=== PATIENT | male | born 1945 | race Caucasian/White ===

== ENCOUNTER 2018-03-07 22:38 | Observation (INO) | payer OTHER ==
[2018-03-07 23:51] LABS: Absolute Lymphocytes (CBC) 1.3 K/uL (0.7-4.9); Absolute Monocytes 0.5 K/uL (0.1-1.3); Absolute Neutrophil 2.6 K/uL (1.8-8.0); Basophils % 0.7 % (0-1.3); Eosinophils % 1.9 % (0-4.4); Hematocrit 25.1 % (39.6-49.0); MCH 34.1 pg (27.0-35.0); MPV 9.4 fL (7.6-11.3); Monocytes % 10.4 % (3.3-12.3); RBC Red Blood Cell Count 2.51 M/uL (4.33-5.43)
--- NOTE | 2018-03-08 01:23 | EDPHYS ---
Physician Documentation [facility] Name: Zbigniew Mitchell Age: 72 yrs Sex: Male : 1945 Arrival Date: 03/07/2018 Time: 22:43 Bed 17 Private MD: ED Physician Shakir Medley HPI: 03/08 01:12 This 72 yrs old Male presents to ER via EMS with unknown complaint. gs 01:12 The patient or guardian reports pain, swelling. sustained from a fall, The patient is gs able to self ambulate. The patient is able to bear their full body weight. The complaints affect the left hip. Onset: The symptoms/episode began/occurred 2 day(s) ago. Modifying factors: the symptoms are aggravated by any movement. Associated signs and symptoms: Pertinent negatives: abdominal pain, headache. Severity of symptoms: At their worst the symptoms were moderate, in the emergency department the symptoms are unchanged. Historical: - Allergies: 03/07 23:05 No Known Allergies; fc - Home Meds: 23:05 acetaminophen 325 mg Oral tab 2 tabs q6hrs prn [Active]; Actonel 35 mg Oral tab 1 tab fc once wkly [Active]; Aricept 10 mg Oral tab 1 tab nightly [Active]; aspirin 81 mg oral chew 1 tab once daily [Active]; Depakote ER 500 mg Oral Tb24 2 tabs nightly [Active]; Depakote ER 500 mg Oral Tb24 1 tab once daily [Active]; Dilantin 100 mg Oral 2 tab twice a day [Active]; Eliquis 2.5 mg oral tab 1 tab 2 times per day [Active]; [place] 5-325 mg Oral tab 1 tab three times a day [Active]; Imodium Oral 2 mg as needed [Active]; lactulose 10 gram/15 mL Oral soln q day prn [Active]; metoprolol tartrate 50 mg Oral tab 1 tab once daily [Active]; Miralax 17 gram Oral pwpk 1 packet once daily [Active]; Mobic 7.5 mg oral tab 1 tab once daily [Active]; Neurontin 100 mg Oral cap nightly [Active]; Norvasc 2.5 mg Oral tab 1 tab twice a day [Active]; Protonix 40 mg oral TbEC 1 tab once daily [Active]; Seroquel 50 mg Oral tab 1 tab nightly [Active]; simvastatin 40 mg Oral tab 1 tab nightly [Active]; Synthroid 150 mcg Oral tab 1 tab once daily [Active]; acetaminophen-codeine 300-30 mg Oral tab 1 tab q 6hrs prn [Active]; Vitamin D Oral 2000 unit daily [Active]; - PMHx: 23:05 Dementia; 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 - Social history:: Smoking status: Patient/guardian denies using tobacco. - Ebola Screening: : Patient negative for fever greater than or equal to 101.5 degrees Fahrenheit, and additional compatible Ebola Virus Disease symptoms Patient denies exposure to infectious person Patient denies travel to an Ebola-affected area in the 21 days before illness onset. ROS: 03/08 01:12 All other systems are negative. gs Exam: 01:12 Head/Face: Normocephalic, atraumatic. Eyes: Pupils equal round and reactive to light, gs extra-ocular motions intact. Lids and lashes normal. Conjunctiva and sclera are non-icteric and not injected. Cornea within normal limits. Periorbital areas with no swelling, redness, or edema. ENT: Nares patent. No nasal discharge, no septal abnormalities noted. Tympanic membranes are normal and external auditory canals are clear. Oropharynx with no redness, swelling, or masses, exudates, or evidence of obstruction, uvula midline. Mucous membranes moist. Neck: Trachea midline, no thyromegaly or masses palpated, and no cervical lymphadenopathy. Supple, full range of motion without nuchal rigidity, or vertebral point tenderness. No Meningismus. Chest/axilla: Normal chest wall appearance and motion. Nontender with no deformity. No lesions are appreciated. Cardiovascular: Regular rate and rhythm with a normal S1 and S2. No gallops, murmurs, or rubs. Normal PMI, no JVD. No pulse deficits. Respiratory: Lungs have equal breath sounds bilaterally, clear to auscultation and percussion. No rales, rhonchi or wheezes noted. No increased work of breathing, no retractions or nasal flaring. Abdomen/GI: Soft, non-tender, with normal bowel sounds. No distension or tympany. No guarding or rebound. No evidence of tenderness throughout. Back: No spinal tenderness. No costovertebral tenderness. Full range of motion. Skin: Warm, dry with normal turgor. Normal color with no rashes, no lesions, and no evidence of cellulitis. Neuro: Awake and alert, GCS 15, oriented to person, place, time, and situation. Cranial nerves II-XII grossly intact. Motor strength 5/5 in all extremities. Sensory grossly intact. Cerebellar exam normal. Normal gait. 01:12 Constitutional: The patient appears alert, awake, pale. 01:12 Musculoskeletal/extremity: Joints: the left hip displays swelling, tenderness, ecchymosis. Vital Signs: 03/07 22:45 Weight 99.79 kg (R); Height 5 ft. 7 in. (170.18 cm) (R); Pain 6/10; fc 23:00 BP 116 / 62; Pulse 71; Resp 16 S; Temp 97.7(O); Pulse Ox 99% on R/A; jd3 03/08 00:36 BP 120 / 72; Pulse 72; Resp 17 S; Pulse Ox 100% on R/A; jd3 02:09 BP 116 / 99; Pulse 73; Resp 17 S; Pulse Ox 98% on R/A; jd3 03/07 22:45 Body Mass Index 34.46 (99.79 kg, 170.18 cm) fc MDM: 03/07 23:10 Patient medically screened. 03/08 01:12 Differential diagnosis: hip fracture, pelvic, fx hematoma, blood loss anemia. Data reviewed: vital signs, nurses notes. Response to treatment: the patient's symptoms have mildly improved after treatment, and as a result, I will admit patient. 01:23 ED course: will admit obs serial hb.. 03/07 23:10 Order name: CBC with Diff; Complete Time: 23:54 03/07 23:10 Order name: CT Pelvis wo Cont 03/07 23:10 Order name: Femur Left XRAY 03/08 01:06 Order name: CT Head Brain wo Cont Administered Medications: No medications were administered Disposition: 03/08/18 01:23 Hospitalization ordered by Jessika Nguyen for Observation. Preliminary diagnosis is Traumatic secondary and recurrent hemorrhage and seroma. - Bed requested for Telemetry/MedSurg (observation). - Status is Observation. jd3 - Condition is Stable. - Problem is new. - Symptoms are unchanged. UTI on Admission? No Signatures: Dispatcher [employer] EDMS Vin Cotto rg2 Christine Mccann RN RN Shakir Medley MD MD Warren Balderas RN RN jd3 Corrections: (The following items were deleted from the chart) 02:42 01:23 Hospitalization Ordered by Jessika Nguyen MD for Observation. Preliminary rg2 diagnosis is Traumatic secondary and recurrent hemorrhage and seroma. Bed requested for Telemetry/MedSurg (observation). Status is Observation. Condition is Stable. Problem is new. Symptoms are unchanged. UTI on Admission? No. 03:11 02:42 03/08/2018 01:23 Hospitalization Ordered by Jessika Nguyen MD for Observation. jd3 Preliminary diagnosis is Traumatic secondary and recurrent hemorrhage and seroma. Bed requested for Telemetry/MedSurg (observation). Status is Observation. Condition is Stable. Problem is new. Symptoms are unchanged. UTI on Admission? No. rg2
--- NOTE | 2018-03-08 01:23 | ER ---
Nurse's Notes [facility] Name: Zbigniew Mitchell Age: 72 yrs Sex: Male : 1945 Arrival Date: 03/07/2018 Time: 22:43 Bed 17 Private MD: Diagnosis: Traumatic secondary and recurrent hemorrhage and seroma Presentation: 03/07 22:45 Method Of Arrival: EMS: [facility] 22:45 Transition of care: patient was received from another setting of care (long-term care facility), [facility]. Onset of symptoms was March 05, 2018. Risk Assessment: Do you want to hurt yourself or someone else? Patient reports no desire to harm self or others. Initial Sepsis Screen: Does the patient meet any 2 criteria? No. Patient's initial sepsis screen is negative. Does the patient have a suspected source of infection? No. Patient's initial sepsis screen is negative. Care prior to arrival: None. 22:45 Acuity: ANDRE 4 22:45 Presenting complaint: EMS states: that the pt feel 2-3 days ago and hurt his left hip. fc The senior living xray'd it and it was negative. Pt continues to have pain and bruising so he was sent here for evaluation. Historical: - Allergies: 23:05 No Known Allergies; fc - Home Meds: 23:05 acetaminophen 325 mg Oral tab 2 tabs q6hrs prn [Active]; Actonel 35 mg Oral tab 1 tab fc once wkly [Active]; Aricept 10 mg Oral tab 1 tab nightly [Active]; aspirin 81 mg oral chew 1 tab once daily [Active]; Depakote ER 500 mg Oral Tb24 2 tabs nightly [Active]; Depakote ER 500 mg Oral Tb24 1 tab once daily [Active]; Dilantin 100 mg Oral 2 tab twice a day [Active]; Eliquis 2.5 mg oral tab 1 tab 2 times per day [Active]; [place] 5-325 mg Oral tab 1 tab three times a day [Active]; Imodium Oral 2 mg as needed [Active]; lactulose 10 gram/15 mL Oral soln q day prn [Active]; metoprolol tartrate 50 mg Oral tab 1 tab once daily [Active]; Miralax 17 gram Oral pwpk 1 packet once daily [Active]; Mobic 7.5 mg oral tab 1 tab once daily [Active]; Neurontin 100 mg Oral cap nightly [Active]; Norvasc 2.5 mg Oral tab 1 tab twice a day [Active]; Protonix 40 mg oral TbEC 1 tab once daily [Active]; Seroquel 50 mg Oral tab 1 tab nightly [Active]; simvastatin 40 mg Oral tab 1 tab nightly [Active]; Synthroid 150 mcg Oral tab 1 tab once daily [Active]; acetaminophen-codeine 300-30 mg Oral tab 1 tab q 6hrs prn [Active]; Vitamin D Oral 2000 unit daily [Active]; - PMHx: 23:05 Dementia; 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 - Social history:: Smoking status: Patient/guardian denies using tobacco. - Ebola Screening: : Patient negative for fever greater than or equal to 101.5 degrees Fahrenheit, and additional compatible Ebola Virus Disease symptoms Patient denies exposure to infectious person Patient denies travel to an Ebola-affected area in the 21 days before illness onset. Screenin:51 Abuse screen: Denies threats or abuse. Nutritional screening: No deficits noted. fc Tuberculosis screening: No symptoms or risk factors identified. Fall Risk Fall in past 12 months (25 points). Secondary diagnosis (15 points) dementia, No IV (0 pts). Ambulatory Aid- Crutches/Cane/Walker (15 pts). Gait- Weak (10 pts.). Mental Status- Overestimates/Forgets Limitations (15 pts.). Total Aleman Fall Scale indicates High Risk Score (45 or more points). Fall prevention measures have been instituted. Side Rails Up X 2 Placed Close to Nursing Station Frequent Obs/Assessments Occuring As available patient and family educated on Fall Prevention Program and Strategies. Assessment: 22:43 General: Appears in no apparent distress. uncomfortable, Behavior is calm, cooperative, jd3 appropriate for age. Pain: Complains of pain in left elbow, left hip and lateral aspect of left thigh Quality of pain is described as aching, tender, Is continuous. Neuro: Level of Consciousness is awake, alert, obeys commands, Oriented to person, place, time, situation. Cardiovascular: Heart tones S1 S2 present Capillary refill < 3 seconds Patient's skin is warm and dry. Respiratory: Airway is patent Respiratory effort is even, unlabored, Respiratory pattern is regular, symmetrical, Breath sounds are clear bilaterally. GI: Abdomen is round Bowel sounds present X 4 quads. Abd is soft and non tender X 4 quads. Patient currently denies nausea, vomiting. : No signs and/or symptoms were reported regarding the genitourinary system. EENT: No signs and/or symptoms were reported regarding the EENT system. Derm: Skin is intact, Skin is dry, Skin is normal, Skin temperature is warm Bruising that is dark purple, on left hip and lateral aspect of left thigh. Musculoskeletal: Circulation, motion, and sensation intact. Range of motion: limited in left hip. 03/08 00:20 Reassessment: Patient appears in no apparent distress at this time. Patient and/or jd3 family updated on plan of care and expected duration. Pain level reassessed. Patient is alert, oriented x 3, equal unlabored respirations, skin warm/dry/pink. 02:14 Reassessment: Patient appears in no apparent distress at this time. Patient and/or jd3 family updated on plan of care and expected duration. Pain level reassessed. Patient is alert, oriented x 3, equal unlabored respirations, skin warm/dry/pink. Vital Signs: 03/07 22:45 Weight 99.79 kg (R); Height 5 ft. 7 in. (170.18 cm) (R); Pain 6/10; 23:00 BP 116 / 62; Pulse 71; Resp 16 S; Temp 97.7(O); Pulse Ox 99% on R/A; d3 03/08 00:36 BP 120 / 72; Pulse 72; Resp 17 S; Pulse Ox 100% on R/A; jd3 02:09 BP 116 / 99; Pulse 73; Resp 17 S; Pulse Ox 98% on R/A; jd3 03/07 22:45 Body Mass Index 34.46 (99.79 kg, 170.18 cm) ED Course: 03/07 22:43 Patient arrived in ED. [facility] 22:45 Arm band placed on Patient placed in an exam room, on a stretcher. fc 22:50 Triage completed. fc 22:52 Patient has correct armband on for positive identification. Placed in gown. Bed in low fc position. Call light in reach. Side rails up X2. 22:58 Warren Balderas RN is Primary Nurse. jd3 23:05 Shakir Medley MD is Attending Physician. 23:59 CT Pelvis wo Cont In Process Unspecified. EDMS 23:[address] via stretcher. kw1 08 00:00 Patient moved to radiology via stretcher. kw1 00:00 X-ray completed. Patient tolerated procedure well. Patient moved back from radiology. kw1 00:02 Femur Left XRAY In Process Unspecified. EDMS 01:16 Jessika Nguyen MD is Hospitalizing Provider. gs 01:[address] via stretcher. kw1 01:40 CT completed. Patient tolerated procedure well. Patient moved back from CT. kw1 01:42 CT Head Brain wo Cont In Process Unspecified. EDMS 02:52 No provider procedures requiring assistance completed. Patient did not have IV access jd3 during this emergency room visit. Administered Medications: No medications were administered Outcome: 01:23 Decision to Hospitalize by Provider. 02:52 Admitted to Tele accompanied by tech, via stretcher, room 410, with chart, Report shaneka called to Daphney COHEN 02:52 Condition: stable 02:52 Instructed on the need for admit, Demonstrated understanding of instructions. 03:11 Patient left the ED. jclaudia Signatures: Dispatcher [employer] EDOR Christine Mccann RN RN Shakir Medley MD MD Warren Balderas RN RN jNorma Escoto kw1 Corrections: (The following items were deleted from the chart) 03/07 22:53 22:45 Transition of care: patient was not received from another setting of care. [facility] 22:59 22:43 Derm: Skin is intact, Skin is dry, Skin is normal, Skin temperature is warm jd3 Bruising that is on left hip and lateral aspect of left thigh jd3
[2018-03-08] MEDS ORDERED: ONDANSETRON 4 MG/2 ML VIAL IV PRN (02:38)
[2018-03-08] MEDS ORDERED: MORPHINE 2 MG/ML SYR IV PRN (02:38)
[2018-03-08] MEDS ORDERED: ACETAMINOPHEN 500 MG TAB PO PRN (02:38)
[2018-03-08 04:01] LABS: Absolute Lymphocytes (CBC) 1.3 K/uL (0.7-4.9); Absolute Monocytes 0.5 K/uL (0.1-1.3); Absolute Neutrophil 2.5 K/uL (1.8-8.0); Basophils % 0.7 % (0-1.3); Eosinophils % 2.1 % (0-4.4); Hematocrit 24.3 % (39.6-49.0); Lymphocytes % 30.5 % (15.3-44.8); MCH 35.2 pg (27.0-35.0); MCV 99.6 fL (80-100); MPV 9.3 fL (7.6-11.3); Monocytes % 10.4 % (3.3-12.3); RBC Red Blood Cell Count 2.44 M/uL (4.33-5.43)
[2018-03-08 04:02] LABS: Protime INR 1.05
[2018-03-08 04:10] LABS: Albumin 2.8 g/dL (3.4-5.0); Bilirubin Total 0.3 mg/dL (0.2-1.0); Potassium 4.9 mmol/L (3.5-5.1)
[2018-03-08 04:55] VITALS: BMI 34.4
[2018-03-08] MEDS: NA CHLORIDE 0.9% 1,000 ML IV SCH ×2 (04:55→16:52)
[2018-03-08 05:07] LABS: Urine Appearance CLEAR; Urine Bilirubin NEGATIVE (NEG); Urine Blood NEGATIVE (NEG); Urine Color YELLOW; Urine Glucose NEGATIVE (NEG); Urine Protein NEGATIVE (NEG); Urine Specific Gravity 1.015 (1.005-1.030); Urine Urobilinogen 0.2 mg/dL (0.2-1.0)
[2018-03-08 05:10] LABS: Urine Microscopic Reflex NO UMIC
[2018-03-08] MEDS: LEVOTHYROXINE SOD 0.075 MG TAB PO SCH ×2 (06:00→06:39)
--- NOTE | 2018-03-08 06:50 | RAD REPORT ---
EXAM DESCRIPTION: CT - Pelvis Wo Cont - 03/07/2018 11:59 pm CLINICAL HISTORY: Fall, left-sided hip pain COMPARISON: CT imaging December 2016. TECHNIQUE: Axial 5 mm thick images of the pelvis were obtained with sagittal and coronal reformatted images generated and reviewed. FINDINGS: In the lateral subcutaneous fat adjacent to the left greater trochanter there is an 12 x 8 x 5 centimeter hematoma. Additional contusion or edema changes seen throughout the subcutaneous fatt y tissues of the left side pelvis. No intramuscular hematoma. Left-sided gluteus tae muscle is ed ematous relative to the right. No hematoma or mass within the central pelvis. No free air or free fluid. Radiopaque tubing is presen t in the pelvis. This is part of a lap band that is not fully imaged on this examination. Arterial ca lcifications are present. No pelvis or proximal femur fracture identifiable. Patient has bilateral hip joint degenerative vivas e. Pattern is not substantially different from the December 2016 examination. Significant SI joint degene rative changes are present. Patient has severe L5-S1 facet joint degenerative change. There is signif icant L4-5 disc and endplate degenerative change. Degenerative gas is present in the L5-S1 disc space . No pathologic bone process. IMPRESSION: Large 12 x 8 x 5 cm hematoma with surrounding edema and contusion lateral to the left hi p joint. No pelvis or femur fracture identified. Patient has advanced lower lumbar degenerative change and mod erate SI joint degenerative change not substantially different from comparison.
--- NOTE | 2018-03-08 07:05 | RAD REPORT ---
EXAM DESCRIPTION: CT - Head Brain Wo Cont - 03/08/2018 1:42 am CLINICAL HISTORY: Fall, head injury A preliminary written report was provided at the time of the study, and the report was reviewed prio r to final dictation. COMPARISON: CT head September 2013 TECHNIQUE: Axial 5 mm thick images of the head were obtained without IV contrast. All CT scans are performed using dose optimization technique as appropriate and may include automated exposure control or mA/KV adjustment according to patient size. FINDINGS: No intracranial hemorrhage, mass, edema or shift of mid-line structures. No acute infarcti on changes seen. No cortical edema or sulcal effacement. Chronic ischemic changes are minimal. Atroph y is mild to moderate. Patient has ventriculomegaly out of proportion to the volume loss. There is a 3 centimeter cyst of the velum interpositum. A midline and right side craniectomy defects seen. No ac tive process at this site. Appearance is stable from 2013. Mastoid air cells and visualized portions of the paranasal sinuses are clear. No acute bony findings. IMPRESSION: No hemorrhage or emergent intracranial finding. Ventriculomegaly is present, out of proportion to the volume loss. Pattern is stable from 2013. Corre lation can be made with any normal pressure hydrocephalus clinical presentation. Overall, no significant change from 2014.
--- NOTE | 2018-03-08 07:46 | P.HP ---
Certification for Inpatient Patient admitted to: Observation With expected LOS: <2 Midnights Patient will require the following post-hospital care: None Practitioner: I am a practitioner with admitting privileges, knowledge of patient current condition, hospital course, and medical plan of care. Services: Services provided to patient in accordance with Admission requirements found in Title 42 Section 412.3 of the Code of Federal Regulations Patient History Date of Service: 03/08/18 Reason for admission: hematoma of the left hip History of Present Illness: Patient is a 72-year-old gentleman who came into the hospital after falling at [facility] about 48-72 hours ago. Since suffering the fall patient has been having bruising and discoloration around the left hip. Patient had x-rays performed which did not reveal a fracture. However, since of bruising and pain was worsening [facility] wanted to have a closer assessment performed. They sent him to the emergency room for further evaluation. In the emergency room, patient's x-ray did not reveal a new fracture. However, patient did have a large hematoma. The CT scan findings indicated a large 12 x 8 x 5 cm hematoma with surrounding edema and contusion lateral to the left hip joint. patient had been on Eliquis as well as aspirin. Patient has Alzheimer's dementia and is not really able to tell me exactly why this was started. On review of his medical records he has a history of atrial fibrillation with rapid ventricular response. Additional medical issues include hypertension, hypothyroidism, seizure disorder, depression, bipolar disorder, and chronic constipation. 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 Will continue him on his home medications and will have Orthopedic evaluate him. He may be able to go home later today depending on their evaluation. Allergies Penicillins Allergy (Verified 03/08/18 05:00) Anaphylaxis rabies bat serum Allergy (Uncoded 01/22/15 14:28) Rash Home Medications: Apixaban [Eliquis] 5 mg PO BID 01/22/15 Aspirin [Aspirin EC] 81 mg PO DAILY 01/22/15 Divalproex Sodium [Depakote ER] 1,000 mg PO BEDTIME 01/22/15 Divalproex [Depakote Sprinkle] 250 mg PO DAILY 01/22/15 Furosemide [Lasix] 60 mg PO DAILY 01/22/15 Lactulose 10 gm PO DAILY 01/22/15 Levothyroxine [Synthroid] 150 mcg PO [id number] 01/22/15 Meloxicam [Mobic] 15 mg PO DAILY 01/22/15 Metoprolol Tartrate [Lopressor] 50 mg PO DAILY 01/22/15 PHENYTOIN ER Cap [Dilantin ER Cap] 100 mg PO TID 01/22/15 Quetiapine [Seroquel] 100 mg PO DAILY 01/22/15 Sulfamethoxazole/Trimethoprim [Bactrim Ds Tablet] 1 each PO BID #10 tablet 01/23 Tramadol HCl/Acetaminophen [Ultracet Tablet] 1 each PO Q4H PRN #20 tablet - Past Medical/Surgical History Has patient received pneumonia vaccine in the past: No Diabetic: No -: Dementia; 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; cervicalgia; Chronic pain; constipation -: Atrial Fib; frequent falls; osteoarthritis -: Bronchitis; Hyperlipidemia; Bipolar disorder; encephalopathy; Diverticuliti -: Hypertension; Hypothyroidism; Seizures; Depression Past Surgical History: Unable to obtain - Family History Father Family History: Reviewed- Non-Contributory - Social History Smoking Status: Never smoker Alcohol use: No CD- Drugs: No Caffeine use: Yes Place of Residence: [facility] Review of Systems 10-point ROS is otherwise unremarkable Physical Examination - Vital Signs Temperature: 98.7 F Blood Pressure: 102/57 Pulse: 63 Respirations: 18 Pulse Ox (%): 100 - Physical Exam General: Alert, In no apparent distress, Oriented x3 HEENT: Atraumatic, PERRLA, Mucous membr. moist/pink, EOMI, Sclerae nonicteric Neck: Supple, 2+ carotid pulse no bruit, No LAD, Without JVD or thyroid abnormality Respiratory: Clear to auscultation bilaterally, Normal air movement Cardiovascular: Regular rate/rhythm, Normal S1 S2, No murmurs Gastrointestinal: Normal bowel sounds, Soft and benign, Non-distended, No tenderness Musculoskeletal: No clubbing, No swelling, No tenderness Integumentary: No rashes Neurological: Normal gait, Normal speech, Normal strength at 5/5 x4 extr, Normal tone, Sensation intact, Cranial nerves 3-12 intact, Normal affect Lymphatics: No axilla or inguinal lymphadenopathy - Studies Laboratory Data (last 24 hrs) 03/07/18 23:24: WBC 4.5, Hgb 8.6 L, Hct 25.1 L, Plt Count 152 Assessment & Plan - Problems (Diagnosis) (1) Traumatic hematoma of left hip Current Visit: Yes Status: Acute (2) Status post fall Current Visit: Yes Status: Acute (3) History of hypertension Current Visit: Yes Status: Acute (4) Alzheimer's dementia Current Visit: Yes Status: Acute (5) History of seizure disorder Current Visit: Yes Status: Acute - Plan Plan: 1. Monitor H&H 2. Orthopedic consultation 3. Pain control 4. physical therapy evaluation after orthopedic evaluation 5. hold Eliquis and aspirin for the next 48-72 hours 6. May need to consult Cardiology to see if this is something that patient needs to continue as he has a history of multiple falls. This is listed in his records that he has fallen numerous times and my concern is that while he is on the Eliquis he has the high risk of severe injury and life-threatening of bleed. Will consult Cardiology and discuss the case with them as well. 7. GI and DVT prophylaxis Discharge Plan: Home Plan to discharge in: 48 Hours - Advance Directives Does patient have a Living Will: No Does patient have a Durable POA for Healthcare: No - Code Status/Comfort Care Code Status Assessed: Yes Code Status: Full Code Critical Care: No Time Spent Managing PTS Care (In Minutes): 50
[2018-03-08] MEDS ORDERED: PNEUMOCOCCAL VACCINE 0.5 ML IMVAC ONE (08:00)
--- NOTE | 2018-03-08 08:31 | RAD REPORT ---
EXAM DESCRIPTION: RAD - Femur Left - 03/08/2018 12:01 am CLINICAL HISTORY: Fall, hip, pelvis and leg pain COMPARISON: None. FINDINGS: No fracture is identified. There is no dislocation or periosteal reaction noted. No acute or suspicious bony finding. Moderate degenerative change present at the hip joint. No pathologic bon e process. Moderately large hematoma is present lateral to the greater trochanter. There is additional contusion or edema in the subcutaneous fatty tissue. IMPRESSION: Moderately large hematoma lateral to the greater trochanter in the subcutaneous fat. Degenerative changes at the hip joint. No fracture or acute finding.
[2018-03-08] MEDS: METOPROLOL TAR 50 MG TAB PO SCH (09:00)
[2018-03-08] MEDS ORDERED: DIVALPROEX NA 125 MG CAP PO SCH (09:00)
[2018-03-08] MEDS: QUETIAPINE 100MG TAB PO SCH (09:00)
[2018-03-08] MEDS ORDERED: PHENYTOIN ER 100 MG CAP PO SCH (09:00)
[2018-03-08] MEDS ORDERED: LABETALOL HCL 100 MG/20 ML IV PRN (10:19)
[2018-03-08] MEDS: PHENYTOIN NA 100 MG/2 ML IV SCH ×2 (11:18→14:08)
[2018-03-08] MEDS ORDERED: ATORVASTATIN 20 MG TAB PO SCH (21:00)
[2018-03-08] MEDS ORDERED: VALPROATE SODIUM INJ 1,000 MG in NA CHLORIDE 0.9% 100 ML IV SCH (21:00)
[2018-03-08] MEDS ORDERED: DONEPEZIL HCL 5 MG TAB PO SCH (21:00)
[2018-03-08] MEDS ORDERED: DIVALPROEX ER 250 MG TAB PO SCH (21:00)
[2018-03-08] MEDS ORDERED: GABAPENTIN 100 MG CAP PO SCH (21:00)
[2018-03-08] MEDS: PHENYTOIN ER 100 MG CAP PO SCH (22:37)
[2018-03-08] MEDS: HYDROCODONE/APAP 5/325 MG TAB PO SCH (22:37)
[2018-03-08] MEDS: AMLODIPINE 2.5 MG TAB PO SCH (22:38)
[2018-03-09] MEDS ORDERED: TEMAZEPAM 15 MG CAP PO ONE (01:00)
--- NOTE | 2018-03-09 02:11 | CON ---
Date of Consultation: 03/08/2018 Reason For Consultation: Left hip pain and swelling. History Of Present Illness: Zbigniew is a 72-year-old male, who presented to the ER last night with c omplaints of pain and swelling to his left hip. The patient had x-rays which were negative for any f racture dislocation. The patient did have a CAT scan which demonstrated a hematoma over his left lat eral thigh. He denies any fever or chills. However, history is poor secondary to dementia. He does not recall when the pain or swelling began. Review of Systems: As above, otherwise negative. Past Medical History: Includes dementia, atrial fibrillation, seizures, bipolar disorder, hypertensi on, and hyperlipidemia. Family History: Reviewed and noncontributory. Medications: Includes Eliquis. Allergies: TO PENICILLIN. Physical Examination: General: No apparent distress. HEENT: Normocephalic, atraumatic. Neck: Supple. Cardiovascular: Brisk cap refill to all digits. Chest: Nonlabored breathing. Abdomen: Nondistended. Musculoskeletal: Left lower extremity, he does have some ecchymosis over the lateral hip. No erythe ma or signs of infection. No warmth. Minimal tenderness to palpation. No pain with range of motion of the left hip. Moves toes and ankle grossly distally. Imaging: X-rays of the left hip are negative for any fracture, dislocation. CAT scan demonstrates a hematoma just lateral to the greater trochanter. Laboratory Data: White count 4.4, hemoglobin 8.6, hematocrit 24.3, and platelets are 143. PT is 12. 4, INR 1.05. Assessment And Plan: Mr. Mitchell is a 72-year-old male with a left hip hematoma. At this point, there a re no signs of infection. He has a normal white count and he is afebrile. I recommend continued obs ervation. If he has continued swelling or if his hemoglobin drops, he may need to stop his anticoagu lation. He may be weightbearing as tolerated and may follow up in my clinic in 2 weeks for re-evalua tion. CV/MODL Voice ID: [id number] Report ID: [id number]
[2018-03-09] MEDS: LEVOTHYROXINE SOD 0.075 MG TAB PO SCH (05:38)
[2018-03-09] MEDS: NA CHLORIDE 0.9% 1,000 ML IV SCH (05:39)
[2018-03-09] MEDS ORDERED: PANTOPRAZOLE 40MG TABLET PO SCH (06:30)
[2018-03-09] MEDS ORDERED: HOME MED 1 EA UNK (Divalproex Sodium [Depakote Er] 500 MG) PO SCH (09:00)
[2018-03-09] MEDS ORDERED: VALPROATE SODIUM INJ 250 MG in NA CHLORIDE 0.9% 100 ML IV SCH (09:00)
[2018-03-09 09:25] VITALS: TEMP 97.7
[2018-03-09] MEDS: PHENYTOIN ER 100 MG CAP PO SCH (10:30)
[2018-03-09] MEDS: QUETIAPINE 100MG TAB PO SCH (10:31)
[2018-03-09] MEDS: AMLODIPINE 2.5 MG TAB PO SCH (10:31)
[2018-03-09] MEDS: HYDROCODONE/APAP 5/325 MG TAB PO SCH (10:31)
[2018-03-09] MEDS: METOPROLOL TAR 50 MG TAB PO SCH (10:32)
[2018-03-09 12:09] VITALS: BP 95/48
[2018-03-09 12:20] VITALS: O2SAT 97
--- NOTE | 2018-03-09 14:26 | P.SSS ---
Patient History Date of Service: 03/09/18 Reason for admission: hematoma of the left hip History of Present Illness: Patient is a 72-year-old gentleman who came into the hospital after falling at [facility] about 48-72 hours ago. Since suffering the fall patient has been having bruising and discoloration around the left hip. Patient had x-rays performed which did not reveal a fracture. However, since of bruising and pain was worsening [facility] wanted to have a closer assessment performed. They sent him to the emergency room for further evaluation. In the emergency room, patient's x-ray did not reveal a new fracture. However, patient did have a large hematoma. The CT scan findings indicated a large 12 x 8 x 5 cm hematoma with surrounding edema and contusion lateral to the left hip joint. patient had been on Eliquis as well as aspirin. Patient has Alzheimer's dementia and is not really able to tell me exactly why this was started. On review of his medical records he has a history of atrial fibrillation with rapid ventricular response. Additional medical issues include hypertension, hypothyroidism, seizure disorder, depression, bipolar disorder, and chronic constipation. 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 Will continue him on his home medications and will have Orthopedic evaluate him. He may be able to go home later today depending on their evaluation. Allergies Penicillins Allergy (Verified 03/08/18 05:00) Anaphylaxis rabies bat serum Allergy (Uncoded 01/22/15 14:28) Rash Home Medications: Apixaban [Eliquis] 2.5 mg PO BID 01/22/15 Aspirin [Aspirin EC 81 MG] 81 mg PO DAILY 01/22/15 Divalproex Sodium [Depakote ER] 1,000 mg PO BEDTIME 01/22/15 Levothyroxine [Synthroid*] 150 mcg PO [id number] 01/22/15 Meloxicam [Mobic] 7.5 mg PO DAILY 01/22/15 Metoprolol Tartrate [Lopressor*] 50 mg PO DAILY 01/22/15 Quetiapine [Seroquel*] 50 mg PO BEDTIME 01/22/15 Acetaminophen [Pain Relief] 2 tab PO Q6H PRN 03/08/18 Amlodipine [Norvasc*] 2.5 mg PO BID 03/08/18 Divalproex Sodium [Depakote ER] 500 mg PO DAILY 03/08/18 Donepezil [Aricept*] 10 mg PO BEDTIME 03/08/18 Gabapentin [Neurontin*] 100 mg PO BEDTIME 03/08/18 Hydrocodone Bit/Acetaminophen [Hydrocodon-Acetaminophen 5-325] 1 tab PO TID PHENYTOIN ER Cap [Dilantin ER Cap*] 2 cap PO BID 03/08/18 Pantoprazole Sodium [Protonix] 40 mg PO DAILY 03/08/18 Risedronate Sodium [Actonel*] 35 mg PO EVERY 7TH DAY 03/08/18 Simvastatin 40 mg PO BEDTIME 03/08/18 - Past Medical/Surgical History Has patient received pneumonia vaccine in the past: No Diabetic: No -: Dementia; 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; cervicalgia; Chronic pain; constipation -: Atrial Fib; frequent falls; osteoarthritis -: Bronchitis; Hyperlipidemia; Bipolar disorder; encephalopathy; Diverticuliti -: Hypertension; Hypothyroidism; Seizures; Depression - Social History Smoking Status: Never smoker Alcohol use: No CD- Drugs: No Caffeine use: Yes Place of Residence: [facility] Review of Systems General: As per HPI Physical Examination - Vital Signs Temperature: 97.7 F Blood Pressure: 95/48 Pulse: 75 Respirations: 17 Pulse Ox (%): 97 - Physical Exam General: Alert, In no apparent distress HEENT: Atraumatic, PERRLA, Mucous membr. moist/pink, EOMI, Sclerae nonicteric Neck: Supple, 2+ carotid pulse no bruit, No LAD, Without JVD or thyroid abnormality Respiratory: Clear to auscultation bilaterally, Normal air movement Cardiovascular: Regular rate/rhythm, Normal S1 S2 Gastrointestinal: Normal bowel sounds, No tenderness Musculoskeletal: No tenderness Integumentary: No rashes Neurological: Normal gait, Normal speech, Normal strength at 5/5 x4 extr, Normal tone, Normal affect Lymphatics: No axilla or inguinal lymphadenopathy - Diagnosis (Problem(s)) (1) Traumatic hematoma of left hip Onset Date: 03/08/18 Status: Acute (2) Status post fall Onset Date: 03/08/18 Status: Acute (3) Alzheimer's dementia Onset Date: 03/08/18 Status: Acute (4) History of hypertension Onset Date: 03/08/18 Status: Acute (5) History of seizure disorder Onset Date: 03/08/18 Status: Acute Treatment Summary: Overall during hospital stay patient remained stable. Patient was initially admitted to the hospital status post fall. Patient had traumatic hematoma of the hip. Orthopedic surgery was consulted. Who stated that we just monitor patient's H&H nothing surgical at this point. Patient did mention H remained stable and thus patient was discharged at that time. Under stable condition. Patient was sent back to the custodial. Was asked to follow up with orthopedics in about 1-2 weeks post discharge. - Disposition Disposition: ROUTINE DISCHARGE Condition: GOOD Patient Discharge Instructions: Please F.u with PCP in 1 to 2 week post discharge. You will need to get H/H done in 3 days to ensure your Hgb is not getting worse. Diet: Regular Activity: Ad thierry
[2018-03-14] MEDS ORDERED: RISEDRONATE SODIUM 35 MG TAB PO SCH (09:00)
== END 2018-03-09 13:07 ==
LOC: ER 22:38 → ERHOLD 03-08 02:23 → 4TH 03-08 02:48
PROVIDERS: ADMIT Hospitalist; ATTEND Hospitalist
DX: S70.02XA Contusion of left hip, initial encounter (principal); W18.30XA Fall on same level, unspecified, initial encounter; Y92.199 Unspecified place in other specified residential institution as the place of occurrence of the external cause; G30.9 Alzheimer's disease, unspecified; F02.80 Dementia in other diseases classified elsewhere, unspecified severity, without behavioral disturbance, psychotic disturbance, mood disturbance, and anxiety; I48.91 Unspecified atrial fibrillation; I10 Essential (primary) hypertension; E03.9 Hypothyroidism, unspecified; G40.909 Epilepsy, unspecified, not intractable, without status epilepticus; F31.9 Bipolar disorder, unspecified; Z88.0 Allergy status to penicillin; Z79.82 Long term (current) use of aspirin
CPT/HCPCS: 36415; 70450; 72192; 73552; 80053; 81003; 85025 ×2; 85610; 85730; 86850; 86900; 86901; 99285; G0378 ×2; J1165 ×2; J2270; J2405; J7030 ×3

== ENCOUNTER 2019-10-19 19:25 | Emergency (ER) | payer OTHER ==
--- NOTE | 2019-10-19 19:56 | RAD REPORT ---
EXAM DESCRIPTION: CT - [id number] - 10/19/2019 7:45 pm CLINICAL HISTORY: Trauma, head and neck injury. TRAUMA COMPARISON: No comparisons TECHNIQUE: Axial 5 mm thick images of the head were obtained. Axial 2 mm thick images of the cervical spine were obtained with sagittal and coronal reconstruction images generated and reviewed. All CT scans are performed using dose optimization technique as appropriate and may include automated exposure control or mA/KV adjustment according to patient size. FINDINGS: CT HEAD WITHOUT CONTRAST: No acute hemorrhage, hydrocephalus or extra-axial collection is identified.Moderate brain atrophy.No areas of brain edema or midline shift. The paranasal sinuses and mastoids are clear.Craniectomy changes are present posteriorly. CT CERVICAL SPINE WITHOUT CONTRAST: No fracture or subluxation.Mild multilevel degenerative changes are noted.No prevertebral soft tissue s swelling is identified. IMPRESSION: No acute intracranial or cervical spine findings.
[2019-10-19] MEDS ORDERED: NA CHLORIDE 0.9% 1,000 ML ONE (19:57)
[2019-10-19] MEDS ORDERED: CEFTRIAXONE/SWI 1gm 1 GM/10 ML SYR ONE (19:57)
--- NOTE | 2019-10-19 21:03 | RAD REPORT ---
EXAM DESCRIPTION: RAD - Chest Single View - 10/19/2019 8:54 pm CLINICAL HISTORY: CONGESTION Chest pain. COMPARISON: No comparisons FINDINGS: Portable technique limits examination quality. The lungs are grossly clear. The heart is normal in size. No displaced fractures. IMPRESSION: No acute intrathoracic process suspected.
--- NOTE | 2019-10-19 21:05 | RAD REPORT ---
EXAM DESCRIPTION: RAD - Shoulder Right 2 View - 10/19/2019 8:54 pm CLINICAL HISTORY: PAIN Trauma, pain COMPARISON: Head C Spine Mpr Wo Con dated 10/19/2019 FINDINGS: No fractures appreciated. No evidence of dislocation.
[2019-10-19 21:26] LABS: Absolute Lymphocytes (CBC) 1.2 K/uL (0.7-4.9); Basophils % 0.8 % (0-1.3); Hematocrit 45.8 % (39.6-49.0); Lymphocytes % 17.4 % (15.3-44.8); MPV 7.9 fL (7.6-11.3)
[2019-10-19 21:28] LABS: Blood Morphology Comment NOT SEEN (NOT SEEN); Platelet Estimate ADEQ; Urine White Blood Cell Casts OK
[2019-10-19 21:50] LABS: Protime INR 1.27
[2019-10-19 21:55] LABS: ALT/SGPT 18 U/L (12-78); AST/SGOT 17 U/L (15-37); Albumin 2.4 g/dL (3.4-5.0); Alkaline Phosphatase 95 U/L (45-117); BUN Blood Urea Nitrogen 21 mg/dL (7-18); Bicarbonate 28 mmol/L (21-32); Bilirubin Total 0.3 mg/dL (0.2-1.0); Glucose Level 81 mg/dL (74-106); Potassium 4.3 mmol/L (3.5-5.1); Sodium Level 140 mmol/L (136-145); Troponin (Emerg Dept Use Only) < 0.02 ng/mL (0.0-0.045)
--- NOTE | 2019-10-19 23:20 | ER ---
Nurse's Notes [facility] Name: Zbigniew Mitchell Age: 74 yrs Sex: Male : 1945 Arrival Date: 10/19/2019 Time: 19:30 Bed 8 Private MD: Diagnosis: Fall (on) (from) unspecified stairs and steps Presentation: 10/18 19:22 Care prior to arrival: None. Mechanism of Injury: Fall out of bed. Trauma event rr5 details: Injury occurred in the [facility] [place], Injury occurred: [facility] Injury occurred: October 19, 2019. 19:25 Chief complaint: Patient states: patient form [facility], had a fall episode. seen rr5 on the ground by staff don't know how long he was on the ground. patient has episode of short term memory loss, confused. complaining of neck pain for 3 days and headache for 1 week. on blood thinner (eliquis). BP on the lower side 90/50 mmHg NS 250ml bolus given. 19:25 Coronavirus screen: Patient denies fever greater than 100.4F, cough, shortness of rr5 breath, or difficulty breathing. Proceed with normal triage process. Ebola Screen: Patient negative for fever greater than or equal to 101.5 degrees Fahrenheit, and additional compatible Ebola Virus Disease symptoms Patient denies exposure to infectious person. Patient denies travel to an Ebola-affected area in the 21 days before illness onset. Initial Sepsis Screen: Does the patient meet any 2 criteria? No. Patient's initial sepsis screen is negative. Does the patient have a suspected source of infection? No. Patient's initial sepsis screen is negative. Risk Assessment: Do you want to hurt yourself or someone else? Patient reports no desire to harm self or others. Onset of symptoms was October 19, 2019. Transition of care: patient was received from another setting of care (long-term care facility), [facility]. 19:25 Method Of Arrival: EMS: [facility] rr5 19:25 Acuity: ANDRE 2 rr5 Trauma Activation: Alert Physician: ED Physician; Name: dr. marks; Notified At: 19:22; Arrived At: 19:22 Physician: General Surgeon; Name: ; Notified At: 19:22; Arrived At: Physician: Radiology; Name: janaeshelton valladares; Notified At: 19:22; Arrived At: 19:22 Physician: Respiratory; Name: ; Notified At: 19:22; Arrived At: Physician: Lab; Name: ; Notified At: 19:22; Arrived At: Historical: - Allergies: 20:04 No Known Allergies; rr5 - Home Meds: 19:30 acetaminophen 325 mg Oral tab 2 tabs q6hrs prn [Active]; acetaminophen-codeine 300-30 rr5 mg Oral tab 1 tab q 6hrs prn [Active]; Actonel 35 mg Oral tab 1 tab once wkly [Active]; Aricept 10 mg Oral tab 1 tab nightly [Active]; aspirin 81 mg Oral chew 1 tab once daily [Active]; Depakote ER 500 mg Oral Tb24 2 tabs nightly [Active]; Depakote ER 500 mg Oral Tb24 1 tab once daily [Active]; Dilantin 100 mg Oral 2 tab twice a day [Active]; Eliquis 2.5 mg Oral tab 1 tab 2 times per day [Active]; Imodium Oral 2 mg as needed [Active]; lactulose 10 gram/15 mL Oral soln q day prn [Active]; metoprolol tartrate 50 mg Oral tab 1 tab once daily [Active]; Miralax 17 gram Oral pwpk 1 packet once daily [Active]; Mobic 7.5 mg Oral tab 1 tab once daily [Active]; Neurontin 100 mg Oral cap nightly [Active]; Homeland 5-325 mg Oral tab 1 tab three times a day [Active]; Protonix 40 mg Oral TbEC 1 tab once daily [Active]; Norvasc 2.5 mg Oral tab 1 tab twice a day [Active]; Seroquel 50 mg Oral tab 1 tab nightly [Active]; simvastatin 40 mg Oral tab 1 tab nightly [Active]; Synthroid 150 mcg Oral tab 1 tab once daily [Active]; Vitamin D Oral 2000 unit daily [Active]; - PMHx: 19:30 Atrial Fib; Bipolar disorder; Bronchitis; Cervicalgia; Chronic pain; constipation; 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 - Social history:: Smoking status: unknown Patient/guardian denies using alcohol, street drugs, The patient lives with family. - Immunization history: Last tetanus immunization: unknown. - Family history:: not pertinent. Screenin:25 Fall Risk Fall in past 12 months (25 points). IV access (20 points). Total Aleman Fall rr5 Scale indicates High Risk Score (45 or more points). Fall prevention measures have been instituted. Side Rails Up X 2 Placed Close to Nursing Station Frequent Obs/Assessments Occuring As available patient and family educated on Fall Prevention Program and Strategies. 19:25 Nutritional screening: No deficits noted. rr5 19:35 Abuse screen: Denies threats or abuse. Denies injuries from another. Tuberculosis rr5 screening: No symptoms or risk factors identified. Primary Survey: 19:30 NO uncontrolled hemorrhage observed. rr5 19:30 A: The patient is alert. Airway: patent, No supplemental oxygen in use on arrival. Oral rr5 cavity: clear, gag reflex present, Trachea midline. Breathing/Chest: Respiratory pattern: regular, Respiratory effort: spontaneous, unlabored, Breath sounds: clear, bilaterally. Chest inspection: symmetrical rise and fall of the chest. Circulation: Heart tones present. Pulses: palpable right radial artery, right dorsalis pedis artery, left radial artery and left dorsalis pedis artery. Skin color: pink, Skin temperature: warm, dry. Disability Alert. Exposure/Environment: All clothing and personal items were removed. There is no evidence of uncontrolled external bleeding. Obvious injury(ies) are noted at this time: patient reported neck pain and back pain. A warming method has been applied: A warm blanket has been provided to the patient. 20:30 Reassessment Airway Airway Patent Breathing/Chest Respiratory pattern Regular rr5 Respiratory effort Spontaneous Unlabored Breath sounds Clear Chest inspection Symmetrical Circulation Heart tones Present Pulses Palpable Color [place] Disability Alert. Secondary Survey: 19:30 HEENT: Head No injury/deformity Face No injury/deformity Eyes: No injury or deformity rr5 noted. to bilateral eyes. Ears: clear bilaterally. Nose: clear to bilateral nares. Throat: is clear with gag reflex present. Gastrointestinal: Abdomen is soft. : No signs and/or symptoms were reported regarding the genitourinary system. Musculoskeletal: Capillary refill < 3 seconds, Reports pain in neck and back pain. Assessment: 19:25 General: Appears in no apparent distress. comfortable, Behavior is calm, cooperative, rr5 drowsy. Pain: Denies pain. Complains of pain in head, neck and back Unable to use pain scale. 19:25 Neuro: Level of Consciousness is awake, alert, obeys commands, Oriented to person, rr5 place. Cardiovascular: Capillary refill < 3 seconds Patient's skin is warm and dry. Respiratory: Airway is patent Respiratory effort is even, unlabored, Respiratory pattern is regular, symmetrical. GI: No signs and/or symptoms were reported involving the gastrointestinal system. : No signs and/or symptoms were reported regarding the genitourinary system. EENT: No signs and/or symptoms were reported regarding the EENT system. Derm: Skin is intact, is healthy with good turgor, Skin temperature is warm. Musculoskeletal: Capillary refill < 3 seconds, Reports pain in head, neck and back. 19:40 Reassessment: Patient appears in no apparent distress at this time. send to CT scan per [facility] stretcher assisted by CT staff. 20:04 Reassessment: call made to [facility] rajat confirm for the allergy history "No [facility] known allergy". 20:25 Reassessment: laboratory staff said she will send someone to do the blood test, CN [facility] aware. 20:40 Reassessment: Patient appears in no apparent distress at this time. missed attempt from [facility] the laboratory for the blood test. CN informed. 21:55 Reassessment: Patient appears in no apparent distress at this time. waiting for rr5 results. vitally stable. 23:20 Reassessment: voided freely on the bed, after care done diaper changed. rr5 23:40 Reassessment: Patient appears in no apparent distress at this time. patient refused for rr5 straight catheter. complaining of neck back pain. ED provider informed with order made and carried out. 23:50 Reassessment: crm campaign manager imtiaz called [facility] to arrange transport, patient is rr5 discharge. 10/19 00:58 Reassessment: follow up to [facility] the transport she said we cannot provide the [facility] transport at this time, will arrange in the morning. 02:00 Reassessment: voided freely specimen collected. ED provider informed for the result, no rr5 need to send in laboratory. 03:30 Reassessment: Patient appears in no apparent distress at this time. No changes from rr5 previously documented assessment. 05:41 Reassessment: Patient appears in no apparent distress at this time. eyes close rr5 breathing spontaneously at room air. 06:26 Reassessment: Patient appears in no apparent distress at this time. diaper changed rr5 voided freely. awaiting for [facility] transport going back to [place]. 07:23 Reassessment: follow up to [facility] staff nurse kadie for the transport she said rr5 around [id number]. 07:50 Reassessment: Pt resting in bed with eyes closed, easy to arouse to verbal stimuli. Pt aa5 is A\\T\\O x person, place, and situation. Respirations even and unlabored, skin is pink/warm/dry. Pt c/o pain all over upon repositioning. Pt notified of wait time for transport back to [facility], pt verbalized understanding. . 08:30 Reassessment: Patient is alert, oriented x 3, equal unlabored respirations, skin aa5 warm/dry/pink. Pt sitting up in bed, pt given soda to drink. Awaiting transportation back to [facility]. . 09:20 Reassessment: Patient is alert, oriented x 3, equal unlabored respirations, skin aa5 warm/dry/pink. Vital Signs: 10/18 19:25 BP 119 / 79; Pulse 62; Resp 16; Temp 97.7; Pulse Ox 94% ; rr5 20:12 BP 115 / 70; Pulse 58; Resp 17; Pulse Ox 97% ; rr5 21:30 BP 126 / 72; Pulse 58; Resp 14; Pulse Ox 98% on R/A; rr5 22:30 BP 132 / 72; Pulse 60; Resp 16; Temp 98; Pulse Ox 99% on R/A; rr5 23:30 BP 143 / 90; Pulse 68; Resp 17; Temp 97.5; Pulse Ox 98% ; Weight 90.72 kg; rr5 10/19 00:30 BP 115 / 65; Pulse 62; Resp 16; Pulse Ox 97% ; rr5 02:00 BP 116 / 70; Pulse 60; Resp 19; Pulse Ox 99% on R/A; rr5 03:30 BP 106 / 66; Pulse 65; Resp 16; Pulse Ox 97% ; rr5 05:30 BP 105 / 70; Pulse 61; Resp 18; Pulse Ox 98% on R/A; rr5 06:27 BP 134 / 95; Pulse 65; Resp 16; Temp 97.7; Pulse Ox 98% ; rr5 07:25 BP 122 / 88; Pulse 67; Resp 16 S; Temp 97.6(TE); Pulse Ox 98% on R/A; aa5 08:25 BP 126 / 84; Pulse 65; Resp 18 S; Pulse Ox 98% on R/A; aa5 Union Coma Score: 10/18 19:30 Eye Response: spontaneous(4). Verbal Response: confused(4). Motor Response: obeys rr5 commands(6). Total: 14. 20:12 Eye Response: to voice(3). Verbal Response: oriented(5). Motor Response: obeys rr5 commands(6). Total: 14. 21:30 Eye Response: to voice(3). Verbal Response: oriented(5). Motor Response: obeys rr5 commands(6). Total: 14. 22:30 Eye Response: to voice(3). Verbal Response: oriented(5). Motor Response: obeys rr5 commands(6). Total: 14. 23:30 Eye Response: to voice(3). Verbal Response: oriented(5). Motor Response: obeys rr5 commands(6). Total: 14. 10/19 00:30 Eye Response: to voice(3). Verbal Response: oriented(5). Motor Response: obeys rr5 commands(6). Total: 14. 02:00 Eye Response: to voice(3). Verbal Response: oriented(5). Motor Response: obeys rr5 commands(6). Total: 14. Trauma Score (Adult): 10/18 19:30 Eye Response: spontaneous(1); Verbal Response: confused(1); Motor Response: obeys rr5 commands(2); Systolic BP: > 89 mm Hg(4); Respiratory Rate: 10 to 29 per min(4); Alivia Score: 14; Trauma Score: 12 23:30 Eye Response: to voice(0); Verbal Response: oriented(1); Motor Response: obeys rr5 commands(2); Systolic BP: > 89 mm Hg(4); Respiratory Rate: 10 to 29 per min(4); Alivia Score: 14; Trauma Score: 11 10/19 02:00 Eye Response: to voice(0); Verbal Response: oriented(1); Motor Response: obeys rr5 commands(2); Systolic BP: > 89 mm Hg(4); Respiratory Rate: 10 to 29 per min(4); Alivia Score: 14; Trauma Score: 11 07:25 Eye Response: spontaneous(1); Verbal Response: oriented(1); Motor Response: obeys aa5 commands(2); Systolic BP: > 89 mm Hg(4); Respiratory Rate: 10 to 29 per min(4); Alivia Score: 15; Trauma Score: 12 08:25 Eye Response: spontaneous(1); Verbal Response: oriented(1); Motor Response: obeys aa5 commands(2); Systolic BP: > 89 mm Hg(4); Respiratory Rate: 10 to 29 per min(4); Union Score: 15; Trauma Score: 12 ED Course: 10/18 19:25 Arm band placed on right wrist. rr5 19:25 Thermoregulation: warm blanket given to patient. rr5 19:30 Patient arrived in ED. lp1 19:30 Jamison Hernandez PA is PHCP. jr8 19:30 Jessika Huitron MD is Attending Physician. jr8 19:30 Maintain EMS IV. Dressing intact. Good blood return noted. Site clean \\T\\ dry. Gauge \\T\\ rr 5 site: G 20 right FA. 19:31 Patient has correct armband on for positive identification. Placed in gown. Bed in low rr5 position. Call light in reach. Side rails up X2. Patient maintains SpO2 saturation greater than 95% on room air. 19:31 surveillance system monitor on. Pulse ox on. NIBP on. rr5 19:39 Nick Muniz, NOEL is Primary Nurse. rr5 19:46 Triage completed. rr5 19:50 Head C Spine Mpr Wo Con In Process Unspecified. EDMS 20:55 Shoulder Right (2 View) XRAY In Process Unspecified. EDMS 20:55 Chest Single View XRAY In Process Unspecified. EDMS 21:15 Initial lab(s) drawn, First set of blood cultures drawn right femoral stick using rr5 ultrasound. 21:45 Second set of blood cultures drawn hard stick patient. pediatric bottle sent. rr5 21:45 Inserted saline lock: 22 gauge in left hand, using aseptic technique. Blood collected. rr5 10/19 00:30 IV discontinued, intact, bleeding controlled, No redness/swelling at site. Pressure rr5 dressing applied, right IV cannula G20 from EMS at right forearm pulled by the patient. 01:50 Urine collected: clean catch specimen, clear. rr5 02:02 No provider procedures requiring assistance completed. rr5 Administered Medications: 10/18 20:35 Drug: NS 0.9% 1000 ml Route: IV; Rate: 1 bolus; Site: right forearm; rr5 21:47 Follow up: Response: No adverse reaction; IV Status: Completed infusion; IV Intake: rr5 1000ml 21:47 Drug: Rocephin 1 grams Route: IV; Rate: calculated rate; Site: right forearm; rr5 23:00 Follow up: Response: No adverse reaction; IV Status: Completed infusion rr5 23:42 Drug: Zofran (Ondansetron) 4 mg Route: IVP; Site: right forearm; rr5 10/19 00:40 Follow up: Response: No adverse reaction rr5 01:56 Follow up: Response: No adverse reaction rr5 10/18 23:44 Drug: morphine 4 mg {Note: rass 0.} Route: IVP; Site: right forearm; rr5 10/19 00:40 Follow up: Response: No adverse reaction; RASS: Alert and Calm (0) rr5 Intake: 10/18 21:47 IV: 1000ml; Total: 1000ml. rr5 10/19 01:01 PO: 0ml; Total: 1000ml. rr5 Output: 10/18 23:20 Other: 1 (Diapers) ; Total: 0ml. rr5 Outcome: 23:18 Discharge ordered by MD. hall 10/19 01:00 Patient's length of stay in the Emergency Department was greater than 2 hours. awaiting rr5 for [facility] facility transport, they will come in the morning.Patient's length of stay extended due to 09:20 Discharged to [facility] [place] [id number] 09:20 Condition: stable 09:20 Discharge instructions given to patient, Instructed on discharge instructions, follow up and referral plans. 09:33 Patient left the ED. aa5 Signatures: Dispatcher [employer] EDJen Cevallos, RN RN aa5 Madison Quintero RN RN lp1 Jamison Hernandez PA PA jr8 Jessika Huitron MD MD ma2 Nick Muniz RN RN rr5 Corrections: (The following items were deleted from the chart) 10/18 21:18 19:30 Maintain EMS IV. Dressing intact. Good blood return noted. Site clean \\T\\ dry. rr5 Gauge \\T\\ site: G 20 right AC. rr5 10/19 00:58 10/18 19:22 Mechanism of Injury: Fall from standing position. rr5 rr5 10/19 02:02 10/18 23:30 GCS: 15, rr5 rr5 10/19 02:02 10/18 23:30 Union Score=15, Trauma Score=12, rr5 rr5 10/19 06:29 06:26 Reassessment: Patient appears in no apparent distress at this time. diaper rr5 changed voided freely. rr5
--- NOTE | 2019-10-19 23:21 | EDPHYS ---
Physician Documentation [facility] Name: Zbigniew Mitchell Age: 74 yrs Sex: Male : 1945 Arrival Date: 10/19/2019 Time: 19:30 Bed 8 Private MD: ED Physician Jessika Huitron HPI: 10/18 21:20 This 74 yrs old Male presents to ER via EMS with complaints of Fall Injury. ma2 21:20 Details of fall: The patient fell from an upright position. Onset: The symptoms/episode ma2 began/occurred gradually, 1 day(s) ago. Severity of symptoms: in the emergency department the symptoms have resolved, have improved. The patient has not experienced similar symptoms in the past. Historical: - Allergies: 20:04 No Known Allergies; rr5 - Home Meds: 19:30 acetaminophen 325 mg Oral tab 2 tabs q6hrs prn [Active]; acetaminophen-codeine 300-30 rr5 mg Oral tab 1 tab q 6hrs prn [Active]; Actonel 35 mg Oral tab 1 tab once wkly [Active]; Aricept 10 mg Oral tab 1 tab nightly [Active]; aspirin 81 mg Oral chew 1 tab once daily [Active]; Depakote ER 500 mg Oral Tb24 2 tabs nightly [Active]; Depakote ER 500 mg Oral Tb24 1 tab once daily [Active]; Dilantin 100 mg Oral 2 tab twice a day [Active]; Eliquis 2.5 mg Oral tab 1 tab 2 times per day [Active]; Imodium Oral 2 mg as needed [Active]; lactulose 10 gram/15 mL Oral soln q day prn [Active]; metoprolol tartrate 50 mg Oral tab 1 tab once daily [Active]; Miralax 17 gram Oral pwpk 1 packet once daily [Active]; Mobic 7.5 mg Oral tab 1 tab once daily [Active]; Neurontin 100 mg Oral cap nightly [Active]; Malabar 5-325 mg Oral tab 1 tab three times a day [Active]; Protonix 40 mg Oral TbEC 1 tab once daily [Active]; Norvasc 2.5 mg Oral tab 1 tab twice a day [Active]; Seroquel 50 mg Oral tab 1 tab nightly [Active]; simvastatin 40 mg Oral tab 1 tab nightly [Active]; Synthroid 150 mcg Oral tab 1 tab once daily [Active]; Vitamin D Oral 2000 unit daily [Active]; - PMHx: 19:30 Atrial Fib; Bipolar disorder; Bronchitis; Cervicalgia; Chronic pain; constipation; 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 - Social history:: Smoking status: unknown Patient/guardian denies using alcohol, street drugs, The patient lives with family. - Immunization history: Last tetanus immunization: unknown. - Family history:: not pertinent. ROS: 21:20 Constitutional: Negative for fever, chills, and weight loss. ma2 21:20 All other systems are negative. Exam: 21:20 Constitutional: This is a well developed, well nourished patient who is awake, alert, ma2 and in no acute distress. Head/Face: Normocephalic, atraumatic. Eyes: Pupils equal round and reactive to light, extra-ocular motions intact. Lids and lashes normal. Conjunctiva and sclera are non-icteric and not injected. Cornea within normal limits. Periorbital areas with no swelling, redness, or edema. ENT: Nares patent. No nasal discharge, no septal abnormalities noted. Tympanic membranes are normal and external auditory canals are clear. Oropharynx with no redness, swelling, or masses, exudates, or evidence of obstruction, uvula midline. Mucous membranes moist. Neck: Trachea midline, no thyromegaly or masses palpated, and no cervical lymphadenopathy. Supple, full range of motion without nuchal rigidity, or vertebral point tenderness. No Meningismus. Chest/axilla: Normal chest wall appearance and motion. Nontender with no deformity. No lesions are appreciated. Cardiovascular: Regular rate and rhythm with a normal S1 and S2. No gallops, murmurs, or rubs. Normal PMI, no JVD. No pulse deficits. Respiratory: Lungs have equal breath sounds bilaterally, clear to auscultation and percussion. No rales, rhonchi or wheezes noted. No increased work of breathing, no retractions or nasal flaring. Abdomen/GI: Soft, non-tender, with normal bowel sounds. No distension or tympany. No guarding or rebound. No evidence of tenderness throughout. Back: No spinal tenderness. No costovertebral tenderness. Full range of motion. Skin: Warm, dry with normal turgor. Normal color with no rashes, no lesions, and no evidence of cellulitis. MS/ Extremity: Pulses equal, no cyanosis. Neurovascular intact. Full, normal range of motion. Neuro: Awake and alert, GCS 15, oriented to person, place, time, and situation. Cranial nerves II-XII grossly intact. Motor strength 5/5 in all extremities. Sensory grossly intact. Cerebellar exam normal. Normal gait. Vital Signs: 19:25 BP 119 / 79; Pulse 62; Resp 16; Temp 97.7; Pulse Ox 94% ; rr5 20:12 BP 115 / 70; Pulse 58; Resp 17; Pulse Ox 97% ; rr5 21:30 BP 126 / 72; Pulse 58; Resp 14; Pulse Ox 98% on R/A; rr5 22:30 BP 132 / 72; Pulse 60; Resp 16; Temp 98; Pulse Ox 99% on R/A; rr5 23:30 BP 143 / 90; Pulse 68; Resp 17; Temp 97.5; Pulse Ox 98% ; Weight 90.72 kg; rr5 03/27 00:30 BP 115 / 65; Pulse 62; Resp 16; Pulse Ox 97% ; rr5 02:00 BP 116 / 70; Pulse 60; Resp 19; Pulse Ox 99% on R/A; rr5 03:30 BP 106 / 66; Pulse 65; Resp 16; Pulse Ox 97% ; rr5 05:30 BP 105 / 70; Pulse 61; Resp 18; Pulse Ox 98% on R/A; rr5 06:27 BP 134 / 95; Pulse 65; Resp 16; Temp 97.7; Pulse Ox 98% ; rr5 07:25 BP 122 / 88; Pulse 67; Resp 16 S; Temp 97.6(TE); Pulse Ox 98% on R/A; aa5 08:25 BP 126 / 84; Pulse 65; Resp 18 S; Pulse Ox 98% on R/A; aa5 Alivia Coma Score: 10/18 19:30 Eye Response: spontaneous(4). Verbal Response: confused(4). Motor Response: obeys rr5 commands(6). Total: 14. 20:12 Eye Response: to voice(3). Verbal Response: oriented(5). Motor Response: obeys rr5 commands(6). Total: 14. 21:30 Eye Response: to voice(3). Verbal Response: oriented(5). Motor Response: obeys rr5 commands(6). Total: 14. 22:30 Eye Response: to voice(3). Verbal Response: oriented(5). Motor Response: obeys rr5 commands(6). Total: 14. 23:30 Eye Response: to voice(3). Verbal Response: oriented(5). Motor Response: obeys rr5 commands(6). Total: 14. 10/19 00:30 Eye Response: to voice(3). Verbal Response: oriented(5). Motor Response: obeys rr5 commands(6). Total: 14. 02:00 Eye Response: to voice(3). Verbal Response: oriented(5). Motor Response: obeys rr5 commands(6). Total: 14. Trauma Score (Adult): 10/18 19:30 Eye Response: spontaneous(1); Verbal Response: confused(1); Motor Response: obeys rr5 commands(2); Systolic BP: > 89 mm Hg(4); Respiratory Rate: 10 to 29 per min(4); Lansing Score: 14; Trauma Score: 12 23:30 Eye Response: to voice(0); Verbal Response: oriented(1); Motor Response: obeys rr5 commands(2); Systolic BP: > 89 mm Hg(4); Respiratory Rate: 10 to 29 per min(4); Alivia Score: 14; Trauma Score: 11 10/19 02:00 Eye Response: to voice(0); Verbal Response: oriented(1); Motor Response: obeys rr5 commands(2); Systolic BP: > 89 mm Hg(4); Respiratory Rate: 10 to 29 per min(4); Alivia Score: 14; Trauma Score: 11 07:25 Eye Response: spontaneous(1); Verbal Response: oriented(1); Motor Response: obeys aa5 commands(2); Systolic BP: > 89 mm Hg(4); Respiratory Rate: 10 to 29 per min(4); Alivia Score: 15; Trauma Score: 12 08:25 Eye Response: spontaneous(1); Verbal Response: oriented(1); Motor Response: obeys aa5 commands(2); Systolic BP: > 89 mm Hg(4); Respiratory Rate: 10 to 29 per min(4); [place] Score: 15; Trauma Score: 12 MDM: 10/18 19:30 Patient medically screened. jr8 21:21 Differential diagnosis: closed head injury, contusion, fracture. [facility] 23:16 Data reviewed: vital signs, nurses notes. Counseling: I had a detailed discussion with [facility] the patient and/or guardian regarding: the historical points, exam findings, and any diagnostic results supporting the discharge/admit diagnosis, the presence of at least one elevated blood pressure reading (>120/80) during this emergency department visit, the need for outpatient follow up. Response to treatment: the patient's symptoms have markedly improved after treatment. 10/18 19:43 Order name: CBC with Diff; Complete Time: 22:08 [facility] 10/18 19:43 Order name: CMP; Complete Time: 22:08 [facility] 10/18 19:43 Order name: Troponin (emerg Dept Use Only); Complete Time: 22:08 [facility] 10/18 19:43 Order name: PT-INR; Complete Time: 22:08 [facility] 10/18 19:43 Order name: Lactate; Complete Time: 22:08 [facility] 10/18 19:43 Order name: Blood Culture Adult (2) [facility] 10/18 19:43 Order name: Head C Spine Mpr Wo Con; Complete Time: 22:08 [facility] 10/18 19:43 Order name: Shoulder Right (2 View) XRAY; Complete Time: 22:08 [facility] 10/18 21:28 Order name: CBC Smear Scan; Complete Time: 22:08 [facility] 10/19 02:05 Order name: Urine Dipstick--Ancillary (enter results) [facility] 10/18 19:43 Order name: Chest Single View XRAY; Complete Time: 22:08 [facility] 10/18 19:43 Order name: Urine Dipstick-Ancillary (obtain specimen); Complete Time: 01:58 [facility] Administered Medications: 20:35 Drug: NS 0.9% 1000 ml Route: IV; Rate: 1 bolus; Site: right forearm; rr5 21:47 Follow up: Response: No adverse reaction; IV Status: Completed infusion; IV Intake: rr5 1000ml 21:47 Drug: Rocephin 1 grams Route: IV; Rate: calculated rate; Site: right forearm; rr5 23:00 Follow up: Response: No adverse reaction; IV Status: Completed infusion rr5 23:42 Drug: Zofran (Ondansetron) 4 mg Route: IVP; Site: right forearm; rr5 10/19 00:40 Follow up: Response: No adverse reaction rr5 01:56 Follow up: Response: No adverse reaction rr5 10/18 23:44 Drug: morphine 4 mg {Note: rass 0.} Route: IVP; Site: right forearm; rr5 10/19 00:40 Follow up: Response: No adverse reaction; RASS: Alert and Calm (0) rr5 Disposition: 10/19/19 23:18 Discharged to Home. Impression: Fall (on) (from) unspecified stairs and steps. - Condition is Stable. - Discharge Instructions: Fall Prevention in the Home. - Medication Reconciliation Form, Thank You Letter, Antibiotic Education, Prescription Opioid Use form. - Follow up: Private Physician; When: Tomorrow; Reason: Recheck today's complaints, Continuance of care. Signatures: Dispatcher [employer] Jen Mosher RN RN aa5 Jamison Hernandez PA PA jr8 Jessika Huitron MD MD ma2 Nick Muniz RN RN rr5 Corrections: (The following items were deleted from the chart) 10/18 19:43 19:31 Head Brain Wo Cont+CT.RAD.BRZ ordered. EDWA EDWA 19:50 19:44 C Spine Wo Con+CT.RAD.BRZ ordered. EDWA EDWA 10/19 01:59 01:57 UA MICROSCOPIC+U.LAB.BRZ ordered. EDWA EDMS 02:36 02:13 Urine Culture+BA.LAB.BRZ ordered. EDWA EDWA 09:33 10/18 23:18 10/19/2019 23:18 Discharged to Home. Impression: Fall (on) (from) aa5 unspecified stairs and steps. Condition is Stable. Forms are Medication Reconciliation Form, Thank You Letter, Antibiotic Education, Prescription Opioid Use. Follow up: Private Physician; When: Tomorrow; Reason: Recheck today's complaints, Continuance of care. thi2
[2019-10-19] MEDS ORDERED: ONDANSETRON 4 MG/2 ML VIAL ONE (23:40)
[2019-10-19] MEDS ORDERED: MORPHINE 4 MG/ML SYR ONE (23:40)
[2019-10-20 02:11] LABS: Urine Blood TRACE (NEG); Urine Glucose NEGATIVE (NEG); Urine Protein NEGATIVE (NEG); Urine Specific Gravity 1.025 (1.005-1.030)
[2019-10-20 09:57] VITALS: O2SAT 98
[2019-10-20 10:05] VITALS: TEMP 98.1
[2019-10-20 10:12] VITALS: BP 162/110
== END 2019-10-20 09:33 | disposition home or self-care (01) ==
LOC: ER 19:25
DX: M54.2 Cervicalgia (principal); M54.9 Dorsalgia, unspecified; W06.XXXA Fall from bed, initial encounter; Y93.9 Activity, unspecified; Y92.122 Bedroom in nursing home as the place of occurrence of the external cause; I10 Essential (primary) hypertension; E03.9 Hypothyroidism, unspecified; E78.5 Hyperlipidemia, unspecified; F03.90 Unspecified dementia, unspecified severity, without behavioral disturbance, psychotic disturbance, mood disturbance, and anxiety; F31.9 Bipolar disorder, unspecified; I48.91 Unspecified atrial fibrillation; Z79.01 Long term (current) use of anticoagulants; Z79.82 Long term (current) use of aspirin
CPT/HCPCS: 96365; 96361; 87040 ×2; 85025; 36415; 85610; 83605; 81003; 84484; 80053; 70450; 72125; 71045; 73030; 96375; 99285; J0696; J7030; J2405

== ENCOUNTER 2019-11-01 | Emergency (ER) | payer OTHER | END 2019-11-02 10:59 | disposition home or self-care (01) | CPT/HCPCS: 70450; 72125; 74176; 76377; 99284 ==

== ENCOUNTER 2020-11-25 17:40 | Inpatient (IN) | payer OTHER ==
[2020-11-25 18:12] LABS: Absolute Lymphocytes (CBC) 1.2 K/uL (0.7-4.9); Basophils % 0.7 % (0-1.3); Hematocrit 51.4 % (39.6-49.0); Lymphocytes % 13.9 % (15.3-44.8); MPV 9.7 fL (7.6-11.3); RBC Red Blood Cell Count 5.12 M/uL (4.33-5.43)
[2020-11-25 18:27] LABS: Urine Blood 3+ (Negative); Urine Glucose Negative (Negative); Urine Protein 1+ (Negative); Urine Specific Gravity 1.025 (1.005-1.030); Urine pH 5.5 (5.0-7.0)
[2020-11-25] MEDS ORDERED: NA CHLORIDE 0.9% 250 ML ONE (18:27)
[2020-11-25] MEDS ORDERED: VANCOMYCIN 1 GM/VIAL ONE (18:27)
[2020-11-25] MEDS ORDERED: NA CHLORIDE 0.9% 1,000 ML ONE (18:28)
[2020-11-25] MEDS ORDERED: CEFEPIME/SWI 1gm 10 ML ONE (18:28)
--- NOTE | 2020-11-25 18:42 | RAD REPORT ---
EXAM DESCRIPTION: CT - Head Brain Wo Cont - 11/25/2020 6:11 pm CLINICAL HISTORY: ams COMPARISON: CT; Head Brain Wo Cont 03/16/2019 TECHNIQUE: Axial 5 mm thick images of the head were obtained without IV contrast. All CT scans are performed using dose optimization technique as appropriate and may include automated exposure control or mA/KV adjustment according to patient size. FINDINGS: No intracranial hemorrhage, mass, edema or shift of mid-line structures. No acute infarcti on changes seen. Atrophy, chronic ischemic change and gliosis present matching old study. Mastoid air cells and visualized portions of the paranasal sinuses are clear. No acute bony findings. Post surgical changes to posterior skull. IMPRESSION: Negative non-contrast CT head examination for acute finding. No change from comparison.
--- NOTE | 2020-11-25 19:00 | EDPHYS ---
Physician Documentation [facility] Name: Zbigniew Mitchell Age: 75 yrs Sex: Male : 1945 Arrival Date: 11/25/2020 Time: 17:42 Bed 28 Private MD: ED Physician Jessika Huitron HPI: 11/25 18:42 This 75 yrs old Male presents to ER via EMS with complaints of Altered Mental ma2 Status. 18:42 Onset: The symptoms/episode began/occurred gradually, 1 day(s) ago. Associated signs ma2 and symptoms: Pertinent negatives: ataxia, blurred vision, combativeness, diaphoresis. Current symptoms: In the emergency department the patient's symptoms are unchanged from the initial presentation. The patient has experienced similar episodes in the past. Historical: - Allergies: 17:51 PENICILLINS; hb - Home Meds: 17:51 acetaminophen 325 mg Oral tab 2 tabs q 8 hrs [Active]; Aricept 10 mg Oral tab 1 tab hb nightly [Active]; aspirin 81 mg Oral chew 1 tab once daily [Active]; Depakote ER 500 mg Oral Tb24 2 tabs nightly [Active]; Depakote ER 500 mg Oral Tb24 1 tab once daily [Active]; Dilantin 100 mg Oral 2 tab twice a day [Active]; Eliquis 2.5 mg Oral tab 1 tab 2 times per day [Active]; Eliquis 5 mg Oral tab 0.5 tab 2 times per day [Active]; furosemide 20 mg Oral tab 1 tab once daily [Active]; Cora-Tussin DM 10-100 mg/5 mL Oral syrp 15 mL TID [Active]; hydrocodone-acetaminophen 7.5-325 mg Oral tab 1 tab 8 hours [Active]; hydrocortisone 1 % Topical crea 2 times per day [Active]; loratadine 10 mg Oral tab 1 tab once daily [Active]; metoprolol tartrate 25 mg Oral tab 1 tab 2 times per day [Active]; Miralax 17 gram Oral pwpk 1 packet once daily [Active]; Neurontin 100 mg Oral cap nightly [Active]; nitroglycerin 0.4 mg Oral cpER PRN [Active]; Norvasc 2.5 mg Oral tab 1 tab twice a day [Active]; omeprazole 20 mg Oral cpDR 1 cap once daily [Active]; Prozac 40 mg Oral cap 1 cap once daily [Active]; Seroquel 25 mg Oral tab 1 tab 2 times per day [Active]; Synthroid 150 mcg Oral tab 1 tab once daily [Active]; trazodone 100 mg Oral tab 1 tab at bedtime [Active]; Vitamin D Oral 2000 unit daily [Active]; Zyrtec 10 mg Oral cap daily [Active]; - PMHx: 17:51 Atrial Fib; Bipolar disorder; Bronchitis; Cervicalgia; Chronic pain; constipation; hb 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; Dementia; Depression; Diverticulitis; ENCEPHALOPATHY; frequent falls; GERD; Hyperlipidemia; Hypertension; Hypothyroidism; lumbago with sciatica; osteoarthritis; Seizures; weakness; - PSHx: 17:51 Gastric Bypass; hb - Immunization history:: Adult Immunizations up to date. - Social history:: Smoking status: unknown. - Family history:: not pertinent. ROS: 18:42 Unable to obtain ROS due to altered mental status. ma2 Exam: 18:42 Constitutional: This is a well developed, well nourished patient who is awake, alert, ma2 and in no acute distress. Head/Face: Normocephalic, atraumatic. Eyes: Pupils equal round and reactive to light, extra-ocular motions intact. Lids and lashes normal. Conjunctiva and sclera are non-icteric and not injected. Cornea within normal limits. Periorbital areas with no swelling, redness, or edema. Neck: Trachea midline, no thyromegaly or masses palpated, and no cervical lymphadenopathy. Supple, full range of motion without nuchal rigidity, or vertebral point tenderness. No Meningismus. Chest/axilla: Normal chest wall appearance and motion. Nontender with no deformity. No lesions are appreciated. Cardiovascular: Regular rate and rhythm with a normal S1 and S2. No gallops, murmurs, or rubs. Normal PMI, no JVD. No pulse deficits. Respiratory: Lungs have equal breath sounds bilaterally, clear to auscultation and percussion. No rales, rhonchi or wheezes noted. No increased work of breathing, no retractions or nasal flaring. Abdomen/GI: Soft, non-tender, with normal bowel sounds. No distension or tympany. No guarding or rebound. No evidence of tenderness throughout. Skin: Warm, dry with normal turgor. Normal color with no rashes, no lesions, and no evidence of cellulitis. MS/ Extremity: Pulses equal, no cyanosis. Neurovascular intact. Full, normal range of motion. 18:42 Neuro: Orientation: to person, Not oriented to place, time, Mentation: slow to respond, confused, Memory: Cranial nerves: grossly normal, Motor: is normal, Sensation: is normal. Vital Signs: 17:42 BP 120 / 74; Pulse 81; Resp 18; Temp 97.9; Pulse Ox 95% on R/A; Pain 0/10; hb 19:23 BP 128 / 46; Pulse 74; Resp 15; Pulse Ox 96% ; hb 21:30 BP 98 / 76; Pulse 73; Resp 19; Pulse Ox 97% on R/A; jb4 MDM: 17:42 Patient medically screened. [facility] 18:42 Differential Diagnosis: electrolyte abnormality, overdose, pneumonia, UTI, volume ma2 depletion. 18:54 Data reviewed: vital signs, nurses notes. Counseling: I had a detailed discussion with [facility] the patient and/or guardian regarding: the historical points, exam findings, and any diagnostic results supporting the discharge/admit diagnosis, the presence of at least one elevated blood pressure reading (>120/80) during this emergency department visit, the need for outpatient follow up. Response to treatment: the patient's symptoms have markedly improved after treatment. 18:56 ED course: discussed with Garcia. [facility] 11/25 17:45 Order name: C-Reactive Protein [facility] 11/25 17:45 Order name: Amylase, Serum [facility] 11/25 17:45 Order name: Basic Metabolic Panel [facility] 11/25 17:45 Order name: Blood Culture Adult (2) [facility] 11/25 17:45 Order name: CBC with Diff [facility] 11/25 17:45 Order name: Ckmb [facility] 11/25 17:45 Order name: CPK [facility] 11/25 17:45 Order name: Lactate; Complete Time: 18:41 [facility] 11/25 17:45 Order name: LFT's [facility] 11/25 17:45 Order name: Lipase [facility] 11/25 17:45 Order name: Procalcitonin [facility] 11/25 17:45 Order name: Protime (+inr) [facility] 11/25 17:45 Order name: Ptt, Activated [facility] 11/25 17:45 Order name: Troponin (emerg Dept Use Only) [facility] 11/25 17:45 Order name: Urine Microscopic Only [facility] 11/25 17:45 Order name: C-Reactive Protein [facility] 11/25 17:46 Order name: Amylase [facility] 11/25 17:46 Order name: Basic Metabolic Panel [facility] 11/25 17:46 Order name: Blood Culture [facility] 11/25 17:46 Order name: CBC with Automated Diff; Complete Time: 18:41 [facility] 11/25 17:46 Order name: CKMB Creatine Kinase MB [facility] 11/25 17:46 Order name: Creatine Phosphokinase [facility] 11/25 17:46 Order name: Blood Culture [facility] 11/25 17:45 Order name: Chest Single View XRAY [facility] 11/25 17:45 Order name: Accucheck; Complete Time: 18:26 [facility] 11/25 17:45 Order name: Cardiac monitoring; Complete Time: 18:27 [facility] 11/25 17:45 Order name: EKG - Nurse/Tech; Complete Time: 18:27 [facility] 11/25 17:45 Order name: IV Saline Lock - Large Bore; Complete Time: 18:27 [facility] 11/25 17:45 Order name: Labs collected and sent; Complete Time: 18:27 [facility] 11/25 17:45 Order name: O2 Per Protocol; Complete Time: 18:27 [facility] 11/25 17:45 Order name: O2 Sat Monitoring; Complete Time: 18:27 [facility] 11/25 17:45 Order name: Urine Dipstick-Ancillary (obtain specimen); Complete Time: 18:27 [facility] 11/25 17:45 Order name: CT Head Brain wo Cont [facility] 11/25 17:47 Order name: Chest Single View [facility] 11/25 17:47 Order name: Head Brain Wo Cont; Complete Time: 18:53 [facility] 11/25 18:21 Order name: Labs - recollect needed: recollect blue and green tube; Complete Time: 18:39bd 11/25 18:27 Order name: Urine Dipstick-Ancillary; Complete Time: 18:41 [facility] 11/25 18:52 Order name: Labs - recollect needed: recollect blue and green top again.; Complete bd Time: 19:15 11/25 19:21 Order name: Urine Culture EDMS 11/25 19:21 Order name: COVID-19 : Document "Date of Symptom Onset" if Symptomatic. mw2 11/25 20:44 Order name: SARS-COV-2 RT PCR EDMS Administered Medications: 18:23 Drug: Cefepime 1 grams Route: IVPB; Rate: 200 ml/hr; Infused Over: 30 mins; Site: right sv wrist; 18:26 Drug: NS 0.9% 1000 ml Route: IV; Rate: 1 bolus; Site: right wrist; sv 18:26 Drug: vancoMYCIN 1 grams Route: IVPB; Infused Over: 2 hrs; Site: right wrist; sv Disposition: 11/25/20 18:59 Hospitalization ordered by Misha Bolden for Inpatient Admission. Preliminary diagnosis are Severe sepsis without septic shock, Cystitis. - Bed requested for Telemetry/MedSurg (Inpatient). - Status is Inpatient Admission. jb4 - Condition is Stable. - Problem is new. - Symptoms are unchanged. Signatures: Dispatcher [employer] EDGA Belén Lewis Stephanie, Augustina Dill RN, RN RN ss She Mcmillan RN RN Cait Mart RN RN Rik Hartman RN RN jb4 Jessika Huitron MD MD fl2 Corrections: (The following items were deleted from the chart) 17:46 17:46 C-Reactive Protein ordered. EDGA EDMS 17:46 17:46 Amylase ordered. EDGA EDGA 17:46 17:46 Basic Metabolic Panel ordered. EDGA EDGA 17:46 17:46 CBC with Automated Diff ordered. EDGA EDMS 17:46 17:46 CKMB Creatine Kinase MB ordered. EDGA EDMS 17:46 17:46 Creatine Phosphokinase ordered. EDGA EDMS 17:46 17:46 Lactate ordered. EDGA EDGA 17:47 17:46 Troponin (Emerg Dept Use Only) ordered. EDGA EDGA 17:47 17:46 Urine Microscopic Only ordered. EDGA EDMS 19:39 19:22 CORONAVIRUS ordered. EDGA EDMS 21:26 18:59 Hospitalization Ordered by Misha Bolden DO for Inpatient Admission. Preliminary cg diagnosis is Severe sepsis without septic shock; Cystitis. Bed requested for Telemetry/MedSurg (Inpatient). Status is Inpatient Admission. Condition is Stable. Problem is new. Symptoms are unchanged. ma2 23:03 21:26 11/25/2020 18:59 Hospitalization Ordered by Misha Bolden DO for Inpatient jb4 Admission. Preliminary diagnosis is Severe sepsis without septic shock; Cystitis. Bed requested for Telemetry/MedSurg (Inpatient). Status is Inpatient Admission. Condition is Stable. Problem is new. Symptoms are unchanged.
--- NOTE | 2020-11-25 19:00 | ER ---
Nurse's Notes [facility] Name: Zbigniew Mitchell Age: 75 yrs Sex: Male : 1945 Arrival Date: 11/25/2020 Time: 17:42 Bed 28 Private MD: Diagnosis: Severe sepsis without septic shock;Cystitis Presentation: 11/25 17:42 Chief complaint: EMS states: correction staff reports lethargic all day, worse this hb afternoon. SBP 80s, SpO2 85% on RA, BGL 141. 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 AOx3 at baseline. Coronavirus screen: At this time, the client does not indicate any symptoms associated with coronavirus-19. Ebola Screen: No symptoms or risks identified at this time. Initial Sepsis Screen: Does the patient meet any 2 criteria? Altered Mental Status. No. Patient's initial sepsis screen is negative. Does the patient have a suspected source of infection? No. Patient's initial sepsis screen is negative. Risk Assessment: Do you want to hurt yourself or someone else? Patient reports no desire to harm self or others. Onset of symptoms was November 25, 2020. Transition of care: patient was received from another setting of care (long-term care facility), [facility]. 17:42 Method Of Arrival: EMS: [facility] 17:42 Acuity: ANDRE 2 hb Historical: - Allergies: 17:51 PENICILLINS; hb - Home Meds: 17:51 acetaminophen 325 mg Oral tab 2 tabs q 8 hrs [Active]; Aricept 10 mg Oral tab 1 tab hb nightly [Active]; aspirin 81 mg Oral chew 1 tab once daily [Active]; Depakote ER 500 mg Oral Tb24 2 tabs nightly [Active]; Depakote ER 500 mg Oral Tb24 1 tab once daily [Active]; Dilantin 100 mg Oral 2 tab twice a day [Active]; Eliquis 2.5 mg Oral tab 1 tab 2 times per day [Active]; Eliquis 5 mg Oral tab 0.5 tab 2 times per day [Active]; furosemide 20 mg Oral tab 1 tab once daily [Active]; Cora-Tussin DM 10-100 mg/5 mL Oral syrp 15 mL TID [Active]; hydrocodone-acetaminophen 7.5-325 mg Oral tab 1 tab 8 hours [Active]; hydrocortisone 1 % Topical crea 2 times per day [Active]; loratadine 10 mg Oral tab 1 tab once daily [Active]; metoprolol tartrate 25 mg Oral tab 1 tab 2 times per day [Active]; Miralax 17 gram Oral pwpk 1 packet once daily [Active]; Neurontin 100 mg Oral cap nightly [Active]; nitroglycerin 0.4 mg Oral cpER PRN [Active]; Norvasc 2.5 mg Oral tab 1 tab twice a day [Active]; omeprazole 20 mg Oral cpDR 1 cap once daily [Active]; Prozac 40 mg Oral cap 1 cap once daily [Active]; Seroquel 25 mg Oral tab 1 tab 2 times per day [Active]; Synthroid 150 mcg Oral tab 1 tab once daily [Active]; trazodone 100 mg Oral tab 1 tab at bedtime [Active]; Vitamin D Oral 2000 unit daily [Active]; Zyrtec 10 mg Oral cap daily [Active]; - PMHx: 17:51 Atrial Fib; Bipolar disorder; Bronchitis; Cervicalgia; Chronic pain; constipation; hb 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; Dementia; Depression; Diverticulitis; ENCEPHALOPATHY; frequent falls; GERD; Hyperlipidemia; Hypertension; Hypothyroidism; lumbago with sciatica; osteoarthritis; Seizures; weakness; - PSHx: 17:51 Gastric Bypass; hb - Immunization history:: Adult Immunizations up to date. - Social history:: Smoking status: unknown. - Family history:: not pertinent. Screenin:27 Abuse screen: Denies threats or abuse. Denies injuries from another. Nutritional hb screening: No deficits noted. Tuberculosis screening: No symptoms or risk factors identified. Fall Risk Total Aleman Fall Scale indicates High Risk Score (45 or more points). Fall prevention measures have been instituted. Side Rails Up X 2 Frequent Obs/Assessments Occuring As available patient and family educated on Fall Prevention Program and Strategies. Assessment: 18:00 General: Appears in no apparent distress. Behavior is cooperative. Pain: Denies pain. hb Neuro: Level of Consciousness is obtunded, Oriented to person, place. Cardiovascular: Patient's skin is warm and dry. Respiratory: Respiratory effort is even, unlabored, Respiratory pattern is regular, symmetrical. GI: No signs and/or symptoms were reported involving the gastrointestinal system. : No signs and/or symptoms were reported regarding the genitourinary system. EENT: No signs and/or symptoms were reported regarding the EENT system. Derm: Skin is pink, warm \T\ dry. Musculoskeletal: No signs and/or symptoms reported regarding the musculoskeletal system. 19:15 Reassessment: Patient appears in no apparent distress at this time. No changes from hb previously documented assessment. Patient and/or family updated on plan of care and expected duration. Pain level reassessed. 20:30 Reassessment: Pt is resting in bed with eyes closed, respirations are even and jb4 unlabored with no s/s of pain or distress noted. 21:49 Reassessment: Patient and/or family updated on plan of care and expected duration. Pain jb4 level reassessed. Pt is A\T\O to self and place. Respirations remain even and unlabored with no s/s of pain or distress noted. 22:45 Reassessment: Patient appears in no apparent distress at this time. No changes from jb4 previously documented assessment. Patient and/or family updated on plan of care and expected duration. Pain level reassessed. Vital Signs: 17:42 BP 120 / 74; Pulse 81; Resp 18; Temp 97.9; Pulse Ox 95% on R/A; Pain 0/10; hb 19:23 BP 128 / 46; Pulse 74; Resp 15; Pulse Ox 96% ; hb 21:30 BP 98 / 76; Pulse 73; Resp 19; Pulse Ox 97% on R/A; jb4 ED Course: 17:42 Patient arrived in ED. hb 17:42 Jessika Huitron MD is Attending Physician. ma2 17:47 Triage completed. hb 17:51 Arm band placed on. hb 18:05 Chest Single View In Process Unspecified. EDMS 18:10 Head Brain Wo Cont In Process Unspecified. EDMS 18:15 Inserted saline lock: 22 gauge in right wrist, using aseptic technique. hb 18:19 EKG done, by ED staff, reviewed by Jessika Huitron MD. sv 18:26 C-Reactive Protein Sent. sv 18:26 Amylase, Serum Sent. sv 18:26 Basic Metabolic Panel Sent. sv 18:26 Blood Culture Adult (2) Sent. sv 18:26 CBC with Diff Sent. sv 18:26 Ckmb Sent. sv 18:27 Cait Mart, RN is Primary Nurse. hb 18:27 Patient has correct armband on for positive identification. Bed in low position. Call hb light in reach. Side rails up X2. 18:27 CPK Sent. sv 18:58 Misha Bolden DO is Hospitalizing Provider. ma2 19:16 Primary Nurse role handed off by Cait Mart, RN mw2 Administered Medications: 18:23 Drug: Cefepime 1 grams Route: IVPB; Rate: 200 ml/hr; Infused Over: 30 mins; Site: right sv wrist; 18:26 Drug: NS 0.9% 1000 ml Route: IV; Rate: 1 bolus; Site: right wrist; sv 18:26 Drug: vancoMYCIN 1 grams Route: IVPB; Infused Over: 2 hrs; Site: right wrist; sv Outcome: 18:59 Decision to Hospitalize by Provider. ma2 22:45 Admitted to Med/surg accompanied by tech, via stretcher, room 224, with chart, Report jb4 called to NOEL Galvan 22:45 Condition: stable 22:45 Discharge instructions given to patient, Instructed on the need for admit. 23:03 Patient left the ED. erasmo Signatures: Dispatcher [employer] EDJill Bucio RN RN Cait Mart, Rik France RN, RN RN jb4 Alzahri, Mohammad, MD MD pa2 Carlos Hernandez2
[2020-11-25 19:19] LABS: Urine Bacteria <20 /HPF (NONE SEEN); Urine Mucus 2+ /HPF (NONE SEEN)
--- NOTE | 2020-11-25 19:24 | RAD REPORT ---
EXAM DESCRIPTION: RAD - Chest Single View - 11/25/2020 6:05 pm CLINICAL HISTORY: CONGESTION COMPARISON: Portable October 19, 2019 TECHNIQUE: AP portable chest image was obtained 11/25/2020 6:05 pm . FINDINGS: Lung volumes are very low accentuating heart, vasculature and lung markings. No peripheral mass or consolidation. Heart and vasculature are normal. No measurable pleural effusion and no pneum othorax. No acute bony abnormality seen. No acute aortic findings suspected. IMPRESSION: No acute cardiopulmonary process suspected. Very low lung volumes accentuates baseline interstitial pattern potentially masking mild edema or inf iltrate.
[2020-11-25 19:33] LABS: Protime INR 1.21
--- NOTE | 2020-11-25 19:36 | P.HP ---
Certification for Inpatient Patient admitted to: Inpatient With expected LOS: >2 Midnights Patient will require the following post-hospital care: None Practitioner: I am a practitioner with admitting privileges, knowledge of patient current condition, hospital course, and medical plan of care. Services: Services provided to patient in accordance with Admission requirements found in Title 42 Section 412.3 of the Code of Federal Regulations Patient History Date of Service: 11/26/20 Reason for admission: UTI History of Present Illness: Mr. Mitchell is a 75 yo male with Alzheimer's disease, chronic afib, HTN, hypothyroidism, history of seizures, depression, bipolar d/o and chronic constipation here today for 1 day of AMS and lethargy. He stays at [facility] and is normally AOx3. At bedside, he is oriented to person and place but not time. Unable to give history, resting at bedside. Denies pain and all symptoms. Hypotensive on arrival, now normotensive after receiving fluid bolus. CT head and CXR wnl. Urine dipstick: 1+ ketones, 3+ blood, 3+leukocytes, 1+ protein, 10- 20 RBCs, 5-10 WBCs. Allergies Penicillins Allergy (Verified 11/26/20 00:08) Anaphylaxis rabies bat serum Allergy (Uncoded 11/26/20 00:08) Rash Home Medications: Divalproex Sodium [Depakote ER] 1,000 mg PO BEDTIME 01/22/15 Donepezil [Aricept*] 10 mg PO BEDTIME 03/08/18 PHENYTOIN ER Cap [Dilantin ER Cap*] 200 mg PO BID 03/08/18 Amlodipine [Norvasc] 2.5 mg PO DAILY 11/26/20 Calcium Carbonate/Vitamin D3 [Calcium 600 + Vit D 400 Tablet] 1 each PO DAILY 11/26/20 Divalproex ER [Depakote *ER*] 250 mg PO DAILY 11/26/20 Fluoxetine HCl [Prozac] 40 mg PO DAILY 11/26/20 Furosemide [Lasix] 40 mg PO BIDL 11/26/20 Gabapentin [Neurontin] 100 mg PO TID 11/26/20 Hydrocodone 5/APAP 325 [[place] 5/325] 1 tab PO Q8HP PRN 11/26/20 Hydrocortisone Cream [Hydrocortisone 1% Cream] 1 appl TOP BID 11/26/20 Levothyroxine Sodium [Synthroid] 150 mcg PO 0600 11/26/20 Lidocaine [Aspercreme] 1 each TP DAILY 11/26/20 Metoprolol Tartrate 25 mg PO BID 11/26/20 Nitroglycerin [Nitrostat] 0.4 mg SL SEECOM PRN 11/26/20 Omeprazole Magnesium [Acid Spiritual Minister] 20 mg PO DAILY 11/26/20 Polyethylene Glycol 3350 [Miralax] 17 gm PO DAILY 11/26/20 Trazodone HCl 100 mg PO BEDTIME 11/26/20 hydrOXYzine HCL [Atarax] 25 mg PO BIDP PRN 11/26/20 predniSONE [Deltasone] 10 mg PO DAILY 11/26/20 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; cervicalgia; Chronic pain; constipation -: Atrial Fib; frequent falls; osteoarthritis -: Bronchitis; Hyperlipidemia; Bipolar disorder; encephalopathy; Diverticuliti -: Hypertension; Hypothyroidism; Seizures; Depression Past Surgical History: Unable to obtain - Family History Family History: Reviewed- Non-Contributory - Family History pARENTS History Unknown: Yes Notes: PT IS CONFUSED; UNABLE TO RECALL/STATE - Social History Smoking Status: Never smoker Alcohol use: No CD- Drugs: No Caffeine use: Yes [facility] of Res[facility]: [facility] Review of Systems is unable to be obtained Physical Examination - Physical Exam General: In no apparent distress, Oriented x2, Demented HEENT: Atraumatic, Normocephalic, PERRLA, Mucous membr. moist/pink, EOMI, Sclerae nonicteric Neck: Supple, 2+ carotid pulse no bruit, JVD not distended, No Thyromegaly, No LAD Respiratory: Clear to auscultation bilaterally, Normal air movement Cardiovascular: Normal pulses, No gallops, No rubs, Other (afib), Edema (bilateral trace pitting edema), Irregular heart rate/rhythm Capillary refill: <2 Seconds Gastrointestinal: Normal bowel sounds, Soft and benign, Non-distended, No ascites, No tenderness, No masses, No rebound, No guarding Musculoskeletal: No clubbing, No swelling, No contractures, No erythema, No tenderness, No warmth Integumentary: No rashes, No breakdown, No significant lesion, No tenderness/swelling, No erythema, No warmth, No cyanosis Neurological: Normal strength at 5/5 x4 extr, Normal tone, Sensation intact, Cranial nerves 3-12 intact, Dementia Lymphatics: No axilla or inguinal lymphadenopathy Urinary: Hankins catheter - Studies Laboratory Data (last 24 hrs) 11/25/20 18:00: WBC 8.30, Hgb 16.9, Hct 51.4 H, Plt Count 282 Assessment and Plan - Problems (Diagnosis) (1) Chronic a-fib Current Visit: Yes Status: Chronic (2) Hypothyroidism Current Visit: Yes Status: Chronic Qualifiers: Hypothyroidism type: unspecified Qualified Code(s): E03.9 - Hypothyroidism, unspecified (3) Depression Current Visit: Yes Status: Chronic Qualifiers: Depression Type: unspecified Qualified Code(s): F32.9 - Major depressive disorder, single episode, unspecified (4) Bipolar disorder Current Visit: Yes Status: Chronic Qualifiers: Active/Remission status: remission status unspecified Qualified Code(s): F31.9 - Bipolar disorder, unspecified (5) Alzheimer's dementia Onset Date: 03/08/18 Current Visit: No Status: Chronic (6) History of hypertension Onset Date: 03/08/18 Current Visit: No Status: Chronic (7) History of seizure disorder Onset Date: 03/08/18 Current Visit: No Status: Chronic (8) UTI (urinary tract infection) Current Visit: Yes Status: Acute Qualifiers: Urinary tract infection type: site unspecified Hematuria presence: with hematuria Qualified Code(s): N39.0 - Urinary tract infection, site not specified; R31.9 - Hematuria, unspecified - Plan Levaquin 500mg Q24H will continue with maintenance fluids will continue with hankins catheter Urine culture and gram stain pending BP stable, will continue to monitor afib stable, will continue home medications hypothyroidism stable, will continue home medications will continue home medications for depression and bipolar disorder Discharge Plan: [facility] Plan to discharge in: 48 Hours - Advance Directives Does patient have a Living Will: No Does patient have a Durable POA for Healthcare: No - Code Status/Comfort Care Code Status Assessed: Yes (full code) Critical Care: No Time Spent Managing Pts Care (In Minutes): 70
[2020-11-25 20:40] LABS: Albumin 2.6 g/dL (3.4-5.0); Bilirubin Direct 0.1 mg/dL (0-0.2); Bilirubin Total 0.3 mg/dL (0.2-1.0); C-Reactive Protein 57.2 mg/L (<3.00); CKMB Creatine Kinase MB 1.7 ng/mL (0.3-3.6); Potassium 3.9 mmol/L (3.5-5.1); Protein, Total 7.3 g/dL (6.4-8.2); Troponin (Emerg Dept Use Only) 0.02 ng/mL (0.0-0.045)
[2020-11-25] MEDS ORDERED: ACETAMINOPHEN 500 MG TAB PO PRN (22:37)
[2020-11-25] MEDS ORDERED: ONDANSETRON 4 MG/2 ML VIAL IV PRN (22:37)
[2020-11-25] MEDS: NA CHLORIDE 0.9% 1,000 ML IV SCH (23:30)
[2020-11-25 23:41] LABS: Thyroid Stimulating Hormone 1.13 uIU/mL (0.360-3.740)
[2020-11-26 00:42] VITALS: BMI 36.0
[2020-11-26] MEDS ORDERED: NITROGLYCERIN 0.4 MG/TAB SL PRN (00:47)
[2020-11-26] MEDS: PANTOPRAZOLE 40MG TABLET PO SCH (05:10)
[2020-11-26] MEDS: LEVOTHYROXINE SOD 0.1 MG TAB PO SCH (05:10)
[2020-11-26 06:00] LABS: Absolute Lymphocytes (CBC) 2.1 K/uL (0.7-4.9); Basophils % 0.9 % (0-1.3); Hematocrit 47.3 % (39.6-49.0); Lymphocytes % 27.7 % (15.3-44.8); MPV 8.7 fL (7.6-11.3); RBC Red Blood Cell Count 4.69 M/uL (4.33-5.43)
[2020-11-26 06:24] LABS: Albumin 2.7 g/dL (3.4-5.0); Bilirubin Total 0.4 mg/dL (0.2-1.0); Magnesium 1.8 mg/dL (1.8-2.4); Phosphorus 2.8 mg/dL (2.5-4.9); Potassium 3.7 mmol/L (3.5-5.1); Protein, Total 7.5 g/dL (6.4-8.2)
[2020-11-26] MEDS ORDERED: APIXABAN 2.5 MG TABLET PO SCH (09:00)
[2020-11-26] MEDS ORDERED: MAGNESIUM SULFATE 1 gm IVPB 1 GM/100 ML BAG IV ONE (09:00)
[2020-11-26] MEDS: CALCIUM CARB 500MG/VIT D 200 IU TAB PO SCH (09:00)
[2020-11-26] MEDS: HYDROCORTISONE 1 % CREAM 30GM TOP SCH ×2 (09:00→22:06)
[2020-11-26] MEDS ORDERED: POTASSIUM CL SA 10 MEQ TAB PO ONE (09:00)
[2020-11-26] MEDS: NA CHLORIDE 0.9% 1,000 ML IV SCH ×2 (10:06→18:22)
[2020-11-26] MEDS: LIDOCAINE 4% PATCH TOP SCH (10:08)
[2020-11-26] MEDS: Levofloxacin500mg IV 500 MG/100 ML BAG IV SCH (10:08)
[2020-11-26] MEDS: ENOXAPARIN 40 MG/0.4 ML SQ SCH (10:09)
[2020-11-26] MEDS: POLYETHYL GLY 3350 17 GM/DOSE PO SCH (10:09)
[2020-11-26] MEDS: AMLODIPINE 2.5 MG TAB PO SCH (10:10)
[2020-11-26] MEDS: FUROSEMIDE 40 MG TABLET PO SCH ×2 (10:10→17:57)
[2020-11-26] MEDS: FLUOXETINE 20 MG CAP PO SCH (10:10)
[2020-11-26] MEDS: PHENYTOIN ER 100 MG CAP PO SCH ×2 (10:10→22:04)
[2020-11-26] MEDS: DIVALPROEX ER 250 MG TAB PO SCH ×2 (10:11→22:04)
[2020-11-26] MEDS: METOPROLOL TAR 25 MG TAB PO SCH ×2 (10:11→22:05)
[2020-11-26] MEDS: GABAPENTIN 100 MG CAP PO SCH ×3 (10:12→22:06)
--- NOTE | 2020-11-26 11:19 | EKG ---
Test Date: 2020-11-25 Test Time: 18:19:35 Hvac Sales Representative: SV MEASUREMENT RESULTS: Intervals: Rate: 77 VA: QRSD: 148 QT: 446 QTc: 504 [place]: P: VA: QRS: -78 T: 25 INTERPRETIVE STATEMENTS: Atrial fibrillation with premature ventricular or aberrantly conducted complexes Right bundle branch block Left anterior fascicular block Bifascicular block Cannot rule out Anterior infarct, age undetermined Abnormal ECG Compared to ECG 01/22/2015 14:58:21 Left anterior fascicular block now present Bifascicular block now present Sinus rhythm no longer present Left-axis deviation no longer present Myocardial infarct finding still present Electronically Signed On 11-26-20 11:17:09 CDT by Paco Bond
--- NOTE | 2020-11-26 13:55 | P.PN ---
Subjective Date of Service: 11/26/20 Chief Complaint: UTI Subjective: Improving <Michelle Orozco - Last Filed: 11/26/20 13:58> Date of Service: 11/26/20 Subjective: No new changes, No C/O voiced <Jessika Nguyen - Last Filed: 11/27/20 11:15> Review of Systems General: Unremarkable Eyes: Unremarkable ENT: Unremarkable Respiratory: Unremarkable Cardiovascular: Unremarkable Gastrointestinal: Unremarkable Genitourinary: Incontinence Musculoskeletal: Shoulder Pain, Unremarkable Integumentary: Other (Left upper arm wound ) Neurological: Confusion, Unremarkable Lymphatics: Unremarkable <Michelle Orozco - Last Filed: 11/26/20 13:58> 10-point ROS is otherwise unremarkable <Primitivo Nguyendiana Rebeca - Last Filed: 11/27/20 11:15> Physical Examination - Vital Signs Temperature: 97.7 F Blood Pressure: 136/76 Pulse: 84 Respirations: 19 Pulse Ox (%): 98 - Physical Exam General: Alert, Oriented x2, Demented, Confused, Delirious HEENT: Atraumatic, PERRLA, EOMI Neck: Supple, JVD not distended Respiratory: Clear to auscultation bilaterally, Normal air movement Cardiovascular: No edema, Normal S1 S2, Irregular heart rate/rhythm Capillary refill: <2 Seconds Gastrointestinal: Normal bowel sounds, No tenderness Musculoskeletal: No tenderness Integumentary: No rashes, Other (Left upper arm wound) Neurological: Normal speech, Normal tone, Normal affect Lymphatics: No axilla or inguinal lymphadenopathy Urinary: Gray catheter External genitalia: Deferred Rectal: Deferred - Studies Laboratory Data (last 24 hrs) 11/25/20 19:58: Sodium 142, Potassium 3.9, BUN 27 H, Creatinine 1.10, Glucose 84, Total Bilirubin 0.3, AST 20, ALT 10 L, Alkaline Phosphatase 96, Amylase 49, Lipase 137 11/25/20 19:14: PT 14.0 H, INR 1.21, APTT 26.4 11/25/20 18:00: WBC 8.30, Hgb 16.9, Hct 51.4 H, Plt Count 282 Microbiology Data (last 24 hrs): 11/25/20 19:51 Blood - Blood Anaerobic Blood Culture - Final <Michelle Orozco E - Last Filed: 11/26/20 13:58> - Physical Exam General: Alert, In no apparent distress HEENT: Atraumatic, PERRLA, EOMI Neck: Supple, JVD not distended Respiratory: Clear to auscultation bilaterally, Normal air movement Cardiovascular: Regular rate/rhythm, Normal S1 S2 Gastrointestinal: Normal bowel sounds, No tenderness Musculoskeletal: No tenderness Integumentary: No rashes Neurological: Normal speech, Normal tone, Normal affect Lymphatics: No axilla or inguinal lymphadenopathy - Studies Microbiology Data (last 24 hrs): 11/25/20 19:51 Blood - Blood Anaerobic Blood Culture - Final Medications List Reviewed: Yes <Jessika Nguyen - Last Filed: 11/27/20 11:15> Assessment And Plan - Plan --Acute encephalopathy. Likely secondary to UTI. CT head unremarkable. Continue antibiotics. Continue supportive care. --Atrial fibrillation. Telemetry. Continue home medications. --Hypothyroidism . Continue home medication --Depression\ bipolar disorder. Continue home medications. --Alzheimer's dementia . With superimposed delirium secondary to UTI. Will continue to monitor mental status and continue supportive care --History of seizure disorder. Seizure precautions. Continue Home medication. --Chronic constipation. Stable. Continue home medications --Hypertension. Stable. Continue current BP meds --GERD. Continue Protonix. --Left upper arm wound. Wound cultures pending. Continue antibiotics. --UTI POA. Continue antibiotics --DVT prophylaxis with Lovenox subQ Discharge Plan: [facility] Plan to discharge in: 48 Hours Critical Care: No <Michelle Orozco E - Last Filed: 11/26/20 13:58> - Current Problems (Diagnosis) (1) Bipolar disorder Current Visit: Yes Status: Chronic Qualifiers: Active/Remission status: remission status unspecified Qualified Code(s): F31.9 - Bipolar disorder, unspecified (2) Chronic a-fib Current Visit: Yes Status: Chronic (3) Depression Current Visit: Yes Status: Chronic Qualifiers: Depression Type: unspecified Qualified Code(s): F32.9 - Major depressive disorder, single episode, unspecified - Code Status/Comfort Care Code Status Assessed: Yes Code Status: Full Code Time Spent Managing PTS Care (In Minutes): 35 <Jessika Nguyen - Last Filed: 11/27/20 11:15>
[2020-11-26] MEDS: TRAZODONE 50 MG TABLET PO SCH (22:06)
[2020-11-27] MEDS: NA CHLORIDE 0.9% 1,000 ML IV SCH ×5 (01:14→23:16)
[2020-11-27] MEDS: PANTOPRAZOLE 40MG TABLET PO SCH (05:19)
[2020-11-27] MEDS: LEVOTHYROXINE SOD 0.1 MG TAB PO SCH (05:19)
[2020-11-27 06:08] LABS: Magnesium 1.8 mg/dL (1.8-2.4); Potassium 3.8 mmol/L (3.5-5.1)
[2020-11-27] MEDS: LIDOCAINE 4% PATCH TOP SCH ×3 (09:00→09:42)
[2020-11-27] MEDS: Levofloxacin500mg IV 500 MG/100 ML BAG IV SCH ×2 (09:00→09:42)
[2020-11-27] MEDS: CALCIUM CARB 500MG/VIT D 200 IU TAB PO SCH (09:00)
[2020-11-27] MEDS ORDERED: POTASSIUM CL SA 10 MEQ TAB PO ONE (09:00)
[2020-11-27] MEDS ORDERED: MAGNESIUM SULFATE 1 gm IVPB 1 GM/100 ML BAG IV ONE (09:00)
[2020-11-27] MEDS: METOPROLOL TAR 25 MG TAB PO SCH ×2 (09:00→22:07)
[2020-11-27] MEDS: ENOXAPARIN 40 MG/0.4 ML SQ SCH (09:43)
[2020-11-27] MEDS: POLYETHYL GLY 3350 17 GM/DOSE PO SCH (09:43)
[2020-11-27] MEDS: FUROSEMIDE 40 MG TABLET PO SCH ×2 (09:43→17:12)
[2020-11-27] MEDS: PHENYTOIN ER 100 MG CAP PO SCH ×2 (09:43→22:07)
[2020-11-27] MEDS: GABAPENTIN 100 MG CAP PO SCH ×3 (09:43→22:06)
[2020-11-27] MEDS: AMLODIPINE 2.5 MG TAB PO SCH (09:44)
[2020-11-27] MEDS: FLUOXETINE 20 MG CAP PO SCH (09:44)
[2020-11-27] MEDS: DIVALPROEX ER 250 MG TAB PO SCH ×2 (09:45→22:05)
[2020-11-27] MEDS: HYDROCORTISONE 1 % CREAM 30GM TOP SCH ×2 (09:45→21:00)
[2020-11-27] MEDS ORDERED: CEFTRIAXONE/SWI 1gm 1 GM/10 ML SYR IV ONE (11:19)
[2020-11-27] MEDS: TRAZODONE 50 MG TABLET PO SCH (22:06)
[2020-11-28] MEDS: LEVOTHYROXINE SOD 0.1 MG TAB PO SCH (06:08)
[2020-11-28] MEDS: PANTOPRAZOLE 40MG TABLET PO SCH (06:09)
[2020-11-28 06:20] LABS: BUN Blood Urea Nitrogen 13 mg/dL (7-18); Bicarbonate 32 mmol/L (21-32); Glucose Level 72 mg/dL (74-106); Magnesium 1.7 mg/dL (1.8-2.4); Potassium 4.3 mmol/L (3.5-5.1); Sodium Level 140 mmol/L (136-145)
[2020-11-28] MEDS ORDERED: MAGNESIUM SULFATE 1 gm IVPB 1 GM/100 ML BAG IV ONE (07:30)
[2020-11-28] MEDS: METOPROLOL TAR 25 MG TAB PO SCH (09:00)
[2020-11-28] MEDS: CALCIUM CARB 500MG/VIT D 200 IU TAB PO SCH (09:00)
[2020-11-28] MEDS: LIDOCAINE 4% PATCH TOP SCH (09:04)
[2020-11-28] MEDS: ENOXAPARIN 40 MG/0.4 ML SQ SCH (09:04)
[2020-11-28] MEDS: NA CHLORIDE 0.9% 1,000 ML IV SCH ×2 (09:04→10:37)
[2020-11-28] MEDS: POLYETHYL GLY 3350 17 GM/DOSE PO SCH (09:05)
[2020-11-28] MEDS: AMLODIPINE 2.5 MG TAB PO SCH (09:05)
[2020-11-28] MEDS: PHENYTOIN ER 100 MG CAP PO SCH (09:05)
[2020-11-28] MEDS: FUROSEMIDE 40 MG TABLET PO SCH (09:06)
[2020-11-28] MEDS: FLUOXETINE 20 MG CAP PO SCH (09:06)
[2020-11-28] MEDS: DIVALPROEX ER 250 MG TAB PO SCH (09:06)
[2020-11-28] MEDS: GABAPENTIN 100 MG CAP PO SCH (09:06)
[2020-11-28] MEDS: HYDROCORTISONE 1 % CREAM 30GM TOP SCH (09:07)
--- NOTE | 2020-11-28 09:20 | P.PN ---
Subjective Date of Service: 11/26/20 Patient is still confused and appears demented. Patient denies any new complaints. Review of Systems 10-point ROS is otherwise unremarkable Physical Examination - Vital Signs Temperature: 97.6 F Blood Pressure: 108/64 Pulse: 60 Respirations: 16 Pulse Ox (%): 94 - Physical Exam General: Alert, In no apparent distress, Oriented x3 Respiratory: Clear to auscultation bilaterally, Normal air movement Cardiovascular: Regular rate/rhythm, Normal S1 S2, No murmurs Gastrointestinal: Normal bowel sounds, Soft and benign, Non-distended, No tenderness Musculoskeletal: No clubbing, No swelling, No tenderness Neurological: Sensation intact, Cranial nerves 3-12 intact - Studies Microbiology Data (last 24 hrs): 11/25/20 18:24 Clean Catch Urine [place] Count - Final No growth. 11/25/20 18:24 Clean Catch Urine - Final No growth. Medications List Reviewed: Yes Assessment & Plan - Problems (Diagnosis) (1) Bipolar disorder Current Visit: Yes Status: Chronic Qualifiers: Active/Remission status: remission status unspecified Qualified Code(s): F31.9 - Bipolar disorder, unspecified (2) Chronic a-fib Current Visit: Yes Status: Chronic (3) Depression Current Visit: Yes Status: Chronic Qualifiers: Depression Type: unspecified Qualified Code(s): F32.9 - Major depressive disorder, single episode, unspecified (4) UTI (urinary tract infection) Current Visit: Yes Status: Acute (5) Toxic encephalopathy Current Visit: Yes Status: Acute (6) MRSA cellulitis Current Visit: Yes Status: Acute - Plan 1. Continue with IV antibiotic 2. Gentle IV hydration 3. Monitor CBC 4. Strict blood sugar monitoring 5. Monitor culture results 6. Await culture results 7. Monitor neurologic status 8. GI and DVT prophylaxis Discharge Plan: Home Plan to discharge in: Greater than 2 days - Advance Directives Does patient have a Living Will: No Does patient have a Durable POA for Healthcare: No - Code Status/Comfort Care Code Status: Full Code Critical Care: No Time Spent Managing PTS Care (In Minutes): 35
--- NOTE | 2020-11-28 09:22 | P.PN ---
Date of Service: 11/27/20 Subjective Patient more awake and alert. Patient is following commands. Clinically, patient is doing much better. Review of Systems 10-point ROS is otherwise unremarkable Physical Examination - Vital Signs Reviewed - Physical Exam General: Alert, In no apparent distress, Oriented x3 Respiratory: Clear to auscultation bilaterally, Normal air movement Cardiovascular: Regular rate/rhythm, Normal S1 S2, No murmurs Gastrointestinal: Normal bowel sounds, Soft and benign, Non-distended, No tenderness Musculoskeletal: No clubbing, No swelling, No tenderness Neurological: Sensation intact, Cranial nerves 3-12 intact Assessment & Plan - Problems (Diagnosis) (1) Bipolar disorder Current Visit: Yes Status: Chronic Qualifiers: Active/Remission status: remission status unspecified Qualified Code(s): F31.9 - Bipolar disorder, unspecified (2) Chronic a-fib Current Visit: Yes Status: Chronic (3) Depression Current Visit: Yes Status: Chronic Qualifiers: Depression Type: unspecified Qualified Code(s): F32.9 - Major depressive disorder, single episode, unspecified (4) UTI (urinary tract infection) Current Visit: Yes Status: Acute (5) Toxic encephalopathy Current Visit: Yes Status: Acute (6) MRSA cellulitis Current Visit: Yes Status: Acute - Plan Continue with plan of care as mentioned below: 1. Continue with IV antibiotic 2. Continue with IV hydration 3. Continue monitoring labs closely 4. Strict blood sugar monitoring 5. Monitor culture results 6. Await culture results 7. Monitor neurologic status 8. GI and DVT prophylaxis
[2020-11-28 09:38] VITALS: O2SAT 96
--- NOTE | 2020-11-28 09:47 | P.DS ---
Discharge Date: 11/28/20 Disposition: TRANSFER TO ALF Discharge Condition: GOOD Reason for Admission: UTI - Problems (1) Bipolar disorder Status: Chronic Qualifiers: Active/Remission status: remission status unspecified Qualified Code(s): F31.9 - Bipolar disorder, unspecified (2) Chronic a-fib Status: Chronic (3) Depression Status: Chronic Qualifiers: Depression Type: unspecified Qualified Code(s): F32.9 - Major depressive disorder, single episode, unspecified (4) UTI (urinary tract infection) Status: Acute (5) Toxic encephalopathy Status: Acute (6) MRSA cellulitis Status: Acute Brief History of Present Illness: Mr. Mitchell is a 75 yo male with Alzheimer's disease, chronic afib, HTN, hypothyroidism, history of seizures, depression, bipolar d/o and chronic constipation here today for 1 day of AMS and lethargy. He stays at [facility] and is normally AOx3. At bedside, he is oriented to person and place but not time. Unable to give history, resting at bedside. Denies pain and all symptoms. Hypotensive on arrival, now normotensive after receiving fluid bolus. CT head and CXR wnl. Urine dipstick: 1+ ketones, 3+ blood, 3+leukocytes, 1+ protein, 10- 20 RBCs, 5-10 WBCs. How long conversation with the staff at [facility] and patient does interacts fairly appropriately. He has normal conversations became be forgetful at times. However, on arrival he was obtunded. Hospital Course: Patient workup revealed a urinary tract infection with toxic encephalopathy. Patient's IV antibiotics have helped patient's symptoms. Patient is back to his baseline. At this time, he is stable for discharge home. Cultures are pending at this time. Vital Signs/Physical Exam: Temp Pulse Resp BP Pulse Ox 97.6 F 60 16 108/64 94 11/28/20 09:19 11/28/20 09:19 11/28/20 09:19 11/28/20 09:19 11/28/20 09:19 General: Alert, In no apparent distress, Oriented x3 Laboratory Data at Discharge: WBC 7.50 K/uL (4.3-10.9) 11/26/20 05:44 Hgb 15.9 g/dL (13.6-17.9) 11/26/20 05:44 Hct 47.3 % (39.6-49.0) 11/26/20 05:44 Plt Count 232 K/uL (152-406) 11/26/20 05:44 PT 14.0 SECONDS (9.5-12.5) H 11/25/20 19:14 INR 1.21 11/25/20 19:14 APTT 26.4 SECONDS (24.3-36.9) 11/25/20 19:14 Sodium 140 mmol/L (136-145) 11/28/20 05:44 Potassium 4.3 mmol/L (3.5-5.1) 11/28/20 05:44 BUN 13 mg/dL (7-18) 11/28/20 05:44 Creatinine 0.76 mg/dL (0.55-1.3) 11/28/20 05:44 Glucose 72 mg/dL (74-106) L 11/28/20 05:44 Phosphorus 2.8 mg/dL (2.5-4.9) 11/26/20 05:44 Magnesium 1.7 mg/dL (1.8-2.4) L 11/28/20 05:44 Total Bilirubin 0.4 mg/dL (0.2-1.0) 11/26/20 05:44 AST 23 U/L (15-37) 11/26/20 05:44 ALT 11 U/L (12-78) L 11/26/20 05:44 Alkaline Phosphatase 93 U/L (45-117) 11/26/20 05:44 Triglycerides 213 mg/dL (<150) H 11/26/20 05:44 Cholesterol 243 mg/dL (<200) H 11/26/20 05:44 HDL Cholesterol 47 mg/dL (40-60) 11/26/20 05:44 Cholesterol/HDL Ratio 5.17 11/26/20 05:44 Amylase 49 U/L (25-115) 11/25/20 19:58 Lipase 137 U/L (73-393) 11/25/20 19:58 Home Medications: Divalproex Sodium [Depakote ER] 1,000 mg PO BEDTIME 01/22/15 Donepezil [Aricept*] 10 mg PO BEDTIME 03/08/18 PHENYTOIN ER Cap [Dilantin ER Cap*] 200 mg PO BID 03/08/18 Amlodipine [Norvasc*] 2.5 mg PO DAILY 11/26/20 Calcium Carbonate/Vitamin D3 [Calcium 600-Vit D3 400 Tablet] 1 each PO DAILY 11/26/20 Divalproex ER [Depakote *ER] 250 mg PO DAILY 11/26/20 Fluoxetine HCl [Prozac] 40 mg PO DAILY 11/26/20 Furosemide [Lasix*] 40 mg PO BIDL 11/26/20 Gabapentin [Neurontin*] 100 mg PO TID 11/26/20 Hydrocodone 5/APAP 325 [Badger 5/325*] 1 tab PO Q8HP PRN 11/26/20 Hydrocortisone Cream [Hydrocortisone 1% Cream*] 1 appl TOP BID 11/26/20 Levothyroxine Sodium [Synthroid] 150 mcg PO 0600 11/26/20 Lidocaine [Aspercreme Lidocaine] 1 each TP DAILY 11/26/20 Metoprolol Tartrate 25 mg PO BID 11/26/20 Nitroglycerin [Nitrostat*] 0.4 mg SL SEECOM PRN 11/26/20 Omeprazole Magnesium [Acid Quality Assurance Coordinator] 20 mg PO DAILY 11/26/20 Polyethylene Glycol 3350 [Miralax] 17 gm PO DAILY 11/26/20 Trazodone HCl 100 mg PO BEDTIME 11/26/20 hydrOXYzine HCL [Atarax*] 25 mg PO BIDP PRN 11/26/20 predniSONE [Deltasone*] 10 mg PO DAILY 11/26/20 Mupirocin Oint [Bactroban 2% Ointment] 22 appl TOP BID #1 tube 11/28/20 Sulfamethoxazole/Trimethoprim [Bactrim Ds Tablet] 1 each PO BID #14 tablet 11/28/20 New Medications: Sulfamethoxazole/Trimethoprim [Bactrim Ds Tablet] 1 each PO BID #14 tablet Mupirocin Oint [Bactroban 2% Ointment] 22 appl TOP BID #1 tube Physician Discharge Instructions: PROBLEM: Urinary tract infection GOAL: Clear understanding of disease process INSTRUCTIONS: Diet: heart healthy Activity: Fall precautions OK TO DC IV AND DC back to [facility] FOLLOW-UP WITH PRIMARY CARE PROVIDER IN 1-2 days FOLLOW-UP WITH CARDIOLOGY IN 1-2 WEEKS RETURN TO THE ER IF symptoms worsen CALL or TEXT DR. MARIE AT [phone] IF ANY QUESTIONS REGARDING HOSPITAL STAY. PLEASE CALL THE FLOOR AT [phone] IF ANY MEDICATION OR NURSING QUESTIONS. Diet: AHA Activity: Fall precautions Followup: Paco Bond MD [ACTIVE - CAN ADMIT] - (Call to make an appointment. ) Unknown,U [Primary Care Provider] - Time spent managing pt's care (in minutes): 35
[2020-11-28 14:43] VITALS: BP 99/58; TEMP 98.2
== END 2020-11-28 12:39 | DRG 689 ==
LOC: ER 17:40 → ERHOLD 20:59 → 2ND 22:32
PROVIDERS: ADMIT Hospitalist; ATTEND Hospitalist
DX: N39.0 Urinary tract infection, site not specified (principal); G92 Toxic encephalopathy; I48.20 Chronic atrial fibrillation, unspecified; F05 Delirium due to known physiological condition; L03.90 Cellulitis, unspecified; L89.151 Pressure ulcer of sacral region, stage 1; E03.9 Hypothyroidism, unspecified; I10 Essential (primary) hypertension; F31.9 Bipolar disorder, unspecified; M19.90 Unspecified osteoarthritis, unspecified site; G30.9 Alzheimer's disease, unspecified; F02.80 Dementia in other diseases classified elsewhere, unspecified severity, without behavioral disturbance, psychotic disturbance, mood disturbance, and anxiety; K59.09 Other constipation; E78.5 Hyperlipidemia, unspecified; K21.9 Gastro-esophageal reflux disease without esophagitis; R31.9 Hematuria, unspecified; B95.62 Methicillin resistant Staphylococcus aureus infection as the cause of diseases classified elsewhere; Z88.0 Allergy status to penicillin; Z79.82 Long term (current) use of aspirin; Z79.01 Long term (current) use of anticoagulants; Z79.899 Other long term (current) drug therapy; Z79.890 Hormone replacement therapy; Z98.84 Bariatric surgery status; Z88.7 Allergy status to serum and vaccine; Z79.52 Long term (current) use of systemic steroids; Z20.822 Contact with and (suspected) exposure to COVID-19
CPT/HCPCS: 36415; 70450; 71045; 80048; 80053; 80061; 80076; 81003; 81015; 82150; 82550; 82553; 83605; 83690; 83735; 83880; 84100; 84145; 84439; 84443; 84484; 85025; 85610; 85730; 86140; 87040; 87070; 87077; 87086; 87088; 87186; 87205; 93005; 94760; 96374; 96375; 99285; J0692; J0696; J1650; J3370; J3475; J7030; J7050; U0003

== ENCOUNTER 2020-12-15 00:44 | Inpatient (IN) | payer OTHER ==
[2020-12-15 01:48] LABS: Absolute Lymphocytes (CBC) 1.2 K/uL (0.7-4.9); Basophils % 0.7 % (0-1.3); Hematocrit 51.3 % (39.6-49.0); Lymphocytes % 9.2 % (15.3-44.8); MPV 9.4 fL (7.6-11.3)
[2020-12-15 01:48] LABS: Urine Blood 1+ (Negative); Urine Glucose Negative (Negative); Urine Protein 1+ (Negative)
[2020-12-15 01:48] LABS: ALT/SGPT 11 U/L (12-78); AST/SGOT 21 U/L (15-37); Albumin 2.7 g/dL (3.4-5.0); Alkaline Phosphatase 68 U/L (45-117); Amylase 59 U/L (25-115); BUN Blood Urea Nitrogen 52 mg/dL (7-18); Bicarbonate 29 mmol/L (21-32); Bilirubin Direct 0.2 mg/dL (0-0.2); Bilirubin Total 0.5 mg/dL (0.2-1.0); CKMB Creatine Kinase MB < 1.0 ng/mL (0.3-3.6); Creatine Phosphokinase 326 U/L (39-308); Glucose Level 119 mg/dL (74-106); Lipase 138 U/L (73-393); Potassium 3.5 mmol/L (3.5-5.1); Protein, Total 7.7 g/dL (6.4-8.2); Sodium Level 150 mmol/L (136-145)
[2020-12-15] MEDS ORDERED: NA CHLORIDE 0.9% 1,000 ML ONE (01:51)
[2020-12-15 01:55] LABS: Protime INR 1.31
[2020-12-15 02:05] LABS: Barbiturates NEGATIVE (NEGATIVE); Benzodiazepines NEGATIVE (NEGATIVE); Cocaine NEGATIVE (NEGATIVE); METHAMPHETAM NEGATIVE (NEGATIVE); Methadone NEGATIVE (NEGATIVE); Opiates NEGATIVE (NEGATIVE); Phencyclidine NEGATIVE (NEGATIVE); THC Cannibis NEGATIVE (NEGATIVE)
[2020-12-15 02:08] LABS: Urine Bacteria 20-50 /HPF (NONE SEEN); Urine Mucus 2+ /HPF (NONE SEEN)
[2020-12-15 03:04] LABS: Phenytoin (Dilantin) Level 21.5 ug/mL (10.0-20.0)
--- NOTE | 2020-12-15 05:23 | ER ---
Nurse's Notes [facility] Name: Zbigniew Mitchell Age: 75 yrs Sex: Male : 1945 Arrival Date: 12/15/2020 Time: 00:51 Bed 6 Private MD: Diagnosis: Altered Mental Status;Urinary tract infection, site not specified;Elevated Troponin Presentation: 12/15 00:52 Chief complaint: EMS states: Pt is more altered than normal. He is lethargic and reacts jb4 only to painful stimuli. His bgl was 126. He was satting 90% on RA. He has a 18g to the right forearm and has had approximately 800ml of NS. The dyeing machine back tender from the [facility] said his last known normal was approximately 2 days ago. The production shift supervisor nurse reported finding him altered at 1999 yesterday. Coronavirus screen: Client denies travel out of the [place] in the last 14 days. At this time, the client does not indicate any symptoms associated with coronavirus-19. Ebola Screen: No symptoms or risks identified at this time. Initial Sepsis Screen: Does the patient meet any 2 criteria? Altered Mental Status. HR > 90 bpm. Yes Does the patient have a suspected source of infection? Yes: Catheter related infection (Gray/dialysis/PICC/central line) If YES to both, name of provider notified: Donny Perez MD Risk Assessment: Do you want to hurt yourself or someone else? Patient reports no desire to harm self or others. Onset of symptoms was December 15, 2020. Transition of care: patient was not received from another setting of care. 00:52 Method Of Arrival: EMS: [facility] jb4 00:52 Acuity: ANDRE 3 jb4 Historical: - Allergies: 01:00 PENICILLINS; jb4 - Home Meds: 01:00 acetaminophen 325 mg Oral tab 2 tabs q 8 hrs [Active]; Aricept 10 mg Oral tab 1 tab jb4 nightly [Active]; aspirin 81 mg Oral chew 1 tab once daily [Active]; Depakote ER 500 mg Oral Tb24 2 tabs nightly [Active]; Depakote ER 500 mg Oral Tb24 1 tab once daily [Active]; Dilantin 100 mg Oral 2 tab twice a day [Active]; Eliquis 2.5 mg Oral tab 1 tab 2 times per day [Active]; Eliquis 5 mg Oral tab 0.5 tab 2 times per day [Active]; furosemide 20 mg Oral tab 1 tab once daily [Active]; Cora-Tussin DM 10-100 mg/5 mL Oral syrp 15 mL TID [Active]; hydrocodone-acetaminophen 7.5-325 mg Oral tab 1 tab 8 hours [Active]; hydrocortisone 1 % Topical crea 2 times per day [Active]; loratadine 10 mg Oral tab 1 tab once daily [Active]; metoprolol tartrate 25 mg Oral tab 1 tab 2 times per day [Active]; Miralax 17 gram Oral pwpk 1 packet once daily [Active]; nitroglycerin 0.4 mg Oral cpER PRN [Active]; Prozac 40 mg Oral cap 1 cap once daily [Active]; Norvasc 2.5 mg Oral tab 1 tab twice a day [Active]; Neurontin 100 mg Oral cap nightly [Active]; omeprazole 20 mg Oral cpDR 1 cap once daily [Active]; Seroquel 25 mg Oral tab 1 tab 2 times per day [Active]; Synthroid 150 mcg Oral tab 1 tab once daily [Active]; trazodone 100 mg Oral tab 1 tab at bedtime [Active]; Vitamin D Oral 2000 unit daily [Active]; Zyrtec 10 mg Oral cap daily [Active]; - PMHx: 01:00 Atrial Fib; Bipolar disorder; Bronchitis; Cervicalgia; Chronic pain; constipation; jb4 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 Nutritional screening: No deficits noted. jb4 Tuberculosis screening: No symptoms or risk factors identified. Fall Risk None identified. Assessment: 01:00 General: Appears in no apparent distress. obese, unkempt, Behavior is drowsy. Pain: jb4 Denies pain. Neuro: Level of Consciousness is lethargic, Oriented to person. Cardiovascular: Patient's skin is warm and dry. Respiratory: Airway is patent Respiratory effort is even, unlabored, Respiratory pattern is regular, symmetrical. GI: No signs and/or symptoms were reported involving the gastrointestinal system. : Gray in place suprapubic catheter in place to gravity drainage. EENT: No signs and/or symptoms were reported regarding the EENT system. Derm: Skin is intact, Skin is pink, warm \T\ dry. Musculoskeletal: Circulation, motion, and sensation intact. Range of motion: intact in all extremities. 02:00 Reassessment: Patient appears in no apparent distress at this time. No changes from jb4 previously documented assessment. Patient and/or family updated on plan of care and expected duration. Pain level reassessed. 03:00 Reassessment: Pt remains lethargic with even, unlabored respirations. Reacts to painful jb4 stimuli, is very difficult to arouse. No s/s of pain or distress noted. 04:00 Reassessment: Patient appears in no apparent distress at this time. No changes from jb4 previously documented assessment. Patient and/or family updated on plan of care and expected duration. Pain level reassessed. 05:00 Reassessment: PT remains lethargic, awakens to painful stimuli. Will respond with head jb4 nods. Respirations are even and unlabored. No s/s of distress noted at this time. 06:00 Reassessment: Pt is resting in bed with eyes closed, respirations are even and jb4 unlabored with no s/s of pain or distress noted. 07:15 General: Appears obese, unkempt, Behavior is cooperative, drowsy. Neuro: Level of em Consciousness is lethargic, Oriented to person, place, Speech is slurred, Facial symmetry appears normal. Respiratory: Airway is patent Respiratory effort is even, unlabored, Respiratory pattern is regular, symmetrical. Derm: Skin is intact, Skin is pink, warm \T\ dry. 08:50 Reassessment: Patient appears in no apparent distress at this time. No changes from em previously documented assessment. Vital Signs: 00:52 BP 171 / 99; Pulse 105; Resp 18; Temp 98.2(TE); Pulse Ox 96% on R/A; Pain 0/10; jb4 01:27 Weight 108.86 kg (R); Height 6 ft. 0 in. (182.88 cm) (R); jb4 02:00 BP 133 / 65; Pulse 98; Resp 17; Pulse Ox 94% on R/A; jb4 03:00 BP 137 / 100; Pulse 100; Resp 17; Pulse Ox 91% on R/A; jb4 04:00 BP 132 / 89; Pulse 100; Resp 16; Pulse Ox 95% on R/A; jb4 05:00 BP 129 / 91; Pulse 104; Resp 16; Pulse Ox 95% on R/A; jb4 06:07 BP 143 / 104; Pulse 104; Resp 14; Pulse Ox 95% on R/A; jb4 07:22 BP 130 / 102; Pulse 105; Resp 15; Pulse Ox 99% on R/A; em 09:50 BP 113 / 93; Pulse 102; Resp 16 S; Pulse Ox 99% on R/A; em 01:27 Body Mass Index 32.55 (108.86 kg, 182.88 cm) jb4 ED Course: 00:51 Patient arrived in ED. jb4 00:53 Donny Perez MD is Attending Physician. mh7 00:55 Triage completed. jb4 01:00 Arm band placed on right wrist. jb4 01:16 Rik Hartman RN is Primary Nurse. jb4 01:33 Chest Single View XRAY In Process Unspecified. EDMS 03:22 Head Brain Wo Cont In Process Unspecified. EDMS 05:22 Jessika Nguyen MD is Hospitalizing Provider. mh7 07:15 Patient has correct armband on for positive identification. Side rails up X2. Cardiac em monitor on. Pulse ox on. NIBP on. 07:15 Maintain EMS IV. Dressing intact. Good blood return noted. Site clean \T\ dry. Gauge \T\ em site: 18 G RAC. 09:56 No provider procedures requiring assistance completed. Patient admitted, IV remains in em place. Administered Medications: Discontinued: NS 0.9% (30 ml/kg) 30 ml/kg IV at bolus once; Sepsis Protocol 01:41 Drug: NS 0.9% (30 ml/kg) 30 ml/kg Route: IV; Rate: bolus; Site: right antecubital; jb4 02:29 Follow up: IV Status: Order to discontinue infusion; IV Intake: 1200ml jb4 Intake: 02:29 IV: 1200ml; Total: 1200ml. jb4 Outcome: 05:23 Decision to Hospitalize by Provider. 7 09:57 Admitted to Tele accompanied by tech, via stretcher, room 401, with chart, Report em called to NOEL Benitez 09:57 Condition: stable 09:57 Instructed on the need for admit. 10:12 Patient left the ED. em Signatures: Dispatcher [employer] Joshua Nguyen RN RN em Bryson, James, RN RN jb4 Donny Perez MD MD mh7
--- NOTE | 2020-12-15 05:24 | EDPHYS ---
Physician Documentation [facility] Name: Zbigniew Mitchell Age: 75 yrs Sex: Male : 1945 Arrival Date: 12/15/2020 Time: 00:51 Bed 6 Private MD: ED Physician Donny Perez HPI: 12/15 01:08 This 75 yrs old Male presents to ER via EMS with complaints of Altered Mental mh7 Status. 01:08 The patient presents with decreased mental status. mh7 01:08 Onset: The symptoms/episode began/occurred 2 day(s) ago. Possible causes: unknown. mh7 Associated signs and symptoms: The patient has no apparent associated signs or symptoms. Current symptoms: In the emergency department the patient's symptoms are unchanged from the initial presentation. Historical: - Allergies: 01:00 PENICILLINS; jb4 - Home Meds: 01:00 acetaminophen 325 mg Oral tab 2 tabs q 8 hrs [Active]; Aricept 10 mg Oral tab 1 tab jb4 nightly [Active]; aspirin 81 mg Oral chew 1 tab once daily [Active]; Depakote ER 500 mg Oral Tb24 2 tabs nightly [Active]; Depakote ER 500 mg Oral Tb24 1 tab once daily [Active]; Dilantin 100 mg Oral 2 tab twice a day [Active]; Eliquis 2.5 mg Oral tab 1 tab 2 times per day [Active]; Eliquis 5 mg Oral tab 0.5 tab 2 times per day [Active]; furosemide 20 mg Oral tab 1 tab once daily [Active]; Cora-Tussin DM 10-100 mg/5 mL Oral syrp 15 mL TID [Active]; hydrocodone-acetaminophen 7.5-325 mg Oral tab 1 tab 8 hours [Active]; hydrocortisone 1 % Topical crea 2 times per day [Active]; loratadine 10 mg Oral tab 1 tab once daily [Active]; metoprolol tartrate 25 mg Oral tab 1 tab 2 times per day [Active]; Miralax 17 gram Oral pwpk 1 packet once daily [Active]; nitroglycerin 0.4 mg Oral cpER PRN [Active]; Prozac 40 mg Oral cap 1 cap once daily [Active]; Norvasc 2.5 mg Oral tab 1 tab twice a day [Active]; Neurontin 100 mg Oral cap nightly [Active]; omeprazole 20 mg Oral cpDR 1 cap once daily [Active]; Seroquel 25 mg Oral tab 1 tab 2 times per day [Active]; Synthroid 150 mcg Oral tab 1 tab once daily [Active]; trazodone 100 mg Oral tab 1 tab at bedtime [Active]; Vitamin D Oral 2000 unit daily [Active]; Zyrtec 10 mg Oral cap daily [Active]; - PMHx: 01:00 Atrial Fib; Bipolar disorder; Bronchitis; Cervicalgia; Chronic pain; constipation; jb4 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 7 Exam: 01:08 Head/Face: Normocephalic, atraumatic. Eyes: Pupils equal round and reactive to light, mh7 extra-ocular motions intact. Lids and lashes normal. Conjunctiva and sclera are non-icteric and not injected. Cornea within normal limits. Periorbital areas with no swelling, redness, or edema. Neck: Trachea midline, no thyromegaly or masses palpated, and no cervical lymphadenopathy. Supple, full range of motion without nuchal rigidity, or vertebral point tenderness. No Meningismus. Chest/axilla: Normal chest wall appearance and motion. Nontender with no deformity. No lesions are appreciated. 01:08 Respiratory: Lungs have equal breath sounds bilaterally, clear to auscultation and percussion. No rales, rhonchi or wheezes noted. No increased work of breathing, no retractions or nasal flaring. Abdomen/GI: Soft, non-tender, with normal bowel sounds. No distension or tympany. No guarding or rebound. No evidence of tenderness throughout. Back: No spinal tenderness. No costovertebral tenderness. Full range of motion. Skin: Warm, dry with normal turgor. Normal color with no rashes, no lesions, and no evidence of cellulitis. 01:08 Constitutional: The patient appears in no acute distress, arousal to voice, confused 01:08 Cardiovascular: Rate: tachycardic, Rhythm: regular, Pulses: no pulse deficits are appreciated, Heart sounds: normal, normal S1and S2, Edema: is not appreciated, JVD: is not appreciated. 01:08 Neuro: Orientation: to person, Mentation: responsive to voice confused, Memory: unable to test, AMS, Cranial nerves: unable to test, AMS, Cerebellar function: unable to test, AMS, Motor: unable to test, AMS, Sensation: unable to test, AMS, Gait: not tested. seizure activity, is not displayed by the patient, Abnormal movements: there are no abnormal movements. Vital Signs: 00:52 BP 171 / 99; Pulse 105; Resp 18; Temp 98.2(TE); Pulse Ox 96% on R/A; Pain 0/10; jb4 01:27 Weight 108.86 kg (R); Height 6 ft. 0 in. (182.88 cm) (R); jb4 02:00 BP 133 / 65; Pulse 98; Resp 17; Pulse Ox 94% on R/A; jb4 03:00 BP 137 / 100; Pulse 100; Resp 17; Pulse Ox 91% on R/A; jb4 04:00 BP 132 / 89; Pulse 100; Resp 16; Pulse Ox 95% on R/A; jb4 05:00 BP 129 / 91; Pulse 104; Resp 16; Pulse Ox 95% on R/A; jb4 06:07 BP 143 / 104; Pulse 104; Resp 14; Pulse Ox 95% on R/A; jb4 07:22 BP 130 / 102; Pulse 105; Resp 15; Pulse Ox 99% on R/A; em 09:50 BP 113 / 93; Pulse 102; Resp 16 S; Pulse Ox 99% on R/A; em 01:27 Body Mass Index 32.55 (108.86 kg, 182.88 cm) jb4 MDM: 05:20 Differential Diagnosis: electrolyte abnormality, hypoglycemia, intracranial bleed, mh7 overdose, seizure, sepsis, UTI, volume depletion. Data reviewed: vital signs, nurses notes, lab test result(s), cardiac enzymes, CBC, electrolytes, urinalysis, urine drug screen, EKG, radiologic studies, CT scan, plain films. Data interpreted: Pulse oximetry: on room air is 95 %. Interpretation: normal. Counseling: I had a detailed discussion with the patient and/or guardian regarding: the historical points, exam findings, and any diagnostic results supporting the discharge/admit diagnosis, lab results, radiology results, the need for further work-up and treatment in the hospital. Response to treatment: the patient's symptoms have mildly improved after treatment. 05:23 Patient medically screened. [facility] 12/15 00:59 Order name: Amylase, Serum [facility] 12/15 00:59 Order name: Basic Metabolic Panel [facility] 12/15 00:59 Order name: Blood Culture Adult (2) [facility] 12/15 00:59 Order name: CBC with Diff [facility] 12/15 00:59 Order name: Ckmb; Complete Time: 02:13 [facility] 12/15 00:59 Order name: CPK; Complete Time: 02:13 [facility] 12/15 00:59 Order name: Lactate; Complete Time: 02:13 [facility] 12/15 00:59 Order name: LFT's; Complete Time: 02:13 [facility] 12/15 00:59 Order name: Lipase; Complete Time: 02:13 [facility] 12/15 00:59 Order name: Protime (+inr); Complete Time: 02:13 [facility] 12/15 00:59 Order name: Ptt, Activated; Complete Time: 02:13 [facility] 12/15 00:59 Order name: Troponin (emerg Dept Use Only); Complete Time: 02:13 [facility] 12/15 00:59 Order name: Urine Microscopic Only; Complete Time: 02:13 [facility] 12/15 00:59 Order name: Amylase; Complete Time: 02:13 [facility] 12/15 00:59 Order name: Basic Metabolic Panel; Complete Time: 02:13 [facility] 12/15 00:59 Order name: Blood Culture [facility] 12/15 00:59 Order name: CBC with Automated Diff; Complete Time: 02:13 [facility] 12/15 01:00 Order name: ETOH Level [facility] 12/15 01:00 Order name: UDS; Complete Time: 02:13 [facility] 12/15 01:00 Order name: AMMONIA; Complete Time: 02:13 [facility] 12/15 01:00 Order name: Depakote; Complete Time: 04:00 [facility] 12/15 01:00 Order name: Dilantin; Complete Time: 04:00 [facility] 12/15 01:00 Order name: Acetaminophen; Complete Time: 04:00 [facility] 12/15 01:00 Order name: Salicylate; Complete Time: 04:00 [facility] 12/15 01:01 Order name: Alcohol Serum/Plasma; Complete Time: 02:13 [facility] 12/15 01:23 Order name: Glucose, Ancillary Testing; Complete Time: 02:13 [facility] 12/15 01:48 Order name: Urine Dipstick-Ancillary [facility] 12/15 02:09 Order name: Urine Culture [facility] 12/15 02:14 Order name: PROBNP; Complete Time: 04:00 [facility] 12/15 00:59 Order name: Chest Single View XRAY [facility] 12/15 00:59 Order name: Accucheck; Complete Time: 01:18 [facility] 12/15 00:59 Order name: Cardiac monitoring; Complete Time: 01:58 [facility] 12/15 00:59 Order name: EKG - Nurse/Tech; Complete Time: 01:58 [facility] 12/15 00:59 Order name: IV Saline Lock - Large Bore; Complete Time: 01:28 [facility] 12/15 00:59 Order name: Labs collected and sent; Complete Time: 01:42 [facility] 12/15 00:59 Order name: O2 Per Protocol; Complete Time: 01:28 [facility] 12/15 00:59 Order name: O2 Sat Monitoring; Complete Time: 01:28 [facility] 12/15 00:59 Order name: Urine Dipstick-Ancillary (obtain specimen); Complete Time: 01:59 [facility] 12/15 03:05 Order name: Head Brain Wo Cont [facility] 12/15 05:26 Order name: CONS Physician Consult [facility] 12/15 08:55 Order name: SARS-COV-2 RT PCR [facility] Administered Medications: Discontinued: NS 0.9% (30 ml/kg) 30 ml/kg IV at bolus once; Sepsis Protocol 01:41 Drug: NS 0.9% (30 ml/kg) 30 ml/kg Route: IV; Rate: bolus; Site: right antecubital; jb4 02:29 Follow up: IV Status: Order to discontinue infusion; IV Intake: 1200ml jb4 Disposition: 12/15/20 05:23 Hospitalization ordered by Jessika Nguyen for Inpatient Admission. Preliminary diagnosis are Altered Mental Status, Urinary tract infection, site not specified, Elevated Troponin. - Bed requested for Telemetry/MedSurg (Inpatient). - Status is Inpatient Admission. em - Condition is Stable. - Problem is new. - Symptoms have improved. Signatures: Dispatcher [employer] EDIA Joshua Frederick, RN RN em Victoriano Cuellar em1 Rik Hartman RN RN jb4 Donny Perez MD MD 7 Corrections: (The following items were deleted from the chart) 03:03 01:01 Head Brain Wo Cont+CT.RAD.BRZ ordered. EDIA EDMS 05:56 04:57 CORONAVIRUS+MR.LAB.BRZ ordered. EDIA EDIA 09:35 05:23 Hospitalization Ordered by Jessika Nguyen MD for Inpatient Admission. Preliminary em1 diagnosis is Altered Mental Status; Urinary tract infection, site not specified; Elevated Troponin. Bed requested for Telemetry/MedSurg (Inpatient). Status is Inpatient Admission. Condition is Stable. Problem is new. Symptoms have improved. 7 10:12 09:35 12/15/2020 05:23 Hospitalization Ordered by Jessika Nguyen MD for Inpatient em Admission. Preliminary diagnosis is Altered Mental Status; Urinary tract infection, site not specified; Elevated Troponin. Bed requested for Telemetry/MedSurg (Inpatient). Status is Inpatient Admission. Condition is Stable. Problem is new. Symptoms have improved. em1
--- NOTE | 2020-12-15 05:52 | P.HP ---
Certification for Inpatient Patient admitted to: Inpatient With expected LOS: >2 Midnights Patient will require the following post-hospital care: None Practitioner: I am a practitioner with admitting privileges, knowledge of patient current condition, hospital course, and medical plan of care. Services: Services provided to patient in accordance with Admission requirements found in Title 42 Section 412.3 of the Code of Federal Regulations Patient History Date of Service: 12/15/20 Reason for admission: AMS, UTI History of Present Illness: Stephen is a 75 yo male with Alzheimer's disease, chronic afib, HTN, hypothyroidism, history of seizures, depression, bipolar d/o and chronic constipation here today from [facility] for AMS of unknown duration. He comes from [facility] and is normally AOx3. Unable to give history at bedside. Facial grimacing and repetitive movements. CT head and CXR wnl. WBC 13. Na 150, BUN 52, Cr 1.97, GFR 33. Glu 128. Trop 0.1. BNP 2605. Albumin 2.7. Urine + for RBCs, WBCs, bacteria. Allergies Penicillins Allergy (Verified 11/26/20 00:08) Anaphylaxis rabies bat serum Allergy (Uncoded 11/26/20 00:08) Rash Home Medications: Divalproex Sodium [Depakote ER] 1,000 mg PO BEDTIME 01/22/15 Donepezil [Aricept*] 10 mg PO BEDTIME 03/08/18 PHENYTOIN ER Cap [Dilantin ER Cap*] 200 mg PO BID 03/08/18 Amlodipine [Norvasc*] 2.5 mg PO DAILY 11/26/20 Calcium Carbonate/Vitamin D3 [Calcium 600-Vit D3 400 Tablet] 1 each PO DAILY 11/26/20 Divalproex ER [Depakote *ER] 250 mg PO DAILY 11/26/20 Fluoxetine HCl [Prozac] 40 mg PO DAILY 11/26/20 Furosemide [Lasix*] 40 mg PO BIDL 11/26/20 Gabapentin [Neurontin*] 100 mg PO TID 11/26/20 Hydrocodone 5/APAP 325 [[place] 5/325*] 1 tab PO Q8HP PRN 11/26/20 Hydrocortisone Cream [Hydrocortisone 1% Cream*] 1 appl TOP BID 11/26/20 Levothyroxine Sodium [Synthroid] 150 mcg PO 0600 11/26/20 Lidocaine [Aspercreme Lidocaine] 1 each TP DAILY 11/26/20 Metoprolol Tartrate 25 mg PO BID 11/26/20 Nitroglycerin [Nitrostat*] 0.4 mg SL SEECOM PRN 11/26/20 Omeprazole Magnesium [Acid Garment Mender] 20 mg PO DAILY 11/26/20 Polyethylene Glycol 3350 [Miralax] 17 gm PO DAILY 11/26/20 Trazodone HCl 100 mg PO BEDTIME 11/26/20 hydrOXYzine HCL [Atarax*] 25 mg PO BIDP PRN 11/26/20 predniSONE [Deltasone*] 10 mg PO DAILY 11/26/20 Mupirocin Oint [Bactroban 2% Ointment] 22 appl TOP BID #1 tube 11/28/20 Sulfamethoxazole/Trimethoprim [Bactrim Ds Tablet] 1 each PO BID #14 tablet 11/28/20 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; cervicalgia; Chronic pain; constipation -: Atrial Fib; frequent falls; osteoarthritis -: Bronchitis; Hyperlipidemia; Bipolar disorder; encephalopathy; Diverticuliti -: Hypertension; Hypothyroidism; Seizures; Depression -: DEPRESSION -: DIVERTICULITIS -: CONSTIPATION -: MUSCLE WASTING/ATROPHY -: ALLERGIC RHINITIS -: NON-DISPLACED FRACTURE OF THE LEFT HUMERUS -: COGNITIVE COMMUNICATION DEFICIT -: OSTEOPOROSIS Past Surgical History: Unable to obtain - Family History pARENTS Notes: PT IS CONFUSED; UNABLE TO RECALL/STATE - Social History Smoking Status: Never smoker Alcohol use: No CD- Drugs: No Caffeine use: No Place of Residence: Home Review of Systems is unable to be obtained Physical Examination - Physical Exam General: Other (lethargic) HEENT: Atraumatic, Normocephalic, PERRLA, Mucous membr. moist/pink, EOMI, Sclerae nonicteric Neck: Supple, 2+ carotid pulse no bruit, JVD not distended, No Thyromegaly, No LAD Respiratory: Clear to auscultation bilaterally, Normal air movement Cardiovascular: No edema, No gallops, No rubs, Other (rate controlled afib), Irregular heart rate/rhythm Capillary refill: <2 Seconds Gastrointestinal: Normal bowel sounds, Soft and benign, Non-distended, No ascites, No tenderness, No masses, No rebound, No guarding Musculoskeletal: No clubbing, No swelling, No contractures, No erythema, No tenderness, No warmth Integumentary: No rashes, No breakdown, No significant lesion, No tenderness/swelling, No erythema, No warmth, No cyanosis, Other (scar on left upper arm) Neurological: Abnormal speech, Abnormal affect Lymphatics: No axilla or inguinal lymphadenopathy Urinary: Hankins catheter - Studies Laboratory Data (last 24 hrs) 12/15/20 01:40: PT 15.1 H, INR 1.31, APTT 27.3 12/15/20 01:40: WBC 13.00 H, Hgb 16.9, Hct 51.3 H, Plt Count 242 12/15/20 01:10: Sodium 150 H, Potassium 3.5, BUN 52 H, Creatinine 1.97 H, Glucose 119 H, Total Bilirubin 0.5, AST 21, ALT 11 L, Alkaline Phosphatase 68, Amylase 59, Lipase 138 Assessment and Plan - Problems (Diagnosis) (1) AMS (altered mental status) Current Visit: Yes Status: Acute Qualifiers: Altered mental status type: unspecified Qualified Code(s): R41.82 - Altered mental status, unspecified (2) UTI (urinary tract infection) Current Visit: No Status: Acute Qualifiers: Urinary tract infection type: site unspecified Hematuria presence: with hematuria Qualified Code(s): N39.0 - Urinary tract infection, site not specified; R31.9 - Hematuria, unspecified (3) Alzheimer's dementia Onset Date: 03/08/18 Current Visit: No Status: Chronic (4) Bipolar disorder Current Visit: No Status: Chronic Qualifiers: Active/Remission status: remission status unspecified Qualified Code(s): F31.9 - Bipolar disorder, unspecified (5) Chronic a-fib Current Visit: No Status: Chronic (6) Depression Current Visit: No Status: Chronic Qualifiers: Depression Type: unspecified Qualified Code(s): F32.9 - Major depressive disorder, single episode, unspecified (7) History of hypertension Onset Date: 03/08/18 Current Visit: No Status: Chronic (8) History of seizure disorder Onset Date: 03/08/18 Current Visit: No Status: Chronic (9) Hypothyroidism Current Visit: No Status: Chronic Qualifiers: Hypothyroidism type: unspecified Qualified Code(s): E03.9 - Hypothyroidism, unspecified - Plan IV levaquin for UTI gentle fluid hydration, consult nephrology, monitor BMP for sodium correction hankins catheter urine culture, blood culture pending trend troponins consult neurology for TD, AMS. CT Head negative. reconcile and continue home medications dietitian consulted , A1c pending Discharge Plan: Home Plan to discharge in: 72 Hours - Advance Directives Does patient have a Living Will: No Does patient have a Durable POA for Healthcare: No - Code Status/Comfort Care Code Status Assessed: Yes (full code ) Critical Care: No Time Spent Managing Pts Care (In Minutes): 70
--- NOTE | 2020-12-15 07:59 | RAD REPORT ---
EXAM DESCRIPTION: Francisca Single View12/15/2020 1:35 am CLINICAL HISTORY: Atrial fibrillation. Alteration consciousness COMPARISON: November 25, 2020 FINDINGS: The lungs appear clear of acute infiltrate. The heart is normal size IMPRESSION: No acute abnormalities displayed
[2020-12-15] MEDS ORDERED: ONDANSETRON 4 MG/2 ML VIAL IV PRN (10:35)
[2020-12-15] MEDS: INSULIN -REGULAR HUMAN 50 UNIT/0.5 ML ML SQ SCH ×3 (10:35→17:13)
[2020-12-15 11:57] LABS: Potassium 3.6 mmol/L (3.5-5.1); Troponin I 0.09 ng/mL (0.0-0.045)
[2020-12-15] MEDS: Levofloxacin500mg IV 500 MG/100 ML BAG IV SCH (12:14)
[2020-12-15] MEDS: D5W 1,000 ML IV SCH (12:16)
[2020-12-15 13:55] LABS: Magnesium 2.2 mg/dL (1.8-2.4); Phosphorus 3.7 mg/dL (2.5-4.9)
[2020-12-15] MEDS ORDERED: KCL 20 MEQ/100 mL IVPB 20 MEQ/100 ML BAG IV SCH (15:00)
--- NOTE | 2020-12-15 15:41 | P.PN ---
Date of Service: 12/15/20 Patient seen and examined. He is awake and interactive though confused. He has tachycardic, has mild leukocytosis and meet criteria for sepsis. No fever. Patient failed bedside swallow test. Plan: Continue IV Levaquin. Add IV vancomycin Follow cultures. Keep NPO Speech evaluation. IV hydration with dextrose. Elevated troponin likely secondary to demand ischemia. Troponin trended flat and ACS is not likely.
--- NOTE | 2020-12-15 17:12 | P.CNS ---
Date of Consult: 12/15/20 Reason for Consult: Hypernatremia, EMERY. Requesting Physician: Vince Sims Chief Complaint: AMS, UTI History of Present Illness: 75 y o male pt with hx of HTN, Dementia, Hypothyroidism, hyperlipidemia, Chronic A fib and CAD who was admitted for management of AMS. He was found to have UTI and hypernatremia and was admitted for IV antibiotics and correction of electrolyte abnormalities. No meaningful ROS obtainable. Allergies Penicillins Allergy (Verified 11/26/20 00:08) Anaphylaxis rabies bat serum Allergy (Uncoded 11/26/20 00:08) Rash Home Medications: Divalproex Sodium [Depakote ER] 2 tab PO BEDTIME 01/22/15 Donepezil [Aricept*] 10 mg PO BEDTIME 03/08/18 PHENYTOIN ER Cap [Dilantin ER Cap*] 2 cap PO BID 03/08/18 Amlodipine [Norvasc*] 2.5 mg PO DAILY 11/26/20 Calcium Carbonate/Vitamin D3 [Calcium 600-Vit D3 400 Tablet] 1 each PO DAILY 11/26/20 Divalproex ER [Depakote *ER] 250 mg PO DAILY 11/26/20 Fluoxetine HCl [Prozac] 40 mg PO DAILY 11/26/20 Furosemide [Lasix*] 40 mg PO BIDL 11/26/20 Gabapentin [Neurontin*] 100 mg PO TID 11/26/20 Hydrocodone 5/APAP 325 [[place] 5/325*] 1 tab PO Q8HP PRN 11/26/20 Hydrocortisone Cream [Hydrocortisone 1% Cream*] 1 appl TOP BID 11/26/20 Levothyroxine Sodium [Synthroid] 150 mcg PO [id number] 11/26/20 Lidocaine [Aspercreme Lidocaine] 1 each TP DAILY 11/26/20 Metoprolol Tartrate 25 mg PO BID 11/26/20 Nitroglycerin [Nitrostat*] 0.4 mg SL PRN PRN 11/26/20 Omeprazole Magnesium [Acid Labor Relations Specialist] 20 mg PO DAILY 11/26/20 Polyethylene Glycol 3350 [Miralax] 17 gm PO DAILY 11/26/20 Trazodone HCl 100 mg PO BEDTIME 11/26/20 hydrOXYzine HCL [Atarax*] 25 mg PO BIDP PRN 11/26/20 Apixaban [Eliquis] 2.5 mg PO BID 12/15/20 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; cervicalgia; Chronic pain; constipation -: Atrial Fib; frequent falls; osteoarthritis -: Bronchitis; Hyperlipidemia; Bipolar disorder; encephalopathy; Diverticuliti -: Hypertension; Hypothyroidism; Seizures; Depression -: DEPRESSION -: DIVERTICULITIS -: CONSTIPATION -: MUSCLE WASTING/ATROPHY -: ALLERGIC RHINITIS -: NON-DISPLACED FRACTURE OF THE LEFT HUMERUS -: COGNITIVE COMMUNICATION DEFICIT -: OSTEOPOROSIS - Family History pARENTS Notes: PT IS CONFUSED; UNABLE TO RECALL/STATE - Social History Smoking Status: Unknown if ever smoked Alcohol use: No CD- Drugs: No Caffeine use: No Place of Residence: Home Review of Systems is unable to be obtained (due to AMS.) General: Fever, Chills Physical Examination Temp Pulse Resp BP Pulse Ox 97.1 F 106 H 20 142/87 H 98 12/15/20 10:35 12/15/20 10:35 12/15/20 10:35 12/15/20 10:35 12/15/20 10:35 General: Delirious HEENT: Atraumatic, Normocephalic Neck: Supple Respiratory: Normal air movement Cardiovascular: Regular rate/rhythm, Normal S1 S2 Gastrointestinal: Soft and benign Musculoskeletal: No swelling Neurological: Other (altered.) Laboratory Data (last 24 hrs) 12/15/20 01:40: PT 15.1 H, INR 1.31, APTT 27.3 12/15/20 01:40: WBC 13.00 H, Hgb 16.9, Hct 51.3 H, Plt Count 242 12/15/20 01:10: Sodium 150 H, Potassium 3.5, BUN 52 H, Creatinine 1.97 H, G lucose 119 H, Total Bilirubin 0.5, AST 21, ALT 11 L, Alkaline Phosphatase 68, Amylase 59, Lipase 138 Conclusions/Impression: 1. Hypernatremia- Sodium was elevated at 152 on admission. D5W infusion has been started. we will monitor trend of his sodium level closely. 2. EMERY-Elevated creatinine of 1.87 noted on labs. this has trended down to 1.67 after Iv fluid was started. we will continue routine monitoring of his renal function. we will avoid nephrotoxins and dose mesd for eGFR. 3. Hypocalcemia-Calcium is low at 8.3. we will continue calcium supplementation. 4. UTI-Empiric levaquin has been started. we will continue monitoring of urine culture and adjust antibiotics as per antibiogram. 5. AMS-deemed due to sepsis/hypernatremia. we will continue D5W infusion and empiric antibiotics and monitor his mentation closely.
[2020-12-15 18:36] LABS: Urine Appearance CLEAR (Clear); Urine Blood TRACE (Negative); Urine Color YELLOW (Yellow); Urine Glucose NEGATIVE (Negative); Urine Protein NEGATIVE (Negative); Urine Specific Gravity 1.025 (1.005-1.030); Urine pH 5.5 (5.0-7.0)
[2020-12-15 19:09] LABS: Urine Bilirubin NEGATIVE (Negative); Urine Microscopic Reflex ORDER UMIC
[2020-12-15 19:30] LABS: Urine Amorphous Sediment 1+ /HPF (NONE SEEN); Urine Mucus 3+ /HPF (NONE SEEN)
[2020-12-15 19:32] LABS: Urine Bacteria 20-50 /HPF (NONE SEEN)
--- NOTE | 2020-12-15 20:05 | RAD REPORT ---
EXAM DESCRIPTION: CT - Head Brain Wo Cont - 12/15/2020 6:15 am CLINICAL HISTORY: The patient is 75 years old and is Male; SEPSIS TECHNIQUE: Axial computed tomography images of the head/brain without intravenous contrast. Sagitt al and coronal reformatted images were created and reviewed. This CT exam was performed using one o r more of the following dose reduction techniques: automated exposure control, adjustment of the mA and/or kV according to patient size, and/or use of iterative reconstruction technique. COMPARISON: CT head 11/25/2020. 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 Moderate cerebral atrophy. No hemorrhage. No significant white matter disease. Ventricles: Moderate ventricular prominence. Bones/joints: Postsurgical changes related to an occipital craniectomy. No acute fracture. Soft tissues: Unremarkable. Sinuses: Unremarkable as visualized. Mastoid air cells: Unremarkable as visualized. No mastoid effusion. IMPRESSION: No acute intracranial abnormality. Electronically signed by: Aroldo Callejas MD 12/15/2020 3:46 AM CDT Due to temporary technical issues with the PACS/Fluency reporting system, reports are being signed by the in house radiologists without review as a courtesy to insure prompt reporting. The interpreting radiologist is fully responsible for the content of the report.
[2020-12-16] MEDS: D5W 1,000 ML IV SCH ×2 (00:38→13:15)
[2020-12-16 03:53] LABS: Absolute Lymphocytes (CBC) 1.1 K/uL (0.7-4.9); Basophils % 0.5 % (0-1.3); Hematocrit 45.9 % (39.6-49.0); Lymphocytes % 15.5 % (15.3-44.8); MPV 9.6 fL (7.6-11.3); RBC Red Blood Cell Count 4.51 M/uL (4.33-5.43)
[2020-12-16 05:09] LABS: Albumin 2.3 g/dL (3.4-5.0); Bilirubin Total 0.4 mg/dL (0.2-1.0); Potassium 3.4 mmol/L (3.5-5.1); Protein, Total 6.6 g/dL (6.4-8.2); Thyroid Stimulating Hormone 2.08 uIU/mL (0.360-3.740)
[2020-12-16] MEDS: INSULIN -REGULAR HUMAN 50 UNIT/0.5 ML ML SQ SCH ×5 (06:00→21:00)
[2020-12-16] MEDS ORDERED: POTASSIUM PHOS IN 0.9 % NACL 15 MMOL/250 ML BAG IV ONE (08:00)
[2020-12-16] MEDS ORDERED: KCL 20 MEQ/100 mL IVPB 20 MEQ/100 ML BAG IV SCH (09:00)
[2020-12-16] MEDS: Levofloxacin500mg IV 500 MG/100 ML BAG IV SCH (14:12)
--- NOTE | 2020-12-16 14:57 | P.PN ---
Subjective Date of Service: 12/16/20 Chief Complaint: AMS, UTI Patient remained confused. Urine culture yielded no growth. He is persistently hypernatremic. Physical Examination - Vital Signs Temperature: 96.9 F Blood Pressure: 118/80 Pulse: 104 Respirations: 16 Pulse Ox (%): 94 - Physical Exam General: Confused HEENT: Mucous membr. moist/pink Neck: Supple, JVD not distended Respiratory: Clear to auscultation bilaterally, Normal air movement Cardiovascular: No edema, Regular rate/rhythm, Normal S1 S2 Gastrointestinal: Soft and benign, Non-distended, No tenderness Musculoskeletal: No swelling, No tenderness Integumentary: No rashes Neurological: Other (Nonfocal.) - Studies Microbiology Data (last 24 hrs): 12/15/20 01:22 Blood - Blood Anaerobic Blood Culture - Final Assessment And Plan - Current Problems (Diagnosis) (1) Metabolic encephalopathy Current Visit: Yes Status: Acute (2) AMS (altered mental status) Current Visit: Yes Status: Acute Qualifiers: Altered mental status type: unspecified Qualified Code(s): R41.82 - Altered mental status, unspecified (3) UTI (urinary tract infection) Current Visit: No Status: Acute Qualifiers: Urinary tract infection type: site unspecified Hematuria presence: with hematuria Qualified Code(s): N39.0 - Urinary tract infection, site not specified; R31.9 - Hematuria, unspecified (4) Acute renal failure Current Visit: Yes Status: Acute (5) Alzheimer's dementia Onset Date: 03/08/18 Current Visit: No Status: Chronic (6) Chronic a-fib Current Visit: No Status: Chronic (7) Dysphagia Current Visit: Yes Status: Acute - Plan Nephrology input appreciated. Urine culture: No growth. Continue IV Levaquin. IV D5 water for hypernatremia. Renal function is improving with IV hydration. Nephrology is following. Patient seen by speech. Mechanical soft diet and thin liquids recommended after speech evaluation. Resume home medications.
[2020-12-16] MEDS: APIXABAN 2.5 MG TABLET PO SCH (20:59)
[2020-12-16] MEDS: METOPROLOL TAR 25 MG TAB PO SCH (21:00)
[2020-12-16] MEDS: DONEPEZIL HCL 5 MG TAB PO SCH (21:00)
[2020-12-16] MEDS: DIVALPROEX ER 250 MG TAB PO SCH (21:00)
[2020-12-16] MEDS: PHENYTOIN ER 100 MG CAP PO SCH (21:01)
--- NOTE | 2020-12-16 21:11 | CON ---
Reason For Consultation: Consultation called by hospitalist because of altered mental status. History Of Present Illness: Mr. Mitchell is a 75-year-old patient with Alzheimer's disease, atrial fibril lation, hypertension, hypothyroidism, seizures, depression, bipolar disorder, who comes from a [facility] with worsening altered mental status, although it is not clear how the patient actually change d given his significant amount of cognitive deficits at our baseline. The patient could not give a h istory based on his level of cognitive dysfunction. However, he was alert and did follow instruction s to move both hands, did not follow instructions to move his legs at the time I saw him. At [facility] on admission, his white blood cell count was elevated slightly to 13 with 80% neutrophil s, today it is normal at 7.1 with 73% neutrophils. His electrolytes were significantly off, but sodi um being 150, potassium 3.4, chloride 113, BUN was elevated at 141, calcium was low at 7.3, has free T4 low at 0.75, triglycerides slightly elevated, cholesterol also slightly elevated and troponins. U rinalysis showed 20-50 bacteria, 5-10 red blood cells, trace ketones, trace of blood, and 3+ urine mu cus. His COVID-19 test was negative. His valproic acid level was low at 16. Phenytoin level slight ly elevated at 21.5. He did have a head CT scan, which showed no acute ischemic or hemorrhagic vivas e. Past Medical History: As indicated, he has multiple medical problems. Allergies: PENICILLIN AND RABIES BAT SERUM. 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 Family History: Unable to assess at this point. Review of Systems: Not reliable given the patient's poor responsiveness. Physical Examination: Vital Signs: Blood pressure 118/80, pulse up to 104, temperature 97.6, respiratory rate 16, oxygen s aturation 94% on room air. General: Mr. Mitchell is resting in bed. He is in no significant distress. HEENT: He appears to be normocephalic, atraumatic. His sclerae are anicteric. His oropharynx is mo ist. Neck: Supple. Chest: Clear. Extremities: Poorly kept nails with mild stasis noted in the lower extremities and mild edema, but n o cyanosis. Neurological: He is alert and oriented to person. He follows simple commands to move the upper extr emities to show thumbs up side to show 2 fingers, but did not move his lower extremities to command. His tone is slightly increased in both upper and lower extremities. Sensation appears decreased to light touch in a stocking-glove fashion and unable to assess his gait and coordination fully. Assessment: Mr. Mitchell is a 75-year-old patient with significant reasons for encephalopathy. He likely has an acute on chronic process. His chronic process is Alzheimer's disease with apparent moderate dementia. His superimposed process is his electrolyte abnormalities, potential for infection, which is now actually improved with slightly elevated phenytoin of 21 above therapeutic level, although not likely to cause significant issues. It is not clear if he has had a recent seizure. His Depakote l evel is subtherapeutic at just 16. Further, his free T4 appears to be low. He is on Synthroid or th yroid replacement. Please note that actually in terms of systemic infections, that is likely ruled o ut with procalcitonin being normal at 0.05 and his lactic acid level was elevated at 2.6. Plan: The patient is not likely to have a central nervous system significant abnormalities in terms of acute issues such as meningitis or encephalitis. He does not have evidence of any stiff neck and CT scan shows no significant abnormalities. His altered mental status probably will resolve to the b aseline within a few days with electrolyte correction, hydration, and an oxygen saturation maintained at a normal level. His Depakote may be adjusted to a therapeutic level and Dilantin may help to red uce the blood level to between 15 and 20. He may be discharged back to his correction where he brent l likely require continued 24 hour care and supervision with memory care unit for safety precautions and lack of safety awareness, and to be able to continue all medications as appropriate. At this poi nt, no additional neurological workup is recommended. VAISHNAVI/NAYAN Voice ID: [id number] Report ID: [id number]
[2020-12-17] MEDS: D5W 1,000 ML IV SCH ×2 (03:03→17:39)
[2020-12-17 04:24] LABS: Absolute Lymphocytes (CBC) 1.7 K/uL (0.7-4.9); Hematocrit 45.8 % (39.6-49.0); Lymphocytes % 19.4 % (15.3-44.8); MPV 9.8 fL (7.6-11.3); RBC Red Blood Cell Count 4.56 M/uL (4.33-5.43)
[2020-12-17 04:43] LABS: Albumin 2.2 g/dL (3.4-5.0); Bilirubin Total 0.4 mg/dL (0.2-1.0); Magnesium 1.9 mg/dL (1.8-2.4); Phosphorus 1.8 mg/dL (2.5-4.9); Potassium 3.9 mmol/L (3.5-5.1); Protein, Total 6.2 g/dL (6.4-8.2)
[2020-12-17 05:07] LABS: Blood Morphology Comment NOTED (NOT SEEN); Platelet Estimate ADEQ; Polychromasia 1+; White Blood Cell Scan OK (OK)
[2020-12-17] MEDS ORDERED: LEVOTHYROXINE SOD 0.075 MG TAB PO SCH (06:00)
[2020-12-17] MEDS: INSULIN -REGULAR HUMAN 50 UNIT/0.5 ML ML SQ SCH ×4 (07:30→21:00)
[2020-12-17] MEDS: LEVOTHYROXINE SOD 0.075 MG TAB PO SCH (08:00)
[2020-12-17] MEDS ORDERED: POTASSIUM CL SA 10 MEQ TAB PO ONE (09:00)
[2020-12-17] MEDS: METOPROLOL TAR 25 MG TAB PO SCH ×2 (09:00→21:21)
[2020-12-17] MEDS ORDERED: POTASS/SODIUM PHOSPHATE 1 PKT POWD.PACK PO SCH (09:00)
[2020-12-17] MEDS: CALCIUM CARB 500MG/VIT D 200 IU TAB PO SCH (09:00)
[2020-12-17] MEDS: DIVALPROEX ER 250 MG TAB PO SCH ×2 (09:40→21:00)
[2020-12-17] MEDS: HYDROCODONE/APAP 5/325 MG TAB PO PRN ×2 (09:41→21:22)
[2020-12-17] MEDS: PHENYTOIN ER 100 MG CAP PO SCH ×2 (09:41→21:22)
[2020-12-17] MEDS: PANTOPRAZOLE 40MG TABLET PO SCH (09:42)
[2020-12-17] MEDS: APIXABAN 2.5 MG TABLET PO SCH ×2 (09:42→21:22)
[2020-12-17] MEDS: FLUOXETINE 20 MG CAP PO SCH (09:42)
[2020-12-17] MEDS: Levofloxacin500mg IV 500 MG/100 ML BAG IV SCH (09:43)
[2020-12-17] MEDS: POLYETHYL GLY 3350 17 GM/DOSE PO SCH (09:43)
[2020-12-17] MEDS: POTASS/SODIUM PHOSPHATE 1 PKT POWD.PACK PO SCH ×6 (09:43→21:23)
--- NOTE | 2020-12-17 12:22 | P.PN ---
Subjective Date of Service: 12/17/20 Chief Complaint: AMS, UTI Subjective: Improving Physical Examination - Vital Signs Temperature: 97.2 F Blood Pressure: 108/69 Pulse: 74 Respirations: 16 Pulse Ox (%): 94 - Physical Exam General: Alert HEENT: Atraumatic, Normocephalic Respiratory: Clear to auscultation bilaterally Cardiovascular: Regular rate/rhythm, Normal S1 S2 Gastrointestinal: Soft and benign Musculoskeletal: No swelling Neurological: Cranial nerves 3-12 intact - Studies Microbiology Data (last 24 hrs): 12/15/20 01:44 Clean Catch Urine [place] Count - Final No growth. 12/15/20 01:44 Clean Catch Urine - Final No growth. Assessment And Plan - Plan 1. Hypernatremia- Sodium is better at 146 today. we will continue D5W infusion. we will monitor trend of his sodium level closely. 2. EMERY-Elevated creatinine of 1.87 noted on labs on admission but this is now much improved at 0.99. we will continue routine monitoring of his renal function. we will avoid nephrotoxins and dose mesd for eGFR. 3. Hypocalcemia-Calcium is low at 8.3. we will continue calcium supplementation. 4. UTI-Empiric levaquin has been started. we will continue monitoring of urine culture and adjust antibiotics as per antibiogram. 5. AMS-deemed due to sepsis/hypernatremia. we will continue D5W infusion and empiric antibiotics and monitor his mentation closely. 6. Hypophosphatemia-phosphorus is now low at 1.6. we will replete and monitor.
--- NOTE | 2020-12-17 17:07 | P.PN ---
Subjective Date of Service: 12/17/20 Chief Complaint: AMS, UTI Subjective: No new changes, Improving Physical Examination - Vital Signs Temperature: 97.2 F Blood Pressure: 112/66 Pulse: 108 Respirations: 16 Pulse Ox (%): 94 - Studies Microbiology Data (last 24 hrs): 12/15/20 01:44 Clean Catch Urine [place] Count - Final No growth. 12/15/20 01:44 Clean Catch Urine - Final No growth. Assessment & Plan Physician Review Additional Text: Physical Exam General: Confused, awake, pleasant HEENT: Mucous membr. moist/pink Respiratory: Clear to auscultation bilaterally, Normal air movement Cardiovascular: No edema, Regular rate/rhythm, Normal S1 S2 Gastrointestinal: Soft and benign, Non-distended, No tenderness Musculoskeletal: No swelling, No tenderness Integumentary: unstageable R buttocks pressure wound Assessment And Plan Acute metabolic encephalopathy / AMS Urinary tract infection Acute renal failure Alzheimer's dementia Chronic atrial fibrillation Dysphagia unstageable R buttocks pressure wound -AMS likely secondary to infection/hypernatremia -both improving, and mentation seems to be improving as well -nephrology consulted, IV D5w -urine culture no growth, continue empiric levaquin for now -mech soft diet and thin liquids per speech -continue home meds -slowly improving Dispo: anticipate dc back to [facility] in ~1-2 days Time Spent Managing Pts Care (In Minutes): 35
[2020-12-17] MEDS: ENSURE HIGH PROTEIN 237 ML CAN PO SCH (21:00)
[2020-12-17] MEDS: DONEPEZIL HCL 5 MG TAB PO SCH (21:00)
[2020-12-18] MEDS: LEVOTHYROXINE SOD 0.075 MG TAB PO SCH (05:06)
[2020-12-18] MEDS: D5W 1,000 ML IV SCH (05:21)
[2020-12-18 06:27] LABS: Absolute Lymphocytes (CBC) 1.4 K/uL (0.7-4.9); Basophils % 1.4 % (0-1.3); Hematocrit 42.2 % (39.6-49.0); Lymphocytes % 16.3 % (15.3-44.8); MPV 9.3 fL (7.6-11.3); RBC Red Blood Cell Count 4.17 M/uL (4.33-5.43)
[2020-12-18 06:48] LABS: C-Reactive Protein 77.4 mg/L (<3.00)
[2020-12-18 06:50] LABS: Potassium 3.8 mmol/L (3.5-5.1)
[2020-12-18] MEDS: INSULIN -REGULAR HUMAN 50 UNIT/0.5 ML ML SQ SCH ×4 (07:30→21:00)
[2020-12-18] MEDS: PANTOPRAZOLE 40MG TABLET PO SCH (08:20)
[2020-12-18] MEDS: POLYETHYL GLY 3350 17 GM/DOSE PO SCH (08:20)
[2020-12-18] MEDS: FLUOXETINE 20 MG CAP PO SCH (08:21)
[2020-12-18] MEDS: CALCIUM CARB 500MG/VIT D 200 IU TAB PO SCH (08:21)
[2020-12-18] MEDS: DIVALPROEX ER 250 MG TAB PO SCH ×3 (08:21→22:07)
[2020-12-18] MEDS: APIXABAN 2.5 MG TABLET PO SCH ×2 (08:22→22:04)
[2020-12-18] MEDS: POTASS/SODIUM PHOSPHATE 1 PKT POWD.PACK PO SCH ×4 (08:22→22:03)
[2020-12-18] MEDS: PHENYTOIN ER 100 MG CAP PO SCH ×2 (08:22→22:02)
[2020-12-18] MEDS: METOPROLOL TAR 25 MG TAB PO SCH ×2 (09:00→21:00)
[2020-12-18] MEDS: MEDIHONEY 44 ML TOPICAL TUBE TOP SCH (09:00)
[2020-12-18] MEDS: ENSURE HIGH PROTEIN 237 ML CAN PO SCH ×2 (09:00→22:08)
[2020-12-18] MEDS: JUVEN PACKET PO SCH ×2 (09:00→22:08)
[2020-12-18] MEDS: Levofloxacin500mg IV 500 MG/100 ML BAG IV SCH (10:35)
--- NOTE | 2020-12-18 14:59 | P.PN ---
Subjective Date of Service: 12/18/20 Chief Complaint: AMS, UTI Subjective: Improving (still with confusion, denies complaints, no abdominal pain, no dysuria, no SOB/chest pain) Review of Systems 10-point ROS is otherwise unremarkable Physical Examination - Vital Signs Temperature: 97.3 F Blood Pressure: 108/72 Pulse: 89 Respirations: 16 Pulse Ox (%): 97 Assessment & Plan Physician Review Additional Text: Physical Exam General: AAOx2, +dementia, awake, pleasant HEENT: Mucous membr. moist/pink Respiratory: Clear to auscultation bilaterally, Normal air movement Cardiovascular: No edema, Regular rate/rhythm, Normal S1 S2 Gastrointestinal: Soft and benign, Non-distended, No tenderness Musculoskeletal: No swelling, No tenderness Integumentary: unstageable R buttocks pressure wound Assessment And Plan Acute metabolic encephalopathy / AMS, improved hypernatremia, resolved Urinary tract infection Acute renal failure Alzheimer's dementia Chronic atrial fibrillation Dysphagia unstageable R buttocks pressure wound -AMS likely secondary to infection/hypernatremia -overall improving, and mentation improving as well, still with confusion, unclear if at baseline, does have h/o dementia -nephrology consulted, for assistance with hypernatremia, dc IVF -on levaquin for UTI, urine culture no growth -mech soft diet and thin liquids per speech therapist -continue home meds -seems to be improving, mentation slow to recover, expected given prior CVA and alzheimers Dispo: anticipate dc back to shelter in ~1 day Time Spent Managing Pts Care (In Minutes): 35
[2020-12-18] MEDS: DONEPEZIL HCL 5 MG TAB PO SCH (22:04)
[2020-12-19 06:21] LABS: Absolute Lymphocytes (CBC) 1.3 K/uL (0.7-4.9); Basophils % 0.9 % (0-1.3); Hematocrit 40.6 % (39.6-49.0); Lymphocytes % 18.4 % (15.3-44.8); MPV 9.2 fL (7.6-11.3); RBC Red Blood Cell Count 3.99 M/uL (4.33-5.43)
[2020-12-19] MEDS: LEVOTHYROXINE SOD 0.075 MG TAB PO SCH (06:26)
[2020-12-19 06:41] LABS: C-Reactive Protein 79.6 mg/L (<3.00); Magnesium 1.8 mg/dL (1.8-2.4); Phosphorus 2.5 mg/dL (2.5-4.9); Potassium 4.1 mmol/L (3.5-5.1)
[2020-12-19] MEDS: INSULIN -REGULAR HUMAN 50 UNIT/0.5 ML ML SQ SCH ×4 (07:30→21:00)
[2020-12-19] MEDS: JUVEN PACKET PO SCH ×2 (09:00→21:35)
[2020-12-19] MEDS: METOPROLOL TAR 25 MG TAB PO SCH ×2 (09:00→21:37)
[2020-12-19] MEDS: CALCIUM CARB 500MG/VIT D 200 IU TAB PO SCH (09:00)
[2020-12-19] MEDS: ENSURE HIGH PROTEIN 237 ML CAN PO SCH ×2 (09:00→21:35)
[2020-12-19] MEDS: DIVALPROEX ER 250 MG TAB PO SCH ×2 (09:45→21:36)
[2020-12-19] MEDS: APIXABAN 2.5 MG TABLET PO SCH ×2 (09:45→21:37)
[2020-12-19] MEDS: PHENYTOIN ER 100 MG CAP PO SCH ×2 (09:45→21:36)
[2020-12-19] MEDS: POLYETHYL GLY 3350 17 GM/DOSE PO SCH (09:45)
[2020-12-19] MEDS: POTASS/SODIUM PHOSPHATE 1 PKT POWD.PACK PO SCH ×4 (09:45→21:37)
[2020-12-19] MEDS: PANTOPRAZOLE 40MG TABLET PO SCH (09:46)
[2020-12-19] MEDS: FLUOXETINE 20 MG CAP PO SCH (09:46)
[2020-12-19] MEDS: Levofloxacin500mg IV 500 MG/100 ML BAG IV SCH (09:46)
[2020-12-19] MEDS: MEDIHONEY 44 ML TOPICAL TUBE TOP SCH (13:36)
--- NOTE | 2020-12-19 15:46 | P.PN ---
Subjective Date of Service: 12/19/20 Chief Complaint: AMS, UTI Subjective: No new changes (more awake , denies nay symptoms) Physical Examination - Vital Signs Temperature: 97.2 F Blood Pressure: 105/67 Pulse: 102 Respirations: 18 Pulse Ox (%): 96 - Physical Exam General: Alert, Obese HEENT: Atraumatic, Normocephalic, PERRLA Neck: Supple, 2+ carotid pulse no bruit, JVD not distended Respiratory: Normal air movement, Diminished Cardiovascular: Regular rate/rhythm, Normal S1 S2 Gastrointestinal: Normal bowel sounds, Soft and benign, Non-distended Musculoskeletal: No clubbing, No swelling Assessment And Plan Physician Review Additional Text: Physical Exam General: AAOx2, +dementia, awake, pleasant HEENT: Mucous membr. moist/pink Respiratory: Clear to auscultation bilaterally, Normal air movement Cardiovascular: No edema, Regular rate/rhythm, Normal S1 S2 Gastrointestinal: Soft and benign, Non-distended, No tenderness Musculoskeletal: No swelling, No tenderness Integumentary: unstageable R buttocks pressure wound Assessment And Plan Acute metabolic encephalopathy / AMS, improved hypernatremia, resolved Urinary tract infection Acute renal failure Alzheimer's dementia Chronic atrial fibrillation Dysphagia unstageable R buttocks pressure wound -serum sodium improving -off IVF, continue free water - creatinine stable at 1.01
--- NOTE | 2020-12-19 16:39 | P.PN ---
Subjective Date of Service: 12/19/20 Chief Complaint: AMS, UTI Subjective: No new changes (seems to be stable, without complaints, intermittent confusion, aware of things / follows commands, but unsure of what year, mixes up place) Review of Systems 10-point ROS is otherwise unremarkable Physical Examination - Vital Signs Temperature: 97.2 F Blood Pressure: 105/67 Pulse: 102 Respirations: 18 Pulse Ox (%): 96 Assessment & Plan Physician Review Additional Text: Physical Exam General: AAOx2, +dementia, awake, pleasant HEENT: Mucous membr. moist/pink Respiratory: Clear to auscultation bilaterally, Normal air movement Cardiovascular: No edema, Regular rate/rhythm, Normal S1 S2 Gastrointestinal: Soft and benign, Non-distended, No tenderness Musculoskeletal: No swelling, No tenderness Integumentary: unstageable R buttocks pressure wound Assessment And Plan Acute metabolic encephalopathy / AMS, improved hypernatremia, resolved Urinary tract infection Acute renal failure Alzheimer's dementia Chronic atrial fibrillation Dysphagia unstageable R buttocks pressure wound -AMS likely secondary to infection/hypernatremia -overall improving, and mentation improving as well, still with confusion, seems to be near baseline -nephrology consulted, for assistance with hypernatremia - resolved -on levaquin for UTI, urine culture no growth - dc today -mech soft diet and thin liquids per speech therapist -continue home meds -seems to be improving, mentation slow to recover, expected given prior CVA and alzheimers, neuro consulted -dc hankins for voiding trial, was reportedly placed at [place] for retention Dispo: anticipate dc back to assisted, likely tomorrow Time Spent Managing Pts Care (In Minutes): 35
[2020-12-19] MEDS: DONEPEZIL HCL 5 MG TAB PO SCH (21:00)
[2020-12-20] MEDS: HYDROCODONE/APAP 5/325 MG TAB PO PRN (02:27)
[2020-12-20 04:55] LABS: Absolute Lymphocytes (CBC) 1.2 K/uL (0.7-4.9); Hematocrit 40.5 % (39.6-49.0); Lymphocytes % 17.1 % (15.3-44.8); MPV 9.6 fL (7.6-11.3)
[2020-12-20 05:21] LABS: ALT/SGPT 9 U/L (12-78); Alkaline Phosphatase 57 U/L (45-117); BUN Blood Urea Nitrogen 21 mg/dL (7-18); Bicarbonate 29 mmol/L (21-32); Bilirubin Total 0.4 mg/dL (0.2-1.0); Glucose Level 90 mg/dL (74-106); Protein, Total 6.1 g/dL (6.4-8.2); Sodium Level 142 mmol/L (136-145)
[2020-12-20 05:22] LABS: AST/SGOT 14 U/L (15-37); Magnesium 1.7 mg/dL (1.8-2.4)
[2020-12-20] MEDS: LEVOTHYROXINE SOD 0.075 MG TAB PO SCH (06:00)
[2020-12-20] MEDS: INSULIN -REGULAR HUMAN 50 UNIT/0.5 ML ML SQ SCH ×4 (07:30→20:59)
[2020-12-20] MEDS ORDERED: MAGNESIUM SULFATE 1 gm IVPB 1 GM/100 ML BAG IV ONE (08:00)
[2020-12-20] MEDS: PHENYTOIN ER 100 MG CAP PO SCH ×2 (08:07→20:47)
[2020-12-20] MEDS: DIVALPROEX ER 250 MG TAB PO SCH ×2 (08:07→20:46)
[2020-12-20] MEDS: FLUOXETINE 20 MG CAP PO SCH (08:08)
[2020-12-20] MEDS: CALCIUM CARB 500MG/VIT D 200 IU TAB PO SCH (08:08)
[2020-12-20] MEDS: PANTOPRAZOLE 40MG TABLET PO SCH (08:08)
[2020-12-20] MEDS: APIXABAN 2.5 MG TABLET PO SCH ×2 (08:08→20:46)
[2020-12-20] MEDS: POTASS/SODIUM PHOSPHATE 1 PKT POWD.PACK PO SCH ×4 (08:08→20:51)
[2020-12-20] MEDS: POLYETHYL GLY 3350 17 GM/DOSE PO SCH (08:09)
[2020-12-20] MEDS: METOPROLOL TAR 25 MG TAB PO SCH ×2 (08:09→20:57)
[2020-12-20] MEDS: MEDIHONEY 44 ML TOPICAL TUBE TOP SCH (08:10)
[2020-12-20] MEDS: JUVEN PACKET PO SCH ×2 (08:11→20:59)
[2020-12-20] MEDS: ENSURE HIGH PROTEIN 237 ML CAN PO SCH ×2 (08:11→20:59)
[2020-12-20 08:19] LABS: Urine Appearance CLEAR (Clear); Urine Bilirubin NEGATIVE (Negative); Urine Blood NEGATIVE (Negative); Urine Color YELLOW (Yellow); Urine Glucose NEGATIVE (Negative); Urine Protein NEGATIVE (Negative)
[2020-12-20 08:22] LABS: Urine Microscopic Reflex ORDER UMIC
[2020-12-20 08:34] LABS: Urine Bacteria <20 /HPF (NONE SEEN); Urine RBC <5 /HPF (NONE SEEN)
--- NOTE | 2020-12-20 11:22 | P.CNS ---
Date of Consult: 12/20/20 Chief Complaint: AMS, UTI History of Present Illness: Patient is a 75-year-old male with a past medical history of Alzheimer's disease, atrial fibrillation, hypertension, hypothyroidism, history seizures, depression, bipolar disorder, and chronic constipation who presented from his [facility] home due to altered mental status of unknown duration. Unknown the patient's baseline mental status is. Per chart review the patient is normally AOx3. Urine cultures negative. Patient has sacral unstageable wound. No leukocytosis, however patient's inflammatory markers are elevated--acutely a result of the unstageable sacral wound. Patient denies nausea, vomiting, diarrhea, shortness breath, chest pain. Allergies Penicillins Allergy (Verified 11/26/20 00:08) Anaphylaxis rabies bat serum Allergy (Uncoded 11/26/20 00:08) Rash Home Medications: Divalproex Sodium [Depakote ER] 2 tab PO BEDTIME 01/22/15 Donepezil [Aricept*] 10 mg PO BEDTIME 03/08/18 PHENYTOIN ER Cap [Dilantin ER Cap*] 2 cap PO BID 03/08/18 Amlodipine [Norvasc*] 2.5 mg PO DAILY 11/26/20 Calcium Carbonate/Vitamin D3 [Calcium 600-Vit D3 400 Tablet] 1 each PO DAILY 11/26/20 Divalproex ER [Depakote *ER] 250 mg PO DAILY 11/26/20 Fluoxetine HCl [Prozac] 40 mg PO DAILY 11/26/20 Furosemide [Lasix*] 40 mg PO BIDL 11/26/20 Gabapentin [Neurontin*] 100 mg PO TID 11/26/20 Hydrocodone 5/APAP 325 [[place] 5/325*] 1 tab PO Q8HP PRN 11/26/20 Hydrocortisone Cream [Hydrocortisone 1% Cream*] 1 appl TOP BID 11/26/20 Levothyroxine Sodium [Synthroid] 150 mcg PO [id number] 11/26/20 Lidocaine [Aspercreme Lidocaine] 1 each TP DAILY 11/26/20 Metoprolol Tartrate 25 mg PO BID 11/26/20 Nitroglycerin [Nitrostat*] 0.4 mg SL PRN PRN 11/26/20 Omeprazole Magnesium [Acid Fund Manager] 20 mg PO DAILY 11/26/20 Polyethylene Glycol 3350 [Miralax] 17 gm PO DAILY 11/26/20 Trazodone HCl 100 mg PO BEDTIME 11/26/20 hydrOXYzine HCL [Atarax*] 25 mg PO BIDP PRN 11/26/20 Apixaban [Eliquis] 2.5 mg PO BID 12/15/20 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; cervicalgia; Chronic pain; constipation -: Atrial Fib; frequent falls; osteoarthritis -: Bronchitis; Hyperlipidemia; Bipolar disorder; encephalopathy; Diverticuliti -: Hypertension; Hypothyroidism; Seizures; Depression -: DEPRESSION -: DIVERTICULITIS -: CONSTIPATION -: MUSCLE WASTING/ATROPHY -: ALLERGIC RHINITIS -: NON-DISPLACED FRACTURE OF THE LEFT HUMERUS -: COGNITIVE COMMUNICATION DEFICIT -: OSTEOPOROSIS - Family History pARENTS Notes: PT IS CONFUSED; UNABLE TO RECALL/STATE - Social History Smoking Status: Unknown if ever smoked Alcohol use: No CD- Drugs: No Caffeine use: No Place of Residence: Home Review of Systems 10-point ROS is otherwise unremarkable Physical Examination Temp Pulse Resp BP Pulse Ox 96.7 F L 85 16 96/55 L 95 12/20/20 08:00 12/20/20 08:09 12/20/20 08:00 12/20/20 08:09 12/20/20 08:00 General: In no apparent distress HEENT: Atraumatic, Normocephalic Neck: Supple Respiratory: Clear to auscultation bilaterally, Normal air movement Cardiovascular: No edema, Normal pulses Capillary refill: <2 Seconds Gastrointestinal: Normal bowel sounds Musculoskeletal: No clubbing, No swelling Integumentary: Pressure ulcer (Sacral unstageable ulcer.) Temp Pulse Resp BP Pulse Ox 96.7 F L 85 16 96/55 L 95 12/20/20 08:00 12/20/20 08:09 12/20/20 08:00 12/20/20 08:09 12/20/20 08:00 Laboratory Last Values WBC 13.00 K/uL (4.3-10.9) H 12/15/20 01:40 RBC 5.00 M/uL (4.33-5.43) 12/15/20 01:40 Hgb 16.9 g/dL (13.6-17.9) 12/15/20 01:40 Hct 51.3 % (39.6-49.0) H 12/15/20 01:40 MCV 102.6 fL (80-100) H 12/15/20 01:40 MCH 33.8 pg (27.0-35.0) 12/15/20 01:40 MCHC 32.9 g/dL (32.0-36.0) 12/15/20 01:40 RDW 14.9 % (12.1-15.2) 12/15/20 01:40 Plt Count 242 K/uL (152-406) 12/15/20 01:40 MPV 9.4 fL (7.6-11.3) 12/15/20 01:40 Neutrophils % 80.6 % (41.7-73.7) H 12/15/20 01:40 Lymphocytes % 9.2 % (15.3-44.8) L 12/15/20 01:40 Monocytes % 9.5 % (3.3-12.3) 12/15/20 01:40 Eosinophils % 0.0 % (0-4.4) 12/15/20 01:40 Basophils % 0.7 % (0-1.3) 12/15/20 01:40 Absolute Neutrophils 10.5 K/uL (1.8-8.0) H 12/15/20 01:40 Absolute Lymphocytes 1.2 K/uL (0.7-4.9) 12/15/20 01:40 Absolute Monocytes 1.2 K/uL (0.1-1.3) 12/15/20 01:40 Absolute Eosinophils 0.0 K/uL (0-0.5) 12/15/20 01:40 Absolute Basophils 0.1 K/uL (0-0.5) 12/15/20 01:40 PT 15.1 SECONDS (9.5-12.5) H 12/15/20 01:40 INR 1.31 12/15/20 01:40 APTT 27.3 SECONDS (24.3-36.9) 12/15/20 01:40 Sodium 150 mmol/L (136-145) H 12/15/20 01:10 Potassium 3.5 mmol/L (3.5-5.1) 12/15/20 01:10 Chloride 111 mmol/L (98-107) H 12/15/20 01:10 Carbon Dioxide 29 mmol/L (21-32) 12/15/20 01:10 BUN 52 mg/dL (7-18) H 12/15/20 01:10 Creatinine 1.97 mg/dL (0.55-1.3) H 12/15/20 01:10 Estimated GFR 33 mL/min (=/>90) L 12/15/20 01:10 Glucose 119 mg/dL (74-106) H 12/15/20 01:10 POC Glucose 128 mg/dL (65-120) H 12/15/20 01:11 Lactic Acid 1.4 mmol/L (0.4-2.0) 12/15/20 01:05 Calcium 8.6 mg/dL (8.5-10.1) 12/15/20 01:10 Total Bilirubin 0.5 mg/dL (0.2-1.0) 12/15/20 01:10 Direct Bilirubin 0.2 mg/dL (0-0.2) 12/15/20 01:10 AST 21 U/L (15-37) 12/15/20 01:10 ALT 11 U/L (12-78) L 12/15/20 01:10 Alkaline Phosphatase 68 U/L (45-117) 12/15/20 01:10 Ammonia 14 umol/L (19-54) L 12/15/20 01:05 Creatine Kinase 326 U/L (39-308) H 12/15/20 01:10 CK-MB (CK-2) < 1.0 ng/mL (0.3-3.6) 12/15/20 01:10 Rapid Troponin I 0.10 ng/mL (0.0-0.045) H 12/15/20 01:10 NT-Pro-B Natriuret Pep 2605 pg/mL (<450) H 12/15/20 01:10 Serum Total Protein 7.7 g/dL (6.4-8.2) 12/15/20 01:10 Albumin 2.7 g/dL (3.4-5.0) L 12/15/20 01:10 Globulin 5.0 g/dL (2.3-3.5) H 12/15/20 01:10 Albumin/Globulin Ratio 0.5 (1.1-1.8) L 12/15/20 01:10 Amylase 59 U/L (25-115) 12/15/20 01:10 Lipase 138 U/L (73-393) 12/15/20 01:10 Urine pH 5.0 (5.0-7.0) 12/15/20 01:46 Ur Specific Nerinx 1.020 (1.005-1.030) 12/15/20 01:46 Glucose (UA)(Auto) Negative (Negative) 12/15/20 01:46 Urine Ketones 1+ (Negative) H 12/15/20 01:46 Urine Blood 1+ (Negative) H 12/15/20 01:46 Urine Nitrite Negative (Negative) 12/15/20 01:46 Ur Leukocyte Esterase Negative (Negative) 12/15/20 01:46 Urine RBC 5-10 /HPF (NONE SEEN) H 12/15/20 01:44 Urine WBC 5-10 /HPF (<5) H 12/15/20 01:44 Ur Squamous Epith Cells <5 /HPF (NONE SEEN) 12/15/20 01:44 Urine Bacteria 20-50 /HPF (NONE SEEN) H 12/15/20 01:44 Hyaline Casts 5-10 /LPF (NONE SEEN) 12/15/20 01:44 Urine Mucus 2+ /HPF (NONE SEEN) 12/15/20 01:44 Urine Culture Reflexed Reflexed 12/15/20 01:44 Urine Total Protein 1+ (Negative) H 12/15/20 01:46 Salicylates 4.1 mg/dL (2.8-20) 12/15/20 01:40 Opiates Screen Negative (NEGATIVE) 12/15/20 01:44 Methadone Screen Negative (NEGATIVE) 12/15/20 01:44 Acetaminophen < 2.0 ug/mL (10.0-30.0) L 12/15/20 01:10 Ur Barbiturates Screen Negative (NEGATIVE) 12/15/20 01:44 Phenytoin 21.5 ug/mL (10.0-20.0) H 12/15/20 01:10 Valproic Acid 16.0 ug/mL (50-100) L 12/15/20 01:10 Ur Phencyclidine Scrn Negative (NEGATIVE) 12/15/20 01:44 Amphetamines Screen Negative (NEGATIVE) 12/15/20 01:44 Benzodiazepines Screen Negative (NEGATIVE) 12/15/20 01:44 Cocaine Screen Negative (NEGATIVE) 12/15/20 01:44 Ur THC Screen Negative (NEGATIVE) 12/15/20 01:44 Plasma/Serum Alcohol < 10 mg/dL (<10) 12/15/20 01:10 SARS-CoV-2 RNA (RT-PCR) Negative (NEGATIVE) 12/15/20 03:15 Conclusions/Impression: Assessment: -altered mental status -urinary tract infection. -sacral decubitus ulcer unstageable Plan: -mentation improving, altered mental status likely due to infection/electrolyte imbalance. -urine culture negative. -patient restarted on Levaquin due to sacral decubitus ulcer unstageable and increasing CRP. Continue Levaquin for duration of 2 weeks. -medical management per primary team -continue monitor CBC and BMP -continue monitor signs infection Plan of care discussed with Dr. Patel. Thank you for consultation.
--- NOTE | 2020-12-20 13:26 | P.PN ---
Subjective Date of Service: 12/20/20 Chief Complaint: AMS, UTI Subjective: No new changes (seen , feeding self) Physical Examination - Vital Signs Temperature: 96.9 F Blood Pressure: 110/66 Pulse: 81 Respirations: 16 Pulse Ox (%): 97 - Studies Microbiology Data (last 24 hrs): 12/15/20 01:22 Blood - Blood Aerobic Blood Culture - Final No growth in 5 days. 12/15/20 01:22 Blood - Blood Anaerobic Blood Culture - Final 12/15/20 01:05 Blood - Blood Aerobic Blood Culture - Final No growth in 5 days. 12/15/20 01:05 Blood - Blood Anaerobic Blood Culture - Final No growth in 5 days. Assessment And Plan Physician Review Additional Text: Physical Exam General: AAOx2, +dementia, awake, pleasant HEENT: Mucous membr. moist/pink Respiratory: Clear to auscultation bilaterally, Normal air movement Cardiovascular: No edema, Regular rate/rhythm, Normal S1 S2 Gastrointestinal: Soft and benign, Non-distended, No tenderness Musculoskeletal: No swelling, No tenderness Integumentary: unstageable R buttocks pressure wound Assessment And Plan Acute metabolic encephalopathy / AMS, improved hypernatremia, resolved Urinary tract infection Acute renal failure Alzheimer's dementia Chronic atrial fibrillation Dysphagia unstageable R buttocks pressure wound Nephrology plan -doing well -will replete mg today -total of 2 g mag sulfate -follow repeat in am -creatinine improved and stable -consider IV antibiotics for sacral osteomyelitis since persistently elevated and rising CRP. May need PET or bone scan continue other mgt - -AMS likely secondary to infection/hypernatremia -overall improving, and mentation improving as well, still with confusion, seems to be near baseline -nephrology consulted, for assistance with hypernatremia - resolved -on levaquin for UTI, urine culture no growth - dc today -mech soft diet and thin liquids per speech therapist -continue home meds -seems to be improving, mentation slow to recover, expected given prior CVA and alzheimers, neuro consulted -dc hankins for voiding trial, was reportedly [facility] for [facility] Dispo: anticipate dc back to long-term, likely tomorrow
--- NOTE | 2020-12-20 16:22 | P.PN ---
Subjective Date of Service: 12/20/20 Chief Complaint: AMS, UTI Subjective: No new changes (no acute events overnight. pt AAOx2, without complaints) Review of Systems 10-point ROS is otherwise unremarkable Physical Examination - Vital Signs Temperature: 97.0 F Blood Pressure: 123/59 Pulse: 67 Respirations: 16 Pulse Ox (%): 99 - Studies Microbiology Data (last 24 hrs): 12/15/20 01:22 Blood - Blood Aerobic Blood Culture - Final No growth in 5 days. 12/15/20 01:22 Blood - Blood Anaerobic Blood Culture - Final 12/15/20 01:05 Blood - Blood Aerobic Blood Culture - Final No growth in 5 days. 12/15/20 01:05 Blood - Blood Anaerobic Blood Culture - Final No growth in 5 days. Assessment & Plan Physician Review Additional Text: Physical Exam General: AAOx2, awake, pleasant HEENT: Mucous membr. moist/pink Respiratory: Clear to auscultation bilaterally, Normal air movement Cardiovascular: No edema, Regular rate/rhythm, Normal S1 S2 Gastrointestinal: Soft and benign, Non-distended, No tenderness Musculoskeletal: No swelling, No tenderness Integumentary: unstageable R buttocks pressure wound urethral meatus - tear to right lateral side, now ~2-3 times as large, mild bleed that seems to have stopped Assessment And Plan Acute metabolic encephalopathy / AMS, improved hypernatremia, resolved Urinary tract infection Acute renal failure Alzheimer's dementia Chronic atrial fibrillation Dysphagia unstageable R buttocks pressure wound laceration of urethral meatus -AMS likely secondary to infection/hypernatremia -overall improving, and mentation improving as well, still with confusion, seems to be near baseline -nephrology consulted, for assistance with hypernatremia - resolved -on levaquin for UTI, urine culture no growth -CRP continues to increase, likely from R buttocks pressure ulcer -MRi table broken, pt unable to get into it, will obtain CT pelvis to eval ulcer, possible osteomyelitis -ID consulted - resume levaquin -mech soft diet and thin liquids per speech therapist -continue home meds -seems to be improving, mentation slow to recover, expected given prior CVA and alzheimers, neuro consulted -hankins dc'd for voiding trial, was reportedly placed at [facility] for retention, hankins replaced due to retention -briefly reviewed urethral meatus laceration with urology, clean soap/water BID, bacitracin BID, f/u urology as outpatient Dispo: anticipate dc back to al[facility] in 1-2 days Time Spent Managing Pts Care (In Minutes): 35
--- NOTE | 2020-12-20 18:33 | RAD REPORT ---
EXAM DESCRIPTION: CT - Pelvis W/Cont - 12/20/2020 6:02 pm CLINICAL HISTORY: Pelvic pain. Decubitus ulcer COMPARISON: None. TECHNIQUE: Computed axial tomography of the pelvis was obtained. 50 cc [id number]-300 administered intra venously. Coronal and sagittal reconstruction performed All CT scans are performed using dose optimization technique as appropriate and may include automated exposure control or mA/KV adjustment according to patient size. FINDINGS: Posterior ulceration involves the subcutaneous tissue. No abscess visualized. No bony destructive lesion is seen. IMPRESSION: Soft tissue ulceration No evidence of osteomyelitis if patient continues to have symptoms to suggest osteomyelitis MRI would be recommended as it is more sensitive detecting early osteomyelitis then CT
[2020-12-20] MEDS: DONEPEZIL HCL 5 MG TAB PO SCH (20:47)
[2020-12-21] MEDS: BACITRACIN OINTMENT 15 GM TUBE TOP SCH ×3 (00:58→22:04)
[2020-12-21] MEDS: LEVOTHYROXINE SOD 0.075 MG TAB PO SCH (06:00)
[2020-12-21 06:11] LABS: Absolute Lymphocytes (CBC) 0.7 K/uL (0.7-4.9); Basophils % 0.6 % (0-1.3); Hematocrit 40.4 % (39.6-49.0); Lymphocytes % 8.1 % (15.3-44.8); MPV 9.1 fL (7.6-11.3); RBC Red Blood Cell Count 3.98 M/uL (4.33-5.43)
[2020-12-21] MEDS: INSULIN -REGULAR HUMAN 50 UNIT/0.5 ML ML SQ SCH ×4 (07:30→21:00)
[2020-12-21] MEDS: CALCIUM CARB 500MG/VIT D 200 IU TAB PO SCH (09:00)
[2020-12-21] MEDS: METOPROLOL TAR 25 MG TAB PO SCH ×2 (09:00→22:02)
[2020-12-21] MEDS: FLUOXETINE 20 MG CAP PO SCH (09:21)
[2020-12-21] MEDS: PHENYTOIN ER 100 MG CAP PO SCH ×2 (09:21→22:01)
[2020-12-21] MEDS: APIXABAN 2.5 MG TABLET PO SCH ×2 (09:21→22:03)
[2020-12-21] MEDS: POTASS/SODIUM PHOSPHATE 1 PKT POWD.PACK PO SCH ×4 (09:22→21:58)
[2020-12-21] MEDS: DIVALPROEX ER 250 MG TAB PO SCH ×2 (09:22→22:01)
[2020-12-21] MEDS: PANTOPRAZOLE 40MG TABLET PO SCH (09:22)
[2020-12-21] MEDS: ENSURE HIGH PROTEIN 237 ML CAN PO SCH ×2 (09:23→21:00)
[2020-12-21] MEDS: POLYETHYL GLY 3350 17 GM/DOSE PO SCH (09:23)
[2020-12-21] MEDS: JUVEN PACKET PO SCH ×2 (09:24→21:00)
[2020-12-21] MEDS: MEDIHONEY 44 ML TOPICAL TUBE TOP SCH (09:24)
[2020-12-21] MEDS: levoFLOXacin 750 MG TAB PO SCH (09:27)
--- NOTE | 2020-12-21 13:04 | P.PN ---
Subjective Date of Service: 12/21/20 Chief Complaint: AMS, UTI Subjective: No new changes (patient ok this morning, without complaints, AAOx2. no significant change.) Review of Systems 10-point ROS is otherwise unremarkable Physical Examination - Vital Signs Temperature: 98.3 F Blood Pressure: 113/81 Pulse: 104 Respirations: 20 Pulse Ox (%): 97 Assessment & Plan Physician Review Additional Text: Physical Exam General: AAOx2, awake, pleasant HEENT: Mucous membr. moist/pink Respiratory: Clear to auscultation bilaterally, Normal air movement Cardiovascular: No edema, Regular rate/rhythm, Normal S1 S2 Gastrointestinal: Soft and benign, Non-distended, No tenderness Musculoskeletal: No swelling, No tenderness Integumentary: unstageable R buttocks pressure wound, no drainage urethral meatus - tear to right lateral side, ~2-3 times as large, no bleed, no erythema Assessment And Plan Acute metabolic encephalopathy / AMS, improved hypernatremia, resolved Urinary tract infection Acute renal failure Alzheimer's dementia Chronic atrial fibrillation Dysphagia unstageable R buttocks pressure wound laceration of urethral meatus -AMS likely secondary to infection/hypernatremia, mentation improved, still with confusion, seems to be near or at baseline -nephrology consulted, for assistance with hypernatremia - resolved -on levaquin for UTI, urine culture no growth; but CRP continues to increase, likely from R buttocks pressure ulcer, concern for possible osteomyelitis -MRI table broken, pt unable to get into it, so CT pelvis was obtained - no definitive evidence of osteomyelitis -CRP further increasing today to 150, procal minimally elevated as well, Urine on 12/20 without growth -will obtain blood cultures -pt does not appear septic, has remained afebrile, no leukocytosis, CRP may be due to pressure ulcer -ID consulted on 12/20 - resume levaquin -mech soft diet and thin liquids per speech therapist -continue home meds -hankins dc'd for voiding trial, was reportedly placed at [facility] for retention, hankins replaced due to retention -briefly reviewed urethral meatus laceration with urology, clean soap/water BID, bacitracin BID, f/u urology as outpatient Dispo: [facility] Time Spent Managing Pts Care (In Minutes): 35
--- NOTE | 2020-12-21 20:39 | RAD REPORT ---
EXAM DESCRIPTION: [place] Single View12/21/2020 8:33 pm CLINICAL HISTORY: Cough COMPARISON: December 15, 2020 FINDINGS: The lungs appear clear of acute infiltrate. The heart is borderline enlarged IMPRESSION: No acute abnormalities displayed
[2020-12-21] MEDS: DONEPEZIL HCL 5 MG TAB PO SCH (21:00)
[2020-12-22 04:57] LABS: Absolute Lymphocytes (CBC) 0.6 K/uL (0.7-4.9); Basophils % 0.4 % (0-1.3); Hematocrit 39.5 % (39.6-49.0); Lymphocytes % 8.8 % (15.3-44.8); MPV 8.5 fL (7.6-11.3); RBC Red Blood Cell Count 3.89 M/uL (4.33-5.43)
[2020-12-22 05:17] LABS: ALT/SGPT 10 U/L (12-78); AST/SGOT 13 U/L (15-37); Albumin 1.9 g/dL (3.4-5.0); Alkaline Phosphatase 53 U/L (45-117); BUN Blood Urea Nitrogen 22 mg/dL (7-18); Bicarbonate 28 mmol/L (21-32); Bilirubin Total 0.5 mg/dL (0.2-1.0); Glucose Level 100 mg/dL (74-106); Potassium 4.2 mmol/L (3.5-5.1); Protein, Total 6.2 g/dL (6.4-8.2); Sodium Level 143 mmol/L (136-145)
[2020-12-22] MEDS: LEVOTHYROXINE SOD 0.075 MG TAB PO SCH (05:40)
[2020-12-22] MEDS: INSULIN -REGULAR HUMAN 50 UNIT/0.5 ML ML SQ SCH ×4 (07:30→21:00)
[2020-12-22] MEDS: METOPROLOL TAR 25 MG TAB PO SCH ×2 (07:41→21:00)
[2020-12-22 08:08] LABS: Blood Morphology Comment NOT SEEN (NOT SEEN); Platelet Estimate ADEQ
[2020-12-22] MEDS: PHENYTOIN ER 100 MG CAP PO SCH ×2 (08:39→19:55)
[2020-12-22] MEDS: ACETAMINOPHEN 500 MG TAB PO PRN ×2 (08:39→23:40)
[2020-12-22] MEDS: FLUOXETINE 20 MG CAP PO SCH (08:40)
[2020-12-22] MEDS: DIVALPROEX ER 250 MG TAB PO SCH ×2 (08:40→19:56)
[2020-12-22] MEDS: PANTOPRAZOLE 40MG TABLET PO SCH (08:40)
[2020-12-22] MEDS: levoFLOXacin 750 MG TAB PO SCH (08:40)
[2020-12-22] MEDS: CALCIUM CARB 500MG/VIT D 200 IU TAB PO SCH (08:41)
[2020-12-22] MEDS: POTASS/SODIUM PHOSPHATE 1 PKT POWD.PACK PO SCH ×4 (08:41→19:55)
[2020-12-22] MEDS: JUVEN PACKET PO SCH ×2 (08:41→19:56)
[2020-12-22] MEDS: POLYETHYL GLY 3350 17 GM/DOSE PO SCH (08:41)
[2020-12-22] MEDS: ENSURE HIGH PROTEIN 237 ML CAN PO SCH ×2 (08:41→19:56)
[2020-12-22] MEDS: APIXABAN 2.5 MG TABLET PO SCH ×2 (08:41→19:56)
[2020-12-22] MEDS: BACITRACIN OINTMENT 15 GM TUBE TOP SCH ×2 (08:42→19:56)
[2020-12-22] MEDS: MEDIHONEY 44 ML TOPICAL TUBE TOP SCH (08:42)
[2020-12-22 09:59] VITALS: BMI 31.4
--- NOTE | 2020-12-22 13:26 | RAD REPORT ---
EXAM DESCRIPTION: CT - Chest Abdomen W Con - 12/22/2020 12:49 pm CLINICAL HISTORY: Cough, eval aspiration, mass, inflammation, liver COMPARISON: Pelvis W/Cont dated 12/20/2020; [facility] Protocol dated 11/01/2019; Chest Single View dated TECHNIQUE: During dynamic enhancement using 100 milliliters nonionic IV contrast, axial 5 millimeter thick images of the chest, abdomen and pelvis were obtained. Biphasic technique was utilized through the abdomen. No oral contrast was administered. All CT scans are performed using dose optimization technique as appropriate and may include automated exposure control or mA/KV adjustment according to patient size. FINDINGS: The lungs are clear of mass and infiltrate. Posterior gutter atelectasis changes are prese nt. No pneumothorax or pleural effusion. No chest wall mass or abnormal axillary lymphadenopathy see n. Mediastinal and hilar regions show no mass or lymphadenopathy. Aorta and pulmonary arterial tree enhance normally. No significant cardiac finding. The liver, spleen and pancreas show no significant findings. Cholecystectomy clips are present. No b iliary tree dilatation. Symmetric renal function is seen with no hydronephrosis, mass or other significant finding. No adren al abnormalities. Multiple small cortical cysts are present. Lap band is in place. No gastric dilatation or wall thickening. No acute small bowel abnormality iden tifiable. The imaged portions of colon show moderate stool volume without an acute colon process. No free air, free fluid or inflammatory stranding. No hernia, mass or bulky lymphadenopathy. Disc and bone degenerative changes are present. No pathologic bone process. No acute vascular finding . IMPRESSION: CT chest imaging shows mild posterior gutter atelectasis with no acute chest finding. As piration pneumonia is not suspected. CT abdomen imaging shows no acute or emergent finding.
[2020-12-22] MEDS ORDERED: LACTULOSE 20 GM/30 ML UCUP PO ONE (16:40)
--- NOTE | 2020-12-22 16:47 | P.PN ---
Subjective Date of Service: 12/22/20 Chief Complaint: AMS, UTI Subjective: No new changes (no significant change, slightly more somnolent this morning, CRP increasing) Review of Systems 10-point ROS is otherwise unremarkable Physical Examination - Vital Signs Temperature: 98.7 F Blood Pressure: 92/53 Pulse: 101 Respirations: 16 Pulse Ox (%): 99 Assessment & Plan Physician Review Additional Text: Physical Exam General: AAOx1, awake, slow to answer questions HEENT: Mucous membr. moist/pink Respiratory: Clear to auscultation bilaterally, Normal air movement Cardiovascular: No edema, Regular rate/rhythm, Normal S1 S2 Gastrointestinal: Soft and benign, Non-distended, No tenderness Integumentary: unstageable R buttocks pressure wound, eschar expanding, yellow- greenish tinged drainage on dressing, foul smelling urethral meatus - tear to right lateral side, ~2-3 times as large, no bleed, no erythema, no purulent drainage Assessment And Plan Acute metabolic encephalopathy / AMS, improved hypernatremia, resolved Urinary tract infection Acute renal failure Alzheimer's dementia Chronic atrial fibrillation Dysphagia unstageable R buttocks pressure wound laceration of urethral meatus -AMS likely secondary to infection/hypernatremia, mentation improved, still with confusion, seems to be near baseline -spoke with nurse at [place] who has taken care of patient intermittently for last 2 months: -patient's baseline is "very confused", he is alert and occasionally remembers things. typically oriented x1, but has better moments -over the last 2 months he has been declining slowly, and over the last ~3 weeks he has been more somnolent at times -typically able to feed himself without issue -reports they treated him for high ammonia levels ~2-3 weeks ago -nephrology consulted, for assistance with hypernatremia - resolved -was on levaquin for UTI initially, urine culture no growth; but CRP continues to increase, likely from R buttocks pressure ulcer -ID consulted on 12/20 - resume levaquin -MRI table broken, pt unable to get into it, so CT pelvis was obtained - no definitive evidence of osteomyelitis -CRP continues to increase, now >200, procal minimally elevated as well, Urine on 12/20 without growth -likely from buttock pressure wound - has gotten larger, more eschar, and foul smell and slight drainage -blood cultures pending; nursing staff obtained superficial swab culture from [facility] 12/22 -pt does not appear septic, has remained afebrile, no leukocytosis -CXR negative for aspiration, CT Abd/pelvis ordered for today after discussion with ID - to r/o any other cause of elevated CRP -review of list of diagnoses from detention does not reveal any specific inflammatory conditions -will obtain RF, anti-ccp, BRITANY as well -[facility] soft diet and thin liquids per speech therapist -continue home meds -hankins dc'd for voiding trial, was reportedly placed at [place] for retention, hankins replaced due to retention -briefly reviewed urethral meatus laceration with urology, clean soap/water BID, bacitracin BID, f/u urology as outpatient Dispo: anticipate dc back to [facility] in ~2-3 days Time Spent Managing Pts Care (In Minutes): 45
[2020-12-22] MEDS: HYDROCODONE/APAP 5/325 MG TAB PO PRN (19:55)
[2020-12-22] MEDS: DONEPEZIL HCL 5 MG TAB PO SCH (19:55)
[2020-12-22] MEDS: GABAPENTIN 100 MG CAP PO SCH (19:56)
[2020-12-23 00:10] LABS: Rheumatoid Factor NEG (NEG)
[2020-12-23 04:06] LABS: Absolute Lymphocytes (CBC) 0.9 K/uL (0.7-4.9); Basophils % 0.4 % (0-1.3); Hematocrit 39.6 % (39.6-49.0); Lymphocytes % 10.2 % (15.3-44.8); MPV 9.1 fL (7.6-11.3); RBC Red Blood Cell Count 3.88 M/uL (4.33-5.43)
[2020-12-23 04:34] LABS: BUN Blood Urea Nitrogen 22 mg/dL (7-18); Bicarbonate 28 mmol/L (21-32); Glucose Level 98 mg/dL (74-106); Potassium 4.1 mmol/L (3.5-5.1); Sodium Level 146 mmol/L (136-145)
[2020-12-23] MEDS: HYDROCODONE/APAP 5/325 MG TAB PO PRN ×2 (05:19→14:19)
[2020-12-23] MEDS: LEVOTHYROXINE SOD 0.075 MG TAB PO SCH (05:19)
[2020-12-23] MEDS: INSULIN -REGULAR HUMAN 50 UNIT/0.5 ML ML SQ SCH ×4 (07:30→21:00)
[2020-12-23] MEDS: MEDIHONEY 44 ML TOPICAL TUBE TOP SCH (09:00)
[2020-12-23] MEDS: BACITRACIN OINTMENT 15 GM TUBE TOP SCH ×2 (09:00→21:00)
[2020-12-23] MEDS: JUVEN PACKET PO SCH ×2 (09:00→21:00)
[2020-12-23] MEDS: POTASS/SODIUM PHOSPHATE 1 PKT POWD.PACK PO SCH ×4 (09:20→21:47)
[2020-12-23] MEDS: ENSURE HIGH PROTEIN 237 ML CAN PO SCH ×2 (09:20→21:00)
[2020-12-23] MEDS: POLYETHYL GLY 3350 17 GM/DOSE PO SCH (09:20)
[2020-12-23] MEDS: GABAPENTIN 100 MG CAP PO SCH ×3 (09:20→21:47)
[2020-12-23] MEDS: FLUOXETINE 20 MG CAP PO SCH (09:21)
[2020-12-23] MEDS: METOPROLOL TAR 25 MG TAB PO SCH ×2 (09:21→21:45)
[2020-12-23] MEDS: PANTOPRAZOLE 40MG TABLET PO SCH (09:22)
[2020-12-23] MEDS: APIXABAN 2.5 MG TABLET PO SCH ×2 (09:22→21:44)
[2020-12-23] MEDS: CALCIUM CARB 500MG/VIT D 200 IU TAB PO SCH (09:22)
[2020-12-23] MEDS: DIVALPROEX ER 250 MG TAB PO SCH ×2 (09:23→21:46)
[2020-12-23] MEDS: levoFLOXacin 750 MG TAB PO SCH (09:23)
[2020-12-23] MEDS: PHENYTOIN ER 100 MG CAP PO SCH ×2 (09:23→21:45)
--- NOTE | 2020-12-23 12:03 | PN ---
Subjective: The patient lying in bed. No new acute event. Chart reviewed. Objective: Vital Signs: Temperature 97, pulse rate 97, respirations 16, blood pressure 131/70. Lungs: Basal crackles. Heart: S1, S2. Regular. Abdomen: Soft. Bowel sounds present. Extremities: 1+ edema. Laboratory Data: Shows a sacral area with large eschar and erythematous changes noted. WBC 8.9, hem oglobin 13.5, platelets 255. Chemistry shows sodium 146, potassium 4.1, chloride is 113, bicarb 28, BUN 32, creatinine 0.8, glucose is 145. Ammonia level is 99. Albumin is 1.9. The patient's abdomin al series, abdomen and chest shows mild posterior basilar atelectasis with no acute chest findings. CT of the abdomen shows no acute findings. Assessment And Plan: 1.The patient with elevated CPK. 2.Sacral unstageable wound. 3.Anemia and elevated ammonia level. 4.The patient also has severe protein calorie malnutrition and morbid obesity. Recommend to transfer the patient to long-term acute care for wound management and IV antibiotic. We will recommend to start patient on vancomycin and meropenem and monitor CPK level. We will follow t he patient closely. NF/MODL Voice ID: [id number] Report ID: [id number]
--- NOTE | 2020-12-23 13:34 | P.PN ---
Subjective Date of Service: 12/23/20 Chief Complaint: AMS, UTI Subjective: Other (more awake/alert this morning. reports chronic pain "all over", slow to answer questions at times. CRP continues to increase) Review of Systems 10-point ROS is otherwise unremarkable Physical Examination - Vital Signs Temperature: 97.1 F Blood Pressure: 114/59 Pulse: 84 Respirations: 16 Pulse Ox (%): 97 Assessment & Plan Physician Review Additional Text: Physical Exam General: AAOx1, awake, slow to answer questions HEENT: Mucous membr. moist/pink Respiratory: Clear to auscultation bilaterally, Normal air movement Cardiovascular: No edema, Regular rate/rhythm, Normal S1 S2 Gastrointestinal: Soft and benign, Non-distended, No tenderness Integumentary: unstageable R buttocks pressure wound, eschar, yellow-greenish tinged drainage on dressing, foul smelling : urethral meatus - tear to right lateral side, ~2-3 times as large, no bleed, no erythema, no purulent drainage Assessment And Plan Acute metabolic encephalopathy / AMS, improved hypernatremia, resolved Acute renal failure Alzheimer's dementia Chronic atrial fibrillation Dysphagia Unstageable R buttocks pressure wound laceration of urethral meatus hyperammonemia -AMS likely secondary to infection/hypernatremia, mentation improved, seems to be near/ at baseline -spoke with nurse at [place] who has taken care of patient intermittently for last 2 months: -patient's baseline is "very confused", he is alert and occasionally remembers things. typically oriented x1, but has better moments -over the last 2 months he has been declining slowly, and over the last ~3 weeks he has been more somnolent at times -typically able to feed himself without issue -reports they treated him for high ammonia levels ~2-3 weeks ago -nephrology consulted, for assistance with hypernatremia - resolved -was on levaquin for UTI initially, urine culture no growth; but CRP continues to increase, likely from R buttocks pressure ulcer, worsening -change levaquin to Cefepime and Vancomycin - merrem would interact with seizure medications - lowering serum levels -ID consulted -MRI table broken, pt unable to get into it, so CT pelvis was obtained - no definitive evidence of osteomyelitis -CRP continues to increase, now >200, procal minimally elevated as well, Urine on 12/20 without growth -likely from buttock pressure wound - has gotten larger, more eschar, and foul smell and slight drainage -blood cultures pending; nursing staff obtained superficial swab culture from wound on 12/22 -pt does not appear septic -CXR negative for aspiration, CT Abd/pelvis done on 12/22 to r/o any other cause of elevated CRP- rather unremarkable -review of list of diagnoses from [facility] does not reveal any specific inflammatory conditions -ammonia elevated yesterday, given lactulose,, +BM and ammonia level improved and pt more awake/alert this morning -RF, anti-ccp, BRITANY pending -[facility] soft diet and thin liquids per speech therapist -hankins dc'd for voiding trial, was reportedly placed at [place] for retention ~1month prior, hankins replaced due to retention -briefly reviewed urethral meatus laceration with urology, clean soap/water BID, bacitracin BID, f/u urology as outpatient Dispo: discussed with ID, given status of decubitus ulcer, patient's immobility, rising CRP, he would benefit most from LTAC for antibiotics and wound care attempted to call POA, unsuccessful multiple times. left voice mail. Brother called back yesterday just to state that he is not the PO and had a falling out with the patient several years ago. Time Spent Managing Pts Care (In Minutes): 40
[2020-12-23] MEDS: VANCOMYCIN 1.75 GM in NA CHLORIDE 0.9% 500 ML IVPB SCH (14:19)
[2020-12-23] MEDS ORDERED: CEFEPIME 2 GM VIAL IV SCH (17:00)
[2020-12-23] MEDS: CEFEPIME/SWI 2gm 2 GM/20 ML SYR IV SCH (17:03)
[2020-12-23] MEDS: DONEPEZIL HCL 5 MG TAB PO SCH (21:44)
[2020-12-24] MEDS: VANCOMYCIN 1.75 GM in NA CHLORIDE 0.9% 500 ML IVPB SCH ×2 (00:50→11:58)
[2020-12-24] MEDS: CEFEPIME/SWI 2gm 2 GM/20 ML SYR IV SCH ×3 (00:51→17:43)
[2020-12-24 04:03] LABS: Absolute Lymphocytes (CBC) 0.9 K/uL (0.7-4.9); Basophils % 0.3 % (0-1.3); Hematocrit 37.6 % (39.6-49.0); Lymphocytes % 11.9 % (15.3-44.8); MPV 8.8 fL (7.6-11.3); RBC Red Blood Cell Count 3.66 M/uL (4.33-5.43)
[2020-12-24 04:17] LABS: ALT/SGPT 11 U/L (12-78); AST/SGOT 15 U/L (15-37); Albumin 1.7 g/dL (3.4-5.0); Alkaline Phosphatase 46 U/L (45-117); BUN Blood Urea Nitrogen 26 mg/dL (7-18); Bicarbonate 30 mmol/L (21-32); Bilirubin Total 0.3 mg/dL (0.2-1.0); Creatine Phosphokinase 33 U/L (39-308); Glucose Level 91 mg/dL (74-106); Potassium 4.2 mmol/L (3.5-5.1); Sodium Level 149 mmol/L (136-145)
[2020-12-24] MEDS: LEVOTHYROXINE SOD 0.075 MG TAB PO SCH (06:00)
[2020-12-24] MEDS: INSULIN -REGULAR HUMAN 50 UNIT/0.5 ML ML SQ SCH ×4 (07:30→21:00)
[2020-12-24] MEDS ORDERED: D50W 25 GM/50 ML SYRINGE IV ONE (07:34)
[2020-12-24] MEDS: levoFLOXacin 750 MG TAB PO SCH (08:05)
[2020-12-24] MEDS: PANTOPRAZOLE 40MG TABLET PO SCH (08:06)
[2020-12-24] MEDS: GABAPENTIN 100 MG CAP PO SCH ×3 (08:06→20:06)
[2020-12-24] MEDS: FLUOXETINE 20 MG CAP PO SCH (08:06)
[2020-12-24] MEDS: PHENYTOIN ER 100 MG CAP PO SCH ×2 (08:06→20:05)
[2020-12-24] MEDS: DIVALPROEX ER 250 MG TAB PO SCH ×2 (08:06→20:05)
[2020-12-24] MEDS: CALCIUM CARB 500MG/VIT D 200 IU TAB PO SCH (08:06)
[2020-12-24] MEDS: APIXABAN 2.5 MG TABLET PO SCH ×3 (08:06→21:00)
[2020-12-24] MEDS: POTASS/SODIUM PHOSPHATE 1 PKT POWD.PACK PO SCH ×4 (08:06→20:05)
[2020-12-24] MEDS: ENSURE HIGH PROTEIN 237 ML CAN PO SCH ×2 (08:08→21:00)
[2020-12-24] MEDS: JUVEN PACKET PO SCH ×2 (08:08→21:00)
[2020-12-24] MEDS: POLYETHYL GLY 3350 17 GM/DOSE PO SCH (08:09)
[2020-12-24] MEDS: METOPROLOL TAR 25 MG TAB PO SCH ×2 (08:09→21:00)
[2020-12-24] MEDS: BACITRACIN OINTMENT 15 GM TUBE TOP SCH ×2 (08:39→21:00)
--- NOTE | 2020-12-24 12:41 | P.PN ---
Subjective Date of Service: 12/24/20 Chief Complaint: AMS, UTI Patient seen examined in bed, no acute events were past 24 hr. Review of Systems 10-point ROS is otherwise unremarkable Physical Examination - Vital Signs Temperature: 98.2 F Blood Pressure: 106/70 Pulse: 70 Respirations: 20 Pulse Ox (%): 95 Assessment And Plan - Plan General: In no apparent distress HEENT: Atraumatic, Normocephalic Neck: Supple Respiratory: Clear to auscultation bilaterally, Normal air movement Cardiovascular: No edema, Normal pulses Capillary refill: <2 Seconds Gastrointestinal: Normal bowel sounds Musculoskeletal: No clubbing, No swelling Integumentary: Pressure ulcer (Sacral unstageable ulcer.) antibiotics: vancomycin start: 12/23 stop:-- cefepime: start: 12/23 stop: -- Assessment: -altered mental status -urinary tract infection. -sacral decubitus ulcer unstageable Plan: -mentation improving, altered mental status likely due to infection/electrolyte imbalance. -urine culture negative. -Continue vancomycin and cefepime due to infected sacral wound. -dressing to sacral wound: Betadine wet to dry daily. -medical management per primary team -continue monitor CBC and BMP -continue monitor signs infection Plan of care discussed with Dr. Patel. Thank you for consultation. Physician Review Additional Text: Physical Exam General: AAOx1, awake, slow to answer questions HEENT: Mucous membr. moist/pink Respiratory: Clear to auscultation bilaterally, Normal air movement Cardiovascular: No edema, Regular rate/rhythm, Normal S1 S2 Gastrointestinal: Soft and benign, Non-distended, No tenderness Integumentary: unstageable R buttocks pressure wound, eschar, yellow-greenish tinged drainage on dressing, foul smelling : urethral meatus - tear to right lateral side, ~2-3 times as large, no bleed, no erythema, no purulent drainage Assessment And Plan Acute metabolic encephalopathy / AMS, improved hypernatremia, resolved Acute renal failure Alzheimer's dementia Chronic atrial fibrillation Dysphagia Unstageable R buttocks pressure wound laceration of urethral meatus hyperammonemia -AMS likely secondary to infection/hypernatremia, mentation improved, seems to be near/ at baseline -spoke with nurse at [place] who has taken care of patient intermittently for last 2 months: -patient's baseline is "very confused", he is alert and occasionally remembers things. typically oriented x1, but has better moments -over the last 2 months he has been declining slowly, and over the last ~3 weeks he has been more somnolent at times -typically able to feed himself without issue -reports they treated him for high ammonia levels ~2-3 weeks ago -nephrology consulted, for assistance with hypernatremia - resolved -was on levaquin for UTI initially, urine culture no growth; but CRP continues to increase, likely from R buttocks pressure ulcer, worsening -change levaquin to Cefepime and Vancomycin - merrem would interact with seizure medications - lowering serum levels -ID consulted -MRI table broken, pt unable to get into it, so CT pelvis was obtained - no definitive evidence of osteomyelitis -CRP continues to increase, now >200, procal minimally elevated as well, Urine on 12/20 without growth -likely from buttock pressure wound - has gotten larger, more eschar, and foul smell and slight drainage -blood cultures pending; nursing staff obtained superficial swab culture from wound on 12/22 -pt does not appear septic -CXR negative for aspiration, CT Abd/pelvis done on 12/22 to r/o any other cause of elevated CRP- rather unremarkable -review of list of diagnoses from retirement does not reveal any specific inflammatory conditions -ammonia elevated yesterday, given lactulose,, +BM and ammonia level improved and pt more awake/alert this morning -RF, anti-ccp, BRITANY pending [facility] speech therapist -hankins dc'd for voiding trial, was reportedly placed at [place] for retention ~1month prior, hankins replaced due to retention -briefly reviewed urethral meatus laceration with urology, clean soap/water BID, bacitracin BID, f/u urology as outpatient Dispo: discussed with ID, given status of decubitus ulcer, patient's immobility, rising CRP, he would benefit most from LTAC for antibiotics and wound care attempted to call POA, unsuccessful multiple times. left voice mail. Brother called back yesterday just to state that he is not the PO and had a falling out with the patient several years ago.
--- NOTE | 2020-12-24 14:13 | P.PN ---
Subjective Date of Service: 12/24/20 Chief Complaint: AMS, UTI Patient remain confused. Urine culture yielded no growth. He is persistently hypernatremic. Poor oral intake. Mildly hypoglycemic this morning. Physical Examination - Vital Signs Temperature: 98.2 F Blood Pressure: 106/70 Pulse: 70 Respirations: 20 Pulse Ox (%): 95 - Physical Exam General: Confused, Obese HEENT: Mucous membr. moist/pink Neck: JVD not distended Respiratory: Clear to auscultation bilaterally, Normal air movement Cardiovascular: Regular rate/rhythm, Normal S1 S2, Edema (1+ lower extremity edema) Gastrointestinal: Normal bowel sounds, Soft and benign, Non-distended, No tenderness Musculoskeletal: No tenderness Integumentary: Other (Sacral decubitus ulcer) Neurological: Other (Confused.) Assessment And Plan - Current Problems (Diagnosis) (1) Metabolic encephalopathy Current Visit: Yes Status: Acute (2) AMS (altered mental status) Current Visit: Yes Status: Acute Qualifiers: Altered mental status type: unspecified Qualified Code(s): R41.82 - Altered mental status, unspecified (3) UTI (urinary tract infection) Current Visit: No Status: Acute Qualifiers: Urinary tract infection type: site unspecified Hematuria presence: with hematuria Qualified Code(s): N39.0 - Urinary tract infection, site not specified; R31.9 - Hematuria, unspecified (4) Acute renal failure Current Visit: Yes Status: Acute (5) Alzheimer's dementia Onset Date: 03/08/18 Current Visit: No Status: Chronic (6) Chronic a-fib Current Visit: No Status: Chronic (7) Dysphagia Current Visit: Yes Status: Acute Physician Review Additional Text: Physical Exam General: AAOx1, awake, slow to answer questions HEENT: Mucous membr. moist/pink Respiratory: Clear to auscultation bilaterally, Normal air movement Cardiovascular: No edema, Regular rate/rhythm, Normal S1 S2 Gastrointestinal: Soft and benign, Non-distended, No tenderness Integumentary: unstageable R buttocks pressure wound, eschar, yellow-greenish tinged drainage on dressing, foul smelling : urethral meatus - tear to right lateral side, ~2-3 times as large, no bleed, no erythema, no purulent drainage Assessment And Plan Acute metabolic encephalopathy / AMS, improved hypernatremia, resolved Acute renal failure Alzheimer's dementia Chronic atrial fibrillation Dysphagia Unstageable R buttocks pressure wound laceration of urethral meatus hyperammonemia -AMS likely secondary to infection/hypernatremia, mentation improved, seems to be near/ at baseline -spoke with nurse at [place] who has taken care of patient intermittently for last 2 months: -patient's baseline is "very confused", he is alert and occasionally remembers things. typically oriented x1, but has better moments -over the last 2 months he has been declining slowly, and over the last ~3 weeks he has been more somnolent at times -typically able to feed himself without issue -reports they treated him for high ammonia levels ~2-3 weeks ago -nephrology consulted, for assistance with hypernatremia. Patient has intermittent hypernatremia -was on levaquin for UTI initially, urine culture no growth; but CRP continues to increase, likely from R buttocks pressure ulcer, worsening -change levaquin to Cefepime and Vancomycin - merrem lower stress showed for seizures. -ID is following. -CT pelvis was obtained - no definitive evidence of osteomyelitis -CRP continues to increase, now >200, procal minimally elevated as well, Urine on 12/20 without growth -likely from buttock pressure wound - has gotten larger, more eschar, and foul smell and slight drainage -blood cultures pending; nursing staff obtained superficial swab culture from wound on 12/22 -pt does not appear septic. -CXR negative for aspiration, CT Abd/pelvis done on 12/22 to r/o any other cause of elevated CRP- rather unremarkable -RF, anti-ccp, BRITANY pending -[facility] soft diet and thin liquids per speech therapist -hankins dc'd for voiding trial, was reportedly placed at [place] for retention ~1month prior, hankins replaced due to retention -briefly reviewed urethral meatus laceration with urology, clean soap/water BID, bacitracin BID, f/u urology as outpatient. -general surgery consult to evaluate sacral wound Dispo: discussed with ID, given status of decubitus ulcer, patient's immobility, rising CRP, he would benefit most from LTAC for antibiotics and wound care.
--- NOTE | 2020-12-24 16:01 | CON ---
Date of Consultation: 12/24/2020 Reason For Consultation: Sacral decubitus. History Of Present Illness: The patient is a 75-year-old gentleman with multiple medical problems, n [facility] home patient, who was admitted more than a week ago with altered mental status and UTI and on his workup revealed to have a sacral decubitus, and I was asked to evaluate. The patient is unable t o provide adequate review of systems because of his mental status, but there has been no purulent dis charge per the nursing staff and no recent high temperatures. No sore throat, runny nose, cough, hea daches, or dizziness. No chest pain. Did have some meatal tear that was being managed by Urology as well. Review of Systems: Otherwise unremarkable. Past Medical History: Dementia, AFib, bronchitis, hypertension, hypothyroidism, seizures, depression , bipolar disorder, encephalopathy, hyperlipidemia, weakness, cognitive impairment. Past Surgical History: None per computer chart. Allergies: REVIEWED INCLUDE PENICILLIN AND BAT SERUM ALLERGY. Social History: The patient does not smoke or drink alcohol. Family History: Noncontributory. Physical Examination: Vital Signs: Stable. He is afebrile. General: He is awake, alert, confused. Head and Neck: No masses. Chest: Clear. Heart: S1, S2. Abdomen: Soft. Extremities: Neurovascularly intact. Neurologic: Nonfocal. On the sacrum, there is approximately 8 x 10 cm necrotic eschar, unstageable sacral decubitus. There is no significant surrounding erythema. There is no purulence that can be v isualized. There is some stool around the wound. The patient recently had a bowel movement, so a fu ll assessment at this time could not be made; however, the wound does need surgical debridement. Laboratory Data: His cultures reviewed. There is no growth of any bacteria at this time. Laborator y data reveals a white count of 7.6, H and H 12.7 and 37.6. MCV is elevated. He does have a left sh ift. Sed rate is elevated at 57. INR is 1.31, PT 15.1. Chemistry reviewed. Assessment: Sacral decubitus, unstageable, the patient with multiple medical problems. Recommendations: Nutritional optimization, vitamins as ordered, offloading, air mattress. The patie nt needs surgical debridement. We will obtain consent from the appropriate next of kin or power of a ttorney and then we will proceed with debridement of the sacral decubitus and institute local wound c are after that and he prior will need long-term [facility] facility or LTAC for further management of his disease and wounds. ALEJANDRA/NAYAN Voice ID: [id number] Report ID: [id number]
[2020-12-24] MEDS: DONEPEZIL HCL 5 MG TAB PO SCH (20:05)
[2020-12-24] MEDS: ACETAMINOPHEN 500 MG TAB PO PRN (20:06)
[2020-12-25] MEDS: VANCOMYCIN 1.75 GM in NA CHLORIDE 0.9% 500 ML IVPB SCH ×2 (01:00→13:00)
[2020-12-25] MEDS: CEFEPIME/SWI 2gm 2 GM/20 ML SYR IV SCH ×3 (01:26→17:01)
[2020-12-25] MEDS: HYDROCODONE/APAP 5/325 MG TAB PO PRN (01:26)
[2020-12-25] MEDS: LEVOTHYROXINE SOD 0.075 MG TAB PO SCH (04:34)
[2020-12-25] MEDS: INSULIN -REGULAR HUMAN 50 UNIT/0.5 ML ML SQ SCH ×4 (07:30→21:00)
[2020-12-25] MEDS: DIVALPROEX ER 250 MG TAB PO SCH ×2 (08:25→21:36)
[2020-12-25] MEDS: POLYETHYL GLY 3350 17 GM/DOSE PO SCH (08:25)
[2020-12-25] MEDS: APIXABAN 2.5 MG TABLET PO SCH ×2 (08:25→21:00)
[2020-12-25] MEDS: METOPROLOL TAR 25 MG TAB PO SCH ×2 (08:25→21:35)
[2020-12-25] MEDS: ENSURE HIGH PROTEIN 237 ML CAN PO SCH ×2 (08:25→21:38)
[2020-12-25] MEDS: PHENYTOIN ER 100 MG CAP PO SCH ×2 (08:25→21:35)
[2020-12-25] MEDS: JUVEN PACKET PO SCH ×2 (08:25→21:38)
[2020-12-25] MEDS: POTASS/SODIUM PHOSPHATE 1 PKT POWD.PACK PO SCH ×4 (08:26→21:38)
[2020-12-25] MEDS: PANTOPRAZOLE 40MG TABLET PO SCH (08:26)
[2020-12-25] MEDS: FLUOXETINE 20 MG CAP PO SCH (08:26)
[2020-12-25] MEDS: CALCIUM CARB 500MG/VIT D 200 IU TAB PO SCH (08:26)
[2020-12-25] MEDS: GABAPENTIN 100 MG CAP PO SCH ×3 (08:26→21:34)
[2020-12-25] MEDS: BACITRACIN OINTMENT 15 GM TUBE TOP SCH ×2 (08:40→21:37)
--- NOTE | 2020-12-25 10:35 | P.PN ---
Subjective Date of Service: 12/25/20 Chief Complaint: AMS, UTI Patient seen examined in bed, no acute events were past 24 hr. Review of Systems 10-point ROS is otherwise unremarkable Physical Examination - Vital Signs Temperature: 97.5 F Blood Pressure: 105/57 Pulse: 104 Respirations: 14 Pulse Ox (%): 98 - Studies Temp Pulse Resp BP Pulse Ox 97.5 F 104 H 14 105/57 L 98 12/25/20 08:00 12/25/20 08:00 12/25/20 08:00 12/25/20 08:00 12/25/20 08:00 Assessment And Plan - Plan General: In no apparent distress HEENT: Atraumatic, Normocephalic Neck: Supple Respiratory: Clear to auscultation bilaterally, Normal air movement Cardiovascular: No edema, Normal pulses Capillary refill: <2 Seconds Gastrointestinal: Normal bowel sounds Musculoskeletal: No clubbing, No swelling Integumentary: Pressure ulcer (Sacral unstageable ulcer.) antibiotics: vancomycin start: 12/23 stop:-- cefepime: start: 12/23 stop: -- Assessment: -altered mental status -urinary tract infection. -sacral decubitus ulcer unstageable Plan: -mentation improving, altered mental status likely due to infection/electrolyte imbalance. -urine culture negative. -Continue vancomycin and cefepime due to infected sacral wound. Vancomycin taken on 12/25 was 28.3-unsure if this is correct reading. Repeat trough has been ordered. Trough goal of 10-15. Plan for surgical debridement, surgery on case. Patient will need placement at LTAC. -dressing to sacral wound: Betadine wet to dry daily. -medical management per primary team -continue monitor CBC and BMP -continue monitor signs infection Plan of care discussed with Dr. Patel. Thank you for consultation.
--- NOTE | 2020-12-25 19:40 | P.PN ---
Subjective Date of Service: 12/25/20 Chief Complaint: AMS, UTI Patient remain confused. Urine culture yielded no growth. No major changes from yesterday. No hypoglycemia episode Poor oral intake. Physical Examination - Vital Signs Temperature: 97.3 F Blood Pressure: 119/56 Pulse: 115 Respirations: 20 Pulse Ox (%): 99 - Physical Exam General: Confused, Other (Awake) HEENT: Mucous membr. moist/pink Neck: JVD not distended Respiratory: Clear to auscultation bilaterally, Diminished Cardiovascular: Regular rate/rhythm, Normal S1 S2 Gastrointestinal: Soft and benign, Non-distended, No tenderness Musculoskeletal: No swelling Neurological: Other (Confused.) Assessment And Plan - Current Problems (Diagnosis) (1) Metabolic encephalopathy Current Visit: Yes Status: Acute (2) AMS (altered mental status) Current Visit: Yes Status: Acute Qualifiers: Altered mental status type: unspecified Qualified Code(s): R41.82 - Altered mental status, unspecified (3) UTI (urinary tract infection) Current Visit: No Status: Acute Qualifiers: Urinary tract infection type: site unspecified Hematuria presence: with hematuria Qualified Code(s): N39.0 - Urinary tract infection, site not specified; R31.9 - Hematuria, unspecified (4) Acute renal failure Current Visit: Yes Status: Acute (5) Alzheimer's dementia Onset Date: 03/08/18 Current Visit: No Status: Chronic (6) Chronic a-fib Current Visit: No Status: Chronic (7) Dysphagia Current Visit: Yes Status: Acute Physician Review Additional Text: Assessment And Plan Acute metabolic encephalopathy / AMS, improved hypernatremia, resolved Acute renal failure Alzheimer's dementia Chronic atrial fibrillation Dysphagia Unstageable R buttocks pressure wound laceration of urethral meatus hyperammonemia -AMS likely secondary to infection/hypernatremia, mentation improved, seems to be near/ at baseline -spoke with nurse at [facility] who has taken care of patient intermittently for last 2 months: -patient's baseline is "very confused", he is alert and occasionally remembers things. typically oriented x1, but has better moments -over the last 2 months he has been declining slowly, and over the last ~3 weeks he has been more somnolent at times -typically able to feed himself without issue -reports they treated him for high ammonia levels ~2-3 weeks ago -nephrology consulted, for assistance with hypernatremia. Patient has intermittent hypernatremia -was on levaquin for UTI initially, urine culture no growth; but CRP continues to increase, likely from R buttocks pressure ulcer, worsening -antibiotics changed to Cefepime and Vancomycin - merrem lower stress showed for seizures. -ID is following. -CT pelvis was obtained - no definitive evidence of osteomyelitis -CRP continues to increase, now >200, procal minimally elevated as well, Urine on 12/20 without growth -likely from buttock pressure wound - has gotten larger, more eschar, and foul smell and slight drainage -blood cultures pending; nursing staff obtained superficial swab culture from wound on 12/22 -pt does not appear septic. -CXR negative for aspiration, CT Abd/pelvis done on 12/22 to r/o any other cause of elevated CRP- rather unremarkable -RF, anti-ccp, BRITANY pending -mech soft diet and thin liquids per speech therapist -hankins dc'd for voiding trial, was reportedly placed at [facility] for retention ~1month prior, hankins replaced due to retention -briefly reviewed urethral meatus laceration with urology, clean soap/water BID, bacitracin BID, f/u urology as outpatient. -general surgery-Dr. Mckeon recommend surgical debridement. No NPO or guardian identified to sign the consent. -surgical debridement is necessary. -will discuss options for consent with Dr. Mckeon. Dispo: Given status of decubitus ulcer, patient's immobility, rising CRP, he would benefit most from LTAC for antibiotics and wound care.
[2020-12-25] MEDS: DONEPEZIL HCL 5 MG TAB PO SCH (21:36)
[2020-12-25] MEDS: VANCOMYCIN 1.5 GM in NA CHLORIDE 0.9% 500 ML IVPB SCH (22:08)
[2020-12-26] MEDS: CEFEPIME/SWI 2gm 2 GM/20 ML SYR IV SCH ×3 (00:25→17:54)
[2020-12-26] MEDS: LEVOTHYROXINE SOD 0.075 MG TAB PO SCH (06:00)
[2020-12-26 06:09] LABS: Absolute Lymphocytes (CBC) 1.2 K/uL (0.7-4.9); Basophils % 0.5 % (0-1.3); Hematocrit 40.3 % (39.6-49.0); Lymphocytes % 9.3 % (15.3-44.8); MPV 8.3 fL (7.6-11.3); RBC Red Blood Cell Count 3.92 M/uL (4.33-5.43)
[2020-12-26 06:35] LABS: Albumin 1.8 g/dL (3.4-5.0); Bilirubin Total 0.5 mg/dL (0.2-1.0); Protein, Total 6.6 g/dL (6.4-8.2)
[2020-12-26] MEDS: INSULIN -REGULAR HUMAN 50 UNIT/0.5 ML ML SQ SCH ×4 (07:30→21:00)
[2020-12-26] MEDS: ENSURE HIGH PROTEIN 237 ML CAN PO SCH ×2 (08:01→21:43)
[2020-12-26] MEDS: DIVALPROEX ER 250 MG TAB PO SCH ×2 (08:01→21:41)
[2020-12-26] MEDS: APIXABAN 2.5 MG TABLET PO SCH ×2 (08:01→21:00)
[2020-12-26] MEDS: PHENYTOIN ER 100 MG CAP PO SCH ×2 (08:01→21:41)
[2020-12-26] MEDS: CALCIUM CARB 500MG/VIT D 200 IU TAB PO SCH (08:02)
[2020-12-26] MEDS: POTASS/SODIUM PHOSPHATE 1 PKT POWD.PACK PO SCH ×4 (08:02→21:42)
[2020-12-26] MEDS: JUVEN PACKET PO SCH ×2 (08:02→21:43)
[2020-12-26] MEDS: METOPROLOL TAR 25 MG TAB PO SCH ×2 (08:02→21:40)
[2020-12-26] MEDS: GABAPENTIN 100 MG CAP PO SCH ×3 (08:02→21:42)
[2020-12-26] MEDS: PANTOPRAZOLE 40MG TABLET PO SCH (08:02)
[2020-12-26] MEDS: POLYETHYL GLY 3350 17 GM/DOSE PO SCH (08:02)
[2020-12-26] MEDS: FLUOXETINE 20 MG CAP PO SCH (08:02)
[2020-12-26] MEDS: BACITRACIN OINTMENT 15 GM TUBE TOP SCH ×2 (08:04→21:45)
[2020-12-26 08:19] LABS: Blood Morphology Comment NOT SEEN (NOT SEEN); Platelet Estimate ADEQ
[2020-12-26] MEDS ORDERED: NA CHLORIDE 0.9% 1,000 ML ONE (10:33)
[2020-12-26] MEDS ORDERED: D5 0.45 NS 1,000 ML IV SCH (11:00)
[2020-12-26] MEDS ORDERED: FENTANYL CITR 100 MCG/2 ML ONE (11:27)
[2020-12-26] MEDS ORDERED: propofoL 200 MG/20 ML VIAL IV ONE (11:27)
[2020-12-26] MEDS ORDERED: MIDAZOLAM HCL 2 MG/2 ML INJ ONE (11:28)
[2020-12-26] MEDS ORDERED: ONDANSETRON 4 MG/2 ML VIAL ONE (11:31)
[2020-12-26] MEDS ORDERED: GLYCOPYRROLATE 0.2 MG/ML SYR ONE (11:46)
[2020-12-26] MEDS ORDERED: LIDOCAINE 2% MPF 5 ML VIAL ONE (11:47)
[2020-12-26] MEDS ORDERED: NEOSTIGMINE 1 MG/ML -5 ML ONE (11:47)
[2020-12-26] MEDS ORDERED: ROCURONIUM 50 MG/5 ML VIAL IV ONE (11:47)
[2020-12-26] MEDS ORDERED: EPHEDRINE SULF 50 MG/ML VIAL ONE (11:53)
[2020-12-26] MEDS ORDERED: SUCCINYLCHOLINE 20 MG/ML (10 ML) IV ONE (11:59)
[2020-12-26] MEDS ORDERED: Phenylephrine HCl 10 MG/ML 1 ML VIAL ONE ×2 (12:19→12:29)
--- NOTE | 2020-12-26 12:32 | P.OP ---
Computer Systems Engineer: NONE,NONE Preoperative diagnosis: Infected right buttock decubitus Postoperative diagnosis: same Primary procedure: Excisional debridement infected right buttock wound 10 x 8 x 5 cm Anesthesia: General Estimated blood loss: min Specimen: C&S Findings: as above Complications: None Transferred to: Recovery Room Condition: Good
--- NOTE | 2020-12-26 12:51 | P.PN ---
Subjective Date of Service: 12/26/20 Chief Complaint: AMS, UTI Patient remain confused. Status post wound debridement today Physical Examination - Vital Signs Temperature: 96.8 F Blood Pressure: 108/53 Pulse: 101 Respirations: 17 Pulse Ox (%): 95 - Physical Exam General: Confused, Other (Awake) HEENT: Mucous membr. moist/pink Neck: JVD not distended Respiratory: Clear to auscultation bilaterally, Diminished Cardiovascular: Regular rate/rhythm, Normal S1 S2, Edema (Bilateral lower extremities) Gastrointestinal: Soft and benign, Non-distended, No tenderness Assessment And Plan - Current Problems (Diagnosis) (1) Metabolic encephalopathy Current Visit: Yes Status: Acute (2) AMS (altered mental status) Current Visit: Yes Status: Acute Qualifiers: Altered mental status type: unspecified Qualified Code(s): R41.82 - Altered mental status, unspecified (3) UTI (urinary tract infection) Current Visit: No Status: Acute Qualifiers: Urinary tract infection type: site unspecified Hematuria presence: with hematuria Qualified Code(s): N39.0 - Urinary tract infection, site not specified; R31.9 - Hematuria, unspecified (4) Acute renal failure Current Visit: Yes Status: Acute (5) Alzheimer's dementia Onset Date: 03/08/18 Current Visit: No Status: Chronic (6) Chronic a-fib Current Visit: No Status: Chronic (7) Dysphagia Current Visit: Yes Status: Acute Physician Review Additional Text: Assessment And Plan Acute metabolic encephalopathy / AMS, improved hypernatremia, resolved Acute renal failure Alzheimer's dementia Chronic atrial fibrillation Dysphagia Unstageable R buttocks pressure wound laceration of urethral meatus hyperammonemia -AMS likely secondary to infection/hypernatremia, mentation improved, seems to be near/ at baseline -spoke with nurse at [facility] who has taken care of patient intermittently for last 2 months: -patient's baseline is "very confused", he is alert and occasionally remembers things. typically oriented x1, but has better moments -over the last 2 months he has been declining slowly, and over the last ~3 weeks he has been more somnolent at times -typically able to feed himself without issue -reports they treated him for high ammonia levels ~2-3 weeks ago -nephrology consulted, for assistance with hypernatremia. Patient has intermittent hypernatremia -was on levaquin for UTI initially, urine culture no growth; but CRP continues to increase, likely from R buttocks pressure ulcer, worsening -antibiotics changed to Cefepime and Vancomycin - merrem lower stress showed for seizures. -ID is following. -CT pelvis was obtained - no definitive evidence of osteomyelitis -likely from buttock pressure wound - has gotten larger, more eschar, and foul smell and slight drainage -blood cultures: No growth. Wound culture: Proteus and ohaar-resistant Acinetobacter -CXR negative for aspiration, CT Abd/pelvis done on 12/22 to r/o any other cause of elevated CRP- rather unremarkable [facility] -hankins dc'd for voiding trial, was reportedly placed at [facility] for retention ~1month prior, hankins replaced due to retention -briefly reviewed urethral meatus laceration with urology, clean soap/water BID, bacitracin BID, f/u urology as outpatient. -status post surgical debridement of wound by Dr. Mckeon.
[2020-12-26] MEDS ORDERED: D50W 50 ML IV ONE (13:16)
[2020-12-26] MEDS ORDERED: HYDROMORPHONE HCL 1 MG/ML INJ ONE (13:22)
--- NOTE | 2020-12-26 14:02 | OP ---
Date of Procedure: 12/26/2020 Surgeon: Devonte Mckeon MD Print Washer: None. Preoperative Diagnosis: Infected wound, right buttock. Postoperative Diagnosis: Infected wound, right buttock. Procedure: Excisional debridement of right buttock wound, infected, 10 x 8 x 5 cm and deep subcutane ous tissue. Estimated Blood Loss: Minimal. Specimen: Culture and sensitivity of the pus and infected tissue. Findings: As above. Anesthesia: General. Complications: None. Disposition: The patient tolerated the procedure in stable condition and taken to Recovery in good g eneral condition. Procedure In Detail: The patient was brought to the OR and placed in supine position. General anest hesia begun. The patient was placed in left lateral position, prepped and draped in the usual steril e fashion. Marcaine 0.5% was infiltrated locally and a sharp dissection utilizing cautery was done. An incision of approximately 10 x 8 x 5 cm was made down to the subcutaneous tissue where a pocket o f pus under pressure was evacuated. Cultures were done. Necrotic tissue debrided. Wound irrigated. Bleeding controlled with cautery. Wet-to-dry normal saline dressing change applied. The patient t olerated the procedure in stable condition and taken to Recovery in good general condition. /MODL Voice ID: [id number] Report ID: [id number]
[2020-12-26] MEDS: VANCOMYCIN 1.5 GM in NA CHLORIDE 0.9% 500 ML IVPB SCH (20:51)
[2020-12-26] MEDS: DONEPEZIL HCL 5 MG TAB PO SCH (21:42)
[2020-12-27] MEDS: CEFEPIME/SWI 2gm 2 GM/20 ML SYR IV SCH ×3 (01:08→17:23)
[2020-12-27] MEDS: LEVOTHYROXINE SOD 0.075 MG TAB PO SCH (05:20)
[2020-12-27] MEDS: INSULIN -REGULAR HUMAN 50 UNIT/0.5 ML ML SQ SCH ×4 (07:30→21:00)
[2020-12-27 07:39] LABS: Hematocrit 36.4 % (39.6-49.0); Lymphocytes % 12.2 % (15.3-44.8); MPV 8.2 fL (7.6-11.3); RBC Red Blood Cell Count 3.52 M/uL (4.33-5.43)
[2020-12-27 07:59] LABS: Potassium 4.1 mmol/L (3.5-5.1)
[2020-12-27 08:00] LABS: Albumin 1.6 g/dL (3.4-5.0); Bilirubin Total 0.3 mg/dL (0.2-1.0); Protein, Total 5.8 g/dL (6.4-8.2)
[2020-12-27] MEDS: GABAPENTIN 100 MG CAP PO SCH ×3 (08:04→22:01)
[2020-12-27] MEDS: POLYETHYL GLY 3350 17 GM/DOSE PO SCH (08:04)
[2020-12-27] MEDS: CALCIUM CARB 500MG/VIT D 200 IU TAB PO SCH (08:04)
[2020-12-27] MEDS: APIXABAN 2.5 MG TABLET PO SCH ×2 (08:04→22:02)
[2020-12-27] MEDS: PHENYTOIN ER 100 MG CAP PO SCH ×2 (08:04→22:01)
[2020-12-27] MEDS: FLUOXETINE 20 MG CAP PO SCH (08:04)
[2020-12-27] MEDS: POTASS/SODIUM PHOSPHATE 1 PKT POWD.PACK PO SCH ×4 (08:04→21:59)
[2020-12-27] MEDS: DIVALPROEX ER 250 MG TAB PO SCH ×2 (08:04→22:00)
[2020-12-27] MEDS: BACITRACIN OINTMENT 15 GM TUBE TOP SCH ×2 (08:05→21:00)
[2020-12-27] MEDS: ENSURE HIGH PROTEIN 237 ML CAN PO SCH ×2 (08:05→21:57)
[2020-12-27] MEDS: JUVEN PACKET PO SCH ×2 (08:05→21:00)
[2020-12-27] MEDS: METOPROLOL TAR 25 MG TAB PO SCH ×2 (08:09→22:03)
[2020-12-27] MEDS: PANTOPRAZOLE 40MG TABLET PO SCH (08:09)
[2020-12-27 09:22] LABS: Blood Morphology Comment NOT SEEN (NOT SEEN); Platelet Estimate ADEQ
--- NOTE | 2020-12-27 09:56 | P.PN ---
Subjective Date of Service: 12/27/20 Chief Complaint: AMS, UTI Patient seen examined in bed, surgical debridement of sacral wound performed yesterday. Review of Systems 10-point ROS is otherwise unremarkable Physical Examination - Vital Signs Temperature: 97.1 F Blood Pressure: 98/61 Pulse: 92 Respirations: 20 Pulse Ox (%): 96 - Studies Temp Pulse Resp BP Pulse Ox 97.1 F 92 H 20 98/61 96 12/27/20 08:00 12/27/20 08:09 12/27/20 08:00 12/27/20 08:09 12/27/20 08:00 Temp Pulse Resp BP Pulse Ox 97.1 F 92 H 20 98/61 96 12/27/20 08:00 12/27/20 08:09 12/27/20 08:00 12/27/20 08:09 12/27/20 08:00 Assessment And Plan - Plan General: In no apparent distress HEENT: Atraumatic, Normocephalic Neck: Supple Respiratory: Clear to auscultation bilaterally, Normal air movement Cardiovascular: No edema, Normal pulses Capillary refill: <2 Seconds Gastrointestinal: Normal bowel sounds Musculoskeletal: No clubbing, No swelling Integumentary: Pressure ulcer (Sacral unstageable ulcer.) antibiotics: vancomycin start: 12/23 stop:-- cefepime: start: 12/23 stop: -- Assessment: -altered mental status -urinary tract infection. -sacral decubitus ulcer unstageable Plan: -mentation improving, altered mental status likely due to infection/electrolyte imbalance. -urine culture negative. -Continue vancomycin and cefepime due to infected sacral wound. Continue monitor vancomycin trough. Vanc trough taken on 12/26 was 21.0 this is above therapeutic--recommend skip a dose of Vanco. Continue to monitor renal function very closely. Surgical debridement of sacral wound performed on 12/25. Patient doing well with no complications. Recommend wound care with Sant[facility] the week. -medical management per primary team -continue monitor CBC and BMP -continue monitor signs infection Plan of care discussed with Dr. Patel. Thank you for consultation.
[2020-12-27] MEDS: D5W 1,000 ML IV SCH (11:14)
--- NOTE | 2020-12-27 13:13 | PN ---
Date of Progress Note: 12/27/2020 Subjective: The patient is confused. Vitals are stable. Afebrile. Wound is clean. No surrounding erythema, warmth or edema. Some fibrin present. Cultures reviewed. These got proteus which is sen sitive to cefepime and acinetobacter which is not sensitive to any of the antibiotics listed on list. Assessment: Status post excision of an infected wound on the right buttock. Recommendation: ID follow up for antibiotic adjustment. Wound care is ordered. Discharge planning and plan of care discussed with Dr. Angeles. ALEJANDRA/NAYAN Voice ID: [id number] Report ID: [id number]
--- NOTE | 2020-12-27 18:57 | P.PN ---
Subjective Date of Service: 12/27/20 Chief Complaint: AMS, UTI No changes from yesterday. Physical Examination - Vital Signs Temperature: 96.8 F Blood Pressure: 117/81 Pulse: 105 Respirations: 20 Pulse Ox (%): 96 - Physical Exam General: In no apparent distress, Confused HEENT: Mucous membr. moist/pink Neck: JVD not distended Respiratory: Clear to auscultation bilaterally, Normal air movement Cardiovascular: No edema, Regular rate/rhythm Gastrointestinal: Soft and benign, Non-distended Integumentary: Other (Stage IV sacral decubitus ulcers) Assessment And Plan - Current Problems (Diagnosis) (1) Metabolic encephalopathy Current Visit: Yes Status: Acute (2) AMS (altered mental status) Current Visit: Yes Status: Acute Qualifiers: Altered mental status type: unspecified Qualified Code(s): R41.82 - Altered mental status, unspecified (3) UTI (urinary tract infection) Current Visit: No Status: Acute Qualifiers: Urinary tract infection type: site unspecified Hematuria presence: with hematuria Qualified Code(s): N39.0 - Urinary tract infection, site not specified; R31.9 - Hematuria, unspecified (4) Acute renal failure Current Visit: Yes Status: Acute (5) Alzheimer's dementia Onset Date: 03/08/18 Current Visit: No Status: Chronic (6) Chronic a-fib Current Visit: No Status: Chronic (7) Dysphagia Current Visit: Yes Status: Acute Physician Review Additional Text: Assessment And Plan Acute metabolic encephalopathy / AMS, improved hypernatremia,. Acute renal failure Alzheimer's dementia Chronic atrial fibrillation Dysphagia Unstageable R buttocks pressure wound laceration of urethral meatus hyperammonemia -AMS likely secondary to infection/hypernatremia, mentation improved, seems to be near/ at baseline -spoke with nurse at [facility] who has taken care of patient intermittently for last 2 months: -patient's baseline is "very confused", he is alert and occasionally remembers things. typically oriented x1, but has better moments -over the last 2 months he has been declining slowly, and over the last ~3 weeks he has been more somnolent at times -typically able to feed himself without issue -reports they treated him for high ammonia levels ~2-3 weeks ago -nephrology consulted, for assistance with hypernatremia. Patient has intermittent hypernatremia -treat hypernatremia with D5 water. Monitor BMP. -was on levaquin for UTI initially, urine culture no growth; but CRP continues to increase, likely from R buttocks pressure ulcer, worsening -antibiotics changed to Cefepime and Vancomycin - merrem lower stress showed for seizures. -wound culture is growing ohara resistant Acinetobacter, and Proteus. -ID is following. -CT pelvis was obtained - no definitive evidence of osteomyelitis -status post sacral decubitus wound debridement by dr. Mckeon -blood cultures: No growth. -CXR negative for aspiration, CT Abd/pelvis done on 12/22 to r/o any other cause of elevated CRP- rather unremarkable -[facility] soft diet and thin liquids per speech therapist -hankins dc'd for voiding trial, was reportedly placed at [facility] for retention ~1month prior, hankins replaced due to retention -briefly reviewed urethral meatus laceration with urology, clean soap/water BID, bacitracin BID, f/u urology as outpatient. -patient deemed appropriate for LTAC. -I spoke patient relative (1st cousin-Yari Hernandez, discussed plan of care in the need for transfer to LTAC. Social service seem to follow up to obtain consent for LTAC placement.
[2020-12-27] MEDS: VANCOMYCIN 1.5 GM in NA CHLORIDE 0.9% 500 ML IVPB SCH (21:57)
[2020-12-27] MEDS: DONEPEZIL HCL 5 MG TAB PO SCH (22:02)
[2020-12-28] MEDS: D5W 1,000 ML IV SCH ×2 (00:20→13:54)
[2020-12-28] MEDS: CEFEPIME/SWI 2gm 2 GM/20 ML SYR IV SCH ×3 (01:00→16:56)
[2020-12-28 04:25] LABS: Basophils % 2.3 % (0-1.3); Hematocrit 37.3 % (39.6-49.0); Lymphocytes % 13.4 % (15.3-44.8); MPV 8.2 fL (7.6-11.3); RBC Red Blood Cell Count 3.62 M/uL (4.33-5.43)
[2020-12-28 04:39] LABS: ALT/SGPT 16 U/L (12-78); AST/SGOT 33 U/L (15-37); Albumin 1.5 g/dL (3.4-5.0); Alkaline Phosphatase 42 U/L (45-117); BUN Blood Urea Nitrogen 25 mg/dL (7-18); Bicarbonate 29 mmol/L (21-32); Bilirubin Total 0.3 mg/dL (0.2-1.0); Glucose Level 107 mg/dL (74-106); Potassium 4.2 mmol/L (3.5-5.1); Protein, Total 5.7 g/dL (6.4-8.2); Sodium Level 150 mmol/L (136-145)
[2020-12-28] MEDS: LEVOTHYROXINE SOD 0.075 MG TAB PO SCH (06:00)
[2020-12-28] MEDS: INSULIN -REGULAR HUMAN 50 UNIT/0.5 ML ML SQ SCH ×4 (07:30→21:00)
[2020-12-28] MEDS: JUVEN PACKET PO SCH ×2 (09:00→21:00)
[2020-12-28] MEDS: ENSURE HIGH PROTEIN 237 ML CAN PO SCH ×2 (09:00→21:39)
[2020-12-28] MEDS: CALCIUM CARB 500MG/VIT D 200 IU TAB PO SCH (09:00)
[2020-12-28] MEDS: FLUOXETINE 20 MG CAP PO SCH (09:45)
[2020-12-28] MEDS: POLYETHYL GLY 3350 17 GM/DOSE PO SCH (09:45)
[2020-12-28] MEDS: POTASS/SODIUM PHOSPHATE 1 PKT POWD.PACK PO SCH ×4 (09:45→21:38)
[2020-12-28] MEDS: GABAPENTIN 100 MG CAP PO SCH ×3 (09:47→21:37)
[2020-12-28] MEDS: METOPROLOL TAR 25 MG TAB PO SCH ×2 (09:47→21:39)
[2020-12-28] MEDS: APIXABAN 2.5 MG TABLET PO SCH ×2 (09:48→21:38)
[2020-12-28] MEDS: PHENYTOIN ER 100 MG CAP PO SCH ×2 (09:48→21:40)
[2020-12-28] MEDS: PANTOPRAZOLE 40MG TABLET PO SCH (09:48)
[2020-12-28] MEDS: DIVALPROEX ER 250 MG TAB PO SCH (09:49)
[2020-12-28] MEDS: BACITRACIN OINTMENT 15 GM TUBE TOP SCH ×2 (12:58→21:00)
--- NOTE | 2020-12-28 14:26 | P.PN ---
Subjective Date of Service: 12/28/20 Chief Complaint: AMS, UTI Patient is more interactive today. No issues overnight. Chronically tachycardic. Physical Examination - Vital Signs Temperature: 97.0 F Blood Pressure: 93/62 Pulse: 98 Respirations: 18 Pulse Ox (%): 96 - Physical Exam General: Confused, Other (Awake) HEENT: Mucous membr. moist/pink Neck: JVD not distended Respiratory: Clear to auscultation bilaterally, Normal air movement Cardiovascular: No edema, Normal S1 S2, Other (Tachycardia) Gastrointestinal: Normal bowel sounds, Soft and benign, Non-distended, No tenderness Musculoskeletal: No erythema Integumentary: Other (Sacral decubitus ulcers-stage IV) Assessment And Plan - Current Problems (Diagnosis) (1) Metabolic encephalopathy Current Visit: Yes Status: Acute (2) AMS (altered mental status) Current Visit: Yes Status: Acute Qualifiers: Altered mental status type: unspecified Qualified Code(s): R41.82 - Altered mental status, unspecified (3) UTI (urinary tract infection) Current Visit: No Status: Acute Qualifiers: Urinary tract infection type: site unspecified Hematuria presence: with hematuria Qualified Code(s): N39.0 - Urinary tract infection, site not specified; R31.9 - Hematuria, unspecified (4) Acute renal failure Current Visit: Yes Status: Acute (5) Alzheimer's dementia Onset Date: 03/08/18 Current Visit: No Status: Chronic (6) Chronic a-fib Current Visit: No Status: Chronic (7) Dysphagia Current Visit: Yes Status: Acute Physician Review Additional Text: Assessment And Plan Acute metabolic encephalopathy / AMS, improved hypernatremia,. Acute renal failure Alzheimer's dementia Chronic atrial fibrillation Dysphagia Unstageable R buttocks pressure wound laceration of urethral meatus hyperammonemia -AMS likely secondary to infection/hypernatremia, mentation improved, seems to be near/ at baseline -patient is confused at baseline. -nephrology consulted, for assistance with hypernatremia. Patient has intermittent hypernatremia -continue IV D5W. Monitor BMP. -was on levaquin for UTI initially, urine culture no growth; but CRP continues to increase, likely from R buttocks pressure ulcer, worsening -antibiotics changed to Cefepime and Vancomycin - merrem lower stress showed for seizures. -wound culture is growing ohara resistant Acinetobacter, and Proteus. -ID is following. -patient currently on cefepime and vancomycin -CT pelvis was obtained - no definitive evidence of osteomyelitis -status post sacral decubitus wound debridement by dr. Mckeon -blood cultures: No growth. -CXR negative for aspiration, CT Abd/pelvis done on 12/22 to r/o any other cause of elevated CRP- rather unremarkable -[facility] soft diet and thin liquids per speech therapist. Feeding with assistance as tolerated. -hankins dc'd for voiding trial, was reportedly placed at [place] for retention ~1month prior, hankins replaced due to retention -briefly reviewed urethral meatus laceration with urology, clean soap/water BID, bacitracin BID, f/u urology as outpatient. -patient deemed appropriate for LTAC. -I spoke patient relative (1st cousin-Yari Hernandez, discussed plan of care in the need for transfer to LTAC. Social service to follow up to obtain consent for LTAC placement.
[2020-12-28] MEDS: DONEPEZIL HCL 5 MG TAB PO SCH (21:40)
[2020-12-29] MEDS: CEFEPIME/SWI 2gm 2 GM/20 ML SYR IV SCH ×3 (01:00→16:23)
[2020-12-29] MEDS: D5W 1,000 ML IV SCH ×2 (03:00→16:21)
[2020-12-29 04:00] LABS: Absolute Lymphocytes (CBC) 1.3 K/uL (0.7-4.9); Basophils % 0.8 % (0-1.3); Hematocrit 38.8 % (39.6-49.0); MPV 7.8 fL (7.6-11.3); RBC Red Blood Cell Count 3.75 M/uL (4.33-5.43)
[2020-12-29 04:21] LABS: BUN Blood Urea Nitrogen 24 mg/dL (7-18); Bicarbonate 29 mmol/L (21-32); Glucose Level 104 mg/dL (74-106); Phosphorus 2.6 mg/dL (2.5-4.9); Sodium Level 146 mmol/L (136-145)
[2020-12-29] MEDS: LEVOTHYROXINE SOD 0.075 MG TAB PO SCH (06:00)
[2020-12-29] MEDS: INSULIN -REGULAR HUMAN 50 UNIT/0.5 ML ML SQ SCH ×4 (07:30→20:52)
[2020-12-29] MEDS: ENSURE HIGH PROTEIN 237 ML CAN PO SCH ×3 (09:00→21:00)
[2020-12-29] MEDS: JUVEN PACKET PO SCH ×2 (09:00→21:00)
[2020-12-29] MEDS: BACITRACIN OINTMENT 15 GM TUBE TOP SCH ×2 (09:00→20:52)
[2020-12-29] MEDS: CALCIUM CARB 500MG/VIT D 200 IU TAB PO SCH (09:00)
[2020-12-29] MEDS: POTASS/SODIUM PHOSPHATE 1 PKT POWD.PACK PO SCH ×4 (09:25→20:51)
[2020-12-29] MEDS: DIVALPROEX ER 250 MG TAB PO SCH ×2 (09:25→20:51)
[2020-12-29] MEDS: FLUOXETINE 20 MG CAP PO SCH (09:25)
[2020-12-29] MEDS: PANTOPRAZOLE 40MG TABLET PO SCH (09:26)
[2020-12-29] MEDS: METOPROLOL TAR 25 MG TAB PO SCH ×2 (09:26→20:52)
[2020-12-29] MEDS: APIXABAN 2.5 MG TABLET PO SCH ×2 (09:26→20:51)
[2020-12-29] MEDS: POLYETHYL GLY 3350 17 GM/DOSE PO SCH (09:26)
[2020-12-29] MEDS: PHENYTOIN ER 100 MG CAP PO SCH ×2 (09:26→20:51)
[2020-12-29] MEDS: GABAPENTIN 100 MG CAP PO SCH ×3 (09:26→20:51)
[2020-12-29] MEDS: VANCOMYCIN 1.5 GM in NA CHLORIDE 0.9% 500 ML IVPB SCH (09:30)
[2020-12-29] MEDS: HYDROMORPHONE HCL 1 MG/ML INJ IV PRN (10:41)
--- NOTE | 2020-12-29 12:08 | P.PN ---
Subjective Date of Service: 12/29/20 Chief Complaint: AMS, UTI Patient yelling this morning and appeared to be in pain. Physical Examination - Vital Signs Temperature: 97.7 F Blood Pressure: 118/65 Pulse: 115 Respirations: 18 Pulse Ox (%): 94 - Physical Exam General: Confused, Other (Awake) Neck: JVD not distended Respiratory: Clear to auscultation bilaterally, Normal air movement Cardiovascular: No edema, Normal S1 S2, Other (Tachycardia.) Gastrointestinal: Normal bowel sounds, Soft and benign, Non-distended, No tenderness Integumentary: Other (Stage IV sacral decubitus ulcers.) Assessment And Plan - Current Problems (Diagnosis) (1) Metabolic encephalopathy Current Visit: Yes Status: Acute (2) AMS (altered mental status) Current Visit: Yes Status: Acute Qualifiers: Altered mental status type: unspecified Qualified Code(s): R41.82 - Altered mental status, unspecified (3) UTI (urinary tract infection) Current Visit: No Status: Acute Qualifiers: Urinary tract infection type: site unspecified Hematuria presence: with hematuria Qualified Code(s): N39.0 - Urinary tract infection, site not specified; R31.9 - Hematuria, unspecified (4) Acute renal failure Current Visit: Yes Status: Acute (5) Alzheimer's dementia Onset Date: 03/08/18 Current Visit: No Status: Chronic (6) Chronic a-fib Current Visit: No Status: Chronic (7) Dysphagia Current Visit: Yes Status: Acute Physician Review Additional Text: Assessment And Plan Acute metabolic encephalopathy / AMS, improved hypernatremia,. Acute renal failure Alzheimer's dementia Chronic atrial fibrillation Dysphagia Unstageable R buttocks pressure wound laceration of urethral meatus hyperammonemia -patient at baseline mental status. He is confused at baseline. -nephrology consulted, for assistance with hypernatremia. Patient has intermittent hypernatremia. Sodium level is better today. -continue IV D5W. Monitor BMP. -was on levaquin for UTI initially, urine culture no growth; but CRP continues to increase, likely from R buttocks pressure ulcer, worsening -wound culture is growing ohara resistant Acinetobacter, and Proteus. -ID is following. -patient currently on cefepime and vancomycin -CT pelvis was obtained - no definitive evidence of osteomyelitis -status post sacral decubitus wound debridement by Dr. Linda -blood cultures: No growth. -CXR negative for aspiration, CT Abd/pelvis done on 12/22 to r/o any other cause of elevated CRP- rather un[facility] Feed with assistance as tolerated. -hankins dc'd for voiding trial, was reportedly placed at [facility] for retention ~1month prior, hankins replaced due to retention -urethral meatus laceration. Urology recommend clean soap/water BID, bacitracin BID, f/u urology as outpatient. -patient deemed appropriate for LTAC. -I spoke patient relative (1st cousin-Yari Hernandez, discussed plan of care in the need for transfer to LTAC. Social service to follow up to obtain consent for LTAC placement.
[2020-12-29] MEDS: DONEPEZIL HCL 5 MG TAB PO SCH (20:55)
[2020-12-30] MEDS: LEVOTHYROXINE SOD 0.075 MG TAB PO SCH (05:15)
[2020-12-30] MEDS: INSULIN -REGULAR HUMAN 50 UNIT/0.5 ML ML SQ SCH ×4 (07:30→21:00)
[2020-12-30] MEDS: PHENYTOIN ER 100 MG CAP PO SCH ×2 (08:33→21:44)
[2020-12-30] MEDS: PANTOPRAZOLE 40MG TABLET PO SCH (08:34)
[2020-12-30] MEDS: DIVALPROEX ER 250 MG TAB PO SCH ×2 (08:34→21:45)
[2020-12-30] MEDS: FLUOXETINE 20 MG CAP PO SCH (08:34)
[2020-12-30] MEDS: GABAPENTIN 100 MG CAP PO SCH ×3 (08:34→21:46)
[2020-12-30] MEDS: METOPROLOL TAR 25 MG TAB PO SCH ×2 (08:35→21:00)
[2020-12-30] MEDS: POLYETHYL GLY 3350 17 GM/DOSE PO SCH (08:35)
[2020-12-30] MEDS: BACITRACIN OINTMENT 15 GM TUBE TOP SCH ×2 (08:35→21:00)
[2020-12-30] MEDS: APIXABAN 2.5 MG TABLET PO SCH ×2 (08:35→21:44)
[2020-12-30] MEDS: ENSURE HIGH PROTEIN 237 ML CAN PO SCH ×3 (08:36→21:00)
[2020-12-30] MEDS: HYDROMORPHONE HCL 1 MG/ML INJ IV PRN ×2 (08:36→17:23)
[2020-12-30] MEDS: CALCIUM CARB 500MG/VIT D 200 IU TAB PO SCH (08:36)
[2020-12-30] MEDS: POTASS/SODIUM PHOSPHATE 1 PKT POWD.PACK PO SCH ×4 (08:36→21:44)
[2020-12-30] MEDS: JUVEN PACKET PO SCH ×2 (08:36→21:00)
--- NOTE | 2020-12-30 10:11 | P.PN ---
Subjective Date of Service: 12/30/20 Chief Complaint: AMS, UTI Patient seen examined in bed, wound VAC placed today. Review of Systems 10-point ROS is otherwise unremarkable Physical Examination - Vital Signs Temperature: 97.4 F Blood Pressure: 107/57 Pulse: 84 Respirations: 20 Pulse Ox (%): 99 - Studies Temp Pulse Resp BP Pulse Ox 97.4 F 84 20 107/57 L 99 12/30/20 08:00 12/30/20 08:00 12/30/20 08:36 12/30/20 08:00 12/30/20 08:36 Laboratory Last Values WBC 13.00 K/uL (4.3-10.9) H 12/15/20 01:40 RBC 5.00 M/uL (4.33-5.43) 12/15/20 01:40 Hgb 16.9 g/dL (13.6-17.9) 12/15/20 01:40 Hct 51.3 % (39.6-49.0) H 12/15/20 01:40 MCV 102.6 fL (80-100) H 12/15/20 01:40 MCH 33.8 pg (27.0-35.0) 12/15/20 01:40 MCHC 32.9 g/dL (32.0-36.0) 12/15/20 01:40 RDW 14.9 % (12.1-15.2) 12/15/20 01:40 Plt Count 242 K/uL (152-406) 12/15/20 01:40 MPV 9.4 fL (7.6-11.3) 12/15/20 01:40 Neutrophils % 80.6 % (41.7-73.7) H 12/15/20 01:40 Lymphocytes % 9.2 % (15.3-44.8) L 12/15/20 01:40 Monocytes % 9.5 % (3.3-12.3) 12/15/20 01:40 Eosinophils % 0.0 % (0-4.4) 12/15/20 01:40 Basophils % 0.7 % (0-1.3) 12/15/20 01:40 Absolute Neutrophils 10.5 K/uL (1.8-8.0) H 12/15/20 01:40 Absolute Lymphocytes 1.2 K/uL (0.7-4.9) 12/15/20 01:40 Absolute Monocytes 1.2 K/uL (0.1-1.3) 12/15/20 01:40 Absolute Eosinophils 0.0 K/uL (0-0.5) 12/15/20 01:40 Absolute Basophils 0.1 K/uL (0-0.5) 12/15/20 01:40 PT 15.1 SECONDS (9.5-12.5) H 12/15/20 01:40 INR 1.31 12/15/20 01:40 APTT 27.3 SECONDS (24.3-36.9) 12/15/20 01:40 Sodium 150 mmol/L (136-145) H 12/15/20 01:10 Potassium 3.5 mmol/L (3.5-5.1) 12/15/20 01:10 Chloride 111 mmol/L (98-107) H 12/15/20 01:10 Carbon Dioxide 29 mmol/L (21-32) 12/15/20 01:10 BUN 52 mg/dL (7-18) H 12/15/20 01:10 Creatinine 1.97 mg/dL (0.55-1.3) H 12/15/20 01:10 Estimated GFR 33 mL/min (=/>90) L 12/15/20 01:10 Glucose 119 mg/dL (74-106) H 12/15/20 01:10 POC Glucose 128 mg/dL (65-120) H 12/15/20 01:11 Lactic Acid 1.4 mmol/L (0.4-2.0) 12/15/20 01:05 Calcium 8.6 mg/dL (8.5-10.1) 12/15/20 01:10 Total Bilirubin 0.5 mg/dL (0.2-1.0) 12/15/20 01:10 Direct Bilirubin 0.2 mg/dL (0-0.2) 12/15/20 01:10 AST 21 U/L (15-37) 12/15/20 01:10 ALT 11 U/L (12-78) L 12/15/20 01:10 Alkaline Phosphatase 68 U/L (45-117) 12/15/20 01:10 Ammonia 14 umol/L (19-54) L 12/15/20 01:05 Creatine Kinase 326 U/L (39-308) H 12/15/20 01:10 CK-MB (CK-2) < 1.0 ng/mL (0.3-3.6) 12/15/20 01:10 Rapid Troponin I 0.10 ng/mL (0.0-0.045) H 12/15/20 01:10 NT-Pro-B Natriuret Pep 2605 pg/mL (<450) H 12/15/20 01:10 Serum Total Protein 7.7 g/dL (6.4-8.2) 12/15/20 01:10 Albumin 2.7 g/dL (3.4-5.0) L 12/15/20 01:10 Globulin 5.0 g/dL (2.3-3.5) H 12/15/20 01:10 Albumin/Globulin Ratio 0.5 (1.1-1.8) L 12/15/20 01:10 Amylase 59 U/L (25-115) 12/15/20 01:10 Lipase 138 U/L (73-393) 12/15/20 01:10 Urine pH 5.0 (5.0-7.0) 12/15/20 01:46 Ur Specific [place] 1.020 (1.005-1.030) 12/15/20 01:46 Glucose (UA)(Auto) Negative (Negative) 12/15/20 01:46 Urine Ketones 1+ (Negative) H 12/15/20 01:46 Urine Blood 1+ (Negative) H 12/15/20 01:46 Urine Nitrite Negative (Negative) 12/15/20 01:46 Ur Leukocyte Esterase Negative (Negative) 12/15/20 01:46 Urine RBC 5-10 /HPF (NONE SEEN) H 12/15/20 01:44 Urine WBC 5-10 /HPF (<5) H 12/15/20 01:44 Ur Squamous Epith Cells <5 /HPF (NONE SEEN) 12/15/20 01:44 Urine Bacteria 20-50 /HPF (NONE SEEN) H 12/15/20 01:44 Hyaline Casts 5-10 /LPF (NONE SEEN) 12/15/20 01:44 Urine Mucus 2+ /HPF (NONE SEEN) 12/15/20 01:44 Urine Culture Reflexed Reflexed 12/15/20 01:44 Urine Total Protein 1+ (Negative) H 12/15/20 01:46 Salicylates 4.1 mg/dL (2.8-20) 12/15/20 01:40 Opiates Screen Negative (NEGATIVE) 12/15/20 01:44 Methadone Screen Negative (NEGATIVE) 12/15/20 01:44 Acetaminophen < 2.0 ug/mL (10.0-30.0) L 12/15/20 01:10 Ur Barbiturates Screen Negative (NEGATIVE) 12/15/20 01:44 Phenytoin 21.5 ug/mL (10.0-20.0) H 12/15/20 01:10 Valproic Acid 16.0 ug/mL (50-100) L 12/15/20 01:10 Ur Phencyclidine Scrn Negative (NEGATIVE) 12/15/20 01:44 Amphetamines Screen Negative (NEGATIVE) 12/15/20 01:44 Benzodiazepines Screen Negative (NEGATIVE) 12/15/20 01:44 Cocaine Screen Negative (NEGATIVE) 12/15/20 01:44 Ur THC Screen Negative (NEGATIVE) 12/15/20 01:44 Plasma/Serum Alcohol < 10 mg/dL (<10) 12/15/20 01:10 SARS-CoV-2 RNA (RT-PCR) Negative (NEGATIVE) 12/15/20 03:15 Assessment And Plan - Plan General: In no apparent distress HEENT: Atraumatic, Normocephalic Neck: Supple Respiratory: Clear to auscultation bilaterally, Normal air movement Cardiovascular: No edema, Normal pulses Capillary refill: <2 Seconds Gastrointestinal: Normal bowel sounds Musculoskeletal: No clubbing, No swelling Integumentary: Pressure ulcer (Sacral unstageable ulcer.) antibiotics: current: polymixin B start: 12/30 stop:-- merum start: 12/30 stop: -- DC: vancomycin start: 12/23 stop:12/30 cefepime: start: 12/23 stop: 12/30 Assessment: -altered mental status on admission -urinary tract infection. -sacral decubitus ulcer unstageable Plan: -patient back at baseline on mental status. -urine culture negative. -Surgical debridement of sacral wound performed on 12/25. Wound VAC placed on the 12/30. Wound cultures completed on 12/22 grew: Gram-negative rods, Proteus mirabilis, Acinetobacter Wound cultures taken on 12/26 grew protease mirabilis ESBL. Patient was initially started on meropenem however due to history of seizures he was taken off the medication. Recommend patient be started on IV polymyxin B to cover pain resistant Acinetobacter as well as meropenem to cover the Proteus m ESBL. Need to closely monitor the patient has meropenem can decrease the threshold for seizures. Consider increasing an anti seizure medication for duration of meropenem therapy. Dc vancomycin [place] at this time and continue to monitor very closely. Continue monitor renal function, obtain BMP daily. -medical management per primary team -continue monitor CBC and BMP -continue monitor signs infection Plan of care discussed with Dr. Patel. Thank you for consultation.
[2020-12-30] MEDS ORDERED: POLYMYXIN B SULFATE 500,000 UNIT VIAL IV SCH (11:00)
[2020-12-30] MEDS: CEFEPIME/SWI 1gm 10 ML IV SCH ×2 (11:49→21:41)
[2020-12-30] MEDS: D5W 1,000 ML IV SCH ×2 (11:49→21:56)
--- NOTE | 2020-12-30 14:40 | P.PN ---
Subjective Date of Service: 12/30/20 Chief Complaint: AMS, UTI Patient seen sleeping. No issues overnight. No fever. Physical Examination - Vital Signs Temperature: 97.5 F Blood Pressure: 98/57 Pulse: 81 Respirations: 18 Pulse Ox (%): 93 - Physical Exam General: Confused HEENT: Mucous membr. moist/pink Neck: JVD not distended Respiratory: Clear to auscultation bilaterally, Normal air movement Cardiovascular: Regular rate/rhythm, Normal S1 S2 Gastrointestinal: Soft and benign, Non-distended, No tenderness Musculoskeletal: No contractures Integumentary: Other (Stage IV sacral decubitus ulcers) Neurological: Other (He moves upper extremities spontaneously. He obey commands only intermittently.) Assessment And Plan - Current Problems (Diagnosis) (1) Metabolic encephalopathy Current Visit: Yes Status: Acute (2) AMS (altered mental status) Current Visit: Yes Status: Acute Qualifiers: Altered mental status type: unspecified Qualified Code(s): R41.82 - Altered mental status, unspecified (3) UTI (urinary tract infection) Current Visit: No Status: Acute Qualifiers: Urinary tract infection type: site unspecified Hematuria presence: with hematuria Qualified Code(s): N39.0 - Urinary tract infection, site not specified; R31.9 - Hematuria, unspecified (4) Acute renal failure Current Visit: Yes Status: Acute (5) Alzheimer's dementia Onset Date: 03/08/18 Current Visit: No Status: Chronic (6) Chronic a-fib Current Visit: No Status: Chronic (7) Dysphagia Current Visit: Yes Status: Acute Physician Review Additional Text: Assessment And Plan Acute metabolic encephalopathy / AMS, improved hypernatremia,. Acute renal failure Alzheimer's dementia Chronic atrial fibrillation Dysphagia Unstageable R buttocks pressure wound laceration of urethral meatus hyperammonemia -patient is confused at baseline. -nephrology consulted, for assistance with hypernatremia. Patient has intermittent hypernatremia. Sodium level is improving. -continue IV D5W. Monitor BMP. -was on levaquin for UTI initially, urine culture no growth; but CRP continues to increase, likely from R buttocks pressure ulcer, worsening -wound culture is growing ohara resistant Acinetobacter, and Proteus. -ID is following. ID recommended cefepime and polymixin. Meropenem considered not an option due to his history of seizures. -CT pelvis was obtained - no definitive evidence of osteomyelitis -status post sacral decubitus wound debridement by Dr. Mckeon. Wound VAC applied. -blood cultures: No growth. -CXR negative for aspiration, CT Abd/pelvis done on 12/22 to r/o any other cause of elevated CRP- rather unremarkable -[facility] soft diet and thin liquids per speech therapist. Feed with assistance as tolerated. -hankins dc'd for voiding trial, was reportedly placed at [place] for retention ~1month prior, hankins replaced due to retention -urethral meatus laceration. Urology recommend clean soap/water BID, bacitracin BID, f/u urology as outpatient. -patient deemed appropriate for LTAC. -social service assisting with placement.
[2020-12-30] MEDS ORDERED: CEFEPIME 1 GM/VIAL IV SCH (21:00)
[2020-12-30] MEDS: DONEPEZIL HCL 5 MG TAB PO SCH (21:55)
[2020-12-31] MEDS: HYDROMORPHONE HCL 1 MG/ML INJ IV PRN ×2 (00:30→12:05)
[2020-12-31 04:22] LABS: Absolute Lymphocytes (CBC) 1.3 K/uL (0.7-4.9); Basophils % 0.4 % (0-1.3); Hematocrit 34.7 % (39.6-49.0); Lymphocytes % 13.8 % (15.3-44.8); MPV 8.1 fL (7.6-11.3); RBC Red Blood Cell Count 3.43 M/uL (4.33-5.43)
[2020-12-31 04:36] LABS: ALT/SGPT 13 U/L (12-78); AST/SGOT 17 U/L (15-37); Albumin 1.5 g/dL (3.4-5.0); Alkaline Phosphatase 54 U/L (45-117); BUN Blood Urea Nitrogen 18 mg/dL (7-18); Bicarbonate 29 mmol/L (21-32); Bilirubin Total 0.3 mg/dL (0.2-1.0); Glucose Level 104 mg/dL (74-106); Potassium 4.5 mmol/L (3.5-5.1); Protein, Total 5.6 g/dL (6.4-8.2); Sodium Level 142 mmol/L (136-145)
[2020-12-31] MEDS: LEVOTHYROXINE SOD 0.075 MG TAB PO SCH (05:19)
[2020-12-31] MEDS: INSULIN -REGULAR HUMAN 50 UNIT/0.5 ML ML SQ SCH ×2 (07:30→11:30)
[2020-12-31] MEDS: CALCIUM CARB 500MG/VIT D 200 IU TAB PO SCH (09:00)
[2020-12-31] MEDS: METOPROLOL TAR 25 MG TAB PO SCH (09:00)
[2020-12-31] MEDS: BACITRACIN OINTMENT 15 GM TUBE TOP SCH (09:00)
[2020-12-31] MEDS: POLYETHYL GLY 3350 17 GM/DOSE PO SCH (09:03)
[2020-12-31] MEDS: POTASS/SODIUM PHOSPHATE 1 PKT POWD.PACK PO SCH ×2 (09:03→13:00)
[2020-12-31] MEDS: DIVALPROEX ER 250 MG TAB PO SCH (09:03)
[2020-12-31] MEDS: PHENYTOIN ER 100 MG CAP PO SCH (09:04)
[2020-12-31] MEDS: FLUOXETINE 20 MG CAP PO SCH (09:05)
[2020-12-31] MEDS: PANTOPRAZOLE 40MG TABLET PO SCH (09:05)
[2020-12-31] MEDS: GABAPENTIN 100 MG CAP PO SCH ×2 (09:05→13:48)
[2020-12-31] MEDS: APIXABAN 2.5 MG TABLET PO SCH (09:05)
[2020-12-31] MEDS: JUVEN PACKET PO SCH (09:06)
[2020-12-31] MEDS: CEFEPIME/SWI 1gm 10 ML IV SCH (09:06)
[2020-12-31] MEDS: ENSURE HIGH PROTEIN 237 ML CAN PO SCH ×2 (09:06→13:47)
--- NOTE | 2020-12-31 10:13 | P.PN ---
Subjective Date of Service: 12/31/20 Chief Complaint: AMS, UTI Patient seen examined in bed, no acute events her past pain for hr. Still waiting placement LTAC. They had to wound VAC at 129mmHg intermittent pressure. Review of Systems 10-point ROS is otherwise unremarkable Physical Examination - Vital Signs Temperature: 97.1 F Blood Pressure: 109/75 Pulse: 107 Respirations: 18 Pulse Ox (%): 95 - Studies Temp Pulse Resp BP Pulse Ox 97.1 F 107 H 18 109/75 95 12/31/20 08:00 12/31/20 09:00 12/31/20 08:00 12/31/20 09:00 12/31/20 08:00 Active Medications Acetaminophen (Acetaminophen 500 Mg Tab) 500 mg PO Q4HP PRN PRN Reason: Pain scale 2-4 (Mild) Last Admin: 12/24/20 20:06 Dose: 500 mg Documented by: Apixaban (Apixaban 2.5 Mg Tablet) 2.5 mg PO BID [facility] Last Admin: 12/31/20 09:05 Dose: 2.5 mg Documented by: Bacitracin (Bacitracin Ointment 15 Gm Tube) 1 appl TOP BID [facility] Last Admin: 12/30/20 21:00 Dose: 1 appl Documented by: Calcium Carbonate (Calcium Carb 500mg/Vit D 200 Iu Tab) 1 tab PO DAILY [facility] Last Admin: 12/31/20 09:00 Dose: 1 tab Documented by: Divalproex Sodium (Divalproex Er 250 Mg Tab) 250 mg PO DAILY [facility] Last Admin: 12/31/20 09:03 Dose: 250 mg Documented by: Divalproex Sodium (Divalproex Er 250 Mg Tab) 1,000 mg PO BEDTIME [facility] Last Admin: 12/30/20 21:45 Dose: 1,000 mg Documented by: Donepezil HCl (Donepezil Hcl 5 Mg Tab) 10 mg PO BEDTIME [facility] Last Admin: 12/30/20 21:55 Dose: 10 mg Documented by: Fluoxetine HCl (Fluoxetine 20 Mg Cap) 40 mg PO DAILY [facility] Last Admin: 12/31/20 09:05 Dose: 40 mg Documented by: Gabapentin (Gabapentin 100 Mg Cap) 100 mg PO TID [facility] Last Admin: 12/31/20 09:05 Dose: 100 mg Documented by: Hydromorphone HCl (Hydromorphone Hcl 1 Mg/Ml Inj) 1 mg IV Q6H PRN PRN Reason: Pain scale 5-7 (Moderate) Last Admin: 12/31/20 00:30 Dose: 1 mg Documented by: Dextrose/Water (Dextrose In Water (1-Liter)) 1,000 mls @ 75 mls/hr IV .[id number] [facility] Last Admin: 12/30/20 21:56 Dose: 1,000 mls Documented by: Cefepime HCl (Maxipime 1 Gm/10 Ml Ivp) 10 mls @ 200 mls/min IV Q12HR [facility] Last Admin: 12/31/20 09:06 Dose: 10 mls Documented by: Polymyxin B Sulfate 500,000 (unit/ Dextrose) 500 mls @ 333.333 mls/hr IV Q12HR [facility] Insulin Human Regular (Insulin -Regular Human 50 Unit/0.5 Ml Ml) 0 unit SQ ACHS [facility]; Protocol Last Admin: 12/31/20 07:30 Dose: Not Given Documented by: L-Arginine/L-Glutamine/HMB (Gee Packet) 1 pkt PO BID [facility] Last Admin: 12/31/20 09:06 Dose: 1 pkt Documented by: Levothyroxine Sodium (Levothyroxine Sod 0.075 Mg Tab) 0.15 mg PO [id number] [facility] Last Admin: 12/31/20 05:19 Dose: 0.15 mg Documented by: Metoprolol Tartrate (Metoprolol Tar 25 Mg Tab) 25 mg PO BID [facility] Last Admin: 12/31/20 09:00 Dose: Not Given Documented by: Nutritional Formula (Ensure High Protein 237 Ml Can) 237 ml PO TID [facility] Last Admin: 12/31/20 09:06 Dose: 237 ml Documented by: Ondansetron HCl (Ondansetron 4 Mg/2 Ml Vial) 4 mg IV Q6HP PRN PRN Reason: NAUSEA / VOMITING Last Admin: 12/21/20 20:02 Dose: 4 mg Documented by: Pantoprazole Sodium (Pantoprazole 40mg Tablet) 20 mg PO DAILY [facility] Last Admin: 12/31/20 09:05 Dose: 20 mg Documented by: Phenytoin Sodium (Phenytoin Er 100 Mg Cap) 200 mg PO BID [facility] Last Admin: 12/31/20 09:04 Dose: 200 mg Documented by: Polyethylene Glycol (Polyethyl Gly 3350 17 Gm/Dose) 17 gm PO DAILY [facility] Last Admin: 12/31/20 09:03 Dose: 17 gm Documented by: Potassium Phos/Sodium Phos (Potass/Sodium Phosphate 1 Pkt Powd.Pack) 1 pkt PO QID [facility] Last Admin: 12/31/20 09:03 Dose: 1 pkt Documented by: Sodium Chloride (Flush Normal Saline 10 Ml) 10 ml IV BID [facility] Last Admin: 12/31/20 09:07 Dose: 10 ml Documented by: Assessment And Plan - Plan General: In no apparent distress HEENT: Atraumatic, Normocephalic Neck: Supple Respiratory: Clear to auscultation bilaterally, Normal air movement Cardiovascular: No edema, Normal pulses Capillary refill: <2 Seconds Gastrointestinal: Normal bowel sounds Musculoskeletal: No clubbing, No swelling Integumentary: Pressure ulcer (Sacral unstageable ulcer.) antibiotics: current: polymixin B start: 12/31 stop:-- cefepime start: 12/23 stop:-- DC: vancomycin start: 12/23 stop:12/30 IV levaquin start: 12/15 stop: 12/19 ORAL levaquin start: 12/21 stop: 12/24 Assessment: -altered mental status on admission -urinary tract infection. -sacral decubitus ulcer unstageable Plan: -patient back at baseline on mental status. -urine culture negative. -Surgical debridement of sacral wound performed on 12/25. Wound VAC placed on the 12/30. Wound cultures completed on 12/22 grew: Gram-negative rods, Proteus mirabilis, Acinetobacter Wound cultures taken on 12/26 grew protease mirabilis ESBL. Patient was initially started on meropenem however due to history of seizures he was taken off the medication. Recommend patient be started on IV polymyxin B to cover pain resistant Acinetobacter, will also cover parties and the ESBL. Continue IV cefepime as well for broad-spectrum antibiotic coverage due to patient's current condition. Continue monitor renal function, obtain BMP daily. -medical management per primary team -continue monitor CBC and BMP -continue monitor signs infection Plan of care discussed with Dr. Patel. Thank you for consultation.
[2020-12-31 10:16] VITALS: O2SAT 95
[2020-12-31] MEDS ORDERED: DEXTROSE 5% IV SCH (12:00)
[2020-12-31] MEDS ORDERED: POLYMYXIN B SULFATE IV SCH (12:00)
[2020-12-31] MEDS ORDERED: WATER IV SCH (12:00)
[2020-12-31 12:28] VITALS: BP 127/71; TEMP 96.9
--- NOTE | 2020-12-31 17:36 | P.DS ---
Admission Date: 12/15/20 Discharge Date: 12/31/20 Disposition: [facility] Discharge Condition: FAIR Reason for Admission: AMS, UTI Consultations: Infectious Disease - Dr. Patel General Surgery - Dr. Mckeon Nephrology - Dr. Farris / [place] Procedures: CXR (12/15): The lungs appear clear of acute infiltrate. The heart is normal size CT Head (12/15): No acute intracranial abnormality. CT Pelvis (): : Posterior ulceration involves the subcutaneous tissue. No abscess visualized. No bony destructive lesion is seen. CXR (12/21): The lungs appear clear of acute infiltrate. The heart is borderline enlarged CT Chest/Abd (12/22): FINDINGS: The lungs are clear of mass and infiltrate. Posterior gutter atelectasis changes are present. No pneumothorax or pleural effusion. No chest wall mass or abnormal axillary lymphadenopathy seen. Mediastinal and hilar regions show no mass or lymphadenopathy. Aorta and pulmonary arterial tree enhance normally. No significant cardiac finding. The liver, spleen and pancreas show no significant findings. Cholecystectomy clips are present. No biliary tree dilatation. Symmetric renal function is seen with no hydronephrosis, mass or other significant finding. No adrenal abnormalities. Multiple small cortical cysts are present. Lap band is in place. No gastric dilatation or wall thickening. No acute small bowel abnormality identifiable. The imaged portions of colon show moderate stool volume without an acute colon process. No free air, free fluid or inflammatory stranding. No hernia, mass or bulky lymphadenopathy. Disc and bone degenerative changes are present. No pathologic bone process. No acute vascular finding. IMPRESSION: CT chest imaging shows mild posterior gutter atelectasis with no acute chest finding. Aspiration pneumonia is not suspected. CT abdomen imaging shows no acute or emergent finding. 12/26 Excisional debridement of right buttock wound, infected, 10 x 8 x 5 cm and deep subcutaneous tissue. Problem List Acute metabolic encephalopathy / AMS, improved Hypernatremia, resolved Acute renal failure, prerenal, resolved Alzheimer's dementia Chronic atrial fibrillation Dysphagia Stage IV R buttocks pressure wound laceration of urethral meatus hyperammonemia Brief History of Present Illness: 75 yo male with Alzheimer's disease, chronic afib, HTN, hypothyroidism, history of seizures, depression, bipolar d/o and chronic constipation here today from senior care for AMS of unknown duration. He comes from [facility] and is normally AOx3. Unable to give history at bedside. Facial grimacing and repetitive movements. CT head and CXR wnl. WBC 13. Na 150, BUN 52, Cr 1.97, GFR 33. Glu 128. Trop 0.1. BNP 2605. Albumin 2.7. Urine + for RBCs, WBCs, bacteria. Hospital Course: Patient was covered empirically for UTI, however urine culture was without growth. He had mild improvement in his altered mental status. He was noted to have rising CRP levels and worsening sacral decubitus ulcer. Wound culture grew ESBL Proteus and ohara-resistant acinetobacter. ID and general surgery were consulted. Patient underwent surgical debridement and placement of wound vac. Blood cultures remained negative. He was noted to have urinary retention at time of admission - had hankins placed ~1 month prior. He was given a voiding trial but failed and hankins was replaced. During his hospitalization, the patient accidentally pulled the hankins catheter which lead to a tear of his urethral meatus. Urology was contacted and recommended cleaning with soap & water and antibiotic ointment, otherwise no other interventions. He will need to f/u with Urology in 2-3 weeks. Patient was treated with Cefepime and Polymixin B. He had improvement of his mentation and appeared to be back to his baseline. Per senior care, his baseline is confused, slow to answer, but aware of surroundings, and intermittent clarity / remembers names. Vital Signs/Physical Exam: Physical Exam General: Confused, alert, oriented x1 HEENT: Mucous membr. moist/pink Respiratory: Clear to auscultation bilaterally, Normal air movement Cardiovascular: Regular rate/rhythm, Normal S1 S2 Gastrointestinal: Soft and benign, Non-distended, No tenderness Musculoskeletal: No contractures Integumentary: Stage IV sacral decubitus ulcers Neurological: He moves upper extremities spontaneously. He obey commands only intermittently. Temp Pulse Resp BP Pulse Ox 96.9 F 94 H 18 127/71 94 12/31/20 12:00 12/31/20 12:00 12/31/20 12:35 12/31/20 12:00 12/31/20 12:35 Laboratory Data at Discharge: WBC 9.20 K/uL (4.3-10.9) D 12/31/20 03:46 Hgb 12.0 g/dL (13.6-17.9) L 12/31/20 03:46 Hct 34.7 % (39.6-49.0) L 12/31/20 03:46 Plt Count 267 K/uL (152-406) 12/31/20 03:46 PT 15.1 SECONDS (9.5-12.5) H 12/15/20 01:40 INR 1.31 12/15/20 01:40 APTT 27.3 SECONDS (24.3-36.9) 12/15/20 01:40 Sodium 142 mmol/L (136-145) 12/31/20 03:46 Potassium 4.5 mmol/L (3.5-5.1) 12/31/20 03:46 BUN 18 mg/dL (7-18) 12/31/20 03:46 Creatinine 0.59 mg/dL (0.55-1.3) 12/31/20 03:46 Glucose 104 mg/dL (74-106) 12/31/20 03:46 Uric Acid 5.3 mg/dL (3.5-7.2) 12/22/20 06:29 Phosphorus 2.6 mg/dL (2.5-4.9) 12/29/20 03:48 Magnesium 2.0 mg/dL (1.8-2.4) 12/23/20 03:01 Total Bilirubin 0.3 mg/dL (0.2-1.0) 12/31/20 03:46 AST 17 U/L (15-37) 12/31/20 03:46 ALT 13 U/L (12-78) 12/31/20 03:46 Alkaline Phosphatase 54 U/L (45-117) 12/31/20 03:46 Troponin I 0.06 ng/mL (0.0-0.045) H 12/16/20 02:50 Triglycerides 267 mg/dL (<150) H 12/16/20 02:50 Cholesterol 202 mg/dL (<200) H 12/16/20 02:50 HDL Cholesterol 29 mg/dL (40-60) L 12/16/20 02:50 Cholesterol/HDL Ratio 6.97 12/16/20 02:50 Amylase 59 U/L (25-115) 12/15/20 01:10 Lipase 138 U/L (73-393) 12/15/20 01:10 Home Medications: Divalproex Sodium [Depakote ER] 2 tab PO BEDTIME 01/22/15 Donepezil [Aricept*] 10 mg PO BEDTIME 03/08/18 PHENYTOIN ER Cap [Dilantin ER Cap*] 2 cap PO BID 03/08/18 Amlodipine [Norvasc*] 2.5 mg PO DAILY 11/26/20 Calcium Carbonate/Vitamin D3 [Calcium 600-Vit D3 400 Tablet] 1 each PO DAILY 11/26/20 Divalproex ER [Depakote *ER] 250 mg PO DAILY 11/26/20 Fluoxetine HCl [Prozac] 40 mg PO DAILY 11/26/20 Furosemide [Lasix*] 40 mg PO BIDL 11/26/20 Gabapentin [Neurontin*] 100 mg PO TID 11/26/20 Hydrocodone 5/APAP 325 [[place] 5/325*] 1 tab PO Q8HP PRN 11/26/20 Hydrocortisone Cream [Hydrocortisone 1% Cream*] 1 appl TOP BID 11/26/20 Levothyroxine Sodium [Synthroid] 150 mcg PO [id number] 11/26/20 Lidocaine [Aspercreme Lidocaine] 1 each TP DAILY 11/26/20 Metoprolol Tartrate 25 mg PO BID 11/26/20 Nitroglycerin [Nitrostat*] 0.4 mg SL PRN PRN 11/26/20 Omeprazole Magnesium [Acid [employer]] 20 mg PO DAILY 11/26/20 Polyethylene Glycol 3350 [Miralax] 17 gm PO DAILY 11/26/20 Trazodone HCl 100 mg PO BEDTIME 11/26/20 hydrOXYzine HCL [Atarax*] 25 mg PO BIDP PRN 11/26/20 Apixaban [Eliquis] 2.5 mg PO BID 12/15/20 Physician Discharge Instructions: You were found to have infection of your sacral decubitus ulcer. You have resistant bacteria growing in your wound. Surgical debridement was performed on 12/25 and wound vac placed on 12/30. Wound culture grew ohara resistant Acinetobacter (12/22) and ESBL proteus (12/26). You are discharged to LTAC with cefepime (started 12/23) and polymixin B (started 12/31). You will need at least 2 weeks total of IV Antibiotics. These will be continued and duration will be further managed by Infectious Disease specialists. Followup: NONE,NONE [Primary Care Provider] -
== END 2020-12-31 15:30 | DRG 853 ==
LOC: ER 00:44 → ERHOLD 05:25 → 4TH 09:57
PROVIDERS: ADMIT Internal Medicine; ATTEND Hospitalist
PROC: 0JB90ZZ Excision of Buttock Subcutaneous Tissue and Fascia, Open Approach (ICD-10-PCS; principal; 2020-12-26 11:15)
DX: A41.9 Sepsis, unspecified organism (principal); G93.41 Metabolic encephalopathy; E43 Unspecified severe protein-calorie malnutrition; N39.0 Urinary tract infection, site not specified; I48.20 Chronic atrial fibrillation, unspecified; E87.0 Hyperosmolality and hypernatremia; N17.9 Acute kidney failure, unspecified; S37.33XA Laceration of urethra, initial encounter; E72.20 Disorder of urea cycle metabolism, unspecified; Z16.12 Extended spectrum beta lactamase (ESBL) resistance; K21.9 Gastro-esophageal reflux disease without esophagitis; M19.90 Unspecified osteoarthritis, unspecified site; E03.9 Hypothyroidism, unspecified; G30.9 Alzheimer's disease, unspecified; F02.80 Dementia in other diseases classified elsewhere, unspecified severity, without behavioral disturbance, psychotic disturbance, mood disturbance, and anxiety; K59.09 Other constipation; I25.10 Atherosclerotic heart disease of native coronary artery without angina pectoris; F31.9 Bipolar disorder, unspecified; E83.39 Other disorders of phosphorus metabolism; E83.51 Hypocalcemia; E66.01 Morbid (severe) obesity due to excess calories; D64.9 Anemia, unspecified; E16.2 Hypoglycemia, unspecified; L89.310 Pressure ulcer of right buttock, unstageable; E78.5 Hyperlipidemia, unspecified; I10 Essential (primary) hypertension; B96.4 Proteus (mirabilis) (morganii) as the cause of diseases classified elsewhere; R31.9 Hematuria, unspecified; R13.10 Dysphagia, unspecified; R33.9 Retention of urine, unspecified; R77.8 Other specified abnormalities of plasma proteins; Z68.31 Body mass index [BMI] 31.0-31.9, adult; Z88.0 Allergy status to penicillin; Z79.82 Long term (current) use of aspirin; Z79.01 Long term (current) use of anticoagulants; Z79.899 Other long term (current) drug therapy; Z79.890 Hormone replacement therapy; Z86.73 Personal history of transient ischemic attack (TIA), and cerebral infarction without residual deficits; Z98.84 Bariatric surgery status; Z88.7 Allergy status to serum and vaccine; Z79.52 Long term (current) use of systemic steroids; Z20.822 Contact with and (suspected) exposure to COVID-19
CPT/HCPCS: 36415; 70450; 71045; 71260; 72193; 74160; 80048; 80053; 80061; 80076; 80164; 80185; 80202; 80307; 80320; 80329; 81003; 81015; 82140; 82150; 82550; 82553; 82947; 83036; 83605; 83690; 83735; 83880; 84100; 84132; 84145; 84439; 84443; 84484; 84550; 85025; 85610; 85652; 85730; 86038; 86140; 86200; 86430; 87040; 87070; 87075; 87077; 87086; 87088; 87176; 87186; 87205; 88304; 92610; 93005; 94760; 96365; 99251; 99285; J0330; J0692; J1170; J2250; J2370; J2405; J2704; J2710; J3010; J3370; J3475; J3480; J7030; J7040; J7060; Q9967; U0003

== ENCOUNTER 2021-02-14 19:03 | Emergency (ER) | payer OTHER ==
--- NOTE | 2021-02-14 21:24 | RAD REPORT ---
EXAM DESCRIPTION: RAD - ENTEROSTOMY TUBE CHECK W/CONTR - 02/14/2021 9:03 pm CLINICAL HISTORY: peg tube placement COMPARISON: [facility] Protocol dated 11/01/2019; Chest Abdomen W Con dated 12/22/2020 FINDINGS: Gastrostomy tube overlies the the stomach. Injection of contrast confirms the tip of the t ube in the stomach. The bowel gas pattern is nonobstructive. Surgical clips are present right upper q uadrant. IMPRESSION: Gastrostomy tube with intragastric placement confirmed with contrast injection.
--- NOTE | 2021-02-14 21:28 | ER ---
Nurse's Notes [facility] Name: Zbigniew Mitchell Age: 75 yrs Sex: Male : 1945 Arrival Date: 02/14/2021 Time: 19:04 Bed 8 Private MD: Diagnosis: Encounter for replacements gastrostomy tube Presentation: 02/14 19:05 Chief complaint: EMS states: they were called to [facility] due to patient pulling ap3 out his PEG tube. Coronavirus screen: At this time, the client does not indicate any symptoms associated with coronavirus-19. Ebola Screen: No symptoms or risks identified at this time. Initial Sepsis Screen: Does the patient meet any 2 criteria? No. Patient's initial sepsis screen is negative. Does the patient have a suspected source of infection? No. Patient's initial sepsis screen is negative. Risk Assessment: Do you want to hurt yourself or someone else? Patient reports no desire to harm self or others. Onset of symptoms was February 14, 2021. 19:05 Method Of Arrival: EMS: [facility] ap3 19:05 Acuity: ANDRE 4 ap3 - Social history:: Smoking status: Patient denies any tobacco usage or history of. Screenin:07 Abuse screen: Denies threats or abuse. Nutritional screening: No deficits noted. ap3 Tuberculosis screening: No symptoms or risk factors identified. 19:10 Fall Risk None identified. jb4 Assessment: 19:05 General: Appears in no apparent distress. comfortable, Behavior is calm, cooperative. jb4 Pain: Denies pain. Neuro: Level of Consciousness is awake, alert, obeys commands, Oriented to person, place. Cardiovascular: Patient's skin is warm and dry. Respiratory: Airway is patent Respiratory effort is even, unlabored, Respiratory pattern is regular, symmetrical. GI: No signs and/or symptoms were reported involving the gastrointestinal system. : No signs and/or symptoms were reported regarding the genitourinary system. EENT: No signs and/or symptoms were reported regarding the EENT system. Derm: Skin is intact, Skin is pink, warm \T\ dry. Musculoskeletal: Circulation, motion, and sensation intact. Range of motion: intact in all extremities. 19:55 Reassessment: [facility] No answer. jb4 20:08 Reassessment: Attempted to call from personal phone. Staff answered, was informed to [facility] call back in about 30 minutes or wait for call back when nurse was ready. 21:57 Reassessment: Pt remains A\T\Ox2. Staff attempted to call report to [address] multiple times. Staff received no answer. Report given to EMS, pt discharged back to [facility]. Vital Signs: 19:05 BP 92 / 55; Pulse 58; Resp 21; Temp 98.2(T); Pulse Ox 97% on R/A; ap3 21:30 BP 107 / 65; Pulse 61; Resp 20; Pulse Ox 98% on R/A; jb4 ED Course: 19:04 Patient arrived in ED. ds1 19:07 Triage completed. ap3 19:08 Bed in low position. Call light in reach. Side rails up X2. Pulse ox on. NIBP on. Door ap3 closed. Noise minimized. 19:09 Rik Hartman RN is Primary Nurse. jb4 19:41 Donny Perez MD is Attending Physician. [facility] 19:48 Yasmin Jose FNP-C is [facility]. kb 21:03 PEG Tube Check w/contrast In Process Unspecified. EDMS 22:00 No provider procedures requiring assistance completed. Patient did not have IV access jb4 during this emergency room visit. Administered Medications: No medications were administered Outcome: 21:27 Discharge ordered by . kb 22:00 Discharged to [facility]. jb4 22:00 Condition: stable 22:00 Discharge instructions given to EMS, Instructed on discharge instructions, follow up and referral plans. Demonstrated understanding of instructions, follow-up care. 22:00 Patient left the ED. 4 Signatures: Dispatcher [employer] EDSD Yasmin Jose FNP-C ORNAMENTER HAND-Carmen Wallace ds1 Rik Hartman RN RN jb4 Karis Lux RN RN ap3 Donny Perez MD MD 7 Corrections: (The following items were deleted from the chart) 20:08 19:05 Neuro: Level of Consciousness is awake, alert, obeys commands, Oriented to jb person, [facility]
--- NOTE | 2021-02-14 21:28 | EDPHYS ---
Physician Documentation [facility] Name: Zbigniew Mitchell Age: 75 yrs Sex: Male : 1945 Arrival Date: 02/14/2021 Time: 19:04 Bed 8 Private MD: ED Physician Donny Perez HPI: 02/14 20:48 This 75 yrs old Male presents to ER via EMS with complaints of PEG Tube Issue.kb 20:49 Pt sent from [facility] for pulling out peg tube. Onset: The symptoms/episode kb began/occurred today. Severity of symptoms: At their worst the symptoms were moderate in the emergency department the symptoms are unchanged. The patient has experienced a previous episode. It is unknown whether or not the patient has recently seen a physician. Patient sent from [facility] for pulling out PEG tube. Tried to contact [facility] for more information including PEG tube size and time of incident. Called 4 times with no answer. . - Social history:: Smoking status: Patient denies any tobacco usage or history of. ROS: 20:50 Constitutional: Negative for fever, chills, and weight loss. kb 20:50 Abdomen/GI: Positive for removed peg tube, no bleeding or drainage noted from gastrostomy. 20:50 Unable to obtain ROS due to baseline dementia. kb Exam: 20:54 Constitutional: This is a well developed, well nourished patient who is awake, alert, kb and in no acute distress. ENT: Moist Mucous membranes Cardiovascular: Regular rate and rhythm with a normal S1 and S2. No gallops, murmurs, or rubs. No pulse deficits. Respiratory: Respirations even and unlabored. No increased work of breathing, no retractions or nasal flaring. Abdomen/GI: Soft, non-tender. No distention 20:54 Abdomen/GI: Inspection: gastrostomy noted. 20:54 Neuro: Exam negative for acute changes. Vital Signs: 19:05 BP 92 / 55; Pulse 58; Resp 21; Temp 98.2(T); Pulse Ox 97% on R/A; ap3 21:30 BP 107 / 65; Pulse 61; Resp 20; Pulse Ox 98% on R/A; jb4 Procedures: 20:23 G-tube placement: a 16 English catheter was placed, by the ED physician, Yasmin valera BESSEMER REGULATOR-C. MDM: 19:48 Patient medically screened. kb 20:50 Data reviewed: vital signs, nurses notes. Data interpreted: Pulse oximetry: on room air kb is 97 %. Interpretation: normal. Counseling: I had a detailed discussion with the patient and/or guardian regarding: the historical points, exam findings, and any diagnostic results supporting the discharge/admit diagnosis, radiology results, the need for outpatient follow up, a family practitioner, to return to the emergency department if symptoms worsen or persist or if there are any questions or concerns that arise at home. 02/14 20:23 Order name: PEG Tube Check w/contrast; Complete Time: 21:26 kb Administered Medications: No medications were administered Disposition Summary: 02/14/21 21:27 Discharge Ordered Location: Home kb Condition: Stable kb Diagnosis - Encounter for replacements gastrostomy tube kb Followup: kb - With: Emergency Department - When: As needed - Reason: Worsening of condition Followup: kb - With: Private Physician - When: 2 - 3 days - Reason: Recheck today's complaints, Continuance of care, Re-evaluation by your physician Discharge Instructions: - Discharge Summary Sheet kb - Gastrostomy Tube Replacement, Care After kb Forms: - Medication Reconciliation Form kb - Thank You Letter kb - Antibiotic Education kb - Prescription Opioid Use kb - SBAR form bb Addendum: 02/16/2021 05:54 Co-signature as Attending Physician, Donny Perez MD. [facility] Signatures: Dispatcher [employer] Yasmin Tyson FNP-C FNP-Karis Vera RN RN ap3 Donny Perez MD MD [id number] Corrections: (The following items were deleted from the chart) 02/14 20:56 20:50 Abdomen/GI: Positive for removed peg tube, no bleeding or drainage noted from kb stoma, kb
[2021-02-14 22:08] VITALS: TEMP 98.2
[2021-02-14 22:09] VITALS: BP 107/65; O2SAT 98
== END 2021-02-14 22:00 | disposition home or self-care (01) ==
LOC: ER 19:03
DX: K94.29 Other complications of gastrostomy (principal)
CPT/HCPCS: 49465; 99283

== ENCOUNTER 2021-02-18 07:45 | Emergency (ER) | payer OTHER ==
--- NOTE | 2021-02-18 08:26 | RAD REPORT ---
EXAM DESCRIPTION: CT - [id number] - 02/18/2021 7:57 am CLINICAL HISTORY: fall from bed, head and neck injury COMPARISON: Head C Spine Mpr Wo Con dated 11/01/2019 TECHNIQUE: Axial 5 mm thick images of the head were obtained. Axial 2 mm thick images of the cervic al spine were obtained with sagittal and coronal reconstruction images generated and reviewed. All CT scans are performed using dose optimization technique as appropriate and may include automated exposure control or mA/KV adjustment according to patient size. FINDINGS: No intracranial hemorrhage, mass, edema or acute intracranial finding. No acute cortical b ased infarction identified. No cortical edema or sulcal effacement. Moderate severity atrophy is pres ent. Ventriculomegaly present out of proportion to volume loss with enlarged occipital horn right lat eral ventricle to the localized occipital lobe encephalomalacia. These intracranial findings are all stable from October 2019. Posterior skull craniectomy changes are present with surgical material in sean ce. Stranding in the overlying soft tissues noted and stable. No extra-axial fluid collections. Masto id air cells and paranasal sinuses are clear. No globe or orbit abnormality seen. Cervical bodies are normal in height. Straightening of the usual cervical lordosis again noted. Very slight C2 anterior subluxation again noted. All disc spaces except C2-3 show narrowing similar to the comparison study. No fracture or acute bony abnormality. Facet joint degenerative changes are presen t. Uncovertebral joint hypertrophy is present causing mild bilateral bony foraminal encroachment at C 3-4. Severe foraminal stenosis from uncovertebral joint hypertrophy noted at C4-5 and C5-6. Moderate severity stenosis at C6-7. Central canal detail is inherently limited. No paraspinal mass or hematoma. IMPRESSION: Negative CT head examination for acute or significant finding. No new finding from October 2019. Negative CT cervical spine examination for acute finding. Cervical spine degenerative change with mu ltilevel severe foraminal stenosis noted similar to October 2019.
--- NOTE | 2021-02-18 08:29 | RAD REPORT ---
EXAM DESCRIPTION: RAD - Pelvis - 02/18/2021 8:16 am CLINICAL HISTORY: fall from bed COMPARISON: Pelvis W/Cont dated 12/20/2020 TECHNIQUE: AP imaging of the pelvis was obtained. FINDINGS: Lower lumbar degenerative change present only partially imaged on this study. SI joint deg enerative change similar to comparison. No fracture of the bony pelvis identified. No fracture or dislocation of either proximal femur.
--- NOTE | 2021-02-18 08:30 | RAD REPORT ---
EXAM DESCRIPTION: RAD - Wrist Right 3 View - 02/18/2021 8:16 am CLINICAL HISTORY: PAIN, fall COMPARISON: Wrist Right 3 View dated 11/01/2019 FINDINGS: No fracture is identified. Small bone density between the lunate and triquetrum bones stab le from the prior study. There is no dislocation or periosteal reaction noted. No foreign body or oth er soft tissue abnormality. IMPRESSION: No fracture or acute right wrist finding.
--- NOTE | 2021-02-18 17:57 | EDPHYS ---
Physician Documentation [facility] Name: Zbigniew Mitchell Age: 75 yrs Sex: Male : 1945 Arrival Date: 02/18/2021 Time: 07:46 Bed 2 Private MD: ED Physician Rio Oconnor HPI: 02/18 07:49 This 75 yrs old Male presents to ER via EMS with complaints of Fall Injury. cp 07:49 Details of fall: The patient fell from a height, bed, and struck a tile surface. Onset: cp The symptoms/episode began/occurred this morning. Associated injuries: The patient sustained right wrist, abrasion, painful injury. 07:50 Patient denies hitting head, denies LOC. Patient takes Eliquis daily. cp Historical: - Allergies: 07:49 PENICILLINS; ph - Home Meds: 07:49 acetaminophen 325 mg Oral tab 2 tabs q 8 hrs [Active]; Aricept 10 mg Oral tab 1 tab ph nightly [Active]; aspirin 81 mg Oral chew 1 tab once daily [Active]; Depakote ER 500 mg Oral Tb24 2 tabs nightly [Active]; Dilantin 100 mg Oral 2 tab twice a day [Active]; Eliquis 2.5 mg Oral tab 1 tab 2 times per day [Active]; Eliquis 5 mg Oral tab 0.5 tab 2 times per day [Active]; furosemide 20 mg Oral tab 1 tab once daily [Active]; Cora-Tussin DM 10-100 mg/5 mL Oral syrp 15 mL TID [Active]; hydrocodone-acetaminophen 7.5-325 mg Oral tab 1 tab 8 hours [Active]; hydrocortisone 1 % Topical crea 2 times per day [Active]; loratadine 10 mg Oral tab 1 tab once daily [Active]; metoprolol tartrate 25 mg Oral tab 1 tab 2 times per day [Active]; Miralax 17 gram Oral pwpk 1 packet once daily [Active]; Neurontin 100 mg Oral cap nightly [Active]; nitroglycerin 0.4 mg Oral cpER PRN [Active]; Norvasc 2.5 mg Oral tab 1 tab twice a day [Active]; omeprazole 20 mg Oral cpDR 1 cap once daily [Active]; Prozac 40 mg Oral cap 1 cap once daily [Active]; Seroquel 25 mg Oral tab 1 tab 2 times per day [Active]; Synthroid 150 mcg Oral tab 1 tab once daily [Active]; trazodone 100 mg Oral tab 1 tab at bedtime [Active]; Vitamin D Oral 2000 unit daily [Active]; Zyrtec 10 mg Oral cap daily [Active]; - PMHx: 07:49 Atrial Fib; Bipolar disorder; Bronchitis; Chronic pain; Cervicalgia; constipation; 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 - Social history:: Smoking status: unknown. ROS: 07:56 Neck: Negative for pain with movement, pain at rest, stiffness. cp 07:56 Cardiovascular: Negative for chest pain. 07:56 Respiratory: Negative for shortness of breath. 07:56 Abdomen/GI: Negative for abdominal pain. 07:56 MS/extremity: Positive for abrasion, pain, of the right wrist, Negative for decreased range of motion, deformity. 07:56 Neuro: Negative for altered mental status, headache, loss of consciousness. 07:56 Eyes: Negative for injury, pain, redness, and discharge. cp 07:56 Constitutional: Negative for body aches, chills, fever. 07:56 Skin: Positive for pressure ulcer coccyx area. 07:56 All other systems are negative. cp Exam: 08:00 Constitutional: The patient appears in no acute distress, alert, awake, cp non-diaphoretic, non-toxic, well developed, well nourished. 08:00 Head/Face: Normocephalic, atraumatic. cp 08:00 Eyes: Periorbital structures: appear normal, Pupils: equal, round, and reactive to light and accomodation, Extraocular movements: intact throughout, Conjunctiva: normal, no exudate, no injection, Lids and lashes: appear normal, bilaterally. 08:00 ENT: External ear(s): are unremarkable, Nose: is normal, Mouth: Lips: moist, Oral mucosa: moist, Posterior pharynx: Airway: no evidence of obstruction, patent. 08:00 Neck: C-spine: vertebral tenderness, is not appreciated, crepitus, is not appreciated. 08:00 Chest/axilla: Inspection: normal, Palpation: is normal, no crepitus, no tenderness. 08:00 Cardiovascular: Rate: tachycardic. 08:00 Respiratory: the patient does not display signs of respiratory distress, Respirations: normal, no use of accessory muscles, no retractions, labored breathing, is not present. 08:00 Abdomen/GI: Inspection: abdomen appears normal, Palpation: abdomen is soft and non-tender, in all quadrants. 08:00 Back: vertebral tenderness, is not appreciated. 08:00 Musculoskeletal/extremity: Extremities: grossly normal except: noted in the right cp wrist: abrasion, tenderness, There is no evidence of decreased ROM, deformity, ROM: full active range of motion, in the right wrist, Pulses: noted to be 2+ in the right radial artery. 08:00 Skin: soft ball size pressure ulcer noted to coccyx area. cp 08:00 Neuro: Orientation: to person, place \T\ time. Mentation: is normal. Vital Signs: 08:41 BP 117 / 96; Pulse 101; Resp 18; Temp 97.8; Pulse Ox 98% on R/A; Weight 113.4 kg; ph 09:40 BP 108 / 78; Pulse 95; Resp 18; Temp 97.2; Pulse Ox 99% on R/A; ph Alivia Coma Score: 07:54 Eye Response: spontaneous(4). Verbal Response: oriented(5). Motor Response: obeys ph commands(6). Total: 15. Trauma Score (Adult): 07:54 Eye Response: spontaneous(1); Verbal Response: oriented(1); Motor Response: obeys ph commands(2); Systolic BP: > 89 mm Hg(4); Respiratory Rate: 10 to 29 per min(4); Mcintosh Score: 15; Trauma Score: 12 MDM: 07:47 Patient medically screened. cp 08:00 Differential diagnosis: closed head injury, contusion, fracture, laceration, multiple cp trauma. 08:55 Data reviewed: vital signs, nurses notes, radiologic studies, CT scan, plain films. cp 08:55 Test interpretation: by ED physician or midlevel provider: plain radiologic studies. cp Counseling: I had a detailed discussion with the patient and/or guardian regarding: the historical points, exam findings, and any diagnostic results supporting the discharge/admit diagnosis, radiology results, to return to the emergency department if symptoms worsen or persist or if there are any questions or concerns that arise at home. 02/18 07:47 Order name: CT Head C Spine; Complete Time: 08:31 cp 02/18 07:47 Order name: XRAY Wrist RIGHT 3 view; Complete Time: 08:31 cp 02/18 07:48 Order name: XRAY Pelvis; Complete Time: 08:31 cp 02/18 08:32 Order name: Wound Care; Complete Time: 08:38 cp 02/18 08:49 Order name: Wrist Splint; Complete Time: 09:01 cp Administered Medications: No medications were administered Disposition: 16:49 Co-signature as Attending Physician, Rio Oconnor MD. rn Disposition Summary: 02/18/21 08:55 Discharge Ordered Location: Home cp Problem: new cp Symptoms: have improved cp Condition: Stable cp Diagnosis - Abrasion of right wrist cp - Fall from bed, initial encounter cp Followup: cp - With: Private Physician - When: 1 - 2 days - Reason: Recheck today's complaints Discharge Instructions: - Discharge Summary Sheet cp - Wrist Pain, Adult cp - Understanding Your Risk for Falls cp Forms: - Medication Reconciliation Form cp - Thank You Letter cp - Antibiotic Education cp - Prescription Opioid Use cp Signatures: Dispatcher [employer] EDRio Corley MD MD rn Hall, Patricia, RN RN ph Darrell Ramos, NELL PA cp Corrections: (The following items were deleted from the chart) 02/19 07:04 02/18 07:56 All other systems are negative, cp cp
--- NOTE | 2021-02-18 17:57 | ER ---
Nurse's Notes [facility] Name: Zbigniew Mitchell Age: 75 yrs Sex: Male : 1945 Arrival Date: 02/18/2021 Time: 07:46 Bed 2 Private MD: Diagnosis: Abrasion of right wrist;Fall from bed, initial encounter Presentation: 02/18 07:46 Chief complaint: EMS states: Pt from [facility], fell from bed this ph morning, does take Eliquis, states that he thinks he may have hit his head, no LOC, c/o R wrist pain, abrasions to R wrist and R knee. Care prior to arrival: None. Mechanism of Injury: Fall out of bed. Trauma event details: Injury occurred in the [facility], Injury occurred: in an institution. Injury occurred: February 18, 2021. 07:46 Acuity: ANDRE 2 ph 07:46 Method Of Arrival: EMS: [facility] ph 07:55 Coronavirus screen: Client denies travel out of the [place] in the last 14 days. At this ph time, the client does not indicate any symptoms associated with coronavirus-19. Ebola Screen: No symptoms or risks identified at this time. Initial Sepsis Screen: Does the patient meet any 2 criteria? No. Patient's initial sepsis screen is negative. Does the patient have a suspected source of infection? No. Patient's initial sepsis screen is negative. Risk Assessment: Do you want to hurt yourself or someone else? Patient reports no desire to harm self or others. Onset of symptoms was February 18, 2021. Trauma Activation: Alert Physician: ED Physician; Name: ; Notified At: ; Arrived At: Physician: General Surgeon; Name: ; Notified At: ; Arrived At: Physician: Radiology; Name: ; Notified At: ; Arrived At: Physician: Respiratory; Name: ; Notified At: ; Arrived At: Physician: Lab; Name: ; Notified At: ; Arrived At: Historical: - Allergies: 07:49 PENICILLINS; ph - Home Meds: 07:49 acetaminophen 325 mg Oral tab 2 tabs q 8 hrs [Active]; Aricept 10 mg Oral tab 1 tab ph nightly [Active]; aspirin 81 mg Oral chew 1 tab once daily [Active]; Depakote ER 500 mg Oral Tb24 2 tabs nightly [Active]; Dilantin 100 mg Oral 2 tab twice a day [Active]; Eliquis 2.5 mg Oral tab 1 tab 2 times per day [Active]; Eliquis 5 mg Oral tab 0.5 tab 2 times per day [Active]; furosemide 20 mg Oral tab 1 tab once daily [Active]; Cora-Tussin DM 10-100 mg/5 mL Oral syrp 15 mL TID [Active]; hydrocodone-acetaminophen 7.5-325 mg Oral tab 1 tab 8 hours [Active]; hydrocortisone 1 % Topical crea 2 times per day [Active]; loratadine 10 mg Oral tab 1 tab once daily [Active]; metoprolol tartrate 25 mg Oral tab 1 tab 2 times per day [Active]; Miralax 17 gram Oral pwpk 1 packet once daily [Active]; Neurontin 100 mg Oral cap nightly [Active]; nitroglycerin 0.4 mg Oral cpER PRN [Active]; Norvasc 2.5 mg Oral tab 1 tab twice a day [Active]; omeprazole 20 mg Oral cpDR 1 cap once daily [Active]; Prozac 40 mg Oral cap 1 cap once daily [Active]; Seroquel 25 mg Oral tab 1 tab 2 times per day [Active]; Synthroid 150 mcg Oral tab 1 tab once daily [Active]; trazodone 100 mg Oral tab 1 tab at bedtime [Active]; Vitamin D Oral 2000 unit daily [Active]; Zyrtec 10 mg Oral cap daily [Active]; - PMHx: 07:49 Atrial Fib; Bipolar disorder; Bronchitis; Chronic pain; Cervicalgia; constipation; 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 - Social history:: Smoking status: unknown. Screenin:54 Abuse screen: Denies threats or abuse. Denies injuries from another. Nutritional ph screening: No deficits noted. Tuberculosis screening: No symptoms or risk factors identified. Fall Risk None identified. Primary Survey: 07:53 NO uncontrolled hemorrhage observed. A: The patient is alert. Airway: patent, No ph supplemental oxygen in use on arrival. Oral cavity: clear, Trachea midline. Breathing/Chest: Respiratory pattern: regular, Respiratory effort: spontaneous, unlabored, Chest inspection: symmetrical rise and fall of the chest. Circulation: Skin color: pink, Skin temperature: warm, dry. Disability Alert. Exposure/Environment: There is no evidence of uncontrolled external bleeding. Obvious injury(ies) are noted at this time: abrasion to R wrist and R knee. 09:41 Reassessment Airway Airway Patent Breathing/Chest Respiratory pattern Regular ph Respiratory effort Spontaneous Unlabored Disability Alert. Secondary Survey: 08:41 HEENT: No deficits noted. Musculoskeletal: Circulation, motion, and sensation intact. ph Injury Description: Abrasion sustained to right knee and right wrist. Assessment: 08:38 General: Appears in no apparent distress. comfortable, Behavior is calm, cooperative. ph Pain: Complains of pain in right wrist. Neuro: Level of Consciousness is awake, alert, obeys commands, Oriented to person, place, situation. Cardiovascular: Capillary refill < 3 seconds in bilateral fingers Patient's skin is warm and dry. Respiratory: Airway is patent Respiratory effort is even, unlabored, Respiratory pattern is regular, symmetrical. GI: No signs and/or symptoms were reported involving the gastrointestinal system. : Gray in place to gravity drainage Urine is cloudy. Derm: Skin is pink, warm \T\ dry. Decubitus located on right sacrum approximately 7.6 cm to 20 cm is stage III. Derm: Decubitus located on left sacrum approximately > 20 cm is stage IV is draining moderate amount. 09:12 Reassessment: Patient appears in no apparent distress at this time. Patient and/or ph family updated on plan of care and expected duration. Pain level reassessed. report called to [facility], awaiting transport back to facility. 09:40 Reassessment: Patient appears in no apparent distress at this time. Patient and/or ph family updated on plan of care and expected duration. Pain level reassessed. Pt transported back to [facility] by [facility]. Vital Signs: 08:41 BP 117 / 96; Pulse 101; Resp 18; Temp 97.8; Pulse Ox 98% on R/A; Weight 113.4 kg; ph 09:40 BP 108 / 78; Pulse 95; Resp 18; Temp 97.2; Pulse Ox 99% on R/A; ph Frazer Coma Score: 07:54 Eye Response: spontaneous(4). Verbal Response: oriented(5). Motor Response: obeys ph commands(6). Total: 15. Trauma Score (Adult): 07:54 Eye Response: spontaneous(1); Verbal Response: oriented(1); Motor Response: obeys ph commands(2); Systolic BP: > 89 mm Hg(4); Respiratory Rate: 10 to 29 per min(4); Alivia Score: 15; Trauma Score: 12 ED Course: 07:46 Patient arrived in ED. ph 07:46 Darrell Ramos PA is PHCP. cp 07:46 Rio Oconnor MD is Attending Physician. cp 07:49 Triage completed. ph 07:54 Patient has correct armband on for positive identification. Bed in low position. Call ph light in reach. Pulse ox on. NIBP on. Door closed. Noise minimized. Warm blanket given. 07:55 Patient maintains SpO2 saturation greater than 95% on room air. Thermoregulation: warm ph blanket given to patient. 07:56 Arm band placed on Patient placed in an exam room. ph 07:57 CT Head C Spine In Process Unspecified. EDMS 08:15 XRAY Wrist RIGHT 3 view In Process Unspecified. EDMS 08:15 XRAY Pelvis In Process Unspecified. EDMS 08:38 Leyla Us RN is Primary Nurse. ph 09:41 No provider procedures requiring assistance completed. Patient did not have IV access ph during this emergency room visit. Administered Medications: No medications were administered Intake: 07:54 PO: 0ml; Total: 0ml. ph Output: 07:54 Urine: 0ml; Total: 0ml. ph Outcome: 08:55 Discharge ordered by . cp 09:41 Patient left the ED. ss 09:41 Discharged to long-term. ph 09:41 Condition: good 09:41 Discharge instructions given to long-term, Instructed on discharge instructions, follow up and referral plans. Signatures: Dispatcher [employer] EDAugustina Tobias RN RN ss Hall, Patricia, RN RN ph Darrell Ramos PA PA cp
[2021-02-19 19:58] VITALS: BP 108/78; TEMP 97.2; O2SAT 99
== END 2021-02-18 09:41 | disposition home or self-care (01) ==
LOC: ER 07:45
DX: S60.811A Abrasion of right wrist, initial encounter (principal); W06.XXXA Fall from bed, initial encounter; I48.91 Unspecified atrial fibrillation; F31.9 Bipolar disorder, unspecified; G89.29 Other chronic pain; F03.90 Unspecified dementia, unspecified severity, without behavioral disturbance, psychotic disturbance, mood disturbance, and anxiety; R29.6 Repeated falls; K21.9 Gastro-esophageal reflux disease without esophagitis; E78.5 Hyperlipidemia, unspecified; I10 Essential (primary) hypertension; E03.9 Hypothyroidism, unspecified; M19.90 Unspecified osteoarthritis, unspecified site; Z79.01 Long term (current) use of anticoagulants
CPT/HCPCS: 70450; 72125; 72170

== ENCOUNTER 2021-02-26 15:14 | Emergency (ER) | payer OTHER ==
--- OUTSIDE RECORDS SUMMARY | 2021-02-26 15:16 | XMS REPORT | Continuity of Care Document ---
:1945 Author Organization [facility] t Address [address] [place] [id number] Care Team Providers Name Role Phone Unavailable Unavailable Unavailable Problems This patient has no known problems. Allergies, Adverse Reactions, Alerts This patient has no known allergies or adverse reactions. Medications This patient has no known medications. Procedures This patient has no known procedures. Results Test Description Test Time Test Comments Results Result Comments Source AMMONIA 2020-11-06 10:13:00 Test Item Value Reference Range Interpretation Comme nts AMMONIA (test code = AMM) 93 umol/L 11-32 H
--- NOTE | 2021-02-26 17:52 | ER ---
Nurse's Notes [facility] Name: Zbigniew Mitchell Age: 75 yrs Sex: Male : 1945 Arrival Date: 02/26/2021 Time: 15:26 Bed 5 Private MD: Diagnosis: Encounter for attention to gastrostomy Presentation: 02/26 15:26 Chief complaint: EMS states: they were called by [facility] for a problem with his ap3 feeding tube. Coronavirus screen: Client denies travel out of the [place] in the last 14 days. At this time, the client does not indicate any symptoms associated with coronavirus-19. Ebola Screen: No symptoms or risks identified at this time. Initial Sepsis Screen: Does the patient meet any 2 criteria? No. Patient's initial sepsis screen is negative. Does the patient have a suspected source of infection? No. Patient's initial sepsis screen is negative. Risk Assessment: Do you want to hurt yourself or someone else? Patient reports no desire to harm self or others. Onset of symptoms was February 26, 2021. Care prior to arrival: None. Transition of care: patient was received from another setting of care (long-term care facility), [facility]. 15:26 Method Of Arrival: EMS: [facility] ap3 15:26 Acuity: ANDRE 3 ap3 Historical: - Allergies: 15:32 PENICILLINS; ap3 - Home Meds: 15:32 Aricept 10 mg Oral tab 1 tab nightly [Active]; Dilantin 100 mg Oral 2 tab twice a day ap3 [Active]; Eliquis 5 mg Oral tab 0.5 tab 2 times per day [Active]; furosemide 20 mg Oral tab 1 tab once daily [Active]; Miralax 17 gram Oral pwpk 1 packet once daily [Active]; Neurontin 100 mg Oral cap nightly [Active]; Depakote ER 500 mg Oral Tb24 2 tabs nightly [Active]; Norvasc 2.5 mg Oral tab 1 tab twice a day [Active]; nitroglycerin 0.4 mg Oral cpER PRN [Active]; Eliquis 2.5 mg Oral tab 1 tab 2 times per day [Active]; Vitamin C 500 mg oral tab 500 mg daily [Active]; Aspercreme (lidocaine) 4 % topical ptmd daily [Active]; Vitamin D Oral 2000 unit daily [Active]; docusate sodium 100 mg Oral cap 2 times per day [Active]; famotidine 20 mg Oral tab every 12 hours [Active]; folic acid 1 mg Oral tab 1 tab once daily [Active]; hydroxyzine HCl 25 mg Oral tab bid [Active]; magnesium oxide 400 mg magnesium Oral cap twice a day [Active]; megestrol 400 mg/10 mL (10 mL) Oral susp once daily [Active]; mupirocin 2 % topical oint twice daily [Active]; Neurontin 100 mg Oral cap 3 times per day [Active]; Barrington 5-325 mg Oral tab every 7 hours PRN for pain [Active]; potassium chloride 10 mEq Oral cpER 1 cap once daily [Active]; Prozac 40 mg Oral cap 1 cap once daily [Active]; Synthroid 150 mcg Oral tab 1 tab once daily [Active]; trazodone 100 mg Oral tab 1 tab at bedtime [Active]; valproic acid 250 mg Oral cap twice daily [Active]; zinc sulfate 220 mg Oral cap daily [Active]; omeprazole 20 mg Oral cpDR 1 cap once daily [Active]; Dilantin 100 mg capsule Oral 100 mg twice a day [Active]; metoprolol tartrate 25 mg Oral tab 1 tab 2 times per day [Active]; Synthroid 150 mcg Oral tab 1 tab in the morning [Active]; - PMHx: 15:32 Atrial Fib; Bipolar disorder; Bronchitis; Cervicalgia; Chronic pain; constipation; ap3 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 - Social history:: Smoking status: Patient denies any tobacco usage or history of. Screenin:28 Abuse screen: Denies threats or abuse. Tuberculosis screening: No symptoms or risk ap3 factors identified. 18:10 Nutritional screening: No deficits noted. Fall Risk Total Aleman Fall Scale indicates No jd3 Risk (0-24 pts). Assessment: 15:29 General: Appears in no apparent distress. comfortable, Behavior is calm, patient calls ap3 out randomly. patient denies pain. . Pain: Denies pain. Neuro: Level of Consciousness is awake, confused, Oriented to person, this is patients baseline. Speech with expressive aphasia noted, this is patients baseline. Cardiovascular: Capillary refill < 3 seconds Patient's skin is warm and dry. Respiratory: Airway is patent Respiratory effort is even, unlabored, Respiratory pattern is regular, symmetrical. GI: Parent/caregiver reports the patient having feeding tube not draining properly. : No signs and/or symptoms were reported regarding the genitourinary system. EENT: No signs and/or symptoms were reported regarding the EENT system. Derm: Wound noted coccyx. Musculoskeletal: patient appears to be bed bound with limited ROM in lower extremities. 16:30 Reassessment: Patient appears in no apparent distress at this time. No changes from jd3 previously documented assessment. Patient and/or family updated on plan of care and expected duration. Pain level reassessed. 17:30 Reassessment: Patient appears in no apparent distress at this time. No changes from jd3 previously documented assessment. Patient and/or family updated on plan of care and expected duration. Pain level reassessed. 18:08 Reassessment: Patient appears in no apparent distress at this time. No changes from jd3 previously documented assessment. Patient and/or family updated on plan of care and expected duration. Pain level reassessed. report given to Jimmy for nurse to nurse report at [facility] for pt discharge. 18:50 Reassessment: EMS at bedside to transfer patient back to intermediate. ap3 Vital Signs: 17:32 BP 170 / 132; ap3 18:09 BP 161 / 113; Pulse 97; Resp 17 S; Temp 98.7(TE); Pulse Ox 97% on R/A; jd3 ED Course: 15:26 Patient arrived in ED. ap3 15:28 Triage completed. ap3 15:28 Patient has correct armband on for positive identification. Bed in low position. Call ap3 light in reach. Side rails up X2. Pulse ox on. NIBP on. Door closed. Noise minimized. 15:28 Arm band placed on right wrist. ap3 15:32 Warren Balderas, NOEL is Primary Nurse. jd3 15:32 Roland Morse PA is PHCP. [facility] 15:32 Darrell Cummins MD is Attending Physician. [facility] 16:42 ENTEROSTOMY TUBE CHECK W/CONTR In Process Unspecified. EDMS 17:10 PHCP role handed off by Roland Morse PA jr8 17:10 Jamison Hernandez PA is PHCP. jr8 18:11 G tube replacement. Patient did not have IV access during this emergency room visit. jd3 Administered Medications: No medications were administered Outcome: 17:51 Discharge ordered by MD. barry 18:49 Discharged to intermediate. ap3 18:49 Condition: good 18:49 Discharge instructions given to intermediate, EMS, Instructed on discharge instructions, Demonstrated understanding of instructions. 18:59 Patient left the ED. ap3 Signatures: Dispatcher [employer] EDMS Roland Morse PA PA Jamison Saxena PA PA jrWarren Davis RN RN Karis Russ RN RN ap3 Corrections: (The following items were deleted from the chart) 18:09 18:06 Reassessment: Patient appears in no apparent distress at this time. Patient jd3 and/or family updated on plan of care and expected duration. Pain level reassessed. Patient is alert, oriented x 3, equal unlabored respirations, skin warm/dry/pink. jd3
--- NOTE | 2021-02-26 17:52 | RAD REPORT ---
EXAM DESCRIPTION: RAD - ENTEROSTOMY TUBE CHECK W/CONTR - 02/26/2021 4:42 pm CLINICAL HISTORY: g-tube check COMPARISON: ENTEROSTOMY TUBE CHECK W/CONTR dated 02/14/2021 FINDINGS: The gastrostomy tube overlies the stomach. Administration of enteric contrast and outlines the stomach confirming an intragastric positioning. The tube does angle towards the pylorus. IMPRESSION: Gastrostomy tube tip confirmed in the stomach. The gastrostomy is angled towards the pyl orus.
--- NOTE | 2021-02-26 17:52 | EDPHYS ---
Physician Documentation [facility] Name: Zbigniew Mitchell Age: 75 yrs Sex: Male : 1945 Arrival Date: 02/26/2021 Time: 15:26 Bed 5 Private MD: ED Physician Darrell Cummins HPI: 02/26 15:36 This 75 yrs old Male presents to ER via EMS with complaints of Problem With jmm Feeding Tube. 15:36 Onset: The symptoms/episode began/occurred today. The symptoms do not radiate. jmm Associated signs and symptoms: Pertinent negatives: chest pain, diarrhea, shortness of breath, vomiting. Feeding tube has stopped working. Denies vomiting, diarrhea. . Historical: - Allergies: 15:32 PENICILLINS; ap3 - Home Meds: 15:32 Aricept 10 mg Oral tab 1 tab nightly [Active]; Dilantin 100 mg Oral 2 tab twice a day ap3 [Active]; Eliquis 5 mg Oral tab 0.5 tab 2 times per day [Active]; furosemide 20 mg Oral tab 1 tab once daily [Active]; Miralax 17 gram Oral pwpk 1 packet once daily [Active]; Neurontin 100 mg Oral cap nightly [Active]; Depakote ER 500 mg Oral Tb24 2 tabs nightly [Active]; Norvasc 2.5 mg Oral tab 1 tab twice a day [Active]; nitroglycerin 0.4 mg Oral cpER PRN [Active]; Eliquis 2.5 mg Oral tab 1 tab 2 times per day [Active]; Vitamin C 500 mg oral tab 500 mg daily [Active]; Aspercreme (lidocaine) 4 % topical ptmd daily [Active]; Vitamin D Oral 2000 unit daily [Active]; docusate sodium 100 mg Oral cap 2 times per day [Active]; famotidine 20 mg Oral tab every 12 hours [Active]; folic acid 1 mg Oral tab 1 tab once daily [Active]; hydroxyzine HCl 25 mg Oral tab bid [Active]; magnesium oxide 400 mg magnesium Oral cap twice a day [Active]; megestrol 400 mg/10 mL (10 mL) Oral susp once daily [Active]; mupirocin 2 % topical oint twice daily [Active]; Neurontin 100 mg Oral cap 3 times per day [Active]; Victor 5-325 mg Oral tab every 7 hours PRN for pain [Active]; potassium chloride 10 mEq Oral cpER 1 cap once daily [Active]; Prozac 40 mg Oral cap 1 cap once daily [Active]; Synthroid 150 mcg Oral tab 1 tab once daily [Active]; trazodone 100 mg Oral tab 1 tab at bedtime [Active]; valproic acid 250 mg Oral cap twice daily [Active]; zinc sulfate 220 mg Oral cap daily [Active]; omeprazole 20 mg Oral cpDR 1 cap once daily [Active]; Dilantin 100 mg capsule Oral 100 mg twice a day [Active]; metoprolol tartrate 25 mg Oral tab 1 tab 2 times per day [Active]; Synthroid 150 mcg Oral tab 1 tab in the morning [Active]; - PMHx: 15:32 Atrial Fib; Bipolar disorder; Bronchitis; Cervicalgia; Chronic pain; constipation; ap3 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 - Social history:: Smoking status: Patient denies any tobacco usage or history of. ROS: 15:36 Constitutional: Negative for fever, chills, and weight loss, Cardiovascular: Negative jmm for chest pain, palpitations, and edema, Respiratory: Negative for shortness of breath, cough, wheezing, and pleuritic chest pain, Abdomen/GI: Negative for abdominal pain, nausea, vomiting, diarrhea, and constipation. 15:36 All other systems are negative. Exam: 15:36 Head/Face: atraumatic. Eyes: EOMI, no conjunctival erythema appreciated ENT: Moist jmm Mucus Membranes Neck: Trachea midline, Supple Chest/axilla: Normal chest wall appearance and motion. Cardiovascular: Regular rate and rhythm. No edema appreciated Respiratory: Normal respirations, no respiratory distress appreciated 15:36 Skin: General appearance color normal MS/ Extremity: Moves all extremities, no obvious deformities appreciated, no edema noted to the lower extremities 15:36 Constitutional: The patient appears in no acute distress, alert, awake. 15:36 Abdomen/GI: feeding tube noted to the abdomen. 15:36 Neuro: Motor: is normal. 15:36 Psych: Behavior/mood is pleasant, cooperative. Vital Signs: 17:32 BP 170 / 132; ap3 18:09 BP 161 / 113; Pulse 97; Resp 17 S; Temp 98.7(TE); Pulse Ox 97% on R/A; jd3 MDM: 15:36 [facility] medically [facility]. [facility] 17:49 Data reviewed: vital signs, nurses notes, radiologic studies, plain films. Data jr8 interpreted: Pulse oximetry: on room air is 96 %. Interpretation: normal. Test interpretation: by ED physician or midlevel provider: plain radiologic studies, Gastrostomy tube placed. Contrast was given through the tube on plain film. Looks well positioned.. 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 02/26 16:21 Order name: ENTEROSTOMY TUBE CHECK W/CONTR; Complete Time: 18:16 EDMS Administered Medications: No medications were administered Disposition: 02/27 07:27 Co-signature as Attending Physician, Darrell Cummins MD I agree with the assessment and [facility] plan of care. Disposition Summary: 02/26/21 17:51 Discharge Ordered Location: Home [facility] Problem: new jr8 Symptoms: have improved jr8 Condition: Stable jr8 Diagnosis - Encounter for attention to gastrostomy jr8 Followup: jr8 - With: Private Physician - When: 2 - 3 days - Reason: Recheck today's complaints, Continuance of care, Re-evaluation by your physician Discharge Instructions: - Discharge Summary Sheet jr8 - Gastrostomy Tube Replacement jr8 Forms: - Medication Reconciliation Form jr8 - Thank You Letter jr8 - Antibiotic Education jr8 - Prescription Opioid Use jr8 Signatures: Dispatcher [employer] EDMS Darrell Cummins MD MD cha Mickail, Joel, PA PA jmm Roszak, Josh, PA PA jr8 Warren Balderas RN RN jd3 Karis Lux RN RN ap3 Corrections: (The following items were deleted from the chart) 02/26 16:21 15:56 Abdomen 1 View (KUB)+[id number] ordered. EDMS EDMS
[2021-02-26 19:06] VITALS: BP 161/113; TEMP 98.7; O2SAT 97
== END 2021-02-26 18:59 | disposition home or self-care (01) ==
LOC: ER 15:14
DX: K94.23 Gastrostomy malfunction (principal)
CPT/HCPCS: 49465; 99283

== ENCOUNTER 2021-03-02 06:08 | Emergency (ER) | payer OTHER ==
--- OUTSIDE RECORDS SUMMARY | 2021-03-02 06:10 | XMS REPORT | Continuity of Care Document ---
:1945 Author Organization [facility] t Address [address] [place] [id number] Care Team Providers Name Role Phone Unavailable [...]
[2021-03-02 08:11] LABS: Basophils % 0.6 % (0-1.3); Lymphocytes % 16.5 % (15.3-44.8); MPV 6.9 fL (7.6-11.3); RBC Red Blood Cell Count 3.78 M/uL (4.33-5.43)
[2021-03-02 08:14] LABS: Protime INR 1.3
--- NOTE | 2021-03-02 08:44 | RAD REPORT ---
EXAM DESCRIPTION: RAD - Chest Single View - 03/02/2021 8:30 am CLINICAL HISTORY: COUGH COMPARISON: Chest Single View dated 12/21/2020; Chest Single View dated 12/15/2020; Chest Single View dated 11/25/2020; Chest Single View dated 10/19/2019 FINDINGS: Linear scarring versus subsegmental atelectasis in the left lung. The lungs are otherwise clear. The heart size is within normal limits.No acute osseous abnormality. No significant pleural ef fusions or pneumothorax. Partially imaged plate and screw fixation hardware in the left humerus. IMPRESSION: No acute cardiopulmonary disease.
[2021-03-02 08:46] LABS: ALT/SGPT 16 U/L (12-78); AST/SGOT 24 U/L (15-37); Alkaline Phosphatase 72 U/L (45-117); BUN Blood Urea Nitrogen 15 mg/dL (7-18); Bicarbonate 28 mmol/L (21-32); Bilirubin Direct 0.1 mg/dL (0-0.2); Bilirubin Total 0.3 mg/dL (0.2-1.0); Glucose Level 75 mg/dL (74-106); Potassium 4.3 mmol/L (3.5-5.1); Sodium Level 140 mmol/L (136-145)
[2021-03-02 08:47] LABS: Albumin 2.1 g/dL (3.4-5.0); Magnesium 2.1 mg/dL (1.8-2.4); NT PRO-BNP 1991 pg/mL (<450); Phenytoin (Dilantin) Level 3.5 ug/mL (10.0-20.0); Protein, Total 9.1 g/dL (6.4-8.2); Troponin (Emerg Dept Use Only) < 0.02 ng/mL (0.0-0.045); Valproic Acid (Depakene) Level 50.2 ug/mL (50-100)
[2021-03-02] MEDS ORDERED: CEFTRIAXONE/SWI 1gm 1 GM/10 ML SYR ONE (09:58)
[2021-03-02] MEDS ORDERED: NA CHLORIDE 0.9% 1,000 ML ONE (09:58)
--- NOTE | 2021-03-02 10:43 | ER ---
Nurse's Notes [facility] Name: Zbigniew Mitchell Age: 75 yrs Sex: Male : 1945 Arrival Date: 03/02/2021 Time: 06:21 Bed 8 Private MD: Diagnosis: Cyst of epididymis;Epididymitis-mass vs early abscess Presentation: 03/02 06:05 Chief complaint: EMS states: Called for patient with mass on scrotum, noticed by lp1 care home staff this AM. 06:05 Coronavirus screen: Client denies travel out of the [place] in the last 14 days. At this lp1 time, the client does not indicate any symptoms associated with coronavirus-19. Ebola Screen: No symptoms or risks identified at this time. Initial Sepsis Screen: Does the patient meet any 2 criteria? No. Patient's initial sepsis screen is negative. Does the patient have a suspected source of infection? No. Patient's initial sepsis screen is negative. Risk Assessment: Do you want to hurt yourself or someone else? Patient reports no desire to harm self or others. Onset of symptoms was March 02, 2021. 06:05 Method Of Arrival: EMS: [facility] 1 06:05 Acuity: ANDRE 3 lp1 Triage Assessment: 06:15 General: Appears in no apparent distress. Behavior is calm. Neuro: Level of lp1 Consciousness is awake, obeys commands, Oriented to person, place. Cardiovascular: Patient's skin is warm and dry. Respiratory: Respiratory effort is even, unlabored. Historical: - Allergies: 06:30 PENICILLINS; lp1 - Home Meds: 06:30 Aricept 10 mg Oral tab 1 tab nightly [Active]; Aspercreme (lidocaine) 4 % Topical ptmd lp1 daily [Active]; Vitamin C 500 mg Oral tab 500 mg daily [Active]; Dilantin 100 mg capsule Oral 100 mg every 8 hours [Active]; docusate sodium 100 mg Oral cap 2 times per day [Active]; Eliquis 2.5 mg Oral tab 1 tab 2 times per day [Active]; famotidine 20 mg Oral tab every 12 hours [Active]; folic acid 1 mg Oral tab 1 tab once daily [Active]; furosemide 20 mg Oral tab 1 tab once daily [Active]; hydroxyzine HCl 25 mg Oral tab BID [Active]; magnesium oxide 400 mg magnesium Oral cap twice a day [Active]; megestrol 400 mg/10 mL (10 mL) Oral susp once daily [Active]; Miralax 17 gram Oral pwpk 1 packet once daily [Active]; Neurontin 100 mg Oral cap 3 times per day [Active]; 06:33 nitroglycerin 0.4 mg Oral cpER PRN [Active]; [place] 5-325 mg Oral tab Q8h for Pain lp1 [Active]; potassium chloride 10 mEq Oral cpER 1 cap once daily [Active]; Prozac 40 mg Oral cap 1 cap once daily [Active]; Synthroid 150 mcg Oral tab 1 tab once daily [Active]; trazodone 100 mg Oral tab 1 tab at bedtime [Active]; valproic acid 250 mg Oral cap twice daily [Active]; zinc sulfate 220 mg Oral cap daily [Active]; omeprazole 20 mg Oral cpDR 1 cap once daily [Active]; Depakote ER 500 mg Oral Tb24 2 tabs nightly [Active]; - PMHx: 06:30 Atrial Fib; Bipolar disorder; Bronchitis; Cervicalgia; Chronic pain; constipation; 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 - Social history:: Smoking status: unknown. Screenin:37 Abuse screen: Denies threats or abuse. Denies injuries from another. Nutritional lp1 screening: No deficits noted. Tuberculosis screening: No symptoms or risk factors identified. Fall Risk Total Aleman Fall Scale indicates High Risk Score (45 or more points). Fall prevention measures have been instituted. Side Rails Up X 2 Placed Close to Nursing Station Frequent Obs/Assessments Occuring. Assessment: 07:30 General: Appears in no apparent distress. uncomfortable, Behavior is cooperative. Pain: jl7 Denies pain. Neuro: Level of Consciousness is awake, alert, obeys commands, Oriented to person. Cardiovascular: Patient's skin is warm and dry. Respiratory: Airway is patent Respiratory effort is even, unlabored, Respiratory pattern is regular, symmetrical. : Gray in place to gravity drainage Urine is cloudy, Penile discharge is Swelling noted on scrotum. Derm: Skin is pink, warm \T\ dry. 09:48 Reassessment: US at bedside. jl7 Vital Signs: 06:05 BP 104 / 83; Pulse 110; Resp 20; Temp 98.5(O); Pulse Ox 99% on R/A; Weight 113.4 kg (R);lp1 ED Course: 06:21 Patient arrived in ED. lp1 06:29 Madison Qiuntero, RN is Primary Nurse. lp1 06:30 Triage completed. lp1 06:30 Arm band placed on. lp1 06:37 Patient has correct armband on for positive identification. Side rails up X2. lp1 07:17 Sivakumar Paniagua FNP-C is PHCP. la1 07:19 Darrlel Cummins MD is Attending Physician. zelda 07:30 desk monitor on. Pulse ox on. NIBP on. jl7 07:30 Initial lab(s) drawn, by me, sent to lab. Inserted saline lock: 22 gauge in left hand, jl7 using aseptic technique. Blood collected. 08:30 XRAY Chest (1 view) In Process Unspecified. EDMS 08:35 EKG done, by ED staff, reviewed by Darrell Cummins MD. em1 09:55 Gray cath removed intact, balloon deflated. jl7 10:00 Gray cath inserted, using sterile technique, 18 Fr., by in, balloon inflated, to jl7 gravity drainage, urine specimen collected. returned cloudy urine. Patient tolerated poorly. 10:14 US Scrotum Testicles In Process Unspecified. EDMS 10:41 Naeem Hill MD is Referral Physician. zelda 11:30 No provider procedures requiring assistance completed. IV discontinued, intact, jl7 bleeding controlled, No redness/swelling at site. Pressure dressing applied. Administered Medications: 09:43 Drug: NS 0.9% 1000 ml Route: IV; Rate: 1 bolus; Site: left hand; jl7 11:00 Follow up: Response: No adverse reaction; IV Status: Completed infusion; IV Intake: jl7 1000ml 09:43 Drug: Rocephin (cefTRIAXone) 1 grams Route: IV; Rate: per protocol; Site: left hand; jl7 09:46 Follow up: Response: No adverse reaction; IV Status: Completed infusion jl7 11:26 Drug: Fosphenytoin 1 grams Route: IVPB; Site: left hand; jl7 11:43 Follow up: Response: No adverse reaction; IV Status: Completed infusion jl7 11:26 Drug: Clindamycin 900 mg Route: IVPB; Infused Over: 30 mins; Site: left hand; jl7 11:56 Follow up: Response: No adverse reaction; IV Status: Completed infusion jl7 11:27 Drug: LevOfloxacin 500 mg Route: PO; jl7 12:10 Follow up: Response: No adverse reaction jl7 Intake: 11:00 IV: 1000ml; Total: 1000ml. 7 Outcome: 10:43 Discharge ordered by MD. ndiaye 11:30 Discharged to care home. Report called to [facility] 11:30 Condition: stable 11:30 Discharge instructions given to patient, care home, Instructed on discharge instructions, follow up and referral plans. medication usage, Demonstrated understanding of instructions, follow-up care, medications, Prescriptions given X 2. 12:07 Patient left the ED. kg Signatures: Dispatcher [employer] EDMS Darrell Cummins MD MD cha Martinez, Eric em1 Madison Quintero, RN RN lp1 Sivakumar Paniagua, [employer]-C [employer]-Cla1 Mario Hamlin RN RN jl7 Christy Anand RN RN kg
--- NOTE | 2021-03-02 10:43 | EDPHYS ---
Physician Documentation [facility] Name: Zbigniew Mitchell Age: 75 yrs Sex: Male : 1945 Arrival Date: 03/02/2021 Time: 06:21 Bed 8 Private MD: ED Physician Darrell Cummins HPI: 03/02 07:42 This 75 yrs old Male presents to ER via EMS with complaints of right testicle zleda pain sent from me. 07:42 The patient presents with swelling, tenderness, that is moderate, of the right zelda testicle. Onset: The symptoms/episode began/occurred 1 day(s) ago. Modifying factors: The symptoms are alleviated by remaining still, the symptoms are aggravated by movement, pressure. Associated signs and symptoms: The patient has no apparent associated signs or symptoms. Severity of symptoms: At their worst the symptoms were moderate, in the emergency department the symptoms are unchanged. It is unknown whether or not the patient has had similar symptoms in the past. Historical: - Allergies: 06:30 PENICILLINS; lp1 - Home Meds: 06:30 Aricept 10 mg Oral tab 1 tab nightly [Active]; Aspercreme (lidocaine) 4 % Topical ptmd lp1 daily [Active]; Vitamin C 500 mg Oral tab 500 mg daily [Active]; Dilantin 100 mg capsule Oral 100 mg every 8 hours [Active]; docusate sodium 100 mg Oral cap 2 times per day [Active]; Eliquis 2.5 mg Oral tab 1 tab 2 times per day [Active]; famotidine 20 mg Oral tab every 12 hours [Active]; folic acid 1 mg Oral tab 1 tab once daily [Active]; furosemide 20 mg Oral tab 1 tab once daily [Active]; hydroxyzine HCl 25 mg Oral tab BID [Active]; magnesium oxide 400 mg magnesium Oral cap twice a day [Active]; megestrol 400 mg/10 mL (10 mL) Oral susp once daily [Active]; Miralax 17 gram Oral pwpk 1 packet once daily [Active]; Neurontin 100 mg Oral cap 3 times per day [Active]; 06:33 nitroglycerin 0.4 mg Oral cpER PRN [Active]; [place] 5-325 mg Oral tab Q8h for Pain lp1 [Active]; potassium chloride 10 mEq Oral cpER 1 cap once daily [Active]; Prozac 40 mg Oral cap 1 cap once daily [Active]; Synthroid 150 mcg Oral tab 1 tab once daily [Active]; trazodone 100 mg Oral tab 1 tab at bedtime [Active]; valproic acid 250 mg Oral cap twice daily [Active]; zinc sulfate 220 mg Oral cap daily [Active]; omeprazole 20 mg Oral cpDR 1 cap once daily [Active]; Depakote ER 500 mg Oral Tb24 2 tabs nightly [Active]; - PMHx: 06:30 Atrial Fib; Bipolar disorder; Bronchitis; Cervicalgia; Chronic pain; constipation; 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 - Social history:: Smoking status: unknown. ROS: 07:44 Constitutional: Negative for fever, chills, and weight loss, Eyes: Negative for injury, zelda pain, redness, and discharge, Neck: Negative for injury, pain, and swelling, Cardiovascular: Negative for chest pain, palpitations, and edema, Respiratory: Negative for shortness of breath, cough, wheezing, and pleuritic chest pain, Abdomen/GI: Negative for abdominal pain, nausea, vomiting, diarrhea, and constipation, Back: Negative for injury and pain, MS/Extremity: Negative for injury and deformity, Skin: Negative for injury, rash, and discoloration, Neuro: Negative for headache, weakness, numbness, tingling, and seizure, Psych: Negative for depression, anxiety, suicide ideation, homicidal ideation, and hallucinations, Allergy/Immunology: Negative for hives, rash, and allergies, Endocrine: Negative for neck swelling, polydipsia, polyuria, polyphagia, and marked weight changes, Hematologic/Lymphatic: Negative for swollen nodes, abnormal bleeding, and unusual bruising. 07:44 ENT: Positive for dry mm. 07:44 : Positive for testicular pain of the left testicle. Exam: 07:44 Constitutional: This is a well developed, well nourished patient who is awake, alert, zelda and in no acute distress. Head/Face: Normocephalic, atraumatic. Eyes: Pupils equal round and reactive to light, extra-ocular motions intact. Lids and lashes normal. Conjunctiva and sclera are non-icteric and not injected. Cornea within normal limits. Periorbital areas with no swelling, redness, or edema. Neck: Trachea midline, no thyromegaly or masses palpated, and no cervical lymphadenopathy. Supple, full range of motion without nuchal rigidity, or vertebral point tenderness. No Meningismus. Chest/axilla: Normal chest wall appearance and motion. Nontender with no deformity. No lesions are appreciated. Respiratory: Lungs have equal breath sounds bilaterally, clear to auscultation and percussion. No rales, rhonchi or wheezes noted. No increased work of breathing, no retractions or nasal flaring. Abdomen/GI: Soft, non-tender, with normal bowel sounds. No distension or tympany. No guarding or rebound. No evidence of tenderness throughout. Back: No spinal tenderness. No costovertebral tenderness. Full range of motion. Skin: Warm, dry with normal turgor. Normal color with no rashes, no lesions, and no evidence of cellulitis. MS/ Extremity: Pulses equal, no cyanosis. Neurovascular intact. Full, normal range of motion. Psych: Awake, alert, with orientation to person, place and time. Behavior, mood, and affect are within normal limits. 07:44 ENT: Mouth: Oral mucosa: dry, Gums: normal with healthy appearance, Tongue: is normal, Posterior pharynx: is normal, no acute changes, Airway: normal, no evidence of obstruction. 07:44 : Male external genitalia: swelling, tenderness, of the right testicle is noted, Bladder: is normal, Rectal exam: is normal, Sexual behavior: the patient is not sexually active. 07:44 Musculoskeletal/extremity: ROM: limited active range of motion, limited passive range of motion, Circulation is intact in all extremities. Sensation intact. Compartment Syndrome exam of affected extremity: is normal. DVT Exam: no swelling, no tenderness, negative Homans' sign noted on exam, no appreciated bluish discoloration, no erythema, no increased warmth, pain. 09:19 ECG was reviewed by the Attending Physician. zelda Vital Signs: 06:05 BP 104 / 83; Pulse 110; Resp 20; Temp 98.5(O); Pulse Ox 99% on R/A; Weight 113.4 kg (R);lp1 MDM: 07:19 Patient medically screened. zelda 07:47 Differential diagnosis: nonspecific abdominal pain. Data reviewed: vital signs, nurses zelda notes, lab test result(s), EKG, radiologic studies, plain films, ultrasound. Data interpreted: teletypesetter monitor: rate is 110 beats/min, rhythm is regular, Pulse oximetry: on room air is 99 %. Test interpretation: by ED physician or midlevel provider: ECG, plain radiologic studies. Counseling: I had a detailed discussion with the patient and/or guardian regarding: the historical points, exam findings, and any diagnostic results supporting the discharge/admit diagnosis, lab results, radiology results, the need for outpatient follow up, for definitive care, 03/02 07:40 Order name: Basic Metabolic Panel; Complete Time: 09:06 [facility] 03/02 07:40 Order name: CBC with Diff; Complete Time: 08:40 [facility] 03/02 07:40 Order name: LFT's; Complete Time: 09:06 [facility] 03/02 07:40 Order name: Magnesium; Complete Time: 09:06 [facility] 03/02 07:40 Order name: NT PRO-BNP; Complete Time: 09:06 [facility] 03/02 07:40 Order name: PT-INR; Complete Time: 09:31 [facility] 03/02 07:40 Order name: Troponin (emerg Dept Use Only); Complete Time: 09:06 [facility] 03/02 07:40 Order name: XRAY Chest (1 view); Complete Time: 09:06 [facility] 03/02 07:40 Order name: Depakote; Complete Time: 09:06 [facility] 03/02 07:40 Order name: Dilantin; Complete Time: 09:06 [facility] 03/02 07:40 Order name: US Scrotum Testicles; Complete Time: 10:45 [facility] 03/02 07:40 Order name: Urine Culture [facility] 03/02 07:40 Order name: EKG; Complete Time: 07:41 [facility] 03/02 07:40 Order name: Cardiac monitoring; Complete Time: 09:42 [facility] 03/02 07:40 Order name: EKG - Nurse/Tech; Complete Time: 08:34 [facility] 03/02 07:40 Order name: IV Saline Lock; Complete Time: 08:25 [facility] 03/02 07:40 Order name: Labs collected and sent; Complete Time: 08:25 [facility] 03/02 07:40 Order name: O2 Per Protocol; Complete Time: 08:26 zelda 03/02 07:40 Order name: O2 Sat Monitoring; Complete Time: 08: zelda 03/02 07:40 Order name: Urine Dipstick-Ancillary (obtain specimen); Complete Time: 11:27 zelda 03/02 10:38 Order name: Gray: exchange; Complete Time: 10:42 zelda EC:19 Rate is 117 beats/min. Rhythm is regular. QRS [place] is Normal. [place] interval is normal. zelda QRS interval is normal. QT interval is normal. No Q waves. T waves are Normal. No ST changes noted. Clinical impression: NSR w/ Non-specific ST/T Changes and No evidence of ischemia. Interpreted by me. Reviewed by me. Administered Medications: 09:43 Drug: NS 0.9% 1000 ml Route: IV; Rate: 1 bolus; Site: left hand; jl7 11:00 Follow up: Response: No adverse reaction; IV Status: Completed infusion; IV Intake: jl7 1000ml 09:43 Drug: Rocephin (cefTRIAXone) 1 grams Route: IV; Rate: per protocol; Site: left hand; jl7 09:46 Follow up: Response: No adverse reaction; IV Status: Completed infusion jl7 11:26 Drug: Fosphenytoin 1 grams Route: IVPB; Site: left hand; jl7 11:43 Follow up: Response: No adverse reaction; IV Status: Completed infusion jl7 11:26 Drug: Clindamycin 900 mg Route: IVPB; Infused Over: 30 mins; Site: left hand; jl7 11:56 Follow up: Response: No adverse reaction; IV Status: Completed infusion jl7 11:27 Drug: LevOfloxacin 500 mg Route: PO; jl7 12:10 Follow up: Response: No adverse reaction jl7 Disposition Summary: 03/02/21 10:43 Discharge Ordered Location: Home zelda Problem: new zelda Symptoms: have improved zelda Condition: Stable zelda Diagnosis - Cyst of epididymis zelda - Epididymitis - mass vs early abscess(03/02/21 10:48) zelda Followup: zelda - With: Private Physician - When: 2 - 3 days - Reason: Recheck today's complaints, Continuance of care, Re-evaluation by your physician Followup: zelda - With: Naeem Hill MD - When: 2 - 3 days - Reason: Recheck today's complaints, Re-evaluation by your physician Discharge Instructions: - Discharge Summary Sheet zelda - Epididymitis zelda - Testicular Self-Exam zelda - Seizure, Adult zelda Forms: - Medication Reconciliation Form zelda - Thank You Letter zelda - Antibiotic Education zelda - Prescription Opioid Use [facility] Prescriptions: - levofloxacin 500 mg Oral Tablet - take 1 tablet by ORAL route once daily for 8-10 days; 9 tablet; Refills: 0, zelda Product Selection Permitted - Clindamycin HCl 300 mg Oral Capsule - take 1 capsule by ORAL route every 6 hours for 7 days; 28 capsule; Refills: 0, zelda Product Selection Permitted Signatures: Dispatcher [employer] EDDarrell Evans MD MD cha Pena, Laura, RN RN lp1 Mario Hamlin RN RN jl7 Corrections: (The following items were deleted from the chart) 10:48 10:43 Epididymitis zelda ndiaye
--- NOTE | 2021-03-02 10:44 | RAD REPORT ---
EXAM DESCRIPTION: US - Scrotum Testicles - 03/02/2021 10:26 am CLINICAL HISTORY: SWELLING COMPARISON: Pelvis dated 02/18/2021 FINDINGS: Bilateral testicular blood flow is present. The right testicle measures 4 x 2.7 x 3.2 cent imeters with volume of 18 cc. The left testicle measures 3.1 x 2.1 x 2.5 centimeters with volume of 8 .6 cc. There is an area hypoechogenicity in the lower margin of the right testicle with increased blo od flow that measures approximately 17 millimeters. There are a couple of echogenic foci noted. Blood flow is robust peripherally but not centrally. . The right testicle is asymmetrically enlarged. Smal l bilateral epididymal cysts. IMPRESSION: Bilateral testicular blood flow is present. Heterogeneous structure in the right testicl e. In the acute phase, this could represent focal orchitis or intra testicular abscess. Neoplasm diff icult to entirely exclude, however. Recommend urologic consultation.
[2021-03-02] MEDS ORDERED: NA CHLORIDE 0.9% 100 ML ONE (11:27)
[2021-03-02] MEDS ORDERED: levoFLOXacin 500 MG TAB ONE (11:27)
[2021-03-02] MEDS ORDERED: CLINDAMYCIN 900MG/D5W 900 MG/50 ML IVPB IV ONE (11:27)
[2021-03-02] MEDS ORDERED: FOSPHENYTOIN PE 500 MG/10 ML VIAL ONE (11:27)
== END 2021-03-02 12:07 | disposition home or self-care (01) ==
LOC: ER 06:08
DX: N50.3 Cyst of epididymis (principal); N45.1 Epididymitis; I10 Essential (primary) hypertension; I48.91 Unspecified atrial fibrillation; G40.909 Epilepsy, unspecified, not intractable, without status epilepticus; F03.90 Unspecified dementia, unspecified severity, without behavioral disturbance, psychotic disturbance, mood disturbance, and anxiety; Z79.01 Long term (current) use of anticoagulants; Z88.0 Allergy status to penicillin
CPT/HCPCS: 96365; 96361; 96368; 93005; 87088; 85025; 87086; 80048; 36415; 83735; 85610; 80076; 80164; 80185; 87077; 87186; 84484; 83880; 71045; 76870; 51702; 96375; 99285; Q2009; J0696; J7030

== ENCOUNTER 2021-03-28 10:25 | Inpatient (IN) | payer OTHER ==
--- OUTSIDE RECORDS SUMMARY | 2021-03-28 10:28 | XMS REPORT | Continuity of Care Document ---
:1945 Author Organization [facility] t Address [address] [place] [address] [place] [id number] Care Team Providers Name Role Phone Unavailable [...]
[2021-03-28] MEDS ORDERED: METHYLPREDNISOLONE 125 MG INJ ONE (11:22)
[2021-03-28] MEDS ORDERED: ENOXAPARIN 80 MG/0.8 ML SQ ONE (11:22)
[2021-03-28] MEDS ORDERED: NA CHLORIDE 0.9% 3,000 ML ONE (11:23)
[2021-03-28] MEDS ORDERED: CEFEPIME/SWI 1gm 10 ML ONE (11:23)
[2021-03-28] MEDS ORDERED: VANCOMYCIN 1 GM/VIAL ONE (11:23)
--- NOTE | 2021-03-28 11:53 | RAD REPORT ---
EXAM DESCRIPTION: RAD - Chest Single View - 03/28/2021 11:31 am CLINICAL HISTORY: CONGESTION Chest pain. COMPARISON: Chest Single View dated 03/02/2021; Chest Single View dated 12/21/2020; Chest Single View d ated 12/15/2020; Chest Single View dated 11/25/2020 FINDINGS: Portable technique limits examination quality. Mild to moderate bilateral interstitial lung opacities are present likely representing viral infectio n/bronchitis. The heart is normal in size. No displaced fractures.
--- NOTE | 2021-03-28 12:00 | RAD REPORT ---
EXAM DESCRIPTION: CT - Head Brain Wo Cont - 03/28/2021 11:42 am CLINICAL HISTORY: CONFUSED Headache, drowsiness COMPARISON: Head Brain Wo Cont dated 12/15/2020; Head Brain Wo Cont dated 11/25/2020 TECHNIQUE: All CT scans are performed using dose optimization technique as appropriate and may inclu de automated exposure control or mA/KV adjustment according to patient size. FINDINGS: No intracranial hemorrhage or extra-axial fluid collection.Moderate generalized brain atro phy is seen, unchanged since comparative study. Prominent ventricular dilatation is most likely resul t of the degree of brain atrophy. No areas of brain edema or evidence of midline shift. The paranasal sinuses and mastoids are clear. Occipital craniectomy changes again seen. IMPRESSION: No acute intracranial abnormality.
[2021-03-28 12:27] LABS: Arterial Blood Carboxyhemoglob 1.3 % (0-1.5); Blood O2 Saturation 86.7 % (92-98.5)
[2021-03-28 12:38] LABS: Urine Appearance TURBID (Clear); Urine Bilirubin ND (Negative); Urine Blood 3+ (Negative); Urine Color DK YELLOW (Yellow); Urine Glucose NEGATIVE (Negative); Urine Protein 2+ (Negative); Urine Specific Gravity 1.015 (1.005-1.030); Urine pH 5.5 (5.0-7.0)
[2021-03-28 12:39] LABS: Urine Bacteria >50 /HPF (NONE SEEN); Urine Microscopic Reflex NO UMIC; Urine RBC >50 /HPF (NONE SEEN); Urine Yeast MANY (NONE SEEN); Urine Yeast with Hyphae PRESENT
[2021-03-28 13:25] LABS: Absolute Lymphocytes (CBC) 0.7 K/uL (0.7-4.9); Basophils % 0.4 % (0-1.3); Hematocrit 41.4 % (39.6-49.0); Lymphocytes % 6.5 % (15.3-44.8); MPV 8.9 fL (7.6-11.3); RBC Red Blood Cell Count 3.94 M/uL (4.33-5.43)
[2021-03-28 13:35] LABS: Protime INR 1.32
[2021-03-28 13:46] LABS: ALT/SGPT 12 U/L (12-78); AST/SGOT 15 U/L (15-37); Alkaline Phosphatase 55 U/L (45-117); Amylase 44 U/L (25-115); BUN Blood Urea Nitrogen 48 mg/dL (7-18); Bicarbonate 27 mmol/L (21-32); Bilirubin Direct 0.4 mg/dL (0-0.2); Bilirubin Total 0.7 mg/dL (0.2-1.0); CKMB Creatine Kinase MB < 1.0 ng/mL (1.0-3.6); Creatine Phosphokinase 24 U/L (39-308); Glucose Level 134 mg/dL (74-106); Lipase 64 U/L (73-393); Potassium 3.9 mmol/L (3.5-5.1); Protein, Total 8.2 g/dL (6.4-8.2); Troponin (Emerg Dept Use Only) 0.16 ng/mL (0.0-0.045)
[2021-03-28 13:47] LABS: Sodium Level 167 mmol/L (136-145)
[2021-03-28 13:54] LABS: Blood Morphology Comment NOTED (NOT SEEN); Macrocytosis 1+; Platelet Estimate ADEQ; White Blood Cell Scan OK (OK)
--- NOTE | 2021-03-28 14:21 | ER ---
Nurse's Notes [facility] Name: Zbigniew Mitchell Age: 75 yrs Sex: Male : 1945 Arrival Date: 03/28/2021 Time: 10:42 Bed 14 Private MD: Diagnosis: Severe sepsis without septic shock;Acute cystitis;Viral pneumonia, unspecified-COVID - 19;Hypoxemia Presentation: 03/28 10:45 Chief complaint: EMS states: pt has been COVID+ X 10 days, dx with pneumonia, had low iw O2 today, was 85% on RA, EMS gave pt A\T\A treatment, up to 93% on tx, pt A\T\OX1 which is normal ,Afib RVR with rate 130 , hankins in place with dark urine, sediment noted in hankins tube, PEG site noted to have thick brown drainage, afebrile. Coronavirus screen: Client reports previous positive COVID test result. Ebola Screen: Patient negative for fever greater than or equal to 101.5 degrees Fahrenheit, and additional compatible Ebola Virus Disease symptoms Patient denies exposure to infectious person. Patient denies travel to an Ebola-affected area in the 21 days before illness onset. No symptoms or risks identified at this time. Onset of symptoms was March 28, 2021. 10:45 Method Of Arrival: EMS: [facility] iw 10:45 Acuity: ANDRE 2 iw 10:48 Initial Sepsis Screen: Does the patient meet any 2 criteria? RR > 20 per min. HR > 90 iw bpm. Does the patient have a suspected source of infection?. Risk Assessment: Do you want to hurt yourself or someone else? Unable to obtain. 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 - Social history:: Patient/guardian denies using alcohol, street drugs, The patient lives with family, Smoking status: unknown. - Family history:: not pertinent. Screenin:25 Abuse screen: Denies threats or abuse. Nutritional screening: No deficits noted. ll1 Tuberculosis screening: No symptoms or risk factors identified. Fall Risk IV access (20 points). Ambulatory Aid- Crutches/Cane/Walker (15 pts). Gait- Impaired (20 pts.). Total Aleman Fall Scale indicates High Risk Score (45 or more points). Fall prevention measures have been instituted. Side Rails Up X 2 Frequent Obs/Assessments Occuring As available patient and family educated on Fall Prevention Program and Strategies. Assessment: 11:00 General: Appears ill, Behavior is calm, cooperative, appropriate for age, Smells of. ll1 Pain: Denies pain. Neuro: No deficits noted. Cardiovascular: Heart tones S1 S2 Capillary refill < 3 seconds Clubbing of nail beds is absent Patient's skin is warm and dry. Rhythm is atrial fibrillation with rapid ventricular response. Respiratory: Airway is patent Trachea midline Respiratory effort is even, labored, Breath sounds are diminished bilaterally. Onset: The symptoms/episode began/occurred gradually, the patient has moderate shortness of breath. GI: No deficits noted. : No deficits noted. 12:00 Reassessment: Patient appears in no apparent distress at this time. No changes from ll1 previously documented assessment. Patient and/or family updated on plan of care and expected duration. Pain level reassessed. 13:00 Reassessment: No changes from previously documented assessment. Patient and/or family ll1 updated on plan of care and expected duration. Pain level reassessed. 14:00 Reassessment: No changes from previously documented assessment. Patient and/or family ll1 updated on plan of care and expected duration. Pain level reassessed. 15:00 Reassessment: No changes from previously documented assessment. Patient and/or family ll1 updated on plan of care and expected duration. Pain level reassessed. Patient is alert, oriented x 3, equal unlabored respirations, skin warm/dry/pink. 16:00 Reassessment: No changes from previously documented assessment. Patient and/or family ll1 updated on plan of care and expected duration. Pain level reassessed. Vital Signs: 10:48 BP 121 / 85; Pulse 130; Resp 30 S; Temp 97.9; Pulse Ox 93% on Nebulizer Mask; iw 12:17 Weight 127.01 kg (R); ll1 12:21 BP 140 / 98; Pulse 120; Resp 44; Pulse Ox 95% on Non-rebreather mask; ll1 13:16 BP 136 / 77; Pulse 96; Resp 30; Pulse Ox 92% on Venturi mask; ll1 14:24 BP 98 / 72; Pulse 92; Resp 29; Pulse Ox 92% ; ll1 15:45 BP 110 / 65; Pulse 90; Resp 30; Pulse Ox 95% ; ll1 ED Course: 10:42 Patient arrived in ED. iw 10:44 Sheba Tavera, NOEL is Primary Nurse. ll1 10:44 Arm band placed on Patient placed in an exam room, on a stretcher. ll1 10:45 Jessika Huitron MD is Attending Physician. ma2 10:47 Triage completed. iw 11:00 Patient has correct armband on for positive identification. Placed in gown. Bed in low ll1 position. Call light in reach. Side rails up X 1. security monitor on. Pulse ox on. NIBP on. 11:15 Missed attempt(s): 20 gauge in right antecubital area. Bleeding controlled, band aid dh3 applied, catheter tip intact. 11:20 Inserted saline lock: 22 gauge in left wrist, using aseptic technique. Blood collected. ll1 11:20 Initial lab(s) drawn, by ED staff, sent to lab. dh3 11:31 Chest Single View XRAY In Process Unspecified. EDMS 11:41 CT Head Brain wo Cont In Process Unspecified. EDMS 12:01 EKG done, by ED staff, reviewed by Jessika Huitron MD. dh3 13:[address] upon arrival. Urine specimen removed from port. ll1 14:20 Misha Bolden DO is Hospitalizing Provider. ma2 14:44 Patient tolerated well. Hankins cath removed intact, balloon deflated. ll1 14:44 Hankins cath inserted, using sterile technique, 16 Fr., by pr, balloon inflated, to ll1 gravity drainage. 17:51 called [facility] to request transport to [facility], 1 hr ETA. mt Administered Medications: 12:18 Drug: NS 0.9% (30 ml/kg) 30 ml/kg Route: IV; Rate: bolus; Site: left wrist; ll1 16:13 Follow up: Response: No adverse reaction; IV Status: Completed infusion; IV Intake: ll1 2000ml 12:19 Drug: vancoMYCIN 1 grams Route: IVPB; Infused Over: 2 hrs; Site: left wrist; ll1 13:56 Follow up: Response: No adverse reaction; IV Status: Completed infusion; IV Intake: ll1 1000ml 12:20 Drug: Cefepime 1 grams Route: IVPB; Rate: 200 ml/hr; Infused Over: 30 mins; Site: left ll1 wrist; 13:21 Follow up: Response: No adverse reaction; IV Status: Completed infusion; IV Intake: [id number] 12:20 Drug: Lovenox (enoxaparin) 70 mg Route: Sub-Q; Site: right lower abdomen; ll1 13:22 Follow up: Response: No adverse reaction ll1 12:20 Drug: SOLU-Medrol (methylPrednisoLONE) 125 mg Route: IVP; Site: left wrist; ll1 13:22 Follow up: Response: No adverse reaction ll1 15:31 Drug: D5-1/2 NS 1000 ml Route: IV; Rate: 100 ml/hr; Site: left wrist; ll1 Intake: 13:21 IV: 20ml; Total: 20ml. ll1 13:56 IV: 1000ml; Total: 1020ml. ll1 16:13 IV: 2000ml; Total: 3020ml. ll1 Outcome: 14:20 Decision to Hospitalize by Provider. ma2 20:32 Patient left the ED. jb4 Signatures: Dispatcher [employer] Ivanna Castellanos, Rik Cochran RN, RN RN jb4 Vita Parker mt, Deanna 3 Jessika Huitron MD MD wi2 Sheba Tavera RN RN 1
--- NOTE | 2021-03-28 14:21 | EDPHYS ---
Physician Documentation [facility] Name: Zbigniew Mitchell Age: 75 yrs Sex: Male : 1945 Arrival Date: 03/28/2021 Time: 10:42 Bed 14 Private MD: ED Physician Jessika Huitron HPI: 03/28 11:21 This 75 yrs old Male presents to ER via EMS with complaints of Breathing ma2 Difficulty, COVID +, low SPO2. 11:21 The patient has shortness of breath at rest. Onset: The symptoms/episode began/occurred ma2 gradually, 1 week(s) ago. Associated signs and symptoms: Pertinent positives: productive cough, Pertinent negatives: fever, hemoptysis, nausea. Severity of symptoms: At their worst the symptoms were severe in the emergency department the symptoms are unchanged. The patient has experienced similar episodes in the past. 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 - Social history:: Patient/guardian denies using alcohol, street drugs, The patient lives with family, Smoking status: unknown. - Family history:: not pertinent. ROS: 11:21 Constitutional: Negative for fever, chills, and weight loss. ma2 11:21 All other systems are negative. Exam: 11:21 Constitutional: This is a well developed, well nourished patient who is awake, alert, ma2 and in no acute distress. Head/Face: Normocephalic, atraumatic. Eyes: Pupils equal round and reactive to light, extra-ocular motions intact. Lids and lashes normal. Conjunctiva and sclera are non-icteric and not injected. Cornea within normal limits. Periorbital areas with no swelling, redness, or edema. ENT: Nares patent. No nasal discharge, no septal abnormalities noted. Tympanic membranes are normal and external auditory canals are clear. Oropharynx with no redness, swelling, or masses, exudates, or evidence of obstruction, uvula midline. Mucous membranes moist. Neck: Trachea midline, no thyromegaly or masses palpated, and no cervical lymphadenopathy. Supple, full range of motion without nuchal rigidity, or vertebral point tenderness. No Meningismus. Chest/axilla: Normal chest wall appearance and motion. Nontender with no deformity. No lesions are appreciated. Cardiovascular: Regular rate and rhythm with a normal S1 and S2. No gallops, murmurs, or rubs. Normal PMI, no JVD. No pulse deficits. Respiratory: Lungs have equal breath sounds bilaterally, clear to auscultation and percussion. No rales, rhonchi or wheezes noted. No increased work of breathing, no retractions or nasal flaring. Abdomen/GI: Soft, non-tender, with normal bowel sounds. No distension or tympany. No guarding or rebound. No evidence of tenderness throughout. Back: No spinal tenderness. No costovertebral tenderness. Full range of motion. Skin: Warm, dry with normal turgor. Normal color with no rashes, no lesions, and no evidence of cellulitis. MS/ Extremity: Pulses equal, no cyanosis. Neurovascular intact. Full, normal range of motion. Neuro: Awake and alert, GCS 15, oriented to person, place, time, and situation. Cranial nerves II-XII grossly intact. Motor strength 5/5 in all extremities. Sensory grossly intact. Cerebellar exam normal. Normal gait. 11:21 Constitutional: This is a well developed, well nourished patient who is awake, alert, ma2 and in no acute distress. ENT: Nares patent. No nasal discharge, no septal abnormalities noted. Tympanic membranes are normal and external auditory canals are clear. Oropharynx with no redness, swelling, or masses, exudates, or evidence of obstruction, uvula midline. Mucous membranes moist. Cardiovascular: Regular rate and rhythm with a normal S1 and S2. No gallops, murmurs, or rubs. Normal PMI, no JVD. No pulse deficits. Respiratory: Lungs have equal breath sounds bilaterally, clear to auscultation and percussion. No rales, rhonchi or wheezes noted. No increased work of breathing, no retractions or nasal flaring. Back: No spinal tenderness. No costovertebral tenderness. Full range of motion. Neuro: Awake and alert, GCS 15, oriented to person, place, time, and situation. Cranial nerves II-XII grossly intact. Motor strength 5/5 in all extremities. Sensory grossly intact. Cerebellar exam normal. Normal gait. 11:21 Cardiovascular: Rate: tachycardic, Rhythm: irregularly irregular, Pulses: Heart sounds: normal, Edema: is not appreciated, Bilateral blood pressure: is equal. 11:21 Respiratory: Respirations: labored breathing, Breath sounds: rhonchi, that are moderate, are heard diffusely, + upper airway congestion. wheezing: expiratory is heard diffusely, Respiratory rate: 30 11:21 Neuro: Mentation: confused. Vital Signs: 10:48 BP 121 / 85; Pulse 130; Resp 30 S; Temp 97.9; Pulse Ox 93% on Nebulizer Mask; iw 12:17 Weight 127.01 kg (R); ll1 12:21 BP 140 / 98; Pulse 120; Resp 44; Pulse Ox 95% on Non-rebreather mask; ll1 13:16 BP 136 / 77; Pulse 96; Resp 30; Pulse Ox 92% on Venturi mask; ll1 14:24 BP 98 / 72; Pulse 92; Resp 29; Pulse Ox 92% ; ll1 15:45 BP 110 / 65; Pulse 90; Resp 30; Pulse Ox 95% ; ll1 MDM: 10:45 Patient medically screened. [facility] 11:21 Differential diagnosis: Anxiety Reaction asthma, Bronchitis reactive airway disease. [facility] 14:18 Data reviewed: vital signs, nurses notes. Counseling: I had a detailed discussion with [facility] the patient and/or guardian regarding: the historical points, exam findings, and any diagnostic results supporting the discharge/admit diagnosis, the presence of at least one elevated blood pressure reading (>120/80) during this emergency department visit, the need for further work-up and treatment in the hospital. Response to treatment: the patient's symptoms have markedly improved after treatment. 03/28 10:46 Order name: Amylase, Serum [facility] 03/28 10:46 Order name: Basic Metabolic Panel [facility] 03/28 10:46 Order name: Blood Culture Adult (2) [facility] 03/28 10:46 Order name: C-Reactive Protein nj2 03/28 10:46 Order name: CBC with Diff nj2 03/28 10:46 Order name: CPK [facility] 03/28 10:46 Order name: Ckmb [facility] 03/28 10:46 Order name: LFT's; Complete Time: 13:58 nj2 03/28 10:46 Order name: Lactate; Complete Time: 12:09 nj2 03/28 10:46 Order name: Lipase; Complete Time: 13:58 nj2 03/28 10:46 Order name: Procalcitonin; Complete Time: 13:58 nj2 03/28 10:46 Order name: Protime (+inr); Complete Time: 13:39 nj2 03/28 10:46 Order name: Ptt, Activated; Complete Time: 13:39 nj2 03/28 10:46 Order name: Troponin (emerg Dept Use Only); Complete Time: 13:58 [facility] 03/28 10:46 Order name: Urine Microscopic Only; Complete Time: 13:00 [facility] 03/28 10:47 Order name: Amylase; Complete Time: 13:58 [facility] 03/28 10:47 Order name: Basic Metabolic Panel; Complete Time: 13:58 [facility] 03/28 10:47 Order name: Blood Culture [facility] 03/28 10:47 Order name: C-Reactive Protein; Complete Time: 13:58 [facility] 03/28 10:47 Order name: CBC with Automated Diff; Complete Time: 13:58 [facility] 03/28 10:47 Order name: Creatine Phosphokinase; Complete Time: 13:58 [facility] 03/28 10:47 Order name: CKMB Creatine Kinase MB; Complete Time: 13:58 [facility] 03/28 11:25 Order name: ABG; Complete Time: 13:00 [facility] 03/28 12:38 Order name: Urinalysis; Complete Time: 13:00 [facility] 03/28 12:40 Order name: Urine Culture [facility] 03/28 13:26 Order name: CBC Smear Scan; Complete Time: 13:58 [facility] 03/28 16:22 Order name: Lactate Sepsis 2 HR Follow-up; Complete Time: 16:25 [facility] 03/28 16:38 Order name: COVID-19 : Document "Date of Symptom Onset" if Symptomatic. mt 03/28 10:46 Order name: Chest Single View XRAY; Complete Time: 11:57 [facility] 03/28 10:46 Order name: Accucheck [facility] 03/28 10:46 Order name: Cardiac monitoring; Complete Time: 12:01 nj03/28 10:46 Order name: EKG - Nurse/Tech; Complete Time: 12: nj03/28 10:46 Order name: IV Saline Lock - Large Bore; Complete Time: 10:56 nj03/28 10:46 Order name: Labs collected and sent; Complete Time: 10:56 nj03/28 10:46 Order name: O2 Per Protocol; Complete Time: 10:56 nj03/28 10:46 Order name: O2 Sat Monitoring; Complete Time: 10:56 nj03/28 10:46 Order name: Urine Dipstick-Ancillary (obtain specimen); Complete Time: 12:10 nj03/28 11:25 Order name: CT Head Brain wo Cont; Complete Time: 12: nj03/28 11:46 Order name: Labs - recollect needed: CBC, chemistry, blue top; Complete Time: 12:09 03/28 14:50 Order name: CONS Physician Consult EDMS 03/28 18:13 Order name: CORONAVIRUS EDMS Administered Medications: 12:18 Drug: NS 0.9% (30 ml/kg) 30 ml/kg Route: IV; Rate: bolus; Site: left wrist; 1 16:13 Follow up: Response: No adverse reaction; IV Status: Completed infusion; IV Intake: ll1 2000ml 12:19 Drug: vancoMYCIN 1 grams Route: IVPB; Infused Over: 2 hrs; Site: left wrist; ll1 13:56 Follow up: Response: No adverse reaction; IV Status: Completed infusion; IV Intake: ll1 1000ml 12:20 Drug: Cefepime 1 grams Route: IVPB; Rate: 200 ml/hr; Infused Over: 30 mins; Site: left ll1 wrist; 13:21 Follow up: Response: No adverse reaction; IV Status: Completed infusion; IV Intake: [id number] 12:20 Drug: Lovenox (enoxaparin) 70 mg Route: Sub-Q; Site: right lower abdomen; ll1 13:22 Follow up: Response: No adverse reaction 1 12:20 Drug: SOLU-Medrol (methylPrednisoLONE) 125 mg Route: IVP; Site: left wrist; ll1 13:22 Follow up: Response: No adverse reaction [facility] 15:31 Drug: D5-1/2 NS 1000 ml Route: IV; Rate: 100 ml/hr; Site: left wrist; ll1 Disposition Summary: 03/28/21 14:20 Hospitalization Ordered Hospitalization Status: Inpatient Admission nj2 Provider: Misha Bolden Location: Telemetry/MedSurg (Inpatient) ma2 Condition: Stable ma2 Problem: new ma2 Symptoms: are unchanged ma2 Bed/Room Type: Standard [facility] Room Assignment: [facility] Diagnosis - Severe sepsis without septic shock ma2 - Acute cystitis ma2 - Viral pneumonia, unspecified - COVID - 19 ma2 - Hypoxemia ma2 Forms: - Medication Reconciliation Form ma2 - SBAR form ma2 Signatures: Dispatcher [employer] Ivanna Castellanos RN RN iw Jamison Hernandez PA PA [id number] Jessika Huitron MD MD ma2 Sheba Tavera RN RN ll1 Corrections: (The following items were deleted from the chart) 12:30 10:47 Arterial Blood Gas+[id number].LAB.BRZ ordered. KATIE WILSON
[2021-03-28] MEDS ORDERED: D5 0.45 NS 1,000 ML IV ONE (15:38)
--- NOTE | 2021-03-28 17:00 | P.PN ---
Subjective Date of Service: 03/28/21 Physical Examination - Studies Laboratory Data (last 24 hrs) 03/28/21 13:03: PT 15.2 H, INR 1.32, APTT 27.8 03/28/21 13:03: WBC 10.20, Hgb 13.0 L, Hct 41.4, Plt Count 368 03/28/21 13:03: Sodium 167 H*, Potassium 3.9, BUN 48 H, Creatinine 1.64 H, Glucose 134 H, Total Bilirubin 0.7, AST 15, ALT 12, Alkaline Phosphatase 55, Amylase 44, Lipase 64 L Assessment & Plan Physician Review Additional Text: Patient seen and evaluated. Agree with PA evaluation and treatment. Advanced directives addressed with MPOA-Cousin. Patient is DNR. Will obtain and verify home meds from snf to reconcile. Will continue to reassess. Will consider Hospice if is condition does not improve. Time Spent Managing Pts Care (In Minutes): 15
--- NOTE | 2021-03-28 18:08 | P.CNS ---
Date of Consult: 03/28/21 This is a 75-year-old male patient that was seen in the emergency room for breathing difficulty. Emergency room evaluated patient and work patient up and was found to have a sodium of 167, potassium 3.9, chloride 134, bicarb 27, BUN 48, creatinine 1.64, glucose 134. Patient had a white cell count of 10.2, hemoglobin 13, hematocrit 41.4, platelet 368. Patient had a lactate of 2.8, pro-Adalberto of 0.21, troponin of 0.16. Patient also found to have bacteriuria. Patient came from senior care and has been Covid positive for over a week with hypoxia upon arrival necessitating Venturi mask initially with a oxygen saturation of 92% on the mask. We evaluated patient in the emergency room and at this time requested for transfer as we do not have Covid beds and can use higher level care at this time amongst patients other problems. Patient was able to successfully be admitted to the intensive care unit at [facility] in the [facility].
[2021-03-28 20:44] VITALS: TEMP 97.9
[2021-03-28 20:49] VITALS: BP 110/65; O2SAT 95
--- NOTE | 2021-03-29 15:14 | EKG ---
Test Date: 2021-03-28 Test Time: 11:50:43 Tube Handler: ANNALEE MEASUREMENT RESULTS: Intervals: Rate: 126 NH: 126 QRSD: 108 QT: 328 QTc: 475 Keyes: P: 77 NH: 126 QRS: -77 T: 83 INTERPRETIVE STATEMENTS: Sinus tachycardia Incomplete right bundle branch block Left anterior fascicular block Cannot rule out Anterior infarct, age undetermined Abnormal ECG Compared to ECG 03/02/2021 08:30:37 Incomplete right bundle-branch block now present Ventricular premature complex(es) no longer present Right bundle-branch block no longer present Bifascicular block no longer present Myocardial infarct finding still present Electronically Signed On 03-29-21 15:11:02 CDT by Paco Bond
== END 2021-03-28 20:35 | disposition home or self-care (01) | DRG 179 ==
LOC: ER 10:25 → ERHOLD 14:47
PROVIDERS: ADMIT Family Medicine; ATTEND Family Medicine
DX: U07.1 COVID-19 (principal); R82.71 Bacteriuria; R09.02 Hypoxemia; I48.91 Unspecified atrial fibrillation; F31.9 Bipolar disorder, unspecified; K21.9 Gastro-esophageal reflux disease without esophagitis; E78.5 Hyperlipidemia, unspecified; E03.9 Hypothyroidism, unspecified; I10 Essential (primary) hypertension
CPT/HCPCS: 36415; 51702; 70450; 71045; 80048; 80076; 81003; 81015; 82150; 82550; 82553; 82805; 83605; 83690; 84145; 84484; 85025; 85610; 85730; 86140; 87040; 87070; 87077; 87086; 87088; 87186; 93005; 96365; 96366; 96367; 96372; 96375; 99285; J0692; J2930; J3370; J7030; J7799; U0003

== ENCOUNTER 2021-04-04 11:37 | Emergency (ER) | payer OTHER ==
--- OUTSIDE RECORDS SUMMARY | 2021-04-04 11:44 | XMS REPORT | Continuity of Care Document ---
:1945 Author Organization [facility] t Address [address] [place] [address] Care Team Providers Name Role Phone Pcp MD Primary Care Physician Unavailable Poli Conner MD Attending Clinician Deacon Zuniga MD Attending Clinician [phone] Manav Diggs MD Attending Clinician Nelli GONZÁLES Attending Clinician POLI CONNER Attending Clinician Unavailable POLI CONNER Admitting Clinician Unavailable Payers Payer Name Policy Type Policy Number Effective Date Expiration Date S ource Problems Condition Condition Condition Status Onset Resolution Last Treating Co mments Source Name Details Category Date Date Treatment Clinician Date UTI UTI Disease Active [facility] tract tract 00:00: Medical infection) infection) 00 Ce nter Acute Acute Disease Active [facility] hypoxemic hypoxemic 03-28 [facility] - respirator respirator 00:00: Me dical y failure y failure 00 Cent er COVID-19 COVID-19 Disease Active [facility] Center Allergies, Adverse Reactions, Alerts Allergy Allergy Status Severity Reaction(s) Onset Inactive Treating Comm ents Source Name Type Date Date Clinician Penicill Drug Active Anaphylaxis [facility]-26 [facility]: [facility] 00 Center Social History Social Habit Start Date Stop Date Quantity Comments Source Sex Assigned [facility] Exposure to SARS-CoV-[address] [facility] (event) Center Medications Ordered Filled Start Stop Current Ordering Indication Dosage Frequency Signature Comments Components Source Medication Medication Date Date Medication? Clinician (SIG) Name Name multivitami 2021- Yes 1{tbl} QD Take [address] n 04-03 tablet by [place] - (THERAGRAN) 00:00: 23:59 mouth Medi nilson tablet 00 :00 daily. Center ascorbic 2020- Yes 250mg QD Take 1 [facility] acid, 04-03 tablet [place] - vitamin C, 00:00: 23:59 (250 mg Med ical (VITAMIN C) 00 :00 total) by [address] ter 250 MG mouth tablet daily for 30 days. honey 100 % 2020- Yes 1{appli QD Apply [address] [facility] Pste 04-03 cation} applicatio [facility] - 00:00: 23:59 n Medical 00 :00 topically Center daily for 30 days -Peg tube wound: Cleanse with NS, pat dry. Apply to open wound dime size medi-honey from edge to edge and cover with "cut to fit" Allevyn foam dressing.. sodium 2020- Yes QD Apply [facility] hypochlorit 04-03 topically Fern kes - e (DAKIN'S, 00:00: 23:59 daily for Medical HALF-STRENG 00 :00 7 days [place] TH,) 0.25 % -Sacrum: external Cleanse solution with 0.25% Dakins solution and pack with 0.25% Dakins wet to dry dressing. Cover with Allevyn foam dressing daily.. zinc 2020- No 220mg QD Take [address] [facility] sulfate 04-03 capsule [place] - (ZINCATE) 00:00: 00:00 (220 mg Medi nilson 50 mg zinc 00 :00 total) by Cent er (220 mg) mouth capsule daily for 10 days. acetaminoph Yes 1{tbl} Take [address] en-codeine 04-02 tablet by Joss Sal (TYLENOL 18:23: mouth Medical #3) 300-30 35 every 6 Center mg per (six) tablet hours as needed. donepeziL 2021-0 Yes 10mg QD Take [address] (ARICEPT) -08 by mouth [facility] - 10 MG 18:23: nightly. Medical tablet 35 Center Missing or Yes Aspercreme [facility] Non-Formula 04-02 (lidocaine Fern kes - ry 18:23: 4%) patch Medical Medication 35 BID . Center calcium 2020-0 Yes 1{tbl} QD Take [address] [facility] carbonate-v 04-02 tablet by Rafael es - itamin D3 18:23: mouth Medical (calcium-vi 35 daily. Center tamin D) 500 mg(1,250mg) -200 unit per tablet phenytoin 2020-0 Yes Q.[id number] Take by [facility] (DILANTIN) - [id number] mouth 3 [facility] - 100 MG ER 18:23: 3D (three) Medic al capsule 35 times Center daily. docusate 0 Yes 100mg Q.5D Take [address] [facility] sodium 9-08 mg by [facility] - (COLACE) 18:23: mouth 2 Medica l 100 MG 35 (two) Center capsule times daily. famotidine 0 Yes 20mg Q.5D Take [address] (PEPCID) 20 -08 by mouth 2 Fern kes - MG tablet 18:23: (two) Medical 35 times Center daily. folic acid 0 Yes 1mg QD Take [address] (FOLVITE) 1 08 by mouth Luke s - MG tablet 18:23: daily. Medica l 35 Center furosemide 0 Yes 20mg QD Take [address] (LASIX) 20 08 by mouth [facility] - MG tablet 18:23: daily. Medica l 35 Center hydrOXYzine 0 Yes 25mg Take [address] (ATARAX) 25 9-08 by mouth 3 Fern kes - MG tablet 18:23: (three) Medic al 35 times Center daily as needed for Itching. ipratropium 0 Yes 500ug Q.[id number] Take [address] (ATROVENT) 04-02 [id number] mcg by L ukes - 0.02 % 18:23: 3D nebulizati Medic al nebulizer 35 on 3 Center solution (three) times daily. magnesium 2021-0 Yes 400mg Q.5D Take [address] oxide 9-08 mg by [facility] - (MAG-OX) 18:23: mouth 2 Medica l 400 mg 35 (two) Center (241.3 mg times magnesium) daily. tablet megestroL 0 Yes 400mg QD Take [address] (MEGACE) 9-08 mg by [facility] - 400 mg/10 18:23: mouth Medical mL (40 35 daily. Center mg/mL) suspension polyethylen 0 Yes 17g QD Take [address] e glycol 9-08 by mouth [facility] - (GLYCOLAX) 18:23: daily. Medic al 17 gram 35 Center packet gabapentin 0 Yes 100mg Q.20347284 Take [address] (NEURONTIN) 9-08 [id number] mg by L ukes - 100 MG 18:23: 3D mouth 3 Medical capsule 35 (three) Center times daily. potassium Yes 10meq QD Take [address] chloride 9-08 mEq by [facility] - (KLOR-CON) 18:23: mouth Medica l 10 MEQ CR 35 daily. Center tablet levothyroxi 0 Yes 150ug Take [address] ne 9-08 mcg by [facility] - (SYNTHROID, 18:23: mouth Medic al LEVOTHROID) 35 Every Center 150 MCG morning on tablet an empty stomach. traZODone 0 Yes 100mg QD Take [address] (DESYREL) 9-08 mg by [facility] - 100 MG 18:23: mouth Medical tablet 35 nightly. Center valproic 0 Yes 1000mg Q.5D Take 1,[address] acid, as 9-08 mg by [facility] - sodium 18:23: mouth 2 Medical salt, 35 (two) Center (DEPAKENE) times 250 mg/5 mL daily. (5 mL) solution famotidine 0 2020- Yes 20mg Take [address] [facility] (PEPCID) 20 04-02-08 tablet (20 L ukes - MG tablet 00:00: 23:59 mg total) Me dical 00 :00 by mouth Center every 12 (twelve) hours for 30 days. cholecalcif 0 2020- Yes 2000U QD Take [address] byron, 04-02 10-08 tablet [facility] - vitamin D3, 00:00: 23:59 (2,000 Med ical 2,000 unit 00 :00 Units Center Tab total) by mouth daily for 30 days. ciprofloxac 2020- Yes 500mg Q.5D Take [address] in HCl 04-02 tablet [facility] - (CIPRO) 500 00:00: 23:59 (500 mg Me dical MG tablet 00 :00 total) by Cente r mouth 2 (two) times daily for 14 days. mINOCYCLine 2020- Yes 100mg Q.5D Take [address] (MINOCIN,DY 04-02 capsule Luke s - NACIN) 100 00:00: 23:59 (100 mg Med ical MG capsule 00 :00 total) by Cent er mouth 2 (two) times daily for 14 days. dexAMETHaso 2020- Yes 6mg QD Take [address] ne 04-02 tablet (6 [facility] - (DECADRON) 00:00: 23:59 mg total) M edical 6 MG tablet 00 :00 by mouth Cent er daily for 5 days. apixaban Yes TWICE [facility] (ELIQUIS) 5-23 DAILY [facility] - 2.5 mg Tab 00:00: Medical tablet 00 Center amLODIPine Yes DAILY [facility] (NORVASC) 5-04 [facility] - 2.5 MG 00:00: Medical tablet 00 Center Vital Signs Vital Name Observation Time Observation Value Comments Source Systolic blood 2021-04-02 15:00:00 128 mm[Hg] [facility] Diastolic blood 2021-04-02 15:00:00 72 mm[Hg] [facility] Heart rate 2021-04-02 15:00:00 63 /min [facility] Body temperature 2021-04-02 15:00:00 35.94 Blaire [facility] Respiratory rate 2021-04-02 15:00:00 20 /min [facility] Oxygen saturation in 2021-04-02 15:00:00 95 /min [facility] Arterial blood by Medical Ce nter Pulse oximetry Body weight 2021-03-31 04:00:00 87.8 kg [facility] BMI 2021-03-31 04:00:00 30.32 kg/m2 [facility] Body height 2021-03-28 21:00:00 170.2 cm [facility] Procedures Procedure Date / Time Performed Performing Clinician Sourc e D-DIMER 2021-04-02 13:51:00 Nelli [facility] LACTATE DEHYDROGENASE 2021-04-02 13:50:00 Nelli [facility] (LDH) [facility] FERRITIN 2021-04-02 13:50:00 Nelli [facility] CBC W/PLT COUNT & AUTO 2021-04-02 13:50:00 Nelli [facility] C-REACTIVE PROTEIN 2021-04-02 13:50:00 Nelli [facility] PROCALCITONIN 2021-04-02 13:50:00 Nelli [facility] COMPREHENSIVE METABOLIC 2021-04-02 13:50:00 Nelli [facility] PANEL [facility] MAGNESIUM 2021-04-02 13:50:00 Nelli [facility] POCT-GLUCOSE METER 2021-04-02 01:52:00 Tessie Diggskha Manav [facility] POCT-GLUCOSE METER 2021-04-01 20:51:00 Tessie Diggskha Manav [facility] POCT-GLUCOSE METER 2021-04-01 16:51:00 Renata Diggs [facility] URINE CULTURE 2021-04-01 16:50:00 Diane Gallagher [facility] URINALYSIS W/ REFLEX 2021-04-01 16:50:00 Diane Gallagher [facility] URINE CULTURE [facility] SARS-COV2/INFLUENZA/RSV 2021-04-01 16:48:00 Renata Diggs [facility] - RT-PCR [facility] BASIC METABOLIC PANEL (7) 2021-04-01 16:47:00 Diane Gallagher [facility] POCT-GLUCOSE METER 2021-04-01 11:43:00 Renata Diggs [facility] VANCOMYCIN LEVEL, TROUGH 2021-04-01 10:34:00 Dakotah Figueredo [facility] POCT-GLUCOSE METER 2021-04-01 05:45:00 [facility] W/[facility]T [facility] & AUTO 2021-04-01 05:26:00 Sersuma [facility] S [facility] DIFFERENTIAL [facility] BASIC METABOLIC PANEL (7) 2021-04-01 05:26:00 Madison Newsome [facility] MAGNESIUM 2021-04-01 05:26:00 Sersuma [facility] PHOSPHORUS 2021-04-01 05:26:00 Kasey [facility] HEPATIC FUNCTION PANEL 2021-04-01 05:26:00 Kasey [facility] C-REACTIVE PROTEIN 2021-04-01 05:26:[address] [facility] CREATINE KINASE (CK) 2021-04-01 05:26:00 Kasey [facility] CALCIUM, IONIZED 2021-04-01 05:26:00 Kasey [facility] POCT-GLUCOSE METER 2021-03-31 23:22:00 Sancho Gregory [facility] POCT-GLUCOSE METER 2021-03-31 15:28:00 Sancho Gregory [facility] CBC W/PLT COUNT & AUTO 2021-03-31 12:50:00 Kasey [facility] S t [facility] DIFFERENTIAL [facility] MAGNESIUM 2021-03-31 12:50:00 Sersuma [facility] PHOSPHORUS 2021-03-31 12:50:00 Berny Parks [facility] HEPATIC FUNCTION PANEL 2021-03-31 12:50:00 Kasey [facility] COMPREHENSIVE METABOLIC 2021-03-31 12:50:00 Lan Peraza [facility] VANCOMYCIN LEVEL, RANDOM 2021-03-31 12:50:00 Joanna Jolly [facility] CALCIUM, IONIZED 2021-03-31 12:49:00 Kasey Berny [facility] POCT-GLUCOSE METER 2021-03-31 12:08:00 [facility] POCT-GLUCOSE METER 2021-03-31 09:59:00 [facility] BASIC METABOLIC PANEL (7) 2021-03-31 00:07:00 Madison Newsome [facility] POCT-GLUCOSE METER 2021-03-30 21:31:00 [facility] XR ABDOMEN / KUB 1 VIEW 2021-03-30 21:31:00 Bola Naylor [facility] POCT-GLUCOSE METER 2021-03-30 17:26:00 [facility] XR ABDOMEN / KUB 1 VIEW 2021-03-30 17:03:00 Madison Newsome I [facility] BASIC METABOLIC PANEL (7) 2021-03-30 16:42:00 Madison Newsome [facility] POCT-GLUCOSE METER 2021-03-30 12:50:[address] [facility] US RENAL COMPLETE 2021-03-30 11:26:00 Lan Peraza [facility] 2D ECHO W/ DOPPLER 2021-03-30 10:31:37 Jd Jefferson [facility] (CW/PW/COLOR) [facility] BASIC METABOLIC PANEL (7) 2021-03-30 09:53:00 David Reeves [facility] POCT-GLUCOSE METER 2021-03-30 05:02:00 [facility] CBC W/PLT COUNT & AUTO 2021-03-30 04:12:00 [facility] BASIC METABOLIC PANEL (7) 2021-03-30 04:12:00 David Reeves CH, I [facility] MAGNESIUM 2021-03-30 04:12:00 [facility] PHOSPHORUS 2021-03-30 04:12:00 [facility] HEPATIC FUNCTION PANEL 2021-03-30 04:12:00 [facility] C-REACTIVE PROTEIN 2021-03-30 04:12:00 [facility] CREATINE KINASE (CK) 2021-03-30 04:12:00 [facility] CALCIUM, IONIZED 2021-03-30 04:12:00 [facility] POCT-GLUCOSE METER 2021-03-29 23:40:00 [facility] OSMOLALITY, URINE 2021-03-29 21:49:00 [facility] OSMOLALITY, SERUM 2021-03-29 21:49:00 [facility] SODIUM, RANDOM URINE 2021-03-29 21:49:00 [facility] CREATININE, RANDOM URINE 2021-03-29 21:49:00 [facility] BASIC METABOLIC PANEL (7) 2021-03-29 21:49:00 David Reeves [facility] SODIUM, RANDOM URINE 2021-03-29 17:25:00 [facility] PROTEIN, RANDOM URINE 2021-03-29 17:25:00 [facility] CREATININE, RANDOM URINE 2021-03-29 17:25:00 [facility] OSMOLALITY, URINE 2021-03-29 17:25:00 [facility] POCT-GLUCOSE METER 2021-03-29 17:21:00 [facility] BASIC METABOLIC PANEL (7) 2021-03-29 16:26:00 David Reeves CH, [facility] VALPROIC ACID LEVEL, 2021-03-29 16:26:[address] [facility] PHENYTOIN LEVEL, TOTAL 2021-03-29 16:26:00 Jd Jefferson [facility] BASIC METABOLIC PANEL (7) 2021-03-29 12:51:00 David Reeves CH, I [facility] POCT-GLUCOSE METER 2021-03-29 12:38:00 [facility] BASIC METABOLIC PANEL (7) 2021-03-29 09:08:00 David Reeves CH, I [facility] VANCOMYCIN LEVEL, RANDOM 2021-03-29 09:08:00 Joanna Jolly [facility] B-TYPE NATRIURETIC FACTOR 2021-03-29 09:08:00 Jd Jefferson CH[facility] (BNP) [facility] BASIC METABOLIC PANEL (7) 2021-03-29 05:51:00 David Reeves CH, I [facility] CBC W/PLT COUNT & AUTO 2021-03-29 05:05:00 Berny Parks [facility] (CELLAVISION MANUAL DIFF) 2021-03-29 05:05:00 Berny Parks CH, I [facility] TSH/FREE T4 IF INDICATED 2021-03-29 05:05:00 [facility] URINE CULTURE 2021-03-29 02:53:00 [facility] URINALYSIS W/ REFLEX 2021-03-29 02:53:00 [facility] URINE CULTURE [facility] BLOOD CULTURE 2021-03-29 02:52:00 [facility] BLOOD GAS, ARTERIAL 2021-03-28 23:03:00 [facility] CBC (HEMOGRAM ONLY) 2021-03-28 23:02:00 [facility] PT/APTT 2021-03-28 23:02:00 [facility] D-DIMER 2021-03-28 23:02:00 [facility] LACTIC ACID, VENOUS 2021-03-28 23:02:00 [facility] CALCIUM, IONIZED 2021-03-28 23:02:00 [facility] COMPREHENSIVE METABOLIC 2021-03-28 22:29:00 [facility] C-REACTIVE PROTEIN 2021-03-28 22:29:00 [facility] MAGNESIUM 2021-03-28 22:29:00 [facility] PHOSPHORUS 2021-03-28 22:29:00 [facility] CREATINE KINASE (CK) 2021-03-28 22:29:00 [facility] XR ABDOMEN / KUB 1 VIEW 2021-03-28 22:07:00 [facility] XR CHEST 1 VIEW PORTABLE 2021-03-28 21:59:[address] [facility] BED[facility] Plan of Care Planned Activity Planned Date Details Comments Source Future Scheduled 2021-03-26 INFLUENZA VACCINE (#1) [facility] 00:00:00 [code = INFLUENZA Medical Ce nter VACCINE (#1)] Future Scheduled 2020-07-[address] [facility] - Test 00:00:00 (12+) [code = Medical Center DEPRESSION SCREENING (12+)] Future Scheduled 2008 PNEUMOCOCCAL 65+ YRS [facility] - Test 00:00:00 (1 of 1 - Medical Center [id number] PCV13) [code = PNEUMOCOCCAL 65+ YRS (1 of 1 - [id number] PCV13)] Future Scheduled 2005-03-[address] [facility] - Test 00:00:00 WELLNESS (YEAR 2 or Medical Center FIRST YEAR if no IPPE) [code = MEDICARE ANNUAL WELLNESS (YEAR 2 or FIRST YEAR if no IPPE)] Future Scheduled 1993 SHINGLES VACCINES ([address] [facility] - Test 00:00:00 of 2) [code = SHINGLES Medic al Center VACCINES (1 of 2)] Future Scheduled 1962 DTAP/TDAP/TD VACCINES [facility] Test 00:00:00 (1 - Tdap) [code = Medical C enter DTAP/TDAP/TD VACCINES (1 - Tdap)] Future Scheduled 1961 HEPATITIS C [facility]CRE[facility]ING [facility] Test 00:00:00 [code = HEPATITIS C Medical Center SCREENING] Future Scheduled 1955 COVID-19 VACCINE (1) [facility] Test 00:00:00 [code = COVID-[address] VACCINE (1)] Encounters Start End Encounter Admission Attending Care Care Encounter Source Date/Time Date/Time Type Type Clinicians Facility Department ID 2021-03-28 2021-04-02 [facility] Flavia Conner [facility] [id number] [facility] 20:39:00 18:23:00 Encounter Jordan Zuniga Rekha Srinivas Medical [place], Maria C enter 2021-03-29 2021-03-29 Travel [facility] [id number] [facility] 00:00:00 00:00:00 [facility] Results Test Description Test Time Test Comments Results Result Comments Source Urine culture 2021-04-03 09:42:00 Test Item Value Reference Range Interpretation Comme nts Result (test code = 6463-4) 80-89,000 col/mL Capri tropicalis A Lab Interpretation (test code = 30343-1) Abnormal [facility] (Left Venipuncture) 2021-04-03 04:01:00 Test Item Value Reference Range Interpretation Comments Result (test code = No growth in 5 days 6463-4) [facility] [id number] 04:01:00 Test Item Value Reference Range Interpretation Comments CULTURE (BEAKER) (test No growth in 5 days code = 1095) BLOOD [id number] 04:01:00 Test Item Value Reference Range Interpretation Comments CULTURE (BEAKER) (test No growth in 5 days code = 1095) [id number] 14:50:00 Test Item Value Reference Range Interpretation Comments Ferritin (test code = 486.66 ng/mL 5-275 H 2276-4) STACY (test code = STACY) Floor Steward/Stewardess ID - PIAYA Leighann Lab Interpretation (test Abnormal code = 73444-6) [facility]2021-[facility]-08 14:50:00 Test Item Value Reference Range Interpretation Comments FERRITIN (BEAKER) (test code = 486.66 ng/mL 5.00-275.00 H 361) Floor Steward/Stewardess ID - PIAYA [id number] 14:43:00 Test Item Value Reference Range Interpretation Comments Procalcitonin (test <0.05 See_Comment [Automa saulo code = 38651-7) message] The system which generated this result transmit saulo reference range : <0.05 ng/mL. Th e reference range was not used to interpret this result as normal/abnormal . STACY (test code = STACY) SEPSIS RISK (ng/mL)Low: 0.05-0.50Inter mediate: 0.51-2.00High: >=2.01 Lab Interpretation Normal (test code = 96254-2) [facility]IN2021-09-08 14:43:00 Test Item Value Reference Range Interpretation Comments PROCALCITONIN (BEAKER) (test code = < ng/mL <0.05 3036) SEPSIS RISK (ng/mL)Low: 0.05-0.50Intermediate: 0.51-2.00High: >=2.01Comprehensive metabolic [id number] 14:39:00 Test Item Value Reference Range Interpretation Comments Protein, Total (test 6.0 See_Comment Specime n slightly code = 2885-2) hemolyzed [Automated message] The system which generated this result transmit saulo reference range : 6.0 - 8.3 gm/dL . The reference range was not u sed to interpret th is result as normal/abnormal . Albumin (test code = 2.0 g/dL 3.5-5 L Specime n slightly 16810-0) hemolyzed Alkaline Phosphatase 65 U/L 40-150 (test code = 6768-6) Total Bilirubin (test 0.4 mg/dL 0.2-1.2 Specim en slightly code = 1975-2) hemolyzed Sodium (test code = 141 meq/L 188-719 7764-2) Potassium (test code 3.3 meq/L 3.5-5.1 L Specime n slightly = 2823-3) hemolyzed Chloride (test code = 113 meq/L 98-107 H 2075-0) CO2 (test code = 20 meq/L 22-29 L 2028-9) BUN (test code = 39 mg/dL 7-21 H 3094-0) Creatinine (test code 0.79 mg/dL 0.57-1.25 Specim en slightly = 2160-0) hemolyzed Glucose (test code = 100 mg/dL 70-105 2345-7) Calcium (test code = 7.2 mg/dL 8.4-10.2 L 75334-0) AST (test code = 38 U/L 5-34 H Specimen sl ightly 1920-8) hemolyzed ALT (test code = 31 U/L 6-55 Specimen sl ightly 1742-6) hemolyzed EGFR (test code = 95 mL/min/1.73 [place] [address]-4) NOT ACCURATE CREATININE CLEARANCE IN PREDICTING GLOMERULAR FILTRATION RATE . ESTIMATED GFR I S NOT APPLICABLE FOR DIALYSIS PATIEN TS. STACY (test code = STACY) Floor Steward/Stewardess ID - PIAYA L Lab Interpretation Abnormal (test code = 86731-1) [facility] Center[facility]act[facility] dehydrogenase (LDH)2021-04-02 14:39:00 Test Item Value Reference Range Interpretation Comments LDH (test code = 390 U/L 125-220 H Specimen 2532-0) slightly hemolyzed STACY (test code = STACY) Floor Steward/Stewardess ID - PIAYA L Lab Interpretation Abnormal (test code = 36647-2) [facility] CenterLACTATE DEHYDROGENASE (LDH)2021-04-02 14:39:00 Test Item Value Reference Range Interpretation Comments LACTATE DEHYDROGENASE 390 U/L 125-220 H Specim en slightly (BEAKER) (test code = hemoly zed 635) Floor Steward/Stewardess ID - PIAYA LCOMPREHENSIVE METABOLIC [id number] 14:39:00 Test Item Value Reference Range Interpretation Comments TOTAL PROTEIN 6.0 gm/dL 6.0-8.3 Specimen sligh tly (BEAKER) (test code = hemoly zed 770) ALBUMIN (BEAKER) 2.0 g/dL 3.5-5.0 L Specimen sl ightly (test code = 1145) hemolyzed ALKALINE PHOSPHATASE 65 U/L 40-150 (BEAKER) (test code = 346) BILIRUBIN TOTAL 0.4 mg/dL 0.2-1.2 Specimen sli ghtly (BEAKER) (test code = hemoly zed 377) SODIUM (BEAKER) (test 141 meq/L 136-145 code = 381) POTASSIUM (BEAKER) 3.3 meq/L 3.5-5.1 L Specimen slightly (test code = 379) hemolyzed CHLORIDE (BEAKER) 113 meq/L 98-107 H (test code = 382) CO2 (BEAKER) (test 20 meq/L 22-29 L code = 355) BLOOD UREA NITROGEN 39 mg/dL 7-21 H (BEAKER) (test code = 354) CREATININE (BEAKER) 0.79 mg/dL 0.57-1.25 Specimen slightly (test code = 358) hemolyzed GLUCOSE RANDOM 100 mg/dL 70-105 (BEAKER) (test code = 652) CALCIUM (BEAKER) 7.2 mg/dL 8.4-10.2 L (test code = 697) AST (SGOT) (BEAKER) 38 U/L 5-34 H Specimen slightly (test code = 353) hemolyzed ALT (SGPT) (BEAKER) 31 U/L 6-55 Specimen slightly (test code = 347) hemolyzed EGFR (BEAKER) (test 95 mL/min/1.73 ESTIMA SAULO GFR IS code = 1092) sq m NOT ACCURATE CREATININE CLEARANCE IN PREDICTING GLOMERULAR FILTRATION RATE . ESTIMATED GFR I S NOT APPLICABLE FOR DIALYSIS PATIEN TS. Floor Steward/Stewardess ID - PIJONNY [id number] 14:35:00 Test Item Value Reference Range Interpretation Comments Magnesium (test code = 1.4 mg/dL 1.6-2.6 L Speci men 96155-5) slightly hemolyzed STACY (test code = STACY) Floor Steward/Stewardess ID - PIJONNY L Lab Interpretation Abnormal (test code = 55172-0) [facility]-Reactive [id number] 14:35:00 Test Item Value Reference Range Interpretation Comments CRP (test code = 676) 2.68 mg/dL 0-0.5 H STACY (test code = STACY) Floor Steward/Stewardess ID - PIAYA L Lab Interpretation (test Abnormal code = 42344-5) [facility] CenterMAGNESIUM2021-09-08 14:35:00 Test Item Value Reference Range Interpretation Comments MAGNESIUM (BEAKER) 1.4 mg/dL 1.6-2.6 L Specimen slightly (test code = 627) hemolyzed Floor Steward/Stewardess ID - PIJONNY LC-REACTIVE [id number] 14:35:00 Test Item Value Reference Range Interpretation Comments C-REACTIVE PROTEIN (BEAKER) (test 2.68 mg/dL 0.00-0.50 H code = 676) Floor Steward/Stewardess ID - PIJONNY [id number] 14:24:00 Test Item Value Reference Range Interpretation Comments D-Dimer, Quant (test 1.25 See_Comment H [Autom ated code = 60047-8) message] The system which generated this result transmitted reference range : <0.50 MG/L FEU. The reference range was not used to interpr et this result as normal/abnormal . STACY (test code = STACY) Intended Use: The D-Dimer Assay can be used to aid in the diagnosis of Deep Vein Thrombosis (DVT) and Pulmonary Embolism Disease (PED).In patients with low pre-test probability, various studies concerning STA Liatest D-dimer test have reported that with a cutoff value of 0.50 MG/L FEU, the Negative Predictive Value (NPV) regarding the exclusion of thrombosis is within 95-100% range. Lab Interpretation Abnormal (test code = 73895-4) [facility][id number] 14:24:00 Test Item Value Reference Range Interpretation Comments D-DIMER QUANTITATIVE (BEAKER) 1.25 MG/L FEU <0.50 H (test code = 671) Intended Use: The D-Dimer Assay can be used to aid in the diagnosis of Deep Vein Thrombosis (DVT) and Pulmonary Embolism Disease (PED).In patients with low pre- test probability, various studies concerning STA Liatest D-dimer test have reported that with a cutoff value of 0.50 MG/L FEU, the Negative Predictive Value (NPV) regarding the exclusion of thrombosis is within 95-100% range.CBC with platelet count + automated [id number] 14:17:00 Test Item Value Reference Range Interpretation Comments WBC (test code = 6690-2) 14.6 See_Comment H [A utomated message] The system [employer] generated this result transmitted ref erence range: 3.5 - 10 .5 K/L. The refe rence range was not u sed to interpret this result as normal/abnor mal. RBC (test code = 789-8) 4.03 See_Comment L [Au tomated message] The system [employer] generated this result transmitted ref erence range: 4.63 - 6 .08 M/L. The refe rence range was not u sed to interpret this result as normal/abnor mal. MCHC (test code = 786-4) 32.0 See_Comment L [A utomated message] The system [employer] generated this result transmitted ref erence range: 32.3 - 3 6.5 GM/DL. The refe rence range was not u sed to interpret this result as normal/abnor mal. Hematocrit (test code = 41.2 % 40.1-51 4544-3) MCV (test code = 787-2) 102.2 fL 79-92.2 H MCH (test code = 785-6) 32.8 pg 25.7-32.2 H RDW (test code = 788-0) 16.4 % 11.6-14.4 H Platelets (test code = 264 See_Comment [Aut omated message] 777-3) The system [employer] generated this result transmitted ref erence range: 150 - 45 0 K/CU MM. The referen ce range was not u sed to interpret this result as normal/abnor mal. MPV (test code = 11.2 fL 9.4-12.4 04626-1) nRBC (test code = 413) 1 See_Comment H [Aut omated message] The system [employer] generated this result transmitted ref erence range: 0 - 0 /1 00 WBC. The refere nce range was not u sed to interpret this result as normal/abnor mal. % Neutros (test code = 84 % 429) % Lymphs (test code = 9 % 430) % Monos (test code = 5 % 431) % Eos (test code = 432) 0 % % Baso (test code = 437) 0 % # Neutros (test code = 12.34 See_Comment H [Aut omated message] 670) The system [employer] generated this result transmitted ref erence range: 1.78 - 5 .38 K/L. The refe rence range was not u sed to interpret this result as normal/abnor mal. # Lymphs (test code = 1.26 See_Comment L [Auto mated message] 414) The system [employer] generated this result transmitted ref erence range: 1.32 - 3 .57 K/L. The refe rence range was not u sed to interpret this result as normal/abnor mal. # Monos (test code = 0.76 See_Comment [Autom ated message] 415) The system [employer] generated this result transmitted ref erence range: 0.30 - 0 .82 K/L. The refe rence range was not u sed to interpret this result as normal/abnor mal. # Eos (test code = 416) 0.00 See_Comment L [Au tomated message] The system [employer] generated this result transmitted ref erence range: 0.04 - 0 .54 K/L. The refe rence range was not u sed to interpret this result as normal/abnor mal. # Baso (test code = 417) 0.03 See_Comment [A utomated message] The system [employer] generated this result transmitted ref erence range: 0.01 - 0 .08 K/L. The refe rence range was not u sed to interpret this result as normal/abnor mal. Immature 2 % 0-1 H Granulocytes-Relative (test code = 2801) Lab Interpretation (test Abnormal code = 23943-0) [facility] W/PLT COUNT & AUTO [id number] 14:17:00 Test Item Value Reference Range Interpretation Comments WHITE BLOOD CELL COUNT (BEAKER) 14.6 K/ L 3.5-10.5 H (test code = 775) RED BLOOD CELL COUNT (BEAKER) 4.03 M/ L 4.63-6.08 L (test code = 761) HEMOGLOBIN (BEAKER) (test code = 13.2 GM/DL 13.7-17.5 L 410) HEMATOCRIT (BEAKER) (test code = 41.2 % 40.1-51.0 411) MEAN CORPUSCULAR VOLUME (BEAKER) 102.2 fL 79.0-92.2 H (test code = 753) MEAN CORPUSCULAR HEMOGLOBIN 32.8 pg 25.7-32.2 H (BEAKER) (test code = 751) MEAN CORPUSCULAR HEMOGLOBIN CONC 32.0 GM/DL 32.3-36.5 L (BEAKER) (test code = 752) RED CELL DISTRIBUTION WIDTH 16.4 % 11.6-14.4 H (BEAKER) (test code = 412) PLATELET COUNT (BEAKER) (test 264 K/CU MM 150-450 code = 756) MEAN PLATELET VOLUME (BEAKER) 11.2 fL 9.4-12.4 (test code = 754) NUCLEATED RED BLOOD CELLS 1 /100 WBC 0-0 H (BEAKER) (test code = 413) NEUTROPHILS RELATIVE PERCENT 84 % (BEAKER) (test code = 429) LYMPHOCYTES RELATIVE PERCENT 9 % (BEAKER) (test code = 430) MONOCYTES RELATIVE PERCENT 5 % (BEAKER) (test code = 431) EOSINOPHILS RELATIVE PERCENT 0 % (BEAKER) (test code = 432) BASOPHILS RELATIVE PERCENT 0 % (BEAKER) (test code = 437) NEUTROPHILS ABSOLUTE COUNT 12.34 K/ L 1.78-5.38 H (BEAKER) (test code = 670) LYMPHOCYTES ABSOLUTE COUNT 1.26 K/ L 1.32-3.57 L (BEAKER) (test code = 414) MONOCYTES ABSOLUTE COUNT (BEAKER) 0.76 K/ L 0.30-0.82 (test code = 415) EOSINOPHILS ABSOLUTE COUNT 0.00 K/ L 0.04-0.54 L (BEAKER) (test code = 416) BASOPHILS ABSOLUTE COUNT (BEAKER) 0.03 K/ L 0.01-0.08 (test code = 417) IMMATURE GRANULOCYTES-RELATIVE 2 % 0-1 H PERCENT (BEAKER) (test code = 2801) POC-Glucose [id number] 02:03:00 Test Item Value Reference Range Interpretation Comments POC-Glucose Meter (test 115 mg/dL 70-110 H : TE STED AT [facility] code = 1538) [address] [facility], [address]: Floor Steward/Stewardess/Techni tressa ID = [id number] for Allen (contract )Nhi Lab Interpretation (test Abnormal code = 81481-0) [facility] [id number] 02:03:00 Test Item Value Reference Range Interpretation Comments POC-GLUCOSE METER 115 mg/dL 70-110 H : [facility]) (test code = [facility], 1538) [address]: Floor Steward/Stewardess/Techni tressa ID = [id number] for De candy (contract)[employer] da POCT-GLUCOSE [id number] 21:04:00 Test Item Value Reference Range Interpretation Comments POC-GLUCOSE METER 143 mg/dL 70-110 H : [facility] (test code = [facility], 1538) [address]: Floor Steward/Stewardess/Techni tressa ID = [id number] for NEHA OLSON SARS-CoV2/Influenza/RSV RT-PCR (Symptomatic ONLY)2021-04-01 19:00:00 Test Item Value Reference Interpretation Comments Range SARS-COV2/RT-PCR Positive Negative AA The SARS-Co V-2 (test code = target nucleic 60713-8) acids are detec saulo in this specime n. The presence SARS-CoV-2 nucl eic acids cannot ru le out co-infectio ns or disease caus ed by other viral or bacterial pathogens. As w ith any molecular t est, mutations withi n the target anand ons of the Xpert Xp ress SARS-CoV-2 test could affect pr nikolas and/or probe binding resulti ng in failure to detect the pres ence of virus or the virus being detected less predictably. Fa lse negative result s may occur if vi edelmira is present at levels below th e analytical limi t of detection. This SARS CoV-2 test is a rapid, real-t mary RT-PCR test intended for th e qualitative detection of nucleic acid fr om SARS-CoV-2 in a nasopharyngeal swab specimen collec saulo from individual s suspected of COVID-19 by the ir healthcare provider. Resul ts from the Xpert Xpress SARS-CoV -2 test should be correlated with the clinical histor y, epidemiological data, and other data available to the clinician evaluating the patient. Viral nucleic acid ma y persist in vivo , independent of virus viability . Detection of analyte target( s) does not imply that the correspondi ng virus(es) are infectious or a re the causative agents for clin ical symptoms. Influenza A RT-PCR Negative Negative The Flu A target (test code = [place] [address]-7) not detected in this specimen. Influenza B RT-PCR Negative Negative The Flu B target (test code = [place] [address]-1) not detected in this specimen. RSV by RT-PCR (test Negative Negative The RSV target code = 38355-9) nucleic acid s are not detected in this specimen. STACY (test code = The presence of STACY) SARS-CoV-2/FLU/RSV viral nucleic acids cannot rule out co-infections or disease caused by other viral or bacterial pathogens. As with any molecular test, mutations within the target regions of the Xpert Xpress SARS-CoV-2/Flu/RSV test could affect primer and/or probe binding resulting in failure to detect the presence of virus or the virus being detected less predictably. False negative results may occur if the virus is present at levels below the analytical limit of detection in this specimen. This Xpert Xpress SARS-CoV-2/Flu/RSV test is a rapid, real-time RT-PCR test intended for the qualitative detection of nucleic acid from Xpert Xpress SARS-CoV-2/Flu/RSV in a nasopharyngeal swab specimen collected from individuals suspected of Xpert Xpress SARS-CoV-2/Flu/RSV by their healthcare provider. Results from [facility] Xpert Xpress SARS-CoV-2/Flu/RSV test should be correlated with the clinical history, epidemiological data, and other data available to the clinician evaluating the patient. Viral nucleic acid may persist in vivo, independent of virus viability. Detection of analyte target(s) does not imply that the corresponding virus(es) are infectious or are the causative agents for clinical symptoms. This test has not been Food and Drug Administration (FDA) cleared or approved and has been authorized by FDA under an Emergency Use Authorization (EUA). This EUA will be effective until the declaration that circumstances exist justifying the authorization of the emergency use of in vitro diagnostic tests for detection and/or diagnosis of COVID-19 is terminated under Section 564(b)(2) of the Act or the EUA is revoked under Section 564(g) of the Act. Fact Sheet for Healthcare Providers:https://w [employer]/Docu ments/Xpert%20Xpres s%20SARS%20CoV-2/Fa ct%20Sheets/302-390 2%36OFCT-LHT-2%20HE ALTHCARE%20PROVIDER S%20FACT%20SHEET.pd f Fact Sheet for Healthcare Patients:https://[employer]/Docum ents/Xpert%20Xpress %20SARS%20Cov-2/Fac t%20Sheets/302-3801 %56ZZYZ-SPS-9%20PAT IENT%20FACT%20SHEET .pdf Lab Interpretation Abnormal (test code = 06458-2) [facility] [id number] 19:00:00 Test Item Value Reference Range Interpretation Comments SARS-COV2/RT-PCR Positive Negative AA The SARS-Co V-2 target (test code = nucleic acids a re 7773425) detected in thi s specimen. The presence SARS-CoV-2 nucl eic acids cannot rule out co-infections o r disease caused by other viral or bacterial patho gens. As with any molecu lar test, mutations withi n the target regions of the Xpert Xpress SA RS-CoV-2 test could affe ct primer and/or probe bi nding resulting in fa ilure to detect the pres ence of virus or the vi edelmira being detected less predictably. Fa lse negative result s may occur if virus is present at levels below the analytical limi t of detection. This SARS CoV-2 test is a rapid, real-time RT-PC R test intended for qualitative det ection of nucleic acid fr om SARS-CoV-2 in a nasopharyngeal swab specimen collec saulo from individuals teressa pected of COVID-19 by [facility]. Results from Xpert Xpress SARS-CoV -2 test should be corre lated with the clinical hi story, epidemiological data, and other data avai lable to the clinician e valuating the patient. Vi ral nucleic acid ma y persist in vivo, indepe ndent of virus viability . Detection of an alyte target(s) does not imply that the corres ponding virus(es) are i nfectious or are the caus ative agents for clin ical symptoms. INFLUENZA A RT-PCR Negative Negative The Flu A target nucleic (test code = acids are not d etected in 19100829) this specimen. INFLUENZA B RT-PCR Negative Negative The Flu B target nucleic (test code = acids are not d etected in 19100830) this specimen. RSV RT-PCR (test Negative Negative The RSV ta rget nucleic code = 3254568) acids are no t detected in this specimen. The presence of SARS-CoV-2/FLU/RSV viral nucleic acids cannot rule out co- infections or disease caused by other viral or bacterial pathogens. As with any molecular test, mutations within the target regions of the Xpert Xpress SARS-CoV-2/Flu/RSV test could affect primer and/or probe binding resulting in failure to detect the presence of virus or the virus being detected less predictably. False negative results may occur if the virus is present at levels below the analytical limit of detection in this specimen.This Xpert Xpress SARS-CoV-2/Flu/RSV test is a rapid, real-time RT-PCR test intended for the qualitative detection of nucleic acid from Xpert Xpress SARS-CoV-2/Flu/RSV in a nasopharyngeal swab specimen collected from individuals suspected of Xpert Xpress SARS-CoV-2/Flu/RSV by their healthcare provider. Results from [facility] Xpert Xpress SARS-CoV-2/Flu/RSV test should be correlated with the clinical history, epidemiological data, and other data available to the clinician evaluating the patient. Viral nucleic acid may persist in vivo, independent of virus viability. Detection of analyte target(s) does not imply that the corresponding virus(es) are infectious or are the causative agents for clinical symptoms.This test has not been Food and Drug Administration (FDA) cleared or approved and has been authorized by FDA under an Emergency Use Authorization (EUA). This EUA will be effective until the declaration that circumstances exist justifying the authorization of the emergency use of in vitro diagnostic tests for detection and/or diagnosis of COVID-19 is terminated under Section 564(b)(2) of the Act or the EUA is revoked under Section 564(g) of the Act.Fact Sheet for Healthcare Providers :https://www.[employer]Songs/Documents/Xpert%20Xpress%20SARS%20CoV-2/Fact%20Sheets/3 02-3902%00SFFZ-WUP-3%20HEALTHCARE%20PROVIDERS%20FACT%20SHEET.pdfFact Sheet for Healthcare Patients:https://www.[employer] /Documents/Xpert%20Xpress%20SARS%20Cov-2/Fact%20Sheets/302-3801%49LMMQ-CNK-7%20P ATIENT%20FACT%20SHEET.pdfUrinalysis w/Microscopic + Reflex to [id number] 17:43:00 Test Item Value Reference Range Interpretation Comments Color, UA (test code Yellow = 5778-6) Clarity, UA (test Hazy code = 5767-9) Specific Butternut, UA 1.031 1.001-1.035 (test code = 5811-5) pH, UA (test code = 6.0 5.0-8.0 5803-2) Protein, UA (test 70 mg/dL Negative A code = 99864-4) Glucose, UA (test Negative Negative code = 365) Ketones, UA (test Trace Negative A code = 6394-8) Bilirubin, UA (test Negative Negative code = 47852-4) Blood, UA (test code Moderate Negative A = 57786-4) Nitrite, UA (test Negative Negative code = 5802-4) Leukocytes, UA (test Small Negative A code = 5799-2) Urobilinogen, UA 0.2 mg/dL 0.2-1 (test code = 15717-4) RBC, UA (test code = 27 See_Comment [Autom ated 87557-8) message] The system which generated this result transmitted reference range : /HPF. The reference range was not used to interpret this result as normal/abnormal . WBC, UA (test code = 20 See_Comment [Autom ated 5821-4) message] The system which generated this result transmitted reference range : /HPF. The reference range was not used to interpret this result as normal/abnormal . Bacteria, UA (test None Seen code = 73464-7) Mucus (test code = Rare 8247-9) Squam Epithel, UA <1 See_Comment [Automate d (test code = 77555-3) messag e] The system which generated this result transmitted reference range : /HPF. The reference range was not used to interpret this result as normal/abnormal . Hyaline Casts, UA 3 See_Comment [Automate d (test code = 08328-1) messag e] The system which generated this result transmitted reference range : /LPF. The reference range was not used to interpret this result as normal/abnormal . Crystals, Urine (test None Seen code = 38868-1) Yeast (test code = Occasional 81174-9) Specimen Source (test code = 2795) STACY (test code = STACY) Floor Steward/Stewardess ID - [auto]Floor Steward/Stewardess ID - tech Lab Interpretation Abnormal (test code = 98098-4) [facility] CenterURINAL[facility]IS W/ REFLEX URINE [id number] 17:43:00 Test Item Value Reference Range Interpretation Comments COLOR (BEAKER) (test code = 470) Yellow CLARITY (BEAKER) (test code = 469) Hazy SPECIFIC GRAVITY UA (BEAKER) (test 1.031 1.001-1.035 code = 468) PH UA (BEAKER) (test code = 467) 6.0 5.0-8.0 PROTEIN UA (BEAKER) (test code = 70 mg/dL Negative A 464) GLUCOSE UA (BEAKER) (test code = Negative Negative 365) KETONES UA (BEAKER) (test code = Trace Negative A 371) BILIRUBIN UA (BEAKER) (test code = Negative Negative 462) BLOOD UA (BEAKER) (test code = Moderate Negative A 461) NITRITE UA (BEAKER) (test code = Negative Negative 465) LEUKOCYTE ESTERASE UA (BEAKER) Small Negative A (test code = 466) UROBILINOGEN UA (BEAKER) (test 0.2 mg/dL 0.2-1.0 code = 463) RBC UA (BEAKER) (test code = 519) 27 /HPF WBC UA (BEAKER) (test code = 520) 20 /HPF BACTERIA (BEAKER) (test code = None Seen 517) MUCUS (BEAKER) (test code = 1574) Rare SQUAMOUS EPITHELIAL (BEAKER) (test < /HPF code = 516) HYALINE CASTS (BEAKER) (test code 3 /LPF = 514) CRYSTALS, URINE (BEAKER) (test None Seen code = 1521) YEAST (BEAKER) (test code = 1585) Occasional SOURCE(BEAKER) (test code = 7665) Floor Steward/Stewardess ID - [auto]Floor Steward/Stewardess ID - techBasic Metabolic [id number] 17:22:00 Test Item Value Reference Range Interpretation Comments Sodium (test code = 143 meq/L 749-403 3876-2) Potassium (test code = 3.3 meq/L 3.5-5.1 L 2823-3) Chloride (test code = 117 meq/L 98-107 H 2075-0) CO2 (test code = 18 meq/L 22-29 L 2028-9) BUN (test code = 44 mg/dL 7-21 H 3094-0) Creatinine (test code 0.87 mg/dL 0.57-1.25 = 2160-0) Glucose (test code = 170 mg/dL 70-105 H 2345-7) Calcium (test code = 7.4 mg/dL 8.4-10.2 L 50916-2) EGFR (test code = 85 mL/min/1.73 [place] [address]-0) NOT ACCURATE CREATININE CLEARANCE IN PREDICTING GLOMERULAR FILTRATION RATE . ESTIMATED GFR I S NOT APPLICABLE FOR DIALYSIS PATIENTS. STACY (test code = STACY) Floor Steward/Stewardess ID - BS Lab Interpretation Abnormal (test code = 09490-2) [facility] CenterBASIC METABOLIC [id number] 17:22:00 Test Item Value Reference Range Interpretation Comments SODIUM (BEAKER) 143 meq/L 136-145 (test code = 381) POTASSIUM (BEAKER) 3.3 meq/L 3.5-5.1 L (test code = 379) CHLORIDE (BEAKER) 117 meq/L 98-107 H (test code = 382) CO2 (BEAKER) (test 18 meq/L 22-29 L code = 355) BLOOD UREA NITROGEN 44 mg/dL 7-21 H (BEAKER) (test code = 354) CREATININE (BEAKER) 0.87 mg/dL 0.57-1.25 (test code = 358) GLUCOSE RANDOM 170 mg/dL 70-105 H (BEAKER) (test code = 652) CALCIUM (BEAKER) 7.4 mg/dL 8.4-10.2 L (test code = 697) EGFR (BEAKER) (test 85 mL/min/1.73 ESTIMA SAULO GFR IS code = 1092) sq m NOT ACCURATE CREATININE CLEARANCE IN PREDICTING GLOMERULAR FILTRATION RATE . ESTIMATED GFR I S NOT APPLICABLE FOR DIALYSIS PATIEN TS. Floor Steward/Stewardess ID - BSPOCT-GLUCOSE [id number] 17:03:00 Test Item Value Reference Range Interpretation Comments POC-GLUCOSE METER 161 mg/dL 70-110 H : TESTED A T [facility] 6720 (BEAKER) (test code = [facility] [employer] [facility], 1538) [address]: Floor Steward/Stewardess/Techni tressa ID = [id number] for MEHNAZ MATALENE POCT-GLUCOSE [id number] 11:55:00 Test Item Value Reference Range Interpretation Comments POC-GLUCOSE METER 171 mg/dL 70-110 H : TESTED A T [facility] 67[address] (BEAKER) (test code = [facility] [employer] [facility], 1538) [address]: Floor Steward/Stewardess/Techni tressa ID = [id number] for MEHNAZ MATALENE Vancomycin level, [id number] 11:02:00 Test Item Value Reference Range Interpretation Comments Vancomycin Tr (test code = 19.1 ug/mL 05-142-3) STACY (test code = STACY) Floor Steward/Stewardess ID - WINNIE C Lab Interpretation (test Normal code = 23147-8) [facility] CenterVANCOMYCIN LEVEL, [id number] 11:02:00 Test Item Value Reference Range Interpretation Comments VANCOMYCIN TROUGH (BEAKER) (test 19.1 ug/mL 10.0-20.0 code = 522) Floor Steward/Stewardess ID - WINNIE CCreatine Kinase (CK)2021-04-01 06:28:00 Test Item Value Reference Range Interpretation Comments Total CK (test code = 19 U/L 29-200 L 2157-6) STACY (test code = STACY) Floor Steward/Stewardess ID - MERT L Lab Interpretation (test Abnormal code = 07147-0) [facility] CenterBASIC METABOLIC [id number] 06:28:00 Test Item Value Reference Range Interpretation Comments SODIUM (BEAKER) 146 meq/L 136-145 H (test code = 381) POTASSIUM (BEAKER) 4.0 meq/L 3.5-5.1 Specimen slightly (test code = 379) hemolyzed CHLORIDE (BEAKER) 118 meq/L 98-107 H (test code = 382) CO2 (BEAKER) (test 19 meq/L 22-29 L code = 355) BLOOD UREA NITROGEN 42 mg/dL 7-21 H (BEAKER) (test code = 354) CREATININE (BEAKER) 1.02 mg/dL 0.57-1.25 Specimen slightly (test code = 358) hemolyzed GLUCOSE RANDOM 151 mg/dL 70-105 H (BEAKER) (test code = 652) CALCIUM (BEAKER) 7.7 mg/dL 8.4-10.2 L (test code = 697) EGFR (BEAKER) (test 71 mL/min/1.73 ESTIMA SAULO GFR IS code = 1092) sq m NOT ACCURATE CREATININE CLEARANCE IN PREDICTING GLOMERULAR FILTRATION RATE . ESTIMATED GFR I S NOT APPLICABLE FOR DIALYSIS PATIEN TS. Floor Steward/Stewardess ID - EMRT LCREATINE KINASE (CK)2021-04-01 06:28:00 Test Item Value Reference Range Interpretation Comments CREATINE KINASE TOTAL (BEAKER) (test 19 U/L 29-200 L code = 380) Floor Steward/Stewardess ID - MERT LHepatic function [id number] 06:09:00 Test Item Value Reference Range Interpretation Comments Protein, Total (test 6.0 See_Comment Specime n slightly code = 2885-2) hemolyzed [Automated message] The system which generated this result transmit saulo reference range : 6.0 - 8.3 gm/dL . The reference range was not u sed to interpret th is result as normal/abnormal . Albumin (test code = 2.1 g/dL 3.5-5 L Specime n slightly 91547-2) hemolyzed Total Bilirubin (test 0.4 mg/dL 0.2-1.2 Specim en slightly code = 1975-2) hemolyzed Bilirubin, Direct 0.2 mg/dL 0.1-0.5 Specimen s lightly (test code = 1968-7) hemolyz ed Alkaline Phosphatase 54 U/L 40-150 (test code = 6768-6) AST (test code = 54 U/L 5-34 H Specimen sl ightly 1920-8) hemolyzed ALT (test code = 33 U/L 6-55 Specimen sl ightly 1742-6) hemolyzed STACY (test code = STACY) Floor Steward/Stewardess ID - PIAYA L Lab Interpretation Abnormal (test code = 09529-4) [facility] CenterPhosphorus2021-09-07 06:09:00 Test Item Value Reference Range Interpretation Comments Phosphorus (test code 2.9 mg/dL 2.3-4.7 Specim en = 2777-1) slightly hemolyzed STACY (test code = STACY) Floor Steward/Stewardess ID - PIAYA L Lab Interpretation Normal (test code = 22126-1) [facility] [facility] CenterMAGNESIUM2021-09-07 06:09:00 Test Item Value Reference Range Interpretation Comments MAGNESIUM (BEAKER) 1.5 mg/dL 1.6-2.6 L Specimen slightly (test code = 627) hemolyzed Floor Steward/Stewardess ID - PIAYA [id number] 06:09:00 Test Item Value Reference Range Interpretation Comments PHOSPHORUS (BEAKER) 2.9 mg/dL 2.3-4.7 Specimen slightly (test code = 604) hemolyzed Floor Steward/Stewardess ID - PIAYA LHEPATIC FUNCTION [id number] 06:09:00 Test Item Value Reference Range Interpretation Comments TOTAL PROTEIN (BEAKER) 6.0 gm/dL 6.0-8.3 Speci men slightly (test code = 770) hemolyzed ALBUMIN (BEAKER) (test 2.1 g/dL 3.5-5.0 L Speci men slightly code = 1145) hemolyzed BILIRUBIN TOTAL 0.4 mg/dL 0.2-1.2 Specimen sli ghtly (BEAKER) (test code = hemoly zed 377) BILIRUBIN DIRECT 0.2 mg/dL 0.1-0.5 Specimen sl ightly (BEAKER) (test code = hemoly zed 706) ALKALINE PHOSPHATASE 54 U/L 40-150 (BEAKER) (test code = 346) AST (SGOT) (BEAKER) 54 U/L 5-34 H Specimen slightly (test code = 353) hemolyzed ALT (SGPT) (BEAKER) 33 U/L 6-55 Specimen slightly (test code = 347) hemolyzed Floor Steward/Stewardess ID - CONCEPCIONJONNY LC-REACTIVE [id number] 06:09:00 Test Item Value Reference Range Interpretation Comments C-REACTIVE PROTEIN (BEAKER) (test 2.48 mg/dL 0.00-0.50 H code = 676) Floor Steward/Stewardess ID - CONCEPCIONJONNY LCalcium, [id number] 06:05:00 Test Item Value Reference Range Interpretation Comments Calcium, Ion (test code = 1993-) 1.11 mmol/L 1.12-1.27 L pH, Blood (test code = 35342-3) 7.37 Lab Interpretation (test code = Abnormal 95642-1) [facility] CenterCALCIUM, [id number] 06:05:00 Test Item Value Reference Range Interpretation Comments CALCIUM IONIZED (BEAKER) (test 1.11 mmol/L 1.12-1.27 L code = 698) PH, BLOOD (BEAKER) (test code = 7.37 1810) POCT-GLUCOSE [id number] 05:57:00 Test Item Value Reference Range Interpretation Comments POC-GLUCOSE METER 134 mg/dL 70-110 H : TESTED A T [facility] 6720 (BEAKER) (test code = [place], 1538) [address]: Floor Steward/Stewardess/Techni tressa ID = [id number] for KALPANA HANSEN CBC W/PLT COUNT & AUTO [id number] 05:52:00 Test Item Value Reference Range Interpretation Comments WHITE BLOOD CELL COUNT (BEAKER) 8.7 K/ L 3.5-10.5 (test code = 775) RED BLOOD CELL COUNT (BEAKER) 3.85 M/ L 4.63-6.08 L (test code = 761) HEMOGLOBIN (BEAKER) (test code = 12.3 GM/DL 13.7-17.5 L 410) HEMATOCRIT (BEAKER) (test code = 40.9 % 40.1-51.0 411) MEAN CORPUSCULAR VOLUME (BEAKER) 106.2 fL 79.0-92.2 H (test code = 753) MEAN CORPUSCULAR HEMOGLOBIN 31.9 pg 25.7-32.2 (BEAKER) (test code = 751) MEAN CORPUSCULAR HEMOGLOBIN CONC 30.1 GM/DL 32.3-36.5 L (BEAKER) (test code = 752) RED CELL DISTRIBUTION WIDTH 15.7 % 11.6-14.4 H (BEAKER) (test code = 412) PLATELET COUNT (BEAKER) (test 272 K/CU MM 150-450 code = 756) MEAN PLATELET VOLUME (BEAKER) 10.8 fL 9.4-12.4 (test code = 754) NUCLEATED RED BLOOD CELLS 1 /100 WBC 0-0 H (BEAKER) (test code = 413) NEUTROPHILS RELATIVE PERCENT 87 % (BEAKER) (test code = 429) LYMPHOCYTES RELATIVE PERCENT 7 % (BEAKER) (test code = 430) MONOCYTES RELATIVE PERCENT 4 % (BEAKER) (test code = 431) EOSINOPHILS RELATIVE PERCENT 0 % (BEAKER) (test code = 432) BASOPHILS RELATIVE PERCENT 0 % (BEAKER) (test code = 437) NEUTROPHILS ABSOLUTE COUNT 7.55 K/ L 1.78-5.38 H (BEAKER) (test code = 670) LYMPHOCYTES ABSOLUTE COUNT 0.63 K/ L 1.32-3.57 L (BEAKER) (test code = 414) MONOCYTES ABSOLUTE COUNT (BEAKER) 0.36 K/ L 0.30-0.82 (test code = 415) EOSINOPHILS ABSOLUTE COUNT 0.00 K/ L 0.04-0.54 L (BEAKER) (test code = 416) BASOPHILS ABSOLUTE COUNT (BEAKER) 0.03 K/ L 0.01-0.08 (test code = 417) IMMATURE GRANULOCYTES-RELATIVE 2 % 0-1 H PERCENT (BEAKER) (test code = 2801) POCT-GLUCOSE [id number] 23:33:00 Test Item Value Reference Range Interpretation Comments POC-GLUCOSE METER 77 mg/dL 70-110 : TESTED A T [facility] 6720 (RENEA) (test code = [place], 1538) [address]: Floor Steward/Stewardess/Techni tressa ID = [id number] for Cart er (agency)Selin jacquelyn 2D Echo W/Doppler(CW/PW/Color)2021-03-31 17:56:10Ejection FractionSLEH ECHO HEARTLAB MKCKESSON CPACSInterface, External Ris In - 03/31/2021 5:56 PM C DTTransthoracic Echocardiography Report (TTE) Demographics Patient Name KEVIN HAMMOND Date of Study 03/30/2021 Gender Male Visit Number [id number] Race Unknown Room Number C628 Number Date of 1945 Referring Physician JD JEFFERSON Age 75 year(s) 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 The left ventricle is chambersize (by vol index) is normal. Normal LV wall thickness. All of the LV segments contract normally. Estimated LVEF by qualitative assessment is normal (55-60%). LA size is mildly enlarged. 2. Normal right ventricle structure and function. Right atrium dilated. Estimated peak systolic PA pressure is 30-35 mmHg (normal range). 3. Btpv-xk-zrphglel mitral regurgitation. Previous Study No prior exam available for comparison. Signature El ectronically signed by Doc Tolbert MD(Interpreting physician) on 03/31/2021 05:56 PM Findings Left Ventricle The left ventricle is chamber size (by vol index) is normal (male - LVED vol - 34-74ml/m2). Normal LV wall thickness. All of the LV segments contract normally . Estimated LVEF by qualitative assessment is normal (55-60%) .Left Atrium LA size is mildly enlarged . Right Ventricle Normal right ventricle structure and function. Right Atrium Right atrium dilated. Aortic Valve Mild AoVcusp thickening. Mild aortic regurgitation. Mitral Valve Mild MV leaflet thickening. Hyhk-jb-jvoigxoi mitral regurgitation. Tricuspid Valve Trace tricuspid regurgitation. Estimated peak systolic PA pressure is 30-35 mmHg (normal range) . Pulmonic Valve Normal PV structure and function by limited views and Doppler. Aorta Aortic root size (SInus of Valsalva diameter) is normal . Pericardium No evidence of pericardial effusion. IVC/SVC/PA/PV/Pleural The estimated RA pressure by IVC dynamics indeterminate . Chambers/Structures Left Atrium LA Dimension: 4.33 cm LA Area: 23.88 cm^2 LA Volume: 78.25 ml LA Vol. Index: 39 ml/m^2 Left Ventricle LVIDd: 5.31 cm LV SeptumDiastolic: 1.06 cm LV PW Diastolic: 1.07 cm LVEDV Mandel's:70.4 ml LVEDVI: 35 ml/m^2 LVOT Diameter: 2.11 cm Right Atrium RA Area: 21.32 cm^2 Aorta Ao Root S of Deborah.: 3.53 cm Doppler/Quantitative Measurements Mitral Valve MV Peak E-Wave: 0.76 m/s MV Peak A-Wave: 0.57 m/s E/A Ratio: 1.33 Peak Gradient: 2.31 mmHg Deceleration Time: 177.3 msec MV Vasyl. Peak: Tissue Doppler E' Lateral Velocity: 0.12 m/s A' Lateral Velocity: 0.05 m/s E/E': 6.43 LVOT Peak Velocity: 1.15 m/s Peak Gradient: 5.26 mmHg Mean Velocity: 0.69 m/s Mean Gradient: 2.43 mmHg LVOT Diameter: 2.11 cm LVOT VTI: 20.35 cm LVOT Area: 3.5 cm^2 LVOT SV:71.12 ml LVOT CO: 5.76 l/min LVOT CI: 2.89 l/min/m^2[facility] 2021-03-31 15:39:00 Test Item Value Reference Range Interpretation Comments POC-GLUCOSE METER 81 mg/dL 70-110 : Notified RN/MD: TESTED (BEAKER) (test code AT [facility] [address] = 1538) [place], [address]: Floor Steward/Stewardess/Techni tressa ID = [id number] for Jose J (contract) [facility] [id number] 13:30:00 Test Item Value Reference Range Interpretation Comments MAGNESIUM (BEAKER) (test code = 1.4 mg/dL 1.6-2.6 L 627) Floor Steward/Stewardess ID Doron HOOD [id number] 13:30:00 Test Item Value Reference Range Interpretation Comments PHOSPHORUS (BEAKER) (test code = 2.3 mg/dL 2.3-4.7 604) Floor Steward/Stewardess ID Doron HOOD FHEPATIC FUNCTION [id number] 13:30:00 Test Item Value Reference Range Interpretation Comments TOTAL PROTEIN (BEAKER) (test code = 5.9 gm/dL 6.0-8.3 L 770) ALBUMIN (BEAKER) (test code = 1145) 2.0 g/dL 3.5-5.0 L BILIRUBIN TOTAL (BEAKER) (test code 0.4 mg/dL 0.2-1.2 = 377) BILIRUBIN DIRECT (BEAKER) (test 0.2 mg/dL 0.1-0.5 code = 706) ALKALINE PHOSPHATASE (BEAKER) (test 43 U/L 40-150 code = 346) AST (SGOT) (BEAKER) (test code = 37 U/L 5-34 H 353) ALT (SGPT) (BEAKER) (test code = 19 U/L 6-55 347) Floor Steward/Stewardess ID Doron HOOD FCOMPREHENSIVE METABOLIC [id number] 13:30:00 Test Item Value Reference Range Interpretation Comments TOTAL PROTEIN 5.9 gm/dL 6.0-8.3 L (BEAKER) (test code = 770) ALBUMIN (BEAKER) 2.0 g/dL 3.5-5.0 L (test code = 1145) ALKALINE PHOSPHATASE 43 U/L 40-150 (BEAKER) (test code = 346) BILIRUBIN TOTAL 0.4 mg/dL 0.2-1.2 (BEAKER) (test code = 377) SODIUM (BEAKER) (test 147 meq/L 136-145 H code = 381) POTASSIUM (BEAKER) 3.5 meq/L 3.5-5.1 (test code = 379) CHLORIDE (BEAKER) 118 meq/L 98-107 H (test code = 382) CO2 (BEAKER) (test 22 meq/L 22-29 code = 355) BLOOD UREA NITROGEN 37 mg/dL 7-21 H (BEAKER) (test code = 354) CREATININE (BEAKER) 0.78 mg/dL 0.57-1.25 (test code = 358) GLUCOSE RANDOM 95 mg/dL 70-105 (BEAKER) (test code = 652) CALCIUM (BEAKER) 7.6 mg/dL 8.4-10.2 L (test code = 697) AST (SGOT) (BEAKER) 37 U/L 5-34 H (test code = 353) ALT (SGPT) (BEAKER) 19 U/L 6-55 (test code = 347) EGFR (BEAKER) (test 97 mL/min/1.73 ESTIMA SAULO GFR IS code = 1092) sq m NOT ACCURATE CREATININE CLEARANCE IN PREDICTING GLOMERULAR FILTRATION RATE . ESTIMATED GFR I S NOT APPLICABLE FOR DIALYSIS PATIEN TS. Floor Steward/Stewardess ID - ERWIN FVancomycin level, [id number] 13:28:00 Test Item Value Reference Range Interpretation Comments Vancomycin Rm (test 43.6 ug/mL code = 33719-4) STACY (test code = Reference Range: No STACY) NormalsOperator ID - ERWIN F [facility] CenterVANCOMYCIN LEVEL, [id number] 13:28:00 Test Item Value Reference Range Interpretation Comments VANCOMYCIN RANDOM (BEAKER) (test 43.6 ug/mL code = 523) Reference Range: No NormalsOperator ID - ERWIN FCALCIUM, [id number] 13:24:00 Test Item Value Reference Range Interpretation Comments CALCIUM IONIZED (BEAKER) (test 1.09 mmol/L 1.12-1.27 L code = 698) PH, BLOOD (BEAKER) (test code = 7.38 1810) CBC W/PLT COUNT & AUTO [id number] 13:14:00 Test Item Value Reference Range Interpretation Comments WHITE BLOOD CELL COUNT (BEAKER) 11.2 K/ L 3.5-10.5 H (test code = 775) RED BLOOD CELL COUNT (BEAKER) 3.25 M/ L 4.63-6.08 L (test code = 761) HEMOGLOBIN (BEAKER) (test code = 10.6 GM/DL 13.7-17.5 L 410) HEMATOCRIT (BEAKER) (test code = 34.3 % 40.1-51.0 L 411) MEAN CORPUSCULAR VOLUME (BEAKER) 105.5 fL 79.0-92.2 H (test code = 753) MEAN CORPUSCULAR HEMOGLOBIN 32.6 pg 25.7-32.2 H (BEAKER) (test code = 751) MEAN CORPUSCULAR HEMOGLOBIN CONC 30.9 GM/DL 32.3-36.5 L (BEAKER) (test code = 752) RED CELL DISTRIBUTION WIDTH 15.6 % 11.6-14.4 H (BEAKER) (test code = 412) PLATELET COUNT (BEAKER) (test 268 K/CU MM 150-450 code = 756) MEAN PLATELET VOLUME (BEAKER) 10.6 fL 9.4-12.4 (test code = 754) NUCLEATED RED BLOOD CELLS 0 /100 WBC 0-0 (BEAKER) (test code = 413) NEUTROPHILS RELATIVE PERCENT 89 % (BEAKER) (test code = 429) LYMPHOCYTES RELATIVE PERCENT 6 % (BEAKER) (test code = 430) MONOCYTES RELATIVE PERCENT 4 % (BEAKER) (test code = 431) EOSINOPHILS RELATIVE PERCENT 0 % (BEAKER) (test code = 432) BASOPHILS RELATIVE PERCENT 0 % (BEAKER) (test code = 437) NEUTROPHILS ABSOLUTE COUNT 10.04 K/ L 1.78-5.38 H (BEAKER) (test code = 670) LYMPHOCYTES ABSOLUTE COUNT 0.64 K/ L 1.32-3.57 L (BEAKER) (test code = 414) MONOCYTES ABSOLUTE COUNT (BEAKER) 0.40 K/ L 0.30-0.82 (test code = 415) EOSINOPHILS ABSOLUTE COUNT 0.00 K/ L 0.04-0.54 L (BEAKER) (test code = 416) BASOPHILS ABSOLUTE COUNT (BEAKER) 0.01 K/ L 0.01-0.08 (test code = 417) IMMATURE GRANULOCYTES-RELATIVE 1 % 0-1 PERCENT (BEAKER) (test code = 2801) POCT-GLUCOSE [id number] 12:20:00 Test Item Value Reference Range Interpretation Comments POC-GLUCOSE METER 81 mg/dL 70-110 : Notified RN/MD: TESTED (BEAKER) (test code AT [place] [address] [address] = 1538) [facility], [facility] 30: Floor Steward/Stewardess/Techni tressa ID = [id number] for Lux (contract), Shola barton POCT-GLUCOSE [id number] 10:10:00 Test Item Value Reference Range Interpretation Comments POC-GLUCOSE METER 90 mg/dL 70-110 : Notified RN/MD: TESTED (BEAKER) (test code AT [place] [address] [address] = 1538) [facility], [facility] 30: Floor Steward/Stewardess/Techni tressa ID = [id number] for Lux (contract), Shola oralia RAD, ABDOMEN/KUB, 1 VIEW [id number] 01:44:00For bedside G-tube study. Call radiology for KUB when gastroview, 60 cc syringe, and water for flushing are at the bedside and nursing is ready/Reason for exam:->G-tube studyShould this be performedat the bedside?->Yes [facility] : 1945 Sex: MFINAL REPORT EXAM/TECHNIQUE: Supine radiograph of the abdomen. INDICATION: Abdominal radiography from 03/30/2021. COMPARISON: Abdominal radiography from 03/30/2021. FINDINGS: Gastrostomy tube is present there is contrast in the stomach and in the small bowel. No acute osseous process. Impression: Gastrostomy tube is in the stomach in the small bowel. Signed: Galileo Cuello Verified Date/Time: 03/31/2021 01:44:07 Electronically signed by: GALILEO CUELLO MD on03/31/2021 01:44 AMXR abdomen / KUB 1 [id number] 01:44:00Interface, External Ris In - 03/31/2021 1:47 AM CDTFINAL REPORT EXAM/TECHNIQUE: Supine radiograph of the abdomen. INDICATION: Abdominal radiography from 03/30/2021. COMPARISON: Abdominal radiography from 03/30/2021. FINDINGS: Gastrostomy tube is present there is contrast in the stomach and in the small bowel. No acute osseous process. Impression: Gastrostomy tube is in the stomach in the small bowel. Signed: Galileo Cuello Verified Date/Time: 03/31/2021 01:44:07 [facility]BAS[facility]OLIC [id number] 00:40:00 Test Item Value Reference Range Interpretation Comments SODIUM (BEAKER) 144 meq/L 136-145 (test code = 381) POTASSIUM (BEAKER) 3.7 meq/L 3.5-5.1 (test code = 379) CHLORIDE (BEAKER) 116 meq/L 98-107 H (test code = 382) CO2 (BEAKER) (test 20 meq/L 22-29 L code = 355) BLOOD UREA NITROGEN 38 mg/dL 7-21 H (BEAKER) (test code = 354) CREATININE (BEAKER) 0.94 mg/dL 0.57-1.25 (test code = 358) GLUCOSE RANDOM 157 mg/dL 70-105 H (BEAKER) (test code = 652) CALCIUM (BEAKER) 7.5 mg/dL 8.4-10.2 L (test code = 697) EGFR (BEAKER) (test 78 mL/min/1.73 ESTIMA SAULO GFR IS code = 1092) sq m NOT ACCURATE CREATININE CLEARANCE IN PREDICTING GLOMERULAR FILTRATION RATE . ESTIMATED GFR I S NOT APPLICABLE FOR DIALYSIS PATIEN TS. Floor Steward/Stewardess ID - DBPOCT-GLUCOSE [id number] 21:42:00 Test Item Value Reference Range Interpretation Comments POC-GLUCOSE METER 117 mg/dL 70-110 H : TESTED A T [facility] 6720 ([facility]) (test code [facility], = 1538) [address]: Floor Steward/Stewardess/Techni tressa ID = [id number] for Kelsie anthony (agency)Marlo POCT-GLUCOSE [id number] 17:39:00 Test Item Value Reference Range Interpretation Comments POC-GLUCOSE METER 140 mg/dL 70-110 H : TESTED A T [facility] 6720 ([facility]) (test code = ROMINA Payne [facility], 1538) [address]: Floor Steward/Stewardess/Techni tressa ID = [id number] for AG UILARJOSE RAD, ABDOMEN/KUB, 1 VIEW [id number] 17:36:00Reason for exam:->peg placementShould this be performed at the bedside?->Yes [facility] [place] : 1945 Sex: MFINAL REPORT EXAM: KUB CLINICAL HISTORY: Feeding tube insertion COMPARISON: March 28, 2021 FINDINGS: A percutaneous gastrostomy tube is noted overlying the midline abdomen. The patient is also status post lap band surgery with postoperative changes. There is nonobstructive bowel gas pattern. There is no evidence of pneumoperitoneum or pathological calcifications. The regional osseous structures are unremarkable. Signed: Jazmín Lee MDReport Verified Date/Time: 03/30/2021 17:36:33 Reading Location: [facility] C013W Consult Reading Room C METABOLIC [id number] 17:12:00 Test Item Value Reference Range Interpretation Comments SODIUM (BEAKER) 147 meq/L 136-145 H (test code = 381) POTASSIUM (BEAKER) 3.6 meq/L 3.5-5.1 (test code = 379) CHLORIDE (BEAKER) 117 meq/L 98-107 H (test code = 382) CO2 (BEAKER) (test 21 meq/L 22-29 L code = 355) BLOOD UREA NITROGEN 41 mg/dL 7-21 H (BEAKER) (test code = 354) CREATININE (BEAKER) 0.96 mg/dL 0.57-1.25 (test code = 358) GLUCOSE RANDOM 134 mg/dL 70-105 H (BEAKER) (test code = 652) CALCIUM (BEAKER) 7.3 mg/dL 8.4-10.2 L (test code = 697) EGFR (BEAKER) (test 76 mL/min/1.73 ESTIMA SAULO GFR IS code = 1092) sq m NOT ACCURATE CREATININE CLEARANCE IN PREDICTING GLOMERULAR FILTRATION RATE . ESTIMATED GFR I S NOT APPLICABLE FOR DIALYSIS PATIEN TS. Floor Steward/Stewardess ID - DBPOCT-GLUCOSE [id number] 13:04:00 Test Item Value Reference Range Interpretation Comments POC-GLUCOSE METER 101 mg/dL 70-110 : TESTED A T [facility] 67[address] (BEAKER) (test code = [place], 1538) [address]: Floor Steward/Stewardess/Techni tressa ID = [id number] for JOSE JOHNSON U/S, RENAL, [id number] 11:52:00Reason for exam:->akiShould this be performed at the bedside?->Yes [facility] : 1945 Sex: MFINAL REPORT Renal ultrasound Clinical History: Acute renal injury Discussion: Sonographic evaluation of the kidneys is performed. The kidneys have normal size and elevated cortical echogenicity. The right kidney measures 9.7 cm in length. The left kidney measures 9.6 cm inlength. There is no hydronephrosis or shadowing renal calculus. In the interpolar region right kidney, a 1.6 x 1.2 x 1.2 cm anechoic lesion is noted most compatible with a cyst. No perinephric fluid collection is seen. The bladder is contracted with a Gray catheter. Impression: 1. Small right renal cyst. 2. Elevated renal cortical echogenicity most compatible with medical renal disease. Signed: Jazmín Lee MDReport Verified Date/Time: 03/30/2021 11:52:42 Reading Location: [address] Consult Reading Room US renal [id number] 11:52:00Interface, External Ris In - 03/30/2021 11:54 AM CDTFINAL REPORT Renal ultrasound Clinical History: Acute renal injury Discussion: Sonographic evaluation of the kidneys is performed. The kidneys have normal size and elevated cortical echogenicity. The right kidney measures 9.7 cm in length. The left kidney measures 9.6 cm in length. There is no hydronephrosis or shadowing renal calculus. In the interpolar region right kidney, a 1.6 x 1.2 x 1.2 cm anechoic lesion is noted mostcompatible with a cyst. No perinephric fluid collection is seen. The bladder is contracted with a Gray catheter. Impression: 1. Small right renal cyst. 2. Elevated renal cortical echogenicity most compatible with medical renal disease. Signed: Jazmín Lee MDReport Verified Date/Time: 03/30/2021 11:52:42 Reading Location: [facility] C013W Consult Reading Room [facility] METABOLIC [id number] 10:57:00 Test Item Value Reference Range Interpretation Comments SODIUM (BEAKER) 148 meq/L 136-145 H (test code = 381) POTASSIUM (BEAKER) 3.8 meq/L 3.5-5.1 (test code = 379) CHLORIDE (BEAKER) 119 meq/L 98-107 H (test code = 382) CO2 (BEAKER) (test 22 meq/L 22-29 code = 355) BLOOD UREA NITROGEN 44 mg/dL 7-21 H (BEAKER) (test code = 354) CREATININE (BEAKER) 1.09 mg/dL 0.57-1.25 (test code = 358) GLUCOSE RANDOM 136 mg/dL 70-105 H (BEAKER) (test code = 652) CALCIUM (BEAKER) 7.4 mg/dL 8.4-10.2 L (test code = 697) EGFR (BEAKER) (test 66 mL/min/1.73 ESTIMA SAULO GFR IS code = 1092) sq m NOT ACCURATE CREATININE CLEARANCE IN PREDICTING GLOMERULAR FILTRATION RATE . ESTIMATED GFR I S NOT APPLICABLE FOR DIALYSIS PATIEN TS. Floor Steward/Stewardess ID - [facility] METABOLIC [id number] 05:59:00 Test Item Value Reference Range Interpretation Comments SODIUM (BEAKER) 152 meq/L 136-145 H (test code = 381) POTASSIUM (BEAKER) 3.8 meq/L 3.5-5.1 (test code = 379) CHLORIDE (BEAKER) 122 meq/L 98-107 H (test code = 382) CO2 (BEAKER) (test 22 meq/L 22-29 code = 355) BLOOD UREA NITROGEN 46 mg/dL 7-21 H (BEAKER) (test code = 354) CREATININE (BEAKER) 1.24 mg/dL 0.57-1.25 (test code = 358) GLUCOSE RANDOM 137 mg/dL 70-105 H (BEAKER) (test code = 652) CALCIUM (BEAKER) 7.7 mg/dL 8.4-10.2 L (test code = 697) EGFR (BEAKER) (test 57 mL/min/1.73 ESTIMA SAULO GFR IS code = 1092) sq m NOT ACCURATE CREATININE CLEARANCE IN PREDICTING GLOMERULAR FILTRATION RATE . ESTIMATED GFR I S NOT APPLICABLE FOR DIALYSIS PATIEN TS. Floor Steward/Stewardess ID - DBCREATINE KINASE (CK)2021-03-30 05:40:00 Test Item Value Reference Range Interpretation Comments CREATINE KINASE TOTAL (BEAKER) (test 43 U/L 29-200 code = 380) Floor Steward/Stewardess ID - [id number] 05:33:00 Test Item Value Reference Range Interpretation Comments MAGNESIUM (BEAKER) (test code = 1.4 mg/dL 1.6-2.6 L 627) Floor Steward/Stewardess ID - [id number] 05:33:00 Test Item Value Reference Range Interpretation Comments PHOSPHORUS (BEAKER) (test code = 1.6 mg/dL 2.3-4.7 L 604) Floor Steward/Stewardess ID - DBHEPATIC FUNCTION [id number] 05:33:00 Test Item Value Reference Range Interpretation Comments TOTAL PROTEIN (BEAKER) (test code = 6.8 gm/dL 6.0-8.3 770) ALBUMIN (BEAKER) (test code = 1145) 2.3 g/dL 3.5-5.0 L BILIRUBIN TOTAL (BEAKER) (test code 0.3 mg/dL 0.2-1.2 = 377) BILIRUBIN DIRECT (BEAKER) (test 0.2 mg/dL 0.1-0.5 code = 706) ALKALINE PHOSPHATASE (BEAKER) (test 54 U/L 40-150 code = 346) AST (SGOT) (BEAKER) (test code = 16 U/L 5-34 353) ALT (SGPT) (BEAKER) (test code = 8 U/L 6-55 347) Floor Steward/Stewardess ID - DBCREATINE KINASE (CK)2021-03-30 05:33:00 Test Item Value Reference Range Interpretation Comments CREATINE KINASE TOTAL (BEAKER) (test 42 U/L 29-200 code = 380) Floor Steward/Stewardess ID - DBC-REACTIVE [id number] 05:33:00 Test Item Value Reference Range Interpretation Comments C-REACTIVE PROTEIN (BEAKER) (test 10.11 mg/dL 0.00-0.50 H code = 676) Floor Steward/Stewardess ID - DBCALCIUM, [id number] 05:19:00 Test Item Value Reference Range Interpretation Comments CALCIUM IONIZED (BEAKER) (test 1.08 mmol/L 1.12-1.27 L code = 698) PH, BLOOD (BEAKER) (test code = 7.38 1810) POCT-GLUCOSE [id number] 05:14:00 Test Item Value Reference Range Interpretation Comments POC-GLUCOSE METER 127 mg/dL 70-110 H : TESTED A T [facility] 6720 (BEAKER) (test code [facility], = 1538) [id number]: Floor Steward/Stewardess/Techni tressa ID = [id number] for Kelsie anthony (agency)Marlo CBC W/PLT COUNT & AUTO [id number] 05:03:00 Test Item Value Reference Range Interpretation Comments WHITE BLOOD CELL COUNT (BEAKER) 9.5 K/ L 3.5-10.5 (test code = 775) RED BLOOD CELL COUNT (BEAKER) 3.50 M/ L 4.63-6.08 L (test code = 761) HEMOGLOBIN (BEAKER) (test code = 11.3 GM/DL 13.7-17.5 L 410) HEMATOCRIT (BEAKER) (test code = 38.6 % 40.1-51.0 L 411) MEAN CORPUSCULAR VOLUME (BEAKER) 110.3 fL 79.0-92.2 H (test code = 753) MEAN CORPUSCULAR HEMOGLOBIN 32.3 pg 25.7-32.2 H (BEAKER) (test code = 751) MEAN CORPUSCULAR HEMOGLOBIN CONC 29.3 GM/DL 32.3-36.5 L (BEAKER) (test code = 752) RED CELL DISTRIBUTION WIDTH 16.5 % 11.6-14.4 H (BEAKER) (test code = 412) PLATELET COUNT (BEAKER) (test 289 K/CU MM 150-450 code = 756) MEAN PLATELET VOLUME (BEAKER) 10.9 fL 9.4-12.4 (test code = 754) NUCLEATED RED BLOOD CELLS 0 /100 WBC 0-0 (BEAKER) (test code = 413) NEUTROPHILS RELATIVE PERCENT 91 % (BEAKER) (test code = 429) LYMPHOCYTES RELATIVE PERCENT 7 % (BEAKER) (test code = 430) MONOCYTES RELATIVE PERCENT 2 % (BEAKER) (test code = 431) EOSINOPHILS RELATIVE PERCENT 0 % (BEAKER) (test code = 432) BASOPHILS RELATIVE PERCENT 0 % (BEAKER) (test code = 437) NEUTROPHILS ABSOLUTE COUNT 8.59 K/ L 1.78-5.38 H (BEAKER) (test code = 670) LYMPHOCYTES ABSOLUTE COUNT 0.62 K/ L 1.32-3.57 L (BEAKER) (test code = 414) MONOCYTES ABSOLUTE COUNT (BEAKER) 0.18 K/ L 0.30-0.82 L (test code = 415) EOSINOPHILS ABSOLUTE COUNT 0.00 K/ L 0.04-0.54 L (BEAKER) (test code = 416) BASOPHILS ABSOLUTE COUNT (BEAKER) 0.01 K/ L 0.01-0.08 (test code = 417) IMMATURE GRANULOCYTES-RELATIVE 1 % 0-1 PERCENT (BEAKER) (test code = 2801) POCT-GLUCOSE [id number] 23:51:00 Test Item Value Reference Range Interpretation Comments POC-GLUCOSE METER 135 mg/dL 70-110 H : TESTED A T [facility] 6720 (BEAKER) (test code [facility], = 1538) [address]: Floor Steward/Stewardess/Techni tressa ID = [id number] for Kelsie anthony (agency)Marlo Creatinine, random [id number] 22:56:00 Test Item Value Reference Range Interpretation Comments Creatinine, Ur 88.5 mg/dL (test code = 2161-8) STACY (test code = Reference Range: No STACY) NormalsOperator ID - DB [facility] [id number] 22:56:00 Test Item Value Reference Range Interpretation Comments Sodium Urine (test 80 meq/L code = 2955-3) STACY (test code = Reference Range: No STACY) NormalsOperator ID - DB [facility] CenterCREATININE, RANDOM [id number] 22:56:00 Test Item Value Reference Range Interpretation Comments CREATININE URINE (BEAKER) (test 88.5 mg/dL code = 375) Reference Range: No NormalsOperator ID - DBSODIUM, RANDOM [id number] 22:56:00 Test Item Value Reference Range Interpretation Comments SODIUM URINE (BEAKER) (test code = 80 meq/L 243) Reference Range: No NormalsOperator ID - DBOsmolality, [id number] 22:15:00 Test Item Value Reference Range Interpretation Comments Osmolality Serum (test 344 See_Comment H [Aut omated message] code = 2692-2) The system [employer] generated this result transmitted ref erence range: 275 - 29 5 mOsm/kg. The reference range was not used to int erpret this result as normal/abnormal . Lab Interpretation (test Abnormal code = 69757-6) [facility] CenterOSMOLALITY, [id number] 22:15:00 Test Item Value Reference Range Interpretation Comments OSMOLALITY, SERUM (BEAKER) (test 344 mOsm/kg 275-295 H code = 615) BASIC METABOLIC [id number] 22:15:00 Test Item Value Reference Range Interpretation Comments SODIUM (BEAKER) 157 meq/L 136-145 H (test code = 381) POTASSIUM (BEAKER) 3.5 meq/L 3.5-5.1 (test code = 379) CHLORIDE (BEAKER) 124 meq/L 98-107 H (test code = 382) CO2 (BEAKER) (test 24 meq/L 22-29 code = 355) BLOOD UREA NITROGEN 48 mg/dL 7-21 H (BEAKER) (test code = 354) CREATININE (BEAKER) 1.30 mg/dL 0.57-1.25 H (test code = 358) GLUCOSE RANDOM 131 mg/dL 70-105 H (BEAKER) (test code = 652) CALCIUM (BEAKER) 7.8 mg/dL 8.4-10.2 L (test code = 697) EGFR (BEAKER) (test 54 mL/min/1.73 ESTIMA SAULO GFR IS code = 1092) sq m NOT ACCURATE CREATININE CLEARANCE IN PREDICTING GLOMERULAR FILTRATION RATE . ESTIMATED GFR I S NOT APPLICABLE FOR DIALYSIS PATIEN TS. Floor Steward/Stewardess ID - DBOsmolality, [id number] 22:10:00 Test Item Value Reference Range Interpretation Comments Osmolality, Ur (test code 769 See_Comment [ Automated message] = 2695-5) The system [employer] h generated this result transmitted ref erence range: 50-1,200 mOsm/kg mOsm/kg . The reference range was not used to int erpret this result as normal/abnormal . Lab Interpretation (test Normal code = 44758-9) [facility] CenterOSMOLALITY, [id number] 22:10:00 Test Item Value Reference Range Interpretation Comments OSMOLALITY URINE 769 mOsm/kg See_Comment [Automated message] (BEAKER) (test code = The sy stem which 614) generated this result transmitted ref erence range: 50-1,200 mOsm/kg. The reference range was not used to int erpret this result as normal/abnormal . Protein, random [id number] 18:44:00 Test Item Value Reference Range Interpretation Comments Protein, Urine (test code = <68 0-14 H 2888-6) STACY (test code = STACY) Floor Steward/Stewardess ID - DB Lab Interpretation (test Abnormal code = 25053-6) [facility] CenterPROTEIN, RANDOM [id number] 18:44:00 Test Item Value Reference Range Interpretation Comments PROTEIN, URINE (BEAKER) (test code = < mg/dL 0-14 H 1569) Floor Steward/Stewardess ID - DBCREATININE, RANDOM [id number] 18:22:00 Test Item Value Reference Range Interpretation Comments CREATININE URINE (BEAKER) (test 105.0 mg/dL code = 375) Reference Range: No NormalsOperator ID - DBSODIUM, RANDOM [id number] 18:22:00 Test Item Value Reference Range Interpretation Comments SODIUM URINE (BEAKER) (test code = 47 meq/L 243) Reference Range: No NormalsOperator ID - DBOSMOLALITY, [id number] 18:03:00 Test Item Value Reference Range Interpretation Comments OSMOLALITY URINE 662 mOsm/kg See_Comment [Automated message] (BEAKER) (test code = The sy stem which 614) generated this result transmitted ref erence range: 50-1,200 mOsm/kg. The reference range was not used to int erpret this result as normal/abnormal . POCT-GLUCOSE [id number] 17:36:00 Test Item Value Reference Range Interpretation Comments POC-GLUCOSE METER 146 mg/dL 70-110 H : TESTED A T [facility] 6720 (BEAKER) (test code = [place], 1538) [address]: Floor Steward/Stewardess/Techni tressa ID = [id number] for Analisa monroy (contract)Yuli BASIC METABOLIC [id number] 17:08:00 Test Item Value Reference Range Interpretation Comments SODIUM (BEAKER) 161 meq/L 136-145 HH (test code = 381) POTASSIUM (BEAKER) 3.7 meq/L 3.5-5.1 (test code = 379) CHLORIDE (BEAKER) 128 meq/L 98-107 H (test code = 382) CO2 (BEAKER) (test 23 meq/L 22-29 code = 355) BLOOD UREA NITROGEN 48 mg/dL 7-21 H (BEAKER) (test code = 354) CREATININE (BEAKER) 1.34 mg/dL 0.57-1.25 H (test code = 358) GLUCOSE RANDOM 140 mg/dL 70-105 H (BEAKER) (test code = 652) CALCIUM (BEAKER) 8.2 mg/dL 8.4-10.2 L (test code = 697) EGFR (BEAKER) (test 52 mL/min/1.73 ESTIMA SAULO GFR IS code = 1092) sq m NOT ACCURATE CREATININE CLEARANCE IN PREDICTING GLOMERULAR FILTRATION RATE . ESTIMATED GFR I S NOT APPLICABLE FOR DIALYSIS PATIEN TS. Floor Steward/Stewardess ID - AAHAMIDValproic acid level, [id number] 17:07:00 Test Item Value Reference Range Interpretation Comments Valproic Acid, Total <2 50-100 L (test code = 4086-5) STACY (test code = STACY) Therapeutic range for some clinical conditions may be >100 ug/mLOperator ID - AAHAMID Lab Interpretation (test Abnormal code = 76248-0) [facility] CenterPhenytoin level, [id number] 17:07:00 Test Item Value Reference Range Interpretation Comments Phenytoin (test code = <0.5 10-20 L 3968-5) STACY (test code = STACY) Floor Steward/Stewardess ID - AAHAMID Lab Interpretation (test Abnormal code = 64427-7) [facility] CenterVALPROIC ACID LEVEL, [id number] 17:07:00 Test Item Value Reference Range Interpretation Comments VALPROIC ACID TOTAL (BEAKER) (test < ug/mL 50-100 L code = 924) Therapeutic range for some clinical conditions may be >100 ug/mLOperator ID - AAHAMIDPHENYTOIN LEVEL, [id number] 17:07:00 Test Item Value Reference Range Interpretation Comments PHENYTOIN (DILANTIN) (BEAKER) (test < ug/mL 10.0-20.0 L code = 605) Floor Steward/Stewardess ID - AAHAMIDBASIC METABOLIC [id number] 13:35:00 Test Item Value Reference Range Interpretation Comments SODIUM (BEAKER) 161 meq/L 136-145 HH (test code = 381) POTASSIUM (BEAKER) 3.7 meq/L 3.5-5.1 Specimen slightly (test code = 379) hemolyzed CHLORIDE (BEAKER) 128 meq/L 98-107 H (test code = 382) CO2 (BEAKER) (test 21 meq/L 22-29 L code = 355) BLOOD UREA NITROGEN 48 mg/dL 7-21 H (BEAKER) (test code = 354) CREATININE (BEAKER) 1.42 mg/dL 0.57-1.25 H Specimen slightly (test code = 358) hemolyzed GLUCOSE RANDOM 130 mg/dL 70-105 H (BEAKER) (test code = 652) CALCIUM (BEAKER) 8.0 mg/dL 8.4-10.2 L (test code = 697) EGFR (BEAKER) (test 48 mL/min/1.73 ESTIMA SAULO GFR IS code = 1092) sq m NOT ACCURATE CREATININE CLEARANCE IN PREDICTING GLOMERULAR FILTRATION RATE . ESTIMATED GFR I S NOT APPLICABLE FOR DIALYSIS PATIEN TS. Floor Steward/Stewardess ID - AAHAMIDPOCT-GLUCOSE [id number] 12:55:00 Test Item Value Reference Range Interpretation Comments POC-GLUCOSE METER 113 mg/dL 70-110 H : TESTED A T [facility] 6720 (BEAKER) (test code = [place], 1538) [address]: Floor Steward/Stewardess/Techni tressa ID = [id number] for Analisa monroy (contract), Yuli [employer] BASIC METABOLIC [id number] 10:00:00 Test Item Value Reference Range Interpretation Comments SODIUM (BEAKER) 163 meq/L 136-145 HH (test code = 381) POTASSIUM (BEAKER) 3.8 meq/L 3.5-5.1 (test code = 379) CHLORIDE (BEAKER) 129 meq/L 98-107 H (test code = 382) CO2 (BEAKER) (test 24 meq/L 22-29 code = 355) BLOOD UREA NITROGEN 46 mg/dL 7-21 H (BEAKER) (test code = 354) CREATININE (BEAKER) 1.42 mg/dL 0.57-1.25 H (test code = 358) GLUCOSE RANDOM 125 mg/dL 70-105 H (BEAKER) (test code = 652) CALCIUM (BEAKER) 8.3 mg/dL 8.4-10.2 L (test code = 697) EGFR (BEAKER) (test 48 mL/min/1.73 ESTIMA SAULO GFR IS code = 1092) sq m NOT ACCURATE CREATININE CLEARANCE IN PREDICTING GLOMERULAR FILTRATION RATE . ESTIMATED GFR I S NOT APPLICABLE FOR DIALYSIS PATIEN TS. Floor Steward/Stewardess ID - AAHAMIDB-type Natriuretic Factor (BNP)2021-03-29 09:49:00 Test Item Value Reference Range Interpretation Comments BNP (test code = 77570-2) 315 pg/mL 0-100 H STACY (test code = STACY) Floor Steward/Stewardess ID - AAHAMID Lab Interpretation (test Abnormal code = 68487-2) [facility] CenterB-TYPE NATRIURETIC FACTOR (BNP)2021-03-29 09:49:00 Test Item Value Reference Range Interpretation Comments B-TYPE NATRIURETIC PEPTIDE (BEAKER) 315 pg/mL 0-100 H (test code = 700) Floor Steward/Stewardess ID - AAHAMIDVANCOMYCIN LEVEL, [id number] 09:45:00 Test Item Value Reference Range Interpretation Comments VANCOMYCIN RANDOM (BEAKER) (test 6.7 ug/mL code = 523) Reference Range: No NormalsOperator ID - AAHAMIDManual [id number] 07:17:00 Test Item Value Reference Range Interpretation Comments % Neutros (test code = 85 % 2815) % Lymphs (test code = 2 % 2816) % Monos (test code = 1 % 2817) % Bands (test code = 12 % 0-10 H 2826) # Neutros (test code = 7.48 K/ul 1.78-5.38 H 2830) # Lymphs (test code = 0.18 K/ul 1.32-3.57 L 2831) # Monos (test code = 0.09 K/uL 0.3-0.82 L 2832) # Bands (test code = 1.06 K/uL 0-0.8 H 2840) Total Counted (test 100 code = 1351) WBC Morphology (test Normal code = 487) Platelet Morphology Normal (test code = 486) Polychromasia (test 1+ few code = 478) Anisocytosis (test code 1+ few = 961) Microcytes (test code = 1+ few 965) Artifact (test code = Present 3432) Platelet Conc (test Adequate code = 3438) STACY (test code = STACY) Floor Steward/Stewardess ID - Daisy CaseBean comments: Slide comments: Lab Interpretation Abnormal (test code = 81778-7) [facility] W/PLT COUNT & AUTO [id number] 07:17:00 Test Item Value Reference Range Interpretation Comments WHITE BLOOD CELL COUNT (BEAKER) 8.8 K/ L 3.5-10.5 (test code = 775) RED BLOOD CELL COUNT (BEAKER) 3.29 M/ L 4.63-6.08 L (test code = 761) HEMOGLOBIN (BEAKER) (test code = 10.6 GM/DL 13.7-17.5 L 410) HEMATOCRIT (BEAKER) (test code = 37.3 % 40.1-51.0 L 411) MEAN CORPUSCULAR VOLUME (BEAKER) 113.4 fL 79.0-92.2 H (test code = 753) MEAN CORPUSCULAR HEMOGLOBIN 32.2 pg 25.7-32.2 (BEAKER) (test code = 751) MEAN CORPUSCULAR HEMOGLOBIN CONC 28.4 GM/DL 32.3-36.5 L (BEAKER) (test code = 752) RED CELL DISTRIBUTION WIDTH 16.6 % 11.6-14.4 H (BEAKER) (test code = 412) PLATELET COUNT (BEAKER) (test 307 K/CU MM 150-450 code = 756) MEAN PLATELET VOLUME (BEAKER) 11.0 fL 9.4-12.4 (test code = 754) NUCLEATED RED BLOOD CELLS 0 /100 WBC 0-0 (BEAKER) (test code = 413) (CELLAVISION MANUAL DIFF)2021-03-29 07:17:00 Test Item Value Reference Range Interpretation Comments NEUTROPHILS - REL 85 % (CELLAVISION)(BEAKER) (test code = 2816) LYMPHOCYTES - REL 2 % (CELLAVISION)(BEAKER) (test code = 2817) MONOCYTES - REL 1 % (CELLAVISION)(BEAKER) (test code = 2818) BANDS - REL (CELLAVISION)(BEAKER) 12 % 0-10 H (test code = 2826) NEUTROPHILS - ABS 7.48 K/ul 1.78-5.38 H (CELLAVISION)(BEAKER) (test code = 2830) LYMPHOCYTES - ABS 0.18 K/ul 1.32-3.57 L (CELLAVISION)(BEAKER) (test code = 2831) MONOCYTES - ABS 0.09 K/uL 0.30-0.82 L (CELLAVISION)(BEAKER) (test code = 2832) BANDS - ABS (CELLAVISION)(BEAKER) 1.06 K/uL 0.00-0.80 H (test code = 2840) TOTAL COUNTED (BEAKER) (test code = 100 1351) WBC MORPHOLOGY (BEAKER) (test code Normal = 487) PLT MORPHOLOGY (BEAKER) (test code Normal = 486) POLYCHROMATOPHILLIC RBCS(BEAKER) 1+ few (test code = 478) ANISOCYTOSIS (BEAKER) (test code = 1+ few 961) MICROCYTES (BEAKER) (test code = 1+ few 965) ARTIFACT (CELLAVISION)(BEAKER) Present (test code = 3432) PLATELET CONCENTRATION Adequate (CELLAVISION)(BEAKER) (test code = 3438) Floor Steward/Stewardess ID - Daisy Franklin comments: Slide comments:TSH/Free T4 If [id number] 06:43:00 Test Item Value Reference Range Interpretation Comments TSH (test code = 1.408 See_Comment [Automated 84893-7) message] The system which generated this result transmit saulo reference range : 0.350 - 4.940 uIU/mL. The reference range was not used to interpret this result as normal/abnormal . STACY (test code = STACY) Floor Steward/Stewardess ID - AME M Lab Interpretation Normal (test code = 56727-0) [facility] T[facility] IF [id number] 06:43:00 Test Item Value Reference Range Interpretation Comments THYROID STIMULATING HORMONE 1.408 uIU/mL 0.350-4.940 (BEAKER) (test code = 772) Floor Steward/Stewardess ID - AME MBASIC METABOLIC [id number] 06:03:00 Test Item Value Reference Range Interpretation Comments SODIUM (BEAKER) 160 meq/L 136-145 HH (test code = 381) POTASSIUM (BEAKER) 4.1 meq/L 3.5-5.1 Specimen slightly (test code = 379) hemolyzed CHLORIDE (BEAKER) 130 meq/L 98-107 H (test code = 382) CO2 (BEAKER) (test 21 meq/L 22-29 L code = 355) BLOOD UREA NITROGEN 49 mg/dL 7-21 H (BEAKER) (test code = 354) CREATININE (BEAKER) 2.54 mg/dL 0.57-1.25 H Specimen slightly (test code = 358) hemolyzed GLUCOSE RANDOM 134 mg/dL 70-105 H (BEAKER) (test code = 652) CALCIUM (BEAKER) 6.8 mg/dL 8.4-10.2 L (test code = 697) EGFR (BEAKER) (test 25 mL/min/1.73 ESTIMA SAULO GFR IS code = 1092) sq m NOT ACCURATE CREATININE CLEARANCE IN PREDICTING GLOMERULAR FILTRATION RATE . ESTIMATED GFR I S NOT APPLICABLE FOR DIALYSIS PATIEN TS. Floor Steward/Stewardess ID - DBURINALYSIS W/ REFLEX URINE [id number] 03:52:00 Test Item Value Reference Range Interpretation Comments COLOR (BEAKER) (test code = 470) Yellow CLARITY (BEAKER) (test code = 469) Hazy SPECIFIC GRAVITY UA (BEAKER) (test 1.029 1.001-1.035 code = 468) PH UA (BEAKER) (test code = 467) 5.5 5.0-8.0 PROTEIN UA (BEAKER) (test code = 100 mg/dL Negative A 464) GLUCOSE UA (BEAKER) (test code = Negative Negative 365) KETONES UA (BEAKER) (test code = 10 mg/dL Negative A 371) BILIRUBIN UA (BEAKER) (test code = Negative Negative 462) BLOOD UA (BEAKER) (test code = 461) Large Negative A NITRITE UA (BEAKER) (test code = Negative Negative 465) LEUKOCYTE ESTERASE UA (BEAKER) Large Negative A (test code = 466) UROBILINOGEN UA (BEAKER) (test code 0.2 mg/dL 0.2-1.0 = 463) RBC UA (BEAKER) (test code = 519) 73 /HPF WBC UA (BEAKER) (test code = 520) 110 /HPF BACTERIA (BEAKER) (test code = 517) Moderate MUCUS (BEAKER) (test code = 1574) Few SQUAMOUS EPITHELIAL (BEAKER) (test 1 /HPF code = 516) HYALINE CASTS (BEAKER) (test code = 5 /LPF 514) CASTS (BEAKER) (test code = 1579) 5 /LPF CRYSTALS, URINE (BEAKER) (test code Few = 1521) SOURCE(BEAKER) (test code = 2795) Floor Steward/Stewardess ID - [auto]Floor Steward/Stewardess ID - techLactic acid, [id number] 23:23:00 Test Item Value Reference Range Interpretation Comments Lactate, Venous (test code = 1.97 mmol/L 0.5-2.2 2872) STACY (test code = STACY) Floor Steward/Stewardess ID - DB Lab Interpretation (test Normal code = 07876-2) [facility] CenterLACTIC ACID, [id number] 23:23:00 Test Item Value Reference Range Interpretation Comments LACTATE BLOOD VENOUS (2) (BEAKER) 1.97 mmol/L 0.50-2.20 (test code = 2872) Floor Steward/Stewardess ID - [id number] 23:21:00 Test Item Value Reference Range Interpretation Comments D-DIMER QUANTITATIVE (BEAKER) 1.06 MG/L FEU <0.50 H (test code = 671) Intended Use: The D-Dimer Assay can be used to aid in the diagnosis of Deep Vein Thrombosis (DVT) and Pulmonary Embolism Disease (PED).In patients with low pre- test probability, various studies concerning STA Liatest D-dimer test have reported that with a cutoff value of 0.50 MG/L FEU, the Negative Predictive Value (NPV) regarding the exclusion of thrombosis is within 95-100% range. PT/[id number] 23:19:00 Test Item Value Reference Interpretation Comments Range Protime (test code = 17.6 See_Comment H [Autom ated 5902-2) message] The system which generated this result transmitted reference range : 11.9 - 14.2 seconds. The reference range was not used to interpret this result as normal/abnormal . INR (test code = 1.47 See_Comment [Automated 9211-6) message] The system which generated this result transmitted reference range : <=5.90. The reference range was not used to interpret this result as normal/abnormal . PTT (test code = 35.1 See_Comment [Automated 86834-2) message] The system which generated this result transmitted reference range : 22.5 - 36.0 seconds. The reference range was not used to interpret this result as normal/abnormal . STACY (test code = RECOMMENDED STACY) COUMADIN/WARFARIN INR THERAPY RANGESSTANDARD DOSE: 2.0 - 3.0 Includes: PROPHYLAXIS for venous thrombosis, systemic embolization; TREATMENT for venous thrombosis and/or pulmonary embolus.HIGH RISK: Target INR is 2.5-3.5 for patients with mechanical heart valves. Lab Interpretation Abnormal (test code = 90096-8) [facility] CenterPT/[id number] 23:19:00 Test Item Value Reference Range Interpretation Comments PROTIME (BEAKER) (test 17.6 seconds 11.9-14.2 H code = 759) INR (BEAKER) (test 1.47 See_Comment [Automat ed code = 370) message] The sy stem which generated this result transmitted reference range : <=5.90. The reference range was not used to interpret this result as normal/abnormal . PARTIAL THROMBOPLASTIN 35.1 seconds 22.5-36.0 TIME (BEAKER) (test code = 760) RECOMMENDED COUMADIN/WARFARIN INR THERAPY RANGESSTANDARD DOSE: 2.0 - 3.0 Includes: PROPHYLAXIS forvenous thrombosis, systemic embolization; TREATMENT for venous thrombosis and/or pulmonary embolus.HIGH RISK: Target INR is 2.5-3.5 for patients with mechanical heart valves.COMPREHENSIVE METABOLIC [id number] 23:14:00 Test Item Value Reference Range Interpretation Comments TOTAL PROTEIN 7.9 gm/dL 6.0-8.3 Specimen sligh tly (BEAKER) (test code = hemoly zed 770) ALBUMIN (BEAKER) 2.6 g/dL 3.5-5.0 L Specimen sl ightly (test code = 1145) hemolyzed ALKALINE PHOSPHATASE 57 U/L 40-150 (BEAKER) (test code = 346) BILIRUBIN TOTAL 0.6 mg/dL 0.2-1.2 Specimen sli ghtly (BEAKER) (test code = hemoly zed 377) SODIUM (BEAKER) (test 164 meq/L 136-145 HH code = 381) POTASSIUM (BEAKER) 4.1 meq/L 3.5-5.1 Specimen slightly (test code = 379) hemolyzed CHLORIDE (BEAKER) 128 meq/L 98-107 H (test code = 382) CO2 (BEAKER) (test 21 meq/L 22-29 L code = 355) BLOOD UREA NITROGEN 45 mg/dL 7-21 H (BEAKER) (test code = 354) CREATININE (BEAKER) 1.44 mg/dL 0.57-1.25 H Specimen slightly (test code = 358) hemolyzed GLUCOSE RANDOM 174 mg/dL 70-105 H (BEAKER) (test code = 652) CALCIUM (BEAKER) 8.3 mg/dL 8.4-10.2 L (test code = 697) AST (SGOT) (BEAKER) 18 U/L 5-34 Specimen slightly (test code = 353) hemolyzed ALT (SGPT) (BEAKER) 6 U/L 6-55 Specimen slightly (test code = 347) hemolyzed EGFR (BEAKER) (test 48 mL/min/1.73 ESTIMA SAULO GFR IS code = 1092) sq m NOT ACCURATE CREATININE CLEARANCE IN PREDICTING GLOMERULAR FILTRATION RATE . ESTIMATED GFR I S NOT APPLICABLE FOR DIALYSIS PATIEN TS. Floor Steward/Stewardess ID - DBBlood gas, [id number] 23:12:00 Test Item Value Reference Range Interpretation Comments pH, Arterial (test code 7.52 7.35-7.45 H = 2744-1) pCO2, Arterial (test 28 See_Comment L [Autom ated message] code = 2019-8) The system [employer] generated this result transmit saulo reference range : 35 - 45 mm Hg. The reference range was not used to interpret this result as normal/abnormal . pO2, Arterial (test 186 See_Comment H [Automa saulo message] code = 9553-7) The system [facility] generated this result transmit saulo reference range : 80 - 90 mm Hg. The reference range was not used to interpret this result as normal/abnormal . O2 Sat, Arterial (test 99.4 % 96-97 H code = 2708-6) HCO3, Arterial (test 22 mmol/L 21-29 code = 1960-4) Base Excess, Arterial 0.1 mmol/L -2-3 (test code = 1925-7) Patient Temperature 36.5 (test code = 8310-5) FIO2 (test code = 1819) 44 Lab Interpretation Abnormal (test code = 98773-9) [facility] CenterBLOOD GAS, [id number] 23:12:00 Test Item Value Reference Range Interpretation Comments PH ARTERIAL (BEAKER) (test code = 7.52 7.35-7.45 H 383) PCO2 ARTERIAL (BEAKER) (test code 28 mm Hg 35-45 L = 384) PO2 ARTERIAL (BEAKER) (test code = 186 mm Hg 80-90 H 385) O2 SATURATION ARTERIAL (BEAKER) 99.4 % 96.0-97.0 H (test code = 386) HCO3 ARTERIAL (BEAKER) (test code 22 mmol/L 21-29 = 388) BASE EXCESS ARTERIAL (BEAKER) 0.1 mmol/L -2.0-3.0 (test code = 387) PATIENT TEMPERATURE (BEAKER) (test 36.5 code = 1818) FIO2 (BEAKER) (test code = 1819) 44.0 CALCIUM, [id number] 23:12:00 Test Item Value Reference Range Interpretation Comments CALCIUM IONIZED (BEAKER) (test 1.08 mmol/L 1.12-1.27 L code = 698) PH, BLOOD (BEAKER) (test code = 7.51 1810) [id number] 23:10:00 Test Item Value Reference Range Interpretation Comments MAGNESIUM (BEAKER) 1.8 mg/dL 1.6-2.6 Specimen slightly (test code = 627) hemolyzed Floor Steward/Stewardess ID - [id number] 23:10:00 Test Item Value Reference Range Interpretation Comments PHOSPHORUS (BEAKER) 2.8 mg/dL 2.3-4.7 Specimen slightly (test code = 604) hemolyzed Floor Steward/Stewardess ID - DBCREATINE KINASE (CK)2021-03-28 23:10:00 Test Item Value Reference Range Interpretation Comments CREATINE KINASE TOTAL (BEAKER) (test 23 U/L 29-200 L code = 380) Floor Steward/Stewardess ID - DBC-REACTIVE [id number] 23:10:00 Test Item Value Reference Range Interpretation Comments C-REACTIVE PROTEIN (BEAKER) (test 14.35 mg/dL 0.00-0.50 H code = 676) Floor Steward/Stewardess ID - DBCBC (Hemogram only)2021-03-28 23:08:00 Test Item Value Reference Range Interpretation Comments WBC (test code = 6690-2) 11.6 See_Comment H [A utomated message] The system [employer] generated this result transmitted ref erence range: 3.5 - 10 .5 K/L. The refe rence range was not u sed to interpret this result as normal/abnor mal. RBC (test code = 789-8) 3.69 See_Comment L [Au tomated message] The system [employer] generated this result transmitted ref erence range: 4.63 - 6 .08 M/L. The refe rence range was not u sed to interpret this result as normal/abnor mal. MCHC (test code = 786-4) 29.6 See_Comment L [A utomated message] The system [employer] generated this result transmitted ref erence range: 32.3 - 3 6.5 GM/DL. The refe rence range was not u sed to interpret this result as normal/abnor mal. Hematocrit (test code = 40.6 % 40.1-51 4544-3) MCV (test code = 787-2) 110.0 fL 79-92.2 H MCH (test code = 785-6) 32.5 pg 25.7-32.2 H RDW (test code = 788-0) 16.7 % 11.6-14.4 H Platelets (test code = 331 See_Comment [Aut omated message] 777-3) The system [employer] generated this result transmitted ref erence range: 150 - 45 0 K/CU MM. The referen ce range was not u sed to interpret this result as normal/abnor mal. MPV (test code = 10.5 fL 9.4-12.4 71362-7) nRBC (test code = 413) 0 See_Comment [Aut omated message] The system [employer] generated this result transmitted ref erence range: 0 - 0 /1 00 WBC. The refere nce range was not u sed to interpret this result as normal/abnor mal. Lab Interpretation (test Abnormal code = 07861-8) Doctors [facility] (HEMOGRAM ONLY)2021-03-28 23:08:00 Test Item Value Reference Range Interpretation Comments WHITE BLOOD CELL COUNT (BEAKER) 11.6 K/ L 3.5-10.5 H (test code = 775) RED BLOOD CELL COUNT (BEAKER) 3.69 M/ L 4.63-6.08 L (test code = 761) HEMOGLOBIN (BEAKER) (test code = 12.0 GM/DL 13.7-17.5 L 410) HEMATOCRIT (BEAKER) (test code = 40.6 % 40.1-51.0 411) MEAN CORPUSCULAR VOLUME (BEAKER) 110.0 fL 79.0-92.2 H (test code = 753) MEAN CORPUSCULAR HEMOGLOBIN 32.5 pg 25.7-32.2 H (BEAKER) (test code = 751) MEAN CORPUSCULAR HEMOGLOBIN CONC 29.6 GM/DL 32.3-36.5 L (BEAKER) (test code = 752) RED CELL DISTRIBUTION WIDTH 16.7 % 11.6-14.4 H (BEAKER) (test code = 412) PLATELET COUNT (BEAKER) (test 331 K/CU MM 150-450 code = 756) MEAN PLATELET VOLUME (BEAKER) 10.5 fL 9.4-12.4 (test code = 754) NUCLEATED RED BLOOD CELLS 0 /100 WBC 0-0 (BEAKER) (test code = 413) RAD, ABDOMEN/KUB, 1 VIEW [id number] 22:32:00Reason for exam:->PEG tubeReason for exam:->Distended [facility] 1945 Sex: MFINAL REPORT TECHNIQUE: One view of the abdomen. INDICATION: 75-year-old man with gastrostomy tube and distended abdomen. COMPARISON: None. IMPRESSION:Gastrostomy tube terminates over the expected region of the distal stomach. Intact laparoscopic gastric band in place. Nonobstructive bowel gas pattern. No acute osseous abnormality. Soft tissues are unremarkable. Signed: Lacey Barrett MDReport Verified Date/Time: 03/28/2021 22:32:51 Reading Location: [address] ConsultReading Room RAD, CHEST, 1 VIEW, NON [id number] 22:25:00Reason for exam:->COVID PNA [facility] 1945 Sex: MFINAL REPORT INDICATION: COVID PNA COMPARISON: None TECHNIQUE: Single frontal view of the chest. IMPRESSION: Lungs and pleura: Hypoinflated lungs with mild bibasilar hazy lung opacities that are nonspecific but compatible with multifocal atypical pneumonia. No effusion.Heartand mediastinum: Normal heart size. Unremarkable mediastinal contours.Osseous structures: No acute ab normality. Partially imaged left humerus fixation hardware.Other: There is a gastric band present. Cholecystectomy clips present within the right upper quadrant. Signed: Sasha Wong Verified Date/Time: 03/28/2021 22:25:25 XR chest 1 view portable / [id number] 22:25:00Interface, External Ris In - 03/28/2021 10:27 PM CDTFINAL REPORT INDICATION: COVID PNA COMPARISON: None TECHNIQUE: Single frontal view of the chest. IMPRESSION: Lungs and pleura:Hypoinflated lungs with mild bibasilar hazy lung opacities that are nonspecific but compatible with multifocal atypical pneumonia. No effusion.Heart and mediastinum: Normal heart size. Unremarkable mediastinal contours.Osseous structures: No acute abnormality. Partially imaged left humerus fixation blaine dware.Other: There is a gastric band present. Cholecystectomy clips present within the right upper quadrant. Signed: Sasha Wong Verified Date/Time: 03/28/2021 22:25:25 Electronicallysigned by: SASHA WONG MD on 03/28/2021 10:25 [facility]2021-04-14 10:13:00 Test Item Value Reference Range Interpretation Comments AMMONIA (test code = AMM) 93 umol/L 11-32 H
[2021-04-04 13:40] LABS: Absolute Lymphocytes (CBC) 0.3 K/uL (0.7-4.9); Basophils % 0.6 % (0-1.3); Hematocrit 35.4 % (39.6-49.0); MPV 9.5 fL (7.6-11.3); RBC Red Blood Cell Count 3.53 M/uL (4.33-5.43)
[2021-04-04 13:46] LABS: BUN Blood Urea Nitrogen 27 mg/dL (7-18); Bicarbonate 27 mmol/L (21-32); Glucose Level 75 mg/dL (74-106); Potassium 3.4 mmol/L (3.5-5.1); Sodium Level 150 mmol/L (136-145)
--- NOTE | 2021-04-04 14:34 | RAD REPORT ---
EXAM DESCRIPTION: CT - Abdomen Pelvis W Contrast - 04/04/2021 2:11 pm CLINICAL HISTORY: PEG tube dysfunction;Abd pain COMPARISON: Abdomen Pelvis W Contrast dated 01/06/2017; CT ABD PELVIS W CONTRAST dated 09/21/2014 TECHNIQUE: Biphasic, helical CT imaging of the abdomen and pelvis was performed following 100 ml non -ionic IV contrast. Oral contrast administered. All CT scans are performed using dose optimization technique as appropriate and may include automated exposure control or mA/KV adjustment according to patient size. FINDINGS: No cardiomegaly or pericardial effusion. Right hemidiaphragm elevation noted. Small director vaccine ior gutter pleural effusions are present with partial atelectasis in each lower lobe at the posterior gutter. A small component of pneumonia cannot be excluded, particularly on the right. The liver, spleen, and pancreas show no suspicious findings. Gallbladder is absent. No biliary tree d ilatation. Symmetric renal function is seen with no hydronephrosis or suspicious renal mass. No pyelonephritis o r acute parenchymal process. Multiple small bilateral cortical cysts are present. No adrenal abnormal ities. Urinary bladder is fully contracted around a Gray catheter. No prostate enlargement or semina l vesicle abnormality. Lap band is in place. No gastric wall thickening or mass. PEG tube is in place. The balloon tip is in the antrum of the stomach or possibly the duodenal bulb. Distal portion of the duodenum and remainde r of the small bowel unremarkable. Oral contrast has reached the distal rectum. No acute colon proces s identifiable. No free air, free fluid or inflammatory stranding. No hernia, mass or bulky lymphade nopathy. Prominent disc and bone degenerative changes are present. IMPRESSION: PEG tube is in place with the inflated balloon tip in the gastric antrum or possibly in the duodenal bulb. There is no extravasation of oral contrast. Lap band is also in place. There is no gastric wall thickening or mass. Additional nonacute findings are detailed in the body of the report.
--- NOTE | 2021-04-04 15:36 | ER ---
Nurse's Notes [facility] Name: Zbigniew Mitchell Age: 75 yrs Sex: Male : 1945 Arrival Date: 04/04/2021 Time: 11:38 Bed 6 Private MD: Diagnosis: Poor PEG tube maintenance and management. Presentation: 04/04 11:40 Chief complaint: EMS states: longterm sent for infected PEG tube site. During hb triage dressing noted to be saturated with dried brown secretions, adhered to skin around site. Dressing appears >1 day old. Skin is macerated. Coronavirus screen: At this time, the client does not indicate any symptoms associated with coronavirus-19. Ebola Screen: No symptoms or risks identified at this time. Initial Sepsis Screen: Does the patient meet any 2 criteria? No. Patient's initial sepsis screen is negative. Does the patient have a suspected source of infection? No. Patient's initial sepsis screen is negative. Risk Assessment: Do you want to hurt yourself or someone else? Patient reports no desire to harm self or others. Onset of symptoms is unknown. 11:40 Method Of Arrival: EMS: [facility] 11:40 Acuity: ANDRE 3 hb Triage Assessment: 12:07 General: Appears in no apparent distress. Behavior is cooperative. Pain: Unable to use hb pain scale. FLACC scale score is 3 out of 10. EENT: No signs and/or symptoms were reported regarding the EENT system. Neuro: Level of Consciousness is awake, alert, confused, Oriented to person. Cardiovascular: Patient's skin is warm and dry. Respiratory: Respiratory effort is even, unlabored, Respiratory pattern is regular, symmetrical. GI: PEG tube in place, clamped. Site reddened. Site with drainage. macerated, dirty and old appearing dressing in place. : No signs and/or symptoms were reported regarding the genitourinary system. Gray in place to gravity drainage. Derm: Skin is pink, warm \T\ dry. Musculoskeletal: No signs and/or symptoms reported regarding the musculoskeletal system. Historical: - Allergies: 12:04 PENICILLINS; hb - Home Meds: 12:04 Aricept 10 mg Oral tab 1 tab nightly [Active]; Aspercreme (lidocaine) 4 % Topical ptmd hb daily [Active]; Depakote ER 500 mg Oral Tb24 2 tabs nightly [Active]; Dilantin 100 mg Oral 2 tab twice a day [Active]; docusate sodium 100 mg Oral cap 2 times per day [Active]; Eliquis 2.5 mg Oral tab 1 tab 2 times per day [Active]; Eliquis 5 mg Oral tab 0.5 tab 2 times per day [Active]; famotidine 20 mg Oral tab every 12 hours [Active]; folic acid 1 mg Oral tab 1 tab once daily [Active]; furosemide 20 mg Oral tab 1 tab once daily [Active]; hydroxyzine HCl 25 mg Oral tab BID [Active]; magnesium oxide 400 mg magnesium Oral cap twice a day [Active]; megestrol 400 mg/10 mL (10 mL) Oral susp once daily [Active]; metoprolol tartrate 25 mg Oral tab 1 tab 2 times per day [Active]; Miralax 17 gram Oral pwpk 1 packet once daily [Active]; mupirocin 2 % Topical oint twice daily [Active]; Neurontin 100 mg Oral cap 3 times per day [Active]; nitroglycerin 0.4 mg Oral cpER PRN [Active]; Hagerman 5-325 mg Oral tab Q8H for Pain [Active]; Norvasc 2.5 mg Oral tab 1 tab twice a day [Active]; omeprazole 20 mg Oral cpDR 1 cap once daily [Active]; potassium chloride 10 mEq Oral cpER 1 cap once daily [Active]; Prozac 40 mg Oral cap 1 cap once daily [Active]; Synthroid 150 mcg Oral tab 1 tab once daily [Active]; trazodone 100 mg Oral tab 1 tab at bedtime [Active]; valproic acid 250 mg Oral cap twice daily [Active]; Vitamin C 500 mg Oral tab 500 mg daily [Active]; Vitamin D Oral 2000 unit daily [Active]; zinc sulfate 220 mg Oral cap daily [Active]; - PMHx: 12:04 Atrial Fib; Bipolar disorder; Bronchitis; Cervicalgia; Chronic pain; constipation; 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 - Social history:: Smoking status: unknown. Screenin:09 Abuse screen: Denies threats or abuse. Denies injuries from another. Nutritional hb screening: No deficits noted. Tuberculosis screening: No symptoms or risk factors identified. Fall Risk Total Aleman Fall Scale indicates High Risk Score (45 or more points). Fall prevention measures have been instituted. Side Rails Up X 2 Frequent Obs/Assessments Occuring As available patient and family educated on Fall Prevention Program and Strategies. Assessment: 12:00 Reassessment: PEG tube flushed with 100 mL NS, tube withdrawals and flushes easily. jl7 12:09 General: see triage assessment . hb 13:00 Reassessment: Patient appears in no apparent distress at this time. No changes from hb previously documented assessment. 14:41 Reassessment: Patient appears in no apparent distress at this time. No changes from hb previously documented assessment. 17:00 Reassessment: Patient appears in no apparent distress at this time. No changes from jl7 previously documented assessment. Vital Signs: 11:40 BP 106 / 87; Pulse 82; Resp 18; Temp 98.1; Pulse Ox 100% on R/A; Pain 3/10; hb 13:00 BP 117 / 80; Pulse 80; Resp 15; Pulse Ox 98% ; hb 16:00 BP 100 / 67; Pulse 68; Resp 15; Pulse Ox 99% ; jl7 17:47 BP 93 / 72; Pulse 65; Resp 16; Pulse Ox 97% ; jl7 11:40 Prince (FACES) hb ED Course: 11:38 Patient arrived in ED. ds1 11:44 Parth Yin MD is Attending Physician. kdr 12:00 Mario Hamlin RN is Primary Nurse. jl7 12:04 Triage completed. hb 12:07 Arm band placed on. hb 12:09 Patient has correct armband on for positive identification. Placed in gown. Bed in low hb position. Call light in reach. Side rails up X2. 12:09 Dressings: PEG site cleaned with NS, thin layer of antibiotic ointment applied, dressed hb with non-woven drain sponges, covered with ABD pad, secured with paper tape. Dr. Yin at bedside to evaluate site and assist with dressing change. 13:22 Initial lab(s) drawn, by me, sent to lab. Missed attempt(s): 22 gauge in right dh3 antecubital area. Bleeding controlled, band aid applied, catheter tip intact. 13:29 Inserted saline lock: 20 gauge in left antecubital area, using aseptic technique. jl7 14:11 CT Abd/Pelvis - IV Contrast Only In Process Unspecified. EDMS 17:47 No provider procedures requiring assistance completed. IV discontinued, intact, jl7 bleeding controlled, No redness/swelling at site. Pressure dressing applied. Administered Medications: No medications were administered Outcome: 15:34 Discharge ordered by . alcides 17:47 Discharged to skilled nursing. Report called to YANA Partida Transfer form completed. jl7 17:47 Condition: stable 17:47 Discharge instructions given to skilled nursing, Instructed on discharge instructions, follow up and referral plans. Demonstrated understanding of instructions, follow-up care. 17:48 Patient left the ED. jl7 Signatures: Dispatcher [employer] EDMS Parth Yin MD MD [facility]en Lr ds1 Cait Mart RN RN Mario Hamlin RN RN jl7 Susana Chase 3 Corrections: (The following items were deleted from the chart) 12:07 12:04 Home Meds: Dilantin 100 mg capsule Oral 100 mg every 8 hours; hb hb
--- NOTE | 2021-04-04 15:36 | EDPHYS ---
[facility] Name: Zbigniew Mitchell Age: 75 yrs Sex: Male : 1945 Arrival Date: 04/04/2021 Time: 11:38 Bed 6 Private MD: ED Physician Parth Yin HPI: 04/04 15:27 This 75 yrs old Male presents to ER via EMS with complaints of Infected Peg kdr Tube. 15:27 Was sent from the alf due to what was thought to be an infected PEG tube. kdr Onset: The symptoms/episode began/occurred at an unknown time. Severity of symptoms: At their worst the symptoms were mild moderate in the emergency department the symptoms are unchanged. It is unknown whether or not the patient has had similar symptoms in the past. It is unknown whether or not the patient has recently seen a physician. Patient was sent to the ED by the alf due to a concern for his PEG tube penetration site being infected. Historical: - Allergies: 12:04 PENICILLINS; hb - Home Meds: 12:04 Aricept 10 mg Oral tab 1 tab nightly [Active]; Aspercreme (lidocaine) 4 % Topical ptmd hb daily [Active]; Depakote ER 500 mg Oral Tb24 2 tabs nightly [Active]; Dilantin 100 mg Oral 2 tab twice a day [Active]; docusate sodium 100 mg Oral cap 2 times per day [Active]; Eliquis 2.5 mg Oral tab 1 tab 2 times per day [Active]; Eliquis 5 mg Oral tab 0.5 tab 2 times per day [Active]; famotidine 20 mg Oral tab every 12 hours [Active]; folic acid 1 mg Oral tab 1 tab once daily [Active]; furosemide 20 mg Oral tab 1 tab once daily [Active]; hydroxyzine HCl 25 mg Oral tab BID [Active]; magnesium oxide 400 mg magnesium Oral cap twice a day [Active]; megestrol 400 mg/10 mL (10 mL) Oral susp once daily [Active]; metoprolol tartrate 25 mg Oral tab 1 tab 2 times per day [Active]; Miralax 17 gram Oral pwpk 1 packet once daily [Active]; mupirocin 2 % Topical oint twice daily [Active]; Neurontin 100 mg Oral cap 3 times per day [Active]; nitroglycerin 0.4 mg Oral cpER PRN [Active]; Kula 5-325 mg Oral tab Q8H for Pain [Active]; Norvasc 2.5 mg Oral tab 1 tab twice a day [Active]; omeprazole 20 mg Oral cpDR 1 cap once daily [Active]; potassium chloride 10 mEq Oral cpER 1 cap once daily [Active]; Prozac 40 mg Oral cap 1 cap once daily [Active]; Synthroid 150 mcg Oral tab 1 tab once daily [Active]; trazodone 100 mg Oral tab 1 tab at bedtime [Active]; valproic acid 250 mg Oral cap twice daily [Active]; Vitamin C 500 mg Oral tab 500 mg daily [Active]; Vitamin D Oral 2000 unit daily [Active]; zinc sulfate 220 mg Oral cap daily [Active]; - PMHx: 12:04 Atrial Fib; Bipolar disorder; Bronchitis; Cervicalgia; Chronic pain; constipation; 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 - Social history:: Smoking status: unknown. ROS: 15:27 Constitutional: Negative for fever, chills, and weight loss, the patient is a poor kdr historian primarily utters obscenities Eyes: Negative for injury, pain, redness, and discharge, Neck: Negative for injury, pain, and swelling, Cardiovascular: Negative for chest pain, palpitations, and edema, Respiratory: Negative for shortness of breath, cough, wheezing, and pleuritic chest pain, Back: Negative for injury and pain. 15:27 Unable to obtain ROS due to baseline dementia. Exam: 15:29 Constitutional: This is a well developed, well nourished patient who is awake, alert, kdr and in no acute distress. Head/Face: Normocephalic, atraumatic. Eyes: Pupils equal round and reactive to light, extra-ocular motions intact. Lids and lashes normal. Conjunctiva and sclera are non-icteric and not injected. Cornea within normal limits. Periorbital areas with no swelling, redness, or edema. Neck: Trachea midline, no thyromegaly or masses palpated, and no cervical lymphadenopathy. Supple, full range of motion without nuchal rigidity, or vertebral point tenderness. No Meningismus. Chest/axilla: Normal chest wall appearance and motion. Nontender with no deformity. No lesions are appreciated. Cardiovascular: Regular rate and rhythm with a normal S1 and S2. No gallops, murmurs, or rubs. Normal PMI, no JVD. No pulse deficits. Respiratory: Lungs have equal breath sounds bilaterally, clear to auscultation and percussion. No rales, rhonchi or wheezes noted. No increased work of breathing, no retractions or nasal flaring. Back: No spinal tenderness. No costovertebral tenderness. Full range of motion. Skin: Warm, dry with normal turgor. Normal color with no rashes, no lesions, and no evidence of cellulitis. MS/ Extremity: Pulses equal, no cyanosis. Neurovascular intact. Full, normal range of motion. 15:29 Abdomen/GI: Inspection: There is a PEG tube in place in the left upper quadrant. When nursing initially encountered the site, there was a considerable amount of debris in various stages of deterioration. With some gentle hydration of the site and prior dressing, they were able to remove a thick mass of deteriorating material. Underneath this mass of material, the skin was very erythematous and raw. There was some secretion around the ostomy site. Some antibiotic ointment was applied to the affected area of skin and the PEG tube was redressed.. Vital Signs: 11:40 BP 106 / 87; Pulse 82; Resp 18; Temp 98.1; Pulse Ox 100% on R/A; Pain 3/10; hb 13:00 BP 117 / 80; Pulse 80; Resp 15; Pulse Ox 98% ; hb 16:00 BP 100 / 67; Pulse 68; Resp 15; Pulse Ox 99% ; jl7 17:47 BP 93 / 72; Pulse 65; Resp 16; Pulse Ox 97% ; jl7 11:40 Prince (FACES) hb MDM: 15:29 Data reviewed: vital signs, nurses notes, lab test result(s), radiologic studies. kdr Counseling: I had a detailed discussion with the patient and/or guardian regarding: the historical points, exam findings, and any diagnostic results supporting the discharge/admit diagnosis, lab results, radiology results, the need for outpatient follow up. ED course: Patient was stable in the ED. The PEG tube was flushed and appeared to be working appropriately. Additionally the CT scan evidence that the tube was in the appropriate position. There was no extravasation of contrast. Patient was otherwise stable. He was discharged home in good condition without further incident. 15:34 Patient medically screened. kdr 15:50 ED course: Eliezer case with Dr. Rosenthal of. He suggested that the dressing be cleaned as we kdr had already done. Triple antibiotic ointment applied or Bactroban. And then the fenestrated gauze pads placed as had been done to secure the tube. He indicated that the natural course of repair will involve a few days of oozing around the catheter prior to resolution. Patient does not have a surgical abdomen or any evidence which would suggest the need for emergent intervention by a surgeon or admission.. 04/04 12:16 Order name: CBC with Diff [facility] 04/04 12:16 Order name: Chem 7 kdr 04/04 12:17 Order name: CBC with Automated Diff EDPR 04/04 12:17 Order name: Basic Metabolic Panel; Complete Time: 14:16 EDPR 04/04 14:03 Order name: CREATININE WHOLE BLOOD; Complete Time: 14:16 EDPR 04/04 17:13 Order name: CBC Smear Scan EDPR 04/04 12:16 Order name: CT Abd/Pelvis - IV Contrast Only; Complete Time: 15:26 kdr 04/04 12:16 Order name: Misc. Order: Clean and dress PEG-tube site. Flush PEG tube for ; Complete kdr Time: 12:28 Administered Medications: No medications were administered Disposition Summary: 04/04/21 15:34 Discharge Ordered Location: Home kdr Problem: new kdr Symptoms: have improved kdr Condition: Stable kdr Diagnosis - Poor PEG tube maintenance and management. kdr Followup: kdr - With: Private Physician - When: 2 - 3 days - Reason: If symptoms return, Further diagnostic work-up, Recheck today's complaints, Continuance of care, Re-evaluation by your physician Discharge Instructions: - Discharge Summary Sheet kdr - PEG Tube Home Guide, [id number] kdr Forms: - Medication Reconciliation Form kdr - Thank You Letter kdr Signatures: Dispatcher [employer] [facility] Parth Yin MD MD kdr aCit Mart RN RN Corrections: (The following items were deleted from the chart) 12:07 12:04 Home Meds: Dilantin 100 mg capsule Oral 100 mg every 8 hours; hb hb
[2021-04-04 17:13] LABS: Blood Morphology Comment NOT SEEN (NOT SEEN); Platelet Estimate ADEQ; White Blood Cell Scan OK (OK)
[2021-04-04 17:58] VITALS: TEMP 98.1
[2021-04-04 18:02] VITALS: BP 93/72; O2SAT 97
== END 2021-04-04 17:48 | disposition home or self-care (01) ==
LOC: ER 11:37
DX: K94.29 Other complications of gastrostomy (principal)
CPT/HCPCS: 85025; 80048; 36415; 82565; 74177; 99284; Q9967

== ENCOUNTER 2021-04-06 09:54 | Emergency (ER) | payer OTHER ==
--- OUTSIDE RECORDS SUMMARY | 2021-04-06 10:02 | XMS REPORT | Continuity of Care Document ---
:1945 Author Organization [facility] t Address [address] [place] [address] Care Team Providers Name Role Phone Pcp MD Primary Care Physician Unavailable Poli Conner MD Attending Clinician Deacon Zuniga MD Attending Clinician [phone] Manav Diggs MD Attending Clinician Nelli GONZÁLES Attending Clinician POLI CONNER Admitting Clinician Unavailable Payers Payer [...] COVID-19 COVID-19 Disease [facility] Allergies, Adverse Reactions, Alerts Allergy Allergy Status Severity Reaction(s) Onset Inactive Treating Comm ents Source Name Type Date Date Clinician Penicill Drug Active [facility]aphylaxis [facility] Social History Social Habit Start Date Stop Date Quantity Comments Source Exposure to Not sure [facility] - SARS-CoV-2 (event) [facility] l Center Sex Assigned At [birth year] NIKA Grace kes - 00:00:00 00:00:00 Medical Center Medications Ordered Filled Start Stop Current Ordering Indication Dosage Frequency Signature Comments Components Source Medication Medication Date Date Medication? Clinician (SIG) Name Name [facility] 2021- Yes 1{tbl} QD Take [address] n 04-03 tablet by [facility] - (THERAGRAN) 00:00: 23:59 mouth Medi nilson tablet 00 :00 daily. [facility] 2021- Yes 1{tbl} QD Take [address] n 04-03 tablet by [facility] - (THERAGRAN) 00:00: 23:59 mouth Medi nilson tablet 00 :00 daily. [facility] ascorbic 2020- Yes 250mg QD Take 1 [facility] acid, 04-03 tablet [facility] - vitamin C, 00:00: 23:59 (250 mg Med ical (VITAMIN C) 00 :00 total) by [address] 250 MG mouth tablet daily for 30 days. honey 100 % 2020- Yes 1{appli QD Apply [address] Pste 04-03 cation} applicatio [facility] - 00:00: 23:59 n Medical 00 :00 topically Center daily for 30 days -Peg tube wound: Cleanse with NS, pat dry. Apply to open wound dime size medi-honey from edge to edge and cover with "cut to fit" Allevyn foam dressing.. ascorbic 2020- Yes 250mg QD Take 1 [facility] acid, 04-03 tablet [facility] - vitamin C, 00:00: 23:59 (250 mg Med ical (VITAMIN C) 00 :00 total) by [address] 250 MG mouth tablet daily for 30 days. honey 100 % 2020- Yes 1{appli QD Apply [address] [facility] 04-03 cation} applicatio [facility] - 00:00: 23:59 n Medical 00 :00 [...] for Medical HALF-STRENG 00 :00 7 days [facility],) 0.25 % -Sacrum: external Cleanse solution with 0.25% Dakins solution and pack with 0.25% Dakins wet to dry dressing. Cover with Allevyn foam dressing daily.. sodium 2020- Yes QD Apply [facility] hypochlorit 04-03 topically Fern kes - e (DAKIN'S, 00:00: 23:59 daily for Medical HALF-STRENG 00 :00 7 days [facility],) 0.25 % -Sacrum: external Cleanse solution with 0.25% Dakins solution and pack with 0.25% Dakins wet to dry dressing. Cover with Allevyn foam dressing daily.. zinc 2020- No 220mg QD Take [address] sulfate 04-03 capsule [facility] - (ZINCATE) 00:00: 00:00 (220 mg Medi nilson 50 mg zinc 00 :00 total) by Cent er (220 mg) mouth capsule daily for 10 days. zinc 2020- No 220mg QD Take [address] sulfate 04-03 capsule [facility] - (ZINCATE) 00:00: 00:00 (220 mg Medi nilson 50 mg zinc 00 :00 total) by Cent er (220 mg) mouth capsule daily for 10 days. acetaminoph Yes 1{tbl} Take [address] en-codeine -08 tablet by Joss stinson - (TYLENOL 18:23: mouth Medical #3) 300-30 35 every 6 Center mg per (six) tablet hours as needed. donepeziL Yes 10mg QD Take [address] (ARICEPT) 9-08 by mouth [place] - 10 MG 18:23: nightly. Medical tablet 35 Center Missing or Yes Aspercreme [facility] Non-Formula 04-02 (lidocaine Fern kes - ry 18:23: 4%) patch Medical Medication 35 BID . Center calcium Yes 1{tbl} QD Take [address] carbonate-v - tablet by Rafael es - itamin D3 18:23: mouth Medical (calcium-vi 35 daily. Center tamin D) 500 mg(1,250mg) -200 unit per tablet phenytoin 2020-0 Yes Q.[id number] Take by [facility] (DILANTIN) 9-08 [id number] mouth 3 [facility] - 100 MG ER 18:23: 3D (three) Medic al capsule 35 times Center daily. docusate 2020-0 Yes 100mg Q.5D Take [address] sodium 9-08 mg by [facility] - (COLACE) 18:23: mouth 2 Medica l 100 MG 35 (two) Center capsule times daily. famotidine 2020-0 Yes 20mg Q.5D Take [address] (PEPCID) 20 9-08 by mouth 2 Fern kes - MG tablet 18:23: (two) Medical 35 times Center daily. folic acid 2020-0 Yes 1mg QD Take [address] (FOLVITE) 1 9-08 by mouth Luke s - MG tablet 18:23: daily. Medica l 35 Center furosemide 2020-0 Yes 20mg QD Take [address] (LASIX) 20 9-08 by mouth [facility] - MG tablet 18:23: daily. Medica l 35 Center hydrOXYzine 2020-0 Yes 25mg Take [address] (ATARAX) 25 9-08 by mouth 3 Fern kes - MG tablet 18:23: (three) Medic al 35 times Center daily as needed for Itching. ipratropium 2020-0 Yes 500ug Q.31232816 Take [address] (ATROVENT) 9-08 [id number] mcg by L ukes - 0.02 % 18:23: 3D nebulizati Medic al nebulizer 35 on 3 Center solution (three) times daily. magnesium 2020-0 Yes 400mg Q.5D Take [address] oxide 9-08 mg by [facility] - (MAG-OX) 18:23: mouth 2 Medica l 400 mg 35 (two) Center (241.3 mg times magnesium) daily. tablet megestroL 2020-0 Yes 400mg QD Take [address] (MEGACE) 9-08 mg by [facility] - 400 mg/10 18:23: mouth Medical mL (40 35 daily. Center mg/mL) suspension polyethylen 2021-0 Yes 17g QD Take [address] e glycol 9-08 by mouth [facility] - (GLYCOLAX) 18:23: daily. Medic al 17 gram 35 Center packet gabapentin Yes 100mg Q.[id number] Take [address] (NEURONTIN) 9-08 [id number] mg by L ukes - 100 MG 18:23: 3D mouth 3 Medical capsule 35 (three) Center times daily. potassium Yes 10meq QD Take [address] chloride 9-08 mEq by [facility] - (KLOR-CON) 18:23: mouth Medica l 10 MEQ CR 35 daily. Center tablet levothyroxi Yes 150ug Take [address] ne 9-08 mcg by [facility] - (SYNTHROID, 18:23: mouth Medic al LEVOTHROID) 35 Every Center 150 MCG morning on tablet an empty stomach. traZODone Yes 100mg QD Take [address] (DESYREL) 9-08 mg by [facility] - 100 MG 18:23: mouth Medical tablet 35 nightly. Center valproic Yes 1000mg Q.5D Take 1,[address] acid, as 9-08 mg by [facility] - sodium 18:23: mouth 2 Medical salt, 35 (two) Center (DEPAKENE) times 250 mg/5 mL daily. (5 mL) solution acetaminoph Yes 1{tbl} Take [address] en-codeine 9-08 tablet by Joss s - (TYLENOL 18:23: mouth Medical #3) 300-30 35 every 6 Center mg per (six) tablet hours as needed. donepeziL Yes 10mg QD Take [address] (ARICEPT) 9-08 by mouth [facility] - 10 MG 18:23: nightly. Medical tablet 35 Center Missing or Yes Aspercreme [facility] Non-Formula 9-08 (lidocaine Fern kes - ry 18:23: 4%) patch Medical Medication 35 BID . Center calcium Yes 1{tbl} QD Take [address] carbonate-v 9-08 tablet by Rafael es - itamin D3 18:23: mouth Medical (calcium-vi 35 daily. Center tamin D) 500 mg(1,250mg) -200 unit per tablet phenytoin 1-0 Yes Q.19551521 Take by [facility] (DILANTIN) 9-08 [id number] mouth 3 [facility] - 100 MG ER 18:23: 3D (three) Medic al capsule 35 times Center daily. docusate 202-0 Yes 100mg Q.5D Take [address] sodium 9-08 mg by [facility] - (COLACE) 18:23: mouth 2 Medica l 100 MG 35 (two) Center capsule times daily. famotidine 2020-0 Yes 20mg Q.5D Take [address] (PEPCID) 20 9-08 by mouth 2 Fern kes - MG tablet 18:23: (two) Medical 35 times Center daily. folic acid 2020-0 Yes 1mg QD Take [address] (FOLVITE) 1 9-08 by mouth Luke s - MG tablet 18:23: daily. Medica l 35 Center furosemide 2020-0 Yes 20mg QD Take [address] (LASIX) 20 9-08 by mouth [facility] - MG tablet 18:23: daily. Medica l 35 Center hydrOXYzine 2020-0 Yes 25mg Take [address] (ATARAX) 25 9-08 by mouth 3 Fern kes - MG tablet 18:23: (three) Medic al 35 times Center daily as needed for Itching. ipratropium 2020-0 Yes 500ug Q.[id number] Take [address] (ATROVENT) 9-08 [id number] mcg by L ukes - 0.02 % 18:23: 3D nebulizati Medic al nebulizer 35 on 3 Center solution (three) times daily. magnesium 1-0 Yes 400mg Q.5D Take [address] oxide 9-08 mg by [facility] - (MAG-OX) 18:23: mouth 2 Medica l 400 mg 35 (two) Center (241.3 mg times magnesium) daily. tablet megestroL 2020-0 Yes 400mg QD Take [address] (MEGACE) 9-08 mg by [facility] - 400 mg/10 18:23: mouth Medical mL (40 35 daily. Center mg/mL) suspension polyethylen 2020-0 Yes 17g QD Take [address] e glycol 9-08 by mouth [facility] - (GLYCOLAX) 18:23: daily. Medic al 17 gram 35 Center packet gabapentin Yes 100mg Q.[id number] Take [address] (NEURONTIN) 9-08 [id number] mg by L ukes - 100 MG [...] morning on tablet an empty stomach. traZODone Yes 100mg QD Take [address] (DESYREL) 9-08 mg by [facility] - 100 MG 18:23: mouth Medical tablet 35 nightly. Center valproic Yes 1000mg Q.5D Take 1,[address] acid, as 9-08 mg by [facility] - sodium 18:23: mouth 2 Medical salt, 35 (two) Center (DEPAKENE) times 250 mg/5 mL daily. (5 mL) solution famotidine 2020- Yes 20mg Take [address] (PEPCID) 20 04-02 tablet (20 L ukes - MG tablet 00:00: 23:59 mg total) Me dical 00 :00 by mouth Center every 12 (twelve) hours for 30 days. cholecalcif 2020-2020- Yes 2000U QD Take [address] byron, 04-02 tablet [facility] - vitamin D3, 00:00: 23:59 (2,000 Med ical 2,000 unit 00 :00 Units Center Tab total) by mouth daily for 30 days. famotidine 2020- Yes 20mg Take [address] (PEPCID) 20 04-02- tablet (20 L ukes - MG tablet 00:00: 23:59 mg total) Me dical 00 :00 by mouth Center every 12 (twelve) hours for 30 days. cholecalcif 2020-0 2020- Yes 2000U QD Take [address] [place]ron, 9-05-02 tablet [facility] - vitamin D3, 00:00: 23:59 [...] 2 (two) times daily for 14 days. ciprofloxac 2020- Yes 500mg Q.5D Take [...] mouth Cent er daily for 5 days. dexAMETHaso 2020- Yes 6mg QD Take [address] ne 04-02 tablet (6 [facility] - (DECADRON) 00:00: 23:59 mg total) M edical 6 MG tablet 00 :00 by mouth Cent er daily for 5 days. apixaban Yes TWICE [facility] (ELIQUIS) 5-23 DAILY [facility] - 2.5 mg Tab 00:00: Medical tablet 00 Center apixaban Yes TWICE [facility] (ELIQUIS) 5-23 DAILY [facility] - 2.5 mg Tab 00:00: Medical tablet 00 [facility] amLODIPine Yes DAILY [facility] (NORVASC) 5-04 [facility] - 2.5 MG 00:00: Medical tablet 00 [facility] amLODIPine Yes DAILY [facility] (NORVASC) 5-04 [facility] - 2.5 MG 00:00: Medical tablet 00 [facility] Vital Signs Vital Name Observation Time Observation Value Comments Source Systolic blood 2021-04-02 15:00:00 128 mm[Hg] [facility] Diastolic blood 2021-04-02 15:00:00 72 mm[Hg] [facility] Heart rate 2021-04-02 15:00:00 63 /min [facility] Body temperature 2021-04-02 15:00:00 35.94 Blaire [facility] Respiratory rate 2021-04-02 15:00:00 20 /min [facility] Oxygen saturation in 2021-04-02 15:00:00 95 /min [facility] Arterial blood by Medical Ce nter Pulse oximetry Body weight 2021-03-31 04:00:00 87.8 kg [facility] BMI 2021-03-31 04:00:00 30.32 kg/m2 [facility] Body height 2021-03-28 21:00:00 170.2 cm [facility] Procedures Procedure Date / Time Performed Performing Clinician Sour e D-DIMER 2021-04-02 13:51:00 Nelli [facility] LACTATE DEHYDROGENASE 2021-04-02 13:50:00 Nelli [facility] ([facility]) [facility] FERRITIN 2021-04-02 13:50:00 Nelli [facility] CBC W/PLT COUNT & AUTO 2021-04-02 13:50:[address] [facility] DIFFERENTIAL [facility] C-REACTIVE PROTEIN 2021-04-02 13:50:00 Nelli [facility] PROCALCITONIN 2021-04-02 13:50:00 [place], [facility] COMPREHENSIVE METABOLIC 2021-04-02 13:50:00 Nelli [facility] PANEL [facility] MAGNESIUM 2021-04-02 13:50:00 Nelli [facility] CBC W/PLT COUNT & AUTO 2021-04-02 13:50:00 [place], [facility] S t [facility] DIFFERENTIAL [facility] POCT-GLUCOSE METER 2021-04-02 01:52:00 Renata Diggs [facility] POCT-GLUCOSE METER 2021-04-01 20:51:00 Renata Diggs Manav [facility] POCT-GLUCOSE METER 2021-04-01 16:51:00 [facility] 2021-04-01 16:50:00 Diane Gallagher [facility] URINALYSIS W/ REFLEX 2021-04-01 16:50:00 Diane Gallagher [facility] URINE CULTURE [facility] SARS-COV2/INFLUENZA/RSV 2021-04-01 16:48:00 Renata Diggs [facility] RT-PCR [facility] BASIC METABOLIC PANEL (7) 2021-04-01 16:47:00 Diane Gallagher [facility] POCT-GLUCOSE METER 2021-04-01 11:43:00 Renata Diggs Manav [facility] VANCOMYCIN LEVEL, TROUGH 2021-04-01 10:34:00 Dakotah Figuered[facility] POCT-GLUCOSE METER 2021-04-01 05:45:00 Sancho Gregory [facility] BASIC METABOLIC PANEL (7) 2021-04-01 05:26:00 Madison Newsome [facility] CBC W/PLT COUNT & AUTO 2021-04-01 05:26:00 Berny [facility] DI[facility] MAGNESIUM 2021-04-01 05:26:00 Serenio, [facility] PHOSPHORUS 2021-04-01 [facility] 2021-04-01 05:26:[address] [facility] C-REACTIVE PROTEIN 2021-04-01 05:[facility] 2021-04-01 05:[facility] 2021-04-01 05:26:00 [facility] CBC W/PLT COUNT & AUTO 2021-04-01 05:26:00 Sersuma [facility] POCT-GLUCOSE METER 2021-03-31 23:22:00 [facility] 2021-03-31 15:28:00 [facility] W/PLT COUNT & AUTO 2021-03-31 12:50:00 Sersuma [facility] MAGNESIUM 2021-03-31 12:50:00 Sersuma [facility] PHOSPHORUS 2021-03-31 12:50:00 Serenitye [facility] HEPATIC FUNCTION PANEL 2021-03-31 12:50:[address] [facility] COMPREHENSIVE METABOLIC 2021-03-31 12:50:[address] [facility] VANCOMYCIN LEVEL, RANDOM 2021-03-31 12:50:00 Joanna Jolly [facility] CBC W/PLT COUNT & AUTO 2021-03-31 12:50:00 Sersuma [facility] CALCIUM, IONIZED 2021-03-31 12:49:00 Serenio, Berny [facility] POCT-GLUCOSE METER 2021-03-31 12:08:00 [facility] POCT-GLUCOSE METER 2021-03-31 09:59:00 [facility]OLIC PANEL (7) 2021-03-31 00:07:00 Madison Newsome [facility] XR ABDOMEN / KUB 1 VIEW 2021-03-30 21:31:00 Bola Naylor [facility] POCT-GLUCOSE METER 2021-03-30 21:31:[address] [facility] POCT-GLUCOSE METER 2021-03-30 17:26:[address] [facility] XR ABDOMEN / KUB 1 VIEW 2021-03-30 17:03:00 Madison Newsome CH [facility] BASIC METABOLIC PANEL (7) 2021-03-30 16:42:00 Madison Newsome [facility] POCT-GLUCOSE METER 2021-03-30 12:50:[address] [facility] US RENAL COMPLETE 2021-03-30 11:26:00 Lan Peraza [facility] 2D ECHO W/ DOPPLER 2021-03-30 10:31:37 Jd [facility] (CW/PW/COLOR) [facility] BASIC METABOLIC PANEL (7) 2021-03-30 09:53:00 David Reeves CH, I [facility] POCT-GLUCOSE METER 2021-03-30 05:02:00 [facility] BASIC METABOLIC PANEL (7) 2021-03-30 04:12:00 David Reeves CH I [facility] CBC W/PLT COUNT & AUTO 2021-03-30 04:12[facility]00 [facility] MAGNESIUM 2021-03-30 04:12:00 [facility] 2021-03-30 04:12:00 [facility] HEPATIC FUNCTION PANEL 2021-03-30 04:12:00 [facility] C-REACTIVE PROTEIN 2021-03-30 04:12[facility] 2021-03-30 04:12:00 [facility] CALCIUM, IONIZED 2021-03-30 04:12:00 [facility] CBC W/PLT COUNT & AUTO 2021-03-30 04:12:00 [facility] POCT-GLUCOSE METER 2021-03-29 23:40:00 Sancho Gregory [facility] OSMOLALITY, URINE 2021-03-29 21:49:00 [facility] OSMOLALITY, SERUM 2021-03-29 21:49:00 [facility] SODIUM, RANDOM URINE 2021-03-29 21:49:00 [facility] CREATININE, RANDOM URINE 2021-03-29 21:49:00 [facility]OLIC PANEL (7) 2021-03-29 21:49:00 David Reeves CH, I [facility] SODIUM, RANDOM URINE 2021-03-29 17:25:00 [facility] PROTEIN, RANDOM URINE 2021-03-29 17:25:00 [facility] CREATININE, RANDOM URINE 2021-03-29 17:25:00 [facility] OSMOLALITY, URINE 2021-03-29 17:25:00 StuLan [facility] POCT-GLUCOSE METER 2021-03-29 17:21:00 [facility] BAS[facility] METABOLIC PANEL (7) 2021-03-29 16:26:00 David Reeves [facility] VALPROIC ACID LEVEL, 2021-03-29 16:26:00 Jd [facility] TOTAL [facility] PHENYTOIN LEVEL, TOTAL 2021-03-29 16:26:00 Jd [facility] BASIC METABOLIC PANEL (7) 2021-03-29 12:51:00 David Reeves [facility] POCT-GLUCOSE METER 2021-03-29 12:38:00 [facility] BASIC METABOLIC PANEL (7) 2021-03-29 09:08:00 David Reeves [facility] VANCOMYCIN LEVEL, RANDOM 2021-03-29 09:08:00 Joanna Jolly [facility] B-TYPE NATRIURETIC FACTOR 2021-03-29 09:08:00 Jd [facility] (BNP) [facility] BASIC METABOLIC PANEL (7) 2021-03-29 05:51:00 David Reeves [facility] TSH/FREE T4 IF INDICATED 2021-03-29 05:05:00 Berny Parks [facility] CBC W/PLT COUNT & AUTO 2021-03-29 05:05:[address] [facility] [facility] DIFFERENTIAL [facility] (CELLAVISION MANUAL DIFF) 2021-03-29 05:05:00 SerBerny moise [facility] CBC W/PLT COUNT & AUTO 2021-03-29 05:05:[address] [facility] - DIFFERENTIAL [facility] URINE CULTURE 2021-03-29 02:53:00 [facility] W/ REFLEX 2021-03-29 02:53:00 [facility] BLOOD CULTURE 2021-03-29 02:52:00 [facility] BLOOD GAS, ARTERIAL 2021-03-28 23:03:00 [facility] CBC (HEMOGRAM ONLY) 2021-03-28 23:02:00 [facility] PT/APTT 2021-03-28 23:02:00 [facility] D-DIMER 2021-03-28 23:02:00 [facility] LACTIC ACID, VENOUS 2021-03-28 23:02:00 [facility] CALCIUM, IONIZED 2021-03-28 23:02:00 [facility] COMPREHENSIVE METABOLIC 2021-03-28 22:29:00 [facility] C-REACTIVE PROTEIN 2021-03-28 22:29:00 [facility] MAGNESIUM 2021-03-28 22:29:[address] [facility] PHOSPHORUS 2021-03-28 22:29:00 [facility] CREATINE KINASE (CK) 2021-03-28 22:29:00 [facility] XR ABDOMEN / KUB 1 VIEW 2021-03-28 22:07:00 [facility] XR CHEST 1 VIEW PORTABLE 2021-03-28 21:59:00 [facility] / BEDSIDE [facility] Plan of Care Planned Activity Planned Date Details Comments Source Future Scheduled 2021-03-26 INFLUENZA VACCINE (#1) [facility] 00:00:00 [code = INFLUENZA Medical Ce nter VACCINE (#1)] Future Scheduled 2021-03-26 INFLUENZA VACCINE (#1) [facility] Test 00:00:00 [code = INFLUENZA Medical Ce nter VACCINE (#1)] Future Scheduled 2020-07-[address] [facility] - Test 00:00:00 (12+) [code = Medical Center DEPRESSION SCREENING (12+)] Future Scheduled 2020-07-[address] [facility] - Test 00:00:00 (12+) [code = Medical Center DEPRESSION SCREENING (12+)] Future Scheduled 2008 PNEUMOCOCCAL 65+ Y[facility] - Test 00:00:00 (1 of 1 - Medical Center [id number] PCV13) [code = PNEUMOCOCCAL 65+ YRS (1 of 1 - [id number] PCV13)] Future Scheduled 2008 PNEUMOCOCCAL 65+ Y[facility] - Test 00:00:00 (1 of 1 - Medical Center [id number] PCV13) [code = PNEUMOCOCCAL 65+ YRS (1 of 1 - [id number] PCV13)] Future Scheduled 2005-03-[address] [facility] - Test 00:00:00 WELLNESS (YEAR 2 or Medical Center FIRST YEAR if no IPPE) [code = MEDICARE ANNUAL WELLNESS (YEAR 2 or FIRST YEAR if no IPPE)] Future Scheduled 2005-03-[address] [facility] - Test 00:00:00 WELLNESS (YEAR 2 or Medical Center FIRST YEAR if no IPPE) [code = MEDICARE ANNUAL WELLNESS (YEAR 2 or FIRST YEAR if no IPPE)] Future Scheduled 1993 SHINGLES VACCINES ([address] [facility] - Test 00:00:00 of 2) [code = SHINGLES Medic al Center VACCINES (1 of 2)] Future Scheduled 1993 SHINGLES VACCINES ([address] [facility] - Test 00:00:00 of 2) [code = SHINGLES Medic al Center VACCINES (1 of 2)] Future Scheduled 1962 DTAP/TDAP/TD VACCINES [facility] Test 00:00:00 (1 - Tdap) [code = Medical C enter DTAP/TDAP/TD VACCINES (1 - Tdap)] Future Scheduled 1962 DTAP/TDAP/TD VACCINES [facility] Test 00:00:00 (1 - Tdap) [code = Medical C enter DTAP/TDAP/TD VACCINES (1 - Tdap)] Future Scheduled 1961 HEPATITIS C SCREENING [facility] Test 00:00:00 [code = HEPATITIS C Medical Center SCREENING] Future Scheduled 1961 HEPATITIS C [facility]CRE[facility]ING [facility] Test 00:00:00 [code = HEPATITIS C Medical Center SCREENING] Future Scheduled 1955 COVID-19 VACCINE (1) [facility] - Test 00:00:00 [code = COVID-[address] VACCINE (1)] Future Scheduled 1955 COVID-19 VACCINE (1) [facility] - Test 00:00:00 [code = COVID-[address] VACCINE (1)] Encounters Start End Encounter Admission Attending Care Care Encounter Source Date/Time Date/Time Type Type Clinicians Facility Department ID 2021-03-28 2021-04-02 [facility] [id number] [facility] 20[facility]39:00 18:23:00 Encounter [facility]uniga [facility] 2021-03-28 2021-04-02 [facility] [id number] [facility] 20:[facility]00 18:23:00 [facility] 2021-03-29 2021-03-[address] [facility] [id number] [facility]00 [facility] 2021-03-29 2021-03-[address] [facility] [id number] [facility]00 [facility] Results Test Description Test Time Test Comments Results Result Comments Source Urine culture 2021-04-03 09:42:00 Test Item Value Reference Range Interpretation Comme nts Result (test code = 6463-4) 80-89,000 col/mL Capri tropicalis A Lab Interpretation (test code = 12537-3) [facility]normal [facility] [id number] 09:42:00 Test Item Value Reference Range Interpretation Comments Result (test code = 80-89,000 col/mL A 6463-4) Capri tropicalis Lab Interpretation (test Abnormal code = 97968-7) [facility] Culture - Routine (Left Venipuncture) 2021-04-03 04:01:00 Test Item Value Reference Range Interpretation Comments Result (test code = No growth in 5 days 6463-4) [facility] Culture - Routine (Left Venipuncture) 2021-04-03 04:01:00 Test Item Value Reference Range Interpretation Comments Result (test code = No growth in 5 days 6463-4) [id number]:00 Test Item Value Reference Range Interpretation Comments CULTURE (BEAKER) (test No growth in 5 days code = 1095) BLOOD [id number] 04:01:00 Test Item Value Reference Range Interpretation Comments CULTURE (BEAKER) (test No growth in 5 days code = 1095) Rwynjiuv9220-08-38 14:50:00 Test Item Value Reference Range Interpretation Comments Ferritin (test code = 486.66 ng/mL 5-275 H 2276-4) 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 [place] Lab Interpretation (test Abnormal code = 03285-8) [facility] 14:50:00 Test Item Value Reference Range Interpretation Comments Ferritin (test code = 486.66 ng/mL 5.00-275.00 H 2276-4) 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 Th e reference range was not used to interpret this result as normal/abnormal . STACY (test code = STACY) SEPSIS RISK (ng/mL)Low: 0.05-0.50Inter mediate: 0.51-2.00High: >=2.01 Lab Interpretation Normal (test code = 19616-2) [facility] 14:43:00 Test Item Value Reference Range Interpretation Comments Procalcitonin (test <0.05 See_Comment [Automa saulo code = 97211-9) message] The system which generated this result transmit saulo reference range : <0.05 ng/mL. Th e reference range was not used to interpret this result as normal/abnormal . STACY (test code = STACY) SEPSIS RISK (ng/mL)Low: 0.05-0.50Inter mediate: 0.51-2.00High: >=2.01 Lab Interpretation Normal (test code = 82549-1) [facility] 14:43:00 Test Item Value Reference Range Interpretation Comments PROCALCITONIN (BEAKER) (test code = < ng/mL <0.05 3036) SEPSIS RISK (ng/mL)Low: 0.05-0.50Intermediate: 0.51-2.00High: >=2.01Comprehensive metabolic [id number] 14:39:00 Test Item Value Reference Range Interpretation [...] 2.0 g/dL 3.5-5 L Specime n slightly 41191-1) hemolyzed Alkaline Phosphatase 65 U/L 40-150 (test code = 6768-6) Total Bilirubin (test 0.4 mg/dL 0.2-1.2 Specim en slightly code = 1974-2) hemolyzed Sodium (test code = 141 meq/L 763-715 2574-2) Potassium (test code 3.3 meq/L 3.5-5.1 L Specime n slightly = 2823-3) hemolyzed Chloride (test code = 113 meq/L 98-107 H 5-0) CO2 (test code = 20 meq/L 22-29 L 8-9) BUN (test code = 39 mg/dL 7-21 H 3094-0) Creatinine (test code 0.79 mg/dL 0.57-1.25 Specim en slightly = 2160-0) hemolyzed Glucose (test code = 100 mg/dL 70-105 2345-7) Calcium (test code = 7.2 mg/dL 8.4-10.2 L 91750-4) AST (test code = 38 U/L 5-34 H Specimen sl ightly 1920-8) hemolyzed ALT (test code = 31 U/L 6-55 Specimen sl ightly 1742-6) hemolyzed EGFR (test code = 95 mL/min/1.73 [place] [address]-8) NOT ACCURATE CREATININE CLEARANCE IN PREDICTING GLOMERULAR FILTRATION RATE . ESTIMATED GFR I S NOT APPLICABLE FOR DIALYSIS PATIEN TS. 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 The reference range was not u sed to interpret th is result as normal/abnormal . Albumin (test code = 2.0 g/dL 3.5-5.0 L Specime n slightly 73425-0) hemolyzed Alkaline Phosphatase 65 U/L 40-150 (test code = 6768-6) Total Bilirubin (test 0.4 mg/dL 0.2-1.2 Specim en slightly code = 1975-2) hemolyzed Sodium (test code = 141 meq/L 172-210 0636-2) Potassium (test code 3.3 meq/L 3.5-5.1 L Specime n slightly = 2823-3) hemolyzed Chloride (test code = 113 meq/L 98-107 H 2075-0) CO2 (test code = 20 meq/L 22-29 L 8-9) BUN (test code = 39 mg/dL 7-21 H 3094-0) Creatinine (test code 0.79 mg/dL 0.57-1.25 Specim en slightly = 2160-0) hemolyzed Glucose (test code = 100 mg/dL 70-105 2345-7) Calcium (test code = 7.2 mg/dL 8.4-10.2 L 20833-3) AST (test code = 38 U/L 5-34 H Specimen sl ightly 1920-8) hemolyzed ALT (test code = 31 U/L 6-55 Specimen sl ightly 1742-6) hemolyzed EGFR (test code = 95 mL/min/1.[place] [address]-9) NOT ACCURATE CREATININE CLEARANCE IN PREDICTING GLOMERULAR FILTRATION RATE . ESTIMATED GFR I S NOT APPLICABLE FOR DIALYSIS PATIEN TS. 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 - PIAYA L Lab Interpretation Abnormal (test code = 98036-0) [facility]Lact[facility] dehydrogenase (LDH)2021-04-02 14:39:00 Test Item Value Reference Range Interpretation Comments LDH (test code = 390 U/L 125-220 H Specimen 2532-0) slightly hemolyzed 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 - PIAYA L Lab Interpretation Abnormal (test code = 29194-8) [facility]LACT[facility] DEHYDROGENASE (LDH)2021-04-02 14:39:00 Test Item Value Reference Range Interpretation Comments LACTATE DEHYDROGENASE 390 U/L 125-220 H Specim en slightly (BEAKER) (test code = hemoly zed 635) Sewer Bricklayer ID - PIAYA LCOMPREHENSIVE METABOLIC [id number] 14:39:00 Test Item Value Reference Range Interpretation [...] S NOT APPLICABLE FOR DIALYSIS PATIEN TS. Sewer Bricklayer ID - PIAYA PEtsmsbieo7367-69-82 14:35:00 Test Item Value Reference Range Interpretation Comments Magnesium (test code = 1.4 mg/dL 1.6-2.6 L Speci men 49443-1) slightly hemolyzed 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 - PIAYA L Lab Interpretation Abnormal (test code = 48569-1) [facility]-Reactive [id number] 14:35:00 Test Item Value Reference Range Interpretation Comments CRP (test code = 676) 2.68 mg/dL 0-0.5 H 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 - PIAYA L Lab Interpretation (test Abnormal code = 11203-9) [facility] HospitalMagnesium2021-09-08 14:35:00 Test Item Value Reference Range Interpretation Comments Magnesium (test code = 1.4 mg/dL 1.6-2.6 L Speci men 29260-1) slightly hemolyzed 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 - PIAYA L Lab Interpretation Abnormal (test code = 76256-6) [facility] [id number] 14:35:00 Test Item Value Reference Range Interpretation Comments CRP (test code = 676) 2.68 mg/dL 0.00-0.50 H 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 - PIAYA L Lab Interpretation (test Abnormal code = 57660-9) [facility]REACTIVE [id number] 14:35:00 Test Item Value Reference Range Interpretation Comments C-REACTIVE PROTEIN (BEAKER) (test 2.68 mg/dL 0.00-0.50 H code = 676) 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 [id number] 14:35:00 Test Item Value Reference Range Interpretation Comments MAGNESIUM (BEAKER) 1.4 mg/dL 1.6-2.6 L Specimen slightly (test code = 627) hemolyzed 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 RF-[id number] 14:24:00 Test Item Value Reference Range Interpretation Comments D-Dimer, Quant (test 1.25 See_Comment H [Autom ated code = 09988-6) message] The system which generated this result [...] range. Lab Interpretation Abnormal (test code = 60106-5) [facility]-acwis5428-86-95 14:24:00 Test Item Value Reference Range Interpretation Comments D-Dimer, Quant (test 1.25 See_Comment H [Autom ated code = 74807-5) message] The system which generated this result transmitted reference range : <0.50 MG/L FEU. The reference range was not used to interpr et this result as normal/abnormal . TSACY (test code = STACY) Intended Use: The [...] range. Lab Interpretation Abnormal (test code = 86595-3) [id number] 14:24:00 Test Item Value Reference Range Interpretation [...] 95-100% range.CBC with platelet count + automated [id number] 14:17:00 Test Item Value Reference Range Interpretation Comments WBC (test code = 6690-2) 14.6 See_Comment H [A utomated message] The system [employer] generated this result transmitted ref erence range: 3.5 - 10 .5 K/L. The refe rence range was not u sed to interpret this result as normal/abnor mal. RBC (test code = 789-8) 4.03 See_Comment L [Au tomated message] The system [employer] generated this result transmitted ref erence range: 4.63 - 6 .08 M/L. The refe rence range was not u sed to interpret this result as normal/abnor mal. MCHC (test code = 786-4) 32.0 See_Comment L [A utomated message] The system [employer] generated this result transmitted ref erence range: [...] See_Comment [Aut omated message] 777-3) The system [employer] generated this result transmitted ref erence range: 150 - 45 0 K/CU MM. The referen ce range was not u sed to interpret this result as normal/abnor mal. MPV (test code = 11.2 fL 9.4-12.4 54567-9) nRBC (test code = 413) 1 See_Comment H [Aut omated message] The system [employer] generated this result transmitted ref erence range: [...] H [Aut omated message] 670) The system [employer] generated this result transmitted ref erence range: 1.78 - 5 .38 K/L. The refe rence range was not u sed to interpret this result as normal/abnor mal. # Lymphs (test code = 1.26 See_Comment L [Auto mated message] 414) The system [employer] generated this result transmitted ref erence range: 1.32 - 3 .57 K/L. The refe rence range was not u sed to interpret this result as normal/abnor mal. # Monos (test code = 0.76 See_Comment [Autom ated message] 415) The system [employer] generated this result transmitted ref erence range: 0.30 - 0 .82 K/L. The refe rence range was not u sed to interpret this result as normal/abnor mal. # Eos (test code = 416) 0.00 See_Comment L [Au tomated message] The system [employer] generated this result transmitted ref erence range: 0.04 - 0 .54 K/L. The refe rence range was not u sed to interpret this result as normal/abnor mal. # Baso (test code = 417) 0.03 See_Comment [A utomated message] The system [employer] generated this result transmitted ref erence range: 0.01 - 0 .08 K/L. The refe rence range was not u sed to interpret this result as normal/abnor mal. Immature 2 % 0-1 H Granulocytes-Relative (test code = 2801) Lab Interpretation (test Abnormal code = 86431-7) [facility] with platelet count + automated [id number] 14:17:00 Test Item Value Reference Range Interpretation Comments WBC (test code = 6690-2) 14.6 See_Comment H [A utomated message] The system [employer] generated this result transmitted ref erence range: 3.5 - 10 .5 K/L. The refe rence range was not u sed to interpret this result as normal/abnor mal. RBC (test code = 789-8) 4.03 See_Comment L [Au tomated message] The system [employer] generated this result transmitted ref erence range: 4.63 - 6 .08 M/L. The refe rence range was not u sed to interpret this result as normal/abnor mal. MCHC (test code = 786-4) 32.0 See_Comment L [A utomated message] The system [employer] generated this result transmitted ref erence range: 32.3 - 3 6.5 GM/DL. The refe rence range was not u sed to interpret this result as normal/abnor mal. Hematocrit (test code = 41.2 % 40.1-51.0 4544-3) MCV (test code = 787-2) 102.2 fL 79.0-92.2 H MCH (test code = 785-6) 32.8 pg 25.7-32.2 H RDW (test code = 788-0) 16.4 % 11.6-14.4 H Platelets (test code = 264 See_Comment [Aut omated message] 777-3) The system [employer] generated this result transmitted ref erence range: 150 - 45 0 K/CU MM. The referen ce range was not u sed to interpret this result as normal/abnor mal. MPV (test code = 11.2 fL 9.4-12.4 58388-3) nRBC (test code = 413) 1 See_Comment H [Aut omated message] The system [employer] generated this result transmitted ref erence range: [...] H [Aut omated message] 670) The system [employer] generated this result transmitted ref erence range: 1.78 - 5 .38 K/L. The refe rence range was not u sed to interpret this result as normal/abnor mal. # Lymphs (test code = 1.26 See_Comment L [Auto mated message] 414) The system [employer] generated this result transmitted ref erence range: 1.32 - 3 .57 K/L. The refe rence range was not u sed to interpret this result as normal/abnor mal. # Monos (test code = 0.76 See_Comment [Autom ated message] 415) The system [employer] generated this result transmitted ref erence range: 0.30 - 0 .82 K/L. The refe rence range was not u sed to interpret this result as normal/abnor mal. # Eos (test code = 416) 0.00 See_Comment L [Au tomated message] The system [employer] generated this result transmitted ref erence range: 0.04 - 0 .54 K/L. The refe rence range was not u sed to interpret this result as normal/abnor mal. # Baso (test code = 417) 0.03 See_Comment [A utomated message] The system [employer] generated this result transmitted ref erence range: 0.01 - 0 .08 K/L. The refe rence range was not u sed to interpret this result as normal/abnor mal. Immature 2 % 0-1 H Granulocytes-Relative (test code = 2801) Lab Interpretation (test Abnormal code = 47887-9) [facility] W/PLT COUNT & AUTO [id number] 14:17:00 Test Item Value Reference Range Interpretation [...] PERCENT (BEAKER) (test code = 2801) POC-Glucose [id number] 02:03:00 Test Item Value Reference Range Interpretation Comments POC-Glucose Meter (test 115 mg/dL 70-110 H : TE STED AT [facility] code = 1538) [address] [place] [address], 770 30: Sewer Bricklayer/Techni tressa ID = [id number] for Desin (contract ), Nhi Lab Interpretation (test Abnormal code = 44610-3) [facility]-Glucose [id number] 02:03:00 Test Item Value Reference Range Interpretation Comments POC-Glucose Meter (test 115 mg/dL 70-110 H : TE STED AT [facility] code = 1538) [address] [place] [address], 770 30: Sewer Bricklayer/Techni tressa ID = [id number] for Desin (contract ), Nhi Lab Interpretation (test Abnormal code = 39821-0) [facility]-GLUCOSE [id number] 02:03:00 Test Item Value Reference Range Interpretation Comments POC-GLUCOSE METER 115 mg/dL 70-110 H : TESTED A T BSC 6720 ([employer]) (test code = ROMINA Payne [facility], 1538) [address]: Sewer Bricklayer/Techni tressa ID = [id number] for [employer] (contract)[employer] POCT-GLUCOSE [id number] 21:04:00 Test Item Value Reference Range Interpretation Comments POC-GLUCOSE METER 143 mg/dL 70-110 H : TESTED A T [facility]SC 6720 ([employer]) (test code = ROMINA Payne [facility], 1538) [address]18[address]: Sewer Bricklayer/Techni tressa ID = [id number] for NEHA OLSON SARS-CoV2/Influenza/RSV RT-PCR (Symptomatic ONLY)2021-04-01 19:00:00 Test Item Value Reference Interpretation Comments Range SARS-COV2/RT-PCR Positive Negative AA The SARS-Co V-2 (test code = target nucleic 80623-5) acids are detec saulo in this specime [...] (test code = [place] [address]-9) not detected in this specimen. Influenza B RT-PCR Negative Negative The Flu B target (test code = [place] 81386-8) not detected in this specimen. RSV by RT-PCR (test Negative Negative The RSV target code = 25967-8) nucleic acid s are not detected in [...] SARS-CoV-2/Flu/RSV by their healthcare provider. Results from [facility] Xpert Xpress SARS-CoV-2/Flu/RSV test should be correlated [...] the Act. Fact Sheet for Healthcare Providers:https://w ww.[employer]/Docu ments/Xpert%20Xpres s%20SARS%20CoV-2/Fa ct%20Sheets/302-390 2%96ZYVE-LXX-6%20HE ALTHCARE%20PROVIDER S%20FACT%20SHEET.pd f Fact Sheet for Healthcare Patients:https://cady w.[employer]/Docum ents/Xpert%20Xpress %20SARS%20Cov-2/Fac t%20Sheets/302-3801 %70JUYF-YAJ-3%20PAT IENT%20FACT%20SHEET .pdf Lab Interpretation Abnormal (test code = 33920-2) [facility] [place] (Symptomatic ONLY) 2021-04-01 19:00:00 Test Item Value Reference Interpretation Comments Range SARS-COV2/RT-PCR Positive Negative AA The SARS-Co V-2 (test code = target nucleic 62952-9) acids are detec saulo in this specime [...] (test code = [place] [address]09[address]-3) not detected in this specimen. Influenza B RT-PCR Negative Negative The Flu B target (test code = [place] 97089-8) not detected in this specimen. RSV by RT-PCR (test Negative Negative The RSV target code = 28294-5) nucleic acid s are not detected in [...] SARS-CoV-2/Flu/RSV by their healthcare provider. Results from [facility] Xpert Xpress SARS-CoV-2/Flu/RSV test should be correlated [...] the Act. Fact Sheet for Healthcare Providers:https://w [employer]/Docu ments/Xpert%20Xpres s%20SARS%20CoV-2/Fa ct%20Sheets/302-390 2%95MZPT-YFH-5%20HE ALTHCARE%20PROVIDER S%20FACT%20SHEET.pd f Fact Sheet for Healthcare Patients:https://cady [employer]/Docum ents/Xpert%20Xpress %20SARS%20Cov-2/Fac t%20Sheets/302-3801 %39HNGK-VAO-4%20PAT IENT%20FACT%20SHEET .pdf Lab Interpretation Abnormal (test code = 79888-1) [facility] [place]FLU[place]/RSV [id number] 19:00:00 Test Item Value Reference Range Interpretation Comments SARS-COV2/RT-PCR Positive Negative AA The SARS-Co V-2 target (test code = nucleic acids a re ) detected in thi s specimen. The presence [...] rapid, real-time RT-PC R test intended for th e qualitative det ection of nucleic acid fr om SARS-CoV-2 in a nasopharyngeal swab specimen collec saulo from individuals teressa pected of COVID-19 by the [facility] ider. Results from th e Xpert Xpress SARS-CoV -2 test should be [...] The RSV ta rget nucleic code = 19100831) acids are no t detected in this [...] SARS-CoV-2/Flu/RSV by their healthcare provider. Results from aston Xpert Xpress SARS-CoV-2/Flu/RSV test should be correlated [...] of the Act.Fact Sheet for Healthcare Providers :https://www.[employer]/Documents/Xpert%20Xpress%20SARS%20CoV-2/Fact%20Sheets/3 3902%70CDGI-PZW-3%20HEALTHCARE%20PROVIDERS%20FACT%20SHEET.pdfFact Sheet for Healthcare Patients:https://www.[employer].com /Documents/Xpert%20Xpress%20SARS%20Cov-2/Fact%20Sheets/3023801%36CQPC-LTJ-2%20P ATIENT%20FACT%20SHEET.pdfUrinalysis w/Microscopic + Reflex to [id number] 17:43:00 Test Item Value Reference Range Interpretation Comments Color, UA (test code Yellow = 5778-6) Clarity, UA (test Hazy code = 5767-9) Specific [place], UA 1.031 1.001-1.035 (test code = 5811-5) pH, UA (test code = 6.0 5.0-8.0 5803-2) Protein, UA (test 70 mg/dL Negative A code = 14994-4) Glucose, UA (test Negative Negative code = 365) Ketones, UA (test Trace Negative A code = 2514-8) Bilirubin, UA (test Negative Negative code = 28698-0) Blood, UA (test code Moderate Negative A = 14091-6) Nitrite, UA (test Negative Negative code = 5802-4) Leukocytes, UA (test Small Negative A code = 5799-2) Urobilinogen, UA 0.2 mg/dL 0.2-1 (test code = 44396-8) RBC, UA (test code = 27 See_Comment [Autom ated 08819-5) message] The system which generated this result [...] Bacteria, UA (test None Seen code = 25409-0) Mucus (test code = Rare 8247-9) Squam Epithel, UA <1 See_Comment [Automate d (test code = 87390-6) messag e] The system which generated this result transmitted reference range : /HPF. The reference range was not used to interpret this result as normal/abnormal . Hyaline Casts, UA 3 See_Comment [Automate d (test code = 27027-9) messag e] The system which generated this result transmitted reference range : /LPF. The reference range was not used to interpret this result as normal/abnormal . Crystals, Urine (test None Seen code = 49841-0) Yeast (test code = Occasional 04476-9) Specimen Source (test code = 2795) 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 - [auto]Sewer Bricklayer ID - tech Lab Interpretation Abnormal (test code = 11780-2) [facility]/Microscopic + Reflex to Culture 2021-04-01 17:43:00 Test Item Value Reference Range Interpretation Comments Color, UA (test code Yellow = 5778-6) Clarity, UA (test Hazy code = 5767-9) Specific [place], UA 1.031 1.001-1.035 (test code = 5811-5) pH, UA (test code = 6.0 5.0-8.0 5803-2) Protein, UA (test 70 mg/dL Negative A code = 09542-8) Glucose, UA (test Negative Negative code = 365) Ketones, UA (test Trace Negative A code = 2514-8) Bilirubin, UA (test Negative Negative code = 51926-4) Blood, UA (test code Moderate Negative A = 98947-9) Nitrite, UA (test Negative Negative code = 5802-4) Leukocytes, UA (test Small Negative A code = 5799-2) Urobilinogen, UA 0.2 mg/dL 0.2-1.0 (test code = 86499-7) RBC, UA (test code = 27 See_Comment [Autom ated 27864-7) message] The system which generated this result [...] Bacteria, UA (test None Seen code = 54268-3) Mucus (test code = Rare 8247-9) Squam Epithel, UA <1 See_Comment [Automate d (test code = 33013-0) messag e] The system which generated this result transmitted reference range : /HPF. The reference range was not used to interpret this result as normal/abnormal . Hyaline Casts, UA 3 See_Comment [Automate d (test code = 79451-1) messag e] The system which generated this result transmitted reference range : /LPF. The reference range was not used to interpret this result as normal/abnormal . Crystals, Urine (test None Seen code = 06859-5) Yeast (test code = Occasional 53011-0) Specimen Source (test code = 2795) 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 - [auto]Sewer Bricklayer ID - tech Lab Interpretation Abnormal (test code = 39385-6) [facility]FLEX URINE [id number] 17:43:00 Test Item Value Reference Range Interpretation [...] = 1585) Occasional SOURCE(BEAKER) (test code = 2795) Sewer Bricklayer ID - [auto]Sewer Bricklayer ID - techBasic Metabolic [id number] 17:22:00 Test Item Value Reference Range Interpretation Comments Sodium (test code = 143 meq/L 830-789 3103-2) Potassium (test code = 3.3 meq/L 3.5-5.1 L 2823-3) Chloride (test code = 117 meq/L 98-107 H 2075-0) CO2 (test code = 18 meq/L 22-29 L 2028-9) BUN (test code = 44 mg/dL 7-21 H 3094-0) Creatinine (test code 0.87 mg/dL 0.57-1.25 = 2160-0) Glucose (test code = 170 mg/dL 70-105 H 2345-7) Calcium (test code = 7.4 mg/dL 8.4-10.2 L 82851-5) EGFR (test code = 85 mL/min/1.73 [place] [address]-3) NOT ACCURATE CREATININE CLEARANCE IN PREDICTING GLOMERULAR FILTRATION RATE . ESTIMATED GFR I S NOT APPLICABLE FOR DIALYSIS PATIENTS. 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 - BS Lab Interpretation Abnormal (test code = 45016-5) [facility] Metabolic [id number] 17:22:00 Test Item Value Reference Range Interpretation Comments Sodium (test code = 143 meq/L 444-891 3056-2) Potassium (test code = 3.3 meq/L 3.5-5.1 L 2823-3) Chloride (test code = 117 meq/L 98-107 H 2075-0) CO2 (test code = 18 meq/L 22-29 L 2028-9) BUN (test code = 44 mg/dL 7-21 H 3094-0) Creatinine (test code 0.87 mg/dL 0.57-1.25 = 2160-0) Glucose (test code = 170 mg/dL 70-105 H 2345-7) Calcium (test code = 7.4 mg/dL 8.4-10.2 L 07172-5) EGFR (test code = 85 mL/min/1.73 [place] [address]-0) NOT ACCURATE CREATININE CLEARANCE IN PREDICTING GLOMERULAR FILTRATION RATE . ESTIMATED GFR I S NOT APPLICABLE FOR DIALYSIS PATIENTS. 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 - BS Lab Interpretation Abnormal (test code = 86343-9) [facility] METABOLIC [id number] 17:22:00 Test Item Value Reference Range Interpretation [...] S NOT APPLICABLE FOR DIALYSIS PATIEN TS. Sewer Bricklayer ID - BSPOCT-GLUCOSE [id number] 17:03:00 Test Item Value Reference Range Interpretation Comments POC-GLUCOSE METER 161 mg/dL 70-110 H : TESTED A T [facility] 6720 (BEAKER) (test code = [facility], 1538) [address]: Sewer Bricklayer/Techni tressa ID = [id number] for DINH MCKENZIE, ASHLEY POCT-GLUCOSE [id number] 11:55:00 Test Item Value Reference Range Interpretation Comments POC-GLUCOSE METER 171 mg/dL 70-110 H : TESTED A T [facility] 6720 (BEAKER) (test code = [facility], 1538) [address]: Sewer Bricklayer/Techni tressa ID = [id number] for LLANES-RENETTA JONAH, ASHLEY Vancomycin level, [id number] 11:02:00 Test Item Value Reference Range Interpretation Comments Vancomycin Tr (test code = 19.1 ug/mL 05-142-3) 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 - WINNIE C Lab Interpretation (test Normal code = 20099-9) [facility] HospitalVancomycin level, [id number] 11:02:00 Test Item Value Reference Range Interpretation Comments Vancomycin Tr (test code = 19.1 ug/mL 10.0-20.0 4092-3) 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 - WINNIE C Lab Interpretation (test Normal code = 44938-2) [facility] HospitalVANCOMYCIN LEVEL, [id number] 11:02:00 Test Item Value Reference Range Interpretation Comments VANCOMYCIN TROUGH (BEAKER) (test 19.1 ug/mL 10.0-20.0 code = 522) Sewer Bricklayer ID - WINNIE CCreatine Kinase (CK)2021-04-01 06:28:00 Test Item Value Reference Range Interpretation Comments Total CK (test code = 19 U/L 29-200 L 2157-6) 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 L Lab Interpretation (test Abnormal code = 77475-7) [facility] HospitalCreatine Kinase (CK)2021-04-01 06:28:00 Test Item Value Reference Range Interpretation Comments Total CK (test code = 19 U/L 29-200 L 2157-6) 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 L Lab Interpretation (test Abnormal code = 06871-5) [facility] HospitalBASIC METABOLIC [id number] 06:28:00 Test Item Value Reference Range Interpretation [...] 697) EGFR (BEAKER) (test 71 mL/min/1.73 ESTIMA SUALO GFR IS code = 1092) sq m NOT ACCURATE CREATININE CLEARANCE IN PREDICTING GLOMERULAR FILTRATION RATE . ESTIMATED GFR I S NOT APPLICABLE FOR DIALYSIS PATIEN TS. 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 LCREATINE KINASE (CK)2021-04-01 06:28:00 Test Item Value Reference Range Interpretation Comments CREATINE KINASE TOTAL (BEAKER) (test 19 U/L 29-200 L code = 380) 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 LHepatic function [id number] 06:09:00 Test Item Value Reference Range Interpretation [...] 2.1 g/dL 3.5-5 L Specime n slightly 22283-7) hemolyzed Total Bilirubin (test 0.4 mg/dL 0.2-1.2 [...] 1742-6) hemolyzed 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 L Lab Interpretation Abnormal (test code = 31497-4) [facility] HospitalPhosphorus2021-09-07 06:09:00 Test Item Value Reference Range Interpretation Comments Phosphorus (test code 2.9 mg/dL 2.3-4.7 Specim en = 2777-1) slightly hemolyzed 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 L Lab Interpretation Normal (test code = 66938-5) [facility] HospitalHepatic function [id number] 06:09:00 Test Item Value Reference Range Interpretation Comments Protein, Total (test 6.0 See_Comment Specime n slightly code = 2885-2) hemolyzed [Automated message] The system which generated this result transmit saulo reference range : 6.0 - 8.3 gm/dL . The reference range was not u sed to interpret th is result as normal/abnormal . Albumin (test code = 2.1 g/dL 3.5-5.0 L Specime n slightly 90306-3) hemolyzed Total Bilirubin (test 0.4 mg/dL 0.2-1.2 Specim en slightly code = 1975-2) hemolyzed Bilirubin, Direct 0.2 mg/dL 0.1-0.5 Specimen s lightly (test code = 1967-7) hemolyz ed Alkaline Phosphatase 54 U/L 40-150 (test code = 6768-6) AST (test code = 54 U/L 5-34 H Specimen sl ightly 1920-8) hemolyzed ALT (test code = 33 U/L 6-55 Specimen sl ightly 1742-6) hemolyzed 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 - PIAYA L Lab Interpretation Abnormal (test code = 60843-6) [facility] HospitalPhosphorus2021-09-07 06:09:00 Test Item Value Reference Range Interpretation Comments Phosphorus (test code 2.9 mg/dL 2.3-4.7 Specim en = 2777-1) slightly hemolyzed 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 - PIAYA L Lab Interpretation Normal (test code = 44814-7) [facility] HospitalMAGNESIUM2021-09-07 06:09:00 Test Item Value Reference Range Interpretation Comments MAGNESIUM (BEAKER) 1.5 mg/dL 1.6-2.6 L Specimen slightly (test code = 627) hemolyzed Sewer Bricklayer ID - PIAYA [id number] 06:09:00 Test Item Value Reference Range Interpretation Comments PHOSPHORUS (BEAKER) 2.9 mg/dL 2.3-4.7 Specimen slightly (test code = 604) hemolyzed Sewer Bricklayer ID - PIAYA LHEPATIC FUNCTION [id number] 06:09:00 Test Item Value Reference Range Interpretation [...] Specimen slightly (test code = 347) hemolyzed Sewer Bricklayer ID - PIJONNY LC-REACTIVE [id number] 06:09:00 Test Item Value Reference Range Interpretation Comments C-REACTIVE PROTEIN (BEAKER) (test 2.48 mg/dL 0.00-0.50 H code = 676) 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 LCalcium, Pnnamks2423-16-94 06:05:00 Test Item Value Reference Range Interpretation Comments Calcium, Ion (test code = 1993-09) 1.11 mmol/L 1.12-1.27 L pH, Blood (test code = 61150-9) 7.37 Lab Interpretation (test code = Abnormal 23852-0) [facility] HospitalCalcium, [id number] 06:05:00 Test Item Value Reference Range Interpretation Comments Calcium, Ion (test code = 1993-09) 1.11 mmol/L 1.12-1.27 L pH, Blood (test code = 67754-6) 7.37 Lab Interpretation (test code = Abnormal 28939-5) [facility] HospitalCALCIUM, [id number] 06:05:00 Test Item Value Reference Range Interpretation Comments CALCIUM IONIZED (BEAKER) (test 1.11 mmol/L 1.12-1.27 L code = 698) PH, BLOOD (BEAKER) (test code = 7.37 1810) POCT-GLUCOSE [id number] 05:57:00 Test Item Value Reference Range Interpretation Comments POC-GLUCOSE METER 134 mg/dL 70-110 H : TESTED A T [facility] 6720 (BEAKER) (test code = [place], 1538) [address]: Sewer Bricklayer/Techni tressa ID = [id number] for KALPANA HANSEN CBC W/PLT COUNT & AUTO [id number] 05:52:00 Test Item Value Reference Range Interpretation [...] PERCENT (BEAKER) (test code = 2801) POCT-GLUCOSE [id number] 23:33:00 Test Item Value Reference Range Interpretation Comments POC-GLUCOSE METER 77 mg/dL 70-110 : TESTED A T [facility] 6720 (RENEA) (test code = [place], 1538) [address]: Sewer Bricklayer/Techni tressa ID = [id number] for Cart er (agency), Selin vlaladares 2D Echo W/Doppler(CW/PW/Color)2021-03-31 17:56:10Ejection FractionSLEH ECHO HEARTLAB MKCKESSON CPACSInterface, External Ris In - 03/31/2021 5:56 PM C DTTransthoracic Echocardiography Report (TTE) Demographics Patient Name KEVIN HAMMOND Date of Study 03/30/2021 Gender Male Visit Number [id number] Race Unknown Room Number C628 Number Date of 1945 Referring Physician JD JEFFERSON Age 75 year(s) Coverage Specialist Rn Mili Malagon [facility] Keg Filler Ger Hui Interpreting Doc Tolbert MD Physician [...] pressure is 30-35 mmHg (normal range). 3. Lgjb-sc-fletqegq mitral regurgitation. Previous Study No prior exam [...] regurgitation. Mitral Valve Mild MV leaflet thickening. Weln-gl-enujpqqp mitral regurgitation. Tricuspid Valve Trace tricuspid regurgitation. [...] CO: 5.76 l/min LVOT CI: 2.89 l/min/m^2[facility] W/Doppler(CW/PW/Color)2021-03-31 17:56:10Ejection FractionSLEH ECHO HEARTLAB MKCKESSON [facility] CenterPO[facility] [id number] 15:39:00 Test Item Value Reference Range Interpretation Comments POC-GLUCOSE METER 81 mg/dL 70-110 : Notified RN/MD: TESTED (BEAKER) (test code AT [facility] [address] = 1538) [place], [address]: Sewer Bricklayer/Techni tressa ID = [id number] for Jose J (contract)Shola [id number] 13:30:00 Test Item Value Reference Range Interpretation Comments MAGNESIUM (BEAKER) (test code = 1.4 mg/dL 1.6-2.6 L 627) Sewer Bricklayer ID - ERWIN [id number] 13:30:00 Test Item Value Reference Range Interpretation Comments PHOSPHORUS (BEAKER) (test code = 2.3 mg/dL 2.3-4.7 604) Sewer Bricklayer ID - ERWIN FHEPATIC FUNCTION [id number] 13:30:00 Test Item Value Reference Range Interpretation [...] (test code = 19 U/L 6-55 347) Sewer Bricklayer ID Doron HOOD FCOMPREHENSIVE METABOLIC [id number] 13:30:00 Test Item Value Reference Range Interpretation [...] S NOT APPLICABLE FOR DIALYSIS PATIEN TS. Sewer Bricklayer ORLY Doron HOOD FVancomycin level, [id number] 13:28:00 Test Item Value Reference Range Interpretation Comments Vancomycin Rm (test 43.6 ug/mL code = 27012-2) STACY (test code = Reference Range: No STACY) NormalsOperator ID Doron Calloway [facility] HospitalVanmountainstar healthcareycin level, [id number] 13:28:00 Test Item Value Reference Range Interpretation Comments Vancomycin Rm (test 43.6 ug/mL code = 41938-4) STACY (test code = Reference Range: No STACY) NormalsOperator ID Doron Calloway [facility] HospitalVANMOSAIC LIFE CARE AT ST. JOSEPHYCIN LEVEL, [id number] 13:28:00 Test Item Value Reference Range Interpretation Comments VANCOMYCIN RANDOM (BEAKER) (test 43.6 ug/mL code = 523) Reference Range: No NormalsOperator ORLY HOOD FCALCIUM, [id number] 13:24:00 Test Item Value Reference Range Interpretation Comments CALCIUM IONIZED (BEAKER) (test 1.09 mmol/L 1.12-1.27 L code = 698) PH, BLOOD (BEAKER) (test code = 7.38 1810) CBC W/PLT COUNT & AUTO [id number] 13:14:00 Test Item Value Reference Range Interpretation [...] PERCENT (BEAKER) (test code = 2801) POCT-GLUCOSE [id number] 12:20:00 Test Item Value Reference Range Interpretation Comments POC-GLUCOSE METER 81 mg/dL 70-110 : Notified RN/MD: TESTED (BEAKER) (test code AT [place] [address] [address] = 1538) [facility], [facility] 30: Sewer Bricklayer/Techni tressa ID = [id number] for Lux (contract), Shola ny POCT-GLUCOSE [id number] 10:10:00 Test Item Value Reference Range Interpretation Comments POC-GLUCOSE METER 90 mg/dL 70-110 : Notified RN/MD: [facility] (test code AT [place] [address] [address] = 1538) [facility] 30: Sewer Bricklayer/Techni tressa ID = [id number] for Lux (contract), Shola ny RAD, ABDOMEN/KUB, 1 VIEW [id number] 01:44:00For bedside G-tube study. Call radiology for KUB when gastroview, 60 cc syringe, and water for flushing are at the bedside and nursing is ready/Reason for exam:->G-tube studyShould this be performedat the bedside?->Yes [facility] 1945 Sex: MFINAL REPORT [...] on03/31/2021 01:44 AMXR abdomen / KUB 1 [id number] 01:44:00Interface, External Ris In - 03/31/2021 1:47 AM CDTFINAL REPORT EXAM/TECHNIQUE: Supine radiograph of the abdomen. INDICATION: Abdominal radiography from 03/30/2021. COMPARISON: Abdominal radiography from 03/30/2021. FINDINGS: Gastrostomy tube is present there is contrast in the stomach and in the small bowel. No acute osseous process. Impression: Gastrostomy tube is in the stomach in the small bowel. Signed: Galileo Cuelloort Verified Date/Time: 03/31/2021 01:44:07 [facility]OLIC [id number] 00:40:00 Test Item Value Reference Range Interpretation [...] S NOT APPLICABLE FOR DIALYSIS PATIEN TS. Sewer Bricklayer ID - DBPOCT-GLUCOSE [id number] 21:42:00 Test Item Value Reference Range Interpretation Comments POC-GLUCOSE METER 117 mg/dL 70-110 H : TESTED A T [facility] 6720 (BEAKER) (test code [facility], = 1538) [address]: Sewer Bricklayer/Techni tressa ID = [id number] for Kelsie anthony (agency)Marlo POCT-GLUCOSE [id number] 17:39:00 Test Item Value Reference Range Interpretation Comments POC-GLUCOSE METER 140 mg/dL 70-110 H : TESTED A T [facility] 6720 (BEAKER) (test code = [facility]ENTERANALISA Payne [facility], 1538) [address]: Sewer Bricklayer/Techni tressa ID = [id number] for JOSE JOHNSON RAD, ABDOMEN/KUB, 1 VIEW [id number] 17:36:00Reason for exam:->peg placementShould this be performed at the bedside?->Yes [facility] : 1945 Sex: MFINAL REPORT EXAM: KUB [...] MDReport Verified Date/Time: 03/30/2021 17:36:33 Reading Location: [address] Consult Reading Room C METABOLIC [id number] 17:12:00 Test Item Value Reference Range Interpretation [...] S NOT APPLICABLE FOR DIALYSIS PATIEN TS. Sewer Bricklayer ID - DBPOCT-GLUCOSE [id number] 13:04:00 Test Item Value Reference Range Interpretation Comments POC-GLUCOSE METER 101 mg/dL 70-110 : TESTED Florinda Martinez [facility] 6720 (RENEA) (test code = [place], 1538) [address]: Sewer Bricklayer/Techni tressa ID = [id number] for AG UILARJOSE U/S, RENAL, [id number] 11:52:00Reason for exam:->akiShould this be performed at the bedside?->Yes [facility] : 1945 Sex: MFINAL REPORT [...] MDReport Verified Date/Time: 03/30/2021 11:52:42 Reading Location: [address] Reading Room US renal [id number] 11:52:00Interface, External Ris In - 03/30/2021 11:54 [...] MDReport Verified Date/Time: 03/30/2021 11:52:42 Reading Location: [address] Consult Reading Room [facility]BAS[facility] [id number] 10:57:00 Test Item Value Reference Range Interpretation [...] S NOT APPLICABLE FOR DIALYSIS PATIEN TS. Sewer Bricklayer ID - AAHAMIDBASIC METABOLIC [id number] 05:59:00 Test Item Value Reference Range Interpretation [...] S NOT APPLICABLE FOR DIALYSIS PATIEN TS. Sewer Bricklayer ID - DBCREATINE KINASE (CK)2021-03-30 05:40:00 Test Item Value Reference Range Interpretation Comments CREATINE KINASE TOTAL (BEAKER) (test 43 U/L 29-200 code = 380) Sewer Bricklayer ID - [id number] 05:33:00 Test Item Value Reference Range Interpretation Comments MAGNESIUM (BEAKER) (test code = 1.4 mg/dL 1.6-2.6 L 627) Sewer Bricklayer ID - [id number] 05:33:00 Test Item Value Reference Range Interpretation Comments PHOSPHORUS (BEAKER) (test code = 1.6 mg/dL 2.3-4.7 L 604) Sewer Bricklayer ID - DBHEPATIC FUNCTION [id number] 05:33:00 Test Item Value Reference Range Interpretation [...] (test code = 8 U/L 6-55 347) Sewer Bricklayer ID - DBCREATINE KINASE (CK)2021-03-30 05:33:00 Test Item Value Reference Range Interpretation Comments CREATINE KINASE TOTAL (BEAKER) (test 42 U/L 29-200 code = 380) Sewer Bricklayer ID - DBC-REACTIVE [id number] 05:33:00 Test Item Value Reference Range Interpretation Comments C-REACTIVE PROTEIN (BEAKER) (test 10.11 mg/dL 0.00-0.50 H code = 676) Sewer Bricklayer ID - DBCALCIUM, [id number] 05:19:00 Test Item Value Reference Range Interpretation Comments CALCIUM IONIZED (BEAKER) (test 1.08 mmol/L 1.12-1.27 L code = 698) PH, BLOOD (BEAKER) (test code = 7.38 1810) POCT-GLUCOSE [id number] 05:14:00 Test Item Value Reference Range Interpretation Comments POC-GLUCOSE METER 127 mg/dL 70-110 H : TESTED A T [facility] 6720 (BEAKER) (test code [facility], = 1538) [address]: Sewer Bricklayer/Techni tressa ID = [id number] for Kelsie anthony (agency)Marlo CBC W/PLT COUNT & AUTO [id number] 05:03:00 Test Item Value Reference Range Interpretation [...] PERCENT (BEAKER) (test code = 2801) POCT-GLUCOSE [id number] 23:51:00 Test Item Value Reference Range Interpretation Comments POC-GLUCOSE METER 135 mg/dL 70-110 H : TESTED A T [facility] 6720 (BEAKER) (test code [facility], = 1538) [address]: Sewer Bricklayer/Techni terssa ID = [id number] for Martinuc icaut (agency), Marlo hamm Creatinine, random [id number] 22:56:00 Test Item Value Reference Range Interpretation Comments Creatinine, Ur 88.5 mg/dL (test code = 2161-8) STACY (test code = Reference Range: No STACY) NormalsOperator ID - DB [facility] [place] [id number] 22:56:00 Test Item Value Reference Range Interpretation Comments Sodium Urine (test 80 meq/L code = 2955-3) STACY (test code = Reference Range: No STAYC) NormalsOperator ID - DB [facility] HospitalCreatinine, random [id number] 22:56:00 Test Item Value Reference Range Interpretation Comments Creatinine, Ur 88.5 mg/dL (test code = 2161-8) STACY (test code = Reference Range: No STACY) NormalsOperator ID - DB [facility] [place], random [id number] 22:56:00 Test Item Value Reference Range Interpretation Comments Sodium Urine (test 80 meq/L code = 2955-3) STACY (test code = Reference Range: No STACY) NormalsOperator ID - DB [facility] HospitalCREATININE, RANDOM [id number] 22:56:00 Test Item Value Reference Range Interpretation Comments CREATININE URINE (BEAKER) (test 88.5 mg/dL code = 375) Reference Range: No NormalsOperator ID - DBSODIUM, RANDOM [id number] 22:56:00 Test Item Value Reference Range Interpretation Comments SODIUM URINE (BEAKER) (test code = 80 meq/L 243) Reference Range: No NormalsOperator ID - DBOsmolality, [id number] 22:15:00 Test Item Value Reference Range Interpretation Comments Osmolality Serum (test 344 See_Comment H [Aut omated message] code = 2692-2) The system [employer] generated this result transmitted ref erence range: 275 - 29 5 mOsm/kg. The reference range was not used to int erpret this result as normal/abnormal . Lab Interpretation (test Abnormal code = 21458-7) [facility] HospitalOsmolality, [id number] 22:15:00 Test Item Value Reference Range Interpretation Comments Osmolality Serum (test 344 See_Comment H [Aut omated message] code = 2692-2) The system [employer] generated this result transmitted ref erence range: 275 - 29 5 mOsm/kg. The reference range was not used to int erpret this result as normal/abnormal . Lab Interpretation (test Abnormal code = 51264-0) [facility] HospitalOSMOLALITY, [id number] 22:15:00 Test Item Value Reference Range Interpretation Comments OSMOLALITY, SERUM (BEAKER) (test 344 mOsm/kg 275-295 H code = 615) BASIC METABOLIC [id number] 22:15:00 Test Item Value Reference Range Interpretation [...] S NOT APPLICABLE FOR DIALYSIS PATIEN TS. Sewer Bricklayer ID - DBOsmolality, [id number] 22:10:00 Test Item Value Reference Range Interpretation Comments Osmolality, Ur (test code 769 See_Comment [ Automated message] = 1835-5) The system [employer] generated this result transmitted ref erence range: 50-1,200 mOsm/kg mOsm/kg . The reference range was not used to int erpret this result as normal/abnormal . Lab Interpretation (test Normal code = 05492-6) [facility] HospitalOsmolality, [id number] 22:10:00 Test Item Value Reference Range Interpretation Comments Osmolality, Ur (test code 769 See_Comment [ Automated message] = 2695-5) The system [employer] h generated this result transmitted ref erence range: 50-1,200 mOsm/kg mOsm/kg . The reference range was not used to int erpret this result as normal/abnormal . Lab Interpretation (test Normal code = 61289-9) [facility] HospitalOSMOLALITY, [id number] 22:10:00 Test Item Value Reference Range Interpretation Comments OSMOLALITY URINE 769 mOsm/kg See_Comment [Automated message] (BEAKER) (test code = The sy stem which 614) generated this result transmitted ref erence range: 50-1,200 mOsm/kg. The reference range was not used to int erpret this result as normal/abnormal . Protein, random [id number] 18:44:00 Test Item Value Reference Range Interpretation Comments Protein, Urine (test code = <68 0-14 H 2888-6) 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 - DB Lab Interpretation (test Abnormal code = 41639-2) [facility] HospitalProtein, random [id number] 18:44:00 Test Item Value Reference Range Interpretation Comments Protein, Urine (test code = <68 0-14 H 2888-6) 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 - DB Lab Interpretation (test Abnormal code = 88210-2) [facility] HospitalPROTEIN, RANDOM [id number] 18:44:00 Test Item Value Reference Range Interpretation Comments PROTEIN, URINE (BEAKER) (test code = < mg/dL 0-14 H 1569) Sewer Bricklayer ID - DBCREATININE, RANDOM [id number] 18:22:00 Test Item Value Reference Range Interpretation Comments CREATININE URINE (BEAKER) (test 105.0 mg/dL code = 375) Reference Range: No NormalsOperator ID - DBSODIUM, RANDOM [id number] 18:22:00 Test Item Value Reference Range Interpretation Comments SODIUM URINE (BEAKER) (test code = 47 meq/L 243) Reference Range: No NormalsOperator ID - DBOSMOLALITY, [id number] 18:03:00 Test Item Value Reference Range Interpretation Comments OSMOLALITY URINE 662 mOsm/kg See_Comment [Automated message] (BEAKER) (test code = The sy stem which 614) generated this result transmitted ref erence range: 50-1,200 mOsm/kg. The reference range was not used to int erpret this result as normal/abnormal . POCT-GLUCOSE [id number] 17:36:00 Test Item Value Reference Range Interpretation Comments POC-GLUCOSE METER 146 mg/dL 70-110 H : TESTED A T [facility] 6720 (BEAKER) (test code = [place], [address]) [address]: Sewer Bricklayer/Techni tressa ID = [id number] for Analisa monroy (contract), Yuli xis BASIC METABOLIC [id number] 17:08:00 Test Item Value Reference Range Interpretation [...] S NOT APPLICABLE FOR DIALYSIS PATIEN TS. Sewer Bricklayer ID - AAHAMIDValproic acid level, [id number] 17:07:00 Test Item Value Reference Range Interpretation Comments Valproic Acid, Total <2 50-100 L (test code = 4086-5) STACY (test code = STACY) Therapeutic range for some clinical conditions may be >100 ug/mLOperator ID - AAHAMID Lab Interpretation (test Abnormal code = 07020-9) [facility] HospitalPhenytoin level, [id number] 17:07:00 Test Item Value Reference Range Interpretation Comments Phenytoin (test code = <0.5 10-20 L 3968-5) 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 - AAHAMID Lab Interpretation (test Abnormal code = 37268-9) [facility] HospitalValproic acid level, [id number] 17:07:00 Test Item Value Reference Range Interpretation Comments Valproic Acid, Total <2 50-100 L (test code = 4086-5) STACY (test code = STACY) Therapeutic range for some clinical conditions may be >100 ug/mLOperator ID - AAHAMID Lab Interpretation (test Abnormal code = 45725-7) [facility] HospitalPhenytoin level, [id number] 17:07:00 Test Item Value Reference Range Interpretation Comments Phenytoin (test code = <0.5 10.0-20.0 L 3968-5) 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 - AAHAMID Lab Interpretation (test Abnormal code = 26510-0) [facility] HospitalVALPROIC ACID LEVEL, [id number] 17:07:00 Test Item Value Reference Range Interpretation Comments VALPROIC ACID TOTAL (BEAKER) (test < ug/mL 50-100 L code = 924) Therapeutic range for some clinical conditions may be >100 ug/mLOperator ID - AAHAMIDPHENYTOIN LEVEL, [id number] 17:07:00 Test Item Value Reference Range Interpretation Comments PHENYTOIN (DILANTIN) (BEAKER) (test < ug/mL 10.0-20.0 L code = 605) Sewer Bricklayer ID - AAHAMIDBASIC METABOLIC [id number] 13:35:00 Test Item Value Reference Range Interpretation [...] S NOT APPLICABLE FOR DIALYSIS PATIEN TS. Sewer Bricklayer ID - AAHAMIDPOCT-GLUCOSE [id number] 12:55:00 Test Item Value Reference Range Interpretation Comments POC-GLUCOSE METER 113 mg/dL 70-110 H : [facility] [place]ER[place] (test code = [place], 1538) [address]: Sewer Bricklayer/Techni tressa ID = [id number] for Analisa monroy (contract), Yuli xis BASIC METABOLIC [id number] 10:00:00 Test Item Value Reference Range Interpretation [...] S NOT APPLICABLE FOR DIALYSIS PATIEN TS. Sewer Bricklayer ID - AAHAMIDB-type Natriuretic Factor (BNP)2021-03-29 09:49:00 Test Item Value Reference Range Interpretation Comments BNP (test code = 37802-1) 315 pg/mL 0-100 H 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 - AAHAMID Lab Interpretation (test Abnormal code = 33359-1) [facility] ([facility]NP)2021-03-29 09:49:00 Test Item Value Reference Range Interpretation Comments BNP (test code = 38797-4) 315 pg/mL 0-100 H 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 - AAHAMID Lab Interpretation (test Abnormal code = 16886-4) [facility] (BNP)2021-03-29 09:49:00 Test Item Value Reference Range Interpretation Comments B-TYPE NATRIURETIC PEPTIDE (BEAKER) 315 pg/mL 0-100 H (test code = 700) Sewer Bricklayer ID - AASTEPHANYIDVANCOMYCIN LEVEL, [id number] 09:45:00 Test Item Value Reference Range Interpretation Comments VANCOMYCIN RANDOM (BEAKER) (test 6.7 ug/mL code = 523) Reference Range: No NormalsOperator ID - AASTEPHANYIDManual [id number] 07:17:00 Test Item Value Reference Range Interpretation Comments % Neutros (test code = 85 % 2816) % Lymphs (test code = 2 % 2817) % Monos (test code = 1 % 2818) % Bands (test code = 12 % [...] = 3438) 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 - Daisy Franklin comments: Slide comments: Lab Interpretation Abnormal (test code = 08398-3) [facility] [id number] 07:17:00 Test Item Value Reference Range Interpretation Comments % Neutros (test code = 85 % 281) % Lymphs (test code = 2 % 2817) % Monos (test code = 1 % 2818) % Bands (test code = 12 % 0-10 H 2826) # Neutros (test code = 7.48 K/ul 1.78-5.38 H 2830) # Lymphs (test code = 0.18 K/ul 1.32-3.57 L 2831) # Monos (test code = 0.09 K/uL 0.30-0.82 L 2832) # Bands (test code = 1.06 K/uL 0.00-0.80 H 2840) Total Counted (test 100 code = 1351) WBC Morphology (test Normal code = 487) Platelet Morphology Normal (test code = 486) Polychromasia (test 1+ few code = 478) Anisocytosis (test code 1+ few = 961) Microcytes (test code = 1+ few 965) Artifact (test code = Present 3432) Platelet Conc (test Adequate code = 3438) 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 - Daisy Rigoberto comments: Slide comments: Lab Interpretation Abnormal (test code = 15317-2) [facility] W/PLT COUNT & AUTO [id number] 07:17:00 Test Item Value Reference Range Interpretation [...] CONCENTRATION Adequate (CELLAVISION)(BEAKER) (test code = 3438) Sewer Bricklayer ID - Daisy Franklin comments: Slide comments:TSH/Free T4 If [id number] 06:43:00 Test Item Value Reference Range Interpretation Comments TSH (test code = 1.408 See_Comment [Automated 10269-5) message] The system which generated this result transmit saulo reference range : 0.350 - 4.940 uIU/mL. The reference range was not used to interpret this result as normal/abnormal . 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 - AME M Lab Interpretation Normal (test code = 10451-3) [facility] T4 If [id number] 06:43:00 Test Item Value Reference Range Interpretation Comments TSH (test code = 1.408 See_Comment [Automated 08974-8) message] The system which generated this result transmit saulo reference range : 0.350 - 4.940 uIU/mL. The reference range was not used to interpret this result as normal/abnormal . 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 - AME M Lab Interpretation Normal (test code = 54207-2) [facility] T4 IF [id number] 06:43:00 Test Item Value Reference Range Interpretation Comments THYROID STIMULATING HORMONE 1.408 uIU/mL 0.350-4.940 (BEAKER) (test code = 772) Sewer Bricklayer ID - AME MBASIC METABOLIC [id number] 06:03:00 Test Item Value Reference Range Interpretation [...] S NOT APPLICABLE FOR DIALYSIS PATIEN TS. Sewer Bricklayer ID - DBURINALYSIS W/ REFLEX URINE [id number] 03:52:00 Test Item Value Reference Range Interpretation [...] = 1521) SOURCE(BEAKER) (test code = 2795) Sewer Bricklayer ID - [auto]Sewer Bricklayer ID - techLactic acid, [id number] 23:23:00 Test Item Value Reference Range Interpretation Comments Lactate, Venous (test code = 1.97 mmol/L 0.5-2.2 2872) 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 - DB Lab Interpretation (test Normal code = 18686-2) [facility] HospitalL[facility] acid, [id number] 23:23:00 Test Item Value Reference Range Interpretation Comments Lactate, Venous (test code = 1.97 mmol/L 0.50-2.20 2872) 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 - DB Lab Interpretation (test Normal code = 78160-3) [facility] HospitalLACTIC ACID, [id number] 23:23:00 Test Item Value Reference Range Interpretation Comments LACTATE BLOOD VENOUS (2) (BEAKER) 1.97 mmol/L 0.50-2.20 (test code = 2872) Sewer Bricklayer ID - [id number] 23:21:00 Test Item Value Reference Range Interpretation [...] exclusion of thrombosis is within 95-100% range. [id number] 23:19:00 Test Item Value Reference Interpretation Comments Range Protime (test code = 17.6 See_Comment H [Autom ated 7262-2) message] The system which generated this result transmitted reference range : 11.9 - 14.2 seconds. The reference range was not used to interpret this result as normal/abnormal . INR (test code = 1.47 See_Comment [Automated 2941-6) message] The system which generated this result transmitted reference range : <=5.90. The reference range was not used to interpret this result as normal/abnormal . PTT (test code = 35.1 See_Comment [Automated 28996-2) message] The system which generated this result [...] valves. Lab Interpretation Abnormal (test code = 13396-9) [facility] HospitalPT/[id number] 23:19:00 Test Item Value Reference Interpretation Comments Range Protime (test code = 17.6 See_Comment H [Autom ated 5902-2) message] The system which generated this result transmitted reference range : 11.9 - 14.2 seconds. The reference range was not used to interpret this result as normal/abnormal . INR (test code = 1.47 See_Comment [Automated 1221-6) message] The system which generated this result transmitted reference range : <=5.90. The reference range was not used to interpret this result as normal/abnormal . PTT (test code = 35.1 See_Comment [Automated 95651-8) message] The system which generated this result [...] valves. Lab Interpretation Abnormal (test code = 51535-4) [facility] HospitalPT/[id number] 23:19:00 Test Item Value Reference Range Interpretation [...] for patients with mechanical heart valves.COMPREHENSIVE METABOLIC [id number] 23:14:00 Test Item Value Reference Range Interpretation [...] S NOT APPLICABLE FOR DIALYSIS PATIEN TS. Sewer Bricklayer ID - DBBlood gas, [id number] 23:12:00 Test Item Value Reference Range Interpretation Comments pH, Arterial (test code 7.52 7.35-7.45 H = 2744-1) pCO2, Arterial (test 28 See_Comment L [Autom ated message] code = 2019-8) The system [facility] generated this result transmit saulo reference range : 35 - 45 mm Hg. The reference range was not used to interpret this result as normal/abnormal . pO2, Arterial (test 186 See_Comment H [Automa saulo message] code = 2703-7) The system [facility] generated this result transmit saulo reference range [...] 44 Lab Interpretation Abnormal (test code = 29752-6) [facility] gas, [id number] 23:12:00 Test Item Value Reference Range Interpretation Comments pH, Arterial (test code 7.52 7.35-7.45 H = 2744-1) pCO2, Arterial (test 28 See_Comment L [Autom ated message] code = 2019-) The system [facility] generated this result transmit saulo reference range : 35 - 45 mm Hg. The reference range was not used to interpret this result as normal/abnormal . pO2, Arterial (test 186 See_Comment H [Automa saulo message] code = 2703-7) The system [facility] generated this result transmit saulo reference range : 80 - 90 mm Hg. The reference range was not used to interpret this result as normal/abnormal . O2 Sat, Arterial (test 99.4 % 96.0-97.0 H code = 2708-6) HCO3, Arterial (test 22 mmol/L 21-29 code = 1960-4) Base Excess, Arterial 0.1 mmol/L -2.0-3.0 (test code = 1925-7) Patient Temperature 36.5 (test code = 8310-5) FIO2 (test code = 1819) 44 Lab Interpretation Abnormal (test code = 06878-2) [facility] HospitalBL[facility]OD GAS, [id number] 23:12:00 Test Item Value Reference Range Interpretation [...] (BEAKER) (test code = 1819) 44.0 CALCIUM, [id number] 23:12:00 Test Item Value Reference Range Interpretation Comments CALCIUM IONIZED (BEAKER) (test 1.08 mmol/L 1.12-1.27 L code = 698) PH, BLOOD (BEAKER) (test code = 7.51 1810) [id number] 23:10:00 Test Item Value Reference Range Interpretation Comments MAGNESIUM (BEAKER) 1.8 mg/dL 1.6-2.6 Specimen slightly (test code = 627) hemolyzed Sewer Bricklayer ID - [id number] 23:10:00 Test Item Value Reference Range Interpretation Comments PHOSPHORUS (BEAKER) 2.8 mg/dL 2.3-4.7 Specimen slightly (test code = 604) hemolyzed Sewer Bricklayer ID - DBCREATINE KINASE (CK)2021-03-28 23:10:00 Test Item Value Reference Range Interpretation Comments CREATINE KINASE TOTAL (BEAKER) (test 23 U/L 29-200 L code = 380) Sewer Bricklayer ID - DBC-REACTIVE [id number] 23:10:00 Test Item Value Reference Range Interpretation Comments C-REACTIVE PROTEIN (BEAKER) (test 14.35 mg/dL 0.00-0.50 H code = 676) Sewer Bricklayer ID - DBCBC (Hemogram only)2021-03-28 23:08:00 Test Item Value Reference Range Interpretation Comments WBC (test code = 6690-2) 11.6 See_Comment H [A utomated message] The system [employer] generated this result transmitted ref erence range: 3.5 - 10 .5 K/L. The refe rence range was not u sed to interpret this result as normal/abnor mal. RBC (test code = 789-8) 3.69 See_Comment L [Au tomated message] The system [employer] generated this result transmitted ref erence range: 4.63 - 6 .08 M/L. The refe rence range was not u sed to interpret this result as normal/abnor mal. MCHC (test code = 786-4) 29.6 See_Comment L [A utomated message] The system [employer] generated this result transmitted ref erence range: [...] See_Comment [Aut omated message] 777-3) The system [employer] generated this result transmitted ref erence range: 150 - 45 0 K/CU MM. The referen ce range was not u sed to interpret this result as normal/abnor mal. MPV (test code = 10.5 fL 9.4-12.4 44763-8) nRBC (test code = 413) 0 See_Comment [Aut omated message] The system [employer] generated this result transmitted ref erence range: 0 - 0 /1 00 WBC. The refere nce range was not u sed to interpret this result as normal/abnor mal. Lab Interpretation (test Abnormal code = 28996-4) [facility] (Hemogram only)2021-03-28 23:08:00 Test Item Value Reference Range Interpretation Comments WBC (test code = 6690-2) 11.6 See_Comment H [A utomated message] The system [employer] generated this result transmitted ref erence range: 3.5 - 10 .5 K/L. The refe rence range was not u sed to interpret this result as normal/abnor mal. RBC (test code = 789-8) 3.69 See_Comment L [Au tomated message] The system [employer] generated this result transmitted ref erence range: 4.63 - 6 .08 M/L. The refe rence range was not u sed to interpret this result as normal/abnor mal. MCHC (test code = 786-4) 29.6 See_Comment L [A utomated message] The system [employer] generated this result transmitted ref erence range: 32.3 - 3 6.5 GM/DL. The refe rence range was not u sed to interpret this result as normal/abnor mal. Hematocrit (test code = 40.6 % 40.1-51.0 4544-3) MCV (test code = 787-2) 110.0 fL 79.0-92.2 H MCH (test code = 785-6) 32.5 pg 25.7-32.2 H RDW (test code = 788-0) 16.7 % 11.6-14.4 H Platelets (test code = 331 See_Comment [Aut omated message] 777-3) The system [employer] generated this result transmitted ref erence range: 150 - 45 0 K/CU MM. The referen ce range was not u sed to interpret this result as normal/abnor mal. MPV (test code = 10.5 fL 9.4-12.4 60030-6) nRBC (test code = 413) 0 See_Comment [Aut omated message] The system [employer] generated this result transmitted ref erence range: 0 - 0 /1 00 WBC. The refere nce range was not u sed to interpret this result as normal/abnor mal. Lab Interpretation (test Abnormal code = 37001-8) [facility] (HEMOGRAM ONLY)2021-03-28 23:08:00 Test Item Value Reference [...] code = 413) RAD, ABDOMEN/KUB, 1 VIEW [id number] 22:32:00Reason for exam:->PEG tubeReason for exam:->Distended abdomen [facility] 1945 Sex: MFINAL REPORT TECHNIQUE: One view of the abdomen. INDICATION: 75-year-old man with gastrostomy tube and distended abdomen. COMPARISON: None. IMPRESSION:Gastrostomy tube terminates over the expected region of the distal stomach. Intact laparoscopic gastric band in place. Nonobstructive bowel gas pattern. No acute osseous abnormality. Soft tissues are unremarkable. Signed: Lacey Barrett MDReport Verified Date/Time: 03/28/2021 22:32:51 Reading Location: [facility] [id number] ConsultReading Room RAD, CHEST, 1 VIEW, NON [id number] 22:25:00Reason for exam:->COVID PNA [facility] : 1945 Sex: MFINAL REPORT [...] the right upper quadrant. Signed: Sasha Wong MDReport Verified Date/Time: 03/28/2021 22:25:25 XR chest 1 view portable / [id number] 22:25:00Interface, External Ris In - 03/28/2021 10:27 [...] the right upper quadrant. Signed: Sasha Wong MDReport Verified Date/Time: 03/28/2021 22:25:25 Electronicallysigned by: SASHA WONG MD on 03/28/2021 10:25 [facility]:13[facility]00 Test Item Value Reference Range Interpretation Comments AMMONIA (test code = AMM) 93 umol/L 11-32 H
[2021-04-06 11:00] LABS: Potassium 3.1 mmol/L (3.5-5.1)
[2021-04-06 11:03] LABS: Absolute Lymphocytes (CBC) 0.8 K/uL (0.7-4.9); Basophils % 0.1 % (0-1.3); Hematocrit 41.5 % (39.6-49.0); Lymphocytes % 5.7 % (15.3-44.8); MPV 9.5 fL (7.6-11.3); RBC Red Blood Cell Count 4.12 M/uL (4.33-5.43)
--- NOTE | 2021-04-06 11:56 | RAD REPORT ---
EXAM DESCRIPTION: RAD - ENTEROSTOMY TUBE CHECK W/CONTR - 04/06/2021 11:34 am CLINICAL HISTORY: replaced feeding tube Abdominal pain COMPARISON: Abdomen Pelvis W Contrast dated 04/04/2021 FINDINGS: Two radiographs are submitted. No fluoroscopy performed. Pre and post contrast injection and existing G-tube was performed. Post injection contrast is seen in the stomach without evidence of extravasation. This would indicate that the G-tube tip is in the sto mach.
[2021-04-06 12:00] LABS: Blood Morphology Comment NOT SEEN (NOT SEEN); Platelet Estimate ADEQ; White Blood Cell Scan OK (OK)
--- NOTE | 2021-04-06 12:04 | RAD REPORT ---
EXAM DESCRIPTION: CTAbdomen Pelvis W Contrast - 04/06/2021 11:42 am CLINICAL HISTORY: Abdominal pain. tube leaking, eval for obstruction, contrast through tube COMPARISON: Abdomen Pelvis W Contrast dated 04/04/2021; Abdomen Pelvis W Contrast dated 01/06/2017 ; CT ABD PELVIS W CONTRAST dated 09/21/2014 TECHNIQUE: Biphasic CT imaging of the abdomen and pelvis was performed with 100 ml non-ionic IV cont rast. All CT scans are performed using dose optimization technique as appropriate and may include automated exposure control or mA/KV adjustment according to patient size. FINDINGS: Small bilateral pleural effusions with atelectasis or infiltrate in both lung bases. Limited noncontrast assessment of liver, spleen, pancreas, adrenal glands kidneys show no acute proce ss. Tiny renal calculi likely present bilaterally without hydronephrosis. Cholecystectomy clips. Torie marcelino banding is noted. Gastrostomy tube is within the stomach. Contrast is seen along the course of the tube in the subcutan eous tissues. . The appendix is not identified as a discrete structure, however, no secondary findin gs of appendicitis are identified. No evidence of significant lymphadenopathy. No suspicious bony findings. IMPRESSION: Gastrostomy tube is in place with contrast within the stomach. There is mild contrast se en along the course of the tubing as it traverses the anterior subcutaneous abdominal fat.
--- NOTE | 2021-04-06 12:30 | ER ---
[facility]'s Notes [facility] Name: Zbigniew Mitchell Age: 75 yrs Sex: Male : 1945 Arrival Date: 04/06/2021 Time: 09:58 Bed 5 Private MD: Diagnosis: Gastrostomy malfunction;Cellulitis of abdominal wall-Chemical Presentation: 04/06 10:00 Chief complaint: EMS states: Toned out for "G-Tube leaking bowel contents.". jl7 Coronavirus screen: Vaccine status: Patient reports receiving the 2nd dose of the covid vaccine. At this time, the client does not indicate any symptoms associated with coronavirus-19. Ebola Screen: No symptoms or risks identified at this time. Initial Sepsis Screen: Does the patient meet any 2 criteria? No. Patient's initial sepsis screen is negative. Does the patient have a suspected source of infection? No. Patient's initial sepsis screen is negative. Risk Assessment: Do you want to hurt yourself or someone else? Patient reports no desire to harm self or others. Onset of symptoms is unknown. Care prior to arrival: None. 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 - Social history:: Smoking status: Patient denies any tobacco usage or history of. - Family history:: not pertinent. - Hospitalizations: : No recent hospitalization is reported. Screenin:00 Abuse screen: unable to obtain. Nutritional screening: No deficits noted. Tuberculosis jl7 screening: No symptoms or risk factors identified. Fall Risk IV access (20 points). Total Aleman Fall Scale indicates No Risk (0-24 pts). Assessment: 10:00 General: Appears in no apparent distress. uncomfortable, Behavior is anxious, restless. jl7 Pain: Complains of pain in abdomen Pain currently is 8 out of 10 on a pain scale. Unable to use pain scale. Does not appear to understand pain scale. Patient appears to be guarding. Neuro: Level of Consciousness is awake, alert. Cardiovascular: Patient's skin is warm and dry. Respiratory: Airway is patent Respiratory effort is even, unlabored, Respiratory pattern is regular, symmetrical. EENT: Oral mucosa is dry. Moderate amount of yellow buildup on top and bottom teeth noted.. Derm: Skin is pink, warm \\T\\ dry. Wound noted abdomen Wound is excoriated skin noted to abdomen around PEG tube insertion site and down toward left lateral abdomen. 10:40 Reassessment: 16 Gambian PEG tube replaced with 20 Gambian [address] tube [address] Dr[address] Oconnor. jl7 10:50 Reassessment: Oral contrast administered through G-tube, CT notified. jl7 11:59 Reassessment: Cleaned patient of bowel incontinence. Linens changed. Patient tolerated ss well. 12:35 Reassessment: notified YANA Mckenzie at [facility] that pt is [facility] for [facility]. [facility] will arrange transportation. Informed her that per our ER provider Dr. Oconnor that his residual will need to be decreased so that less residual is there forcing the tube out. 13:25 Reassessment: no answer at [facility] ph#[phone]. Notified charge nurse howard Jackman RN of no answer at facility and pts transportation has not arrived yet. 13:27 Reassessment: Patient appears in no apparent distress at this time. Patient and/or tw2 family updated on plan of care and expected duration. Pain level reassessed. 14:27 Reassessment: Patient appears in no apparent distress at this time. Patient and/or tw2 family updated on plan of care and expected duration. Pain level reassessed. Vital Signs: 10:00 BP 148 / 85; Pulse 109; Resp 18; Pulse Ox 93% ; jl7 13:51 BP 86 / 63; Pulse 76; Resp 17; Temp 97.9(TE); Pulse Ox 100% on R/A; tw2 ED Course: 09:58 Patient arrived in ED. rn 09:58 Rio Oconnor MD is Attending Physician. rn 10:00 Mario Hamlin RN is Primary Nurse. 7 10:20 Initial lab(s) drawn, by ED staff, sent to lab. Inserted saline lock: 22 gauge in left jl7 antecubital area, using aseptic technique. Blood collected. 10:24 Triage completed. jl7 10:24 Arm band placed on right wrist. jl7 10:51 Patient has correct armband on for positive identification. Bed in low position. Call jl7 light in reach. Side rails up X2. Pulse ox on. NIBP on. Warm blanket given. 11:34 PEG Tube Check w/contrast In Process Unspecified. EDMS 11:35 Mario Hamlin, RN is Primary Nurse. jl7 11:42 CT Abd/Pelvis - PO Contrast Only In Process Unspecified. EDMS 12:19 Basic Metabolic Panel Sent. ch5 12:19 CBC with Diff Sent. ch5 14:27 No provider procedures requiring assistance completed. IV discontinued, intact, tw2 bleeding controlled, No redness/swelling at site. Pressure dressing applied. Administered Medications: 12:29 Drug: NS 0.9% 500 ml Route: IV; Rate: bolus; Site: left upper arm; ch5 14:08 Follow up: Response: No adverse reaction; IV Status: Completed infusion; IV Intake: tw2 500ml Intake: 14:08 IV: 500ml; Total: 500ml. tw2 Outcome: 12:29 Discharge ordered by . rn 14:[facility] tw2 14:27 Condition: stable 14:27 Instructed on the need for transfer. 14:28 Patient left the ED. tw2 Signatures: Dispatcher [employer] EDMS Rio Oconnor MD MD rn Smirch, Shelby, RN RN ss Wise, Tara, RN RN tw2 Mario Hamlin, NOEL COHEN [facility] Simon Toro RN RN 5 Corrections: (The following items were deleted from the chart) 13:34 13:25 Reassessment: no answer at [facility]#[phone] tw2 tw2 14:09 13:51 BP 86 / 63; Pulse 76bpm; Resp 17bpm; Pulse Ox 100% RA; tw2 tw2
--- NOTE | 2021-04-06 12:30 | EDPHYS ---
Physician Documentation [facility] Name: Zbigniew Mitchell Age: 75 yrs Sex: Male : 1945 Arrival Date: 04/06/2021 Time: 09:58 Bed 5 Private MD: ED Physician Rio Oconnor HPI: 04/06 10:17 This 75 yrs old Male presents to ER via Unassigned with complaints of Feeding rn tube leaking. 10:35 The patient represents for recheck after previously being evaluated for Feeding tube rn problem, leaking around tube. The patient was previously evaluated in the emergency department 2 day(s) ago. Previous care: Manipulation of tube and dressing wound. Previous testing: essentially normal work-up. Present symptoms: Persistent leakage around feeding tube. The patient has experienced similar episodes in the past. The patient has been recently seen at the [facility] Emergency Department. [facility] back from [facility] for persistent drainage around feeding tube. Seen recently and tube manipulated and skin and stoma dressed. Still draining around tube. No fever. Worsening of rash around stoma. Otherwise patient at baseline.. 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 - Social history:: Smoking status: Patient denies any tobacco usage or history of. - Family history:: not pertinent. - Hospitalizations: : No recent hospitalization is reported. ROS: 10:35 Unable to obtain ROS due to baseline dementia. rn Exam: 10:35 Constitutional: Overweight male, no acute distress, follows commands Head/Face: rn Normocephalic, atraumatic. Eyes: Periorbital areas with no swelling, redness, or edema. ENT: Dry mucous membranes Cardiovascular: Tachycardic, regular. No pulse deficits. Respiratory: No increased work of breathing, no retractions or nasal flaring. Abdomen/GI: Soft, non-tender, drainage of gastric contents with constant use from stoma around tube. Stoma noticeably larger than tube diameter. No blood noted. Patient with surrounding erythema and skin breakdown around stoma site. MS/ Extremity: Pulses equal, no cyanosis. Neuro: Awake and alert, GCS 15 Vital Signs: 10:00 BP 148 / 85; Pulse 109; Resp 18; Pulse Ox 93% ; jl7 13:51 BP 86 / 63; Pulse 76; Resp 17; Temp 97.9(TE); Pulse Ox 100% on R/A; tw2 Procedures: 10:17 G-tube placement: a 20 Khmer catheter was placed, by the ED physician, Rio Oconnor MD rn Stoma too large for small feeding tube the patient has feeding tube leakage. Larger 20 Khmer feeding tube placed with markedly decreased leakage. Will confirm tube placement as well as get a CAT scan to rule out obstruction.. MDM: 09:58 Patient medically screened. rn 12:23 Differential diagnosis: bowel obstruction, gastritis, gastroesophageal reflux disease, rn non-specific abd pain, Feeding tube malfunction, obstruction, infection, feeding tube to small. Data reviewed: vital signs, nurses notes, lab test result(s), radiologic studies, CT scan, plain films, and as a result, I will discharge patient. Counseling: I had a detailed discussion with the patient and/or guardian regarding: the historical points, exam findings, and any diagnostic results supporting the discharge/admit diagnosis, lab results, radiology results, the need for outpatient follow up, to return to the emergency department if symptoms worsen or persist or if there are any questions or concerns that arise at home. Response to treatment: the patient's symptoms have markedly improved after treatment, and as a result, I will discharge patient. Special discussion: I discussed with the patient/guardian in detail that at this point there is no indication for admission to the hospital. It is understood, however, that if the symptoms persist or worsen the patient needs to return immediately for re-evaluation. ED course: CT without acute findings just as a couple days ago. Feeding tube was replaced with larger diameter feeding tube and markedly decreased leakage around tube. Skin dressed. Nursing needs to decrease feeding volume to decrease residuals in order to decrease leakage. Also very positional. Will DC back to [facility] with these instructions.. 04/06 10:02 Order name: CBC with Diff rn 04/06 10:02 Order name: Basic Metabolic Panel rn 04/06 10:03 Order name: CBC with Automated Diff; Complete Time: 12:21 EDMS 04/06 10:03 Order name: Basic Metabolic Panel; Complete Time: 12: [facility] 04/06 10:19 Order name: CT Abd/Pelvis - PO Contrast Only; Complete Time: 12: rn 04/06 11:07 Order name: CBC Smear Scan; Complete Time: 12: [facility] 04/06 10:02 Order name: IV Start; Complete Time: 12:08 rn 04/06 10:19 Order name: PEG Tube Check w/contrast; Complete Time: 12: rn Administered Medications: 12:29 Drug: NS 0.9% 500 ml Route: IV; Rate: bolus; Site: left upper arm; ch5 14:08 Follow up: Response: No adverse reaction; IV Status: Completed infusion; IV Intake: tw2 500ml Disposition Summary: 04/06/21 12:29 Discharge Ordered Location: Home rn Problem: new rn Symptoms: have improved rn Condition: Stable rn Diagnosis - Gastrostomy malfunction rn - Cellulitis of abdominal wall - Chemical rn Followup: rn - With: Private Physician - When: As needed - Reason: Recheck today's complaints, Re-evaluation by your physician Discharge Instructions: - Discharge Summary Sheet rn - Cellulitis, Adult rn - Gastrostomy Tube Replacement rn - Gastrostomy Tube Home Guide, Adult rn - PEG Tube Home Guide, [id number] rn Forms: - Medication Reconciliation Form rn - Thank You Letter rn - Antibiotic furniture removalist - Prescription Opioid Use rn Signatures: Dispatcher [employer] [facility] Rio Oconnor MD MD rn Wise, Tara RN RN tw2 Mario Hamlin RN RN jl7 Simon Toro, RN RN ch5
[2021-04-06] MEDS ORDERED: NA CHLORIDE 0.9% 500 ML ONE (12:49)
[2021-04-06 14:35] VITALS: BP 86/63; TEMP 97.9; O2SAT 100
== END 2021-04-06 14:28 | disposition home or self-care (01) ==
LOC: ER 09:54
DX: K94.23 Gastrostomy malfunction (principal); L03.311 Cellulitis of abdominal wall; F03.90 Unspecified dementia, unspecified severity, without behavioral disturbance, psychotic disturbance, mood disturbance, and anxiety; I10 Essential (primary) hypertension; Z88.0 Allergy status to penicillin
CPT/HCPCS: 96361; 85025; 80048; 36415; 74177; 49465; 96360; 99284; J7040

== ENCOUNTER 2021-04-07 06:59 | Emergency (ER) | payer OTHER ==
--- OUTSIDE RECORDS SUMMARY | 2021-04-07 07:08 | XMS REPORT | Continuity of Care Document ---
:1945 Author Organization [facility] t Address [address] [place] [address] Care Team Providers Name Role Phone Pcp MD Primary Care Physician Unavailable Poli Conner MD Attending Clinician Deacon Zuniga MD Attending Clinician [phone] Manav Diggs MD Attending Clinician Nelli GONZÁLES [...] Center Sex Assigned At [address] [facility] - 00:00:00 [facility] Medications Ordered Filled Start Stop Current Ordering Indication Dosage Frequency Signature Comments Components Source Medication Medication Date Date Medication? Clinician (SIG) Name Name [facility] 2021- Yes 1{tbl} QD Take [address] n 04-03 tablet by [facility] - (THERAGRAN) 00:00: 23:59 mouth Medi nilson tablet 00 :00 daily. [facility] 2021- Yes 1{tbl} QD Take [address] n 04-03 tablet by [facility] - (THERAGRAN) 00:00: 23:59 mouth Medi nilson tablet 00 :00 daily. [facility] 2021- Yes 1{tbl} QD Take [address] n 04-03 tablet by [facility] - (THERAGRAN) 00:00: 23:59 mouth Medi nilson tablet 00 :00 daily. [facility] ascorbic 2020- Yes 250mg QD Take 1 [...] for Medical HALF-STRENG 00 :00 7 days Center TH,) 0.25 % -Sacrum: external Cleanse solution with 0.25% Dakins solution and pack with 0.25% Dakins wet to dry dressing. Cover with Allevyn foam dressing daily.. sodium 2020- Yes QD Apply [facility] hyp[facility]lorit 04-03 topically Fern kes - e (DAKIN'S, 00:00: 23:59 daily for Medical HALF-STRENG 00 :00 7 days [facility] TH,) 0.25 % -Sacrum: external Cleanse solution with 0.25% Dakins solution and pack with 0.25% Dakins wet to dry dressing. Cover with Allevyn foam dressing daily.. sodium 2020- Yes QD Apply [facility] hypochlorit 04-03 topically Fern kes - e (DAKIN'S, 00:00: 23:59 daily for Medical HALF-STRENG 00 :00 7 days [facility],) 0.25 % -Sacrum: external Cleanse solution with 0.25% Dakins solution and pack with 0.25% Dakins wet to dry dressing. Cover with Allevyn foam dressing daily.. zinc 2020-0 2020- No 220mg QD Take [address] sulfate 04-03- capsule [facility] - (ZINCATE) 00:00: 00:00 (220 mg Medi nilson 50 mg zinc 00 :00 total) by Cent er (220 mg) mouth capsule daily for 10 days. zinc 2020-0 2020- No 220mg QD Take [address] [facility] [address] sulfate 04-03- capsule [facility] - (ZINCATE) 00:00: 00:00 (220 mg Medi nilson 50 mg zinc 00 :00 total) by Cent er (220 mg) mouth capsule daily for 10 days. zinc 2020-0 2020- No 220mg QD Take [address] sulfate 04-03 capsule [facility] - (ZINCATE) 00:00: 00:00 (220 mg Medi nilson 50 mg zinc 00 :00 total) by Cent er (220 mg) mouth capsule daily for 10 days. acetaminoph Yes 1{tbl} Take [address] en-codeine 04-02 tablet by Luke s - (TYLENOL 18:23: mouth Medical #3) 300-30 35 every 6 Center mg per (six) tablet hours as needed. donepeziL Yes 10mg QD Take [address] (ARICEPT) 04-02 by mouth [facility] - 10 MG 18:23: nightly. Medical tablet 35 Center Missing or Yes Aspercreme [facility] Non-Formula 04-02 (lidocaine Fern kes - ry 18:23: 4%) patch Medical Medication 35 BID . Center calcium Yes 1{tbl} QD Take [address] [facility] [address] carbonate-v -08 tablet by Rafael es - itamin D3 18:23: mouth Medical (calcium-vi 35 daily. Center tamin D) 500 mg(1,250mg) -200 unit per tablet phenytoin Yes Q.[id number] Take by [facility] (DILANTIN) 9-08 [id number] mouth 3 [facility] - 100 MG ER [...] needed for Itching. ipratropium 0 Yes 500ug Q.30987355 Take [address] (ATROVENT) 9-08 [id number] mcg by L ukes - 0.02 % 18:23: 3D nebulizati Medic al nebulizer 35 on 3 Center solution (three) times daily. magnesium 0 Yes 400mg Q.5D Take [address] [...] al 17 gram 35 Center packet gabapentin 2020-0 Yes 100mg Q.03275729 Take [address] (NEURONTIN) 9-08 [id number] mg by L ukes - 100 MG 18:23: 3D mouth 3 Medical capsule 35 (three) Center times daily. potassium 2020-0 Yes 10meq QD Take [address] [...] 500 mg(1,250mg) -200 unit per tablet phenytoin 0 Yes Q.00199980 Take by [facility] (DILANTIN) 9-08 [id number] mouth 3 [facility] - 100 MG ER 18:23: 3D (three) Medic al capsule 35 times Center daily. docusate Yes 100mg Q.5D Take [address] sodium 9-08 mg by [facility] - (COLACE) 18:23: mouth 2 Medica l 100 MG 35 (two) Center capsule times daily. famotidine 2021-0 Yes 20mg Q.5D Take 20 mg C [...] Center daily as needed for Itching. ipratropium Yes 500ug Q.59204706 Take [address] (ATROVENT) 9-08 [id number] mcg by L ukes - 0.02 % 18:23: 3D nebulizati Medic al nebulizer 35 on 3 Center solution (three) times daily. magnesium Yes 400mg Q.5D Take [address] oxide 9-08 mg by [facility] - (MAG-OX) 18:23: mouth 2 Medica l 400 mg 35 (two) Center (241.3 mg times magnesium) daily. tablet megestroL Yes 400mg QD Take [address] (MEGACE) 9-08 mg by [facility] - 400 mg/10 18:23: mouth Medical mL (40 35 daily. Center mg/mL) suspension polyethylen 0 Yes 17g QD Take [address] e glycol 9-08 by mouth [facility] - (GLYCOLAX) 18:23: daily. Medic al 17 gram 35 Center packet gabapentin 0 Yes 100mg Q.01436920 Take [address] (NEURONTIN) 9-08 [id number] mg by L ukes - 100 MG 18:23: 3D mouth 3 Medical capsule 35 (three) Center times daily. potassium 0 Yes 10meq QD Take [address] [facility] [address] [...] [facility] en-codeine 9-08 tablet by Luke s - (TYLENOL 18:23: mouth Medical #3) [...] 500 mg(1,250mg) -200 unit per tablet phenytoin 0 Yes Q.01962511 Take by [facility] (DILANTIN) 9-08 [id number] mouth 3 [facility] - 100 MG ER [...] needed for Itching. ipratropium 0 Yes 500ug Q.30089561 Take [address] (ATROVENT) 9-08 [id number] mcg by L ukes - 0.02 % 18:23: 3D nebulizati Medic al nebulizer 35 on 3 Center solution (three) times daily. magnesium 0 Yes 400mg Q.5D Take [address] [...] 35 Center packet gabapentin 0 Yes 100mg Q.13746820 Take [address] (NEURONTIN) 9-08 [id number] mg by L ukes - 100 MG 18:23: 3D mouth 3 Medical capsule 35 (three) Center times daily. potassium 0 Yes 10meq QD Take [address] [...] 12 (twelve) hours for 30 days. cholecalcif 2020- Yes 2000U QD Take 1 CH [...] 12 (twelve) hours for 30 days. cholecalcif 2020- Yes 2000U QD Take 1 CH [...] 12 (twelve) hours for 30 days. cholecalcif 2020- Yes 2000U QD Take 1 CH [...] 2.5 mg Tab 00:00: Medical tablet 00 Brice apixaban Yes TWICE [facility] (ELIQUIS) 5-23 DAILY [facility] - 2.5 mg Tab 00:00: Medical tablet 00 [facility] apixaban [address] [facility] (ELIQUIS) 5-23 DAILY [facility] - 2.5 mg Tab 00:00: Medical tablet 00 [facility] amLODIPine Yes DAILY [facility] (NORVASC) 5-04 [facility] - 2.5 MG 00:00: Medical tablet 00 [facility] amLODIPine Yes DAILY [facility] (NORVASC) 5-04 [facility] - 2.5 MG 00:00: Medical tablet 00 [facility] amLODIPine Yes DAILY [facility] (NORVASC) 5-04 [facility] - 2.5 MG 00:00: Medical tablet 00 [facility] Vital Signs Vital Name Observation Time Observation Value Comments Source Systolic blood 2021-04-02 15:00:00 128 mm[Hg] [facility] pressure [facility] Diastolic blood 2021-04-02 15:00:00 72 mm[Hg] [facility] Heart rate 2021-04-02 15:00:00 63 /min [facility] Body temperature 2021-04-02 15:00:[address] kes [facility] Respiratory rate 2021-04-02 15:00:00 20 /min [facility] Oxygen saturation in 2021-04-02 15:00:00 95 /min [facility] Arterial blood by Medical Ce alexander Pulse oximetry Body weight 2021-03-31 04:00:00 87.8 kg [facility] BMI 2021-03-31 04:00:00 30.32 kg/m2 [facility] Body height 2021-03-28 21:00:00 170.2 cm [facility] Procedures Procedure Date / Time Performed Performing Clinician Sour e D-DIMER 2021-04-02 13:51:00 Nelli [facility] LACTATE DEHYDROGENASE 2021-04-02 13:50:00 Nelli [facility] ([facility]) [facility] FERRITIN 2021-04-02 13:50:00 Nelli [facility] CBC W/PLT COUNT & AUTO 2021-04-02 13:50:00 Nelli [facility] C-REACTIVE PROTEIN 2021-04-02 13:50:00 Nelli [facility] PROCALCITONIN 2021-04-02 13:50:00 Nelli [facility] COMPREHENSIVE METABOLIC 2021-04-02 13:50:00 Nelli [facility] MAGNESIUM 2021-04-02 13:50:00 Nelli [facility] CBC W/PLT COUNT & AUTO 2021-04-02 13:50:00 Nelli [facility] DIFFERENTIAL [facility] POCT-GLUCOSE METER 2021-04-02 01:52:00 Caterina Renata Manav [facility] POCT-GLUCOSE METER 2021-04-01 20:51:00 Caterina Renata [facility] POCT-GLUCOSE METER 2021-04-01 16:51:00 Caterina [facility] URINE CULTURE 2021-04-01 16:50:00 Daine Gallagher [facility] URINALYSIS W/ REFLEX 2021-04-01 16:50:00 ElliottDiane esqueda Madyson CH I [facility] URINE CULTURE [facility] SARS-COV2/INFLUENZA/RSV 2021-04-01 16:48:00 Renata Diggs s [facility] RT-PCR [facility] BASIC METABOLIC PANEL (7) 2021-04-01 16:47:00 Diane Gallaghre [facility] POCT-GLUCOSE METER 2021-04-01 11:43:00 Renata Diggs [facility] VANCOMYCIN LEVEL, TROUGH 2021-04-01 10:34:00 Dakotah Figueredo [facility] POCT-GLUCOSE METER 2021-04-01 05:45:00 [facility] BASIC [facility]OLIC PANEL (7) 2021-04-01 05:26:00 Madison Newsome [facility] CBC W/PLT COUNT & AUTO 2021-04-01 05:26:00 Sersophia [facility] DIFFERENTIAL [facility] MAGNESIUM 2021-04-01 05:26:[address] [facility] PHOSPHORUS 2021-04-01 05:26:00 [facility]EL 2021-04-01 05:26:00 [facility]-REACTIVE PROTEIN 2021-04-01 05:26[facility]00 [facility]AT[facility] (CK) 2021-04-01 05:26:00 [facility] CALCI[facility], IONIZED 2021-04-01 05:26:[facility] W/PLT COUNT & AUTO 2021-04-01 05:26:00 Sersuma [facility] S t [facility] DIFFERENTIAL [facility] POCT-GLUCOSE METER 2021-03-31 23:22:00 Sancho Gregory [facility] POCT-GLUCOSE METER 2021-03-31 15:28:00 Sancho Gregory [facility] CBC W/PLT COUNT & AUTO 2021-03-31 12:50:00 SerBerny moise [facility] S t [facility] - DIFFERENTIAL [facility] MAGNESIUM 2021-03-31 12:50:00 SerBerny moise [facility] PHOSPHORUS 2021-03-31 12:50:[address] [facility] HEPATIC FUNCTION PANEL 2021-03-31 12:50:00 Kasey [facility] COMPREHENSIVE METABOLIC 2021-03-31 12:50:00 Lan Peraza [facility] VANCOMYCIN LEVEL, RANDOM 2021-03-31 12:50:00 Joanna Jolly [facility] CBC W/PLT COUNT & AUTO 2021-03-31 12:50:00 Sersuma [facility] S [facility] DIFFERENTIAL [facility] CALCIUM, IONIZED 2021-03-31 12:49:00 Sersuma Berny [facility] POCT-GLUCOSE METER 2021-03-31 12:08:00 Sancho Gregory [facility] POCT-GLUCOSE METER 2021-03-31 09:59:00 Sancho Gregory [facility] BASIC METABOLIC PANEL (7) 2021-03-31 00:07:00 Madison Newsome [facility] XR ABDOMEN / KUB 1 VIEW 2021-03-30 21:31:00 Bola Naylor [facility] POCT-GLUCOSE METER 2021-03-30 21:31:00 Sancho Gregory [facility] POCT-GLUCOSE METER 2021-03-30 17:26:00 Sancho Gregory [facility] XR ABDOMEN / KUB 1 VIEW 2021-03-30 17:03:00 Madison Newsome [facility] BASIC METABOLIC PANEL (7) 2021-03-30 16:42:00 Madison Newsome [facility] POCT-GLUCOSE METER 2021-03-30 12:50:00 [facility] US RENAL COMPLETE 2021-03-30 11:26:00 Lan Peraza [facility] 2D ECHO W/ DOPPLER 2021-03-30 10:31:37 Jd Jefferson [facility] (CW/PW/COLOR) [facility] BASIC METABOLIC PANEL (7) 2021-03-30 09:53:00 David Reeves [facility] POCT-GLUCOSE METER 2021-03-30 05:02:00 [facility] BASIC METABOLIC PANEL (7) 2021-03-30 04:12:00 David Reeves [facility] CBC W/PLT COUNT & AUTO 2021-03-30 04:12:00 Kasey [facility] DIFFERENTIAL [facility] MAGNESIUM 2021-03-30 04:12:[address] [facility] PHOSPHORUS 2021-03-30 04:12:00 [facility] HEPATIC FUNCTION PANEL 2021-03-30 04:12:00 [facility] C-REACTIVE PROTEIN 2021-03-30 04:12:00 [facility] CREATINE KIN[facility] (CK) 2021-03-30 04:12:00 Lan Peraza [facility] CALCIUM, IONIZED 2021-03-30 04:12:00 Serenio [facility] CBC W/PLT COUNT & AUTO 2021-03-30 04:12:00 Sersophia [facility] S t [facility] - DIFFERENTIAL [facility] POCT-GLUCOSE METER 2021-03-29 23:40:00 [facility] OSMOLALITY, URINE 2021-03-29 21:49:00 Tye [facility] OSMOLALITY, SERUM 2021-03-29 21:49:00 Tye [facility] SODIUM, RANDOM URINE 2021-03-29 21:49:[address] [facility] CREATININE, RANDOM URINE 2021-03-29 21:49:[address] [facility] BASIC METABOLIC PANEL (7) 2021-03-29 21:49:00 David Reeves CH, I [facility] SODIUM, RANDOM URINE 2021-03-29 17:25:00 Stu [facility] PROTEIN, RANDOM URINE 2021-03-29 17:25:00 [facility]AT[facility]INE, RANDOM URINE 2021-03-29 17:25:00 [facility] OSMOLALITY, URINE 2021-03-29 17:25:00 Stu [facility] POCT-GLUCOSE METER 2021-03-29 17:21:00 [facility] BASIC METABOLIC PANEL (7) 2021-03-29 16:26:00 David Reeves CH, I [facility] VALPROIC ACID LEVEL, 2021-03-29 16:26:00 Jd Jefferson [facility] PHENYTOIN LEVEL, TOTAL 2021-03-29 16:26:00 Jd Jefferson [facility] Hernesto [facility] BASIC METABOLIC PANEL (7) 2021-03-29 12:51:00 David Reeves CH, I [facility] POCT-GLUCOSE METER 2021-03-29 12:38:00 Sancho Gregory [facility] BASIC METABOLIC PANEL (7) 2021-03-29 09:08:00 David Reeves I [facility] VANCOMYCIN LEVEL, RANDOM 2021-03-29 09:08:00 Joanna Jolly [facility] B-TYPE NATRIURETIC FACTOR 2021-03-29 09:08:00 Jd Jefferson I [facility] (BNP) [facility] BASIC METABOLIC PANEL (7) 2021-03-29 05:51:00 David Reeves I [facility] TSH/FREE T4 IF INDICATED 2021-03-29 05:05:[address] [facility] CBC W/PLT COUNT & AUTO 2021-03-29 05:05:00 Kasey [facility] S t [facility] DIFFERENTIAL [facility] (CELLAVISION MANUAL DIFF) 2021-03-29 05:05:00 Kasey Berny [facility] CBC W/PLT COUNT & AUTO 2021-03-29 05:05:00 Kasey [facility] S t [facility] DIFFERENTIAL [facility] URINE CULTURE 2021-03-29 02:53:00 [facility] URIN[facility]IS W/ REFLEX 2021-03-29 02:53:00 Kasey [facility] URINE CULTURE [facility] BLOOD CULTURE 2021-03-29 02:52:00 [facility] BLOOD GAS, ARTERIAL 2021-03-28 23:03:00 [facility] (HEMOGRAM ONLY[facility] 2021-03-28 23:02:00 [facility] PT/APTT 2021-03-28 23:02:00 [facility] D-DIMER 2021-03-28 23:02:00 [facility] LACTIC ACID, VENOUS 2021-03-28 23:02:00 Sersuma [facility] CALCIUM, IONIZED 2021-03-28 23:02:00 [facility] COMPREHENSIVE METABOLIC 2021-03-28 22:29:00 [facility]-REACTIVE PROTEIN 2021-03-28 22:29:00 [facility] MAGNESIUM 2021-03-28 22:29:00 [facility]OS[facility]US 2021-03-28 22:29:00 [facility] CREATINE KINASE (CK) 2021-03-28 22:29:00 [facility] XR ABDOMEN / KUB 1 VIEW 2021-03-28 22:07:00 [facility] XR CHEST 1 VIEW PORTABLE 2021-03-28 21:59:00 Bannersuma [facility] / BEDSIDE [facility] Plan of Care Planned Activity Planned [...] 00:00:00 (1 of 1 - Medical Center [id number] PCV13) [code = PNEUMOCOCCAL 65+ YRS (1 of 1 - [id number] PCV13)] Future Scheduled 2008 PNEUMOCOCCAL 65+ YRS [facility] - Test 00:00:00 (1 of 1 - Medical Center [id number] PCV13) [code = PNEUMOCOCCAL 65+ YRS (1 of 1 - [id number] PCV13)] Future Scheduled 2008 PNEUMOCOCCAL 65+ YRS [facility] - Test 00:00:00 (1 of 1 - Medical Center [id number] PCV13) [code = PNEUMOCOCCAL 65+ YRS (1 of 1 - [id number]_Wyhcqca PCV13)] Future Scheduled 2005-03-27 MEDICARE ANNUAL [facility] [...] Type Clinicians Facility Department ID 2021-03-28 2021-04-02 [facility] [id number] [facility] 20:39:00 18:23:00 Encounter Jordan Zuniga Rekha Srinivas Medical Hoffman, Maria C enter 2021-03-28 2021-04-02 [facility] [id number] [facility] 20:[facility] 18:23:00 Encounter Sancho Gregory, Jordan Diggs, Daphney Kwok 2021-03-29 2021-03-29 Travel [facility] [id number] [facility] 00:[facility]:00 [facility] 2021-03-29 2021-03-29 Travel [facility] [id number] [facility] 00:[facility]:00 [facility] Results Test Description Test Time Test Comments Results Result Comments Source Urine culture 2021-04-03 09:42:00 Test Item Value Reference Range Interpretation Comme nts Result (test code = 6463-4) 80-89,000 col/mL Capri tropicalis A Lab Interpretation (test code = 10705-4) [facility] [id number] 09:42:00 Test Item Value Reference Range Interpretation Comments Result (test code = 80-89,000 col/mL A 6463-4) Capri tropicalis Lab Interpretation (test Abnormal code = 43788-9) [facility] [id number] 09:42:00 Test Item Value Reference Range Interpretation Comments Result (test code = 80-89,000 col/mL A 6463-4) Capri tropicalis Lab Interpretation (test Abnormal code = 52731-6) [facility] 2021-04-03 04:01:00 Test Item Value Reference Range Interpretation Comments Result (test code = No growth in 5 days 6463-4) [facility] Culture - Routine (Left Venipuncture) 2021-04-03 04:01:00 Test Item Value Reference Range Interpretation Comments Result (test code = No growth in 5 days 6463-4) [facility] Culture - Routine (Left Venipuncture) 2021-04-03 04:01:00 Test Item Value Reference Range Interpretation Comments Result (test code = No growth in 5 days 6463-4) [facility] [id number] 04:01:00 Test Item Value Reference Range Interpretation Comments CULTURE (BEAKER) (test No growth in 5 days code = 1095) BLOOD [id number] 04:01:00 Test Item Value Reference Range Interpretation Comments CULTURE (BEAKER) (test No growth in 5 days code = 1095) [id number] 14:50:00 Test Item Value Reference Range Interpretation Comments Ferritin (test code = 486.66 ng/mL 5-275 H 2276-4) STACY (test code = STCAY) [employer] - PIAYA L Lab Interpretation (test Abnormal code = 04828-1) [facility] 14:50:00 Test Item Value Reference Range Interpretation Comments Ferritin (test code = 486.66 ng/mL 5.00-275.00 H 2276-4) STACY (test code = STACY) [employer] - PIAYA L Lab Interpretation (test Abnormal code = 39948-9) [facility] 14:50:00 Test Item Value Reference Range Interpretation Comments Ferritin (test code = 486.66 ng/mL 5.00-275.00 H 2276-4) STACY (test code = STACY) [employer] - PIAYA L Lab Interpretation (test Abnormal code = 84865-0) [facility]2021-[facility]-08 14:50:00 Test Item Value Reference Range Interpretation Comments FERRITIN (BEAKER) (test code = 486.66 ng/mL 5.00-275.00 H 361) [employer] - PIAYA [id number] 14:43:00 Test Item Value Reference Range Interpretation Comments Procalcitonin (test <0.05 See_Comment [Automa saulo code = 38997-9) message] The system which generated this result transmit saulo reference range : <0.05 ng/mL. Th e reference range was not used to interpret this result as normal/abnormal . STACY (test code = STACY) SEPSIS RISK (ng/mL)Low: 0.05-0.50Inter mediate: 0.51-2.00High: >=2.01 Lab Interpretation Normal (test code = 03096-6) [facility]2021-[facility]-08 14:43:00 Test Item Value Reference Range Interpretation Comments Procalcitonin (test <0.05 See_Comment [Automa saulo code = 13963-3) message] The system which generated this result transmit saulo reference range : <0.05 ng/mL. Th e reference range was not used to interpret this result as normal/abnormal . STACY (test code = STACY) SEPSIS RISK (ng/mL)Low: 0.05-0.50Inter mediate: 0.51-2.00High: >=2.01 Lab Interpretation Normal (test code = 83581-6) [facility]2021-09-08 14:43:00 Test Item Value Reference Range Interpretation Comments Procalcitonin (test <0.05 See_Comment [Automa saulo code = 24964-6) message] The system which generated this result transmit saulo reference range : <0.05 ng/mL. Th e reference range was not used to interpret this result as normal/abnormal . STACY (test code = STACY) SEPSIS RISK (ng/mL)Low: 0.05-0.50Inter mediate: 0.51-2.00High: >=2.01 Lab Interpretation Normal (test code = 96638-7) [facility]IN2021-09-08 14:43:00 Test Item Value Reference Range Interpretation Comments PROCALCITONIN (BEAKER) (test code = < ng/mL <0.05 3036) SEPSIS RISK (ng/mL)Low: 0.05-0.50Intermediate: 0.51-2.00High: >=2.01Comprehensive metabolic [id number] 14:39:00 Test Item Value Reference Range Interpretation [...] 2.0 g/dL 3.5-5 L Specime n slightly 29888-4) hemolyzed Alkaline Phosphatase 65 U/L 40-150 (test code = 6768-6) Total Bilirubin (test 0.4 mg/dL 0.2-1.2 Specim en slightly code = 1975-2) hemolyzed Sodium (test code = 141 meq/L 282-416 9730-2) Potassium (test code 3.3 meq/L 3.5-5.1 L [...] (test code = 7.2 mg/dL 8.4-10.2 L 31291-4) AST (test code = 38 U/L 5-34 H Specimen sl ightly 1920-8) hemolyzed ALT (test code = 31 U/L 6-55 Specimen sl ightly 1742-6) hemolyzed EGFR (test code = 95 mL/min/1.73 [place] [address]-1) NOT ACCURATE CREATININE CLEARANCE IN PREDICTING GLOMERULAR FILTRATION RATE . ESTIMATED GFR I S NOT APPLICABLE FOR DIALYSIS PATIEN TS. STACY (test code = STACY) [employer] - PIAYA L Lab Interpretation Abnormal (test code = 92392-8) [facility] Hospital[facility]act[facility] dehydrogenase (LDH)2021-04-02 14:39:00 Test Item Value Reference Range Interpretation Comments LDH (test code = 390 U/L 125-220 H Specimen 2532-0) slightly hemolyzed STACY (test code = STACY) [employer] - PIAYA L Lab Interpretation Abnormal (test code = 97430-2) [facility]Com[facility] [id number] 14:39:00 Test Item Value Reference Range Interpretation Comments Protein, Total (test 6.0 See_Comment Specime n slightly code = 5825-2) hemolyzed [Automated message] The system which generated this result transmit saulo reference range : 6.0 - 8.3 gm/dL . The reference range was not u sed to interpret th is result as normal/abnormal . Albumin (test code = 2.0 g/dL 3.5-5.0 L Specime n slightly 27121-0) hemolyzed Alkaline Phosphatase 65 U/L 40-150 (test code = 6768-6) Total Bilirubin (test 0.4 mg/dL 0.2-1.2 Specim en slightly code = 1974-2) hemolyzed Sodium (test code = 141 meq/L 121-880 8077-2) Potassium (test code 3.3 meq/L 3.5-5.1 L Specime n slightly = 2823-3) hemolyzed Chloride (test code = 113 meq/L 98-107 H 5-0) CO2 (test code = 20 meq/L 22-29 L 2027-9) BUN (test code = 39 mg/dL 7-21 H 3094-0) Creatinine (test code 0.79 mg/dL 0.57-1.25 Specim en slightly = 2160-0) hemolyzed Glucose (test code = 100 mg/dL 70-105 2345-7) Calcium (test code = 7.2 mg/dL 8.4-10.2 L 06674-4) AST (test code = 38 U/L 5-34 H Specimen sl ightly 1920-8) hemolyzed ALT (test code = 31 U/L 6-55 Specimen sl ightly 1742-6) hemolyzed EGFR (test code = 95 mL/min/1.73 [place] [address]-6) NOT ACCURATE CREATININE CLEARANCE IN PREDICTING GLOMERULAR FILTRATION RATE . ESTIMATED GFR I S NOT APPLICABLE FOR DIALYSIS PATIEN TS. STACY (test code = STACY) [employer] ID - PIAYA L Lab Interpretation Abnormal (test code = 75619-2) [facility] 14:39:00 Test Item Value Reference Range Interpretation Comments LDH (test code = 390 U/L 125-220 H Specimen 2532-0) slightly hemolyzed STACY (test code = STACY) [employer] ID - PIAYA L Lab Interpretation Abnormal (test code = 10279-5) [facility] [id number] 14:39:00 Test Item Value Reference Range Interpretation [...] 2.0 g/dL 3.5-5.0 L Specime n slightly 24442-9) hemolyzed Alkaline Phosphatase 65 U/L 40-150 (test code = 6768-6) Total Bilirubin (test 0.4 mg/dL 0.2-1.2 Specim en slightly code = 1974-2) hemolyzed Sodium (test code = 141 meq/L 075-215 1272-2) Potassium (test code 3.3 meq/L 3.5-5.1 L Specime n slightly = 2823-3) hemolyzed Chloride (test code = 113 meq/L 98-107 H 2074-0) CO2 (test code = 20 meq/L 22-29 L 2027-9) BUN (test code = 39 mg/dL 7-21 H 3094-0) Creatinine (test code 0.79 mg/dL 0.57-1.25 Specim en slightly = 2160-0) hemolyzed Glucose (test code = 100 mg/dL 70-105 2345-7) Calcium (test code = 7.2 mg/dL 8.4-10.2 L 43833-9) AST (test code = 38 U/L 5-34 H Specimen sl ightly 1920-8) hemolyzed ALT (test code = 31 U/L 6-55 Specimen sl ightly 1742-6) hemolyzed EGFR (test code = 95 mL/min/1.73 [place] [address]-2) NOT ACCURATE CREATININE CLEARANCE IN PREDICTING GLOMERULAR FILTRATION RATE . ESTIMATED GFR I S NOT APPLICABLE FOR DIALYSIS PATIEN TS. STACY (test code = STACY) [employer] ID - PIAYA L Lab Interpretation Abnormal (test code = 02899-8) [facility])2021-04-02 14:39:00 Test Item Value Reference Range Interpretation Comments LDH (test code = 390 U/L 125-220 H Specimen 2532-0) slightly hemolyzed STACY (test code = STACY) [employer] ID - PIAYA L Lab Interpretation Abnormal (test code = 00286-2) [facility] (LDH)2021-04-02 14:39:00 Test Item Value Reference Range Interpretation Comments LACTATE DEHYDROGENASE 390 U/L 125-220 H Specim en slightly (BEAKER) (test code = hemoly zed 635) [employer] ID Doron 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 [employer] ID - MERT [id number] 14:35:00 Test Item Value Reference Range Interpretation Comments Magnesium (test code = 1.4 mg/dL 1.6-2.6 L Speci men 86025-1) slightly hemolyzed STACY (test code = STACY) [employer] ID - PIAYA L Lab Interpretation Abnormal (test code = 84158-2) [facility] [id number] 14:35:00 Test Item Value Reference Range Interpretation Comments CRP (test code = 676) 2.68 mg/dL 0-0.5 H STACY (test code = STACY) [employer] ID - PIAYA L Lab Interpretation (test Abnormal code = 66659-1) [facility] 14:35:00 Test Item Value Reference Range Interpretation Comments Magnesium (test code = 1.4 mg/dL 1.6-2.6 L Speci men 66982-9) slightly hemolyzed STACY (test code = STACY) [employer] ID - PIAYA L Lab Interpretation Abnormal (test code = 35549-6) [facility]-Reactive [id number] 14:35:00 Test Item Value Reference Range Interpretation Comments CRP (test code = 676) 2.68 mg/dL 0.00-0.50 H STACY (test code = STACY) [employer] ID - PIAYA L Lab Interpretation (test Abnormal code = 13978-5) [facility] 14:35:00 Test Item Value Reference Range Interpretation Comments Magnesium (test code = 1.4 mg/dL 1.6-2.6 L Speci men 25650-1) slightly hemolyzed STACY (test code = STACY) [employer] ID - PIAYA L Lab Interpretation Abnormal (test code = 26447-4) [facility] [id number] 14:35:00 Test Item Value Reference Range Interpretation Comments CRP (test code = 676) 2.68 mg/dL 0.00-0.50 H STACY (test code = STACY) [employer] ID - PIAYA L Lab Interpretation (test Abnormal code = 76040-3) [facility] [id number] 14:35:00 Test Item Value Reference Range Interpretation Comments C-REACTIVE PROTEIN (BEAKER) (test 2.68 mg/dL 0.00-0.50 H code = 676) [employer] ID - MERT [id number] 14:35:00 Test Item Value Reference Range Interpretation Comments MAGNESIUM (BEAKER) 1.4 mg/dL 1.6-2.6 L Specimen slightly (test code = 627) hemolyzed [employer] ID - MERT RE-[id number] 14:24:00 Test Item Value Reference Range Interpretation Comments D-Dimer, Quant (test 1.25 See_Comment H [Autom ated code = 13279-4) message] The system which generated this result [...] range. Lab Interpretation Abnormal (test code = 40620-1) [facility]-[id number] 14:24:00 Test Item Value Reference Range Interpretation Comments D-Dimer, Quant (test 1.25 See_Comment H [Autom ated code = 13971-3) message] The system which generated this result [...] range. Lab Interpretation Abnormal (test code = 37856-4) [facility]-[id number] 14:24:00 Test Item Value Reference Range Interpretation Comments D-Dimer, Quant (test 1.25 See_Comment H [Autom ated code = 96098-7) message] The system which generated this result [...] range. Lab Interpretation Abnormal (test code = 92574-3) [facility]-[id number] 14:24:00 Test Item Value Reference Range Interpretation [...] 95-100% range.CBC with platelet count + automated [id number] 14:17:00 Test Item Value Reference Range Interpretation Comments WBC (test code = 6690-2) 14.6 See_Comment H [A utomated message] The system [employer] generated this result transmitted ref erence range: 3.5 - 10 .5 K/L. The refe rence range was not u sed to interpret this result as normal/abnor mal. RBC (test code = 789-8) 4.03 See_Comment L [Au tomated message] The system [employer] generated this result transmitted ref erence range: 4.63 - 6 .08 M/L. The refe rence range was not u sed to interpret this result as normal/abnor mal. MCHC (test code = 786-4) 32.0 See_Comment L [A utomated message] The system [employer] generated this result transmitted ref erence range: [...] See_Comment [Aut omated message] 777-3) The system [employer] generated this result transmitted ref erence range: 150 - 45 0 K/CU MM. The referen ce range was not u sed to interpret this result as normal/abnor mal. MPV (test code = 11.2 fL 9.4-12.4 41919-8) nRBC (test code = 413) 1 See_Comment H [Aut omated message] The system [employer] generated this result transmitted ref erence range: [...] H [Aut omated message] 670) The system [employer] generated this result transmitted ref erence range: 1.78 - 5 .38 K/L. The refe rence range was not u sed to interpret this result as normal/abnor mal. # Lymphs (test code = 1.26 See_Comment L [Auto mated message] 414) The system [employer] generated this result transmitted ref erence range: 1.32 - 3 .57 K/L. The refe rence range was not u sed to interpret this result as normal/abnor mal. # Monos (test code = 0.76 See_Comment [Autom ated message] 415) The system [employer] generated this result transmitted ref erence range: 0.30 - 0 .82 K/L. The refe rence range was not u sed to interpret this result as normal/abnor mal. # Eos (test code = 416) 0.00 See_Comment L [Au tomated message] The system [employer] generated this result transmitted ref erence range: 0.04 - 0 .54 K/L. The refe rence range was not u sed to interpret this result as normal/abnor mal. # Baso (test code = 417) 0.03 See_Comment [A utomated message] The system [employer] generated this result transmitted ref erence range: 0.01 - 0 .08 K/L. The refe rence range was not u sed to interpret this result as normal/abnor mal. Immature 2 % 0-1 H Granulocytes-Relative (test code = 2801) Lab Interpretation (test Abnormal code = 25401-6) [facility] with platelet count + automated [id number] 14:17:00 Test Item Value Reference Range Interpretation Comments WBC (test code = 6690-2) 14.6 See_Comment H [A utomated message] The system [employer] generated this result transmitted ref erence range: 3.5 - 10 .5 K/L. The refe rence range was not u sed to interpret this result as normal/abnor mal. RBC (test code = 789-8) 4.03 See_Comment L [Au tomated message] The system [employer] generated this result transmitted ref erence range: 4.63 - 6 .08 M/L. The refe rence range was not u sed to interpret this result as normal/abnor mal. MCHC (test code = 786-4) 32.0 See_Comment L [A utomated message] The system [employer] generated this result transmitted ref erence range: [...] See_Comment [Aut omated message] 777-3) The system [employer] generated this result transmitted ref erence range: 150 - 45 0 K/CU MM. The referen ce range was not u sed to interpret this result as normal/abnor mal. MPV (test code = 11.2 fL 9.4-12.4 93117-9) nRBC (test code = 413) 1 See_Comment H [Aut omated message] The system [employer] generated this result transmitted ref erence range: [...] H [Aut omated message] 670) The system [employer] generated this result transmitted ref erence range: 1.78 - 5 .38 K/L. The refe rence range was not u sed to interpret this result as normal/abnor mal. # Lymphs (test code = 1.26 See_Comment L [Auto mated message] 414) The system [employer] generated this result transmitted ref erence range: 1.32 - 3 .57 K/L. The refe rence range was not u sed to interpret this result as normal/abnor mal. # Monos (test code = 0.76 See_Comment [Autom ated message] 415) The system [employer] generated this result transmitted ref erence range: 0.30 - 0 .82 K/L. The refe rence range was not u sed to interpret this result as normal/abnor mal. # Eos (test code = 416) 0.00 See_Comment L [Au tomated message] The system [employer] generated this result transmitted ref erence range: 0.04 - 0 .54 K/L. The refe rence range was not u sed to interpret this result as normal/abnor mal. # Baso (test code = 417) 0.03 See_Comment [A utomated message] The system [employer] generated this result transmitted ref erence range: 0.01 - 0 .08 K/L. The refe rence range was not u sed to interpret this result as normal/abnor mal. Immature 2 % 0-1 H Granulocytes-Relative (test code = 2801) Lab Interpretation (test Abnormal code = 06063-0) [facility] with platelet count + automated [id number] 14:17:00 Test Item Value Reference Range Interpretation Comments WBC (test code = 6690-2) 14.6 See_Comment H [A utomated message] The system [employer] generated this result transmitted ref erence range: 3.5 - 10 .5 K/L. The refe rence range was not u sed to interpret this result as normal/abnor mal. RBC (test code = 789-8) 4.03 See_Comment L [Au tomated message] The system [employer] generated this result transmitted ref erence range: 4.63 - 6 .08 M/L. The refe rence range was not u sed to interpret this result as normal/abnor mal. MCHC (test code = 786-4) 32.0 See_Comment L [A utomated message] The system [employer] generated this result transmitted ref erence range: [...] code = 264 See_Comment [Aut omated message] 847-3) The system [employer] generated this result transmitted ref erence range: 150 - 45 0 K/CU MM. The referen ce range was not u sed to interpret this result as normal/abnor mal. MPV (test code = 11.2 fL 9.4-12.4 37076-8) nRBC (test code = 413) 1 See_Comment H [Aut omated message] The system [employer] generated this result transmitted ref erence range: [...] H [Aut omated message] 670) The system [employer] generated this result transmitted ref erence range: 1.78 - 5 .38 K/L. The refe rence range was not u sed to interpret this result as normal/abnor mal. # Lymphs (test code = 1.26 See_Comment L [Auto mated message] 414) The system [employer] generated this result transmitted ref erence range: 1.32 - 3 .57 K/L. The refe rence range was not u sed to interpret this result as normal/abnor mal. # Monos (test code = 0.76 See_Comment [Autom ated message] 415) The system [employer] generated this result transmitted ref erence range: 0.30 - 0 .82 K/L. The refe rence range was not u sed to interpret this result as normal/abnor mal. # Eos (test code = 416) 0.00 See_Comment L [Au tomated message] The system [employer] generated this result transmitted ref erence range: 0.04 - 0 .54 K/L. The refe rence range was not u sed to interpret this result as normal/abnor mal. # Baso (test code = 417) 0.03 See_Comment [A utomated message] The system [employer] generated this result transmitted ref erence range: 0.01 - 0 .08 K/L. The refe rence range was not u sed to interpret this result as normal/abnor mal. Immature 2 % 0-1 H Granulocytes-Relative (test code = 2801) Lab Interpretation (test Abnormal code = 58433-5) [facility] W/PLT COUNT & AUTO [id number] 14:17:00 Test Item Value Reference Range Interpretation [...] PERCENT (BEAKER) (test code = 2801) POC-Glucose [id number] 02:03:00 Test Item Value Reference Range Interpretation Comments POC-Glucose Meter (test 115 mg/dL 70-110 H : TE STED AT [facility] code = 1538) [address] [place] [address], 770 30: [employer]/Techni tressa ID = [id number] for Desin (contract ), Nhi Lab Interpretation (test Abnormal code = 59576-3) [facility] [id number] 02:03:00 Test Item Value Reference Range Interpretation Comments POC-Glucose Meter (test 115 mg/dL 70-110 H : TE STED AT [facility] code = 1538) [address] [place] [address], 770 30: [employer]/Techni tressa ID = [id number] for Desin (contract ), Nhi Lab Interpretation (test Abnormal code = 51351-7) [facility]ucose [id number] 02:03:00 Test Item Value Reference Range Interpretation Comments POC-Glucose Meter (test 115 mg/dL 70-110 H : TE STED AT [facility] code = 1538) [address] [place] [address], 770 30: [employer]/Techni tressa ID = [id number] for Desin (contract ), Nhi Lab Interpretation (test Abnormal code = 66442-3) [facility]-GLUCOSE [id number] 02:03:00 Test Item Value Reference Range Interpretation Comments POC-GLUCOSE METER 115 mg/dL 70-110 H : TESTED A T [facility] 6720 (BEAKER) (test code = [facility], 1538) [address]: [employer]/Techni tressa ID = [id number] for De sin (contract), Vineet da POCT-GLUCOSE [id number] 21:04:00 Test Item Value Reference Range Interpretation Comments POC-GLUCOSE METER 143 mg/dL 70-110 H : TESTED A T [facility] 6720 (BEAKER) (test code = ROMINA Payne [facility], 1538) [address]: [employer]/Techni tressa ID = [id number] for NEHA OLSON SARS-CoV2/Influenza/RSV RT-PCR (Symptomatic ONLY)2021-04-01 19:00:00 Test Item Value Reference Interpretation Comments Range SARS-COV2/RT-PCR Positive Negative AA The SARS-Co V-2 (test code = target nucleic 27818-5) acids are detec saulo in this specime [...] (test code = [place] [address]-8) not detected in this specimen. Influenza B RT-PCR Negative Negative The Flu B target (test code = [place] 05601-6) not detected in this specimen. RSV by RT-PCR (test Negative Negative The RSV target code = 05792-2) nucleic acid s are not detected in [...] of the Act. Fact Sheet for Healthcare Providers:https://[facility]/Docu ments/Xpert%20Xpres s%20SARS%20CoV-2/Fa ct%20Sheets/302-390 2%94IONT-WTR-1%20HE ALTHCARE%20PROVIDER S%20FACT%20SHEET.pd f Fact Sheet for Healthcare Patients:https://[facility] [employer] [facility]/Docum ents/Xpert%20Xpress %20SARS%20Cov-2/Fac t%20Sheets/302-3801 %64SYTR-ZIA-9%20PAT IENT%20FACT%20SHEET .pdf Lab Interpretation Abnormal (test code = 46244-6) [facility]Symptomatic ONLY) 2021-04-01 19:00:00 Test Item Value Reference Interpretation Comments Range SARS-COV2/RT-PCR Positive Negative AA The SARS-Co V-2 (test code = target nucleic 62704-2) acids are detec saulo in this specime [...] (test code = [place] [address]-7) not detected in this specimen. Influenza B RT-PCR Negative Negative The Flu B target (test code = [place] 75900-2) not detected in this specimen. RSV by RT-PCR (test Negative Negative The RSV target code = 19200-8) nucleic acid s are not detected in [...] SARS-CoV-2/Flu/RSV by their healthcare provider. Results from [facility] Xpert Xpress SARS-CoV-2/Flu/RSV test should be correlated [...] the Act. Fact Sheet for Healthcare Providers:https://[facility]/Docu ments/Xpert%20Xpres s%20SARS%20CoV-2/Fa ct%20Sheets/302-390 2%69YDLR-VKB-8%20HE ALTHCARE%20PROVIDER S%20FACT%20SHEET.pd f Fact Sheet for Healthcare Patients:https://[facility]/Docum ents/Xpert%20Xpress %20SARS%20Cov-2/Fac t%20Sheets/302-3801 %56DKMU-UNS-8%20PAT IENT%20FACT%20SHEET .pdf Lab Interpretation Abnormal (test code = 58957-3) [facility]V [facility] (Symptomatic ONLY) 2021-04-01 19:00:00 Test Item Value Reference Interpretation Comments Range SARS-COV2/RT-PCR Positive Negative AA The SARS-Co V-2 (test code = target nucleic 82755-2) acids are detec saulo in this specime [...] (test code = [place] 09493-9) not detected in this specimen. Influenza B RT-PCR Negative Negative The Flu B target (test code = [place] re 56085-3) not detected in this specimen. RSV by RT-PCR (test Negative Negative The RSV target code = 66227-5) nucleic acid s are not detected in [...] SARS-CoV-2/Flu/RSV by their healthcare provider. Results from [facility] Xpert Xpress SARS-CoV-2/Flu/RSV test should be correlated [...] the Act. Fact Sheet for Healthcare Providers:https://[facility]/Docu ments/Xpert%20Xpres s%20SARS%20CoV-2/Fa ct%20Sheets/302-390 2%83AUTC-KMS-4%20HE ALTHCARE%20PROVIDER S%20FACT%20SHEET.pd f Fact Sheet for Healthcare Patients:https://[employer]/Docum ents/Xpert%20Xpress %20SARS%20Cov-2/Fac t%20Sheets/302-3801 %85IPHU-CKK-4%20PAT IENT%20FACT%20SHEET .pdf Lab Interpretation Abnormal (test code = 64720-5) [facility]ENZA[facility]RSV [id number] 19:00:00 Test Item Value Reference Range Interpretation Comments SARS-COV2/RT-PCR Positive Negative AA The SARS-Co V-2 target (test code = nucleic acids a re 2593768) detected in thi s specimen. The presence [...] individuals teressa pected of COVID-19 by the [facility]. Results from Xpert Xpress SARS-CoV -2 test [...] The RSV ta rget nucleic code = 9528223) acids are no t detected in this [...] SARS-CoV-2/Flu/RSV by their healthcare provider. Results from [facility] Xpert Xpress SARS-CoV-2/Flu/RSV test should be correlated [...] of the Act.Fact Sheet for Healthcare Providers :https://www.[employer]/Documents/Xpert%20Xpress%20SARS%20CoV-2/Fact%20Sheets/3 02-3902%80HSUW-JSB-6%20HEALTHCARE%20PROVIDERS%20FACT%20SHEET.pdfFact Sheet for Healthcare Patients:https://www.[employer] /Documents/Xpert%20Xpress%20SARS%20Cov-2/Fact%20Sheets/302-3801%85IOVW-TJT-7%20P ATIENT%20FACT%20SHEET.pdfUrinalysis w/Microscopic + Reflex to [id number] 17:43:00 Test Item Value Reference Range Interpretation Comments Color, UA (test code Yellow = 5778-6) Clarity, UA (test Hazy code = 5767-9) Specific Minto, UA 1.031 1.001-1.035 (test code = 5811-5) pH, UA (test code = 6.0 5.0-8.0 5803-2) Protein, UA (test 70 mg/dL Negative A code = 04514-7) Glucose, UA (test Negative Negative code = 365) Ketones, UA (test Trace Negative A code = 5124-8) Bilirubin, UA (test Negative Negative code = 15709-1) Blood, UA (test code Moderate Negative A = 46173-3) Nitrite, UA (test Negative Negative code = 5802-4) Leukocytes, UA (test Small Negative A code = 5799-2) Urobilinogen, UA 0.2 mg/dL 0.2-1 (test code = 72776-4) RBC, UA (test code = 27 See_Comment [Autom ated 88184-1) message] The system which generated this result [...] Bacteria, UA (test None Seen code = 54595-7) Mucus (test code = Rare 8247-9) Squam Epithel, UA <1 See_Comment [Automate d (test code = 75245-3) messag e] The system which generated this result transmitted reference range : /HPF. The reference range was not used to interpret this result as normal/abnormal . Hyaline Casts, UA 3 See_Comment [Automate d (test code = 24159-7) messag e] The system which generated this result transmitted reference range : /LPF. The reference range was not used to interpret this result as normal/abnormal . Crystals, Urine (test None Seen code = 83562-0) Yeast (test code = Occasional 62714-2) Specimen Source (test code = 2795) STACY (test code = STACY) [employer] ID - [auto][employer] ID - tech Lab Interpretation Abnormal (test code = 17605-1) [facility]/Microscopic + Reflex to Culture 2021-04-01 17:43:00 Test Item Value Reference Range Interpretation Comments Color, UA (test code Yellow = 5778-6) Clarity, UA (test Hazy code = 5767-9) Specific Minto, UA 1.031 1.001-1.035 (test code = 5811-5) pH, UA (test code = 6.0 5.0-8.0 5803-2) Protein, UA (test 70 mg/dL Negative A code = 49772-6) Glucose, UA (test Negative Negative code = 365) Ketones, UA (test Trace Negative A code = 2514-8) Bilirubin, UA (test Negative Negative code = 33458-6) Blood, UA (test code Moderate Negative A = 22611-5) Nitrite, UA (test Negative Negative code = 5802-4) Leukocytes, UA (test Small Negative A code = 5799-2) Urobilinogen, UA 0.2 mg/dL 0.2-1.0 (test code = 62003-0) RBC, UA (test code = 27 See_Comment [Autom ated 57016-9) message] The system which generated this result [...] Bacteria, UA (test None Seen code = 89632-1) Mucus (test code = Rare 8247-9) Squam Epithel, UA <1 See_Comment [Automate d (test code = 66795-3) messag e] The system which generated this result transmitted reference range : /HPF. The reference range was not used to interpret this result as normal/abnormal . Hyaline Casts, UA 3 See_Comment [Automate d (test code = 03642-0) messag e] The system which generated this result transmitted reference range : /LPF. The reference range was not used to interpret this result as normal/abnormal . Crystals, Urine (test None Seen code = 09435-7) Yeast (test code = Occasional 43533-9) Specimen Source (test code = 2795) STACY (test code = STACY) [employer] ID - [auto][employer] ID - tech Lab Interpretation Abnormal (test code = 40025-4) [facility]/Microscopic + Reflex to Culture 2021-04-01 17:43:00 Test Item Value Reference Range Interpretation Comments Color, UA (test code Yellow = 5778-6) Clarity, UA (test Hazy code = 5767-9) Specific Minto, UA 1.031 1.001-1.035 (test code = 5811-5) pH, UA (test code = 6.0 5.0-8.0 5803-2) Protein, UA (test 70 mg/dL Negative A code = 68142-4) Glucose, UA (test Negative Negative code = 365) Ketones, UA (test Trace Negative A code = 2514-8) Bilirubin, UA (test Negative Negative code = 38304-4) Blood, UA (test code Moderate Negative A = 38739-3) Nitrite, UA (test Negative Negative code = 5802-4) Leukocytes, UA (test Small Negative A code = 5799-2) Urobilinogen, UA 0.2 mg/dL 0.2-1.0 (test code = 88228-6) RBC, UA (test code = 27 See_Comment [Autom ated 52540-6) message] The system which generated this result [...] Bacteria, UA (test None Seen code = 09337-0) Mucus (test code = Rare 8247-9) Squam Epithel, UA <1 See_Comment [Automate d (test code = 78552-2) messag e] The system which generated this result transmitted reference range : /HPF. The reference range was not used to interpret this result as normal/abnormal . Hyaline Casts, UA 3 See_Comment [Automate d (test code = 72655-8) messag e] The system which generated this result transmitted reference range : /LPF. The reference range was not used to interpret this result as normal/abnormal . 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 Metabolic [id number] 17:22:00 Test Item Value Reference Range Interpretation Comments Sodium (test code = 143 meq/L 256-658 2507-2) Potassium (test code = 3.3 meq/L 3.5-5.1 L 2823-3) Chloride (test code = 117 meq/L 98-107 H 2075-0) CO2 (test code = 18 meq/L 22-29 L 2028-9) BUN (test code = 44 mg/dL 7-21 H 3094-0) Creatinine (test code 0.87 mg/dL 0.57-1.25 = 2160-0) Glucose (test code = 170 mg/dL 70-105 H 2345-7) Calcium (test code = 7.4 mg/dL 8.4-10.2 L 97057-4) EGFR (test code = 85 mL/min/1.73 [place] [address]-8) NOT ACCURATE CREATININE CLEARANCE IN PREDICTING GLOMERULAR FILTRATION RATE . ESTIMATED GFR I S NOT APPLICABLE FOR DIALYSIS PATIENTS. STACY (test code = STACY) P[employer] ID - BS Lab Interpretation Abnormal (test code = 03258-4) [facility] Metabolic [id number] 17:22:00 Test Item Value Reference Range Interpretation Comments Sodium (test code = 143 meq/L 074-117 6602-2) Potassium (test code = 3.3 meq/L 3.5-5.1 L 2823-3) Chloride (test code = 117 meq/L 98-107 H 2075-0) CO2 (test code = 18 meq/L 22-29 L 2028-9) BUN (test code = 44 mg/dL 7-21 H 3094-0) Creatinine (test code 0.87 mg/dL 0.57-1.25 = 2160-0) Glucose (test code = 170 mg/dL 70-105 H 2345-7) Calcium (test code = 7.4 mg/dL 8.4-10.2 L 91922-0) EGFR (test code = 85 mL/min/1.73 [place] [address]-4) NOT ACCURATE CREATININE CLEARANCE IN PREDICTING GLOMERULAR FILTRATION RATE . ESTIMATED GFR I S NOT APPLICABLE FOR DIALYSIS PATIENTS. STACY (test code = STACY) [employer] ID - BS Lab Interpretation Abnormal (test code = 60346-7) [facility] Metabolic [id number] 17:22:00 Test Item Value Reference Range Interpretation Comments Sodium (test code = 143 meq/L 016-166 9981-2) Potassium (test code = 3.3 meq/L 3.5-5.1 L 2823-3) Chloride (test code = 117 meq/L 98-107 H 2075-0) CO2 (test code = 18 meq/L 22-29 L 2028-9) BUN (test code = 44 mg/dL 7-21 H 3094-0) Creatinine (test code 0.87 mg/dL 0.57-1.25 = 2160-0) Glucose (test code = 170 mg/dL 70-105 H 2345-7) Calcium (test code = 7.4 mg/dL 8.4-10.2 L 36327-8) EGFR (test code = 85 mL/min/1.73 [place] [address]-3) NOT ACCURATE CREATININE CLEARANCE IN PREDICTING GLOMERULAR FILTRATION RATE . ESTIMATED GFR I S NOT APPLICABLE FOR DIALYSIS PATIENTS. STACY (test code = STACY) [employer] ID - BS Lab Interpretation Abnormal (test code = 01786-0) [facility] [place] METABOLIC [id number] 17:22:00 Test Item Value Reference Range Interpretation [...] S NOT APPLICABLE FOR DIALYSIS PATIEN TS. [employer] ID - BSPOCT-GLUCOSE [id number] 17:03:00 Test Item Value Reference Range Interpretation Comments POC-GLUCOSE METER 161 mg/dL 70-110 H : TESTED A T [facility] 6720 (BEAKER) (test code = ROMINA Y[place], 1538) [address]: Pipe Fitter Welding/Techni tressa ID = [id number] for ASHLEY MATA POCT-GLUCOSE [id number] 11:55:00 Test Item Value Reference Range Interpretation Comments POC-GLUCOSE METER 171 mg/dL 70-110 H : TESTED A T [facility] 6720 (BEAKER) (test code = ROMINA [place], 1538) [address]: Pipe Fitter Welding/Techni tressa ID = [id number] for ASHLEY MATA Vancomycin level, [id number] 11:02:00 Test Item Value Reference Range Interpretation Comments Vancomycin Tr (test code = 19.1 ug/mL 10-20 4092-3) STACY (test code = STACY) [employer] ID - WINNIE C Lab Interpretation (test Normal code = 19261-8) [facility] HospitalVancomycin level, [id number] 11:02:00 Test Item Value Reference Range Interpretation Comments Vancomycin Tr (test code = 19.1 ug/mL 10.0-20.0 4092-3) STACY (test code = STACY) [employer] ID - WINNIE C Lab Interpretation (test Normal code = 07566-9) [facility] HospitalVancomycin level, [id number] 11:02:00 Test Item Value Reference Range Interpretation Comments Vancomycin Tr (test code = 19.1 ug/mL 10.0-20.0 4092-3) STACY (test code = STACY) [employer] ID - WINNIE C Lab Interpretation (test Normal code = 91160-4) [facility] HospitalVANCOMYCIN LEVEL, [id number] 11:02:00 Test Item Value Reference Range Interpretation Comments VANCOMYCIN TROUGH (BEAKER) (test 19.1 ug/mL 10.0-20.0 code = 522) [employer] ID - WINNIE CCreatine Kinase (CK)2021-04-01 06:28:00 Test Item Value Reference Range Interpretation Comments Total CK (test code = 19 U/L 29-200 L 2157-6) STACY (test code = STACY) [employer] ID - MERT L Lab Interpretation (test Abnormal code = 26550-0) [facility] HospitalCreatine Kinase (CK)2021-04-01 06:28:00 Test Item Value Reference Range Interpretation Comments Total CK (test code = 19 U/L 29-200 L 2157-6) STACY (test code = STACY) [employer] ID - METR L Lab Interpretation (test Abnormal code = 36420-0) [facility] HospitalCreatine Kinase (CK)2021-04-01 06:28:00 Test Item Value Reference Range Interpretation Comments Total CK (test code = 19 U/L 29-200 L 2157-6) STACY (test code = STACY) [employer] ID - MERT [place] Lab Interpretation (test Abnormal code = 81483-2) [facility] HospitalBASI METABOLIC [id number] 06:28:00 Test Item Value Reference Range Interpretation [...] S NOT APPLICABLE FOR DIALYSIS PATIEN TS. P[employer] ID - METR LCREATINE KINASE (CK)2021-04-01 06:28:00 Test Item Value Reference Range Interpretation Comments CREATINE KINASE TOTAL (BEAKER) (test 19 U/L 29-200 L code = 380) [employer] ID - MERT LHepatic function [id number] 06:09:00 Test Item Value Reference Range Interpretation [...] 2.1 g/dL 3.5-5 L Specime [place] slightly 25704-9) hemolyzed Total Bilirubin (test 0.4 mg/dL 0.2-1.2 Specim en slightly code = 1974-) hemolyzed Bilirubin, Direct 0.2 mg/dL 0.1-0.5 Specimen s lightly (test code = 1968-01) hemolyz ed Alkaline Phosphatase 54 U/L 40-150 (test code = 6768-6) AST (test code = 54 U/L 5-34 H Specimen sl ightly 1920-8) hemolyzed ALT (test code = 33 U/L 6-55 Specimen sl ightly 1742-6) hemolyzed STACY (test code = STACY) [employer] ID - PIAYA L Lab Interpretation Abnormal (test code = 33532-6) [facility] HospitalPhosphorus2021-09-07 06:09:00 Test Item Value Reference Range Interpretation Comments Phosphorus (test code 2.9 mg/dL 2.3-4.7 Specim en = 2777-1) slightly hemolyzed STACY (test code = STACY) [employer] ID - PIAYA L Lab Interpretation Normal (test code = 24538-9) [facility] HospitalHepatic function [id number] 06:09:00 Test Item Value Reference Range Interpretation [...] 2.1 g/dL 3.5-5.0 L Specime n slightly 30228-1) hemolyzed Total Bilirubin (test 0.4 mg/dL 0.2-1.2 Specim en slightly code = 1974-) hemolyzed Bilirubin, Direct 0.2 mg/dL 0.1-0.5 Specimen s lightly (test code = 1968-01) hemolyz ed Alkaline Phosphatase 54 U/L 40-150 (test code = 6768-6) AST (test code = 54 U/L 5-34 H Specimen sl ightly 1920-8) hemolyzed ALT (test code = 33 U/L 6-55 Specimen sl ightly 1742-6) hemolyzed STACY (test code = STACY) [employer] ID - PIAYA L Lab Interpretation Abnormal (test code = 03154-1) [facility]Ph[facility]2021-09-07 06:09:00 Test Item Value Reference Range Interpretation Comments Phosphorus (test code 2.9 mg/dL 2.3-4.7 Specim en = 2777-1) slightly hemolyzed STACY (test code = STACY) P[employer] ID - CONCEPCIONJONNY L Lab Interpretation Normal (test code = 74949-9) [facility] HospitalHepatic function [id number] 06:09:00 Test Item Value Reference Range Interpretation [...] 2.1 g/dL 3.5-5.0 L Specime n slightly 76097-7) hemolyzed Total Bilirubin (test 0.4 mg/dL 0.2-1.2 [...] 1742-6) hemolyzed STACY (test code = STACY) [employer] ID - PIJONNY L Lab Interpretation Abnormal (test code = 01563-4) [facility]osph[facility]2021-09-07 06:09:00 Test Item Value Reference Range Interpretation Comments Phosphorus (test code 2.9 mg/dL 2.3-4.7 Specim en = 2777-1) slightly hemolyzed STACY (test code = STACY) [employer] ID - PIAYA L Lab Interpretation Normal (test code = 55310-7) [facility] HospitalMAGNESIUM2021-09-07 06:09:00 Test Item Value Reference Range Interpretation Comments MAGNESIUM (BEAKER) 1.5 mg/dL 1.6-2.6 L Specimen slightly (test code = 627) hemolyzed P[employer] ID - PIJONNY [id number] 06:09:00 Test Item Value Reference Range Interpretation Comments PHOSPHORUS (BEAKER) 2.9 mg/dL 2.3-4.7 Specimen slightly (test code = 604) hemolyzed P[employer] ID - PIJONNY LHEPATIC FUNCTION [id number] 06:09:00 Test Item Value Reference Range Interpretation [...] Specimen slightly (test code = 347) hemolyzed P[employer] ID - MERT LC-REACTIVE [id number] 06:09:00 Test Item Value Reference Range Interpretation Comments C-REACTIVE PROTEIN (BEAKER) (test 2.48 mg/dL 0.00-0.50 H code = 676) [employer] ID - PIJONNY LCalcium, [id number] 06:05:00 Test Item Value Reference Range Interpretation Comments Calcium, Ion (test code = 1993-09) 1.11 mmol/L 1.12-1.27 L pH, Blood (test code = 78041-7) 7.37 Lab Interpretation (test code = Abnormal 57189-5) [facility] HospitalCalcium, [id number] 06:05:00 Test Item Value Reference Range Interpretation Comments Calcium, Ion (test code = 1993-09) 1.11 mmol/L 1.12-1.27 L pH, Blood (test code = 06937-3) 7.37 Lab Interpretation (test code = Abnormal 71320-4) [facility] HospitalCalcium, [id number] 06:05:00 Test Item Value Reference Range Interpretation Comments Calcium, Ion (test code = 1993-) 1.11 mmol/L 1.12-1.27 L pH, Blood (test code = 18442-6) 7.37 Lab Interpretation (test code = Abnormal 82138-7) [facility] HospitalCALCIUM, [id number] 06:05:00 Test Item Value Reference Range Interpretation Comments CALCIUM IONIZED (BEAKER) (test 1.11 mmol/L 1.12-1.27 L code = 698) PH, BLOOD (BEAKER) (test code = 7.37 1810) POCT-GLUCOSE [id number] 05:57:00 Test Item Value Reference Range Interpretation Comments POC-GLUCOSE METER 134 mg/dL 70-110 H : TESTED A T [facility] 6720 (BEAKER) (test code = ROMINA [place], 1538) [address]: Pipe [employer]ding/Techni tressa ID = [id number] for KALPANA HANSEN CBC W/PLT COUNT & AUTO [id number] 05:52:00 Test Item Value Reference Range Interpretation [...] PERCENT (BEAKER) (test code = 2801) POCT-GLUCOSE [id number] 23:33:00 Test Item Value Reference Range Interpretation Comments POC-GLUCOSE METER 77 mg/dL 70-110 : TESTED A T [facility] 6720 (BEAKER) (test code = ROMINA Payne [facility], 1538) [address]: Pipe F[employer] Welding/Techni tressa ID = [id number] for Cart er (agency)[employer] 2D Echo W/Doppler(CW/PW/Color)2021-03-31 17:56:10Ejection FractionSLEH ECHO HEARTLAB MKCKESSON CPACSInterface, External Ris In - 03/31/2021 5:56 PM C DTTransthoracic Echocardiography Report (TTE) Demographics Patient Name KEVIN HAMMOND Date of Study 03/30/2021 Gender Male Visit Number [id number] Race Unknown Room Number C628 Number Date of 1945 Referring Physician JD JEFFERSON Age 75 year(s) 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 3. Ffbk-gy-lwuabxiy mitral regurgitation. Previous Study No prior exam [...] regurgitation. Mitral Valve Mild MV leaflet thickening. Jtft-eg-oruxrmlg mitral regurgitation. Tricuspid Valve Trace tricuspid regurgitation. [...] LVOT CO: 5.76 l/min LVOT CI: 2.89 l/min/m^2CSan [facility]2D [facility] W/Doppler(CW/PW/Color)2021-03-31 17:56:10Ejection FractionSLEH ECHO HEARTLAB [facility] Echo W/Doppler(CW/PW/Color) 2021-03-31 17:56:10Ejection FractionSLEH ECHO HEARTLAB [facility] HospitalPOCT-GLUCOSE [id number] 15:39:00 Test Item Value Reference Range Interpretation Comments POC-GLUCOSE METER 81 mg/dL 70-110 : Notified RN/MD: TESTED (BEAKER) (test code AT [facility] [address] = 1538) [place], [address]: Pipe [employer]/Techni tressa ID = [id number] for Jose J (contract), Shola barton [id number] 13:30:00 Test Item Value Reference Range Interpretation Comments MAGNESIUM (BEAKER) (test code = 1.4 mg/dL 1.6-2.6 L 627) P[employer] ID - ERWIN [id number] 13:30:00 Test Item Value Reference Range Interpretation Comments PHOSPHORUS (BEAKER) (test code = 2.3 mg/dL 2.3-4.7 604) Pipe [employer] ID Doron HOOD FHEPATIC FUNCTION [id number] 13:30:00 Test Item Value Reference Range Interpretation [...] (test code = 19 U/L 6-55 347) P[employer] ID Doron HOOD FCOMPREHENSIVE METABOLIC [id number] 13:30:00 Test Item Value Reference Range Interpretation [...] S NOT APPLICABLE FOR DIALYSIS PATIEN TS. Pipe [employer] Welding ID - EARP FVancomycin level, [id number] 13:28:00 Test Item Value Reference Range Interpretation Comments Vancomycin Rm (test 43.6 ug/mL code = 18056-9) STACY (test code = Reference Range: No STACY) NormalsOperator ID - [facility] CenterVancom[facility] level, [id number] 13:28:00 Test Item Value Reference Range Interpretation Comments Vancomycin Rm (test 43.6 ug/mL code = 37269-7) STACY (test code = Reference Range: No STACY) NormalsOperator ID - [facility] CenterVancomycin level, [id number] 13:28:00 Test Item Value Reference Range Interpretation Comments Vancomycin Rm (test 43.6 ug/mL code = 62966-0) STACY (test code = Reference Range: No STACY) NormalsOperator ID - [facility] CenterVANCOMYCIN LEVEL, [id number] 13:28:00 Test Item Value Reference Range Interpretation Comments VANCOMYCIN RANDOM (BEAKER) (test 43.6 ug/mL code = 523) Reference Range: No NormalsOperator ID - ERWIN FCALCIUM, [id number] 13:24:00 Test Item Value Reference Range Interpretation Comments CALCIUM IONIZED (BEAKER) (test 1.09 mmol/L 1.12-1.27 L code = 698) PH, BLOOD (BEAKER) (test code = 7.38 1810) CBC W/PLT COUNT & AUTO [id number] 13:14:00 Test Item Value Reference Range Interpretation [...] PERCENT (BEAKER) (test code = 2801) POCT-GLUCOSE [id number] 12:20:00 Test Item Value Reference Range Interpretation Comments POC-GLUCOSE METER 81 mg/dL 70-110 : Notified RN/MD: TESTED (BEAKER) (test code AT [place] [address] [address] = 1538) [facility], [facility] 30: Pipe Fitter Welding/Techni tressa ID = [id number] for Lux (contract), Shola barton POCT-GLUCOSE [id number] 10:10:00 Test Item Value Reference Range Interpretation Comments POC-GLUCOSE METER 90 mg/dL 70-110 : Notified RN/MD: TESTED (BEAKER) (test code AT [place] [address] [address] = 1538) [facility], [facility] 30: Pipe Fitter Welding/Techni tressa ID = [id number] for Lux (contract), Shola ny RAD, ABDOMEN/KUB, 1 VIEW [id number] 01:44:00For bedside G-tube study. Call radiology for KUB when gastroview, 60 cc syringe, and water for flushing are at the bedside and nursing is ready/Reason for exam:->G-tube studyShould this be performedat the bedside?->Yes [facility] 1945 Sex: MFINAL REPORT EXAM/TECHNIQUE: Supine radiograph of the abdomen. INDICATION: Abdominal radiography from 03/30/2021. COMPARISON: Abdominal radiography from 03/30/2021. FINDINGS: Gastrostomy tube is present there is contrast in the stomach and in the small bowel. No acute osseous process. Impression: Gastrostomy tube is in the stomach in the small bowel. Signed: Galileo Cuello MDReport Verified Date/Time: 03/31/2021 01:44:07 Electronically signed by: GALILEO CUELLO MD on03/31/2021 01:44 AMXR abdomen / KUB 1 [id number] 01:44:00Interface, External Ris In - 03/31/2021 1:47 AM CDTFINAL REPORT EXAM/TECHNIQUE: Supine radiograph of the abdomen. INDICATION: Abdominal radiography from 03/30/2021. COMPARISON: Abdominal radiography from 03/30/2021. FINDINGS: Gastrostomy tube is present there is contrast in the stomach and in the small bowel. No acute osseous process. Impression: Gastrostomy tube is in the stomach in the small bowel. Signed: Galileo Cuello MDReport Verified Date/Time: 03/31/2021 01:44:07 [facility]OLIC [id number] 00:40:00 Test Item Value Reference Range Interpretation [...] S NOT APPLICABLE FOR DIALYSIS PATIEN TS. Pipe [employer]itter Welding ID - DBPOCT-GLUCOSE [id number] 21:42:00 Test Item Value Reference Range Interpretation Comments POC-GLUCOSE METER 117 mg/dL 70-110 H : TESTED A T [facility] 6720 (BEAKER) (test code [facility], = 1538) [address]: Pipe Fitter Welding/Techni tressa ID = [id number] for Kelsie anthony (agency)Marlo POCT-GLUCOSE [id number] 17:39:00 Test Item Value Reference Range Interpretation Comments POC-GLUCOSE METER 140 mg/dL 70-110 H : TESTED A T [facility] 6720 (BEAKER) (test code = ROMINA Payne [facility], 1538) [address]: Pipe Fitter Welding/Techni tressa ID = [id number] for AG JOSE HELMS RAD, ABDOMEN/KUB, 1 VIEW [id number] 17:36:00Reason for exam:->peg placementShould this be performed at the bedside?->Yes [facility] Karma : 1945 Sex: MFINAL REPORT EXAM: [...] MDReport Verified Date/Time: 03/30/2021 17:36:33 Reading Location: [address] Consult Reading Room C METABOLIC [id number] 17:12:00 Test Item Value Reference Range Interpretation [...] S NOT APPLICABLE FOR DIALYSIS PATIEN TS. Pipe [employer] Welding ID - DBPOCT-GLUCOSE [id number] 13:04:00 Test Item Value Reference Range Interpretation Comments POC-GLUCOSE METER 101 mg/dL 70-110 : TESTED A T [facility] 6720 (BEAKER) (test code = ROMINA [place], 1538) [address]: Pipe Fitter Welding/Techni tressa ID = [id number] for AG JOSE HELMS U/S, RENAL, [id number] 11:52:00Reason for exam:->akiShould this be performed at the bedside?->Yes [facility] : 1945 Sex: MFINAL [...] MDReport Verified Date/Time: 03/30/2021 11:52:42 Reading Location: [address] Consult Reading Room US renal [id number] 11:52:00Interface, External Ris In - 03/30/2021 11:54 [...] MDReport Verified Date/Time: 03/30/2021 11:52:42 Reading Location: [address] Consult Reading Room [facility] METABOLIC [id number] 10:57:00 Test Item Value Reference Range Interpretation [...] S NOT APPLICABLE FOR DIALYSIS PATIEN TS. Pipe Fitter Welding ID - AAHAMIDVETER[facility] METABOLIC [id number] 05:59:00 Test Item Value Reference Range Interpretation [...] S NOT APPLICABLE FOR DIALYSIS PATIEN TS. Pipe Fitter Welding ID - DBCREATINE KINASE (CK)2021-03-30 05:40:00 Test Item Value Reference Range Interpretation Comments CREATINE KINASE TOTAL (BEAKER) (test 43 U/L 29-200 code = 380) Pipe Fitter Welding ID - [id number] 05:33:00 Test Item Value Reference Range Interpretation Comments MAGNESIUM (BEAKER) (test code = 1.4 mg/dL 1.6-2.6 L 627) Pipe Fitter Welding ID - [id number] 05:33:00 Test Item Value Reference Range Interpretation Comments PHOSPHORUS (BEAKER) (test code = 1.6 mg/dL 2.3-4.7 L 604) Pipe Fitter Welding ID - DBHEPATIC FUNCTION [id number] 05:33:00 Test Item Value Reference Range Interpretation [...] (test code = 8 U/L 6-55 347) Pipe Fitter Welding ID - DBCREATINE KINASE (CK)2021-03-30 05:33:00 Test Item Value Reference Range Interpretation Comments CREATINE KINASE TOTAL (BEAKER) (test 42 U/L 29-200 code = 380) Pipe Fitter Welding ID - DBC-REACTIVE [id number] 05:33:00 Test Item Value Reference Range Interpretation Comments C-REACTIVE PROTEIN (BEAKER) (test 10.11 mg/dL 0.00-0.50 H code = 676) Pipe Fitter Welding ID - DBCALCIUM, [id number] 05:19:00 Test Item Value Reference Range Interpretation Comments CALCIUM IONIZED (BEAKER) (test 1.08 mmol/L 1.12-1.27 L code = 698) PH, BLOOD (BEAKER) (test code = 7.38 1810) POCT-GLUCOSE [id number] 05:14:00 Test Item Value Reference Range Interpretation Comments POC-GLUCOSE METER 127 mg/dL 70-110 H : TESTED A T [facility] 6720 (BEAKER) (test code [facility], = 1538) [address]: Pipe Fitter Welding/Techni tressa ID = [id number] for Kelsie anthony (agency)Marlo CBC W/PLT COUNT & AUTO [id number] 05:03:00 Test Item Value Reference Range Interpretation [...] PERCENT (BEAKER) (test code = 2801) POCT-GLUCOSE [id number] 23:51:00 Test Item Value Reference Range Interpretation Comments POC-GLUCOSE METER 135 mg/dL 70-110 H : TESTED A T [facility] 6720 (BEAKER) (test code [facility], = 1538) [address]: Pipe Fitter Welding/Techni tressa ID = [id number] for Kelsie anthony (agency)Marlo Creatinine, random [id number] 22:56:00 Test Item Value Reference Range Interpretation Comments Creatinine, Ur 88.5 mg/dL (test code = 2161-8) STACY (test code = Reference Range: No STACY) NormalsOperator ID - DB [facility] Centerodium, random [id number] 22:56:00 Test Item Value Reference Range Interpretation Comments Sodium Urine (test 80 meq/L code = 2955-3) STACY (test code = Reference Range: No STACY) NormalsOperator ID - DB [facility] HospitalCreatinine, random [id number] 22:56:00 Test Item Value Reference Range Interpretation Comments Creatinine, Ur 88.5 mg/dL (test code = 2161-8) STACY (test code = Reference Range: No STACY) NormalsOperator ID - DB [facility] Centerodium, random [id number] 22:56:00 Test Item Value Reference Range Interpretation Comments Sodium Urine (test 80 meq/L code = 2955-3) STACY (test code = Reference Range: No STACY) NormalsOperator ID - DB [facility] HospitalCreatinine, random [id number] 22:56:00 Test Item Value Reference Range Interpretation Comments Creatinine, Ur 88.5 mg/dL (test code = 2161-8) STACY (test code = Reference Range: No STACY) NormalsOperator ID - DB [facility] Centerodium, random [id number] 22:56:00 Test Item Value Reference Range Interpretation Comments Sodium Urine (test 80 meq/L code = 2955-3) STACY (test code = Reference Range: No STACY) NormalsOperator ID - DB [facility] HospitalCREATININE, RANDOM [id number] 22:56:00 Test Item Value Reference Range Interpretation Comments CREATININE URINE (BEAKER) (test 88.5 mg/dL code = 375) Reference Range: No NormalsOperator ID - DBSODIUM, RANDOM [id number] 22:56:00 Test Item Value Reference Range Interpretation Comments SODIUM URINE (BEAKER) (test code = 80 meq/L 243) Reference Range: No NormalsOperator ID - DBOsmolality, [id number] 22:15:00 Test Item Value Reference Range Interpretation Comments Osmolality Serum (test 344 See_Comment H [Aut omated message] code = 2692-2) The system [employer] generated this result transmitted ref erence range: 275 - 29 5 mOsm/kg. The reference range was not used to int erpret this result as normal/abnormal . Lab Interpretation (test Abnormal code = 77528-2) [facility] HospitalOsmolality, [id number] 22:15:00 Test Item Value Reference Range Interpretation Comments Osmolality Serum (test 344 See_Comment H [Aut omated message] code = 2692-2) The system [employer] generated this result transmitted ref erence range: 275 - 29 5 mOsm/kg. The reference range was not used to int erpret this result as normal/abnormal . Lab Interpretation (test Abnormal code = 56619-9) Motion [facility] HospitalOsmolality, [id number] 22:15:00 Test Item Value Reference Range Interpretation Comments Osmolality Serum (test 344 See_Comment H [Aut omated message] code = 2692-2) The system [employer] generated this result transmitted ref erence range: 275 - 29 5 mOsm/kg. The reference range was not used to int erpret this result as normal/abnormal . Lab Interpretation (test Abnormal code = 54594-3) [facility] HospitalOSMOLATY, [id number] 22:15:00 Test Item Value Reference Range Interpretation Comments OSMOLALITY, SERUM (BEAKER) (test 344 mOsm/kg 275-295 H code = 615) BASIC METABOLIC [id number] 22:15:00 Test Item Value Reference Range Interpretation [...] S NOT APPLICABLE FOR DIALYSIS PATIEN TS. [employer] ID - DBOsmolality, [id number] 22:10:00 Test Item Value Reference Range Interpretation Comments Osmolality, Ur (test code 769 See_Comment [ Automated message] = 2695-5) The system [employer] generated this result transmitted ref erence range: 50-1,200 mOsm/kg mOsm/kg . The reference range was not used to int erpret this result as normal/abnormal . Lab Interpretation (test Normal code = 41972-9) [facility] HospitalOsmolality, [id number] 22:10:00 Test Item Value Reference Range Interpretation Comments Osmolality, Ur (test code 769 See_Comment [ Automated message] = 2695-5) The system [employer] generated this result transmitted ref erence range: 50-1,200 mOsm/kg mOsm/kg . The reference range was not used to int erpret this result as normal/abnormal . Lab Interpretation (test Normal code = 92437-5) [facility] HospitalOsmolality, [id number] 22:10:00 Test Item Value Reference Range Interpretation Comments Osmolality, Ur (test code 769 See_Comment [ Automated message] = 2695-5) The system [employer] generated this result transmitted ref erence range: 50-1,200 mOsm/kg mOsm/kg . The reference range was not used to int erpret this result as normal/abnormal . Lab Interpretation (test Normal code = 11243-3) [facility] HospitalOSMOLALITY, [id number] 22:10:00 Test Item Value Reference Range Interpretation Comments OSMOLALITY URINE 769 mOsm/kg See_Comment [Automated message] (BEAKER) (test code = The sy stem which 614) generated this result transmitted ref erence range: 50-1,200 mOsm/kg. The reference range was not used to int erpret this result as normal/abnormal . Protein, random [id number] 18:44:00 Test Item Value Reference Range Interpretation Comments Protein, Urine (test code = <68 0-14 H 2888-6) STACY (test code = STACY) [employer] ID - DB Lab Interpretation (test Abnormal code = 91756-5) [facility] HospitalProtein, random [id number] 18:44:00 Test Item Value Reference Range Interpretation Comments Protein, Urine (test code = <68 0-14 H 2888-6) STACY (test code = STACY) [employer] ID - DB Lab Interpretation (test Abnormal code = 53488-8) [facility] HospitalProtein, random [id number] 18:44:00 Test Item Value Reference Range Interpretation Comments Protein, Urine (test code = <68 0-14 H 2888-6) STACY (test code = STACY) [employer] ID - DB Lab Interpretation (test Abnormal code = 76301-0) [facility] [place] [id number] 18:44:00 Test Item Value Reference Range Interpretation Comments PROTEIN, URINE (BEAKER) (test code = < mg/dL 0-14 H 1569) [employer] ID - DBCREATININE, RANDOM [id number] 18:22:00 Test Item Value Reference Range Interpretation Comments CREATININE URINE (BEAKER) (test 105.0 mg/dL code = 375) Reference Range: No NormalsOperator ID - DBSODIUM, RANDOM [id number] 18:22:00 Test Item Value Reference Range Interpretation Comments SODIUM URINE (BEAKER) (test code = 47 meq/L 243) Reference Range: No NormalsOperator ID - DBOSMOLALITY, [id number] 18:03:00 Test Item Value Reference Range Interpretation Comments OSMOLALITY URINE 662 mOsm/kg See_Comment [Automated message] (BEAKER) (test code = The sy stem which 614) generated this result transmitted ref erence range: 50-1,200 mOsm/kg. The reference range was not used to int erpret this result as normal/abnormal . POCT-GLUCOSE [id number] 17:36:00 Test Item Value Reference Range Interpretation Comments POC-GLUCOSE METER 146 mg/dL 70-110 H : TESTED A T [facility] 6720 (BEAKER) (test code = ROMINA [place], 1538) [address]: [employer]/Techni tressa ID = [id number] for Analisa monroy (contract)Yuli sloan BASIC METABOLIC [id number] 17:08:00 Test Item Value Reference Range Interpretation [...] S NOT APPLICABLE FOR DIALYSIS PATIEN TS. [employer] ID - AAHAMIDValproic acid level, [id number] 17:07:00 Test Item Value Reference Range Interpretation Comments Valproic Acid, Total <2 50-100 L (test code = 4086-5) STACY (test code = STACY) Therapeutic range for some clinical conditions may be >100 ug/mLOperator ID - AAHAMID Lab Interpretation (test Abnormal code = 90304-5) [facility] HospitalPhenytoin level, [id number] 17:07:00 Test Item Value Reference Range Interpretation Comments Phenytoin (test code = <0.5 10-20 L 3968-5) STACY (test code = STACY) [employer] ID - AAHAMID Lab Interpretation (test Abnormal code = 85838-8) [facility] HospitalValproic acid level, [id number] 17:07:00 Test Item Value Reference Range Interpretation Comments Valproic Acid, Total <2 50-100 L (test code = 4086-5) STACY (test code = STACY) Therapeutic range for some clinical conditions may be >100 ug/mLOperator ID - AAHAMID Lab Interpretation (test Abnormal code = 44499-6) [facility] HospitalPhenytoin level, [id number] 17:07:00 Test Item Value Reference Range Interpretation Comments Phenytoin (test code = <0.5 10.0-20.0 L 3968-5) STACY (test code = STACY) [employer] ID - AAHAMID Lab Interpretation (test Abnormal code = 35916-1) [facility] HospitalValproic acid level, [id number] 17:07:00 Test Item Value Reference Range Interpretation Comments Valproic Acid, Total <2 50-100 L (test code = 4086-5) STACY (test code = STACY) Therapeutic range for some clinical conditions may be >100 ug/mLOperator ID - AAHAMID Lab Interpretation (test Abnormal code = 39443-7) [facility] HospitalPhenytoin level, [id number] 17:07:00 Test Item Value Reference Range Interpretation Comments Phenytoin (test code = <0.5 10.0-20.0 L 3968-5) STACY (test code = STACY) [employer] ID - AAHAMID Lab Interpretation (test Abnormal code = 80210-2) [facility] HospitalVALPROIC ACID LEVEL, [id number] 17:07:00 Test Item Value Reference Range Interpretation Comments VALPROIC ACID TOTAL (BEAKER) (test < ug/mL 50-100 L code = 924) Therapeutic range for some clinical conditions may be >100 ug/mLOperator ID - AAHAMIDPHENYTOIN LEVEL, [id number] 17:07:00 Test Item Value Reference Range Interpretation Comments PHENYTOIN (DILANTIN) (BEAKER) (test < ug/mL 10.0-20.0 L code = 605) [employer] ID - AAHAMIDBASIC METABOLIC [id number] 13:35:00 Test Item Value Reference Range Interpretation [...] S NOT APPLICABLE FOR DIALYSIS PATIEN TS. [employer] ID - AAHAMIDPOCT-GLUCOSE [id number] 12:55:00 Test Item Value Reference Range Interpretation Comments POC-GLUCOSE METER 113 mg/dL 70-110 H : TESTED A T [facility] 6720 (BEAKER) (test code = ROMINA GARNET[place], 1538) [address]: [employer]/Techni tressa ID = [id number] for Analisa monroy (contract)Yuli BASIC METABOLIC [id number] 10:00:00 Test Item Value Reference Range Interpretation [...] S NOT APPLICABLE FOR DIALYSIS PATIEN TS. [employer] ID - AAHAMIDB-type Natriuretic Factor (BNP)2021-03-29 09:49:00 Test Item Value Reference Range Interpretation Comments BNP (test code = 02154-9) 315 pg/mL 0-100 H STACY (test code = STACY) [employer] ID - AAHAMID Lab Interpretation (test Abnormal code = 21630-2) [facility] HospitalB-type Natriuretic Factor (BNP)2021-03-29 09:49:00 Test Item Value Reference Range Interpretation Comments BNP (test code = 36583-3) 315 pg/mL 0-100 H STACY (test code = STACY) [employer] ID - AAHAMID Lab Interpretation (test Abnormal code = 12381-2) [facility] HospitalB-type Natriuretic Factor (BNP)2021-03-29 09:49:00 Test Item Value Reference Range Interpretation Comments BNP (test code = 71860-3) 315 pg/mL 0-100 H STACY (test code = STACY) [employer] ID - AAHAMID Lab Interpretation (test Abnormal code = 20164-9) [facility] HospitalB-TYPE NATRIURETIC FACTOR (BNP)2021-03-29 09:49:00 Test Item Value Reference Range Interpretation Comments B-TYPE NATRIURETIC PEPTIDE (BEAKER) 315 pg/mL 0-100 H (test code = 700) [employer] ID - AAPRASHANTHVANCOMYCIN LEVEL, [id number] 09:45:00 Test Item Value Reference Range Interpretation Comments VANCOMYCIN RANDOM (BEAKER) (test 6.7 ug/mL code = 523) Reference Range: No NormalsOperator ID - AASTEPHANYIDManual [id number] 07:17:00 Test Item Value Reference Range Interpretation [...] = 3438) STACY (test code = STACY) [employer] ID - Daisy Franklin comments: Slide comments: Lab Interpretation Abnormal (test code = 66824-0) [facility] [id number] 07:17:00 Test Item Value Reference Range Interpretation [...] = 3438) STACY (test code = STACY) [employer] ID - Daisy AmparoterUser comments: Slide comments: Lab Interpretation Abnormal (test code = 86247-2) [facility] [id number] 07:17:00 Test Item Value Reference Range Interpretation [...] = 3438) STACY (test code = STACY) [employer] ID - Daisy Franklin comments: Slide comments: Lab Interpretation Abnormal (test code = 27249-9) [facility] W/PLT COUNT & AUTO [id number] 07:17:00 Test Item Value Reference Range Interpretation [...] CONCENTRATION Adequate (CELLAVISION)(BEAKER) (test code = 3438) [employer] ID - Daisy Franklin comments: Slide comments:TSH/Free T4 If [id number] 06:43:00 Test Item Value Reference Range Interpretation Comments TSH (test code = 1.408 See_Comment [Automated [employer]) message] The system which generated this result transmit saulo reference range : 0.350 - 4.940 uIU/mL. The reference range was not used to interpret this result as normal/abnormal . STACY (test code = STACY) [employer] ID - AME White Lab Interpretation Normal (test code = 22923-9) [facility] HospitalTSH/Free T4 If [id number] 06:43:00 Test Item Value Reference Range Interpretation Comments TSH (test code = 1.408 See_Comment [Automated 89782-9) message] The system which generated this result transmit saulo reference range : 0.350 - 4.940 uIU/mL. The reference range was not used to interpret this result as normal/abnormal . STACY (test code = STACY) [employer] ID - AME M Lab Interpretation Normal (test code = 11832-0) [facility] T4 If [id number] 06:43:00 Test Item Value Reference Range Interpretation Comments TSH (test code = 1.408 See_Comment [Automated 68096-3) message] The system which generated this result transmit saulo reference range : 0.350 - 4.940 uIU/mL. The reference range was not used to interpret this result as normal/abnormal . STACY (test code = STACY) [employer] ID - AME M Lab Interpretation Normal (test code = 70473-3) [facility]/FREE T4 IF [id number] 06:43:00 Test Item Value Reference Range Interpretation Comments THYROID STIMULATING HORMONE 1.408 uIU/mL 0.350-4.940 (BEAKER) (test code = 772) [employer] ID - AME MBASIC METABOLIC [id number] 06:03:00 Test Item Value Reference Range Interpretation [...] S NOT APPLICABLE FOR DIALYSIS PATIEN TS. [employer] ID - DBURINALYSIS W/ REFLEX URINE [id number] 03:52:00 Test Item Value Reference Range Interpretation [...] = 1521) SOURCE(BEAKER) (test code = 2795) [employer] ID - [auto][employer] ID - techLactic acid, [id number] 23:23:00 Test Item Value Reference Range Interpretation Comments Lactate, Venous (test code = 1.97 mmol/L 0.5-2.2 2872) STACY (test code = STACY) [employer] ID - DB Lab Interpretation (test Normal code = 76540-0) [facility] HospitalLactic acid, [id number] 23:23:00 Test Item Value Reference Range Interpretation Comments Lactate, Venous (test code = 1.97 mmol/L 0.50-2.20 2872) STACY (test code = STACY) [employer] ID - DB Lab Interpretation (test Normal code = 96622-5) [facility] HospitalLactic acid, [id number] 23:23:00 Test Item Value Reference Range Interpretation Comments Lactate, Venous (test code = 1.97 mmol/L 0.50-2.20 2872) STACY (test code = STACY) [employer] ID - DB Lab Interpretation (test Normal code = 08370-7) [facility] HospitalLACTIC ACID, [id number] 23:23:00 Test Item Value Reference Range Interpretation Comments LACTATE BLOOD VENOUS (2) (BEAKER) 1.97 mmol/L 0.50-2.20 (test code = 2872) [employer] ID - [id number] 23:21:00 Test Item Value Reference Range Interpretation [...] exclusion of thrombosis is within 95-100% range. PT/[id number] 23:19:00 Test Item Value Reference Interpretation Comments Range Protime (test code = 17.6 See_Comment H [Autom ated 9862-2) message] The system which generated this result transmitted reference range : 11.9 - 14.2 seconds. The reference range was not used to interpret this result as normal/abnormal . INR (test code = 1.47 See_Comment [Automated 8341-6) message] The system which generated this result transmitted reference range : <=5.90. The reference range was not used to interpret this result as normal/abnormal . PTT (test code = 35.1 See_Comment [Automated 98478-4) message] The system which generated this result [...] valves. Lab Interpretation Abnormal (test code = 32543-1) [facility] HospitalPT/[id number] 23:19:00 Test Item Value Reference Interpretation Comments Range Protime (test code = 17.6 See_Comment H [Autom ated 5902-2) message] The system which generated this result transmitted reference range : 11.9 - 14.2 seconds. The reference range was not used to interpret this result as normal/abnormal . INR (test code = 1.47 See_Comment [Automated 6301-6) message] The system which generated this result transmitted reference range : <=5.90. The reference range was not used to interpret this result as normal/abnormal . PTT (test code = 35.1 See_Comment [Automated 78790-8) message] The system which generated this result [...] valves. Lab Interpretation Abnormal (test code = 57024-1) [facility] HospitalPT/[id number] 23:19:00 Test Item Value Reference Interpretation Comments Range Protime (test code = 17.6 See_Comment H [Autom ated 5902-2) message] The system which generated this result transmitted reference range : 11.9 - 14.2 seconds. The reference range was not used to interpret this result as normal/abnormal . INR (test code = 1.47 See_Comment [Automated 6301-6) message] The system which generated this result transmitted reference range : <=5.90. The reference range was not used to interpret this result as normal/abnormal . PTT (test code = 35.1 See_Comment [Automated 06782-1) message] The system which generated this result [...] valves. Lab Interpretation Abnormal (test code = 34274-8) [facility] HospitalPT/[id number] 23:19:00 Test Item Value Reference Range Interpretation [...] for patients with mechanical heart valves.COMPREHENSIVE METABOLIC [id number] 23:14:00 Test Item Value Reference Range Interpretation [...] S NOT APPLICABLE FOR DIALYSIS PATIEN TS. [employer] ID - DBBlood gas, [id number] 23:12:00 Test Item Value Reference Range Interpretation Comments pH, Arterial (test code 7.52 7.35-7.45 H = 2744-1) pCO2, Arterial (test 28 See_Comment L [Autom ated message] code = 2019-8) The system [employer] generated this result transmit saulo reference range : 35 - 45 mm Hg. The reference range was not used to interpret this result as normal/abnormal . pO2, Arterial (test 186 See_Comment H [Automa saulo message] code = 2703-7) The system [employer] generated this result transmit saulo reference range [...] 44 Lab Interpretation Abnormal (test code = 05242-8) [facility] HospitalBlood gas, [id number] 23:12:00 Test Item Value Reference Range Interpretation Comments pH, Arterial (test code 7.52 7.35-7.45 H = 2744-1) pCO2, Arterial (test 28 See_Comment L [Autom ated message] code = 2019-) The system [employer] generated this result transmit saulo reference range : 35 - 45 mm Hg. The reference range was not used to interpret this result as normal/abnormal . pO2, Arterial (test 186 See_Comment H [Automa saulo message] code = 2703-7) The system [employer] generated this result transmit saulo reference range [...] 44 Lab Interpretation Abnormal (test code = 23251-5) [facility] HospitalBlood gas, [id number] 23:12:00 Test Item Value Reference Range Interpretation Comments pH, Arterial (test code 7.52 7.35-7.45 H = 2744-1) pCO2, Arterial (test 28 See_Comment L [Autom ated message] code = 2019-02) The system [employer] generated this result transmit saulo reference range : 35 - 45 mm Hg. The reference range was not used to interpret this result as normal/abnormal . pO2, Arterial (test 186 See_Comment H [Automa saulo message] code = 2703-7) The system [employer] generated this result transmit saulo reference range [...] 44 Lab Interpretation Abnormal (test code = 01243-5) [facility] HospitalBLOOD GAS, [id number] 23:12:00 Test Item Value Reference Range Interpretation [...] (BEAKER) (test code = 1819) 44.0 CALCIUM, [id number] 23:12:00 Test Item Value Reference Range Interpretation Comments CALCIUM IONIZED (BEAKER) (test 1.08 mmol/L 1.12-1.27 L code = 698) PH, BLOOD (BEAKER) (test code = 7.51 1810) [id number] 23:10:00 Test Item Value Reference Range Interpretation Comments MAGNESIUM (BEAKER) 1.8 mg/dL 1.6-2.6 Specimen slightly (test code = 627) hemolyzed [employer] ID - [id number] 23:10:00 Test Item Value Reference Range Interpretation Comments PHOSPHORUS (BEAKER) 2.8 mg/dL 2.3-4.7 Specimen slightly (test code = 604) hemolyzed [employer] ID - DBCREATINE KINASE (CK)2021-03-28 23:10:00 Test Item Value Reference Range Interpretation Comments CREATINE KINASE TOTAL (BEAKER) (test 23 U/L 29-200 L code = 380) [employer] ID - DBC-REACTIVE [id number] 23:10:00 Test Item Value Reference Range Interpretation Comments C-REACTIVE PROTEIN (BEAKER) (test 14.35 mg/dL 0.00-0.50 H code = 676) [employer] ID - DBCBC (Hemogram only)2021-03-28 23:08:00 Test Item Value Reference Range Interpretation Comments WBC (test code = 6690-2) 11.6 See_Comment H [A utomated message] The system [employer] generated this result transmitted ref erence range: 3.5 - 10 .5 K/L. The refe rence range was not u sed to interpret this result as normal/abnor mal. RBC (test code = 789-8) 3.69 See_Comment L [Au tomated message] The system [employer] generated this result transmitted ref erence range: 4.63 - 6 .08 M/L. The refe rence range was not u sed to interpret this result as normal/abnor mal. MCHC (test code = 786-4) 29.6 See_Comment L [A utomated message] The system [employer] generated this result transmitted ref erence range: [...] See_Comment [Aut omated message] 777-3) The system [employer] generated this result transmitted ref erence range: 150 - 45 0 K/CU MM. The referen ce range was not u sed to interpret this result as normal/abnor mal. MPV (test code = 10.5 fL 9.4-12.4 82431-3) nRBC (test code = 413) 0 See_Comment [Aut omated message] The system [employer] generated this result transmitted ref erence range: 0 - 0 /1 00 WBC. The refere nce range was not u sed to interpret this result as normal/abnor mal. Lab Interpretation (test Abnormal code = 02287-2) [facility] (Hemogram only)2021-03-28 23:08:00 Test Item Value Reference Range Interpretation Comments WBC (test code = 6690-2) 11.6 See_Comment H [A utomated message] The system [employer] generated this result transmitted ref erence range: 3.5 - 10 .5 K/L. The refe rence range was not u sed to interpret this result as normal/abnor mal. RBC (test code = 789-8) 3.69 See_Comment L [Au tomated message] The system [employer] generated this result transmitted ref erence range: 4.63 - 6 .08 M/L. The refe rence range was not u sed to interpret this result as normal/abnor mal. MCHC (test code = 786-4) 29.6 See_Comment L [A utomated message] The system [employer] generated this result transmitted ref erence range: [...] See_Comment [Aut omated message] 777-3) The system [employer] generated this result transmitted ref erence range: 150 - 45 0 K/CU MM. The referen ce range was not u sed to interpret this result as normal/abnor mal. MPV (test code = 10.5 fL 9.4-12.4 35036-3) nRBC (test code = 413) 0 See_Comment [Aut omated message] The system [employer] generated this result transmitted ref erence range: 0 - 0 /1 00 WBC. The refere nce range was not u sed to interpret this result as normal/abnor mal. Lab Interpretation (test Abnormal code = 30307-9) [facility] (Hemogram only)2021-03-28 23:08:00 Test Item Value Reference Range Interpretation Comments WBC (test code = 6690-2) 11.6 See_Comment H [A utomated message] The system [employer] generated this result transmitted ref erence range: 3.5 - 10 .5 K/L. The refe rence range was not u sed to interpret this result as normal/abnor mal. RBC (test code = 789-8) 3.69 See_Comment L [Au tomated message] The system [employer] generated this result transmitted ref erence range: 4.63 - 6 .08 M/L. The refe rence range was not u sed to interpret this result as normal/abnor mal. MCHC (test code = 786-4) 29.6 See_Comment L [A utomated message] The system [employer] generated this result transmitted ref erence range: [...] See_Comment [Aut omated message] 777-3) The system [employer] generated this result transmitted ref erence range: 150 - 45 0 K/CU MM. The referen ce range was not u sed to interpret this result as normal/abnor mal. MPV (test code = 10.5 fL 9.4-12.4 16374-4) nRBC (test code = 413) 0 See_Comment [Aut omated message] The system [employer] generated this result transmitted ref erence range: 0 - 0 /1 00 WBC. The refere nce range was not u sed to interpret this result as normal/abnor mal. Lab Interpretation (test Abnormal code = 67527-0) [facility] (HEMOGRAM ONLY)2021-03-28 23:08:00 Test Item Value Reference [...] code = 413) RAD, ABDOMEN/KUB, 1 VIEW [id number] 22:32:00Reason for exam:->PEG tubeReason for exam:->[facility]ended [facility] 1945 Sex: MFINAL REPORT TECHNIQUE: One view of the abdomen. INDICATION: 75-year-old man with gastrostomy tube and distended abdomen. COMPARISON: None. IMPRESSION:Gastrostomy tube terminates over the expected region of the distal stomach. Intact laparoscopic gastric band in place. Nonobstructive bowel gas pattern. No acute osseous abnormality. Soft tissues are unremarkable. Signed: Lacey Barretteport Verified Date/Time: 03/28/2021 22:32:51 Reading Location: [address] ConsultReading Room RAD, CHEST, 1 VIEW, NON [id number] 22:25:00Reason for exam:->[facility]OVID [facility] : 1945 Sex: [...] 22:25:25 XR chest 1 view portable / [id number] 22:25:00Interface, External Ris In - 03/28/2021 10:27 [...] by: SASHA WONG MD on 03/28/2021 10:25 [facility] 10:13:00 Test Item Value Reference Range Interpretation Comments AMMONIA (test code = AMM) 93 umol/L 11-32 H
--- NOTE | 2021-04-07 07:41 | EDPHYS ---
Physician Documentation [facility] Name: Zbigniew Mitchell Age: 75 yrs Sex: Male : 1945 Arrival Date: 04/07/2021 Time: 07:00 Bed 6 Private MD: ED Physician Mike Garcia HPI: 04/07 07:31 This 75 yrs old Male presents to ER via EMS with complaints of Gastrostomy jr8 complication. 07:31 This is a 75-year-old male patient that was brought in by EMS for further evaluation of jr8 leaking gastrostomy tube. Per nursing staff here EMS had related that the assisted was concerned that they saw feces in the tube and that he is not taking his meds. Patient is alert to person place upon arrival. No obvious pain at this time. Currently without complaints at this time. Patient recently seen twice within the last couple days for similar issues. Patient was worked up extensively both times and had blood work and CT scans without acute findings.. Severity of symptoms: At their worst the symptoms were mild in the emergency department the symptoms are unchanged. It is unknown whether or not the patient has had similar symptoms in the past. The patient has been recently seen by a physician:. Historical: - Allergies: 07:06 PENICILLINS; lp1 - Home Meds: 07:06 Aricept 10 mg Oral tab 1 tab nightly [Active]; Aspercreme (lidocaine) 4 % Topical ptmd lp1 daily [Active]; Depakote ER 500 mg Oral Tb24 2 tabs nightly [Active]; Dilantin 100 mg Oral 2 tab twice a day [Active]; docusate sodium 100 mg Oral cap 2 times per day [Active]; Eliquis 2.5 mg Oral tab 1 tab 2 times per day [Active]; Eliquis 5 mg Oral tab 0.5 tab 2 times per day [Active]; famotidine 20 mg Oral tab every 12 hours [Active]; folic acid 1 mg Oral tab 1 tab once daily [Active]; furosemide 20 mg Oral tab 1 tab once daily [Active]; hydroxyzine HCl 25 mg Oral tab BID [Active]; magnesium oxide 400 mg magnesium Oral cap twice a day [Active]; megestrol 400 mg/10 mL (10 mL) Oral susp once daily [Active]; metoprolol tartrate 25 mg Oral tab 1 tab 2 times per day [Active]; Miralax 17 gram Oral pwpk 1 packet once daily [Active]; mupirocin 2 % Topical oint twice daily [Active]; Neurontin 100 mg Oral cap 3 times per day [Active]; nitroglycerin 0.4 mg Oral cpER PRN [Active]; [place] 5-325 mg Oral tab Q8H for Pain [Active]; Norvasc 2.5 mg Oral tab 1 tab twice a day [Active]; omeprazole 20 mg Oral cpDR 1 cap once daily [Active]; potassium chloride 10 mEq Oral cpER 1 cap once daily [Active]; Prozac 40 mg Oral cap 1 cap once daily [Active]; Synthroid 150 mcg Oral tab 1 tab once daily [Active]; trazodone 100 mg Oral tab 1 tab at bedtime [Active]; valproic acid 250 mg Oral cap twice daily [Active]; Vitamin C 500 mg Oral tab 500 mg daily [Active]; Vitamin D Oral 2000 unit daily [Active]; zinc sulfate 220 mg Oral cap daily [Active]; - PMHx: 07:06 Atrial Fib; Bipolar disorder; Bronchitis; Cervicalgia; Chronic pain; constipation; 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 07:31 Skin: Positive for rash. 07:31 All other systems are negative. jr8 Exam: 07:31 Constitutional: This is a well developed, well nourished patient who is awake, alert, jr8 and in no acute distress. Cardiovascular: Regular rate and rhythm with a normal S1 and S2. No gallops, murmurs, or rubs. Normal PMI, no JVD. No pulse deficits. Respiratory: Lungs have equal breath sounds bilaterally, clear to auscultation and percussion. No rales, rhonchi or wheezes noted. No increased work of breathing, no retractions or nasal flaring. MS/ Extremity: Pulses equal, no cyanosis. Neurovascular intact. Full, normal range of motion. Neuro: Awake and alert, GCS 15, oriented to person, place. Cranial nerves II-XII grossly intact. Motor strength 5/5 in all extremities. Sensory grossly intact. 07:31 Abdomen/GI: Inspection: Patient has gastrostomy tube placed. Patent and in good position upon exam. Small amount of gastric content seeping from stoma site. Patient has ulcerations around the skin with mild erythema surrounding secondary to breakdown from gastric contents. No fecal matter noted around stoma site or within gastric feeding tube., Bowel sounds: active, all quadrants, Palpation: abdomen is soft and non-tender, in all quadrants, Indicators: McBurney's point is not tender, Thomas's sign is negative, Liver: tenderness, is not appreciated. Vital Signs: 07:03 BP 95 / 62; Resp 18; Temp 98.2(O); lp1 07:20 BP 100 / 56; Pulse 71; Resp 18 S; Pulse Ox 97% on R/A; aa5 08:00 BP 98 / 79; Pulse 75; Resp 16 S; Pulse Ox 96% on R/A; aa5 09:00 BP 115 / 70; Pulse 79; Resp 20 S; Pulse Ox 96% on R/A; aa5 MDM: 07:01 Patient medically screened. 8 07:31 Data reviewed: vital signs, nurses notes, and as a result, I will discharge patient. jr8 Data reviewed: old medical records. Data interpreted: Pulse oximetry: on room air is 100 %. Interpretation: normal. Counseling: I had a detailed discussion with the patient and/or guardian regarding: the historical points, exam findings, and any diagnostic results supporting the discharge/admit diagnosis, the need for outpatient follow up, a family practitioner, a watch case polisher. ED course: Patient has had multiple work-ups within the last few days including blood work and CT scans of the abdomen and pelvis. No acute findings were noted. Patient's abdominal exam upon palpation is benign and without pain. I had nurse clean and dress the macerated skin region around the gastrostomy tube otherwise no other further work-up needed at this time.. Administered Medications: No medications were administered Disposition Summary: 04/07/21 07:40 Discharge Ordered Location: Home jr8 Problem: new jr8 Symptoms: have improved jr8 Condition: Stable jr8 Diagnosis - Gastrostomy complications jr8 Followup: jr8 - With: Private Physician - When: 2 - 3 days - Reason: Wound Recheck, Recheck today's complaints, Continuance of care, Re-evaluation by your physician Discharge Instructions: - Discharge Summary Sheet jr8 - PEG Tube Home Guide jr8 Forms: - Medication Reconciliation Form jr8 - Thank You Letter jr8 - Antibiotic Education jr8 - Prescription Opioid Use jr8 Signatures: Madison Quintero RN RN lp1 Jamison Hernandez PA PA jr8
--- NOTE | 2021-04-07 07:41 | ER ---
Nurse's Notes [facility] Name: Zbigniew Mitchell Age: 75 yrs Sex: Male : 1945 Arrival Date: 04/07/2021 Time: 07:00 Bed 6 Private MD: Diagnosis: Gastrostomy complications Presentation: 04/07 07:03 Chief complaint: EMS states: Called for patient with reports feces in G-tube; Nursing lp1 home staff report they cannot get patient to take antibiotics. Coronavirus screen: At this time, the client does not indicate any symptoms associated with coronavirus-19. Ebola Screen: No symptoms or risks identified at this time. Initial Sepsis Screen: Does the patient meet any 2 criteria? No. Patient's initial sepsis screen is negative. Does the patient have a suspected source of infection? No. Patient's initial sepsis screen is negative. Risk Assessment: Do you want to hurt yourself or someone else? Unable to obtain. Onset of symptoms was April 07, 2021. 07:03 Method Of Arrival: EMS: [facility] lp1 07:03 Acuity: ANDRE 3 lp1 07:05 Transition of care: patient was received from another setting of care (long-term care 1 facility), [facility]. Historical: - Allergies: 07:06 PENICILLINS; lp1 - Home Meds: 07:06 Aricept 10 mg Oral tab 1 tab nightly [Active]; Aspercreme (lidocaine) 4 % Topical ptmd lp1 daily [Active]; Depakote ER 500 mg Oral Tb24 2 tabs nightly [Active]; Dilantin 100 mg Oral 2 tab twice a day [Active]; docusate sodium 100 mg Oral cap 2 times per day [Active]; Eliquis 2.5 mg Oral tab 1 tab 2 times per day [Active]; Eliquis 5 mg Oral tab 0.5 tab 2 times per day [Active]; famotidine 20 mg Oral tab every 12 hours [Active]; folic acid 1 mg Oral tab 1 tab once daily [Active]; furosemide 20 mg Oral tab 1 tab once daily [Active]; hydroxyzine HCl 25 mg Oral tab BID [Active]; magnesium oxide 400 mg magnesium Oral cap twice a day [Active]; megestrol 400 mg/10 mL (10 mL) Oral susp once daily [Active]; metoprolol tartrate 25 mg Oral tab 1 tab 2 times per day [Active]; Miralax 17 gram Oral pwpk 1 packet once daily [Active]; mupirocin 2 % Topical oint twice daily [Active]; Neurontin 100 mg Oral cap 3 times per day [Active]; nitroglycerin 0.4 mg Oral cpER PRN [Active]; [place] 5-325 mg Oral tab Q8H for Pain [Active]; Norvasc 2.5 mg Oral tab 1 tab twice a day [Active]; omeprazole 20 mg Oral cpDR 1 cap once daily [Active]; potassium chloride 10 mEq Oral cpER 1 cap once daily [Active]; Prozac 40 mg Oral cap 1 cap once daily [Active]; Synthroid 150 mcg Oral tab 1 tab once daily [Active]; trazodone 100 mg Oral tab 1 tab at bedtime [Active]; valproic acid 250 mg Oral cap twice daily [Active]; Vitamin C 500 mg Oral tab 500 mg daily [Active]; Vitamin D Oral 2000 unit daily [Active]; zinc sulfate 220 mg Oral cap daily [Active]; - PMHx: 07:06 Atrial Fib; Bipolar disorder; Bronchitis; Cervicalgia; Chronic pain; constipation; 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 Nutritional screening: No deficits noted. Tuberculosis aa5 screening: No symptoms or risk factors identified. Fall Risk Secondary diagnosis (15 points) seizures, impaired mobility, No IV (0 pts). Ambulatory Aid- None/Bed Rest/Nurse Assist (0 pts). Gait- Normal/Bed Rest/Wheelchair (0 pts) Mental Status- Overestimates/Forgets Limitations (15 pts.). Total Aleman Fall Scale indicates Low Risk Score (25-44 pts). Fall prevention measures have been instituted. Side Rails Up X 2 Placed close to Nursing Station. Assessment: 07:20 General: Appears comfortable, Behavior is calm, cooperative. Pain: Unable to use pain aa5 scale. Does not appear to understand pain scale. FLACC scale score is 0 out of 10. Neuro: Level of Consciousness is awake, obeys commands, confused, Oriented to person, Brothel Keeper are equal bilaterally Speech is normal. Cardiovascular: Heart tones S1 S2 present Rhythm is regular. Respiratory: Airway is patent Respiratory effort is even, unlabored, Respiratory pattern is regular, symmetrical. GI: Abdomen is round non-distended, PEG tube in place, Site reddened. with moderate amount of clear drainage noted. No fecal matter noted in PEG tube. Bowel sounds present X 4 quads. : Gray in place to gravity drainage. EENT: Poor dentition noted. Derm: Skin is pink, warm \T\ dry. Musculoskeletal: Pt is bed bound. 08:00 Reassessment: Pt resting in bed with eyes closed, respirations even and unlabored. . aa5 08:30 Reassessment: PEG tube site with clear drainage noted, cleaned with saline and dried aa5 with gauze, gauze dressing applied with foam tape. Flushed PEG tube with 60cc NS per PA, PEG tube easy to flush. . 09:00 Reassessment: Pt resting in bed with eyes closed, respirations even and unlabored. aa5 Awaiting EMS for transfer back to [facility]. . Vital Signs: 07:03 BP 95 / 62; Resp 18; Temp 98.2(O); lp1 07:20 BP 100 / 56; Pulse 71; Resp 18 S; Pulse Ox 97% on R/A; aa5 08:00 BP 98 / 79; Pulse 75; Resp 16 S; Pulse Ox 96% on R/A; aa5 09:00 BP 115 / 70; Pulse 79; Resp 20 S; Pulse Ox 96% on R/A; aa5 ED Course: 07:00 Patient arrived in ED. am2 07:01 Jamison Hernandez PA is PHCP. jr8 07:01 Mike Garcia MD is Attending Physician. jr8 07:05 Triage completed. lp1 07:05 Arm band placed on. lp1 07:20 Patient has correct armband on for positive identification. Placed in gown. Bed in low aa5 position. Call light in reach. Side rails up X2. Pulse ox on. NIBP on. 07:26 Jen Carr, RN is Primary Nurse. aa5 09:30 No provider procedures requiring assistance completed. Patient did not have IV access aa5 during this emergency room visit. Administered Medications: No medications were administered Outcome: 07:40 Discharge ordered by MD. barry 09:30 [facility]charged to [facility]. Report called to NOEL Orozco [facility] aa5 09:30 Condition: stable 09:30 Discharge instructions given to [facility], Instructed on discharge instructions, follow up and referral plans. Demonstrated understanding of instructions, follow-up care. 09:36 Patient left the ED. aa5 Signatures: Jen Carr RN RN aa5 Madison Quintero RN RN lp1 Jamison Hernandez PA PA jr8 Karis Lima am2
[2021-04-07 09:50] VITALS: TEMP 98.2
[2021-04-07 09:53] VITALS: O2SAT 96
[2021-04-07 09:55] VITALS: BP 115/70
== END 2021-04-07 09:36 | disposition home or self-care (01) ==
LOC: ER 06:59
DX: K94.29 Other complications of gastrostomy (principal)
CPT/HCPCS: 99283

== ENCOUNTER 2021-04-08 18:39 | Emergency (ER) | payer OTHER ==
--- OUTSIDE RECORDS SUMMARY | 2021-04-08 18:50 | XMS REPORT | Continuity of Care Document ---
:1945 Author Organization [facility] t Address [address] [place] [address] Care Team Providers Name Role Phone Pcp MD Primary Care Physician Unavailable Poli Conner MD Attending Clinician Deacon Zuniga MD Attending Clinician [phone] Manav Diggs MD Attending Clinician Nelli GONZÁLES [...] l Center Sex Assigned At [address] [facility] - 00:00:00 [facility] Medications Ordered Filled Start Stop Current Ordering Indication Dosage Frequency Signature Comments Components Source Medication Medication Date Date Medication? Clinician (SIG) Name Name [facility] 2021- Yes 1{tbl} QD Take [address] n 04-03 tablet by [facility] (THERWireless SafetyAN) 00:00: 23:59 mouth Medi nilson tablet 00 :00 daily. [facility] 2021- Yes 1{tbl} QD Take [address] n 04-03 tablet by [facility] - (THERAGRAN) 00:00: 23:59 mouth Medi nilson tablet 00 :00 daily. [facility] 2021- Yes 1{tbl} QD Take [address] n 04-03 tablet by [facility] - (THERWireless SafetyAN) 00:00: 23:59 mouth Medi nilson tablet 00 :00 daily. [facility] 2021- Yes 1{tbl} QD Take [address] n 04-03 tablet by [facility] - (THERAGRAN) 00:00: 23:59 mouth Medi nilson tablet 00 :00 daily. [facility] ascorbic 2020- Yes 250mg QD Take 1 [...] ical (VITAMIN C) 00 :00 total) by [facility] ter 250 MG mouth tablet daily for [...] ical (VITAMIN C) 00 :00 total) by [facility] ter 250 MG mouth tablet daily for [...] 220mg QD Take [address] [facility] sulfate 9-09 09-08 capsule [facility] - (ZINCATE) 00:00: 00:00 (220 mg Medi nilson 50 mg zinc 00 :00 total) by Cent er (220 mg) mouth capsule daily for 10 days. zinc 2020- No 220mg QD Take [address] [facility] sulfate 04-03-08 capsule [facility] - (ZINCATE) 00:00: 00:00 (220 [...] mg(1,250mg) -200 unit per tablet phenytoin Yes Q.[id number] Take by [facility] (DILANTIN) 04-02 [id number] mouth 3 [facility] - 100 MG ER [...] Medical 35 times Center daily. folic acid Yes 1mg QD Take [address] (FOLVITE) 1 04-02 by mouth Luke s - MG tablet [...] needed for Itching. ipratropium 0 Yes 500ug Q.50787064 Take [address] (ATROVENT) 9-08 [id number] mcg by L ukes - 0.02 % [...] (40 35 daily. Center mg/mL) suspension polyethylen Yes 17g QD Take [address] e glycol 9-08 by mouth [facility] - (GLYCOLAX) 18:23: daily. Medic al 17 gram 35 Center packet gabapentin 0 Yes 100mg Q.84610565 Take [address] [address] (NEURONTIN) 9-08 [id number] mg by L ukes - 100 MG [...] mg/5 mL daily. (5 mL) solution acetaminoph 0 Yes 1{tbl} Take [address] en-codeine 9-08 tablet by Luke s - (TYLENOL 18:23: mouth Medical #3) 300-30 35 every 6 Center mg per (six) tablet hours as needed. donepeziL 0 Yes 10mg QD Take [address] (ARICEPT) 9-08 by mouth [facility] - 10 MG 18:23: nightly. Medical tablet 35 Center Missing or Yes Aspercreme [facility] Non-Formula 9 (lidocaine Fern kes - ry 18:23: 4%) patch Medical Medication 35 BID . Center calcium Yes 1{tbl} QD Take [address] [address] carbonate-v 9-08 tablet by Rafael es - itamin D3 18:23: mouth Medical (calcium-vi 35 daily. Center tamin D) 500 mg(1,250mg) -200 unit per tablet phenytoin 2020-0 Yes Q.02442158 Take by [facility] (DILANTIN) 9-08 [id number] mouth 3 [facility] - 100 MG ER [...] needed for Itching. ipratropium 0 Yes 500ug Q.08089441 Take [address] (ATROVENT) 9-08 [id number] mcg by L ukes - 0.02 % [...] 35 Center packet gabapentin 0 Yes 100mg Q.65803916 Take [address] [facility] (NEURONTIN) 9-08 [id number] mg by L ukes - 100 MG 18:23: 3D mouth 3 Medical capsule 35 (three) Center times daily. potassium 0 Yes 10meq QD Take [address] chloride 9-08 mEq by [facility] - (KLOR-CON) 18:23: mouth Medica l 10 MEQ CR 35 daily. Center tablet levothyroxi 2020-0 Yes 150ug Take [address] ne 9-08 mcg by [facility] - (SYNTHROID, 18:23: mouth Medic al LEVOTHROID) 35 Every Center 150 MCG morning on tablet an empty stomach. traZODone 0 Yes 100mg QD Take [address] (DESYREL) 9-08 mg by [facility] - 100 MG 18:23: mouth Medical tablet 35 nightly. Center valproic 2020-0 Yes 1000mg Q.5D Take 1,000 C HI [...] mg(1,250mg) -200 unit per tablet phenytoin Yes Q.11917560 Take by [facility] (DILANTIN) 9-08 [id number] mouth 3 [facility] - 100 MG ER 18:23: 3D (three) Medic al capsule 35 times Center daily. docusate Yes 100mg Q.5D Take [address] sodium 9-08 mg by [facility] - (COLACE) 18:23: mouth 2 Medica l 100 MG 35 (two) Center capsule times daily. famotidine Yes 20mg Q.5D Take [address] (PEPCID) 20 9-08 by mouth 2 Fern kes - MG tablet 18:23: (two) Medical 35 times Center daily. folic acid Yes 1mg QD Take [address] (FOLVITE) 1 9-08 by mouth Luke s - MG tablet 18:23: daily. Medica l 35 Center furosemide 0 Yes 20mg QD Take [address] (LASIX) 20 9-08 by mouth [facility] - MG tablet 18:23: daily. Medica l 35 Center hydrOXYzine Yes 25mg Take [address] (ATARAX) 25 9-08 by mouth 3 Fern kes - MG tablet 18:23: (three) Medic al 35 times Center daily as needed for Itching. ipratropium 0 Yes 500ug Q.13781276 Take [address] (ATROVENT) 9-08 [id number] mcg by L ukes - 0.02 % [...] 35 Center packet gabapentin 0 Yes 100mg Q.02600837 Take [address] (NEURONTIN) 9-08 [id number] mg by L ukes - 100 MG [...] mouth Medical tablet 35 nightly. Center valproic 2020-0 Yes 1000mg Q.5D Take 1,000 C HI [...] -200 unit per tablet phenytoin 2020-0 Yes Q.[id number] Take by [facility] (DILANTIN) 9-08 [id number] mouth 3 [facility] - 100 MG ER 18:23: 3D (three) Medic al capsule 35 times Center daily. docusate 0 Yes 100mg Q.5D Take [address] sodium 9-08 mg by [facility] - (COLACE) 18:23: mouth 2 Medica l 100 MG 35 (two) Center capsule times daily. famotidine Yes 20mg Q.5D Take 20 mg C [...] needed for Itching. ipratropium 0 Yes 500ug Q.80372424 Take [address] (ATROVENT) 9-08 [id number] mcg by L ukes - 0.02 % [...] 35 Center packet gabapentin 0 Yes 100mg Q.67003510 Take [address] (NEURONTIN) 9-08 [id number] mg by L ukes - 100 MG [...] mouth Medical tablet 35 nightly. Center valproic 2020-0 Yes 1000mg Q.5D Take 1,[address] acid, as 9-08 mg by [facility] - sodium 18:23: mouth 2 Medical salt, 35 (two) Center (DEPAKENE) times 250 mg/5 mL daily. (5 mL) solution famotidine 2020-0 2020- Yes 20mg Take [address] [facility] [...] er daily for 5 days. dexAMETHaso 2020- No 6mg QD Take [address] ne 04-02 tablet (6 [facility] - (DECADRON) 00:00: 23:59 mg total) M edical 6 MG tablet 00 :00 by mouth Cent er daily for 5 days. apixaban Yes TWICE [facility] (ELIQUIS) 5-23 DAILY [facility] - 2.5 mg Tab 00:00: Medical tablet 00 [facility] apixaban Yes TWICE [facility] (ELIQUIS) 5-23 DAILY [facility] - 2.5 mg Tab 00:00: Medical tablet 00 [facility] apixaban Yes TWICE [facility] (ELIQUIS) 5-23 DAILY [facility] - 2.5 mg Tab 00:00: Medical tablet 00 [facility] apixaban Yes TWICE [facility] (ELIQUIS) 5-23 DAILY [facility] - 2.5 mg Tab 00:00: Medical tablet 00 [facility] amLODIPine Yes DAILY [facility] (NORVASC) 5-04 [facility] - 2.5 MG 00:00: Medical tablet 00 [facility] amLODIPine [address] [facility] (NORVASC) 5-04 [facility] - 2.5 MG 00:00: Medical tablet 00 [facility] amLODIPine [address] [facility] (NORVASC) 5-04 [facility] - 2.5 MG 00:00: Medical tablet 00 [facility] amLODIPine [address] [facility] (NORVASC) 5-04 [facility] - 2.5 MG 00:00: Medical tablet 00 [facility] Vital Signs Vital Name Observation Time Observation Value Comments Source Systolic blood 2021-04-02 15:00:00 128 mm[Hg] [facility] Diastolic blood 2021-04-02 15:00:00 72 mm[Hg] [facility] Heart rate 2021-04-02 15:00:00 63 /min [facility] Body temperature 2021-04-02 15:00:00 35.94 Blaire [facility] Respiratory rate 2021-04-02 15:00:00 20 /min [facility] Oxygen saturation in 2021-04-02 15:00:00 95 /min [facility] Arterial blood by Medical Ce nter Pulse oximetry Body weight 2021-03-31 04:00:00 87.8 kg [facility] BMI 2021-03-31 04:00:00 30.32 kg/m2 [facility] Body height 2021-03-28 21:00:00 170.2 cm [facility] Procedures Procedure Date / Time Performed Performing Clinician Sourc e D-DIMER 2021-04-02 13:51:00 Daphney Aiken [facility] LACTATE DEHYDROGENASE 2021-04-02 13:50:00 Daphney Aiken [facility] ([facility]) [facility] FERRITIN 2021-04-02 13:50:00 Daphney Aiken [facility] CBC W/PLT COUNT & AUTO 2021-04-02 13:50:00 Aiken, [facility] C-REACTIVE PROTEIN 2021-04-02 13:50:00 Nelli [facility] PROCALCITONIN 2021-04-02 13:50:00 Nelli [facility] COMPREHENSIVE METABOLIC 2021-04-02 13:50:00 Nelli [facility] MAGNESIUM 2021-04-02 13:50:00 Nelli [facility] CBC W/PLT COUNT & AUTO 2021-04-02 13:50:00 Nelli [facility] POCT-GLUCOSE METER 2021-04-02 01:52:00 Renata Diggs [facility] POCT-GLUCOSE METER 2021-04-01 20:51:00 Tessie Diggskha [facility] POCT-GLUCOSE METER 2021-04-01 16:51:00 [facility] 2021-04-01 16:50:00 Diane Gallagher [facility] URINALYSIS W/ REFLEX 2021-04-01 16:50:00 Diane Gallagher [facility] URINE CULTURE [facility] SARS-COV2/INFLUENZA/RSV 2021-04-01 16:48:00 Renata Diggs [facility] - RT-PCR [facility] BASIC METABOLIC PANEL (7) 2021-04-01 16:47:00 Diane Gallagher [facility] POCT-GLUCOSE METER 2021-04-01 11:43:00 Renata Diggs [facility] VANCOMYCIN LEVEL, TROUGH 2021-04-01 10:34:00 Dakotah Figueredo [facility] POCT-GLUCOSE METER 2021-04-01 05:45:[address] [facility] BASIC METABOLIC PANEL (7) 2021-04-01 05:26:00 Madison Newsome [facility] CBC W/PLT COUNT & AUTO 2021-04-01 05:26:00 Sersuma [facility] MAGNESIUM 2021-04-01 05:26:[address] [facility] PHOSPHORUS 2021-04-01 05:26:00 [facility]EL 2021-04-01 05:26[facility]00 [facility]IN 2021-04-01 05:26[facility]00 [facility] (CK) 2021-04-01 05:26:00 [facility] CALCIUM, IONIZED 2021-04-01 05:26:00 [facility] W/[facility]T [facility] & AUTO 2021-04-01 05:26:00 [facility] PO[facility]UCOSE METER 2021-03-31 23:22:00 [facility] POCT-GLUCOSE METER 2021-03-31 15:28:00 [facility] W/[facility]T COUNT & AUTO 2021-03-31 12:50:00 Kasey [facility] MAGNESIUM 2021-03-31 12:50:[address] [facility] PHOSPHORUS 2021-03-31 12:50:[facility] FUN[facility] PANEL 2021-03-31 12:50:00 [facility] COMPREHENSIVE METABOLIC 2021-03-31 12:50:[address] [facility] VANCOMYCIN LEVEL, RANDOM 2021-03-31 12:50:00 Joanna Jolly [facility] CBC W/PLT COUNT & AUTO 2021-03-31 12:50:00 Kasey Berny [facility] - DIFFERENTIAL [facility] CALCIUM, IONIZED 2021-03-31 12:49:00 SimonsumaBerny [facility] POCT-GLUCOSE METER 2021-03-31 12:08:00 [facility] POCT-GLUCOSE METER 2021-03-31 09:59:00 Kingsley [facility] BASIC METABOLIC PANEL (7) 2021-03-31 00:07:00 Madison Newsome [facility] XR ABDOMEN / KUB 1 VIEW 2021-03-30 21:31:00 Bola Naylor [facility] POCT-GLUCOSE METER 2021-03-30 21:31:00 Kingsley [facility] POCT-GLUCOSE METER 2021-03-30 17:26:00 Kingsley [facility] XR ABDOMEN / KUB 1 VIEW 2021-03-30 17:03:00 Madison Newsome [facility] BASIC METABOLIC PANEL (7) 2021-03-30 16:42:00 Madison Newsome [facility] POCT-GLUCOSE METER 2021-03-30 12:50:00 [facility] COMPLETE 2021-03-30 11:26:00 Lan Peraza [facility] 2D ECHO W/ DOPPLER 2021-03-30 10:31:37 Jd Jefferson [facility] (CW/PW/COLOR) [facility] BASIC METABOLIC PANEL (7) 2021-03-30 09:53:00 David Reeves CH I [facility] POCT-GLUCOSE METER 2021-03-30 05:02:00 Kingsley [facility] BASIC METABOLIC PANEL (7) 2021-03-30 04:12:00 David Reeves CH [facility] CBC W/PLT COUNT & AUTO 2021-03-30 04:12:00 [facility] MAGNESIUM 2021-03-30 04:12:[address] [facility] PHOSPHORUS 2021-03-30 04:12:[facility] FUNCTION PANEL 2021-03-30 04:12:00 [facility] C-REACTIVE PROTEIN 2021-03-30 04:12:00 [facility] CREATINE KIN[facility] (CK) 2021-03-30 04:12:00 [facility]CI[facility], [facility]ON[facility]ED 2021-03-30 04:12:00 [facility] CBC W/PLT COUNT & AUTO 2021-03-30 04:12:00 [facility] POCT-GLUCOSE METER 2021-03-29 23:40:[address] [facility] OSMOLALITY, URINE 2021-03-29 21:49:00 [facility] OSMOLALITY, SERUM 2021-03-29 21:49:00 Tye [facility] SODIUM, RANDOM URINE 2021-03-29 21:49:00 [facility] CREATININE, RANDOM URINE 2021-03-29 21:49:00 Tye [facility] BASIC METABOLIC PANEL (7) 2021-03-29 21:49:00 David Reeves CH [facility] SODIUM, RANDOM URINE 2021-03-29 17:25:00 [facility] PROTEIN, RANDOM URINE 2021-03-29 17:25[facility]AT[facility], RANDOM URINE 2021-03-29 17:25:00 [facility] OSMOLALITY, URINE 2021-03-29 17:25:00 [facility] POCT-GLUCOSE METER 2021-03-29 17:21:00 [facility] BASIC METABOLIC PANEL (7) 2021-03-29 16:26:00 David Reeves CH I [facility] VALPROIC ACID LEVEL, 2021-03-29 16:26:00 Jd Jefferson [facility] PHENYTOIN LEVEL, TOTAL 2021-03-29 16:26:00 Jd Jefferson [facility] BASIC METABOLIC PANEL (7) 2021-03-29 12:51:00 David Reeves CH I [facility] POCT-GLUCOSE METER 2021-03-29 12:38:00 [facility] BASIC METABOLIC PANEL (7) 2021-03-29 09:08:00 David Reeves CH, I [facility] VANCOMYCIN LEVEL, RANDOM 2021-03-29 09:08:00 Joanna Jolly [facility] B-TYPE NATRIURETIC FACTOR 2021-03-29 09:08:00 Jd Jefferson CH [facility] (BNP) [facility] BASIC METABOLIC PANEL (7) 2021-03-29 05:51:00 David Reeves CH I [facility] TSH/FREE T4 IF INDICATED 2021-03-29 05:05:00 Berny Parks [facility] CBC W/PLT COUNT & AUTO 2021-03-29 05:05:00 Berny Parks [facility] DIFFERENTIAL [facility] (CELLAVISION MANUAL DIFF) 2021-03-29 05:05:00 Berny Parks CH, I [facility] CBC W/PLT COUNT & AUTO 2021-03-29 05:05:00 Kasey [facility] DIFFERENTIAL [facility] URINE CULTURE 2021-03-29 02:53:[address] [facility] URINALYSIS W/ REFLEX 2021-03-29 02:53:00 Kasey [facility] - URINE CULTURE [facility] BLOOD CULTURE 2021-03-29 02:52:00 [facility] BLOOD GAS, ARTERIAL 2021-03-28 23:03:00 [facility] (HEMOGRAM ONLY) 2021-03-28 23:02:00 [facility] PT/APTT 2021-03-28 23:02:00 [facility] D-DIMER 2021-03-28 23:02:00 [facility] LACTIC ACID, VENOUS 2021-03-28 23:02:00 [facility] CALCIUM, IONIZED 2021-03-28 23:02:[address] [facility] COMPREHENSIVE METABOLIC 2021-03-28 22:29:00 [facility]-REACTIVE PROTEIN 2021-03-28 22:29:00 [facility] MAGNESIUM 2021-03-28 22:29:00 [facility] PHOSPHORUS 2021-03-28 22:29:00 [facility] CREATINE KINASE (CK) 2021-03-28 22:29:00 [facility] XR ABDOMEN / KUB 1 VIEW 2021-03-28 22:07:00 [facility] CHEST 1 VIEW PORTABLE 2021-03-28 21:59:00 Berny Parks [facility] - / BEDSIDE [facility] Plan of Care Planned Activity Planned [...] - Test 00:00:00 (1 of 1 - [facility] [id number] PCV13) [code = PNEUMOCOCCAL 65+ YRS (1 of 1 - [id number] PCV13)] Future Scheduled 2008 PNEUMOCOCCAL 65+ YRS [facility] - Test 00:00:00 ([address] [place] [address] [id number] PCV13) [code = PNEUMOCOCCAL 65+ YRS (1 of 1 - [id number] PCV13)] Future Scheduled 2008 PNEUMOCOCCAL 65+ YRS [facility] - Test 00:00:00 (1 of 1 - Medical Center [id number] PCV13) [code = PNEUMOCOCCAL 65+ YRS (1 of 1 - [id number] PCV13)] Future Scheduled 2008 PNEUMOCOCCAL 65+ YRS [facility] - Test 00:00:00 (1 of 1 - Medical Center [id number] PCV13) [code = PNEUMOCOCCAL 65+ YRS (1 of 1 - [id number]_Zfaagrf PCV13)] Future Scheduled 2005-03-27 MEDICARE ANNUAL [facility] [...] Type Clinicians Facility Department ID 2021-03-28 2021-04-02 [facility] Flavia Conner [facility] [id number] [facility] 20:39:00 18:23:00 Encounter Oz Zunigatye Worthy jose Diggs[facility] C enter 2021-03-28 2021-04-02 [facility] [id number] [facility] 20:[facility] 18:23:00 Encounter Simon Zunigajavier Worthy [facility] Caterina, [facility] Karmen enter 2021-03-29 2021-03-29 Travel [facility] [id number] [facility] 00:[facility]:00 [facility] 2021-03-29 2021-03-29 Travel [facility] [id number] [facility] 00:[facility]:00 [facility] Results Test Description Test Time Test Comments Results Result Comments Source Urine culture 2021-04-03 09:42:00 Test Item Value Reference Range Interpretation Comme nts Result (test code = 6463-4) 80-89,000 col/mL Capri tropicalis A Lab Interpretation (test code = 29104-6) Abnormal [facility] [id number] 09:42:00 Test Item Value Reference Range Interpretation Comments Result (test code = 80-89,000 col/mL A 6463-4) Capri tropicalis Lab Interpretation (test Abnormal code = 09475-1) [facility] [id number] 09:42:00 Test Item Value Reference Range Interpretation Comments Result (test code = 80-89,000 col/mL A 6463-4) Capri tropicalis Lab Interpretation (test Abnormal code = 51081-9) [facility] [id number] 09:42:00 Test Item Value Reference Range Interpretation Comments Result (test code = 80-89,000 col/mL A 6463-4) Capri tropicalis Lab Interpretation (test Abnormal code = 49349-7) [facility] Culture - Routine (Left Venipuncture) 2021-04-03 04:01:00 Test Item Value Reference Range Interpretation Comments Result (test code = No growth in 5 days 6463-4) [facility] Culture - Routine (Left Venipuncture) 2021-04-03 04:01:00 Test Item Value Reference Range Interpretation Comments Result (test code = No growth in 5 days 6463-4) [facility] Culture - Routine (Left Venipuncture) 2021-04-03 04:01:00 Test Item Value Reference Range Interpretation Comments Result (test code = No growth in 5 days 6463-4) [facility] Culture - Routine (Left Venipuncture) 2021-04-03 04:01:00 Test Item Value Reference Range Interpretation Comments Result (test code = No growth in 5 days 6463-4) [facility] [id number] 04:01:00 Test Item Value Reference Range Interpretation Comments CULTURE (BEAKER) (test No growth in 5 days code = 1095) BLOOD [id number] 04:01:00 Test Item Value Reference Range Interpretation Comments CULTURE (BEAKER) (test No growth in 5 days code = 1095) [id number] 14:50:00 Test Item Value Reference Range Interpretation Comments Ferritin (test code = 486.66 ng/mL 5-275 H 2276-4) STACY (test code = STACY) [employer] ID - PIAYA L Lab Interpretation (test Abnormal code = 79165-3) [facility] 14:50:00 Test Item Value Reference Range Interpretation Comments Ferritin (test code = 486.66 ng/mL 5.00-275.00 H 2276-4) STACY (test code = STACY) [employer] ID - PIAYA L Lab Interpretation (test Abnormal code = 39432-1) [facility] 14:50:00 Test Item Value Reference Range Interpretation Comments Ferritin (test code = 486.66 ng/mL 5.00-275.00 H 2276-4) STACY (test code = STACY) [employer] ID - PIAYA L Lab Interpretation (test Abnormal code = 31035-7) [facility] 14:50:00 Test Item Value Reference Range Interpretation Comments Ferritin (test code = 486.66 ng/mL 5.00-275.00 H 2276-4) STACY (test code = STACY) [employer] ID - MERT L Lab Interpretation (test Abnormal code = 79054-8) [facility]2021-[facility]-08 14:50:00 Test Item Value Reference Range Interpretation Comments FERRITIN (BEAKER) (test code = 486.66 ng/mL 5.00-275.00 H 361) [employer] ID - MERT [id number] 14:43:00 Test Item Value Reference Range Interpretation Comments Procalcitonin (test <0.05 See_Comment [Automa saulo code = 58556-5) message] The system which generated this result transmit saulo reference range : <0.05 ng/mL. Th e reference range was not used to interpret this result as normal/abnormal . STACY (test code = STACY) SEPSIS RISK (ng/mL)Low: 0.05-0.50Inter mediate: 0.51-2.00High: >=2.01 Lab Interpretation Normal (test code = 09651-3) [facility]2021-[facility]-08 14:43:00 Test Item Value Reference Range Interpretation Comments Procalcitonin (test <0.05 See_Comment [Automa saulo code = 47605-9) message] The system which generated this result transmit saulo reference range : <0.05 ng/mL. Th e reference range was not used to interpret this result as normal/abnormal . STACY (test code = STACY) SEPSIS RISK (ng/mL)Low: 0.05-0.50Inter mediate: 0.51-2.00High: >=2.01 Lab Interpretation Normal (test code = 82601-8) [facility]2021-[facility]-08 14:43:00 Test Item Value Reference Range Interpretation Comments Procalcitonin (test <0.05 See_Comment [Automa saulo code = 08421-4) message] The system which generated this result transmit saulo reference range : <0.05 ng/mL. Th e reference range was not used to interpret this result as normal/abnormal . STACY (test code = STACY) SEPSIS RISK (ng/mL)Low: 0.05-0.50Inter mediate: 0.51-2.00High: >=2.01 Lab Interpretation Normal (test code = 17866-5) [facility]2021-[facility]-08 14:43:00 Test Item Value Reference Range Interpretation Comments Procalcitonin (test <0.05 See_Comment [Automa saulo code = 08120-5) message] The system which generated this result transmit saulo reference range : <0.05 ng/mL. Th e reference range was not used to interpret this result as normal/abnormal . STACY (test code = STACY) SEPSIS RISK (ng/mL)Low: 0.05-0.50Inter mediate: 0.51-2.00High: >=2.01 Lab Interpretation Normal (test code = 09618-7) [facility]IN2021-09-08 14:43:00 Test Item Value Reference Range Interpretation Comments PROCALCITONIN (BEAKER) (test code = < ng/mL <0.05 3036) SEPSIS RISK (ng/mL)Low: 0.05-0.50Intermediate: 0.51-2.00High: >=2.01Comprehensive metabolic [id number] 14:39:00 Test Item Value Reference Range Interpretation [...] 2.0 g/dL 3.5-5 L Specime n slightly 45935-0) hemolyzed Alkaline Phosphatase 65 U/L 40-150 (test code = 6768-6) Total Bilirubin (test 0.4 mg/dL 0.2-1.2 Specim en slightly code = 1975-2) hemolyzed Sodium (test code = 141 meq/L 022-095 6727-2) Potassium (test code 3.3 meq/L 3.5-5.1 L [...] (test code = 7.2 mg/dL 8.4-10.2 L 87305-9) AST (test code = 38 U/L 5-34 H Specimen sl ightly 1920-8) hemolyzed ALT (test code = 31 U/L 6-55 Specimen sl ightly 1742-6) hemolyzed EGFR (test code = 95 mL/min/1.73 [place] [address]-1) NOT ACCURATE CREATININE CLEARANCE IN PREDICTING GLOMERULAR FILTRATION RATE . ESTIMATED GFR I S NOT APPLICABLE FOR DIALYSIS PATIEN TS. STACY (test code = STACY) [employer] ID - PIAYA L Lab Interpretation Abnormal (test code = 06947-5) [facility] 14:39:00 Test Item Value Reference Range Interpretation Comments LDH (test code = 390 U/L 125-220 H Specimen 2532-0) slightly hemolyzed STACY (test code = STACY) [employer] ID - PIAYA L Lab Interpretation Abnormal (test code = 28298-7) [facility] [id number] 14:39:00 Test Item Value Reference Range Interpretation [...] 2.0 g/dL 3.5-5.0 L Specime n slightly 58795-2) hemolyzed Alkaline Phosphatase 65 U/L 40-150 (test code = 6768-6) Total Bilirubin (test 0.4 mg/dL 0.2-1.2 Specim en slightly code = 1975-2) hemolyzed Sodium (test code = 141 meq/L 283-776 5552-2) Potassium (test code 3.3 meq/L 3.5-5.1 L [...] (test code = 7.2 mg/dL 8.4-10.2 L 86173-5) AST (test code = 38 U/L 5-34 H Specimen sl ightly 1920-8) hemolyzed ALT (test code = 31 U/L 6-55 Specimen sl ightly 1742-6) hemolyzed EGFR (test code = 95 mL/min/1.[place] [address]-1) NOT ACCURATE CREATININE CLEARANCE IN PREDICTING GLOMERULAR FILTRATION RATE . ESTIMATED GFR I S NOT APPLICABLE FOR DIALYSIS PATIEN TS. STACY (test code = STACY) [employer] ID - PIAYA L Lab Interpretation Abnormal (test code = 02388-8) [facility]21-[facility]-02 14:39:00 Test Item Value Reference Range Interpretation Comments LDH (test code = 390 U/L 125-220 H Specimen 2532-0) slightly hemolyzed STACY (test code = STACY) [employer] ID - PIAYA L Lab Interpretation Abnormal (test code = 13827-3) [facility] [id number] 14:39:00 Test Item Value Reference Range Interpretation [...] 2.0 g/dL 3.5-5.0 L Specime n slightly 49326-1) hemolyzed Alkaline Phosphatase 65 U/L 40-150 (test code = 6768-6) Total Bilirubin (test 0.4 mg/dL 0.2-1.2 Specim en slightly code = 1974-2) hemolyzed Sodium (test code = 141 meq/L 090-391 8357-2) Potassium (test code 3.3 meq/L 3.5-5.1 L [...] (test code = 7.2 mg/dL 8.4-10.2 L 30337-6) AST (test code = 38 U/L 5-34 H Specimen sl ightly 1920-8) hemolyzed ALT (test code = 31 U/L 6-55 Specimen sl ightly 1742-6) hemolyzed EGFR (test code = 95 mL/min/1.[place] [address]-5) NOT ACCURATE CREATININE CLEARANCE IN PREDICTING GLOMERULAR FILTRATION RATE . ESTIMATED GFR I S NOT APPLICABLE FOR DIALYSIS PATIEN TS. STACY (test code = STACY) [employer] ID - PIAYA L Lab Interpretation Abnormal (test code = 58536-9) [facility]2021-04-02 14:39:00 Test Item Value Reference Range Interpretation Comments LDH (test code = 390 U/L 125-220 H Specimen 2532-0) slightly hemolyzed STACY (test code = STACY) [employer] ID - PIAYA L Lab Interpretation Abnormal (test code = 31711-5) [facility] [id number] 14:39:00 Test Item Value Reference Range Interpretation [...] 2.0 g/dL 3.5-5.0 L Specime n slightly 52969-3) hemolyzed Alkaline Phosphatase 65 U/L 40-150 (test code = 6768-6) Total Bilirubin (test 0.4 mg/dL 0.2-1.2 Specim en slightly code = 1975-2) hemolyzed Sodium (test code = 141 meq/L 856-782 7225-2) Potassium (test code 3.3 meq/L 3.5-5.1 L [...] (test code = 7.2 mg/dL 8.4-10.2 L 51165-8) AST (test code = 38 U/L 5-34 H Specimen sl ightly 1920-8) hemolyzed ALT (test code = 31 U/L 6-55 Specimen sl ightly 1742-6) hemolyzed EGFR (test code = 95 mL/min/1.[place] [address]-6) NOT ACCURATE CREATININE CLEARANCE IN PREDICTING GLOMERULAR FILTRATION RATE . ESTIMATED GFR I S NOT APPLICABLE FOR DIALYSIS PATIEN TS. STACY (test code = STACY) [employer] ID - PIAYA L Lab Interpretation Abnormal (test code = 06090-3) [facility])2021-04-02 14:39:00 Test Item Value Reference Range Interpretation Comments LDH (test code = 390 U/L 125-220 H Specimen 2532-0) slightly hemolyzed STACY (test code = STACY) [employer] ID - PIAYA L Lab Interpretation Abnormal (test code = 94231-9) [facility]21-[facility]-02 14:39:00 Test Item Value Reference Range Interpretation Comments LACTATE DEHYDROGENASE 390 U/L 125-220 H Specim en slightly (BEAKER) (test code = hemoly zed 635) [employer] ID - PIAYA LCOMPREHENSIVE METABOLIC [id number] 14:39:00 Test Item Value Reference Range Interpretation [...] S NOT APPLICABLE FOR DIALYSIS PATIEN TS. [employer] ID - PIAYA [id number] 14:35:00 Test Item Value Reference Range Interpretation Comments Magnesium (test code = 1.4 mg/dL 1.6-2.6 L Speci men 52222-2) slightly hemolyzed STACY (test code = STACY) [employer] ID - PIAYA L Lab Interpretation Abnormal (test code = 37693-4) [facility] [id number] 14:35:00 Test Item Value Reference Range Interpretation Comments CRP (test code = 676) 2.68 mg/dL 0-0.5 H STACY (test code = STACY) [employer] ID - PIAYA L Lab Interpretation (test Abnormal code = 32237-1) [facility] Hospital[facility]esium2021-[facility]-08 14:35:00 Test Item Value Reference Range Interpretation Comments Magnesium (test code = 1.4 mg/dL 1.6-2.6 L Speci men 09323-8) slightly hemolyzed STACY (test code = STACY) [employer] ID - PIAYA L Lab Interpretation Abnormal (test code = 78594-4) [facility] [id number] 14:35:00 Test Item Value Reference Range Interpretation Comments CRP (test code = 676) 2.68 mg/dL 0.00-0.50 H STACY (test code = STACY) [employer] ID - PIAYA L Lab Interpretation (test Abnormal code = 33562-7) [facility]esium2021-[facility] 14:35:00 Test Item Value Reference Range Interpretation Comments Magnesium (test code = 1.4 mg/dL 1.6-2.6 L Speci men 38098-0) slightly hemolyzed STACY (test code = STACY) [employer] ID - PIAYA L Lab Interpretation Abnormal (test code = 82450-1) [facility] [id number] 14:35:00 Test Item Value Reference Range Interpretation Comments CRP (test code = 676) 2.68 mg/dL 0.00-0.50 H STACY (test code = STACY) [employer] ID - PIAYA L Lab Interpretation (test Abnormal code = 82904-4) [facility] 14:[facility]:00 Test Item Value Reference Range Interpretation Comments Magnesium (test code = 1.4 mg/dL 1.6-2.6 L Speci men 96087-2) slightly hemolyzed STACY (test code = STACY) [employer] ID - MERT L Lab Interpretation Abnormal (test code = 11920-7) [facility] [id number] 14:35:00 Test Item Value Reference Range Interpretation Comments CRP (test code = 676) 2.68 mg/dL 0.00-0.50 H STACY (test code = STACY) [employer] ID - MERT L Lab Interpretation (test Abnormal code = 29033-2) [facility] [id number] 14:35:00 Test Item Value Reference Range Interpretation Comments C-REACTIVE PROTEIN (BEAKER) (test 2.68 mg/dL 0.00-0.50 H code = 676) [employer] ID - MERT [id number] 14:35:00 Test Item Value Reference Range Interpretation Comments MAGNESIUM (BEAKER) 1.4 mg/dL 1.6-2.6 L Specimen slightly (test code = 627) hemolyzed [employer] ID - MERT SA-[id number] 14:24:00 Test Item Value Reference Range Interpretation Comments D-Dimer, Quant (test 1.25 See_Comment H [Autom ated code = 03009-1) message] The system which generated this result [...] range. Lab Interpretation Abnormal (test code = 84520-8) [facility]D-[id number] 14:24:00 Test Item Value Reference Range Interpretation Comments D-Dimer, Quant (test 1.25 See_Comment H [Autom ated code = 80983-8) message] The system which generated this result [...] range. Lab Interpretation Abnormal (test code = 12547-4) [id number] 14:24:00 Test Item Value Reference Range Interpretation Comments D-Dimer, Quant (test 1.25 See_Comment H [Autom ated code = 77144-6) message] The system which generated this result [...] range. Lab Interpretation Abnormal (test code = 37858-8) [facility]-[id number] 14:24:00 Test Item Value Reference Range Interpretation Comments D-Dimer, Quant (test 1.25 See_Comment H [Autom ated code = 89487-0) message] The system which generated this result [...] range. Lab Interpretation Abnormal (test code = 21880-8) [facility][id number] 14:24:00 Test Item Value Reference Range Interpretation [...] 95-100% range.CBC with platelet count + automated [id number] 14:17:00 Test Item Value Reference Range Interpretation Comments WBC (test code = 6690-2) 14.6 See_Comment H [A utomated message] The system [employer] generated this result transmitted ref erence range: 3.5 - 10 .5 K/L. The refe rence range was not u sed to interpret this result as normal/abnor mal. RBC (test code = 789-8) 4.03 See_Comment L [Au tomated message] The system [employer] generated this result transmitted ref erence range: 4.63 - 6 .08 M/L. The refe rence range was not u sed to interpret this result as normal/abnor mal. MCHC (test code = 786-4) 32.0 See_Comment L [A utomated message] The system [employer] generated this result transmitted ref erence range: [...] See_Comment [Aut omated message] 777-3) The system [employer] generated this result transmitted ref erence range: 150 - 45 0 K/CU MM. The referen ce range was not u sed to interpret this result as normal/abnor mal. MPV (test code = 11.2 fL 9.4-12.4 19311-5) nRBC (test code = 413) 1 See_Comment H [Aut omated message] The system [employer] generated this result transmitted ref erence range: [...] H [Aut omated message] 670) The system [employer] generated this result transmitted ref erence range: 1.78 - 5 .38 K/L. The refe rence range was not u sed to interpret this result as normal/abnor mal. # Lymphs (test code = 1.26 See_Comment L [Auto mated message] 414) The system [employer] generated this result transmitted ref erence range: 1.32 - 3 .57 K/L. The refe rence range was not u sed to interpret this result as normal/abnor mal. # Monos (test code = 0.76 See_Comment [Autom ated message] 415) The system [employer] generated this result transmitted ref erence range: 0.30 - 0 .82 K/L. The refe rence range was not u sed to interpret this result as normal/abnor mal. # Eos (test code = 416) 0.00 See_Comment L [Au tomated message] The system [employer] generated this result transmitted ref erence range: 0.04 - 0 .54 K/L. The refe rence range was not u sed to interpret this result as normal/abnor mal. # Baso (test code = 417) 0.03 See_Comment [A utomated message] The system [employer] generated this result transmitted ref erence range: 0.01 - 0 .08 K/L. The refe rence range was not u sed to interpret this result as normal/abnor mal. Immature 2 % 0-1 H Granulocytes-Relative (test code = 2801) Lab Interpretation (test Abnormal code = 15140-1) [facility] with platelet count + automated [id number] 14:17:00 Test Item Value Reference Range Interpretation Comments WBC (test code = 6690-2) 14.6 See_Comment H [A utomated message] The system [employer] generated this result transmitted ref erence range: 3.5 - 10 .5 K/L. The refe rence range was not u sed to interpret this result as normal/abnor mal. RBC (test code = 789-8) 4.03 See_Comment L [Au tomated message] The system [employer] generated this result transmitted ref erence range: 4.63 - 6 .08 M/L. The refe rence range was not u sed to interpret this result as normal/abnor mal. MCHC (test code = 786-4) 32.0 See_Comment L [A utomated message] The system [employer] generated this result transmitted ref erence range: [...] See_Comment [Aut omated message] 777-3) The system [employer] generated this result transmitted ref erence range: 150 - 45 0 K/CU MM. The referen ce range was not u sed to interpret this result as normal/abnor mal. MPV (test code = 11.2 fL 9.4-12.4 55894-1) nRBC (test code = 413) 1 See_Comment H [Aut omated message] The system [employer] generated this result transmitted ref erence range: [...] H [Aut omated message] 670) The system [employer] generated this result transmitted ref erence range: 1.78 - 5 .38 K/L. The refe rence range was not u sed to interpret this result as normal/abnor mal. # Lymphs (test code = 1.26 See_Comment L [Auto mated message] 414) The system [employer] generated this result transmitted ref erence range: 1.32 - 3 .57 K/L. The refe rence range was not u sed to interpret this result as normal/abnor mal. # Monos (test code = 0.76 See_Comment [Autom ated message] 415) The system [employer] generated this result transmitted ref erence range: 0.30 - 0 .82 K/L. The refe rence range was not u sed to interpret this result as normal/abnor mal. # Eos (test code = 416) 0.00 See_Comment L [Au tomated message] The system [employer] generated this result transmitted ref erence range: 0.04 - 0 .54 K/L. The refe rence range was not u sed to interpret this result as normal/abnor mal. # Baso (test code = 417) 0.03 See_Comment [A utomated message] The system [employer] generated this result transmitted ref erence range: 0.01 - 0 .08 K/L. The refe rence range was not u sed to interpret this result as normal/abnor mal. Immature 2 % 0-1 H Granulocytes-Relative (test code = 2801) Lab Interpretation (test Abnormal code = 17047-4) [facility] [id number] 14:17:00 Test Item Value Reference Range Interpretation Comments WBC (test code = 6690-2) 14.6 See_Comment H [A utomated message] The system [employer] generated this result transmitted ref erence range: 3.5 - 10 .5 K/L. The refe rence range was not u sed to interpret this result as normal/abnor mal. RBC (test code = 789-8) 4.03 See_Comment L [Au tomated message] The system [employer] generated this result transmitted ref erence range: 4.63 - 6 .08 M/L. The refe rence range was not u sed to interpret this result as normal/abnor mal. MCHC (test code = 786-4) 32.0 See_Comment L [A utomated message] The system [employer] generated this result transmitted ref erence range: [...] See_Comment [Aut omated message] 777-3) The system [employer] generated this result transmitted ref erence range: 150 - 45 0 K/CU MM. The referen ce range was not u sed to interpret this result as normal/abnor mal. MPV (test code = 11.2 fL 9.4-12.4 11710-7) nRBC (test code = 413) 1 See_Comment H [Aut omated message] The system [employer] generated this result transmitted ref erence range: [...] H [Aut omated message] 670) The system [employer] generated this result transmitted ref erence range: 1.78 - 5 .38 K/L. The refe rence range was not u sed to interpret this result as normal/abnor mal. # Lymphs (test code = 1.26 See_Comment L [Auto mated message] 414) The system [employer] generated this result transmitted ref erence range: 1.32 - 3 .57 K/L. The refe rence range was not u sed to interpret this result as normal/abnor mal. # Monos (test code = 0.76 See_Comment [Autom ated message] 415) The system [employer] generated this result transmitted ref erence range: 0.30 - 0 .82 K/L. The refe rence range was not u sed to interpret this result as normal/abnor mal. # Eos (test code = 416) 0.00 See_Comment L [Au tomated message] The system [employer] generated this result transmitted ref erence range: 0.04 - 0 .54 K/L. The refe rence range was not u sed to interpret this result as normal/abnor mal. # Baso (test code = 417) 0.03 See_Comment [A utomated message] The system [employer] generated this result transmitted ref erence range: 0.01 - 0 .08 K/L. The refe rence range was not u sed to interpret this result as normal/abnor mal. Immature 2 % 0-1 H Granulocytes-Relative (test code = 2801) Lab Interpretation (test Abnormal code = 66637-2) [facility] with platelet count + automated [id number] 14:17:00 Test Item Value Reference Range Interpretation Comments WBC (test code = 6690-2) 14.6 See_Comment H [A utomated message] The system [employer] generated this result transmitted ref erence range: 3.5 - 10 .5 K/L. The refe rence range was not u sed to interpret this result as normal/abnor mal. RBC (test code = 789-8) 4.03 See_Comment L [Au tomated message] The system [employer] generated this result transmitted ref erence range: 4.63 - 6 .08 M/L. The refe rence range was not u sed to interpret this result as normal/abnor mal. MCHC (test code = 786-4) 32.0 See_Comment L [A utomated message] The system [employer] generated this result transmitted ref erence range: [...] See_Comment [Aut omated message] 777-3) The system [employer] generated this result transmitted ref erence range: 150 - 45 0 K/CU MM. The referen ce range was not u sed to interpret this result as normal/abnor mal. MPV (test code = 11.2 fL 9.4-12.4 42873-8) nRBC (test code = 413) 1 See_Comment H [Aut omated message] The system [employer] generated this result transmitted ref erence range: [...] H [Aut omated message] 670) The system [employer] generated this result transmitted ref erence range: 1.78 - 5 .38 K/L. The refe rence range was not u sed to interpret this result as normal/abnor mal. # Lymphs (test code = 1.26 See_Comment L [Auto mated message] 414) The system [employer] generated this result transmitted ref erence range: 1.32 - 3 .57 K/L. The refe rence range was not u sed to interpret this result as normal/abnor mal. # Monos (test code = 0.76 See_Comment [Autom ated message] 415) The system [employer] generated this result transmitted ref erence range: 0.30 - 0 .82 K/L. The refe rence range was not u sed to interpret this result as normal/abnor mal. # Eos (test code = 416) 0.00 See_Comment L [Au tomated message] The system [employer] generated this result transmitted ref erence range: 0.04 - 0 .54 K/L. The refe rence range was not u sed to interpret this result as normal/abnor mal. # Baso (test code = 417) 0.03 See_Comment [A utomated message] The system [employer] generated this result transmitted ref erence range: 0.01 - 0 .08 K/L. The refe rence range was not u sed to interpret this result as normal/abnor mal. Immature 2 % 0-1 H Granulocytes-Relative (test code = 2801) Lab Interpretation (test Abnormal code = 83081-4) [facility] W/PLT COUNT & AUTO [id number] 14:17:00 Test Item Value Reference Range Interpretation [...] PERCENT (BEAKER) (test code = 2801) POC-Glucose [id number] 02:03:00 Test Item Value Reference Range Interpretation Comments POC-Glucose Meter (test 115 mg/dL 70-110 H : TE STED AT [facility] code = 1538) [address] [facility] [place] [address]: [employer] Wheel/Techni tressa ID = [id number] for Allen (contract )Nhi Lab Interpretation (test Abnormal code = 85332-3) [facility] [id number] 02:03:00 Test Item Value Reference Range Interpretation Comments POC-Glucose Meter (test 115 mg/dL 70-110 H : TE STED AT [facility] code = 1538) [address] [facility], [address]: [employer] Wheel/Techni tressa ID = [id number] for Desin (contract ), Nhi Lab Interpretation (test Abnormal code = 16558-0) [facility] [id number] 02:03:00 Test Item Value Reference Range Interpretation Comments POC-Glucose Meter (test 115 mg/dL 70-110 H : TE STED AT [facility] code = 1538) [address] [place] [address], [address]: [employer] Wheel/Techni tressa ID = [id number] for Desin (contract ), Nhi Lab Interpretation (test Abnormal code = 63141-3) [facility]-Glucose [id number] 02:03:00 Test Item Value Reference Range Interpretation Comments POC-Glucose Meter (test 115 mg/dL 70-110 H : TE STED AT [facility] code = 1538) [address] [place] [address], [address]: [employer]/Techni tressa ID = [id number] for Desin (contract ), Nhi Lab Interpretation (test Abnormal code = 29472-3) [facility]-GLUCOSE [id number] 02:03:00 Test Item Value Reference Range Interpretation Comments POC-GLUCOSE METER 115 mg/dL 70-110 H [facility] ([facility]ER[facility] (test code = [facility], 1538) [address]: Tr[employer] Wheel/Techni tressa ID = [id number] for [employer] (contract)[employer] POCT-GLUCOSE [id number] 21:04:00 Test Item Value Reference Range Interpretation Comments POC-GLUCOSE METER 143 mg/dL 70-110 H : TESTED A T [facility] [address] (BEAKER) (test code = [facility], 1538) [address]: [employer] Wheel/Techni tressa ID = [id number] for NEHA OLSON SARS-CoV2/Influenza/RSV RT-PCR (Symptomatic ONLY)2021-04-01 19:00:00 Test Item Value Reference Interpretation Comments Range SARS-COV2/RT-PCR Positive Negative AA The SARS-Co V-2 (test code = target nucleic 73885-7) acids are detec saulo in this specime [...] (test code = [place] [address]-7) not detected in this specimen. Influenza B RT-PCR Negative Negative The Flu B target (test code = [place] 6[address]-8) not detected in this specimen. RSV by RT-PCR (test Negative Negative The RSV target code = 83297-8) nucleic acid s are not detected in [...] SARS-CoV-2/Flu/RSV by their healthcare provider. Results from [facility] Xpert Xpress SARS-CoV-2/Flu/RSV test should be correlated [...] the Act. Fact Sheet for Healthcare Providers:https://w BetterPet/Docu ments/Xpert%20Xpres s%20SARS%20CoV-2/Fa ct%20Sheets/302-390 2%38TTFM-ZOU-2%20HE ALTHCARE%20PROVIDER S%20FACT%20SHEET.pd f Fact Sheet for Healthcare Patients:https://Oce[employer]/Docum ents/Xpert%20Xpress %20SARS%20Cov-2/Fac t%20Sheets/302-3801 %93ZYLA-OBN-2%20PAT IENT%20FACT%20SHEET .pdf Lab Interpretation Abnormal (test code = 18262-5) [facility]Symptomatic ONLY) 2021-04-01 19:00:00 Test Item Value Reference Interpretation Comments Range SARS-COV2/RT-PCR Positive Negative AA The SARS-Co V-2 (test code = target nucleic 72922-9) acids are detec saulo in this specime [...] individual s suspected of COVID-19 by the healthcare provider. Resul ts from the Xpert [...] (test code = [place] 12277-6) not detected in this specimen. Influenza B RT-PCR Negative Negative The Flu B target (test code = [place] 24554-4) not detected in this specimen. RSV by RT-PCR (test Negative Negative The RSV target code = 44659-6) nucleic acid s are not detected in [...] SARS-CoV-2/Flu/RSV by their healthcare provider. Results from [facility] Xpert Xpress SARS-CoV-2/Flu/RSV test should be correlated [...] the Act. Fact Sheet for Healthcare Providers:https://w BetterPet/Docu ments/Xpert%20Xpres s%20SARS%20CoV-2/Fa ct%20Sheets/302-390 2%08AKBX-RCC-8%20HE ALTHCARE%20PROVIDER S%20FACT%20SHEET.pd f Fact Sheet for Healthcare Patients:https://ww OKKAM/Docum ents/Xpert%20Xpress %20SARS%20Cov-2/Fac t%20Sheets/302-3801 %77RXWW-DDY-5%20PAT IENT%20FACT%20SHEET .pdf Lab Interpretation Abnormal (test code = 95929-4) [facility]V [facility] (Symptomatic ONLY) 2021-04-01 19:00:00 Test Item Value Reference Interpretation Comments Range SARS-COV2/RT-PCR Positive Negative AA The SARS-Co V-2 (test code = target nucleic 77643-0) acids are detec saulo in this specime [...] (test code = [place] [address]-7) not detected in this specimen. Influenza B RT-PCR Negative Negative The Flu B target (test code = [place] 55937-2) not detected in this specimen. RSV by RT-PCR (test Negative Negative The RSV target code = 05600-9) nucleic acid s are not detected in [...] the Act. Fact Sheet for Healthcare Providers:https://w [employer]/Docu ments/Xpert%20Xpres s%20SARS%20CoV-2/Fa ct%20Sheets/302-390 2%07FWZB-QWF-9%20HE ALTHCARE%20PROVIDER S%20FACT%20SHEET.pd f Fact Sheet for Healthcare Patients:https://cady [employer]KAM/Docum ents/Xpert%20Xpress %20SARS%20Cov-2/Fac t%20Sheets/302-3801 %64IPIM-SIC-0%20PAT IENT%20FACT%20SHEET .pdf Lab Interpretation Abnormal (test code = 83746-1) [facility] (Symptomatic ONLY) 2021-04-01 19:00:00 Test Item Value Reference Interpretation Comments Range SARS-COV2/RT-PCR Positive Negative AA The SARS-Co V-2 (test code = target nucleic 69982-5) acids are detec saulo in this specime [...] (test code = [place] [address]7739-5) not detected in this specimen. Influenza B RT-PCR Negative Negative The Flu B target (test code = [place] 64435-2) not detected in this specimen. RSV by RT-PCR (test Negative Negative The RSV target code = 92500-0) nucleic acid s are not detected in this specimen. STACY (test code = The presence of TSACY) SARS-CoV-2/FLU/RSV viral nucleic acids cannot rule out [...] the Act. Fact Sheet for Healthcare Providers:https://w [employer]/Docu ments/Xpert%20Xpres s%20SARS%20CoV-2/Fa ct%20Sheets/302-390 2%82HJOO-WAZ-5%20HE ALTHCARE%20PROVIDER S%20FACT%20SHEET.pd f Fact Sheet for Healthcare Patients:https://O[employer]/Docum ents/Xpert%20Xpress %20SARS%20Cov-2/Fac t%20Sheets/302-3801 %03DGSE-QPJ-5%20PAT IENT%20FACT%20SHEET .pdf Lab Interpretation Abnormal (test code = 68629-8) [facility]/RSV [id number] 19:00:00 Test Item Value Reference Range Interpretation Comments SARS-COV2/RT-PCR Positive Negative AA The SARS-Co V-2 target (test code = nucleic acids a re 8704468) detected in thi s specimen. The presence [...] individuals teressa pected [facility]. Results from th e Xpert Xpress SARS-CoV -2 test should be corre lated with the clinical hi story, epidemiological data, and other data elijah grewal to the clinician e valuating the patient. [...] The RSV ta rget nucleic code = 7529907) acids are no t detected in this [...] SARS-CoV-2/Flu/RSV by their healthcare provider. Results from [facility] Xpert Xpress SARS-CoV-2/Flu/RSV test should be correlated [...] of the Act.Fact Sheet for Healthcare Providers :https://www.[employer]/Documents/Xpert%20Xpress%20SARS%20CoV-2/Fact%20Sheets/3 02-3902%16OPNO-JXT-0%20HEALTHCARE%20PROVIDERS%20FACT%20SHEET.pdfFact Sheet for Healthcare Patients:https://www.[employer] /Documents/Xpert%20Xpress%20SARS%20Cov-2/Fact%20Sheets/302-3801%61PIKQ-EHD-6%20P ATIENT%20FACT%20SHEET.pdfUrinalysis w/Microscopic + Reflex to [id number] 17:43:00 Test Item Value Reference Range Interpretation Comments Color, UA (test code Yellow = 5778-6) Clarity, UA (test Hazy code = 5767-9) Specific [place], UA 1.031 1.001-1.035 (test code = 5811-5) pH, UA (test code = 6.0 5.0-8.0 5803-2) Protein, UA (test 70 mg/dL Negative A code = 21892-2) Glucose, UA (test Negative Negative code = 365) Ketones, UA (test Trace Negative A code = 2514-8) Bilirubin, UA (test Negative Negative code = 25669-5) Blood, UA (test code Moderate Negative A = 32378-7) Nitrite, UA (test Negative Negative code = 5802-4) Leukocytes, UA (test Small Negative A code = 5799-2) Urobilinogen, UA 0.2 mg/dL 0.2-1 (test code = 97389-6) RBC, UA (test code = 27 See_Comment [Autom ated 24055-1) message] The system which generated this result [...] Bacteria, UA (test None Seen code = 39085-1) Mucus (test code = Rare 8247-9) Squam Epithel, UA <1 See_Comment [Automate d (test code = 31037-5) messag e] The system which generated this result transmitted reference range : /HPF. The reference range was not used to interpret this result as normal/abnormal . Hyaline Casts, UA 3 See_Comment [Automate d (test code = 84017-3) messag e] The system which generated this result transmitted reference range : /LPF. The reference range was not used to interpret this result as normal/abnormal . Crystals, Urine (test None Seen code = 18929-7) Yeast (test code = Occasional 12802-0) Specimen Source (test code = 2795) STACY (test code = STACY) [employer] Wheel ID - [auto]Trimmer Buffing Wheel ID - tech Lab Interpretation Abnormal (test code = 58903-9) [facility] Reflex to Culture 2021-04-01 17:43:00 Test Item Value Reference Range Interpretation Comments Color, UA (test code Yellow = 5778-6) Clarity, UA (test Hazy code = 5767-9) Specific [place], UA 1.031 1.001-1.035 (test code = 5811-5) pH, UA (test code = 6.0 5.0-8.0 5803-2) Protein, UA (test 70 mg/dL Negative A code = 77673-8) Glucose, UA (test Negative Negative code = 365) Ketones, UA (test Trace Negative A code = 2514-8) Bilirubin, UA (test Negative Negative code = 92594-5) Blood, UA (test code Moderate Negative A = 20916-2) Nitrite, UA (test Negative Negative code = 5802-4) Leukocytes, UA (test Small Negative A code = 5799-2) Urobilinogen, UA 0.2 mg/dL 0.2-1.0 (test code = 40969-2) RBC, UA (test code = 27 See_Comment [Autom ated 15421-7) message] The system which generated this result [...] Bacteria, UA (test None Seen code = 06273-8) Mucus (test code = Rare 8247-9) Squam Epithel, UA <1 See_Comment [Automate d (test code = 96755-4) messag e] The system which generated this result transmitted reference range : /HPF. The reference range was not used to interpret this result as normal/abnormal . Hyaline Casts, UA 3 See_Comment [Automate d (test code = 65187-5) messag e] The system which generated this result transmitted reference range : /LPF. The reference range was not used to interpret this result as normal/abnormal . Crystals, Urine (test None Seen code = 42491-7) Yeast (test code = Occasional 11484-8) Specimen Source (test code = 2795) STACY (test code = STACY) [employer] Wheel ID - [auto]Trimmer [employer] Wheel ID - tech Lab Interpretation Abnormal (test code = 91607-7) [facility]/Microscopic + Reflex to Culture 2021-04-01 17:43:00 Test Item Value Reference Range Interpretation Comments Color, UA (test code Yellow = 5778-6) Clarity, UA (test Hazy code = 5767-9) Specific [place], UA 1.031 1.001-1.035 (test code = 5811-5) pH, UA (test code = 6.0 5.0-8.0 5803-2) Protein, UA (test 70 mg/dL Negative A code = 03115-8) Glucose, UA (test Negative Negative code = 365) Ketones, UA (test Trace Negative A code = 2514-8) Bilirubin, UA (test Negative Negative code = 76559-0) Blood, UA (test code Moderate Negative A = 72666-6) Nitrite, UA (test Negative Negative code = 5802-4) Leukocytes, UA (test Small Negative A code = 5799-2) Urobilinogen, UA 0.2 mg/dL 0.2-1.0 (test code = 66306-4) RBC, UA (test code = 27 See_Comment [Autom ated 09672-2) message] The system which generated this result [...] Bacteria, UA (test None Seen code = 38665-7) Mucus (test code = Rare 8247-9) Squam Epithel, UA <1 See_Comment [Automate d (test code = 09882-4) messag e] The system which generated this result transmitted reference range : /HPF. The reference range was not used to interpret this result as normal/abnormal . Hyaline Casts, UA 3 See_Comment [Automate d (test code = 80689-7) messag e] The system which generated this result transmitted reference range : /LPF. The reference range was not used to interpret this result as normal/abnormal . Crystals, Urine (test None Seen code = 87062-8) Yeast (test code = Occasional 34526-6) Specimen Source (test code = 2795) STACY (test code = STACY) [employer] ID - [auto]Trimmer [employer] Wheel ID - tech Lab Interpretation Abnormal (test code = 01891-3) [facility]/Microscopic + Reflex to Culture 2021-04-01 17:43:00 Test Item Value Reference Range Interpretation Comments Color, UA (test code Yellow = 5778-6) Clarity, UA (test Hazy code = 5767-9) Specific [place], UA 1.031 1.001-1.035 (test code = 5811-5) pH, UA (test code = 6.0 5.0-8.0 5803-2) Protein, UA (test 70 mg/dL Negative A code = 47444-9) Glucose, UA (test Negative Negative code = 365) Ketones, UA (test Trace Negative A code = 2514-8) Bilirubin, UA (test Negative Negative code = 29023-0) Blood, UA (test code Moderate Negative A = 31033-2) Nitrite, UA (test Negative Negative code = 5802-4) Leukocytes, UA (test Small Negative A code = 5799-2) Urobilinogen, UA 0.2 mg/dL 0.2-1.0 (test code = 38744-4) RBC, UA (test code = 27 See_Comment [Autom ated 29498-7) message] The system which generated this result [...] Bacteria, UA (test None Seen code = 40743-1) Mucus (test code = Rare 8247-9) Squam Epithel, UA <1 See_Comment [Automate d (test code = 42884-8) messag e] The system which generated this result transmitted reference range : /HPF. The reference range was not used to interpret this result as normal/abnormal . Hyaline Casts, UA 3 See_Comment [Automate d (test code = 40514-6) messag e] The system which generated this result transmitted reference range : /LPF. The reference range was not used to interpret this result as normal/abnormal . Crystals, Urine (test None Seen code = 98369-1) Yeast (test code = Occasional 41409-0) Specimen Source (test code = 2795) STACY (test code = STACY) [employer] ID - [auto]Tr[employer] Wheel ID - tech Lab Interpretation Abnormal (test code = 15600-0) [facility]/ [facility]FLEX URINE [id number] 17:43:00 Test Item Value Reference Range Interpretation [...] 1585) Occasional SOURCE(BEAKER) (test code = 2795) [employer] ID - [auto][employer] [facility] [id number] 17:22:00 Test Item Value Reference Range Interpretation Comments Sodium (test code = 143 meq/L 526-870 9056-2) Potassium (test code = 3.3 meq/L 3.5-5.1 L 2823-3) Chloride (test code = 117 meq/L 98-107 H 2075-0) CO2 (test code = 18 meq/L 22-29 L 2028-9) BUN (test code = 44 mg/dL 7-21 H 3094-0) Creatinine (test code 0.87 mg/dL 0.57-1.25 = 2160-0) Glucose (test code = 170 mg/dL 70-105 H 2345-7) Calcium (test code = 7.4 mg/dL 8.4-10.2 L 44999-2) EGFR (test code = 85 mL/min/1.73 [place] [address]-8) NOT ACCURATE CREATININE CLEARANCE IN PREDICTING GLOMERULAR FILTRATION RATE . ESTIMATED GFR I S NOT APPLICABLE FOR DIALYSIS PATIENTS. STACY (test code = STACY) [employer] Wheel ID - BS Lab Interpretation Abnormal (test code = 99846-1) [facility] Met[facility] [id number] 17:22:00 Test Item Value Reference Range Interpretation Comments Sodium (test code = 143 meq/L 069-249 6693-2) Potassium (test code = 3.3 meq/L 3.5-5.1 L 2823-3) Chloride (test code = 117 meq/L 98-107 H 2075-0) CO2 (test code = 18 meq/L 22-29 L 2028-9) BUN (test code = 44 mg/dL 7-21 H 3094-0) Creatinine (test code 0.87 mg/dL 0.57-1.25 = 2160-0) Glucose (test code = 170 mg/dL 70-105 H 2345-7) Calcium (test code = 7.4 mg/dL 8.4-10.2 L 28099-9) EGFR (test code = 85 mL/min/1.[place] [address]-1) NOT ACCURATE CREATININE CLEARANCE IN PREDICTING GLOMERULAR FILTRATION RATE . ESTIMATED GFR I S NOT APPLICABLE FOR DIALYSIS PATIENTS. STACY (test code = STACY) [employer] Wheel ID - BS Lab Interpretation Abnormal (test code = 75129-0) [facility] Metabolic [id number] 17:22:00 Test Item Value Reference Range Interpretation Comments Sodium (test code = 143 meq/L 949-047 9810-2) Potassium (test code = 3.3 meq/L 3.5-5.1 L 2823-3) Chloride (test code = 117 meq/L 98-107 H 2075-0) CO2 (test code = 18 meq/L 22-29 L 2028-9) BUN (test code = 44 mg/dL 7-21 H 3094-0) Creatinine (test code 0.87 mg/dL 0.57-1.25 = 2160-0) Glucose (test code = 170 mg/dL 70-105 H 2345-7) Calcium (test code = 7.4 mg/dL 8.4-10.2 L 92338-3) EGFR (test code = 85 mL/min/1.[place] [address]-8) NOT ACCURATE CREATININE CLEARANCE IN PREDICTING GLOMERULAR FILTRATION RATE . ESTIMATED GFR I S NOT APPLICABLE FOR DIALYSIS PATIENTS. STACY (test code = STACY) [employer] Wheel ID - BS Lab Interpretation Abnormal (test code = 79023-6) [facility] Metabolic [id number] 17:22:00 Test Item Value Reference Range Interpretation Comments Sodium (test code = 143 meq/L 270-425 8781-2) Potassium (test code = 3.3 meq/L 3.5-5.1 L 2823-3) Chloride (test code = 117 meq/L 98-107 H 2075-0) CO2 (test code = 18 meq/L 22-29 L 2028-9) BUN (test code = 44 mg/dL 7-21 H 3094-0) Creatinine (test code 0.87 mg/dL 0.57-1.25 = 2160-0) Glucose (test code = 170 mg/dL 70-105 H 2345-7) Calcium (test code = 7.4 mg/dL 8.4-10.2 L 83860-4) EGFR (test code = 85 mL/min/1.[place] [address]-5) NOT ACCURATE CREATININE CLEARANCE IN PREDICTING GLOMERULAR FILTRATION RATE . ESTIMATED GFR I S NOT APPLICABLE FOR DIALYSIS PATIENTS. STACY (test code = STACY) [employer] Wheel ID - BS Lab Interpretation Abnormal (test code = 60067-2) [facility] METABOLIC [id number] 17:22:00 Test Item Value Reference Range Interpretation [...] S NOT APPLICABLE FOR DIALYSIS PATIEN TS. [employer] Wheel ID - BSPOCT-GLUCOSE [id number] 17:03:00 Test Item Value Reference Range Interpretation Comments POC-GLUCOSE METER 161 mg/dL 70-110 H : TESTED A T [facility] 6720 (BEAKER) (test code = ROMINA Payne [facility], 1538) 01789: Trimmer Buffing Wheel/Techni tressa ID = [id number] for ASHLEY MATA POCT-GLUCOSE [id number] 11:55:00 Test Item Value Reference Range Interpretation Comments POC-GLUCOSE METER 171 mg/dL 70-110 H : TESTED A T [facility] 6720 (BEAKER) (test code = [facility], 1538) 91121: Trimmer [employer]ing Wheel/Techni tressa ID = [id number] for ASHLEY MATA Vancomycin level, [id number] 11:02:00 Test Item Value Reference Range Interpretation Comments Vancomycin Tr (test code = 19.1 ug/mL 10-20 4092-3) STACY (test code = STACY) [employer] ID - WINNIE C Lab Interpretation (test Normal code = 82544-0) [facility] HospitalVancomycin level, [id number] 11:02:00 Test Item Value Reference Range Interpretation Comments Vancomycin Tr (test code = 19.1 ug/mL 10.0-20.0 4092-3) STACY (test code = STACY) [employer] ID - WINNIE C Lab Interpretation (test Normal code = 26261-5) [facility] HospitalVancom[facility] level, [id number] 11:02:00 Test Item Value Reference Range Interpretation Comments Vancomycin Tr (test code = 19.1 ug/mL 10.0-20.0 4092-3) STACY (test code = STACY) [employer] Wheel ID - WINNIE C Lab Interpretation (test Normal code = 03842-6) [facility] HospitalVancomycin level, [id number] 11:02:00 Test Item Value Reference Range Interpretation Comments Vancomycin Tr (test code = 19.1 ug/mL 10.0-20.0 4092-3) STACY (test code = STACY) [employer] Wheel ID - WINNIE C Lab Interpretation (test Normal code = 02087-6) [facility] HospitalVANCOMYCIN LEVEL, [id number] 11:02:00 Test Item Value Reference Range Interpretation Comments VANCOMYCIN TROUGH (BEAKER) (test 19.1 ug/mL 10.0-20.0 code = 522) [employer] ID - WINNIE CCreatine Kinase (CK)2021-04-01 06:28:00 Test Item Value Reference Range Interpretation Comments Total CK (test code = 19 U/L 29-200 L 2157-6) STACY (test code = STACY) [employer] Wheel ID - MERT L Lab Interpretation (test Abnormal code = 08633-7) [facility] HospitalCreatine Kinase (CK)2021-04-01 06:28:00 Test Item Value Reference Range Interpretation Comments Total CK (test code = 19 U/L 29-200 L 2157-6) STACY (test code = STACY) [employer] Wheel ID - PIAYA L Lab Interpretation (test Abnormal code = 86953-2) [facility] HospitalCreatine Kinase (CK)2021-04-01 06:28:00 Test Item Value Reference Range Interpretation Comments Total CK (test code = 19 U/L 29-200 L 2157-6) STACY (test code = STACY) [employer] Wheel ID - PIAYA L Lab Interpretation (test Abnormal code = 19528-3) [facility] HospitalCreatine Kinase (CK)2021-04-01 06:28:00 Test Item Value Reference Range Interpretation Comments Total CK (test code = 19 U/L 29-200 L 2157-6) STACY (test code = STACY) [employer] Wheel ID - PIAYA L Lab Interpretation (test Abnormal code = 09182-9) [facility] HospitalBASIC METABOLIC [id number] 06:28:00 Test Item Value Reference Range Interpretation [...] S NOT APPLICABLE FOR DIALYSIS PATIEN TS. [employer] Wheel ID - MERT LCREATINE KINASE (CK)2021-04-01 06:28:00 Test Item Value Reference Range Interpretation Comments CREATINE KINASE TOTAL (BEAKER) (test 19 U/L 29-200 L code = 380) [employer] Wheel ID - MERT LHepatic function [id number] 06:09:00 Test Item Value Reference Range Interpretation [...] 2.1 g/dL 3.5-5 L Specime n slightly 40315-1) hemolyzed Total Bilirubin (test 0.4 mg/dL 0.2-1.2 [...] 1742-6) hemolyzed STACY (test code = STACY) [employer] Wheel ID - MERT [place] Lab Interpretation Abnormal (test code = 44110-5) [facility] HospitalPhosphorus2021-09-07 06:09:00 Test Item Value Reference Range Interpretation Comments Phosphorus (test code 2.9 mg/dL 2.3-4.7 Specim en = 2777-1) slightly hemolyzed STACY (test code = STACY) [employer] Wheel ID - PIAYA L Lab Interpretation Normal (test code = 49726-4) [facility] HospitalHepatic function [id number] 06:09:00 Test Item Value Reference Range Interpretation [...] 2.1 g/dL 3.5-5.0 L Specime n slightly 30076-7) hemolyzed Total Bilirubin (test 0.4 mg/dL 0.2-1.2 [...] 1742-6) hemolyzed STACY (test code = STACY) [employer] Wheel ID - PIAYA L Lab Interpretation Abnormal (test code = 56729-1) [facility] HospitalPhosphorus2021-09-07 06:09:00 Test Item Value Reference Range Interpretation Comments Phosphorus (test code 2.9 mg/dL 2.3-4.7 Specim en = 2777-1) slightly hemolyzed STACY (test code = STACY) [employer] Wheel ID - PIAYA L Lab Interpretation Normal (test code = 16135-1) [facility] HospitalHepatic function [id number] 06:09:00 Test Item Value Reference Range Interpretation [...] 2.1 g/dL 3.5-5.0 L Specime n slightly 45855-4) hemolyzed Total Bilirubin (test 0.4 mg/dL 0.2-1.2 [...] 1742-6) hemolyzed STACY (test code = STACY) [employer] Wheel ID - PIAYA L Lab Interpretation Abnormal (test code = 53068-3) [facility] HospitalPhosphorus2021-09-07 06:09:00 Test Item Value Reference Range Interpretation Comments Phosphorus (test code 2.9 mg/dL 2.3-4.7 Specim en = 2777-1) slightly hemolyzed STACY (test code = STACY) [employer] Wheel ID - PIAYA L Lab Interpretation Normal (test code = 94223-0) [facility] HospitalHepatic function [id number] 06:09:00 Test Item Value Reference Range Interpretation [...] 2.1 g/dL 3.5-5.0 L Specime n slightly 48241-3) hemolyzed Total Bilirubin (test 0.4 mg/dL 0.2-1.2 [...] 1742-6) hemolyzed STACY (test code = STACY) [employer] Wheel ID - PIAYA L Lab Interpretation Abnormal (test code = 82622-2) [facility] HospitalPhosphorus2021-09-07 06:09:00 Test Item Value Reference Range Interpretation Comments Phosphorus (test code 2.9 mg/dL 2.3-4.7 Specim en = 2777-1) slightly hemolyzed STACY (test code = STACY) [employer] Wheel ID - PIAYA L Lab Interpretation Normal (test code = 95106-6) [facility] HospitalMAGNESIUM2021-09-07 06:09:00 Test Item Value Reference Range Interpretation Comments MAGNESIUM (BEAKER) 1.5 mg/dL 1.6-2.6 L Specimen slightly (test code = 627) hemolyzed [employer] ID - PIAYA [id number] 06:09:00 Test Item Value Reference Range Interpretation Comments PHOSPHORUS (BEAKER) 2.9 mg/dL 2.3-4.7 Specimen slightly (test code = 604) hemolyzed [employer] Wheel ID - PIAYA LHEPATIC FUNCTION [id number] 06:09:00 Test Item Value Reference Range Interpretation [...] Specimen slightly (test code = 347) hemolyzed [employer] Wheel ID - PIAYA LC-REACTIVE [id number] 06:09:00 Test Item Value Reference Range Interpretation Comments C-REACTIVE PROTEIN (BEAKER) (test 2.48 mg/dL 0.00-0.50 H code = 676) [employer] Wheel ID - MERT Friaslcium, [id number] 06:05:00 Test Item Value Reference Range Interpretation Comments Calcium, Ion (test code = 1993-09) 1.11 mmol/L 1.12-1.27 L pH, Blood (test code = 52181-2) 7.37 Lab Interpretation (test code = Abnormal 93941-5) [facility] HospitalCalcium, [id number] 06:05:00 Test Item Value Reference Range Interpretation Comments Calcium, Ion (test code = 1993-09) 1.11 mmol/L 1.12-1.27 L pH, Blood (test code = 40470-6) 7.37 Lab Interpretation (test code = Abnormal 82008-3) [facility] HospitalCalcium, [id number] 06:05:00 Test Item Value Reference Range Interpretation Comments Calcium, Ion (test code = 1993-09) 1.11 mmol/L 1.12-1.27 L pH, Blood (test code = 73623-1) 7.37 Lab Interpretation (test code = Abnormal 67821-7) [facility] HospitalCalcium, [id number] 06:05:00 Test Item Value Reference Range Interpretation Comments Calcium, Ion (test code = 1993-09) 1.11 mmol/L 1.12-1.27 L pH, Blood (test code = 45607-9) 7.37 Lab Interpretation (test code = Abnormal 18735-6) [facility] HospitalCALCIUM, [id number] 06:05:00 Test Item Value Reference Range Interpretation Comments CALCIUM IONIZED (BEAKER) (test 1.11 mmol/L 1.12-1.27 L code = 698) PH, BLOOD (BEAKER) (test code = 7.37 1810) POCT-GLUCOSE [id number] 05:57:00 Test Item Value Reference Range Interpretation Comments POC-GLUCOSE METER 134 mg/dL 70-110 H : TESTED A T [facility] 6720 (BEAKER) (test code = ROMINA [place], 1538) 8[address]: Trimmer Buffing Wheel/Techni tressa ID = [id number] for KALPANA HANSEN CBC W/PLT COUNT & AUTO [id number] 05:52:00 Test Item Value Reference Range Interpretation [...] IMMATURE GRANULOCYTES-RELATIVE 2 % 0-1 H PERCENT (YUSUFAKER) (test code = 2801) POCT-GLUCOSE [id number] 23:33:00 Test Item Value Reference Range Interpretation Comments POC-GLUCOSE METER 77 mg/dL 70-110 : TESTED A T [facility] 6720 (RENEA) (test code = ROMINA [place], 1538) 02213: Trimmer Buffing Wheel/Techni tressa ID = [id number] for Cart er (agency)[facility] 2D Echo W/Doppler(CW/PW/Color)2021-03-31 17:56:10Ejection FractionSLEH ECHO HEARTLAB MKCKESSON CPACSInterface, External Ris In - 03/31/2021 5:56 PM C DTTransthoracic Echocardiography Report (TTE) Demographics Patient Name KEVIN HAMMOND Date of Study 03/30/2021 Gender Male Visit Number [id number] Race Unknown Room Number C628 Number Date of 1945 Referring Physician JD JEFFERSON Age 75 year(s) Machine Wiper Mili Malagon [facility] Deckhand Clam Dredge Ger Hui Interpreting Doc Tolbert MD Physician [...] pressure is 30-35 mmHg (normal range). 3. Pzys-hc-lzciztrb mitral regurgitation. Previous Study No prior exam [...] regurgitation. Mitral Valve Mild MV leaflet thickening. Xuym-ky-vxwiwioc mitral regurgitation. Tricuspid Valve Trace tricuspid regurgitation. [...] LVOT CO: 5.76 l/min LVOT CI: 2.89 l/min/m^[facility]Do[facility](CW/PW/Color)2021-03-31 17:56:10Ejection FractionSLEH ECHO HEARTLAB [facility]Doppler(CW/PW/Color) 2021-03-31 17:56:10Ejection FractionSLE ECHO HEARTLAB [facility] W/Doppler(CW/PW/Color)2021-03-31 17:56:10Ejection FractionSLE ECHO HEARTLAB [facility] HospitalPOCT- GLUCOSE [id number] 15:39:00 Test Item Value Reference Range Interpretation Comments POC-GLUCOSE METER 81 mg/dL 70-110 : Notified RN/MD: TESTED (BEAKER) (test code AT [facility] [address] = 1538) [facility], 770 30: Trimmer Buffing Wheel/Techni tressa ID = [id number] for Jose J (contract)Shola oralia [id number] 13:30:00 Test Item Value Reference Range Interpretation Comments MAGNESIUM (BEAKER) (test code = 1.4 mg/dL 1.6-2.6 L 627) Trimmer [employer]ing Wheel ID - ERWIN [id number] 13:30:00 Test Item Value Reference Range Interpretation Comments PHOSPHORUS (BEAKER) (test code = 2.3 mg/dL 2.3-4.7 604) Trimmer Buffing Wheel ID - ERWIN FHEPATIC FUNCTION [id number] 13:30:00 Test Item Value Reference Range Interpretation [...] (test code = 19 U/L 6-55 347) Trimmer Buffing Wheel ID - ERWIN [facility]OLIC [id number] 13:30:00 Test Item Value Reference Range Interpretation [...] S NOT APPLICABLE FOR DIALYSIS PATIEN TS. Trimmer Buffing Wheel ID [place]on [place] FVancomycin level, [id number] 13:28:00 Test Item Value Reference Range Interpretation Comments Vancomycin Rm (test 43.6 ug/mL code = 85418-3) STACY (test code = Reference Range: No STACY) NormalsOperator [facility], [id number] 13:28:00 Test Item Value Reference Range Interpretation Comments Vancomycin Rm (test 43.6 ug/mL code = 91802-9) STACY (test code = Reference Range: No STACY) NormalsOperator [facility], [id number] 13:28:00 Test Item Value Reference Range Interpretation Comments Vancomycin Rm (test 43.6 ug/mL code = 61620-8) STACY (test code = Reference Range: No STACY) NormalsOperator ID [facility], [id number] 13:28:00 Test Item Value Reference Range Interpretation Comments Vancomycin Rm (test 43.6 ug/mL code = 62332-3) STACY (test code = Reference Range: No STACY) NormalsOperator [facility], [id number] 13:28:00 Test Item Value Reference Range Interpretation Comments VANCOMYCIN RANDOM (BEAKER) (test 43.6 ug/mL code = 523) Reference Range: No NormalsOperator [facility] ERWIN FCALCIUM, [id number] 13:24:00 Test Item Value Reference Range Interpretation Comments CALCIUM IONIZED (BEAKER) (test 1.09 mmol/L 1.12-1.27 L code = 698) PH, BLOOD ([facility]) (test code = 7.38 9950) CBC W/PLT COUNT & AUTO [id number] 13:14:00 Test Item Value Reference Range Interpretation Comments WHITE BLOOD CELL COUNT ([facility]) 11.2 K/ L 3.5-10.5 H (test code [...] PERCENT (BEAKER) (test code = 2801) POCT-GLUCOSE [id number] 12:20:00 Test Item Value Reference Range Interpretation Comments POC-GLUCOSE METER 81 mg/dL 70-110 : Notified RN/MD: TESTED (RENEA) (test code AT [facility] [address] = 1538) [facility], 770 30: Trimmer Buffing Wheel/Techni tressa ID = [id number] for Lux (contract), Shola barton POCT-GLUCOSE [id number] 10:10:00 Test Item Value Reference Range Interpretation Comments POC-GLUCOSE METER 90 mg/dL 70-110 : Notified RN/MD: TESTED (RENEA) (test code AT [facility] [address] = 1538) [facility], 770 30: Trimmer Buffing Wheel/Techni tressa ID = [id number] for Lux (contract), Shola barton RAD, ABDOMEN/KUB, 1 VIEW [id number] 01:44:00For bedside G-tube study. Call radiology for KUB when gastroview, 60 cc syringe, and water for flushing are at the bedside and nursing is ready/Reason for exam:->G-tube studyShould this be performedat the bedside?->Yes [facility] 1945 Sex: MFINAL REPORT EXAM/TECHNIQUE: Supine radiograph of the abdomen. INDICATION: Abdominal radiography from 03/30/2021. COMPARISON: Abdominal radiography from 03/30/2021. FINDINGS: Gastrostomy tube is present there is contrast in the stomach and in the small bowel. No acute osseous process. Impression: Gastrostomy tube is in the stomach in the small bowel. Signed: Galileo [facility]othe [facility] Verified Date/Time: 03/31/2021 01:44:07 Electronically signed by: GALILEO CUELLO MD on03/31/2021 01:44 AMXR abdomen / KUB 1 [id number] 01:44:00Interface, External Ris In - 03/31/2021 1:47 [...] Galileo Cuello MDReport Verified Date/Time: 03/31/2021 01:44:07 [facility]ABOLIC [id number] 00:40:00 Test Item Value Reference Range Interpretation [...] S NOT APPLICABLE FOR DIALYSIS PATIEN TS. Trimmer Buffing Wheel ID - DBPOCT-GLUCOSE [id number] 21:42:00 Test Item Value Reference Range Interpretation Comments POC-GLUCOSE METER 117 mg/dL 70-110 H : TESTED A T [facility] 6720 (BEAKER) (test code JORDYN [facility], = 1538) 89872: Trimmer Buffing Wheel/Techni tressa ID = [id number] for Kelsie anthony (agency)Marlo POCT-GLUCOSE [id number] 17:39:00 Test Item Value Reference Range Interpretation Comments POC-GLUCOSE METER 140 mg/dL 70-110 H [facility]EA[facility] (test code = ROMINA Payne [facility], 1538) [address]: Trimmer Buffing Wheel/Techni tressa ID = [id number] for AG UILAR, JOSE RAD, ABDOMEN/KUB, 1 VIEW [id number] 17:36:00Reason for exam:->peg placementShould this be performed at the bedside?->Yes [facility] : 1945 Sex: MFINAL [...] regional osseous structures are unremarkable. Signed: Jazmín Leeeport Verified Date/Time: 03/30/2021 17:36:33 Reading Location: [address] Consult Reading Room C METABOLIC [id number] 17:12:00 Test Item Value Reference Range Interpretation [...] S NOT APPLICABLE FOR DIALYSIS PATIEN TS. Trimmer Buffing Wheel ID - DBPOCT-GLUCOSE [id number] 13:04:00 Test Item Value Reference Range Interpretation Comments POC-GLUCOSE METER 101 mg/dL 70-110 : TESTED A T [facility] 67[address] (BEAKER) (test code = [place]ONANALISA [place], 1538) [address]: Trimmer Buffing Wheel/Techni tressa ID = [id number] for SHRUTI JOSE HELMS U/S, RENAL, [id number] 11:52:00Reason for exam:->akiShould this be performed at the bedside?->Yes [facility] : 1945 Sex: MFINAL [...] MDReport Verified Date/Time: 03/30/2021 11:52:42 Reading Location: [facility] C013W Consult Reading Room US renal [id number] 11:52:00Interface, External Ris In - 03/30/2021 11:54 [...] MDReport Verified Date/Time: 03/30/2021 11:52:42 Reading Location: [facility] B1 C013W Consult Reading Room [facility] METABOLIC [id number] 10:57:00 Test Item Value Reference Range Interpretation [...] S NOT APPLICABLE FOR DIALYSIS PATIEN TS. Trimmer Buffing Wheel ID - AAHAMIDBASIC METABOLIC [id number] 05:59:00 Test Item Value Reference Range Interpretation [...] S NOT APPLICABLE FOR DIALYSIS PATIEN TS. Trimmer Buffing Wheel ID - DBCREATINE KINASE (CK)2021-03-30 05:40:00 Test Item Value Reference Range Interpretation Comments CREATINE KINASE TOTAL (BEAKER) (test 43 U/L 29-200 code = 380) Trimmer Buffing Wheel ID - [id number] 05:33:00 Test Item Value Reference Range Interpretation Comments MAGNESIUM (BEAKER) (test code = 1.4 mg/dL 1.6-2.6 L 627) Trimmer Buffing Wheel ID - [id number] 05:33:00 Test Item Value Reference Range Interpretation Comments PHOSPHORUS (BEAKER) (test code = 1.6 mg/dL 2.3-4.7 L 604) Trimmer Buffing Wheel ID - DBHEPATIC FUNCTION [id number] 05:33:00 Test Item Value Reference Range Interpretation [...] (test code = 8 U/L 6-55 347) Trimmer Buffing Wheel ID - DBCREATINE KINASE (CK)2021-03-30 05:33:00 Test Item Value Reference Range Interpretation Comments CREATINE KINASE TOTAL (BEAKER) (test 42 U/L 29-200 code = 380) Trimmer Buffing Wheel ID - DBC-REACTIVE [id number] 05:33:00 Test Item Value Reference Range Interpretation Comments C-REACTIVE PROTEIN (BEAKER) (test 10.11 mg/dL 0.00-0.50 H code = 676) Trimmer Buffing Wheel ID - DBCALCIUM, [id number] 05:19:00 Test Item Value Reference Range Interpretation Comments CALCIUM IONIZED (BEAKER) (test 1.08 mmol/L 1.12-1.27 L code = 698) PH, BLOOD (BEAKER) (test code = 7.38 1810) POCT-GLUCOSE [id number] 05:14:00 Test Item Value Reference Range Interpretation Comments POC-GLUCOSE METER 127 mg/dL 70-110 H : TESTED Florinda Martinez [facility] 6720 (BEAKER) (test code JORDYN [facility], = 1538) 20405: Trimmer Buffing Wheel/Techni tressa ID = [id number] for Kelsie anthony (agency)Marlo CBC W/PLT COUNT & AUTO [id number] 05:03:00 Test Item Value Reference Range Interpretation [...] PERCENT (BEAKER) (test code = 2801) POCT-GLUCOSE [id number] 23:51:00 Test Item Value Reference Range Interpretation Comments POC-GLUCOSE METER 135 mg/dL 70-110 H : [facility]) [facility], = 1538) [address]: Trimmer Buffing Wheel/Techni tressa ID = [id number] for Kelsie anthony (agency)Marlo Creatinine, random [id number] 22:56:00 Test Item Value Reference Range Interpretation Comments Creatinine, Ur 88.5 mg/dL (test code = 2161-8) STACY (test code = Reference Range: No STACY) NormalsOperator ID - DB [facility] Hospitalodium, random [id number] 22:56:00 Test Item Value Reference Range Interpretation Comments Sodium Urine (test 80 meq/L code = 2955-3) STACY (test code = Reference Range: No STACY) NormalsOperator ID - DB [facility] HospitalCreatinine, random [id number] 22:56:00 Test Item Value Reference Range Interpretation Comments Creatinine, Ur 88.5 mg/dL (test code = 2161-8) STACY (test code = Reference Range: No STACY) NormalsOperator ID - DB [facility] Hospitalodium, random [id number] 22:56:00 Test Item Value Reference Range Interpretation Comments Sodium Urine (test 80 meq/L code = 2955-3) STACY (test code = Reference Range: No STACY) NormalsOperator ID - DB [facility] HospitalCreatinine, random [id number] 22:56:00 Test Item Value Reference Range Interpretation Comments Creatinine, Ur 88.5 mg/dL (test code = 2161-8) STACY (test code = Reference Range: No STACY) NormalsOperator ID - DB [facility] Hospitalodium, random [id number] 22:56:00 Test Item Value Reference Range Interpretation Comments Sodium Urine (test 80 meq/L code = 2955-3) STACY (test code = Reference Range: No STACY) NormalsOperator ID - DB [facility] HospitalCreatinine, random [id number] 22:56:00 Test Item Value Reference Range Interpretation Comments Creatinine, Ur 88.5 mg/dL (test code = 2161-8) STACY (test code = Reference Range: No STACY) NormalsOperator ID - DB [facility] Hospitalodium, random [id number] 22:56:00 Test Item Value Reference Range Interpretation Comments Sodium Urine (test 80 meq/L code = 2955-3) STACY (test code = Reference Range: No STACY) NormalsOperator ID - DB [facility] HospitalCREATININE, RANDOM [id number] 22:56:00 Test Item Value Reference Range Interpretation Comments CREATININE URINE (BEAKER) (test 88.5 mg/dL code = 375) Reference Range: No NormalsOperator ID - DBSODIUM, RANDOM [id number] 22:56:00 Test Item Value Reference Range Interpretation Comments SODIUM URINE (BEAKER) (test code = 80 meq/L 243) Reference Range: No NormalsOperator ID - DBOsmolality, [id number] 22:15:00 Test Item Value Reference Range Interpretation Comments Osmolality Serum (test 344 See_Comment H [Aut omated message] code = 2692-2) The system [employer] generated this result transmitted ref erence range: 275 - 29 5 mOsm/kg. The reference range was not used to int erpret this result as normal/abnormal . Lab Interpretation (test Abnormal code = 15085-4) [facility] HospitalOsmolality, [id number] 22:15:00 Test Item Value Reference Range Interpretation Comments Osmolality Serum (test 344 See_Comment H [Aut omated message] code = 2692-2) The system [employer] generated this result transmitted ref erence range: 275 - 29 5 mOsm/kg. The reference range was not used to int erpret this result as normal/abnormal . Lab Interpretation (test Abnormal code = 87887-0) [facility], [id number] 22:15:00 Test Item Value Reference Range Interpretation Comments Osmolality Serum (test 344 See_Comment H [Aut omated message] code = 2692-2) The system [employer] generated this result transmitted ref erence range: 275 - 29 5 mOsm/kg. The reference range was not used to int erpret this result as normal/abnormal . Lab Interpretation (test Abnormal code = 34016-1) [facility], [id number] 22:15:00 Test Item Value Reference Range Interpretation Comments Osmolality Serum (test 344 See_Comment H [Aut omated message] code = 2692-2) The system [employer] generated this result transmitted ref erence range: 275 - 29 5 mOsm/kg. The reference range was not used to int erpret this result as normal/abnormal . Lab Interpretation (test Abnormal code = 20632-2) [facility], [id number] 22:15:00 Test Item Value Reference Range Interpretation Comments OSMOLALITY, SERUM (BEAKER) (test 344 mOsm/kg 275-295 H code = 615) BASIC METABOLIC [id number] 22:15:00 Test Item Value Reference Range Interpretation [...] S NOT APPLICABLE FOR DIALYSIS PATIEN TS. Trimmer Buffing Wheel ID - DBOsmgerrilitee, [id number] 22:10:00 Test Item Value Reference Range Interpretation Comments Osmolality, Ur (test code 769 See_Comment [ Automated message] = 2695-5) The system [employer] generated this result transmitted ref erence range: 50-1,200 mOsm/kg mOsm/kg . The reference range was not used to int erpret this result as normal/abnormal . Lab Interpretation (test Normal code = 07776-9) [facility], [id number] 22:10:00 Test Item Value Reference Range Interpretation Comments Osmolality, Ur (test code 769 See_Comment [ Automated message] = 2695-5) The system [employer] generated this result transmitted ref erence range: 50-1,200 mOsm/kg mOsm/kg . The reference range was not used to int erpret this result as normal/abnormal . Lab Interpretation (test Normal code = 03001-5) [facility], [id number] 22:10:00 Test Item Value Reference Range Interpretation Comments Osmolality, Ur (test code 769 See_Comment [ Automated message] = 2695-5) The system [employer] generated this result transmitted ref erence range: 50-1,200 mOsm/kg mOsm/kg . The reference range was not used to int erpret this result as normal/abnormal . Lab Interpretation (test Normal code = 31491-3) [facility] HospitalOsmrich squarelity, [id number] 22:10:00 Test Item Value Reference Range Interpretation Comments Osmolality, Ur (test code 769 See_Comment [ Automated message] = 2695-5) The system [employer] generated this result transmitted ref erence range: 50-1,200 mOsm/kg mOsm/kg . The reference range was not used to int erpret this result as normal/abnormal . Lab Interpretation (test Normal code = 71675-1) [facility] HospitalOSMNORTHER[facility], [id number] 22:10:00 Test Item Value Reference Range Interpretation Comments OSMOLALITY URINE 769 mOsm/kg See_Comment [Automated message] (BEAKER) (test code = The sy stem which 614) generated this result transmitted ref erence range: 50-1,200 mOsm/kg. The reference range was not used to int erpret this result as normal/abnormal . Protein, random [id number] 18:44:00 Test Item Value Reference Range Interpretation Comments Protein, Urine (test code = <68 0-14 H 2888-6) STACY (test code = STACY) Trimmer Buffing Wheel ID - DB Lab Interpretation (test Abnormal code = 61228-1) [facility] HospitalProtein, random [id number] 18:44:00 Test Item Value Reference Range Interpretation Comments Protein, Urine (test code = <68 0-14 H 2888-6) STACY (test code = STAYC) Trimmer Buffing Wheel ID - DB Lab Interpretation (test Abnormal code = 85274-2) [facility] HospitalProtein, random [id number] 18:44:00 Test Item Value Reference Range Interpretation Comments Protein, Urine (test code = <68 0-14 H 2888-6) STACY (test code = STACY) Trimmer Buffing Wheel ID - DB Lab Interpretation (test Abnormal code = 55975-9) [facility] HospitalProtein, random [id number] 18:44:00 Test Item Value Reference Range Interpretation Comments Protein, Urine (test code = <68 0-14 H 2888-6) STACY (test code = STACY) Trimmer Buffing Wheel ID - DB Lab Interpretation (test Abnormal code = 51552-2) [facility] HospitalPROTEIN, RANDOM [id number] 18:44:00 Test Item Value Reference Range Interpretation Comments PROTEIN, URINE (BEAKER) (test code = < mg/dL 0-14 H 1569) Trimmer Buffing Wheel ID - DBCREATININE, RANDOM [id number] 18:22:00 Test Item Value Reference Range Interpretation Comments CREATININE URINE (BEAKER) (test 105.0 mg/dL code = 375) Reference Range: No NormalsOperator ID - DBSODIUM, RANDOM [id number] 18:22:00 Test Item Value Reference Range Interpretation Comments SODIUM URINE (BEAKER) (test code = 47 meq/L 243) Reference Range: No NormalsOperator ID - DBOSMOLALITY, [id number] 18:03:00 Test Item Value Reference Range Interpretation Comments OSMOLALITY URINE 662 mOsm/kg See_Comment [Automated message] (BEAKER) (test code = The sy stem which 614) generated this result transmitted ref erence range: 50-1,200 mOsm/kg. The reference range was not used to int erpret this result as normal/abnormal . POCT-GLUCOSE [id number] 17:36:00 Test Item Value Reference Range Interpretation Comments POC-GLUCOSE METER 146 mg/dL 70-110 H : TESTED A T [facility] (BEAKER) (test code = ROMINA Payne [facility], 1538) 517[address]: Trimmer Buffing Wheel/Techni tressa ID = [id number] for Analisa monroy (contract), Yuli lisa BASIC METABOLIC [id number] 17:08:00 Test Item Value Reference Range Interpretation [...] S NOT APPLICABLE FOR DIALYSIS PATIEN TS. Trimmer Buffing Wheel ID - AAHAMIDValproic acid level, [id number] 17:07:00 Test Item Value Reference Range Interpretation Comments Valproic Acid, Total <2 50-100 L (test code = 4086-5) STACY (test code = STACY) Therapeutic range for some clinical conditions may be >100 ug/mLOperator ID - AAHAMID Lab Interpretation (test Abnormal code = 89705-0) [facility] HospitalPhenytoin level, [id number] 17:07:00 Test Item Value Reference Range Interpretation Comments Phenytoin (test code = <0.5 10-20 L 3968-5) STACY (test code = STACY) Trimmer Buffing Wheel ID - AAHAMID Lab Interpretation (test Abnormal code = 55118-9) [facility] HospitalValproic acid level, [id number] 17:07:00 Test Item Value Reference Range Interpretation Comments Valproic Acid, Total <2 50-100 L (test code = 4086-5) STACY (test code = STACY) Therapeutic range for some clinical conditions may be >100 ug/mLOperator ID - AAHAMID Lab Interpretation (test Abnormal code = 40279-8) [facility] HospitalPhenytoin level, [id number] 17:07:00 Test Item Value Reference Range Interpretation Comments Phenytoin (test code = <0.5 10.0-20.0 L 3968-5) STACY (test code = STACY) Trimmer Buffing Wheel ID - AAHAMID Lab Interpretation (test Abnormal code = 01094-8) [facility] HospitalValproic acid level, [id number] 17:07:00 Test Item Value Reference Range Interpretation Comments Valproic Acid, Total <2 50-100 L (test code = 4086-5) STACY (test code = STACY) Therapeutic range for some clinical conditions may be >100 ug/mLOperator ID - AAHAMID Lab Interpretation (test Abnormal code = 04797-8) [facility] HospitalPhenytoin level, [id number] 17:07:00 Test Item Value Reference Range Interpretation Comments Phenytoin (test code = <0.5 10.0-20.0 L 3968-5) STACY (test code = STACY) Trimmer Buffing Wheel ID - AAHAMID Lab Interpretation (test Abnormal code = 54760-1) [facility] HospitalValproic acid level, [id number] 17:07:00 Test Item Value Reference Range Interpretation Comments Valproic Acid, Total <2 50-100 L (test code = 4086-5) STACY (test code = STACY) Therapeutic range for some clinical conditions may be >100 ug/mLOperator ID - AAHAMID Lab Interpretation (test Abnormal code = 02701-7) [facility] HospitalPhenytoin level, [id number] 17:07:00 Test Item Value Reference Range Interpretation Comments Phenytoin (test code = <0.5 10.0-20.0 L 3968-5) STACY (test code = STACY) Trimmer Buffing Wheel ID - AAHAMID Lab Interpretation (test Abnormal code = 42359-4) [facility] HospitalVALPROIC ACID LEVEL, [id number] 17:07:00 Test Item Value Reference Range Interpretation Comments VALPROIC ACID TOTAL (BEAKER) (test < ug/mL 50-100 L code = 924) Therapeutic range for some clinical conditions may be >100 ug/mLOperator ID - AAHAMIDPHENYTOIN LEVEL, [id number] 17:07:00 Test Item Value Reference Range Interpretation Comments PHENYTOIN (DILANTIN) (BEAKER) (test < ug/mL 10.0-20.0 L code = 605) Trimmer Buffing Wheel ID - AAHAMIDBASIC METABOLIC [id number] 13:35:00 Test Item Value Reference Range Interpretation [...] S NOT APPLICABLE FOR DIALYSIS PATIEN TS. Trimmer Buffing Wheel ID - AAHAMIDPOCT-GLUCOSE [id number] 12:55:00 Test Item Value Reference Range Interpretation Comments POC-GLUCOSE METER 113 mg/dL 70-110 H : TESTED A T [facility] (BEAKER) (test code = ROMINA [place], 1538) [address]: Trimmer Buffing Wheel/Techni tressa ID = [id number] for Analisa monroy (contract)Yuli BASIC METABOLIC [id number] 10:00:00 Test Item Value Reference Range Interpretation [...] S NOT APPLICABLE FOR DIALYSIS PATIEN TS. Trimmer Buffing Wheel ID - AAHAMIDB-type Natriuretic Factor (BNP)2021-03-29 09:49:00 Test Item Value Reference Range Interpretation Comments BNP (test code = 73332-3) 315 pg/mL 0-100 H STACY (test code = STACY) Trimmer Buffing Wheel ID - AAHAMID Lab Interpretation (test Abnormal code = 49439-0) [facility] HospitalB-type Natriuretic Factor (BNP)2021-03-29 09:49:00 Test Item Value Reference Range Interpretation Comments BNP (test code = 03574-3) 315 pg/mL 0-100 H STACY (test code = STACY) Trimmer Buffing Wheel ID - AAHAMID Lab Interpretation (test Abnormal code = 20694-8) [facility] HospitalB-type Natriuretic Factor (BNP)2021-03-29 09:49:00 Test Item Value Reference Range Interpretation Comments BNP (test code = 37993-8) 315 pg/mL 0-100 H STACY (test code = STACY) Trimmer Buffing Wheel ID - AASTEPHANYID Lab Interpretation (test Abnormal code = 83735-5) [facility] HospitalB-type Natriuretic Factor (BNP)2021-03-29 09:49:00 Test Item Value Reference Range Interpretation Comments BNP (test code = 21412-6) 315 pg/mL 0-100 H TSACY (test code = STACY) Trimmer Buffing Wheel ID - AASTEPHANYID Lab Interpretation (test Abnormal code = 87495-1) [facility] HospitalB-TYPE NATRIURETIC FACTOR (BNP)2021-03-29 09:49:00 Test Item Value Reference Range Interpretation Comments B-TYPE NATRIURETIC PEPTIDE (BEAKER) 315 pg/mL 0-100 H (test code = 700) Trimmer Buffing Wheel ID - WADEVANCOMYCIN LEVEL, [id number] 09:45:00 Test Item Value Reference Range Interpretation Comments VANCOMYCIN RANDOM (BEAKER) (test 6.7 ug/mL code = 523) Reference Range: No NormalsOperator ID - AASTEPHANYIDManual [id number] 07:17:00 Test Item Value Reference Range Interpretation [...] = 3438) STACY (test code = STACY) Trimmer Buffing Wheel ID - Daisy BurkhalterUser comments: Slide comments: Lab Interpretation Abnormal (test code = 26172-8) [facility] Skutkvbddzrm0728-80-60 07:17:00 Test Item Value Reference Range Interpretation [...] = 3438) STACY (test code = STACY) Trimmer Buffing Wheel ID - Daisy Franklin comments: Slide comments: Lab Interpretation Abnormal (test code = 65740-5) [facility] [id number] 07:17:00 Test Item Value Reference Range Interpretation [...] = 3438) STACY (test code = STACY) Trimmer Buffing Wheel ID - Daisy Franklin comments: Slide comments: Lab Interpretation Abnormal (test code = 47239-6) [facility] HospitalManual Cqhmrvhmqmuk9001-60-40 07:17:00 Test Item Value Reference Range Interpretation [...] = 3438) STACY (test code = STACY) Trimmer Buffing Wheel ID - Daisy Franklin comments: Slide comments: Lab Interpretation Abnormal (test code = 02267-9) [facility] HospitalCB W/PLT COUNT & AUTO [id number] 07:17:00 Test Item Value Reference Range Interpretation [...] CONCENTRATION Adequate (CELLAVISION)(BEAKER) (test code = 3438) [employer] ID - Daisy Franklin comments: Slide comments:TSH/Free T4 If [id number] 06:43:00 Test Item Value Reference Range Interpretation Comments TSH (test code = 1.408 See_Comment [Automated 53187-8) message] The system which generated this result transmit saulo reference range : 0.350 - 4.940 uIU/mL. The reference range was not used to interpret this result as normal/abnormal . STACY (test code = STACY) [employer] ID - AME Lab Interpretation Normal (test code = 32026-9) [facility] [id number] 06:43:00 Test Item Value Reference Range Interpretation Comments TSH (test code = 1.408 See_Comment [Automated 53810-3) message] The system which generated this result transmit saulo reference range : 0.350 - 4.940 uIU/mL. The reference range was not used to interpret this result as normal/abnormal . STACY (test code = STACY) [employer] ID - AME Lab Interpretation Normal (test code = 21363-4) [facility] [id number] 06:43:00 Test Item Value Reference Range Interpretation Comments TSH (test code = 1.408 See_Comment [Automated 10217-5) message] The system which generated this result transmit saulo reference range : 0.350 - 4.940 uIU/mL. The reference range was not used to interpret this result as normal/abnormal . STACY (test code = STACY) [employer] ID - AME M Lab Interpretation Normal (test code = 99515-1) [facility] T[facility] [id number] 06:43:00 Test Item Value Reference Range Interpretation Comments TSH (test code = 1.408 See_Comment [Automated 96336-2) message] The system which generated this result transmit saulo reference range : 0.350 - 4.940 uIU/mL. The reference range was not used to interpret this result as normal/abnormal . STACY (test code = STACY) [employer] ID - AME M Lab Interpretation Normal (test code = 54632-3) [facility] T4 IF [id number] 06:43:00 Test Item Value Reference Range Interpretation Comments THYROID STIMULATING HORMONE 1.408 uIU/mL 0.350-4.940 (BEAKER) (test code = 772) [employer] ID - AME MBASIC METABOLIC [id number] 06:03:00 Test Item Value Reference Range Interpretation [...] S NOT APPLICABLE FOR DIALYSIS PATIEN TS. [employer] ID - DBURINALYSIS W/ REFLEX URINE [id number] 03:52:00 Test Item Value Reference Range Interpretation [...] = 1521) SOURCE(BEAKER) (test code = 2795) [employer] ID - [auto][employer] ID - techLactic acid, [id number] 23:23:00 Test Item Value Reference Range Interpretation Comments Lactate, Venous (test code = 1.97 mmol/L 0.5-2.2 2872) STACY (test code = STACY) [employer] ID - DB Lab Interpretation (test Normal code = 58876-8) [facility] HospitalL[facility], [id number] 23:23:00 Test Item Value Reference Range Interpretation Comments Lactate, Venous (test code = 1.97 mmol/L 0.50-2.20 2872) STACY (test code = STACY) [employer] ID - DB Lab Interpretation (test Normal code = 82282-4) [facility] HospitalL[facility], [id number] 23:23:00 Test Item Value Reference Range Interpretation Comments Lactate, Venous (test code = 1.97 mmol/L 0.50-2.20 2872) STACY (test code = STACY) [employer] ID - DB Lab Interpretation (test Normal code = 48173-2) [facility] HospitalL[facility], [id number] 23:23:00 Test Item Value Reference Range Interpretation Comments Lactate, Venous (test code = 1.97 mmol/L 0.50-2.20 2872) STACY (test code = STACY) [employer] ID - DB Lab Interpretation (test Normal code = 75517-9) [facility] HospitalLACTIC ACID, [id number] 23:23:00 Test Item Value Reference Range Interpretation Comments LACTATE BLOOD VENOUS (2) (BEAKER) 1.97 mmol/L 0.50-2.20 (test code = 2872) [employer] ID - [id number] 23:21:00 Test Item Value Reference Range Interpretation [...] exclusion of thrombosis is within 95-100% range. PT/[id number] 23:19:00 Test Item Value Reference Interpretation Comments Range Protime (test code = 17.6 See_Comment H [Autom ated 5902-2) message] The system which generated this result transmitted reference range : 11.9 - 14.2 seconds. The reference range was not used to interpret this result as normal/abnormal . INR (test code = 1.47 See_Comment [Automated 6201-6) message] The system which generated this result transmitted reference range : <=5.90. The reference range was not used to interpret this result as normal/abnormal . PTT (test code = 35.1 See_Comment [Automated 60539-1) message] The system which generated this result [...] valves. Lab Interpretation Abnormal (test code = 98325-4) [facility] HospitalPT/[id number] 23:19:00 Test Item Value Reference Interpretation Comments [...] PTT (test code = 35.1 See_Comment [Automated 62184-8) message] The system which generated this result [...] valves. Lab Interpretation Abnormal (test code = 57884-9) [facility] HospitalPT/[id number] 23:19:00 Test Item Value Reference Interpretation Comments [...] PTT (test code = 35.1 See_Comment [Automated 87681-2) message] The system which generated this result [...] valves. Lab Interpretation Abnormal (test code = 21391-9) [facility]PT/[id number] 23:19:00 Test Item Value Reference Interpretation Comments [...] PTT (test code = 35.1 See_Comment [Automated 12857-4) message] The system which generated this result [...] valves. Lab Interpretation Abnormal (test code = 74172-6) [facility] HospitalPT/[id number] 23:19:00 Test Item Value Reference Range Interpretation [...] for patients with mechanical heart valves.COMPREHENSIVE METABOLIC [id number] 23:14:00 Test Item Value Reference Range Interpretation [...] S NOT APPLICABLE FOR DIALYSIS PATIEN TS. [employer] ID - DBBlood gas, [id number] 23:12:00 Test Item Value Reference Range Interpretation Comments pH, Arterial (test code 7.52 7.35-7.45 H = 2744-1) pCO2, Arterial (test 28 See_Comment L [Autom ated message] code = 2019-) The system [employer] generated this result transmit saulo reference range : 35 - 45 mm Hg. The reference range was not used to interpret this result as normal/abnormal . pO2, Arterial (test 186 See_Comment H [Automa saulo message] code = 2703-7) The system [employer] generated this result transmit saulo reference range [...] 44 Lab Interpretation Abnormal (test code = 06955-4) [facility] HospitalBlood gas, [id number] 23:12:00 Test Item Value Reference Range Interpretation Comments pH, Arterial (test code 7.52 7.35-7.45 H = 2744-1) pCO2, Arterial (test 28 See_Comment L [Autom ated message] code = 2019-02) The system [employer] generated this result transmit saulo reference range : 35 - 45 mm Hg. The reference range was not used to interpret this result as normal/abnormal . pO2, Arterial (test 186 See_Comment H [Automa saulo message] code = 2703-7) The system [employer] generated this result transmit saulo reference range [...] 44 Lab Interpretation Abnormal (test code = 71684-5) [facility] HospitalBlood gas, [id number] 23:12:00 Test Item Value Reference Range Interpretation Comments pH, Arterial (test code 7.52 7.35-7.45 H = 2744-1) pCO2, Arterial (test 28 See_Comment L [Autom ated message] code = 2019-8) The system [employer] generated this result transmit saulo reference range : 35 - 45 mm Hg. The reference range was not used to interpret this result as normal/abnormal . pO2, Arterial (test 186 See_Comment H [Automa saulo message] code = 2703-7) The system [employer] generated this result transmit saulo reference range [...] 44 Lab Interpretation Abnormal (test code = 19976-2) [facility] gas, [id number] 23:12:00 Test Item Value Reference Range Interpretation Comments pH, Arterial (test code 7.52 7.35-7.45 H = 2744-1) pCO2, Arterial (test 28 See_Comment L [Autom ated message] code = 2018-) The system [employer] generated this result transmit saulo reference range : 35 - 45 mm Hg. The reference range was not used to interpret this result as normal/abnormal . pO2, Arterial (test 186 See_Comment H [Automa saulo message] code = 2703-7) The system [employer] generated this result transmit saulo reference range [...] 44 Lab Interpretation Abnormal (test code = 01815-9) [facility] HospitalBLOOD GAS, [id number] 23:12:00 Test Item Value Reference Range Interpretation [...] (BEAKER) (test code = 1819) 44.0 CALCIUM, [id number] 23:12:00 Test Item Value Reference Range Interpretation Comments CALCIUM IONIZED (BEAKER) (test 1.08 mmol/L 1.12-1.27 L code = 698) PH, BLOOD (BEAKER) (test code = 7.51 1810) [id number] 23:10:00 Test Item Value Reference Range Interpretation Comments MAGNESIUM (BEAKER) 1.8 mg/dL 1.6-2.6 Specimen slightly (test code = 627) hemolyzed [employer] ID - [id number] 23:10:00 Test Item Value Reference Range Interpretation Comments PHOSPHORUS (BEAKER) 2.8 mg/dL 2.3-4.7 Specimen slightly (test code = 604) hemolyzed [employer] ID - DBCREATINE KINASE (CK)2021-03-28 23:10:00 Test Item Value Reference Range Interpretation Comments CREATINE KINASE TOTAL (BEAKER) (test 23 U/L 29-200 L code = 380) [employer] ID - DBC-REACTIVE [id number] 23:10:00 Test Item Value Reference Range Interpretation Comments C-REACTIVE PROTEIN (BEAKER) (test 14.35 mg/dL 0.00-0.50 H code = 676) [employer] ID - DBCBC (Hemogram only)2021-03-28 23:08:00 Test Item Value Reference Range Interpretation Comments WBC (test code = 6690-2) 11.6 See_Comment H [A utomated message] The system [employer] generated this result transmitted ref erence range: 3.5 - 10 .5 K/L. The refe rence range was not u sed to interpret this result as normal/abnor mal. RBC (test code = 789-8) 3.69 See_Comment L [Au tomated message] The system [employer] generated this result transmitted ref erence range: 4.63 - 6 .08 M/L. The refe rence range was not u sed to interpret this result as normal/abnor mal. MCHC (test code = 786-4) 29.6 See_Comment L [A utomated message] The system [employer] generated this result transmitted ref erence range: [...] See_Comment [Aut omated message] 777-3) The system [employer] generated this result transmitted ref erence range: 150 - 45 0 K/CU MM. The referen ce range was not u sed to interpret this result as normal/abnor mal. MPV (test code = 10.5 fL 9.4-12.4 01982-0) nRBC (test code = 413) 0 See_Comment [Aut omated message] The system [employer] generated this result transmitted ref erence range: 0 - 0 /1 00 WBC. The refere nce range was not u sed to interpret this result as normal/abnor mal. Lab Interpretation (test Abnormal code = 95290-0) [facility] (Hemogram only)2021-03-28 23:08:00 Test Item Value Reference Range Interpretation Comments WBC (test code = 6690-2) 11.6 See_Comment H [A utomated message] The system [employer] generated this result transmitted ref erence range: 3.5 - 10 .5 K/L. The refe rence range was not u sed to interpret this result as normal/abnor mal. RBC (test code = 789-8) 3.69 See_Comment L [Au tomated message] The system [employer] generated this result transmitted ref erence range: 4.63 - 6 .08 M/L. The refe rence range was not u sed to interpret this result as normal/abnor mal. MCHC (test code = 786-4) 29.6 See_Comment L [A utomated message] The system [employer] generated this result transmitted ref erence range: [...] See_Comment [Aut omated message] 777-3) The system [employer] generated this result transmitted ref erence range: 150 - 45 0 K/CU MM. The referen ce range was not u sed to interpret this result as normal/abnor mal. MPV (test code = 10.5 fL 9.4-12.4 74699-5) nRBC (test code = 413) 0 See_Comment [Aut omated message] The system [employer] generated this result transmitted ref erence range: 0 - 0 /1 00 WBC. The refere nce range was not u sed to interpret this result as normal/abnor mal. Lab Interpretation (test Abnormal code = 31449-5) [facility] (Hemogram only)2021-03-28 23:08:00 Test Item Value Reference Range Interpretation Comments WBC (test code = 6690-2) 11.6 See_Comment H [A utomated message] The system [employer] generated this result transmitted ref erence range: 3.5 - 10 .5 K/L. The refe rence range was not u sed to interpret this result as normal/abnor mal. RBC (test code = 789-8) 3.69 See_Comment L [Au tomated message] The system [employer] generated this result transmitted ref erence range: 4.63 - 6 .08 M/L. The refe rence range was not u sed to interpret this result as normal/abnor mal. MCHC (test code = 786-4) 29.6 See_Comment L [A utomated message] The system [employer] generated this result transmitted ref erence range: [...] See_Comment [Aut omated message] 777-3) The system [employer] generated this result transmitted ref erence range: 150 - 45 0 K/CU MM. The referen ce range was not u sed to interpret this result as normal/abnor mal. MPV (test code = 10.5 fL 9.4-12.4 49411-3) nRBC (test code = 413) 0 See_Comment [Aut omated message] The system [employer] generated this result transmitted ref erence range: 0 - 0 /1 00 WBC. The refere nce range was not u sed to interpret this result as normal/abnor mal. Lab Interpretation (test Abnormal code = 49975-7) [facility] (Hemogram only)2021-03-28 23:08:00 Test Item Value Reference Range Interpretation Comments WBC (test code = 6690-2) 11.6 See_Comment H [A utomated message] The system [employer] generated this result transmitted ref erence range: 3.5 - 10 .5 K/L. The refe rence range was not u sed to interpret this result as normal/abnor mal. RBC (test code = 789-8) 3.69 See_Comment L [Au tomated message] The system [employer] generated this result transmitted ref erence range: 4.63 - 6 .08 M/L. The refe rence range was not u sed to interpret this result as normal/abnor mal. MCHC (test code = 786-4) 29.6 See_Comment L [A utomated message] The system [employer] generated this result transmitted ref erence range: [...] See_Comment [Aut omated message] 777-3) The system [employer] generated this result transmitted ref erence range: 150 - 45 0 K/CU MM. The referen ce range was not u sed to interpret this result as normal/abnor mal. MPV (test code = 10.5 fL 9.4-12.4 06883-8) nRBC (test code = 413) 0 See_Comment [Aut omated message] The system [employer] generated this result transmitted ref erence range: 0 - 0 /1 00 WBC. The refere nce range was not u sed to interpret this result as normal/abnor mal. Lab Interpretation (test Abnormal code = 44771-3) [facility] (HEMOGRAM ONLY)2021-03-28 23:08:00 Test Item Value Reference [...] code = 413) RAD, ABDOMEN/KUB, 1 VIEW [id number] 22:32:00Reason for exam:->PEG tubeReason for exam:->Distended abdomen [facility] 1945 Sex: MFINAL REPORT TECHNIQUE: One view of the abdomen. INDICATION: 75-year-old man with gastrostomy tube and distended abdomen. COMPARISON: None. IMPRESSION:Gastrostomy tube terminates over the expected region of the distal stomach. Intact laparoscopic gastric band in place. Nonobstructive bowel gas pattern. No acute osseous abnormality. Soft tissues are unremarkable. Signed: Lacey Barretteport Verified Date/Time: 03/28/2021 22:32:51 Reading Location: [address] ConsultReading Room RAD, CHEST, 1 VIEW, NON [id number] 22:25:00Reason for exam:->COVID PNA [facility] : 1945 Sex: MFINAL [...] 22:25:25 XR chest 1 view portable / [id number] 22:25:00Interface, External Ris In - 03/28/2021 10:27 [...] by: SASHA WONG MD on 03/28/2021 10:25 [facility]:13[facility]00 Test Item Value Reference Range Interpretation Comments AMMONIA (test code = AMM) 93 umol/L 11-32 H
--- NOTE | 2021-04-08 20:52 | RAD REPORT ---
EXAM DESCRIPTION: RAD - ENTEROSTOMY TUBE CHECK W/CONTR - 04/08/2021 7:56 pm CLINICAL HISTORY: PEG tube leakage COMPARISON: Abdomen Pelvis W Contrast dated 04/06/2021 FINDINGS: Injection of contrast demonstrated opacification of the small bowel. Gastric lap band note d. IMPRESSION: Contrast within the small bowel confirms an endoluminal position.
[2021-04-08 21:17] LABS: Basophils % 0.7 % (0-1.3); Hematocrit 34.4 % (39.6-49.0); Lymphocytes % 11.6 % (15.3-44.8); MPV 9.1 fL (7.6-11.3); RBC Red Blood Cell Count 3.41 M/uL (4.33-5.43)
[2021-04-08 21:20] LABS: Protime INR 1.25
[2021-04-08 21:26] LABS: BUN Blood Urea Nitrogen 16 mg/dL (7-18); Bicarbonate 30 mmol/L (21-32); Glucose Level 73 mg/dL (74-106); Potassium 3.2 mmol/L (3.5-5.1); Sodium Level 154 mmol/L (136-145)
[2021-04-08] MEDS ORDERED: NA CHLORIDE 0.9% 1,000 ML ONE (22:07)
--- NOTE | 2021-04-08 23:33 | EDPHYS ---
Physician Documentation [facility] Name: Zbigniew Mitchell Age: 75 yrs Sex: Male : 1945 Arrival Date: 04/08/2021 Time: 18:44 Bed 27 Private MD: ED Physician Donny Perez HPI: 04/08 19:34 This 75 yrs old Male presents to ER via EMS with complaints of PEG tube mh7 drainage. 19:34 The patient represents for recheck after previously being evaluated for PEG tube mh7 leakage. The patient was previously evaluated in the emergency department yesterday. Previous care: Patient is seen here 3 times within the past week for same complaint. He has had CT scan of the abdomen that showed normal placement of the PEG tube. He has also been noted to have redness of skin surrounding PEG tube. PEG tube has been changed during one of his recent visits.. Previous testing: CBC, with leukocytosis, BMP, that was normal, CT scan of the abdomen and pelvis, Normal placement of PEG tube and no acute findings.. Present symptoms: Same as previous visits in the past week. The patient has experienced similar episodes in the past, multiple times. The patient has been recently seen at the [facility], this week. Historical: - Allergies: 18:48 PENICILLINS; ld1 - Home Meds: 18:48 Aricept 10 mg Oral tab 1 tab nightly [Active]; Aspercreme (lidocaine) 4 % Topical ptmd ld1 daily [Active]; Depakote ER 500 mg Oral Tb24 2 tabs nightly [Active]; Dilantin 100 mg Oral 2 tab twice a day [Active]; docusate sodium 100 mg Oral cap 2 times per day [Active]; Eliquis 2.5 mg Oral tab 1 tab 2 times per day [Active]; Eliquis 5 mg Oral tab 0.5 tab 2 times per day [Active]; famotidine 20 mg Oral tab every 12 hours [Active]; folic acid 1 mg Oral tab 1 tab once daily [Active]; furosemide 20 mg Oral tab 1 tab once daily [Active]; hydroxyzine HCl 25 mg Oral tab BID [Active]; magnesium oxide 400 mg magnesium Oral cap twice a day [Active]; megestrol 400 mg/10 mL (10 mL) Oral susp once daily [Active]; metoprolol tartrate 25 mg Oral tab 1 tab 2 times per day [Active]; Miralax 17 gram Oral pwpk 1 packet once daily [Active]; mupirocin 2 % Topical oint twice daily [Active]; Neurontin 100 mg Oral cap 3 times per day [Active]; nitroglycerin 0.4 mg Oral cpER PRN [Active]; [place] 5-325 mg Oral tab Q8H for Pain [Active]; Norvasc 2.5 mg Oral tab 1 tab twice a day [Active]; omeprazole 20 mg Oral cpDR 1 cap once daily [Active]; potassium chloride 10 mEq Oral cpER 1 cap once daily [Active]; Prozac 40 mg Oral cap 1 cap once daily [Active]; Synthroid 150 mcg Oral tab 1 tab once daily [Active]; trazodone 100 mg Oral tab 1 tab at bedtime [Active]; valproic acid 250 mg Oral cap twice daily [Active]; Vitamin C 500 mg Oral tab 500 mg daily [Active]; Vitamin D Oral 2000 unit daily [Active]; zinc sulfate 220 mg Oral cap daily [Active]; - PMHx: 18:48 Atrial Fib; Bipolar disorder; Bronchitis; Cervicalgia; Chronic pain; constipation; ld1 Dementia; 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 - Social history:: Smoking status: Patient denies any tobacco usage or history of. ROS: 19:34 Constitutional: Negative for fever, chills, and weight loss, Cardiovascular: Negative mh7 for chest pain, palpitations, and edema, Respiratory: Negative for shortness of breath, cough, wheezing, and pleuritic chest pain, Abdomen/GI: Negative for abdominal pain, nausea, vomiting, diarrhea, and constipation, Back: Negative for injury and pain, Neuro: Negative for headache, weakness, numbness, tingling, and seizure, Endocrine: Negative for neck swelling, polydipsia, polyuria, polyphagia, and marked weight changes, Hematologic/Lymphatic: Negative for swollen nodes, abnormal bleeding, and unusual bruising. Exam: 19:34 Constitutional: This is a well developed, well nourished patient who is awake, alert, mh7 and in no acute distress. Head/Face: Normocephalic, atraumatic. Eyes: Pupils equal round and reactive to light, extra-ocular motions intact. Lids and lashes normal. Conjunctiva and sclera are non-icteric and not injected. Cornea within normal limits. Periorbital areas with no swelling, redness, or edema. Neck: Trachea midline, no thyromegaly or masses palpated, and no cervical lymphadenopathy. Supple, full range of motion without nuchal rigidity, or vertebral point tenderness. No Meningismus. Chest/axilla: Normal chest wall appearance and motion. Nontender with no deformity. No lesions are appreciated. Cardiovascular: Regular rate and rhythm with a normal S1 and S2. No gallops, murmurs, or rubs. Normal PMI, no JVD. No pulse deficits. Respiratory: Lungs have equal breath sounds bilaterally, clear to auscultation and percussion. No rales, rhonchi or wheezes noted. No increased work of breathing, no retractions or nasal flaring. 19:34 Back: No spinal tenderness. No costovertebral tenderness. Full range of motion. 19:34 Abdomen/GI: Inspection: PEG tube in place with surrounding erythematous skin, Bowel sounds: normal, in all quadrants, Palpation: abdomen is soft and non-tender, in all quadrants, Indicators: McBurney's point is not tender, Thomas's sign is negative, Rovsing's sign is negative, Obturator sign is negative, Psoas sign is negative, Liver: no appreciated palpable abnormalities, Hernia: not appreciated. 19:34 Skin: Erythematous skin in the abdomen in the area of PEG tube. No swelling, tenderness, induration, or discharge.. 19:34 Neuro: Orientation: no acute changes, per EMS, Mentation: no acute changes, per EMS, mh7 Memory: no acute changes, per EMS, Cranial nerves: grossly normal, Motor: no acute changes, Sensation: no acute changes, Gait: not tested. seizure activity, is not displayed by the patient, Abnormal movements: there are no abnormal movements. Vital Signs: 18:45 BP 122 / 94; Pulse 52; Resp 17; Temp 98.3(O); Pulse Ox 97% on R/A; Weight 108.86 kg; ld1 Height 5 ft. 9 in. (175.26 cm); 19:15 BP 103 / 56; Pulse 69; Resp 18; Temp 98.3; Pulse Ox 97% on R/A; lh3 20:15 BP 97 / 67; Pulse 99; Resp 22; lh3 21:30 BP 104 / 57; Pulse 59; Resp 16; lh3 23:00 BP 119 / 60; Pulse 98; Resp 20; Temp 98.1(A); Pulse Ox 99% on R/A; cc4 04/09 01:15 BP 111 / 76; Pulse 92; Resp 20; Temp 97.8(A); Pulse Ox 100% on R/A; cc4 04/08 18:45 Body Mass Index 35.44 (108.86 kg, 175.26 cm) ld1 MDM: 04/08 23:26 Differential diagnosis: PEG tube malfunction, PEG tube mismanagement, cellulitis, mh7 contact dermatitis. Data reviewed: vital signs, nurses notes, EMS record, old medical records, lab test result(s), CBC, electrolytes, radiologic studies, plain films. Data interpreted: Pulse oximetry: on room air is 97 %. Interpretation: normal. 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 Response to treatment: the patient's symptoms have markedly improved after treatment. ED course: No acute distress, vital signs stable. PEG site clean, dry, intact with dressing applied to site. Will require frequent cleaning of site and dressing changes at nursing facility.. 23:32 Patient medically screened. [facility] 04/08 19:28 Order name: CBC with Diff; Complete Time: 21:25 [facility] 04/08 19:28 Order name: Basic Metabolic Panel; Complete Time: 21:31 [facility] 04/08 19:28 Order name: Protime (+inr); Complete Time: 21:31 [facility] 04/08 19:28 Order name: Ptt, Activated; Complete Time: 21:31 [facility] 04/08 19:28 Order name: PEG Tube Check w/contrast; Complete Time: 20:59 [facility] Administered Medications: 04/09 00:35 Discontinued: NS 0.9% 1000 ml IV at 1000 ml once cc4 04/08 21:50 Drug: NS 0.9% 1000 ml {Note: #20G saline lock inserted right AC x1 attempt with no lh3 difficulty, marc. well..} Route: IV; Rate: 1000 ml; Site: right antecubital; Disposition Summary: 04/08/21 23:32 Discharge Ordered Location: Home [facility] Problem: an ongoing problem [facility] Symptoms: have improved [facility] Condition: Stable 7 Diagnosis - PEG Tube Leakage mh7 - Hypernatremia, Chronic 7 - Gastrostomy complications mh7 - Contact Dermatitis Abdominal Wall, Chemical 7 Followup: [facility] - With: Private Physician - When: 1 - 2 days - Reason: Worsening of condition, Recheck today's complaints, Continuance of care, Re-evaluation by your physician Followup: [facility] - With: Zbigniew Joyce MD - When: 2 - 3 days - Reason: Worsening of condition, Recheck today's complaints Discharge Instructions: - Discharge Summary Sheet 7 - Gastrostomy Tube Home Guide, Adult 7 - PEG Tube Home Guide, [id number] 7 - Contact Dermatitis, [id number] 7 - Hypernatremia, Ukyo-af-Sche [facility] Forms: - Medication Reconciliation Form [facility] - Thank You Letter [facility] - Antibiotic Education [facility] - Prescription Opioid Use [facility] Signatures: Dispatcher [employer] Donny Rodriguez MD MD 7 Marisol Vasquez RN RN ld1 Kizzy Espinal RN RN lh3 Corrections: (The following items were deleted from the chart) 20:13 19:28 HEPATIC FUNCTION+C.LAB.BRZ ordered. EDMS EDMS
--- NOTE | 2021-04-08 23:33 | ER ---
Nurse's Notes [facility] Name: Zbigniew Mitchell Age: 75 yrs Sex: Male : 1945 Arrival Date: 04/08/2021 Time: 18:44 Bed 27 Private MD: Diagnosis: Hypernatremia, Chronic;Gastrostomy complications;Contact Dermatitis Abdominal Wall, Chemical Presentation: 04/08 18:45 Chief complaint: EMS states: toned out for PEG tube draining. Coronavirus screen: At ld1 this time, the client does not indicate any symptoms associated with coronavirus-19. Ebola Screen: No symptoms or risks identified at this time. Initial Sepsis Screen: Does the patient meet any 2 criteria? No. Patient's initial sepsis screen is negative. Does the patient have a suspected source of infection? No. Patient's initial sepsis screen is negative. Risk Assessment: Do you want to hurt yourself or someone else? Patient reports no desire to harm self or others. Onset of symptoms was April 08, 2021. 18:45 Method Of Arrival: EMS: [facility] ld1 18:45 Acuity: ANDRE 3 ld1 Triage Assessment: 18:48 General: Appears in no apparent distress. uncomfortable, Behavior is calm, cooperative, ld1 appropriate for age. Pain: Complains of pain in abdomen diffusely Pain does not radiate. Pain currently is 8 out of 10 on a pain scale. Quality of pain is described as burning, Pain began gradually, Is continuous. EENT: No signs and/or symptoms were reported regarding the EENT system. Neuro: Level of Consciousness is awake, alert, obeys commands, Oriented to person, place, time, situation, Appropriate for age. Cardiovascular: Capillary refill < 3 seconds Patient's skin is warm and dry. Respiratory: Airway is patent Respiratory effort is even, unlabored, Respiratory pattern is regular, symmetrical. GI: Abdomen is round non-distended, PEG tube clamped. Site reddened. Site with drainage. PEG tube leaking with yellow drainage. Skin around PEG tube is raw and peeling off. : Grya in place Urine is clear. Derm: Skin Skin around PEG tube is not intact. Musculoskeletal: No signs and/or symptoms reported regarding the musculoskeletal system. Historical: - Allergies: 18:48 PENICILLINS; ld1 - Home Meds: 18:48 Aricept 10 mg Oral tab 1 tab nightly [Active]; Aspercreme (lidocaine) 4 % Topical ptmd ld1 daily [Active]; Depakote ER 500 mg Oral Tb24 2 tabs nightly [Active]; Dilantin 100 mg Oral 2 tab twice a day [Active]; docusate sodium 100 mg Oral cap 2 times per day [Active]; Eliquis 2.5 mg Oral tab 1 tab 2 times per day [Active]; Eliquis 5 mg Oral tab 0.5 tab 2 times per day [Active]; famotidine 20 mg Oral tab every 12 hours [Active]; folic acid 1 mg Oral tab 1 tab once daily [Active]; furosemide 20 mg Oral tab 1 tab once daily [Active]; hydroxyzine HCl 25 mg Oral tab BID [Active]; magnesium oxide 400 mg magnesium Oral cap twice a day [Active]; megestrol 400 mg/10 mL (10 mL) Oral susp once daily [Active]; metoprolol tartrate 25 mg Oral tab 1 tab 2 times per day [Active]; Miralax 17 gram Oral pwpk 1 packet once daily [Active]; mupirocin 2 % Topical oint twice daily [Active]; Neurontin 100 mg Oral cap 3 times per day [Active]; nitroglycerin 0.4 mg Oral cpER PRN [Active]; [place] 5-325 mg Oral tab Q8H for Pain [Active]; Norvasc 2.5 mg Oral tab 1 tab twice a day [Active]; omeprazole 20 mg Oral cpDR 1 cap once daily [Active]; potassium chloride 10 mEq Oral cpER 1 cap once daily [Active]; Prozac 40 mg Oral cap 1 cap once daily [Active]; Synthroid 150 mcg Oral tab 1 tab once daily [Active]; trazodone 100 mg Oral tab 1 tab at bedtime [Active]; valproic acid 250 mg Oral cap twice daily [Active]; Vitamin C 500 mg Oral tab 500 mg daily [Active]; Vitamin D Oral 2000 unit daily [Active]; zinc sulfate 220 mg Oral cap daily [Active]; - PMHx: 18:48 Atrial Fib; Bipolar disorder; Bronchitis; Cervicalgia; Chronic pain; constipation; ld1 Dementia; 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 - Social history:: Smoking status: Patient denies any tobacco usage or history of. Screenin:52 Abuse screen: Denies threats or abuse. Denies injuries from another. Nutritional ld1 screening: No deficits noted. Tuberculosis screening: No symptoms or risk factors identified. Fall Risk None identified. Assessment: 18:52 Reassessment: See triage assessment. ld1 19:15 Reassessment:. cc4 21:58 Reassessment: Patient appears in no apparent distress at this time. No changes from 3 previously documented assessment. 23:00 Derm: Bile colored liquid pooling around PEG tube of epigastrium area with cc4 excoriation/redness con't noted of skin surrounding intact PEG tube; gown wet with secretions \T\ changed; Dr. Perez informed with instructions to clean skin; charge nurse NOEL Chappell notified \T\ in to view drainage \T\ excoriation of epigastrium skin \T\ reports will communicate with Dr. Perez; skin surrounding PEG tube cleaned with chlorahexadine/sterile saline, dried with sterile 4x4's followed with dressing area with vasoline gauze \T\ abd. pads. Vital Signs: 18:45 BP 122 / 94; Pulse 52; Resp 17; Temp 98.3(O); Pulse Ox 97% on R/A; Weight 108.86 kg; ld1 Height 5 ft. 9 in. (175.26 cm); 19:15 BP 103 / 56; Pulse 69; Resp 18; Temp 98.3; Pulse Ox 97% on R/A; lh3 20:15 BP 97 / 67; Pulse 99; Resp 22; lh3 21:30 BP 104 / 57; Pulse 59; Resp 16; lh3 23:00 BP 119 / 60; Pulse 98; Resp 20; Temp 98.1(A); Pulse Ox 99% on R/A; cc4 04/09 01:15 BP 111 / 76; Pulse 92; Resp 20; Temp 97.8(A); Pulse Ox 100% on R/A; cc4 04/08 18:45 Body Mass Index 35.44 (108.86 kg, 175.26 cm) ld1 Vitals: 04/08 23:00 Cardiac Rhythm Assessment Sinus rhythm Other SR with occasional PAC's \T\ rare unifocal cc4 PVC's noted. ED Course: 18:44 Patient arrived in ED. ld1 18:45 Marisol Vasquez, RN is Primary Nurse. ld1 18:48 Triage completed. ld1 18:48 Arm band placed on right wrist. ld1 18:52 Patient has correct armband on for positive identification. Placed in gown. Bed in low ld1 position. Call light in reach. Side rails up X2. gardening instructor on. Pulse ox on. NIBP on. Door closed. Noise minimized. Warm blanket given. 18:52 No provider procedures requiring assistance completed. ld1 19:03 Donny Perez MD is Attending Physician. [facility] 19: Patient has correct armband on for positive identification. Side rails up X2. Cardiac lh3 monitor on. Pulse ox on. NIBP on. 19:50 Inserted saline lock: 20 gauge in right antecubital area, using aseptic technique. cc4 19:55 PEG Tube Check w/contrast In Process Unspecified. EDMS 23:30 Zbigniew Joyce MD is Referral Physician. [facility] 04/09 01:10 Patient Saline lock d/c'd right AC with controlled bleeding. cc4 Administered Medications: 00:35 Discontinued: NS 0.9% 1000 ml IV at 1000 ml once cc4 04/08 21:50 Drug: NS 0.9% 1000 ml {Note: #20G saline lock inserted right AC x1 attempt with no lh3 difficulty, marc. well..} Route: IV; Rate: 1000 ml; Site: right antecubital; Outcome: 23:32 Discharge ordered by . [facility] 04/09 01:41 Patient left the ED. bb Signatures: Dispatcher [employer] EDMS Misti Rico RN RN bb Holmes, Maurice, MD MD Marisol James, RN RN 1 Kizzy Espinal RN RN 3 Shannon Mcdowell cc4
[2021-04-09 02:03] VITALS: BP 111/76; TEMP 97.8; O2SAT 100
== END 2021-04-09 01:41 | disposition home or self-care (01) ==
LOC: ER 18:39
DX: K94.29 Other complications of gastrostomy (principal); E87.0 Hyperosmolality and hypernatremia; L23.9 Allergic contact dermatitis, unspecified cause; Z88.0 Allergy status to penicillin
CPT/HCPCS: 85025; 80048; 36415; 85610; 85730; 49465; 99284; J7030

== ENCOUNTER 2021-04-10 18:59 | Emergency (ER) | payer OTHER ==
--- NOTE | 2021-04-10 21:15 | EDPHYS ---
Physician Documentation [facility] Name: Zbigniew Mitchell Age: 75 yrs Sex: Male : 1945 Arrival Date: 04/10/2021 Time: 19:01 Bed 6 Private MD: ED Physician Tomas Elena HPI: 04/10 21:02 This 75 yrs old Male presents to ER via EMS with complaints of PEG TUBE pkl PROBLEM. 21:02 Leaking from Peg tube. Onset: The symptoms/episode began/occurred 1 week(s) ago. pkl Patient was seen in the ER daily for the last 4 days. Dressing was changed daily and Peg tube was change to a larger size 2 days ago.. Historical: - Allergies: 19:04 PENICILLINS; hb - Immunization history:: Adult Immunizations up to date. - Social history:: Smoking status: Patient denies any tobacco usage or history of. ROS: 21:02 Eyes: Negative for injury, pain, redness, and discharge, ENT: Negative for injury, pkl pain, and discharge, Neck: Negative for injury, pain, and swelling, Cardiovascular: Negative for chest pain, palpitations, and edema, Respiratory: Negative for shortness of breath, cough, wheezing, and pleuritic chest pain. 21:02 Abdomen/GI: Positive for of the Peg tube in place. Erythema noted around Peg tube. Exam: 21:02 Head/Face: Normocephalic, atraumatic. Eyes: Pupils equal round and reactive to light, pkl extra-ocular motions intact. Lids and lashes normal. Conjunctiva and sclera are non-icteric and not injected. Cornea within normal limits. Periorbital areas with no swelling, redness, or edema. ENT: Nares patent. No nasal discharge, no septal abnormalities noted. Tympanic membranes are normal and external auditory canals are clear. Oropharynx with no redness, swelling, or masses, exudates, or evidence of obstruction, uvula midline. Mucous membranes moist. Neck: Trachea midline, no thyromegaly or masses palpated, and no cervical lymphadenopathy. Supple, full range of motion without nuchal rigidity, or vertebral point tenderness. No Meningismus. Chest/axilla: Normal chest wall appearance and motion. Nontender with no deformity. No lesions are appreciated. Cardiovascular: Regular rate and rhythm with a normal S1 and S2. No gallops, murmurs, or rubs. Normal PMI, no JVD. No pulse deficits. Respiratory: Lungs have equal breath sounds bilaterally, clear to auscultation and percussion. No rales, rhonchi or wheezes noted. No increased work of breathing, no retractions or nasal flaring. 21:02 Abdomen/GI: Inspection: Peg tube in place. Erythema noted around Peg tube. 21:02 Back: Exam negative for acute changes. pkl 21:02 : Exam negative for acute changes. 21:02 Musculoskeletal/extremity: Exam is negative for acute changes. 21:02 Skin: Appearance: Erythema noted Peg tube. 21:02 Neuro: Orientation: appropriate for stated age, Cranial nerves: grossly normal, Motor: is normal. Vital Signs: 19:02 Pulse 59; Resp 20; Temp 97.7; Pulse Ox 100% on R/A; Pain 5/10; hb 21:21 BP 111 / 48; Pulse 60; Resp 18; Temp 98; Pulse Ox 99% ; ea 19:02 [facility] (FACES) hb MDM: 19:09 Patient medically screened. pkl 21:02 Data reviewed: vital signs, nurses notes. ED course: Dr. to Dr. Joyce ( pkl Progress Man ) Ill see patient in his office. [facility] notified of treatment plan. To call Dr. Joyce office in the morning for appointment. Administered Medications: No medications were administered Disposition Summary: 04/10/21 21:15 Discharge Ordered Location: Home pkl Problem: new pkl Symptoms: are unchanged pkl Condition: Stable pkl Diagnosis - Leaking from Peg tube pkl Followup: pkl - With: Zbigniew Joyce MD - When: Tomorrow - Reason: Re-evaluation by your physician Forms: - Medication Reconciliation Form pkl - Thank You Letter pkl - Antibiotic Education pkl - Prescription Opioid Use pkl Signatures: Tomas Elena MD MD pkl Cait Mart, RN RN
--- NOTE | 2021-04-10 21:15 | ER ---
Nurse's Notes [facility] Name: Zbigniew Mitchell Age: 75 yrs Sex: Male : 1945 Arrival Date: 04/10/2021 Time: 19:01 Bed 6 Private MD: Diagnosis: Leaking from Peg tube Presentation: 04/10 19:02 Chief complaint: EMS states: SENT FROM [facility] FOR LEAKING AROUND PEG TUBE. hb Coronavirus screen: At this time, the client does not indicate any symptoms associated with coronavirus-19. Ebola Screen: No symptoms or risks identified at this time. Initial Sepsis Screen: Does the patient meet any 2 criteria? Yes Does the patient have a suspected source of infection? No. Patient's initial sepsis screen is negative. Risk Assessment: Do you want to hurt yourself or someone else? Patient reports no desire to harm self or others. Onset of symptoms was April 10, 2021. 19:02 Method Of Arrival: EMS: [facility] 19:02 Acuity: ANDRE 3 hb Historical: - Allergies: 19:04 PENICILLINS; hb - Immunization history:: Adult Immunizations up to date. - Social history:: Smoking status: Patient denies any tobacco usage or history of. Screenin:21 Abuse screen: Denies threats or abuse. Nutritional screening: No deficits noted. ea Tuberculosis screening: No symptoms or risk factors identified. Fall Risk None identified. Assessment: 20:00 General: Behavior is calm, cooperative, appropriate for age. Pain: Denies pain. Neuro: ea Level of Consciousness is awake, alert, obeys commands. Respiratory: Airway is patent Respiratory effort is even, unlabored, Respiratory pattern is regular, symmetrical. Derm: peg tube with excoriation noted surrounding peg site. 20:38 Reassessment: Attempted to call [facility] for pt information, no answer. bb 21:02 Reassessment: spoke to [facility] instructed them Dr Elena spoke to Dr Joyce who will bb see the pt in his office. They are to make an appointment and arrangements for pt to be seen by Dr Joyce. 21:20 Reassessment: Patient and/or family updated on plan of care and expected duration. Pain ea level reassessed. Peg tube redressed pt tolerated well. 21:58 Reassessment: Patient and/or family updated on plan of care and expected duration. Pain ea level reassessed. Discharge instruction given to EMS. Pt left ED back to [facility] per EMS via stretcher tolerating well. Vital Signs: 19:02 Pulse 59; Resp 20; Temp 97.7; Pulse Ox 100% on R/A; Pain 5/10; hb 21:21 BP 111 / 48; Pulse 60; Resp 18; Temp 98; Pulse Ox 99% ; ea 19:02 [facility] (FACES) ED Course: 19:01 Patient arrived in ED. hb 19:04 Triage completed. hb 19:04 Patient placed. hb 19:09 Tomas Elena MD is Attending Physician. pkl 20:00 Patient has correct armband on for positive identification. Bed in low position. Call ea light in reach. Adult w/ patient. 21:15 Zbigniew Joyce MD is Referral Physician. pkl 21:59 No provider procedures requiring assistance completed. Patient did not have IV access ea during this emergency room visit. Administered Medications: No medications were administered Outcome: 21:15 Discharge ordered by . pkl 21:22 Discharge instructions given to [facility], Instructed on follow up and referral ea plans. Demonstrated understanding of instructions. 21:59 Discharged to [facility]. ea 21:59 Condition: stable 22:00 Patient left the ED. ea Signatures: Tomas Elena MD MD pkMisti Jensen, RN RN Cait Robert, Anum Slaughter RN, RN RN ea
[2021-04-10 23:07] VITALS: BP 111/48; TEMP 98; O2SAT 99
== END 2021-04-10 22:00 | disposition home or self-care (01) ==
LOC: ER 18:59
DX: K94.29 Other complications of gastrostomy (principal)
CPT/HCPCS: 99283

== ENCOUNTER 2021-06-25 03:16 | Inpatient (IN) | payer OTHER ==
--- OUTSIDE RECORDS SUMMARY | 2021-06-25 03:26 | XMS REPORT | Continuity of Care Document ---
:1945 Author Organization [facility] t Address [address] [place] [address] Care Team Providers Name Role Phone Pcp Primary Care Physician Unavailable POLI CONNER Attending Clinician Unavailable Poli Conner MD Attending Clinician Deacon Zuniga MD Attending Clinician [phone] Manav Diggs MD Attending Clinician Nelli GONZÁLES Attending Clinician KNOW Attending Clinician Unavailable POLI CONNER Admitting Clinician Unavailable KNOW Admitting Clinician Unavailable Payers Payer Name Policy [...] Drug Active [facility]aphylaxis [facility] [place] Allergy Active High Anaphylaxis [facility] NO KNOWN Allergy Active ALEX CELSOSTEVEN S Social History Social Habit Start Date Stop Date Quantity Comments Source Exposure to Not sure NIKA Ellis - SARS-CoV-2 (event) Medica l [place] Sex Ass[birth year] At [birth year] NIKA Grace kes - 00:00:00 00:[facility]:00 [facility] Medications Ordered Filled Start Stop Current Ordering Indication Dosage Frequency Signature Comments Components Source Medication Medication Date Date Medication? Clinician (SIG) Name Name [facility] 2021- Yes 1{tbl} QD Take [address] n 04-03 tablet by [facility] - (THERFloodlightAN) 00:00: 23:59 mouth Medi nilson tablet 00 :00 daily. [facility] 2021- Yes 1{tbl} QD Take [address] n 04-03 tablet by [facility] - (THERAGRAN) 00:00: 23:59 mouth Medi nilson tablet 00 :00 daily. [facility] 2021- Yes 1{tbl} QD Take [address] n 04-03 tablet by [employer] [facility] PF - (THERAGRAN) 00:00: 23:59 mouth Medi nilson tablet 00 :00 daily. [facility] 2021- Yes 1{tbl} QD Take [address] n 04-03 tablet by [facility] PF - (THERAGRAN) 00:00: 23:59 mouth Medi nilson tablet 00 :00 daily. [facility] ascorbic 2020- Yes 250mg QD Take 1 [facility] acid, 04-03 tablet [facility] - vitamin C, 00:00: 23:59 (250 mg Med ical (VITAMIN C) 00 :00 total) by Gutierrez ter 250 MG mouth tablet daily for 30 days. honey 100 % 2020- Yes 1{appli QD Apply 1 NIKA Alcocer Pste 04-03 cation} applicatio Fernkes - 00:00: 23:59 n Medical 00 :00 [...] for Medical HALF-STRENG 00 :00 7 days [facility],) 0.25 % -Sacrum: external Cleanse solution with 0.25% Dakins solution and pack with 0.25% Dakins wet to dry dressing. Cover with Allevyn foam dressing daily.. sodium 2020- Yes QD Apply [facility] hypochlorit 04-03 topically Fern kes - e (DAKIN'S, 00:00: 23:59 daily for Medical HALF-STRENG 00 :00 7 days [facility],) 0.25 % -Sacrum: external Cleanse solution with 0.25% Dakins solution and pack with 0.25% Dakins wet to dry dressing. Cover with Allevyn foam dressing daily.. sodium 2020- Yes QD Apply [facility] hypochlorit 04-03 topically Fern kes - e (DAKIN'S, 00:00: 23:59 daily for Medical HALF-STRENG 00 :00 7 days [facility],) 0.25 % -Sacrum: external Cleanse solution with 0.25% Dakins solution and pack with 0.25% Dakins wet to dry dressing. Cover with Allevyn foam dressing daily.. sodium 2020- Yes QD Apply [facility] hypochlorit 04-03 topically Fern kes - e (DAKIN'S, 00:00: 23:59 daily for Medical HALF-STRENG 00 :00 7 days [facility],) 0.25 % -Sacrum: external Cleanse solution with [...] capsule daily for 10 days. zinc 2020-0 202- No 220mg QD Take [address] [facility] [...] Medical Medication 35 BID . Center calcium 0 Yes 1{tbl} QD Take [address] carbonate-v - tablet by Rafael es - itamin D3 18:23: mouth Medical (calcium-vi 35 daily. Center tamin D) 500 mg(1,250mg) -200 unit per tablet phenytoin 2020-0 Yes Q.[id number] Take by [facility] (DILANTIN) 9- [id number] mouth 3 [facility] - 100 MG ER [...] needed for Itching. ipratropium 0 Yes 500ug Q.18921096 Take [address] (ATROVENT) 9-08 [id number] mcg by L ukes - 0.02 % [...] 35 Center packet gabapentin 0 Yes 100mg Q.27050469 Take [address] (NEURONTIN) 9-08 [id number] mg by L ukes - 100 MG [...] -200 unit per tablet phenytoin 0 Yes Q.[id number] Take by [facility] (DILANTIN) 9-08 [id number] mouth 3 [facility] - 100 MG ER [...] 18:23: daily. Medica l 35 Center furosemide Yes 20mg QD Take [address] (LASIX) 20 9-08 by mouth [facility] - MG tablet 18:23: daily. Medica l 35 Center hydrOXYzine 0 Yes 25mg Take [address] (ATARAX) 25 9-08 by mouth 3 Fern kes - MG tablet 18:23: (three) Medic al 35 times Center daily as needed for Itching. ipratropium Yes 500ug Q.59971409 Take [address] (ATROVENT) 9-08 [id number] mcg by L ukes - 0.02 % [...] gram 35 Center packet gabapentin Yes 100mg Q.41755066 Take [address] (NEURONTIN) 9-08 [id number] mg by L ukes - 100 MG [...] morning on tablet an empty stomach. traZODone 2021-0 Yes 100mg QD Take [address] [...] mg(1,250mg) -200 unit per tablet phenytoin Yes Q.02924937 Take by [facility] (DILANTIN) 9-08 [id number] mouth 3 [facility] - 100 MG ER [...] needed for Itching. ipratropium 0 Yes 500ug Q.77730803 Take [address] (ATROVENT) 9-08 [id number] mcg by L ukes - 0.02 % [...] 35 Center packet gabapentin 0 Yes 100mg Q.26019121 Take [address] (NEURONTIN) 9-08 [id number] mg by L ukes - 100 MG [...] mg(1,250mg) -200 unit per tablet phenytoin Yes Q.[id number] Take by [facility] (DILANTIN) 9-08 [id number] mouth 3 [facility] - 100 MG ER [...] 18:23: daily. Medica l 35 Center furosemide Yes 20mg QD Take [address] (LASIX) 20 9-08 by mouth [facility] - MG tablet 18:23: daily. Medica l 35 Center hydrOXYzine 2020-0 Yes 25mg Take [address] (ATARAX) 25 9-08 by mouth 3 Fern kes - MG tablet 18:23: (three) Medic al 35 times Center daily as needed for Itching. ipratropium 0 Yes 500ug Q.62648784 Take [address] (ATROVENT) 9-08 [id number] mcg by L ukes - 0.02 % [...] 35 Center packet gabapentin 0 Yes 100mg Q.28644852 Take [address] (NEURONTIN) 9-08 [id number] mg by L ukes - 100 MG [...] 2.5 mg Tab 00:00: Medical tablet 00 [facility] apixaban [address] [facility] (ELIQUIS) 5-23 DAILY [facility] - 2.5 mg Tab 00:00: Medical tablet 00 [facility] apixaban Yes TWICE [facility] (ELIQUIS) 5-23 DAILY [facility] - 2.5 mg Tab 00:00: Medical tablet 00 [facility] apixaban Yes TWICE [facility] (ELIQUIS) 5-23 DAILY [facility] - 2.5 mg Tab 00:00: Medical tablet 00 [facility] amLODIPine Yes DAILY [facility] (NORVASC) 5-04 [facility] - 2.5 MG 00:00: Medical tablet 00 [facility] amLODIPine Yes DAILY [facility] (NORVASC) 5-04 [facility] - 2.5 MG 00:00: Medical tablet 00 [facility] amLODIPine Yes DAILY [facility] (NORVASC) 5-04 [facility] - 2.5 MG 00:00: Medical tablet 00 [facility] amLODIPine Yes DAILY [facility] (NORVASC) 5-04 [facility] - 2.5 MG 00:00: Medical tablet 00 [facility] Vital Signs Vital Name Observation Time Observation Value Comments Source WEIGHT 2021-03-31 04:00:00 87.8 kg HEIGHT 2021-03-28 21:00:00 170.2 cm WEIGHT 2021-03-28 21:00:00 87.8 kg WEIGHT 2021-03-31 04:00:00 87.8 kg HEIGHT 2021-03-28 21:00:00 170.2 cm WEIGHT 2021-03-28 21:00:00 87.8 kg Systolic blood 2021-04-02 15:00:00 128 mm[Hg] [facility] Diastolic blood 2021-04-02 15:00:00 72 mm[Hg] [facility] Heart rate 2021-04-02 15:00:00 63 /min [facility] Body temperature 2021-04-02 15:00:[address] [facility] Respiratory rate 2021-04-02 15:00:00 20 /min [facility] Oxygen saturation in 2021-04-02 15:00:00 95 /min [facility] - Arterial blood by Medical nter Pulse oximetry Body weight 2021-03-31 04:00:00 87.8 kg [facility] BMI 2021-03-31 04:00:00 30.32 kg/m2 [facility] Body height 2021-03-28 21:00:00 170.2 cm [facility] Procedures Procedure Date / Time Performed Performing Clinician [facility] e D-DIMER 2021-04-02 13:51:00 Nelli [facility] LACTATE DEHYDROGENASE 2021-04-02 13:50:00 Nelli [facility] ([facility] Center FERRITIN 2021-04-02 13:50:00 Nelli [facility] CBC W/PLT COUNT & AUTO 2021-04-02 13:50:00 Nelli [facility] C-REACTIVE PROTEIN 2021-04-02 13:50:00 Nelli [facility] PROCALCITONIN 2021-04-02 13:50:00 Nelli [facility] COMPREHENSIVE METABOLIC 2021-04-02 13:50:00 Nelli [facility] MAGNESIUM 2021-04-02 13:50:00 Nelli [facility] CBC W/PLT COUNT & AUTO 2021-04-02 13:50:00 Nelli [facility] POCT-GLUCOSE METER 2021-04-02 01:52:[address] [facility] POCT-GLUCOSE METER 2021-04-01 20:51:[address] [facility] POCT-GLUCOSE METER 2021-04-01 16:51:[address] [facility] URINE CULTURE 2021-04-01 16:50:[address] [facility] URINALYSIS W/ REFLEX 2021-04-01 16:50:00 Diane aGllagher [facility] I [facility] URINE CULTURE [facility] SARS-COV2/INFLUENZA/RSV 2021-04-01 16:48:00 Renata Diggs [facility] - RT-PCR [facility] BASIC METABOLIC PANEL (7) 2021-04-01 16:47:[address] [facility] POCT-GLUCOSE METER 2021-04-01 11:43:[address] [facility] VANCOMYCIN LEVEL, TROUGH 2021-04-01 10:34:00 Dakotah Figueredo [facility] POCT-GLUCOSE METER 2021-04-01 05:45:00 [facility] BASIC [facility]OL[facility] PANEL (7) 2021-04-01 05:26:[address] [facility] CBC W/PLT COUNT & AUTO 2021-04-01 05:26:00 Kasey [facility] S [facility] - DIFFERENTIAL [facility] MAGNESIUM 2021-04-01 05:26:00 Kasey [facility] PHOSPHORUS 2021-04-01 05:26:00 Kasey [facility] HEPATIC FUNCTION PANEL 2021-04-01 05:26:00 Kasey [facility] C-REACTIVE PROTEIN 2021-04-01 05:26:00 Kasey [facility] CREATINE KINASE (CK) 2021-04-01 05:26:00 Kasey [facility] CALCIUM, IONIZED 2021-04-01 05:26:[address] [facility] CBC W/PLT COUNT & AUTO 2021-04-01 05:26:00 Kasey [facility] S t [facility] - DIFFERENTIAL [facility] POCT-GLUCOSE METER 2021-03-31 23:22:00 Sancho Gregory [facility] POCT-GLUCOSE METER 2021-03-31 15:28:00 Sancho Gregory [facility] CBC W/PLT COUNT & AUTO 2021-03-31 12:50:00 Sersuma [facility] MAGNESIUM 2021-03-31 12:50:00 Serenio [facility] PHOSPHORUS 2021-03-31 12:50:00 Serenitye [facility] HEPATIC FUNCTION PANEL 2021-03-31 12:50:00 [facility] COMPREHENSIVE METABOLIC 2021-03-31 12:50:00 Lan Peraza [facility] VANCOMYCIN LEVEL, RANDOM 2021-03-31 12:50:[address] [facility] CBC W/PLT COUNT & AUTO 2021-03-31 12:50:00 Sersuma [facility] CALCIUM, IONIZED 2021-03-31 12:49:[address] [facility] POCT-GLUCOSE METER 2021-03-31 12:08:00 [facility] POCT-[facility]SE METER 2021-03-31 09:59:00 [facility] BASIC METABOLIC PANEL (7) 2021-03-31 00:07:[address] [facility] XR ABDOMEN / KUB 1 VIEW 2021-03-30 21:31:[address] [facility] POCT-GLUCOSE METER 2021-03-30 21:31:00 Sancho Gregory [facility] POCT-GLUCOSE METER 2021-03-30 17:26:00 [facility]BDOMEN / KUB 1 VIEW 2021-03-30 17:03:00 Madison Newsome I [facility] BASIC METABOLIC PANEL (7) 2021-03-30 16:42:[address] [facility] POCT-GLUCOSE METER 2021-03-30 12:50:00 Sancho Gregory [facility] US RENAL COMPLETE 2021-03-30 11:26:00 Lan Peraza [facility] 2D ECHO W/ DOPPLER 2021-03-30 10:31:37 Jd Jefferson [facility] (CW/PW/COLOR) [facility] BASIC METABOLIC PANEL (7) 2021-03-30 09:53:00 David Reeves [facility] POCT-GLUCOSE METER 2021-03-30 05:02:00 [facility] BASIC METABOLIC PANEL (7) 2021-03-30 04:12:00 David Reeves [facility] CBC W/PLT COUNT & AUTO 2021-03-30 04:12:00 Kasey [facility] DIFFERENTIAL [facility] MAGNESIUM 2021-03-30 04:12:00 Serenitye [facility] PHOSPHORUS 2021-03-30 04:12:00 Sereni [facility] HEPATIC FUNCTION PANEL 2021-03-30 04:12[facility] 2021-03-30 04:12:00 [facility] CREATINE KINASE (CK) 2021-03-30 04:12:00 [facility] CALCIUM, IONIZED 2021-03-30 04:12:[address] [facility] CBC W/PLT COUNT & AUTO 2021-03-30 04:12:00 Sersophia [facility] DIFFERENTIAL [facility] POCT-GLUCOSE METER 2021-03-29 23:40:00 [facility] OSMOLALITY, URINE 2021-03-29 21:49:00 Thony Gamble [facility] OSMOLALITY, SERUM 2021-03-29 21:49:00 Tye, [facility] SODIUM, RANDOM URINE 2021-03-29 21:49:00 Tye [facility] CREATININE, RANDOM URINE 2021-03-29 21:49:00 Tye, [facility] BASIC METABOLIC PANEL (7) 2021-03-29 21:49:00 David Reeves CH, I [facility] SODIUM, RANDOM URINE 2021-03-29 17:25:00 Stu [facility] PROTEIN, RANDOM URINE 2021-03-29 17:25:00 [facility] CREATININE, RANDOM URINE 2021-03-29 17:25:00 Peraza [facility] OSMOLALITY, URINE 2021-03-29 17:25:00 Stu [facility] POCT-GLUCOSE METER 2021-03-29 17:21:00 [facility] BASIC METABOLIC PANEL (7) 2021-03-29 16:26:00 David Reeves CH, I [facility] VALPROIC ACID LEVEL, 2021-03-29 16:26:00 Jd Jefferson [facility] PHENYTOIN LEVEL, TOTAL 2021-03-29 16:26:[address] [facility] BASIC METABOLIC PANEL (7) 2021-03-29 12:51:00 David Reeves CH, I [facility] POCT-GLUCOSE METER 2021-03-29 12:38:00 Sancho Gregory [facility] BASIC METABOLIC PANEL (7) 2021-03-29 09:08:00 David Reeves CH, I [facility] VANCOMYCIN LEVEL, RANDOM 2021-03-29 09:08:[address] [facility] B-TYPE NATRIURETIC FACTOR 2021-03-29 09:08:00 Jd Jefferson [facility] (BNP) [facility] BASIC METABOLIC PANEL (7) 2021-03-29 05:51:00 David Reeves CH I [facility] TSH/FREE T4 IF INDICATED 2021-03-29 05:05:00 Sersuma [facility] CBC W/PLT COUNT & AUTO 2021-03-29 05:05:00 [facility] DIFFERENTIAL [facility] (CELLAVISION MANUAL DIFF) 2021-03-29 05:05:00 Kasey [facility] I [facility] CBC W/PLT COUNT & AUTO 2021-03-29 05:05:00 [facility] DIFFERENTIAL [facility] URINE CULTURE 2021-03-29 02:53:00 [facility] URINALYSIS W/ REFLEX 2021-03-29 02:53:00 [facility] URINE CULTURE [facility] BLOOD CULTURE 2021-03-29 02:52:00 [facility] BLOOD GAS, ARTERIAL 2021-03-28 23:03:00 [facility] CBC (HEMOGRAM ONLY) 2021-03-28 23:02:00 [facility] PT/APTT 2021-03-28 23:02:00 [facility] D-DIMER 2021-03-28 23:02:00 [facility] LACTIC ACID, VENOUS 2021-03-28 23:02:00 [facility] CALCIUM, IONIZED 2021-03-28 23:02:00 [facility] COMPREHENSIVE METABOLIC 2021-03-28 22:29:[address] [facility] C-REACTIVE PROTEIN 2021-03-28 22:29:00 [facility] MAGNESIUM 2021-03-28 22:29:00 [facility] PHOSPHORUS 2021-03-28 22:29:00 [facility] CREATINE KINASE (CK) 2021-03-28 22:29:00 [facility] XR ABDOMEN / KUB 1 VIEW 2021-03-28 22:07:00 [facility] XR CHEST 1 VIEW PORTABLE 2021-03-28 21:59:00 [facility] / BEDSIDE [facility] Plan of Care Planned Activity [...] 00:00:00 (1 of 1 - Medical Center [id number] PCV13) [code = PNEUMOCOCCAL 65+ YRS (1 of 1 - LTFR52_Aytyntq PCV13)] Future Scheduled 2008 PNEUMOCOCCAL 65+ YRS [facility] - Test 00:00:00 (1 of 1 - Medical Center VRZH20_Yxgueps PCV13) [code = PNEUMOCOCCAL 65+ YRS (1 of 1 - TARF31_Sszpsbk PCV13)] Future Scheduled 2008 PNEUMOCOCCAL 65+ YRS [facility] - Test 00:00:00 (1 of 1 - Medical Center [id number]_Mkhrsmx PCV13) [code = PNEUMOCOCCAL 65+ YRS (1 of 1 - TQXZ48_Ihsanzr PCV13)] Future Scheduled 2008 PNEUMOCOCCAL 65+ YRS [facility] - Test 00:00:00 (1 of 1 - Medical Center NRVC37_Xriyjla PCV13) [code = PNEUMOCOCCAL 65+ YRS (1 of 1 - CJEE90_Rxdmvzd PCV13)] Future Scheduled 2005-03-27 MEDICARE ANNUAL [facility] [...] Date/Time Type Type Clinicians Facility Department ID 2021-05-04 [facility] [id number] [facility] 11:17:29 [facility] 2021-03-28 2021-04-02 Hospital ER [facility] [id number] [facility] St 20:39:00 18:23:00 Encounter [facility]iga[facility] Daphney Aiken enter 2021-03-29 2021-03-29 Travel [facility] [id number] [facility] 00:00:00 00:00:00 [facility] 2020-11-06 2020-11-06 Outpatient KNOW, [facility] [id number] [facility] 09:21:00 09:21:00 DOES_NOT [id number] [facility] Results Test Description Test Time Test Comments Results Result Comments Source Urine culture 2021-04-03 09:42:00 Test Item Value Reference Range Interpretation Comme nts Result (test code = 6463-4) 80-89,000 col/mL Capri tropicalis A Lab Interpretation (test code = 49483-7) [facility]normal [facility] [id number] 09:42:00 Test Item Value Reference Range Interpretation Comments Result (test code = 80-89,000 col/mL A 6463-4) Capri tropicalis Lab Interpretation (test Abnormal code = 97429-3) [facility] [id number] 09:42:00 Test Item Value Reference Range Interpretation Comments Result (test code = 80-89,000 col/mL A 6463-4) Capri tropicalis Lab Interpretation (test Abnormal code = 57643-8) [facility] [id number] 09:42:00 Test Item Value Reference Range Interpretation Comments Result (test code = 80-89,000 col/mL A 6463-4) Capri tropicalis Lab Interpretation (test Abnormal code = 99915-6) [facility] Culture - Routine (Left Venipuncture) 2021-04-03 04:01:00 Test Item Value Reference Range Interpretation Comments Result (test code = No growth in 5 days 6463-4) [facility] Culture - Routine (Left Venipuncture) 2021-04-03 04:01:00 Test Item Value Reference Range Interpretation Comments Result (test code = No growth in 5 days 6463-4) [facility] Culture - Routine (Left Venipuncture) 2021-04-03 04:01:00 Test Item Value Reference Range Interpretation Comments Result (test code = No growth in 5 days 6463-4) [facility] Culture - Routine (Left Venipuncture) 2021-04-03 04:01:00 Test Item Value Reference Range Interpretation Comments Result (test code = No growth in 5 days 6463-4) [facility] [id number] 04:01:00 Test Item Value Reference Range Interpretation Comments CULTURE (BEAKER) (test No growth in 5 days code = 1095) BLOOD [id number] 04:01:00 Test Item Value Reference Range Interpretation Comments CULTURE (BEAKER) (test No growth in 5 days code = 1095) [id number] 14:50:00 Test Item Value Reference Range Interpretation Comments Ferritin (test code = 486.66 ng/mL 5-275 H 2276-4) STACY (test code = STACY) Opinion Polls Survey Worker ID - PIAYA L Lab Interpretation (test Abnormal code = 43664-2) [facility] 14:50:00 Test Item Value Reference Range Interpretation Comments Ferritin (test code = 486.66 ng/mL 5.00-275.00 H 2276-4) STACY (test code = STACY) Opinion Polls Survey Worker ID - PIAYA L Lab Interpretation (test Abnormal code = 59788-8) [facility] 14:50:00 Test Item Value Reference Range Interpretation Comments Ferritin (test code = 486.66 ng/mL 5.00-275.00 H 2276-4) STACY (test code = STACY) Opinion Polls Survey Worker ID - CONCEPCIONAYA L Lab Interpretation (test Abnormal code = 81528-9) [facility] 14:50:00 Test Item Value Reference Range Interpretation Comments Ferritin (test code = 486.66 ng/mL 5.00-275.00 H 2276-4) STACY (test code = STACY) Opinion Polls Survey Worker ID - PIAYA L Lab Interpretation (test Abnormal code = 09923-6) [facility] 14:50:00 Test Item Value Reference Range Interpretation Comments FERRITIN (BEAKER) (test code = 486.66 ng/mL 5.00-275.00 H 361) Opinion Polls Survey Worker ID - PIAYA [id number] 14:43:00 Test Item Value Reference Range Interpretation Comments Procalcitonin (test <0.05 See_Comment [Automa saulo code = 06032-9) message] The system which generated this result transmit saulo reference range : <0.05 ng/mL. Th e reference range was not used to interpret this result as normal/abnormal . STACY (test code = STACY) SEPSIS RISK (ng/mL)Low: 0.05-0.50Inter mediate: 0.51-2.00High: >=2.01 Lab Interpretation Normal (test code = 79347-3) [facility] 14:43:00 Test Item Value Reference Range Interpretation Comments Procalcitonin (test <0.05 See_Comment [Automa saulo code = 73305-3) message] The system which generated this result transmit saulo reference range : <0.05 ng/mL. Th e reference range was not used to interpret this result as normal/abnormal . STACY (test code = STACY) SEPSIS RISK (ng/mL)Low: 0.05-0.50Inter mediate: 0.51-2.00High: >=2.01 Lab Interpretation Normal (test code = 27346-6) [facility] 14:43:00 Test Item Value Reference Range Interpretation Comments Procalcitonin (test <0.05 See_Comment [Automa saulo code = 89419-9) message] The system which generated this result transmit saulo reference range : <0.05 ng/mL. Th e reference range was not used to interpret this result as normal/abnormal . STACY (test code = STACY) SEPSIS RISK (ng/mL)Low: 0.05-0.50Inter mediate: 0.51-2.00High: >=2.01 Lab Interpretation Normal (test code = 01802-5) [facility] 14:43:00 Test Item Value Reference Range Interpretation Comments Procalcitonin (test <0.05 See_Comment [Automa saulo code = 20614-5) message] The system which generated this result transmit saulo reference range : <0.05 ng/mL. Th e reference range was not used to interpret this result as normal/abnormal . STACY (test code = STACY) SEPSIS RISK (ng/mL)Low: 0.05-0.50Inter mediate: 0.51-2.00High: >=2.01 Lab Interpretation Normal (test code = 63645-0) [facility] 14:43:00 Test Item Value Reference Range Interpretation Comments PROCALCITONIN (BEAKER) (test code = < ng/mL <0.05 3036) SEPSIS RISK (ng/mL)Low: 0.05-0.50Intermediate: 0.51-2.00High: >=2.01Comprehensive metabolic [id number] 14:39:00 Test Item Value Reference Range Interpretation Comments Protein, Total (test 6.0 See_Comment Specime n slightly code = 2885-2) hemolyzed [Automated message] The system which generated this result transmit saluo reference range : 6.0 - 8.3 gm/dL . The reference range was not u sed to interpret th is result as normal/abnormal . Albumin (test code = 2.0 g/dL 3.5-5 L Specime n slightly 16721-8) hemolyzed Alkaline Phosphatase 65 U/L 40-150 (test code = 6768-6) Total Bilirubin (test 0.4 mg/dL 0.2-1.2 Specim en slightly code = 1974-2) hemolyzed Sodium (test code = 141 meq/L 759-603 8774-2) Potassium (test code 3.3 meq/L 3.5-5.1 L [...] (test code = 7.2 mg/dL 8.4-10.2 L 72878-6) AST (test code = 38 U/L 5-34 H Specimen sl ightly 1920-8) hemolyzed ALT (test code = 31 U/L 6-55 Specimen sl ightly 1742-6) hemolyzed EGFR (test code = 95 mL/min/1.73 [place] [address]-1) NOT ACCURATE CREATININE CLEARANCE IN PREDICTING GLOMERULAR FILTRATION RATE . ESTIMATED GFR I S NOT APPLICABLE FOR DIALYSIS PATIEN TS. STACY (test code = STACY) Opinion Polls Survey Worker ID - PIAYA L Lab Interpretation Abnormal (test code = 17573-6) [facility] 14:39:00 Test Item Value Reference Range Interpretation Comments LDH (test code = 390 U/L 125-220 H Specimen 2532-0) slightly hemolyzed STACY (test code = STACY) Opinion Polls Survey Worker ID - PIAYA L Lab Interpretation Abnormal (test code = 94277-0) [facility] [id number] 14:39:00 Test Item Value Reference Range Interpretation [...] 2.0 g/dL 3.5-5.0 L Specime n slightly 03625-4) hemolyzed Alkaline Phosphatase 65 U/L 40-150 (test code = 6768-6) Total Bilirubin (test 0.4 mg/dL 0.2-1.2 Specim en slightly code = 1975-2) hemolyzed Sodium (test code = 141 meq/L 084-784 4002-2) Potassium (test code 3.3 meq/L 3.5-5.1 L [...] (test code = 7.2 mg/dL 8.4-10.2 L 97252-6) AST (test code = 38 U/L 5-34 H Specimen sl ightly 1920-8) hemolyzed ALT (test code = 31 U/L 6-55 Specimen sl ightly 1742-6) hemolyzed EGFR (test code = 95 mL/min/1.73 [place] [address]-3) NOT ACCURATE CREATININE CLEARANCE IN PREDICTING GLOMERULAR FILTRATION RATE . ESTIMATED GFR I S NOT APPLICABLE FOR DIALYSIS PATIEN TS. STACY (test code = STACY) Opinion Polls Survey Worker ID - PIAYA L Lab Interpretation Abnormal (test code = 70919-2) [facility]21-[facility]-02 14:39:00 Test Item Value Reference Range Interpretation Comments LDH (test code = 390 U/L 125-220 H Specimen 2532-0) slightly hemolyzed STACY (test code = STACY) Opinion Polls Survey Worker ID - PIAYA L Lab Interpretation Abnormal (test code = 69874-9) [facility] [id number] 14:39:00 Test Item Value Reference Range Interpretation [...] 2.0 g/dL 3.5-5.0 L Specime n slightly 34077-7) hemolyzed Alkaline Phosphatase 65 U/L 40-150 (test code = 6768-6) Total Bilirubin (test 0.4 mg/dL 0.2-1.2 Specim en slightly code = 1975-2) hemolyzed Sodium (test code = 141 meq/L 155-815 6853-2) Potassium (test code 3.3 meq/L 3.5-5.1 L [...] (test code = 7.2 mg/dL 8.4-10.2 L 01972-4) AST (test code = 38 U/L 5-34 H Specimen sl ightly 1920-8) hemolyzed ALT (test code = 31 U/L 6-55 Specimen sl ightly 1742-6) hemolyzed EGFR (test code = 95 mL/min/1.73 [place] [address]-2) NOT ACCURATE CREATININE CLEARANCE IN PREDICTING GLOMERULAR FILTRATION RATE . ESTIMATED GFR I S NOT APPLICABLE FOR DIALYSIS PATIEN TS. STACY (test code = STACY) Opinion Polls Survey Worker ID - PIAYA L Lab Interpretation Abnormal (test code = 13364-3) [facility]21-[facility]-02 14:39:00 Test Item Value Reference Range Interpretation Comments LDH (test code = 390 U/L 125-220 H Specimen 2532-0) slightly hemolyzed STACY (test code = STACY) Opinion Polls Survey Worker ID - PIAYA L Lab Interpretation Abnormal (test code = 50173-3) [facility] [id number] 14:39:00 Test Item Value Reference Range Interpretation [...] 2.0 g/dL 3.5-5.0 L Specime n slightly 39220-5) hemolyzed Alkaline Phosphatase 65 U/L 40-150 (test code = 6768-6) Total Bilirubin (test 0.4 mg/dL 0.2-1.2 Specim en slightly code = 1975-2) hemolyzed Sodium (test code = 141 meq/L 955-687 6317-2) Potassium (test code 3.3 meq/L 3.5-5.1 L [...] (test code = 7.2 mg/dL 8.4-10.2 L 36816-0) AST (test code = 38 U/L 5-34 H Specimen sl ightly 1920-8) hemolyzed ALT (test code = 31 U/L 6-55 Specimen sl ightly 1742-6) hemolyzed EGFR (test code = 95 mL/min/1.73 [place] [address]-9) NOT ACCURATE CREATININE CLEARANCE IN PREDICTING GLOMERULAR FILTRATION RATE . ESTIMATED GFR I S NOT APPLICABLE FOR DIALYSIS PATIEN TS. STACY (test code = STACY) Opinion Polls Survey Worker ID - PIAYA L Lab Interpretation Abnormal (test code = 64723-4) [facility]2021-04-02 14:39:00 Test Item Value Reference Range Interpretation Comments LDH (test code = 390 U/L 125-220 H Specimen 2532-0) slightly hemolyzed STACY (test code = STACY) Opinion Polls Survey Worker ID - PIAYA L Lab Interpretation Abnormal (test code = 24552-3) [facility]SE (LDH)2021-04-02 14:39:00 Test Item Value Reference Range Interpretation Comments LACTATE DEHYDROGENASE 390 U/L 125-220 H Specim en slightly (BEAKER) (test code = hemoly zed 635) Opinion Polls Survey Worker ID - PIAYA LCOMPREHENSIVE METABOLIC [id number] 14:39:00 Test Item Value Reference Range Interpretation [...] S NOT APPLICABLE FOR DIALYSIS PATIEN TS. Opinion Polls Survey Worker ID - PIAYA [id number] 14:35:00 Test Item Value Reference Range Interpretation Comments Magnesium (test code = 1.4 mg/dL 1.6-2.6 L Speci men 63316-9) slightly hemolyzed STACY (test code = STACY) Opinion Polls Survey Worker ID - PIAYA L Lab Interpretation Abnormal (test code = 78606-1) [facility] [id number] 14:35:00 Test Item Value Reference Range Interpretation Comments CRP (test code = 676) 2.68 mg/dL 0-0.5 H STACY (test code = STACY) Opinion Polls Survey Worker ID - PIAYA L Lab Interpretation (test Abnormal code = 10928-2) [facility]esium2021-[facility]-08 14:35:00 Test Item Value Reference Range Interpretation Comments Magnesium (test code = 1.4 mg/dL 1.6-2.6 L Speci men 46595-9) slightly hemolyzed STACY (test code = STACY) Opinion Polls Survey Worker ID - PIAYA L Lab Interpretation Abnormal (test code = 08494-3) [facility] [id number] 14:35:00 Test Item Value Reference Range Interpretation Comments CRP (test code = 676) 2.68 mg/dL 0.00-0.50 H STACY (test code = STACY) Opinion Polls Survey Worker ID - PIAYA L Lab Interpretation (test Abnormal code = 14084-8) [facility]2021-[facility] 14:35:00 Test Item Value Reference Range Interpretation Comments Magnesium (test code = 1.4 mg/dL 1.6-2.6 L Speci men 10742-4) slightly hemolyzed STACY (test code = STACY) Opinion Polls Survey Worker ID - PIAYA L Lab Interpretation Abnormal (test code = 51912-2) [facility] [id number] 14:35:00 Test Item Value Reference Range Interpretation Comments CRP (test code = 676) 2.68 mg/dL 0.00-0.50 H STACY (test code = STACY) Opinion Polls Survey Worker ID - PIJONNY L Lab Interpretation (test Abnormal code = 88346-4) [facility]2021-[facility]-08 14:35:00 Test Item Value Reference Range Interpretation Comments Magnesium (test code = 1.4 mg/dL 1.6-2.6 L Speci men 08699-8) slightly hemolyzed STACY (test code = STACY) Opinion Polls Survey Worker ID - PIJONNY L Lab Interpretation Abnormal (test code = 64981-7) [facility] [id number] 14:35:00 Test Item Value Reference Range Interpretation Comments CRP (test code = 676) 2.68 mg/dL 0.00-0.50 H STACY (test code = STACY) Opinion Polls Survey Worker ID - MERT L Lab Interpretation (test Abnormal code = 20367-6) [facility]2021-[facility] 14:35:00 Test Item Value Reference Range Interpretation Comments MAGNESIUM (BEAKER) 1.4 mg/dL 1.6-2.6 L Specimen slightly (test code = 627) hemolyzed Opinion Polls Survey Worker ID - MERT LC-REACTIVE [id number] 14:35:00 Test Item Value Reference Range Interpretation Comments C-REACTIVE PROTEIN (BEAKER) (test 2.68 mg/dL 0.00-0.50 H code = 676) Opinion Polls Survey Worker ID - MERT XC-[id number] 14:24:00 Test Item Value Reference Range Interpretation Comments D-Dimer, Quant (test 1.25 See_Comment H [Autom ated code = 09283-0) message] The system which generated this result [...] range. Lab Interpretation Abnormal (test code = 83339-3) [facility] 14:24:00 Test Item Value Reference Range Interpretation Comments D-Dimer, Quant (test 1.25 See_Comment H [Autom ated code = 78075-0) message] The system which generated this result [...] range. Lab Interpretation Abnormal (test code = 39063-9) [facility]-tahgj2605-66-70 14:24:00 Test Item Value Reference Range Interpretation Comments D-Dimer, Quant (test 1.25 See_Comment H [Autom ated code = 76468-0) message] The system which generated this result [...] range. Lab Interpretation Abnormal (test code = 41468-6) [facility]-idspr5732-08-97 14:24:00 Test Item Value Reference Range Interpretation Comments D-Dimer, Quant (test 1.25 See_Comment H [Autom ated code = 27583-0) message] The system which generated this result [...] range. Lab Interpretation Abnormal (test code = 91093-1) [facility]-[id number] 14:24:00 Test Item Value Reference Range Interpretation [...] 95-100% range.CBC with platelet count + automated [id number] 14:17:00 Test Item Value Reference Range Interpretation Comments WBC (test code = 6690-2) 14.6 See_Comment H [A utomated message] The system XIFIN generated this result transmitted ref erence range: 3.5 - 10 .5 K/L. The refe rence range was not u sed to interpret this result as normal/abnor mal. RBC (test code = 789-8) 4.03 See_Comment L [Au tomated message] The system XIFIN generated this result transmitted ref erence range: 4.63 - 6 .08 M/L. The refe rence range was not u sed to interpret this result as normal/abnor mal. MCHC (test code = 786-4) 32.0 See_Comment L [A utomated message] The system XIFIN generated this result transmitted ref erence range: [...] See_Comment [Aut omated message] 777-3) The system [employer]IF[employer] generated this result transmitted ref erence range: 150 - 45 0 K/CU MM. The referen ce range was not u sed to interpret this result as normal/abnor mal. MPV (test code = 11.2 fL 9.4-12.4 08752-8) nRBC (test code = 413) 1 See_Comment H [Aut omated message] The system XIFIN generated this result transmitted ref erence range: [...] H [Aut omated message] 670) The system [employer]IF[employer] generated this result transmitted ref erence range: 1.78 - 5 .38 K/L. The refe rence range was not u sed to interpret this result as normal/abnor mal. # Lymphs (test code = 1.26 See_Comment L [Auto mated message] 414) The system [employer]IF[employer] generated this result transmitted ref erence range: 1.32 - 3 .57 K/L. The refe rence range was not u sed to interpret this result as normal/abnor mal. # Monos (test code = 0.76 See_Comment [Autom ated message] 415) The system [employer]IFIN generated this result transmitted ref erence range: 0.30 - 0 .82 K/L. The refe rence range was not u sed to interpret this result as normal/abnor mal. # Eos (test code = 416) 0.00 See_Comment L [Au tomated message] The system XIFIN generated this result transmitted ref erence range: 0.04 - 0 .54 K/L. The refe rence range was not u sed to interpret this result as normal/abnor mal. # Baso (test code = 417) 0.03 See_Comment [A utomated message] The system XIFIN generated this result transmitted ref erence range: 0.01 - 0 .08 K/L. The refe rence range was not u sed to interpret this result as normal/abnor mal. Immature 2 % 0-1 H Granulocytes-Relative (test code = 2801) Lab Interpretation (test Abnormal code = 13017-2) [facility] with platelet count + automated [id number] 14:17:00 Test Item Value Reference Range Interpretation Comments WBC (test code = 6690-2) 14.6 See_Comment H [A utomated message] The system XIFIN generated this result transmitted ref erence range: 3.5 - 10 .5 K/L. The refe rence range was not u sed to interpret this result as normal/abnor mal. RBC (test code = 789-8) 4.03 See_Comment L [Au tomated message] The system XIFIN generated this result transmitted ref erence range: 4.63 - 6 .08 M/L. The refe rence range was not u sed to interpret this result as normal/abnor mal. MCHC (test code = 786-4) 32.0 See_Comment L [A utomated message] The system XIFIN generated this result transmitted ref erence range: [...] See_Comment [Aut omated message] 777-3) The system [employer]IFIN generated this result transmitted ref erence range: 150 - 45 0 K/CU MM. The referen ce range was not u sed to interpret this result as normal/abnor mal. MPV (test code = 11.2 fL 9.4-12.4 29443-4) nRBC (test code = 413) 1 See_Comment H [Aut omated message] The system XIFIN generated this result transmitted ref erence range: [...] H [Aut omated message] 670) The system XIFIN generated this result transmitted ref erence range: 1.78 - 5 .38 K/L. The refe rence range was not u sed to interpret this result as normal/abnor mal. # Lymphs (test code = 1.26 See_Comment L [Auto mated message] 414) The system XIFIN generated this result transmitted ref erence range: 1.32 - 3 .57 K/L. The refe rence range was not u sed to interpret this result as normal/abnor mal. # Monos (test code = 0.76 See_Comment [Autom ated message] 415) The system XIFIN generated this result transmitted ref erence range: 0.30 - 0 .82 K/L. The refe rence range was not u sed to interpret this result as normal/abnor mal. # Eos (test code = 416) 0.00 See_Comment L [Au tomated message] The system XIFIN generated this result transmitted ref erence range: 0.04 - 0 .54 K/L. The refe rence range was not u sed to interpret this result as normal/abnor mal. # Baso (test code = 417) 0.03 See_Comment [A utomated message] The system XIFIN generated this result transmitted ref erence range: 0.01 - 0 .08 K/L. The refe rence range was not u sed to interpret this result as normal/abnor mal. Immature 2 % 0-1 H Granulocytes-Relative (test code = 2801) Lab Interpretation (test Abnormal code = 50138-6) [facility] with platelet count + automated [id number] 14:17:00 Test Item Value Reference Range Interpretation Comments WBC (test code = 6690-2) 14.6 See_Comment H [A utomated message] The system XIFIN generated this result transmitted ref erence range: 3.5 - 10 .5 K/L. The refe rence range was not u sed to interpret this result as normal/abnor mal. RBC (test code = 789-8) 4.03 See_Comment L [Au tomated message] The system XIFIN generated this result transmitted ref erence range: 4.63 - 6 .08 M/L. The refe rence range was not u sed to interpret this result as normal/abnor mal. MCHC (test code = 786-4) 32.0 See_Comment L [A utomated message] The system XIFIN generated this result transmitted ref erence range: [...] See_Comment [Aut omated message] 777-3) The system XIFIN generated this result transmitted ref erence range: 150 - 45 0 K/CU MM. The referen ce range was not u sed to interpret this result as normal/abnor mal. MPV (test code = 11.2 fL 9.4-12.4 75631-4) nRBC (test code = 413) 1 See_Comment H [Aut omated message] The system XIFIN generated this result transmitted ref erence range: [...] H [Aut omated message] 670) The system XIFIN generated this result transmitted ref erence range: 1.78 - 5 .38 K/L. The refe rence range was not u sed to interpret this result as normal/abnor mal. # Lymphs (test code = 1.26 See_Comment L [Auto mated message] 414) The system XIFIN generated this result transmitted ref erence range: 1.32 - 3 .57 K/L. The refe rence range was not u sed to interpret this result as normal/abnor mal. # Monos (test code = 0.76 See_Comment [Autom ated message] 415) The system XIFIN generated this result transmitted ref erence range: 0.30 - 0 .82 K/L. The refe rence range was not u sed to interpret this result as normal/abnor mal. # Eos (test code = 416) 0.00 See_Comment L [Au tomated message] The system XIFIN generated this result transmitted ref erence range: 0.04 - 0 .54 K/L. The refe rence range was not u sed to interpret this result as normal/abnor mal. # Baso (test code = 417) 0.03 See_Comment [A utomated message] The system XIFIN generated this result transmitted ref erence range: 0.01 - 0 .08 K/L. The refe rence range was not u sed to interpret this result as normal/abnor mal. Immature 2 % 0-1 H Granulocytes-Relative (test code = 2801) Lab Interpretation (test Abnormal code = 37725-3) [facility] with platelet count + automated [id number] 14:17:00 Test Item Value Reference Range Interpretation Comments WBC (test code = 6690-2) 14.6 See_Comment H [A utomated message] The system XIFIN generated this result transmitted ref erence range: 3.5 - 10 .5 K/L. The refe rence range was not u sed to interpret this result as normal/abnor mal. RBC (test code = 789-8) 4.03 See_Comment L [Au tomated message] The system XIFIN generated this result transmitted ref erence range: 4.63 - 6 .08 M/L. The refe rence range was not u sed to interpret this result as normal/abnor mal. MCHC (test code = 786-4) 32.0 See_Comment L [A utomated message] The system XIFIN generated this result transmitted ref erence range: [...] See_Comment [Aut omated message] 777-3) The system XIFIN generated this result transmitted ref erence range: 150 - 45 0 K/CU MM. The referen ce range was not u sed to interpret this result as normal/abnor mal. MPV (test code = 11.2 fL 9.4-12.4 67779-9) nRBC (test code = 413) 1 See_Comment H [Aut omated message] The system XIFIN generated this result transmitted ref erence range: [...] H [Aut omated message] 670) The system XIFIN generated this result transmitted ref erence range: 1.78 - 5 .38 K/L. The refe rence range was not u sed to interpret this result as normal/abnor mal. # Lymphs (test code = 1.26 See_Comment L [Auto mated message] 414) The system XIFIN generated this result transmitted ref erence range: 1.32 - 3 .57 K/L. The refe rence range was not u sed to interpret this result as normal/abnor mal. # Monos (test code = 0.76 See_Comment [Autom ated message] 415) The system XIFIN generated this result transmitted ref erence range: 0.30 - 0 .82 K/L. The refe rence range was not u sed to interpret this result as normal/abnor mal. # Eos (test code = 416) 0.00 See_Comment L [Au tomated message] The system XIFIN generated this result transmitted ref erence range: 0.04 - 0 .54 K/L. The refe rence range was not u sed to interpret this result as normal/abnor mal. # Baso (test code = 417) 0.03 See_Comment [A utomated message] The system XIFIN generated this result transmitted ref erence range: 0.01 - 0 .08 K/L. The refe rence range was not u sed to interpret this result as normal/abnor mal. Immature 2 % 0-1 H Granulocytes-Relative (test code = 2801) Lab Interpretation (test Abnormal code = 42482-9) [facility] W/PLT COUNT & AUTO [id number] 14:17:00 Test Item Value Reference Range Interpretation [...] PERCENT (BEAKER) (test code = 2801) POC-Glucose [id number] 02:03:00 Test Item Value Reference Range Interpretation Comments POC-Glucose Meter (test 115 mg/dL 70-110 H : TE STED AT [facility] code = 1538) [address] [facility], 770 30: Opinion Polls Survey Worker/Techni tressa ID = [id number] for Desin (contract ), Nhi Lab Interpretation (test Abnormal code = 25454-2) [facility]-Glucose [id number] 02:03:00 Test Item Value Reference Range Interpretation Comments POC-Glucose Meter (test 115 mg/dL 70-110 H : TE STED AT [facility] code = 1538) [address] [place] [address], 770 30: Opinion Polls Survey Worker/Techni tressa ID = [id number] for Desin (contract ), Nhi Lab Interpretation (test Abnormal code = 92863-9) [facility]-Glucose [id number] 02:03:00 Test Item Value Reference Range Interpretation Comments POC-Glucose Meter (test 115 mg/dL 70-110 H : TE STED AT [facility] code = 1538) [address] [place] [address], 770 30: Opinion Polls Survey Worker/Techni tressa ID = [id number] for Desin (contract ), Nhi Lab Interpretation (test Abnormal code = 58411-1) [facility] [id number] 02:03:00 Test Item Value Reference Range Interpretation Comments POC-Glucose Meter (test 115 mg/dL 70-110 H : TE STED AT [facility] code = 1538) [address] [place] [address], 770 30: Opinion Polls Survey Worker/Techni tressa ID = [id number] for Desin (contract ), Nhi Lab Interpretation (test Abnormal code = 19647-9) [facility]-GLUCOSE [id number] 02:03:00 Test Item Value Reference Range Interpretation Comments POC-GLUCOSE METER 115 mg/dL 70-110 H : TESTED A T [facility] [address] (BEAKER) (test [facility] = [facility], 1538) [address]: Opinion Polls Survey Worker/Techni tressa ID = [id number] for De sin (contract), Vineet da POCT-GLUCOSE [id number] 21:04:00 Test Item Value Reference Range Interpretation Comments POC-GLUCOSE METER 143 mg/dL 70-110 H : TESTED A T [facility] 67[address] (BEAKER) (test code = ROMINA Payne [facility], 1538) [address]: Opinion Polls Survey Worker/Techni tressa ID = [id number] for NEHA OLSON SARS-CoV2/Influenza/RSV RT-PCR (Symptomatic ONLY)2021-04-01 19:00:00 Test Item Value Reference Interpretation Comments Range SARS-COV2/RT-PCR Positive Negative AA The SARS-Co V-2 (test code = target nucleic 42523-7) acids are detec saulo in this specime [...] (test code = [place] 22116-4) not detected in this specimen. Influenza B RT-PCR Negative Negative The Flu B target (test code = [place] [address]-4) not detected in this specimen. RSV by RT-PCR (test Negative Negative The RSV target code = 99320-2) nucleic acid s are not detected in [...] the Act. Fact Sheet for Healthcare Providers:https://w [employer]/Docu ments/Xpert%20Xpres s%20SARS%20CoV-2/Fa ct%20Sheets/302-390 2%92HXTT-FJX-2%20HE ALTHCARE%20PROVIDER S%20FACT%20SHEET.pd f Fact Sheet for Healthcare Patients:https://[employer]/Docum ents/Xpert%20Xpress %20SARS%20Cov-2/Fac t%20Sheets/302-3801 %24VANO-UYC-3%20PAT IENT%20FACT%20SHEET .pdf Lab Interpretation Abnormal (test code = 24475-4) [facility]Symptomatic ONLY) 2021-04-01 19:00:00 Test Item Value Reference Interpretation Comments Range SARS-COV2/RT-PCR Positive Negative AA The SARS-Co V-2 (test code = target nucleic 48104-1) acids are detec saulo in this specime [...] (test code = [place] [address]-2) not detected in this specimen. Influenza B RT-PCR Negative Negative The Flu B target (test code = [place] 44548-6) not detected in this specimen. RSV by RT-PCR (test Negative Negative The RSV target code = 80134-9) nucleic acid s are not detected in [...] the Act. Fact Sheet for Healthcare Providers:https://w [employer]/Docu ments/Xpert%20Xpres s%20SARS%20CoV-2/Fa ct%20Sheets/302-390 2%28FBUO-TOI-7%20HE ALTHCARE%20PROVIDER S%20FACT%20SHEET.pd f Fact Sheet for Healthcare Patients:https://[employer]/Docum ents/Xpert%20Xpress %20SARS%20Cov-2/Fac t%20Sheets/302-3801 %40PEIG-YAJ-8%20PAT IENT%20FACT%20SHEET .pdf Lab Interpretation Abnormal (test code = 26693-4) [facility]V [facility] (Symptomatic ONLY) 2021-04-01 19:00:00 Test Item Value Reference Interpretation Comments Range SARS-COV2/RT-PCR Positive Negative AA The SARS-Co V-2 (test code = target nucleic 94658-0) acids are detec saulo in this specime [...] (test code = [place] [address]72[address]-8) not detected in this specimen. Influenza B RT-PCR Negative Negative The Flu B target (test code = [place] 18498-6) not detected in this specimen. RSV by RT-PCR (test Negative Negative The RSV target code = 48358-9) nucleic acid s are not detected in [...] SARS-CoV-2/Flu/RSV by their healthcare provider. Results from [facility] Xpert Xpress SARS-CoV-2/Flu/RSV test should be correlated [...] the Act. Fact Sheet for Healthcare Providers:https://w [employer]/Docu ments/Xpert%20Xpres s%20SARS%20CoV-2/Fa ct%20Sheets/302-390 2%68UMGO-AQD-2%20HE ALTHCARE%20PROVIDER S%20FACT%20SHEET.pd f Fact Sheet for Healthcare Patients:https://[employer]/Docum ents/Xpert%20Xpress %20SARS%20Cov-2/Fac t%20Sheets/302-3801 %38MGOL-LTC-9%20PAT IENT%20FACT%20SHEET .pdf Lab Interpretation Abnormal (test code = 14096-8) [facility]V [facility] (Symptomatic ONLY) 2021-04-01 19:00:00 Test Item Value Reference Interpretation Comments Range SARS-COV2/RT-PCR Positive Negative AA The SARS-Co V-2 (test code = target nucleic 08019-2) acids are detec saulo in this specime [...] (test code = [place] 91865-4) not detected in this specimen. Influenza B RT-PCR Negative Negative The Flu B target (test code = [place] re 24468-7) not detected in this specimen. RSV by RT-PCR (test Negative Negative The RSV target code = 56336-5) nucleic acid s are not detected in [...] SARS-CoV-2/Flu/RSV by their healthcare provider. Results from [facility] Xpert Xpress SARS-CoV-2/Flu/RSV test should be correlated [...] the Act. Fact Sheet for Healthcare Providers:https://w [employer]/Docu ments/Xpert%20Xpres s%20SARS%20CoV-2/Fa ct%20Sheets/302-390 2%16NNKM-LAB-6%20HE ALTHCARE%20PROVIDER S%20FACT%20SHEET.pd f Fact Sheet for Healthcare Patients:https://[employer]/Docum ents/Xpert%20Xpress %20SARS%20Cov-2/Fac t%20Sheets/302-3801 %40WLVE-ITX-0%20PAT IENT%20FACT%20SHEET .pdf Lab Interpretation Abnormal (test code = 74790-0) [facility] [id number] 19:00:00 Test Item Value Reference Range Interpretation Comments SARS-COV2/RT-PCR Positive Negative AA The SARS-Co V-2 target (test code = nucleic acids a re 4306768) detected in thi s specimen. The presence [...] rapid, real-time RT-PC R test intended for e qualitative det ection of nucleic acid fr om SARS-CoV-2 in a nasopharyngeal swab specimen collec saulo from individuals teressa pected of COVID-19 by the [facility]. Results from e Xpert Xpress SARS-CoV -2 test should [...] The RSV ta rget nucleic code = 6054879) acids are no t detected in this [...] SARS-CoV-2/Flu/RSV by their healthcare provider. Results from [facility] Xpert Xpress SARS-CoV-2/Flu/RSV test should be correlated [...] of the Act.Fact Sheet for Healthcare Providers :https://www.[employer]/Documents/Xpert%20Xpress%20SARS%20CoV-2/Fact%20Sheets/3 02-3902%24EPUE-POW-1%20HEALTHCARE%20PROVIDERS%20FACT%20SHEET.pdfFact Sheet for Healthcare Patients:https://www.[employer] /Documents/Xpert%20Xpress%20SARS%20Cov-2/Fact%20Sheets/302-3801%94ALTX-VGK-6%20P ATIENT%20FACT%20SHEET.pdfUrinalysis w/Microscopic + Reflex to [id number] 17:43:00 Test Item Value Reference Range Interpretation Comments Color, UA (test code Yellow = 5778-6) Clarity, UA (test Hazy code = 5767-9) Specific [place], UA 1.031 1.001-1.035 (test code = 5811-5) pH, UA (test code = 6.0 5.0-8.0 5803-2) Protein, UA (test 70 mg/dL Negative A code = 83710-2) Glucose, UA (test Negative Negative code = 365) Ketones, UA (test Trace Negative A code = 2514-8) Bilirubin, UA (test Negative Negative code = 97084-0) Blood, UA (test code Moderate Negative A = 04907-2) Nitrite, UA (test Negative Negative code = 5802-4) Leukocytes, UA (test Small Negative A code = 5799-2) Urobilinogen, UA 0.2 mg/dL 0.2-1 (test code = 61198-6) RBC, UA (test code = 27 See_Comment [Autom ated 67167-3) message] The system which generated this result [...] Bacteria, UA (test None Seen code = 51469-3) Mucus (test code = Rare 8247-9) Squam Epithel, UA <1 See_Comment [Automate d (test code = 08104-2) messag e] The system which generated this result transmitted reference range : /HPF. The reference range was not used to interpret this result as normal/abnormal . Hyaline Casts, UA 3 See_Comment [Automate d (test code = 45288-8) messag e] The system which generated this result transmitted reference range : /LPF. The reference range was not used to interpret this result as normal/abnormal . Crystals, Urine (test None Seen code = 13429-2) Yeast (test code = Occasional 45610-8) Specimen Source (test code = 2795) STACY (test code = STACY) Opinion Polls Survey Worker ID - [auto]Opinion Polls Survey Worker ID - tech Lab Interpretation Abnormal (test code = 88660-3) [facility] Reflex to Culture 2021-04-01 17:43:00 Test Item Value Reference Range Interpretation Comments Color, UA (test code Yellow = 5778-6) Clarity, UA (test Hazy code = 5767-9) Specific [place], UA 1.031 1.001-1.035 (test code = 5811-5) pH, UA (test code = 6.0 5.0-8.0 5803-2) Protein, UA (test 70 mg/dL Negative A code = 96818-9) Glucose, UA (test Negative Negative code = 365) Ketones, UA (test Trace Negative A code = 2514-8) Bilirubin, UA (test Negative Negative code = 38770-7) Blood, UA (test code Moderate Negative A = 92298-1) Nitrite, UA (test Negative Negative code = 5802-4) Leukocytes, UA (test Small Negative A code = 5799-2) Urobilinogen, UA 0.2 mg/dL 0.2-1.0 (test code = 90506-2) RBC, UA (test code = 27 See_Comment [Autom ated 34163-5) message] The system which generated this result [...] Bacteria, UA (test None Seen code = 49374-1) Mucus (test code = Rare 8247-9) Squam Epithel, UA <1 See_Comment [Automate d (test code = 34020-2) messag e] The system which generated this result transmitted reference range : /HPF. The reference range was not used to interpret this result as normal/abnormal . Hyaline Casts, UA 3 See_Comment [Automate d (test code = 60588-8) messag e] The system which generated this result transmitted reference range : /LPF. The reference range was not used to interpret this result as normal/abnormal . Crystals, Urine (test None Seen code = 87480-6) Yeast (test code = Occasional 39204-3) Specimen Source (test code = 2795) STACY (test code = STACY) Opinion Polls Survey Worker ID - [auto]Opinion Polls Survey Worker ID - tech Lab Interpretation Abnormal (test code = 99215-8) [facility] + Reflex to Culture 2021-04-01 17:43:00 Test Item Value Reference Range Interpretation Comments Color, UA (test code Yellow = 5778-6) Clarity, UA (test Hazy code = 5767-9) Specific [place], UA 1.031 1.001-1.035 (test code = 5811-5) pH, UA (test code = 6.0 5.0-8.0 5803-2) Protein, UA (test 70 mg/dL Negative A code = 14614-3) Glucose, UA (test Negative Negative code = 365) Ketones, UA (test Trace Negative A code = 2514-8) Bilirubin, UA (test Negative Negative code = 67128-1) Blood, UA (test code Moderate Negative A = 31072-5) Nitrite, UA (test Negative Negative code = 5802-4) Leukocytes, UA (test Small Negative A code = 5799-2) Urobilinogen, UA 0.2 mg/dL 0.2-1.0 (test code = 93112-5) RBC, UA (test code = 27 See_Comment [Autom ated 78827-2) message] The system which generated this result [...] Bacteria, UA (test None Seen code = 73763-3) Mucus (test code = Rare 8247-9) Squam Epithel, UA <1 See_Comment [Automate d (test code = 90956-2) messag e] The system which generated this result transmitted reference range : /HPF. The reference range was not used to interpret this result as normal/abnormal . Hyaline Casts, UA 3 See_Comment [Automate d (test code = 89725-8) messag e] The system which generated this result transmitted reference range : /LPF. The reference range was not used to interpret this result as normal/abnormal . Crystals, Urine (test None Seen code = 49678-1) Yeast (test code = Occasional 98052-2) Specimen Source (test code = 2795) STACY (test code = STACY) Opinion Polls Survey Worker ID - [auto]Opinion Polls Survey Worker ID - tech Lab Interpretation Abnormal (test code = 27643-6) [facility] + Reflex to Culture 2021-04-01 17:43:00 Test Item Value Reference Range Interpretation Comments Color, UA (test code Yellow = 5778-6) Clarity, UA (test Hazy code = 5767-9) Specific [place], UA 1.031 1.001-1.035 (test code = 5811-5) pH, UA (test code = 6.0 5.0-8.0 5803-2) Protein, UA (test 70 mg/dL Negative A code = 50827-7) Glucose, UA (test Negative Negative code = 365) Ketones, UA (test Trace Negative A code = 2514-8) Bilirubin, UA (test Negative Negative code = 18624-0) Blood, UA (test code Moderate Negative A = 68956-7) Nitrite, UA (test Negative Negative code = 5802-4) Leukocytes, UA (test Small Negative A code = 5799-2) Urobilinogen, UA 0.2 mg/dL 0.2-1.0 (test code = 48883-1) RBC, UA (test code = 27 See_Comment [Autom ated 58768-6) message] The system which generated this result [...] Bacteria, UA (test None Seen code = 80009-6) Mucus (test code = Rare 8247-9) Squam Epithel, UA <1 See_Comment [Automate d (test code = 84485-2) messag e] The system which generated this result transmitted reference range : /HPF. The reference range was not used to interpret this result as normal/abnormal . Hyaline Casts, UA 3 See_Comment [Automate d (test code = 05012-5) messag e] The system which generated this result transmitted reference range : /LPF. The reference range was not used to interpret this result as normal/abnormal . Crystals, Urine (test None Seen code = 78182-6) Yeast (test code = Occasional 43651-7) Specimen Source (test code = 2795) STACY (test code = STACY) Opinion Polls Survey Worker ID - [auto]Opinion Polls Survey Worker ID - tech Lab Interpretation Abnormal (test code = 54229-7) [facility]LEX URINE [id number] 17:43:00 Test Item Value Reference Range Interpretation [...] = 1585) Occasional SOURCE(BEAKER) (test code = 9095) Opinion Polls Survey Worker ID - [auto]Opinion Polls Survey Worker ID - techBasic Metabolic [id number] 17:22:00 Test Item Value Reference Range Interpretation Comments Sodium (test code = 143 meq/L 821-596 2461-2) Potassium (test code = 3.3 meq/L 3.5-5.1 L 2823-3) Chloride (test code = 117 meq/L 98-107 H 2075-0) CO2 (test code = 18 meq/L 22-29 L 2028-9) BUN (test code = 44 mg/dL 7-21 H 3094-0) Creatinine (test code 0.87 mg/dL 0.57-1.25 = 2160-0) Glucose (test code = 170 mg/dL 70-105 H 2345-7) Calcium (test code = 7.4 mg/dL 8.4-10.2 L 64789-5) EGFR (test code = 85 mL/min/1.73 [place] [address]-7) NOT ACCURATE CREATININE CLEARANCE IN PREDICTING GLOMERULAR FILTRATION RATE . ESTIMATED GFR I S NOT APPLICABLE FOR DIALYSIS PATIENTS. STACY (test code = STACY) Opinion Polls Survey Worker ID - BS Lab Interpretation Abnormal (test code = 18760-2) [facility] Metabolic [id number] 17:22:00 Test Item Value Reference Range Interpretation Comments Sodium (test code = 143 meq/L 548-124 3746-2) Potassium (test code = 3.3 meq/L 3.5-5.1 L 2823-3) Chloride (test code = 117 meq/L 98-107 H 2075-0) CO2 (test code = 18 meq/L 22-29 L 2028-9) BUN (test code = 44 mg/dL 7-21 H 3094-0) Creatinine (test code 0.87 mg/dL 0.57-1.25 = 2160-0) Glucose (test code = 170 mg/dL 70-105 H 2345-7) Calcium (test code = 7.4 mg/dL 8.4-10.2 L 64778-8) EGFR (test code = 85 mL/min/1.[place] [address]-4) NOT ACCURATE CREATININE CLEARANCE IN PREDICTING GLOMERULAR FILTRATION RATE . ESTIMATED GFR I S NOT APPLICABLE FOR DIALYSIS PATIENTS. STACY (test code = STACY) Opinion Polls Survey Worker ID - BS Lab Interpretation Abnormal (test code = 65970-4) [facility] Metabolic [id number] 17:22:00 Test Item Value Reference Range Interpretation Comments Sodium (test code = 143 meq/L 202-547 3831-2) Potassium (test code = 3.3 meq/L 3.5-5.1 L 2823-3) Chloride (test code = 117 meq/L 98-107 H 2075-0) CO2 (test code = 18 meq/L 22-29 L 2028-9) BUN (test code = 44 mg/dL 7-21 H 3094-0) Creatinine (test code 0.87 mg/dL 0.57-1.25 = 2160-0) Glucose (test code = 170 mg/dL 70-105 H 2345-7) Calcium (test code = 7.4 mg/dL 8.4-10.2 L 72348-0) EGFR (test code = 85 mL/min/1.[place] [address]-3) NOT ACCURATE CREATININE CLEARANCE IN PREDICTING GLOMERULAR FILTRATION RATE . ESTIMATED GFR I S NOT APPLICABLE FOR DIALYSIS PATIENTS. STACY (test code = STACY) Opinion Polls Survey Worker ID - BS Lab Interpretation Abnormal (test code = 39552-3) [facility] Metabolic [id number] 17:22:00 Test Item Value Reference Range Interpretation Comments Sodium (test code = 143 meq/L 947-201 4366-2) Potassium (test code = 3.3 meq/L 3.5-5.1 L 2823-3) Chloride (test code = 117 meq/L 98-107 H 2075-0) CO2 (test code = 18 meq/L 22-29 L 2028-9) BUN (test code = 44 mg/dL 7-21 H 3094-0) Creatinine (test code 0.87 mg/dL 0.57-1.25 = 2160-0) Glucose (test code = 170 mg/dL 70-105 H 2345-7) Calcium (test code = 7.4 mg/dL 8.4-10.2 L 66876-0) EGFR (test code = 85 mL/min/1.[place] [address]-0) NOT ACCURATE CREATININE CLEARANCE IN PREDICTING GLOMERULAR FILTRATION RATE . ESTIMATED GFR I S NOT APPLICABLE FOR DIALYSIS PATIENTS. STACY (test code = STACY) Opinion Polls Survey Worker ID - BS Lab Interpretation Abnormal (test code = 85487-4) [facility] METABOLIC [id number] 17:22:00 Test Item Value Reference Range Interpretation Comments SODIUM (BEAKER) 143 meq/L 136-145 (test code = 381) POTASSIUM (BEAKER) 3.3 meq/L 3.5-5.1 L (test code = 379) CHLORIDE (BEAKER) 117 meq/L 98-107 H (test code = 382) CO2 (BEAKER) (test 18 meq/L 22-29 L code = 355) BLOOD UREA NITROGEN 44 mg/dL 7-21 H (BEAKER) (test code = 354) CREATININE (RENEA) 0.87 mg/dL 0.57-1.25 (test code = 358) GLUCOSE RANDOM 170 mg/dL 70-105 H (RENEA) (test code = 652) CALCIUM (YUSUFAKER) 7.4 mg/dL 8.4-10.2 L (test code = 697) EGFR (RENEA) (test 85 mL/min/1.73 ESTIMA SAULO GFR IS code = 1092) sq m NOT ACCURATE CREATININE CLEARANCE IN PREDICTING GLOMERULAR FILTRATION RATE . ESTIMATED GFR I S NOT APPLICABLE FOR DIALYSIS PATIEN TS. Opinion Polls Survey Worker ID - BSPOCT-GLUCOSE [id number] 17:03:00 Test Item Value Reference Range Interpretation Comments POC-GLUCOSE METER 161 mg/dL 70-110 H : TESTED A T [facility] 6720 (RENEA) (test code = [facility], 1538) 95457: Opinion Polls Survey Worker/Techni tressa ID = [id number] for ASHLEY MATA POCT-GLUCOSE [id number] 11:55:00 Test Item Value Reference Range Interpretation Comments POC-GLUCOSE METER 171 mg/dL 70-110 H : TESTED A T [facility] 6720 ([employer]USUFH[employer]) (test code = [facility], 1538) 42174: Opinion Polls Survey Worker/Techni tressa ID = [id number] for ASHLEY MATA Vancomycin level, [id number] 11:02:00 Test Item Value Reference Range Interpretation Comments Vancomycin Tr (test code = 19.1 ug/mL 10-20 4092-3) STACY (test code = STACY) Opinion Polls Survey Worker ID - WINNIE C Lab Interpretation (test Normal code = 22620-0) [facility], [id number] 11:02:00 Test Item Value Reference Range Interpretation Comments Vancomycin Tr (test code = 19.1 ug/mL 10.0-20.0 4092-3) STACY (test code = STACY) Opinion Polls Survey Worker ID - WINNIE C Lab Interpretation (test Normal code = 90743-3) [facility], [id number] 11:02:00 Test Item Value Reference Range Interpretation Comments Vancomycin Tr (test code = 19.1 ug/mL 10.0-20.0 4092-3) STACY (test code = STACY) Opinion Polls Survey Worker ID - WINNIE C Lab Interpretation (test Normal code = 72639-7) [facility], [id number] 11:02:00 Test Item Value Reference Range Interpretation Comments Vancomycin Tr (test code = 19.1 ug/mL 10.0-20.0 4092-3) STACY (test code = STACY) Opinion Polls Survey Worker ID - WINNIE C Lab Interpretation (test Normal code = 58396-0) [facility] CenterVANCOMYCIN LEVEL, [id number] 11:02:00 Test Item Value Reference Range Interpretation Comments VANCOMYCIN TROUGH (BEAKER) (test 19.1 ug/mL 10.0-20.0 code = 522) Opinion Polls Survey Worker ID - WINNIE CCreatine Kinase (CK)2021-04-01 06:28:00 Test Item Value Reference Range Interpretation Comments Total CK (test code = 19 U/L 29-200 L 2157-6) STACY (test code = STACY) Opinion Polls Survey Worker ID - PIAYA L Lab Interpretation (test Abnormal code = 78236-9) [facility] Kin[facility] (CK)2021-04-01 06:28:00 Test Item Value Reference Range Interpretation Comments Total CK (test code = 19 U/L 29-200 L 2157-6) STACY (test code = STACY) Opinion Polls Survey Worker ID - PIAYA L Lab Interpretation (test Abnormal code = 56330-0) [facility] Center[facility]ine Kin[facility] (CK)2021-04-01 06:28:00 Test Item Value Reference Range Interpretation Comments Total CK (test code = 19 U/L 29-200 L 2157-6) STACY (test code = STACY) Opinion Polls Survey Worker ID - PIAYA L Lab Interpretation (test Abnormal code = 53798-9) [facility] CenterCreatine Kinase (CK)2021-04-01 06:28:00 Test Item Value Reference Range Interpretation Comments Total CK (test code = 19 U/L 29-200 L 2157-6) STACY (test code = STACY) Opinion Polls Survey Worker ID - PIAYA L Lab Interpretation (test Abnormal code = 43986-3) [facility] CenterBASIC METABOLIC [id number] 06:28:00 Test Item Value Reference Range Interpretation [...] S NOT APPLICABLE FOR DIALYSIS PATIEN TS. Opinion Polls Survey Worker ID - PIAYA LCREATINE KINASE (CK)2021-04-01 06:28:00 Test Item Value Reference Range Interpretation Comments CREATINE KINASE TOTAL (BEAKER) (test 19 U/L 29-200 L code = 380) Opinion Polls Survey Worker ID - PIAYA LHepatic function [id number] 06:09:00 Test Item Value Reference Range Interpretation Comments Protein, Total (test 6.0 See_Comment Specime n slightly code = 2915-2) hemolyzed [Automated message] The system which generated this result transmit saulo reference range : 6.0 - 8.3 gm/dL . The reference range was not u sed to interpret th is result as normal/abnormal . Albumin (test code = 2.1 g/dL 3.5-5 L Specime n slightly 22432-5) hemolyzed Total Bilirubin (test 0.4 mg/dL 0.2-1.2 Specim en slightly code = 1974-) hemolyzed Bilirubin, Direct 0.2 mg/dL 0.1-0.5 Specimen s lightly (test code = 1967-) hemolyz ed Alkaline Phosphatase 54 U/L 40-150 (test code = 6768-6) AST (test code = 54 U/L 5-34 H Specimen sl ightly 1920-8) hemolyzed ALT (test code = 33 U/L 6-55 Specimen sl ightly 1742-6) hemolyzed STACY (test code = STACY) Opinion Polls Survey Worker ID - PIJONNY L Lab Interpretation Abnormal (test code = 93144-9) [facility] CenterPhosphorus2021-09-07 06:09:00 Test Item Value Reference Range Interpretation Comments Phosphorus (test code 2.9 mg/dL 2.3-4.7 Specim en = 2777-1) slightly hemolyzed STACY (test code = STACY) Opinion Polls Survey Worker ID - PIAYA L Lab Interpretation Normal (test code = 50252-1) [facility] CenterHepatic function [id number] 06:09:00 Test Item Value Reference Range Interpretation [...] 2.1 g/dL 3.5-5.0 L Specime n slightly 60317-0) hemolyzed Total Bilirubin (test 0.4 mg/dL 0.2-1.2 Specim en slightly code = 1974-2) hemolyzed Bilirubin, Direct 0.2 mg/dL 0.1-0.5 Specimen s lightly (test code = 1967-7) hemolyz ed Alkaline Phosphatase 54 U/L 40-150 (test code = 6768-6) AST (test code = 54 U/L 5-34 H Specimen sl ightly 192-8) hemolyzed ALT (test code = 33 U/L 6-55 Specimen sl ightly 1742-6) hemolyzed STACY (test code = STACY) Opinion Polls Survey Worker ID - PIAYA L Lab Interpretation Abnormal (test code = 35915-2) [facility] Center[facility]osphorus2021-[facility]-07 06:09:00 Test Item Value Reference Range Interpretation Comments Phosphorus (test code 2.9 mg/dL 2.3-4.7 Specim en = 2777-1) slightly hemolyzed STACY (test code = STACY) Opinion Polls Survey Worker ID - PIAYA L Lab Interpretation Normal (test code = 17117-0) [facility] CenterHepatic function [id number] 06:09:00 Test Item Value Reference Range Interpretation [...] 2.1 g/dL 3.5-5.0 L Specime n slightly 52072-5) hemolyzed Total Bilirubin (test 0.4 mg/dL 0.2-1.2 [...] 1742-6) hemolyzed STACY (test code = STACY) Opinion Polls Survey Worker ID - PIAYA L Lab Interpretation Abnormal (test code = 96369-0) [facility] Center[facility]osphorus2021-[facility]-07 06:09:00 Test Item Value Reference Range Interpretation Comments Phosphorus (test code 2.9 mg/dL 2.3-4.7 Specim en = 2777-1) slightly hemolyzed STACY (test code = STACY) Opinion Polls Survey Worker ID - PIAYA L Lab Interpretation Normal (test code = 07093-8) [facility] CenterHepatic function [id number] 06:09:00 Test Item Value Reference Range Interpretation [...] 2.1 g/dL 3.5-5.0 L Specime n slightly 51686-0) hemolyzed Total Bilirubin (test 0.4 mg/dL 0.2-1.2 [...] 1742-6) hemolyzed STACY (test code = STACY) Opinion Polls Survey Worker ID - PIJONNY L Lab Interpretation Abnormal (test code = 34148-8) [facility]orus2021-[facility]-07 06:09:00 Test Item Value Reference Range Interpretation Comments Phosphorus (test code 2.9 mg/dL 2.3-4.7 Specim en = 2777-1) slightly hemolyzed STACY (test code = STACY) Opinion Polls Survey Worker ID - PIAYA L Lab Interpretation Normal (test code = 07100-9) [facility] CenterMAGNESIUM2021-09-07 06:09:00 Test Item Value Reference Range Interpretation Comments MAGNESIUM (BEAKER) 1.5 mg/dL 1.6-2.6 L Specimen slightly (test code = 627) hemolyzed Opinion Polls Survey Worker ID - MERT [id number] 06:09:00 Test Item Value Reference Range Interpretation Comments PHOSPHORUS (BEAKER) 2.9 mg/dL 2.3-4.7 Specimen slightly (test code = 604) hemolyzed Opinion Polls Survey Worker ID - MERT LHEPATIC FUNCTION [id number] 06:09:00 Test Item Value Reference Range Interpretation [...] Specimen slightly (test code = 347) hemolyzed Opinion Polls Survey Worker ID - PIAYA LC-REACTIVE [id number] 06:09:00 Test Item Value Reference Range Interpretation Comments C-REACTIVE PROTEIN (BEAKER) (test 2.48 mg/dL 0.00-0.50 H code = 676) Opinion Polls Survey Worker ID - PIAYA LCalcium, [id number] 06:05:00 Test Item Value Reference Range Interpretation Comments Calcium, Ion (test code = 1993-09) 1.11 mmol/L 1.12-1.27 L pH, Blood (test code = 99117-4) 7.37 Lab Interpretation (test code = Abnormal 19440-7) [facility] CenterCalcium, [id number] 06:05:00 Test Item Value Reference Range Interpretation Comments Calcium, Ion (test code = 1993-09) 1.11 mmol/L 1.12-1.27 L pH, Blood (test code = 55927-3) 7.37 Lab Interpretation (test code = Abnormal 56854-6) [facility] CenterCalcium, [id number] 06:05:00 Test Item Value Reference Range Interpretation Comments Calcium, Ion (test code = 1993-09) 1.11 mmol/L 1.12-1.27 L pH, Blood (test code = 21979-0) 7.37 Lab Interpretation (test code = Abnormal 57770-5) [facility] CenterCalcium, [id number] 06:05:00 Test Item Value Reference Range Interpretation Comments Calcium, Ion (test code = 1993-09) 1.11 mmol/L 1.12-1.27 L pH, Blood (test code = 60437-2) 7.37 Lab Interpretation (test code = Abnormal 38460-5) [facility] CenterCALCIUM, [id number] 06:05:00 Test Item Value Reference Range Interpretation Comments CALCIUM IONIZED (BEAKER) (test 1.11 mmol/L 1.12-1.27 L code = 698) PH, BLOOD (BEAKER) (test code = 7.37 1810) POCT-GLUCOSE [id number] 05:57:00 Test Item Value Reference Range Interpretation Comments POC-GLUCOSE METER 134 mg/dL 70-110 H : TESTED A T [facility] 6720 (BEAKER) (test code = [place], 1538) 48335: Opinion Polls Survey Worker/Techni tressa ID = [id number] for KALPANA HANSEN CBC W/PLT COUNT & AUTO [id number] 05:52:00 Test Item Value Reference Range Interpretation [...] PERCENT (BEAKER) (test code = 2801) POCT-GLUCOSE [id number] 23:33:00 Test Item Value Reference Range Interpretation Comments POC-GLUCOSE METER 77 mg/dL 70-110 : TESTED A T [facility] 6720 (BEAKER) (test code = [facility], 1538) 83107: Opinion Polls Survey Worker/Techni tressa ID = [id number] for Cart er (agency)[facility] 2D Echo W/Doppler(CW/PW/Color)2021-03-31 17:56:10Ejection FractionSLEH ECHO HEARTLAB MKCKESSON CPACSInterface, External Ris In - 03/31/2021 5:56 PM C DTTransthoracic Echocardiography Report (TTE) Demographics Patient Name KEVIN HAMMOND Date of Study 03/30/2021 Gender Male Visit Number [id number] Race Unknown Room Number C628 Number Date of 1945 Referring Physician JD JEFFERSON Age 75 year(s) Licensed Guide Mili Malagon [facility] Psychiatric Social Worker Supervisor Ger Hui Interpreting Doc Tolbert MD Physician [...] pressure is 30-35 mmHg (normal range). 3. Ksoz-nb-jsczcyno mitral regurgitation. Previous Study No prior exam [...] regurgitation. Mitral Valve Mild MV leaflet thickening. Zige-do-sriimrpg mitral regurgitation. Tricuspid Valve Trace tricuspid regurgitation. [...] LVOT CO: 5.76 l/min LVOT CI: 2.89 l/min/m^2CFrem[facility] W/Doppler(CW/PW/Color)2021-03-31 17:56:10Ejection FractionSLEH ECHO HEARTLAB [facility] Echo W/Doppler(CW/PW/Color) 2021-03-31 17:56:10Ejection FractionSLEH ECHO [facility]ARTLAB [facility] W/Doppler(CW/PW/Color)2021-03-31 17:56:10Ejection FractionSLE ECHO [facility] [id number] 15:39:00 Test Item Value Reference Range Interpretation Comments POC-GLUCOSE METER 81 mg/dL 70-110 : Notified RN/: TESTED (RENEA) (test code AT [facility] 67[address] JORDYN = 1538) [facility], 770 30: Opinion Polls Survey Worker/Techni tressa ID = [id number] for Jose J (contract)Shola [id number] 13:30:00 Test Item Value Reference Range Interpretation Comments MAGNESIUM (BEAKER) (test code = 1.4 mg/dL 1.6-2.6 L 627) Opinion Polls Survey Worker ID - ERWIN [id number] 13:30:00 Test Item Value Reference Range Interpretation Comments PHOSPHORUS (BEAKER) (test code = 2.3 mg/dL 2.3-4.7 604) Opinion Polls Survey Worker ID Doron HOOD FHEPATIC FUNCTION [id number] 13:30:00 Test Item Value Reference Range Interpretation [...] (test code = 19 U/L 6-55 347) Opinion Polls Survey Worker ID - ERWIN FCOMPREHENSIVE METABOLIC [id number] 13:30:00 Test Item Value Reference Range Interpretation [...] = 358) GLUCOSE RANDOM 95 mg/dL 70-105 (AKER) (test code = 652) CALCIUM (BEAKER) 7.6 mg/dL 8.4-10.2 L (test code = 697) AST (SGOT) (BEAKER) 37 U/L 5-34 H (test code = 353) ALT (SGPT) ([facility]) 19 U/L 6-55 (test code = 347) EGFR [facility] (test 97 mL/min/1.73 ESTIMA SAULO GFR IS code = 1092) sq m NOT ACCURATE CREATININE CLEARANCE IN PREDICTING GLOMERULAR FILTRATION RATE . ESTIMATED GFR I S NOT APPLICABLE FOR DIALYSIS PATIEN TS. Opinion Polls Survey Worker ID Doron HOOD FVancomycin [facility], [id number] 13:28:00 Test Item Value Reference Range Interpretation Comments Vancomycin Rm (test 43.6 ug/mL code = 94538-1) STACY (test code = Reference Range: No STACY) NormalsOperator ID Doron HOOD [facility], [id number] 13:28:00 Test Item Value Reference Range Interpretation Comments Vancomycin Rm (test 43.6 ug/mL code = 68901-7) STACY (test code = Reference Range: No STACY) NormalsOperator ID - ERWIN [facility], [id number] 13:28:00 Test Item Value Reference Range Interpretation Comments Vancomycin Rm (test 43.6 ug/mL code = 74491-7) STACY (test code = Reference Range: No STACY) NormalsOperator ID - ERWIN [facility], [id number] 13:28:00 Test Item Value Reference Range Interpretation Comments Vancomycin Rm (test 43.6 ug/mL code = 84939-2) STACY (test code = Reference Range: No STACY) NormalsOperator ID Doron [facility] City[facility]CIN [facility], [id number] 13:28:00 Test Item Value Reference Range Interpretation Comments VANCOMYCIN RANDOM (BEAKER) (test 43.6 ug/mL code = 523) Reference Range: No NormalsOperator AK Doron HOOD FCALCIUM, [id number] 13:24:00 Test Item Value Reference Range Interpretation Comments CALCIUM IONIZED (BEAKER) (test 1.09 mmol/L 1.12-1.27 L code = 698) PH, BLOOD (BEAKER) (test code = 7.38 1810) CBC W/PLT COUNT & AUTO [id number] 13:14:00 Test Item Value Reference Range Interpretation [...] PERCENT (BEAKER) (test code = 2801) POCT-GLUCOSE [id number] 12:20:00 Test Item Value Reference Range Interpretation Comments POC-GLUCOSE METER 81 mg/dL 70-110 : Notified RN/MD: TESTED (BEAKER) (test code AT [place] [address] [address] = 1538) [place] [address] 30: Opinion Polls Survey Worker/Techni tressa ID = [id number] for Lux (contract), Shola oralia POCT-GLUCOSE [id number] 10:10:00 Test Item Value Reference Range Interpretation Comments POC-GLUCOSE METER 90 mg/dL 70-110 : Notified RN/MD: TESTED (BEAKER) (test code AT [place] [address] [address] = 1538) [place] [address] 30: Opinion Polls Survey Worker/Techni tressa ID = [id number] for Lux (contract), Shola ny RAD, ABDOMEN/KUB, 1 VIEW [id number] 01:44:00For bedside G-tube study. Call radiology for KUB when gastroview, 60 cc syringe, and water for flushing are at the bedside and nursing is ready/Reason for exam:->G-tube studyShould this be performedat the bedside?->Yes [facility] : 1945 Sex: MFINAL REPORT EXAM/TECHNIQUE: Supine [...] on03/31/2021 01:44 AMXR abdomen / KUB 1 [id number] 01:44:00Interface, External Ris In - 03/31/2021 1:47 [...] Signed: Galileo Cuello Verified Date/Time: 03/31/2021 01:44:07 [facility]IC [id number] 00:40:00 Test Item Value Reference Range Interpretation [...] S NOT APPLICABLE FOR DIALYSIS PATIEN TS. Opinion Polls Survey Worker ID - DBPOCT-GLUCOSE [id number] 21:42:00 Test Item Value Reference Range Interpretation Comments POC-GLUCOSE METER 117 mg/dL 70-110 H : TESTED A T [facility] 6720 (BEAKER) (test code [facility], = 1538) [address]: Opinion Polls Survey Worker/Techni tressa ID = [id number] for Kelsie anthony (agency)Marlo POCT-GLUCOSE [id number] 17:39:00 Test Item Value Reference Range Interpretation Comments POC-GLUCOSE METER 140 mg/dL 70-110 H : TESTED A T [facility] 6720 (BEAKER) (test code = [facility], 1538) [address]: Opinion Polls Survey Worker/Techni tressa ID = [id number] for AG UILARJOSE RAD, ABDOMEN/KUB, 1 VIEW [id number] 17:36:00Reason for exam:->peg placementShould this be performed at the bedside?->Yes [facility] : 1945 Sex: MFINAL [...] MDReport Verified Date/Time: 03/30/2021 17:36:33 Reading Location: [facility] C013W Consult Reading Room C METABOLIC [id number] 17:12:00 Test Item Value Reference Range Interpretation [...] S NOT APPLICABLE FOR DIALYSIS PATIEN TS. Opinion Polls Survey Worker ID - DBPOCT-GLUCOSE [id number] 13:04:00 Test Item Value Reference Range Interpretation Comments POC-GLUCOSE METER 101 mg/dL 70-110 : [facility] ([facility]ER[facility] (test code = [place], 1538) [address]: Opinion Polls Survey Worker/Techni tressa ID = [id number] for AG JOSE HELMS U/S, RENAL, [id number] 11:52:00Reason for exam:->akiShould this be performed at the bedside?->Yes [facility] : 1945 Sex: [...] MDReport Verified Date/Time: 03/30/2021 11:52:42 Reading Location: [address] Consult Reading Room US renal [id number] 11:52:00Interface, External Ris In - 03/30/2021 11:54 [...] MDReport Verified Date/Time: 03/30/2021 11:52:42 Reading Location: [facility] C013W Consult Reading Room [facility] METABOLIC [id number] 10:57:00 Test Item Value Reference Range Interpretation [...] S NOT APPLICABLE FOR DIALYSIS PATIEN TS. Opinion Polls Survey Worker ID - [facility] METABOLIC [id number] 05:59:00 Test Item Value Reference Range Interpretation [...] S NOT APPLICABLE FOR DIALYSIS PATIEN TS. Opinion Polls Survey Worker ID - DBCREATINE KINASE (CK)2021-03-30 05:40:00 Test Item Value Reference Range Interpretation Comments CREATINE KINASE TOTAL (BEAKER) (test 43 U/L 29-200 code = 380) Opinion Polls Survey Worker ID - [id number] 05:33:00 Test Item Value Reference Range Interpretation Comments MAGNESIUM (BEAKER) (test code = 1.4 mg/dL 1.6-2.6 L 627) Opinion Polls Survey Worker ID - [id number] 05:33:00 Test Item Value Reference Range Interpretation Comments PHOSPHORUS (BEAKER) (test code = 1.6 mg/dL 2.3-4.7 L 604) Opinion Polls Survey Worker ID - DBHEPATIC FUNCTION [id number] 05:33:00 Test Item Value Reference Range Interpretation [...] (test code = 8 U/L 6-55 347) Opinion Polls Survey Worker ID - DBCREATINE KINASE (CK)2021-03-30 05:33:00 Test Item Value Reference Range Interpretation Comments CREATINE KINASE TOTAL (BEAKER) (test 42 U/L 29-200 code = 380) Opinion Polls Survey Worker ID - DBC-REACTIVE [id number] 05:33:00 Test Item Value Reference Range Interpretation Comments C-REACTIVE PROTEIN (BEAKER) (test 10.11 mg/dL 0.00-0.50 H code = 676) Opinion Polls Survey Worker ID - DBCALCIUM, [id number] 05:19:00 Test Item Value Reference Range Interpretation Comments CALCIUM IONIZED (BEAKER) (test 1.08 mmol/L 1.12-1.27 L code = 698) PH, BLOOD (BEAKER) (test code = 7.38 1810) POCT-GLUCOSE [id number] 05:14:00 Test Item Value Reference Range Interpretation Comments POC-GLUCOSE METER 127 mg/dL 70-110 H : TESTED A T [facility] 6720 (BEAKER) ([facility] [address]: Opinion Polls Survey Worker/Techni tressa ID = [id number] for Kelsie anthony (agency)Marlo CBC W/PLT COUNT & AUTO [id number] 05:03:00 Test Item Value Reference Range Interpretation [...] PERCENT (BEAKER) (test code = 2801) POCT-GLUCOSE [id number] 23:51:00 Test Item Value Reference Range Interpretation Comments POC-GLUCOSE METER 135 mg/dL 70-110 H : TESTED A T [facility] 6720 (BEAKER) (test code [facility], = 1538) [address]: Opinion Polls Survey Worker/Techni tressa ID = [id number] for Kelsie anthony (agency)Marlo Creatinine, random [id number] 22:56:00 Test Item Value Reference Range Interpretation Comments Creatinine, Ur 88.5 mg/dL (test code = 2161-8) STACY (test code = Reference Range: No STACY) NormalsOperator ID - DB [facility], random [id number] 22:56:00 Test Item Value Reference Range Interpretation Comments Sodium Urine (test 80 meq/L code = 2955-3) STACY (test code = Reference Range: No STACY) NormalsOperator ID - DB [facility], random [id number] 22:56:00 Test Item Value Reference Range Interpretation Comments Creatinine, Ur 88.5 mg/dL (test code = 2161-8) STACY (test code = Reference Range: No STACY) NormalsOperator ID - DB [facility], random [id number] 22:56:00 Test Item Value Reference Range Interpretation Comments Sodium Urine (test 80 meq/L code = 2955-3) STACY (test code = Reference Range: No STACY) NormalsOperator ID - DB [facility] CenterCreatinine, random [id number] 22:56:00 Test Item Value Reference Range Interpretation Comments Creatinine, Ur 88.5 mg/dL (test code = 2161-8) STACY (test code = Reference Range: No STACY) NormalsOperator ID - DB [facility], random [id number] 22:56:00 Test Item Value Reference Range Interpretation Comments Sodium Urine (test 80 meq/L code = 2955-3) STACY (test code = Reference Range: No STACY) NormalsOperator ID - DB [facility] CenterCreatinine, random [id number] 22:56:00 Test Item Value Reference Range Interpretation Comments Creatinine, Ur 88.5 mg/dL (test code = 2161-8) STACY (test code = Reference Range: No STACY) NormalsOperator ID - DB [facility], random [id number] 22:56:00 Test Item Value Reference Range Interpretation Comments Sodium Urine (test 80 meq/L code = 2955-3) STACY (test code = Reference Range: No STACY) NormalsOperator ID - DB [facility] CenterCREATININE, RANDOM [id number] 22:56:00 Test Item Value Reference Range Interpretation Comments CREATININE URINE (BEAKER) (test 88.5 mg/dL code = 375) Reference Range: No NormalsOperator ID - DBSODIUM, RANDOM [id number] 22:56:00 Test Item Value Reference Range Interpretation Comments SODIUM URINE (BEAKER) (test code = 80 meq/L 243) Reference Range: No NormalsOperator ID - DBOsmolality, [id number] 22:15:00 Test Item Value Reference Range Interpretation Comments Osmolality Serum (test 344 See_Comment H [Aut omated message] code = 2692-2) The system [employer] generated this result transmitted ref erence range: 275 - 29 5 mOsm/kg. The reference range was not used to int erpret this result as normal/abnormal . Lab Interpretation (test Abnormal code = 72301-1) [facility], [id number] 22:15:00 Test Item Value Reference Range Interpretation Comments Osmolality Serum (test 344 See_Comment H [Aut omated message] code = 2692-2) The system [employer] generated this result transmitted ref erence range: 275 - 29 5 mOsm/kg. The reference range was not used to int erpret this result as normal/abnormal . Lab Interpretation (test Abnormal code = 77675-4) [facility], [id number] 22:15:00 Test Item Value Reference Range Interpretation Comments Osmolality Serum (test 344 See_Comment H [Aut omated message] code = 2692-2) The system [employer] generated this result transmitted ref erence range: 275 - 29 5 mOsm/kg. The reference range was not used to int erpret this result as normal/abnormal . Lab Interpretation (test Abnormal code = 20323-1) [facility], [id number] 22:15:00 Test Item Value Reference Range Interpretation Comments Osmolality Serum (test 344 See_Comment H [Aut omated message] code = 2692-2) The system [employer] generated this result transmitted ref erence range: 275 - 29 5 mOsm/kg. The reference range was not used to int erpret this result as normal/abnormal . Lab Interpretation (test Abnormal code = 34311-0) [facility], [id number] 22:15:00 Test Item Value Reference Range Interpretation Comments OSMOLALITY, SERUM (BEAKER) (test 344 mOsm/kg 275-295 H code = 615) BASIC METABOLIC [id number] 22:15:00 Test Item Value Reference Range Interpretation [...] S NOT APPLICABLE FOR DIALYSIS PATIEN TS. Opinion Polls Survey Worker ID - DBOsmolality, [id number] 22:10:00 Test Item Value Reference Range Interpretation Comments Osmolality, Ur (test code 769 See_Comment [ Automated message] = 2695-5) The system [employer] generated this result transmitted ref erence range: 50-1,200 mOsm/kg mOsm/kg . The reference range was not used to int erpret this result as normal/abnormal . Lab Interpretation (test Normal code = 58637-0) [facility] Center[facility]smolality, [id number] 22:10:00 Test Item Value Reference Range Interpretation Comments Osmolality, Ur (test code 769 See_Comment [ Automated message] = 2695-5) The system [employer] generated this result transmitted ref erence range: 50-1,200 mOsm/kg mOsm/kg . The reference range was not used to int erpret this result as normal/abnormal . Lab Interpretation (test Normal code = 53074-5) [facility] CenterOsmolality, [id number] 22:10:00 Test Item Value Reference Range Interpretation Comments Osmolality, Ur (test code 769 See_Comment [ Automated message] = 2695-5) The system [employer] generated this result transmitted ref erence range: 50-1,200 mOsm/kg mOsm/kg . The reference range was not used to int erpret this result as normal/abnormal . Lab Interpretation (test Normal code = 85728-7) [facility] CenterOsmolaty, [id number] 22:10:00 Test Item Value Reference Range Interpretation Comments Osmolality, Ur (test code 769 See_Comment [ Automated message] = 2695-5) The system [employer] generated this result transmitted ref erence range: 50-1,200 mOsm/kg mOsm/kg . The reference range was not used to int erpret this result as normal/abnormal . Lab Interpretation (test Normal code = 02326-9) [facility] CenterOSMOLALITY, [id number] 22:10:00 Test Item Value Reference Range Interpretation Comments OSMOLALITY URINE 769 mOsm/kg See_Comment [Automated message] (BEAKER) (test code = The sy stem which 614) generated this result transmitted ref erence range: 50-1,200 mOsm/kg. The reference range was not used to int erpret this result as normal/abnormal . Protein, random [id number] 18:44:00 Test Item Value Reference Range Interpretation Comments Protein, Urine (test code = <68 0-14 H 2888-6) STACY (test code = STACY) Opinion Polls Survey Worker ID - DB Lab Interpretation (test Abnormal code = 80510-0) [facility] CenterProtein, random [id number] 18:44:00 Test Item Value Reference Range Interpretation Comments Protein, Urine (test code = <68 0-14 H 2888-6) STACY (test code = STACY) Opinion Polls Survey Worker ID - DB Lab Interpretation (test Abnormal code = 73706-8) [facility] CenterProtein, random [id number] 18:44:00 Test Item Value Reference Range Interpretation Comments Protein, Urine (test code = <68 0-14 H 2888-6) STACY (test code = STACY) Opinion Polls Survey Worker ID - DB Lab Interpretation (test Abnormal code = 88333-8) [facility] CenterProtein, random [id number] 18:44:00 Test Item Value Reference Range Interpretation Comments Protein, Urine (test code = <68 0-14 H 2888-6) STACY (test code = STACY) Opinion Polls Survey Worker ID - DB Lab Interpretation (test Abnormal code = 87137-4) [facility] CenterPROTEIN, RANDOM [id number] 18:44:00 Test Item Value Reference Range Interpretation Comments PROTEIN, URINE (BEAKER) (test code = < mg/dL 0-14 H 1569) Opinion Polls Survey Worker ID - DBCREATININE, RANDOM [id number] 18:22:00 Test Item Value Reference Range Interpretation Comments CREATININE URINE (BEAKER) (test 105.0 mg/dL code = 375) Reference Range: No NormalsOperator ID - DBSODIUM, RANDOM [id number] 18:22:00 Test Item Value Reference Range Interpretation Comments SODIUM URINE (BEAKER) (test code = 47 meq/L 243) Reference Range: No NormalsOperator ID - DBOSMOLALITY, [id number] 18:03:00 Test Item Value Reference Range Interpretation Comments OSMOLALITY URINE 662 mOsm/kg See_Comment [Automated message] (BEAKER) (test code = The sy stem which 614) generated this result transmitted ref erence range: 50-1,200 mOsm/kg. The reference range was not used to int erpret this result as normal/abnormal . POCT-GLUCOSE [id number] 17:36:00 Test Item Value Reference Range Interpretation Comments POC-GLUCOSE METER 146 mg/dL 70-110 H : TESTED A T [facility] 6720 (BEAKER) (test code = [place], 1538) [address]: Opinion Polls Survey Worker/Techni tressa ID = [id number] for Analisa monroy (contract), Yuli xis BASIC METABOLIC [id number] 17:08:00 Test Item Value Reference Range Interpretation [...] S NOT APPLICABLE FOR DIALYSIS PATIEN TS. Opinion Polls Survey Worker ID - AAHAMIDValproic acid level, [id number] 17:07:00 Test Item Value Reference Range Interpretation Comments Valproic Acid, Total <2 50-100 L (test code = 4086-5) STACY (test code = STACY) Therapeutic range for some clinical conditions may be >100 ug/mLOperator ID - AAHAMID Lab Interpretation (test Abnormal code = 88593-3) [facility] CenterPhenytoin level, [id number] 17:07:00 Test Item Value Reference Range Interpretation Comments Phenytoin (test code = <0.5 10-20 L 3968-5) STACY (test code = STACY) Opinion Polls Survey Worker ID - AAHAMID Lab Interpretation (test Abnormal code = 89067-5) [facility] CenterValproic acid level, [id number] 17:07:00 Test Item Value Reference Range Interpretation Comments Valproic Acid, Total <2 50-100 L (test code = 4086-5) STACY (test code = STACY) Therapeutic range for some clinical conditions may be >100 ug/mLOperator ID - AAHAMID Lab Interpretation (test Abnormal code = 81492-0) [facility] CenterPhenytoin level, [id number] 17:07:00 Test Item Value Reference Range Interpretation Comments Phenytoin (test code = <0.5 10.0-20.0 L 3968-5) STACY (test code = STACY) Opinion Polls Survey Worker ID - AAHAMID Lab Interpretation (test Abnormal code = 79496-4) [facility] CenterValproic acid level, [id number] 17:07:00 Test Item Value Reference Range Interpretation Comments Valproic Acid, Total <2 50-100 L (test code = 4086-5) STACY (test code = STACY) Therapeutic range for some clinical conditions may be >100 ug/mLOperator ID - AAHAMID Lab Interpretation (test Abnormal code = 96193-5) [facility] CenterPhenytoin level, [id number] 17:07:00 Test Item Value Reference Range Interpretation Comments Phenytoin (test code = <0.5 10.0-20.0 L 3968-5) STACY (test code = STACY) Opinion Polls Survey Worker ID - AAHAMID Lab Interpretation (test Abnormal code = 81404-2) [facility] CenterValproic acid level, [id number] 17:07:00 Test Item Value Reference Range Interpretation Comments Valproic Acid, Total <2 50-100 L (test code = 4086-5) STACY (test code = STACY) Therapeutic range for some clinical conditions may be >100 ug/mLOperator ID - AAHAMID Lab Interpretation (test Abnormal code = 16297-9) [facility] CenterPhenytoin level, [id number] 17:07:00 Test Item Value Reference Range Interpretation Comments Phenytoin (test code = <0.5 10.0-20.0 L 3968-5) STACY (test code = STACY) Opinion Polls Survey Worker ID - AAHAMID Lab Interpretation (test Abnormal code = 19114-3) [facility] CenterVALPROIC ACID LEVEL, [id number] 17:07:00 Test Item Value Reference Range Interpretation Comments VALPROIC ACID TOTAL (BEAKER) (test < ug/mL 50-100 L code = 924) Therapeutic range for some clinical conditions may be >100 ug/mLOperator ID - AAHAMIDPHENYTOIN LEVEL, [id number] 17:07:00 Test Item Value Reference Range Interpretation Comments PHENYTOIN (DILANTIN) (BEAKER) (test < ug/mL 10.0-20.0 L code = 605) Opinion Polls Survey Worker ID - AAHAMIDBASIC METABOLIC [id number] 13:35:00 Test Item Value Reference Range Interpretation [...] S NOT APPLICABLE FOR DIALYSIS PATIEN TS. Opinion Polls Survey Worker ID - AAHAMIDPOCT-GLUCOSE [id number] 12:55:00 Test Item Value Reference Range Interpretation Comments POC-GLUCOSE METER 113 mg/dL 70-110 H : TESTED A T [facility] 6720 (BEAKER) (test code = [place], 1538) [address]: Opinion Polls Survey Worker/Techni tressa ID = [id number] for Anlaisa monroy (contract), Yuli lisa BASIC METABOLIC [id number] 10:00:00 Test Item Value Reference Range Interpretation [...] S NOT APPLICABLE FOR DIALYSIS PATIEN TS. Opinion Polls Survey Worker ID - AAHAMIDB-type Natriuretic Factor (BNP)2021-03-29 09:49:00 Test Item Value Reference Range Interpretation Comments BNP (test code = 64646-6) 315 pg/mL 0-100 H STACY (test code = STACY) Opinion Polls Survey Worker ID - AASTEPHANYID Lab Interpretation (test Abnormal code = 98571-4) [facility] CenterB-[facility] Nat[facility] Factor (BNP)2021-03-29 09:49:00 Test Item Value Reference Range Interpretation Comments BNP (test code = 02396-6) 315 pg/mL 0-100 H STACY (test code = STACY) Opinion Polls Survey Worker ID - AAHAMID Lab Interpretation (test Abnormal code = 48147-5) [facility] CenterB-[facility] Nat[facility] Factor (BNP)2021-03-29 09:49:00 Test Item Value Reference Range Interpretation Comments BNP (test code = 16949-5) 315 pg/mL 0-100 H STACY (test code = STACY) Opinion Polls Survey Worker ID - AAHAMID Lab Interpretation (test Abnormal code = 71804-9) [facility] Nat[facility] Factor (BNP)2021-03-29 09:49:00 Test Item Value Reference Range Interpretation Comments BNP (test code = 58261-5) 315 pg/mL 0-100 H STACY (test code = STACY) Opinion Polls Survey Worker ID - AAHAMID Lab Interpretation (test Abnormal code = 89584-1) [facility] CenterB-TYPE NATRIURETIC FACTOR (BNP)2021-03-29 09:49:00 Test Item Value Reference Range Interpretation Comments B-TYPE NATRIURETIC PEPTIDE (BEAKER) 315 pg/mL 0-100 H (test code = 700) Opinion Polls Survey Worker ID - AAPRASHANTHVANCOMYCIN LEVEL, [id number] 09:45:00 Test Item Value Reference Range Interpretation Comments VANCOMYCIN RANDOM (BEAKER) (test 6.7 ug/mL code = 523) Reference Range: No NormalsOperator ID - AAHAMIDManual Igwqvmukgvme7920-75-41 07:17:00 Test Item Value Reference Range Interpretation [...] = 3438) STACY (test code = STACY) Opinion Polls Survey Worker ID - Daisy Franklin comments: Slide comments: Lab Interpretation Abnormal (test code = 90462-6) [facility] [id number] 07:17:00 Test Item Value Reference Range Interpretation [...] = 3438) STACY (test code = STACY) Opinion Polls Survey Worker ID - Daisy Franklin comments: Slide comments: Lab Interpretation Abnormal (test code = 65110-4) [facility] Nkihvjxqiqnj4914-90-69 07:17:00 Test Item Value Reference Range Interpretation [...] = 3438) STACY (test code = STACY) Opinion Polls Survey Worker ID - Daisy Franklin comments: Slide comments: Lab Interpretation Abnormal (test code = 14231-2) [facility] CenterManual [id number] 07:17:00 Test Item Value Reference Range Interpretation [...] = 3438) STACY (test code = STACY) Opinion Polls Survey Worker ID - Daisy Franklin comments: Slide comments: Lab Interpretation Abnormal (test code = 83958-8) [facility] W/PLT COUNT & AUTO [id number] 07:17:00 Test Item Value Reference Range Interpretation [...] CONCENTRATION Adequate (CELLAVISION)(BEAKER) (test code = 3438) Opinion Polls Survey Worker ID - Daisy Franklin comments: Slide comments:TSH/Free T4 If [id number] 06:43:00 Test Item Value Reference Range Interpretation Comments TSH (test code = 1.408 See_Comment [Automated 80593-6) message] The system which generated this result transmit saulo reference range : 0.350 - 4.940 uIU/mL. The reference range was not used to interpret this result as normal/abnormal . STACY (test code = STACY) Opinion Polls Survey Worker ID - AME M Lab Interpretation Normal (test code = 76571-3) [facility] [id number] 06:43:00 Test Item Value Reference Range Interpretation Comments TSH (test code = 1.408 See_Comment [Automated 99620-4) message] The system which generated this result transmit saulo reference range : 0.350 - 4.940 uIU/mL. The reference range was not used to interpret this result as normal/abnormal . STACY (test code = STACY) Opinion Polls Survey Worker ID - AME M Lab Interpretation Normal (test code = 06161-2) [facility] [id number] 06:43:00 Test Item Value Reference Range Interpretation Comments TSH (test code = 1.408 See_Comment [Automated 80147-5) message] The system which generated this result transmit saulo reference range : 0.350 - 4.940 uIU/mL. The reference range was not used to interpret this result as normal/abnormal . STACY (test code = STACY) Opinion Polls Survey Worker ID - AME White Lab Interpretation Normal (test code = 33634-0) [facility]/Free T4 If [id number] 06:43:00 Test Item Value Reference Range Interpretation Comments TSH (test code = 1.408 See_Comment [Automated 17711-6) message] The system which generated this result transmit saulo reference range : 0.350 - 4.940 uIU/mL. The reference range was not used to interpret this result as normal/abnormal . STACY (test code = STACY) Opinion Polls Survey Worker ID - AME White Lab Interpretation Normal (test code = 82357-5) [facility]/FREE T4 IF [id number] 06:43:00 Test Item Value Reference Range Interpretation Comments THYROID STIMULATING HORMONE 1.408 uIU/mL 0.350-4.940 (BEAKER) (test code = 772) [employer] Survey Worker ID - AME MBASIC METABOLIC [id number] 06:03:00 Test Item Value Reference Range Interpretation [...] S NOT APPLICABLE FOR DIALYSIS PATIEN TS. Opinion Polls Survey Worker ID - LISAURINALYSIS W/ REFLEX URINE [id number] 03:52:00 Test Item Value Reference Range Interpretation [...] = 1521) SOURCE(BEAKER) (test code = 2795) Opinion Polls Survey Worker ID - [auto]Opinion Polls Survey Worker ID - techLactic acid, [id number] 23:23:00 Test Item Value Reference Range Interpretation Comments Lactate, Venous (test code = 1.97 mmol/L 0.5-2.2 2872) STACY (test code = STACY) Opinion Polls Survey Worker ID - DB Lab Interpretation (test Normal code = 92878-5) [facility], [id number] 23:23:00 Test Item Value Reference Range Interpretation Comments Lactate, Venous (test code = 1.97 mmol/L 0.50-2.20 2872) STACY (test code = STACY) Opinion Polls Survey Worker ID - DB Lab Interpretation (test Normal code = 59003-9) [facility], [id number] 23:23:00 Test Item Value Reference Range Interpretation Comments Lactate, Venous (test code = 1.97 mmol/L 0.50-2.20 2872) STACY (test code = STACY) Opinion Polls Survey Worker ID - DB Lab Interpretation (test Normal code = 13853-0) [facility], [id number] 23:23:00 Test Item Value Reference Range Interpretation Comments Lactate, Venous (test code = 1.97 mmol/L 0.50-2.20 2872) STACY (test code = STACY) Opinion Polls Survey Worker ID - DB Lab Interpretation (test Normal code = 19366-4) [facility] [id number] 23:23:00 Test Item Value Reference Range Interpretation Comments LACTATE BLOOD VENOUS (2) (BEAKER) 1.97 mmol/L 0.50-2.20 (test code = 2872) Opinion Polls Survey Worker ID - [id number] 23:21:00 Test Item Value Reference Range Interpretation [...] exclusion of thrombosis is within 95-100% range. [id number] 23:19:00 Test Item Value Reference Interpretation Comments [...] PTT (test code = 35.1 See_Comment [Automated 16866-7) message] The system which generated this result [...] valves. Lab Interpretation Abnormal (test code = 42962-5) [facility][id number] 23:19:00 Test Item Value Reference Interpretation Comments Range Protime (test code = 17.6 See_Comment H [Autom ated 5902-2) message] The system which generated this result transmitted reference range : 11.9 - 14.2 seconds. The reference range was not used to interpret this result as normal/abnormal . INR (test code = 1.47 See_Comment [Automated 4411-6) message] The system which generated this result transmitted reference range : <=5.90. The reference range was not used to interpret this result as normal/abnormal . PTT (test code = 35.1 See_Comment [Automated 69949-8) message] The system which generated this result [...] valves. Lab Interpretation Abnormal (test code = 57403-4) [facility][id number] 23:19:00 Test Item Value Reference Interpretation Comments [...] PTT (test code = 35.1 See_Comment [Automated 88733-7) message] The system which generated this result [...] valves. Lab Interpretation Abnormal (test code = 88003-5) [facility][id number] 23:19:00 Test Item Value Reference Interpretation Comments [...] PTT (test code = 35.1 See_Comment [Automated 80196-4) message] The system which generated this result [...] valves. Lab Interpretation Abnormal (test code = 98728-0) [facility][id number] 23:19:00 Test Item Value Reference Range Interpretation [...] for patients with mechanical heart valves.COMPREHENSIVE METABOLIC [id number] 23:14:00 Test Item Value Reference Range Interpretation [...] S NOT APPLICABLE FOR DIALYSIS PATIEN TS. Opinion Polls Survey Worker ID - DBBlood gas, [id number] 23:12:00 Test Item Value Reference Range Interpretation Comments pH, Arterial (test code 7.52 7.35-7.45 H = 2744-1) pCO2, Arterial (test 28 See_Comment L [Autom ated message] code = 2019-) The system [employer] generated this result transmit saulo reference range : 35 - 45 mm Hg. The reference range was not used to interpret this result as normal/abnormal . pO2, Arterial (test 186 See_Comment H [Automa saulo message] code = 2703-7) The system [employer] generated this result transmit saulo reference range [...] 44 Lab Interpretation Abnormal (test code = 60973-1) [facility] CenterBlood [facility], [id number] 23:12:00 Test Item Value Reference Range Interpretation Comments pH, Arterial (test code 7.52 7.35-7.45 H = 2744-1) pCO2, Arterial (test 28 See_Comment L [Autom ated message] code = 2019-) The system [employer] generated this result transmit saulo reference range : 35 - 45 mm Hg. The reference range was not used to interpret this result as normal/abnormal . pO2, Arterial (test 186 See_Comment H [Automa saulo message] code = 2703-7) The system [employer] generated this result transmit saulo reference range [...] 44 Lab Interpretation Abnormal (test code = 25723-7) [facility] Center[facility], [id number] 23:12:00 Test Item Value Reference Range Interpretation Comments pH, Arterial (test code 7.52 7.35-7.45 H = 2744-1) pCO2, Arterial (test 28 See_Comment L [Autom ated message] code = 2019-8) The system [employer] generated this result transmit saulo reference range : 35 - 45 mm Hg. The reference range was not used to interpret this result as normal/abnormal . pO2, Arterial (test 186 See_Comment H [Automa saulo message] code = 2703-7) The system [employer] generated this result transmit saulo reference range [...] 44 Lab Interpretation Abnormal (test code = 12574-1) [facility], [id number] 23:12:00 Test Item Value Reference Range Interpretation Comments pH, Arterial (test code 7.52 7.35-7.45 H = 2744-1) pCO2, Arterial (test 28 See_Comment L [Autom ated message] code = 2019-8) The system [employer] generated this result transmit saulo reference range : 35 - 45 mm Hg. The reference range was not used to interpret this result as normal/abnormal . pO2, Arterial (test 186 See_Comment H [Automa saulo message] code = 2703-7) The system [facility] generated this result transmit saulo reference [...] 44 Lab Interpretation Abnormal (test code = 78845-9) [facility] CenterBLOOD GAS, [id number] 23:12:00 Test Item Value Reference Range Interpretation [...] (BEAKER) (test code = 1819) 44.0 CALCIUM, [id number] 23:12:00 Test Item Value Reference Range Interpretation Comments CALCIUM IONIZED (BEAKER) (test 1.08 mmol/L 1.12-1.27 L code = 698) PH, BLOOD (BEAKER) (test code = 7.51 1810) [id number] 23:10:00 Test Item Value Reference Range Interpretation Comments MAGNESIUM (BEAKER) 1.8 mg/dL 1.6-2.6 Specimen slightly (test code = 627) hemolyzed Opinion Polls Survey Worker ID - [id number] 23:10:00 Test Item Value Reference Range Interpretation Comments PHOSPHORUS (BEAKER) 2.8 mg/dL 2.3-4.7 Specimen slightly (test code = 604) hemolyzed Opinion Polls Survey Worker ID - DBCREATINE KINASE (CK)2021-03-28 23:10:00 Test Item Value Reference Range Interpretation Comments CREATINE KINASE TOTAL (BEAKER) (test 23 U/L 29-200 L code = 380) Opinion Polls Survey Worker ID - DBC-REACTIVE [id number] 23:10:00 Test Item Value Reference Range Interpretation Comments C-REACTIVE PROTEIN (BEAKER) (test 14.35 mg/dL 0.00-0.50 H code = 676) Opinion Polls Survey Worker ID - DBCBC (Hemogram only)2021-03-28 23:08:00 Test Item Value Reference Range Interpretation Comments WBC (test code = 6690-2) 11.6 See_Comment H [A utomated message] The system [employer] generated this result transmitted ref erence range: 3.5 - 10 .5 K/L. The refe rence range was not u sed to interpret this result as normal/abnor mal. RBC (test code = 789-8) 3.69 See_Comment L [Au tomated message] The system [employer] generated this result transmitted ref erence range: 4.63 - 6 .08 M/L. The refe rence range was not u sed to interpret this result as normal/abnor mal. MCHC (test code = 786-4) 29.6 See_Comment L [A utomated message] The system [employer] generated this result transmitted ref erence range: [...] code = 331 See_Comment [Aut omated message] 647-3) The system [employer] generated this result transmitted ref erence range: 150 - 45 0 K/CU MM. The referen ce range was not u sed to interpret this result as normal/abnor mal. MPV (test code = 10.5 fL 9.4-12.4 46877-1) nRBC (test code = 413) 0 See_Comment [Aut omated message] The system [employer] generated this result transmitted ref erence range: 0 - 0 /1 00 WBC. The refere nce range was not u sed to interpret this result as normal/abnor mal. Lab Interpretation (test Abnormal code = 85271-7) [facility] (Hemogram only)2021-03-28 23:08:00 Test Item Value Reference Range Interpretation Comments WBC (test code = 6690-2) 11.6 See_Comment H [A utomated message] The system [employer] generated this result transmitted ref erence range: 3.5 - 10 .5 K/L. The refe rence range was not u sed to interpret this result as normal/abnor mal. RBC (test code = 789-8) 3.69 See_Comment L [Au tomated message] The system [employer] generated this result transmitted ref erence range: 4.63 - 6 .08 M/L. The refe rence range was not u sed to interpret this result as normal/abnor mal. MCHC (test code = 786-4) 29.6 See_Comment L [A utomated message] The system [employer] generated this result transmitted ref erence range: [...] code = 331 See_Comment [Aut omated message] 377-3) The system [employer] generated this result transmitted ref erence range: 150 - 45 0 K/CU MM. The referen ce range was not u sed to interpret this result as normal/abnor mal. MPV (test code = 10.5 fL 9.4-12.4 60476-9) nRBC (test code = 413) 0 See_Comment [Aut omated message] The system [employer] generated this result transmitted ref erence range: 0 - 0 /1 00 WBC. The refere nce range was not u sed to interpret this result as normal/abnor mal. Lab Interpretation (test Abnormal code = 44977-8) [facility] (Hemogram only)2021-03-28 23:08:00 Test Item Value Reference Range Interpretation Comments WBC (test code = 6690-2) 11.6 See_Comment H [A utomated message] The system [employer] generated this result transmitted ref erence range: 3.5 - 10 .5 K/L. The refe rence range was not u sed to interpret this result as normal/abnor mal. RBC (test code = 789-8) 3.69 See_Comment L [Au tomated message] The system [employer] generated this result transmitted ref erence range: 4.63 - 6 .08 M/L. The refe rence range was not u sed to interpret this result as normal/abnor mal. MCHC (test code = 786-4) 29.6 See_Comment L [A utomated message] The system [employer] generated this result transmitted ref erence range: [...] code = 331 See_Comment [Aut omated message] 307-3) The system [employer] generated this result transmitted ref erence range: 150 - 45 0 K/CU MM. The referen ce range was not u sed to interpret this result as normal/abnor mal. MPV (test code = 10.5 fL 9.4-12.4 75139-7) nRBC (test code = 413) 0 See_Comment [Aut omated message] The system [employer] generated this result transmitted ref erence range: 0 - 0 /1 00 WBC. The refere nce range was not u sed to interpret this result as normal/abnor mal. Lab Interpretation (test Abnormal code = 90661-5) [facility] (Hemogram only)2021-03-28 23:08:00 Test Item Value Reference Range Interpretation Comments WBC (test code = 6690-2) 11.6 See_Comment H [A utomated message] The system [employer] generated this result transmitted ref erence range: 3.5 - 10 .5 K/L. The refe rence range was not u sed to interpret this result as normal/abnor mal. RBC (test code = 789-8) 3.69 See_Comment L [Au tomated message] The system [employer] generated this result transmitted ref erence range: 4.63 - 6 .08 M/L. The refe rence range was not u sed to interpret this result as normal/abnor mal. MCHC (test code = 786-4) 29.6 See_Comment L [A utomated message] The system [employer] generated this result transmitted ref erence range: [...] code = 331 See_Comment [Aut omated message] 577-3) The system [employer] generated this result transmitted ref erence range: 150 - 45 0 K/CU MM. The referen ce range was not u sed to interpret this result as normal/abnor mal. MPV (test code = 10.5 fL 9.4-12.4 21453-5) nRBC (test code = 413) 0 See_Comment [Aut omated message] The system [employer] generated this result transmitted ref erence range: 0 - 0 /1 00 WBC. The refere nce range was not u sed to interpret this result as normal/abnor mal. Lab Interpretation (test Abnormal code = 31559-8) [facility] (HEMOGRAM ONLY)2021-03-28 23:08:00 Test Item Value [...] code = 413) RAD, ABDOMEN/KUB, 1 VIEW [id number] 22:32:00Reason for exam:->PEG tubeReason for exam:->Distended [facility] : 1945 Sex: MFINAL [...] MDReport Verified Date/Time: 03/28/2021 22:32:51 Reading Location: [address] ConsultReading Room RAD, CHEST, 1 VIEW, NON [id number] 22:25:00Reason for exam:->COVID PNA [facility] : 1945 Sex: MFINAL [...] 22:25:25 XR chest 1 view portable / [id number] 22:25:00Interface, External Ris In - 03/28/2021 10:27 [...] by: SASHA WONG MD on 03/28/2021 10:25 [facility]2021-04-14 10:13:00 Test Item Value Reference Range Interpretation Comments AMMONIA (test code = AMM) 93 umol/L 11-32 H
[2021-06-25] MEDS ORDERED: ACETAMINOPHEN 650MG/RECT SUPP PR ONE ×2 (03:29→05:53)
[2021-06-25] MEDS ORDERED: Meropenem 1000 MG/VIAL IV ONE (03:39)
[2021-06-25] MEDS ORDERED: NA CHLORIDE 0.9% 1,000 ML ONE ×2 (03:40→12:51)
[2021-06-25] MEDS ORDERED: NA CHLORIDE 0.9% 100 ML ONE (03:40)
[2021-06-25 03:53] LABS: Urine Blood 3+ (Negative); Urine Glucose Negative (Negative); Urine Protein 3+ (Negative); Urine pH 8.5 (5.0-7.0)
[2021-06-25 04:44] LABS: Absolute Lymphocytes (CBC) 0.2 K/uL (0.7-4.9); Basophils % 0.1 % (0-1.3); Hematocrit 41.6 % (39.6-49.0); Lymphocytes % 2.1 % (15.3-44.8); MPV 8.5 fL (7.6-11.3); RBC Red Blood Cell Count 4.12 M/uL (4.33-5.43)
[2021-06-25 04:48] LABS: Protime INR 1.39
[2021-06-25 04:49] LABS: Urine Bacteria >50 /HPF (NONE SEEN); Urine Triple Phosphate Crystal MODERATE (NONE SEEN)
[2021-06-25 04:50] LABS: Urine RBC <5 /HPF (NONE SEEN)
[2021-06-25 05:18] LABS: Albumin 1.7 g/dL (3.4-5.0); Bilirubin Direct 0.2 mg/dL (0-0.2); Bilirubin Total 0.3 mg/dL (0.2-1.0); Potassium 4.2 mmol/L (3.5-5.1); Protein, Total 6.9 g/dL (6.4-8.2); Troponin (Emerg Dept Use Only) 0.03 ng/mL (0.0-0.045)
--- NOTE | 2021-06-25 05:22 | P.HP ---
Certification for Inpatient Patient admitted to: Inpatient With expected LOS: >2 Midnights Patient will require the following post-hospital care: None Practitioner: I am a practitioner with admitting privileges, knowledge of patient current condition, hospital course, and medical plan of care. Services: Services provided to patient in accordance with Admission requirements found in Title 42 Section 412.3 of the Code of Federal Regulations <Sivakumar Paniagua - Last Filed: 06/25/21 05:14> Patient History Date of Service: 06/25/21 Primary Care Provider: [facility] doctor Reason for admission: Sepsis, UTI History of Present Illness: 76-year-old male with history of Alzheimer's dementia, atrial fibrillation on chronic anticoagulation therapy, hypertension, seizure disorder, bipolar disorder, dysphagia, history of urinary tract infections with decubitus ulcerations presents emergency department for fever, increasing altered mental status and suspected urinary tract infection from assisted. [facility] staff reported to EMS that patient was noted to have fever and that there appeared to be sediment in his urine, patient with history of urinary tract infections, patient was transported to the emergency department for evaluation. Patient was evaluated in the emergency department labs were significant for white blood cell count 7.4 hemoglobin been 13.3 hematocrit 41.6 MCV 100.9 lactic acid 3.8 urinalysis with 3+ leukoesterase nitrite positive microscopic analysis with greater than 50 bacteria too numerous to count white blood cell count, urine appears to be grossly dirty with sediment present as well. Patient was started on meropenem given history of ESBL UTI. ED provider wishes to admit for further evaluation and management of sepsis, UTI. 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; cervicalgia; Chronic pain; constipation -: Atrial Fib; frequent falls; osteoarthritis -: Bronchitis; Hyperlipidemia; Bipolar disorder; encephalopathy; Diverticuliti -: Hypertension; Hypothyroidism; Seizures; Depression -: DEPRESSION -: DIVERTICULITIS -: CONSTIPATION -: MUSCLE WASTING/ATROPHY -: ALLERGIC RHINITIS -: NON-DISPLACED FRACTURE OF THE LEFT HUMERUS -: COGNITIVE COMMUNICATION DEFICIT -: OSTEOPOROSIS Past Surgical History: Unable to obtain Psychosocial/ Personal History: [facility] resident - Family History pARENTS Notes: PT IS CONFUSED; UNABLE TO RECALL/STATE - Social History Alcohol use: No CD- Drugs: No Caffeine use: No Place of Residence: Intermediate <Sivakumar Paniagua - Last Filed: 06/25/21 05:14> Date of Service: 06/25/21 <margarito leon - Last Filed: 06/25/21 20:03> Allergies Penicillins Allergy (Verified 11/26/20 00:08) Anaphylaxis rabies bat serum Allergy (Uncoded 11/26/20 00:08) Rash Home Medications: Divalproex Sodium [Depakote ER] 2 tab PO BEDTIME 01/22/15 Donepezil [Aricept*] 10 mg PO BEDTIME 03/08/18 PHENYTOIN ER Cap [Dilantin ER Cap*] 2 cap PO BID 03/08/18 Amlodipine [Norvasc*] 2.5 mg PO DAILY 11/26/20 Calcium Carbonate/Vitamin D3 [Calcium 600-Vit D3 400 Tablet] 1 each PO DAILY 11/26/20 Divalproex ER [Depakote *ER] 250 mg PO DAILY 11/26/20 Fluoxetine HCl [Prozac] 40 mg PO DAILY 11/26/20 Furosemide [Lasix*] 40 mg PO BIDL 11/26/20 Gabapentin [Neurontin*] 100 mg PO TID 11/26/20 Hydrocodone 5/APAP 325 [Brackney 5/325*] 1 tab PO Q8HP PRN 11/26/20 Hydrocortisone Cream [Hydrocortisone 1% Cream*] 1 appl TOP BID 11/26/20 Levothyroxine Sodium [Synthroid] 150 mcg PO [id number] 11/26/20 Lidocaine [Aspercreme Lidocaine] 1 each TP DAILY 11/26/20 Metoprolol Tartrate 25 mg PO BID 11/26/20 Nitroglycerin [Nitrostat*] 0.4 mg SL PRN PRN 11/26/20 Omeprazole Magnesium [Acid Fuel Dock Attendant] 20 mg PO DAILY 11/26/20 Polyethylene Glycol 3350 [Miralax] 17 gm PO DAILY 11/26/20 Trazodone HCl 100 mg PO BEDTIME 11/26/20 hydrOXYzine HCL [Atarax*] 25 mg PO BIDP PRN 11/26/20 Apixaban [Eliquis] 2.5 mg PO BID 12/15/20 Review of Systems is unable to be obtained <Sivakumar Paniagua - Last Filed: 06/25/21 05:14> Physical Examination - Physical Exam General: Oriented x1, Demented, Confused, Obese HEENT: Atraumatic Neck: Supple Respiratory: Diminished Cardiovascular: Irregular heart rate/rhythm (A. fib RVR rate between 110 and 130), Systolic murmur Gastrointestinal: Normal bowel sounds, Soft and benign Musculoskeletal: No contractures, No erythema, No tenderness Integumentary: Pressure ulcer (Heel, sacral decubitus) Neurological: Normal speech, Abnormal tone, Dementia - Studies Laboratory Data (last 24 hrs) 06/25/21 04:23: PT 16.0 H, INR 1.39, APTT 27.4 06/25/21 04:23: WBC 7.40, Hgb 13.3 L, Hct 41.6, Plt Count 292 <Sivakumar Paniagua - Last Filed: 06/25/21 05:14> - Studies Laboratory Data (last 24 hrs) 06/25/21 04:23: PT 16.0 H, INR 1.39, APTT 27.4 06/25/21 04:23: WBC 7.40, Hgb 13.3 L, Hct 41.6, Plt Count 292 06/25/21 04:23: Sodium 151 H, Potassium 4.2, BUN 69 H, Creatinine 4.28 H, Glucose 64 L, Total Bilirubin 0.3, AST 10 L, ALT 9 L, Alkaline Phosphatase 108, Lipase 32 L <margarito leon - Last Filed: 06/25/21 20:03> Assessment and Plan - Plan Assessment: Severe sepsis, urinary tract infection complicated with history of chronic indwelling Gray catheter secondary to urinary retention Acute renal failure Dehydration, hypernatremia Atrial fibrillation with rapid ventricular response on chronic anticoagulation therapy Alzheimer's dementia Hypertension Hypothyroidism Seizure disorder Depression/BPD Decubitus ulcerations to right heel, sacral area Plan: Severe sepsis, urinary tract infection complicated with history of chronic indwelling Gray catheter secondary to urinary retention: Patient with history of ESBL infection, bacteremia we'll continue meropenem. Infectious disease consulted for additional assistance. Midline placed in the emergency department. Patient receiving IV fluid bolus currently in the emergency department blood pressure appears to be responding at this time. Acute renal failure: Likely related to sepsis, dehydration. Nephrology consulted will obtain renal ultrasound continue with IV fluids. Will obtain CPK, uric acid level. Dehydration, hypernatremia: Continue IV fluids with D5W. Atrial fibrillation with rapid ventricular response on chronic anticoagulation therapy: Have continued patient's Eliquis 2.5 mg p.o. twice daily, will continue other medications once verified. Alzheimer's dementia: Obtain and continue medications, aspiration precautions. Hypertension: Obtain and continue medication as appropriate Hypothyroidism: Obtain and continue medication as appropriate Seizure disorder: Obtain and continue medication as appropriate we'll check Depakote, Dilantin levels. Seizure precautions Depression/BPD: Obtain continue medications as appropriate Decubitus ulcerations to right heel, sacral area: Wound care consulted, infectious disease consulted DVT PPX: Lovenox Code status: Full Discharge Plan: Intermediate Plan to discharge in: Greater than 2 days - Advance Directives Does patient have a Living Will: Yes Does patient have a Durable POA for Healthcare: No - Code Status/Comfort Care Code Status Assessed: Yes (Full code) Critical Care: No Time Spent Managing Pts Care (In Minutes): 55 <Sivakumar Paniagua - Last Filed: 06/25/21 05:14> Critical Care: Yes (Critical Care time spent managing patient's septic shock:38 minutes.) <margarito leon - Last Filed: 06/25/21 20:03>
[2021-06-25] MEDS ORDERED: D5W 1,000 ML IV ONE (05:27)
[2021-06-25] MEDS ORDERED: D50W 25 GM/50 ML SYRINGE IV ONE (05:29)
--- NOTE | 2021-06-25 05:44 | ER ---
Nurse's Notes [facility] Name: Zbigniew Mitchell Age: 76 yrs Sex: Male : 1945 Arrival Date: 06/25/2021 Time: 03:17 Bed 4 Private MD: Diagnosis: Severe sepsis with septic shock;UTI/ Urinary tract infection, site not specified;Acute kidney failure, unspecified;Hyperosmolality and hypernatremia Presentation: 06/25 03:38 Chief complaint: EMS states: [facility] staff noticed sediment in pt's hankins, unable sm5 to get a UA sample. Coronavirus screen: Client denies travel out of the [place] in the last 14 days. Ebola Screen: No symptoms or risks identified at this time. Initial Sepsis Screen: Does the patient meet any 2 criteria? RR > 20 per min. Temp <36.0*C (96.8*F)) or > 38.3*C (100.9*F). HR > 90 bpm. Yes Does the patient have a suspected source of infection? Yes: Catheter related infection (Hankins/dialysis/PICC/central line). Risk Assessment: Do you want to hurt yourself or someone else? Unable to obtain. Onset of symptoms was June 24, 2021. 03:38 Method Of Arrival: EMS: [place] [id number] 03:38 Acuity: ANDRE 2 5 Triage Assessment: 03:43 General: Appears uncomfortable, Behavior is agitated. Pain: Unable to use pain scale. 5 Neuro: Level of Consciousness is awake, Oriented to person. Cardiovascular: Rhythm is irregular. Cardiovascular:. Respiratory: Airway is patent Trachea midline Respiratory effort is labored. : Hankins in place Penile discharge is yellow, bloody. 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 Historical: - Allergies: 03:48 PENICILLINS; 5 - Home Meds: 03:48 megestrol 400 mg/10 mL (10 mL) Oral susp once daily [Active]; Dilantin 100 mg Oral 100 sm5 mg every 8 hours for epilepsy [Active]; Eliquis 2.5 mg oral tab 2 times per day [Active]; famotidine 20 mg Oral tab every 12 hours [Active]; furosemide 20 mg Oral tab 1 tab once daily [Active]; hydroxyzine HCl 25 mg Oral tab 1 tab as needed for pruritus of skin [Active]; Neurontin 100 mg Oral cap 3 times per day [Active]; nitroglycerin 0.4 mg Oral cpER PRN [Active]; Prozac 40 mg Oral cap 1 cap once daily [Active]; Synthroid 150 mcg Oral tab 1 tab once daily [Active]; valproic acid 250 mg Oral cap twice daily [Active]; mupirocin 2 % Topical oint twice daily [Active]; amlodipine 2.5 mg tab 1 tab twice a day [Active]; folic acid 1 mg Oral tab 1 tab once daily [Active]; - PMHx: 03:48 Atrial Fib; Bipolar disorder; Seizures; Depression; 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 It has been more than one year since last vaccine. - Social history:: Smoking status: unknown. - Code Status:: Full code. - History obtained from: EMS. Screenin:45 Abuse screen: unable to obtain from pt. Nutritional screening: On mechanical soft/thin sm5 liquids. Tuberculosis screening: No symptoms or risk factors identified. Fall Risk No fall in past 12 months (0 pts). Secondary diagnosis (15 points) impaired mobility, IV access (20 points). Ambulatory Aid- None/Bed Rest/Nurse Assist (0 pts). Gait- Normal/Bed Rest/Wheelchair (0 pts) Mental Status- Overestimates/Forgets Limitations (15 pts.). Total Aleman Fall Scale indicates High Risk Score (45 or more points). Fall prevention measures have been instituted. Side Rails Up X 2 Placed Close to Nursing Station Frequent Obs/Assessments Occuring. Assessment: 03:40 General: Appears distressed, Behavior is agitated. Pain: Unable to use pain scale. sm5 Neuro: Level of Consciousness is awake, Oriented to person. Cardiovascular: Capillary refill < 3 seconds Rhythm is irregular. Respiratory: Airway is patent Trachea midline Respiratory effort is labored. :. : Hankins in place Urine is cloudy, Penile discharge is yellow, bloody. 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 03:45 General:. Neuro:. sm5 04:45 Reassessment: No changes from previously documented assessment. sm5 05:45 Reassessment: No changes from previously documented assessment. sm5 06:45 Reassessment: No changes from previously documented assessment. 5 13:51 Reassessment: MEDICAL POA: MEHNAZ MITCHELL [phone]. bp Vital Signs: 03:38 BP 104 / 56; Pulse 136; Resp 26; Temp 102.6(R); Pulse Ox 98% ; Weight 127.01 kg; Height 5 5 ft. 10 in. (177.80 cm); 04:00 BP 104 / 45; Pulse 137; Resp 22; Pulse Ox 99% on R/A; sm5 04:30 BP 94 / 75; Pulse 122; Resp 20; Pulse Ox 98% on R/A; sm5 05:00 BP 70 / 48; Pulse 130; Resp 21; Pulse Ox 97% ; sm5 05:30 BP 81 / 62; Pulse 113; Resp 22; Pulse Ox 99% on R/A; sm5 06:00 BP 80 / 58; Pulse 111; Resp 23; Temp 101.1(R); Pulse Ox 98% on R/A; sm5 06:14 BP 81 / 47; Pulse 113; Resp 22; Pulse Ox 96% on R/A; sm5 06:30 BP 95 / 56; Pulse 115; Resp 20; Pulse Ox 99% on R/A; sm5 06:45 BP 106 / 58; Pulse 112; Resp 16; Temp 99.7(R); Pulse Ox 98% ; sm5 07:01 BP 88 / 67; Pulse 102; Resp 15; Temp 99.7; Pulse Ox 97% ; sm5 03:38 Body Mass Index 40.18 (127.01 kg, 177.80 cm) 5 ED Course: 03:17 Patient arrived in ED. bp1 03:18 Rio Oconnor MD is Attending Physician. rn 03:38 Mari Torres RN is Primary Nurse. sm5 03:43 Triage completed. sm5 03:45 Hankins cath removed intact, balloon deflated. sm5 03:47 Arm band placed on right wrist. sm5 03:59 Patient has correct armband on for positive identification. Placed in gown. Bed in low sm5 position. Call light in reach. Side rails up X2. 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 Pulse ox on. NIBP on. 04:01 Hankins cath inserted, using sterile technique, 16 Fr., by ED staff, balloon inflated, to sm5 gravity drainage, urine specimen collected. 04:01 Maintain EMS IV. Dressing intact. Good blood return noted. Site clean \T\ dry. Gauge \T\ sm 5 site: 18 R AC. 04:01 Inserted saline lock: 24 gauge in left wrist, using aseptic technique. Blood collected. sm5 04:06 Chest Single View XRAY In Process Unspecified. EDMS 04:08 Urine Microscopic Only Sent. sm5 04:08 Urine Culture Sent. sm5 04:30 Accessed peripheral vein via ultrasound, utilizing dynamic ultrasound technique bb Powerglide midline 18 g 10 cm to left upper arm per hospital protocol, good blood return and flushes easily pt tolerated well. 04:44 SARS-COV-2 RT PCR Sent. sm5 04:48 Glucose, Ancillary Testing Sent. sm5 04:48 Protime (+INR) Sent. sm5 04:48 PTT, Activated Partial Thromb Sent. sm5 04:48 Troponin (Emerg Dept Use Only) Sent. sm5 04:48 Liver (Hepatic) Function Sent. sm5 04:48 Lactate Sent. sm5 04:48 Lipase Sent. sm5 04:48 Procalcitonin Sent. sm5 04:48 Creatine Phosphokinase Sent. sm5 04:48 Basic Metabolic Panel Sent. sm5 04:48 Blood Culture Sent. sm5 04:48 CBC with Automated Diff Sent. sm5 04:48 Basic Metabolic Panel Sent. sm5 04:48 Blood Culture Adult (2) Sent. sm5 04:48 CBC with Diff Sent. sm5 04:48 CPK Sent. sm5 04:48 LFT's Sent. sm5 04:48 Lactate Sent. sm5 04:48 Lipase Sent. sm5 04:48 Procalcitonin Sent. sm5 04:48 Protime (+inr) Sent. sm5 04:49 Ptt, Activated Sent. sm5 04:49 Troponin (emerg Dept Use Only) Sent. sm5 05:21 Notified ED physician of a critical lab result(s). Chloride 121. lp1 05:42 Ric Angeles is Hospitalizing Provider. rn 05:53 Assisted provider with central line placement. Set up central line tray. Triple lumen sm5 line placed in right femoral. Line placed by Rio Oconnor MD Placement verified by blood return, Dressed with Tegaderm, Patient tolerated well. Before procedure, did Practitioner(s) obtain informed consent? No. Patient \T\ family education about procedure, CLABSI prevention and S/S of infection? No. Time-out/Briefing performed prior to start of procedure? Yes. Was handwashing/sanitizing done immediately prior to procedure? Yes. Was patient positioned to in a way to prevent air embolism? Yes. Was procedure site sterilized? Yes, with chlorhexidine. Was the site allowed to dry? Yes. Was local anesthetic and/or sedation utilized? No. During the procedure, did the Practitioner(s) maintain a sterile field? Yes. Were unused ports clamped during insertion? Yes. Was a 2nd qualified MD obtained after 3 unsuccessful insertion attempts? No. Was blood aspirated from each lumen? Yes. After the procedure, did the Practitioner(s) clean the site and apply a sterile dressing? Yes. 08:02 Primary Nurse role handed off by Mari Torres, NOEL bp 08:02 Demetrius Main, NOEL is Primary Nurse. bp 08:54 Patient admitted, IV remains in place. ss Administered Medications: 03:38 Drug: Acetaminophen Suppository 650 mg Route: RI; kd3 04:03 Drug: NS 0.9% 1000 ml Route: IV; Rate: 1000 ml; Site: right antecubital; sm5 05:15 Follow up: IV Status: Completed infusion; IV Intake: 1000ml sm5 04:05 Drug: Meropenem 1 grams Route: IV; Rate: calculated rate; Site: right antecubital; sm5 05:05 Follow up: IV Status: Completed infusion; IV Intake: 100ml sm5 05:08 Drug: NS 0.9% 1000 ml Route: IV; Rate: 1000 ml; Site: left upper arm; sm5 06:10 Follow up: IV Status: Completed infusion; IV Intake: 1000ml sm5 05:42 Drug: D50W 50 ml Route: IVP; Site: left upper arm; sm5 05:53 Drug: D5W 1000 ml Route: IV; Rate: 100 ml/hr; Site: left upper arm; sm5 06:04 Drug: Levophed (norepinephrine) (4 mg/250 mL D5W 4 mcg/min Route: IV; Rate: calculated sm5 rate; Site: right femoral; 08:55 Follow up: IV Status: Infusion continued upon admission 06:06 Drug: Tylenol Suppository 325 mg Route: RI; sm5 Intake: 05:05 IV: 100ml; Total: 100ml. sm5 05:15 IV: 1000ml; Total: 1100ml. sm5 06:10 IV: 1000ml; Total: 2100ml. sm5 Outcome: 05:43 Decision to Hospitalize by Provider. rn 08:54 Admitted to ER Hold. Please see [facility] for further documentation. ss 08:54 Instructed on the need for admit. 06/26 19:47 Patient left the ED. lp1 Signatures: Dispatcher [employer] EDMS Misti Rico, RN RN bb Rio Oconnor MD MD rn Smirch, Shelby, RN RN ss Madison Quintero RN RN lp1 Demetrius Main RN NOEL Jennifer Leigh Kyli RN RN kd3 Mari Torres RN RN sm5 Corrections: (The following items were deleted from the chart) 06/25 03:59 03:48 PMHx: Hyperlipidemia; sm5 sm5 03:59 03:48 PMHx: Hypertension; sm5 sm5 04:08 04:01 Inserted saline lock: 24 gauge in right wrist, using aseptic technique. Blood sm5 collected. sm5 04:40 04:38 General: Appears sm5 sm5
--- NOTE | 2021-06-25 05:44 | EDPHYS ---
Physician Documentation [facility] Name: Zbigniew Mitchell Age: 76 yrs Sex: Male : 1945 Arrival Date: 06/25/2021 Time: 03:17 Bed 4 Private MD: ED Physician Rio Oconnor HPI: 06/25 03:30 This 76 yrs old Male presents to ER via Unassigned with complaints of fever, rn AMS. 03:30 The patient reports fever, with an emergency department temperature of 101 degrees rn Fahrenheit. Onset: The symptoms/episode began/occurred at an unknown time. Modifying factors: there are no obvious modifying factors. Associated signs and symptoms: Pertinent positives: altered mental status,\\E\\ Pertinent negatives: cough, diarrhea, skin rash, vomiting. Severity of symptoms: At their worst the symptoms were moderate in the emergency department the symptoms are unchanged. The patient has experienced similar episodes in the past. It is unknown whether or not the patient has recently seen a physician. Per EMS, patient with fever and AMS, has happened multiple times in past, usually UTI. No known fall or trauma. EMS reports fever to 101 and tachycardia. EMS obtained BP and states was low, we are getting high blood pressures here, not sure if accurate. . Historical: - Allergies: 03:48 PENICILLINS; sm5 - Home Meds: 03:48 megestrol 400 mg/10 mL (10 mL) Oral susp once daily [Active]; Dilantin 100 mg Oral 100 sm5 mg every 8 hours for epilepsy [Active]; Eliquis 2.5 mg oral tab 2 times per day [Active]; famotidine 20 mg Oral tab every 12 hours [Active]; furosemide 20 mg Oral tab 1 tab once daily [Active]; hydroxyzine HCl 25 mg Oral tab 1 tab as needed for pruritus of skin [Active]; Neurontin 100 mg Oral cap 3 times per day [Active]; nitroglycerin 0.4 mg Oral cpER PRN [Active]; Prozac 40 mg Oral cap 1 cap once daily [Active]; Synthroid 150 mcg Oral tab 1 tab once daily [Active]; valproic acid 250 mg Oral cap twice daily [Active]; mupirocin 2 % Topical oint twice daily [Active]; amlodipine 2.5 mg tab 1 tab twice a day [Active]; folic acid 1 mg Oral tab 1 tab once daily [Active]; - PMHx: 03:48 Atrial Fib; Bipolar disorder; Seizures; Depression; 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 It has been more than one year since last vaccine. - Social history:: Smoking status: unknown. - Code Status:: Full code. - History obtained from: EMS. ROS: 03:30 Unable to obtain ROS due to altered mental status, baseline dementia. rn Exam: 03:30 Constitutional: Overweight male, mild tachypnea, mottled extremities Head/Face: rn Normocephalic, atraumatic. Eyes: Periorbital areas with no swelling, redness, or edema. ENT: dry MM, no stridor Cardiovascular: Tachycardic, irregular Respiratory: Mild-moderate tachypnea, no retractions. Abdomen/GI: Soft, non-tender, no masses Male : Indwelling hankins catheter with thick film/drainage from urethra and on catheter itself. No discoloration or swelling of scrotum Skin: Mottled extremities, no cyanosis MS/ Extremity: Pulses equal, no cyanosis. Neuro: Awake, responsive to pain and voice, moaning and yelling "son of a bitch". Vital Signs: 03:38 BP 104 / 56; Pulse 136; Resp 26; Temp 102.6(R); Pulse Ox 98% ; Weight 127.01 kg; Height 5 5 ft. 10 in. (177.80 cm); 04:00 BP 104 / 45; Pulse 137; Resp 22; Pulse Ox 99% on R/A; sm5 04:30 BP 94 / 75; Pulse 122; Resp 20; Pulse Ox 98% on R/A; sm5 05:00 BP 70 / 48; Pulse 130; Resp 21; Pulse Ox 97% ; sm5 05:30 BP 81 / 62; Pulse 113; Resp 22; Pulse Ox 99% on R/A; sm5 06:00 BP 80 / 58; Pulse 111; Resp 23; Temp 101.1(R); Pulse Ox 98% on R/A; sm5 06:14 BP 81 / 47; Pulse 113; Resp 22; Pulse Ox 96% on R/A; 5 06:30 BP 95 / 56; Pulse 115; Resp 20; Pulse Ox 99% on R/A; 5 06:45 BP 106 / 58; Pulse 112; Resp 16; Temp 99.7(R); Pulse Ox 98% ; 5 07:01 BP 88 / 67; Pulse 102; Resp 15; Temp 99.7; Pulse Ox 97% ; 5 03:38 Body Mass Index 40.18 (127.01 kg, 177.80 cm) [facility] Procedures: 05:39 Central Line: the site was prepped with Betadine, in sterile fashion, a triple lumen rn catheter was inserted, in the right femoral vein, in 1 attempts. placement was verified, by blood return, the site was dressed with Tegaderm, using sterile technique, the patient tolerated the procedure, well. MDM: 03:18 Patient medically screened. rn 05:23 Differential diagnosis: viral Infection, bacterial infection, bronchitis, pneumonia rn UTI. Differential diagnosis: sepsis, severe sepsis. Data reviewed: vital signs, nurses notes. Counseling: I had a detailed discussion with the patient and/or guardian regarding: the historical points, exam findings, and any diagnostic results supporting the discharge/admit diagnosis, lab results. 05:40 Data interpreted: ekg monitor: rate is 114 beats/min, rhythm is atrial rn fibrillation, with unifocal PVCs, Interpretation: atrial fibrillation, tachycardia, Pulse oximetry: on room air is 97 %. Interpretation: normal. Response to treatment: the patient's symptoms have mildly improved after treatment, and as a result, I will admit patient. Admission orders: after a detailed discussion of the patient's condition and case, the admit orders are written by me. ED course: Blood pressure dropped during infusion of 2nd NS bolus, central line placed for better access, started on levophed, given 1 amp d50, and started on d5W given acute renal failure and hypernatremia. . 06/25 03:28 Order name: Basic Metabolic Panel rn 06/25 03:28 Order name: Blood Culture Adult (2) rn 06/25 03:28 Order name: CBC with Diff rn 06/25 03:28 Order name: CPK rn 06/25 03:28 Order name: LFT's rn 06/25 03:28 Order name: Lactate rn 06/25 03:28 Order name: Lipase rn 06/25 03:28 Order name: Procalcitonin rn 06/25 03:28 Order name: Protime (+inr) rn 06/25 03:28 Order name: Ptt, Activated rn 06/25 03:28 Order name: Troponin (emerg Dept Use Only) rn 06/25 03:28 Order name: Urine Culture rn 06/25 03:28 Order name: Urine Microscopic Only; Complete Time: 05:01 rn 06/25 03:29 Order name: Basic Metabolic Panel; Complete Time: 05:21 EDMS 06/25 03:29 Order name: Blood Culture EDMS 06/25 03:29 Order name: CBC with Automated Diff; Complete Time: 07:22 EDMS 06/25 03:29 Order name: Creatine Phosphokinase; Complete Time: 05:21 EDMS 06/25 03:29 Order name: Liver (Hepatic) Function; Complete Time: 05:21 EDMS 06/25 03:29 Order name: Lactate; Complete Time: 05:07 EDMS 06/25 03:29 Order name: Lipase; Complete Time: 05:21 EDMS 06/25 03:29 Order name: Procalcitonin; Complete Time: 05:43 EDMS 06/25 03:29 Order name: Protime (+INR); Complete Time: 05:01 EDMS 06/25 03:29 Order name: PTT, Activated Partial Thromb; Complete Time: 05:01 EDMS 06/25 03:29 Order name: Troponin (Emerg Dept Use Only); Complete Time: 05:21 EDMS 06/25 03:52 Order name: Urine Dipstick-Ancillary; Complete Time: 05:01 EDMS 06/25 04:16 Order name: Glucose, Ancillary Testing EDMS 06/25 04:40 Order name: SARS-COV-2 RT PCR; Complete Time: 05:22 EDMS 06/25 04:54 Order name: Manual Differential; Complete Time: 07:22 EDMS 06/25 09:58 Order name: Lactate Sepsis 2 HR Follow-up; Complete Time: 07:22 EDMS 06/25 03:28 Order name: Chest Single View XRAY; Complete Time: 07:22 rn 06/25 07:52 Order name: US; Complete Time: 07:22 EDMS 06/25 10:00 Order name: Uric Acid; Complete Time: 07:22 EDMS 06/25 10:00 Order name: Phenytoin (Dilantin) Level; Complete Time: 07:22 EDMS 06/25 10:00 Order name: Valproic Acid (Depakene) Level; Complete Time: 07:22 EDMS 06/25 10:08 Order name: Ammonia; Complete Time: 07:22 EDMS 06/25 10:53 Order name: CKMB Creatine Kinase MB; Complete Time: 07:22 EDMS 06/25 20:58 Order name: Gram Stain--Aerobic Bottle; Complete Time: 07:22 EDMS 06/25 20:58 Order name: Gram Stain--Anaerobic Bottle; Complete Time: 07:22 EDMS 06/25 23:40 Order name: Magnesium; Complete Time: 07:22 EDMS 06/26 05:55 Order name: CBC with Automated Diff; Complete Time: 07:22 EDMS 06/26 06:28 Order name: Comprehensive Metabolic Panel; Complete Time: 07:22 EDMS 06/26 06:28 Order name: Renal Panel; Complete Time: 07:22 EDMS 06/26 06:28 Order name: Lactic Dehydrogenase; Complete Time: 07:22 EDMS 06/26 06:28 Order name: Creatine Phosphokinase; Complete Time: 07:22 EDMS 06/26 06:28 Order name: Lipid Profile; Complete Time: 07:22 EDMS 06/26 06:28 Order name: T4 Free; Complete Time: 07:22 EDMS 06/26 06:28 Order name: Magnesium; Complete Time: 07:22 EDMS 06/26 06:28 Order name: Thyroid Stimulating Hormone; Complete Time: 07:22 EDMS 06/26 06:28 Order name: Transferrin Sat/Iron Binding; Complete Time: 07:22 EDMS 06/26 06:28 Order name: Ferritin; Complete Time: 07:22 EDMS 06/26 06:28 Order name: Folic Acid, (Folate); Complete Time: 07:22 EDMS 06/26 06:28 Order name: Vitamin B12 Level; Complete Time: 07:22 EDMS 06/26 07:08 Order name: Gram Stain--Anaerobic Bottle EDMS 06/26 18:35 Order name: PTH Intact; Complete Time: 07:22 EDMS 06/25 03:28 Order name: Accucheck; Complete Time: 04:06 rn 06/25 03:28 Order name: Cardiac monitoring; Complete Time: 04:00 rn 06/25 03:28 Order name: Cath; Complete Time: 04:00 rn 06/25 03:28 Order name: EKG - Nurse/Tech; Complete Time: 04:00 rn 06/25 03:28 Order name: IV Saline Lock - Large Bore; Complete Time: 04:06 rn 06/25 03:28 Order name: Labs collected and sent; Complete Time: 04:49 rn 06/25 03:28 Order name: O2 Per Protocol; Complete Time: 04:00 rn 06/25 03:28 Order name: O2 Sat Monitoring; Complete Time: 04:00 rn 06/25 03:28 Order name: Urine Dipstick-Ancillary (obtain specimen); Complete Time: 04:08 rn Administered Medications: 03:38 Drug: Acetaminophen Suppository 650 mg Route: IN; kd3 04:03 Drug: NS 0.9% 1000 ml Route: IV; Rate: 1000 ml; Site: right antecubital; sm5 05:15 Follow up: IV Status: Completed infusion; IV Intake: 1000ml sm5 04:05 Drug: Meropenem 1 grams Route: IV; Rate: calculated rate; Site: right antecubital; sm5 05:05 Follow up: IV Status: Completed infusion; IV Intake: 100ml sm5 05:08 Drug: NS 0.9% 1000 ml Route: IV; Rate: 1000 ml; Site: left upper arm; sm5 06:10 Follow up: IV Status: Completed infusion; IV Intake: 1000ml sm5 05:42 Drug: D50W 50 ml Route: IVP; Site: left upper arm; sm5 05:53 Drug: D5W 1000 ml Route: IV; Rate: 100 ml/hr; Site: left upper arm; sm5 06:04 Drug: Levophed (norepinephrine) (4 mg/250 mL D5W 4 mcg/min Route: IV; Rate: calculated sm5 rate; Site: right femoral; 08:55 Follow up: IV Status: Infusion continued upon admission ss 06:06 Drug: Tylenol Suppository 325 mg Route: IN; sm5 Disposition Summary: 06/25/21 05:43 Hospitalization Ordered Hospitalization Status: Inpatient Admission rn Provider: Ric Angeles rn Condition: Serious rn Problem: new rn Symptoms: have improved rn Bed/Room Type: Standard rn Location: Telemetry/MedSurg (Inpatient)(06/26/21 18:05) em1 Room Assignment: 228(06/26/21 18:05) em1 Diagnosis - Severe sepsis with septic shock rn - UTI/ Urinary tract infection, site not specified rn - Acute kidney failure, unspecified rn - Hyperosmolality and hypernatremia rn Forms: - Medication Reconciliation Form rn - SBAR form external grinder tool time excluding procedures: 05:40 Critical care time: Bedside Care: 35 minutes, Consultation: 5 minutes. Total time: 40 rn minutes Signatures: Dispatcher [employer] EDMS Ivanna Enamorado RN RN iw Rio Oconnor MD MD rn Martinez, Eric em1 Sivakumar Paniagua, YONG-C YONG-She Stovall, RN RN Melly Tidwell RN RN [email or web address] Mari Torres RN RN [email or web address] Augustina Puri RN ss Corrections: (The following items were deleted from the chart) 03:59 03:48 PMHx: Hyperlipidemia; sm5 sm5 03:59 03:48 PMHx: Hypertension; sm5 sm5 05:49 05:43 Telemetry/MedSurg (Inpatient) rn cg 05:49 05:43 rn cg 06/26 11:00 12 05:[address] [facility] ER HOLD cg iw 06/26 11:00 12 05:49 ERHOLD- cg 06/26 11:02 11:00 Telemetry/MedSurg (Inpatient) iw iw : 11:00 225 iw iw 18:05 11:[address] [facility] ER HOLD iw em1 18:05 11:02 ERHOLD- iw em1
[2021-06-25] MEDS ORDERED: NOREPINEPHRINE 4mg/D5W 250mL 4 MG/250 ML BAG IV ONE ×2 (05:53→09:43)
[2021-06-25 06:27] LABS: Blood Morphology Comment NOT SEEN (NOT SEEN); Platelet Estimate ADEQ; Platelets, Giant FEW
[2021-06-25] MEDS ORDERED: ACETAMINOPHEN 650MG/RECT SUPP PR PRN (07:06)
[2021-06-25] MEDS ORDERED: D5W 1,000 ML IV SCH (07:06)
[2021-06-25] MEDS ORDERED: NOREPINEPHRINE 4 MG in D5W 250 ML IV SCH (07:06)
[2021-06-25] MEDS ORDERED: ONDANSETRON 4 MG/2 ML VIAL IV PRN (07:06)
--- NOTE | 2021-06-25 07:22 | RAD REPORT ---
EXAM DESCRIPTION: RAD - Chest Single View - 06/25/2021 4:06 am CLINICAL HISTORY: FEVER COMPARISON: Chest Single View dated 03/28/2021; Chest Single View dated 03/02/2021; Chest Single View da saulo 12/21/2020; Chest Single View dated 12/15/2020 FINDINGS: Lines: None. Lungs: No evidence of edema or pneumonia. Decreased lung volumes. Pleural: No significant pleural effusions or pneumothorax. Cardiac: The heart size is within normal limits. Bones: No acute fractures. Other: IMPRESSION: Low lung volumes without focal airspace process.
--- NOTE | 2021-06-25 07:51 | RAD REPORT ---
EXAM DESCRIPTION: US - Renal Ultrasound-Complete - 06/25/2021 7:36 am CLINICAL HISTORY: arf COMPARISON: ENTEROSTOMY TUBE CHECK W/CONTR dated 04/08/2021; Abdomen Pelvis W Contrast dated 021 FINDINGS: The right kidney measures 11 cm in long axis. The left kidney measures 10 cm in long axis. No hydronephrosis is present. The renal echogenicity is normal. Hypoechoic right renal lesion measur ing 17 millimeters has mild increased through transmission and is probably a cyst when correlating wi th the prior CTs. IMPRESSION: No evidence of hydronephrosis. Probable right renal cyst.
[2021-06-25] MEDS ORDERED: NOREPINEPHRINE 4 MG in D5W 250 ML IV PRN (08:25)
[2021-06-25] MEDS: APIXABAN 2.5 MG TABLET PO SCH ×2 (09:00→21:00)
[2021-06-25] MEDS: Meropenem 500 MG/100 ML BAG IV SCH (09:00)
[2021-06-25 09:56] LABS: Phenytoin (Dilantin) Level 1.8 ug/mL (10.0-20.0); Uric Acid 8.5 mg/dL (3.5-7.2); Valproic Acid (Depakene) Level 20.8 ug/mL (50-100)
[2021-06-25 10:52] LABS: CKMB Creatine Kinase MB < 1.0 ng/mL (1.0-3.6)
--- NOTE | 2021-06-25 11:48 | P.CNS ---
Primary Care Provider: senior care doctor Chief Complaint: Sepsis, UTI History of Present Illness: The patient is a 68-year-old male with a past medical history of Alzheimer's dementia, atrial fibrillation on chronic anticoagulation therapy, hypertension, seizure disorder, bipolar disorder, dysphagia, history of UTIs, and a sacral decubitus ulceration presented to [facility] emergency department from the [facility] secondary to fever, increasing altered mental status, and suspected the UTI. Patient's altered at bedside, as such a history obtained via chart review. Per chart review the [facility] staff reported to EMS the patient had a fever and was noted to have sediment in his urine. In the ED urinalysis was significant for 3+ leuk esterase, nitrate positive, and multiple WBC and bacteria. Blood and urine cultures are pending. Patient has a sacral stage IV decubitus ulcer status post surgical debridement performed on 12/26/2020. Patient also has right heel unstageable ulcer. Allergies Penicillins Allergy (Verified 11/26/20 00:08) Anaphylaxis rabies bat serum Allergy (Uncoded 11/26/20 00:08) Rash Home Medications: Divalproex Sodium [Depakote ER] 2 tab PO BEDTIME 01/22/15 Donepezil [Aricept*] 10 mg PO BEDTIME 03/08/18 PHENYTOIN ER Cap [Dilantin ER Cap*] 2 cap PO BID 03/08/18 Amlodipine [Norvasc*] 2.5 mg PO DAILY 11/26/20 Calcium Carbonate/Vitamin D3 [Calcium 600-Vit D3 400 Tablet] 1 each PO DAILY 11/26/20 Divalproex ER [Depakote *ER] 250 mg PO DAILY 11/26/20 Fluoxetine HCl [Prozac] 40 mg PO DAILY 11/26/20 Furosemide [Lasix*] 40 mg PO BIDL 11/26/20 Gabapentin [Neurontin*] 100 mg PO TID 11/26/20 Hydrocodone 5/APAP 325 [[place] 5/325*] 1 tab PO Q8HP PRN 11/26/20 Hydrocortisone Cream [Hydrocortisone 1% Cream*] 1 appl TOP BID 11/26/20 Levothyroxine Sodium [Synthroid] 150 mcg PO [id number] 11/26/20 Lidocaine [Aspercreme Lidocaine] 1 each TP DAILY 11/26/20 Metoprolol Tartrate 25 mg PO BID 11/26/20 Nitroglycerin [Nitrostat*] 0.4 mg SL PRN PRN 11/26/20 Omeprazole Magnesium [Acid Pulverizer Feeder] 20 mg PO DAILY 11/26/20 Polyethylene Glycol 3350 [Miralax] 17 gm PO DAILY 11/26/20 Trazodone HCl 100 mg PO BEDTIME 11/26/20 hydrOXYzine HCL [Atarax*] 25 mg PO BIDP PRN 11/26/20 Apixaban [Eliquis] 2.5 mg PO BID 12/15/20 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; cervicalgia; Chronic pain; constipation -: Atrial Fib; frequent falls; osteoarthritis -: Bronchitis; Hyperlipidemia; Bipolar disorder; encephalopathy; Diverticuliti -: Hypertension; Hypothyroidism; Seizures; Depression -: DEPRESSION -: DIVERTICULITIS -: CONSTIPATION -: MUSCLE WASTING/ATROPHY -: ALLERGIC RHINITIS -: NON-DISPLACED FRACTURE OF THE LEFT HUMERUS -: COGNITIVE COMMUNICATION DEFICIT -: OSTEOPOROSIS Psychosocial/ Personal History: senior care resident - Family History pARENTS Notes: PT IS CONFUSED; UNABLE TO RECALL/STATE - Social History Smoking Status: Unknown if ever smoked Alcohol use: No CD- Drugs: No Caffeine use: No Place of Residence: [place] Review of Systems is unable to be obtained Physical Examination Temp Pulse Resp BP Pulse Ox 99.1 F 81 15 128/57 L 98 06/25/21 11:00 06/25/21 11:00 06/25/21 11:00 06/25/21 11:00 06/25/21 11:00 General: Obese, Other (Altered mental status) HEENT: Atraumatic, Normocephalic Neck: Supple, 2+ carotid pulse no bruit Respiratory: Other (Symmetric expansion, no acute distress) Cardiovascular: Irregular heart rate/rhythm Capillary refill: <2 Seconds Gastrointestinal: Normal bowel sounds, Soft and benign Integumentary: Pressure ulcer (Stage IV decubitus pressure ulcer. Marni wound tissue with excoriation, and purple/red discoloration. Right heel unstageable pressure ulcer: Base of wound 100% eschar tissue on) Laboratory Data (last 24 hrs) 06/25/21 04:23: PT 16.0 H, INR 1.39, APTT 27.4 06/25/21 04:23: WBC 7.40, Hgb 13.3 L, Hct 41.6, Plt Count 292 06/25/21 04:23: Sodium 151 H, Potassium 4.2, BUN 69 H, Creatinine 4.28 H, Glucos e 64 L, Total Bilirubin 0.3, AST 10 L, ALT 9 L, Alkaline Phosphatase 108, Lipase 32 L Conclusions/Impression: Antibiotics: Meropenem Start: 06/25 Assessment/plan UTI Urinalysis grossly positive, urine culture pending. Patient has history of E coli UTI. Patient placed on meropenem. Patient does have history of seizure disorder and is on valproic acid and phenytoin, and to increase dosage these medications well patient is on meropenem. Recommend closely monitoring serum concentrations of these medications. Sacral decubitus ulcer stage IV Wound care: Apply Medihoney to base of wound and packed with gauze. Change daily or p.r.n. if soiled removed. Offload with wedge fellows, recommend repositioning patient bed every 2 hr during waking hr. Right heel unstageable pressure ulcer Wound care: [place] with Betadine and cover with island dressing. Change daily or p.r.n. if soiled removed. Protect heels with heel booties. Protein caloric malnutrition Low albumin at 1.7. Recommend supplemental Ensure protein drinks. Proper nutrition needed for adequate wound healing. EMERY History of seizures Anemia -medical management per primary team -continue monitor CBC and BMP -continue to monitor signs of infection -plan of care discussed with Dr. Patel Thank you for consultation.
[2021-06-25] MEDS ORDERED: NA CHLORIDE 0.9% 1,000 ML IV ONE ×2 (11:54→12:30)
[2021-06-25] MEDS: D5 0.45 NS 1,000 ML IV SCH ×2 (12:00→20:00)
[2021-06-25] MEDS ORDERED: D5 0.45 NS 1,000 ML IV ONE ×2 (12:51→21:11)
--- NOTE | 2021-06-25 13:16 | CON ---
Date of Consultation: 06/25/2021 Reason For Consultation: Elevated BUN and creatinine, fluid management. History Of Present Illness: All the information has been obtained from the record, as the patient has altered mental status, obtunded, has advanced dementia. This is a 76-year-old gentleman with significant past medical history of Alzheimer, AFib on anticoagulation, hypertension, seizure, bipolar. The patient came to the hospital from the [facility] with altered mental status, found to have UTI with urosepsis. The patient has also decubitus ulcer. The patient found to have before ESBL of UTI, used to be on meropenem. The patient upon arrival to the hospital was hypotensive. The patient over the night was started on Levophed. Blood pressure maintained. Kidney function gradually started deteriorating. For that reason, we have been consulted. Reviewing the record for the patient, the patient back in March 2021, kidney function, creatinine 0.8 with GFR above 90. In the [facility], creatinine within normal limit. Currently, creatinine 4.2, GFR of 13 with sodium 152. As I mentioned as insulting medication, the patient was at [facility] on Lasix and Neurontin and apparently here in the hospital, the patient was started on antibiotic and patient had low blood pressure. No contrast exposure. The CT did not show any obstructive uropathy. Past Medical History: Includes: 1. AFib. 2. Alzheimer. 3. Seizure. 4. Hypertension. 5. Bipolar. 6. Decubitus ulcer. 7. Recurrent UTI. Allergies: ALLERGY TO PENICILLIN AND RABIES. Home Medications: Include Depakote, donepezil, Dilantin, amlodipine, calcium carbonate with vitamin D, Lasix, gabapentin, hydrocodone, levothyroxine, metoprolol, nitroglycerin, omeprazole, trazodone, Hydrea, Zosyn, Eliquis. Family History: None obtainable. Social History: None obtainable. Review of Systems: None obtainable. Surgical History: Nondisplaced fracture repair. Physical Examination: Vital Signs: When I saw the patient, the patient lying on bed, on nasal cannula. Blood pressure 128/57, pulse of 81, afebrile. HEENT: Mucosa looked dry. HEART: S1, S2, regular. Systolic murmur. Abdomen: Soft, nontender. Extremity: No edema. Neuro: The patient moving 4 extremities. No focality. No tremor. The patient had decubitus ulcer. Laboratory Data: Dilantin 1.8. Valproic acid is 20. Sodium 151, potassium 4.2, chloride 121, bicarb 19, BUN 69, creatinine 4.2, GFR of 13. Back in March, creatinine 0.8, GFR above 90. WBC 7.4, H and H 13.3/41.6, and platelets 292. Back in March, hemoglobin 11.4. Urinalysis: +3 protein, bacteria. Assessment And Plan: 1. Acute kidney injury secondary to prerenal poor perfusion acute tubular necrosis/toxic acute tubular necrosis, obstructive uropathy has been ruled out. 2. Looked to me the patient is still on the dry side giving the sepsis and patient pressor dependent. I am going to go ahead and bolus the patient with another liter of normal saline, switch IV fluid to isotonic fluid to D5 half- normal and we will monitor. We will accept marginal fluctuation on the upper side on the hypernatremia and favor of establishing better volume resuscitation for the patient and we will follow up. I am going to go ahead and repeat CK and ultrasound with protein creatinine and we will follow up the patient closely. Giving his age and his condition, I do not see the need for initiating any renal replacement therapy for the time being as no severe acidosis or hyperkalemia. 3. Discontinue Lasix, discontinue Neurontin. 4. Hypertension with the presence of acute kidney injury, discontinue Lasix. 5. Hypernatremia secondary to depletion. Again, I am going to change IV fluid from D5 to isotonic giving the need for resuscitation. 6. Non-anion gap metabolic acidosis with contraction alkalosis secondary to renal failure and sepsis. Lactic acid is elevated. We will start aggressive resuscitation. 7. Urinary tract infection with urosepsis/septic shock. Agree with current antibiotic dose appropriate and we will follow up culture. 8. Decubitus ulcer by the Primary. 9. Atrial fibrillation as by primary, given the acute kidney injury. I am going to send for LDH and complement just to rule out any embolic phenomena and we will follow up. Dr. Angeles for allowing us to participate in the care of your patient. time spend exam the patient face to face , placing order , reviewing the data of lab and radiology , discussing with the staff including nusing , discussing with other rodgers member including hospitalist and other recruiting operations consultant 65 min EMILE/NAYAN Voice ID: [id number] Report ID: [id number] LINDA
--- NOTE | 2021-06-25 16:22 | EKG ---
Test Date: 2021-06-25 Test Time: 03:23:04 Stewardesses Teacher: RADHA MEASUREMENT RESULTS: Intervals: Rate: 136 MD: 144 QRSD: 108 QT: 328 QTc: 493 [place]: P: 63 MD: 144 QRS: -74 T: 43 INTERPRETIVE STATEMENTS: Sinus tachycardia with fusion complexes Left axis deviation Incomplete right bundle branch block Inferior infarct, age undetermined Possible Anterolateral infarct, age undetermined Abnormal ECG Compared to ECG 03/28/2021 11:50:43 Fusion complex(es) now present Left-axis deviation now present Left anterior fascicular block no longer present Myocardial infarct finding still present Electronically Signed On 06-25-21 16:21:05 PARING MACHINE OPERATOR by Paco Bond
[2021-06-25] MEDS: NOREPINEPHRINE 8 MG in Dextrose 5%-Water 500 ML IV PRN (19:00)
--- NOTE | 2021-06-25 19:56 | P.PN ---
Date of Service: 06/25/21 Patient seen and examined. He is unresponsive. Blood pressure has improved and Levophed drip weaned off. Impression: Septic shock Acute renal failure secondary to dehydration versus sepsis. Acute metabolic encephalopathy. Hypernatremia Plan: Aggressive antibiotic therapy. Aggressive IV hydration Neurochecks. Infectious disease and nephrology input appreciated. Monitor BMP for improvement in renal function and sodium level.
[2021-06-26] MEDS ORDERED: D5 0.45 NS 1,000 ML IV ONE ×2 (03:12→13:06)
[2021-06-26] MEDS: D5 0.45 NS 1,000 ML IV SCH ×3 (04:00→20:00)
[2021-06-26] MEDS: NOREPINEPHRINE 8 MG in Dextrose 5%-Water 500 ML IV PRN (04:30)
[2021-06-26 05:50] LABS: Absolute Lymphocytes (CBC) 0.6 K/uL (0.7-4.9); Basophils % 0.2 % (0-1.3); Lymphocytes % 4.3 % (15.3-44.8); MPV 8.7 fL (7.6-11.3); RBC Red Blood Cell Count 3.71 M/uL (4.33-5.43)
[2021-06-26 06:20] LABS: Potassium 3.7 mmol/L (3.5-5.1)
[2021-06-26 06:21] LABS: Albumin 1.5 g/dL (3.4-5.0); Bilirubin Total 0.1 mg/dL (0.2-1.0); Ferritin 426.8 ng/mL (26-388); Folic Acid, (Folate) 5.6 ng/mL (3.1-17.5); Magnesium 1.8 mg/dL (1.8-2.4); Phosphorus 3.7 mg/dL (2.5-4.9); Protein, Total 6.3 g/dL (6.4-8.2); Thyroid Stimulating Hormone 2.52 uIU/mL (0.360-3.740)
[2021-06-26] MEDS ORDERED: MAGNESIUM SULFATE 1 gm IVPB 1 GM/100 ML BAG IV ONE ×2 (06:55→08:15)
[2021-06-26] MEDS ORDERED: POTASSIUM 25 MEQ EFFERV TAB PO ONE (06:56)
[2021-06-26] MEDS ORDERED: APIXABAN 5 MG TABLET ONE (08:15)
[2021-06-26] MEDS ORDERED: POTASSIUM 25 MEQ EFFERV TAB ONE (08:15)
[2021-06-26] MEDS: MEDIHONEY 44 ML TOPICAL TUBE TOP SCH (09:00)
[2021-06-26] MEDS: Meropenem 500 MG/100 ML BAG IV SCH (09:00)
[2021-06-26] MEDS: APIXABAN 2.5 MG TABLET PO SCH ×2 (09:00→20:48)
--- NOTE | 2021-06-26 10:44 | P.PN ---
Subjective Date of Service: 06/26/21 Primary Care Provider: care home doctor Chief Complaint: Sepsis, UTI Patient seen examined at bedside, states he is feeling well. Denies nausea/vomiting. Review of Systems 10-point ROS is otherwise unremarkable Physical Examination - Vital Signs Temperature: 98.3 F Blood Pressure: 124/80 Pulse: 78 Respirations: 15 Pulse Ox (%): 98 - Studies 06/25/21 03:52 Blood - Blood Blood Culture Gram Stain - Final 06/25/21 03:52 Blood - Blood Gram Stain - Final Microbiology Data (last 24 hrs): 06/25/21 03:52 Blood - Blood Blood Culture Gram Stain - Final 06/25/21 03:52 Blood - Blood Gram Stain - Final Assessment And Plan - Plan Physical exam: General: Obese, awake, alert. HEENT: Atraumatic, Normocephalic Neck: Supple, 2+ carotid pulse no bruit Respiratory: Other (Symmetric expansion, no acute distress) Cardiovascular: Irregular heart rate/rhythm Capillary refill: <2 Seconds Gastrointestinal: Normal bowel sounds, Soft and benign Integumentary: Pressure ulcer (Stage IV decubitus pressure ulcer. Marni wound tissue with excoriation, and purple/red discoloration. Right heel unstageable pressure ulcer: Base of wound 100% eschar tissue on) Conclusions/Impression: Antibiotics: Meropenem Start: 06/25 Assessment/plan Sepsis secondary to UTI Urinalysis grossly positive, urine culture pending. Patient has history of E coli UTI. Patient placed on meropenem. Patient does have history of seizure disorder and is on valproic acid and phenytoin, may need to increase dosage these medications well patient is on meropenem. Recommend closely monitoring serum concentrations of these medications. Acute metabolic encephalopathy Mentation improving, continue current antibiotics. Leukocytosis Increase in WBC noted on most recent labs, continue current antibiotics. Closely monitor WBC, is a continues to increase may need MRSA coverage due to frequent hospitalizations. Sacral decubitus ulcer stage IV Wound care: Apply Medihoney to base of wound and packed with gauze. Change daily or p.r.n. if soiled removed. Offload with wedge fellows, recommend repositioning patient bed every 2 hr during waking hr. Right heel unstageable pressure ulcer Wound care: [place] with Betadine and cover with island dressing. Change daily or p.r.n. if soiled removed. Protect heels with heel booties. Protein caloric malnutrition Low albumin at 1.7. Recommend supplemental Ensure protein drinks. Proper nutrition needed for adequate wound healing. EMERY History of seizures Anemia -medical management per primary team -continue monitor CBC and BMP -continue to monitor signs of infection -plan of care discussed with Dr. Patel Thank you for consultation.
[2021-06-26] MEDS ORDERED: NA CHLORIDE 0.9% 500 ML IV ONE (13:35)
--- NOTE | 2021-06-26 16:51 | PN ---
Date of Progress Note: 06/26/2021 Subjective: The patient was admitted with urosepsis/septic shock, acidosis, and acute kidney injury secondary to toxic ATN. The patient had fluid resuscitation yesterday, started on Levophed, then weaned from the Levophed. The patient is feeling better, more awake today. Physical Examination: Vital Signs: Blood pressure 95/57, pulse of 89, afebrile. Chest: Clear to auscultation. Heart: S1, S2. Regular. Systolic murmur. Abdomen: Soft, nontender. Extremities: Trace edema. Neurologic: Alert. No focality. Laboratory Data: WBC 15.1, H and H 11.9/37, platelet of 255. Sodium 145, potassium 3.7, bicarb 22, BUN 57, creatinine down to 2.5, GFR of 25, calcium 7.9, phosphorus 3.7, magnesium 1.8. Iron saturation 21, ferritin 426. Albumin 1.5. Corrected calcium is 9.9. Serum protein electrophoresis is still pending. PTH is still pending. Urinalysis positive for infection, +3 protein. Current Medications: The patient on include; 1. Meropenem. 2. Eliquis. 3. Levophed. 4. Zofran. 5. IV fluid D5 half at 125. 6. KCl. 7. Magnesium. Assessment And Plan: 1. Acute kidney injury secondary to poor perfusion, ATN, toxic ATN, shock, nonoliguric, no hyperkalemia, on the recovery phase. I am going to continue IV hydration and we will monitor. 2. Hyponatremia secondary to depletion, trending down. Continue IV fluids. 3. Septic shock, urosepsis. Culture still pending. 4. History of ESBL. Continue meropenem, dose appropriate. 5. Decubitus ulcer as by primary. 6. Hypertension, currently blood pressure on the lower side. Hold all blood pressure medications, especially LEONLE inhibitor and diuresis, especially with the presence of acute kidney injury. 7. Altered mental status, metabolic secondary to urosepsis as above. 8. Hypokalemia, hypomagnesemia, status post supplement. time spend exam the patient face to face , placing order , reviewing the data of lab and radiology , discussing with the staff including nusing , discussing with other rodgers member including hospitalist and other fitness consultant 45 min EMILE/NAYAN Voice ID: [id number] Report ID: [id number] LINDA
--- NOTE | 2021-06-26 17:55 | P.PN ---
Subjective Date of Service: 06/26/21 Primary Care Provider: [facility] doctor Chief Complaint: Sepsis, UTI Patient is awake today and communicates. He is complaining of pain in his buttocks. Blood pressure is stable. No fever. Physical Examination - Vital Signs Temperature: 98.1 F Blood Pressure: 94/53 Pulse: 95 Respirations: 20 Pulse Ox (%): 100 - Physical Exam General: In no apparent distress, Other (Awake) HEENT: Mucous membr. moist/pink, Sclerae nonicteric Neck: JVD not distended Respiratory: Clear to auscultation bilaterally, Normal air movement Cardiovascular: No edema, Regular rate/rhythm, Normal S1 S2, No murmurs Gastrointestinal: Soft and benign, Non-distended, No tenderness Musculoskeletal: No swelling Integumentary: Pressure ulcer (Left heel and sacrum) Neurological: Normal speech, Dementia - Studies Microbiology Data (last 24 hrs): 06/25/21 03:52 Blood - Blood Blood Culture Gram Stain - Final 06/25/21 03:52 Blood - Blood Gram Stain - Final Assessment And Plan - Current Problems (Diagnosis) (1) Septic shock Current Visit: Yes Status: Acute (2) Acute renal failure Current Visit: No Status: Acute (3) UTI (urinary tract infection) Current Visit: No Status: Acute (4) Alzheimer's dementia Onset Date: 03/08/18 Current Visit: No Status: Chronic (5) Chronic a-fib Current Visit: No Status: Chronic (6) History of seizure disorder Onset Date: 03/08/18 Current Visit: No Status: Chronic (7) Decubitus ulcer of buttock Current Visit: Yes Status: Acute - Plan Patient clinically better compared to yesterday. Altered mental status improved. EMERY is improving. Blood pressure has improved, patient is currently normotensive and stable. Nephrology input appreciated. Continue IV meropenem given history of ESBL UTI. Follow cultures. Continue IV hydration. Patient was on mechanical soft diet during his previous hospitalization. We will start mechanical soft diet. Local wound care.
[2021-06-27] MEDS: D5 0.45 NS 1,000 ML IV SCH ×2 (05:06→12:00)
[2021-06-27 06:30] LABS: Absolute Lymphocytes (CBC) 0.5 K/uL (0.7-4.9); Basophils % 0.3 % (0-1.3); Hematocrit 36.5 % (39.6-49.0); Lymphocytes % 6.9 % (15.3-44.8); MPV 9.1 fL (7.6-11.3); RBC Red Blood Cell Count 3.69 M/uL (4.33-5.43)
[2021-06-27 06:43] LABS: Albumin 1.4 g/dL (3.4-5.0); Bilirubin Total 0.2 mg/dL (0.2-1.0); Magnesium 1.7 mg/dL (1.8-2.4); Phosphorus 3.1 mg/dL (2.5-4.9); Potassium 3.6 mmol/L (3.5-5.1); Protein, Total 5.6 g/dL (6.4-8.2)
--- NOTE | 2021-06-27 06:43 | P.PN ---
Subjective Date of Service: 06/28/21 Primary Care Provider: intermediate doctor Chief Complaint: Sepsis, UTI Subjective: No new changes Physical Examination - Vital Signs Temperature: 96.9 F Blood Pressure: 92/56 Pulse: 83 Respirations: 17 Pulse Ox (%): 93 - Physical Exam General: Other (appears as his stated age) HEENT: Normocephalic Neck: Supple, JVD not distended Respiratory: Other (symmetric chest expansion) Cardiovascular: No rubs, No murmurs Gastrointestinal: Soft and benign, No guarding Musculoskeletal: No clubbing Integumentary: No warmth Neurological: Normal speech, Normal tone Urinary: Other (No bladder distention) External genitalia: Deferred Rectal: Deferred - Studies Microbiology Data (last 24 hrs): 06/25/21 03:52 Blood - Blood Blood Culture Gram Stain - Final 06/25/21 03:52 Blood - Blood Gram Stain - Final Assessment And Plan - Plan 1. Acute kidney injury secondary to poor perfusion, ATN, toxic ATN, shock, nonoliguric. Improving. IVF via D5W gtt. Monitor renal panel. 2. Hypernatremia. Wt. 127.2 kg. Total body water 63.6L. Free water deficit 3.2L plus ongoing losses. D5W 180 cc/hr x 24h. 3. Septic shock, urosepsis. Hx of ESBL infxn. Abx per primary team & ID. F/u cultures. 4. Decubitus ulcer. Per primary team. 5. Hypertension. Bp variable. Monitor. 6. Metabolic encephalopathy. Sepsis mngt as above. 7. HypoMg. Improved. Monitor/replete prn.
[2021-06-27] MEDS ORDERED: NA CHLORIDE 0.9% 250 ML ONE (07:34)
[2021-06-27] MEDS: APIXABAN 2.5 MG TABLET PO SCH ×2 (07:40→21:49)
[2021-06-27] MEDS: MEDIHONEY 44 ML TOPICAL TUBE TOP SCH (07:40)
[2021-06-27] MEDS: Meropenem 500 MG/100 ML BAG IV SCH (07:40)
[2021-06-27] MEDS ORDERED: KCL 20 MEQ/100 mL IVPB 20 MEQ/100 ML BAG IV SCH (09:00)
[2021-06-27] MEDS ORDERED: MAGNESIUM SULFATE 1 gm IVPB 1 GM/100 ML BAG IV ONE (09:00)
[2021-06-27 10:31] LABS: UR PROTEIN 75.4 mg/dL (<11.9); Urine Protein/Creatinine Ratio 2.36 ratio (<0.15)
--- NOTE | 2021-06-27 11:54 | P.PN ---
Subjective Date of Service: 06/27/21 Primary Care Provider: prison doctor Chief Complaint: Sepsis, UTI Patient seen examined at bedside, WBC back within normal range. Patient remains afebrile. Review of Systems 10-point ROS is otherwise unremarkable Physical Examination - Vital Signs Temperature: 97.0 F Blood Pressure: 105/50 Pulse: 79 Respirations: 28 Pulse Ox (%): 98 - Studies 06/25/21 03:30 Catheterized Urine [place] Count - Final >100,000 CFU/ML. 06/25/21 03:30 Catheterized Urine - Final Proteus Mirabilis 06/25/21 04:23 Blood - Blood Aerobic Blood Culture - Final Proteus Mirabilis 06/25/21 04:23 Blood - Blood Anaerobic Blood Culture - Final Proteus Mirabilis 06/25/21 04:23 Blood - Blood Gram Stain - Final 06/25/21 03:52 Blood - Blood Aerobic Blood Culture - Final Proteus Mirabilis 06/25/21 03:52 Blood - Blood Blood Culture Gram Stain - Final 06/25/21 03:52 Blood - Blood Anaerobic Blood Culture - Final Proteus Mirabilis 06/25/21 03:52 Blood - Blood Gram Stain - Final Microbiology Data (last 24 hrs): 06/25/21 03:30 Catheterized Urine [place] Count - Final >100,000 CFU/ML. 06/25/21 03:30 Catheterized Urine - Final Proteus Mirabilis 06/25/21 04:23 Blood - Blood Aerobic Blood Culture - Final Proteus Mirabilis 06/25/21 04:23 Blood - Blood Anaerobic Blood Culture - Final Proteus Mirabilis 06/25/21 04:23 Blood - Blood Gram Stain - Final 06/25/21 03:52 Blood - Blood Aerobic Blood Culture - Final Proteus Mirabilis 06/25/21 03:52 Blood - Blood Blood Culture Gram Stain - Final 06/25/21 03:52 Blood - Blood Anaerobic Blood Culture - Final Proteus Mirabilis 06/25/21 03:52 Blood - Blood Gram Stain - Final Assessment And Plan - Plan Physical exam: General: Obese, awake, alert. HEENT: Atraumatic, Normocephalic Neck: Supple, 2+ carotid pulse no bruit Respiratory: Other (Symmetric expansion, no acute distress) Cardiovascular: Irregular heart rate/rhythm Capillary refill: <2 Seconds Gastrointestinal: Normal bowel sounds, Soft and benign Integumentary: Pressure ulcer (Stage IV decubitus pressure ulcer. Marni wound tissue with excoriation, and purple/red discoloration. Right heel unstageable pressure ulcer: Base of wound 100% eschar tissue on) Conclusions/Impression: Antibiotics: Rocephin Start: 06/27 Meropenem Start: 06/25 Stop: 06/27 Assessment/plan Urosepsis Urinalysis grossly positive, urine culture growing Proteus mirabilis. Blood cultures also growing Proteus mirabilis. Repeat blood cultures obtained on 06/27 pending. Culture shows susceptibility to Rocephin, as such Rocephin started and meropenem DC. Continue for 7 days following a negative blood culture report. Acute metabolic encephalopathy Mentation improving, continue current antibiotics. Leukocytosis Resolved Sacral decubitus ulcer stage IV Wound care: Wound VAC 125 mmHg pressure, intermittent. Change Q Wednesday. Offload with wedge fellows, recommend repositioning patient bed every 2 hr during waking hr. Low air loss mattress in place. Right heel unstageable pressure ulcer Wound care: [place] with Betadine and cover with island dressing. Change daily or p.r.n. if soiled removed. Protect heels with heel booties. Protein caloric malnutrition Low albumin at 1.7. Recommend supplemental Ensure protein drinks. Proper nutrition needed for adequate wound healing. EMERY History of seizures Anemia -medical management per primary team -continue monitor CBC and BMP -continue to monitor signs of infection -plan of care discussed with Dr. Patel Thank you for consultation.
--- NOTE | 2021-06-27 14:33 | P.PN ---
Subjective Date of Service: 06/27/21 Primary Care Provider: [facility] Chief Complaint: Sepsis, UTI Patient is awake. Occasionally communicates Blood pressure has been stable. No fever. Physical Examination - Vital Signs Temperature: 97.9 F Blood Pressure: 110/59 Pulse: 74 Respirations: 30 Pulse Ox (%): 98 - Physical Exam General: In no apparent distress, Other (Awake) HEENT: Mucous membr. moist/pink Neck: JVD not distended Respiratory: Clear to auscultation bilaterally, Normal air movement Cardiovascular: Regular rate/rhythm, Normal S1 S2, Edema (Trace bilateral lower extremity edema) Gastrointestinal: Normal bowel sounds, Soft and benign, Non-distended, No tenderness Musculoskeletal: No swelling Neurological: Other (Moves all extremities.) - Studies Microbiology Data (last 24 hrs): 06/25/21 03:30 Catheterized Urine [place] Count - Final >100,000 CFU/ML. 06/25/21 03:30 Catheterized Urine - Final Proteus Mirabilis 06/25/21 04:23 Blood - Blood Aerobic Blood Culture - Final Proteus Mirabilis 06/25/21 04:23 Blood - Blood Anaerobic Blood Culture - Final Proteus Mirabilis 06/25/21 04:23 Blood - Blood Gram Stain - Final 06/25/21 03:52 Blood - Blood Aerobic Blood Culture - Final Proteus Mirabilis 06/25/21 03:52 Blood - Blood Blood Culture Gram Stain - Final 06/25/21 03:52 Blood - Blood Anaerobic Blood Culture - Final Proteus Mirabilis 06/25/21 03:52 Blood - Blood Gram Stain - Final Assessment And Plan - Current Problems (Diagnosis) (1) Septic shock Current Visit: Yes Status: Acute (2) Acute renal failure Current Visit: No Status: Acute (3) UTI (urinary tract infection) Current Visit: No Status: Acute (4) Alzheimer's dementia Onset Date: 03/08/18 Current Visit: No Status: Chronic (5) Chronic a-fib Current Visit: No Status: Chronic (6) History of seizure disorder Onset Date: 03/08/18 Current Visit: No Status: Chronic (7) Decubitus ulcer of buttock Current Visit: Yes Status: Acute - Plan All blood culture bottles growing Proteus sensitive to multiple antibiotics.' Infectious disease input appreciated. Antibiotics changed to IV Rocephin. Leukocytosis resolved. Blood cultures repeated today. Altered mental status improved. EMERY continue to improve. Blood pressure has improved, patient is currently normotensive and stable. Nephrology input appreciated. Continue IV hydration. He is tolerating mechanical soft diet. .Local wound care.
[2021-06-27] MEDS: D5W 1,000 ML IV SCH ×2 (16:30→21:48)
[2021-06-27] MEDS: JUVEN PACKET PO SCH (21:48)
[2021-06-28] MEDS: D5W 1,000 ML IV SCH ×4 (03:33→18:38)
[2021-06-28 06:12] LABS: Absolute Lymphocytes (CBC) 0.7 K/uL (0.7-4.9); Basophils % 0.5 % (0-1.3); Hematocrit 35.7 % (39.6-49.0); Lymphocytes % 9.3 % (15.3-44.8); MPV 8.6 fL (7.6-11.3); RBC Red Blood Cell Count 3.66 M/uL (4.33-5.43)
[2021-06-28 06:37] LABS: Albumin 1.3 g/dL (3.4-5.0); Bilirubin Total 0.2 mg/dL (0.2-1.0); Magnesium 1.5 mg/dL (1.8-2.4); Phosphorus 2.5 mg/dL (2.5-4.9); Potassium 3.6 mmol/L (3.5-5.1); Protein, Total 5.6 g/dL (6.4-8.2)
[2021-06-28] MEDS ORDERED: NA CHLORIDE 0.9% 250 ML ONE (08:08)
[2021-06-28] MEDS: CEFTRIAXONE 2,000 MG in NA CHLORIDE 0.9% 100 ML IV SCH (08:13)
[2021-06-28] MEDS: JUVEN PACKET PO SCH ×2 (08:14→22:16)
[2021-06-28] MEDS: APIXABAN 2.5 MG TABLET PO SCH ×2 (08:14→22:16)
[2021-06-28] MEDS ORDERED: KCL 20 MEQ/100 mL IVPB 20 MEQ/100 ML BAG IV ONE (08:15)
[2021-06-28] MEDS ORDERED: Magnesium Sulfate 2gm IVPB 2 G/50 ML BAG IV ONE ×2 (08:15→13:51)
--- NOTE | 2021-06-28 12:37 | EKG ---
Test Date: 2021-06-27 Test Time: 04:51:27 Boarding House Cook: DAVID MEASUREMENT RESULTS: Intervals: Rate: 94 [place]: QRSD: 120 QT: 378 QTc: 472 [place]: P: [place]: QRS: -72 T: 16 INTERPRETIVE STATEMENTS: Atrial fibrillation Right bundle branch block Left anterior fascicular block Bifascicular block Abnormal ECG Compared to ECG 06/25/2021 03:23:04 Right bundle-branch block now present Left anterior fascicular block now present Bifascicular block now present Sinus tachycardia no longer present Fusion complex(es) no longer present Left-axis deviation no longer present Incomplete right bundle-branch block no longer present Myocardial infarct finding no longer present Electronically Signed On 06-28-21 12:35:43 TUBE REBUILDER by Paco Bond
--- NOTE | 2021-06-28 14:32 | P.PN ---
Subjective Date of Service: 06/28/21 Primary Care Provider: [facility] doctor Chief Complaint: Sepsis, UTI Patient has no new complain. He is eating well, afebrile, with stable blood pressure Physical Examination - Vital Signs Temperature: 97.1 F Blood Pressure: 124/57 Pulse: 98 Respirations: 20 Pulse Ox (%): 95 - Physical Exam General: In no apparent distress, Obese, Other (Awake) HEENT: Mucous membr. moist/pink Neck: JVD not distended Respiratory: Clear to auscultation bilaterally, Normal air movement Cardiovascular: Regular rate/rhythm, Normal S1 S2 Gastrointestinal: Soft and benign, Non-distended, No tenderness Musculoskeletal: No contractures Neurological: Other (Patient moves both upper extremities) Assessment And Plan - Current Problems (Diagnosis) (1) Septic shock Current Visit: Yes Status: Acute (2) Acute renal failure Current Visit: No Status: Acute (3) UTI (urinary tract infection) Current Visit: No Status: Acute (4) Alzheimer's dementia Onset Date: 03/08/18 Current Visit: No Status: Chronic (5) Chronic a-fib Current Visit: No Status: Chronic (6) History of seizure disorder Onset Date: 03/08/18 Current Visit: No Status: Chronic (7) Decubitus ulcer of buttock Current Visit: Yes Status: Acute (8) Hypernatremia Current Visit: Yes Status: Acute - Plan All blood culture bottles growing Proteus sensitive to multiple antibiotics.' Repeat blood culture is pending Infectious disease is following. Continue IV Rocephin. Leukocytosis resolved. Altered mental status improved. EMERY almost resolved. Blood pressure has improved, patient is currently normotensive and stable. Nephrology is following. Continue IV hydration. Nephrology is managing fluids. Hypernatremia resolved He is tolerating mechanical soft diet. He has good oral intake. .Local wound care.
--- NOTE | 2021-06-28 15:58 | PN ---
Date of Progress Note: 06/28/2021 Subjective: The patient was admitted with septic shock secondary to urosepsis and decubitus ulcer infection. The patient required Levophed, after that he weaned after fluid resuscitation. Physical Examination: Vital Signs: Blood pressure 124/57, pulse of 98, afebrile. The patient had good urine output of 2200. Positive of 1600. Chest: Clear to auscultation. Heart: S1, S2. Systolic murmur. Abdomen: Soft, nontender. Extremities: Trace edema. Neuro: The patient is alert. No focality, resting tremor. Laboratory Data: WBC 8, H and H 11.8/35.7. Sodium 141, potassium 3.6, bicarb 23, BUN 36, creatinine 1.3, GFR of 51, calcium 7.9, phosphorus 2.5, magnesium 1.5, albumin 1.3, corrected calcium is 10. Current Medications: The patient on is include: 1. Ceftriaxone. 2. Eliquis. 3. Tylenol. 4. D5 at 150. Assessment And Plan: 1. Acute kidney injury secondary to prerenal poor perfusion acute tubular necrosis/toxic acute tubular necrosis secondary to sepsis. Kidney function has been improved significantly back to his baseline. We will decrease IV fluid. 2. Hypernatremia. Total body weight of 127, total body deficit around 3 L. The patient to start eating. I am going to decrease IV fluid and we will monitor. 3. Hypomagnesemia. We will supplement. 4. Urinary tract infection, urosepsis secondary to Pseudomonas. We will follow up with the primary and ID. 5. Deconditioning. Continue PT, OT. time spend exam the patient face to face , placing order , reviewing the data of lab and radiology , discussing with the staff including nusing , discussing with other rodgers member including hospitalist and other qa consultant 45 min EMILE/NAYAN Voice ID: [id number] Report ID: [id number] MTDNelia
[2021-06-29 05:54] LABS: Basophils % 0.7 % (0-1.3); Hematocrit 37.5 % (39.6-49.0); Lymphocytes % 11.2 % (15.3-44.8); MPV 8.5 fL (7.6-11.3); RBC Red Blood Cell Count 3.89 M/uL (4.33-5.43)
[2021-06-29] MEDS: D5W 1,000 ML IV SCH (06:08)
[2021-06-29 06:15] LABS: Albumin 1.5 g/dL (3.4-5.0); Bilirubin Total 0.2 mg/dL (0.2-1.0); Magnesium 1.9 mg/dL (1.8-2.4); Phosphorus 2.8 mg/dL (2.5-4.9); Potassium 3.8 mmol/L (3.5-5.1); Protein, Total 6.3 g/dL (6.4-8.2)
[2021-06-29] MEDS: APIXABAN 2.5 MG TABLET PO SCH ×2 (08:06→20:50)
[2021-06-29] MEDS: JUVEN PACKET PO SCH ×2 (08:06→20:50)
[2021-06-29] MEDS ORDERED: POTASSIUM 25 MEQ EFFERV TAB PO ONE (09:00)
[2021-06-29] MEDS: CEFTRIAXONE 2,000 MG in NA CHLORIDE 0.9% 100 ML IV SCH (09:59)
[2021-06-29] MEDS ORDERED: MAGNESIUM SULFATE 1 gm IVPB 1 GM/100 ML BAG IV ONE (13:20)
--- NOTE | 2021-06-29 13:34 | P.PN ---
Subjective Date of Service: 06/29/21 Primary Care Provider: [facility] doctor Chief Complaint: Sepsis, UTI Patient doing much better today. He is eating well, afebrile, with stable blood pressure. Physical Examination - Vital Signs Temperature: 97.0 F Blood Pressure: 134/63 Pulse: 75 Respirations: 28 Pulse Ox (%): 98 - Physical Exam General: In no apparent distress HEENT: Mucous membr. moist/pink Neck: JVD not distended Respiratory: Clear to auscultation bilaterally, Normal air movement Cardiovascular: No edema, Regular rate/rhythm, Normal S1 S2 Gastrointestinal: Normal bowel sounds, Soft and benign, Non-distended Neurological: Dementia Assessment And Plan - Current Problems (Diagnosis) (1) Septic shock Current Visit: Yes Status: Acute (2) Acute renal failure Current Visit: No Status: Acute (3) UTI (urinary tract infection) Current Visit: No Status: Acute (4) Alzheimer's dementia Onset Date: 03/08/18 Current Visit: No Status: Chronic (5) Chronic a-fib Current Visit: No Status: Chronic (6) History of seizure disorder Onset Date: 03/08/18 Current Visit: No Status: Chronic (7) Decubitus ulcer of buttock Current Visit: Yes Status: Acute (8) Hypernatremia Current Visit: Yes Status: Acute - Plan All blood culture bottles growing Proteus sensitive to multiple antibiotics. Repeat blood culture: Coagulase-negative staph. This is likely a skin contaminant. Patient has clinically improved. Infectious disease is following. Continue IV Rocephin. We will repeat blood cultures. Leukocytosis resolved. Altered mental status improved. EMERY resolved. Blood pressure has improved, patient is currently normotensive and stable. Nephrology is following. Continue IV hydration. Nephrology is managing fluids. Hypernatremia resolved He is tolerating mechanical soft diet. He has good oral intake. .Local wound care.
--- NOTE | 2021-06-29 14:44 | PN ---
Date of Progress Note: 06/29/2021 Subjective: The patient was admitted with acute kidney injury secondary to toxic ATN, poor perfusion, ATN septic shock secondary to urosepsis with severe acidosis. The patient after hydration bicarb was discontinued. Kidney function has been improved significantly. The patient was switched to cephalosporin. The patient is feeling better. Physical Examination: Vital Signs: Blood pressure 134/63, pulse of 75, afebrile. Chest: Clear to auscultation. Heart: S1, S2. Regular. Systolic murmur. Abdomen: Soft, nontender. Extremities: Trace edema. Neurologic: Alert. No focality. Laboratory Data: WBC 9.2, H and H 12.4/37.5. Sodium 141, potassium 3.8, bicarb 24, BUN 33, creatinine 1.1, GFR of 60, calcium 8.5, phosphorus 2.8, and magnesium 1.9. Current Medications: The patient on include: 1. Ceftriaxone. 2. Eliquis. 3. Tylenol. 4. Zofran. 5. D5. Assessment And Plan: 1. Acute kidney injury secondary to poor perfusion, acute tubular necrosis, toxic acute tubular necrosis, recovered, resolved. Looked to me on the normal volume side. I am going to discontinue intravenous fluid. We will continue to monitor the patient. 2. Septic shock secondary to urosepsis, secondary to Proteus mirabilis complicated with bacteremia. Continue current treatment. Follow up with Infectious Disease. 3. Hypokalemia, hypomagnesemia. We will supplement. 4. Acidosis secondary to renal failure, recovered, resolved. 5. Hypernatremia, resolved. time spend exam the patient face to face , placing order , reviewing the data of lab and radiology , discussing with the staff including nusing , discussing with other rodgers member including hospitalist and other product marketing consultant 45 min BEN Voice ID: [id number] Report ID: [id number] LINDA
--- NOTE | 2021-06-29 15:41 | PN ---
Subjective: No overnight complications. Objective: Vital Signs: Temperature 97, pulse 75, respirations 18, blood pressure 134/63. Lungs: Basal crackles. Heart: S1, S2. Regular. Abdomen: Soft, nontender. Bowel sounds present. Extremities: No edema. Laboratory Data: WBC 9.2, hemoglobin 12.4, platelets are 224. Chemistry shows sodium 141, potassium 3.8, chloride 110, bicarb 24, BUN 33, creatinine 1.1, glucose is 96. Albumin level is 1.5. Assessment And Plan: 1.Urosepsis. 2.Acute metabolic encephalopathy. Leukocytosis is improved. 3.Sacral decubitus stage IV right heel unstageable pressure wound. 4.Protein calorie malnourishment. Consider long-term acute care. Continue supportive care. The martin worley is currently on Rocephin. We will follow the patient as needed. NF/MODL Voice ID: [id number] Report ID: [id number]
[2021-06-29] MEDS: NS KCL 20MEQ 20 MEQ/1,000 ML BAG IV SCH (20:49)
[2021-06-30 04:54] LABS: Absolute Lymphocytes (CBC) 1.3 K/uL (0.7-4.9); Basophils % 0.7 % (0-1.3); Hematocrit 34.9 % (39.6-49.0); Lymphocytes % 16.6 % (15.3-44.8); MPV 8.8 fL (7.6-11.3); RBC Red Blood Cell Count 3.66 M/uL (4.33-5.43)
[2021-06-30 05:00] LABS: Albumin 1.6 g/dL (3.4-5.0); Bilirubin Total 0.2 mg/dL (0.2-1.0); Magnesium 1.6 mg/dL (1.8-2.4); Phosphorus 2.7 mg/dL (2.5-4.9); Protein, Total 6.2 g/dL (6.4-8.2)
[2021-06-30 05:30] VITALS: BMI 40.4
[2021-06-30] MEDS: NS KCL 20MEQ 20 MEQ/1,000 ML BAG IV SCH ×2 (05:59→18:12)
[2021-06-30] MEDS ORDERED: MAGNESIUM SULFATE 1 gm IVPB 1 GM/100 ML BAG IV ONE (06:02)
[2021-06-30] MEDS: CEFTRIAXONE 2,000 MG in NA CHLORIDE 0.9% 100 ML IV SCH (09:36)
[2021-06-30] MEDS: JUVEN PACKET PO SCH ×2 (09:36→20:18)
[2021-06-30] MEDS: APIXABAN 2.5 MG TABLET PO SCH ×2 (09:36→20:18)
--- NOTE | 2021-06-30 11:07 | P.PN ---
Subjective Date of Service: 06/30/21 Primary Care Provider: [facility] doctor Chief Complaint: Sepsis, UTI Patient seen examined at bedside, repeat blood cultures growing cons, likely contaminant. Additional repeat cultures pending. Review of Systems 10-point ROS is otherwise unremarkable Physical Examination - Vital Signs Temperature: 97.3 F Blood Pressure: 109/76 Pulse: 87 Respirations: 18 Pulse Ox (%): 97 - Studies Microbiology 06/25/21 03:30 Catheterized Urine [place] Count - Final >100,000 CFU/ML. 06/25/21 03:30 Catheterized Urine - Final Proteus Mirabilis 06/25/21 04:23 Blood - Blood Aerobic Blood Culture - Final Proteus Mirabilis 06/25/21 04:23 Blood - Blood Anaerobic Blood Culture - Final Proteus Mirabilis 06/25/21 04:23 Blood - Blood Gram Stain - Final 06/25/21 03:52 Blood - Blood Aerobic Blood Culture - Final Proteus Mirabilis 06/25/21 03:52 Blood - Blood Blood Culture Gram Stain - Final 06/25/21 03:52 Blood - Blood Anaerobic Blood Culture - Final Proteus Mirabilis 06/25/21 03:52 Blood - Blood Gram Stain - Final Assessment And Plan - Plan Physical exam: General: Obese, awake, alert. HEENT: Atraumatic, Normocephalic Neck: Supple, 2+ carotid pulse no bruit Respiratory: Other (Symmetric expansion, no acute distress) Cardiovascular: Irregular heart rate/rhythm Capillary refill: <2 Seconds Gastrointestinal: Normal bowel sounds, Soft and benign Integumentary: Pressure ulcer (Stage IV decubitus pressure ulcer. Marni wound tissue with excoriation, and purple/red discoloration. Right heel unstageable pressure ulcer: Base of wound 100% eschar tissue ) Conclusions/Impression: Antibiotics: Rocephin Start: 06/27 Meropenem Start: 06/25 Stop: 06/27 Assessment/plan Urosepsis Urinalysis grossly positive, urine culture growing Proteus mirabilis. Blood cultures also growing Proteus mirabilis. Culture shows susceptibility to Rocephin, as such Rocephin started and meropenem DC. Continue for 7 days following a negative blood culture report. Repeat blood cultures obtained on 06/27 growing cons, likely contaminant. Additional repeat cultures performed on 06/29 pending. Acute metabolic encephalopathy Mentation improving, continue current antibiotics. Leukocytosis Resolved Sacral decubitus ulcer stage IV Wound care: Wound VAC 125 mmHg pressure, intermittent. Change Q Wednesday. Offload with wedge pillows recommend repositioning patient bed every 2 hr during waking hr. Low air loss mattress in place. Right heel unstageable pressure ulcer Wound care: [place] with Betadine and cover with island dressing. Change daily or p.r.n. if soiled removed. Protect heels with heel booties. Protein caloric malnutrition Low albumin at 1.7. Recommend supplemental Ensure protein drinks. Proper nutrition needed for adequate wound healing. EMERY History of seizures Anemia -medical management per primary team -continue monitor CBC and BMP -continue to monitor signs of infection -plan of care discussed with Dr. Patel Thank you for consultation.
--- NOTE | 2021-06-30 14:46 | P.PN ---
Subjective Date of Service: 06/30/21 Primary Care Provider: long-term doctor Chief Complaint: Sepsis, UTI Patient doing much better today. He is eating well, afebrile. Physical Examination - Vital Signs Temperature: 96.2 F Blood Pressure: 116/55 Pulse: 78 Respirations: 20 Pulse Ox (%): 99 - Physical Exam General: Alert, In no apparent distress HEENT: Mucous membr. moist/pink Neck: JVD not distended Respiratory: Clear to auscultation bilaterally, Normal air movement Cardiovascular: No edema, Regular rate/rhythm, Normal S1 S2 Gastrointestinal: Soft and benign, Non-distended, No tenderness Musculoskeletal: No contractures Integumentary: Other (Stage IV sacral decubitus ulcer with wound VAC applied. Unstageable decubitus ulcer left heel) Neurological: Dementia Assessment And Plan - Current Problems (Diagnosis) (1) Septic shock Current Visit: Yes Status: Acute (2) Acute renal failure Current Visit: No Status: Acute (3) UTI (urinary tract infection) Current Visit: No Status: Acute (4) Alzheimer's dementia Onset Date: 03/08/18 Current Visit: No Status: Chronic (5) Chronic a-fib Current Visit: No Status: Chronic (6) History of seizure disorder Onset Date: 03/08/18 Current Visit: No Status: Chronic (7) Decubitus ulcer of buttock Current Visit: Yes Status: Acute (8) Hypernatremia Current Visit: Yes Status: Acute - Plan All blood culture bottles growing Proteus sensitive to multiple antibiotics. Repeat blood culture: Coagulase-negative staph. This is likely a skin contaminant. Most recent blood culture has yielded no growth. Sepsis reloved. Patient has clinically improved. Infectious disease is following. Continue IV Rocephin. Leukocytosis resolved. Altered mental status improved. EMERY resolved. Blood pressure has improved, patient is currently normotensive and stable. Nephrology is following. Hypernatremia resolved. Patient is eating well. Discontinue IV fluid. He is tolerating mechanical soft diet. He has good oral intake. Local wound care-wound VAC in place. Possible discharge to the [facility] in a.m. patient slated for 7 days of IV Rocephin from today.
--- NOTE | 2021-07-01 00:21 | PN ---
Date of Progress Note: 06/30/2021 Chief Complaint: Acute kidney injury secondary to acute tubular necrosis due to septic shock and wit h underlying urosepsis. Subjective: The patient was found to have severe metabolic acidosis. He completed bicarbonate drip and the acidosis at this point is controlled. The patient is on cephalosporin for urinary tract infection with urosepsis. Review of Systems: Denies fevers or chills. Objective: Lungs: Clear to auscultation bilaterally. Heart: S1, S2. Abdomen: Soft, benign. Extremities: Minimal peripheral edema. Impression And Plan: 1.Acute kidney injury secondary to acute tubular necrosis in setting of sepsis and volume depletion. Continue adequate hydration. Renal function has improved. The patient completed IV fluids. 2.Septic shock secondary to Proteus mirabilis. 3.complicated with bacteremia and urosepsis. 4.Hypokalemia, hypomagnesemia. Continue replacement. 5.Acidosis to acute kidney injury, resolved and was treated with sodium bicarbonate drip. 6.Hypernatremia, resolved. Continue p.o. hydration. The patient tolerates p.o. intake. EB/MODL Voice ID: [id number] Report ID: [id number]
[2021-07-01 05:13] LABS: Vitamin D 1,25-Dihydroxy Total 10 pg/mL (18-72); Vitamin D,1,25-OH2, D2 <8 pg/mL
[2021-07-01] MEDS: NS KCL 20MEQ 20 MEQ/1,000 ML BAG IV SCH ×3 (05:21→22:00)
[2021-07-01 05:23] LABS: Absolute Lymphocytes (CBC) 1.5 K/uL (0.7-4.9); Basophils % 0.5 % (0-1.3); Hematocrit 33.9 % (39.6-49.0); Lymphocytes % 18.3 % (15.3-44.8); MPV 8.3 fL (7.6-11.3); RBC Red Blood Cell Count 3.52 M/uL (4.33-5.43)
[2021-07-01 05:50] LABS: Magnesium 1.7 mg/dL (1.8-2.4)
[2021-07-01] MEDS ORDERED: MAGNESIUM SULFATE 1 gm IVPB 1 GM/100 ML BAG IV ONE ×2 (06:01→06:04)
[2021-07-01] MEDS: CEFTRIAXONE 2,000 MG in NA CHLORIDE 0.9% 100 ML IV SCH (08:23)
[2021-07-01] MEDS: APIXABAN 2.5 MG TABLET PO SCH ×2 (08:23→20:47)
[2021-07-01] MEDS: JUVEN PACKET PO SCH ×2 (08:24→20:46)
--- NOTE | 2021-07-01 11:01 | P.PN ---
Subjective Date of Service: 07/01/21 Primary Care Provider: [facility] doctor Chief Complaint: Sepsis, UTI Patient seen examined at bedside, no acute events. Review of Systems 10-point ROS is otherwise unremarkable Physical Examination - Vital Signs Temperature: 97.4 F Blood Pressure: 113/70 Pulse: 71 Respirations: 18 Pulse Ox (%): 98 - Studies Microbiology 06/25/21 03:30 Catheterized Urine [place] Count - Final >100,000 CFU/ML. 06/25/21 03:30 Catheterized Urine - Final Proteus Mirabilis 06/25/21 04:23 Blood - Blood Aerobic Blood Culture - Final Proteus Mirabilis 06/25/21 04:23 Blood - Blood Anaerobic Blood Culture - Final Proteus Mirabilis 06/25/21 04:23 Blood - Blood Gram Stain - Final 06/25/21 03:52 Blood - Blood Aerobic Blood Culture - Final Proteus Mirabilis 06/25/21 03:52 Blood - Blood Blood Culture Gram Stain - Final 06/25/21 03:52 Blood - Blood Anaerobic Blood Culture - Final Proteus Mirabilis 06/25/21 03:52 Blood - Blood Gram Stain - Final Assessment And Plan - Plan Physical exam: General: Obese, awake, alert. HEENT: Atraumatic, Normocephalic Neck: Supple, 2+ carotid pulse no bruit Respiratory: Other (Symmetric expansion, no acute distress) Cardiovascular: Irregular heart rate/rhythm Capillary refill: <2 Seconds Gastrointestinal: Normal bowel sounds, Soft and benign Integumentary: Pressure ulcer (Stage IV decubitus pressure ulcer. Marni wound tissue with excoriation, and purple/red discoloration. Right heel unstageable pressure ulcer: Base of wound 100% eschar tissue ) Conclusions/Impression: Antibiotics: Rocephin Start: 06/27 Meropenem Start: 06/25 Stop: 06/27 Assessment/plan Urosepsis Urinalysis grossly positive, urine culture growing Proteus mirabilis. Blood cultures also growing Proteus mirabilis. Culture shows susceptibility to Rocephin, as such Rocephin started and meropenem DC. Continue for 7 days following a negative blood culture report. Repeat blood cultures obtained on 06/27 growing cons, likely contaminant. Additional repeat cultures performed on 06/29 shows no growth at 24 hr. Acute metabolic encephalopathy Mentation improving, continue current antibiotics. Leukocytosis Resolved Sacral decubitus ulcer stage IV Wound care: Wound VAC 125 mmHg pressure, intermittent. Change Q Wednesday. Offload with wedge pillows recommend repositioning patient bed every 2 hr during waking hr. Low air loss mattress in place. Right heel unstageable pressure ulcer Wound care: [place] with Betadine and cover with island dressing. Change daily or p.r.n. if soiled removed. Protect heels with heel booties. Protein caloric malnutrition Low albumin at 1.7. Recommend supplemental Ensure protein drinks. Proper nutrition needed for adequate wound healing. EMERY History of seizures Anemia -medical management per primary team -continue monitor CBC and BMP -continue to monitor signs of infection -plan of care discussed with Dr. Patel Thank you for consultation.
[2021-07-01] MEDS: D5W 1,000 ML IV SCH (14:11)
--- NOTE | 2021-07-01 14:51 | P.PN ---
Date of Service: 07/01/21 Subjective: No acute events overnight. Patient reports continued improvement, remains afebrile ROS: 10 point ROS as noted above, otherwise negative Physical exam GEN: Alert, orientedx2, NAD HEENT: Normal conjunctiva, sclera anicteric CV: Regular rate and rhythm, no edema Pulm: Nonlabored respirations on room air ABD: Soft, nontender, nondistended MSK: No joint tenderness Integumentary: stage IV sacral decubitus ulcer - wound vac in place Neuro: Dementia, with some confusion / memory impairment Problem List Septic shock secondary to urinary tract infection, Proteus bacteremia Acute renal failure UTI Alzheimer dementia Chronic A. fib History of seizure disorder Decubitus ulcer buttocks Hypernatremia ID consulted, sensitivities reviewed, continue IV Rocephin. End date: 07/05 Patient has central line (femoral) placed in ED on admission, needs PICC line Leukocytosis resolved EMERY resolved Hypernatremia resolved Appetite/p.o. intake improving Local wound care, continue wound VAC as ordered/recommended by ID overall improving / more stable anticipate dc back to [facility] in next day or so needs PICC and wound vac Time Spent Managing Pts Care (In Minutes): 35
--- NOTE | 2021-07-01 17:36 | PN ---
Date of Progress Note: 07/01/2021 Subjective: The patient was admitted with acute kidney injury, anasarca secondary to poor response to diuresis. The patient was started on Lasix, recovered. The patient had UTI with septic shock. Physical Examination: Vital Signs: Blood pressure 126/59, pulse of 80, afebrile. The patient had good urine output of 2400. Chest: Clear to auscultation. Heart: S1, S2. Regular. Abdomen: Soft, nontender. Extremity: Trace edema. Neurologic: Alert. No focality. Laboratory Data: H and H .9. Sodium 147, potassium 4, bicarb 24, BUN 38, creatinine 1.1, GFR of 59, calcium 8.3, magnesium 1.7, albumin 1.6, corrected calcium is 10.3. Current Medications: The patient on include; 1. Ceftriaxone. 2. Eliquis. 3. Tylenol. 4. Magnesium oxide. Assessment And Plan: 1. Acute kidney injury secondary to toxic ATN, poor perfusion, ATN, recovered, resolved. Looked to me normal volume. Keep holding IV fluid. 2. Septic shock, urosepsis secondary to Proteus mirabilis. Follow up with ID. Continue current antibiotic, dose appropriate. 3. Hypernatremia. I am going to start the patient on D5 and we will follow up. 4. Acidosis secondary to poor perfusion, ATN, recovered, resolved. 5. Hypokalemia, resolved; hypomagnesemia, we will supplement. 6. Deconditioning. Continue PT/OT. Okay from the Renal standpoint for PICC line placement. time spend exam the patient face to face , placing order , reviewing the data of lab and radiology , discussing with the staff including nusing , discussing with other rodgers member including hospitalist and other talent development consultant 45 min BEN Voice ID: [id number] Report ID: [id number] LINDA
[2021-07-01 18:51] LABS: Albumin, (SPE) 2.1 g/dL (3.8-4.8); Alpha-1-Globulins 0.5 g/dL (0.2-0.3); Alpha-2-Globulins 1.1 g/dL (0.5-0.9); INTERPRETATION REPORT
[2021-07-02 00:04] VITALS: O2SAT 94
[2021-07-02 05:06] LABS: Albumin 1.6 g/dL (3.4-5.0); Magnesium 1.5 mg/dL (1.8-2.4); Phosphorus 2.5 mg/dL (2.5-4.9); Potassium 4.1 mmol/L (3.5-5.1)
[2021-07-02] MEDS ORDERED: Magnesium Sulfate 2gm IVPB 2 G/50 ML BAG IV ONE ×2 (06:00→11:54)
--- NOTE | 2021-07-02 06:01 | P.PN ---
Date of Service: 07/02/21 Subjective: ROS: 10 point ROS as noted above, otherwise negative Physical exam GEN: Alert, orientedx2, NAD HEENT: Normal conjunctiva, sclera anicteric CV: Regular rate and rhythm, no edema Pulm: Nonlabored respirations on room air ABD: Soft, nontender, nondistended MSK: No joint tenderness Integumentary: stage IV sacral decubitus ulcer - wound vac in place Neuro: Dementia, with some confusion / memory impairment Problem List Septic shock secondary to urinary tract infection, Proteus bacteremia Acute renal failure UTI Alzheimer dementia Chronic A. fib History of seizure disorder Decubitus ulcer buttocks Hypernatremia ID consulted, sensitivities reviewed, continue IV Rocephin. End date: 07/05 Patient has central line (femoral) placed in ED on admission, needs PICC line Leukocytosis resolved EMERY resolved Hypernatremia resolved Appetite/p.o. intake improving Local wound care, continue wound VAC as ordered/recommended by ID overall improving / more stable anticipate dc back to intermediate in next day or so needs PICC and wound vac Time Spent Managing Pts Care (In Minutes): 35
[2021-07-02] MEDS: NS KCL 20MEQ 20 MEQ/1,000 ML BAG IV SCH (08:00)
[2021-07-02] MEDS: JUVEN PACKET PO SCH (09:00)
[2021-07-02] MEDS: D5W 1,000 ML IV SCH (10:00)
--- NOTE | 2021-07-02 11:11 | P.PN ---
Subjective Date of Service: 07/02/21 Primary Care Provider: assisted doctor Chief Complaint: Sepsis, UTI Patient seen examined at bedside, the patient has left arm midline placed, and a and 1 line was placed. Nursing staff will call snf went to determine when line was placed. Review of Systems 10-point ROS is otherwise unremarkable Physical Examination - Vital Signs Temperature: 97.7 F Blood Pressure: 136/65 Pulse: 63 Respirations: 22 Pulse Ox (%): 97 - Studies Laboratory Last Values WBC 7.40 K/uL (4.3-10.9) 06/25/21 04:23 RBC 4.12 M/uL (4.33-5.43) L 06/25/21 04:23 Hgb 13.3 g/dL (13.6-17.9) L 06/25/21 04:23 Hct 41.6 % (39.6-49.0) 06/25/21 04:23 MCV 100.9 fL (80-100) H 06/25/21 04:23 MCH 32.2 pg (27.0-35.0) 06/25/21 04:23 MCHC 31.9 g/dL (32.0-36.0) L 06/25/21 04:23 RDW 13.9 % (12.1-15.2) 06/25/21 04:23 Plt Count 292 K/uL (152-406) 06/25/21 04:23 MPV 8.5 fL (7.6-11.3) 06/25/21 04:23 Neutrophils % 97.0 % (41.7-73.7) H 06/25/21 04:23 Lymphocytes % 2.1 % (15.3-44.8) L 06/25/21 04:23 Monocytes % 0.8 % (3.3-12.3) L 06/25/21 04:23 Eosinophils % 0.0 % (0-4.4) 06/25/21 04:23 Basophils % 0.1 % (0-1.3) 06/25/21 04:23 Absolute Neutrophils 7.2 K/uL (1.8-8.0) 06/25/21 04:23 Segmented Neutrophils 81 % (40-80) H 06/25/21 04:23 Band Neutrophils 17 % (0-1) H* 06/25/21 04:23 Absolute Lymphocytes 0.2 K/uL (0.7-4.9) L 06/25/21 04:23 Lymphocytes 1 % (15-42) L 06/25/21 04:23 Monocytes 1 % (0-10) 06/25/21 04:23 Absolute Monocytes 0.1 K/uL (0.1-1.3) 06/25/21 04:23 Absolute Eosinophils 0.0 K/uL (0-0.5) 06/25/21 04:23 Absolute Basophils 0.0 K/uL (0-0.5) 06/25/21 04:23 Platelet Estimate Adeq 06/25/21 04:23 Giant Platelets Few 06/25/21 04:23 Morphology Comment Not seen (NOT SEEN) 06/25/21 04:23 PT 16.0 SECONDS (9.5-12.5) H 06/25/21 04:23 INR 1.39 06/25/21 04:23 APTT 27.4 SECONDS (24.3-36.9) 06/25/21 04:23 Sodium 151 mmol/L (136-145) H 06/25/21 04:23 Potassium 4.2 mmol/L (3.5-5.1) 06/25/21 04:23 Chloride 121 mmol/L (98-107) H* 06/25/21 04:23 Carbon Dioxide 19 mmol/L (21-32) L 06/25/21 04:23 BUN 69 mg/dL (7-18) H 06/25/21 04:23 Creatinine 4.28 mg/dL (0.55-1.3) H 06/25/21 04:23 Estimated GFR 13 mL/min (=/>90) L 06/25/21 04:23 Glucose 64 mg/dL (74-106) L 06/25/21 04:23 POC Glucose 70 mg/dL (65-120) 06/25/21 04:04 Lactic Acid 3.8 mmol/L (0.4-2.0) H 06/25/21 04:23 Calcium 7.9 mg/dL (8.5-10.1) L 06/25/21 04:23 Total Bilirubin 0.3 mg/dL (0.2-1.0) 06/25/21 04:23 Direct Bilirubin 0.2 mg/dL (0-0.2) 06/25/21 04:23 AST 10 U/L (15-37) L 06/25/21 04:23 ALT 9 U/L (12-78) L 06/25/21 04:23 Alkaline Phosphatase 108 U/L (45-117) 06/25/21 04:23 Creatine Kinase 39 U/L (39-308) 06/25/21 04:23 Rapid Troponin I 0.03 ng/mL (0.0-0.045) 06/25/21 04:23 Serum Total Protein 6.9 g/dL (6.4-8.2) 06/25/21 04:23 Albumin 1.7 g/dL (3.4-5.0) L 06/25/21 04:23 Globulin 5.2 g/dL (2.3-3.5) H 06/25/21 04:23 Albumin/Globulin Ratio 0.3 (1.1-1.8) L 06/25/21 04:23 Lipase 32 U/L (73-393) L 06/25/21 04:23 Procalcitonin 5.96 ng/mL (<0.050) H 06/25/21 04:23 Urine pH 8.5 (5.0-7.0) H 06/25/21 03:50 Ur Specific [place] 1.020 (1.005-1.030) 06/25/21 03:50 Glucose (UA)(Auto) Negative (Negative) 06/25/21 03:50 Urine Ketones Negative (Negative) 06/25/21 03:50 Urine Blood 3+ (Negative) H 06/25/21 03:50 Urine Nitrite Positive (Negative) H 06/25/21 03:50 Ur Leukocyte Esterase 3+ (Negative) H 06/25/21 03:50 Urine RBC <5 /HPF (NONE SEEN) 06/25/21 03:30 Urine WBC Tntc /HPF (<5) H 06/25/21 03:30 Ur Squamous Epith Cells <5 /HPF (NONE SEEN) 06/25/21 03:30 Triple Phos Crystals Moderate (NONE SEEN) H 06/25/21 03:30 Urine Bacteria >50 /HPF (NONE SEEN) H 06/25/21 03:30 Urine Culture Reflexed Not needed 06/25/21 03:30 Urine Total Protein 3+ (Negative) H 06/25/21 03:50 SARS-CoV-2 Rap RNA(RT-PCR) Negative (NEGATIVE) 06/25/21 03:34 Assessment And Plan - Plan Physical exam: General: Obese, awake, alert. HEENT: Atraumatic, Normocephalic Neck: Supple, 2+ carotid pulse no bruit Respiratory: Other (Symmetric expansion, no acute distress) Cardiovascular: Irregular heart rate/rhythm Capillary refill: <2 Seconds Gastrointestinal: Normal bowel sounds, Soft and benign Integumentary: Pressure ulcer (Stage IV decubitus pressure ulcer. Marni wound tissue with excoriation, and purple/red discoloration. Right heel unstageable pressure ulcer: Base of wound 100% eschar tissue ) Conclusions/Impression: Antibiotics: Rocephin Start: 06/27 Meropenem Start: 06/25 Stop: 06/27 Assessment/plan Urosepsis Urinalysis grossly positive, urine culture growing Proteus mirabilis. Blood cultures also growing Proteus mirabilis. Culture shows susceptibility to Rocephin, as such Rocephin started and meropenem DC. Continue for 7 days following a negative blood culture report. Repeat blood cultures obtained on 06/27 growing cons, likely contaminant. Additional repeat cultures performed on 06/29 shows no growth at 24 hr. Acute metabolic encephalopathy Mentation improving, continue current antibiotics. Leukocytosis Resolved Sacral decubitus ulcer stage IV Wound care: Wound VAC 125 mmHg pressure, intermittent. Change Q Wednesday. Offload with wedge pillows recommend repositioning patient bed every 2 hr during waking hr. Low air loss mattress in place. Right heel unstageable pressure ulcer Wound care: [place] with Betadine and cover with island dressing. Change daily or p.r.n. if soiled removed. Protect heels with heel booties. Protein caloric malnutrition Low albumin at 1.7. Recommend supplemental Ensure protein drinks. Proper nutrition needed for adequate wound healing. EMERY History of seizures Anemia -medical management per primary team -continue monitor CBC and BMP -continue to monitor signs of infection -plan of care discussed with Dr. Patel Thank you for consultation.
[2021-07-02] MEDS: APIXABAN 2.5 MG TABLET PO SCH (11:40)
[2021-07-02] MEDS: CEFTRIAXONE 2,000 MG in NA CHLORIDE 0.9% 100 ML IV SCH (11:40)
--- NOTE | 2021-07-02 12:35 | PN ---
Date of Progress Note: 07/02/2021 Subjective: The patient was admitted with acute kidney injury secondary to toxic ATN, poor perfusion , ATN, septic shock. The patient's after hydration kidney function has been improved, acidosis resol luis daniel. Physical Examination: Vital Signs: Blood pressure 136/65, pulse of 63, afebrile. The patient had good urine output of 4 L . Chest: Clear to auscultation. Heart: S1, S2. Regular. Abdomen: Soft, nontender. Extremities: Trace edema. Neuro: Alert. Follows command. No focality. Laboratory Data: WBC 8, H and H 11/33.9. Sodium 143, potassium 4.1, bicarb 23, BUN 34, creatinine 1 , GFR of 69, calcium 8.5, phosphorus 2.5, magnesium 1.5, albumin 1.6, corrected calcium is 10.5. Current Medications: The patient on include ceftriaxone, Eliquis, D5. Assessment And Plan: 1.Acute kidney injury secondary to toxic ATN, poor perfusion ATN, recovered, resolved. 2.Hyperkalemia, resolved. 3.Acidosis secondary to renal failure, resolved. 4.Urinary tract infection secondary to Pseudomonas. Continue current antibiotic. We will follow up with ID. 5.Atrial fibrillation. We will adjust Eliquis. 6.Hypomagnesemia. We will supplement. 7.Hypernatremia, resolved. EMILE/NAYAN Voice ID: [id number] Report ID: [id number]
[2021-07-02 17:36] VITALS: BP 114/70; TEMP 97.1
[2021-07-02] MEDS ORDERED: APIXABAN 5 MG TABLET PO SCH (21:00)
--- NOTE | 2021-07-02 21:02 | P.DS ---
Admission Date: 06/25/21 Discharge Date: 07/02/21 Primary Care Provider: half-way doctor Disposition: TRANSFER TO DETENTION Discharge Condition: GOOD Reason for Admission: Sepsis, UTI Consultations: Nephrology - Dr. Nicolas, Dr. Clinton Infectious Disease - Dr. Patel Procedures: CXR (06/25): IMPRESSION: Low lung volumes without focal airspace process. Renal U/S (06/25): FINDINGS: The right kidney measures 11 cm in long axis. The left kidney measures 10 cm in long axis. No hydronephrosis is present. The renal echogenicity is normal. Hypoechoic right renal lesion measuring 17 millimeters has mild increased through transmission and is probably a cyst when correlating with the prior CTs. IMPRESSION: No evidence of hydronephrosis. Probable right renal cyst. Problem List Septic shock secondary to urinary tract infection, Proteus bacteremia UTI Acute renal failure Alzheimer dementia Chronic A. fib History of seizure disorder Decubitus ulcer buttocks Hypernatremia Brief History of Present Illness: 76-year-old male with history of Alzheimer's dementia, atrial fibrillation on chronic anticoagulation therapy, hypertension, seizure disorder, bipolar disorder, dysphagia, history of urinary tract infections with decubitus ulcerations presents emergency department for fever, increasing altered mental status and suspected urinary tract infection from skilled nursing. half-way staff reported to EMS that patient was noted to have fever and that there appeared to be sediment in his urine, patient with history of urinary tract infections, patient was transported to the emergency department for evaluation. Patient was evaluated in the emergency department labs were significant for white blood cell count 7.4 hemoglobin been 13.3 hematocrit 41.6 MCV 100.9 lactic acid 3.8 urinalysis with 3+ leukoesterase nitrite positive microscopic analysis with greater than 50 bacteria too numerous to count white blood cell count, urine appears to be grossly dirty with sediment present as well. Patient was started on meropenem given history of ESBL UTI. ED provider wishes to admit for further evaluation and management of sepsis, UTI. Hospital Course: Patient initially admitted to ICU for septic shock. A central line and midline were placed in the ED, patient required pressors. He had gradual improvement. Blood and urine cultures grew proteus. ID was consulted and recommended Rocephin - end date: 07/05. HE was noted to have a sacral decubitus ulcer as well and ID recommended wound vac. His leukocytosis, EMERY, and hypernatremia all resolved. He was discharged back to the skilled nursing to complete Rocephin and continue w ound vac. EMERY - was felt secondary to dehydration and improved with IV fluids. His lasix was held during hospitalization and recommend to continue to hold until he needs it. Patient was brought in to the ER with a hankins in place from the skilled nursing. This hankins was replaced in the ED on admission, and he will go back to skilled nursing with a hankins. Vital Signs/Physical Exam: Temp Pulse Resp BP Pulse Ox 97.1 F 72 20 114/70 100 07/02/21 16:00 07/02/21 16:00 07/02/21 16:00 07/02/21 16:00 07/02/21 16:00 General: Alert, In no apparent distress, Oriented x2 HEENT: EOMI, Sclerae nonicteric Neck: Supple, No LAD Respiratory: Clear to auscultation bilaterally Cardiovascular: No edema, Regular rate/rhythm Gastrointestinal: Soft and benign, No tenderness Musculoskeletal: No swelling Integumentary: Other (stage IV decubitus ulcer, wound vac in place) Neurological: Normal speech, Normal affect Laboratory Data at Discharge: WBC 8.00 K/uL (4.3-10.9) 07/01/21 05:00 Hgb 11.0 g/dL (13.6-17.9) L 07/01/21 05:00 Hct 33.9 % (39.6-49.0) L 07/01/21 05:00 Plt Count 307 K/uL (152-406) D 07/01/21 05:00 PT 16.0 SECONDS (9.5-12.5) H 06/25/21 04:23 INR 1.39 06/25/21 04:23 APTT 27.4 SECONDS (24.3-36.9) 06/25/21 04:23 Sodium 143 mmol/L (136-145) 07/02/21 04:35 Potassium 4.1 mmol/L (3.5-5.1) 07/02/21 04:35 BUN 34 mg/dL (7-18) H 07/02/21 04:35 Creatinine 1.04 mg/dL (0.55-1.3) 07/02/21 04:35 Glucose 96 mg/dL (74-106) 07/02/21 04:35 Uric Acid 8.5 mg/dL (3.5-7.2) H D 06/25/21 09:30 Phosphorus 2.5 mg/dL (2.5-4.9) 07/02/21 04:35 Magnesium Cancelled 07/02/21 13:00 Total Bilirubin 0.2 mg/dL (0.2-1.0) 06/30/21 04:30 AST 27 U/L (15-37) 06/30/21 04:30 ALT 37 U/L (12-78) 06/30/21 04:30 Alkaline Phosphatase 59 U/L (45-117) 06/30/21 04:30 Triglycerides 147 mg/dL (<150) 06/26/21 05:15 Cholesterol 129 mg/dL (<200) 06/26/21 05:15 HDL Cholesterol 26 mg/dL (40-60) L 06/26/21 05:15 Cholesterol/HDL Ratio 4.96 06/26/21 05:15 Lipase 32 U/L (73-393) L 06/25/21 04:23 Home Medications: PHENYTOIN ER Cap [Dilantin ER Cap*] 1 cap PO Q8HR 03/08/18 Calcium Carbonate/Vitamin D3 [Calcium 600-Vit D3 400 Tablet] 1 each PO DAILY 11/26/20 Fluoxetine HCl [Prozac] 40 mg PO DAILY 11/26/20 Gabapentin [Neurontin*] 100 mg PO TID 11/26/20 Levothyroxine Sodium [Synthroid] 150 mcg PO [id number] 11/26/20 Nitroglycerin [Nitrostat*] 0.4 mg SL PRN PRN 11/26/20 hydrOXYzine HCL [Atarax*] 25 mg PO BIDP PRN 11/26/20 Apixaban [Eliquis *] 2.5 mg PO BID 12/15/20 Acetaminophen [Tylenol] 2 tab PO Q6HP PRN 07/02/21 Codeine/APAP [Tylenol #3*] 1 tab PO Q6HP PRN 07/02/21 Famotidine 20 mg PO Q12H 07/02/21 Megestrol [Megace*] 10 ml PO DAILY 07/02/21 Multivit-Min/FA/Lycopen/Lutein [Complete Multivitamin Tab] 1 tab PO DAILY 07/02/21 Valproic Acid (As Sodium Salt) [Valproic Acid] 20 ml PO Q12H 07/02/21 Diet: AHA Activity: Fall precautions Followup: NONE,NONE [Primary Care Provider] - Time spent managing pt's care (in minutes): 45
== END 2021-07-02 18:27 | DRG 698 ==
LOC: ER 03:16 → ERHOLD 05:08 → 2ND 06-26 18:38
PROVIDERS: ADMIT Internal Medicine; ATTEND Hospitalist
DX: T83.511A Infection and inflammatory reaction due to indwelling urethral catheter, initial encounter (principal); L89.154 Pressure ulcer of sacral region, stage 4; A41.52 Sepsis due to Pseudomonas; R65.21 Severe sepsis with septic shock; N17.0 Acute kidney failure with tubular necrosis; G93.41 Metabolic encephalopathy; Z68.41 Body mass index [BMI] 40.0-44.9, adult; E87.0 Hyperosmolality and hypernatremia; E46 Unspecified protein-calorie malnutrition; E87.2 Acidosis; E87.3 Alkalosis; E87.1 Hypo-osmolality and hyponatremia; I48.20 Chronic atrial fibrillation, unspecified; N39.0 Urinary tract infection, site not specified; I10 Essential (primary) hypertension; E78.5 Hyperlipidemia, unspecified; E03.9 Hypothyroidism, unspecified; E66.9 Obesity, unspecified; E86.0 Dehydration; G30.9 Alzheimer's disease, unspecified; F02.80 Dementia in other diseases classified elsewhere, unspecified severity, without behavioral disturbance, psychotic disturbance, mood disturbance, and anxiety; G40.909 Epilepsy, unspecified, not intractable, without status epilepticus; F32.A Depression, unspecified; K21.9 Gastro-esophageal reflux disease without esophagitis; L89.610 Pressure ulcer of right heel, unstageable; D64.9 Anemia, unspecified; E87.6 Hypokalemia; E83.42 Hypomagnesemia; B96.4 Proteus (mirabilis) (morganii) as the cause of diseases classified elsewhere; R33.9 Retention of urine, unspecified; Z79.899 Other long term (current) drug therapy; Z88.7 Allergy status to serum and vaccine; Z88.0 Allergy status to penicillin; Z79.01 Long term (current) use of anticoagulants; Z20.822 Contact with and (suspected) exposure to COVID-19
CPT/HCPCS: 36415; 36569; 51702; 71045; 76770; 80048; 80053; 80061; 80069; 80076; 80164; 80185; 81003; 81015; 82140; 82550; 82553; 82570; 82607; 82652; 82728; 82746; 82947; 83540; 83605; 83615; 83690; 83735; 83970; 84145; 84156; 84165; 84439; 84443; 84466; 84484; 84550; 85025; 85610; 85730; 86160; 87040; 87077; 87086; 87088; 87186; 87205; 93005; 99285; J0696; J2185; J3475; J3480; J7030; J7050; J7060; J7799; U0003

== ENCOUNTER 2021-09-24 20:28 | Inpatient (IN) | payer OTHER ==
--- OUTSIDE RECORDS SUMMARY | 2021-09-24 20:39 | XMS REPORT | Continuity of Care Document ---
:1945 Author Organization [facility] t Address [address] [place] [address] Care Team Providers Name Role Phone Pcp Primary Care Physician Unavailable POLI CONNER Attending Clinician Unavailable Myrtle Conner MD Attending Clinician Deacon Zuniga MD Attending Clinician [phone] Manav Diggs MD Attending Clinician Nelli GONZÁLES [...] - [facility] Pseudophak Problem Active 2019-02-03 M vikia ia 08-09 11:44:46 l (disorder) 00:00: Roverto valladares Pseudophak 00 ia (disorder) Active 08/09/2012 Problem 02/03/2019 Data migrated from [employer] on 12/22/14. [facility] Visual Problem Active 2019-02-03 Memor ia field -15 11:44:46 l defect Visual 00:00: Morgan (finding) field 00 defect (finding) Active 08/09/2012 Problem 02/03/2019 Data migrated from [employer] on 12/22/14. 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 [facility] Primary Problem Active 2019-02-03 Clive jose open angle 08-09 11:44:46 l glaucoma Primary 00:00: [place] nn (disorder) open angle 00 glaucoma (disorder) Active 08/09/2012 Problem 02/03/2019 Data migrated from [employer] on 12/22/14. 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 [facility] Dementia Problem Active 2019-02-03 Mem oria (disorder) 11:44:46 l Dementia Roverto n (disorder) Active Problem 02/03/2019 [facility] Hypertensi Problem Active 2019-02-03 M emoria ve 11:44:46 l disorder, Morgan systemic Hypertensi arterial ve (disorder) disorder, systemic arterial (disorder) Active Problem 02/03/2019 Data migrated from [employer] on 12/22/14. [facility] Hypothyroi Problem Active 2019-02-03 M emoria dism 11:44:46 l (disorder) Roverto n Hypothyroi dism (disorder) Active Problem 02/03/2019 [facility] Major Problem Active 2019-02-03 Memor ia depressive 11:44:46 l disorder Major Morgan (disorder) depressive disorder (disorder) Active Problem 02/03/2019 Data migrated from [facility] on 12/22/14. [facility] Parkinsoni Problem Active 2019-02-03 M ida sm 11:44:46 l (disorder) Roverto n Parkinsoni sm (disorder) Active Problem 02/03/2019 [facility] Allergies, Adverse Reactions, Alerts Allergy Allergy Status Severity Reaction(s) Onset Inactive Treating Comm ents Source Name Type Date Date Clinician Penicill Drug Active [facility]aphylaxis [facility] 00 [place] PENICILL Allergy Active High Anaphylaxis [facility] penicill penicill Active Memori a ins<sup> ins<sup> l 1</sup> 1</sup> Cristian penicill penicill Active Memori a in in l Cristian rabies rabies Active Memoria immune immune l globulin globulin Roverto n , , human<mojica human<mojica p>2</sup p>2</sup > > rabies rabies Active Memoria vaccine vaccine l Cristian NO KNOWN Allergy Active SLE ALLERGIE S Social History Social Habit Start Date Stop Date Quantity Comments Source Exposure to Not sure NIKA Ellis - SARS-CoV-2 (event) Medica l [place] Sex Ass[birth year] At [birth year] NIKA Grace kes - 00:00:00 [facility] Smoking Status Start Date Stop Date Source Social History [facility] Medications Ordered Filled Start Stop Current Ordering Indication Dosage Frequency Signature Comments Components Source Medication Medication Date Date Medication? Clinician (SIG) Name Name [facility] 2021- No 1{tbl} QD Take [address] [facility] 04-03 tablet by [employer] ([facility]) 00:00: 23:59 mouth Medi nilson tablet 00 :00 daily. [place] [facility] No 1{tbl} QD Take [address] n 04-03 tablet by [employer] (THERAGRAN) 00:00: 23:59 mouth Medi nilson tablet 00 :00 daily. [place] [facility] 2021- No 1{tbl} QD Take [address] n 04-03 tablet by [facility] - (THERAGRAN) 00:00: 23:59 mouth Medi nilson tablet 00 :00 daily. [place] multivitami 2021- No 1{tbl} QD Take [address] n 04-03 tablet by [facility] - (THERAGRAN) 00:00: 23:59 mouth Medi nilson tablet 00 :00 daily. [place] multivitami 2021- No 1{tbl} QD Take [address] n 04-03 tablet by [facility] - (THERAGRAN) 00:00: 23:59 mouth Medi nilson tablet 00 :00 daily. [place] multivitami 2021- No 1{tbl} QD Take [address] n 04-03 tablet by [facility] - (THERAGRAN) 00:00: 23:59 mouth Medi nilson tablet 00 :00 daily. [place] ascorbic 2020- No 250mg QD Take 1 [facility], [facility] tablet [facility] - vitamin C, 00:00: 23:59 (250 mg Med ical (VITAMIN C) 00 :00 total) by [address] 250 MG mouth tablet daily for 30 days. honey 100 % 2020- No 1{appli QD Apply [address] [facility] [address] [facility] 04-03 cation} applicatio [facility] - 00:[facility]: 23:59 n Medical 00 :00 topically Center daily for 30 days -Peg tube wound: Cleanse with NS, pat dry. Apply to open wound dime size medi-honey from edge to edge and cover with "cut to fit" Allevyn foam dressing.. ascorbic 2020- No 250mg QD Take 1 [facility], 04-03 tablet [facility] - vitamin C, 00:00: 23:59 (250 mg Med ical (VITAMIN C) 00 :00 total) by [address] 250 MG mouth tablet daily for 30 days. honey 100 % 2020- No 1{appli QD Apply [address] [facility] [address] [facility] 04-03 cation} applicatio [facility] - 00:00: 23:59 n Medical 00 :00 topically Center daily for 30 days -Peg tube wound: Cleanse with NS, pat dry. Apply to open wound dime size medi-honey from edge to edge and cover with "cut to fit" Allevyn foam dressing.. ascorbic 2020- No 250mg QD Take 1 [facility], 04-03 tablet [facility] - vitamin C, 00:00: 23:59 (250 mg Med ical (VITAMIN C) 00 :00 total) by [address] 250 MG mouth tablet daily for 30 days. honey 100 % 2020- No 1{appli QD Apply [address] [facility] [address] [facility] 04-03 cation} applicatio [facility] - 00:00: 23:59 n Medical 00 :00 topically Center daily for 30 days -Peg tube wound: Cleanse with NS, pat dry. Apply to open wound dime size medi-honey from edge to edge and cover with "cut to fit" Allevyn foam dressing.. ascorbic 2020- No 250mg QD Take 1 [facility] acid, 04-03 tablet [facility] - vitamin C, 00:00: 23:59 (250 mg Med ical (VITAMIN C) 00 :00 total) by [address] 250 MG mouth tablet daily for 30 days. honey 100 % 2020- No 1{appli QD Apply [address] [facility] [address] [facility] 04-03 cation} applicatio [facility] - 00:00: 23:59 n Medical 00 :00 topically Center daily for 30 days -Peg tube wound: Cleanse with NS, pat dry. Apply to open wound dime size medi-honey from edge to edge and cover with "cut to fit" Allevyn foam dressing.. ascorbic 2020- No 250mg QD Take 1 [facility], 04-03 tablet [facility] - vitamin C, 00:00: 23:59 (250 mg Med ical (VITAMIN C) 00 :00 total) by [address] 250 MG mouth tablet daily for 30 days. honey 100 % 2020- No 1{appli QD Apply [address] [facility] [address] [facility] 04-03 cation} applicatio [facility] - 00:00: 23:59 n Medical 00 :00 topically Center daily for 30 days -Peg tube wound: Cleanse with NS, pat dry. Apply to open wound dime size medi-honey from edge to edge and cover with "cut to fit" Allevyn foam dressing.. ascorbic No 250mg QD Take 1 [facility], 04-03 tablet [facility] - vitamin C, 00:00: 23:59 (250 mg Med ical (VITAMIN C) 00 :00 total) by [address] 250 MG mouth tablet daily for 30 days. honey 100 % 2020- No 1{appli QD Apply [address] [facility] [address] [facility] 04-03 cation} applicatio [facility] - 00:00: 23:59 n Medical 00 :00 topically Center daily for 30 days -Peg tube wound: Cleanse with NS, pat dry. Apply to open wound dime size medi-honey from edge to edge and cover with "cut to fit" Allevyn foam dressing.. sodium 2020- No QD Apply [facility] hypochlorit 04-03 topically Fern kes - e (DAKIN'S, 00:00: 23:59 daily for Medical HALF-STRENG 00 :00 7 days [facility],) 0.25 % -Sacrum: external Cleanse solution with 0.25% Dakins solution and pack with 0.25% Dakins wet to dry dressing. Cover with Allevyn foam dressing daily.. sodium 2020- No QD Apply [facility] hypochlorit 04-03 topically Fern kes - e (DAKIN'S, 00:00: 23:59 daily for Medical HALF-STRENG 00 :00 7 days [place] [facility],) 0.25 % -Sacrum: external Cleanse solution with 0.25% Dakins solution and pack with 0.25% Dakins wet to dry dressing. Cover with Allevyn foam dressing daily.. sodium 2020- No QD Apply [facility] hypochlorit 04-03 topically Fern kes - e (DAKIN'S, 00:00: 23:59 daily for Medical HALF-STRENG 00 :00 7 days [facility],) 0.25 % -Sacrum: external Cleanse solution with 0.25% Dakins solution and pack with 0.25% Dakins wet to dry dressing. Cover with Allevyn foam dressing daily.. sodium 2020- No QD Apply [facility] hypochlorit 9-09 09-16 topically Fern kes - e (DAKIN'S, 00:00: 23:59 daily for Medical HALF-STRENG 00 :00 7 days [facility],) 0.25 % -Sacrum: external Cleanse solution with 0.25% Dakins solution and pack with 0.25% Dakins wet to dry dressing. Cover with Allevyn foam dressing daily.. sodium 2020- No QD Apply [facility] hypochlorit 04-03 topically Fern kes - e (DAKIN'S, 00:00: 23:59 daily for Medical HALF-STRENG 00 :00 7 days [facility],) 0.25 % -Sacrum: external Cleanse solution with 0.25% Dakins solution and pack with 0.25% Dakins wet to dry dressing. Cover with Allevyn foam dressing daily.. sodium 2020- No QD Apply [facility] hypochlorit 04-03 topically Fern kes - e (DAKIN'S, 00:00: 23:59 daily for Medical HALF-STRENG 00 :00 7 days [facility],) 0.25 % -Sacrum: external Cleanse solution [...] [facility] en-codeine 04-02 tablet by Luluz maria s - (TYLENOL 18:23: mouth Medical #3) 300-30 35 every 6 Center mg per (six) tablet hours as needed. donepeziL Yes 10mg QD Take [address] (ARICEPT) 908 by mouth [facility] - 10 MG 18:23: [...] mg(1,250mg) -200 unit per tablet phenytoin Yes Q.[id number] Take by [facility] (DILANTIN) 9-08 [id number] mouth 3 [facility] - 100 MG ER [...] needed for Itching. ipratropium 0 Yes 500ug Q.[id number] Take [address] [facility] (ATROVENT) 9-08 [id number] mcg by L ukes - 0.02 % [...] 35 Center packet gabapentin 0 Yes 100mg Q.[id number] Take [address] [address] (NEURONTIN) 9-08 [id number] mg by L ukes - 100 MG [...] D3 18:23: mouth Medical (calcium-vi 35 daily. [place] tamin D) 500 mg(1,250mg) -200 unit per tablet phenytoin Yes Q.[id number] Take by [facility] (DILANTIN) 9-08 [id number] mouth 3 [facility] - 100 MG ER [...] as needed for Itching. ipratropium Yes 500ug Q.[id number] Take [address] (ATROVENT) 9-08 [id number] mcg by Leighann ukes - 0.02 % 18:23: 3D nebulizati [...] gram 35 Center packet gabapentin Yes 100mg Q.[id number] Take [address] [address] (NEURONTIN) 9-08 [id number] mg by L ukes - 100 MG [...] -200 unit per tablet phenytoin 0 Yes Q.[id number] Take by [facility] (DILANTIN) 9-08 [id number] mouth 3 [facility] - 100 MG ER [...] needed for Itching. ipratropium 0 Yes 500ug Q.[id number] Take [address] (ATROVENT) 9-08 [id number] mcg by L ukes - 0.02 % [...] 35 Center packet gabapentin 0 Yes 100mg Q.[id number] Take [address] [address] (NEURONTIN) 9-08 [id number] mg by L ukes - 100 MG [...] mg(1,250mg) -200 unit per tablet phenytoin Yes Q.[id number] Take by [facility] (DILANTIN) 9-08 [id number] mouth 3 [facility] - 100 MG ER [...] needed for Itching. ipratropium 0 Yes 500ug Q.[id number] Take [address] (ATROVENT) 9-08 [id number] mcg by L ukes - 0.02 % [...] 35 Center packet gabapentin 0 Yes 100mg Q.[id number] Take [address] (NEURONTIN) 9-08 [id number] mg by L ukes - 100 MG [...] -200 unit per tablet phenytoin 0 Yes Q.[id number] Take by [facility] (DILANTIN) 9-08 [id number] mouth 3 [facility] - 100 MG ER [...] 18:23: daily. Medica l 35 Center hydrOXYzine 2021-0 Yes 25mg Take [address] [facility] (ATARAX) 25 9-08 by mouth 3 Fern kes - MG tablet 18:23: (three) Medic al 35 times Center daily as needed for Itching. ipratropium 0 Yes 500ug Q.[id number] Take [address] (ATROVENT) 9-08 [id number] mcg by L ukes - 0.02 % [...] 35 Center packet gabapentin 0 Yes 100mg Q.[id number] Take [address] (NEURONTIN) 9-08 [id number] mg by L ukes - 100 MG [...] -200 unit per tablet phenytoin 0 Yes Q.[id number] Take by [facility] (DILANTIN) 9-08 [id number] mouth 3 [facility] - 100 MG ER [...] needed for Itching. ipratropium 0 Yes 500ug Q.[id number] Take [address] (ATROVENT) 9-08 [id number] mcg by L ukes - 0.02 % [...] 35 Center packet gabapentin 0 Yes 100mg Q.[id number] Take [address] (NEURONTIN) 9-08 [id number] mg by L ukes - 100 MG [...] morning on tablet an empty stomach. traZODone 2020-0 Yes 100mg QD Take [address] (DESYREL) 9-08 mg by [facility] - 100 MG 18:23: mouth Medical tablet 35 nightly. Center valproic 2020-0 Yes 1000mg Q.5D Take 1,[address] acid, as 9-08 mg by [place] - sodium 18:23: mouth 2 Medical salt, 35 (two) Center (DEPAKENE) times 250 mg/5 mL daily. (5 mL) solution famotidine 2020-0 2021- No 20mg Take [address] [facility] (PEPCID) 20 04-02- tablet (20 L ukes - MG tablet 00:00: 23:59 mg total) Me dical 00 :00 by mouth Center every 12 (twelve) hours for 30 days. cholecalcif 2020-0 2021- No 2000U QD Take [address] byron, 04-02- tablet [facility] - vitamin D3, 00:00: 23:59 (2,000 Med ical 2,000 unit 00 :00 Units Center Tab total) by mouth daily for 30 days. famotidine 2020-0 1- No 20mg Take [address] [facility] (PEPCID) 20 04-02- tablet (20 L ukes - MG tablet 00:00: 23:59 mg total) Me dical 00 :00 by mouth Center every 12 (twelve) hours for 30 days. cholecalcif 2020-0 2021- No 2000U QD Take [address] [place], 04-02 tablet [facility] - vitamin D3, 00:00: 23:59 (2,000 Med ical 2,000 unit 00 :00 Units Center Tab total) by mouth daily for 30 days. famotidine 2020-0 2021- No 20mg Take [address] [facility] (PEPCID) 20 04-02 tablet (20 L ukes - MG tablet 00:00: 23:59 mg total) Me dical 00 :00 by mouth Center every 12 (twelve) hours for 30 days. cholecalcif 2020-0 2021- No 2000U QD Take [address] [place], 04-02 tablet [facility] - vitamin D3, 00:00: 23:59 (2,000 Med ical 2,000 unit 00 :00 Units Center Tab total) by mouth daily for 30 days. famotidine 2020-0 2021- No 20mg Take [address] [facility] (PEPCID) 20 04-02- tablet (20 L ukes - MG tablet 00:00: 23:59 mg total) Me dical 00 :00 by mouth Center every 12 (twelve) hours for 30 days. cholecalcif 2020-0 2021- No 2000U QD Take [address] [place], 04-02- tablet [facility] - vitamin D3, 00:00: 23:59 (2,000 Med ical 2,000 unit 00 :00 Units Center Tab total) by mouth daily for 30 days. famotidine 2020-2020- No 20mg Take [address] [facility] (PEPCID) 20 04-02 tablet (20 L ukes - MG tablet 00:00: 23:59 mg total) Me dical 00 :00 by mouth Center every 12 (twelve) hours for 30 days. cholecalcif 2020- No 2000U QD Take [address] [place], 04-02 tablet [facility] - vitamin D3, 00:00: 23:59 (2,000 Med ical 2,000 unit 00 :00 Units Center Tab total) by mouth daily for 30 days. famotidine 2020- No 20mg Take [address] [facility] (PEPCID) 20 04-02 tablet (20 L ukes - MG tablet 00:00: 23:59 mg total) Me dical 00 :00 by mouth Center every 12 (twelve) hours for 30 days. cholecalcif 2020- No 2000U QD Take [address] [place], 04-02 tablet [facility] - vitamin D3, 00:00: 23:59 (2,000 Med ical 2,000 unit 00 :00 Units Center Tab total) by mouth daily for 30 days. ciprofloxac 2020- No 500mg Q.5D Take [address] in HCl 04-02 tablet [facility] - (CIPRO) 500 00:00: 23:59 (500 mg Me dical MG tablet 00 :00 total) by Cente r mouth 2 (two) times daily for 14 days. mINOCYCLine 2020-2020- No 100mg Q.5D Take [address] (MINOCIN,DY 04-02 capsule Luke s - NACIN) 100 00:00: 23:59 (100 mg Med ical MG capsule 00 :00 total) by Cent er mouth 2 (two) times daily for 14 days. ciprofloxac 2020- No 500mg Q.5D Take [address] in HCl 04-02 tablet [facility] - (CIPRO) 500 00:00: 23:59 (500 mg Me dical MG tablet 00 :00 total) by Cente r mouth 2 (two) times daily for 14 days. mINOCYCLine 2020-2020- No 100mg Q.5D Take [address] (MINOCIN,DY 04-02 capsule Luke s - NACIN) 100 00:00: 23:59 (100 mg Med ical MG capsule 00 :00 total) by Cent er mouth 2 (two) times daily for 14 days. ciprofloxac 2020- No 500mg Q.5D Take [address] in HCl 04-02 tablet [facility] - (CIPRO) 500 00:00: 23:59 (500 mg Me dical MG tablet 00 :00 total) by Cente r mouth 2 (two) times daily for 14 days. mINOCYCLine 2020-2020- No 100mg Q.5D Take [address] (MINOCIN,DY 04-02 capsule Luke s - NACIN) 100 00:00: 23:59 (100 mg Med ical MG capsule 00 :00 total) by Cent er mouth 2 (two) times daily for 14 days. ciprofloxac 2020- No 500mg Q.5D Take [address] in HCl 04-02 tablet [facility] - (CIPRO) 500 00:00: 23:59 (500 mg Me dical MG tablet 00 :00 total) by Cente r mouth 2 (two) times daily for 14 days. mINOCYCLine 2020- No 100mg Q.5D Take [address] (MINOCIN,DY 04-02 capsule Luke s - NACIN) 100 00:00: 23:59 (100 mg Med ical MG capsule 00 :00 total) by Cent er mouth 2 (two) times daily for 14 days. ciprofloxac 2020- No 500mg Q.5D Take [address] in HCl 04-02 tablet [facility] - (CIPRO) 500 00:00: 23:59 (500 mg Me dical MG tablet 00 :00 total) by Cente r mouth 2 (two) times daily for 14 days. mINOCYCLine 2020- No 100mg Q.5D Take [address] (MINOCIN,DY 04-02 capsule Luke s - NACIN) 100 00:00: 23:59 (100 mg Med ical MG capsule 00 :00 total) by Cent er mouth 2 (two) times daily for 14 days. ciprofloxac 2020-2020- No 500mg Q.5D Take [address] in HCl 04-02 tablet [facility] - (CIPRO) 500 00:00: 23:59 (500 mg Me dical MG tablet 00 :00 total) by Cente r mouth 2 (two) times daily for 14 days. mINOCYCLine 2020-0 202- No 100mg Q.5D Take [address] (MINOCIN,DY 04-02 capsule Luke s - NACIN) 100 00:00: 23:59 (100 mg Med ical MG capsule 00 :00 total) by Cent er mouth 2 (two) times daily for 14 days. dexAMETHaso 2020- 202- No 6mg QD Take [address] [facility] ne 04-02 tablet (6 [facility] - (DECADRON) 00:00: 23:59 mg total) M edical 6 MG tablet 00 :00 by mouth Cent er daily for 5 days. dexAMETHaso 2020-0 2021- No 6mg QD Take [address] [facility] ne 04-02 tablet (6 [facility] - (DECADRON) 00:00: 23:59 mg total) M edical 6 MG tablet 00 :00 by mouth Cent er daily for 5 days. dexAMETHaso 2020-0 2021- No 6mg QD Take [address] [facility] ne 04-02 tablet (6 [facility] - (DECADRON) 00:00: 23:59 mg total) M edical 6 MG tablet 00 :00 by mouth Cent er daily for 5 days. dexAMETHaso 2020-0 2021- No 6mg QD Take [address] [facility] ne 04-02 tablet (6 [facility] - (DECADRON) 00:00: 23:59 mg total) M edical 6 MG tablet 00 :00 by mouth Cent er daily for 5 days. dexAMETHaso 2020-0 2021- No 6mg QD Take [address] [facility] ne 04-02 tablet (6 [facility] - (DECADRON) 00:00: 23:59 mg total) M edical 6 MG tablet 00 :00 by mouth Cent er daily for 5 days. dexAMETHaso 2020- No 6mg QD Take [address] [facility] ne 04-02- tablet (6 [facility] - (DECADRON) 00:00: 23:59 mg total) M edical 6 MG tablet 00 :00 by mouth Cent er daily for 5 days. apixaban Yes TWICE [facility] (ELIQUIS) 5-23 DAILY [facility] - 2.5 mg Tab 00:00: Medical tablet 00 [place] apixaban Yes TWICE [facility] (ELIQUIS) 5-23 DAILY [facility] - 2.5 mg Tab 00:00: Medical tablet 00 [place] apixaban Yes TWICE [facility] (ELIQUIS) 5-23 DAILY [facility] - 2.5 mg Tab 00:00: Medical tablet 00 [place] apixaban Yes TWICE [facility] (ELIQUIS) 5-23 DAILY [facility] - 2.5 mg Tab 00:00: Medical tablet 00 [place] apixaban Yes TWICE [facility] (ELIQUIS) 5-23 DAILY [facility] - 2.5 mg Tab 00:00: Medical tablet 00 [place] apixaban Yes TWICE [facility] (ELIQUIS) 5-23 DAILY [facility] - 2.5 mg Tab 00:00: Medical tablet 00 [place] amLODIPine Yes DAILY [facility] (NORVASC) 5-04 [facility] - 2.5 MG 00:00: Medical tablet 00 [place] amLODIPine Yes DAILY [facility] (NORVASC) 5-04 [facility] - 2.5 MG 00:00: Medical tablet 00 [place] amLODIPine [address] [facility] (NORVASC) 5-04 [facility] - 2.5 MG 00:00: Medical tablet 00 [place] amLODIPine [address] [facility] (NORVASC) 5-04 [facility] - 2.5 MG 00:00: Medical tablet 00 [place] amLODIPine Yes DAILY [facility] (NORVASC) 5-04 [facility] - 2.5 MG 00:00: Medical tablet 00 [place] amLODIPine Yes DAILY [facility] (NORVASC) 5-04 [facility] - 2.5 MG 00:00: Medical tablet 00 [place] Donepezil 2018- Yes 10 mg = 1 Mem oria hydrochlori 0-11 tab, PO, l de 10 MG 16:23: Bedtime, # Her andre Oral Tablet 00 30 tab, 0 [Aricept] Refill(s) Aspirin 81 2017-07 Yes 81 mg = 1 Me moria MG Enteric 0-11 tab, PO, l Coated 16:23: Daily, # Morgan Tablet 00 90 tab, 3 Refill(s) Actonel 35 2017-07 Yes 35 mg = 1 Me moria mg oral 0-11 tab, PO, l tablet 16:23: qWeek, # 4 [place] nn 00 tab, 0 Refill(s) Acetaminoph 2017-07 Yes 1 tab, PO, Memoria en 325 MG / 0-11 Q8H, PRN l Hydrocodone 16:23: Pain, # 60 Morgan Bitartrate 00 tab, 0 5 MG Oral Refill(s) Tablet [Brashear 5/325] Seroquel 2017-07 Yes See Memoria 0-11 Instructio l 16:23: ns, 1/2 of Cristian 00 75 mg tab PO QHS, 0 Refill(s) metoprolol 2017-07 Yes 50 mg = 1 Me moria tartrate 50 0-11 tab, PO, l mg oral 16:23: BID, # 180 Herm cassy tablet 00 tab, 0 Refill(s) Amlodipine 2017-07 Yes 2.5 mg = 1 M emoria 2.5 MG Oral 0-11 tab, PO, l Tablet 16:23: BID, 0 Cristian [Norvasc] 00 Refill(s) Trazodone 2017-07 Yes 25 mg, PO, Me moria 0-11 Bedtime, 0 l 16:23: Refill(s) Cristian 00 gabapentin 2017-07 Yes 100 mg = 1 M emoria 100 MG Oral 0-11 cap, PO, l Capsule 16:23: Bedtime, 0 Herm cassy 00 Refill(s) meloxicam 2017-07 Yes 7.5 mg = 1 Me moria 7.5 MG Oral 0-11 tab, PO, l Tablet 16:23: Daily, PRN [place] nn [Mobic] 00 Pain, # 30 tab, 0 Refill(s) simvastatin 2017-07 Yes 40 mg = 1 M emoria 40 mg oral 0-11 tab, PO, l tablet 16:23: Bedtime, # [place] nn 00 90 tab, 1 Refill(s) apixaban 5 2017-07 Yes See Memoria MG Oral 0-11 Instructio l Tablet 16:23: ns, 1/2 Cristian [Eliquis] 00 tab PO Q12H, 0 Refill(s) Levothyroxi 2017-07 Yes 150 Memori a ne Sodium 0-11 microgram l 0.15 MG 16:23: = 1 tab, Roverto n Oral Tablet 00 PO, Daily, [Synthroid] # 30 tab, 0 Refill(s) Divalproex 2017-07 Yes 500 mg = 1 M emoria Sodium 500 0-11 tab, PO, l MG Enteric 16:23: BID, # 60 He rmann Coated 00 tab, 3 Tablet Refill(s) [Depakote] Phenytoin 2017-07 Yes 200 mg = 2 Me moria sodium 100 0-11 cap, PO, l MG Extended 16:23: BID, 0 Herm cassy Release 00 Refill(s) Capsule [Dilantin] Vital Signs Vital Name Observation Time Observation Value Comments Source WEIGHT 2021-03-31 04:00:00 87.8 kg HEIGHT 2021-03-28 21:00:00 170.2 cm WEIGHT 2021-03-28 21:00:00 87.8 kg WEIGHT 2021-03-31 04:00:00 87.8 kg HEIGHT 2021-03-28 21:00:00 170.2 cm WEIGHT 2021-03-28 21:00:00 87.8 kg Systolic blood 2021-04-02 15:00:00 128 mm[Hg] [facility] Diastolic blood 2021-04-02 15:00:00 72 mm[Hg] [facility] Heart rate 2021-04-02 15:00:00 63 /min [facility] Body temperature 2021-04-02 15:00:00 35.94 [facility] Respiratory rate 2021-04-02 15:00:00 20 /min [facility] Oxygen saturation in 2021-04-02 15:00:00 95 /min [facility] - Arterial blood by Medical Ce nter Pulse oximetry Body weight 2021-03-31 04:00:00 87.8 kg [facility] BMI 2021-03-31 04:00:00 30.32 kg/m2 [facility] Body height 2021-03-28 21:00:00 170.2 cm [facility] Height 2018-05-05 16:11:00 167.64 cm [facility] Weight 2018-05-05 16:11:00 [facility] BMI Calculated 2018-05-05 16:11:00 Terry marley Cristian Systolic (mm Hg) 2018-05-05 16:11:00 Clive choudhury Cristian Diastolic (mm Hg) 2018-05-05 16:11:00 Mem alisal Cristian Respitory Rate 2018-05-05 16:11:00 Terry Valdivia Heart Rate 2018-05-05 16:11:00 [facility] Procedures Procedure Date / Time Performed Performing Clinician Sourc e D-DIMER 2021-04-02 13:51:00 Nelli [facility] LACTATE DEHYDROGENASE 2021-04-02 13:50:[address] [facility] FERRITIN 2021-04-02 13:50:00 Nelli [facility] CBC W/PLT COUNT & AUTO 2021-04-02 13:50:00 Nelli [facility] C-REACTIVE PROTEIN 2021-04-02 13:50:00 Nelli [facility] PROCALCITONIN 2021-04-02 13:50:00 Nelli [facility] COMPREHENSIVE METABOLIC 2021-04-02 13:50:00 Nelli [facility] MAGNESIUM 2021-04-02 13:50:00 Nelli [facility] CBC W/PLT COUNT & AUTO 2021-04-02 13:50:00 Nelli [facility] POCT-GLUCOSE METER 2021-04-02 01:52:00 Renata Diggs [facility] POCT-GLUCOSE METER 2021-04-01 20:51:00 Renata Diggs [facility] POCT-GLUCOSE METER 2021-04-01 16:51:00 CaterinaTessie cornejokarina Em [facility] URINE CULTURE 2021-04-01 16:50:00 ElliottDiane esqueda Madyson [facility] URINALYSIS W/ REFLEX 2021-04-01 16:50:00 ElliottDiane esqueda Madyson [facility] I [facility] URINE CULTURE [facility] SARS-COV2/INFLUENZA/RSV 2021-04-01 16:48:00 CaterinaTessie cornejokha Billie stinson [facility] RT-PCR [facility] BASIC METABOLIC PANEL (7) 2021-04-01 16:47:00 ElliottDiane Dwight morillo [facility] POCT-GLUCOSE METER 2021-04-01 11:43:00 Caterina, Renata [facility] VANCOMYCIN LEVEL, TROUGH 2021-04-01 10:34:00 Dakotah Figueredo [facility] POCT-GLUCOSE METER 2021-04-01 05:45:00 Sancho Gregory [facility] BASIC METABOLIC PANEL (7) 2021-04-01 05:26:00 Madison Newsome [facility] CBC W/PLT COUNT & AUTO 2021-04-01 05:26:00 Kasey [facility] MAGNESIUM 2021-04-01 05:26:00 Kasey [facility] PHOSPHORUS 2021-04-01 05:26:00 Kasey [facility] HEPATIC FUNCTION PANEL 2021-04-01 05:26:00 Kasey [facility] C-REACTIVE PROTEIN 2021-04-01 05:26:00 [facility] CREATINE KINASE (CK) 2021-04-01 05:26:00 Kasey [facility] CALCIUM, IONIZED 2021-04-01 05:26:00 Sersuma [facility] CBC W/PLT COUNT & AUTO 2021-04-01 05:26:00 Sersuma [facility] DIFFERENTIAL [facility] POCT-GLUCOSE METER 2021-03-31 23:22:00 Sancho Gregory [facility] POCT-GLUCOSE METER 2021-03-31 15:28:00 [facility] W/PLT COUNT & AUTO 2021-03-31 12:50:00 Serenitye [facility] DIFFERENTIAL [facility] MAGNESIUM 2021-03-31 12:50:00 Sersuma [facility] PHOSPHORUS 2021-03-31 12:50:00 Sersuma [facility] HEPATIC FUNCTION PANEL 2021-03-31 12:50:00 Sersuma [facility] COMPREHENSIVE METABOLIC 2021-03-31 12:50:00 Lan Peraza [facility] VANCOMYCIN LEVEL, RANDOM 2021-03-31 12:50:00 Joanna Jolly [facility] CBC W/PLT COUNT & AUTO 2021-03-31 12:50:00 Kasey [facility] DIFFERENTIAL [facility] CALCIUM, IONIZED 2021-03-31 12:49:00 Sersuma [facility] POCT-GLUCOSE METER 2021-03-31 12:08:00 Sancho Gregory [facility] POCT-GLUCOSE METER 2021-03-31 09:59:00 [facility] BASIC METABOLIC PANEL (7) 2021-03-31 00:07:00 Madison Newsome [facility] XR ABDOMEN / KUB 1 VIEW 2021-03-30 21:31:00 Bola Naylor [facility] POCT-GLUCOSE METER 2021-03-30 21:31:00 [facility] POCT-[facility]SE METER 2021-03-30 17:26:00 [facility] / KUB 1 VIEW 2021-03-30 17:03:00 Madison Newsome [facility] BASIC METABOLIC PANEL (7) 2021-03-30 16:42:00 Madison Newsome [facility] POCT-GLUCOSE METER 2021-03-30 12:50:00 [facility] US RENAL COMPLETE 2021-03-30 11:26:00 Lan Peraza [facility] 2D ECHO W/ DOPPLER 2021-03-30 10:31:[address] [facility] (CW/PW/COLOR) [facility] BASIC METABOLIC PANEL (7) 2021-03-30 09:53:00 David Reeves [facility] POCT-GLUCOSE METER 2021-03-30 05:02:00 Kingsleymaria elena [facility] BASIC METABOLIC PANEL (7) 2021-03-30 04:12:00 David Reeves [facility] CBC W/PLT COUNT & AUTO 2021-03-30 04:12:00 Kasey [facility] MAGNESIUM 2021-03-30 04:12:00 Sersuma [facility] PHOSPHORUS 2021-03-30 04:12:00 Kasey [facility] HEPATIC FUNCTION PANEL 2021-03-30 04:12:00 [facility] C-REACTIVE PROTEIN 2021-03-30 04:12[facility] 2021-03-30 04:12[facility]ED 2021-03-30 04:12:00 SerBerny moise [facility] CBC W/PLT COUNT & AUTO 2021-03-30 04:12:00 SerBerny moise [facility] DIFFERENTIAL [facility] POCT-GLUCOSE METER 2021-03-29 23:40:00 [facility] OSMOLALITY, URINE 2021-03-29 21:49:00 Tye [facility] OSMOLALITY, SERUM 2021-03-29 21:49:00 Tye [facility] SODIUM, RANDOM URINE 2021-03-29 21:49:00 Tye [facility] CREATININE, RANDOM URINE 2021-03-29 21:49:00 Tye [facility] BASIC METABOLIC PANEL (7) 2021-03-29 21:49:00 David Reeves CH, I [facility] SODIUM, RANDOM URINE 2021-03-29 17:25:00 Stu [facility] PROTEIN, RANDOM URINE 2021-03-29 17:25:00 [facility] CREATININE, RANDOM URINE 2021-03-29 17:25[facility]00 [facility] 2021-03-29 17:25:00 Stu [facility] POCT-GLUCOSE METER 2021-03-29 17:21:00 Sancho Gregory [facility] BASIC METABOLIC PANEL (7) 2021-03-29 16:26:00 David Reeves [facility] VALPROIC ACID LEVEL, 2021-03-29 16:26:00 Jd Jefferson [facility] PHENYTOIN LEVEL, TOTAL 2021-03-29 16:26:00 Jd [facility] BASIC METABOLIC PANEL (7) 2021-03-29 12:51:00 David Reeves [facility] POCT-GLUCOSE METER 2021-03-29 12:38:00 Sancho Gregory [facility] BASIC METABOLIC PANEL (7) 2021-03-29 09:08:00 David Reeves [facility] VANCOMYCIN LEVEL, RANDOM 2021-03-29 09:08:00 Joanna Jolly [facility] B-TYPE NATRIURETIC FACTOR 2021-03-29 09:08:00 Jd Jefferson [facility] (BNP) [facility] BASIC METABOLIC PANEL (7) 2021-03-29 05:51:00 David Reeves [facility] TSH/FREE T4 IF INDICATED 2021-03-29 05:05:00 Sersuma [facility] CBC W/PLT COUNT & AUTO 2021-03-29 05:05:00 Sersuma [facility] (CELLAVISION MANUAL DIFF) 2021-03-29 05:05:00 Sersuma [facility] CBC W/PLT COUNT & AUTO 2021-03-29 05:05:00 Kasey [facility] DIFFERENTIAL [facility] URINE CULTURE 2021-03-29 02:53:00 Sersuma [facility] URINALYSIS W/ REFLEX 2021-03-29 02:53:00 Sersuma [facility] - URINE CULTURE [facility] BLOOD CULTURE 2021-03-29 02:52:00 Sersuma [facility] ECG 12-LEAD 2021-03-29 00:28:39 Unknown, H[facility]7 [facility] ECG 12-LEAD 2021-03-29 00:28:39 Unknown, Hl7 [facility] BLOOD GAS, ARTERIAL 2021-03-28 23:03:00 [facility] CBC (HEMOGRAM ONLY) 2021-03-28 23:02:00 [facility] PT/APTT 2021-03-28 23:02:00 [facility] D-DIMER 2021-03-28 23:02:00 [facility] LACTIC ACID, VENOUS 2021-03-28 23:02:00 [facility] CALCIUM, IONIZED 2021-03-28 23:02:00 [facility] COMPREHENSIVE METABOLIC 2021-03-28 22:29:00 [facility] PANEL [facility] C-REACTIVE PROTEIN 2021-03-28 22:29:00 [facility] MAGNESIUM 2021-03-28 22:29:00 [facility] PHOSPHORUS 2021-03-28 22:29:00 [facility] CREATINE KINASE (CK) 2021-03-28 22:29:00 [facility] XR ABDOMEN / KUB 1 VIEW 2021-03-28 22:07:00 [facility] XR CHEST 1 VIEW PORTABLE 2021-03-28 21:59:00 [facility] / BEDSIDE [facility] Plan of Care Planned Activity Planned Date Details Comments Source Future Scheduled 2021-07-[address] [facility] - Test 00:00:00 (12+) [code = [facility] DEPRESSION SCREENING (12+)] Future Scheduled 2021-07-26 FALLS RISK SCREENING [facility] - Test 00:00:00 [code = FALLS RISK Medical enter SCREENING] Future Scheduled 2021-07-[address] [facility] - Test 00:00:00 (12+) [code = Medical Center DEPRESSION SCREENING (12+)] Future Scheduled 2021-07-26 FALLS RISK SCREENING [facility] - Test 00:00:00 [code = FALLS RISK Medical C enter SCREENING] Future Scheduled 2021-03-26 INFLUENZA VACCINE (#1) C [...] 00:00:00 (1 of 1 - Medical Center [id number] PCV13) [code = PNEUMOCOCCAL 65+ YRS (1 of 1 - ZKUN86_Ehgpqzq PCV13)] Future Scheduled 2008 PNEUMOCOCCAL 65+ YRS [facility] - Test 00:00:00 (1 of 1 [facility] HLZV01_Mrqcyyg PCV13) [code = PNEUMOCOCCAL 65+ YRS (1 of 1 - DBCH71_Vnzuebm PCV13)] Future Scheduled 2008 PNEUMOCOCCAL 65+ YRS [facility] - Test 00:00:00 (1 of 1 [facility] EJPE61_Zxtuwch PCV13) [code = PNEUMOCOCCAL 65+ YRS (1 of 1 - RVMQ14_Ssdedns PCV13)] Future Scheduled 2008 PNEUMOCOCCAL 65+ YRS [facility] - Test 00:00:00 (1 of 1 [facility] BZXO24_Bmcbuah PCV13) [code = PNEUMOCOCCAL 65+ YRS (1 of 1 - BGHJ01_Njjukdr PCV13)] Future Scheduled 2008 PNEUMOCOCCAL 65+ YRS [facility] - Test 00:00:00 (1 of 1 [facility] UUVF37_Rfgkvwi PCV13) [code = PNEUMOCOCCAL 65+ YRS (1 of 1 - TVSX50_Roaahtj PCV13)] Future Scheduled 2008 PNEUMOCOCCAL 65+ YRS [facility] - Test 00:00:00 (1 of 1 [facility] ZQFW23_Vtabptd PCV13) [code = PNEUMOCOCCAL 65+ YRS (1 of 1 - SFIR73_Fefyrqr PCV13)] Future Scheduled 2005-03-27 MEDICARE ANNUAL [facility] [...] Clinicians Facility Department ID 2021-05-[address] [facility] Pulmonology [id number] [facility] 11:17:29 JESSICA 2021-03-28 2021-04-02 Hospital ER [facility] [id number] [facility] 20:39:00 18:23:00 Encounter Jordan Zuniga [facility] Diggs, [facility] 2021-03-29 2021-03-29 Orders [facility] [id number] 00:00:00 00:00:00 Only [facility] 2021-03-29 2021-03-29 Travel [facility] [id number] [facility] 00:[facility] 00:00:00 [facility] 2020-11-06 2020-11-06 Outpatient KNOW, HCABM DIEGOA [id number] [facility] 09:21:00 09:21:00 DOES_NOT [id number] [facility] 2018-07-15 2018-07-17 Outside nullFlavo MNA [id number] [facility]oria 16:15:00 05:59:59 Medical r Neurology 00 l Records Kristin Foster 2018-05-05 2018-05-06 Outpatient nullFlavo MNA [id number] [facility] 16:30:00 04:59:59 r Neurology 01 l Kristin Foster Results Test Description Test Time Test Comments Results Result Comments Source Urine culture 2021-04-03 09:42:00 Test Item Value Reference Range Interpretation Comme nts Result (test code = 6463-4) 80-89,000 col/mL Capri tropicalis A Lab Interpretation (test code = 14323-7) Abnormal [facility] [id number] 09:42:00 Test Item Value Reference Range Interpretation Comments Result (test code = 80-89,000 col/mL A 6463-4) Capri tropicalis Lab Interpretation (test Abnormal code = 97522-8) [facility] [id number] 09:42:00 Test Item Value Reference Range Interpretation Comments Result (test code = 80-89,000 col/mL A 6463-4) Capri tropicalis Lab Interpretation (test Abnormal code = 46816-3) [facility]2021-09-09 09:42:00 Test Item Value Reference Range Interpretation Comments Result (test code = 80-89,000 col/mL A 6463-4) Capri tropicalis Lab Interpretation (test Abnormal code = 98649-4) [facility] [id number] 09:42:00 Test Item Value Reference Range Interpretation Comments Result (test code = 80-89,000 col/mL A 6463-4) Capri tropicalis Lab Interpretation (test Abnormal code = 64661-0) [facility] [id number] 09:42:00 Test Item Value Reference Range Interpretation Comments Result (test code = 80-89,000 col/mL A 6463-4) Capri tropicalis Lab Interpretation (test Abnormal code = 71135-3) [facility] Culture - Routine (Left Venipuncture) 2021-04-03 04:01:00 Test Item Value Reference Range Interpretation Comments Result (test code = No growth in 5 days 6463-4) [facility] Culture - Routine (Left Venipuncture) 2021-04-03 04:01:00 Test Item Value Reference Range Interpretation Comments Result (test code = No growth in 5 days 6463-4) [facility] Culture - Routine (Left Venipuncture) 2021-04-03 04:01:00 Test Item Value Reference Range Interpretation Comments Result (test code = No growth in 5 days 6463-4) [facility] 2021-04-03 04:01:00 Test Item Value Reference Range Interpretation Comments Result (test code = No growth in 5 days 6463-4) [facility] Culture - Routine (Left Venipuncture) 2021-04-03 04:01:00 Test Item Value Reference Range Interpretation Comments Result (test code = No growth in 5 days 6463-4) [facility] Culture - Routine (Left Venipuncture) 2021-04-03 04:01:00 Test Item Value Reference Range Interpretation Comments Result (test code = No growth in 5 days 6463-4) [facility] [id number] 04:01:00 Test Item Value Reference Range Interpretation Comments CULTURE (BEAKER) (test No growth in 5 days code = 1095) BLOOD [id number] 04:01:00 Test Item Value Reference Range Interpretation Comments CULTURE (BEAKER) (test No growth in 5 days code = 1095) [id number] 14:50:00 Test Item Value Reference Range Interpretation Comments Ferritin (test code = 486.66 ng/mL 5-275 H 2276-4) STACY (test code = STACY) Sales Account Specialist ID - PIAYA L Lab Interpretation (test Abnormal code = 10189-1) [facility]00 Test Item Value Reference Range Interpretation Comments Ferritin (test code = 486.66 ng/mL 5.00-275.00 H 2276-4) STACY (test code = STACY) Sales Account Specialist ID - PIAYA L Lab Interpretation (test Abnormal code = 03155-3) [facility] 14:50:00 Test Item Value Reference Range Interpretation Comments Ferritin (test code = 486.66 ng/mL 5.00-275.00 H 2276-4) STACY (test code = STACY) Sales Account Specialist ID - PIAYA L Lab Interpretation (test Abnormal code = 29299-8) [facility] 14:50:00 Test Item Value Reference Range Interpretation Comments Ferritin (test code = 486.66 ng/mL 5.00-275.00 H 2276-4) STACY (test code = STACY) Sales Account Specialist ID - PIAYA L Lab Interpretation (test Abnormal code = 50349-2) [facility] 14:50:00 Test Item Value Reference Range Interpretation Comments Ferritin (test code = 486.66 ng/mL 5.00-275.00 H 2276-4) STACY (test code = STACY) Sales Account Specialist ID - CONCEPCIONAYA L Lab Interpretation (test Abnormal code = 33737-9) [facility] 14:50:00 Test Item Value Reference Range Interpretation Comments Ferritin (test code = 486.66 ng/mL 5.00-275.00 H 2276-4) STACY (test code = STACY) Sales Account Specialist ID - CONCEPCIONAYA L Lab Interpretation (test Abnormal code = 65666-8) [facility] 14:50:00 Test Item Value Reference Range Interpretation Comments FERRITIN (BEAKER) (test code = 486.66 ng/mL 5.00-275.00 H 361) Sales Account Specialist ID - CONCEPCIONAYA [id number] 14:43:00 Test Item Value Reference Range Interpretation Comments Procalcitonin (test <0.05 See_Comment [[employer] - SHV saulo code = 98411-5) message] The system which generated this result transmit saulo reference range : <0.05 ng/mL. Th e reference range was not used to interpret this result as normal/abnormal . STACY (test code = STACY) SEPSIS RISK (ng/mL)Low: 0.05-0.50Inter mediate: 0.51-2.00High: >=2.01 Lab Interpretation Normal (test code = 26182-2) [facility] 14:43:00 Test Item Value Reference Range Interpretation Comments Procalcitonin (test <0.05 See_Comment [[employer] saulo code = 17957-4) message] The system which generated this result transmit saulo reference range : <0.05 ng/mL. Th e reference range was not used to interpret this result as normal/abnormal . STACY (test code = STACY) SEPSIS RISK (ng/mL)Low: 0.05-0.50Inter mediate: 0.51-2.00High: >=2.01 Lab Interpretation Normal (test code = 19832-1) [facility] 14:43:00 Test Item Value Reference Range Interpretation Comments Procalcitonin (test <0.05 See_Comment [Automa saulo code = 22957-0) message] The system which generated this result transmit saulo reference range : <0.05 ng/mL. Th e reference range was not used to interpret this result as normal/abnormal . STACY (test code = STACY) SEPSIS RISK (ng/mL)Low: 0.05-0.50Inter mediate: 0.51-2.00High: >=2.01 Lab Interpretation Normal (test code = 61280-1) [facility] 14:43:00 Test Item Value Reference Range Interpretation Comments Procalcitonin (test <0.05 See_Comment [Automa saulo code = 90578-3) message] The system which generated this result transmit saulo reference range : <0.05 ng/mL. Th e reference range was not used to interpret this result as normal/abnormal . STACY (test code = STACY) SEPSIS RISK (ng/mL)Low: 0.05-0.50Inter mediate: 0.51-2.00High: >=2.01 Lab Interpretation Normal (test code = 57426-1) [facility] 14:43:00 Test Item Value Reference Range Interpretation Comments Procalcitonin (test <0.05 See_Comment [Automa saulo code = 87603-1) message] The system which generated this result transmit saulo reference range : <0.05 ng/mL. Th e reference range was not used to interpret this result as normal/abnormal . STACY (test code = STACY) SEPSIS RISK (ng/mL)Low: 0.05-0.50Inter mediate: 0.51-2.00High: >=2.01 Lab Interpretation Normal (test code = 38280-4) [facility] 14:43:00 Test Item Value Reference Range Interpretation Comments Procalcitonin (test <0.05 See_Comment [Automa saulo code = 56693-0) message] The system which generated this result transmit saulo reference range : <0.05 ng/mL. Th e reference range was not used to interpret this result as normal/abnormal . STACY (test code = STACY) SEPSIS RISK (ng/mL)Low: 0.05-0.50Inter mediate: 0.51-2.00High: >=2.01 Lab Interpretation Normal (test code = 04032-5) [facility] 14:43:00 Test Item Value Reference Range Interpretation Comments PROCALCITONIN (BEAKER) (test code = < ng/mL <0.05 3036) SEPSIS RISK (ng/mL)Low: 0.05-0.50Intermediate: 0.51-2.00High: >=2.01Comprehensive metabolic [id number] 14:39:00 Test Item Value Reference Range Interpretation [...] 2.0 g/dL 3.5-5 L Specime n slightly 73707-7) hemolyzed Alkaline Phosphatase 65 U/L 40-150 (test code = 6768-6) Total Bilirubin (test 0.4 mg/dL 0.2-1.2 Specim en slightly code = 1974-2) hemolyzed Sodium (test code = 141 meq/L 879-163 3994-2) Potassium (test code 3.3 meq/L 3.5-5.1 L Specime n slightly = 2823-3) hemolyzed Chloride (test code = 113 meq/L 98-107 H 2074-0) CO2 (test code = 20 meq/L 22-29 L 2027-) BUN (test code = 39 mg/dL 7-21 H 3094-0) Creatinine (test code 0.79 mg/dL 0.57-1.25 Specim en slightly = 2160-0) hemolyzed Glucose (test code = 100 mg/dL 70-105 2345-7) Calcium (test code = 7.2 mg/dL 8.4-10.2 L 86784-9) AST (test code = 38 U/L 5-34 H Specimen sl ightly 1920-8) hemolyzed ALT (test code = 31 U/L 6-55 Specimen sl ightly 1742-6) hemolyzed EGFR (test code = 95 mL/min/1.73 [place] [address]-9) NOT ACCURATE CREATININE CLEARANCE IN PREDICTING GLOMERULAR FILTRATION RATE . ESTIMATED GFR I S NOT APPLICABLE FOR DIALYSIS PATIEN TS. STACY (test code = STACY) Sales Account Specialist ID - PIAYA L Lab Interpretation Abnormal (test code = 42600-8) [facility]2021-04-02 14:39:00 Test Item Value Reference Range Interpretation Comments LDH (test code = 390 U/L 125-220 H Specimen 2532-0) slightly hemolyzed STACY (test code = STACY) Sales Account Specialist ID - PIAYA L Lab Interpretation Abnormal (test code = 90212-7) [facility] [id number] 14:39:00 Test Item Value Reference Range Interpretation [...] 2.0 g/dL 3.5-5.0 L Specime n slightly 56524-5) hemolyzed Alkaline Phosphatase 65 U/L 40-150 (test code = 6768-6) Total Bilirubin (test 0.4 mg/dL 0.2-1.2 Specim en slightly code = 1974-2) hemolyzed Sodium (test code = 141 meq/L 812-737 0276-2) Potassium (test code 3.3 meq/L 3.5-5.1 L Specime n slightly = 2463-3) hemolyzed Chloride (test code = 113 meq/L 98-107 H 2074-0) CO2 (test code = 20 meq/L 22-29 L 2027-) BUN (test code = 39 mg/dL 7-21 H 3094-0) Creatinine (test code 0.79 mg/dL 0.57-1.25 Specim en slightly = 2160-0) hemolyzed Glucose (test code = 100 mg/dL 70-105 2345-7) Calcium (test code = 7.2 mg/dL 8.4-10.2 L 14089-3) AST (test code = 38 U/L 5-34 H Specimen sl ightly 1920-8) hemolyzed ALT (test code = 31 U/L 6-55 Specimen sl ightly 1742-6) hemolyzed EGFR (test code = 95 mL/min/1.[place] [address]-6) NOT ACCURATE CREATININE CLEARANCE IN PREDICTING GLOMERULAR FILTRATION RATE . ESTIMATED GFR I S NOT APPLICABLE FOR DIALYSIS PATIEN TS. STACY (test code = STACY) Sales Account Specialist ID - PIAYA L Lab Interpretation Abnormal (test code = 96874-5) [facility]2021-04-02 14:39:00 Test Item Value Reference Range Interpretation Comments LDH (test code = 390 U/L 125-220 H Specimen 2532-0) slightly hemolyzed STACY (test code = STACY) Sales Account Specialist ID - PIAYA L Lab Interpretation Abnormal (test code = 26323-3) [facility] [id number] 14:39:00 Test Item Value Reference Range Interpretation [...] 2.0 g/dL 3.5-5.0 L Specime n slightly 35098-0) hemolyzed Alkaline Phosphatase 65 U/L 40-150 (test code = 6768-6) Total Bilirubin (test 0.4 mg/dL 0.2-1.2 Specim en slightly code = 1975-2) hemolyzed Sodium (test code = 141 meq/L 076-559 0476-2) Potassium (test code 3.3 meq/L 3.5-5.1 L [...] (test code = 7.2 mg/dL 8.4-10.2 L 01433-7) AST (test code = 38 U/L 5-34 H Specimen sl ightly 1920-8) hemolyzed ALT (test code = 31 U/L 6-55 Specimen sl ightly 1742-6) hemolyzed EGFR (test code = 95 mL/min/1.[place] [address]-2) NOT ACCURATE CREATININE CLEARANCE IN PREDICTING GLOMERULAR FILTRATION RATE . ESTIMATED GFR I S NOT APPLICABLE FOR DIALYSIS PATIEN TS. STACY (test code = STACY) Sales Account Specialist ID - PIAYA L Lab Interpretation Abnormal (test code = 65481-2) [facility]21-[facility] 14:39:00 Test Item Value Reference Range Interpretation Comments LDH (test code = 390 U/L 125-220 H Specimen 2532-0) slightly hemolyzed STACY (test code = STACY) Sales Account Specialist ID - PIAYA L Lab Interpretation Abnormal (test code = 56432-5) [facility] [id number] 14:39:00 Test Item Value Reference Range Interpretation [...] 2.0 g/dL 3.5-5.0 L Specime n slightly 09575-5) hemolyzed Alkaline Phosphatase 65 U/L 40-150 (test code = 6768-6) Total Bilirubin (test 0.4 mg/dL 0.2-1.2 Specim en slightly code = 1974-2) hemolyzed Sodium (test code = 141 meq/L 247-946 0162-2) Potassium (test code 3.3 meq/L 3.5-5.1 L [...] (test code = 7.2 mg/dL 8.4-10.2 L 33366-8) AST (test code = 38 U/L 5-34 H Specimen sl ightly 1920-8) hemolyzed ALT (test code = 31 U/L 6-55 Specimen sl ightly 1742-6) hemolyzed EGFR (test code = 95 mL/min/1.73 [place] [address]-8) NOT ACCURATE CREATININE CLEARANCE IN PREDICTING GLOMERULAR FILTRATION RATE . ESTIMATED GFR I S NOT APPLICABLE FOR DIALYSIS PATIEN TS. STACY (test code = STACY) Sales Account Specialist ID - PIAYA L Lab Interpretation Abnormal (test code = 94880-6) [facility]21-[facility]-02 14:39:00 Test Item Value Reference Range Interpretation Comments LDH (test code = 390 U/L 125-220 H Specimen 2532-0) slightly hemolyzed STACY (test code = STACY) Sales Account Specialist ID - PIAYA L Lab Interpretation Abnormal (test code = 79328-3) [facility] [id number] 14:39:00 Test Item Value Reference Range Interpretation [...] 2.0 g/dL 3.5-5.0 L Specime n slightly 55313-2) hemolyzed Alkaline Phosphatase 65 U/L 40-150 (test code = 6768-6) Total Bilirubin (test 0.4 mg/dL 0.2-1.2 Specim en slightly code = 1974-2) hemolyzed Sodium (test code = 141 meq/L 925-002 9116-2) Potassium (test code 3.3 meq/L 3.5-5.1 L [...] (test code = 7.2 mg/dL 8.4-10.2 L 50879-0) AST (test code = 38 U/L 5-34 H Specimen sl ightly 1920-8) hemolyzed ALT (test code = 31 U/L 6-55 Specimen sl ightly 1742-6) hemolyzed EGFR (test code = 95 mL/min/1.73 [place] [address]-4) NOT ACCURATE CREATININE CLEARANCE IN PREDICTING GLOMERULAR FILTRATION RATE . ESTIMATED GFR I S NOT APPLICABLE FOR DIALYSIS PATIEN TS. STACY (test code = STACY) Sales Account Specialist ID - PIAYA L Lab Interpretation Abnormal (test code = 64617-8) [facility] 14:39:00 Test Item Value Reference Range Interpretation Comments LDH (test code = 390 U/L 125-220 H Specimen 2532-0) slightly hemolyzed STACY (test code = STACY) Sales Account Specialist ID - PIAYA L Lab Interpretation Abnormal (test code = 97734-8) [facility] [id number] 14:39:00 Test Item Value Reference Range Interpretation [...] 2.0 g/dL 3.5-5.0 L Specime n slightly 01813-3) hemolyzed Alkaline Phosphatase 65 U/L 40-150 (test code = 6768-6) Total Bilirubin (test 0.4 mg/dL 0.2-1.2 Specim en slightly code = 1975-2) hemolyzed Sodium (test code = 141 meq/L 139-854 3219-2) Potassium (test code 3.3 meq/L 3.5-5.1 L [...] (test code = 7.2 mg/dL 8.4-10.2 L 81839-2) AST (test code = 38 U/L 5-34 H Specimen sl ightly 1920-8) hemolyzed ALT (test code = 31 U/L 6-55 Specimen sl ightly 1742-6) hemolyzed EGFR (test code = 95 mL/min/1.[place] [address]-2) NOT ACCURATE CREATININE CLEARANCE IN PREDICTING GLOMERULAR FILTRATION RATE . ESTIMATED GFR I S NOT APPLICABLE FOR DIALYSIS PATIEN TS. STACY (test code = STACY) Sales Account Specialist ID - CONCEPCIONAYA L Lab Interpretation Abnormal (test code = 87195-4) [facility] 14:39:00 Test Item Value Reference Range Interpretation Comments LDH (test code = 390 U/L 125-220 H Specimen 2532-0) slightly hemolyzed STACY (test code = STACY) Sales Account Specialist ID - PIAYA L Lab Interpretation Abnormal (test code = 12956-8) [facility]21[facility]-02 14:39:00 Test Item Value Reference Range Interpretation Comments LACTATE DEHYDROGENASE 390 U/L 125-220 H Specim en slightly (BEAKER) (test code = hemoly zed 635) Sales Account Specialist ID - MERT LCOMPREHENSIVE METABOLIC [id number] 14:39:00 Test Item Value Reference Range Interpretation [...] S NOT APPLICABLE FOR DIALYSIS PATIEN TS. Sales Account Specialist ID - CONCEPCIONAYA [id number] 14:35:00 Test Item Value Reference Range Interpretation Comments Magnesium (test code = 1.4 mg/dL 1.6-2.6 L Speci men 01150-9) slightly hemolyzed STACY (test code = STACY) Sales Account Specialist ID - PIAYA L Lab Interpretation Abnormal (test code = 42532-7) [facility] [id number] 14:35:00 Test Item Value Reference Range Interpretation Comments CRP (test code = 676) 2.68 mg/dL 0-0.5 H STACY (test code = STACY) Sales Account Specialist ID - PIAYA L Lab Interpretation (test Abnormal code = 70551-1) [facility] 14:35:00 Test Item Value Reference Range Interpretation Comments Magnesium (test code = 1.4 mg/dL 1.6-2.6 L Speci men 78956-2) slightly hemolyzed STACY (test code = STACY) Sales Account Specialist ID - PIAYA L Lab Interpretation Abnormal (test code = 95013-1) [facility]active Nivmxnu1209-79-08 14:35:00 Test Item Value Reference Range Interpretation Comments CRP (test code = 676) 2.68 mg/dL 0.00-0.50 H STACY (test code = STACY) Sales Account Specialist ID - PIAYA L Lab Interpretation (test Abnormal code = 49990-8) [facility] 14:35:00 Test Item Value Reference Range Interpretation Comments Magnesium (test code = 1.4 mg/dL 1.6-2.6 L Speci men 73204-3) slightly hemolyzed STACY (test code = STACY) Sales Account Specialist ID - PIAYA L Lab Interpretation Abnormal (test code = 64416-0) [facility] [id number] 14:35:00 Test Item Value Reference Range Interpretation Comments CRP (test code = 676) 2.68 mg/dL 0.00-0.50 H STACY (test code = STACY) Sales Account Specialist ID - PIAYA L Lab Interpretation (test Abnormal code = 19700-7) [facility] 14:[facility]00 Test Item Value Reference Range Interpretation Comments Magnesium (test code = 1.4 mg/dL 1.6-2.6 L Speci men 94511-5) slightly hemolyzed STACY (test code = STACY) Sales Account Specialist ID - PIAYA L Lab Interpretation Abnormal (test code = 62449-2) [facility]-Reactive [id number] 14:35:00 Test Item Value Reference Range Interpretation Comments CRP (test code = 676) 2.68 mg/dL 0.00-0.50 H STACY (test code = STACY) Sales Account Specialist ID - PIAYA L Lab Interpretation (test Abnormal code = 03641-0) [facility] 14:[facility]:00 Test Item Value Reference Range Interpretation Comments Magnesium (test code = 1.4 mg/dL 1.6-2.6 L Speci men 68551-0) slightly hemolyzed STACY (test code = STACY) Sales Account Specialist ID - PIAYA L Lab Interpretation Abnormal (test code = 67231-1) [facility]active [id number] 14:35:00 Test Item Value Reference Range Interpretation Comments CRP (test code = 676) 2.68 mg/dL 0.00-0.50 H STACY (test code = STACY) Sales Account Specialist ID - PIAYA L Lab Interpretation (test Abnormal code = 23411-5) [facility] 14:35:00 Test Item Value Reference Range Interpretation Comments Magnesium (test code = 1.4 mg/dL 1.6-2.6 L Speci men 83278-0) slightly hemolyzed STACY (test code = STACY) Sales Account Specialist ID - PIAYA L Lab Interpretation Abnormal (test code = 79345-1) [facility]-Reactive [id number] 14:35:00 Test Item Value Reference Range Interpretation Comments CRP (test code = 676) 2.68 mg/dL 0.00-0.50 H STACY (test code = STACY) Sales Account Specialist ID - PIAYA L Lab Interpretation (test Abnormal code = 97829-5) [facility] Test Item Value Reference Range Interpretation Comments MAGNESIUM (BEAKER) 1.4 mg/dL 1.6-2.6 L Specimen slightly (test code = 627) hemolyzed Sales Account Specialist ID - MERT LC-REACTIVE [id number] 14:35:00 Test Item Value Reference Range Interpretation Comments C-REACTIVE PROTEIN (BEAKER) (test 2.68 mg/dL 0.00-0.50 H code = 676) Sales Account Specialist ID - MERT VQ-[id number] 14:24:00 Test Item Value Reference Range Interpretation Comments D-Dimer, Quant (test 1.25 See_Comment H [Autom ated code = 16836-4) message] The system which generated this result [...] range. Lab Interpretation Abnormal (test code = 55135-0) [facility]mmcoy8547-71-15 14:24:00 Test Item Value Reference Range Interpretation Comments D-Dimer, Quant (test 1.25 See_Comment H [Autom ated code = 54684-0) message] The system which generated this result [...] range. Lab Interpretation Abnormal (test code = 76115-0) [facility]mzcks0247-08-69 14:24:00 Test Item Value Reference Range Interpretation Comments D-Dimer, Quant (test 1.25 See_Comment H [Autom ated code = 16907-2) message] The system which generated this result [...] range. Lab Interpretation Abnormal (test code = 15578-9) [id number] Test Item Value Reference Range Interpretation Comments D-Dimer, Quant (test 1.25 See_Comment H [Autom ated code = 26799-1) message] The system which generated this result [...] range. Lab Interpretation Abnormal (test code = 94516-4) [facility]-[id number] 14:24:00 Test Item Value Reference Range Interpretation Comments D-Dimer, Quant (test 1.25 See_Comment H [Autom ated code = 38387-2) message] The system which generated this result [...] range. Lab Interpretation Abnormal (test code = 50787-6) [facility] 14:24:00 Test Item Value Reference Range Interpretation Comments D-Dimer, Quant (test 1.25 See_Comment H [Autom ated code = 81670-2) message] The system which generated this result [...] range. Lab Interpretation Abnormal (test code = 21991-8) [id number] 14:24:00 Test Item Value Reference Range Interpretation [...] 95-100% range.CBC with platelet count + automated [id number] 14:17:00 Test Item Value Reference Range Interpretation Comments WBC (test code = 6690-2) 14.6 See_Comment H [A utomated message] The system [employer] generated this result transmitted ref erence range: 3.5 - 10 .5 K/L. The refe rence range was not u sed to interpret this result as normal/abnor mal. RBC (test code = 789-8) 4.03 See_Comment L [Au tomated message] The system [employer] generated this result transmitted ref erence range: 4.63 - 6 .08 M/L. The refe rence range was not u sed to interpret this result as normal/abnor mal. MCHC (test code = 786-4) 32.0 See_Comment L [A utomated message] The system [employer] generated this result transmitted ref erence range: [...] See_Comment [Aut omated message] 777-3) The system [employer] generated this result transmitted ref erence range: 150 - 45 0 K/CU MM. The referen ce range was not u sed to interpret this result as normal/abnor mal. MPV (test code = 11.2 fL 9.4-12.4 57904-8) nRBC (test code = 413) 1 See_Comment H [Aut omated message] The system [employer] generated this result transmitted ref erence range: [...] H [Aut omated message] 670) The system [employer] generated this result transmitted ref erence range: 1.78 - 5 .38 K/L. The refe rence range was not u sed to interpret this result as normal/abnor mal. # Lymphs (test code = 1.26 See_Comment L [Auto mated message] 414) The system [employer] generated this result transmitted ref erence range: 1.32 - 3 .57 K/L. The refe rence range was not u sed to interpret this result as normal/abnor mal. # Monos (test code = 0.76 See_Comment [Autom ated message] 415) The system [employer] generated this result transmitted ref erence range: 0.30 - 0 .82 K/L. The refe rence range was not u sed to interpret this result as normal/abnor mal. # Eos (test code = 416) 0.00 See_Comment L [Au tomated message] The system [employer] generated this result transmitted ref erence range: 0.04 - 0 .54 K/L. The refe rence range was not u sed to interpret this result as normal/abnor mal. # Baso (test code = 417) 0.03 See_Comment [A utomated message] The system [employer] generated this result transmitted ref erence range: 0.01 - 0 .08 K/L. The refe rence range was not u sed to interpret this result as normal/abnor mal. Immature 2 % 0-1 H Granulocytes-Relative (test code = 2801) Lab Interpretation (test Abnormal code = 95551-0) [facility] with platelet count + automated [id number] 14:17:00 Test Item Value Reference Range Interpretation Comments WBC (test code = 6690-2) 14.6 See_Comment H [A utomated message] The system [employer] generated this result transmitted ref erence range: 3.5 - 10 .5 K/L. The refe rence range was not u sed to interpret this result as normal/abnor mal. RBC (test code = 789-8) 4.03 See_Comment L [Au tomated message] The system [employer] generated this result transmitted ref erence range: 4.63 - 6 .08 M/L. The refe rence range was not u sed to interpret this result as normal/abnor mal. MCHC (test code = 786-4) 32.0 See_Comment L [A utomated message] The system [employer] generated this result transmitted ref erence range: [...] See_Comment [Aut omated message] 777-3) The system [employer] generated this result transmitted ref erence range: 150 - 45 0 K/CU MM. The referen ce range was not u sed to interpret this result as normal/abnor mal. MPV (test code = 11.2 fL 9.4-12.4 22704-6) nRBC (test code = 413) 1 See_Comment H [Aut omated message] The system [employer] generated this result transmitted ref erence range: [...] H [Aut omated message] 670) The system [employer] generated this result transmitted ref erence range: 1.78 - 5 .38 K/L. The refe rence range was not u sed to interpret this result as normal/abnor mal. # Lymphs (test code = 1.26 See_Comment L [Auto mated message] 414) The system [employer] generated this result transmitted ref erence range: 1.32 - 3 .57 K/L. The refe rence range was not u sed to interpret this result as normal/abnor mal. # Monos (test code = 0.76 See_Comment [Autom ated message] 415) The system [employer] generated this result transmitted ref erence range: 0.30 - 0 .82 K/L. The refe rence range was not u sed to interpret this result as normal/abnor mal. # Eos (test code = 416) 0.00 See_Comment L [Au tomated message] The system [employer] generated this result transmitted ref erence range: 0.04 - 0 .54 K/L. The refe rence range was not u sed to interpret this result as normal/abnor mal. # Baso (test code = 417) 0.03 See_Comment [A utomated message] The system [employer] generated this result transmitted ref erence range: 0.01 - 0 .08 K/L. The refe rence range was not u sed to interpret this result as normal/abnor mal. Immature 2 % 0-1 H Granulocytes-Relative (test code = 2801) Lab Interpretation (test Abnormal code = 56330-8) [facility] with platelet count + automated [id number] 14:17:00 Test Item Value Reference Range Interpretation Comments WBC (test code = 6690-2) 14.6 See_Comment H [A utomated message] The system [employer] generated this result transmitted ref erence range: 3.5 - 10 .5 K/L. The refe rence range was not u sed to interpret this result as normal/abnor mal. RBC (test code = 789-8) 4.03 See_Comment L [Au tomated message] The system [employer] generated this result transmitted ref erence range: 4.63 - 6 .08 M/L. The refe rence range was not u sed to interpret this result as normal/abnor mal. MCHC (test code = 786-4) 32.0 See_Comment L [A utomated message] The system [employer] generated this result transmitted ref erence range: [...] See_Comment [Aut omated message] 777-3) The system [employer] generated this result transmitted ref erence range: 150 - 45 0 K/CU MM. The referen ce range was not u sed to interpret this result as normal/abnor mal. MPV (test code = 11.2 fL 9.4-12.4 89625-2) nRBC (test code = 413) 1 See_Comment H [Aut omated message] The system [employer] generated this result transmitted ref erence range: [...] H [Aut omated message] 670) The system [employer] generated this result transmitted ref erence range: 1.78 - 5 .38 K/L. The refe rence range was not u sed to interpret this result as normal/abnor mal. # Lymphs (test code = 1.26 See_Comment L [Auto mated message] 414) The system [employer] generated this result transmitted ref erence range: 1.32 - 3 .57 K/L. The refe rence range was not u sed to interpret this result as normal/abnor mal. # Monos (test code = 0.76 See_Comment [Autom ated message] 415) The system [employer] generated this result transmitted ref erence range: 0.30 - 0 .82 K/L. The refe rence range was not u sed to interpret this result as normal/abnor mal. # Eos (test code = 416) 0.00 See_Comment L [Au tomated message] The system [employer] generated this result transmitted ref erence range: 0.04 - 0 .54 K/L. The refe rence range was not u sed to interpret this result as normal/abnor mal. # Baso (test code = 417) 0.03 See_Comment [A utomated message] The system [employer] generated this result transmitted ref erence range: 0.01 - 0 .08 K/L. The refe rence range was not u sed to interpret this result as normal/abnor mal. Immature 2 % 0-1 H Granulocytes-Relative (test code = 2801) Lab Interpretation (test Abnormal code = 67197-2) [facility] with platelet count + automated [id number] 14:17:00 Test Item Value Reference Range Interpretation Comments WBC (test code = 6690-2) 14.6 See_Comment H [A utomated message] The system [employer] generated this result transmitted ref erence range: 3.5 - 10 .5 K/L. The refe rence range was not u sed to interpret this result as normal/abnor mal. RBC (test code = 789-8) 4.03 See_Comment L [Au tomated message] The system [employer] generated this result transmitted ref erence range: 4.63 - 6 .08 M/L. The refe rence range was not u sed to interpret this result as normal/abnor mal. MCHC (test code = 786-4) 32.0 See_Comment L [A utomated message] The system [employer] generated this result transmitted ref erence range: [...] code = 264 See_Comment [Aut omated message] 257-3) The system [employer] generated this result transmitted ref erence range: 150 - 45 0 K/CU MM. The referen ce range was not u sed to interpret this result as normal/abnor mal. MPV (test code = 11.2 fL 9.4-12.4 01442-4) nRBC (test code = 413) 1 See_Comment H [Aut omated message] The system [employer] generated this result transmitted ref erence range: [...] H [Aut omated message] 670) The system [employer] generated this result transmitted ref erence range: 1.78 - 5 .38 K/L. The refe rence range was not u sed to interpret this result as normal/abnor mal. # Lymphs (test code = 1.26 See_Comment L [Auto mated message] 414) The system [employer] generated this result transmitted ref erence range: 1.32 - 3 .57 K/L. The refe rence range was not u sed to interpret this result as normal/abnor mal. # Monos (test code = 0.76 See_Comment [Autom ated message] 415) The system [employer] generated this result transmitted ref erence range: 0.30 - 0 .82 K/L. The refe rence range was not u sed to interpret this result as normal/abnor mal. # Eos (test code = 416) 0.00 See_Comment L [Au tomated message] The system [employer] generated this result transmitted ref erence range: 0.04 - 0 .54 K/L. The refe rence range was not u sed to interpret this result as normal/abnor mal. # Baso (test code = 417) 0.03 See_Comment [A utomated message] The system [employer] generated this result transmitted ref erence range: 0.01 - 0 .08 K/L. The refe rence range was not u sed to interpret this result as normal/abnor mal. Immature 2 % 0-1 H Granulocytes-Relative (test code = 2801) Lab Interpretation (test Abnormal code = 31477-7) [facility] with platelet count + automated [id number] 14:17:00 Test Item Value Reference Range Interpretation Comments WBC (test code = 6690-2) 14.6 See_Comment H [A utomated message] The system [employer] generated this result transmitted ref erence range: 3.5 - 10 .5 K/L. The refe rence range was not u sed to interpret this result as normal/abnor mal. RBC (test code = 789-8) 4.03 See_Comment L [Au tomated message] The system [employer] generated this result transmitted ref erence range: 4.63 - 6 .08 M/L. The refe rence range was not u sed to interpret this result as normal/abnor mal. MCHC (test code = 786-4) 32.0 See_Comment L [A utomated message] The system [employer] generated this result transmitted ref erence range: [...] See_Comment [Aut omated message] 777-3) The system [employer] generated this result transmitted ref erence range: 150 - 45 0 K/CU MM. The referen ce range was not u sed to interpret this result as normal/abnor mal. MPV (test code = 11.2 fL 9.4-12.4 57230-0) nRBC (test code = 413) 1 See_Comment H [Aut omated message] The system [employer] generated this result transmitted ref erence range: [...] H [Aut omated message] 670) The system [employer] generated this result transmitted ref erence range: 1.78 - 5 .38 K/L. The refe rence range was not u sed to interpret this result as normal/abnor mal. # Lymphs (test code = 1.26 See_Comment L [Auto mated message] 414) The system [employer] generated this result transmitted ref erence range: 1.32 - 3 .57 K/L. The refe rence range was not u sed to interpret this result as normal/abnor mal. # Monos (test code = 0.76 See_Comment [Autom ated message] 415) The system [employer] generated this result transmitted ref erence range: 0.30 - 0 .82 K/L. The refe rence range was not u sed to interpret this result as normal/abnor mal. # Eos (test code = 416) 0.00 See_Comment L [Au tomated message] The system [employer] generated this result transmitted ref erence range: 0.04 - 0 .54 K/L. The refe rence range was not u sed to interpret this result as normal/abnor mal. # Baso (test code = 417) 0.03 See_Comment [A utomated message] The system [employer] generated this result transmitted ref erence range: 0.01 - 0 .08 K/L. The refe rence range was not u sed to interpret this result as normal/abnor mal. Immature 2 % 0-1 H Granulocytes-Relative (test code = 2801) Lab Interpretation (test Abnormal code = 72423-4) [facility] with platelet count + automated [id number] 14:17:00 Test Item Value Reference Range Interpretation Comments WBC (test code = 6690-2) 14.6 See_Comment H [A utomated message] The system [employer] generated this result transmitted ref erence range: 3.5 - 10 .5 K/L. The refe rence range was not u sed to interpret this result as normal/abnor mal. RBC (test code = 789-8) 4.03 See_Comment L [Au tomated message] The system [employer] generated this result transmitted ref erence range: 4.63 - 6 .08 M/L. The refe rence range was not u sed to interpret this result as normal/abnor mal. MCHC (test code = 786-4) 32.0 See_Comment L [A utomated message] The system [employer] generated this result transmitted ref erence range: [...] See_Comment [Aut omated message] 777-3) The system [employer] generated this result transmitted ref erence range: 150 - 45 0 K/CU MM. The referen ce range was not u sed to interpret this result as normal/abnor mal. MPV (test code = 11.2 fL 9.4-12.4 16752-8) nRBC (test code = 413) 1 See_Comment H [Aut omated message] The system [employer] generated this result transmitted ref erence range: [...] H [Aut omated message] 670) The system [employer] generated this result transmitted ref erence range: 1.78 - 5 .38 K/L. The refe rence range was not u sed to interpret this result as normal/abnor mal. # Lymphs (test code = 1.26 See_Comment L [Auto mated message] 414) The system [employer] generated this result transmitted ref erence range: 1.32 - 3 .57 K/L. The refe rence range was not u sed to interpret this result as normal/abnor mal. # Monos (test code = 0.76 See_Comment [Autom ated message] 415) The system [employer] generated this result transmitted ref erence range: 0.30 - 0 .82 K/L. The refe rence range was not u sed to interpret this result as normal/abnor mal. # Eos (test code = 416) 0.00 See_Comment L [Au tomated message] The system [employer] generated this result transmitted ref erence range: 0.04 - 0 .54 K/L. The refe rence range was not u sed to interpret this result as normal/abnor mal. # Baso (test code = 417) 0.03 See_Comment [A utomated message] The system [employer] generated this result transmitted ref erence range: 0.01 - 0 .08 K/L. The refe rence range was not u sed to interpret this result as normal/abnor mal. Immature 2 % 0-1 H Granulocytes-Relative (test code = 2801) Lab Interpretation (test Abnormal code = 65080-4) [facility] W/PLT COUNT & AUTO [id number] 14:17:00 Test Item Value Reference Range Interpretation [...] PERCENT (BEAKER) (test code = 2801) POC-Glucose [id number] 02:03:00 Test Item Value Reference Range Interpretation Comments POC-Glucose Meter (test 115 mg/dL 70-110 H : TE STED AT [facility] code = 1538) [address] [facility], 770 30: Sales Account Specialist/Techni tressa ID = [id number] for Allen (contract )Nhi Lab Interpretation (test Abnormal code = 56742-6) [facility] [id number] 02:03:00 Test Item Value Reference Range Interpretation Comments POC-Glucose Meter (test 115 mg/dL 70-110 H : TE STED AT [facility] code = 1538) [address] [place] [address], 770 30: Sales Account Specialist/Techni tressa ID = [id number] for Desin (contract ), Nhi Lab Interpretation (test Abnormal code = 33845-0) [facility]-Glucose [id number] 02:03:00 Test Item Value Reference Range Interpretation Comments POC-Glucose Meter (test 115 mg/dL 70-110 H : TE STED AT [facility] code = 1538) [address] [place] [address], 770 30: Sales Account Specialist/Techni tressa ID = [id number] for Desin (contract ), Nhi Lab Interpretation (test Abnormal code = 07464-8) [facility]-Glucose [id number] 02:03:00 Test Item Value Reference Range Interpretation Comments POC-Glucose Meter (test 115 mg/dL 70-110 H : TE STED AT [facility] code = 1538) [address] [place] [address], 770 30: Sales Account Specialist/Techni tressa ID = [id number] for Desin (contract ), Nhi Lab Interpretation (test Abnormal code = 60550-1) [facility]-Glucose [id number] 02:03:00 Test Item Value Reference Range Interpretation Comments POC-Glucose Meter (test 115 mg/dL 70-110 H : TE STED AT [facility] code = 1538) [address] [place] [address], 770 30: Sales Account Specialist/Techni tressa ID = [id number] for Desin (contract ), Nhi Lab Interpretation (test Abnormal code = 02291-1) [facility]-Glucose [id number] 02:03:00 Test Item Value Reference Range Interpretation Comments POC-Glucose Meter (test 115 mg/dL 70-110 H : TE STED AT [facility] code = 1538) [address] [place] [address], 770 30: Sales Account Specialist/Techni tressa ID = [id number] for Desin (contract ), Nhi Lab Interpretation (test Abnormal code = 86886-4) [facility]-GLUCOSE [id number] 02:03:00 Test Item Value Reference Range Interpretation Comments POC-GLUCOSE METER 115 mg/dL 70-110 H : TESTED A T [facility] 6720 (Happigo.comAKER) (test code = ROMINA Payne [facility], 1538) [address]: Sales Account Specialist/Techni tressa ID = [id number] for Virgen (contract)[employer] POCT-GLUCOSE [id number] 21:04:00 Test Item Value Reference Range Interpretation Comments POC-GLUCOSE METER 143 mg/dL 70-110 H : TESTED A T [facility] 6720 (Novavax) (test code = ROMINA Payne [facility], 1538) [address]1595: Sales Account Specialist/Techni tressa ID = [id number] for NEHA OLSON SARS-CoV2/Influenza/RSV RT-PCR (Symptomatic ONLY)2021-04-01 19:00:00 Test Item Value Reference Interpretation Comments Range SARS-COV2/RT-PCR Positive Negative AA The SARS-Co V-2 (test code = target nucleic 00271-8) acids are detec saulo in this specime [...] (test code = [place] a re 20887-7) not detected in this specimen. Influenza B RT-PCR Negative Negative The Flu B target (test code = nucleic acids a re 15344-8) not detected in this specimen. RSV by RT-PCR (test Negative Negative The RSV target code = 92048-6) nucleic acid s are not detected in [...] the Act. Fact Sheet for Healthcare Providers:https://w ww.[employer].com/Docu ments/Xpert%20Xpres s%20SARS%20CoV-2/Fa ct%20Sheets/302-390 2%17ZHRJ-OIP-4%20HE ALTHCARE%20PROVIDER S%20FACT%20SHEET.pd f Fact Sheet for Healthcare Patients:https://cady w.OVIA/Docum ents/Xpert%20Xpress %20SARS%20Cov-2/Fac t%20Sheets/302-3801 %13KRPM-WLG-7%20PAT IENT%20FACT%20SHEET .pdf Lab Interpretation Abnormal (test code = 88636-2) [facility]Symptomatic ONLY) 2021-04-01 19:00:00 Test Item Value Reference Interpretation Comments Range SARS-COV2/RT-PCR Positive Negative AA The SARS-Co V-2 (test code = target nucleic 07165-2) acids are detec saulo in this specime [...] (test code = [place] re 74667-0) not detected in this specimen. Influenza B RT-PCR Negative Negative The Flu B target (test code = [place] re 23951-0) not detected in this specimen. RSV by RT-PCR (test Negative Negative The RSV target code = 89367-6) nucleic acid s are not detected in [...] the Act. Fact Sheet for Healthcare Providers:https://w SHERPA assistant.OVIA/Docu ments/Xpert%20Xpres s%20SARS%20CoV-2/Fa ct%20Sheets/302-390 2%14AYKV-DXI-4%20HE ALTHCARE%20PROVIDER S%20FACT%20SHEET.pd f Fact Sheet for Healthcare Patients:https://cady [employer]Monkey/Docum ents/Xpert%20Xpress %20SARS%20Cov-2/Fac t%20Sheets/302-3801 %88FLWA-BHB-4%20PAT IENT%20FACT%20SHEET .pdf Lab Interpretation Abnormal (test code = 26801-5) [facility] (Symptomatic ONLY) 2021-04-01 19:00:00 Test Item Value Reference Interpretation Comments Range SARS-COV2/RT-PCR Positive Negative AA The SARS-Co V-2 (test code = target nucleic 36464-0) acids are detec saulo in this specime [...] (test code = [place] re 28937-9) not detected in this specimen. Influenza B RT-PCR Negative Negative The Flu B target (test code = nucleic acids a re 51371-4) not detected in this specimen. RSV by RT-PCR (test Negative Negative The RSV target code = 40539-6) nucleic acid s are not detected in [...] the Act. Fact Sheet for Healthcare Providers:https://w Diabeto/Docu ments/Xpert%20Xpres s%20SARS%20CoV-2/Fa ct%20Sheets/302-390 2%30EVUI-POE-9%20HE ALTHCARE%20PROVIDER S%20FACT%20SHEET.pd f Fact Sheet for Healthcare Patients:https://cady [employer]Monkey/Docum ents/Xpert%20Xpress %20SARS%20Cov-2/Fac t%20Sheets/302-3801 %10TUZX-UKW-4%20PAT IENT%20FACT%20SHEET .pdf Lab Interpretation Abnormal (test code = 84789-0) [facility] (Symptomatic ONLY) 2021-04-01 19:00:00 Test Item Value Reference Interpretation Comments Range SARS-COV2/RT-PCR Positive Negative AA The SARS-Co V-2 (test code = target nucleic 23670-3) acids are detec saulo in this specime [...] (test code = [place] re 69697-9) not detected in this specimen. Influenza B RT-PCR Negative Negative The Flu B target (test code = [place] re 61379-6) not detected in this specimen. RSV by RT-PCR (test Negative Negative The RSV target code = 89047-5) nucleic acid s are not detected in [...] the Act. Fact Sheet for Healthcare Providers:https://loraine Diabeto/Docu ments/Xpert%20Xpres s%20SARS%20CoV-2/Fa ct%20Sheets/302-390 2%30NBZS-FOV-7%20HE ALTHCARE%20PROVIDER S%20FACT%20SHEET.pd f Fact Sheet for Healthcare Patients:https://cady [employer]Monkey/Docum ents/Xpert%20Xpress %20SARS%20Cov-2/Fac t%20Sheets/302-3801 %80LZYD-NAY-5%20PAT IENT%20FACT%20SHEET .pdf Lab Interpretation Abnormal (test code = 89438-2) [facility] (Symptomatic ONLY) 2021-04-01 19:00:00 Test Item Value Reference Interpretation Comments Range SARS-COV2/RT-PCR Positive Negative AA The SARS-Co V-2 (test code = target nucleic 11348-3) acids are detec saulo in this specime [...] (test code = [place] re 92152-9) not detected in this specimen. Influenza B RT-PCR Negative Negative The Flu B target (test code = [place] re 29763-5) not detected in this specimen. RSV by RT-PCR (test Negative Negative The RSV target code = 56190-6) nucleic acid s are not detected in [...] the Act. Fact Sheet for Healthcare Providers:https://w Diabeto/Docu ments/Xpert%20Xpres s%20SARS%20CoV-2/Fa ct%20Sheets/302-390 2%73MCCE-IEA-6%20HE ALTHCARE%20PROVIDER S%20FACT%20SHEET.pd f Fact Sheet for Healthcare Patients:https://Kapost/Docum ents/Xpert%20Xpress %20SARS%20Cov-2/Fac t%20Sheets/302-3801 %98TWMH-QMR-2%20PAT IENT%20FACT%20SHEET .pdf Lab Interpretation Abnormal (test code = 42252-3) [facility] (Symptomatic ONLY) 2021-04-01 19:00:00 Test Item Value Reference Interpretation Comments Range SARS-COV2/RT-PCR Positive Negative AA The SARS-Co V-2 (test code = target nucleic 89223-0) acids are detec saulo in this specime [...] (test code = nucleic acids a re 14812-9) not detected in this specimen. Influenza B RT-PCR Negative Negative The Flu B target (test code = nucleic acids a re 36537-7) not detected in this specimen. RSV by RT-PCR (test Negative Negative The RSV target code = 73003-7) nucleic acid s are not detected in [...] SARS-CoV-2/Flu/RSV by their healthcare provider. Results from [facility] Xpert Xpress SARS-CoV-2/Flu/RSV test should be [...] the Act. Fact Sheet for Healthcare Providers:https://w Diabeto/Docu ments/Xpert%20Xpres s%20SARS%20CoV-2/Fa ct%20Sheets/302-390 2%34JTKB-LEF-3%20HE ALTHCARE%20PROVIDER S%20FACT%20SHEET.pd f Fact Sheet for Healthcare Patients:https://Kapost/Docum ents/Xpert%20Xpress %20SARS%20Cov-2/Fac t%20Sheets/302-3801 %75CAJT-QAO-4%20PAT IENT%20FACT%20SHEET .pdf Lab Interpretation Abnormal (test code = 39260-2) [facility]ZA[facility]RSV [id number] 19:00:00 Test Item Value Reference Range Interpretation Comments SARS-COV2/RT-PCR Positive Negative AA The SARS-Co V-2 target (test code = nucleic acids a re 1491976) detected in thi s specimen. The presence [...] individuals teressa pected of COVID-19 by the [facility]. Results from Xpert Xpress SARS-CoV -2 [...] of the Act.Fact Sheet for Healthcare Providers :https://www.OVIA/Documents/Xpert%20Xpress%20SARS%20CoV-2/Fact%20Sheets/3 02-3902%74DRSX-XLJ-7%20HEALTHCARE%20PROVIDERS%20FACT%20SHEET.pdfFact Sheet for Healthcare Patients:https://www.OVIA /Documents/Xpert%20Xpress%20SARS%20Cov-2/Fact%20Sheets/302-3801%02EOYI-WPB-3%20P ATIENT%20FACT%20SHEET.pdfUrinalysis w/Microscopic + Reflex to [id number] 17:43:00 Test Item Value Reference Range Interpretation Comments Color, UA (test code Yellow = 5778-6) Clarity, UA (test Hazy code = 5767-9) Specific Sherman, UA 1.031 1.001-1.035 (test code = 5811-5) pH, UA (test code = 6.0 5.0-8.0 5803-2) Protein, UA (test 70 mg/dL Negative A code = 05895-0) Glucose, UA (test Negative Negative code = 365) Ketones, UA (test Trace Negative A code = 2514-8) Bilirubin, UA (test Negative Negative code = 86095-3) Blood, UA (test code Moderate Negative A = 05131-1) Nitrite, UA (test Negative Negative code = 5802-4) Leukocytes, UA (test Small Negative A code = 5799-2) Urobilinogen, UA 0.2 mg/dL 0.2-1 (test code = 95416-3) RBC, UA (test code = 27 See_Comment [Autom ated 75900-5) message] The system which generated this result [...] Bacteria, UA (test None Seen code = 37988-5) Mucus (test code = Rare 8247-9) Squam Epithel, UA <1 See_Comment [Automate d (test code = 89544-5) messag e] The system which generated this result transmitted reference range : /HPF. The reference range was not used to interpret this result as normal/abnormal . Hyaline Casts, UA 3 See_Comment [Automate d (test code = 60355-1) messag e] The system which generated this result transmitted reference range : /LPF. The reference range was not used to interpret this result as normal/abnormal . Crystals, Urine (test None Seen code = 28078-1) Yeast (test code = Occasional 86968-1) Specimen Source (test code = 2795) STACY (test code = STACY) Sales Account Specialist ID - [auto]Sales Account Specialist ID - tech Lab Interpretation Abnormal (test code = 16920-7) [facility] Culture 2021-04-01 17:43:00 Test Item Value Reference Range Interpretation Comments Color, UA (test code Yellow = 5778-6) Clarity, UA (test Hazy code = 5767-9) Specific Sherman, UA 1.031 1.001-1.035 (test code = 5811-5) pH, UA (test code = 6.0 5.0-8.0 5803-2) Protein, UA (test 70 mg/dL Negative A code = 55083-8) Glucose, UA (test Negative Negative code = 365) Ketones, UA (test Trace Negative A code = 2514-8) Bilirubin, UA (test Negative Negative code = 77600-7) Blood, UA (test code Moderate Negative A = 59065-6) Nitrite, UA (test Negative Negative code = 5802-4) Leukocytes, UA (test Small Negative A code = 5799-2) Urobilinogen, UA 0.2 mg/dL 0.2-1.0 (test code = 92793-4) RBC, UA (test code = 27 See_Comment [Autom ated 31300-1) message] The system which generated this result [...] Bacteria, UA (test None Seen code = 41722-6) Mucus (test code = Rare 8247-9) Squam Epithel, UA <1 See_Comment [Automate d (test code = 01843-1) messag e] The system which generated this result transmitted reference range : /HPF. The reference range was not used to interpret this result as normal/abnormal . Hyaline Casts, UA 3 See_Comment [Automate d (test code = 19289-6) messag e] The system which generated this result transmitted reference range : /LPF. The reference range was not used to interpret this result as normal/abnormal . Crystals, Urine (test None Seen code = 04700-2) Yeast (test code = Occasional 01358-2) Specimen Source (test code = 2795) STACY (test code = STACY) Sales Account Specialist ID - [auto]Sales Account Specialist ID - tech Lab Interpretation Abnormal (test code = 68755-9) [facility] Reflex [facility] Culture 2021-04-01 17:43:00 Test Item Value Reference Range Interpretation Comments Color, UA (test code Yellow = 5778-6) Clarity, UA (test Hazy code = 5767-9) Specific Sherman, UA 1.031 1.001-1.035 (test code = 5811-5) pH, UA (test code = 6.0 5.0-8.0 5803-2) Protein, UA (test 70 mg/dL Negative A code = 09661-0) Glucose, UA (test Negative Negative code = 365) Ketones, UA (test Trace Negative A code = 2514-8) Bilirubin, UA (test Negative Negative code = 65310-4) Blood, UA (test code Moderate Negative A = 87402-0) Nitrite, UA (test Negative Negative code = 5802-4) Leukocytes, UA (test Small Negative A code = 5799-2) Urobilinogen, UA 0.2 mg/dL 0.2-1.0 (test code = 70469-6) RBC, UA (test code = 27 See_Comment [Autom ated 31276-0) message] The system which generated this result [...] Bacteria, UA (test None Seen code = 96601-5) Mucus (test code = Rare 8247-9) Squam Epithel, UA <1 See_Comment [Automate d (test code = 23911-8) messag e] The system which generated this result transmitted reference range : /HPF. The reference range was not used to interpret this result as normal/abnormal . Hyaline Casts, UA 3 See_Comment [Automate d (test code = 68040-4) messag e] The system which generated this result transmitted reference range : /LPF. The reference range was not used to interpret this result as normal/abnormal . Crystals, Urine (test None Seen code = 19503-5) Yeast (test code = Occasional 89508-1) Specimen Source (test code = 2795) STACY (test code = STACY) Sales Account Specialist ID - [auto]Sales Account Specialist ID - tech Lab Interpretation Abnormal (test code = 82704-7) [facility] Ref[facility] Culture 2021-04-01 17:43:00 Test Item Value Reference Range Interpretation Comments Color, UA (test code Yellow = 5778-6) Clarity, UA (test Hazy code = 5767-9) Specific Sherman, UA 1.031 1.001-1.035 (test code = 5811-5) pH, UA (test code = 6.0 5.0-8.0 5803-2) Protein, UA (test 70 mg/dL Negative A code = 25853-3) Glucose, UA (test Negative Negative code = 365) Ketones, UA (test Trace Negative A code = 2514-8) Bilirubin, UA (test Negative Negative code = 94780-4) Blood, UA (test code Moderate Negative A = 20086-9) Nitrite, UA (test Negative Negative code = 5802-4) Leukocytes, UA (test Small Negative A code = 5799-2) Urobilinogen, UA 0.2 mg/dL 0.2-1.0 (test code = 92490-7) RBC, UA (test code = 27 See_Comment [Autom ated 01789-0) message] The system which generated this result [...] Bacteria, UA (test None Seen code = 41139-8) Mucus (test code = Rare 8247-9) Squam Epithel, UA <1 See_Comment [Automate d (test code = 67351-9) messag e] The system which generated this result transmitted reference range : /HPF. The reference range was not used to interpret this result as normal/abnormal . Hyaline Casts, UA 3 See_Comment [Automate d (test code = 21584-6) messag e] The system which generated this result transmitted reference range : /LPF. The reference range was not used to interpret this result as normal/abnormal . Crystals, Urine (test None Seen code = 36840-1) Yeast (test code = Occasional 59355-6) Specimen Source (test code = 2795) STACY (test code = STACY) Sales Account Specialist ID - [auto]Sales Account Specialist ID - tech Lab Interpretation Abnormal (test code = 90114-9) [facility] Reflex to Culture 2021-04-01 17:43:00 Test Item Value Reference Range Interpretation Comments Color, UA (test code Yellow = 5778-6) Clarity, UA (test Hazy code = 5767-9) Specific Sherman, UA 1.031 1.001-1.035 (test code = 5811-5) pH, UA (test code = 6.0 5.0-8.0 5803-2) Protein, UA (test 70 mg/dL Negative A code = 00477-7) Glucose, UA (test Negative Negative code = 365) Ketones, UA (test Trace Negative A code = 2514-8) Bilirubin, UA (test Negative Negative code = 72441-2) Blood, UA (test code Moderate Negative A = 68689-2) Nitrite, UA (test Negative Negative code = 5802-4) Leukocytes, UA (test Small Negative A code = 5799-2) Urobilinogen, UA 0.2 mg/dL 0.2-1.0 (test code = 33362-9) RBC, UA (test code = 27 See_Comment [Autom ated 97420-8) message] The system which generated this result [...] Bacteria, UA (test None Seen code = 22980-9) Mucus (test code = Rare 8247-9) Squam Epithel, UA <1 See_Comment [Automate d (test code = 58708-4) messag e] The system which generated this result transmitted reference range : /HPF. The reference range was not used to interpret this result as normal/abnormal . Hyaline Casts, UA 3 See_Comment [Automate d (test code = 99515-9) messag e] The system which generated this result transmitted reference range : /LPF. The reference range was not used to interpret this result as normal/abnormal . Crystals, Urine (test None Seen code = 69726-8) Yeast (test code = Occasional 59601-0) Specimen Source (test code = 2795) STACY (test code = STACY) Sales Account Specialist ID - [auto]Sales Account Specialist ID - tech Lab Interpretation Abnormal (test code = 89334-5) [facility] Reflex [facility] Culture 2021-04-01 17:43:00 Test Item Value Reference Range Interpretation Comments Color, UA (test code Yellow = 5778-6) Clarity, UA (test Hazy code = 5767-9) Specific Sherman, UA 1.031 1.001-1.035 (test code = 5811-5) pH, UA (test code = 6.0 5.0-8.0 5803-2) Protein, UA (test 70 mg/dL Negative A code = 71812-0) Glucose, UA (test Negative Negative code = 365) Ketones, UA (test Trace Negative A code = 2514-8) Bilirubin, UA (test Negative Negative code = 82723-6) Blood, UA (test code Moderate Negative A = 60146-6) Nitrite, UA (test Negative Negative code = 5802-4) Leukocytes, UA (test Small Negative A code = 5799-2) Urobilinogen, UA 0.2 mg/dL 0.2-1.0 (test code = 71817-2) RBC, UA (test code = 27 See_Comment [Autom ated 32706-7) message] The system which generated this result [...] Bacteria, UA (test None Seen code = 29749-1) Mucus (test code = Rare 8247-9) Squam Epithel, UA <1 See_Comment [Automate d (test code = 48646-0) messag e] The system which generated this result transmitted reference range : /HPF. The reference range was not used to interpret this result as normal/abnormal . Hyaline Casts, UA 3 See_Comment [Automate d (test code = 93867-2) messag e] The system which generated this result transmitted reference range : /LPF. The reference range was not used to interpret this result as normal/abnormal . Crystals, Urine (test None Seen code = 49984-0) Yeast (test code = Occasional 88504-8) Specimen Source (test code = 2795) STACY (test code = STACY) Sales Account Specialist ID - [auto]Sales Account Specialist ID - tech Lab Interpretation Abnormal (test code = 54736-6) [facility] [id number] 17:43:00 Test Item Value Reference Range Interpretation [...] 1585) Occasional SOURCE(BEAKER) (test code = 2795) Sales Account Specialist ID - [auto]Sales Account Specialist ID - techBasic Metabolic [id number] 17:22:00 Test Item Value Reference Range Interpretation Comments Sodium (test code = 143 meq/L 558-121 8660-2) Potassium (test code = 3.3 meq/L 3.5-5.1 L 2823-3) Chloride (test code = 117 meq/L 98-107 H 2075-0) CO2 (test code = 18 meq/L 22-29 L 2028-9) BUN (test code = 44 mg/dL 7-21 H 3094-0) Creatinine (test code 0.87 mg/dL 0.57-1.25 = 2160-0) Glucose (test code = 170 mg/dL 70-105 H 2345-7) Calcium (test code = 7.4 mg/dL 8.4-10.2 L 55594-5) EGFR (test code = 85 mL/min/1.73 [place] [address]-9) NOT ACCURATE CREATININE CLEARANCE IN PREDICTING GLOMERULAR FILTRATION RATE . ESTIMATED GFR I S NOT APPLICABLE FOR DIALYSIS PATIENTS. STACY (test code = STACY) Sales Account Specialist ID - BS Lab Interpretation Abnormal (test code = 74960-2) [facility] Metabolic [id number] 17:22:00 Test Item Value Reference Range Interpretation Comments Sodium (test code = 143 meq/L 436-510 3472-2) Potassium (test code = 3.3 meq/L 3.5-5.1 L 2823-3) Chloride (test code = 117 meq/L 98-107 H 2075-0) CO2 (test code = 18 meq/L 22-29 L 2028-9) BUN (test code = 44 mg/dL 7-21 H 3094-0) Creatinine (test code 0.87 mg/dL 0.57-1.25 = 2160-0) Glucose (test code = 170 mg/dL 70-105 H 2345-7) Calcium (test code = 7.4 mg/dL 8.4-10.2 L 31074-4) EGFR (test code = 85 mL/min/1.[place] [address]-7) NOT ACCURATE CREATININE CLEARANCE IN PREDICTING GLOMERULAR FILTRATION RATE . ESTIMATED GFR I S NOT APPLICABLE FOR DIALYSIS PATIENTS. STACY (test code = STACY) Sales Account Specialist ID - BS Lab Interpretation Abnormal (test code = 06796-9) [facility] Metabolic [id number] 17:22:00 Test Item Value Reference Range Interpretation Comments Sodium (test code = 143 meq/L 372-730 3443-2) Potassium (test code = 3.3 meq/L 3.5-5.1 L 2823-3) Chloride (test code = 117 meq/L 98-107 H 2075-0) CO2 (test code = 18 meq/L 22-29 L 2028-9) BUN (test code = 44 mg/dL 7-21 H 3094-0) Creatinine (test code 0.87 mg/dL 0.57-1.25 = 2160-0) Glucose (test code = 170 mg/dL 70-105 H 2345-7) Calcium (test code = 7.4 mg/dL 8.4-10.2 L 76562-1) EGFR (test code = 85 mL/min/1.73 [place] [address]-2) NOT ACCURATE CREATININE CLEARANCE IN PREDICTING GLOMERULAR FILTRATION RATE . ESTIMATED GFR I S NOT APPLICABLE FOR DIALYSIS PATIENTS. STACY (test code = STACY) Sales Account Specialist ID - BS Lab Interpretation Abnormal (test code = 61197-7) [facility] Metabolic [id number] 17:22:00 Test Item Value Reference Range Interpretation Comments Sodium (test code = 143 meq/L 337-406 5923-2) Potassium (test code = 3.3 meq/L 3.5-5.1 L 2823-3) Chloride (test code = 117 meq/L 98-107 H 2075-0) CO2 (test code = 18 meq/L 22-29 L 2028-9) BUN (test code = 44 mg/dL 7-21 H 3094-0) Creatinine (test code 0.87 mg/dL 0.57-1.25 = 2160-0) Glucose (test code = 170 mg/dL 70-105 H 2345-7) Calcium (test code = 7.4 mg/dL 8.4-10.2 L 35493-2) EGFR (test code = 85 mL/min/1.73 [place] [address]-4) NOT ACCURATE CREATININE CLEARANCE IN PREDICTING GLOMERULAR FILTRATION RATE . ESTIMATED GFR I S NOT APPLICABLE FOR DIALYSIS PATIENTS. STACY (test code = STACY) Sales Account Specialist ID - BS Lab Interpretation Abnormal (test code = 73489-0) [facility] Metabolic [id number] 17:22:00 Test Item Value Reference Range Interpretation Comments Sodium (test code = 143 meq/L 540-515 4815-2) Potassium (test code = 3.3 meq/L 3.5-5.1 L 2823-3) Chloride (test code = 117 meq/L 98-107 H 2075-0) CO2 (test code = 18 meq/L 22-29 L 2028-9) BUN (test code = 44 mg/dL 7-21 H 3094-0) Creatinine (test code 0.87 mg/dL 0.57-1.25 = 2160-0) Glucose (test code = 170 mg/dL 70-105 H 2345-7) Calcium (test code = 7.4 mg/dL 8.4-10.2 L 30908-4) EGFR (test code = 85 mL/min/1.73 [place] [address]-1) NOT ACCURATE CREATININE CLEARANCE IN PREDICTING GLOMERULAR FILTRATION RATE . ESTIMATED GFR I S NOT APPLICABLE FOR DIALYSIS PATIENTS. STACY (test code = STACY) Sales Account Specialist ID - BS Lab Interpretation Abnormal (test code = 79239-9) [facility] Metabolic [id number] 17:22:00 Test Item Value Reference Range Interpretation Comments Sodium (test code = 143 meq/L 463-085 9360-2) Potassium (test code = 3.3 meq/L 3.5-5.1 L 2823-3) Chloride (test code = 117 meq/L 98-107 H 2075-0) CO2 (test code = 18 meq/L 22-29 L 2028-9) BUN (test code = 44 mg/dL 7-21 H 3094-0) Creatinine (test code 0.87 mg/dL 0.57-1.25 = 2160-0) Glucose (test code = 170 mg/dL 70-105 H 2345-7) Calcium (test code = 7.4 mg/dL 8.4-10.2 L 01962-3) EGFR (test code = 85 mL/min/1.73 [place] [address]-3) NOT ACCURATE CREATININE CLEARANCE IN PREDICTING GLOMERULAR FILTRATION RATE . ESTIMATED GFR I S NOT APPLICABLE FOR DIALYSIS PATIENTS. STACY (test code = STACY) Sales Account Specialist ID - BS Lab Interpretation Abnormal (test code = 09839-4) [facility] MET[facility]OLIC [id number] 17:22:00 Test Item Value Reference Range Interpretation [...] S NOT APPLICABLE FOR DIALYSIS PATIEN TS. Sales Account Specialist ID - BSPOCT-GLUCOSE [id number] 17:03:00 Test Item Value Reference Range Interpretation Comments POC-GLUCOSE METER 161 mg/dL 70-110 H : TESTED A T [facility] 6720 (BEAKER) (test code = ROMINA Payne [place], 1538) [address]: Sales Account Specialist/Techni tressa ID = [id number] for ASHLEY MATA POCT-GLUCOSE [id number] 11:55:00 Test Item Value Reference Range Interpretation Comments POC-GLUCOSE METER 171 mg/dL 70-110 H : TESTED A T [facility] 6720 (BEAKER) (test code = [facility], 1538) [address]: Sales Account Specialist/Techni tressa ID = [id number] for ASHLEY MATA Vancomycin level, [id number] 11:02:00 Test Item Value Reference Range Interpretation Comments Vancomycin Tr (test code = 19.1 ug/mL 10-20 4092-3) STACY (test code = STACY) Sales Account Specialist ID - WINNIE C Lab Interpretation (test Normal code = 28847-8) [facility] [id number] 11:02:00 Test Item Value Reference Range Interpretation Comments Vancomycin Tr (test code = 19.1 ug/mL 10.0-20.0 4092-3) STACY (test code = STACY) Sales Account Specialist ID - WINNIE C Lab Interpretation (test Normal code = 52394-3) [facility], [id number] 11:02:00 Test Item Value Reference Range Interpretation Comments Vancomycin Tr (test code = 19.1 ug/mL 10.0-20.0 4092-3) STACY (test code = STACY) Sales Account Specialist ID - WINNIE C Lab Interpretation (test Normal code = 37905-3) [facility], [id number] 11:02:00 Test Item Value Reference Range Interpretation Comments Vancomycin Tr (test code = 19.1 ug/mL 10.0-20.0 4092-3) STACY (test code = STACY) Sales Account Specialist ID - WINNIE C Lab Interpretation (test Normal code = 37497-4) [facility], [id number] 11:02:00 Test Item Value Reference Range Interpretation Comments Vancomycin Tr (test code = 19.1 ug/mL 10.0-20.0 4092-3) STACY (test code = STACY) Sales Account Specialist ID - WINNIE C Lab Interpretation (test Normal code = 91026-5) [facility], [id number] 11:02:00 Test Item Value Reference Range Interpretation Comments Vancomycin Tr (test code = 19.1 ug/mL 10.0-20.0 4092-3) STACY (test code = STACY) Sales Account Specialist ID - WINNIE C Lab Interpretation (test Normal code = 06163-4) [facility] [id number] 11:02:00 Test Item Value Reference Range Interpretation Comments VANCOMYCIN TROUGH (BEAKER) (test 19.1 ug/mL 10.0-20.0 code = 522) Sales Account Specialist ID - WINNIE CCreatine Kinase (CK)2021-04-01 06:28:00 Test Item Value Reference Range Interpretation Comments Total CK (test code = 19 U/L 29-200 L 2157-6) STACY (test code = STACY) Sales Account Specialist ID - PIAYA L Lab Interpretation (test Abnormal code = 01010-0) [facility] 06:28:00 Test Item Value Reference Range Interpretation Comments Total CK (test code = 19 U/L 29-200 L 2157-6) STACY (test code = STACY) Sales Account Specialist ID - PIAYA L Lab Interpretation (test Abnormal code = 22908-6) [facility] ([facility])2021-04-01 06:28:00 Test Item Value Reference Range Interpretation Comments Total CK (test code = 19 U/L 29-200 L 2157-6) STACY (test code = STACY) Sales Account Specialist ID - PIAYA L Lab Interpretation (test Abnormal code = 86924-5) [facility] (CK)2021-04-01 06:28:00 Test Item Value Reference Range Interpretation Comments Total CK (test code = 19 U/L 29-200 L 2157-6) STACY (test code = STACY) Sales Account Specialist ID - PIAYA L Lab Interpretation (test Abnormal code = 33615-5) [facility] (CK)2021-04-01 06:28:00 Test Item Value Reference Range Interpretation Comments Total CK (test code = 19 U/L 29-200 L 2157-6) STACY (test code = STACY) Sales Account Specialist ID - PIAYA L Lab Interpretation (test Abnormal code = 80735-6) [facility] (CK)2021-04-01 06:28:00 Test Item Value Reference Range Interpretation Comments Total CK (test code = 19 U/L 29-200 L 2157-6) STACY (test code = STACY) Sales Account Specialist ID - PIAYA L Lab Interpretation (test Abnormal code = 36124-4) [facility]ABOLIC [id number] 06:28:00 Test Item Value Reference Range Interpretation [...] S NOT APPLICABLE FOR DIALYSIS PATIEN TS. Sales Account Specialist ID - MERT LCREATINE KINASE (CK)2021-04-01 06:28:00 Test Item Value Reference Range Interpretation Comments CREATINE KINASE TOTAL (BEAKER) (test 19 U/L 29-200 L code = 380) Sales Account Specialist ID - MERT LHepatic function [id number] 06:09:00 Test Item Value Reference Range Interpretation [...] 2.1 g/dL 3.5-5 L [place] 73520-5) hemolyzed Total Bilirubin (test 0.4 mg/dL 0.2-1.2 [...] 1742-6) hemolyzed STACY (test code = STACY) Sales Account Specialist ID - MERT [place] Lab Interpretation Abnormal (test code = 98698-8) [facility] 06:09:00 Test Item Value Reference Range Interpretation Comments Phosphorus (test code 2.9 mg/dL 2.3-4.7 Specim en = 2777-1) slightly hemolyzed STACY (test code = STACY) Sales Account Specialist ID - PIAYA L Lab Interpretation Normal (test code = 20130-9) [facility] HospitalHepatic function [id number] 06:09:00 Test Item Value Reference Range Interpretation [...] 2.1 g/dL 3.5-5.0 L Specime n slightly 02999-9) hemolyzed Total Bilirubin (test 0.4 mg/dL 0.2-1.2 [...] 1742-6) hemolyzed STACY (test code = STACY) Sales Account Specialist ID - PIAYA L Lab Interpretation Abnormal (test code = 25392-5) [facility]21-[facility] 06:09:00 Test Item Value Reference Range Interpretation Comments Phosphorus (test code 2.9 mg/dL 2.3-4.7 Specim en = 2777-1) slightly hemolyzed STACY (test code = STACY) Sales Account Specialist ID - PIAYA L Lab Interpretation Normal (test code = 56029-4) [facility] HospitalHepatic function [id number] 06:09:00 Test Item Value Reference Range Interpretation [...] 2.1 g/dL 3.5-5.0 L Specime n slightly 18579-0) hemolyzed Total Bilirubin (test 0.4 mg/dL 0.2-1.2 Specim en slightly code = 1974-08) hemolyzed Bilirubin, Direct 0.2 mg/dL 0.1-0.5 Specimen s lightly (test code = 1967-) hemolyz ed Alkaline Phosphatase 54 U/L 40-150 (test code = 6768-6) AST (test code = 54 U/L 5-34 H Specimen sl ightly 1920-8) hemolyzed ALT (test code = 33 U/L 6-55 Specimen sl ightly 1742-6) hemolyzed STACY (test code = STACY) Sales Account Specialist ID - PIAYA L Lab Interpretation Abnormal (test code = 91865-8) [facility] 06:09:00 Test Item Value Reference Range Interpretation Comments Phosphorus (test code 2.9 mg/dL 2.3-4.7 Specim en = 2777-1) slightly hemolyzed STACY (test code = STACY) Sales Account Specialist ID - PIAYA L Lab Interpretation Normal (test code = 82786-9) [facility] HospitalHepatic function [id number] 06:09:00 Test Item Value Reference Range Interpretation [...] 2.1 g/dL 3.5-5.0 L Specime n slightly 89093-9) hemolyzed Total Bilirubin (test 0.4 mg/dL 0.2-1.2 [...] 1742-6) hemolyzed STACY (test code = STACY) Sales Account Specialist ID - PIAYA L Lab Interpretation Abnormal (test code = 00110-2) [facility] 06:09:00 Test Item Value Reference Range Interpretation Comments Phosphorus (test code 2.9 mg/dL 2.3-4.7 Specim en = 2777-1) slightly hemolyzed STACY (test code = STACY) Sales Account Specialist ID - PIAYA L Lab Interpretation Normal (test code = 52389-8) [facility] HospitalHepatic function [id number] 06:09:00 Test Item Value Reference Range Interpretation [...] 2.1 g/dL 3.5-5.0 L [place] slightly 47923-6) hemolyzed Total Bilirubin (test 0.4 mg/dL 0.2-1.2 [...] 1742-6) hemolyzed STACY (test code = STACY) Sales Account Specialist ID - PIAYA L Lab Interpretation Abnormal (test code = 35939-7) [facility] 06:09:00 Test Item Value Reference Range Interpretation Comments Phosphorus (test code 2.9 mg/dL 2.3-4.7 Specim en = 2777-1) slightly hemolyzed STACY (test code = STACY) Sales Account Specialist ID - PIAYA L Lab Interpretation Normal (test code = 88057-1) [facility] HospitalHep[facility] function [id number] 06:09:00 Test Item Value Reference Range Interpretation [...] 2.1 g/dL 3.5-5.0 L Specime n slightly 96482-5) hemolyzed Total Bilirubin (test 0.4 mg/dL 0.2-1.2 [...] 1742-6) hemolyzed STACY (test code = STACY) Sales Account Specialist ID - PIAYA L Lab Interpretation Abnormal (test code = 78313-8) [facility] 06:09:00 Test Item Value Reference Range Interpretation Comments Phosphorus (test code 2.9 mg/dL 2.3-4.7 Specim en = 2777-1) slightly hemolyzed STACY (test code = STACY) Sales Account Specialist ID - PIAYA L Lab Interpretation Normal (test code = 13349-7) [facility]MAGNESIUM2021-09-07 06:09:00 Test Item Value Reference Range Interpretation Comments MAGNESIUM (BEAKER) 1.5 mg/dL 1.6-2.6 L Specimen slightly (test code = 627) hemolyzed Sales Account Specialist ID - PIAYA [id number] 06:09:00 Test Item Value Reference Range Interpretation Comments PHOSPHORUS (BEAKER) 2.9 mg/dL 2.3-4.7 Specimen slightly (test code = 604) hemolyzed Sales Account Specialist ID - MERT LHEPATIC FUNCTION [id number] 06:09:00 Test Item Value Reference Range Interpretation [...] Specimen slightly (test code = 347) hemolyzed Sales Account Specialist ID - MERT LC-REACTIVE [id number] 06:09:00 Test Item Value Reference Range Interpretation Comments C-REACTIVE PROTEIN (BEAKER) (test 2.48 mg/dL 0.00-0.50 H code = 676) Sales Account Specialist ID - MERT LCalcium, [id number] 06:05:00 Test Item Value Reference Range Interpretation Comments Calcium, Ion (test code = 1993-09) 1.11 mmol/L 1.12-1.27 L pH, Blood (test code = 76489-7) 7.37 Lab Interpretation (test code = Abnormal 86825-4) [facility] HospitalCal[facility], [id number] 06:05:00 Test Item Value Reference Range Interpretation Comments Calcium, Ion (test code = 1993-09) 1.11 mmol/L 1.12-1.27 L pH, Blood (test code = 19074-1) 7.37 Lab Interpretation (test code = Abnormal 03901-8) [facility] HospitalCalcium, [id number] 06:05:00 Test Item Value Reference Range Interpretation Comments Calcium, Ion (test code = 1993-09) 1.11 mmol/L 1.12-1.27 L pH, Blood (test code = 09641-2) 7.37 Lab Interpretation (test code = Abnormal 20450-5) [facility] HospitalCal[facility], [id number] 06:05:00 Test Item Value Reference Range Interpretation Comments Calcium, Ion (test code = 1993-09) 1.11 mmol/L 1.12-1.27 L pH, Blood (test code = 90463-9) 7.37 Lab Interpretation (test code = Abnormal 46223-8) [facility] HospitalCal[facility], [id number] 06:05:00 Test Item Value Reference Range Interpretation Comments Calcium, Ion (test code = 1993-09) 1.11 mmol/L 1.12-1.27 L pH, Blood (test code = 37277-6) 7.37 Lab Interpretation (test code = Abnormal 05392-2) [facility]Cal[facility], [id number] 06:05:00 Test Item Value Reference Range Interpretation Comments Calcium, Ion (test code = 1993-09) 1.11 mmol/L 1.12-1.27 L pH, Blood (test code = 95413-6) 7.37 Lab Interpretation (test code = Abnormal 41469-5) [facility] HospitalCALCIUM, [id number] 06:05:00 Test Item Value Reference Range Interpretation Comments CALCIUM IONIZED (BEAKER) (test 1.11 mmol/L 1.12-1.27 L code = 698) PH, BLOOD (BEAKER) (test code = 7.37 1810) POCT-GLUCOSE [id number] 05:57:00 Test Item Value Reference Range Interpretation Comments POC-GLUCOSE METER 134 mg/dL 70-110 H : TESTED A T [facility] 6720 (BEAKER) (test code = ROMINA GARNETT [place], 1538) [address]: Sales Account Specialist/Techni tressa ID = [id number] for KALPANA HANSEN CBC W/PLT COUNT & AUTO [id number] 05:52:00 Test Item Value Reference Range Interpretation [...] PERCENT (BEAKER) (test code = 2801) POCT-GLUCOSE [id number] 23:33:00 Test Item Value Reference Range Interpretation Comments POC-GLUCOSE METER 77 mg/dL 70-110 : TESTED Florinda Martinez [facility] 6720 (RENEA) (test code = ROMINA GARNETT [place], 1538) [address]: Sales Account Specialist/Techni tressa ID = [id number] for Cart er (agency)[facility] 2D Echo W/Doppler(CW/PW/Color)2021-03-31 17:56:10Ejection FractionSLEH ECHO HEARTLAB MKCKESSON CPACSInterface, External Ris In - 03/31/2021 5:56 PM C DTTransthoracic Echocardiography Report (TTE) Demographics Patient Name KEVIN HAMMOND Date of Study 03/30/2021 Gender Male Visit Number [id number] Race Unknown Room Number C628 Number Date of 1945 Referring Physician JD JEFFERSON Age 75 year(s) Slab Inspector Mili Malagon [facility] Lap Welder Ger Hui Interpreting Doc Tolbert MD Physician [...] pressure is 30-35 mmHg (normal range). 3. Sjjq-ee-rvmagrsq mitral regurgitation. Previous Study No prior exam [...] regurgitation. Mitral Valve Mild MV leaflet thickening. Mqjb-xh-qfxdfrmh mitral regurgitation. Tricuspid Valve Trace tricuspid regurgitation. [...] LVOT CO: 5.76 l/min LVOT CI: 2.89 l/min/m^[facility]/Doppler(CW/PW/Color)2021-03-31 17:56:10Ejection FractionSLE ECHO HEARTLAB [facility] W/Doppler(CW/PW/Color) 2021-03-31 17:56:10Ejection FractionSLE ECHO HEARTLAB [facility] Echo W/Doppler(CW/PW/Color)2021-03-31 17:56:10Ejection FractionSLE ECHO HEARTLAB [facility] W/Doppler(CW/PW/Color)2021-03-31 17:56:10Ejection FractionSLE ECHO [facility] W/Doppler(CW/PW/Color) 2021-03-31 17:56:10Ejection FractionSLE ECHO [facility]PO[facility] [id number] 15:39:00 Test Item Value Reference Range Interpretation Comments POC-GLUCOSE METER 81 mg/dL 70-110 : Notified RN/MD: TESTED (BEAKER) (test code AT [facility] 6720 JORDYN = 1538) [facility] 30: Sales Account Specialist/Techni tressa ID = [id number] for Jose J (contract), Shola [place] [id number] 13:30:00 Test Item Value Reference Range Interpretation Comments MAGNESIUM (BEAKER) (test code = 1.4 mg/dL 1.6-2.6 L 627) Sales Account Specialist ID - ERWIN [id number] 13:30:00 Test Item Value Reference Range Interpretation Comments PHOSPHORUS (BEAKER) (test code = 2.3 mg/dL 2.3-4.7 604) Sales Account Specialist ID - ERWIN FHEPATIC FUNCTION [id number] 13:30:00 Test Item Value Reference Range Interpretation [...] (test code = 19 U/L 6-55 347) Sales Account Specialist [facility] METABOLIC [id number] 13:30:00 Test Item Value Reference Range Interpretation [...] H (test code = 353) ALT (SGPT) (RENEA) 19 U/L 6-55 (test code = 347) EGFR (YUSUFAKER) (test 97 mL/min/1.73 ESTIMA SAULO GFR IS code = 1092) sq m NOT ACCURATE CREATININE CLEARANCE IN PREDICTING GLOMERULAR FILTRATION RATE . ESTIMATED GFR I S NOT APPLICABLE FOR DIALYSIS PATIEN TS. Sales Account Specialist ID - [facility]ENTERancomycin [place], [id number] 13:28:00 Test Item Value Reference Range Interpretation Comments Vancomycin Rm (test 43.6 ug/mL code = 75704-1) STACY (test code = Reference Range: No STACY) NormalsOperator ID - [facility] Hospitalycin [place], [id number] 13:28:00 Test Item Value Reference Range Interpretation Comments Vancomycin Rm (test 43.6 ug/mL code = 88966-6) STACY (test code = Reference Range: No STACY) NormalsOperator ID - [facility], [id number] 13:28:00 Test Item Value Reference Range Interpretation Comments Vancomycin Rm (test 43.6 ug/mL code = 95466-9) STACY (test code = Reference Range: No STACY) NormalsOperator ID - [facility] Hospitalycin [place], [id number] 13:28:00 Test Item Value Reference Range Interpretation Comments Vancomycin Rm (test 43.6 ug/mL code = 15725-0) STACY (test code = Reference Range: No STACY) NormalsOperator ID - [facility] Hospitalycin [place], [id number] 13:28:00 Test Item Value Reference Range Interpretation Comments Vancomycin Rm (test 43.6 ug/mL code = 44194-3) STACY (test code = Reference Range: No STACY) NormalsOperator ID - [facility] Hospitalycin [place], [id number] 13:28:00 Test Item Value Reference Range Interpretation Comments Vancomycin Rm (test 43.6 ug/mL code = 78750-8) STACY (test code = Reference Range: No STACY) NormalsOperator ID - [facility], [id number] 13:28:00 Test Item Value Reference Range Interpretation Comments VANCOMYCIN RANDOM (BEAKER) (test 43.6 ug/mL code = 523) Reference Range: No NormalsOperator ID - ERWIN FCALCIUM, [id number] 13:24:00 Test Item Value Reference Range Interpretation Comments CALCIUM IONIZED (BEAKER) (test 1.09 mmol/L 1.12-1.27 L code = 698) PH, BLOOD (BEAKER) (test code = 7.38 1810) CBC W/PLT COUNT & AUTO [id number] 13:14:00 Test Item Value Reference Range Interpretation [...] PERCENT (BEAKER) (test code = 2801) POCT-GLUCOSE [id number] 12:20:00 Test Item Value Reference Range Interpretation Comments POC-GLUCOSE METER 81 mg/dL 70-110 : Notified RN/MD: TESTED (BEAKER) (test code AT [place] [address] [place] = 1538) [facility] 30: Sales Account Specialist/Techni tressa ID = [id number] for Lux (contract), Shola ny POCT-GLUCOSE [id number] 10:10:00 Test Item Value Reference Range Interpretation Comments POC-GLUCOSE METER 90 mg/dL 70-110 : Notified RN/MD: TESTED (BEAKER) (test code AT [place] [address] [place] = 1538) [facility] 30: Sales Account Specialist/Techni tressa ID = [id number] for Lux (contract), Shola ny RAD, ABDOMEN/KUB, 1 VIEW [id number] 01:44:00For bedside G-tube study. Call radiology for KUB when gastroview, 60 cc syringe, and water for flushing are at the bedside and nursing is ready/Reason for exam:->G-tube studyShould this be performedat the bedside?->Yes [facility] : 1945 Sex: [...] on03/31/2021 01:44 AMXR abdomen / KUB 1 [id number] 01:44:00Interface, External Ris In - 03/31/2021 1:47 [...] Signed: Galileo Cuelloort Verified Date/Time: 03/31/2021 01:44:07 [facility]OLIC [id number] 00:40:00 Test Item Value Reference Range Interpretation [...] S NOT APPLICABLE FOR DIALYSIS PATIEN TS. Sales Account Specialist ID - DBPOCT-GLUCOSE [id number] 21:42:00 Test Item Value Reference Range Interpretation Comments POC-GLUCOSE METER 117 mg/dL 70-110 H : [facility] T [facility] 6720 [facility] (test code JORDYN [facility], = 1538) [address]: Sales Account Specialist/Techni tressa ID = [id number] for Kelsie anthony (agency)Marlo POCT-GLUCOSE [id number] 17:39:00 Test Item Value Reference Range Interpretation Comments POC-GLUCOSE METER 140 mg/dL 70-110 H : TESTED A T [facility] 6720 (BEAKER) (test code = ROMINA Payne [facility], 1538) [address]: Sales Account Specialist/Techni tressa ID = [id number] for JOSE JOHNSON RAD, ABDOMEN/MARIUSZB, 1 VIEW [id number] 17:36:00Reason for exam:->peg placementShould this be performed at the bedside?->Yes [facility] : 1945 Sex: [...] MDReport Verified Date/Time: 03/30/2021 17:36:33 Reading Location: [address] Consult Reading Room C METABOLIC [id number] 17:12:00 Test Item Value Reference Range Interpretation [...] S NOT APPLICABLE FOR DIALYSIS PATIEN TS. Sales Account Specialist ID - DBPOCT-GLUCOSE [id number] 13:04:00 Test Item Value Reference Range Interpretation Comments POC-GLUCOSE METER 101 mg/dL 70-110 : TESTED A T [facility] 6720 (BEAKER) (test code = ROMINA GARNETT [place], 1538) [address]: Sales Account Specialist/Techni tressa ID = [id number] for AG UILAR, JOSE U/S, RENAL, [id number] 11:52:00Reason for exam:->akiShould this be performed at the bedside?->Yes [facility] CENTERName: KEVIN HAMMOND : 1945 [...] MDReport Verified Date/Time: 03/30/2021 11:52:42 Reading Location: [address] Reading Room US renal [id number] 11:52:00Interface, External Ris In - 03/30/2021 11:54 [...] MDReport Verified Date/Time: 03/30/2021 11:52:42 Reading Location: [address] Consult Reading Room [facility] METABOLIC [id number] 10:57:00 Test Item Value Reference Range Interpretation [...] S NOT APPLICABLE FOR DIALYSIS PATIEN TS. Sales Account Specialist ID - [facility] METABOLIC [id number] 05:59:00 Test Item Value Reference Range Interpretation [...] S NOT APPLICABLE FOR DIALYSIS PATIEN TS. Sales Account Specialist ID - DBCREATINE KINASE (CK)2021-03-30 05:40:00 Test Item Value Reference Range Interpretation Comments CREATINE KINASE TOTAL (BEAKER) (test 43 U/L 29-200 code = 380) Sales Account Specialist ID - [id number] 05:33:00 Test Item Value Reference Range Interpretation Comments MAGNESIUM (BEAKER) (test code = 1.4 mg/dL 1.6-2.6 L 627) Sales Account Specialist ID - [id number] 05:33:00 Test Item Value Reference Range Interpretation Comments PHOSPHORUS (BEAKER) (test code = 1.6 mg/dL 2.3-4.7 L 604) Sales Account Specialist ID - DBHEPATIC FUNCTION [id number] 05:33:00 Test Item Value Reference Range Interpretation [...] (test code = 8 U/L 6-55 347) Sales Account Specialist ID - DBCREATINE KINASE (CK)2021-03-30 05:33:00 Test Item Value Reference Range Interpretation Comments CREATINE KINASE TOTAL (BEAKER) (test 42 U/L 29-200 code = 380) Sales Account Specialist ID - DBC-REACTIVE [id number] 05:33:00 Test Item Value Reference Range Interpretation Comments C-REACTIVE PROTEIN (BEAKER) (test 10.11 mg/dL 0.00-0.50 H code = 676) Sales Account Specialist ID - DBCALCIUM, [id number] 05:19:00 Test Item Value Reference Range Interpretation Comments CALCIUM IONIZED (BEAKER) (test 1.08 mmol/L 1.12-1.27 L code = 698) PH, BLOOD (BEAKER) (test code = 7.38 1810) POCT-GLUCOSE [id number] 05:14:00 Test Item Value Reference Range Interpretation Comments POC-GLUCOSE METER 127 mg/dL 70-110 H : TESTED A T [facility] 6720 (BEAKER) (test code [facility], = 1538) [address]: Sales Account Specialist/Techni tressa ID = [id number] for Kelsie anthony (agency)Marlo CBC W/PLT COUNT & AUTO [id number] 05:03:00 Test Item Value Reference Range Interpretation [...] PERCENT (BEAKER) (test code = 2801) POCT-GLUCOSE [id number] 23:51:00 Test Item Value Reference Range Interpretation Comments POC-GLUCOSE METER 135 mg/dL 70-110 H : TESTED A T [facility] 6720 (BEAKER) (test code [facility], = 1538) [address]: Sales Account Specialist/Techni tressa ID = [id number] for Kelsie anthony (agency)[facility], random [id number] 22:56:00 Test Item Value Reference Range Interpretation Comments Creatinine, Ur 88.5 mg/dL (test code = 2161-8) STACY (test code = Reference Range: No STACY) NormalsOperator ID - [facility] [id number] 22:56:00 Test Item Value Reference Range Interpretation Comments Sodium Urine (test 80 meq/L code = 2955-3) STACY (test code = Reference Range: No STACY) NormalsOperator ID - DB [facility], [facility] [id number] 22:56:00 Test Item Value Reference Range Interpretation Comments Creatinine, Ur 88.5 mg/dL (test code = 2161-8) STACY (test code = Reference Range: No STACY) NormalsOperator ID - DB [facility], [facility] [id number] 22:56:00 Test Item Value Reference Range Interpretation Comments Sodium Urine (test 80 meq/L code = 2955-3) STACY (test code = Reference Range: No STACY) NormalsOperator ID - [facility], random [id number] 22:56:00 Test Item Value Reference Range Interpretation Comments Creatinine, Ur 88.5 mg/dL (test code = 2161-8) STACY (test code = Reference Range: No STACY) NormalsOperator ID - [facility], random [id number] 22:56:00 Test Item Value Reference Range Interpretation Comments Sodium Urine (test 80 meq/L code = 2955-3) STACY (test code = Reference Range: No STACY) NormalsOperator ID - [facility], random [id number] 22:56:00 Test Item Value Reference Range Interpretation Comments Creatinine, Ur 88.5 mg/dL (test code = 2161-8) STACY (test code = Reference Range: No STACY) NormalsOperator [facility] - [facility] [id number] 22:56:00 Test Item Value Reference Range Interpretation Comments Sodium Urine (test 80 meq/L code = 2955-3) STACY (test code = Reference Range: No STACY) NormalsOperator ID - [facility], random [id number] 22:56:00 Test Item Value Reference Range Interpretation Comments Creatinine, Ur 88.5 mg/dL (test code = 2161-8) STACY (test code = Reference Range: No STACY) NormalsOperator ID - [facility], [facility] [id number] 22:56:00 Test Item Value Reference Range Interpretation Comments Sodium Urine (test 80 meq/L code = 2955-3) STACY (test code = Reference Range: No STACY) NormalsOperator ID - [facility] [id number] 22:56:00 Test Item Value Reference Range Interpretation Comments Creatinine, Ur 88.5 mg/dL (test code = 2161-8) STACY (test code = Reference Range: No STACY) NormalsOperator ID - DB [facility], [facility] [id number] 22:56:00 Test Item Value Reference Range Interpretation Comments Sodium Urine (test 80 meq/L code = 2955-3) STACY (test code = Reference Range: No STACY) NormalsOperator ID - DB [facility]CREAT[facility], RANDOM [id number] 22:56:00 Test Item Value Reference Range Interpretation Comments CREATININE URINE (BEAKER) (test 88.5 mg/dL code = 375) Reference Range: No NormalsOperator ID - DBSODIUM, RANDOM [id number] 22:56:00 Test Item Value Reference Range Interpretation Comments SODIUM URINE (BEAKER) (test code = 80 meq/L 243) Reference Range: No NormalsOperator ID - DBOsmolality, [id number] 22:15:00 Test Item Value Reference Range Interpretation Comments Osmolality Serum (test 344 See_Comment H [Aut omated message] code = 2692-2) The system [employer] generated this result transmitted ref erence range: 275 - 29 5 mOsm/kg. The reference range was not used to int erpret this result as normal/abnormal . Lab Interpretation (test Abnormal code = 99088-9) [facility]smolality, [id number] 22:15:00 Test Item Value Reference Range Interpretation Comments Osmolality Serum (test 344 See_Comment H [Aut omated message] code = 2692-2) The system [employer] generated this result transmitted ref erence range: 275 - 29 5 mOsm/kg. The reference range was not used to int erpret this result as normal/abnormal . Lab Interpretation (test Abnormal code = 78854-0) [facility] HospitalOsmolality, [id number] 22:15:00 Test Item Value Reference Range Interpretation Comments Osmolality Serum (test 344 See_Comment H [Aut omated message] code = 2692-2) The [employer] generated this result transmitted ref erence range: 275 - 29 5 mOsm/kg. The reference range was not used to int erpret this result as normal/abnormal . Lab Interpretation (test Abnormal code = 63607-7) [facility], [id number] 22:15:00 Test Item Value Reference Range Interpretation Comments Osmolality Serum (test 344 See_Comment H [Aut omated message] code = 2692-2) The system [employer] generated this result transmitted ref erence range: 275 - 29 5 mOsm/kg. The reference range was not used to int erpret this result as normal/abnormal . Lab Interpretation (test Abnormal code = 34325-7) [facility] [id number] 22:15:00 Test Item Value Reference Range Interpretation Comments Osmolality Serum (test 344 See_Comment H [Aut omated message] code = 2692-2) The system [employer] generated this result transmitted ref erence range: 275 - 29 5 mOsm/kg. The reference range was not used to int erpret this result as normal/abnormal . Lab Interpretation (test Abnormal code = 33427-8) [facility] [id number] 22:15:00 Test Item Value Reference Range Interpretation Comments Osmolality Serum (test 344 See_Comment H [Aut omated message] code = 2692-2) The system [employer] generated this result transmitted ref erence range: 275 - 29 5 mOsm/kg. The reference range was not used to int erpret this result as normal/abnormal . Lab Interpretation (test Abnormal code = 18861-0) [facility], [id number] 22:15:00 Test Item Value Reference Range Interpretation Comments OSMOLALITY, SERUM (BEAKER) (test 344 mOsm/kg 275-295 H code = 615) BASIC METABOLIC [id number] 22:15:00 Test Item Value Reference Range Interpretation [...] S NOT APPLICABLE FOR DIALYSIS PATIEN TS. Sales Account Specialist ID - DBOsmolality, [id number] 22:10:00 Test Item Value Reference Range Interpretation Comments Osmolality, Ur (test code 769 See_Comment [ Automated message] = 2695-5) The system [employer] generated this result transmitted ref erence range: 50-1,200 mOsm/kg mOsm/kg . The reference range was not used to int erpret this result as normal/abnormal . Lab Interpretation (test Normal code = 81305-6) [facility], [id number] 22:10:00 Test Item Value Reference Range Interpretation Comments Osmolality, Ur (test code 769 See_Comment [ Automated message] = 2695-5) The system [employer] generated this result transmitted ref erence range: 50-1,200 mOsm/kg mOsm/kg . The reference range was not used to int erpret this result as normal/abnormal . Lab Interpretation (test Normal code = 62303-2) [facility] HospitalOsmolality, [id number] 22:10:00 Test Item Value Reference Range Interpretation Comments Osmolality, Ur (test code 769 See_Comment [ Automated message] = 2695-5) The system [employer] generated this result transmitted ref erence range: 50-1,200 mOsm/kg mOsm/kg . The reference range was not used to int erpret this result as normal/abnormal . Lab Interpretation (test Normal code = 15461-1) [facility]Osmolality, [id number] 22:10:00 Test Item Value Reference Range Interpretation Comments Osmolality, Ur (test code 769 See_Comment [ Automated message] = 2695-5) The system [employer] generated this result transmitted ref erence range: 50-1,200 mOsm/kg mOsm/kg . The reference range was not used to int erpret this result as normal/abnormal . Lab Interpretation (test Normal code = 87929-9) [facility]Osmolality, [id number] 22:10:00 Test Item Value Reference Range Interpretation Comments Osmolality, Ur (test code 769 See_Comment [ Automated message] = 2695-5) The system [employer] generated this result transmitted ref erence range: 50-1,200 mOsm/kg mOsm/kg . The reference range was not used to int erpret this result as normal/abnormal . Lab Interpretation (test Normal code = 97099-7) [facility]Osmolality, [id number] 22:10:00 Test Item Value Reference Range Interpretation Comments Osmolality, Ur (test code 769 See_Comment [ Automated message] = 2695-5) The system [employer] generated this result transmitted ref erence range: 50-1,200 mOsm/kg mOsm/kg . The reference range was not used to int erpret this result as normal/abnormal . Lab Interpretation (test Normal code = 15736-0) [facility] HospitalOSMOLALITY, [id number] 22:10:00 Test Item Value Reference Range Interpretation Comments OSMOLALITY URINE 769 mOsm/kg See_Comment [Automated message] (BEAKER) (test code = The sy stem which 614) generated this result transmitted ref erence range: 50-1,200 mOsm/kg. The reference range was not used to int erpret this result as normal/abnormal . Protein, random [id number] 18:44:00 Test Item Value Reference Range Interpretation Comments Protein, Urine (test code = <68 0-14 H 2888-6) STACY (test code = STACY) Sales Account Specialist ID - DB Lab Interpretation (test Abnormal code = 91381-4) [facility]Protein, random [id number] 18:44:00 Test Item Value Reference Range Interpretation Comments Protein, Urine (test code = <68 0-14 H 2888-6) STACY (test code = STACY) Sales Account Specialist ID - DB Lab Interpretation (test Abnormal code = 46196-5) [facility]Protein, random [id number] 18:44:00 Test Item Value Reference Range Interpretation Comments Protein, Urine (test code = <68 0-14 H 2888-6) STACY (test code = STACY) Sales Account Specialist ID - DB Lab Interpretation (test Abnormal code = 96903-2) [facility]Protein, random [id number] 18:44:00 Test Item Value Reference Range Interpretation Comments Protein, Urine (test code = <68 0-14 H 2888-6) STACY (test code = STACY) Sales Account Specialist ID - DB Lab Interpretation (test Abnormal code = 11092-3) [facility]Protein, random [id number] 18:44:00 Test Item Value Reference Range Interpretation Comments Protein, Urine (test code = <68 0-14 H 2888-6) STACY (test code = STACY) Sales Account Specialist ID - DB Lab Interpretation (test Abnormal code = 10892-3) [facility]Protein, random [id number] 18:44:00 Test Item Value Reference Range Interpretation Comments Protein, Urine (test code = <68 0-14 H 2888-6) STACY (test code = STACY) Sales Account Specialist ID - DB Lab Interpretation (test Abnormal code = 59471-5) [facility] HospitalPROTEIN, RANDOM [id number] 18:44:00 Test Item Value Reference Range Interpretation Comments PROTEIN, URINE (BEAKER) (test code = < mg/dL 0-14 H 1569) Sales Account Specialist ID - DBCREATININE, RANDOM [id number] 18:22:00 Test Item Value Reference Range Interpretation Comments CREATININE URINE (BEAKER) (test 105.0 mg/dL code = 375) Reference Range: No NormalsOperator ID - DBSODIUM, RANDOM [id number] 18:22:00 Test Item Value Reference Range Interpretation Comments SODIUM URINE (BEAKER) (test code = 47 meq/L 243) Reference Range: No NormalsOperator ID - DBOSMOLALITY, [id number] 18:03:00 Test Item Value Reference Range Interpretation Comments OSMOLALITY URINE 662 mOsm/kg See_Comment [Automated message] (BEAKER) (test code = The sy stem which 614) generated this result transmitted ref erence range: 50-1,200 mOsm/kg. The reference range was not used to int erpret this result as normal/abnormal . POCT-GLUCOSE [id number] 17:36:00 Test Item Value Reference Range Interpretation Comments POC-GLUCOSE METER 146 mg/dL 70-110 H : TESTED A T [facility] 6720 (BEAKER) (test code = [place], 1538) [address]: Sales Account Specialist/Techni tressa ID = [id number] for Analisa monroy (contract), Yuli xis BASIC METABOLIC [id number] 17:08:00 Test Item Value Reference Range Interpretation [...] S NOT APPLICABLE FOR DIALYSIS PATIEN TS. Sales Account Specialist ID - AAHAMIDValproic acid level, [id number] 17:07:00 Test Item Value Reference Range Interpretation Comments Valproic Acid, Total <2 50-100 L (test code = 4086-5) STACY (test code = STACY) Therapeutic range for some clinical conditions may be >100 ug/mLOperator ID - AAHAMID Lab Interpretation (test Abnormal code = 27682-3) [facility] HospitalPhenytoin level, [id number] 17:07:00 Test Item Value Reference Range Interpretation Comments Phenytoin (test code = <0.5 10-20 L 3968-5) STACY (test code = STACY) Sales Account Specialist ID - AAHAMID Lab Interpretation (test Abnormal code = 03769-3) [facility] HospitalValproic acid level, [id number] 17:07:00 Test Item Value Reference Range Interpretation Comments Valproic Acid, Total <2 50-100 L (test code = 4086-5) STACY (test code = STACY) Therapeutic range for some clinical conditions may be >100 ug/mLOperator ID - AAHAMID Lab Interpretation (test Abnormal code = 48628-0) [facility] HospitalPhenytoin level, [id number] 17:07:00 Test Item Value Reference Range Interpretation Comments Phenytoin (test code = <0.5 10.0-20.0 L 3968-5) STACY (test code = STACY) Sales Account Specialist ID - AAHAMID Lab Interpretation (test Abnormal code = 75897-2) [facility] HospitalValproic acid level, [id number] 17:07:00 Test Item Value Reference Range Interpretation Comments Valproic Acid, Total <2 50-100 L (test code = 4086-5) STACY (test code = STACY) Therapeutic range for some clinical conditions may be >100 ug/mLOperator ID - AAHAMID Lab Interpretation (test Abnormal code = 48668-6) [facility] HospitalPhenytoin level, [id number] 17:07:00 Test Item Value Reference Range Interpretation Comments Phenytoin (test code = <0.5 10.0-20.0 L 3968-5) STACY (test code = STACY) Sales Account Specialist ID - AAHAMID Lab Interpretation (test Abnormal code = 46335-1) [facility] HospitalValpro[facility] acid level, [id number] 17:07:00 Test Item Value Reference Range Interpretation Comments Valproic Acid, Total <2 50-100 L (test code = 4086-5) STACY (test code = STACY) Therapeutic range for some clinical conditions may be >100 ug/mLOperator ID - AAHAMID Lab Interpretation (test Abnormal code = 78002-3) [facility]Phenytoin level, [id number] 17:07:00 Test Item Value Reference Range Interpretation Comments Phenytoin (test code = <0.5 10.0-20.0 L 3968-5) STACY (test code = STACY) Sales Account Specialist ID - AAHAMID Lab Interpretation (test Abnormal code = 79602-4) [facility]Valpro[facility] level, [id number] 17:07:00 Test Item Value Reference Range Interpretation Comments Valproic Acid, Total <2 50-100 L (test code = 4086-5) STACY (test code = STACY) Therapeutic range for some clinical conditions may be >100 ug/mLOperator ID - AAHAMID Lab Interpretation (test Abnormal code = 82660-3) [facility] HospitalPhenytoin level, [id number] 17:07:00 Test Item Value Reference Range Interpretation Comments Phenytoin (test code = <0.5 10.0-20.0 L 3968-5) STACY (test code = STACY) Sales Account Specialist ID - AAHAMID Lab Interpretation (test Abnormal code = 76150-1) [facility] HospitalValpro[facility] level, [id number] 17:07:00 Test Item Value Reference Range Interpretation Comments Valproic Acid, Total <2 50-100 L (test code = 4086-5) STACY (test code = STACY) Therapeutic range for some clinical conditions may be >100 ug/mLOperator ID - AAHAMID Lab Interpretation (test Abnormal code = 44301-8) [facility] HospitalPhenytoin level, [id number] 17:07:00 Test Item Value Reference Range Interpretation Comments Phenytoin (test code = <0.5 10.0-20.0 L 3968-5) STACY (test code = STACY) Sales Account Specialist ID - AAHAMID Lab Interpretation (test Abnormal code = 43626-9) [facility] HospitalVALPROIC ACID LEVEL, [id number] 17:07:00 Test Item Value Reference Range Interpretation Comments VALPROIC ACID TOTAL (BEAKER) (test < ug/mL 50-100 L code = 924) Therapeutic range for some clinical conditions may be >100 ug/mLOperator ID - AAHAMIDPHENYTOIN LEVEL, [id number] 17:07:00 Test Item Value Reference Range Interpretation Comments PHENYTOIN (DILANTIN) (BEAKER) (test < ug/mL 10.0-20.0 L code = 605) Sales Account Specialist ID - AAHAMIDBASIC METABOLIC [id number] 13:35:00 Test Item Value Reference Range Interpretation [...] S NOT APPLICABLE FOR DIALYSIS PATIEN TS. Sales Account Specialist ID - AAHAMIDPOCT-GLUCOSE [id number] 12:55:00 Test Item Value Reference Range Interpretation Comments POC-GLUCOSE METER 113 mg/dL 70-110 H : TESTED A T [facility] 6720 (BEAKER) (test code = [place], 1538) [address]: Sales Account Specialist/Techni tressa ID = [id number] for Analisa monroy (contract), Yuli sloan BASIC METABOLIC [id number] 10:00:00 Test Item Value Reference Range Interpretation [...] S NOT APPLICABLE FOR DIALYSIS PATIEN TS. Sales Account Specialist ID - AAHAMIDB-type Natriuretic Factor (BNP)2021-03-29 09:49:00 Test Item Value Reference Range Interpretation Comments BNP (test code = 67289-4) 315 pg/mL 0-100 H STACY (test code = STACY) Sales Account Specialist ID - AAHAMID Lab Interpretation (test Abnormal code = 91786-5) [facility] (BNP)2021-03-29 09:49:00 Test Item Value Reference Range Interpretation Comments BNP (test code = 98750-7) 315 pg/mL 0-100 H STACY (test code = STACY) Sales Account Specialist ID - AAHAMID Lab Interpretation (test Abnormal code = 30869-2) [facility] (BNP)2021-03-29 09:49:00 Test Item Value Reference Range Interpretation Comments BNP (test code = 84043-8) 315 pg/mL 0-100 H STACY (test code = STACY) Sales Account Specialist ID - AAHAMID Lab Interpretation (test Abnormal code = 49209-0) [facility] (BNP)2021-03-29 09:49:00 Test Item Value Reference Range Interpretation Comments BNP (test code = 18454-6) 315 pg/mL 0-100 H STACY (test code = STACY) Sales Account Specialist ID - AAHAMID Lab Interpretation (test Abnormal code = 88349-2) [facility] (BNP)2021-03-29 09:49:00 Test Item Value Reference Range Interpretation Comments BNP (test code = 54657-6) 315 pg/mL 0-100 H STACY (test code = STACY) Sales Account Specialist ID - AAHAMID Lab Interpretation (test Abnormal code = 06043-3) [facility] (BNP)2021-03-29 09:49:00 Test Item Value Reference Range Interpretation Comments BNP (test code = 48177-6) 315 pg/mL 0-100 H STACY (test code = STACY) Sales Account Specialist ID - AAHAMID Lab Interpretation (test Abnormal code = 12381-9) [facility]B-[facility] NATRIURETIC FACTOR (BNP)2021-03-29 09:49:00 Test Item Value Reference Range Interpretation Comments B-TYPE NATRIURETIC PEPTIDE (BEAKER) 315 pg/mL 0-100 H (test code = 700) Sales Account Specialist ID - AASTEPHANYIDVANCOMYCIN LEVEL, [id number] 09:45:00 Test Item Value Reference Range Interpretation Comments VANCOMYCIN RANDOM (BEAKER) (test 6.7 ug/mL code = 523) Reference Range: No NormalsOperator ID - AASTEPHANYIDManual Iodemozmnwzb4763-65-86 07:17:00 Test Item Value Reference Range Interpretation [...] = 3438) STACY (test code = STACY) Sales Account Specialist ID - Daisy Franklin comments: Slide comments: Lab Interpretation Abnormal (test code = 93725-9) [facility]Manual Buvjajlckeeg4238-08-02 07:17:00 Test Item Value Reference Range Interpretation [...] = 3438) STACY (test code = STACY) Sales Account Specialist ID - Daisy DaiKrys comments: Slide comments: Lab Interpretation Abnormal (test code = 26355-1) [facility] Oiedscszgeka5249-48-78 07:17:00 Test Item Value Reference Range Interpretation [...] = 3438) STACY (test code = STACY) Sales Account Specialist ID - Daisy Franklin comments: Slide comments: Lab Interpretation Abnormal (test code = 64793-9) [facility] Splftjoxbxdy9407-64-15 07:17:00 Test Item Value Reference Range Interpretation [...] = 3438) STACY (test code = STACY) Sales Account Specialist ID - Daisy Franklin comments: Slide comments: Lab Interpretation Abnormal (test code = 20765-8) [facility] Wdxyxbpslrfe3777-26-35 07:17:00 Test Item Value Reference Range Interpretation [...] = 3438) STACY (test code = STACY) Sales Account Specialist ID - Daisy Franklin comments: Slide comments: Lab Interpretation Abnormal (test code = 65266-4) [facility] Uitcewlosnyu6738-71-04 07:17:00 Test Item Value Reference Range Interpretation [...] = 3438) STACY (test code = STACY) Sales Account Specialist ID - Daisy Franklin comments: Slide comments: Lab Interpretation Abnormal (test code = 52221-3) [facility] HospitalCB [facility]/PLT COUNT & AUTO [id number] 07:17:00 Test Item Value Reference Range Interpretation [...] CONCENTRATION Adequate (CELLAVISION)(BEAKER) (test code = 3438) Sales Account Specialist ID - Daisy Franklin comments: Slide comments:TSH/Free T4 If Axfpipjli4247-18-86 06:43:00 Test Item Value Reference Range Interpretation Comments TSH (test code = 1.408 See_Comment [Automated 38986-3) message] The system which generated this result transmit saulo reference range : 0.350 - 4.940 uIU/mL. The reference range was not used to interpret this result as normal/abnormal . STACY (test code = STACY) Sales Account Specialist ID - AME M Lab Interpretation Normal (test code = 22280-2) [facility]TS/Free T4 If Uqnomptbs7307-81-99 06:43:00 Test Item Value Reference Range Interpretation Comments TSH (test code = 1.408 See_Comment [Automated 40936-1) message] The system which generated this result transmit saulo reference range : 0.350 - 4.940 uIU/mL. The reference range was not used to interpret this result as normal/abnormal . STACY (test code = STACY) Sales Account Specialist ID - AME M Lab Interpretation Normal (test code = 90650-2) [facility]TS/Free T4 If Yogeyqjqx0322-96-06 06:43:00 Test Item Value Reference Range Interpretation Comments TSH (test code = 1.408 See_Comment [Automated 61482-4) message] The system which generated this result transmit saulo reference range : 0.350 - 4.940 uIU/mL. The reference range was not used to interpret this result as normal/abnormal . STACY (test code = STACY) Sales Account Specialist ID - AME M Lab Interpretation Normal (test code = 86721-3) [facility]/Free T4 If Kltwnodmm0674-43-49 06:43:00 Test Item Value Reference Range Interpretation Comments TSH (test code = 1.408 See_Comment [Automated 31529-8) message] The system which generated this result transmit saulo reference range : 0.350 - 4.940 uIU/mL. The reference range was not used to interpret this result as normal/abnormal . STACY (test code = STACY) Sales Account Specialist ID Doron White Lab Interpretation Normal (test code = 00335-2) [facility]/Free T4 If Auvlkzdxj5403-05-84 06:43:00 Test Item Value Reference Range Interpretation Comments TSH (test code = 1.408 See_Comment [Automated 00408-1) message] The system which generated this result transmit saulo reference range : 0.350 - 4.940 uIU/mL. The reference range was not used to interpret this result as normal/abnormal . STACY (test code = STACY) Sales Account Specialist ID Doron White Lab Interpretation Normal (test code = 23311-0) [facility]/Free T4 If Cexrkgghf3373-94-45 06:43:00 Test Item Value Reference Range Interpretation Comments TSH (test code = 1.408 See_Comment [Automated 47071-5) message] The system which generated this result transmit saulo reference range : 0.350 - 4.940 uIU/mL. The reference range was not used to interpret this result as normal/abnormal . STACY (test code = STACY) Sales Account Specialist ID Doron White Lab Interpretation Normal (test code = 33896-9) [facility]/FREE T4 IF [id number] 06:43:00 Test Item Value Reference Range Interpretation Comments THYROID STIMULATING HORMONE 1.408 uIU/mL 0.350-4.940 (BEAKER) (test code = 772) Sales Account Specialist ID - AME GARCIAASIC METABOLIC [id number] 06:03:00 Test Item Value Reference Range Interpretation [...] S NOT APPLICABLE FOR DIALYSIS PATIEN TS. Sales Account Specialist ID - DBURINALYSIS W/ REFLEX URINE [id number] 03:52:00 Test Item Value Reference Range Interpretation [...] = 1521) SOURCE(BEAKER) (test code = 2795) Sales Account Specialist ID - [auto]Sales Account Specialist ID - techLactic acid, [id number] 23:23:00 Test Item Value Reference Range Interpretation Comments Lactate, Venous (test code = 1.97 mmol/L 0.5-2.2 2872) STACY (test code = STACY) Sales Account Specialist ID - DB Lab Interpretation (test Normal code = 62722-7) [facility] [id number] 23:23:00 Test Item Value Reference Range Interpretation Comments Lactate, Venous (test code = 1.97 mmol/L 0.50-2.20 2872) STACY (test code = STACY) Sales Account Specialist ID - DB Lab Interpretation (test Normal code = 96167-0) [facility] [id number] 23:23:00 Test Item Value Reference Range Interpretation Comments Lactate, Venous (test code = 1.97 mmol/L 0.50-2.20 2872) STACY (test code = STACY) Sales Account Specialist ID - DB Lab Interpretation (test Normal code = 02732-0) [facility] [id number] 23:23:00 Test Item Value Reference Range Interpretation Comments Lactate, Venous (test code = 1.97 mmol/L 0.50-2.20 2872) STACY (test code = STACY) Sales Account Specialist ID - DB Lab Interpretation (test Normal code = 24638-6) [facility] [id number] 23:23:00 Test Item Value Reference Range Interpretation Comments Lactate, Venous (test code = 1.97 mmol/L 0.50-2.20 2872) STACY (test code = STACY) Sales Account Specialist ID - DB Lab Interpretation (test Normal code = 79574-3) [facility] [id number] 23:23:00 Test Item Value Reference Range Interpretation Comments Lactate, Venous (test code = 1.97 mmol/L 0.50-2.20 2872) STACY (test code = STACY) Sales Account Specialist ID - DB Lab Interpretation (test Normal code = 75719-7) [facility] [id number] 23:23:00 Test Item Value Reference Range Interpretation Comments LACTATE BLOOD VENOUS (2) (BEAKER) 1.97 mmol/L 0.50-2.20 (test code = 2872) Sales Account Specialist ID - [id number]-[id number] 23:21:00 Test Item Value Reference Range Interpretation [...] exclusion of thrombosis is within 95-100% range. PT/[id number] 23:19:00 Test Item Value Reference Interpretation Comments Range Protime (test code = 17.6 See_Comment H [Autom ated 5732-2) message] The system which generated this result transmitted reference range : 11.9 - 14.2 seconds. The reference range was not used to interpret this result as normal/abnormal . INR (test code = 1.47 See_Comment [Automated 3041-6) message] The system which generated this result transmitted reference range : <=5.90. The reference range was not used to interpret this result as normal/abnormal . PTT (test code = 35.1 See_Comment [Automated 08313-7) message] The system which generated this result [...] valves. Lab Interpretation Abnormal (test code = 48359-8) [id number] 23:19:00 Test Item Value Reference Interpretation Comments [...] PTT (test code = 35.1 See_Comment [Automated 62414-7) message] The system which generated this result [...] valves. Lab Interpretation Abnormal (test code = 86045-3) [facility][id number] 23:19:00 Test Item Value Reference Interpretation Comments [...] PTT (test code = 35.1 See_Comment [Automated 06663-8) message] The system which generated this result [...] valves. Lab Interpretation Abnormal (test code = 43212-9) [facility][id number] 23:19:00 Test Item Value Reference Interpretation Comments [...] PTT (test code = 35.1 See_Comment [Automated 10612-1) message] The system which generated this result transmitted reference range : 22.5 - 36.0 seconds. The reference range was not used to interpret this result as normal/abnormal . STAYC (test code = RECOMMENDED STACY) COUMADIN/WARFARIN INR THERAPY RANGESSTANDARD DOSE: 2.0 - 3.0 Includes: PROPHYLAXIS for venous thrombosis, systemic embolization; TREATMENT for venous thrombosis and/or pulmonary embolus.HIGH RISK: Target INR is 2.5-3.5 for patients with mechanical heart valves. Lab Interpretation Abnormal (test code = 29140-4) [facility][id number] 23:19:00 Test Item Value Reference Interpretation Comments [...] PTT (test code = 35.1 See_Comment [Automated 05341-1) message] The system which generated this result [...] valves. Lab Interpretation Abnormal (test code = 94963-1) [facility][id number] 23:19:00 Test Item Value Reference Interpretation Comments Range Protime (test code = 17.6 See_Comment H [Autom ated 5902-2) message] The system which generated this result transmitted reference range : 11.9 - 14.2 seconds. The reference range was not used to interpret this result as normal/abnormal . INR (test code = 1.47 See_Comment [Automated 4201-6) message] The system which generated this result transmitted reference range : <=5.90. The reference range was not used to interpret this result as normal/abnormal . PTT (test code = 35.1 See_Comment [Automated 82385-3) message] The system which generated this result [...] valves. Lab Interpretation Abnormal (test code = 96566-2) [facility][id number] 23:19:00 Test Item Value Reference Range Interpretation [...] for patients with mechanical heart valves.COMPREHENSIVE METABOLIC [id number] 23:14:00 Test Item Value Reference Range Interpretation [...] S NOT APPLICABLE FOR DIALYSIS PATIEN TS. Sales Account Specialist ID - DBBlood gas, [id number] 23:12:00 Test Item Value Reference Range Interpretation Comments pH, Arterial (test code 7.52 7.35-7.45 H = 2744-1) pCO2, Arterial (test 28 See_Comment L [Autom ated message] code = 2019-) The system [employer] generated this result transmit saulo reference range : 35 - 45 mm Hg. The reference range was not used to interpret this result as normal/abnormal . pO2, Arterial (test 186 See_Comment H [Automa saulo message] code = 2703-7) The system [facility] generated this result transmit saulo reference [...] 44 Lab Interpretation Abnormal (test code = 21537-9) [facility], [id number] 23:12:00 Test Item Value Reference Range Interpretation Comments pH, Arterial (test code 7.52 7.35-7.45 H = 2744-1) pCO2, Arterial (test 28 See_Comment L [Autom ated message] code = 2019-02) The system [employer] generated this result transmit saulo reference range : 35 - 45 mm Hg. The reference range was not used to interpret this result as normal/abnormal . pO2, Arterial (test 186 See_Comment H [Automa saulo message] code = 2703-7) The system [facility] generated this result transmit saulo reference [...] 44 Lab Interpretation Abnormal (test code = 75016-7) [facility], [id number] 23:12:00 Test Item Value Reference Range Interpretation Comments pH, Arterial (test code 7.52 7.35-7.45 H = 2744-1) pCO2, Arterial (test 28 See_Comment L [Autom ated message] code = 2019-) The system [employer] generated this result transmit saulo reference range : 35 - 45 mm Hg. The reference range was not used to interpret this result as normal/abnormal . pO2, Arterial (test 186 See_Comment H [Automa saulo message] code = 2703-7) The system [employer] generated this result transmit saulo reference range [...] 44 Lab Interpretation Abnormal (test code = 82742-2) [facility] gas, [id number] 23:12:00 Test Item Value Reference Range Interpretation Comments pH, Arterial (test code 7.52 7.35-7.45 H = 2744-1) pCO2, Arterial (test 28 See_Comment L [Autom ated message] code = 2018-) The system [employer] generated this result transmit saulo reference range : 35 - 45 mm Hg. The reference range was not used to interpret this result as normal/abnormal . pO2, Arterial (test 186 See_Comment H [Automa saulo message] code = 2703-7) The system [employer] generated this result transmit saulo reference range [...] 44 Lab Interpretation Abnormal (test code = 65366-8) [facility] gas, [id number] 23:12:00 Test Item Value Reference Range Interpretation Comments pH, Arterial (test code 7.52 7.35-7.45 H = 2744-1) pCO2, Arterial (test 28 See_Comment L [Autom ated message] code = 2018-) The system [employer] generated this result transmit saulo reference range : 35 - 45 mm Hg. The reference range was not used to interpret this result as normal/abnormal . pO2, Arterial (test 186 See_Comment H [Automa saulo message] code = 2703-7) The system [employer] generated this result transmit saulo reference range [...] 44 Lab Interpretation Abnormal (test code = 07105-4) [facility] gas, [id number] 23:12:00 Test Item Value Reference Range Interpretation Comments pH, Arterial (test code 7.52 7.35-7.45 H = 2744-1) pCO2, Arterial (test 28 See_Comment L [Autom ated message] code = 2018-) The system [employer] generated this result transmit saulo reference range : 35 - 45 mm Hg. The reference range was not used to interpret this result as normal/abnormal . pO2, Arterial (test 186 See_Comment H [Automa saulo message] code = 2703-7) The system [employer] generated this result transmit saulo reference range [...] 44 Lab Interpretation Abnormal (test code = 94793-8) [facility], [id number] 23:12:00 Test Item Value Reference Range Interpretation Comments PH ARTERIAL (BEAKER) (test code = 7.52 7.35-7.45 H 383) PCO2 ARTERIAL (BEAKER) (test code 28 mm Hg 35-45 L = 384) PO2 ARTERIAL (BEAKER) (test code = 186 mm Hg 80-90 H 385) O2 SATURATION ARTERIAL (BEAKER) 99.4 % 96.0-97.0 H (test code = 386) HCO3 ARTERIAL (BEAKER) (test code 22 mmol/L -29 = 388) BASE EXCESS ARTERIAL (BEAKER) 0.1 mmol/L -2.0-3.0 (test code = 387) PATIENT TEMPERATURE (BEAKER) (test 36.5 code = 1818) FIO2 (BEAKER) (test code = 1819) 44.0 CALCIUM, [id number] 23:12:00 Test Item Value Reference Range Interpretation Comments CALCIUM IONIZED (BEAKER) (test 1.08 mmol/L 1.12-1.27 L code = 698) PH, BLOOD (BEAKER) (test code = 7.51 1810) [id number] 23:10:00 Test Item Value Reference Range Interpretation Comments MAGNESIUM (BEAKER) 1.8 mg/dL 1.6-2.6 Specimen slightly (test code = 627) hemolyzed Sales Account Specialist ID - [id number] 23:10:00 Test Item Value Reference Range Interpretation Comments PHOSPHORUS (BEAKER) 2.8 mg/dL 2.3-4.7 Specimen slightly (test code = 604) hemolyzed Sales Account Specialist ID - DBCREATINE KINASE (CK)2021-03-28 23:10:00 Test Item Value Reference Range Interpretation Comments CREATINE KINASE TOTAL (BEAKER) (test 23 U/L 29-200 L code = 380) Sales Account Specialist ID - DBC-REACTIVE [id number] 23:10:00 Test Item Value Reference Range Interpretation Comments C-REACTIVE PROTEIN (BEAKER) (test 14.35 mg/dL 0.00-0.50 H code = 676) Sales Account Specialist ID - DBCBC (Hemogram only)2021-03-28 23:08:00 Test Item Value Reference Range Interpretation Comments WBC (test code = 6690-2) 11.6 See_Comment H [A utomated message] The system [employer] generated this result transmitted ref erence range: 3.5 - 10 .5 K/L. The refe rence range was not u sed to interpret this result as normal/abnor mal. RBC (test code = 789-8) 3.69 See_Comment L [Au tomated message] The system [employer] generated this result transmitted ref erence range: 4.63 - 6 .08 M/L. The refe rence range was not u sed to interpret this result as normal/abnor mal. MCHC (test code = 786-4) 29.6 See_Comment L [A utomated message] The system [employer] generated this result transmitted ref erence range: [...] See_Comment [Aut omated message] 777-3) The system [employer] generated this result transmitted ref erence range: 150 - 45 0 K/CU MM. The referen ce range was not u sed to interpret this result as normal/abnor mal. MPV (test code = 10.5 fL 9.4-12.4 43817-5) nRBC (test code = 413) 0 See_Comment [Aut omated message] The system [employer] generated this result transmitted ref erence range: 0 - 0 /1 00 WBC. The refere nce range was not u sed to interpret this result as normal/abnor mal. Lab Interpretation (test Abnormal code = 95790-1) [facility] (Hemogram only)2021-03-28 23:08:00 Test Item Value Reference Range Interpretation Comments WBC (test code = 6690-2) 11.6 See_Comment H [A utomated message] The system [employer] generated this result transmitted ref erence range: 3.5 - 10 .5 K/L. The refe rence range was not u sed to interpret this result as normal/abnor mal. RBC (test code = 789-8) 3.69 See_Comment L [Au tomated message] The system [employer] generated this result transmitted ref erence range: 4.63 - 6 .08 M/L. The refe rence range was not u sed to interpret this result as normal/abnor mal. MCHC (test code = 786-4) 29.6 See_Comment L [A utomated message] The system [employer] generated this result transmitted ref erence range: [...] See_Comment [Aut omated message] 777-3) The system [employer] generated this result transmitted ref erence range: 150 - 45 0 K/CU MM. The referen ce range was not u sed to interpret this result as normal/abnor mal. MPV (test code = 10.5 fL 9.4-12.4 84092-3) nRBC (test code = 413) 0 See_Comment [Aut omated message] The system [employer] generated this result transmitted ref erence range: 0 - 0 /1 00 WBC. The refere nce range was not u sed to interpret this result as normal/abnor mal. Lab Interpretation (test Abnormal code = 64913-7) [facility] 23:08:00 Test Item Value Reference Range Interpretation Comments WBC (test code = 6690-2) 11.6 See_Comment H [A utomated message] The system [employer] generated this result transmitted ref erence range: 3.5 - 10 .5 K/L. The refe rence range was not u sed to interpret this result as normal/abnor mal. RBC (test code = 789-8) 3.69 See_Comment L [Au tomated message] The system [employer] generated this result transmitted ref erence range: 4.63 - 6 .08 M/L. The refe rence range was not u sed to interpret this result as normal/abnor mal. MCHC (test code = 786-4) 29.6 See_Comment L [A utomated message] The system [employer] generated this result transmitted ref erence range: [...] See_Comment [Aut omated message] 777-3) The system [employer] generated this result transmitted ref erence range: 150 - 45 0 K/CU MM. The referen ce range was not u sed to interpret this result as normal/abnor mal. MPV (test code = 10.5 fL 9.4-12.4 35766-7) nRBC (test code = 413) 0 See_Comment [Aut omated message] The system [employer] generated this result transmitted ref erence range: 0 - 0 /1 00 WBC. The refere nce range was not u sed to interpret this result as normal/abnor mal. Lab Interpretation (test Abnormal code = 09985-8) [facility] 23:08:00 Test Item Value Reference Range Interpretation Comments WBC (test code = 6690-2) 11.6 See_Comment H [A utomated message] The system [employer] generated this result transmitted ref erence range: 3.5 - 10 .5 K/L. The refe rence range was not u sed to interpret this result as normal/abnor mal. RBC (test code = 789-8) 3.69 See_Comment L [Au tomated message] The system [employer] generated this result transmitted ref erence range: 4.63 - 6 .08 M/L. The refe rence range was not u sed to interpret this result as normal/abnor mal. MCHC (test code = 786-4) 29.6 See_Comment L [A utomated message] The system [employer] generated this result transmitted ref erence range: [...] See_Comment [Aut omated message] 777-3) The system [employer] generated this result transmitted ref erence range: 150 - 45 0 K/CU MM. The referen ce range was not u sed to interpret this result as normal/abnor mal. MPV (test code = 10.5 fL 9.4-12.4 89131-9) nRBC (test code = 413) 0 See_Comment [Aut omated message] The system [employer] generated this result transmitted ref erence range: 0 - 0 /1 00 WBC. The refere nce range was not u sed to interpret this result as normal/abnor mal. Lab Interpretation (test Abnormal code = 00399-6) [facility] 23:08:00 Test Item Value Reference Range Interpretation Comments WBC (test code = 6690-2) 11.6 See_Comment H [A utomated message] The system [employer] generated this result transmitted ref erence range: 3.5 - 10 .5 K/L. The refe rence range was not u sed to interpret this result as normal/abnor mal. RBC (test code = 789-8) 3.69 See_Comment L [Au tomated message] The system [employer] generated this result transmitted ref erence range: 4.63 - 6 .08 M/L. The refe rence range was not u sed to interpret this result as normal/abnor mal. MCHC (test code = 786-4) 29.6 See_Comment L [A utomated message] The system [employer] generated this result transmitted ref erence range: [...] See_Comment [Aut omated message] 777-3) The system [employer] generated this result transmitted ref erence range: 150 - 45 0 K/CU MM. The referen ce range was not u sed to interpret this result as normal/abnor mal. MPV (test code = 10.5 fL 9.4-12.4 56525-5) nRBC (test code = 413) 0 See_Comment [Aut omated message] The system [employer] generated this result transmitted ref erence range: 0 - 0 /1 00 WBC. The refere nce range was not u sed to interpret this result as normal/abnor mal. Lab Interpretation (test Abnormal code = 04212-0) [facility] (Hemogram only)2021-03-28 23:08:00 Test Item Value Reference Range Interpretation Comments WBC (test code = 6690-2) 11.6 See_Comment H [A utomated message] The system [employer] generated this result transmitted ref erence range: 3.5 - 10 .5 K/L. The refe rence range was not u sed to interpret this result as normal/abnor mal. RBC (test code = 789-8) 3.69 See_Comment L [Au tomated message] The system [employer] generated this result transmitted ref erence range: 4.63 - 6 .08 M/L. The refe rence range was not u sed to interpret this result as normal/abnor mal. MCHC (test code = 786-4) 29.6 See_Comment L [A utomated message] The system [employer] generated this result transmitted ref erence range: [...] See_Comment [Aut omated message] 777-3) The system [employer] generated this result transmitted ref erence range: 150 - 45 0 K/CU MM. The referen ce range was not u sed to interpret this result as normal/abnor mal. MPV (test code = 10.5 fL 9.4-12.4 31021-0) nRBC (test code = 413) 0 See_Comment [Aut omated message] The system [employer] generated this result transmitted ref erence range: 0 - 0 /1 00 WBC. The refere nce range was not u sed to interpret this result as normal/abnor mal. Lab Interpretation (test Abnormal code = 29790-8) [facility] (HEMOGRAM ONLY)2021-03-28 23:08:00 Test Item Value [...] code = 413) RAD, ABDOMEN/KUB, 1 VIEW [id number] 22:32:00Reason for exam:->PEG tubeReason for exam:->[facility]ended [facility] 1945 Sex: MFINAL REPORT TECHNIQUE: One view of the abdomen. INDICATION: 75-year-old man with gastrostomy tube and distended abdomen. COMPARISON: None. IMPRESSION:Gastrostomy tube terminates over the expected region of the distal stomach. Intact laparoscopic gastric band in place. Nonobstructive bowel gas pattern. No acute osseous abnormality. Soft tissues are unremarkable. Signed: Lacey Barrett Verified Date/Time: 03/28/2021 22:32:51 Reading Location: [address] ConsultReading Room RAD, CHEST, 1 VIEW, NON [id number] 22:25:00Reason for exam:->[facility] : 1945 Sex: [...] 22:25:25 XR chest 1 view portable / [id number] 22:25:00Interface, External Ris In - 03/28/2021 10:27 [...] by: SASHA WONG MD on 03/28/2021 10:25 [facility] 10:13:00 Test Item Value Reference Range Interpretation Comments AMMONIA (test code = AMM) 93 umol/L 11-32 H
[2021-09-24] MEDS ORDERED: NA CHLORIDE 0.9% 1,000 ML ONE (20:42)
[2021-09-24 20:51] LABS: Urine Blood 2+ (Negative); Urine Glucose Negative (Negative); Urine Protein 1+ (Negative)
[2021-09-24] MEDS ORDERED: NA CHLORIDE 0.9% 100 ML IV ONE (21:40)
[2021-09-24] MEDS ORDERED: Meropenem 1000 MG/VIAL IV ONE (21:40)
[2021-09-24 21:50] LABS: Urine Bacteria >50 /HPF (NONE SEEN); Urine RBC <5 /HPF (NONE SEEN); Urine Urothelial Cells <5 /HPF (NONE SEEN)
[2021-09-24 21:58] LABS: SARS-COV-2 RT PCR NEGATIVE (NEGATIVE)
[2021-09-24 22:04] LABS: Absolute Lymphocytes (CBC) 2.1 K/uL (0.7-4.9); Hematocrit 36.7 % (39.6-49.0); Lymphocytes % 16.8 % (15.3-44.8); MPV 8.3 fL (7.6-11.3); RBC Red Blood Cell Count 3.87 M/uL (4.33-5.43)
[2021-09-24 22:29] LABS: Potassium 3.6 mmol/L (3.5-5.1)
--- NOTE | 2021-09-24 22:46 | ER ---
Nurse's Notes [facility] Name: Zbigniew Mitchell Age: 76 yrs Sex: Male : 1945 Arrival Date: 09/24/2021 Time: 20:29 Bed 2 Private MD: Diagnosis: Altered mental status, unspecified;UTI/ Urinary tract infection, site not specified Presentation: 09/24 20:30 Chief complaint: EMS states: EMS states that labs were done on the pt and he had "high kd3 sodium". unknown how high. vitals are stable. Coronavirus screen: Vaccine status: Patient reports receiving the 2nd dose of the covid vaccine. Ebola Screen: No symptoms or risks identified at this time. Initial Sepsis Screen: Does the patient meet any 2 criteria? No. Patient's initial sepsis screen is negative. Does the patient have a suspected source of infection? No. Patient's initial sepsis screen is negative. Risk Assessment: Do you want to hurt yourself or someone else? Patient reports no desire to harm self or others. Onset of symptoms was September 24, 2021. 20:30 Method Of Arrival: EMS: [facility] kd3 20:30 Acuity: ANDRE 3 kd3 Historical: - Allergies: 20:32 PENICILLINS; kd3 - Home Meds: 20:32 amlodipine 2.5 mg tab 1 tab twice a day [Active]; Dilantin 100 mg Oral 100 mg every 8 kd3 hours for epilepsy [Active]; Eliquis 2.5 mg Oral tab 2 times per day [Active]; famotidine 20 mg Oral tab every 12 hours [Active]; folic acid 1 mg Oral tab 1 tab once daily [Active]; furosemide 20 mg Oral tab 1 tab once daily [Active]; hydroxyzine HCl 25 mg Oral tab 1 tab as needed for Pruritus of Skin [Active]; megestrol 400 mg/10 mL (10 mL) Oral susp once daily [Active]; mupirocin 2 % Topical oint twice daily [Active]; Neurontin 100 mg Oral cap 3 times per day [Active]; nitroglycerin 0.4 mg Oral cpER PRN [Active]; Prozac 40 mg Oral cap 1 cap once daily [Active]; Synthroid 150 mcg Oral tab 1 tab once daily [Active]; valproic acid 250 mg Oral cap twice daily [Active]; - PMHx: 20:32 Atrial Fib; Bipolar disorder; Bronchitis; Cervicalgia; Chronic pain; constipation; 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 - Social history:: Smoking status: unknown. - Family history:: not pertinent. - Hospitalizations: : The patient was recently seen at [facility]. Screenin:34 Abuse screen: Denies threats or abuse. Denies injuries from another. Nutritional kd3 screening: No deficits noted. Tuberculosis screening: No symptoms or risk factors identified. Fall Risk IV access (20 points). Mental Status-. Assessment: 21:01 General: Appears unkempt, Behavior is calm. Pain: Unable to use pain scale. Patient is as6 disoriented. Neuro: Level of Consciousness is confused, pt at baseline . Oriented to none. Respiratory: Airway is patent Trachea midline Respiratory effort is even, unlabored, Respiratory pattern is regular, symmetrical, cough. : Gray in place to gravity drainage Urine is cloudy. Musculoskeletal: pt had previous stroke, pt wearing boots. 21:45 Reassessment: No changes from previously documented assessment. as6 23:12 General: drsg to sacrum . as6 Vital Signs: 20:35 BP 159 / 86; Pulse 98; Resp 18; Temp 98; Pulse Ox 98% on R/A; Weight 81.65 kg; Height 5 kd3 ft. 10 in. (177.80 cm); 21:45 BP 128 / 79; Pulse 76; Resp 26 S; Pulse Ox 100% on R/A; as6 23:00 BP 120 / 63; Pulse 76; Resp 20 S; Pulse Ox 99% on R/A; as6 09/25 00:00 BP 104 / 88; Pulse 59; Resp 13 S; Pulse Ox 98% on R/A; as6 09/24 20:35 Body Mass Index 25.83 (81.65 kg, 177.80 cm) kd3 ED Course: 09/24 20:29 Patient arrived in ED. as6 20:30 Rio Oconnor MD is Attending Physician. rn 20:32 Triage completed. kd3 20:33 Slawson, [place], RN is Primary Nurse. as6 20:50 Inserted saline lock: 22 gauge in right forearm, using aseptic technique. Blood as6 collected. 20:55 Urine Culture Sent. as6 20:55 Urine Microscopic Only Sent. as6 21:00 Basic Metabolic Panel Sent. as6 21:00 CBC with Automated Diff Sent. as6 21:00 Blood Culture Adult (2) Sent. as6 21:00 Procalcitonin Sent. as6 21:00 Lactate Sent. as6 21:00 Urine Microscopic Only Sent. as6 21:00 Protime (+inr) Sent. as6 21:00 Ptt, Activated Sent. as6 21:00 Basic Metabolic Panel Sent. as6 21:00 CBC with Diff Sent. as6 21:00 Arm band placed on. as6 21:01 Bed in low position. Call light in reach. Side rails up X2. traffic monitor specialist on. Pulse as6 ox on. NIBP on. 22:42 Nick Oconnor MD is Hospitalizing Provider. rn 23:28 Gray cath removed intact. kd3 23:28 Gray cath inserted, using sterile technique, 18 Fr., by il, balloon inflated, to kd3 gravity drainage. 09/25 00:24 No provider procedures requiring assistance completed. Patient admitted, IV remains in as6 place. Administered Medications: 09/24 20:59 Drug: NS 0.9% 1000 ml Route: IV; Rate: 1000 ml; Site: right forearm; as6 09/25 00:32 Follow up: Response: No adverse reaction; IV Status: Completed infusion; IV Intake: as6 1000ml 09/24 21:41 Drug: Meropenem 1 grams Route: IV; Rate: calculated rate; Site: right forearm; as6 09/25 00:33 Follow up: Response: No adverse reaction; IV Status: Completed infusion; IV Intake: as6 100ml Intake: 00:32 IV: 1000ml; Total: 1000ml. as6 00:33 IV: 100ml; Total: 1100ml. as6 Outcome: 09/24 22:45 Decision to Hospitalize by Provider. rn 09/25 00:25 Admitted to Med/surg accompanied by tech, via stretcher, room 229, with chart, Report as6 called to nurse for 229 Condition: stable 00:25 Patient left the ED. as6 Signatures: Rio Oconnor MD MD rn Slawson, [place], RN RN as6 Melly Ford, RN RN kd3 Corrections: (The following items were deleted from the chart) 09/24 21:08 21:00 MAGNESIUM+C.LAB.STEVENZ drawn and sent. as6 EDMS
--- NOTE | 2021-09-24 22:46 | EDPHYS ---
Physician Documentation [facility] Name: Zbigniew Mitchell Age: 76 yrs Sex: Male : 1945 Arrival Date: 09/24/2021 Time: 20:29 Bed 2 Private MD: ED Physician Rio Oconnor HPI: 09/24 20:49 This 76 yrs old Male presents to ER via EMS with complaints of hypernatremia. rn 20:49 half-way sent patient for hypernatremia and "other blood abnormalities", although rn to results passed on to EMS. Patient states feels normal. Denies focal pain. No fall or trauma. Has had problems with sodium before.. Onset: The symptoms/episode began/occurred at an unknown time. Severity of symptoms:. The patient has experienced similar episodes in the past. The patient has not recently seen a physician. Historical: - Allergies: 20:32 PENICILLINS; kd3 - Home Meds: 20:32 amlodipine 2.5 mg tab 1 tab twice a day [Active]; Dilantin 100 mg Oral 100 mg every 8 kd3 hours for epilepsy [Active]; Eliquis 2.5 mg Oral tab 2 times per day [Active]; famotidine 20 mg Oral tab every 12 hours [Active]; folic acid 1 mg Oral tab 1 tab once daily [Active]; furosemide 20 mg Oral tab 1 tab once daily [Active]; hydroxyzine HCl 25 mg Oral tab 1 tab as needed for Pruritus of Skin [Active]; megestrol 400 mg/10 mL (10 mL) Oral susp once daily [Active]; mupirocin 2 % Topical oint twice daily [Active]; Neurontin 100 mg Oral cap 3 times per day [Active]; nitroglycerin 0.4 mg Oral cpER PRN [Active]; Prozac 40 mg Oral cap 1 cap once daily [Active]; Synthroid 150 mcg Oral tab 1 tab once daily [Active]; valproic acid 250 mg Oral cap twice daily [Active]; - PMHx: 20:32 Atrial Fib; Bipolar disorder; Bronchitis; Cervicalgia; Chronic pain; constipation; 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 - Social history:: Smoking status: unknown. - Family history:: not pertinent. - Hospitalizations: : The patient was recently seen at [facility]. ROS: 20:49 Constitutional: Negative for fever, chills, and weight loss, Eyes: Negative for injury, rn pain, redness, and discharge, Neck: Negative for injury, pain, and swelling, Cardiovascular: Negative for chest pain, palpitations, and edema, Respiratory: Negative for shortness of breath, cough, wheezing, and pleuritic chest pain, Abdomen/GI: Negative for abdominal pain, nausea, vomiting, diarrhea, and constipation, Back: Negative for injury and pain, MS/Extremity: Negative for injury and deformity, Skin: Negative for injury, rash, and discoloration, Neuro: Negative for headache, weakness, numbness, tingling, and seizure. 20:49 All other systems are negative. rn Exam: 20:49 Constitutional: This is a well developed, well nourished patient who is awake, alert, rn and in no acute distress. Head/Face: Normocephalic, atraumatic. Eyes: Periorbital areas with no swelling, redness, or edema. ENT: dry MM Cardiovascular: Regular rate, irregular rhythm. No pulse deficits. Respiratory: No increased work of breathing, no retractions or nasal flaring. Abdomen/GI: soft, non-tender, non-distended Skin: Warm, dry MS/ Extremity: Pulses equal, no cyanosis. NO lower ext edema, + stiff bilateral lower extremities, passively in crossed fashion with superficial pressure ulcer to top of foot. Neuro: Awake and alert, GCS 15 Vital Signs: 20:35 BP 159 / 86; Pulse 98; Resp 18; Temp 98; Pulse Ox 98% on R/A; Weight 81.65 kg; Height 5 kd3 ft. 10 in. (177.80 cm); 21:45 BP 128 / 79; Pulse 76; Resp 26 S; Pulse Ox 100% on R/A; as6 23:00 BP 120 / 63; Pulse 76; Resp 20 S; Pulse Ox 99% on R/A; as6 09/25 00:00 BP 104 / 88; Pulse 59; Resp 13 S; Pulse Ox 98% on R/A; as6 09/24 20:35 Body Mass Index 25.83 (81.65 kg, 177.80 cm) kd3 MDM: 09/24 20:30 Patient medically screened. rn 22:41 Differential Diagnosis altered mental status, sepsis, UTI, hypernatremia. Data rn reviewed: vital signs, nurses notes, lab test result(s), EKG, and as a result, I will admit patient. Counseling: I had a detailed discussion with the patient and/or guardian regarding: the historical points, exam findings, and any diagnostic results supporting the discharge/admit diagnosis, lab results, radiology results, the need for further work-up and treatment in the hospital. Response to treatment: There is no appreciated change of the patient's symptoms at this time, and as a result, I will admit patient. Admission orders: after a detailed discussion of the patient's condition and case, the admit orders are written by me. 22:41 ED course: Pt with reported AMS, sodium looks ok, but elevated WBC and UTI, last rn culture showed ESBL. Will admit.. 09/24 20:32 Order name: CBC with Diff rn 09/24 20:32 Order name: Basic Metabolic Panel rn 09/24 20:32 Order name: Protime (+inr) rn 09/24 20:32 Order name: Ptt, Activated rn 09/24 20:32 Order name: Urine Culture rn 09/24 20:32 Order name: Urine Microscopic Only; Complete Time: 22:16 rn 09/24 20:32 Order name: Procalcitonin rn 09/24 20:32 Order name: Lactate; Complete Time: 22:39 09/24 20:32 Order name: Blood Culture Adult (2) rn 09/24 20:32 Order name: COVID-19/FLU A+B (Document "Date of Onset" if Symptomatic); Complete Time: rn 22:16 09/24 20:33 Order name: CBC with Automated Diff; Complete Time: 22:16 EDMI 09/24 20:33 Order name: Basic Metabolic Panel; Complete Time: 22:33 EDMI 09/24 20:51 Order name: Urine Dipstick-Ancillary; Complete Time: 20:52 EDMI 09/24 20:32 Order name: IV Start; Complete Time: 20:55 rn 09/24 20:32 Order name: Urine Dipstick-Ancillary (obtain specimen); Complete Time: 20:55 rn 09/24 20:32 Order name: Cardiac monitoring; Complete Time: 20:36 rn 09/24 20:32 Order name: O2 Sat Monitoring; Complete Time: 20:36 rn 09/24 21:09 Order name: Magnesium; Complete Time: 22:33 EDMS 09/24 23:02 Order name: Misc. Order: Please replace hankins; Complete Time: 23:25 la1 Administered Medications: 20:59 Drug: NS 0.9% 1000 ml Route: IV; Rate: 1000 ml; Site: right forearm; as6 09/25 00:32 Follow up: Response: No adverse reaction; IV Status: Completed infusion; IV Intake: as6 1000ml 09/24 21:41 Drug: Meropenem 1 grams Route: IV; Rate: calculated rate; Site: right forearm; as6 09/25 00:33 Follow up: Response: No adverse reaction; IV Status: Completed infusion; IV Intake: as6 100ml Disposition Summary: 09/24/21 22:45 Hospitalization Ordered Hospitalization Status: Inpatient Admission rn Provider: Nick Oconnor [facility]n [facility] rn Condition: Stable rn Problem: new rn Symptoms: have improved rn Bed/Room Type: Standard rn Room Assignment: 229(09/24/21 23:54) cg Diagnosis - Altered mental status, unspecified rn - UTI/ Urinary tract infection, site not specified rn Forms: - Medication Reconciliation Form rn - SBAR form rn Signatures: Dispatcher [employer] EDMI Rio Oconnor MD MD rn Attema, Lee, BUILDING TRADES TEACHER-C BUILDING TRADES TEACHER-Cla1 She Mcmillan, RN RN Mukul Alex RN NOEL as6 Melly Ford, RN RN kd3 Corrections: (The following items were deleted from the chart) 09/24 21:08 20:55 MAGNESIUM+C.LAB.BRZ ordered. EDMI EDMS 23:35 22:45 rn cg 23:54 23:35 228 [facility]
--- NOTE | 2021-09-24 23:07 | P.HP ---
Certification for Inpatient Patient admitted to: Inpatient With expected LOS: >2 Midnights Patient will require the following post-hospital care: None Practitioner: I am a practitioner with admitting privileges, knowledge of patient current condition, hospital course, and medical plan of care. Services: Services provided to patient in accordance with Admission requirements found in Title 42 Section 412.3 of the Code of Federal Regulations Patient History Date of Service: 09/24/21 Reason for admission: UTI History of Present Illness: 76-year-old male with history of atrial fibrillation, dementia, bipolar disorder, hypertension, hypothyroidism, hyperlipidemia presents to the emergency department for abnormal labs. correction sent patient over for reported abnormal sodium level. Patient was evaluated here in the emergency department his sodium level was within normal limits at time of evaluation although it was determined that patient has urinary tract infection, patient with history of multidrug-resistant UTIs including ESBL. Patient with mild leukocytosis, for this reason ED provider wishes to admit for further evaluation and management of UTI with history of MDR organisms. Allergies Penicillins Allergy (Verified 11/26/20 00:08) Anaphylaxis rabies bat serum Allergy (Uncoded 11/26/20 00:08) Rash Home Medications: PHENYTOIN ER Cap [Dilantin ER Cap*] 1 cap PO Q8HR 03/08/18 Calcium Carbonate/Vitamin D3 [Calcium 600-Vit D3 400 Tablet] 1 each PO DAILY 11/26/20 Fluoxetine HCl [Prozac] 40 mg PO DAILY 11/26/20 Gabapentin [Neurontin*] 100 mg PO TID 11/26/20 Levothyroxine Sodium [Synthroid] 150 mcg PO [id number] 11/26/20 Nitroglycerin [Nitrostat*] 0.4 mg SL PRN PRN 11/26/20 hydrOXYzine HCL [Atarax*] 25 mg PO BIDP PRN 11/26/20 Apixaban [Eliquis *] 2.5 mg PO BID 12/15/20 Acetaminophen [Tylenol] 2 tab PO Q6HP PRN 07/02/21 Codeine/APAP [Tylenol #3*] 1 tab PO Q6HP PRN 07/02/21 Famotidine 20 mg PO Q12H 07/02/21 Megestrol [Megace*] 10 ml PO DAILY 07/02/21 Multivit-Min/FA/Lycopen/Lutein [Complete Multivitamin Tab] 1 tab PO DAILY 07/02/21 Valproic Acid (As Sodium Salt) [Valproic Acid] 20 ml PO Q12H 07/02/21 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; cervicalgia; Chronic pain; constipation -: Atrial Fib; frequent falls; osteoarthritis -: Bronchitis; Hyperlipidemia; Bipolar disorder; encephalopathy; Diverticuliti -: Hypertension; Hypothyroidism; Seizures; Depression -: DEPRESSION -: DIVERTICULITIS -: CONSTIPATION -: MUSCLE WASTING/ATROPHY -: ALLERGIC RHINITIS -: NON-DISPLACED FRACTURE OF THE LEFT HUMERUS -: COGNITIVE COMMUNICATION DEFICIT -: OSTEOPOROSIS Past Surgical History: Unable to obtain Psychosocial/ Personal History: correction resident - Family History pARENTS Notes: PT IS CONFUSED; UNABLE TO RECALL/STATE - Social History Alcohol use: No CD- Drugs: No Caffeine use: No Place of Residence: Longterm Review of Systems is unable to be obtained (Dementia) Physical Examination - Physical Exam General: Alert, In no apparent distress, Oriented x1 HEENT: Mucous membr. moist/pink Respiratory: Normal air movement Cardiovascular: Regular rate/rhythm, Normal S1 S2 Capillary refill: <2 Seconds Gastrointestinal: Normal bowel sounds, No tenderness, No masses, No rebound Neurological: Normal speech, Sensation intact Urinary: Gray catheter (Gray in place upon arrival to ED, had catheter at long-term. ) - Studies Laboratory Data (last 24 hrs) 09/24/21 22:03: Sodium 144, Potassium 3.6, BUN 38 H, Creatinine 1.43 H, Glucose 75, Magnesium 2.0 D 09/24/21 21:31: WBC 12.60 H, Hgb 12.0 L, Hct 36.7 L, Plt Count 422 H 09/24/21 20:55: Magnesium Cancelled Assessment and Plan - Plan Assessment: Patient appears to be at baseline mental status we will continue to monitor. UTI, leukocytosis history of UTIs with MDR organisms complicated with chronic indwelling Gray catheter CKD 3 Alzheimer's dementia Atrial fibrillation History of seizure disorder Decubitus ulcerations of the buttocks Plan: UTI, leukocytosis history of UTIs with MDR organisms complicated with chronic indwelling Gray catheter: Patient with penicillin with urine and blood cultures with MDR's in the past all have been susceptible to meropenem. Patient was given meropenem in the emergency department, Gray catheter was in place upon arrival to the emergency department from long-term. Infectious disease consulted who has seen the patient in the past as well. Blood cultures were obtained in the emergency department. CKD 3: Not far from baseline continue hydration with D5W overnight, recheck daily. Counseled nephrology for worsening renal function. Alzheimer's dementia: Patient appears to be at baseline mental status we will continue to monitor. Atrial fibrillation: Monitor on telemetry, unsure if patient is still on anticoagulation therapy will need to obtain verify home medications restart as appropriate. History of seizure disorder: Obtain and continue medications as appropriate. Decubitus ulcerations of the buttocks: Wound healing consulted. DVT PPX: Lovenox for now, restart chronic anticoagulation if patient is still taking. Code status: Full Discharge Plan: Longterm Plan to discharge in: 72 Hours - Advance Directives Does patient have a Living Will: No Does patient have a Durable POA for Healthcare: No - Code Status/Comfort Care Code Status Assessed: Yes (FC) Critical Care: No Time Spent Managing Pts Care (In Minutes): 55
[2021-09-25] MEDS ORDERED: ONDANSETRON 4 MG/2 ML VIAL IV PRN (00:34)
[2021-09-25] MEDS: D5W 1,000 ML IV SCH ×2 (01:56→14:16)
[2021-09-25 05:36] LABS: Absolute Lymphocytes (CBC) 1.5 K/uL (0.7-4.9); Hematocrit 32.5 % (39.6-49.0); MPV 8.6 fL (7.6-11.3); RBC Red Blood Cell Count 3.45 M/uL (4.33-5.43)
[2021-09-25 05:57] LABS: ALT/SGPT < 10 U/L (12-78); AST/SGOT 14 U/L (15-37); Albumin 1.8 g/dL (3.4-5.0); Alkaline Phosphatase 43 U/L (45-117); BUN Blood Urea Nitrogen 35 mg/dL (7-18); Bicarbonate 25 mmol/L (21-32); Bilirubin Total 0.2 mg/dL (0.2-1.0); Glucose Level 86 mg/dL (74-106); Magnesium 2.1 mg/dL (1.8-2.4); Potassium 3.7 mmol/L (3.5-5.1); Protein, Total 6.6 g/dL (6.4-8.2); Sodium Level 144 mmol/L (136-145)
--- NOTE | 2021-09-25 06:22 | P.PN ---
Date of Service: 09/25/21 Subjective: awake/alert confused responds to verbal stimuli, denies pain, feels breathing comfortably ROS: difficult to fully obtain Physical exam GEN: Alert, oriented x1 HEENT: Normal conjunctiva, sclera anicteric CV: Regular rate and rhythm Pulm: Nonlabored respirations on room air ABD: Soft, nontender, nondistended Integumentary: stage III / IV decubitus ulcers Neuro: generalized weakness, +dementia : catheter in place Problem List UTI, leukocytosis history of UTIs with MDR organisms complicated with chronic indwelling Gray catheter CKD 3 Alzheimer's dementia Atrial fibrillation History of seizure disorder Decubitus ulcerations of the buttocks/heels History of recurrent UTIs, has chronic indwelling Gray catheter, unclear when it was last exchanged prior to arrival to ED Gray catheter was exchanged in the ED on 09/24 Urine and blood cultures obtained, will follow History of MDR organisms discussing UTIs, prior sensitivities reviewed. Continue meropenem Infectious disease consulted given patient's history continue IVF monitor renal function - near baseline continue telemetry, h/o afib wound care consulted for decubitus ulcerations on buttocks/heels DVT PPX: Lovenox for now, restart chronic anticoagulation if patient is still taking. Code: full Dispo: back to care home, 2-3 days, may need IV antibiotics Time Spent Managing Pts Care (In Minutes): 35
[2021-09-25 07:39] LABS: Protime INR 1.28
[2021-09-25] MEDS: ENOXAPARIN 40 MG/0.4 ML SQ SCH (08:08)
[2021-09-25] MEDS: Meropenem 1,000 MG in NA CHLORIDE 0.9% 100 ML IV SCH ×2 (08:09→20:01)
--- NOTE | 2021-09-25 11:26 | P.CNS ---
Date of Consult: 09/25/21 Chief Complaint: UTI History of Present Illness: The patient is a 76-year-old male with past medical history consisting of A. fib, dementia, bipolar disorder, hypertension, hypothyroidism, hyperlipidemia, and chronic stage IV sacral decubitus ulcer as unstageable right heel ulcer who presented to the emergency department from his custodial secondary to abnormal labs. Per chart review patient had an abnormal sodium level and was evaluated in the emergency department. Patient found to have UTI, of note patient has chronic history of multidrug-resistant urinary tract infections. Has chronic Gray catheter, Gray catheter was exchanged in ED on 09/24. Patient Peraglie placed on meropenem secondary to history of ESBL E. coli infections. Patient currently denies pain, nausea/vomiting/diarrhea/shortness of breath/chest pain. Allergies Penicillins Allergy (Verified 11/26/20 00:08) Anaphylaxis rabies bat serum Allergy (Uncoded 11/26/20 00:08) Rash Home Medications: PHENYTOIN ER Cap [Dilantin ER Cap*] 1 cap PO Q8HR 03/08/18 Calcium Carbonate/Vitamin D3 [Calcium 600-Vit D3 400 Tablet] 1 each PO DAILY 11/26/20 Fluoxetine HCl [Prozac] 40 mg PO DAILY 11/26/20 Gabapentin [Neurontin*] 100 mg PO TID 11/26/20 Levothyroxine Sodium [Synthroid] 150 mcg PO [id number] 11/26/20 Nitroglycerin [Nitrostat*] 0.4 mg SL PRN PRN 11/26/20 hydrOXYzine HCL [Atarax*] 25 mg PO BIDP PRN 11/26/20 Apixaban [Eliquis *] 2.5 mg PO BID 12/15/20 Acetaminophen [Tylenol] 2 tab PO Q6HP PRN 07/02/21 Codeine/APAP [Tylenol #3*] 1 tab PO Q6HP PRN 07/02/21 Famotidine 20 mg PO Q12H 07/02/21 Megestrol [Megace*] 10 ml PO DAILY 07/02/21 Multivit-Min/FA/Lycopen/Lutein [Complete Multivitamin Tab] 1 tab PO DAILY 07/02/21 Valproic Acid (As Sodium Salt) [Valproic Acid] 20 ml PO Q12H 07/02/21 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; cervicalgia; Chronic pain; constipation -: Atrial Fib; frequent falls; osteoarthritis -: Bronchitis; Hyperlipidemia; Bipolar disorder; encephalopathy; Diverticuliti -: Hypertension; Hypothyroidism; Seizures; Depression -: DEPRESSION -: DIVERTICULITIS -: CONSTIPATION -: MUSCLE WASTING/ATROPHY -: ALLERGIC RHINITIS -: NON-DISPLACED FRACTURE OF THE LEFT HUMERUS -: COGNITIVE COMMUNICATION DEFICIT -: OSTEOPOROSIS Psychosocial/ Personal History: penit[facility]iary resident - Family History pARENTS Notes: PT IS CONFUSED; UNABLE TO RECALL/STATE - Social History Smoking Status: Unknown if ever smoked Alcohol use: No CD- Drugs: No Caffeine use: No Place of Residence: [facility] Review of Systems 10-point ROS is otherwise unremarkable Physical Examination Temp Pulse Resp BP Pulse Ox 97.1 F 63 18 109/54 L 97 09/25/21 08:00 09/25/21 08:00 09/25/21 08:00 09/25/21 08:00 09/25/21 08:00 General: Confused, Obese HEENT: Atraumatic, Normocephalic Neck: Supple Respiratory: Clear to auscultation bilaterally, Normal air movement Cardiovascular: Regular rate/rhythm, Normal S1 S2 Capillary refill: <2 Seconds Gastrointestinal: Normal bowel sounds, Soft and benign Musculoskeletal: No clubbing, No swelling, No contractures Integumentary: Other (Sacral stage IV pressure, right heel unstageable pressure) Laboratory Data (last 24 hrs) 09/24/21 22:03: Sodium 144, Potassium 3.6, BUN 38 H, Creatinine 1.43 H, Glucose 75, Magnesium 2.0 D 09/24/21 21:31: WBC 12.60 H, Hgb 12.0 L, Hct 36.7 L, Plt Count 422 H 09/24/21 20:55: Magnesium Cancelled Conclusions/Impression: Antibiotics: Meropenem: urrent Assessment/plan Complicated UTI Urine culture pending, patient Bria placed on meropenem secondary to history of multidrug-resistant UTIs Patient has chronic Gray catheter, was last exchanged on 09/24 Sacral stage IV pressure ulcer Air mattress placed Continue to offload and avoid direct pressure. Reposition patient in bed every 2 hours during waking hours. Wound care following. Right heel unstageable pressure ulcer Continue to offload and protect heels. Wound care following. Protein caloric malnutrition Recommend supplemental Ensure protein drinks. Adequate nutrition needed for proper wound healing Anemia Continue to monitor H&H, recommend transfusion if hemoglobin drops low 7.0 Medical management per primary team Plan of care discussed with Dr. Patel Thank you for consultation.
[2021-09-26] MEDS: D5W 1,000 ML IV SCH ×2 (02:25→16:38)
[2021-09-26 06:21] LABS: Absolute Lymphocytes (CBC) 1.4 K/uL (0.7-4.9); Hematocrit 34.1 % (39.6-49.0); Lymphocytes % 12.1 % (15.3-44.8); MPV 8.6 fL (7.6-11.3); RBC Red Blood Cell Count 3.59 M/uL (4.33-5.43)
--- NOTE | 2021-09-26 06:25 | P.PN ---
Date of Service: 09/26/21 Subjective: Awake/alert, pleasantly confused Denies any pain symptoms ROS: difficult to fully obtain Physical exam GEN: Alert, oriented x1 CV: Regular rate and rhythm Pulm: Nonlabored respirations on room air ABD: Soft, nontender, nondistended Integumentary: stage III / IV decubitus ulcers Neuro: generalized weakness, +dementia : Gray catheter in place Problem List UTI, leukocytosis history of UTIs with MDR organisms complicated with chronic indwelling Gray catheter CKD 3 Alzheimer's dementia Atrial fibrillation History of seizure disorder Decubitus ulcerations of the buttocks/heels History of recurrent UTIs, has chronic indwelling Gray catheter, unclear when it was last exchanged prior to arrival to ED Gray catheter was exchanged in the ED on 09/24 Urine and blood cultures obtained, blood culture growing gram-positive bacteria History of MDR organisms discussing UTIs, prior sensitivities reviewed. Continue meropenem Infectious disease consulted given patient's history and +blood cultures continue IVF monitor renal function - near baseline continue telemetry, h/o afib wound care consulted for decubitus ulcerations on buttocks/heels VTE: lovenox Code: full Dispo: back to alf, ~2-3 days, may need IV antibiotics Time Spent Managing Pts Care (In Minutes): 35
[2021-09-26 06:50] LABS: AST/SGOT 12 U/L (15-37); Albumin 1.8 g/dL (3.4-5.0); Alkaline Phosphatase 44 U/L (45-117); BUN Blood Urea Nitrogen 26 mg/dL (7-18); Bicarbonate 26 mmol/L (21-32); Bilirubin Total 0.2 mg/dL (0.2-1.0); Glucose Level 89 mg/dL (74-106); Potassium 3.7 mmol/L (3.5-5.1); Protein, Total 6.6 g/dL (6.4-8.2); Sodium Level 139 mmol/L (136-145)
[2021-09-26 06:51] LABS: ALT/SGPT < 10 U/L (12-78)
[2021-09-26 07:07] LABS: Urine Appearance CLOUDY (Clear); Urine Bilirubin NEGATIVE (Negative); Urine Blood NEGATIVE (Negative); Urine Color YELLOW (Yellow); Urine Glucose NEGATIVE (Negative); Urine Protein TRACE (Negative); Urine Specific Gravity 1.015 (1.005-1.030)
[2021-09-26 07:10] LABS: Urine Microscopic Reflex ORDER UMIC
[2021-09-26 07:32] LABS: Urine Bacteria 20-50 /HPF (NONE SEEN); Urine RBC <5 /HPF (NONE SEEN)
[2021-09-26 08:45] LABS: Blood Morphology Comment NOT SEEN (NOT SEEN); Platelet Estimate ADEQ; White Blood Cell Scan OK (OK)
[2021-09-26] MEDS: ENOXAPARIN 40 MG/0.4 ML SQ SCH (08:51)
[2021-09-26] MEDS: Meropenem 1,000 MG in NA CHLORIDE 0.9% 100 ML IV SCH ×2 (08:51→21:06)
[2021-09-26] MEDS: MEDIHONEY 44 ML TOPICAL TUBE TOP SCH (08:52)
[2021-09-26] MEDS ORDERED: POTASSIUM 25 MEQ EFFERV TAB PO ONE (09:00)
--- NOTE | 2021-09-26 15:35 | P.PN ---
Subjective Date of Service: 09/26/21 Chief Complaint: UTI Patient seen and examined at bedside, resting comfortably. Review of Systems 10-point ROS is otherwise unremarkable Physical Examination - Vital Signs Temperature: 97.2 F Blood Pressure: 101/55 Pulse: 67 Respirations: 16 Pulse Ox (%): 95 - Studies Laboratory Last Values WBC 12.60 K/uL (4.3-10.9) H 09/24/21 21:31 RBC 3.87 M/uL (4.33-5.43) L 09/24/21 21:31 Hgb 12.0 g/dL (13.6-17.9) L 09/24/21 21:31 Hct 36.7 % (39.6-49.0) L 09/24/21 21:31 MCV 94.8 fL (80-100) 09/24/21 21:31 MCH 31.0 pg (27.0-35.0) 09/24/21 21:31 MCHC 32.7 g/dL (32.0-36.0) 09/24/21 21:31 RDW 15.2 % (12.1-15.2) 09/24/21 21:31 Plt Count 422 K/uL (152-406) H 09/24/21 21:31 MPV 8.3 fL (7.6-11.3) 09/24/21 21:31 Neutrophils % 72.1 % (41.7-73.7) 09/24/21 21:31 Lymphocytes % 16.8 % (15.3-44.8) 09/24/21 21:31 Monocytes % 7.9 % (3.3-12.3) 09/24/21 21:31 Eosinophils % 2.2 % (0-4.4) 09/24/21 21:31 Basophils % 1.0 % (0-1.3) 09/24/21 21:31 Absolute Neutrophils 9.1 K/uL (1.8-8.0) H 09/24/21 21:31 Absolute Lymphocytes 2.1 K/uL (0.7-4.9) 09/24/21 21:31 Absolute Monocytes 1.0 K/uL (0.1-1.3) 09/24/21 21:31 Absolute Eosinophils 0.3 K/uL (0-0.5) 09/24/21 21:31 Absolute Basophils 0.1 K/uL (0-0.5) 09/24/21 21:31 Sodium 144 mmol/L (136-145) 09/24/21 22:03 Potassium 3.6 mmol/L (3.5-5.1) 09/24/21 22:03 Chloride 113 mmol/L (98-107) H 09/24/21 22:03 Carbon Dioxide 27 mmol/L (21-32) 09/24/21 22:03 BUN 38 mg/dL (7-18) H 09/24/21 22:03 Creatinine 1.43 mg/dL (0.55-1.3) H 09/24/21 22:03 Estimated GFR 48 mL/min (=/>90) L 09/24/21 22:03 Glucose 75 mg/dL (74-106) 09/24/21 22:03 Lactic Acid 1.5 mmol/L (0.4-2.0) 09/24/21 22:03 Calcium 8.2 mg/dL (8.5-10.1) L 09/24/21 22:03 Magnesium 2.0 mg/dL (1.8-2.4) D 09/24/21 22:03 Procalcitonin 0.12 ng/mL (<0.050) H 09/24/21 22:03 Urine pH 6.0 (5.0-7.0) 09/24/21 20:48 Ur Specific [place] 1.010 (1.005-1.030) 09/24/21 20:48 Glucose (UA)(Auto) Negative (Negative) 09/24/21 20:48 Urine Ketones Negative (Negative) 09/24/21 20:48 Urine Blood 2+ (Negative) H 09/24/21 20:48 Urine Nitrite Positive (Negative) H 09/24/21 20:48 Ur Leukocyte Esterase 3+ (Negative) H 09/24/21 20:48 Urine RBC <5 /HPF (NONE SEEN) 09/24/21 20:50 Urine WBC >50 /HPF (<5) H 09/24/21 20:50 Ur Squamous Epith Cells [employer] HELPER 09/24/21 20:50 Ur Urothelial Cells <5 /HPF (NONE SEEN) 09/24/21 20:50 Urine Bacteria >50 /HPF (NONE SEEN) H 09/24/21 20:50 Urine Culture Reflexed Not needed 09/24/21 20:50 Urine Total Protein 1+ (Negative) H 09/24/21 20:48 Influenza Type A RNA Negative (NEGATIVE) 09/24/21 20:53 Influenza Type B RNA Negative (NEGATIVE) 09/24/21 20:53 SARS-CoV-2 RNA (RT-PCR) Negative (NEGATIVE) 09/24/21 20:53 Microbiology Data (last 24 hrs): 09/24/21 20:53 Blood - Blood Blood Culture Gram Stain - Final 09/24/21 20:53 Blood - Blood Gram Stain - Final 09/24/21 22:03 Blood - Blood Anaerobic Blood Culture - Final Assessment And Plan - Plan Physical Exam: General: Confused, Obese HEENT: Atraumatic, Normocephalic Neck: Supple Respiratory: Clear to auscultation bilaterally, Normal air movement Cardiovascular: Regular rate/rhythm, Normal S1 S2 Capillary refill: <2 Seconds Gastrointestinal: Normal bowel sounds, Soft and benign Musculoskeletal: No clubbing, No swelling, No contractures Integumentary: Other (Sacral stage IV pressure, right heel unstageable pressure) Laboratory Data (last 24 hrs) 09/24/21 22:03: Sodium 144, Potassium 3.6, BUN 38 H, Creatinine 1.43 H, Glucose 75, Magnesium 2.0 D 09/24/21 21:31: WBC 12.60 H, Hgb 12.0 L, Hct 36.7 L, Plt Count 422 H 09/24/21 20:55: Magnesium Cancelled Conclusions/Impression: Antibiotics: Meropenem: urrent Assessment/plan Complicated UTI Urine culture growing gram-negative rods, awaiting speciation. Patient empirically placed on meropenem secondary to history of multidrug-resistant UTIs Patient has chronic Gray catheter, was last exchanged on 09/24 Bacteremia Blood cultures obtained on 08/28 growing alpha hemolytic strep in 2/ bottles, awaiting susceptibility. -Repeat blood cultures obtained on 09/26 pending. Sacral stage IV pressure ulcer Air mattress placed Continue to offload and avoid direct pressure. Reposition patient in bed every 2 hours during waking hours. Wound care following. Right heel unstageable pressure ulcer Continue to offload and protect heels. Wound care following. Protein caloric malnutrition Recommend supplemental Ensure protein drinks. Adequate nutrition needed for proper wound healing Anemia Continue to monitor H&H, recommend transfusion if hemoglobin drops low 7.0 Medical management per primary team Plan of care discussed with Dr. Patel Thank you for consultation.
[2021-09-26] MEDS: VALPROIC ACID 250 MG/5 ML PO SCH (16:15)
[2021-09-26] MEDS: PHENYTOIN ER 100 MG CAP PO SCH (17:38)
[2021-09-26] MEDS: JUVEN PACKET PO SCH (21:00)
[2021-09-26] MEDS: APIXABAN 2.5 MG TABLET PO SCH (21:05)
[2021-09-26] MEDS: GABAPENTIN 100 MG CAP PO SCH (21:06)
[2021-09-27] MEDS: PHENYTOIN ER 100 MG CAP PO SCH ×3 (01:48→16:29)
[2021-09-27] MEDS: VALPROIC ACID 250 MG/5 ML PO SCH ×2 (04:15→16:15)
[2021-09-27] MEDS ORDERED: D5W 1,000 ML IV ONE (05:04)
[2021-09-27] MEDS: LEVOTHYROXINE SOD 0.075 MG TAB PO SCH (05:43)
[2021-09-27] MEDS: D5W 1,000 ML IV SCH ×2 (05:54→08:04)
[2021-09-27] MEDS ORDERED: HOME MED 1 EA UNK (Levothyroxine Sodium [Synthroid] 150 MCG Tablet) PO SCH (06:00)
--- NOTE | 2021-09-27 06:44 | P.PN ---
Date of Service: 09/27/21 Subjective: No acute events overnight per nursing staff Patient reports feeling okay Sleepy but awakens to verbal stimuli Reports he is feeling a little bit hungry today ROS: difficult to fully obtain Physical exam GEN: Alert, oriented x1 CV: Regular rate and rhythm Pulm: Non-labored respirations on room air ABD: Soft, nontender, nondistended Integumentary: stage III / IV decubitus ulcers b/l heels and buttocks Neuro: generalized weakness, +dementia : Gray catheter in place Problem List UTI, leukocytosis history of UTIs with MDR organisms complicated with chronic indwelling Gray catheter CKD 3 Alzheimer's dementia Atrial fibrillation History of seizure disorder Decubitus ulcerations of the buttocks/heels Gray catheter was exchanged in the ED on 09/24 Urine and blood growing Enterococcus Urine culture growing Pseudomonas as well continue IV antibiotics ID consulted repeat blood cultures pending continue IVF monitor renal function - near baseline continue telemetry, h/o afib wound care consulted for decubitus ulcerations on buttocks/heels VTE: lovenox Code: full Dispo: long-term, ~2-3 days, pending cultures Time Spent Managing Pts Care (In Minutes): 35
[2021-09-27 07:59] LABS: Absolute Lymphocytes (CBC) 1.4 K/uL (0.7-4.9); Hematocrit 36.9 % (39.6-49.0); Lymphocytes % 10.7 % (15.3-44.8); MPV 8.4 fL (7.6-11.3); RBC Red Blood Cell Count 3.91 M/uL (4.33-5.43)
[2021-09-27] MEDS: GABAPENTIN 100 MG CAP PO SCH ×3 (08:04→20:08)
[2021-09-27] MEDS: FAMOTIDINE 20 MG TAB PO SCH (08:04)
[2021-09-27] MEDS: APIXABAN 2.5 MG TABLET PO SCH ×2 (08:04→20:08)
[2021-09-27] MEDS: FLUOXETINE 20 MG CAP PO SCH (08:05)
[2021-09-27] MEDS: MEDIHONEY 44 ML TOPICAL TUBE TOP SCH (08:05)
[2021-09-27] MEDS: Meropenem 1,000 MG in NA CHLORIDE 0.9% 100 ML IV SCH ×2 (08:05→20:07)
[2021-09-27] MEDS: JUVEN PACKET PO SCH ×2 (08:06→20:09)
[2021-09-27 08:35] LABS: AST/SGOT 13 U/L (15-37); Albumin 1.8 g/dL (3.4-5.0); Alkaline Phosphatase 51 U/L (45-117); BUN Blood Urea Nitrogen 25 mg/dL (7-18); Bicarbonate 24 mmol/L (21-32); Bilirubin Total 0.3 mg/dL (0.2-1.0); Glucose Level 88 mg/dL (74-106); Magnesium 2.2 mg/dL (1.8-2.4); Protein, Total 7.2 g/dL (6.4-8.2); Sodium Level 140 mmol/L (136-145)
[2021-09-27 08:48] LABS: ALT/SGPT < 10 U/L (12-78)
[2021-09-27] MEDS ORDERED: HOME MED 1 EA UNK (Fluoxetine Hcl [Prozac] 40 MG Capsule) PO SCH (09:00)
[2021-09-27] MEDS ORDERED: POTASSIUM CL SA 10 MEQ TAB PO ONE (14:00)
[2021-09-27] MEDS ORDERED: VANCOMYCIN 1.75 GM in NA CHLORIDE 0.9% 500 ML IVPB SCH (15:00)
[2021-09-27] MEDS: VANCOMYCIN 1.75 GM in NA CHLORIDE 0.9% 500 ML IVPB SCH (15:22)
[2021-09-27] MEDS ORDERED: NA CHLORIDE 0.9% 500 ML IV PRN (20:31)
[2021-09-28] MEDS ORDERED: NA CHLORIDE 0.9% 500 ML IV PRN ×2 (00:37→04:02)
[2021-09-28] MEDS: PHENYTOIN ER 100 MG CAP PO SCH ×3 (00:52→16:00)
[2021-09-28] MEDS: VALPROIC ACID 250 MG/5 ML PO SCH ×2 (04:15→15:53)
[2021-09-28] MEDS: LEVOTHYROXINE SOD 0.075 MG TAB PO SCH (06:19)
--- NOTE | 2021-09-28 06:23 | P.PN ---
Date of Service: 09/28/21 Subjective: Continues with some soft blood pressures overnight, received fluid bolus with some improvement Patient denies any new symptoms, states he is doing "okay" Does continue to appear fatigued, borderline lethargic at times Easily awakens ROS: difficult to fully obtain Physical exam GEN: Alert, oriented x1, falls asleep intermittently CV: Regular rate and rhythm Pulm: Non-labored respirations on room air ABD: Soft, nontender, nondistended Integumentary: stage III / IV decubitus ulcers b/l heels and buttocks Neuro: generalized weakness, +dementia : Gray catheter in place Problem List UTI, leukocytosis history of UTIs with MDR organisms complicated with chronic indwelling Gray catheter CKD 3 Alzheimer's dementia Atrial fibrillation History of seizure disorder Decubitus ulcerations of the buttocks/heels Gray catheter was exchanged in the ED on 09/24 Urine and blood growing Enterococcus Urine culture growing Pseudomonas as well Continue meropenem and vancomycin ID consulted repeat blood cultures pending continue IVF monitor renal function - near baseline continue telemetry, h/o afib wound care consulted for decubitus ulcerations on buttocks/heels VTE: lovenox Code: full Dispo: [facility], ~2-3 days, pending cultures, vitals Time Spent Managing Pts Care (In Minutes): 35
[2021-09-28 06:38] LABS: Potassium 4.1 mmol/L (3.5-5.1)
[2021-09-28 06:55] LABS: Absolute Lymphocytes (CBC) 1.6 K/uL (0.7-4.9); Hematocrit 42.7 % (39.6-49.0); Lymphocytes % 14.9 % (15.3-44.8); MPV 9.1 fL (7.6-11.3); RBC Red Blood Cell Count 4.53 M/uL (4.33-5.43)
[2021-09-28] MEDS: MEDIHONEY 44 ML TOPICAL TUBE TOP SCH (09:00)
[2021-09-28] MEDS: JUVEN PACKET PO SCH ×2 (09:00→20:54)
[2021-09-28] MEDS: Meropenem 1,000 MG in NA CHLORIDE 0.9% 100 ML IV SCH ×2 (10:03→20:46)
[2021-09-28] MEDS: APIXABAN 2.5 MG TABLET PO SCH ×2 (10:04→20:46)
[2021-09-28] MEDS: GABAPENTIN 100 MG CAP PO SCH (10:04)
[2021-09-28] MEDS: FLUOXETINE 20 MG CAP PO SCH (10:04)
[2021-09-28] MEDS: FAMOTIDINE 20 MG TAB PO SCH (10:04)
[2021-09-28] MEDS: D5W 1,000 ML IV SCH ×2 (10:05→21:54)
[2021-09-28] MEDS: VANCOMYCIN 1.75 GM in NA CHLORIDE 0.9% 500 ML IVPB SCH (15:57)
[2021-09-29] MEDS: PHENYTOIN ER 100 MG CAP PO SCH ×3 (00:16→16:16)
[2021-09-29] MEDS: VALPROIC ACID 250 MG/5 ML PO SCH ×2 (03:15→16:15)
[2021-09-29] MEDS: D5W 1,000 ML IV SCH ×2 (04:00→22:38)
[2021-09-29 04:04] LABS: Absolute Lymphocytes (CBC) 1.9 K/uL (0.7-4.9); Hematocrit 32.8 % (39.6-49.0); MPV 8.7 fL (7.6-11.3); RBC Red Blood Cell Count 3.48 M/uL (4.33-5.43)
[2021-09-29 04:17] LABS: Magnesium 1.8 mg/dL (1.8-2.4); Phosphorus 2.4 mg/dL (2.5-4.9); Potassium 4.2 mmol/L (3.5-5.1)
[2021-09-29] MEDS: LEVOTHYROXINE SOD 0.075 MG TAB PO SCH (05:38)
[2021-09-29 06:22] VITALS: BMI 29.6
[2021-09-29] MEDS ORDERED: MAGNESIUM SULFATE 1 gm IVPB 1 GM/100 ML BAG IV ONE (06:30)
--- NOTE | 2021-09-29 06:32 | P.PN ---
Date of Service: 09/29/21 Subjective: R arm swelling no acute events patient denies pain in R arm ROS: difficult to fully obtain secondary to dementia Physical exam GEN: Alert, oriented x1, falls asleep intermittently CV: Regular rate and rhythm, RUE edema Pulm: Non-labored respirations on room air ABD: Soft, nontender, nondistended Integumentary: stage III / IV decubitus ulcers b/l heels and buttocks Neuro: generalized weakness, +dementia : Hankins catheter in place Problem List Sepsis secondary to UTI, with bacteremia; h/o indwelling hankins catheter. Without severe sepsis/septic shock CKD 3 Alzheimer's dementia Atrial fibrillation History of seizure disorder Decubitus ulcerations of the buttocks/heels Hankins catheter was exchanged in the ED on 09/24 Urine and blood: Enterococcus Urine culture: Pseudomonas and MRSA as well needs PICC line Continue meropenem and vancomycin ID consulted repeat blood cultures pending continue IVF obtain RUE U/S to r/o DVT monitor renal function - near baseline continue telemetry, h/o afib wound care consulted for decubitus ulcerations on buttocks/heels VTE: home eliquis Code: full Dispo: [facility], ~2-3 days, pending cultures, vitals needs PICC, IV antibiotics Time Spent Managing Pts Care (In Minutes): 35
[2021-09-29] MEDS: MEDIHONEY 44 ML TOPICAL TUBE TOP SCH (09:00)
[2021-09-29] MEDS: JUVEN PACKET PO SCH ×2 (09:00→20:23)
[2021-09-29] MEDS: FAMOTIDINE 20 MG TAB PO SCH (10:24)
[2021-09-29] MEDS: FLUOXETINE 20 MG CAP PO SCH (10:25)
[2021-09-29] MEDS: APIXABAN 2.5 MG TABLET PO SCH ×2 (10:26→20:22)
[2021-09-29] MEDS: Meropenem 1,000 MG in NA CHLORIDE 0.9% 100 ML IV SCH ×2 (10:29→20:22)
--- NOTE | 2021-09-29 12:06 | RAD REPORT ---
EXAM DESCRIPTION: US - UPPER EXTREMITY VENOUS UNILATE - 09/29/2021 11:47 am CLINICAL HISTORY: Right arm pain and swelling COMPARISON: None. TECHNIQUE: Real-time sonographic evaluation of the right upper extremity deep venous systems was per formed. FINDINGS: Normal compressibility, flow augmentation, phasic flow and spontaneous flow are identified in the right upper extremity deep venous system. No intraluminal filling defects seen. Internal jugu lar and subclavian veins are normal as well. IMPRESSION: No DVT in the right upper extremity.
[2021-09-29] MEDS: VANCOMYCIN 1.75 GM in NA CHLORIDE 0.9% 500 ML IVPB SCH (16:16)
--- NOTE | 2021-09-29 19:13 | PN ---
Subjective: The patient is lying in bed, more alert and awake today. No new acute event as per staf f. The patient is nonverbal. Objective: Vital Signs: Temperature 97, pulse 57, respirations 16, blood pressure 105/54. Lungs: Basal crackles. Heart: S1, S2. Regular. Abdomen: Soft, nontender. Bowel sounds present. Extremities: Trace edema. Laboratory Data: Shows WBC 12.6, now WBC 9.1, hemoglobin 10.8, platelets 368. Chemistry shows sodiu m 139, potassium 4.2, chloride 112, bicarb 24, BUN 30, creatinine 1.1, glucose is 86. Micro data blo od cultures from 09/27 and 09/26 are negative; 09/24 blood cultures showing Enterococcus faecalis. F oley catheter in place. Cultures grew Enterococcus faecalis, Pseudomonas MRSA on 09/24. Assessment/plan: 1.Bacteremia secondary to Enterococcus faecalis. 2.Urinary tract infection with multiorganism. 3.Sacral stage IV pressure ulcer. Continue offloading and current wound dressing. 4.Right heel unstageable pressure ulcer. Continue offloading. 5.Protein calorie malnourishment, anemia of chronic disease. Continue supportive care. We will fol low the patient as needed. Prognosis guarded. NF/MODL Voice ID: [id number] Report ID: [id number]
[2021-09-30] MEDS: PHENYTOIN ER 100 MG CAP PO SCH ×3 (00:25→18:00)
[2021-09-30] MEDS: VALPROIC ACID 250 MG/5 ML PO SCH ×2 (03:24→15:41)
[2021-09-30] MEDS: LEVOTHYROXINE SOD 0.075 MG TAB PO SCH (05:36)
[2021-09-30 06:24] LABS: Hematocrit 31.7 % (39.6-49.0); RBC Red Blood Cell Count 3.44 M/uL (4.33-5.43)
[2021-09-30 06:25] LABS: Lymphocytes % 25.6 % (15.3-44.8); MPV 7.8 fL (7.6-11.3)
[2021-09-30 06:40] LABS: C-Reactive Protein 71.7 mg/L (<3.00); Magnesium 1.9 mg/dL (1.8-2.4)
[2021-09-30] MEDS: MEDIHONEY 44 ML TOPICAL TUBE TOP SCH (09:00)
[2021-09-30] MEDS: JUVEN PACKET PO SCH ×2 (09:00→19:53)
[2021-09-30] MEDS: FLUOXETINE 20 MG CAP PO SCH (10:27)
[2021-09-30] MEDS: FAMOTIDINE 20 MG TAB PO SCH (10:27)
[2021-09-30] MEDS: Meropenem 1,000 MG in NA CHLORIDE 0.9% 100 ML IV SCH ×2 (10:27→19:53)
[2021-09-30] MEDS: APIXABAN 2.5 MG TABLET PO SCH ×2 (10:27→19:53)
[2021-09-30] MEDS: D5W 1,000 ML IV SCH (13:31)
[2021-09-30] MEDS ORDERED: VANCOMYCIN 1.75 GM in NA CHLORIDE 0.9% 500 ML IVPB SCH (15:00)
--- NOTE | 2021-09-30 16:15 | RAD REPORT ---
EXAM DESCRIPTION: RAD - Chest Single View - 09/30/2021 4:10 pm CLINICAL HISTORY: Device placement PICC line placement IMPRESSION: PICC line with its tip in the superior vena cava
--- NOTE | 2021-09-30 16:56 | P.PN ---
Subjective Date of Service: 09/30/21 Chief Complaint: UTI No major changes from yesterday. Patient responds appropriately but slow to respond. Physical Examination - Vital Signs Temperature: 97.0 F Blood Pressure: 105/68 Pulse: 74 Respirations: 19 Pulse Ox (%): 95 - Studies Microbiology Data (last 24 hrs): 09/24/21 22:03 Blood - Blood Aerobic Blood Culture - Final No growth in 5 days. 09/24/21 22:03 Blood - Blood Anaerobic Blood Culture - Final Assessment And Plan - Plan Physical exam GEN: Alert, oriented x1. CV: Regular rate and rhythm, RUE edema Pulm: Non-labored respirations on room air. Clear to auscultation bilaterally. ABD: Soft, nontender, nondistended Integumentary: stage III / IV decubitus ulcers b/l heels and buttocks Neuro: +dementia : Hankins catheter in place Problem List Sepsis secondary to UTI, with bacteremia; h/o indwelling hankins catheter. Without severe sepsis/septic shock CKD 3 Alzheimer's dementia Atrial fibrillation History of seizure disorder Decubitus ulcerations of the buttocks/heels Functional quadriplegia Hankins catheter was exchanged in the ED on 09/24 Urine and blood: Enterococcus Urine culture: Pseudomonas and MRSA as well PICC line placed. Patient is a meropenem and vancomycin ID is following. Repeat blood culture shows no growth. Plan is to discharge with IV meropenem and vancomycin. Patient will need 2 weeks of antibiotics. Discontinue IV fluid. No DVT in the upper extremity. Wound care for decubitus ulcerations on buttocks/heels VTE: home eliquis Code: full Dispo: longterm.
[2021-10-01] MEDS: PHENYTOIN ER 100 MG CAP PO SCH ×2 (00:39→10:05)
[2021-10-01] MEDS: D5W 1,000 ML IV SCH (01:16)
[2021-10-01 02:32] VITALS: O2SAT 100
[2021-10-01] MEDS ORDERED: VANCOMYCIN 1.75 GM in NA CHLORIDE 0.9% 500 ML IVPB SCH ×5 (03:00→15:00)
[2021-10-01] MEDS: VALPROIC ACID 250 MG/5 ML PO SCH (04:15)
[2021-10-01 05:30] LABS: Absolute Lymphocytes (CBC) 1.9 K/uL (0.7-4.9); Hematocrit 31.3 % (39.6-49.0); MPV 7.8 fL (7.6-11.3); RBC Red Blood Cell Count 3.44 M/uL (4.33-5.43)
[2021-10-01 05:43] LABS: C-Reactive Protein 53.7 mg/L (<3.00); Potassium 3.7 mmol/L (3.5-5.1)
[2021-10-01] MEDS: LEVOTHYROXINE SOD 0.075 MG TAB PO SCH (05:53)
--- NOTE | 2021-10-01 08:43 | P.DS ---
Admission Date: 09/24/21 Discharge Date: 10/01/21 Disposition: TRANSFER TO SNF - MEDICAL Discharge Condition: FAIR Reason for Admission: UTI Brief History of Present Illness: 76-year-old male with history of atrial fibrillation, dementia, bipolar disorder, hypertension, hypothyroidism, hyperlipidemia presents to the emergency department for abnormal labs. [facility] sent patient over for reported abnormal sodium level. Patient was evaluated here in the emergency department his sodium level was within normal limits at time of evaluation although it was determined that patient has urinary tract infection, patient wit h history of multidrug-resistant UTIs including ESBL. Patient with mild leukocytosis, for this reason patient was admitted for further evaluation and management of UTI with history of MDR organisms. Hospital Course: Problem List Sepsis secondary to UTI, with bacteremia; h/o indwelling hankins catheter. Without severe sepsis/septic shock CKD 3 Alzheimer's dementia Atrial fibrillation History of seizure disorder Decubitus ulcerations of the buttocks/heels Functional quadriplegia Patient admitted to the medical floor. He had his Hankins catheter changed in the ED. Hankins catheter was exchanged in the ED on 09/24 Urine and blood cultures grew: Enterococcus Urine culture grew: Pseudomonas and MRSA as well Patient seen by infectious disease PICC line placed for outpatient IV antibiotic He was treated with meropenem and vancomycin Repeat blood culture shows no growth. Patient is discharge with IV meropenem and vancomycin. Patient will need 2 weeks of antibiotics. Wound care for decubitus ulcerations on buttocks/heels done during the hospital stay. He is at baseline with stable vitals and deemed stable for discharge. Vital Signs/Physical Exam: Temp Pulse Resp BP Pulse Ox 97.5 F 74 16 92/52 L 99 10/01/21 08:00 10/01/21 08:00 10/01/21 08:00 10/01/21 08:00 10/01/21 08:00 General: In no apparent distress, Obese, Other (Awake) HEENT: Mucous membr. moist/pink Neck: JVD not distended Respiratory: Clear to auscultation bilaterally, Normal air movement Cardiovascular: Normal S1 S2, Edema (Bilateral leg) Gastrointestinal: Soft and benign, Non-distended Integumentary: Other (Sacral decubitus ulcer, heel decubitus ulcer) Neurological: Other (Moves upper extremities spontaneously) Laboratory Data at Discharge: WBC 8.40 K/uL (4.3-10.9) 10/01/21 05:06 Hgb 10.9 g/dL (13.6-17.9) L 10/01/21 05:06 Hct 31.3 % (39.6-49.0) L 10/01/21 05:06 Plt Count 364 K/uL (152-406) 10/01/21 05:06 PT 14.8 SECONDS (9.5-12.5) H 09/25/21 07:15 INR 1.28 09/25/21 07:15 APTT 30.2 SECONDS (24.3-36.9) 09/25/21 07:15 Sodium 135 mmol/L (136-145) L 10/01/21 05:06 Potassium 3.7 mmol/L (3.5-5.1) 10/01/21 05:06 BUN 21 mg/dL (7-18) H 10/01/21 05:06 Creatinine 1.08 mg/dL (0.55-1.3) 10/01/21 05:06 Glucose 90 mg/dL (74-106) 10/01/21 05:06 Phosphorus 2.4 mg/dL (2.5-4.9) L 09/29/21 03:25 Magnesium 1.9 mg/dL (1.8-2.4) 09/30/21 06:10 Total Bilirubin 0.3 mg/dL (0.2-1.0) 09/27/21 07:33 AST 13 U/L (15-37) L 09/27/21 07:33 ALT < 10 U/L (12-78) L 09/27/21 07:33 Alkaline Phosphatase 51 U/L (45-117) 09/27/21 07:33 Home Medications: PHENYTOIN ER Cap [Dilantin ER Cap*] 1 cap PO Q8HR 03/08/18 Calcium Carbonate/Vitamin D3 [Calcium 600-Vit D3 400 Tablet] 1 each PO DAILY 11/26/20 Fluoxetine HCl [Prozac] 40 mg PO DAILY 11/26/20 Gabapentin [Neurontin*] 100 mg PO TID 11/26/20 Levothyroxine Sodium [Synthroid] 150 mcg PO [id number] 11/26/20 Nitroglycerin [Nitrostat*] 0.4 mg SL PRN PRN 11/26/20 Apixaban [Eliquis *] 2.5 mg PO BID 12/15/20 Acetaminophen [Tylenol] 2 tab PO Q6HP PRN 07/02/21 Codeine/APAP [Tylenol #3*] 1 tab PO Q6HP PRN 07/02/21 Famotidine 20 mg PO DAILY 07/02/21 Megestrol [Megace*] 10 ml PO DAILY 07/02/21 Multivit-Min/FA/Lycopen/Lutein [Complete Multivitamin Tab] 1 tab PO DAILY 07/02/21 Valproic Acid (As Sodium Salt) [Valproic Acid] 20 ml PO Q12H 07/02/21 Gee [Gee*] 1 pkt PO BID powd.pack 10/01/21 Medihoney [Medihoney Woundcare Gel*] 1 appl TOP DAILY tube 10/01/21 Meropenem-0.9% Sodium Chloride [Meropenem-0.9% NaCl 1 Gram/50] 1 gm IV Q12H 7 Days #14 ml 10/01/21 Vancomycin/0.9 % Sod Chloride [Vanco 1.75 gm/500 ml-0.9% NaCl] 1.75 gm IV Q48H #4 plast..bag 10/01/21 New Medications: Meropenem-0.9% Sodium Chloride [Meropenem-0.9% NaCl 1 Gram/50] 1 gm IV Q12H 7 Days #14 ml Vancomycin/0.9 % Sod Chloride [Vanco 1.75 gm/500 ml-0.9% NaCl] 1.75 gm IV Q48H #4 plast..bag Diet: Regular Activity: Fall precautions Time spent managing pt's care (in minutes): 38
[2021-10-01] MEDS: MEDIHONEY 44 ML TOPICAL TUBE TOP SCH (09:00)
[2021-10-01] MEDS: JUVEN PACKET PO SCH (09:00)
[2021-10-01] MEDS: Meropenem 1,000 MG in NA CHLORIDE 0.9% 100 ML IV SCH (10:04)
[2021-10-01] MEDS: FLUOXETINE 20 MG CAP PO SCH (10:05)
[2021-10-01] MEDS: APIXABAN 2.5 MG TABLET PO SCH (10:05)
[2021-10-01] MEDS: FAMOTIDINE 20 MG TAB PO SCH (10:05)
[2021-10-01 12:24] VITALS: BP 95/60; TEMP 97.8
--- NOTE | 2021-10-01 14:28 | P.PN ---
Subjective Date of Service: 10/01/21 Chief Complaint: UTI Patient seen and examined at bedside, resting comfortably. Review of Systems 10-point ROS is otherwise unremarkable Physical Examination - Vital Signs Temperature: 97.8 F Blood Pressure: 95/60 Pulse: 76 Respirations: 16 Pulse Ox (%): 99 - Studies Laboratory Last Values WBC 12.60 K/uL (4.3-10.9) H 09/24/21 21:31 RBC 3.87 M/uL (4.33-5.43) L 09/24/21 21:31 Hgb 12.0 g/dL (13.6-17.9) L 09/24/21 21:31 Hct 36.7 % (39.6-49.0) L 09/24/21 21:31 MCV 94.8 fL (80-100) 09/24/21 21:31 MCH 31.0 pg (27.0-35.0) 09/24/21 21:31 MCHC 32.7 g/dL (32.0-36.0) 09/24/21 21:31 RDW 15.2 % (12.1-15.2) 09/24/21 21:31 Plt Count 422 K/uL (152-406) H 09/24/21 21:31 MPV 8.3 fL (7.6-11.3) 09/24/21 21:31 Neutrophils % 72.1 % (41.7-73.7) 09/24/21 21:31 Lymphocytes % 16.8 % (15.3-44.8) 09/24/21 21:31 Monocytes % 7.9 % (3.3-12.3) 09/24/21 21:31 Eosinophils % 2.2 % (0-4.4) 09/24/21 21:31 Basophils % 1.0 % (0-1.3) 09/24/21 21:31 Absolute Neutrophils 9.1 K/uL (1.8-8.0) H 09/24/21 21:31 Absolute Lymphocytes 2.1 K/uL (0.7-4.9) 09/24/21 21:31 Absolute Monocytes 1.0 K/uL (0.1-1.3) 09/24/21 21:31 Absolute Eosinophils 0.3 K/uL (0-0.5) 09/24/21 21:31 Absolute Basophils 0.1 K/uL (0-0.5) 09/24/21 21:31 Sodium 144 mmol/L (136-145) 09/24/21 22:03 Potassium 3.6 mmol/L (3.5-5.1) 09/24/21 22:03 Chloride 113 mmol/L (98-107) H 09/24/21 22:03 Carbon Dioxide 27 mmol/L (21-32) 09/24/21 22:03 BUN 38 mg/dL (7-18) H 09/24/21 22:03 Creatinine 1.43 mg/dL (0.55-1.3) H 09/24/21 22:03 Estimated GFR 48 mL/min (=/>90) L 09/24/21 22:03 Glucose 75 mg/dL (74-106) 09/24/21 22:03 Lactic Acid 1.5 mmol/L (0.4-2.0) 09/24/21 22:03 Calcium 8.2 mg/dL (8.5-10.1) L 09/24/21 22:03 Magnesium 2.0 mg/dL (1.8-2.4) D 09/24/21 22:03 Procalcitonin 0.12 ng/mL (<0.050) H 09/24/21 22:03 Urine pH 6.0 (5.0-7.0) 09/24/21 20:48 Ur Specific [place] 1.010 (1.005-1.030) 09/24/21 20:48 Glucose (UA)(Auto) Negative (Negative) 09/24/21 20:48 Urine Ketones Negative (Negative) 09/24/21 20:48 Urine Blood 2+ (Negative) H 09/24/21 20:48 Urine Nitrite Positive (Negative) H 09/24/21 20:48 Ur Leukocyte Esterase 3+ (Negative) H 09/24/21 20:48 Urine RBC <5 /HPF (NONE SEEN) 09/24/21 20:50 Urine WBC >50 /HPF (<5) H 09/24/21 20:50 Ur Squamous Epith Cells BUSINESS ARCHITECT 09/24/21 20:50 Ur Urothelial Cells <5 /HPF (NONE SEEN) 09/24/21 20:50 Urine Bacteria >50 /HPF (NONE SEEN) H 09/24/21 20:50 Urine Culture Reflexed Not needed 09/24/21 20:50 Urine Total Protein 1+ (Negative) H 09/24/21 20:48 Influenza Type A RNA Negative (NEGATIVE) 09/24/21 20:53 Influenza Type B RNA Negative (NEGATIVE) 09/24/21 20:53 SARS-CoV-2 RNA (RT-PCR) Negative (NEGATIVE) 09/24/21 20:53 Assessment And Plan - Plan Physical Exam: General: Confused, Obese HEENT: Atraumatic, Normocephalic Neck: Supple Respiratory: Clear to auscultation bilaterally, Normal air movement Cardiovascular: Regular rate/rhythm, Normal S1 S2 Capillary refill: <2 Seconds Gastrointestinal: Normal bowel sounds, Soft and benign Musculoskeletal: No clubbing, No swelling, No contractures Integumentary: Other (Sacral stage IV pressure, right heel unstageable pressure) Laboratory Data (last 24 hrs) 09/24/21 22:03: Sodium 144, Potassium 3.6, BUN 38 H, Creatinine 1.43 H, Glucose 75, Magnesium 2.0 D 09/24/21 21:31: WBC 12.60 H, Hgb 12.0 L, Hct 36.7 L, Plt Count 422 H 09/24/21 20:55: Magnesium Cancelled Conclusions/Impression: Antibiotics: Meropenem: urrent Assessment/plan Complicated UTI Urine culture polymicrobial, likely colonizer given frequency of UTIs and chronic indwelling Gray catheter- was last exchanged on 09/24. Recommend continuing meropenem and vancomycin. Bacteremia Blood cultures growing Enterococcus faecalis. Source of infection likely UTI. Recommend continuing IV vancomycin for 2 weeks following negative blood culture report. -Repeat blood cultures obtained on 09/26 showed no grwoth at 48hr. Sacral stage IV pressure ulcer Air mattress placed Continue to offload and avoid direct pressure. Reposition patient in bed every 2 hours during waking hours. Wound care following. Right heel unstageable pressure ulcer Continue to offload and protect heels. Wound care following. Protein caloric malnutrition Recommend supplemental Ensure protein drinks. Adequate nutrition needed for proper wound healing Anemia Continue to monitor H&H, recommend transfusion if hemoglobin drops low 7.0 Medical management per primary team Plan of care discussed with Dr. Patel Thank you for consultation.
== END 2021-10-01 15:51 | DRG 871 ==
LOC: ER 20:28 → ERHOLD 22:59 → 2ND 09-25 00:07
PROVIDERS: ADMIT Emergency Medicine; ATTEND Hospitalist
PROC: 02HV33Z Insertion of Infusion Device into Superior Vena Cava, Percutaneous Approach (ICD-10-PCS; principal; 2021-09-30)
DX: A41.81 Sepsis due to Enterococcus (principal); L89.154 Pressure ulcer of sacral region, stage 4; R53.2 Functional quadriplegia; N39.0 Urinary tract infection, site not specified; E46 Unspecified protein-calorie malnutrition; B96.5 Pseudomonas (aeruginosa) (mallei) (pseudomallei) as the cause of diseases classified elsewhere; B95.62 Methicillin resistant Staphylococcus aureus infection as the cause of diseases classified elsewhere; B95.2 Enterococcus as the cause of diseases classified elsewhere; I48.91 Unspecified atrial fibrillation; G30.9 Alzheimer's disease, unspecified; F02.80 Dementia in other diseases classified elsewhere, unspecified severity, without behavioral disturbance, psychotic disturbance, mood disturbance, and anxiety; L89.610 Pressure ulcer of right heel, unstageable; Z68.29 Body mass index [BMI] 29.0-29.9, adult; E03.9 Hypothyroidism, unspecified; E78.5 Hyperlipidemia, unspecified; Z20.822 Contact with and (suspected) exposure to COVID-19
CPT/HCPCS: 0240U; 36415; 36569; 51702; 71045; 80048; 80053; 80202; 81003; 81015; 83605; 83735; 84100; 84145; 85025; 85610; 85730; 86140; 87040; 87077; 87086; 87088; 87186; 87205; 93971; 96361; 96365; 96366; 99251; 99285; J1650; J2185; J3370; J3475; J7030; J7040; U0003

== ENCOUNTER 2022-02-02 17:32 | Inpatient (IN) | payer OTHER ==
--- NOTE | 2022-02-02 18:32 | RAD REPORT ---
EXAM DESCRIPTION: RAD - Chest Single View - 02/02/2022 6:11 pm CLINICAL HISTORY: COVID COMPARISON: Portable 09/30/2021 TECHNIQUE: AP portable chest image was obtained 02/02/2022 6:11 pm . FINDINGS: Lung volumes are very low. Interstitial markings are prominent but not substantially diffe rent prior study. Interstitial edema and infiltrate could be masked. Heart and vasculature are normal . No measurable pleural effusion and no pneumothorax. No acute bony abnormality seen. No acute aortic findings suspected. IMPRESSION: Chronic interstitial lung pattern potentially masking early edema or infiltrate.
[2022-02-02 18:38] LABS: Absolute Lymphocytes (CBC) 0.6 K/uL (0.7-4.9); Hematocrit 38.9 % (39.6-49.0); Lymphocytes % 6.4 % (15.3-44.8); MCV 93.7 fL (80-100); MPV 7.2 fL (7.6-11.3); RBC Red Blood Cell Count 4.15 M/uL (4.33-5.43)
[2022-02-02 19:08] LABS: Potassium 4.2 mmol/L (3.5-5.1)
--- NOTE | 2022-02-02 20:08 | EDPHYS ---
Physician Documentation [facility] Name: Zbigniew Mitchell Age: 76 yrs Sex: Male : 1945 Arrival Date: 02/02/2022 Time: 17:45 Bed 28 Private MD: ED Physician Darrell Cummins HPI: 02/02 18:37 This 76 yrs old Male presents to ER via Unassigned with complaints of AMS. rn 18:37 The patient presents with decreased responsiveness. Onset: The symptoms/episode rn began/occurred at an unknown time. Possible causes: COVID. Associated signs and symptoms: Pertinent positives: decreased LOC. Current symptoms: In the emergency department the patient's symptoms are unchanged from the initial presentation. It is unknown whether or not the patient has had similar symptoms in the past. It is unknown whether or not the patient has recently seen a physician. Per EMS, long term called 911 after patient tested positive for COVID today, a few days of symptoms, but today exhibited generalized weakness and decreased responsiveness. NO vomiting. Stable vitals per EMS. . 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 - Social history:: Smoking status: unknown. - History obtained from: EMS. - Unable to obtain history due to: altered mental status. ROS: 18:37 Unable to obtain ROS due to altered mental status, baseline dementia. rn Exam: 18:37 Constitutional: This is a well developed, well nourished patient who is awake, rn somnolent Head/Face: Normocephalic, atraumatic. Eyes: Periorbital areas with no swelling, redness, or edema. ENT: dry MM Cardiovascular: Regular rate and rhythm. No pulse deficits. Respiratory: No increased work of breathing, no retractions or nasal flaring. Abdomen/GI: Soft, non-tender, no feeding tube present Skin: Warm, dry MS/ Extremity: Pulses equal, no cyanosis. Neuro: Awake, somnolent, tracks with eyes, does not answer questions. + lower extremity contractures. Vital Signs: 17:45 BP 146 / 93; Pulse 94; Resp 15 S; Temp 101.3(A); Pulse Ox 99% on R/A; jl7 18:42 BP 140 / 91; Pulse 95; Resp 16; Pulse Ox 98% ; jl7 MDM: 17:48 Patient medically screened. rn 18:44 ED course: No report by EMS or long term regarding previously known feeding tube. . rn 20:03 Differential Diagnosis: electrolyte abnormality, hypoglycemia, TIA, volume depletion. zelda Data reviewed: vital signs, nurses notes, lab test result(s), EKG, radiologic studies, plain films. Data interpreted: cooler tender: not applicable for this patient encounter. rate is 95 beats/min. Test interpretation: by ED physician or midlevel provider: ECG, plain radiologic studies. Counseling: I had a detailed discussion with the patient and/or guardian regarding: the historical points, exam findings, and any diagnostic results supporting the discharge/admit diagnosis, lab results, radiology results, the need for further work-up and treatment in the hospital. 02/02 17:50 Order name: CBC with Diff; Complete Time: 19:02 02/02 17:50 Order name: Basic Metabolic Panel; Complete Time: 19:10 02/02 17:50 Order name: Procalcitonin; Complete Time: 19:54 02/02 17:50 Order name: Lactate; Complete Time: 19:02 02/02 17:52 Order name: SARS-COV-2 RT PCR (Document "Date of Onset" if Symptomatic); Complete Time: rn 22:02/02 18:37 Order name: Urine Microscopic Only; Complete Time: 22:21 02/02 18:37 Order name: Urine Culture 02/02 18:46 Order name: Blood Culture Adult (2) 02/02 21:04 Order name: Urine Dipstick-Ancillary; Complete Time: 22:21 [facility] 02/03 04:29 Order name: CBC with Automated Diff; Complete Time: 04:31 [facility] 02/03 04:51 Order name: Basic Metabolic Panel [facility] 02/03 04:51 Order name: Lipid Profile [facility] 02/03 04:51 Order name: T4 Free [facility] 02/03 04:51 Order name: Magnesium [facility] 02/02 17:50 Order name: IV Start; Complete Time: 18:44 rn 02/02 17:50 Order name: Cardiac monitoring; Complete Time: 18:44 rn 02/02 17:50 Order name: O2 Sat Monitoring; Complete Time: 18:44 rn 02/02 17:50 Order name: XRAY Chest (1 view); Complete Time: 18:36 rn 02/02 17:50 Order name: EKG; Complete Time: 17:50 rn 02/02 17:50 Order name: EKG - Nurse/Tech rn 02/02 18:37 Order name: Urine Dipstick-Ancillary (obtain specimen) rn 02/03 04:51 Order name: Thyroid Stimulating Hormone EDMS Administered Medications: 21:10 Drug: NS 0.9% 1000 ml Route: IV; Rate: 1000 ml; Site: right forearm; [facility] 21:10 Drug: Rocephin (cefTRIAXone) 1 grams Route: IV; Rate: per protocol; Site: right forearm;[facility] Disposition Summary: 02/02/22 20:08 Hospitalization Ordered Hospitalization Status: Inpatient Admission zelda Provider: Jessika Nguyen zelda Condition: Stable zelda Problem: new zelda Symptoms: have improved zelda Bed/Room Type: Standard zelda Location: Telemetry/MedSurg (Inpatient)(02/03/22 08:02) kj1 Room Assignment: 431(02/03/22 08:02) kj1 Diagnosis - Fever, unspecified zelda - Altered mental status, unspecified zelda - Anemia, unspecified zelda Forms: - Medication Reconciliation Form zelda - SBAR form zelda Signatures: Dispatcher [employer] EDMS Darrell Cummins MD MD cha Nieto, Roman, MD MD rn Garcia, Cindy, RN RN cg Leal, Jahala, RN RN jl7 Jackson, Kandis kj1 Rosanna Stoddard RN RN ke1 Emily Treviño PA PA sb3 Corrections: (The following items were deleted from the chart) 18:45 18:37 Constitutional: This is a well developed, well nourished patient who is awake, rn somnolent Head/Face: Normocephalic, atraumatic. Eyes: Periorbital areas with no swelling, redness, or edema. ENT: dry MM Cardiovascular: Regular rate and rhythm. No pulse deficits. Respiratory: No increased work of breathing, no retractions or nasal flaring. Abdomen/GI: Soft, non-tender Skin: Warm, dry MS/ Extremity: Pulses equal, no cyanosis. Neuro: Awake, somnolent, tracks with eyes, does not answer questions. + lower extremity contractures. rn : 20:08 Telemetry/MedSurg (Inpatient) [facility] : 20:08 [facility] 02/03 08:02 02/02 20:13 [facility] ER HOLD cg kj1 02/03 08:02 02[facility]02 [facility]
--- NOTE | 2022-02-02 20:08 | ER ---
Nurse's Notes [facility] Name: Zbigniew Mitchell Age: 76 yrs Sex: Male : 1945 Arrival Date: 02/02/2022 Time: 17:45 Bed 28 Private MD: Diagnosis: Fever, unspecified;Altered mental status, unspecified;Anemia, unspecified Presentation: 02/02 17:45 Chief complaint: EMS states: Toned out for AMS, faculty reported he isn't responding jl7 like he normally does, EMS reported pt appears to be baseline on arrival to [facility], turns to his name and does not hold a conversation. 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 17:45 Coronavirus screen: Client presents with at least one sign or symptom that may indicate jl7 coronavirus-19. Standard/surgical mask placed on the client. Provider contacted for isolation considerations. Ebola Screen: No symptoms or risks identified at this time. Initial Sepsis Screen: Does the patient meet any 2 criteria? Temp <36.0*C (96.8*F)) or > 38.3*C (100.9*F). HR > 90 bpm. Yes Does the patient have a suspected source of infection? No. Patient's initial sepsis screen is negative. Risk Assessment: Do you want to hurt yourself or someone else? Patient reports no desire to harm self or others. Onset of symptoms is unknown. Care prior to arrival: None. 17:45 Method Of Arrival: EMS: [facility] jl7 17:45 Acuity: ANDRE 3 jl7 Triage Assessment: 18:40 General: Appears in no apparent distress. uncomfortable, ill, Behavior is calm, quiet. jl7 Pain: Unable to use pain scale. Does not appear to understand pain scale. Neuro: Level of Consciousness is awake, Oriented to none. Cardiovascular: Patient's skin is warm and dry. Respiratory: Airway is patent Respiratory effort is even, unlabored, Respiratory pattern is regular, symmetrical. : Gray in place. Derm: Skin is pink, warm \T\ dry. 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 - Social history:: Smoking status: unknown. - History obtained from: EMS. - Unable to obtain history due to: altered mental status. Screenin:42 Abuse screen: unable to obtain. Nutritional screening: unable to obtain. Tuberculosis jl7 screening: No symptoms or risk factors identified. Fall Risk Secondary diagnosis (15 points) impaired mobility, IV access (20 points). Ambulatory Aid- None/Bed Rest/Nurse Assist (0 pts). Gait- Normal/Bed Rest/Wheelchair (0 pts) Total Aleman Fall Scale indicates Low Risk Score (25-44 pts). Fall prevention measures have been instituted. Side Rails Up X 2 Placed close to Nursing Station Frequent Obs/Assesments occuring. Assessment: 18:00 General: See triage. jl7 Vital Signs: 17:45 BP 146 / 93; Pulse 94; Resp 15 S; Temp 101.3(A); Pulse Ox 99% on R/A; jl7 18:42 BP 140 / 91; Pulse 95; Resp 16; Pulse Ox 98% ; jl7 ED Course: 17:45 Patient arrived in ED. [facility] 17:48 Rio Oconnor MD is Attending Physician. rn 18:13 XRAY Chest (1 view) In Process Unspecified. EDMS 18:37 Mario Hamlin, RN is Primary Nurse. jl7 18:40 Triage completed. jl7 18:40 Arm band placed on right wrist. jl7 18:42 Patient has correct armband on for positive identification. Placed in gown. Bed in low jl7 position. Call light in reach. Side rails up X2. Client placed on continuous cardiac and pulse oximetry monitoring. NIBP monitoring applied. 18:42 Initial lab(s) drawn, by mo, sent to lab. COVID swab sent to lab. Inserted saline lock: jl7 22 gauge in right forearm, using aseptic technique. Blood collected. 19:54 Attending Physician role handed off by Rio Oconnor MD [facility] 19:54 Darrell Cummins MD is Attending Physician. [facility] 20:06 Jessika Nguyen MD is Hospitalizing Provider. zelda Administered Medications: 21:10 Drug: NS 0.9% 1000 ml Route: IV; Rate: 1000 ml; Site: right forearm; ke1 21:10 Drug: Rocephin (cefTRIAXone) 1 grams Route: IV; Rate: per protocol; Site: right forearm;ke1 Medication: 18:42 VIS not applicable for this client. [email or web address] Outcome: 20:08 Decision to Hospitalize by Provider. [facility] 02/03 08:32 Patient left the ED. Signatures: Dispatcher [employer] EDMS Darrell Cummins MD MD cha Nieto, Roman, MD MD rn Smirch, Shelby, RN RN Mario Hamlin RN RN jl7 Sarah Varela RN RN jh6 Rosanna Stoddard RN RN ke1
[2022-02-02 21:04] LABS: Urine Blood 1+ (Negative); Urine Glucose Negative (Negative); Urine Protein 2+ (Negative); Urine Specific Gravity 1.025 (1.005-1.030)
[2022-02-02 21:21] LABS: Urine Bacteria 20-50 /HPF (NONE SEEN); Urine Mucus 2+ /HPF (NONE SEEN)
[2022-02-02] MEDS ORDERED: ACETAMINOPHEN 500 MG TAB PO PRN (22:43)
[2022-02-02] MEDS ORDERED: ONDANSETRON 4 MG/2 ML VIAL IV PRN (22:43)
--- NOTE | 2022-02-02 22:52 | P.HP ---
Certification for Inpatient Patient admitted to: Inpatient With expected LOS: >2 Midnights Patient will require the following post-hospital care: None Practitioner: I am a practitioner with admitting privileges, knowledge of patient current condition, hospital course, and medical plan of care. Services: Services provided to patient in accordance with Admission requirements found in Title 42 Section 412.3 of the Code of Federal Regulations Patient History Date of Service: 02/03/22 Reason for admission: AMS, COVID, UTI History of Present Illness: Patient is a 76-year-old male with PMH of atrial fibrillation, dementia, bipolar disorder, hypertension, recurrent UTIs secondary to indwelling hankins catheter, hypothyroidism, and hyperlipidemia who presented to the ED from halfway with concerns of altered mental status. 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 Patient febrile and tachycardic on arrival. Labs significant for BUN 35, Cr 1.45, procal 0.2, urine positive for UTI. Patient has history of multidrug-resistant UTIs, including ESBL. He was given 1L fluid and rocephin in ED. Patient is admitted for further evaluation and treatment. Allergies Penicillins Allergy (Verified 11/26/20 00:08) Anaphylaxis rabies bat serum Allergy (Uncoded 11/26/20 00:08) Rash Home Medications: Acetaminophen [Tylenol Arthritis] 650 mg PO Q6HP PRN 02/03/22 Acetaminophen with Codeine [Tylenol with-Codeine #3 Tablet] 1 each PO Q6HP PRN 02/03/22 Apixaban [Eliquis] 2.5 mg PO BID 02/03/22 Arginine/Ascorbate Sod/Denice AC [Arginaid Powder] 1 each PO DAILY 02/03/22 Aspirin [Adult Aspirin Regimen] 81 mg PO DAILY 02/03/22 Atorvastatin Calcium [Lipitor] 20 mg PO BEDTIME 02/03/22 Calcium Carbonate/Vitamin D3 [Calcium 600 mg-D3 10 Mcg Sfgl] 1 each PO DAILY 02/03/22 Duonebs 0.5mg/3mg 1 aer IH DAILYPRN PRN 02/03/22 Famotidine [Pepcid] 20 mg PO DAILY 02/03/22 Fluoxetine HCl [Prozac] 40 mg PO DAILY 02/03/22 Gabapentin [Neurontin] 100 mg PO TID 02/03/22 Levothyroxine Sodium [Levothyroxine] 150 mcg PO DAILY 02/03/22 Mvi With Lutein 200-137.5 Mcg 1 tab PO DAILY 02/03/22 Nitroglycerin 0.4 mg SL [id number] PRN MDD 3 tablets per 24H 02/03/22 - Past Medical/Surgical History Diabetic: No -: Dementia -: Atrial Fib -: Hyperlipidemia -: Hypertension -: Hypothyroidism -: Seizure Disorder Past Surgical History: Unable to obtain Psychosocial/ Personal History: longterm resident - Family History pARENTS Notes: PT IS CONFUSED; UNABLE TO RECALL/STATE Parents History Unknown: Yes - Social History Smoking Status: Unknown if ever smoked Alcohol use: No CD- Drugs: No Caffeine use: No Place of Residence: [place] Review of Systems is unable to be obtained Physical Examination - Physical Exam General: Alert, In no apparent distress, Confused HEENT: Atraumatic, PERRLA, EOMI, Sclerae nonicteric Neck: Supple, 2+ carotid pulse no bruit, No LAD, Without JVD or thyroid abnormality Respiratory: Clear to auscultation bilaterally, Normal air movement Cardiovascular: Regular rate/rhythm, Normal S1 S2 Gastrointestinal: Normal bowel sounds, No tenderness Musculoskeletal: No tenderness Integumentary: No rashes Neurological: Normal speech, Normal strength at 5/5 x4 extr, Normal tone, Normal affect Urinary: Hankins catheter - Studies Laboratory Data (last 24 hrs) 02/02/22 18:27: Sodium 140, Potassium 4.2, BUN 34 H, Creatinine 1.45 H, Glucose 102 02/02/22 18:27: WBC 9.3, Hgb 12.8 L, Hct 38.9 L, Plt Count 343 Assessment and Plan - Problems (Diagnosis) (1) AMS (altered mental status) Current Visit: Yes Status: Acute Qualifiers: Altered mental status type: unspecified Qualified Code(s): R41.82 - Altered mental status, unspecified (2) UTI (urinary tract infection) Current Visit: Yes Status: Acute Qualifiers: Urinary tract infection type: site unspecified Hematuria presence: with hematuria Qualified Code(s): N39.0 - Urinary tract infection, site not specified; R31.9 - Hematuria, unspecified (3) Alzheimer's dementia Current Visit: Yes Status: Chronic (4) Bipolar disorder Current Visit: Yes Status: Chronic Qualifiers: Active/Remission status: remission status unspecified Qualified Code(s): F31.9 - Bipolar disorder, unspecified (5) Chronic a-fib Current Visit: Yes Status: Chronic (6) Hypothyroidism Current Visit: Yes Status: Chronic Qualifiers: Hypothyroidism type: unspecified Qualified Code(s): E03.9 - Hypothyroidism, unspecified (7) COVID-19 Current Visit: Yes Status: Acute (8) Sepsis Current Visit: Yes Status: Acute Qualifiers: Sepsis type: sepsis due to unspecified organism Sepsis acute organ dysfunc tion status: with acute organ dysfunction Severe sepsis acute organ dysfunction type: acute renal failure Acute renal failure type: unspecified Severe sepsis shock status: without septic shock Qualified Code(s): A41.9 - Sepsis, unspecified organism; R65.20 - Severe sepsis without septic shock; N17.9 - Acute kidney failure, unspecified (9) Chronic kidney disease Current Visit: Yes Status: Acute Qualifiers: Chronic kidney disease stage: stage 3 (moderate) Chronic kidney disease stage 3 subtype: stage 3a (GFR 45-59) Qualified Code(s): N18.31 - Chronic kidney disease, stage 3a (10) Hypertension Current Visit: Yes Status: Chronic - Plan -Previous urine culture grew MRSA, pseudomonas, and enterococcus with resistance to meropenem and vanc -Continue IV antibiotics and IV fluids -Blood and urine cultures obtained -Monitor on telemetry -Vitamin C, zinc, and dexamethasone daily. Monitor O2 sats -EMERY likely secondary to sepsis. Monitor renal function and hold nephrotoxic drugs -Reconcile and continue home medications -Lovenox for VTE ppx -Full code Discharge Plan: Correction Plan to discharge in: Greater than 2 days - Advance Directives Does patient have a Living Will: No Does patient have a Durable POA for Healthcare: No - Code Status/Comfort Care Code Status Assessed: Yes Critical Care: No Time Spent Managing Pts Care (In Minutes): 50
[2022-02-02] MEDS: NA CHLORIDE 0.9% 1,000 ML IV SCH (22:59)
[2022-02-02] MEDS ORDERED: VANCOMYCIN 1 GM in NA CHLORIDE 0.9% 250 ML IVPB SCH (23:00)
[2022-02-02] MEDS: Meropenem 1,000 MG in NA CHLORIDE 0.9% 100 ML IV SCH (23:00)
[2022-02-02] MEDS ORDERED: NA CHLORIDE 0.9% 1,000 ML ONE (23:05)
[2022-02-02] MEDS ORDERED: NA CHLORIDE 0.9% 100 ML ONE (23:52)
[2022-02-02] MEDS ORDERED: Meropenem 1000 MG/VIAL IV ONE (23:52)
[2022-02-03] MEDS ORDERED: VANCOMYCIN 1 GM/VIAL ONE (00:02)
[2022-02-03] MEDS ORDERED: NA CHLORIDE 0.9% 250 ML ONE ×2 (00:03→00:45)
[2022-02-03] MEDS ORDERED: VANCOMYCIN 2 GM in NA CHLORIDE 0.9% 500 ML IVPB SCH (01:00)
[2022-02-03 01:31] VITALS: BMI 40.1
[2022-02-03 04:27] LABS: Hematocrit 34.3 % (39.6-49.0); Lymphocytes % 10.8 % (15.3-44.8); MCV 95.3 fL (80-100); MPV 7.4 fL (7.6-11.3)
[2022-02-03 04:51] LABS: Magnesium 1.8 mg/dL (1.8-2.4); Potassium 4.2 mmol/L (3.5-5.1); Thyroid Stimulating Hormone 1.02 uIU/mL (0.360-3.740)
[2022-02-03] MEDS ORDERED: MAGNESIUM SULFATE 1 gm IVPB 1 GM/100 ML BAG IV ONE (07:51)
[2022-02-03] MEDS: ASCORBIC ACID 500 MG TABLET PO SCH (09:00)
[2022-02-03] MEDS ORDERED: ZINC GLUCONATE 50 MG TAB PO SCH (09:00)
[2022-02-03] MEDS: ENOXAPARIN 40 MG/0.4 ML SQ SCH (10:51)
[2022-02-03] MEDS: Meropenem 1,000 MG in NA CHLORIDE 0.9% 100 ML IV SCH ×2 (10:51→23:03)
[2022-02-03] MEDS: NA CHLORIDE 0.9% 1,000 ML IV SCH ×3 (10:52→23:06)
[2022-02-03] MEDS: dexAMETHasone 4 MG TAB PO SCH (10:52)
[2022-02-03] MEDS: ZINC SULFATE 220 MG CAP PO SCH (10:52)
[2022-02-03 21:01] VITALS: O2SAT 97
--- NOTE | 2022-02-03 23:37 | P.PN ---
Subjective Date of Service: 02/03/22 Subjective: No new changes, No C/O voiced, Improving Review of Systems 10-point ROS is otherwise unremarkable Physical Examination - Vital Signs Temperature: 97.2 F Blood Pressure: 141/66 Pulse: 83 Respirations: 20 Pulse Ox (%): 100 - Physical Exam General: Confused Respiratory: Clear to auscultation bilaterally, Normal air movement Cardiovascular: Regular rate/rhythm, Normal S1 S2 Gastrointestinal: Normal bowel sounds, Soft and benign, Non-distended Musculoskeletal: No clubbing, No swelling Neurological: Dementia - Studies Microbiology Data (last 24 hrs): 02/02/22 20:47 Blood - Blood Blood Culture Gram Stain - Final Assessment & Plan - Problems (Diagnosis) (1) AMS (altered mental status) Current Visit: Yes Status: Acute Qualifiers: Altered mental status type: unspecified Qualified Code(s): R41.82 - Altered mental status, unspecified (2) Acute renal failure Current Visit: Yes Status: Acute Qualifiers: Acute renal failure type: unspecified Qualified Code(s): N17.9 - Acute k idney failure, unspecified (3) COVID-19 Current Visit: Yes Status: Acute (4) Alzheimer's dementia Current Visit: Yes Status: Chronic (5) Atrial fibrillation Current Visit: Yes Status: Chronic Qualifiers: Atrial fibrillation type: unspecified Qualified Code(s): I48.91 - Unspecified atrial fibrillation (6) Bipolar disorder Current Visit: Yes Status: Chronic Qualifiers: Active/Remission status: remission status unspecified Qualified Code(s): F31.9 - Bipolar disorder, unspecified (7) Chronic a-fib Current Visit: Yes Status: Chronic (8) Hypertension Current Visit: Yes Status: Chronic (9) History of hypertension Onset Date: 03/08/18 Current Visit: No Status: Chronic (10) History of seizure disorder Onset Date: 03/08/18 Current Visit: No Status: Chronic - Advance Directives Does patient have a Living Will: No Does patient have a Durable POA for Healthcare: No
[2022-02-04] MEDS ORDERED: VANCOMYCIN 1.25 GM in NA CHLORIDE 0.9% 250 ML IVPB SCH ×2
[2022-02-04 03:51] LABS: Absolute Lymphocytes (CBC) 1.2 K/uL (0.7-4.9); Hematocrit 31.9 % (39.6-49.0); Lymphocytes % 16.4 % (15.3-44.8); MCV 94.8 fL (80-100); MPV 7.8 fL (7.6-11.3); RBC Red Blood Cell Count 3.37 M/uL (4.33-5.43)
[2022-02-04 04:01] LABS: Magnesium 1.9 mg/dL (1.8-2.4); Potassium 3.8 mmol/L (3.5-5.1)
[2022-02-04] MEDS: NA CHLORIDE 0.9% 1,000 ML IV SCH (05:00)
[2022-02-04] MEDS ORDERED: POTASSIUM CL SA 10 MEQ TAB PO ONE (09:00)
[2022-02-04] MEDS: dexAMETHasone 4 MG TAB PO SCH (09:48)
[2022-02-04] MEDS: ASCORBIC ACID 500 MG TABLET PO SCH (09:48)
[2022-02-04] MEDS: ZINC SULFATE 220 MG CAP PO SCH (09:49)
[2022-02-04] MEDS: ENOXAPARIN 40 MG/0.4 ML SQ SCH (09:49)
[2022-02-04] MEDS: Meropenem 1,000 MG in NA CHLORIDE 0.9% 100 ML IV SCH (12:10)
[2022-02-04 12:40] VITALS: TEMP 97.3
[2022-02-04 19:23] VITALS: BP 118/63
--- NOTE | 2022-02-09 09:21 | P.DS ---
Discharge Date: 02/04/22 Disposition: TRANSFER TO SNF - MEDICAL Discharge Condition: GOOD Reason for Admission: AMS, COVID, UTI - Problems (1) AMS (altered mental status) Status: Acute Qualifiers: Altered mental status type: unspecified Qualified Code(s): R41.82 - Altered mental status, unspecified (2) Acute renal failure Status: Acute Qualifiers: Acute renal failure type: unspecified Qualified Code(s): N17.9 - Acute kidney failure, unspecified (3) COVID-19 Status: Acute (4) Alzheimer's dementia Status: Chronic (5) Atrial fibrillation Status: Chronic Qualifiers: Atrial fibrillation type: unspecified Qualified Code(s): I48.91 - Unspecified atrial fibrillation (6) Bipolar disorder Status: Chronic Qualifiers: Active/Remission status: remission status unspecified Qualified Code(s): F31.9 - Bipolar disorder, unspecified (7) Chronic a-fib Status: Chronic (8) Hypertension Status: Chronic (9) History of hypertension Onset Date: 03/08/18 Status: Chronic (10) History of seizure disorder Onset Date: 03/08/18 Status: Chronic Brief History of Present Illness: Patient is a 76-year-old male with PMH of atrial fibrillation, dementia, bipolar disorder, hypertension, 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 [facility] also reports that he tested positive for COVID 4 hours [employer]. Patient febrile and tachycardic on arrival. Labs significant for BUN 35, Cr 1.45, procal 0.2, urine positive for UTI. Patient has history of multidrug-resistant UTIs, including ESBL. He was given 1L fluid and rocephin in ED. Patient is admitted for further evaluation and treatment. Hospital Course: Patient is clinically doing much better. Respiratory status is stable. At this time, patient is stable for discharge. Will continue with tapering dose of steroids and antibiotic therapy. Vital Signs/Physical Exam: Temp Pulse Resp BP Pulse Ox 97.3 F 69 16 118/63 99 02/04/22 16:00 02/04/22 16:00 02/04/22 16:00 02/04/22 16:00 02/04/22 16:00 General: Alert, In no apparent distress, Oriented x3 Laboratory Data at Discharge: WBC 7.3 K/uL (4.3-10.9) D 02/04/22 03:13 Hgb 10.8 g/dL (13.6-17.9) L 02/04/22 03:13 Hct 31.9 % (39.6-49.0) L 02/04/22 03:13 Plt Count 286 K/uL (152-406) 02/04/22 03:13 Sodium 145 mmol/L (136-145) 02/04/22 03:13 Potassium 3.8 mmol/L (3.5-5.1) 02/04/22 03:13 BUN 31 mg/dL (7-18) H 02/04/22 03:13 Creatinine 1.30 mg/dL (0.55-1.3) 02/04/22 03:13 Glucose 90 mg/dL (74-106) 02/04/22 03:13 Magnesium 1.9 mg/dL (1.8-2.4) 02/04/22 03:13 Triglycerides 113 mg/dL (<150) 02/03/22 04:05 Cholesterol 109 mg/dL (<200) 02/03/22 04:05 HDL Cholesterol 31 mg/dL (40-60) L 02/03/22 04:05 Cholesterol/HDL Ratio 3.52 02/03/22 04:05 Home Medications: Acetaminophen [Tylenol Arthritis] 650 mg PO Q6HP PRN 02/03/22 Acetaminophen with Codeine [Tylenol with-Codeine #3 Tablet] 1 each PO Q6HP PRN 02/03/22 Apixaban [Eliquis *] 2.5 mg PO BID 02/03/22 Arginine/Ascorbate Sod/Denice AC [Arginaid Powder] 1 each PO DAILY 02/03/22 Aspirin [Adult Aspirin Regimen] 81 mg PO DAILY 02/03/22 Atorvastatin Calcium [Lipitor*] 20 mg PO BEDTIME 02/03/22 Calcium Carbonate/Vitamin D3 [Calcium 600 mg-D3 10 Mcg Sfgl] 1 each PO DAILY Duonebs 0.5mg/3mg 1 aer IH DAILYPRN PRN 02/03/22 Famotidine [Pepcid*] 20 mg PO DAILY 02/03/22 Fluoxetine HCl [Prozac] 40 mg PO DAILY 02/03/22 Gabapentin [Neurontin*] 100 mg PO TID 02/03/22 Levothyroxine Sodium [Levothyroxine] 150 mcg PO DAILY 02/03/22 Mvi With Lutein 200-137.5 Mcg 1 tab PO DAILY 02/03/22 Nitroglycerin 0.4 mg SL [id number] PRN MDD 3 tablets per 24H 02/03/22 Cefdinir [Omnicef] 300 mg PO BID #14 capsule 02/04/22 Dexamethasone [Decadron] 0.75 mg PO DAILY #5 tablet 02/04/22 Smz./Tmp. [Bactrim Ds 800 MG/160 MG] 1 each PO DAILY #7 tab 02/04/22 New Medications: Smz./Tmp. [Bactrim Ds 800 MG/160 MG] 1 each PO DAILY #7 tab Dexamethasone [Decadron] 0.75 mg PO DAILY #5 tablet Cefdinir [Omnicef] 300 mg PO BID #14 capsule Physician Discharge Instructions: OK TO DC IV AND DC BACK TO THE PENITENTIARY FOLLOW-UP WITH PRIMARY CARE PROVIDER IN 1-2 DAYS RETURN TO THE ER IF SYMPTOMS WORSEN CALL DR. MARIE AT [phone] IF ANY QUESTIONS REGARDING HOSPITAL STAY. PLEASE CALL THE FLOOR AT [phone] IF ANY MEDICATION OR NURSING QUESTIONS. Diet: Renal Activity: Fall precautions Followup: NONE,NONE [Primary Care Provider] - Time spent managing pt's care (in minutes): 35
--- OUTSIDE RECORDS SUMMARY | 2022-02-12 00:29 | XMS REPORT | Continuity of Care Document ---
:1945 Author Organization [facility] t Address [address] [place] [address] Care Team Providers Name Role Phone Pcp , Romelia Primary Care Physician Unavailable JESSICA CONNER Attending Clinician Unavailable GC_BAHC_Todd_Kristine Attending Clinician Unavailable ASYA Attending Clinician Unavailable Daniel Attending Clinician [phone] Humphrey Kumar Attending Clinician [phone] Santos Attending Clinician [phone] GC_BAHC_Spanglted_Nicole Attending Clinician Unavailable Myrtle Conner MD Attending Clinician Deacon Zuniga MD Attending Clinician [phone] Manav Diggs MD Attending Clinician Nelli GONZÁLES Attending Clinician KNOW Attending Clinician Unavailable POLI CONNER Admitting Clinician Unavailable GC_BAHC_Todd_Kristine Admitting Clinician Unavailable ASYA Admitting Clinician Unavailable GC_BAHC_Stacy_Nicole Admitting Clinician Unavailable KNOW Admitting Clinician Unavailable Payers Payer Name Policy Type Policy Number Effective Date Expiration Date Hernesto davis [place]: [id number] 2004 [employer] 00:00:[address] [facility] - [id number] 2021 [employer] [place] 00:00:00 (MEDICAID REPLACEMENT - HMO) Problems Condition Condition Condition Status Onset Resolution Last Treating Co mments Source Name Details Category Date Date Treatment Clinician Date UTI UTI Disease Active [facility] tract tract 00:00: Medical infection) infection) 00 Ce nter Acute Acute Disease Active [facility] hypoxemic hypoxemic - [facility] s respirator respirator 00:00: Me dical y failure y failure 00 Cent er COVID-19 COVID-19 Disease [facility] Pseudophak Problem Active 2019-02-03 M emoria ia 08-09 11:44:46 l (disorder) 00:00: Roverto n Pseudophak 00 ia (disorder) Active 08/09/2012 Problem 02/03/2019 Data migrated from [employer] on 12/22/14. [facility] Visual Problem Active 2019-02-03 Memor ia field 08-09 11:44:46 l defect Visual 00:00: [place] (finding) field 00 defect (finding) Active 08/09/2012 Problem 02/03/2019 Data migrated from [employer] on 12/22/14. [facility] Disorder Problem Active 2019-02-03 Mem oria of 08-09 11:44:46 l refraction Disorder 00:00: He rmann [...] 2019-02-03 M emoria ve 11:44:46 l disorder, Cristian systemic Hypertensi arterial ve (disorder) disorder, systemic arterial (disorder) Active Problem 02/03/2019 Data migrated from [employer] on 12/22/14. [facility] Hypothyroi Problem Active 2019-02-03 M emoria dism 11:44:46 l (disorder) Roverto n Hypothyroi dism (disorder) Active Problem 02/03/2019 [facility] Major Problem Active 2019-02-03 Memor ia depressive 11:44:46 l disorder Major Cristian (disorder) depressive disorder (disorder) Active Problem 02/03/2019 Data migrated from [employer] on 12/22/14. [facility] Parkinsoni Problem Active 2019-02-03 M emoria sm 11:44:46 l (disorder) Roverto n Parkinsoni sm (disorder) Active Problem 02/03/2019 [facility] Allergies, Adverse Reactions, Alerts Allergy Allergy Status Severity Reaction(s) Onset Inactive Treating Comm ents Source Name Type Date Date Clinician Penicill Drug Active [facility]axis [facility] PENICILL Allergy Active High Anaphylaxis [facility] NO KNOWN Allergy Active [facility] penicill penicill Active Memori a ins<sup> ins<sup> l 1</sup> 1</sup> Cristian penicill penicill Active Memori a in in l Cristian rabies rabies Active Memoria immune immune l globulin globulin Roverto n , , human<mojica human<mojica p>2</sup p>2</sup > > rabies rabies Active Memoria vaccine vaccine l Cristian Social History Social Habit Start Date Stop Date Quantity Comments Source Exposure to Not sure [facility] SARS-CoV-2 (event) Medica l Center Sex Assigned At [birth year] [facility] kes 00:00:00 00:00:00 Medical Center Smoking Status Start Date Stop Date Source Social History [facility] Medications Ordered Filled Start Stop Current Ordering Indication Dosage Frequency Signature Comments Components Source Medication Medication Date Date Medication? Clinician (SIG) Name Name [facility]- No 1{tbl} QD Take [address] n 04-03 tablet by [facility] ([employer]) 00:00: 23:59 mouth Medi nilson tablet 00 :00 daily. [place] [facility] 2021- No 1{tbl} QD Take [address] n 04-03 tablet by FernSMS [employer] ([employer]ascaleAN) 00:00: 23:59 mouth Medi nilson tablet 00 :00 daily. [place] [facility] 2021- No 1{tbl} QD Take [address] n 04-03 tablet by FernSMS [employer] ([employer]) 00:00: 23:59 mouth Medi nilson tablet 00 :00 daily. [place] [facility] 2021- No 1{tbl} QD Take [address] n 04-03 tablet by FernSMS [employer] ([employer]) 00:00: 23:59 mouth Medi nilson tablet 00 :00 daily. [place] [facility] 2021- No 1{tbl} QD Take [address] n 04-03 tablet by FernSMS [employer] ([employer]) 00:00: 23:59 mouth Medi nilson tablet 00 :00 daily. [place] [facility] 2021- No 1{tbl} QD Take [address] n 04-03 tablet by [employer] (NumascaleAN) 00:00: 23:59 mouth Medi nilson tablet 00 :00 daily. [place] ascorbic No 250mg QD Take 1 [facility] acid, 04-03 tablet FernSMS [employer] vitamin C, 00:00: 23:59 (250 mg Med ical (VITAMIN C) 00 :00 total) by Gutier[address] ter 250 MG mouth tablet daily for 30 days. honey 100 % 2020- No 1{appli QD Apply [address] [facility] Pste 04-03 cation} applicatio [place] 00:00: 23:59 n Medical 00 :00 topically [place] daily for 30 days -Peg tube wound: Cleanse with NS, pat dry. Apply to open wound dime size medi-honey from edge to edge and cover with "cut to fit" Allevyn foam dressing.. ascorbic 2020- No 250mg QD Take 1 [facility] acid, 04-03 tablet [facility] vitamin C, 00:00: 23:59 (250 mg Med ical (VITAMIN C) 00 :00 total) by Gutier[address] ter 250 MG mouth tablet daily for 30 days. honey 100 % 2020- No 1{appli QD Apply [address] [facility] Pste 04-03 cation} applicatio [facility] 00:00: 23:59 n Medical 00 :00 topically Center daily for 30 days -Peg tube wound: Cleanse with NS, pat dry. Apply to open wound dime size medi-honey from edge to edge and cover with "cut to fit" Allevyn foam dressing.. ascorbic 2020- No 250mg QD Take 1 [facility] acid, 04-03 tablet [facility] vitamin C, 00:00: 23:59 (250 mg Med ical (VITAMIN C) 00 :00 total) by [address]ier[address] ter 250 MG mouth tablet daily for 30 days. honey 100 % 2020- No 1{appli QD Apply [address] [facility] Pste 04-03 cation} applicatio [facility] 00:00: 23:59 n Medical 00 :00 topically Center daily for 30 days -Peg tube wound: Cleanse with NS, pat dry. Apply to open wound dime size medi-honey from edge to edge and cover with "cut to fit" Allevyn foam dressing.. ascorbic 2020- No 250mg QD Take 1 [facility] acid, 04-03 tablet [facility] vitamin C, 00:00: 23:59 (250 mg Med ical (VITAMIN C) 00 :00 total) by Gutier[address] ter 250 MG mouth tablet daily for 30 days. honey 100 % 2020- No 1{appli QD Apply [address] [facility] Pste 04-03 cation} applicatio [facility] 00:00: 23:59 n Medical 00 :00 topically Center daily for 30 days -Peg tube wound: Cleanse with NS, pat dry. Apply to open wound dime size medi-honey from edge to edge and cover with "cut to fit" Allevyn foam dressing.. ascorbic 2020- No 250mg QD Take 1 [facility] acid, 04-03 tablet [facility] vitamin C, 00:00: 23:59 (250 mg Med ical (VITAMIN C) 00 :00 total) by Gutier[address] ter 250 MG mouth tablet daily for 30 days. honey 100 % 2020- No 1{appli QD Apply [address] [facility] Pste 04-03 cation} applicatio [facility] 00:00: 23:59 n Medical 00 :00 topically Center daily for 30 days -Peg tube wound: Cleanse with NS, pat dry. Apply to open wound dime size medi-honey from edge to edge and cover with "cut to fit" Allevyn foam dressing.. ascorbic 2020- No 250mg QD Take 1 [facility] acid, 04-03 tablet [facility] vitamin C, 00:00: 23:59 (250 mg Med ical (VITAMIN C) 00 :00 total) by Gutier[address] 250 MG mouth tablet daily for 30 days. honey 100 % 2020- No 1{appli QD Apply [address] [facility] Pste 04-03 cation} applicatio [facility] 00:00: 23:59 n Medical 00 :00 topically Center daily for 30 days -Peg tube wound: Cleanse with NS, pat dry. Apply to open wound dime size medi-honey from edge to edge and cover with "cut to fit" Allevyn foam dressing.. sodium 2020- No QD Apply [facility] hypochlorit 04-03 topically Fern kes e (DAKIN'S, 00:00: 23:59 daily for Medical HALF-STRENG 00 :00 7 days [facility],) 0.25 % -Sacrum: external Cleanse solution with 0.25% Dakins solution and pack with 0.25% Dakins wet to dry dressing. Cover with Allevyn foam dressing daily.. sodium 2020- No QD Apply [facility] hypochlorit 04-03 topically Fern kes e (DAKIN'S, 00:00: 23:59 daily for Medical HALF-STRENG 00 :00 7 days [facility],) 0.25 % -Sacrum: external Cleanse solution with 0.25% Dakins solution and pack with 0.25% Dakins wet to dry dressing. Cover with Allevyn foam dressing daily.. sodium 2020- No QD Apply [facility] hypochlorit 04-03 topically Fern kes e (DAKIN'S, 00:00: 23:59 daily for Medical HALF-STRENG 00 :00 7 days [facility],) 0.25 % -Sacrum: external Cleanse solution with 0.25% Dakins solution and pack with 0.25% Dakins wet to dry dressing. Cover with Allevyn foam dressing daily.. sodium 2020- No QD Apply [facility] hypochlorit 04-03 topically Fern kes e (DAKIN'S, 00:00: 23:59 daily for Medical HALF-STRENG 00 :00 7 days [facility],) 0.25 % -Sacrum: external Cleanse solution with 0.25% Dakins solution and pack with 0.25% Dakins wet to dry dressing. Cover with Allevyn foam dressing daily.. sodium 2020- No QD Apply [facility] hypochlorit 04-03 topically Fern kes e (DAKIN'S, 00:00: 23:59 daily for Medical HALF-STRENG 00 :00 7 days [facility],) 0.25 % -Sacrum: external Cleanse solution with 0.25% Dakins solution and pack with 0.25% Dakins wet to dry dressing. Cover with Allevyn foam dressing daily.. sodium 2020- No QD Apply [facility] hypochlorit 04-03 topically Fern kes e (DAKIN'S, 00:00: 23:59 daily for Medical HALF-STRENG 00 :00 7 days [facility],) 0.25 % -Sacrum: external Cleanse solution with 0.25% Dakins solution and pack with 0.25% Dakins wet to dry dressing. Cover with Allevyn foam dressing daily.. zinc 2020- No 220mg QD Take [address] [facility] sulfate 04-03 capsule [facility] (ZINCATE) 00:00: 00:00 (220 mg Medi nilson 50 mg zinc 00 :00 total) by Cent er (220 mg) mouth capsule daily for 10 days. zinc 2020- No 220mg QD Take [address] [facility] sulfate 04-03 capsule [facility] (ZINCATE) 00:00: 00:00 (220 mg Medi nilson 50 mg zinc 00 :00 total) by Cent er (220 mg) mouth capsule daily for 10 days. zinc 2020- No 220mg QD Take [address] [facility] sulfate 04-03 capsule [facility] (ZINCATE) 00:00: 00:00 (220 mg Medi nilson 50 mg zinc 00 :00 total) by Cent er (220 mg) mouth capsule daily for 10 days. zinc 2020- No 220mg QD Take [address] [facility] sulfate 04-03 capsule [facility] (ZINCATE) 00:00: 00:00 (220 mg Medi nilson 50 mg zinc 00 :00 total) by Cent er (220 mg) mouth capsule daily for 10 days. zinc 2020- No 220mg QD Take [address] [facility] sulfate 04-03 capsule [facility] (ZINCATE) 00:00: 00:00 (220 mg Medi nilson 50 mg zinc 00 :00 total) by Cent er (220 mg) mouth capsule daily for 10 days. zinc 2020- No 220mg QD Take [address] [facility] sulfate 04-03 capsule [facility] (ZINCATE) 00:00: 00:00 (220 mg Medi nilson 50 mg zinc 00 :00 total) by Cent er (220 mg) mouth capsule daily for 10 days. acetaminoph Yes 1{tbl} Take [address] en-codeine 04-02 tablet by Joss s (TYLENOL 18:23: mouth Medical #3) 300-30 35 every 6 Center mg per (six) tablet hours as needed. donepeziL Yes 10mg QD Take [address] (ARICEPT) 04-02 by mouth [facility] 10 MG 18:23: nightly. Medical tablet 35 Center Missing or Yes Aspercreme [facility] Non-Formula 04-02 (lidocaine Fern kes ry 18:23: 4%) patch Medical Medication 35 BID . Center calcium Yes 1{tbl} QD Take [address] [facility] [address] carbonate-v 04-02 tablet by Rafael es itamin D3 18:23: mouth Medical (calcium-vi 35 daily. Center tamin D) 500 mg(1,250mg) -200 unit per tablet phenytoin 2021-0 Yes Q.[id number] Take by [facility] (DILANTIN) 9-08 [id number] mouth 3 [facility] 100 MG ER 18:23: 3D (three) Medic al capsule 35 times Center daily. docusate 2020-0 Yes 100mg Q.5D Take [address] [facility] sodium 9-08 mg by [facility] (COLACE) 18:23: mouth 2 Medica l 100 MG 35 (two) Center capsule times daily. famotidine 2020-0 Yes 20mg Q.5D Take [address] (PEPCID) 20 9-08 by mouth 2 Fern kes MG tablet 18:23: (two) Medical 35 times Center daily. folic acid 2020-0 Yes 1mg QD Take [address] (FOLVITE) 1 9-08 by mouth Luke s MG tablet 18:23: daily. Medica l 35 Center furosemide 2020-0 Yes 20mg QD Take [address] (LASIX) 20 9-08 by mouth [facility] MG tablet 18:23: daily. Medica l 35 Center hydrOXYzine 2020-0 Yes 25mg Take [address] [facility] (ATARAX) 25 9-08 by mouth 3 Fern kes MG tablet 18:23: (three) Medic al 35 times Center daily as needed for Itching. ipratropium 2020-0 Yes 500ug Q.[id number] Take [address] [facility] [address] (ATROVENT) 9-08 [id number] mcg by L ukes 0.02 % 18:23: 3D nebulizati Medic al nebulizer 35 on 3 Center solution (three) times daily. magnesium 2020-0 Yes 400mg Q.5D Take [address] [address] oxide 9-08 mg by [facility] (MAG-OX) 18:23: mouth 2 Medica l 400 mg 35 (two) Center (241.3 mg times magnesium) daily. tablet megestroL 2020-0 Yes 400mg QD Take [address] (MEGACE) 9-08 mg by [facility] 400 mg/10 18:23: mouth Medical mL (40 35 daily. Center mg/mL) suspension polyethylen 2020-0 Yes 17g QD Take [address] e glycol 9-08 by mouth [facility] (GLYCOLAX) 18:23: daily. Medic al 17 gram 35 Center packet gabapentin 2021-0 Yes 100mg Q.[id number] Take [address] [facility] (NEURONTIN) 9-08 [id number] mg by L ukes 100 MG 18:23: 3D mouth 3 Medical capsule 35 (three) Center times daily. potassium Yes 10meq QD Take [address] [facility] chloride 9-08 mEq by [facility] (KLOR-CON) 18:23: mouth Medica l 10 MEQ CR 35 daily. Center tablet levothyroxi Yes 150ug Take [address] ne 9-08 mcg by [facility] (SYNTHROID, 18:23: mouth Medic al LEVOTHROID) 35 Every Center 150 MCG morning on tablet an empty stomach. traZODone Yes 100mg QD Take [address] [facility] [address] (DESYREL) 9-08 mg by [facility] 100 MG 18:23: mouth Medical tablet 35 nightly. Center valproic Yes 1000mg Q.5D Take 1,[address] acid, as 9-08 mg by Lujose sodium 18:23: mouth 2 Medical salt, 35 (two) Center (DEPAKENE) times 250 mg/5 mL daily. (5 mL) solution acetaminoph Yes 1{tbl} Take [address] en-codeine 9-08 tablet by Joss stinson (TYLENOL 18:23: mouth Medical #3) 300-30 35 every 6 Center mg per (six) tablet hours as needed. donepeziL Yes 10mg QD Take [address] (ARICEPT) 9-08 by mouth [facility] 10 MG 18:23: nightly. Medical tablet 35 Center Missing or Yes Aspercreme [facility] Non-Formula 9-08 (lidocaine Fern kes ry 18:23: 4%) patch Medical Medication 35 BID . Center calcium Yes 1{tbl} QD Take [address] [facility] [address] carbonate-v 9-08 tablet by Rafael es itamin D3 18:23: mouth Medical (calcium-vi 35 daily. Center tamin D) 500 mg(1,250mg) -200 unit per tablet phenytoin 0 Yes Q.[id number] Take by [facility] (DILANTIN) 9-08 [id number] mouth 3 [facility] 100 MG ER 18:23: 3D (three) Medic al capsule 35 times Center daily. docusate 2020-0 Yes 100mg Q.5D Take [address] [facility] [address] sodium 9-08 mg by [facility] (COLACE) 18:23: mouth 2 Medica l 100 MG 35 (two) Center capsule times daily. famotidine 2020-0 Yes 20mg Q.5D Take [address] (PEPCID) 20 9-08 by mouth 2 Fern kes MG tablet 18:23: (two) Medical 35 times Center daily. folic acid 2020-0 Yes 1mg QD Take [address] (FOLVITE) 1 9-08 by mouth Luke s MG tablet 18:23: daily. Medica l 35 Center furosemide 2020-0 Yes 20mg QD Take [address] (LASIX) 20 9-08 by mouth [facility] MG tablet 18:23: daily. Medica l 35 Center hydrOXYzine 2020-0 Yes 25mg Take [address] [facility] (ATARAX) 25 9-08 by mouth 3 Fern kes MG tablet 18:23: (three) Medic al 35 times Center daily as needed for Itching. ipratropium 0 Yes 500ug Q.[id number] Take [address] [address] (ATROVENT) 9-08 [id number] mcg by L ukes 0.02 % 18:23: 3D nebulizati Medic al nebulizer 35 on 3 Center solution (three) times daily. magnesium 2020-0 Yes 400mg Q.5D Take [address] oxide 9-08 mg by [facility] (MAG-OX) 18:23: mouth 2 Medica l 400 mg 35 (two) Center (241.3 mg times magnesium) daily. tablet megestroL 2020-0 Yes 400mg QD Take [address] (MEGACE) 9-08 mg by [facility] 400 mg/10 18:23: mouth Medical mL (40 35 daily. Center mg/mL) suspension polyethylen 2020-0 Yes 17g QD Take [address] e glycol 9-08 by mouth [facility] (GLYCOLAX) 18:23: daily. Medic al 17 gram 35 Center packet gabapentin 2020-0 Yes 100mg Q.[id number] Take [address] [facility] [address] (NEURONTIN) 9-08 [id number] mg by L ukes 100 MG 18:23: 3D mouth 3 Medical capsule 35 (three) Center times daily. potassium Yes 10meq QD Take [address] [address] chloride 9-08 mEq by [facility] (KLOR-CON) 18:23: mouth Medica l 10 MEQ CR 35 daily. Center tablet levothyroxi 0 Yes 150ug Take [address] ne 9-08 mcg by [facility] (SYNTHROID, 18:23: mouth Medic al LEVOTHROID) 35 Every Center 150 MCG morning on tablet an empty stomach. traZODone 0 Yes 100mg QD Take [address] (DESYREL) 9-08 mg by [facility] 100 MG 18:23: mouth Medical tablet 35 nightly. Center valproic Yes 1000mg Q.5D Take 1,[address] acid, as 9-08 mg by [facility] sodium 18:23: mouth 2 Medical salt, 35 (two) Center (DEPAKENE) times 250 mg/5 mL daily. (5 mL) solution acetaminoph Yes 1{tbl} Take [address] en-codeine 9-08 tablet by Joss s (TYLENOL 18:23: mouth Medical #3) 300-30 35 every 6 Center mg per (six) tablet hours as needed. donepeziL Yes 10mg QD Take [address] (ARICEPT) 9-08 by mouth [facility] 10 MG 18:23: nightly. Medical tablet 35 Center Missing or Yes Aspercreme [facility] Non-Formula 9-08 (lidocaine Fern kes ry 18:23: 4%) patch Medical Medication 35 BID . Center calcium Yes 1{tbl} QD Take [address] [facility] [address] carbonate-v 9-08 tablet by Rafael es itamin D3 18:23: mouth Medical (calcium-vi 35 daily. Center tamin D) 500 mg(1,250mg) -200 unit per tablet phenytoin 2020-0 Yes Q.[id number] Take by [facility] (DILANTIN) 9-08 [id number] mouth 3 [facility] 100 MG ER 18:23: 3D (three) Medic al capsule 35 times Center daily. docusate 0 Yes 100mg Q.5D Take [address] [address] sodium 9-08 mg by [facility] (COLACE) 18:23: mouth 2 Medica l 100 MG 35 (two) Center capsule times daily. famotidine 0 Yes 20mg Q.5D Take [address] (PEPCID) 20 9-08 by mouth 2 Fern kes MG tablet 18:23: (two) Medical 35 times Center daily. folic acid 2020-0 Yes 1mg QD Take [address] (FOLVITE) 1 9-08 by mouth Luke s MG tablet 18:23: daily. Medica l 35 Center furosemide 2020-0 Yes 20mg QD Take [address] (LASIX) 20 9-08 by mouth [facility] MG tablet 18:23: daily. Medica l 35 Center hydrOXYzine 2020-0 Yes 25mg Take [address] [facility] [address] (ATARAX) 25 9-08 by mouth 3 Fern kes MG tablet 18:23: (three) Medic al 35 times Center daily as needed for Itching. ipratropium 0 Yes 500ug Q.[id number] Take [address] (ATROVENT) 9-08 [id number] mcg by L ukes 0.02 % 18:23: 3D nebulizati Medic al nebulizer 35 on 3 Center solution (three) times daily. magnesium 0 Yes 400mg Q.5D Take [address] oxide 9-08 mg by [facility] (MAG-OX) 18:23: mouth 2 Medica l 400 mg 35 (two) Center (241.3 mg times magnesium) daily. tablet megestroL 0 Yes 400mg QD Take [address] (MEGACE) 9-08 mg by [facility] 400 mg/10 18:23: mouth Medical mL (40 35 daily. Center mg/mL) suspension polyethylen 2020-0 Yes 17g QD Take [address] e glycol 9-08 by mouth [facility] (GLYCOLAX) 18:23: daily. Medic al 17 gram 35 Center packet gabapentin 2020-0 Yes 100mg Q.[id number] Take [address] (NEURONTIN) 9-08 [id number] mg by L ukes 100 MG 18:23: 3D mouth 3 Medical capsule 35 (three) Center times daily. potassium 2020-0 Yes 10meq QD Take [address] chloride 9-08 mEq by [facility] (KLOR-CON) 18:23: mouth Medica l 10 MEQ CR 35 daily. Center tablet levothyroxi Yes 150ug Take [address] ne 9-08 mcg by [facility] (SYNTHROID, 18:23: mouth Medic al LEVOTHROID) 35 Every Center 150 MCG morning on tablet an empty stomach. traZODone Yes 100mg QD Take [address] (DESYREL) 9-08 mg by [facility] 100 MG 18:23: mouth Medical tablet 35 nightly. Center valproic Yes 1000mg Q.5D Take 1,[address] acid, as 9-08 mg by [facility] sodium 18:23: mouth 2 Medical salt, 35 (two) Center (DEPAKENE) times 250 mg/5 mL daily. (5 mL) solution acetaminoph Yes 1{tbl} Take [address] en-codeine 9-08 tablet by Joss s (TYLENOL 18:23: mouth Medical #3) 300-30 35 every 6 Center mg per (six) tablet hours as needed. donepeziL Yes 10mg QD Take [address] (ARICEPT) 9-08 by mouth [facility] 10 MG 18:23: nightly. Medical tablet 35 Center Missing or Yes Aspercreme [facility] Non-Formula 9-08 (lidocaine Fern kes ry 18:23: 4%) patch Medical Medication 35 BID . Center calcium Yes 1{tbl} QD Take [address] [facility] [address] carbonate-v 9-08 tablet by Rafael es itamin D3 18:23: mouth Medical (calcium-vi 35 daily. Center tamin D) 500 mg(1,250mg) -200 unit per tablet phenytoin 0 Yes Q.[id number] Take by [facility] (DILANTIN) 9-08 [id number] mouth 3 [facility] 100 MG ER 18:23: 3D (three) Medic al capsule 35 times Center daily. docusate 0 Yes 100mg Q.5D Take [address] sodium 9-08 mg by [facility] (COLACE) 18:23: mouth 2 Medica l 100 MG 35 (two) Center capsule times daily. famotidine 0 Yes 20mg Q.5D Take [address] (PEPCID) 20 9-08 by mouth 2 Fern kes MG tablet 18:23: (two) Medical 35 times Center daily. folic acid 0 Yes 1mg QD Take [address] (FOLVITE) 1 9-08 by mouth Luke s MG tablet 18:23: daily. Medica l 35 Center furosemide 0 Yes 20mg QD Take [address] (LASIX) 20 9-08 by mouth [facility] MG tablet 18:23: daily. Medica l 35 Center hydrOXYzine 0 Yes 25mg Take [address] [facility] [address] (ATARAX) 25 9-08 by mouth 3 Fern kes MG tablet 18:23: (three) Medic al 35 times Center daily as needed for Itching. ipratropium Yes 500ug Q.[id number] Take [address] (ATROVENT) 9-08 [id number] mcg by L ukes 0.02 % 18:23: 3D nebulizati Medic al nebulizer 35 on 3 Center solution (three) times daily. magnesium Yes 400mg Q.5D Take [address] oxide 9-08 mg by [facility] (MAG-OX) 18:23: mouth 2 Medica l 400 mg 35 (two) Center (241.3 mg times magnesium) daily. tablet megestroL Yes 400mg QD Take [address] (MEGACE) 9-08 mg by [facility] 400 mg/10 18:23: mouth Medical mL (40 35 daily. Center mg/mL) suspension polyethylen Yes 17g QD Take [address] e glycol 9-08 by mouth [facility] (GLYCOLAX) 18:23: daily. Medic al 17 gram 35 Center packet gabapentin Yes 100mg Q.[id number] Take [address] [facility] [address] (NEURONTIN) 9-08 [id number] mg by L ukes 100 MG 18:23: 3D mouth 3 Medical capsule 35 (three) Center times daily. potassium 0 Yes 10meq QD Take [address] chloride 9-08 mEq by [facility] (KLOR-CON) 18:23: mouth Medica l 10 MEQ CR 35 daily. Center tablet levothyroxi Yes 150ug Take [address] ne 9-08 mcg by [facility] (SYNTHROID, 18:23: mouth Medic al LEVOTHROID) 35 Every Center 150 MCG morning on tablet an empty stomach. traZODone Yes 100mg QD Take [address] [address] (DESYREL) 9-08 mg by [facility] 100 MG 18:23: mouth Medical tablet 35 nightly. Center valproic Yes 1000mg Q.5D Take 1,[address] acid, as 9-08 mg by [facility] sodium 18:23: mouth 2 Medical salt, 35 (two) Center (DEPAKENE) times 250 mg/5 mL daily. (5 mL) solution acetaminoph Yes 1{tbl} Take [address] en-codeine 9-08 tablet by Luke s (TYLENOL 18:23: mouth Medical #3) 300-30 35 every 6 Center mg per (six) tablet hours as needed. donepeziL Yes 10mg QD Take [address] (ARICEPT) 9-08 by mouth [facility] 10 MG 18:23: nightly. Medical tablet 35 Center Missing or Yes Aspercreme [facility] Non-Formula 04-02 (lidocaine Fern kes ry 18:23: 4%) patch Medical Medication 35 BID . Center calcium Yes 1{tbl} QD Take [address] [facility] [address] carbonate-v 9-08 tablet by Rafael es itamin D3 18:23: mouth Medical (calcium-vi 35 daily. Center tamin D) 500 mg(1,250mg) -200 unit per tablet phenytoin Yes Q.[id number] Take by [facility] (DILANTIN) 9-08 [id number] mouth 3 [facility] 100 MG ER 18:23: 3D (three) Medic al capsule 35 times Center daily. docusate 0 Yes 100mg Q.5D Take [address] sodium 9-08 mg by [facility] (COLACE) 18:23: mouth 2 Medica l 100 MG 35 (two) Center capsule times daily. famotidine 0 Yes 20mg Q.5D Take [address] (PEPCID) 20 9-08 by mouth 2 Fern kes MG tablet 18:23: (two) Medical 35 times Center daily. folic acid Yes 1mg QD Take [address] (FOLVITE) 1 9-08 by mouth Luke s MG tablet 18:23: daily. Medica l 35 Center furosemide 2021-0 Yes 20mg QD Take [address] (LASIX) 20 9-08 by mouth [facility] MG tablet 18:23: daily. Medica l 35 Center hydrOXYzine 2020-0 Yes 25mg Take [address] [facility] (ATARAX) 25 9-08 by mouth 3 Fern kes MG tablet 18:23: (three) Medic al 35 times Center daily as needed for Itching. ipratropium 0 Yes 500ug Q.[id number] Take [address] [facility] (ATROVENT) 9-08 [id number] mcg by L ukes 0.02 % 18:23: 3D nebulizati Medic al nebulizer 35 on 3 Center solution (three) times daily. magnesium 2020-0 Yes 400mg Q.5D Take [address] [facility] oxide 9-08 mg by [facility] (MAG-OX) 18:23: mouth 2 Medica l 400 mg 35 (two) Center (241.3 mg times magnesium) daily. tablet megestroL 0 Yes 400mg QD Take [address] [facility] (MEGACE) 9-08 mg by [facility] 400 mg/10 18:23: mouth Medical mL (40 35 daily. Center mg/mL) suspension polyethylen 0 Yes 17g QD Take [address] e glycol 9-08 by mouth [facility] (GLYCOLAX) 18:23: daily. Medic al 17 gram 35 Center packet gabapentin 0 Yes 100mg Q.[id number] Take [address] [facility] (NEURONTIN) 9-08 [id number] mg by L ukes 100 MG 18:23: 3D mouth 3 Medical capsule 35 (three) Center times daily. potassium 0 Yes 10meq QD Take [address] [facility] chloride 9-08 mEq by [facility] (KLOR-CON) 18:23: mouth Medica l 10 MEQ CR 35 daily. Center tablet levothyroxi 0 Yes 150ug Take [address] ne 9-08 mcg by [facility] (SYNTHROID, 18:23: mouth Medic al LEVOTHROID) 35 Every Center 150 MCG morning on tablet an empty stomach. traZODone 0 Yes 100mg QD Take [address] [facility] (DESYREL) 9-08 mg by [facility] 100 MG 18:23: mouth Medical tablet 35 nightly. Center valproic 2021-0 Yes 1000mg Q.5D Take 1,[address] acid, as 9-08 mg by [facility] sodium 18:23: mouth 2 Medical salt, 35 (two) Center (DEPAKENE) times 250 mg/5 mL daily. (5 mL) solution acetaminoph Yes 1{tbl} Take [address] en-codeine 9-08 tablet by Joss s (TYLENOL 18:23: mouth Medical #3) 300-30 35 every 6 Center mg per (six) tablet hours as needed. donepeziL 0 Yes 10mg QD Take [address] (ARICEPT) 9-08 by mouth [facility] 10 MG 18:23: nightly. Medical tablet 35 Center Missing or Yes Aspercreme [facility] Non-Formula 04-02 (lidocaine Fern kes ry 18:23: 4%) patch Medical Medication 35 BID . Center calcium Yes 1{tbl} QD Take [address] [facility] carbonate-v 9-08 tablet by Rafael es itamin D3 18:23: mouth Medical (calcium-vi 35 daily. Center tamin D) 500 mg(1,250mg) -200 unit per tablet phenytoin 0 Yes Q.[id number] Take by [facility] (DILANTIN) 9-08 [id number] mouth 3 [facility] 100 MG ER 18:23: 3D (three) Medic al capsule 35 times Center daily. docusate 0 Yes 100mg Q.5D Take [address] [facility] sodium 9-08 mg by [facility] (COLACE) 18:23: mouth 2 Medica l 100 MG 35 (two) Center capsule times daily. famotidine 0 Yes 20mg Q.5D Take [address] (PEPCID) 20 9-08 by mouth 2 Fern kes MG tablet 18:23: (two) Medical 35 times Center daily. folic acid 0 Yes 1mg QD Take [address] [facility] (FOLVITE) 1 9-08 by mouth Luke s MG tablet 18:23: daily. Medica l 35 Center furosemide 0 Yes 20mg QD Take [address] (LASIX) 20 9-08 by mouth [facility] MG tablet 18:23: daily. Medica l 35 Center hydrOXYzine 0 Yes 25mg Take [address] [facility] (ATARAX) 25 9-08 by mouth 3 Fern kes MG tablet 18:23: (three) Medic al 35 times Center daily as needed for Itching. ipratropium 0 Yes 500ug Q.[id number] Take [address] [facility] [address] (ATROVENT) 9-08 [id number] mcg by L ukes 0.02 % 18:23: 3D nebulizati Medic al nebulizer 35 on 3 Center solution (three) times daily. magnesium 2020-0 Yes 400mg Q.5D Take [address] [facility] [address] oxide 9-08 mg by [facility] (MAG-OX) 18:23: mouth 2 Medica l 400 mg 35 (two) Center (241.3 mg times magnesium) daily. tablet megestroL 0 Yes 400mg QD Take [address] [facility] (MEGACE) 9-08 mg by [facility] 400 mg/10 18:23: mouth Medical mL (40 35 daily. Center mg/mL) suspension polyethylen 0 Yes 17g QD Take [address] e glycol 9-08 by mouth [facility] (GLYCOLAX) 18:23: daily. Medic al 17 gram 35 Center packet gabapentin 0 Yes 100mg Q.[id number] Take [address] [facility] (NEURONTIN) 9-08 [id number] mg by L ukes 100 MG 18:23: 3D mouth 3 Medical capsule 35 (three) Center times daily. potassium 0 Yes 10meq QD Take [address] [facility] chloride 9-08 mEq by [facility] (KLOR-CON) 18:23: mouth Medica l 10 MEQ CR 35 daily. Center tablet levothyroxi 0 Yes 150ug Take [address] ne 9-08 mcg by [facility] (SYNTHROID, 18:23: mouth Medic al LEVOTHROID) 35 Every Center 150 MCG morning on tablet an empty stomach. traZODone 0 Yes 100mg QD Take [address] [facility] (DESYREL) 9-08 mg by [facility] 100 MG 18:23: mouth Medical tablet 35 nightly. Center valproic 2020-0 Yes 1000mg Q.5D Take 1,[address] acid, as 9-08 mg by [facility] sodium 18:23: mouth 2 Medical salt, 35 (two) Center (DEPAKENE) times 250 mg/5 mL daily. (5 mL) solution famotidine 1-0 2020- No 20mg Take [address] [facility] (PEPCID) 20 04-02 tablet (20 L ukes MG tablet 00:00: 23:59 mg total) Me dical 00 :00 by mouth Center every 12 (twelve) hours for 30 days. cholecalcif 2020-0 2021- No 2000U QD Take [address] byron, 04-02 tablet [facility] vitamin D3, 00:00: 23:59 (2,000 Med ical 2,000 unit 00 :00 Units Center Tab total) by mouth daily for 30 days. famotidine 2020-0 2021- No 20mg Take [address] [facility] (PEPCID) 20 04-02 tablet (20 L ukes MG tablet 00:00: 23:59 mg total) Me dical 00 :00 by mouth Center every 12 (twelve) hours for 30 days. cholecalcif 2020-0 2021- No 2000U QD Take [address] byron, 04-02 tablet [facility] vitamin D3, 00:00: 23:59 (2,000 Med ical 2,000 unit 00 :00 Units Center Tab total) by mouth daily for 30 days. famotidine 2020-0 1- No 20mg Take [address] [facility] (PEPCID) 20 04-02 tablet (20 L ukes MG tablet 00:00: 23:59 mg total) Me dical 00 :00 by mouth Center every 12 (twelve) hours for 30 days. cholecalcif 2020-0 2021- No 2000U QD Take [address] byron, 04-02 tablet [facility] vitamin D3, 00:00: 23:59 (2,000 Med ical 2,000 unit 00 :00 Units Center Tab total) by mouth daily for 30 days. famotidine 1-0 2021- No 20mg Take [address] [facility] (PEPCID) 20 04-02 tablet (20 L ukes MG tablet 00:00: 23:59 mg total) Me dical 00 :00 by mouth Center every 12 (twelve) hours for 30 days. cholecalcif 2020-0 2021- No 2000U QD Take [address] [place], 04-02 tablet [facility] vitamin D3, 00:00: 23:59 (2,000 Med ical 2,000 unit 00 :00 Units Center Tab total) by mouth daily for 30 days. famotidine 2020- No 20mg Take [address] [facility] (PEPCID) 20 04-02 tablet (20 L ukes MG tablet 00:00: 23:59 mg total) Me dical 00 :00 by mouth Center every 12 (twelve) hours for 30 days. cholecalcif 2020- No 2000U QD Take [address] [place], 04-02 tablet [facility] vitamin D3, 00:00: 23:59 (2,000 Med ical 2,000 unit 00 :00 Units Center Tab total) by mouth daily for 30 days. famotidine 2020- No 20mg Take [address] [facility] (PEPCID) 20 04-02 tablet (20 L ukes MG tablet 00:00: 23:59 mg total) Me dical 00 :00 by mouth Center every 12 (twelve) hours for 30 days. cholecalcif 2020- No 2000U QD Take [address] [place], 04-02 tablet [facility] vitamin D3, 00:00: 23:59 (2,000 Med ical 2,000 unit 00 :00 Units Center Tab total) by mouth daily for 30 days. ciprofloxac 2020- No 500mg Q.5D Take [address] in HCl 04-02 tablet [facility] (CIPRO) 500 00:00: 23:59 (500 mg Me dical MG tablet 00 :00 total) by Cente r mouth 2 (two) times daily for 14 days. mINOCYCLine 2020- No 100mg Q.5D Take [address] (MINOCIN,DY 04-02 capsule Luke s NACIN) 100 00:00: 23:59 (100 mg Med ical MG capsule 00 :00 total) by Cent er mouth 2 (two) times daily for 14 days. ciprofloxac 2020- No 500mg Q.5D Take [address] in HCl 04-02 tablet [facility] (CIPRO) 500 00:00: 23:59 (500 mg Me dical MG tablet 00 :00 total) by Cente r mouth 2 (two) times daily for 14 days. mINOCYCLine 2020-0 2020- No 100mg Q.5D Take [address] (MINOCIN,DY 04-02 capsule Luke s NACIN) 100 00:00: 23:59 (100 mg Med ical MG capsule 00 :00 total) by Cent er mouth 2 (two) times daily for 14 days. ciprofloxac 2020-0 2020- No 500mg Q.5D Take [address] in HCl 04-02 tablet [facility] (CIPRO) 500 00:00: 23:59 (500 mg Me dical MG tablet 00 :00 total) by Cente r mouth 2 (two) times daily for 14 days. mINOCYCLine 2020-0 2020- No 100mg Q.5D Take [address] (MINOCIN,DY 04-02 capsule Luke s NACIN) 100 00:00: 23:59 (100 mg Med ical MG capsule 00 :00 total) by Cent er mouth 2 (two) times daily for 14 days. ciprofloxac 2020-0 2020- No 500mg Q.5D Take [address] in HCl 04-02 tablet [facility] (CIPRO) 500 00:00: 23:59 (500 mg Me dical MG tablet 00 :00 total) by Cente r mouth 2 (two) times daily for 14 days. mINOCYCLine 2020-0 2020- No 100mg Q.5D Take [address] (MINOCIN,DY 04-02 capsule Luke s NACIN) 100 00:00: 23:59 (100 mg Med ical MG capsule 00 :00 total) by Cent er mouth 2 (two) times daily for 14 days. ciprofloxac 2020-0 2020- No 500mg Q.5D Take [address] in HCl 04-02 tablet [facility] (CIPRO) 500 00:00: 23:59 (500 mg Me dical MG tablet 00 :00 total) by Cente r mouth 2 (two) times daily for 14 days. mINOCYCLine 2020-0 2021- No 100mg Q.5D Take [address] (MINOCIN,DY 04-02 capsule Luke s NACIN) 100 00:00: 23:59 (100 mg Med ical MG capsule 00 :00 total) by Cent er mouth 2 (two) times daily for 14 days. ciprofloxac 2020- No 500mg Q.5D Take [address] in HCl 04-02 tablet [facility] (CIPRO) 500 00:00: 23:59 (500 mg Me dical MG tablet 00 :00 total) by Cente r mouth 2 (two) times daily for 14 days. mINOCYCLine 2020- No 100mg Q.5D Take [address] (MINOCIN,DY 04-02 capsule Luke s NACIN) 100 00:00: 23:59 (100 mg Med ical MG capsule 00 :00 total) by Cent er mouth 2 (two) times daily for 14 days. dexAMETHaso 2020- No 6mg QD Take [address] [facility] ne 04-02 tablet (6 [facility] (DECADRON) 00:00: 23:59 mg total) M edical 6 MG tablet 00 :00 by mouth Cent er daily for 5 days. dexAMETHaso 2020-2020- No 6mg QD Take [address] [facility] ne 04-02 tablet (6 [facility] (DECADRON) 00:00: 23:59 mg total) M edical 6 MG tablet 00 :00 by mouth Cent er daily for 5 days. dexAMETHaso 2020-2020- No 6mg QD Take [address] [facility] ne 04-02 tablet (6 [facility] (DECADRON) 00:00: 23:59 mg total) M edical 6 MG tablet 00 :00 by mouth Cent er daily for 5 days. dexAMETHaso 2020-0 2020- No 6mg QD Take [address] [facility] ne 04-02 tablet (6 [facility] (DECADRON) 00:00: 23:59 mg total) M edical 6 MG tablet 00 :00 by mouth Cent er daily for 5 days. dexAMETHaso 2020-0 2021- No 6mg QD Take [address] [facility] ne 04-02 tablet (6 [facility] (DECADRON) 00:00: 23:59 mg total) M edical 6 MG tablet 00 :00 by mouth Cent er daily for 5 days. dexAMETHaso No 6mg QD Take [address] [facility] ne 04-02 09-13 tablet (6 [facility] (DECADRON) 00:00: 23:59 mg total) M edical 6 MG tablet 00 :00 by mouth Cent er daily for 5 days. apixaban Yes TWICE [facility] (ELIQUIS) 5-23 DAILY [facility] 2.5 mg Tab 00:00: Medical tablet 00 [place] apixaban Yes TWICE [facility] (ELIQUIS) 5-23 DAILY [facility] 2.5 mg Tab 00:00: Medical tablet 00 [place] apixaban Yes TWICE [facility] (ELIQUIS) 5-23 DAILY [facility] 2.5 mg Tab 00:00: Medical tablet 00 [place] apixaban Yes TWICE [facility] (ELIQUIS) 5-23 DAILY [facility] 2.5 mg Tab 00:00: Medical tablet 00 [place] apixaban Yes TWICE [facility] (ELIQUIS) 5-23 DAILY [facility] 2.5 mg Tab 00:00: Medical tablet 00 [place] apixaban Yes TWICE [facility] (ELIQUIS) 5-23 DAILY [facility] 2.5 mg Tab 00:00: Medical tablet 00 [place] amLODIPine Yes DAILY [facility] (NORVASC) 5-04 [facility] 2.5 MG 00:00: Medical tablet 00 [place] amLODIPine Yes DAILY [facility] (NORVASC) 5-04 [facility] 2.5 MG 00:00: Medical tablet 00 [place] amLODIPine Yes DAILY [facility] (NORVASC) 5-04 [facility] 2.5 MG 00:00: Medical tablet 00 [place] amLODIPine Yes DAILY [facility] (NORVASC) 5-04 [facility] 2.5 MG 00:00: Medical tablet 00 [place] amLODIPine Yes DAILY [facility] (NORVASC) 5-04 [facility] 2.5 MG 00:00: Medical tablet 00 [place] amLODIPine Yes DAILY [facility] (NORVASC) 5-04 [facility] 2.5 MG 00:00: Medical tablet 00 [place] Donepezil 2018-1 Yes 10 mg = 1 Mem oria hydrochlori 0-11 tab, PO, l de 10 MG 16:23: Bedtime, # Her andre Oral Tablet 00 30 tab, 0 [Aricept] Refill(s) Aspirin 81 2017-07 Yes 81 mg = 1 Me moria MG Enteric 0-11 tab, PO, l Coated 16:23: Daily, # [place] Tablet 00 90 tab, 3 Refill(s) Actonel 35 2017-07 Yes 35 mg = 1 Me moria mg oral 0-11 tab, PO, l tablet 16:23: qWeek, # 4 [place] nn 00 tab, 0 Refill(s) Acetaminoph 2017-07 Yes 1 tab, PO, Memoria en 325 MG / 0-11 Q8H, PRN l Hydrocodone 16:23: Pain, # 60 [place] Bitartrate 00 tab, 0 5 MG Oral Refill(s) Tablet [[place] 5/325] Seroquel 2017-07 Yes See Memoria 0-11 Instructio l 16:23: ns, 1/2 of [place] 00 75 mg tab PO QHS, 0 Refill(s) metoprolol 2017-07 Yes 50 mg = 1 Me moria tartrate 50 0-11 tab, PO, l mg oral 16:23: BID, # 180 Herm cassy tablet 00 tab, 0 Refill(s) Amlodipine 2017-07 Yes 2.5 mg = 1 M emoria 2.5 MG Oral 0-11 tab, PO, l Tablet 16:23: BID, 0 [place] [Norvasc] 00 Refill(s) Trazodone 2017-07 Yes 25 mg, PO, Me moria 0-11 Bedtime, 0 l 16:23: Refill(s) [place] 00 gabapentin 2017-07 Yes 100 mg = [...] kg Systolic blood 2021-04-02 15:00:00 128 mm[Hg] [facility] Diastolic blood 2021-04-02 15:00:00 72 mm[Hg] [facility] Heart rate 2021-04-02 15:00:00 63 /min [facility] Body temperature 2021-04-02 15:00:00 35.94 Blaire [facility] Respiratory rate 2021-04-02 15:00:00 20 /min [facility] Oxygen saturation in 2021-04-02 15:00:00 95 /min [facility] Arterial blood by Medical Ce nter Pulse oximetry Body weight 2021-03-31 04:00:00 87.8 kg [facility] BMI 2021-03-31 04:00:00 30.32 kg/m2 [facility] Body height 2021-03-28 21:00:00 170.2 cm [facility] Height 2018-05-05 16:11:00 167.64 cm Keyana Foster Weight 2018-05-05 16:11:00 Keyana Foster BMI Calculated 2018-05-05 16:11:00 Terry marley [place] Systolic (mm Hg) 2018-05-05 16:11:00 Clive choudhury Cristian Diastolic (mm Hg) 2018-05-05 16:11:00 Mem paola Cristian Respitory Rate 2018-05-05 16:11:00 Memalis al [place] Heart Rate 2018-05-05 16:11:00 [facility] Procedures Procedure Date / Time Performed Performing Clinician Sourc e D-DIMER 2021-04-02 13:51:00 Nelli [facility] LACTATE DEHYDROGENASE 2021-04-02 13:50:00 Nelli [facility] ([facility]) [facility] FERRITIN 2021-04-02 13:50:00 Nelli [facility] CBC W/PLT COUNT & AUTO 2021-04-02 13:50:00 Nelli [facility] C-REACTIVE PROTEIN 2021-04-02 13:50:00 Nelli [facility] PROCALCITONIN 2021-04-02 13:50:00 Nelli [facility] COMPREHENSIVE METABOLIC 2021-04-02 13:50:00 Nelli [facility] PANEL [facility] MAGNESIUM 2021-04-02 13:50:00 Nelli [facility] CBC W/PLT COUNT & AUTO 2021-04-02 13:50:00 Nelli [facility] DIFFERENTIAL [facility] POCT-GLUCOSE METER 2021-04-02 01:52:00 Renata Diggs [facility] POCT-GLUCOSE METER 2021-04-01 20:51:00 Tessie Diggskha Manav [facility] POCT-GLUCOSE METER 2021-04-01 16:51:00 [facility] 2021-04-01 16:50:00 Diane Gallagher Madyson [facility] URINALYSIS W/ REFLEX 2021-04-01 16:50:00 Diane Gall[address] [facility] URINE CULTURE [facility] SARS-COV2/INFLUENZA/RSV 2021-04-01 16:48:00 Renata Diggs Billie s [facility] RT-PCR [facility] BASIC METABOLIC PANEL (7) 2021-04-01 16:47:00 Diane Gallagher Dwight morillo [facility] POCT-GLUCOSE METER 2021-04-01 11:43:00 Caterina Renata Em [facility] VANCOMYCIN LEVEL, TROUGH 2021-04-01 10:34:00 Dakotah Figueredo [facility] POCT-GLUCOSE METER 2021-04-01 05:45:00 Sancho Gregory [facility] BASIC METABOLIC PANEL (7) 2021-04-01 05:26:00 Madison Newsome [facility] CBC W/PLT COUNT & AUTO 2021-04-01 05:26:00 [facility] DIFFERENTIAL [facility] MAGNESIUM 2021-04-01 05:26:[address] [facility] PHOSPHORUS 2021-04-01 05:26:00 [facility] HEPATIC FUNCTION PANEL 2021-04-01 05:26:00 [facility] C-REACTIVE PROTEIN 2021-04-01 05:26:00 [facility] CREATINE KINASE (CK) 2021-04-01 05:26:00 [facility] CALCIUM, IONIZED 2021-04-01 [facility] AUTO 2021-04-01 05:26:00 Sersohpia [facility] DIFFERENTIAL [facility] POCT-GLUCOSE METER 2021-03-31 23:22:00 Sancho Gregory [facility] POCT-GLUCOSE METER 2021-03-31 15:28:00 Sancho Gregory [facility] CBC W/PLT COUNT & AUTO 2021-03-31 12:50:00 SerBerny moise [facility] t Lujose DIFFERENTIAL [facility] MAGNESIUM 2021-03-31 12:50:[address] [facility] PHOSPHORUS 2021-03-31 12:50:[address] [facility] HEPATIC FUNCTION PANEL 2021-03-31 12:50:[address] [facility] COMPREHENSIVE METABOLIC 2021-03-31 12:50:00 Lan Peraza [facility] VANCOMYCIN LEVEL, RANDOM 2021-03-31 12:50:00 Joanna Jolly [facility] CBC W/PLT COUNT & AUTO 2021-03-31 12:50:00 Sersuma [facility] DIFFERENTIAL [facility] CALCIUM, IONIZED 2021-03-31 12:49:[address] [facility] POCT-GLUCOSE METER 2021-03-31 12:08:00 Sancho Gregory [facility] POCT-GLUCOSE METER 2021-03-31 09:59:00 Sancho Gregory [facility] BASIC METABOLIC PANEL (7) 2021-03-31 00:07:00 Madison Newsome [facility] XR ABDOMEN / KUB 1 VIEW 2021-03-30 21:31:00 Bola Naylor [facility] POCT-GLUCOSE METER 2021-03-30 21:31:00 Sancho Gregory [facility] POCT-GLUCOSE METER 2021-03-30 17:26:00 Sancho Gregory [facility] XR ABDOMEN / KUB 1 VIEW 2021-03-30 17:03:00 Madison Newsome [facility] BASIC METABOLIC PANEL (7) 2021-03-30 16:42:00 Madison Newsome [facility] POCT-GLUCOSE METER 2021-03-30 12:50:00 Sancho Gregory [facility] US RENAL COMPLETE 2021-03-30 11:26:00 Lan Peraza [facility] 2D ECHO W/ DOPPLER 2021-03-30 10:31:37 Jd [facility] (CW/PW/COLOR) [facility] BASIC METABOLIC PANEL (7) 2021-03-30 09:53:00 David Reeves [facility] POCT-GLUCOSE METER 2021-03-30 05:02:00 [facility] BASIC METABOLIC PANEL (7) 2021-03-30 04:12:00 David Reeves [facility] CBC W/PLT COUNT & AUTO 2021-03-30 04:12:00 [facility] DIFFERENTIAL [facility] MAGNESIUM 2021-03-30 04:12:[address] [facility] PHOSPHORUS 2021-03-30 04:12:[facility] 2021-03-30 04:12[facility]IN 2021-03-30 04:12:00 [facility] CREATINE KINASE (CK) 2021-03-30 04:12:00 Lan Peraza [facility] CALCIUM, IONIZED 2021-03-30 04:12:00 [facility] W/PLT COUNT & AUTO 2021-03-30 04:12:00 [facility] DIFFERENTIAL [facility] POCT-GLUCOSE METER 2021-03-29 23:40:00 [facility] OSMOLALITY, URINE 2021-03-29 21:49:00 Tye [facility] OSMOLALITY, SERUM 2021-03-29 21:49:00 Tye [facility] SODIUM, RANDOM URINE 2021-03-29 21:49:00 Tye [facility] CREATININE, RANDOM URINE 2021-03-29 21:49:00 Tye [facility] BASIC METABOLIC PANEL (7) 2021-03-29 21:49:00 David Reeves CH, I [facility] SODIUM, RANDOM URINE 2021-03-29 17:25:00 [facility] PROTEIN, RANDOM URINE 2021-03-29 17:25:00 [facility] CREATININE, RANDOM URINE 2021-03-29 17:25:00 [facility] OSMOLALITY, URINE 2021-03-29 17:25:00 [facility] POCT-GLUCOSE METER 2021-03-29 17:21:00 [facility] BASIC METABOLIC PANEL (7) 2021-03-29 16:26:00 David Reeves CH, I [facility] VALPROIC ACID LEVEL, 2021-03-29 16:26:00 Jd Jefferson [facility] PHENYTOIN LEVEL, TOTAL 2021-03-29 16:26:00 Jd Jefferson [facility] BASIC METABOLIC PANEL (7) 2021-03-29 12:51:00 David Reeves CH, I [facility] POCT-GLUCOSE METER 2021-03-29 12:38:00 [facility] BASIC METABOLIC PANEL (7) 2021-03-29 09:08:00 David Reeves CH, I [facility] VANCOMYCIN LEVEL, RANDOM 2021-03-29 09:08:00 Joanna Jolly [facility] B-TYPE NATRIURETIC FACTOR 2021-03-29 09:08:00 Jd [facility] (BNP) [facility] BASIC METABOLIC PANEL (7) 2021-03-29 05:51:00 David Reeves CH [facility] TSH/FREE T4 IF INDICATED 2021-03-29 05:05:[address] [facility] CBC W/PLT COUNT & AUTO 2021-03-29 05:05:[facility] DIFFERENTIAL [facility] (CELLAVISION MANUAL DIFF) 2021-03-29 05:05:00 [facility] CBC W/PLT COUNT & AUTO 2021-03-29 05:05:00 [facility] DIFFERENTIAL [facility] URINE CULTURE 2021-03-29 02:53:[address] [facility] URINALYSIS W/ REFLEX 2021-03-29 02:53:00 [facility] URINE CULTURE [facility] BLOOD CULTURE 2021-03-29 02:52:[address] [facility] ECG 12-LEAD 2021-03-29 00:28:39 Unknown, H[facility] ECG 12-LEAD 2021-03-29 00:28:39 Unknown, H[facility] BLOOD GAS, ARTERIAL 2021-03-28 23:03:00 [facility] CBC (HEMOGRAM ONLY) 2021-03-28 23:02:00 [facility] ED PT/APTT 2021-03-28 23:02:00 [facility] D-DIMER 2021-03-28 23:02:00 [facility] LACTIC ACID, VENOUS 2021-03-28 23:02:00 Kasey [facility] L sujatha [facility] CALCIUM, IONIZED 2021-03-28 23:02:00 Kasey [facility] s [facility] COMPREHENSIVE METABOLIC 2021-03-28 22:29:00 Kasey [facility] PANEL [facility] C-REACTIVE PROTEIN 2021-03-28 22:29:00 Kasey [facility] Fern s [facility] MAGNESIUM 2021-03-28 22:29:[address] [facility] PHOSPHORUS 2021-03-28 22:29:00 [facility] CREATINE KINASE (CK) 2021-03-28 22:29:00 [facility] XR ABDOMEN / KUB 1 VIEW 2021-03-28 22:07:00 [facility] XR CHEST 1 VIEW PORTABLE 2021-03-28 21:59:00 [facility] / BEDSIDE [facility] Plan of Care Planned Activity Planned Date Details Comments Source Future Scheduled 2021-07-[address] [facility] Test 00:00:00 (12+) [code = [facility] DEPRESSION SCREENING (12+)] Future Scheduled 2021-07-26 FALLS RISK SCREENING [facility] Test 00:00:00 [code = FALLS RISK Medical C enter SCREENING] Future Scheduled 2021-07-[address] [facility] Test 00:00:00 (12+) [code = [facility] DEPRESSION SCREENING (12+)] Future Scheduled 2021-07-26 FALLS RISK SCREENING [facility] Test 00:00:00 [code = FALLS RISK Medical C enter SCREENING] Future Scheduled 2021-03-26 INFLUENZA VACCINE (#1) [facility] 00:00:00 [code = INFLUENZA Medical Ce nter VACCINE (#1)] Future Scheduled 2021-03-26 INFLUENZA VACCINE (#1) [facility] 00:00:00 [code = INFLUENZA Medical Ce nter VACCINE (#1)] Future Scheduled 2021-03-26 INFLUENZA VACCINE (#1) [facility] 00:00:00 [code = INFLUENZA Medical Ce nter VACCINE (#1)] Future Scheduled 2021-03-26 INFLUENZA VACCINE (#1) [facility] 00:00:00 [code = INFLUENZA Medical Ce [facility]ter VACCINE (#1)] Future Scheduled 2021-03-26 INFLUENZA VACCINE (#1) [facility]00 [code = INFLUENZA Medical Ce nter VACCINE (#1)] Future Scheduled 2021-03-26 INFLUENZA VACCINE (#1) [facility]00 [code = INFLUENZA Medical Ce nter VACCINE (#1)] Future Scheduled 2020-07-[address] [facility] 00:00:00 (12+) [code = Medical Center DEPRESSION SCREENING (12+)] Future Scheduled 2020-07-[address] [facility] 00:00:00 (12+) [code = Medical Center DEPRESSION SCREENING (12+)] Future Scheduled 2020-07-[address] [facility] 00:00:00 (12+) [code = Medical Center DEPRESSION SCREENING (12+)] Future Scheduled 2020-07-[address] [facility] 00:00:00 (12+) [code = Medical Center DEPRESSION SCREENING (12+)] Future Scheduled 2008 PNEUMOCOCCAL 65+ YRS [facility] 00:00:00 (1 of 1 [facility] YVXN38_Vsmzgoj PCV13) [code = PNEUMOCOCCAL 65+ YRS (1 of 1 - CWZZ23_Smzxscj PCV13)] Future Scheduled 2008 PNEUMOCOCCAL 65+ YRS [facility] 00:00:00 (1 of 1 [facility] QIWR35_Mwhswiv PCV13) [code = PNEUMOCOCCAL 65+ YRS (1 of 1 - JORF25_Sqbqwiv PCV13)] Future Scheduled 2008 PNEUMOCOCCAL 65+ YRS [facility] 00:00:00 (1 of 1 [facility] NIHX24_Gpiwniu PCV13) [code = PNEUMOCOCCAL 65+ YRS (1 of 1 - JPRU49_Ojsqkff PCV13)] Future Scheduled 2008 PNEUMOCOCCAL 65+ YRS [facility] 00:00:00 (1 of 1 [facility] PTCM11_Hrunhsk PCV13) [code = PNEUMOCOCCAL 65+ YRS (1 of 1 - ANRS13_Fniqyef PCV13)] Future Scheduled 2008 PNEUMOCOCCAL 65+ YRS [facility] 00:00:00 (1 of 1 - Medical Center IRRI55_Bnicxix PCV13) [code = PNEUMOCOCCAL 65+ YRS (1 of 1 - NNDS36_Imeqzkn PCV13)] Future Scheduled 2008 PNEUMOCOCCAL 65+ Y[facility] 00:00:00 (1 of 1 - Medical Center CCTY26_Svujbkl PCV13) [code = PNEUMOCOCCAL 65+ YRS (1 of 1 - GMHF48_Rtzawdx PCV13)] Future Scheduled 2005-03-[address] [facility]:00 WELLNESS (YEAR 2 or Medical Center FIRST YEAR if no IPPE) [code = MEDICARE ANNUAL WELLNESS (YEAR 2 or FIRST YEAR if no IPPE)] Future Scheduled 2005-03-[address] [facility] 00:00:00 WELLNESS (YEAR 2 or Medical Center FIRST YEAR if no IPPE) [code = MEDICARE ANNUAL WELLNESS (YEAR 2 or FIRST YEAR if no IPPE)] Future Scheduled 2005-03-[address] [facility] 00:00:00 WELLNESS (YEAR 2 or Medical Center FIRST YEAR if no IPPE) [code = MEDICARE ANNUAL WELLNESS (YEAR 2 or FIRST YEAR if no IPPE)] Future Scheduled 2005-03-[address] [facility] 00:00:00 WELLNESS (YEAR 2 or Medical Center FIRST YEAR if no IPPE) [code = MEDICARE ANNUAL WELLNESS (YEAR 2 or FIRST YEAR if no IPPE)] Future Scheduled 2005-03-[address] [facility] 00:00:00 WELLNESS (YEAR 2 or Medical Center FIRST YEAR if no IPPE) [code = MEDICARE ANNUAL WELLNESS (YEAR 2 or FIRST YEAR if no IPPE)] Future Scheduled 2005-03-[address] [facility] 00:00:00 WELLNESS (YEAR 2 or Medical Center FIRST YEAR if no IPPE) [code = MEDICARE ANNUAL WELLNESS (YEAR 2 or FIRST YEAR if no IPPE)] Future Scheduled 1993 SHINGLES VACCINES ([address] [facility] 00:00:00 of 2) [code = SHINGLES Medic al Center VACCINES (1 of 2)] Future Scheduled 1993 SHINGLES VACCINES ([address] [facility] 00:00:00 of 2) [code = SHINGLES Medic al Center VACCINES (1 of 2)] Future Scheduled 1993 SHINGLES VACCINES ([address] [facility] 00:00:00 of 2) [code = SHINGLES Medic al Center VACCINES (1 of 2)] Future Scheduled 1993 SHINGLES VACCINES ([address] [facility] 00:00:00 of 2) [code = SHINGLES Medic al Center VACCINES (1 of 2)] Future Scheduled 1993 SHINGLES VACCINES ([address] [facility] 00:00:00 of 2) [code = SHINGLES Medic al Center VACCINES (1 of 2)] Future Scheduled 1993 SHINGLES VACCINES ([address] [facility] 00:00:00 of 2) [code = SHINGLES Medic al Center VACCINES (1 of 2)] Future Scheduled 1962 DTAP/TDAP/TD [facility]ACCINES [facility] 00:00:00 (1 - Tdap) [code = Medical C enter DTAP/TDAP/TD VACCINES (1 - Tdap)] Future Scheduled 1962 DTAP/TDAP/TD [facility]ACCINES [facility] 00:00:00 (1 - Tdap) [code = Medical C enter DTAP/TDAP/TD VACCINES (1 - Tdap)] Future Scheduled 1962 DTAP/TDAP/TD [facility]ACCINES [facility] 00:00:00 (1 - Tdap) [code = Medical C enter DTAP/TDAP/TD VACCINES (1 - Tdap)] Future Scheduled 1962 DTAP/TDAP/TD [facility]ACCINES [facility] 00:00:00 (1 - Tdap) [code = Medical C enter DTAP/TDAP/TD VACCINES (1 - Tdap)] Future Scheduled 1962 DTAP/TDAP/TD [facility]ACCINES [facility] 00:00:00 (1 - Tdap) [code = Medical C enter DTAP/TDAP/TD VACCINES (1 - Tdap)] Future Scheduled 1962 DTAP/TDAP/TD [facility]ACCINES [facility] 00:00:00 (1 - Tdap) [code = Medical C enter DTAP/TDAP/TD VACCINES (1 - Tdap)] Future Scheduled 1961 HEPATITIS C [facility]CRE[facility]ING [facility] 00:00:00 [code = HEPATITIS C Medical Center SCREENING] Future Scheduled 1961 HEPATITIS C [facility] 00:00:00 [code = HEPATITIS C Medical Center SCREENING] Future Scheduled 1961 HEPATITIS C [facility] 00:00:00 [code = HEPATITIS C Medical Center SCREENING] Future Scheduled 1961 HEPATITIS C [facility] 00:00:00 [code = HEPATITIS C Medical Center SCREENING] Future Scheduled 1961 HEPATITIS C [facility] 00:00:00 [code = HEPATITIS C Medical Center SCREENING] Future Scheduled 1961 HEPATITIS C [facility] 00:00:00 [code = HEPATITIS C Medical Center SCREENING] Future Scheduled 1955 COVID-19 VACCINE (1) [facility] 00:00:00 [code = COVID-[address] VACCINE (1)] Future Scheduled 1955 COVID-19 VACCINE (1) [facility] 00:00:00 [code = COVID-[address] VACCINE (1)] Future Scheduled 1955 COVID-19 VACCINE (1) [facility] 00:00:00 [code = COVID-[address] VACCINE (1)] Future Scheduled 1955 COVID-19 VACCINE (1) [facility] 00:00:00 [code = COVID-[address] VACCINE (1)] Future Scheduled 1955 COVID-19 VACCINE (1) [facility] 00:00:00 [code = COVID-[address] VACCINE (1)] Future Scheduled 1955 COVID-19 VACCINE (1) [facility] 00:00:00 [code = COVID-[address] VACCINE (1)] Encounters Start End Encounter Admission Attending Care Care Encounter Source Date/Time Date/Time Type Type Clinicians Facility Department ID 2021-05-04 Inpatient ER [facility], [facility] Pulmonology [id number] [facility] 11:17:29 JESSICA 2022-02-06 2022-02-06 Outpatient GC_BAHC_Tod PRIV PRIV [id number] [facility] 04:11:00 04:11:00 d_J [id number] Medica l 2022-02-03 2022-02-03 Outpatient OZZY_MARBIN LERMA [id number] [place] 12:48:00 12:48:00 _ANN 0712 [facility] 2022-01-30 2022-01-30 Outpatient GC_BAHC_Tod PRIV PRIV 239 [id number] [facility] 11:10:00 11:10:00 d_J [id number] Medica l 2022-01-28 2022-01-28 Outpatient GC_BAHC_Tod PRIV PRIV 239 [id number] [facility] 09:11:00 09:11:00 d_J [id number] Medica l 2022-01-27 2022-01-27 Outpatient GC_BAHC_Tod PRIV PRIV 239 [id number] [facility] 05:09:00 05:09:00 d_J [id number] Medica l 2022-01-27 2022-01-27 Outpatient Daniel, PRIV PRIV [id number] 00:00:00 00:00:00 Sarah [id number] 2022-01-26 2022-01-26 Outpatient GC_BAHC_Tod PRIV PRIV 239 [id number] [facility] 10:52:00 10:52:00 d_J [id number] Medica l 2022-01-23 2022-01-23 Outpatient GC_BAHC_Tod PRIV PRIV 239 [id number] [facility] 05:33:00 05:33:00 d_J [id number] Medica l 2022-01-22 2022-01-22 Outpatient GC_BAHC_Tod PRIV PRIV 239 [id number] [facility] 07:45:00 07:45:00 d_J [id number] Medica l 2022-01-22 2022-01-22 Outpatient Stacy, PRIV PRIV [id number] 00:00:00 00:00:00 Geovanni Yin [id number]-11ec-a [id number] 2021-12-26 2021-12-26 Outpatient GC_BAHC_Tod PRIV PRIV 239 [id number] [facility] 02:08:00 02:08:00 d_J [id number] Medica l 2021-12-26 2021-12-26 Outpatient GC_BAHC_Tod PRIV PRIV 239 [id number] [facility] 02:08:00 02:08:00 d_J [id number] Medica l 2021-12-25 2021-12-25 Outpatient GC_BAHC_Tod PRIV PRIV 239 [id number] [facility] 02:07:00 02:07:00 d_J [id number] Medica l 2021-12-17 2021-12-17 Outpatient GC_BAHC_Tod PRIV PRIV 239 [id number] [facility] 05:21:00 05:21:00 d_J [id number] Medica l 2021-12-17 2021-12-17 Outpatient Daniel, PRIV PRIV [id number] 00:00:00 00:00:00 Sarah [id number] 2021-12-07 2021-12-07 Outpatient GC_BAHC_Tod PRIV PRIV 239 [id number] [facility] 10:44:00 10:44:00 d_J [id number] Medica l 2021-12-04 2021-12-04 Outpatient GC_BAHC_Tod PRIV PRIV 239 [id number] [facility] 03:29:00 03:29:00 d_J [id number] Medica l 2021-11-28 2021-11-28 Outpatient GC_BAHC_Tod PRIV PRIV 239 [id number] [facility] 03:44:00 03:44:00 d_J [id number] Medica l 2021-11-28 2021-11-28 Outpatient Daniel, PRIV PRIV [id number] 00:00:00 00:00:00 Sarah [id number] 2021-11-27 2021-11-27 Outpatient GC_BAHC_Tod PRIV PRIV 239 [id number] [facility] 10:54:00 10:54:00 d_J [id number] Medica l 2021-11-26 2021-11-26 Outpatient GC_BAHC_Tod PRIV PRIV 239 [id number] [facility] 05:21:00 05:21:00 d_J [id number] Medica l 2021-11-23 2021-11-23 Outpatient GC_BAHC_Tod PRIV PRIV 239 [id number] [facility] 10:43:00 10:43:00 d_J [id number] Medica l 2021-11-20 2021-11-20 Outpatient GC_BAHC_Tod PRIV PRIV 239 [id number] [facility] 09:07:00 09:07:00 d_J [id number] Medica l 2021-11-20 2021-11-20 Outpatient Stacy, PRIV PRIV [id number] 00:00:00 00:00:00 Geovanni Humphrey [id number] 2021-11-18 2021-11-18 Outpatient GC_BAHC_Tod PRIV PRIV 239 [id number] [facility] 08:39:00 08:39:00 d_J [id number] Medica l 2021-11-14 2021-11-14 Outpatient GC_BAHC_Tod PRIV PRIV 239 [id number] [facility] 05:11:00 05:11:00 d_J [id number] Medica l 2021-11-14 2021-11-14 Outpatient Daniel, PRIV PRIV [id number] 00:00:00 00:00:00 Sarah [id number] 2021-11-07 2021-11-07 Outpatient GC_BAHC_Tod PRIV PRIV 239 [id number] [facility] 02:12:00 02:12:00 d_J [id number] Medica l 2021-11-06 2021-11-06 Outpatient GC_BAHC_Tod PRIV PRIV 239 [id number] [facility] 06:58:00 06:58:00 d_J [id number] Medica l 2021-11-06 2021-11-06 Outpatient Parole, PRIV PRIV [id number] 00:00:00 00:00:00 October [id number] 2021-11-06 2021-11-06 Outpatient Parole, PRIV PRIV [id number] c-f 00:00:00 00:00:00 October [id number] 2021-11-05 2021-11-05 Outpatient GC_BAHC_Tod PRIV PRIV 239 [id number] [facility] 12:42:00 12:42:00 d_J [id number] Medica l 2021-11-03 2021-11-03 Outpatient GC_BAHC_Spa PRIV PRIV 239 [id number] [facility] 10:13:00 10:13:00 ngler_Nicole [id number] Medica l 2021-03-28 2021-04-02 [facility] Jessica Conner [facility] [id number] [facility] St 20:39:00 18:23:[address] [facility] 2021-03-29 2021-03-29 Orders [facility] [id number] 00:00:00 00:00:00 Only [facility] 2021-03-29 2021-03-29 Travel [facility] [id number] [facility] 00:00:00 00:00:00 [facility] 2020-11-06 2020-11-06 Outpatient KNOW, HCABM OPLA [id number] [facility] 09:21:00 09:21:00 DOES_NOT 16 [facility] 2018-07-15 2018-07-17 Outside nullFlavo MNA [id number] [facility] 16:15:00 05:59:59 Medical r Neurology 00 l Records Kristin Foster 2018-05-05 2018-05-06 Outpatient nullFlavo MNA [id number] [facility] 16:30:00 04:59:59 r Neurology 01 l Kristin Foster Results Test Description Test Time Test Comments Results Result Comments Source Urine culture 2021-04-03 09:42:00 Test Item Value Reference Range Interpretation Comme nts Result (test code = 6463-4) 80-89,000 col/mL Capri tropicalis A Lab Interpretation (test code = 30147-3) [id number] 09:42:00 Test Item Value Reference Range Interpretation Comments Result (test code = 80-89,000 col/mL A 6463-4) Capri tropicalis Lab Interpretation (test Abnormal code = 21869-7) [facility] [id number] 09:42:00 Test Item Value Reference Range Interpretation Comments Result (test code = 80-89,000 col/mL A 6463-4) Capir tropicalis Lab Interpretation (test Abnormal code = 00218-6) [facility]2021-09-09 09:42:00 Test Item Value Reference Range Interpretation Comments Result (test code = 80-89,000 col/mL A 6463-4) [facility]ri tropicalis Lab Interpretation (test Abnormal code = 13572-1) [facility]2021-09-09 09:42:00 Test Item Value Reference Range Interpretation Comments Result (test code = 80-89,000 col/mL A 6463-4) [facility] tropicalis Lab Interpretation (test Abnormal code = 18032-8) [facility] [id number] 09:42:00 Test Item Value Reference Range Interpretation Comments Result (test code = 80-89,000 col/mL A 6463-4) [facility]ri tropicalis Lab Interpretation (test Abnormal code = 80442-0) [facility] Culture - Routine (Left Venipuncture)2021-04-03 04:01:00 Test Item Value Reference Range Interpretation Comments Result (test code = No growth in 5 days 6463-4) [facility] Culture - Routine (Left Venipuncture)2021-04-03 04:01:00 Test Item Value Reference Range Interpretation Comments Result (test code = No growth in 5 days 6463-4) [facility] Culture - Routine (Left Venipuncture)2021-04-03 04:01:00 Test Item Value Reference Range Interpretation Comments Result (test code = No growth in 5 days 6463-4) [facility] Culture - Routine (Left Venipuncture)2021-04-03 04:01:00 Test Item Value Reference Range Interpretation Comments Result (test code = No growth in 5 days 6463-4) [facility]2021-04-03 04:01:00 Test Item Value Reference Range Interpretation Comments Result (test code = No growth in 5 days 6463-4) [facility]2021-04-03 04:01:00 Test Item Value Reference Range Interpretation Comments Result (test code = No growth in 5 days 6463-4) [facility] [id number] 04:01:00 Test Item Value Reference Range Interpretation Comments CULTURE (BEAKER) (test No growth in 5 days code = 1095) BLOOD [id number] 04:01:00 Test Item Value Reference Range Interpretation Comments CULTURE (BEAKER) (test No growth in 5 days code = 1095) [id number] 14:50:00 Test Item Value Reference Range Interpretation Comments Ferritin (test code = 486.66 ng/mL 5-275 H 2276-4) STACY (test code = STACY) Messenger Office ID - PIAYA L Lab Interpretation (test Abnormal code = 95365-4) [facility] 14:50:00 Test Item Value Reference Range Interpretation Comments Ferritin (test code = 486.66 ng/mL 5.00-275.00 H 2276-4) STACY (test code = STACY) Messenger Office ID - PIAYA L Lab Interpretation (test Abnormal code = 23190-6) [facility] 14:50:00 Test Item Value Reference Range Interpretation Comments Ferritin (test code = 486.66 ng/mL 5.00-275.00 H 2276-4) STACY (test code = STACY) Messenger Office ID - PIAYA L Lab Interpretation (test Abnormal code = 22600-4) [facility] 14:50:00 Test Item Value Reference Range Interpretation Comments Ferritin (test code = 486.66 ng/mL 5.00-275.00 H 2276-4) STACY (test code = STACY) Messenger Office ID - PIAYA L Lab Interpretation (test Abnormal code = 66795-1) [facility] 14:50:00 Test Item Value Reference Range Interpretation Comments Ferritin (test code = 486.66 ng/mL 5.00-275.00 H 2276-4) STACY (test code = STACY) Messenger Office ID - MERT L Lab Interpretation (test Abnormal code = 13707-1) [facility] 14:50:00 Test Item Value Reference Range Interpretation Comments Ferritin (test code = 486.66 ng/mL 5.00-275.00 H 2276-4) STACY (test code = STACY) Messenger Office ID - MERT L Lab Interpretation (test Abnormal code = 09917-9) [facility] 14:50:00 Test Item Value Reference Range Interpretation Comments FERRITIN (BEAKER) (test code = 486.66 ng/mL 5.00-275.00 H 361) Messenger Office ID - MERT [id number] 14:43:00 Test Item Value Reference Range Interpretation Comments Procalcitonin (test <0.05 See_Comment [Automa saulo code = 32203-1) message] The system which generated this result transmit saulo reference range : <0.05 ng/mL. Th e reference range was not used to interpret this result as normal/abnormal . STACY (test code = STACY) SEPSIS RISK (ng/mL)Low: 0.05-0.50Inter mediate: 0.51-2.00High: >=2.01 Lab Interpretation Normal (test code = 22251-4) [facility] CenterWfbmwtApbtnmnehlljf5056-15-97 14:43:00 Test Item Value Reference Range Interpretation Comments Procalcitonin (test <0.05 See_Comment [Automa saulo code = 75696-5) message] The system which generated this result transmit saulo reference range : <0.05 ng/mL. Th e reference range was not used to interpret this result as normal/abnormal . STACY (test code = STACY) SEPSIS RISK (ng/mL)Low: 0.05-0.50Inter mediate: 0.51-2.00High: >=2.01 Lab Interpretation Normal (test code = 77464-4) [facility] CenterRxwhunMqlsxxfpxzszt9755-37-35 14:43:00 Test Item Value Reference Range Interpretation Comments Procalcitonin (test <0.05 See_Comment [Automa saulo code = 44380-7) message] The system which generated this result transmit saulo reference range : <0.05 ng/mL. Th e reference range was not used to interpret this result as normal/abnormal . STACY (test code = STACY) SEPSIS RISK (ng/mL)Low: 0.05-0.50Inter mediate: 0.51-2.00High: >=2.01 Lab Interpretation Normal (test code = 29518-2) [facility] CenterCweppnTxsmsuqayojvw5559-11-72 14:43:00 Test Item Value Reference Range Interpretation Comments Procalcitonin (test <0.05 See_Comment [Automa saulo code = 78036-3) message] The system which generated this result transmit saulo reference range : <0.05 ng/mL. Th e reference range was not used to interpret this result as normal/abnormal . STACY (test code = STACY) SEPSIS RISK (ng/mL)Low: 0.05-0.50Inter mediate: 0.51-2.00High: >=2.01 Lab Interpretation Normal (test code = 57194-1) [facility] CenterVeautrJfptsshgtpvea4857-39-39 14:43:00 Test Item Value Reference Range Interpretation Comments Procalcitonin (test <0.05 See_Comment [Automa saulo code = 59772-9) message] The system which generated this result transmit saulo reference range : <0.05 ng/mL. Th e reference range was not used to interpret this result as normal/abnormal . STACY (test code = STACY) SEPSIS RISK (ng/mL)Low: 0.05-0.50Inter mediate: 0.51-2.00High: >=2.01 Lab Interpretation Normal (test code = 54068-4) [facility] CenterFhezvhYjtdbqmpqisyk5571-79-83 14:43:00 Test Item Value Reference Range Interpretation Comments Procalcitonin (test <0.05 See_Comment [Automa saulo code = 76154-1) message] The system which generated this result transmit saulo reference range : <0.05 ng/mL. Th e reference range was not used to interpret this result as normal/abnormal . STACY (test code = STACY) SEPSIS RISK (ng/mL)Low: 0.05-0.50Inter mediate: 0.51-2.00High: >=2.01 Lab Interpretation Normal (test code = 88946-1) [facility] Cen[id number] 14:43:00 Test Item Value Reference Range Interpretation Comments PROCALCITONIN (BEAKER) (test code = < ng/mL <0.05 3036) SEPSIS RISK (ng/mL)Low: 0.05-0.50Intermediate: 0.51-2.00High: >=2.01Comprehensive metabolic [id number] 14:39:00 Test Item Value Reference Range Interpretation [...] 2.0 g/dL 3.5-5 L Specime n slightly 35836-7) hemolyzed Alkaline Phosphatase 65 U/L 40-150 (test code = 6768-6) Total Bilirubin (test 0.4 mg/dL 0.2-1.2 Specim en slightly code = 1975-2) hemolyzed Sodium (test code = 141 meq/L 487-591 1720-2) Potassium (test code 3.3 meq/L 3.5-5.1 L [...] (test code = 7.2 mg/dL 8.4-10.2 L 89659-6) AST (test code = 38 U/L 5-34 H Specimen sl ightly 1920-8) hemolyzed ALT (test code = 31 U/L 6-55 Specimen sl ightly 1742-6) hemolyzed EGFR (test code = 95 mL/min/1.73 [place] [address]-7) NOT ACCURATE CREATININE CLEARANCE IN PREDICTING GLOMERULAR FILTRATION RATE . ESTIMATED GFR I S NOT APPLICABLE FOR DIALYSIS PATIEN TS. KUMAR (test code = STACY) Messenger Office ID - PIAYA L Lab Interpretation Abnormal (test code = 07144-8) [facility] CenterLact[facility] dehydrogenase (LDH)2021-04-02 14:39:00 Test Item Value Reference Range Interpretation Comments LDH (test code = 390 U/L 125-220 H Specimen 2532-0) slightly hemolyzed STACY (test code = STACY) Messenger Office ID - PIAYA L Lab Interpretation Abnormal (test code = 63743-2) [facility] CenterCom[facility] [id number] 14:39:00 Test Item Value Reference Range Interpretation [...] 2.0 g/dL 3.5-5.0 L Specime n slightly 43022-8) hemolyzed Alkaline Phosphatase 65 U/L 40-150 (test code = 6768-6) Total Bilirubin (test 0.4 mg/dL 0.2-1.2 Specim en slightly code = 1975-2) hemolyzed Sodium (test code = 141 meq/L 486-491 7605-2) Potassium (test code 3.3 meq/L 3.5-5.1 L [...] (test code = 7.2 mg/dL 8.4-10.2 L 87082-1) AST (test code = 38 U/L 5-34 H Specimen sl ightly 1920-8) hemolyzed ALT (test code = 31 U/L 6-55 Specimen sl ightly 1742-6) hemolyzed EGFR (test code = 95 mL/min/1.73 [place] [address]-9) NOT ACCURATE CREATININE CLEARANCE IN PREDICTING GLOMERULAR FILTRATION RATE . ESTIMATED GFR I S NOT APPLICABLE FOR DIALYSIS PATIEN TS. STACY (test code = STACY) Messenger Office ID - PIAYA L Lab Interpretation Abnormal (test code = 40137-9) [facility] Center[facility] (LDH)2021-04-02 14:39:00 Test Item Value Reference Range Interpretation Comments LDH (test code = 390 U/L 125-220 H Specimen 2532-0) slightly hemolyzed STACY (test code = STACY) Messenger Office ID - PIAYA L Lab Interpretation Abnormal (test code = 96532-5) [facility] [id number] 14:39:00 Test Item Value Reference Range Interpretation [...] 2.0 g/dL 3.5-5.0 L Specime n slightly 12093-6) hemolyzed Alkaline Phosphatase 65 U/L 40-150 (test code = 6768-6) Total Bilirubin (test 0.4 mg/dL 0.2-1.2 Specim en slightly code = 1974-2) hemolyzed Sodium (test code = 141 meq/L 834-467 6113-2) Potassium (test code 3.3 meq/L 3.5-5.1 L [...] (test code = 7.2 mg/dL 8.4-10.2 L 46012-7) AST (test code = 38 U/L 5-34 H Specimen sl ightly 1920-8) hemolyzed ALT (test code = 31 U/L 6-55 Specimen sl ightly 1742-6) hemolyzed EGFR (test code = 95 mL/min/1.73 [place] [address]-3) NOT ACCURATE CREATININE CLEARANCE IN PREDICTING GLOMERULAR FILTRATION RATE . ESTIMATED GFR I S NOT APPLICABLE FOR DIALYSIS PATIEN TS. STACY (test code = STACY) Messenger Office ID - PIAYA L Lab Interpretation Abnormal (test code = 93403-5) [facility] CenterL[facility] (LDH)2021-04-02 14:39:00 Test Item Value Reference Range Interpretation Comments LDH (test code = 390 U/L 125-220 H Specimen 2532-0) slightly hemolyzed STACY (test code = STACY) [facility] ID - PIAYA L Lab Interpretation Abnormal (test code = 95672-4) [facility] [id number] 14:39:00 Test Item Value Reference Range Interpretation [...] 2.0 g/dL 3.5-5.0 L Specime n slightly 97860-8) hemolyzed Alkaline Phosphatase 65 U/L 40-150 (test code = 6768-6) Total Bilirubin (test 0.4 mg/dL 0.2-1.2 Specim en slightly code = 1974-2) hemolyzed Sodium (test code = 141 meq/L 705-005 2570-2) Potassium (test code 3.3 meq/L 3.5-5.1 L [...] (test code = 7.2 mg/dL 8.4-10.2 L 56882-2) AST (test code = 38 U/L 5-34 H Specimen sl ightly 1920-8) hemolyzed ALT (test code = 31 U/L 6-55 Specimen sl ightly 1742-6) hemolyzed EGFR (test code = 95 mL/min/1.73 [place] [address]-6) NOT ACCURATE CREATININE CLEARANCE IN PREDICTING GLOMERULAR FILTRATION RATE . ESTIMATED GFR I S NOT APPLICABLE FOR DIALYSIS PATIEN TS. STACY (test code = STACY) [facility] ID - PIAYA L Lab Interpretation Abnormal (test code = 54788-7) [facility]21[facility]-02 14:39:00 Test Item Value Reference Range Interpretation Comments LDH (test code = 390 U/L 125-220 H Specimen 2532-0) slightly hemolyzed STACY (test code = STACY) [facility] ID - PIAYA L Lab Interpretation Abnormal (test code = 39075-8) [facility] [id number] 14:39:00 Test Item Value Reference Range Interpretation Comments Protein, Total (test 6.0 See_Comment Specime n slightly code = 3745-2) hemolyzed [Automated message] The system which generated this result transmit saulo reference range : 6.0 - 8.3 gm/dL . The reference range was not u sed to interpret th is result as normal/abnormal . Albumin (test code = 2.0 g/dL 3.5-5.0 L Specime n slightly 47790-7) hemolyzed Alkaline Phosphatase 65 U/L 40-150 (test code = 6768-6) Total Bilirubin (test 0.4 mg/dL 0.2-1.2 Specim en slightly code = 1975-2) hemolyzed Sodium (test code = 141 meq/L 837-428 3463-2) Potassium (test code 3.3 meq/L 3.5-5.1 L [...] (test code = 7.2 mg/dL 8.4-10.2 L 97965-3) AST (test code = 38 U/L 5-34 H Specimen sl ightly 1920-8) hemolyzed ALT (test code = 31 U/L 6-55 Specimen sl ightly 1742-6) hemolyzed EGFR (test code = 95 mL/min/1.73 [place] [address]-2) NOT ACCURATE CREATININE CLEARANCE IN PREDICTING GLOMERULAR FILTRATION RATE . ESTIMATED GFR I S NOT APPLICABLE FOR DIALYSIS PATIEN TS. STACY (test code = STACY) [facility] ID - PIAYA L Lab Interpretation Abnormal (test code = 62565-4) [facility]21[facility] 14:39:00 Test Item Value Reference Range Interpretation Comments LDH (test code = 390 U/L 125-220 H Specimen 2532-0) slightly hemolyzed STACY (test code = STACY) [facility] ID - PIAYA L Lab Interpretation Abnormal (test code = 42870-7) [facility] [id number] 14:39:00 Test Item Value Reference Range Interpretation Comments Protein, Total (test 6.0 See_Comment Specime n slightly code = 4945-2) hemolyzed [Automated message] The system which generated this result transmit saulo reference range : 6.0 - 8.3 gm/dL . The reference range was not u sed to interpret th is result as normal/abnormal . Albumin (test code = 2.0 g/dL 3.5-5.0 L Specime n slightly 24128-4) hemolyzed Alkaline Phosphatase 65 U/L 40-150 (test code = 6768-6) Total Bilirubin (test 0.4 mg/dL 0.2-1.2 Specim en slightly code = 1974-2) hemolyzed Sodium (test code = 141 meq/L 522-913 0398-2) Potassium (test code 3.3 meq/L 3.5-5.1 L [...] (test code = 7.2 mg/dL 8.4-10.2 L 92547-6) AST (test code = 38 U/L 5-34 H Specimen sl ightly 1920-8) hemolyzed ALT (test code = 31 U/L 6-55 Specimen sl ightly 1742-6) hemolyzed EGFR (test code = 95 mL/min/1.73 [place] [address]-1) NOT ACCURATE CREATININE CLEARANCE IN PREDICTING GLOMERULAR FILTRATION RATE . ESTIMATED GFR I S NOT APPLICABLE FOR DIALYSIS PATIEN TS. STACY (test code = STACY) [facility] ID - MERT L Lab Interpretation Abnormal (test code = 50835-7) [facility]21[facility] 14:39:00 Test Item Value Reference Range Interpretation Comments LDH (test code = 390 U/L 125-220 H Specimen 2532-0) slightly hemolyzed STACY (test code = STACY) [facility] ID - MERT L Lab Interpretation Abnormal (test code = 06840-3) [facility]LDH)2021-04-02 14:39:00 Test Item Value Reference Range Interpretation Comments LACTATE DEHYDROGENASE 390 U/L 125-220 H Specim en slightly (BEAKER) (test code = hemoly zed 635) [facility] ID - MERT LCOMPREHENSIVE METABOLIC [id number] 14:39:00 Test Item Value Reference Range Interpretation [...] S NOT APPLICABLE FOR DIALYSIS PATIEN TS. [facility] ID - MERT [id number] 14:35:00 Test Item Value Reference Range Interpretation Comments Magnesium (test code = 1.4 mg/dL 1.6-2.6 L Speci men 52855-7) slightly hemolyzed STACY (test code = STACY) [facility] ORLY - MERT [place] Lab Interpretation Abnormal (test code = 37433-9) [facility] [id number] 14:35:00 Test Item Value Reference Range Interpretation Comments CRP (test code = 676) 2.68 mg/dL 0-0.5 H STACY (test code = STACY) [facility] ID - PIAYA L Lab Interpretation (test Abnormal code = 84848-1) [facility] Test Item Value Reference Range Interpretation Comments Magnesium (test code = 1.4 mg/dL 1.6-2.6 L Speci men 23581-9) slightly hemolyzed STACY (test code = STACY) [facility] ID - PIAYA L Lab Interpretation Abnormal (test code = 27033-2) [facility] [id number] 14:35:00 Test Item Value Reference Range Interpretation Comments CRP (test code = 676) 2.68 mg/dL 0.00-0.50 H STACY (test code = STACY) [facility] ID - PIAYA L Lab Interpretation (test Abnormal code = 67334-0) [facility] 14:35:00 Test Item Value Reference Range Interpretation Comments Magnesium (test code = 1.4 mg/dL 1.6-2.6 L Speci men 04014-7) slightly hemolyzed STACY (test code = STACY) [facility] ID - PIAYA L Lab Interpretation Abnormal (test code = 77168-5) [facility] [id number] 14:35:00 Test Item Value Reference Range Interpretation Comments CRP (test code = 676) 2.68 mg/dL 0.00-0.50 H STACY (test code = STACY) [facility] ID - PIAYA L Lab Interpretation (test Abnormal code = 26367-7) [facility] 14:35:00 Test Item Value Reference Range Interpretation Comments Magnesium (test code = 1.4 mg/dL 1.6-2.6 L Speci men 00544-2) slightly hemolyzed STACY (test code = STACY) [facility] ID - PIAYA L Lab Interpretation Abnormal (test code = 74159-6) [facility] [id number] 14:35:00 Test Item Value Reference Range Interpretation Comments CRP (test code = 676) 2.68 mg/dL 0.00-0.50 H STACY (test code = STACY) [facility] ID - PIAYA L Lab Interpretation (test Abnormal code = 58954-1) [facility] 14:35:00 Test Item Value Reference Range Interpretation Comments Magnesium (test code = 1.4 mg/dL 1.6-2.6 L Speci men 14267-8) slightly hemolyzed STACY (test code = STACY) [facility] ID - PIAYA L Lab Interpretation Abnormal (test code = 10088-4) [facility] [id number] 14:35:00 Test Item Value Reference Range Interpretation Comments CRP (test code = 676) 2.68 mg/dL 0.00-0.50 H STACY (test code = STACY) [facility] ID - PIAYA L Lab Interpretation (test Abnormal code = 88894-2) [facility]erg[facility]ium20[facility] 14:35:00 Test Item Value Reference Range Interpretation Comments Magnesium (test code = 1.4 mg/dL 1.6-2.6 L Speci men 33545-1) slightly hemolyzed STACY (test code = STACY) [facility] ID - PIAYA L Lab Interpretation Abnormal (test code = 78235-7) [facility] [id number] 14:35:00 Test Item Value Reference Range Interpretation Comments CRP (test code = 676) 2.68 mg/dL 0.00-0.50 H STACY (test code = STACY) [facility] ID - PIAYA L Lab Interpretation (test Abnormal code = 05234-1) [facility]UM2021-[facility] 14:35:00 Test Item Value Reference Range Interpretation Comments MAGNESIUM (BEAKER) 1.4 mg/dL 1.6-2.6 L Specimen slightly (test code = 627) hemolyzed [facility] ID - PIAYA LC-REACTIVE [id number] 14:35:00 Test Item Value Reference Range Interpretation Comments C-REACTIVE PROTEIN (BEAKER) (test 2.68 mg/dL 0.00-0.50 H code = 676) [facility] ID - PIAYA [id number]-[id number] 14:24:00 Test Item Value Reference Range Interpretation Comments D-Dimer, Quant (test 1.25 See_Comment H [Autom ated code = 84130-4) message] The system which generated this result [...] range. Lab Interpretation Abnormal (test code = 27406-2) [facility]-[id number] 14:24:00 Test Item Value Reference Range Interpretation Comments D-Dimer, Quant (test 1.25 See_Comment H [Autom ated code = 99193-7) message] The system which generated this result [...] range. Lab Interpretation Abnormal (test code = 23523-9) [facility] CenterD-pkuro5158-50-74 14:24:00 Test Item Value Reference Range Interpretation Comments D-Dimer, Quant (test 1.25 See_Comment H [Autom ated code = 62591-0) message] The system which generated this result [...] range. Lab Interpretation Abnormal (test code = 31103-4) [facility]-lldle1010-49-25 14:24:00 Test Item Value Reference Range Interpretation Comments D-Dimer, Quant (test 1.25 See_Comment H [Autom ated code = 70069-9) message] The system which generated this result [...] range. Lab Interpretation Abnormal (test code = 68098-1) [facility]-yfdvg6910-75-76 14:24:00 Test Item Value Reference Range Interpretation Comments D-Dimer, Quant (test 1.25 See_Comment H [Autom ated code = 96989-1) message] The system which generated this result [...] range. Lab Interpretation Abnormal (test code = 95571-0) [facility]-[id number] 14:24:00 Test Item Value Reference Range Interpretation Comments D-Dimer, Quant (test 1.25 See_Comment H [Autom ated code = 91206-9) message] The system which generated this result transmitted reference range : <0.50 MG/L FEU. The reference range was not used to interpr et this result as normal/abnormal . STACY (test code = SATCY) Intended Use: The D-Dimer Assay can be [...] range. Lab Interpretation Abnormal (test code = 88875-4) [facility]-[id number] 14:24:00 Test Item Value Reference Range Interpretation [...] 95-100% range.CBC with platelet count + automated [id number] 14:17:00 Test Item Value Reference Range Interpretation Comments WBC (test code = 6690-2) 14.6 See_Comment H [A utomated message] The system [employer] generated this result transmitted ref erence range: 3.5 - 10 .5 K/L. The refe rence range was not u sed to interpret this result as normal/abnor mal. RBC (test code = 789-8) 4.03 See_Comment L [Au tomated message] The system [employer] generated this result transmitted ref erence range: 4.63 - 6 .08 M/L. The refe rence range was not u sed to interpret this result as normal/abnor mal. MCHC (test code = 786-4) 32.0 See_Comment L [A utomated message] The system [employer] generated this result transmitted ref erence range: [...] See_Comment [Aut omated message] 777-3) The system [employer] generated this result transmitted ref erence range: 150 - 45 0 K/CU MM. The referen ce range was not u sed to interpret this result as normal/abnor mal. MPV (test code = 11.2 fL 9.4-12.4 37470-8) nRBC (test code = 413) 1 See_Comment H [Aut omated message] The system [employer] generated this result transmitted ref erence range: [...] H [Aut omated message] 670) The system [employer] generated this result transmitted ref erence range: 1.78 - 5 .38 K/L. The refe rence range was not u sed to interpret this result as normal/abnor mal. # Lymphs (test code = 1.26 See_Comment L [Auto mated message] 414) The system [employer] generated this result transmitted ref erence range: 1.32 - 3 .57 K/L. The refe rence range was not u sed to interpret this result as normal/abnor mal. # Monos (test code = 0.76 See_Comment [Autom ated message] 415) The system [employer] generated this result transmitted ref erence range: 0.30 - 0 .82 K/L. The refe rence range was not u sed to interpret this result as normal/abnor mal. # Eos (test code = 416) 0.00 See_Comment L [Au tomated message] The system [employer] generated this result transmitted ref erence range: 0.04 - 0 .54 K/L. The refe rence range was not u sed to interpret this result as normal/abnor mal. # Baso (test code = 417) 0.03 See_Comment [A utomated message] The system [employer] generated this result transmitted ref erence range: 0.01 - 0 .08 K/L. The refe rence range was not u sed to interpret this result as normal/abnor mal. Immature 2 % 0-1 H Granulocytes-Relative (test code = 2801) Lab Interpretation (test Abnormal code = 35034-8) [facility] with platelet count + automated [id number] 14:17:00 Test Item Value Reference Range Interpretation Comments WBC (test code = 6690-2) 14.6 See_Comment H [A utomated message] The system [employer] generated this result transmitted ref erence range: 3.5 - 10 .5 K/L. The refe rence range was not u sed to interpret this result as normal/abnor mal. RBC (test code = 789-8) 4.03 See_Comment L [Au tomated message] The system [employer] generated this result transmitted ref erence range: 4.63 - 6 .08 M/L. The refe rence range was not u sed to interpret this result as normal/abnor mal. MCHC (test code = 786-4) 32.0 See_Comment L [A utomated message] The system [employer] generated this result transmitted ref erence range: [...] See_Comment [Aut omated message] 777-3) The system [employer] generated this result transmitted ref erence range: 150 - 45 0 K/CU MM. The referen ce range was not u sed to interpret this result as normal/abnor mal. MPV (test code = 11.2 fL 9.4-12.4 60753-3) nRBC (test code = 413) 1 See_Comment H [Aut omated message] The system [employer] generated this result transmitted ref erence range: [...] H [Aut omated message] 670) The system [employer] generated this result transmitted ref erence range: 1.78 - 5 .38 K/L. The refe rence range was not u sed to interpret this result as normal/abnor mal. # Lymphs (test code = 1.26 See_Comment L [Auto mated message] 414) The system [employer] generated this result transmitted ref erence range: 1.32 - 3 .57 K/L. The refe rence range was not u sed to interpret this result as normal/abnor mal. # Monos (test code = 0.76 See_Comment [Autom ated message] 415) The system [employer] generated this result transmitted ref erence range: 0.30 - 0 .82 K/L. The refe rence range was not u sed to interpret this result as normal/abnor mal. # Eos (test code = 416) 0.00 See_Comment L [Au tomated message] The system [employer] generated this result transmitted ref erence range: 0.04 - 0 .54 K/L. The refe rence range was not u sed to interpret this result as normal/abnor mal. # Baso (test code = 417) 0.03 See_Comment [A utomated message] The system [employer] generated this result transmitted ref erence range: 0.01 - 0 .08 K/L. The refe rence range was not u sed to interpret this result as normal/abnor mal. Immature 2 % 0-1 H Granulocytes-Relative (test code = 2801) Lab Interpretation (test Abnormal code = 50060-3) [facility] with platelet count + automated [id number] 14:17:00 Test Item Value Reference Range Interpretation Comments WBC (test code = 6690-2) 14.6 See_Comment H [A utomated message] The system [employer] generated this result transmitted ref erence range: 3.5 - 10 .5 K/L. The refe rence range was not u sed to interpret this result as normal/abnor mal. RBC (test code = 789-8) 4.03 See_Comment L [Au tomated message] The system [employer] generated this result transmitted ref erence range: 4.63 - 6 .08 M/L. The refe rence range was not u sed to interpret this result as normal/abnor mal. MCHC (test code = 786-4) 32.0 See_Comment L [A utomated message] The system [employer] generated this result transmitted ref erence range: [...] See_Comment [Aut omated message] 777-3) The system [employer] generated this result transmitted ref erence range: 150 - 45 0 K/CU MM. The referen ce range was not u sed to interpret this result as normal/abnor mal. MPV (test code = 11.2 fL 9.4-12.4 96750-6) nRBC (test code = 413) 1 See_Comment H [Aut omated message] The system [employer] generated this result transmitted ref erence range: [...] H [Aut omated message] 670) The system [employer] generated this result transmitted ref erence range: 1.78 - 5 .38 K/L. The refe rence range was not u sed to interpret this result as normal/abnor mal. # Lymphs (test code = 1.26 See_Comment L [Auto mated message] 414) The system [employer] generated this result transmitted ref erence range: 1.32 - 3 .57 K/L. The refe rence range was not u sed to interpret this result as normal/abnor mal. # Monos (test code = 0.76 See_Comment [Autom ated message] 415) The system [employer] generated this result transmitted ref erence range: 0.30 - 0 .82 K/L. The refe rence range was not u sed to interpret this result as normal/abnor mal. # Eos (test code = 416) 0.00 See_Comment L [Au tomated message] The system [employer] generated this result transmitted ref erence range: 0.04 - 0 .54 K/L. The refe rence range was not u sed to interpret this result as normal/abnor mal. # Baso (test code = 417) 0.03 See_Comment [A utomated message] The system [employer] generated this result transmitted ref erence range: 0.01 - 0 .08 K/L. The refe rence range was not u sed to interpret this result as normal/abnor mal. Immature 2 % 0-1 H Granulocytes-Relative (test code = 2801) Lab Interpretation (test Abnormal code = 02059-0) [facility] + automated [id number] 14:17:00 Test Item Value Reference Range Interpretation Comments WBC (test code = 6690-2) 14.6 See_Comment H [A utomated message] The system [employer] generated this result transmitted ref erence range: 3.5 - 10 .5 K/L. The refe rence range was not u sed to interpret this result as normal/abnor mal. RBC (test code = 789-8) 4.03 See_Comment L [Au tomated message] The system [employer] generated this result transmitted ref erence range: 4.63 - 6 .08 M/L. The refe rence range was not u sed to interpret this result as normal/abnor mal. MCHC (test code = 786-4) 32.0 See_Comment L [A utomated message] The system [employer] generated this result transmitted ref erence range: [...] See_Comment [Aut omated message] 777-3) The system [employer] generated this result transmitted ref erence range: 150 - 45 0 K/CU MM. The referen ce range was not u sed to interpret this result as normal/abnor mal. MPV (test code = 11.2 fL 9.4-12.4 81599-6) nRBC (test code = 413) 1 See_Comment H [Aut omated message] The system [employer] generated this result transmitted ref erence range: [...] H [Aut omated message] 670) The system [employer] generated this result transmitted ref erence range: 1.78 - 5 .38 K/L. The refe rence range was not u sed to interpret this result as normal/abnor mal. # Lymphs (test code = 1.26 See_Comment L [Auto mated message] 414) The system [employer] generated this result transmitted ref erence range: 1.32 - 3 .57 K/L. The refe rence range was not u sed to interpret this result as normal/abnor mal. # Monos (test code = 0.76 See_Comment [Autom ated message] 415) The system [employer] generated this result transmitted ref erence range: 0.30 - 0 .82 K/L. The refe rence range was not u sed to interpret this result as normal/abnor mal. # Eos (test code = 416) 0.00 See_Comment L [Au tomated message] The system [employer] generated this result transmitted ref erence range: 0.04 - 0 .54 K/L. The refe rence range was not u sed to interpret this result as normal/abnor mal. # Baso (test code = 417) 0.03 See_Comment [A utomated message] The system [employer] generated this result transmitted ref erence range: 0.01 - 0 .08 K/L. The refe rence range was not u sed to interpret this result as normal/abnor mal. Immature 2 % 0-1 H Granulocytes-Relative (test code = 2801) Lab Interpretation (test Abnormal code = 55919-1) [facility] with platelet count + automated [id number] 14:17:00 Test Item Value Reference Range Interpretation Comments WBC (test code = 6690-2) 14.6 See_Comment H [A utomated message] The system [employer] generated this result transmitted ref erence range: 3.5 - 10 .5 K/L. The refe rence range was not u sed to interpret this result as normal/abnor mal. RBC (test code = 789-8) 4.03 See_Comment L [Au tomated message] The system [employer] generated this result transmitted ref erence range: 4.63 - 6 .08 M/L. The refe rence range was not u sed to interpret this result as normal/abnor mal. MCHC (test code = 786-4) 32.0 See_Comment L [A utomated message] The system [employer] generated this result transmitted ref erence range: [...] See_Comment [Aut omated message] 777-3) The system [employer] generated this result transmitted ref erence range: 150 - 45 0 K/CU MM. The referen ce range was not u sed to interpret this result as normal/abnor mal. MPV (test code = 11.2 fL 9.4-12.4 92474-5) nRBC (test code = 413) 1 See_Comment H [Aut omated message] The system [employer] generated this result transmitted ref erence range: [...] H [Aut omated message] 670) The system [employer] generated this result transmitted ref erence range: 1.78 - 5 .38 K/L. The refe rence range was not u sed to interpret this result as normal/abnor mal. # Lymphs (test code = 1.26 See_Comment L [Auto mated message] 414) The system [employer] generated this result transmitted ref erence range: 1.32 - 3 .57 K/L. The refe rence range was not u sed to interpret this result as normal/abnor mal. # Monos (test code = 0.76 See_Comment [Autom ated message] 415) The system [employer] generated this result transmitted ref erence range: 0.30 - 0 .82 K/L. The refe rence range was not u sed to interpret this result as normal/abnor mal. # Eos (test code = 416) 0.00 See_Comment L [Au tomated message] The system [employer] generated this result transmitted ref erence range: 0.04 - 0 .54 K/L. The refe rence range was not u sed to interpret this result as normal/abnor mal. # Baso (test code = 417) 0.03 See_Comment [A utomated message] The system [employer] generated this result transmitted ref erence range: 0.01 - 0 .08 K/L. The refe rence range was not u sed to interpret this result as normal/abnor mal. Immature 2 % 0-1 H Granulocytes-Relative (test code = 2801) Lab Interpretation (test Abnormal code = 84173-1) [facility] with platelet count + automated [id number] 14:17:00 Test Item Value Reference Range Interpretation Comments WBC (test code = 6690-2) 14.6 See_Comment H [A utomated message] The system [employer] generated this result transmitted ref erence range: 3.5 - 10 .5 K/L. The refe rence range was not u sed to interpret this result as normal/abnor mal. RBC (test code = 789-8) 4.03 See_Comment L [Au tomated message] The system [employer] generated this result transmitted ref erence range: 4.63 - 6 .08 M/L. The refe rence range was not u sed to interpret this result as normal/abnor mal. MCHC (test code = 786-4) 32.0 See_Comment L [A utomated message] The system [employer] generated this result transmitted ref erence range: [...] See_Comment [Aut omated message] 777-3) The system [employer] generated this result transmitted ref erence range: 150 - 45 0 K/CU MM. The referen ce range was not u sed to interpret this result as normal/abnor mal. MPV (test code = 11.2 fL 9.4-12.4 27000-5) nRBC (test code = 413) 1 See_Comment H [Aut omated message] The system [employer] generated this result transmitted ref erence range: [...] H [Aut omated message] 670) The system [employer] generated this result transmitted ref erence range: 1.78 - 5 .38 K/L. The refe rence range was not u sed to interpret this result as normal/abnor mal. # Lymphs (test code = 1.26 See_Comment L [Auto mated message] 414) The system [employer] generated this result transmitted ref erence range: 1.32 - 3 .57 K/L. The refe rence range was not u sed to interpret this result as normal/abnor mal. # Monos (test code = 0.76 See_Comment [Autom ated message] 415) The system [employer] generated this result transmitted ref erence range: 0.30 - 0 .82 K/L. The refe rence range was not u sed to interpret this result as normal/abnor mal. # Eos (test code = 416) 0.00 See_Comment L [Au tomated message] The system [employer] generated this result transmitted ref erence range: 0.04 - 0 .54 K/L. The refe rence range was not u sed to interpret this result as normal/abnor mal. # Baso (test code = 417) 0.03 See_Comment [A utomated message] The system [employer] generated this result transmitted ref erence range: 0.01 - 0 .08 K/L. The refe rence range was not u sed to interpret this result as normal/abnor mal. Immature 2 % 0-1 H Granulocytes-Relative (test code = 2801) Lab Interpretation (test Abnormal code = 91606-1) [facility] W/PLT COUNT & AUTO [id number] 14:17:00 Test Item Value Reference Range Interpretation [...] PERCENT (BEAKER) (test code = 2801) POC-Glucose [id number] 02:03:00 Test Item Value Reference Range Interpretation Comments POC-Glucose Meter (test 115 mg/dL 70-110 H : TE STED AT [facility] code = 1538) [address] [place] [address], [facility] 30: Messenger Office/Techni tressa ID = [id number] for Desin (contract ), Nhi Lab Interpretation (test Abnormal code = 62138-7) [facility] [id number] 02:03:00 Test Item Value Reference Range Interpretation Comments POC-Glucose Meter (test 115 mg/dL 70-110 H : TE STED AT [facility] code = 1538) [address] [place] [address], [facility] 30: Messenger Office/Techni tressa ID = [id number] for Desin (contract ), Nhi Lab Interpretation (test Abnormal code = 11845-3) [facility] [id number] 02:03:00 Test Item Value Reference Range Interpretation Comments POC-Glucose Meter (test 115 mg/dL 70-110 H : TE STED AT [facility] code = 1538) [address] [facility], [address] 30: Messenger Office/Techni tressa ID = [id number] for Desin (contract ), Nhi Lab Interpretation (test Abnormal code = 69702-7) [facility] [id number] 02:03:00 Test Item Value Reference Range Interpretation Comments POC-Glucose Meter (test 115 mg/dL 70-110 H : TE STED AT [facility] code = 1538) [address] [facility], 770 30: Messenger Office/Techni tressa ID = [id number] for Desin (contract ), Nhi Lab Interpretation (test Abnormal code = 72935-6) [facility] [id number] 02:03:00 Test Item Value Reference Range Interpretation Comments POC-Glucose Meter (test 115 mg/dL 70-110 H : TE STED AT [facility] code = 1538) [address] [place] [address], 770 30: Messenger Office/Techni tressa ID = [id number] for Desin (contract ), Nhi Lab Interpretation (test Abnormal code = 72351-5) [facility] [id number] 02:03:00 Test Item Value Reference Range Interpretation Comments POC-Glucose Meter (test 115 mg/dL 70-110 H : TE STED AT [facility] code = 1538) [address] [place] [address], 770 30: Messenger Office/Techni tressa ID = [id number] for Desin (contract ), Nhi Lab Interpretation (test Abnormal code = 72468-6) [facility] [id number] 02:03:00 Test Item Value Reference Range Interpretation Comments POC-GLUCOSE METER 115 mg/dL 70-110 H : TESTED A T [facility] 6720 (BEAKER) (test code = [facility], 1538) [address]: Messenger Office/Techni tressa ID = [id number] for De sin (contract), Vineet da POCT-GLUCOSE [id number] 21:04:00 Test Item Value Reference Range Interpretation Comments POC-GLUCOSE METER 143 mg/dL 70-110 H : TESTED A T [facility] 6720 (BEAKER) (test code = [facility], 1538) [address]: Messenger Office/Techni tressa ID = [id number] for NEHA OLSON SARS-CoV2/Influenza/RSV RT-PCR (Symptomatic ONLY)2021-04-01 19:00:00 Test Item Value Reference Interpretation Comments Range SARS-COV2/RT-PCR Positive Negative AA The SARS-Co V-2 (test code = target nucleic 87281-8) acids are detec saulo in this specime [...] SARS CoV-2 test is a rapid, real-t amry RT-PCR test intended for th e qualitative [...] (test code = [place] [address]15-4) not detected in this specimen. Influenza B RT-PCR Negative Negative The Flu B target (test code = [place] 61118-5) not detected in this specimen. RSV by RT-PCR (test Negative Negative The RSV target code = 59048-6) nucleic acid s are not detected in [...] the Act. Fact Sheet for Healthcare Providers:https://loraine [employer]/Docu ments/Xpert%20Xpres s%20SARS%20CoV-2/Fa ct%20Sheets/302-390 2%65IOIT-DGU-7%20HE ALTHCARE%20PROVIDER S%20FACT%20SHEET.pd f Fact Sheet for Healthcare Patients:https://cady M/[employer]/Docum ents/Xpert%20Xpress %20SARS%20Cov-2/Fac t%20Sheets/302-3801 %69GCAQ-WMQ-6%20PAT IENT%20FACT%20SHEET .pdf Lab Interpretation Abnormal (test code = 87894-2) [facility] (Symptomatic ONLY) 2021-04-01 19:00:00 Test Item Value Reference Interpretation Comments Range SARS-COV2/RT-PCR Positive Negative AA The SARS-Co V-2 (test code = target nucleic 79982-9) acids are detec saulo in this specime [...] (test code = [place] re 22553-8) not detected in this specimen. Influenza B RT-PCR Negative Negative The Flu B target (test code = [place] 28222-5) not detected in this specimen. RSV by RT-PCR (test Negative Negative The RSV target code = 11737-7) nucleic acid s are not detected in [...] the Act. Fact Sheet for Healthcare Providers:https://w [employer]/Docu ments/Xpert%20Xpres s%20SARS%20CoV-2/Fa ct%20Sheets/302-390 2%83RAIF-FSZ-3%20HE ALTHCARE%20PROVIDER S%20FACT%20SHEET.pd f Fact Sheet for Healthcare Patients:https://[employer]/Docum ents/Xpert%20Xpress %20SARS%20Cov-2/Fac t%20Sheets/302-3801 %04XFEP-TJE-9%20PAT IENT%20FACT%20SHEET .pdf Lab Interpretation Abnormal (test code = 59285-8) [facility]V [facility] (Symptomatic ONLY) 2021-04-01 19:00:00 Test Item Value Reference Interpretation Comments Range SARS-COV2/RT-PCR Positive Negative AA The SARS-Co V-2 (test code = target nucleic 63910-4) acids are detec saulo in this specime [...] (test code = [place] re 56642-8) not detected in this specimen. Influenza B RT-PCR Negative Negative The Flu B target (test code = [place] 56101-3) not detected in this specimen. RSV by RT-PCR (test Negative Negative The RSV target code = 40455-1) nucleic acid s are not detected in [...] SARS-CoV-2/Flu/RSV by their healthcare provider. Results from [facility] Xpert Xpress SARS-CoV-2/Flu/RSV test should be [...] the Act. Fact Sheet for Healthcare Providers:https://w [employer]/Docu ments/Xpert%20Xpres s%20SARS%20CoV-2/Fa ct%20Sheets/302-390 2%35QPYO-VFJ-4%20HE ALTHCARE%20PROVIDER S%20FACT%20SHEET.pd f Fact Sheet for Healthcare Patients:https://[employer]/Docum ents/Xpert%20Xpress %20SARS%20Cov-2/Fac t%20Sheets/302-3801 %06UTUH-UIT-0%20PAT IENT%20FACT%20SHEET .pdf Lab Interpretation Abnormal (test code = 09514-3) [facility]V [facility] (Symptomatic ONLY) 2021-04-01 19:00:00 Test Item Value Reference Interpretation Comments Range SARS-COV2/RT-PCR Positive Negative AA The SARS-Co V-2 (test code = target nucleic 37769-3) acids are detec saulo in this specime [...] (test code = [place] [address]1935-8) not detected in this specimen. Influenza B RT-PCR Negative Negative The Flu B target (test code = [place] 08071-1) not detected in this specimen. RSV by RT-PCR (test Negative Negative The RSV target code = 86273-0) nucleic acid s are not detected in [...] SARS-CoV-2/Flu/RSV by their healthcare provider. Results from [facility] Xpert Xpress SARS-CoV-2/Flu/RSV test should be [...] the Act. Fact Sheet for Healthcare Providers:https://w [employer]/Docu ments/Xpert%20Xpres s%20SARS%20CoV-2/Fa ct%20Sheets/302-390 2%21BEHT-GCU-8%20HE ALTHCARE%20PROVIDER S%20FACT%20SHEET.pd f Fact Sheet for Healthcare Patients:https://[employer]/Docum ents/Xpert%20Xpress %20SARS%20Cov-2/Fac t%20Sheets/302-3801 %56QXJB-GAI-1%20PAT IENT%20FACT%20SHEET .pdf Lab Interpretation Abnormal (test code = 22696-7) [facility]V [facility] (Symptomatic ONLY) 2021-04-01 19:00:00 Test Item Value Reference Interpretation Comments Range SARS-COV2/RT-PCR Positive Negative AA The SARS-Co V-2 (test code = target nucleic 30219-8) acids are detec saulo in this specime [...] (test code = [place] 81976-5) not detected in this specimen. Influenza B RT-PCR Negative Negative The Flu B target (test code = [place] 77972-4) not detected in this specimen. RSV by RT-PCR (test Negative Negative The RSV target code = 57144-9) nucleic acid s are not detected in [...] the Act. Fact Sheet for Healthcare Providers:https://w [employer]/Docu ments/Xpert%20Xpres s%20SARS%20CoV-2/Fa ct%20Sheets/302-390 2%01KBCS-JRY-4%20HE ALTHCARE%20PROVIDER S%20FACT%20SHEET.pd f Fact Sheet for Healthcare Patients:https://cady M/[employer]/Docum ents/Xpert%20Xpress %20SARS%20Cov-2/Fac t%20Sheets/302-3801 %52XMDW-JCD-0%20PAT IENT%20FACT%20SHEET .pdf Lab Interpretation Abnormal (test code = 43681-1) [facility]V [facility] (Symptomatic ONLY) 2021-04-01 19:00:00 Test Item Value Reference Interpretation Comments Range SARS-COV2/RT-PCR Positive Negative AA The SARS-Co V-2 (test code = target nucleic 79510-0) acids are detec saulo in this specime [...] (test code = [place] [address]34-8) not detected in this specimen. Influenza B RT-PCR Negative Negative The Flu B target (test code = [place] re 85273-2) not detected in this specimen. RSV by RT-PCR (test Negative Negative The RSV target code = 19097-9) nucleic acid s are not detected in [...] SARS-CoV-2/Flu/RSV by their healthcare provider. Results from [facility] Xpert Xpress SARS-CoV-2/Flu/RSV test should be [...] the Act. Fact Sheet for Healthcare Providers:https://w [employer]/Docu ments/Xpert%20Xpres s%20SARS%20CoV-2/Fa ct%20Sheets/302-390 2%80JLSH-ODG-8%20HE ALTHCARE%20PROVIDER S%20FACT%20SHEET.pd f Fact Sheet for Healthcare Patients:https://[employer]/Docum ents/Xpert%20Xpress %20SARS%20Cov-2/Fac t%20Sheets/302-3801 %60ONKT-VAJ-7%20PAT IENT%20FACT%20SHEET .pdf Lab Interpretation Abnormal (test code = 11933-4) [facility]FLUENZA/RSV [id number] 19:00:00 Test Item Value Reference Range Interpretation Comments SARS-COV2/RT-PCR Positive Negative AA The SARS-Co V-2 target (test code = nucleic acids a re 1588025) detected in thi s specimen. The presence [...] individuals teressa pected of COVID-19 by [facility]. Results from e Xpert Xpress SARS-CoV [...] The RSV ta rget nucleic code = 0912049) acids are no t detected in this [...] SARS-CoV-2/Flu/RSV by their healthcare provider. Results from [facility] Xpert Xpress SARS-CoV-2/Flu/RSV test should be [...] of the Act.Fact Sheet for Healthcare Providers :https://www.[employer]/Documents/Xpert%20Xpress%20SARS%20CoV-2/Fact%20Sheets/3 02-3902%78BVVR-JVV-1%20HEALTHCARE%20PROVIDERS%20FACT%20SHEET.pdfFact Sheet for Healthcare Patients:https://www.[employer] /Documents/Xpert%20Xpress%20SARS%20Cov-2/Fact%20Sheets/302-3801%26LNZR-SGK-6%20P ATIENT%20FACT%20SHEET.pdfUrinalysis w/Microscopic + Reflex to [id number] 17:43:00 Test Item Value Reference Range Interpretation Comments Color, UA (test code Yellow = 5778-6) Clarity, UA (test Hazy code = 5767-9) Specific [place], UA 1.031 1.001-1.035 (test code = 5811-5) pH, UA (test code = 6.0 5.0-8.0 5803-2) Protein, UA (test 70 mg/dL Negative A code = 13269-0) Glucose, UA (test Negative Negative code = 365) Ketones, UA (test Trace Negative A code = 2514-8) Bilirubin, UA (test Negative Negative code = 57558-0) Blood, UA (test code Moderate Negative A = 72813-0) Nitrite, UA (test Negative Negative code = 5802-4) Leukocytes, UA (test Small Negative A code = 5799-2) Urobilinogen, UA 0.2 mg/dL 0.2-1 (test code = 60444-0) RBC, UA (test code = 27 See_Comment [Autom ated 44841-5) message] The system which generated this result [...] Bacteria, UA (test None Seen code = 16015-0) Mucus (test code = Rare 8247-9) Squam Epithel, UA <1 See_Comment [Automate d (test code = 51124-9) messag e] The system which generated this result transmitted reference range : /HPF. The reference range was not used to interpret this result as normal/abnormal . Hyaline Casts, UA 3 See_Comment [Automate d (test code = 90571-9) messag e] The system which generated this result transmitted reference range : /LPF. The reference range was not used to interpret this result as normal/abnormal . Crystals, Urine (test None Seen code = 90998-4) Yeast (test code = Occasional 16539-7) Specimen Source (test code = 2795) STACY (test code = STACY) Messenger Office ID - [auto]Messenger Office ID - tech Lab Interpretation Abnormal (test code = 58326-8) [facility] + Reflex to Culture 2021-04-01 17:43:00 Test Item Value Reference Range Interpretation Comments Color, UA (test code Yellow = 5778-6) Clarity, UA (test Hazy code = 5767-9) Specific [place], UA 1.031 1.001-1.035 (test code = 5811-5) pH, UA (test code = 6.0 5.0-8.0 5803-2) Protein, UA (test 70 mg/dL Negative A code = 50215-8) Glucose, UA (test Negative Negative code = 365) Ketones, UA (test Trace Negative A code = 2514-8) Bilirubin, UA (test Negative Negative code = 45609-1) Blood, UA (test code Moderate Negative A = 26598-2) Nitrite, UA (test Negative Negative code = 5802-4) Leukocytes, UA (test Small Negative A code = 5799-2) Urobilinogen, UA 0.2 mg/dL 0.2-1.0 (test code = 14316-8) RBC, UA (test code = 27 See_Comment [Autom ated 93339-7) message] The system which generated this result [...] Bacteria, UA (test None Seen code = 16340-2) Mucus (test code = Rare 8247-9) Squam Epithel, UA <1 See_Comment [Automate d (test code = 49418-5) messag e] The system which generated this result transmitted reference range : /HPF. The reference range was not used to interpret this result as normal/abnormal . Hyaline Casts, UA 3 See_Comment [Automate d (test code = 20040-8) messag e] The system which generated this result transmitted reference range : /LPF. The reference range was not used to interpret this result as normal/abnormal . Crystals, Urine (test None Seen code = 98129-2) Yeast (test code = Occasional 26168-6) Specimen Source (test code = 2795) STACY (test code = STACY) Messenger Office ID - [auto]Messenger Office ID - tech Lab Interpretation Abnormal (test code = 50974-2) [facility] + Reflex to Culture 2021-04-01 17:43:00 Test Item Value Reference Range Interpretation Comments Color, UA (test code Yellow = 5778-6) Clarity, UA (test Hazy code = 5767-9) Specific [place], UA 1.031 1.001-1.035 (test code = 5811-5) pH, UA (test code = 6.0 5.0-8.0 5803-2) Protein, UA (test 70 mg/dL Negative A code = 51812-0) Glucose, UA (test Negative Negative code = 365) Ketones, UA (test Trace Negative A code = 7924-8) Bilirubin, UA (test Negative Negative code = 05115-0) Blood, UA (test code Moderate Negative A = 35786-3) Nitrite, UA (test Negative Negative code = 5802-4) Leukocytes, UA (test Small Negative A code = 5799-2) Urobilinogen, UA 0.2 mg/dL 0.2-1.0 (test code = 73286-4) RBC, UA (test code = 27 See_Comment [Autom ated 54188-8) message] The system which generated this result [...] Bacteria, UA (test None Seen code = 90689-8) Mucus (test code = Rare 8247-9) Squam Epithel, UA <1 See_Comment [Automate d (test code = 93683-0) messag e] The system which generated this result transmitted reference range : /HPF. The reference range was not used to interpret this result as normal/abnormal . Hyaline Casts, UA 3 See_Comment [Automate d (test code = 22463-1) messag e] The system which generated this result transmitted reference range : /LPF. The reference range was not used to interpret this result as normal/abnormal . Crystals, Urine (test None Seen code = 04660-5) Yeast (test code = Occasional 89284-3) Specimen Source (test code = 2795) STACY (test code = STACY) Messenger Office ID - [auto]Messenger Office ID - tech Lab Interpretation Abnormal (test code = 89644-4) [facility] Reflex to Culture 2021-04-01 17:43:00 Test Item Value Reference Range Interpretation Comments Color, UA (test code Yellow = 5778-6) Clarity, UA (test Hazy code = 5767-9) Specific [place], UA 1.031 1.001-1.035 (test code = 5811-5) pH, UA (test code = 6.0 5.0-8.0 5803-2) Protein, UA (test 70 mg/dL Negative A code = 09996-6) Glucose, UA (test Negative Negative code = 365) Ketones, UA (test Trace Negative A code = 2514-8) Bilirubin, UA (test Negative Negative code = 31533-2) Blood, UA (test code Moderate Negative A = 59210-7) Nitrite, UA (test Negative Negative code = 5802-4) Leukocytes, UA (test Small Negative A code = 5799-2) Urobilinogen, UA 0.2 mg/dL 0.2-1.0 (test code = 06577-2) RBC, UA (test code = 27 See_Comment [Autom ated 87444-8) message] The system which generated this result [...] Bacteria, UA (test None Seen code = 37763-5) Mucus (test code = Rare 8247-9) Squam Epithel, UA <1 See_Comment [Automate d (test code = 53842-2) messag e] The system which generated this result transmitted reference range : /HPF. The reference range was not used to interpret this result as normal/abnormal . Hyaline Casts, UA 3 See_Comment [Automate d (test code = 44076-9) messag e] The system which generated this result transmitted reference range : /LPF. The reference range was not used to interpret this result as normal/abnormal . Crystals, Urine (test None Seen code = 55457-3) Yeast (test code = Occasional 37690-1) Specimen Source (test code = 2795) STACY (test code = STACY) Messenger Office ID - [auto]Messenger Office ID - tech Lab Interpretation Abnormal (test code = 91661-4) [facility] + Reflex to Culture 2021-04-01 17:43:00 Test Item Value Reference Range Interpretation Comments Color, UA (test code Yellow = 5778-6) Clarity, UA (test Hazy code = 5767-9) Specific [place], UA 1.031 1.001-1.035 (test code = 5811-5) pH, UA (test code = 6.0 5.0-8.0 5803-2) Protein, UA (test 70 mg/dL Negative A code = 34136-9) Glucose, UA (test Negative Negative code = 365) Ketones, UA (test Trace Negative A code = 2514-8) Bilirubin, UA (test Negative Negative code = 94971-7) Blood, UA (test code Moderate Negative A = 02833-2) Nitrite, UA (test Negative Negative code = 5802-4) Leukocytes, UA (test Small Negative A code = 5799-2) Urobilinogen, UA 0.2 mg/dL 0.2-1.0 (test code = 80148-8) RBC, UA (test code = 27 See_Comment [Autom ated 72081-3) message] The system which generated this result [...] Bacteria, UA (test None Seen code = 00800-1) Mucus (test code = Rare 8247-9) Squam Epithel, UA <1 See_Comment [Automate d (test code = 20015-0) messag e] The system which generated this result transmitted reference range : /HPF. The reference range was not used to interpret this result as normal/abnormal . Hyaline Casts, UA 3 See_Comment [Automate d (test code = 57009-5) messag e] The system which generated this result transmitted reference range : /LPF. The reference range was not used to interpret this result as normal/abnormal . Crystals, Urine (test None Seen code = 24712-8) Yeast (test code = Occasional 93265-1) Specimen Source (test code = 2795) STACY (test code = STACY) Messenger Office ID - [auto]Messenger Office ID - tech Lab Interpretation Abnormal (test code = 86917-1) [facility] + Reflex to Culture 2021-04-01 17:43:00 Test Item Value Reference Range Interpretation Comments Color, UA (test code Yellow = 5778-6) Clarity, UA (test Hazy code = 5767-9) Specific [place], UA 1.031 1.001-1.035 (test code = 5811-5) pH, UA (test code = 6.0 5.0-8.0 5803-2) Protein, UA (test 70 mg/dL Negative A code = 34117-4) Glucose, UA (test Negative Negative code = 365) Ketones, UA (test Trace Negative A code = 2514-8) Bilirubin, UA (test Negative Negative code = 58095-2) Blood, UA (test code Moderate Negative A = 08762-0) Nitrite, UA (test Negative Negative code = 5802-4) Leukocytes, UA (test Small Negative A code = 5799-2) Urobilinogen, UA 0.2 mg/dL 0.2-1.0 (test code = 05994-2) RBC, UA (test code = 27 See_Comment [Autom ated 12092-2) message] The system which generated this result [...] Bacteria, UA (test None Seen code = 13101-2) Mucus (test code = Rare 8247-9) Squam Epithel, UA <1 See_Comment [Automate d (test code = 00672-3) messag e] The system which generated this result transmitted reference range : /HPF. The reference range was not used to interpret this result as normal/abnormal . Hyaline Casts, UA 3 See_Comment [Automate d (test code = 09937-9) messag e] The system which generated this result transmitted reference range : /LPF. The reference range was not used to interpret this result as normal/abnormal . Crystals, Urine (test None Seen code = 60301-9) Yeast (test code = Occasional 99494-9) Specimen Source (test code = 2795) STACY (test code = STACY) Messenger Office ID - [auto]Messenger Office ID - tech Lab Interpretation Abnormal (test code = 71441-1) [facility] URINE [id number] 17:43:00 Test Item Value Reference Range Interpretation [...] = 1585) Occasional SOURCE(BEAKER) (test code = 7725) Messenger Office ID - [auto]Messenger Office ID - techBasic Metabolic [id number] 17:22:00 Test Item Value Reference Range Interpretation Comments Sodium (test code = 143 meq/L 823-117 7790-2) Potassium (test code = 3.3 meq/L 3.5-5.1 L 2823-3) Chloride (test code = 117 meq/L 98-107 H 2075-0) CO2 (test code = 18 meq/L 22-29 L 2028-9) BUN (test code = 44 mg/dL 7-21 H 3094-0) Creatinine (test code 0.87 mg/dL 0.57-1.25 = 2160-0) Glucose (test code = 170 mg/dL 70-105 H 2345-7) Calcium (test code = 7.4 mg/dL 8.4-10.2 L 14427-4) EGFR (test code = 85 mL/min/1.73 [place] [address]-7) NOT ACCURATE CREATININE CLEARANCE IN PREDICTING GLOMERULAR FILTRATION RATE . ESTIMATED GFR I S NOT APPLICABLE FOR DIALYSIS PATIENTS. STACY (test code = STACY) Messenger Office ID - BS Lab Interpretation Abnormal (test code = 52973-0) [facility] Metabolic [id number] 17:22:00 Test Item Value Reference Range Interpretation Comments Sodium (test code = 143 meq/L 791-216 4323-2) Potassium (test code = 3.3 meq/L 3.5-5.1 L 2823-3) Chloride (test code = 117 meq/L 98-107 H 2075-0) CO2 (test code = 18 meq/L 22-29 L 2028-9) BUN (test code = 44 mg/dL 7-21 H 3094-0) Creatinine (test code 0.87 mg/dL 0.57-1.25 = 2160-0) Glucose (test code = 170 mg/dL 70-105 H 2345-7) Calcium (test code = 7.4 mg/dL 8.4-10.2 L 14328-7) EGFR (test code = 85 mL/min/1.73 [place] [address]-3) NOT ACCURATE CREATININE CLEARANCE IN PREDICTING GLOMERULAR FILTRATION RATE . ESTIMATED GFR I S NOT APPLICABLE FOR DIALYSIS PATIENTS. STACY (test code = STACY) Messenger Office ID - BS Lab Interpretation Abnormal (test code = 78984-2) [facility] Metabolic [id number] 17:22:00 Test Item Value Reference Range Interpretation Comments Sodium (test code = 143 meq/L 229-256 2014-2) Potassium (test code = 3.3 meq/L 3.5-5.1 L 2823-3) Chloride (test code = 117 meq/L 98-107 H 2075-0) CO2 (test code = 18 meq/L 22-29 L 2028-9) BUN (test code = 44 mg/dL 7-21 H 3094-0) Creatinine (test code 0.87 mg/dL 0.57-1.25 = 2160-0) Glucose (test code = 170 mg/dL 70-105 H 2345-7) Calcium (test code = 7.4 mg/dL 8.4-10.2 L 83511-3) EGFR (test code = 85 mL/min/1.73 [place] [address]-9) NOT ACCURATE CREATININE CLEARANCE IN PREDICTING GLOMERULAR FILTRATION RATE . ESTIMATED GFR I S NOT APPLICABLE FOR DIALYSIS PATIENTS. STACY (test code = STACY) Messenger Office ID - BS Lab Interpretation Abnormal (test code = 45590-7) [facility] Metabolic [id number] 17:22:00 Test Item Value Reference Range Interpretation Comments Sodium (test code = 143 meq/L 399-895 8367-2) Potassium (test code = 3.3 meq/L 3.5-5.1 L 2823-3) Chloride (test code = 117 meq/L 98-107 H 2075-0) CO2 (test code = 18 meq/L 22-29 L 2028-9) BUN (test code = 44 mg/dL 7-21 H 3094-0) Creatinine (test code 0.87 mg/dL 0.57-1.25 = 2160-0) Glucose (test code = 170 mg/dL 70-105 H 2345-7) Calcium (test code = 7.4 mg/dL 8.4-10.2 L 31288-1) EGFR (test code = 85 mL/min/1.73 [place] [address]-6) NOT ACCURATE CREATININE CLEARANCE IN PREDICTING GLOMERULAR FILTRATION RATE . ESTIMATED GFR I S NOT APPLICABLE FOR DIALYSIS PATIENTS. STACY (test code = STACY) Messenger Office ID - BS Lab Interpretation Abnormal (test code = 91289-4) [facility] Metabolic [id number] 17:22:00 Test Item Value Reference Range Interpretation Comments Sodium (test code = 143 meq/L 996-303 6286-2) Potassium (test code = 3.3 meq/L 3.5-5.1 L 2823-3) Chloride (test code = 117 meq/L 98-107 H 2075-0) CO2 (test code = 18 meq/L 22-29 L 2028-9) BUN (test code = 44 mg/dL 7-21 H 3094-0) Creatinine (test code 0.87 mg/dL 0.57-1.25 = 2160-0) Glucose (test code = 170 mg/dL 70-105 H 2345-7) Calcium (test code = 7.4 mg/dL 8.4-10.2 L 34320-8) EGFR (test code = 85 mL/min/1.73 [place] [address]-8) NOT ACCURATE CREATININE CLEARANCE IN PREDICTING GLOMERULAR FILTRATION RATE . ESTIMATED GFR I S NOT APPLICABLE FOR DIALYSIS PATIENTS. STACY (test code = STACY) Messenger Office ID - BS Lab Interpretation Abnormal (test code = 47525-9) [facility] Metabolic [id number] 17:22:00 Test Item Value Reference Range Interpretation Comments Sodium (test code = 143 meq/L 347-989 9250-2) Potassium (test code = 3.3 meq/L 3.5-5.1 L 2823-3) Chloride (test code = 117 meq/L 98-107 H 2075-0) CO2 (test code = 18 meq/L 22-29 L 2028-9) BUN (test code = 44 mg/dL 7-21 H 3094-0) Creatinine (test code 0.87 mg/dL 0.57-1.25 = 2160-0) Glucose (test code = 170 mg/dL 70-105 H 2345-7) Calcium (test code = 7.4 mg/dL 8.4-10.2 L 62747-3) EGFR (test code = 85 mL/min/1.73 [place] [address]-1) NOT ACCURATE CREATININE CLEARANCE IN PREDICTING GLOMERULAR FILTRATION RATE . ESTIMATED GFR I S NOT APPLICABLE FOR DIALYSIS PATIENTS. STACY (test code = STACY) Messenger Office ID - BS Lab Interpretation Abnormal (test code = 32116-7) [facility] METABOLIC [id number] 17:22:00 Test Item Value Reference Range Interpretation [...] S NOT APPLICABLE FOR DIALYSIS PATIEN TS. Messenger Office ID - BSPOCT-GLUCOSE [id number] 17:03:00 Test Item Value Reference Range Interpretation Comments POC-GLUCOSE METER 161 mg/dL 70-110 H : TESTED A T [facility] 6720 (RENEA) (test code = [facility], 1538) [address]: Messenger Office/Techni tressa ID = [id number] for ASHLEY MATA POCT-GLUCOSE [id number] 11:55:00 Test Item Value Reference Range Interpretation Comments POC-GLUCOSE METER 171 mg/dL 70-110 H : TESTED A T [facility] 6720 ([employer]) (test code = [facility], 1538) [address]: Messenger Office/Techni tressa ID = [id number] for JERMAINE MATAE Vancomycin level, [id number] 11:02:00 Test Item Value Reference Range Interpretation Comments Vancomycin Tr (test code = 19.1 ug/mL 10-20 4092-3) STACY (test code = STACY) Messenger Office ID - WINNIE C Lab Interpretation (test Normal code = 72923-1) [facility], [id number] 11:02:00 Test Item Value Reference Range Interpretation Comments Vancomycin Tr (test code = 19.1 ug/mL 10.0-20.0 4092-3) STACY (test code = STACY) Messenger Office ID - WINNIE C Lab Interpretation (test Normal code = 12063-9) [facility] Center[facility], [id number] 11:02:00 Test Item Value Reference Range Interpretation Comments Vancomycin Tr (test code = 19.1 ug/mL 10.0-20.0 4092-3) STACY (test code = STACY) Messenger Office ID - WINNIE C Lab Interpretation (test Normal code = 65856-7) [facility] Center[facility] level, [id number] 11:02:00 Test Item Value Reference Range Interpretation Comments Vancomycin Tr (test code = 19.1 ug/mL 10.0-20.0 4092-3) STACY (test code = STACY) Messenger Office ID - WINNIE C Lab Interpretation (test Normal code = 94154-1) [facility] Center[facility]com[facility] level, [id number] 11:02:00 Test Item Value Reference Range Interpretation Comments Vancomycin Tr (test code = 19.1 ug/mL 10.0-20.0 4092-3) STACY (test code = STACY) Messenger Office ID - WINNIE C Lab Interpretation (test Normal code = 58248-8) [facility], [id number] 11:02:00 Test Item Value Reference Range Interpretation Comments Vancomycin Tr (test code = 19.1 ug/mL 10.0-20.0 4092-3) STACY (test code = STACY) Messenger Office ID - WINNIE C Lab Interpretation (test Normal code = 80214-6) [facility] [id number] 11:02:00 Test Item Value Reference Range Interpretation Comments VANCOMYCIN TROUGH (BEAKER) (test 19.1 ug/mL 10.0-20.0 code = 522) Messenger Office ID - WINNIE CCreatine Kinase (CK)2021-04-01 06:28:00 Test Item Value Reference Range Interpretation Comments Total CK (test code = 19 U/L 29-200 L 2157-6) STACY (test code = STACY) Messenger Office ID - CONCEPCIONAYA L Lab Interpretation (test Abnormal code = 64391-6) [facility] Center[facility]ine Kinase (CK)2021-04-01 06:28:00 Test Item Value Reference Range Interpretation Comments Total CK (test code = 19 U/L 29-200 L 2157-6) STACY (test code = STACY) Messenger Office ID - PIAYA L Lab Interpretation (test Abnormal code = 38610-6) [facility] CenterCreatine Kinase (CK)2021-04-01 06:28:00 Test Item Value Reference Range Interpretation Comments Total CK (test code = 19 U/L 29-200 L 2157-6) STACY (test code = STACY) Messenger Office ID - PIAYA L Lab Interpretation (test Abnormal code = 91436-5) [facility] CenterCreatine Kinase (CK)2021-04-01 06:28:00 Test Item Value Reference Range Interpretation Comments Total CK (test code = 19 U/L 29-200 L 2157-6) STACY (test code = STACY) Messenger Office ID - PIAYA L Lab Interpretation (test Abnormal code = 51088-4) [facility] CenterCreatine Kinase (CK)2021-04-01 06:28:00 Test Item Value Reference Range Interpretation Comments Total CK (test code = 19 U/L 29-200 L 2157-6) STACY (test code = STACY) Messenger Office ID - PIAYA L Lab Interpretation (test Abnormal code = 34935-3) [facility] CenterCreatine Kinase (CK)2021-04-01 06:28:00 Test Item Value Reference Range Interpretation Comments Total CK (test code = 19 U/L 29-200 L 2157-6) STACY (test code = STACY) Messenger Office ID - PIAYA L Lab Interpretation (test Abnormal code = 13011-8) [facility] CenterBASIC METABOLIC [id number] 06:28:00 Test Item Value Reference Range Interpretation [...] S NOT APPLICABLE FOR DIALYSIS PATIEN TS. Messenger Office ID - MERT LCREATINE KINASE (CK)2021-04-01 06:28:00 Test Item Value Reference Range Interpretation Comments CREATINE KINASE TOTAL (BEAKER) (test 19 U/L 29-200 L code = 380) Messenger Office ID - MERT LHepatic function [id number] 06:09:00 Test Item Value Reference Range Interpretation [...] 2.1 g/dL 3.5-5 L Specime n slightly 86531-6) hemolyzed Total Bilirubin (test 0.4 mg/dL 0.2-1.2 [...] 1742-6) hemolyzed STACY (test code = STACY) Messenger Office ID - MERT L Lab Interpretation Abnormal (test code = 36183-9) [facility] CenterPhosphorus2021-09-07 06:09:00 Test Item Value Reference Range Interpretation Comments Phosphorus (test code 2.9 mg/dL 2.3-4.7 Specim en = 2777-1) slightly hemolyzed STACY (test code = STACY) Messenger Office ID - MERT L Lab Interpretation Normal (test code = 61486-7) [facility] CenterHepatic function [id number] 06:09:00 Test Item Value Reference Range Interpretation [...] 2.1 g/dL 3.5-5.0 L Specime n slightly 54122-1) hemolyzed Total Bilirubin (test 0.4 mg/dL 0.2-1.2 [...] 1742-6) hemolyzed STACY (test code = STACY) Messenger Office ID - PIAYA L Lab Interpretation Abnormal (test code = 86063-2) [facility] CenterPhosphorus2021-09-07 06:09:00 Test Item Value Reference Range Interpretation Comments Phosphorus (test code 2.9 mg/dL 2.3-4.7 Specim en = 2777-1) slightly hemolyzed STACY (test code = STACY) Messenger Office ID - PIAYA L Lab Interpretation Normal (test code = 61580-5) [facility] CenterHepatic function [id number] 06:09:00 Test Item Value Reference Range Interpretation [...] 2.1 g/dL 3.5-5.0 L Specime n slightly 73953-1) hemolyzed Total Bilirubin (test 0.4 mg/dL 0.2-1.2 [...] 1742-6) hemolyzed STACY (test code = STACY) Messenger Office ID - PIAYA L Lab Interpretation Abnormal (test code = 48137-3) [facility] Center[facility]2021-09-07 06:09:00 Test Item Value Reference Range Interpretation Comments Phosphorus (test code 2.9 mg/dL 2.3-4.7 Specim en = 2777-1) slightly hemolyzed STACY (test code = STACY) Messenger Office ID - PIAYA L Lab Interpretation Normal (test code = 20525-8) [facility] CenterHepatic function [id number] 06:09:00 Test Item Value Reference Range Interpretation [...] 2.1 g/dL 3.5-5.0 L Specime n slightly 51687-2) hemolyzed Total Bilirubin (test 0.4 mg/dL 0.2-1.2 [...] 1742-6) hemolyzed STACY (test code = STACY) Messenger Office ID - PIAYA L Lab Interpretation Abnormal (test code = 95149-5) [facility] CenterPhosphorus2021-09-07 06:09:00 Test Item Value Reference Range Interpretation Comments Phosphorus (test code 2.9 mg/dL 2.3-4.7 Specim en = 2777-1) slightly hemolyzed STACY (test code = STACY) Messenger Office ID - PIAYA L Lab Interpretation Normal (test code = 53503-0) [facility] CenterHepatic function [id number] 06:09:00 Test Item Value Reference Range Interpretation [...] 2.1 g/dL 3.5-5.0 L Specime n slightly 79489-9) hemolyzed Total Bilirubin (test 0.4 mg/dL 0.2-1.2 [...] 1742-6) hemolyzed STACY (test code = STACY) Messenger Office ID - PIAYA L Lab Interpretation Abnormal (test code = 61419-2) [facility] CenterPhosphorus2021-09-07 06:09:00 Test Item Value Reference Range Interpretation Comments Phosphorus (test code 2.9 mg/dL 2.3-4.7 Specim en = 2777-1) slightly hemolyzed STACY (test code = STACY) Messenger Office ID - PIAYA L Lab Interpretation Normal (test code = 07366-2) [facility] CenterHepatic function [id number] 06:09:00 Test Item Value Reference Range Interpretation [...] 2.1 g/dL 3.5-5.0 L Specime n slightly 32766-9) hemolyzed Total Bilirubin (test 0.4 mg/dL 0.2-1.2 [...] 1742-6) hemolyzed STACY (test code = STACY) Messenger Office ID - PIAYA L Lab Interpretation Abnormal (test code = 44124-5) [facility] CenterPhosphorus2021-09-07 06:09:00 Test Item Value Reference Range Interpretation Comments Phosphorus (test code 2.9 mg/dL 2.3-4.7 Specim en = 2777-1) slightly hemolyzed STACY (test code = STACY) Messenger Office ID - PIAYA L Lab Interpretation Normal (test code = 15933-7) [facility] CenterMAGNESIUM2021-09-07 06:09:00 Test Item Value Reference Range Interpretation Comments MAGNESIUM (BEAKER) 1.5 mg/dL 1.6-2.6 L Specimen slightly (test code = 627) hemolyzed Messenger Office ID - PIAYA [id number] 06:09:00 Test Item Value Reference Range Interpretation Comments PHOSPHORUS (BEAKER) 2.9 mg/dL 2.3-4.7 Specimen slightly (test code = 604) hemolyzed Messenger Office ID - PIAYA LHEPATIC FUNCTION [id number] 06:09:00 Test Item Value Reference Range Interpretation [...] Specimen slightly (test code = 347) hemolyzed Messenger Office ID - PIAYA LC-REACTIVE [id number] 06:09:00 Test Item Value Reference Range Interpretation Comments C-REACTIVE PROTEIN (BEAKER) (test 2.48 mg/dL 0.00-0.50 H code = 676) Messenger Office ID - PIAYA LCalcium, [id number] 06:05:00 Test Item Value Reference Range Interpretation Comments Calcium, Ion (test code = 1993-09) 1.11 mmol/L 1.12-1.27 L pH, Blood (test code = 09280-7) 7.37 Lab Interpretation (test code = Abnormal 94806-0) [facility] CenterCalcium, [id number] 06:05:00 Test Item Value Reference Range Interpretation Comments Calcium, Ion (test code = 1993-09) 1.11 mmol/L 1.12-1.27 L pH, Blood (test code = 87216-3) 7.37 Lab Interpretation (test code = Abnormal 96487-1) [facility] CenterCalcium, [id number] 06:05:00 Test Item Value Reference Range Interpretation Comments Calcium, Ion (test code = 1993-09) 1.11 mmol/L 1.12-1.27 L pH, Blood (test code = 42989-9) 7.37 Lab Interpretation (test code = Abnormal 72655-9) [facility] CenterCalcium, [id number] 06:05:00 Test Item Value Reference Range Interpretation Comments Calcium, Ion (test code = 1993-09) 1.11 mmol/L 1.12-1.27 L pH, Blood (test code = 06035-8) 7.37 Lab Interpretation (test code = Abnormal 34312-7) [facility] CenterCalcium, [id number] 06:05:00 Test Item Value Reference Range Interpretation Comments Calcium, Ion (test code = 1993-09) 1.11 mmol/L 1.12-1.27 L pH, Blood (test code = 36136-4) 7.37 Lab Interpretation (test code = Abnormal 48062-8) [facility] CenterCalcium, [id number] 06:05:00 Test Item Value Reference Range Interpretation Comments Calcium, Ion (test code = 1993-09) 1.11 mmol/L 1.12-1.27 L pH, Blood (test code = 28054-7) 7.37 Lab Interpretation (test code = Abnormal 75593-9) [facility] CenterCALCIUM, [id number] 06:05:00 Test Item Value Reference Range Interpretation Comments CALCIUM IONIZED (BEAKER) (test 1.11 mmol/L 1.12-1.27 L code = 698) PH, BLOOD (BEAKER) (test code = 7.37 1810) POCT-GLUCOSE [id number] 05:57:00 Test Item Value Reference Range Interpretation Comments POC-GLUCOSE METER 134 mg/dL 70-110 H : TESTED A T [facility] 6720 (BEAKER) (test code = [facility], 1538) [address]: Messenger Office/Techni tressa ID = [id number] for KALPANA HANSEN CBC W/PLT COUNT & AUTO [id number] 05:52:00 Test Item Value Reference Range Interpretation [...] PERCENT (BEAKER) (test code = 2801) POCT-GLUCOSE [id number] 23:33:00 Test Item Value Reference Range Interpretation Comments POC-GLUCOSE METER 77 mg/dL 70-110 : TESTED A T [facility] 6720 (BEAKER) (test code = ROMINA Payne [facility], 1538) [address]: Messenger Office/Techni tressa ID = [id number] for Cart er (agency)Selin 2D Echo W/Doppler(CW/PW/Color)2021-03-31 17:56:10Ejection FractionSLEH ECHO HEARTLAB MKCKESSON CPACSInterface, External Ris In - 03/31/2021 5:56 PM C DTTransthoracic Echocardiography Report (TTE) Demographics Patient Name KEVIN HAMMOND Date of Study 03/30/2021 Gender Male Visit Number [id number] Race Unknown Room Number C628 Number Date of 1945 Referring Physician JD JEFFERSON Age 75 year(s) 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 3. Qqod-at-rwtlnyyb mitral regurgitation. Previous Study No prior exam [...] regurgitation. Mitral Valve Mild MV leaflet thickening. Xkhl-qo-oihogbgj mitral regurgitation. Tricuspid Valve Trace tricuspid regurgitation. [...] LVOT CO: 5.76 l/min LVOT CI: 2.89 l/min/m^2CHenry [facility]/Doppler(CW/PW/Color)2021-03-31 17:56:10Ejection FractionSLEH ECHO HEARTLAB [facility] W/Doppler(CW/PW/Color) 2021-03-31 17:56:10Ejection FractionSLEH ECHO HEARTLAB [facility] W/Doppler(CW/PW/Color)2021-03-31 17:56:10Ejection FractionSLEH ECHO HEARTLAB [facility] W/Doppler(CW/PW/Color)2021-03-31 17:56:10Ejection FractionSLEH ECHO HEARTLAB [facility] W/Doppler(CW/PW/Color) 2021-03-31 17:56:10Ejection FractionSLE ECHO HEARTLAB [facility] HospitalPOCT-GLUCOSE [id number] 15:39:00 Test Item Value Reference Range Interpretation Comments POC-GLUCOSE METER 81 mg/dL 70-110 : Notified RN/MD: TESTED (BEAKER) (test code AT [facility] [address] = 1538) [place], [address]: Messenger Office/Techni tressa ID = [id number] for Jose J (contract) Shola oralia [id number] 13:30:00 Test Item Value Reference Range Interpretation Comments MAGNESIUM (BEAKER) (test code = 1.4 mg/dL 1.6-2.6 L 627) Messenger Office ID - ERWIN [id number] 13:30:00 Test Item Value Reference Range Interpretation Comments PHOSPHORUS (BEAKER) (test code = 2.3 mg/dL 2.3-4.7 604) Messenger Office ID - ERWIN FHEPATIC FUNCTION [id number] 13:30:00 Test Item Value Reference Range Interpretation [...] (test code = 19 U/L 6-55 347) Messenger Office ID - ERWIN FCOMPREHENSIVE METABOLIC [id number] 13:30:00 Test Item Value Reference Range Interpretation [...] S NOT APPLICABLE FOR DIALYSIS PATIEN TS. Messenger Office ID Doron HOOD FVancomycin level, [id number] 13:28:00 Test Item Value Reference Range Interpretation Comments Vancomycin Rm (test 43.6 ug/mL code = 47994-7) STACY (test code = Reference Range: No STACY) NormalsOperator ID - ERWIN Calloway [facility] CenterVancomycin level, [id number] 13:28:00 Test Item Value Reference Range Interpretation Comments Vancomycin Rm (test 43.6 ug/mL code = 77366-0) STACY (test code = Reference Range: No STACY) NormalsOperator ID - [facility], [id number] 13:28:00 Test Item Value Reference Range Interpretation Comments Vancomycin Rm (test 43.6 ug/mL code = 89690-1) STACY (test code = Reference Range: No STACY) NormalsOperator ID - [facility], [id number] 13:28:00 Test Item Value Reference Range Interpretation Comments Vancomycin Rm (test 43.6 ug/mL code = 87335-0) STACY (test code = Reference Range: No STACY) NormalsOperator ID [facility], [id number] 13:28:00 Test Item Value Reference Range Interpretation Comments Vancomycin Rm (test 43.6 ug/mL code = 88932-7) STACY (test code = Reference Range: No STACY) NormalsOperator ID - [facility], [id number] 13:28:00 Test Item Value Reference Range Interpretation Comments Vancomycin Rm (test 43.6 ug/mL code = 52696-0) STACY (test code = Reference Range: No STACY) NormalsOperator ID [facility], [id number] 13:28:00 Test Item Value Reference Range Interpretation Comments VANCOMYCIN RANDOM (BEAKER) (test 43.6 ug/mL code = 523) Reference Range: No NormalsOperator ID ERWIN FCALCIUM, [id number] 13:24:00 Test Item Value Reference Range Interpretation Comments CALCIUM IONIZED (BEAKER) (test 1.09 mmol/L 1.12-1.27 L code = 698) PH, BLOOD (BEAKER) (test code = 7.38 1810) CBC W/PLT COUNT & AUTO [id number] 13:14:00 Test Item Value Reference Range Interpretation [...] PERCENT (BEAKER) (test code = 2801) POCT-GLUCOSE [id number] 12:20:00 Test Item Value Reference Range Interpretation Comments POC-GLUCOSE METER 81 mg/dL 70-110 : Notified RN/MD: TESTED (RENEA) (test code AT [facility] [address] = 1538) [facility], [address]: Messenger Office/Techni tressa ID = [id number] for Jose J (contract), Shola oralia POCT-GLUCOSE [id number] 10:10:00 Test Item Value Reference Range Interpretation Comments POC-GLUCOSE METER 90 mg/dL 70-110 : Notified RN/MD: TESTED (RENEA) (test code AT [facility] [address] = 1538) [facility], 770 30: Messenger Office/Techni tressa ID = [id number] for Jose J (contract), Shola oralia RAD, ABDOMEN/KUB, 1 VIEW [id number] 01:44:00For bedside G-tube study. Call radiology for KUB when gastroview, 60 cc syringe, and water for flushing are at the bedside and nursing is ready/Reason for exam:->G-tube studyShould this be performedat the bedside?->Yes [facility] 1945 Sex: MFINAL REPORT EXAM/TECHNIQUE: Supine radiograph of the abdomen. INDICATION: Abdominal radiography from 03/30/2021. COMPARISON: Abdominal radiography from 03/30/2021. FINDINGS: Gastrostomy tube is present there is contrast in the stomach and in the small bowel. No acute osseous process. Impression: Gastrostomy tube is in the stomach in the small bowel. Signed: Galileo Cuello [facility] Verified Date/Time: 03/31/2021 01:44:07 Electronically signed by: GALILEO CUELLO MD on03/31/2021 01:44 AMXR abdomen / KUB 1 [id number] 01:44:00Interface, External Ris In - 03/31/2021 1:47 [...] Galileo Cuello MDReport Verified Date/Time: 03/31/2021 01:44:07 [facility] BASIC METABOLIC [id number] 00:40:00 Test Item Value Reference Range Interpretation [...] S NOT APPLICABLE FOR DIALYSIS PATIEN TS. Messenger Office ID - DBPOCT-GLUCOSE [id number] 21:42:00 Test Item Value Reference Range Interpretation Comments POC-GLUCOSE METER 117 mg/dL 70-110 H : TESTED A T [facility] 6720 (BEAKER) (test code [facility], = 1538) [address]: Messenger Office/Techni tressa ID = [id number] for Kelsie anthony (agency)Marlo POCT-GLUCOSE [id number] 17:39:00 Test Item Value Reference Range Interpretation Comments POC-GLUCOSE METER 140 mg/dL 70-110 H : TESTED A T [facility] 6720 (BEAKER) (test code = [facility] [place], 1538) [address]: Messenger Office/Techni tressa ID = [id number] for AG UILARJOSE RAD, ABDOMEN/KUB, 1 VIEW [id number] 17:36:00Reason for exam:->peg placementShould this be performed at the bedside?->Yes [facility] : 1945 Sex: MFINAL [...] MDReport Verified Date/Time: 03/30/2021 17:36:33 Reading Location: [address] Consult Reading Room C METABOLIC [id number] 17:12:00 Test Item Value Reference Range Interpretation [...] S NOT APPLICABLE FOR DIALYSIS PATIEN TS. Messenger Office ID - DBPOCT-GLUCOSE [id number] 13:04:00 Test Item Value Reference Range Interpretation Comments POC-GLUCOSE METER 101 mg/dL 70-110 : TESTED A T [facility] 6720 (BEAKER) (test code = ROMINA Payne [facility], 1538) [address]: Messenger Office/Techni tressa ID = [id number] for JOSE JOHNSON U/S, RENAL, [id number] 11:52:00Reason for exam:->akiShould this be performed at the bedside?->Yes [facility] : 1945 Sex: MFINAL [...] MDReport Verified Date/Time: 03/30/2021 11:52:42 Reading Location[facility] C013 Consult Reading Room US renal [id number] 11:52:00Interface, External Ris In - 03/30/2021 11:54 [...] MDReport Verified Date/Time: 03/30/2021 11:52:42 Reading Location: [facility] B1 C013 Consult Reading Room [facility] CenterBASI METABOLIC [id number] 10:57:00 Test Item Value Reference Range Interpretation [...] S NOT APPLICABLE FOR DIALYSIS PATIEN TS. Messenger Office ID - AAHAMIDBASIC METABOLIC [id number] 05:59:00 Test Item Value Reference Range Interpretation [...] S NOT APPLICABLE FOR DIALYSIS PATIEN TS. Messenger Office ID - DBCREATINE KINASE (CK)2021-03-30 05:40:00 Test Item Value Reference Range Interpretation Comments CREATINE KINASE TOTAL (BEAKER) (test 43 U/L 29-200 code = 380) Messenger Office ID - [id number] 05:33:00 Test Item Value Reference Range Interpretation Comments MAGNESIUM (BEAKER) (test code = 1.4 mg/dL 1.6-2.6 L 627) Messenger Office ID - [id number] 05:33:00 Test Item Value Reference Range Interpretation Comments PHOSPHORUS (BEAKER) (test code = 1.6 mg/dL 2.3-4.7 L 604) Messenger Office ID - DBHEPATIC FUNCTION [id number] 05:33:00 Test Item Value Reference Range Interpretation [...] (test code = 8 U/L 6-55 347) Messenger Office ID - DBCREATINE KINASE (CK)2021-03-30 05:33:00 Test Item Value Reference Range Interpretation Comments CREATINE KINASE TOTAL (BEAKER) (test 42 U/L 29-200 code = 380) Messenger Office ID - DBC-REACTIVE [id number] 05:33:00 Test Item Value Reference Range Interpretation Comments C-REACTIVE PROTEIN (BEAKER) (test 10.11 mg/dL 0.00-0.50 H code = 676) Messenger Office ID - DBCALCIUM, [id number] 05:19:00 Test Item Value Reference Range Interpretation Comments CALCIUM IONIZED (BEAKER) (test 1.08 mmol/L 1.12-1.27 L code = 698) PH, BLOOD (BEAKER) (test code = 7.38 1810) POCT-GLUCOSE [id number] 05:14:00 Test Item Value Reference Range Interpretation Comments POC-GLUCOSE METER 127 mg/dL 70-110 H : TESTED A T [facility] 6720 (BEAKER) ([facility] = 1538[facility] [address]: Messenger Office/Techni tressa ID = [id number] for Kelsie anthony (agency)Marlo CBC W/PLT COUNT & AUTO [id number] 05:03:00 Test Item Value Reference Range Interpretation [...] PERCENT (BEAKER) (test code = 2801) POCT-GLUCOSE [id number] 23:51:00 Test Item Value Reference Range Interpretation Comments POC-GLUCOSE METER 135 mg/dL 70-110 H : TESTED A T [facility] 6720 (BEAKER) (test code [facility], = 1538) [address]: Messenger Office/Techni tressa ID = [id number] for Kelsie anthony (agency)Marlo Creatinine, random [id number] 22:56:00 Test Item Value Reference Range Interpretation Comments Creatinine, Ur 88.5 mg/dL (test code = 2161-8) STACY (test code = Reference Range: No STACY) NormalsOperator ID - DB [facility] [id number] 22:56:00 Test Item Value Reference Range Interpretation Comments Sodium Urine (test 80 meq/L code = 2955-3) STACY (test code = Reference Range: No STACY) NormalsOperator ID - DB [facility] CenterCreatinine, random [id number] 22:56:00 Test Item Value Reference Range Interpretation Comments Creatinine, Ur 88.5 mg/dL (test code = 2161-8) STACY (test code = Reference Range: No STACY) NormalsOperator ID - DB [facility] Centerodium, random [id number] 22:56:00 Test Item Value Reference Range Interpretation Comments Sodium Urine (test 80 meq/L code = 2955-3) STACY (test code = Reference Range: No STACY) NormalsOperator ID - DB [facility] CenterCreatinine, random [id number] 22:56:00 Test Item Value Reference Range Interpretation Comments Creatinine, Ur 88.5 mg/dL (test code = 2161-8) STACY (test code = Reference Range: No STACY) NormalsOperator ID - DB [facility] Centerodium, random [id number] 22:56:00 Test Item Value Reference Range Interpretation Comments Sodium Urine (test 80 meq/L code = 2955-3) STACY (test code = Reference Range: No STACY) NormalsOperator ID - DB [facility] CenterCreatinine, random [id number] 22:56:00 Test Item Value Reference Range Interpretation Comments Creatinine, Ur 88.5 mg/dL (test code = 2161-8) STACY (test code = Reference Range: No STACY) NormalsOperator ID - DB [facility] Centerodium, random [id number] 22:56:00 Test Item Value Reference Range Interpretation Comments Sodium Urine (test 80 meq/L code = 2955-3) STACY (test code = Reference Range: No STACY) NormalsOperator ID - DB [facility] CenterCreatinine, random [id number] 22:56:00 Test Item Value Reference Range Interpretation Comments Creatinine, Ur 88.5 mg/dL (test code = 2161-8) STACY (test code = Reference Range: No STACY) NormalsOperator ID - DB [facility] Centerodium, random [id number] 22:56:00 Test Item Value Reference Range Interpretation Comments Sodium Urine (test 80 meq/L code = 2955-3) STACY (test code = Reference Range: No STACY) NormalsOperator ID - DB [facility] CenterCreatinine, random [id number] 22:56:00 Test Item Value Reference Range Interpretation Comments Creatinine, Ur 88.5 mg/dL (test code = 2161-8) STACY (test code = Reference Range: No STACY) NormalsOperator ID - DB [facility] Centerodium, random [id number] 22:56:00 Test Item Value Reference Range Interpretation Comments Sodium Urine (test 80 meq/L code = 2955-3) STACY (test code = Reference Range: No STACY) NormalsOperator ID - DB [facility] CenterCREATININE, RANDOM [id number] 22:56:00 Test Item Value Reference Range Interpretation Comments CREATININE URINE (BEAKER) (test 88.5 mg/dL code = 375) Reference Range: No NormalsOperator ID - DBSODIUM, RANDOM [id number] 22:56:00 Test Item Value Reference Range Interpretation Comments SODIUM URINE (BEAKER) (test code = 80 meq/L 243) Reference Range: No NormalsOperator ID - DBOsmolality, [id number] 22:15:00 Test Item Value Reference Range Interpretation Comments Osmolality Serum (test 344 See_Comment H [Aut omated message] code = 2692-2) The system [employer] generated this result transmitted ref erence range: 275 - 29 5 mOsm/kg. The reference range was not used to int erpret this result as normal/abnormal . Lab Interpretation (test Abnormal code = 97417-7) [facility] CenterOsm[facility], [id number] 22:15:00 Test Item Value Reference Range Interpretation Comments Osmolality Serum (test 344 See_Comment H [Aut omated message] code = 2692-2) The system [employer] generated this result transmitted ref erence range: 275 - 29 5 mOsm/kg. The reference range was not used to int erpret this result as normal/abnormal . Lab Interpretation (test Abnormal code = 29205-7) [facility], [id number] 22:15:00 Test Item Value Reference Range Interpretation Comments Osmolality Serum (test 344 See_Comment H [Aut omated message] code = 2692-2) The system [employer] generated this result transmitted ref erence range: 275 - 29 5 mOsm/kg. The reference range was not used to int erpret this result as normal/abnormal . Lab Interpretation (test Abnormal code = 58187-5) [facility] CenterOsmdwightlity, [id number] 22:15:00 Test Item Value Reference Range Interpretation Comments Osmolality Serum (test 344 See_Comment H [Aut omated message] code = 2692-2) The [employer] generated this result transmitted ref erence range: 275 - 29 5 mOsm/kg. The reference range was not used to int erpret this result as normal/abnormal . Lab Interpretation (test Abnormal code = 83803-4) [facility], [id number] 22:15:00 Test Item Value Reference Range Interpretation Comments Osmolality Serum (test 344 See_Comment H [Aut omated message] code = 2692-2) The system [employer] generated this result transmitted ref erence range: 275 - 29 5 mOsm/kg. The reference range was not used to int erpret this result as normal/abnormal . Lab Interpretation (test Abnormal code = 05244-7) [facility] CenterOsmolality, [id number] 22:15:00 Test Item Value Reference Range Interpretation Comments Osmolality Serum (test 344 See_Comment H [Aut omated message] code = 2692-2) The system [employer] generated this result transmitted ref erence range: 275 - 29 5 mOsm/kg. The reference range was not used to int erpret this result as normal/abnormal . Lab Interpretation (test Abnormal code = 00921-9) [facility] CenterOSMOLATY, [id number] 22:15:00 Test Item Value Reference Range Interpretation Comments OSMOLALITY, SERUM (BEAKER) (test 344 mOsm/kg 275-295 H code = 615) BASIC METABOLIC [id number] 22:15:00 Test Item Value Reference Range Interpretation [...] S NOT APPLICABLE FOR DIALYSIS PATIEN TS. Messenger Office ID - DBOsmolality, [id number] 22:10:00 Test Item Value Reference Range Interpretation Comments Osmolality, Ur (test code 769 See_Comment [ Automated message] = 2695-5) The system [employer] generated this result transmitted ref erence range: 50-1,200 mOsm/kg mOsm/kg . The reference range was not used to int erpret this result as normal/abnormal . Lab Interpretation (test Normal code = 42952-7) [facility], [id number] 22:10:00 Test Item Value Reference Range Interpretation Comments Osmolality, Ur (test code 769 See_Comment [ Automated message] = 2695-5) The system [employer] generated this result transmitted ref erence range: 50-1,200 mOsm/kg mOsm/kg . The reference range was not used to int erpret this result as normal/abnormal . Lab Interpretation (test Normal code = 89693-5) [facility], [id number] 22:10:00 Test Item Value Reference Range Interpretation Comments Osmolality, Ur (test code 769 See_Comment [ Automated message] = 2695-5) The system [employer] generated this result transmitted ref erence range: 50-1,200 mOsm/kg mOsm/kg . The reference range was not used to int erpret this result as normal/abnormal . Lab Interpretation (test Normal code = 94240-9) [facility], [id number] 22:10:00 Test Item Value Reference Range Interpretation Comments Osmolality, Ur (test code 769 See_Comment [ Automated message] = 2695-5) The system [employer] generated this result transmitted ref erence range: 50-1,200 mOsm/kg mOsm/kg . The reference range was not used to int erpret this result as normal/abnormal . Lab Interpretation (test Normal code = 30203-0) [facility], [id number] 22:10:00 Test Item Value Reference Range Interpretation Comments Osmolality, Ur (test code 769 See_Comment [ Automated message] = 2695-5) The system [employer] generated this result transmitted ref erence range: 50-1,200 mOsm/kg mOsm/kg . The reference range was not used to int erpret this result as normal/abnormal . Lab Interpretation (test Normal code = 26128-2) [facility], [id number] 22:10:00 Test Item Value Reference Range Interpretation Comments Osmolality, Ur (test code 769 See_Comment [ Automated message] = 2695-5) The system [employer] generated this result transmitted ref erence range: 50-1,200 mOsm/kg mOsm/kg . The reference range was not used to int erpret this result as normal/abnormal . Lab Interpretation (test Normal code = 51815-6) [facility] CenterOSMOLALITY, [id number] 22:10:00 Test Item Value Reference Range Interpretation Comments OSMOLALITY URINE 769 mOsm/kg See_Comment [Automated message] (BEAKER) (test code = The sy stem which 614) generated this result transmitted ref erence range: 50-1,200 mOsm/kg. The reference range was not used to int erpret this result as normal/abnormal . Protein, random [id number] 18:44:00 Test Item Value Reference Range Interpretation Comments Protein, Urine (test code = <68 0-14 H 2888-6) STACY (test code = STACY) Messenger Office ID - DB Lab Interpretation (test Abnormal code = 24024-3) [facility] CenterProtein, random [id number] 18:44:00 Test Item Value Reference Range Interpretation Comments Protein, Urine (test code = <68 0-14 H 2888-6) STACY (test code = STACY) Messenger Office ID - DB Lab Interpretation (test Abnormal code = 57672-4) [facility] CenterProtein, random [id number] 18:44:00 Test Item Value Reference Range Interpretation Comments Protein, Urine (test code = <68 0-14 H 2888-6) STACY (test code = STACY) Messenger Office ID - DB Lab Interpretation (test Abnormal code = 77710-0) [facility] CenterProtein, random [id number] 18:44:00 Test Item Value Reference Range Interpretation Comments Protein, Urine (test code = <68 0-14 H 2888-6) STACY (test code = STACY) Messenger Office ID - DB Lab Interpretation (test Abnormal code = 33777-1) [facility] CenterProtein, random [id number] 18:44:00 Test Item Value Reference Range Interpretation Comments Protein, Urine (test code = <68 0-14 H 2888-6) STACY (test code = STACY) Messenger Office ID - DB Lab Interpretation (test Abnormal code = 56440-7) [facility] CenterProtein, random [id number] 18:44:00 Test Item Value Reference Range Interpretation Comments Protein, Urine (test code = <68 0-14 H 2888-6) STACY (test code = STACY) Messenger Office ID - DB Lab Interpretation (test Abnormal code = 27943-8) [facility] CenterPROTEIN, RANDOM [id number] 18:44:00 Test Item Value Reference Range Interpretation Comments PROTEIN, URINE (BEAKER) (test code = < mg/dL 0-14 H 1569) Messenger Office ID - DBCREATININE, RANDOM [id number] 18:22:00 Test Item Value Reference Range Interpretation Comments CREATININE URINE (BEAKER) (test 105.0 mg/dL code = 375) Reference Range: No NormalsOperator ID - DBSODIUM, RANDOM [id number] 18:22:00 Test Item Value Reference Range Interpretation Comments SODIUM URINE (BEAKER) (test code = 47 meq/L 243) Reference Range: No NormalsOperator ID - DBOSMOLALITY, [id number] 18:03:00 Test Item Value Reference Range Interpretation Comments OSMOLALITY URINE 662 mOsm/kg See_Comment [Automated message] (BEAKER) (test code = The sy stem which 614) generated this result transmitted ref erence range: 50-1,200 mOsm/kg. The reference range was not used to int erpret this result as normal/abnormal . POCT-GLUCOSE [id number] 17:36:00 Test Item Value Reference Range Interpretation Comments POC-GLUCOSE METER 146 mg/dL 70-110 H : TESTED A T [facility] 6720 (BEAKER) (test code = [facility], 1538) [address]: Messenger Office/Techni tressa ID = [id number] for Analisa hickstamiko (contract)Yuli BASIC METABOLIC [id number] 17:08:00 Test Item Value Reference Range Interpretation [...] S NOT APPLICABLE FOR DIALYSIS PATIEN TS. Messenger Office ID - AAHAMIDValproic acid level, [id number] 17:07:00 Test Item Value Reference Range Interpretation Comments Valproic Acid, Total <2 50-100 L (test code = 4086-5) STACY (test code = STACY) Therapeutic range for some clinical conditions may be >100 ug/mLOperator ID - AAHAMID Lab Interpretation (test Abnormal code = 43946-7) [facility] CenterPhenytoin level, [id number] 17:07:00 Test Item Value Reference Range Interpretation Comments Phenytoin (test code = <0.5 10-20 L 3968-5) STACY (test code = STACY) Messenger Office ID - AAHAMID Lab Interpretation (test Abnormal code = 16446-4) [facility] CenterValproic acid level, [id number] 17:07:00 Test Item Value Reference Range Interpretation Comments Valproic Acid, Total <2 50-100 L (test code = 4086-5) STACY (test code = TSACY) Therapeutic range for some clinical conditions may be >100 ug/mLOperator ID - AAHAMID Lab Interpretation (test Abnormal code = 27681-1) [facility] CenterPhenytoin level, [id number] 17:07:00 Test Item Value Reference Range Interpretation Comments Phenytoin (test code = <0.5 10.0-20.0 L 3968-5) STACY (test code = STACY) Messenger Office ID - AAHAMID Lab Interpretation (test Abnormal code = 65702-4) [facility] CenterValproic acid level, [id number] 17:07:00 Test Item Value Reference Range Interpretation Comments Valproic Acid, Total <2 50-100 L (test code = 4086-5) STACY (test code = STACY) Therapeutic range for some clinical conditions may be >100 ug/mLOperator ID - AAHAMID Lab Interpretation (test Abnormal code = 49448-2) [facility] CenterPhenytoin level, [id number] 17:07:00 Test Item Value Reference Range Interpretation Comments Phenytoin (test code = <0.5 10.0-20.0 L 3968-5) STACY (test code = STACY) Messenger Office ID - AAHAMID Lab Interpretation (test Abnormal code = 36973-7) [facility] CenterValproic acid level, [id number] 17:07:00 Test Item Value Reference Range Interpretation Comments Valproic Acid, Total <2 50-100 L (test code = 4086-5) STACY (test code = STACY) Therapeutic range for some clinical conditions may be >100 ug/mLOperator ID - AAHAMID Lab Interpretation (test Abnormal code = 81012-7) [facility] CenterPhenytoin level, [id number] 17:07:00 Test Item Value Reference Range Interpretation Comments Phenytoin (test code = <0.5 10.0-20.0 L 3968-5) STACY (test code = STACY) Messenger Office ID - AAHAMID Lab Interpretation (test Abnormal code = 80256-7) [facility] CenterValproic acid level, [id number] 17:07:00 Test Item Value Reference Range Interpretation Comments Valproic Acid, Total <2 50-100 L (test code = 4086-5) STACY (test code = STACY) Therapeutic range for some clinical conditions may be >100 ug/mLOperator ID - AAHAMID Lab Interpretation (test Abnormal code = 91600-0) [facility] CenterPhenytoin level, [id number] 17:07:00 Test Item Value Reference Range Interpretation Comments Phenytoin (test code = <0.5 10.0-20.0 L 3968-5) STACY (test code = STACY) Messenger Office ID - AAHAMID Lab Interpretation (test Abnormal code = 12244-4) [facility] CenterValproic acid level, [id number] 17:07:00 Test Item Value Reference Range Interpretation Comments Valproic Acid, Total <2 50-100 L (test code = 4086-5) STACY (test code = STACY) Therapeutic range for some clinical conditions may be >100 ug/mLOperator ID - AAHAMID Lab Interpretation (test Abnormal code = 48166-1) [facility] CenterPhenytoin level, [id number] 17:07:00 Test Item Value Reference Range Interpretation Comments Phenytoin (test code = <0.5 10.0-20.0 L 3968-5) STACY (test code = STACY) Messenger Office ID - AAHAMID Lab Interpretation (test Abnormal code = 82779-2) [facility] CenterVALPROIC ACID LEVEL, [id number] 17:07:00 Test Item Value Reference Range Interpretation Comments VALPROIC ACID TOTAL (BEAKER) (test < ug/mL 50-100 L code = 924) Therapeutic range for some clinical conditions may be >100 ug/mLOperator ID - AAHAMIDPHENYTOIN LEVEL, [id number] 17:07:00 Test Item Value Reference Range Interpretation Comments PHENYTOIN (DILANTIN) (BEAKER) (test < ug/mL 10.0-20.0 L code = 605) Messenger Office ID - AAHAMIDBASIC METABOLIC [id number] 13:35:00 Test Item Value Reference Range Interpretation [...] S NOT APPLICABLE FOR DIALYSIS PATIEN TS. Messenger Office ID - AAHAMIDPOCT-GLUCOSE [id number] 12:55:00 Test Item Value Reference Range Interpretation Comments POC-GLUCOSE METER 113 mg/dL 70-110 H : TESTED A T [facility] 6720 (BEAKER) (test code = [facility], 1538) [address]: Messenger Office/Techni tressa ID = [id number] for Analisa monroy (contract), Yuli [place] BASIC METABOLIC [id number] 10:00:00 Test Item Value Reference Range Interpretation [...] S NOT APPLICABLE FOR DIALYSIS PATIEN TS. Messenger Office ID - AAHAMIDB-type Natriuretic Factor (BNP)2021-03-29 09:49:00 Test Item Value Reference Range Interpretation Comments BNP (test code = 99505-2) 315 pg/mL 0-100 H STACY (test code = STACY) Messenger Office ID - AAHAMID Lab Interpretation (test Abnormal code = 90573-0) [facility] CenterB[facility] (BNP)2021-03-29 09:49:00 Test Item Value Reference Range Interpretation Comments BNP (test code = 72553-2) 315 pg/mL 0-100 H STACY (test code = STACY) Messenger Office ID - AAHAMID Lab Interpretation (test Abnormal code = 50856-0) [facility] CenterB[facility] Nat[facility] Factor (BNP)2021-03-29 09:49:00 Test Item Value Reference Range Interpretation Comments BNP (test code = 43737-5) 315 pg/mL 0-100 H STACY (test code = STACY) Messenger Office ID - AAHAMID Lab Interpretation (test Abnormal code = 83243-2) [facility] CenterB[facility] Nat[facility] Factor (BNP)2021-03-29 09:49:00 Test Item Value Reference Range Interpretation Comments BNP (test code = 31906-4) 315 pg/mL 0-100 H STACY (test code = STACY) Messenger Office ID - AAHAMID Lab Interpretation (test Abnormal code = 44240-9) [facility] CenterB[facility] Nat[facility] Factor (BNP)2021-03-29 09:49:00 Test Item Value Reference Range Interpretation Comments BNP (test code = 96674-6) 315 pg/mL 0-100 H STACY (test code = STACY) Messenger Office ID - AAHAMID Lab Interpretation (test Abnormal code = 00874-9) [facility] CenterB[facility] (BNP)2021-03-29 09:49:00 Test Item Value Reference Range Interpretation Comments BNP (test code = 13778-1) 315 pg/mL 0-100 H STACY (test code = STACY) Messenger Office ID - AAHAMID Lab Interpretation (test Abnormal code = 48879-4) [facility] CenterB-TYPE NATRIURETIC FACTOR (BNP)2021-03-29 09:49:00 Test Item Value Reference Range Interpretation Comments B-TYPE NATRIURETIC PEPTIDE (BEAKER) 315 pg/mL 0-100 H (test code = 700) Messenger Office ID - AASTEPHANYIDVANCOMYCIN LEVEL, [id number] 09:45:00 Test Item Value Reference Range Interpretation Comments VANCOMYCIN RANDOM (BEAKER) (test 6.7 ug/mL code = 523) Reference Range: No NormalsOperator ID - AAHAMIDManual Hmbzykiimqka5500-21-97 07:17:00 Test Item Value Reference Range Interpretation [...] = 3438) STACY (test code = STACY) Messenger Office ID - Daisy Franklin comments: Slide comments: Lab Interpretation Abnormal (test code = 77391-8) [facility] CenterManual [id number] 07:17:00 Test Item Value Reference Range Interpretation [...] = 3438) STACY (test code = STACY) Messenger Office ID - Daisy DaihalterUser comments: Slide comments: Lab Interpretation Abnormal (test code = 29318-7) [facility] Ufrmbgxknoyq1215-28-04 07:17:00 Test Item Value Reference Range Interpretation [...] = 3438) STACY (test code = STACY) Messenger Office ID - Daisy ChristensenterUser comments: Slide comments: Lab Interpretation Abnormal (test code = 53892-3) [facility] [id number] 07:17:00 Test Item Value Reference Range Interpretation [...] = 3438) STACY (test code = STACY) Messenger Office ID - Daisy Franklin comments: Slide comments: Lab Interpretation Abnormal (test code = 36704-4) [facility] Xicenwscfmrd0927-80-53 07:17:00 Test Item Value Reference Range Interpretation [...] = 3438) STACY (test code = STACY) Messenger Office ID - Daisy Franklin comments: Slide comments: Lab Interpretation Abnormal (test code = 28554-9) [facility] Tzvrrdhqpgqh5623-56-57 07:17:00 Test Item Value Reference Range Interpretation [...] = 3438) STACY (test code = STACY) Messenger Office ID - Daisy Franklin comments: Slide comments: Lab Interpretation Abnormal (test code = 66972-5) [facility] W/PLT COUNT & AUTO [id number] 07:17:00 Test Item Value Reference Range Interpretation [...] CONCENTRATION Adequate (CELLAVISION)(BEAKER) (test code = 3438) Messenger Office ID - Daisy Franklin comments: Slide comments:TSH/Free T4 If Iqxlvccyb0465-77-03 06:43:00 Test Item Value Reference Range Interpretation Comments TSH (test code = 1.408 See_Comment [Automated 39910-8) message] The system which generated this result transmit saulo reference range : 0.350 - 4.940 uIU/mL. The reference range was not used to interpret this result as normal/abnormal . STACY (test code = STACY) Messenger Office ID - AME White Lab Interpretation Normal (test code = 38274-6) [facility]/Free T4 If Aqohijnbh1266-15-38 06:43:00 Test Item Value Reference Range Interpretation Comments TSH (test code = 1.408 See_Comment [Automated 21012-5) message] The system which generated this result transmit saulo reference range : 0.350 - 4.940 uIU/mL. The reference range was not used to interpret this result as normal/abnormal . STACY (test code = STACY) Messenger Office ID - AME White Lab Interpretation Normal (test code = 93930-5) [facility]/Free T4 If Shvbhjbnb2554-18-17 06:43:00 Test Item Value Reference Range Interpretation Comments TSH (test code = 1.408 See_Comment [Automated 71150-3) message] The system which generated this result transmit saulo reference range : 0.350 - 4.940 uIU/mL. The reference range was not used to interpret this result as normal/abnormal . STACY (test code = STACY) Messenger Office ID - AME White Lab Interpretation Normal (test code = 47541-9) [facility]/Free T4 If Wzbrkgclx4183-74-33 06:43:00 Test Item Value Reference Range Interpretation Comments TSH (test code = 1.408 See_Comment [Automated 24121-7) message] The system which generated this result transmit saulo reference range : 0.350 - 4.940 uIU/mL. The reference range was not used to interpret this result as normal/abnormal . STACY (test code = STACY) Messenger Office ID - AME White Lab Interpretation Normal (test code = 56857-9) [facility]/Free T4 If Jikeewjmu7792-78-52 06:43:00 Test Item Value Reference Range Interpretation Comments TSH (test code = 1.408 See_Comment [Automated 87351-1) message] The system which generated this result transmit saulo reference range : 0.350 - 4.940 uIU/mL. The reference range was not used to interpret this result as normal/abnormal . STACY (test code = STACY) Messenger [employer] ID - AME M Lab Interpretation Normal (test code = 14726-6) [facility]/Free T4 If [id number] 06:43:00 Test Item Value Reference Range Interpretation Comments TSH (test code = 1.408 See_Comment [Automated 28062-8) message] The system which generated this result transmit saulo reference range : 0.350 - 4.940 uIU/mL. The reference range was not used to interpret this result as normal/abnormal . STACY (test code = STACY) [employer] ID - AME M Lab Interpretation Normal (test code = 98486-8) [facility]/FREE T4 IF [id number] 06:43:00 Test Item Value Reference Range Interpretation Comments THYROID STIMULATING HORMONE 1.408 uIU/mL 0.350-4.940 (BEAKER) (test code = 772) [employer] ID - AME MBASIC METABOLIC [id number] 06:03:00 Test Item Value Reference Range Interpretation [...] S NOT APPLICABLE FOR DIALYSIS PATIEN TS. Messenger [employer] ID - DBURINALYSIS W/ REFLEX URINE [id number] 03:52:00 Test Item Value Reference Range Interpretation [...] = 1521) SOURCE(BEAKER) (test code = 2795) [employer] ID - [auto]Mess[employer] ID - techLactic acid, [id number] 23:23:00 Test Item Value Reference Range Interpretation Comments Lactate, Venous (test code = 1.97 mmol/L 0.5-2.2 2872) STACY (test code = STACY) Messenger [facility] ID - DB Lab Interpretation (test Normal code = 10729-2) [facility] [id number] 23:23:00 Test Item Value Reference Range Interpretation Comments Lactate, Venous (test code = 1.97 mmol/L 0.50-2.20 2872) STACY (test code = STACY) Messenger [facility] ID - DB Lab Interpretation (test Normal code = 56544-9) [facility], [id number] 23:23:00 Test Item Value Reference Range Interpretation Comments Lactate, Venous (test code = 1.97 mmol/L 0.50-2.20 2872) STACY (test code = STACY) Messenger [facility] ID - DB Lab Interpretation (test Normal code = 40883-0) [facility], [id number] 23:23:00 Test Item Value Reference Range Interpretation Comments Lactate, Venous (test code = 1.97 mmol/L 0.50-2.20 2872) STACY (test code = STACY) [employer] [facility] ID - DB Lab Interpretation (test Normal code = 10543-6) [facility], [id number] 23:23:00 Test Item Value Reference Range Interpretation Comments Lactate, Venous (test code = 1.97 mmol/L 0.50-2.20 2872) STACY (test code = STACY) Messenger [employer] ID - DB Lab Interpretation (test Normal code = 81372-7) [facility] [id number] 23:23:00 Test Item Value Reference Range Interpretation Comments Lactate, Venous (test code = 1.97 mmol/L 0.50-2.20 2872) STACY (test code = STACY) Messenger Office ID - DB Lab Interpretation (test Normal code = 22615-7) [facility] [id number] 23:23:00 Test Item Value Reference Range Interpretation Comments LACTATE BLOOD VENOUS (2) (BEAKER) 1.97 mmol/L 0.50-2.20 (test code = 2872) Messenger Office ID - [id number] 23:21:00 Test Item Value Reference Range Interpretation [...] exclusion of thrombosis is within 95-100% range. PT/[id number] 23:19:00 Test Item Value Reference Interpretation Comments [...] PTT (test code = 35.1 See_Comment [Automated 11534-5) message] The system which generated this result [...] valves. Lab Interpretation Abnormal (test code = 05011-2) [facility][id number] 23:19:00 Test Item Value Reference Interpretation Comments [...] PTT (test code = 35.1 See_Comment [Automated 53608-6) message] The system which generated this result [...] valves. Lab Interpretation Abnormal (test code = 73897-4) [facility]/[id number] 23:19:00 Test Item Value Reference Interpretation Comments [...] PTT (test code = 35.1 See_Comment [Automated 62766-0) message] The system which generated this result [...] valves. Lab Interpretation Abnormal (test code = 61035-0) [facility]/[id number] 23:19:00 Test Item Value Reference Interpretation Comments [...] PTT (test code = 35.1 See_Comment [Automated 23053-0) message] The system which generated this result [...] valves. Lab Interpretation Abnormal (test code = 22260-4) [facility]/[id number] 23:19:00 Test Item Value Reference Interpretation Comments [...] PTT (test code = 35.1 See_Comment [Automated 76994-4) message] The system which generated this result [...] valves. Lab Interpretation Abnormal (test code = 36949-9) [facility]/[id number] 23:19:00 Test Item Value Reference Interpretation Comments [...] PTT (test code = 35.1 See_Comment [Automated 95363-0) message] The system which generated this result [...] valves. Lab Interpretation Abnormal (test code = 68304-4) [facility]PT/[id number] 23:19:00 Test Item Value Reference Range Interpretation [...] for patients with mechanical heart valves.COMPREHENSIVE METABOLIC [id number] 23:14:00 Test Item Value Reference Range Interpretation [...] S NOT APPLICABLE FOR DIALYSIS PATIEN TS. Messenger Office ID - DBBlood gas, [id number] 23:12:00 Test Item Value Reference Range Interpretation Comments pH, Arterial (test code 7.52 7.35-7.45 H = 2744-1) pCO2, Arterial (test 28 See_Comment L [Autom ated message] code = 2019-8) The system [employer] generated this result transmit saulo reference range : 35 - 45 mm Hg. The reference range was not used to interpret this result as normal/abnormal . pO2, Arterial (test 186 See_Comment H [Automa saulo message] code = 2703-7) The system [employer] generated this result transmit saulo reference range [...] 44 Lab Interpretation Abnormal (test code = 82370-4) [facility] Center[facility], [id number] 23:12:00 Test Item Value Reference Range Interpretation Comments pH, Arterial (test code 7.52 7.35-7.45 H = 2744-1) pCO2, Arterial (test 28 See_Comment L [Autom ated message] code = 2019-) The system [employer] generated this result transmit saulo reference range : 35 - 45 mm Hg. The reference range was not used to interpret this result as normal/abnormal . pO2, Arterial (test 186 See_Comment H [Automa saulo message] code = 2703-7) The system [employer] generated this result transmit saulo reference range [...] 44 Lab Interpretation Abnormal (test code = 90330-9) [facility] Center[facility], [id number] 23:12:00 Test Item Value Reference Range Interpretation Comments pH, Arterial (test code 7.52 7.35-7.45 H = 2744-1) pCO2, Arterial (test 28 See_Comment L [Autom ated message] code = 2019-02) The system [employer] generated this result transmit saulo reference range : 35 - 45 mm Hg. The reference range was not used to interpret this result as normal/abnormal . pO2, Arterial (test 186 See_Comment H [Automa saulo message] code = 2703-7) The system [employer] generated this result transmit saulo reference range [...] 44 Lab Interpretation Abnormal (test code = 84326-6) [facility] Center[facility], [id number] 23:12:00 Test Item Value Reference Range Interpretation Comments pH, Arterial (test code 7.52 7.35-7.45 H = 2744-1) pCO2, Arterial (test 28 See_Comment L [Autom ated message] code = 2019-8) The system [employer] generated this result transmit saulo reference range : 35 - 45 mm Hg. The reference range was not used to interpret this result as normal/abnormal . pO2, Arterial (test 186 See_Comment H [Automa saulo message] code = 2703-7) The system [employer] generated this result transmit saulo reference range [...] 44 Lab Interpretation Abnormal (test code = 82591-7) [facility] gas, [id number] 23:12:00 Test Item Value Reference Range Interpretation Comments pH, Arterial (test code 7.52 7.35-7.45 H = 2744-1) pCO2, Arterial (test 28 See_Comment L [Autom ated message] code = 2018-) The system [employer] generated this result transmit saulo reference range : 35 - 45 mm Hg. The reference range was not used to interpret this result as normal/abnormal . pO2, Arterial (test 186 See_Comment H [Automa saulo message] code = 2703-7) The system [employer] generated this result transmit saulo reference range [...] 44 Lab Interpretation Abnormal (test code = 24041-4) [facility], [id number] 23:12:00 Test Item Value Reference Range Interpretation Comments pH, Arterial (test code 7.52 7.35-7.45 H = 2744-1) pCO2, Arterial (test 28 See_Comment L [Autom ated message] code = 2019-8) The system [facility] generated this result transmit saulo reference range : 35 - 45 mm Hg. The reference range was not used to interpret this result as normal/abnormal . pO2, Arterial (test 186 See_Comment H [Automa saulo message] code = 2703-7) The system [employer] generated this result transmit saulo reference range [...] 44 Lab Interpretation Abnormal (test code = 51673-1) [facility] GAS, [id number] 23:12:00 Test Item Value Reference Range Interpretation [...] (BEAKER) (test code = 1819) 44.0 CALCIUM, [id number] 23:12:00 Test Item Value Reference Range Interpretation Comments CALCIUM IONIZED (BEAKER) (test 1.08 mmol/L 1.12-1.27 L code = 698) PH, BLOOD (BEAKER) (test code = 7.51 1810) [id number] 23:10:00 Test Item Value Reference Range Interpretation Comments MAGNESIUM (BEAKER) 1.8 mg/dL 1.6-2.6 Specimen slightly (test code = 627) hemolyzed Messenger Office ID - [id number] 23:10:00 Test Item Value Reference Range Interpretation Comments PHOSPHORUS (BEAKER) 2.8 mg/dL 2.3-4.7 Specimen slightly (test code = 604) hemolyzed Messenger Office ID - DBCREATINE KINASE (CK)2021-03-28 23:10:00 Test Item Value Reference Range Interpretation Comments CREATINE KINASE TOTAL (BEAKER) (test 23 U/L 29-200 L code = 380) Messenger Office ID - DBC-REACTIVE [id number] 23:10:00 Test Item Value Reference Range Interpretation Comments C-REACTIVE PROTEIN (BEAKER) (test 14.35 mg/dL 0.00-0.50 H code = 676) Messenger Office ID - DBCBC (Hemogram only)2021-03-28 23:08:00 Test Item Value Reference Range Interpretation Comments WBC (test code = 6690-2) 11.6 See_Comment H [A utomated message] The system [employer] generated this result transmitted ref erence range: 3.5 - 10 .5 K/L. The refe rence range was not u sed to interpret this result as normal/abnor mal. RBC (test code = 789-8) 3.69 See_Comment L [Au tomated message] The system [employer] generated this result transmitted ref erence range: 4.63 - 6 .08 M/L. The refe rence range was not u sed to interpret this result as normal/abnor mal. MCHC (test code = 786-4) 29.6 See_Comment L [A utomated message] The system [employer] generated this result transmitted ref erence range: [...] See_Comment [Aut omated message] 777-3) The system [employer] generated this result transmitted ref erence range: 150 - 45 0 K/CU MM. The referen ce range was not u sed to interpret this result as normal/abnor mal. MPV (test code = 10.5 fL 9.4-12.4 89067-2) nRBC (test code = 413) 0 See_Comment [Aut omated message] The system [employer] generated this result transmitted ref erence range: 0 - 0 /1 00 WBC. The refere nce range was not u sed to interpret this result as normal/abnor mal. Lab Interpretation (test Abnormal code = 58316-9) [facility]21-[facility]-28 23:08:00 Test Item Value Reference Range Interpretation Comments WBC (test code = 6690-2) 11.6 See_Comment H [A utomated message] The system [employer] generated this result transmitted ref erence range: 3.5 - 10 .5 K/L. The refe rence range was not u sed to interpret this result as normal/abnor mal. RBC (test code = 789-8) 3.69 See_Comment L [Au tomated message] The system [employer] generated this result transmitted ref erence range: 4.63 - 6 .08 M/L. The refe rence range was not u sed to interpret this result as normal/abnor mal. MCHC (test code = 786-4) 29.6 See_Comment L [A utomated message] The system [employer] generated this result transmitted ref erence range: [...] See_Comment [Aut omated message] 777-3) The system [employer] generated this result transmitted ref erence range: 150 - 45 0 K/CU MM. The referen ce range was not u sed to interpret this result as normal/abnor mal. MPV (test code = 10.5 fL 9.4-12.4 76005-4) nRBC (test code = 413) 0 See_Comment [Aut omated message] The system [employer] generated this result transmitted ref erence range: 0 - 0 /1 00 WBC. The refere nce range was not u sed to interpret this result as normal/abnor mal. Lab Interpretation (test Abnormal code = 18185-5) [facility] 23:08:00 Test Item Value Reference Range Interpretation Comments WBC (test code = 6690-2) 11.6 See_Comment H [A utomated message] The system [employer] generated this result transmitted ref erence range: 3.5 - 10 .5 K/L. The refe rence range was not u sed to interpret this result as normal/abnor mal. RBC (test code = 789-8) 3.69 See_Comment L [Au tomated message] The system [employer] generated this result transmitted ref erence range: 4.63 - 6 .08 M/L. The refe rence range was not u sed to interpret this result as normal/abnor mal. MCHC (test code = 786-4) 29.6 See_Comment L [A utomated message] The system [employer] generated this result transmitted ref erence range: [...] See_Comment [Aut omated message] 777-3) The system [employer] generated this result transmitted ref erence range: 150 - 45 0 K/CU MM. The referen ce range was not u sed to interpret this result as normal/abnor mal. MPV (test code = 10.5 fL 9.4-12.4 38863-2) nRBC (test code = 413) 0 See_Comment [Aut omated message] The system [employer] generated this result transmitted ref erence range: 0 - 0 /1 00 WBC. The refere nce range was not u sed to interpret this result as normal/abnor mal. Lab Interpretation (test Abnormal code = 16578-3) [facility]-28 23:08:00 Test Item Value Reference Range Interpretation Comments WBC (test code = 6690-2) 11.6 See_Comment H [A utomated message] The system [employer] generated this result transmitted ref erence range: 3.5 - 10 .5 K/L. The refe rence range was not u sed to interpret this result as normal/abnor mal. RBC (test code = 789-8) 3.69 See_Comment L [Au tomated message] The system [employer] generated this result transmitted ref erence range: 4.63 - 6 .08 M/L. The refe rence range was not u sed to interpret this result as normal/abnor mal. MCHC (test code = 786-4) 29.6 See_Comment L [A utomated message] The system [employer] generated this result transmitted ref erence range: [...] See_Comment [Aut omated message] 777-3) The system [employer] generated this result transmitted ref erence range: 150 - 45 0 K/CU MM. The referen ce range was not u sed to interpret this result as normal/abnor mal. MPV (test code = 10.5 fL 9.4-12.4 88749-2) nRBC (test code = 413) 0 See_Comment [Aut omated message] The system [employer] generated this result transmitted ref erence range: 0 - 0 /1 00 WBC. The refere nce range was not u sed to interpret this result as normal/abnor mal. Lab Interpretation (test Abnormal code = 08209-5) [facility] 23:08:00 Test Item Value Reference Range Interpretation Comments WBC (test code = 6690-2) 11.6 See_Comment H [A utomated message] The system [employer] generated this result transmitted ref erence range: 3.5 - 10 .5 K/L. The refe rence range was not u sed to interpret this result as normal/abnor mal. RBC (test code = 789-8) 3.69 See_Comment L [Au tomated message] The system [employer] generated this result transmitted ref erence range: 4.63 - 6 .08 M/L. The refe rence range was not u sed to interpret this result as normal/abnor mal. MCHC (test code = 786-4) 29.6 See_Comment L [A utomated message] The system [employer] generated this result transmitted ref erence range: [...] See_Comment [Aut omated message] 777-3) The system [employer] generated this result transmitted ref erence range: 150 - 45 0 K/CU MM. The referen ce range was not u sed to interpret this result as normal/abnor mal. MPV (test code = 10.5 fL 9.4-12.4 29147-8) nRBC (test code = 413) 0 See_Comment [Aut omated message] The system [employer] generated this result transmitted ref erence range: 0 - 0 /1 00 WBC. The refere nce range was not u sed to interpret this result as normal/abnor mal. Lab Interpretation (test Abnormal code = 31761-8) [facility] 23:08:00 Test Item Value Reference Range Interpretation Comments WBC (test code = 6690-2) 11.6 See_Comment H [A utomated message] The system [employer] generated this result transmitted ref erence range: 3.5 - 10 .5 K/L. The refe rence range was not u sed to interpret this result as normal/abnor mal. RBC (test code = 789-8) 3.69 See_Comment L [Au tomated message] The system [employer] generated this result transmitted ref erence range: 4.63 - 6 .08 M/L. The refe rence range was not u sed to interpret this result as normal/abnor mal. MCHC (test code = 786-4) 29.6 See_Comment L [A utomated message] The system [employer] generated this result transmitted ref erence range: [...] See_Comment [Aut omated message] 777-3) The system [employer] generated this result transmitted ref erence range: 150 - 45 0 K/CU MM. The referen ce range was not u sed to interpret this result as normal/abnor mal. MPV (test code = 10.5 fL 9.4-12.4 69216-8) nRBC (test code = 413) 0 See_Comment [Aut omated message] The system [employer] generated this result transmitted ref erence range: 0 - 0 /1 00 WBC. The refere nce range was not u sed to interpret this result as normal/abnor mal. Lab Interpretation (test Abnormal code = 52069-7) [facility] (HEMOGRAM ONLY)2021-03-28 23:08:00 Test Item Value [...] code = 413) RAD, ABDOMEN/KUB, 1 VIEW [id number] 22:32:00Reason for exam:->PEG tubeReason for exam:->Distended abdomen [facility] 1945 Sex: MFINAL [...] MDReport Verified Date/Time: 03/28/2021 22:32:51 Reading Location: [address] ConsultReading Room RAD, CHEST, 1 VIEW, NON [id number] 22:25:00Reason for exam:->COVID PNA [facility] : 1945 Sex: MFINAL [...] 22:25:25 XR chest 1 view portable / [id number] 22:25:00Interface, External Ris In - 03/28/2021 10:27 [...] by: SASHA WONG MD on 03/28/2021 10:25 [facility]:13[facility]00 Test Item Value Reference Range Interpretation Comments AMMONIA (test code = AMM) 93 umol/L 11-32 H
== END 2022-02-04 17:24 | DRG 871 ==
LOC: ER 17:32 → ERHOLD 22:18 → 4TH 02-03 08:08 → 2ND 02-03 21:12
PROVIDERS: ADMIT Hospitalist; ATTEND Hospitalist
DX: A41.9 Sepsis, unspecified organism (principal); L89.154 Pressure ulcer of sacral region, stage 4; G92.9 Unspecified toxic encephalopathy; U07.1 COVID-19; N39.0 Urinary tract infection, site not specified; N17.9 Acute kidney failure, unspecified; I48.20 Chronic atrial fibrillation, unspecified; R65.20 Severe sepsis without septic shock; L89.312 Pressure ulcer of right buttock, stage 2; G30.9 Alzheimer's disease, unspecified; F02.80 Dementia in other diseases classified elsewhere, unspecified severity, without behavioral disturbance, psychotic disturbance, mood disturbance, and anxiety; F31.9 Bipolar disorder, unspecified; I10 Essential (primary) hypertension; G40.909 Epilepsy, unspecified, not intractable, without status epilepticus; E03.9 Hypothyroidism, unspecified; E78.5 Hyperlipidemia, unspecified; Z88.0 Allergy status to penicillin
CPT/HCPCS: 36415; 71045; 80048; 80061; 81003; 81015; 83605; 83735; 84145; 84439; 84443; 85025; 87040; 87070; 87077; 87086; 87088; 87186; 87205; 96374; 97112; 97161; 99284; J1650; J2185; J3370; J3475; J7030; J7040; J7050; J8540; U0003

== ENCOUNTER 2023-05-11 10:04 | Emergency (ER) | payer OTHER ==
[2023-05-11] MEDS ORDERED: Calcium Chloride 10% INJ SYR IV ONE (10:05)
[2023-05-11] MEDS ORDERED: AMIODARONE HCL 150 MG/3 ML INJ IV ONE (10:05)
[2023-05-11] MEDS ORDERED: EPINEPHrine 1 MG/10 ML SYR IV ONE (10:05)
[2023-05-11] MEDS ORDERED: NA CHLORIDE 0.9% 1,000 ML IV ONE (10:05)
--- OUTSIDE RECORDS SUMMARY | 2023-05-11 10:21 | XMS REPORT | Continuity of Care Document ---
:1945 Author Organization [facility] t Address [address] [place] [address] [address] [place] [address] Care Team Providers Name Role Phone Pcp MD, No Primary Care Physician Unavailable JESSICA CHAMBERS Attending Clinician Unavailable GC_[email or web address]_J Attending Clinician Unavailable UNKNOWN Attending Clinician Unavailable KNOW, DOES_NOT Attending Clinician Unavailable Sarah Sanchez Attending Clinician [phone] Geovanni Kumar Attending Clinician [phone] ASYA Attending Clinician Unavailable October Attending Clinician [phone] GC_BAHC_[email or web address]_G Attending Clinician Unavailable Jay Meyer MD, Jessica Iraheta Attending Clinician [phone] Sancho Gregory MD, Jordan Worthy Attending Clinician [phone] Caterina GONZÁLES, Renata Em Attending Clinician Nelli GONZÁLES, Daphney Attending Clinician Librado Aleman Attending Clinician JESSICA CHAMBERS Admitting Clinician Unavailable GC_BAHC_Todd_Kristine Admitting Clinician Unavailable ASYA Admitting Clinician Unavailable GC_BAHC_[email or web address]_G Admitting Clinician Unavailable Payers Payer Name Policy Type Policy Number Effective Date Expiration Date S ource [place] [id number] 2004 [employer] 00:00:00 [place] [id number] 2021 [place] 00:00:00 (MEDICAID REPLACEMENT - [place] [id number] [place] Problems Condition Condition Condition Status Onset Resolution Last Treating Co mments Source Name Details Category Date Date Treatment Clinician Date Valproate Valproate Problem Active Mikaela via level low Level Low 5-01 Medi nilson 00:00: 00 Phenytoin Phenytoin Problem Active Mikaela via level low Level Low 5-01 Medi nilson 00:00: 00 Catheter-a Catheter-a Problem Active P [facility] ssociated ssociated 11-23 Medi nilson urinary Urinary 00:00: tract Tract 00 infection Infection Infection Infection Problem Active Mikaela via due to Due to 11-23 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 [address] baumannii Baumannii Acute Acute Problem Active [facility] urinary Urinary 4-27 Medical tract Tract 00:00: infection Infection 00 Urinary Urinary Problem Active [facility] tract Tract 4-27 Medical infection Infection 00:00: caused by Caused by 00 Streptococ Streptococ cus cus agalactiae Agalactiae Unintentio Unintentio Problem Active [facility] nal weight nal Weight 4-02 Me dical loss Loss 00:00: 00 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 00:00: disorder Disorder 00 Bed-ridden Bed-ridden Problem Active P [facility] 1-04 Medical 00:00: 00 Hyperammon Hyperammon Problem Active 2021-07 [facility] emia emia 2-30 Medical 00:00: 00 Chronic Chronic Problem Active 2021-07 [facility] kidney Kidney 2-30 Medical disease Disease 00:00: stage 3 Stage 3 00 Pruritus Pruritus Problem Active 2021-07 [facility] of skin of Skin 1-17 Medical 00:00: 00 Moderate Moderate Problem Active 2021-07 [facility] protein-ca Protein-ca 0-09 Me dical blaise blaise 00:00: malnutriti Malnutriti 00 on (weight on (Weight for age for Age 60-74 60-74 percent of Percent of standard) Standard) Lives in a Lives in a Problem Active [facility] nursing Nursing 8-29 Medical home Home 00:00: 00 Need for Need for Problem Active [facility] personal Personal 8-29 Medica l care Care 00:00: assistance Assistance 00 Irritant Irritant Problem Active [facility] contact Contact 8-18 Medical dermatitis Dermatitis 00:00: due to Due to 00 contact Contact with urine with Urine and/or And/or feces Feces Hypoalbumi Hypoalbumi Problem Active [facility] nemia due nemia Due 8-18 Medi nilson to protein to Protein 00:00: calorie Calorie 00 malnutriti Malnutriti on on Hypertensi Hypertensi Problem Active [facility] ve heart ve Heart 5-15 Medica l disease Disease 00:00: 00 Coronary Coronary Problem Active [facility] atheroscle Atheroscle 5-15 Me dical rosis rosis 00:00: 00 Hemiplegia Hemiplegia Problem Active [facility] as late as Late 5-15 Medical effect of Effect of 00:00: cerebrovas Cerebrovas 00 cular cular accident Accident Low blood Low Blood Problem Active Mikaela via pressure Pressure 5-15 Medica l 00:00: 00 Impaired Impaired Problem Active [facility] wound Wound 5-15 Medical healing Healing 00:00: 00 Contractur Contractur Problem Active [facility] e of e of 5-15 Medical muscle of Muscle of 00:00: right Right 00 lower leg Lower Leg Hypercoagu Hypercoagu Problem Active [facility] lability lability 5-05 Medica l state State 00:00: 00 Right Right Problem Active [facility] hemiplegia Hemiplegia 5-05 Me dical 00:00: 00 Opioid Opioid Problem Active [facility] dependence Dependence 5-05 Me dical with with 00:00: current Current 00 use Use Senile Senile Problem Active [facility] purpura Purpura 4-14 Medical 00:00: 00 Contractur Contractur Problem Active [facility] e of joint e of Joint 4-14 Me dical 00:00: 00 Functional Functional Problem Active [facility] quadripleg Quadripleg 4-14 Me dical ia ia 00:00: 00 Hypothyroi Hypothyroi Problem Active 2022-0 [facility] dism dism 4-13 Medical 00:00: 00 Vitamin Vitamin Problem Active [facility] deficiency Deficiency 4-13 Me dical 00:00: 00 Hyperlipid Hyperlipid Problem Active [facility] emia emia 4-13 Medical 00:00: 00 Chronic Chronic Problem Active [facility] pain Pain 4-13 Medical syndrome Syndrome 00:00: 00 Epilepsy Epilepsy Problem Active [facility] a 4-13 Medical 00:00: 00 Paroxysmal Paroxysmal Problem Active [facility] atrial Atrial 4-13 Medical fibrillati Fibrillati 00:00: on on 00 Gastroesop Gastroesop Problem Active [facility] hageal hageal 4-13 Medical reflux Reflux 00:00: disease Disease 00 Pressure Pressure Problem Active [facility] injury of Injury of 4-13 Medi nilson sacral Sacral 00:00: region of Region of 00 back Back Osteoarthr Osteoarthr Problem Active [facility] itis itis 4-13 Medical 00:00: 00 Recurrent Recurrent Problem Active Mikaela via falls Falls 4-13 Medical 00:00: 00 Acute Acute Disease Recurre [facility] hypoxemic hypoxemic nce 9-03 [facility] respirator respirator 00:00: Me dical y failure y failure 00 Cent er UTI UTI Disease Active [facility] (urinary (urinary 03-28 [facility] tract tract 00:00: Medical infection) infection) 00 Ce nter COVID-19 COVID-19 Disease [facility] Disorder Disorder Problem Active 2019-02-03 [facility] of of 08-09 11:44:46 l refraction refraction 00:00: He rmann AND/OR AND/OR 00 accommodat accommodat ion ion (disorder) (disorder) Active 08/09/2012 Problem 02/03/2019 Data migrated from [place] on 12/22/14. 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 [facility] Pseudophak Problem Active 2019-02-03 M emoria ia Pseudophak -15 11:44:46 l (disorder) ia 00:00: Roverto n (disorder) 00 Active 08/09/2012 Problem 02/03/2019 Data migrated from [place] on 12/22/14. [facility] Visual Visual Problem Active 2019-02-03 Clive jose field field 1-15 11:44:46 l defect defect 00:00: Cristian (finding) (finding) 00 Active 08/09/2012 Problem 02/03/2019 Data migrated from [place] on 12/22/14. 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 [facility] Dementia Dementia Problem Active 2019-02-03 [facility] (disorder) (disorder) 11:44:46 l Active [place] Problem 02/03/2019 [facility] Hypertensi Hypertens Problem Active 2019-02-03 [facility] ve mckenzie 11:44:46 l disorder, disorder, Herm cassy systemic systemic arterial arterial (disorder) (disorder) Active Problem 02/03/2019 Data migrated from [place] on 12/22/14. 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 [facility] Parkinsoni Parkinson Problem Active 2019-02-03 [facility] sm ism 11:44:46 l (disorder) (disorder) He rmann Active Problem 02/03/2019 [facility] Allergies, Adverse Reactions, Alerts Allergy Allergy Status Severity Reaction(s) Onset Inactive Treating Comm ents Source Name Type Date Date Clinician Penicill Drug Active Anaphylaxis [facility] PENICILL Allergy Active High Anaphylaxis [facility] Penicill Drug Active Anaphylaxis [facility] NO KNOWN Allergy Active [facility] S penicill penicill Active [facility] a ins<sup> ins<sup> l 1</sup> 1</sup> Cristian penicill penicill Active [facility] a in in l Cristian rabies rabies Active [facility] immune immune l globulin globulin Roverto n , , human<mojica human<mojica p>2</sup p>2</sup > > rabies rabies Active [facility] vaccine vaccine l Cristian PENICILL Allergy Active Anaphylaxis Pr [facility]ia INS to Medical substanc e Social History Social Habit Start Date Stop Date Quantity Comments Source Exposure to Not sure [facility] SARS-CoV-2 (event) Medica l [place] Sex Ass[birth year] [facility] [place] [facility] 00:00:00 00:00:00 Medical Center Smoking Status Start Date Stop Date Source Social History [facility] Medications Ordered Filled Start Stop Current Ordering Indication Dosage Frequency Signature Comments Components Source Medication Medication Date Date Medication? Clinician (SIG) Name Name Cipro 500 Cipro 500 2021-07 No 1 Q12H Cipro 500 [facility] mg tablet mg tablet 2-26 mg tablet Medical Take 1 Take 1 00:00: Take 1 tablet tablet 00 tablet every 12 every 12 every 12 hours by hours by hours by oral route oral route oral route for 7 days. for 7 days. for 7 days. Cipro 500 Cipro 500 2021-07 No 1 Q12H Cipro 500 [facility] mg tablet mg tablet 2-26 mg tablet Medical Take 1 Take 1 00:00: Take 1 tablet tablet 00 tablet every 12 every 12 every 12 hours by hours by hours by oral route oral route oral route for 7 days. for 7 days. for 7 days. multivitami 2021- No 1{tbl} QD Take [address] n 04-03 tablet by [facility] ([facility]istasAN) 00:00: 23:59 mouth Medi nilson tablet 00 :00 daily. [place] multivitami 2021- No 1{tbl} QD Take [address] n 04-03 tablet by [facility] ([facility]istasAN) 00:00: 23:59 mouth Medi nilson tablet 00 :00 daily. [place] multivitami 2021- No 1{tbl} QD Take [address] n 04-03 tablet by [facility] ([facility]) 00:00: 23:59 mouth Medi nilson tablet 00 :00 daily. [place] multivitami 2021- No 1{tbl} QD Take [address] n 04-03 tablet by [facility] ([facility]) 00:00: 23:59 mouth Medi nilson tablet 00 :00 daily. [place] multivitade 2021- No 1{tbl} QD Take [address] n 04-03 tablet by [facility] ([facility]) 00:00: 23:59 mouth Medi nilson tablet 00 :00 daily. [place] multivitami 2021- No 1{tbl} QD Take [address] n 04-03 tablet by [employer] (THERL[facility]VistasAN) 00:00: 23:59 mouth Medi nilson tablet 00 :00 daily. [place] ascorbic 2020- No 250mg QD Take 1 [facility] acid, 04-03 tablet [facility] vitamin C, 00:00: 23:59 (250 mg Med [...] for Medical HALF-STRENG 00 :00 7 days [facility],) 0.25 % -Sacrum: external Cleanse solution with 0.25% Dakins solution and pack with 0.25% Dakins wet to dry dressing. Cover with Allevyn foam dressing daily.. sodium 2020- No QD Apply [facility] hypochlorit 04-03 topically Fern [facility] (DAKIN'S, 00:00: 23:59 daily for Medical HALF-STRENG 00 :00 7 days [facility],) 0.25 % -Sacrum: external Cleanse solution with 0.25% Dakins solution and pack with 0.25% Dakins wet to dry dressing. Cover with Allevyn foam dressing daily.. sodium 2020- No QD Apply [facility] hypochlorit 04-03 topically Fern kes e (DAKIN'S, 00:00: 23:59 daily for Medical HALF-STRENG 00 :00 7 days [facility],) 0.25 % -Sacrum: external Cleanse solution with 0.25% Dakins solution and pack with 0.25% Dakins wet to dry dressing. Cover with Allevyn foam dressing daily.. sodium 2020- No QD Apply [facility] hypochlorit 04-03 topically Fern kes e (DAKIN'S, 00:00: 23:59 daily for Medical HALF-STRENG 00 :00 7 days [facility],) 0.25 % -Sacrum: external Cleanse solution with 0.25% Dakins solution and pack with 0.25% Dakins wet to dry dressing. Cover with Allevyn foam dressing daily.. sodium 2020- No QD Apply [facility] hypochlorit 04-03 topically Fern kes e (DAKIN'S, 00:00: 23:59 daily for Medical HALF-STRENG 00 :00 7 days [facility],) 0.25 % -Sacrum: external Cleanse solution with 0.25% Dakins solution and pack with 0.25% Dakins wet to dry dressing. Cover with Allevyn foam dressing daily.. sodium 2020- No QD Apply [facility] hypochlorit 04-03 topically Fern kes e (DAKIN'S, 00:00: 23:59 daily for Medical HALF-STRENG 00 :00 7 days [facility],) 0.25 % -Sacrum: external Cleanse solution [...] I St en-codeine 04-02 tablet by Joss stinson (TYLENOL 18:23: mouth [...] -200 unit per tablet phenytoin 2021-0 Yes Q.[id number] Take by [facility] (DILANTIN) 9-08 [id number] mouth 3 [facility] 100 MG ER 18:23: [...] needed for Itching. ipratropium 0 Yes 500ug Q.[id number] Take [address] [facility] (ATROVENT) 9-08 [id number] mcg by L ukes 0.02 % 18:23: [...] 35 Center packet gabapentin 2020-0 Yes 100mg Q.[id number] Take [address] [facility] (NEURONTIN) 9-08 [id number] mg by L ukes 100 MG 18:23: [...] mg(1,250mg) -200 unit per tablet phenytoin Yes Q.[id number] Take by [facility] (DILANTIN) 9-08 [id number] mouth 3 [facility] 100 MG ER 18:23: 3D (three) Medic al capsule 35 times Center daily. docusate 2021-0 Yes 100mg Q.5D Take [address] [facility] [facility] [...] needed for Itching. ipratropium 2020-0 Yes 500ug Q.[id number] Take [address] [facility] [address] (ATROVENT) 9-08 [id number] mcg by L ukes 0.02 % 18:23: [...] 35 Center packet gabapentin 2020-0 Yes 100mg Q.[id number] Take [address] [facility] [address] (NEURONTIN) 9-08 [id number] mg by L ukes 100 MG 18:23: 3D mouth 3 Medical capsule 35 (three) Center times daily. potassium 2021-0 Yes 10meq QD Take [address] [facility] [...] mg(1,250mg) -200 unit per tablet phenytoin Yes Q.[id number] Take by [facility] (DILANTIN) 9-08 [id number] mouth 3 [facility] 100 MG ER 18:23: [...] needed for Itching. ipratropium 0 Yes 500ug Q.[id number] Take [address] [facility] [address] (ATROVENT) 9-08 [id number] mcg by L ukes 0.02 % 18:23: [...] 35 Center packet gabapentin 0 Yes 100mg Q.[id number] Take [address] [facility] [address] (NEURONTIN) 9-08 [id number] mg by L ukes 100 MG 18:23: 3D mouth 3 Medical capsule 35 (three) Center times daily. potassium 0 Yes 10meq QD Take [address] [facility] chloride 9-08 mEq by [facility] (KLOR-CON) 18:23: mouth Medica l 10 MEQ CR 35 daily. Center tablet levothyroxi 2021-0 Yes 150ug Take [address] [...] [address] [facility] carbonate-v 9-08 tablet by Rafeal es itamin D3 18:23: mouth Medical (calcium-vi 35 daily. Center tamin D) 500 mg(1,250mg) -200 unit per tablet phenytoin 0 Yes Q.[id number] Take by [facility] (DILANTIN) 9-08 [id number] mouth 3 [facility] 100 MG ER 18:23: [...] as needed for Itching. ipratropium Yes 500ug Q.[id number] Take [address] [facility] (ATROVENT) 9-08 [id number] mcg by L ukes 0.02 % 18:23: [...] gram 35 Center packet gabapentin Yes 100mg Q.[id number] Take [address] [facility] (NEURONTIN) 9-08 [id number] mg by L ukes 100 MG 18:23: [...] 4%) patch Medical Medication 35 BID . [place] calcium Yes 1{tbl} QD Take [address] [facility] [address] carbonate-v 9-08 tablet by Rafael es itamin D3 18:23: mouth Medical (calcium-vi 35 daily. Center tamin D) 500 mg(1,250mg) -200 unit per tablet phenytoin Yes Q.[id number] Take by [facility] (DILANTIN) 9-08 [id number] mouth 3 [facility] 100 MG ER 18:23: [...] needed for Itching. ipratropium 0 Yes 500ug Q.[id number] Take [address] [facility] (ATROVENT) 9-08 [id number] mcg by L ukes 0.02 % 18:23: [...] 35 Center packet gabapentin 0 Yes 100mg Q.[id number] Take [address] [facility] [address] (NEURONTIN) 9-08 [id number] mg by L ukes 100 MG 18:23: [...] -200 unit per tablet phenytoin 0 Yes Q.[id number] Take by [facility] (DILANTIN) 9-08 [id number] mouth 3 [facility] 100 MG ER 18:23: [...] MG tablet 18:23: daily. Medica l 35 [place] furosemide 0 Yes 20mg QD Take [address] (LASIX) 20 9-08 by mouth [facility] MG tablet 18:23: daily. Medica l 35 Center hydrOXYzine 0 Yes 25mg Take [address] [facility] (ATARAX) 25 9-08 by mouth 3 Fern kes MG tablet 18:23: (three) Medic al 35 times Center daily as needed for Itching. ipratropium 0 Yes 500ug Q.[id number] Take [address] [facility] (ATROVENT) 9-08 [id number] mcg by L ukes 0.02 % 18:23: [...] 35 Center packet gabapentin 0 Yes 100mg Q.[id number] Take [address] [facility] (NEURONTIN) 9-08 [id number] mg by L ukes 100 MG 18:23: [...] mg/5 mL daily. (5 mL) solution acetaminoph 2021-0 Yes 1{tbl} Take [address] en-codeine -08 tablet by Joss stinson (TYLENOL 18:23: mouth [...] St carbonate-v - tablet by Rafael es itamin D3 18:23: mouth Medical (calcium-vi 35 daily. Center tamin D) 500 mg(1,250mg) -200 unit per tablet phenytoin 2020-0 Yes Q.[id number] Take by [facility] (DILANTIN) 9- [id number] mouth 3 [facility] 100 MG ER 18:23: [...] needed for Itching. ipratropium 2020-0 Yes 500ug Q.[id number] Take [address] [facility] (ATROVENT) 9-08 [id number] mcg by L ukes 0.02 % 18:23: [...] 35 Center packet gabapentin 0 Yes 100mg Q.[id number] Take [address] [facility] [address] (NEURONTIN) 9-08 [id number] mg by L ukes 100 MG 18:23: [...] mL daily. (5 mL) solution famotidine 0 1- No 20mg Take [address] [facility] (PEPCID) 20 9-08 10-08 tablet (20 L ukes MG tablet 00:00: 23:59 mg total) Me dical 00 :00 by mouth Center every 12 (twelve) hours for 30 days. cholecalcif 2021-0 2021- No 2000U QD Take 1 CH [...] (twelve) hours for 30 days. cholecalcif 2020-0 1- No 2000U QD Take 1 CH I [...] 12 (twelve) hours for 30 days. cholecalcif 2021-0 2021- No 2000U QD Take [address] byron, 04-02 tablet [facility] vitamin D3, 00:00: 23:59 (2,000 Med ical 2,000 unit 00 :00 Units Center Tab total) by mouth daily for 30 days. famotidine 202-0 2021- No 20mg Take [address] [facility] (PEPCID) 20 04-02 tablet (20 L ukes MG tablet 00:00: 23:59 mg total) Me dical 00 :00 by mouth Center every 12 (twelve) hours for 30 days. cholecalcif 2020-2020- No 2000U QD Take 1 CH I [...] Q.5D Take [address] (MINOCIN,DY 9-08 09-22 capsule Luke s NACIN) 100 00:00: 23:59 [...] (two) times daily for 14 days. ciprofloxac 0 2020- No 500mg Q.5D Take 1 CH [...] times daily for 14 days. dexAMETHaso 2020- 2021- No 6mg QD Take [address] [facility] ne 04-02 tablet (6 [facility] (DECADRON) 00:00: 23:59 mg total) M edical 6 MG tablet 00 :00 by mouth Cent er daily for 5 days. dexAMETHaso 2020- 2021- No 6mg QD Take 1 [facility] [...] er daily for 5 days. dexAMETHaso 2020- 2021- No 6mg QD Take 1 [facility] [...] er daily for 5 days. dexAMETHaso 2020- 2021- No 6mg QD Take [address] [facility] ne 04-02 tablet (6 [facility] (DECADRON) 00:00: 23:59 mg total) M edical 6 MG tablet 00 :00 by mouth Cent er daily for 5 days. apixaban Yes TWICE [facility] (ELIQUIS) 5-23 DAILY [facility] 2.5 mg Tab 00:00: Medical tablet 00 [place] apixaban Yes TWICE [facility] (ELIQUIS) 5-23 DAILY [facility] 2.5 mg Tab 00:00: Medical tablet 00 [place] apixaban Yes TWICE [facility] (ELIQUIS) 5-23 DAILY [facility] 2.5 mg Tab 00:00: Medical tablet 00 [place] apixaban Yes TWICE [facility] (ELIQUIS) 5-23 DAILY [facility] 2.5 mg Tab 00:00: Medical tablet 00 [place] apixaban Yes TWICE [facility] (ELIQUIS) 5-23 DAILY [facility] 2.5 mg Tab 00:00: Medical tablet 00 [place] apixaban Yes TWICE [facility] (ELIQUIS) 5-23 DAILY [facility] 2.5 mg Tab 00:00: Medical tablet 00 [place] apixaban Yes TWICE [facility] (ELIQUIS) 5-23 DAILY [facility] 2.5 mg Tab 00:00: Medical tablet 00 [place] amLODIPine Yes DAILY [facility] (NORVASC) 5-04 [facility] 2.5 MG 00:00: Medical tablet 00 [place] amLODIPine Yes DAILY [facility] (NORVASC) 5-04 [facility] 2.5 MG 00:00: Medical tablet 00 [place] amLODIPine Yes DAILY [facility] (NORVASC) 5-04 [facility] 2.5 MG 00:00: Medical tablet 00 [place] amLODIPine Yes DAILY [facility] (NORVASC) 5-04 [facility] 2.5 MG 00:00: Medical tablet 00 [place] amLODIPine Yes DAILY [facility] (NORVASC) 5-04 [facility] 2.5 MG 00:00: Medical tablet 00 [place] amLODIPine Yes DAILY [facility] (NORVASC) 5-04 [facility] 2.5 MG 00:00: Medical tablet 00 [place] amLODIPine Yes DAILY [facility] (NORVASC) 5-04 [facility] 2.5 MG 00:00: Medical tablet 00 [place] Donepezil 2018-1 Yes 10 mg = 1 Mem oria hydrochlori 0-11 tab, PO, l de 10 MG 16:23: Bedtime, # Her andre Oral Tablet 00 30 tab, 0 [Aricept] Refill(s) Aspirin 81 2017-07 Yes 81 mg = 1 Me moria MG Enteric 0-11 tab, PO, l Coated 16:23: Daily, # Cristian Tablet 00 90 tab, 3 Refill(s) Actonel 35 2017-07 Yes 35 mg = 1 Me moria mg oral 0-11 tab, PO, l tablet 16:23: qWeek, # 4 [place] nn 00 tab, 0 Refill(s) Acetaminoph 2017-07 Yes 1 tab, PO, Memoria en 325 MG / 0-11 Q8H, PRN l Hydrocodone 16:23: Pain, # 60 Cristian Bitartrate 00 tab, 0 5 MG Oral Refill(s) Tablet [[place] 5/325] Seroquel 2017-07 Yes See Memoria 0-11 Instructio l 16:23: ns, 1/2 of [place] 00 75 mg tab PO QHS, 0 Refill(s) metoprolol 2017-07 Yes 50 mg = 1 Me moria tartrate 50 0-11 tab, PO, l mg oral 16:23: BID, # 180 Herm cassy tablet 00 tab, 0 Refill(s) Amlodipine 2017-07 Yes 2.5 mg = 1 M emoria 2.5 MG Oral 0-11 tab, PO, l Tablet 16:23: BID, 0 [place] [Norvasc] 00 Refill(s) Trazodone 2017-07 Yes 25 mg, PO, Me moria 0-11 Bedtime, 0 l 16:23: Refill(s) [place] 00 gabapentin 2017-07 Yes 100 mg = [...] 0-11 Instructio l Tablet 16:23: ns, 1/2 [place] [Eliquis] 00 tab PO Q12H, 0 Refill(s) [...] Herm cassy Release 00 Refill(s) Capsule [Dilantin] tramadol 50 tramadol 50 No 1 Q12H tramadol [facility] mg tablet mg tablet 50 mg Medi nlison Take 1 Take 1 tablet tablet tablet Take 1 every 12 every 12 tablet hours by hours by every 12 oral route oral route hours by as needed as needed oral route for 10 for 10 as needed days. days. for 10 days. valproic valproic No 20mL BID valproic Mikaela via acid (as acid (as acid (as Med ical sodium sodium sodium salt) 250 salt) 250 salt) 250 mg/5 mL mg/5 mL mg/5 mL oral oral oral solution solution solution Take 20 mL Take 20 mL Take 20 mL twice a day twice a day twice a by oral by oral day by route. route. oral route. acetaminoph acetaminoph No 20.3mL Q6H acetaminop [facility] en 650 en 650 hen 650 Medical mg/20.3 mL mg/20.3 mL mg/20.3 mL oral oral oral solution solution solution Take 20.3 Take 20.3 Take 20.3 mL every 6 mL every 6 mL every 6 hours by hours by hours by oral route oral route oral route as needed. as needed. as needed. Adult Low Adult Low No 1 Q1D Adult Low [facility] Dose Dose Dose Medical Aspirin 81 Aspirin 81 Aspirin 81 mg mg mg tablet,rukhsana tablet,rukhsana tablet,del yed release yed release ayed Take 1 Take 1 release tablet tablet Take 1 every day every day tablet by oral by oral every day route. route. by oral route. Adult Adult No 1 Q1D Adult [facility] Multivitami Multivitami Multivitam Medical n n in (w-lutein) (w-lutein) (w-lutein) 200 200 200 mcg-137.5 mcg-137.5 mcg-137.5 mcg mcg mcg chewable chewable chewable tablet Take tablet Take tablet 1 tablet 1 tablet Take 1 every day every day tablet by oral by oral every day route. route. by oral route. Arginaid Arginaid No 1packet Q1D Arginaid [facility] 4.5 4.5 (s) 4.5 Medical gram-156 gram-156 gram-156 mg/9.2 gram mg/9.2 gram mg/9.2 oral powder oral powder gram oral packet Take packet Take powder 1 packet 1 packet packet every day every day Take 1 by oral by oral packet route. route. every day by oral route. atorvastati atorvastati No 1 Q1D atorvastat [facility] n 40 mg n 40 mg in 40 mg Medic al tablet Take tablet Take tablet 1 tablet 1 tablet Take 1 every day every day tablet by oral by oral every day route for route for by oral 30 days. 30 days. route for 30 days. Calcium 600 Calcium 600 No 1 Q1D Calcium [facility] with with 600 with Medical Vitamin D3 Vitamin D3 Vitamin D3 600 mg-10 600 mg-10 600 mg-10 mcg (400 mcg (400 mcg (400 unit) unit) unit) chewable chewable chewable tablet Take tablet Take tablet 1 tablet 1 tablet Take 1 every day every day tablet by oral by oral every day route. route. by oral route. Eliquis 2.5 Eliquis 2.5 No 1 BID Eliquis [facility] mg tablet mg tablet 2.5 mg Med ical Take 1 Take 1 tablet tablet tablet Take 1 twice a day twice a day tablet by oral by oral twice a route. route. day by oral route. famotidine famotidine No 1 Q1D famotidine [facility] 20 mg 20 mg 20 mg [facility] tablet Take tablet Take tablet 1 tablet 1 tablet Take 1 every day every day tablet by oral by oral every day route. route. by oral route. fluoxetine fluoxetine No 1capsul Q1D fluoxetine [facility] 40 mg 40 mg e(s) 40 mg [facility] capsule capsule capsule Take 1 Take 1 Take 1 capsule capsule capsule every day every day every day by oral by oral by oral route. route. route. gabapentin gabapentin No 1capsul TID gabapentin [facility] 100 mg 100 mg e(s) 100 mg Medical capsule capsule capsule Take 1 Take 1 Take 1 capsule 3 capsule 3 capsule 3 times a day times a day times a by oral by oral day by route. route. oral route. levothyroxi levothyroxi No 1capsul Q1D levothyrox [facility] ne 150 mcg ne 150 mcg e(s) ine 150 Medical capsule capsule mcg Take 1 Take 1 capsule capsule capsule Take 1 every day every day capsule by oral by oral every day route. route. by oral route. nitroglycer nitroglycer No 1 nitroglyce [facility] in 0.4 mg in 0.4 mg rin 0.4 mg Medical sublingual sublingual sublingual tablet tablet tablet Place [address] 1 tablet by tablet by tablet by sublingual sublingual sublingual route as route as route as needed. needed. needed. phenytoin phenytoin No 2capsul BID phenytoin [facility] sodium sodium e(s) sodium Medical extended extended extended 100 mg 100 mg 100 mg capsule capsule capsule Take 2 Take 2 Take 2 capsules capsules capsules twice a day twice a day twice a by oral by oral day by route. route. oral route. Pro-Stat Pro-Stat No 30mL BID Pro-Stat [facility] via AWC 17 AWC 17 AWC 17 Medical gram-100 gram-100 gram-100 kcal/30 mL kcal/30 mL kcal/30 mL oral liquid oral liquid oral Take 30 mL Take 30 mL liquid twice a day twice a day Take 30 mL by oral by oral twice a route. route. day by oral route. tramadol 50 tramadol 50 No 1 Q12H tramadol [facility] mg tablet mg tablet 50 mg Medi nilson Take 1 Take 1 tablet tablet tablet Take 1 every 12 every 12 tablet hours by hours by every 12 oral route oral route hours by as needed as needed oral route for 30 for 30 as needed days. days. for 30 days. valproic valproic No 20mL BID valproic [facility] via acid (as acid (as acid (as Med ical sodium sodium sodium salt) 250 salt) 250 salt) 250 mg/5 mL mg/5 mL mg/5 mL oral oral oral solution solution solution Take 20 mL Take 20 mL Take 20 mL twice a day twice a day twice a by oral by oral day by route. route. oral route. zinc zinc No 1capsul Q1D zinc [facility] sulfate 50 sulfate 50 e(s) sulfate 50 Medical mg zinc mg zinc mg zinc (220 mg) (220 mg) (220 mg) capsule capsule capsule Take 1 Take 1 Take 1 capsule capsule capsule every day every day every day by oral by oral by oral route. route. route. acetaminoph acetaminoph No 20.3mL Q6H acetaminop [facility] en 650 en 650 hen 650 Medical mg/20.3 mL mg/20.3 mL mg/20.3 mL oral oral oral solution solution solution Take 20.3 Take 20.3 Take 20.3 mL every 6 mL every 6 mL every 6 hours by hours by hours by oral route oral route oral route as needed. as needed. as needed. Adult Low Adult Low No 1 Q1D Adult Low [facility] Dose Dose Dose Medical Aspirin 81 Aspirin 81 Aspirin 81 mg mg mg tablet,rukhsana tablet,rukhsana tablet,del yed release yed release ayed Take 1 Take 1 release tablet tablet Take 1 every day every day tablet by oral by oral every day route. route. by oral route. Adult Adult No 1 Q1D Adult [facility] Multivitami Multivitami Multivitam Medical n n in (w-lutein) (w-lutein) (w-lutein) 200 200 200 mcg-137.5 mcg-137.5 mcg-137.5 mcg mcg mcg chewable chewable chewable tablet Take tablet Take tablet 1 tablet 1 tablet Take 1 every day every day tablet by oral by oral every day route. route. by oral route. Arginaid Arginaid No 1packet Q1D Arginaid [facility] 4.5 4.5 (s) 4.5 Medical gram-156 gram-156 gram-156 mg/9.2 gram mg/9.2 gram mg/9.2 oral powder oral powder gram oral packet Take packet Take powder 1 packet 1 packet packet every day every day Take 1 by oral by oral packet route. route. every day by oral route. atorvastati atorvastati No 1 Q1D atorvastat [facility] n 40 mg n 40 mg in 40 mg Medic al tablet Take tablet Take tablet 1 tablet 1 tablet Take 1 every day every day tablet by oral by oral every day route for route for by oral 30 days. 30 days. route for 30 days. Calcium 600 Calcium 600 No 1 Q1D Calcium [facility] with with 600 with Medical Vitamin D3 Vitamin D3 Vitamin D3 600 mg-10 600 mg-10 600 mg-10 mcg (400 mcg (400 mcg (400 unit) unit) unit) chewable chewable chewable tablet Take tablet Take tablet 1 tablet 1 tablet Take 1 every day every day tablet by oral by oral every day route. route. by oral route. Eliquis 2.5 Eliquis 2.5 No 1 BID Eliquis [facility] mg tablet mg tablet 2.5 mg Med ical Take 1 Take 1 tablet tablet tablet Take 1 twice a day twice a day tablet by oral by oral twice a route. route. day by oral route. famotidine famotidine No 1 Q1D famotidine [facility] 20 mg 20 mg 20 mg [facility] tablet Take tablet Take tablet 1 tablet 1 tablet Take 1 every day every day tablet by oral by oral every day route. route. by oral route. fluoxetine fluoxetine No 1capsul Q1D fluoxetine [facility] 40 mg 40 mg e(s) 40 mg [facility] capsule capsule capsule Take 1 Take 1 Take 1 capsule capsule capsule every day every day every day by oral by oral by oral route. route. route. gabapentin gabapentin No 1capsul TID gabapentin [facility] 100 mg 100 mg e(s) 100 mg [facility] capsule capsule capsule Take 1 Take 1 Take 1 capsule 3 capsule 3 capsule 3 times a day times a day times a by oral by oral day by route. route. oral route. levothyroxi levothyroxi No 1capsul Q1D levothyrox [facility] ne 150 mcg ne 150 mcg e(s) ine 150 Medical capsule capsule mcg Take 1 Take 1 capsule capsule capsule Take 1 every day every day capsule by oral by oral every day route. route. by oral route. nitroglycer nitroglycer No 1 nitroglyce [facility] in 0.4 mg in 0.4 mg rin 0.4 mg Medical sublingual sublingual sublingual tablet tablet tablet Place [address] 1 tablet by tablet by tablet by sublingual sublingual sublingual route as route as route as needed. needed. needed. phenytoin phenytoin No 2capsul BID phenytoin [facility] sodium sodium e(s) sodium Medical extended extended extended 100 mg 100 mg 100 mg capsule capsule capsule Take 2 Take 2 Take 2 capsules capsules capsules twice a day twice a day twice a by oral by oral day by route. route. oral route. Pro-Stat Pro-Stat No 30mL BID Pro-Stat [facility] via AWC 17 AWC 17 AWC 17 Medical gram-100 gram-100 gram-100 kcal/30 mL kcal/30 mL kcal/30 mL oral liquid oral liquid oral Take 30 mL Take 30 mL liquid twice a day twice a day Take 30 mL by oral by oral twice a route. route. day by oral route. tramadol 50 tramadol 50 No 1 Q12H tramadol [facility] mg tablet mg tablet 50 mg Medi nilson Take 1 Take 1 tablet tablet tablet Take 1 every 12 every 12 tablet hours by hours by every 12 oral route oral route hours by as needed as needed oral route for 30 for 30 as needed days. days. for 30 days. valproic valproic No 20mL BID valproic [facility] via acid (as acid (as acid (as Med ical sodium sodium sodium salt) 250 salt) 250 salt) 250 mg/5 mL mg/5 mL mg/5 mL oral oral oral solution solution solution Take 20 mL Take 20 mL Take 20 mL twice a day twice a day twice a by oral by oral day by route. route. oral route. zinc zinc No 1capsul Q1D zinc [facility] sulfate 50 sulfate 50 e(s) sulfate 50 Medical mg zinc mg zinc mg zinc (220 mg) (220 mg) (220 mg) capsule capsule capsule Take 1 Take 1 Take 1 capsule capsule capsule every day every day every day by oral by oral by oral route. route. route. acetaminoph acetaminoph No 20.3mL Q6H acetaminop [facility] en 650 en 650 hen 650 Medical mg/20.3 mL mg/20.3 mL mg/20.3 mL oral oral oral solution solution solution Take 20.3 Take 20.3 Take 20.3 mL every 6 mL every 6 mL every 6 hours by hours by hours by oral route oral route oral route as needed. as needed. as needed. Adult Low Adult Low No 1 Q1D Adult Low [facility] Dose Dose Dose Medical Aspirin 81 Aspirin 81 Aspirin 81 mg mg mg tablet,rukhsana tablet,rukhsana tablet,del yed release yed release ayed Take 1 Take 1 release tablet tablet Take 1 every day every day tablet by oral by oral every day route. route. by oral route. Adult Adult No 1 Q1D Adult [facility] Multivitami Multivitami Multivitam Medical n n in (w-lutein) (w-lutein) (w-lutein) 200 200 200 mcg-137.5 mcg-137.5 mcg-137.5 mcg mcg mcg chewable chewable chewable tablet Take tablet Take tablet 1 tablet 1 tablet Take 1 every day every day tablet by oral by oral every day route. route. by oral route. Arginaid Arginaid No 1packet Q1D Arginaid [facility] 4.5 4.5 (s) 4.5 Medical gram-156 gram-156 gram-156 mg/9.2 gram mg/9.2 gram mg/9.2 oral powder oral powder gram oral packet Take packet Take powder 1 packet 1 packet packet every day every day Take 1 by oral by oral packet route. route. every day by oral route. atorvastati atorvastati No 1 Q1D atorvastat [facility] n 40 mg n 40 mg in 40 mg Medic al tablet Take tablet Take tablet 1 tablet 1 tablet Take 1 every day every day tablet by oral by oral every day route for route for by oral 30 days. 30 days. route for 30 days. Calcium 600 Calcium 600 No 1 Q1D Calcium [facility] with with 600 with Medical Vitamin D3 Vitamin D3 Vitamin D3 600 mg-10 600 mg-10 600 mg-10 mcg (400 mcg (400 mcg (400 unit) unit) unit) chewable chewable chewable tablet Take tablet Take tablet 1 tablet 1 tablet Take 1 every day every day tablet by oral by oral every day route. route. by oral route. Eliquis 2.5 Eliquis 2.5 No 1 BID Eliquis [facility] mg tablet mg tablet 2.5 mg Med ical Take 1 Take 1 tablet tablet tablet Take 1 twice a day twice a day tablet by oral by oral twice a route. route. day by oral route. famotidine famotidine No 1 Q1D famotidine [facility] 20 mg 20 mg 20 mg [facility] tablet Take tablet Take tablet 1 tablet 1 tablet Take 1 every day every day tablet by oral by oral every day route. route. by oral route. fluoxetine fluoxetine No 1capsul Q1D fluoxetine [facility] 40 mg 40 mg e(s) 40 mg [facility] capsule capsule capsule Take 1 Take 1 Take 1 capsule capsule capsule every day every day every day by oral by oral by oral route. route. route. gabapentin gabapentin No 1capsul TID gabapentin [facility] 100 mg 100 mg e(s) 100 mg Medical capsule capsule capsule Take 1 Take 1 Take 1 capsule 3 capsule 3 capsule 3 times a day times a day times a by oral by oral day by route. route. oral route. levothyroxi levothyroxi No 1capsul Q1D levothyrox [facility] ne 150 mcg ne 150 mcg e(s) ine 150 Medical capsule capsule mcg Take 1 Take 1 capsule capsule capsule Take 1 every day every day capsule by oral by oral every day route. route. by oral route. nitroglycer nitroglycer No 1 nitroglyce [facility] in 0.4 mg in 0.4 mg rin 0.4 mg Medical sublingual sublingual sublingual tablet tablet tablet Place [address] 1 tablet by tablet by tablet by sublingual sublingual sublingual route as route as route as needed. needed. needed. phenytoin phenytoin No 2capsul BID phenytoin [facility] sodium sodium e(s) sodium Medical extended extended extended 100 mg 100 mg 100 mg capsule capsule capsule Take 2 Take 2 Take 2 capsules capsules capsules twice a day twice a day twice a by oral by oral day by route. route. oral route. Pro-Stat Pro-Stat No 30mL BID Pro-Stat [facility] via AWC 17 AWC 17 AWC 17 Medical gram-100 gram-100 gram-100 kcal/30 mL kcal/30 mL kcal/30 mL oral liquid oral liquid oral Take 30 mL Take 30 mL liquid twice a day twice a day Take 30 mL by oral by oral twice a route. route. day by oral route. tramadol 50 tramadol 50 No 1 Q12H tramadol [facility] mg tablet mg tablet 50 mg Medi nilson Take 1 Take 1 tablet tablet tablet Take 1 every 12 every 12 tablet hours by hours by every 12 oral route oral route hours by as needed as needed oral route for 30 for 30 as needed days. days. for 30 days. valproic valproic No 20mL BID valproic [facility] via acid (as acid (as acid (as Med ical sodium sodium sodium salt) 250 salt) 250 salt) 250 mg/5 mL mg/5 mL mg/5 mL oral oral oral solution solution solution Take 20 mL Take 20 mL Take 20 mL twice a day twice a day twice a by oral by oral day by route. route. oral route. zinc zinc No 1capsul Q1D zinc [facility] sulfate 50 sulfate 50 e(s) sulfate 50 Medical mg zinc mg zinc mg zinc (220 mg) (220 mg) (220 mg) capsule capsule capsule Take 1 Take 1 Take 1 capsule capsule capsule every day every day every day by oral by oral by oral route. route. route. acetaminoph acetaminoph No 20.3mL Q6H acetaminop [facility] en 650 en 650 hen 650 Medical mg/20.3 mL mg/20.3 mL mg/20.3 mL oral oral oral solution solution solution Take 20.3 Take 20.3 Take 20.3 mL every 6 mL every 6 mL every 6 hours by hours by hours by oral route oral route oral route as needed. as needed. as needed. Adult Low Adult Low No 1 Q1D Adult Low [facility] Dose Dose Dose Medical Aspirin 81 Aspirin 81 Aspirin 81 mg mg mg tablet,rukhsana tablet,rukhsana tablet,del yed release yed release ayed Take 1 Take 1 release tablet tablet Take 1 every day every day tablet by oral by oral every day route. route. by oral route. Adult Adult No 1 Q1D Adult [facility] Multivitami Multivitami Multivitam Medical n n in (w-lutein) (w-lutein) (w-lutein) 200 200 200 mcg-137.5 mcg-137.5 mcg-137.5 mcg mcg mcg chewable chewable chewable tablet Take tablet Take tablet 1 tablet 1 tablet Take 1 every day every day tablet by oral by oral every day route. route. by oral route. Arginaid Arginaid No 1packet Q1D Arginaid [facility] 4.5 4.5 (s) 4.5 Medical gram-156 gram-156 gram-156 mg/9.2 gram mg/9.2 gram mg/9.2 oral powder oral powder gram oral packet Take packet Take powder 1 packet 1 packet packet every day every day Take 1 by oral by oral packet route. route. every day by oral route. atorvastati atorvastati No 1 Q1D atorvastat [facility] n 40 mg n 40 mg in 40 mg Medic al tablet Take tablet Take tablet 1 tablet 1 tablet Take 1 every day every day tablet by oral by oral every day route for route for by oral 30 days. 30 days. route for 30 days. Calcium 600 Calcium 600 No 1 Q1D Calcium [facility] with with 600 with Medical Vitamin D3 Vitamin D3 Vitamin D3 600 mg-10 600 mg-10 600 mg-10 mcg (400 mcg (400 mcg (400 unit) unit) unit) chewable chewable chewable tablet Take tablet Take tablet 1 tablet 1 tablet Take 1 every day every day tablet by oral by oral every day route. route. by oral route. Eliquis 2.5 Eliquis 2.5 No Eliquis [facility] mg tablet mg tablet 2.5 mg Med ical Take 1 Take 1 tablet tablet tablet Take 1 twice a day twice a day tablet by oral by oral twice a route. route. day by oral route. famotidine famotidine No 1 Q1D famotidine [facility] 20 mg 20 mg 20 mg Medical tablet Take tablet Take tablet 1 tablet 1 tablet Take 1 every day every day tablet by oral by oral every day route. route. by oral route. fluoxetine fluoxetine No 1capsul Q1D fluoxetine [facility] 40 mg 40 mg e(s) 40 mg [facility] capsule capsule capsule Take 1 Take 1 Take 1 capsule capsule capsule every day every day every day by oral by oral by oral route. route. route. gabapentin gabapentin No 1capsul TID gabapentin [facility] 100 mg 100 mg e(s) 100 mg Medical capsule capsule capsule Take 1 Take 1 Take 1 capsule 3 capsule 3 capsule 3 times a day times a day times a by oral by oral day by route. route. oral route. levothyroxi levothyroxi No 1capsul Q1D levothyrox [facility] ne 150 mcg ne 150 mcg e(s) ine 150 Medical capsule capsule mcg Take 1 Take 1 capsule capsule capsule Take 1 every day every day capsule by oral by oral every day route. route. by oral route. levothyroxi levothyroxi No levothyrox [facility] ne 150 mcg ne 150 mcg ine 150 Medical tablet tablet mcg tablet nitroglycer nitroglycer No 1 nitroglyce [facility] in 0.4 mg in 0.4 mg rin 0.4 mg Medical sublingual sublingual sublingual tablet tablet tablet Place [address] 1 tablet by tablet by tablet by sublingual sublingual sublingual route as route as route as needed. needed. needed. phenytoin phenytoin No 2capsul BID phenytoin [facility] sodium sodium e(s) sodium Medical extended extended extended 100 mg 100 mg 100 mg capsule capsule capsule Take 2 Take 2 Take 2 capsules capsules capsules twice a day twice a day twice a by oral by oral day by route. route. oral route. Pro-Stat Pro-Stat No 30mL BID Pro-Stat [facility] via AWC 17 AWC 17 AWC 17 Medical gram-100 gram-100 gram-100 kcal/30 mL kcal/30 mL kcal/30 mL oral liquid oral liquid oral Take 30 mL Take 30 mL liquid twice a day twice a day Take 30 mL by oral by oral twice a route. route. day by oral route. tramadol 50 tramadol 50 No 1 Q12H tramadol [facility] mg tablet mg tablet 50 mg Medi nilson Take 1 Take 1 tablet tablet tablet Take 1 every 12 every 12 tablet hours by hours by every 12 oral route oral route hours by as needed as needed oral route for 30 for 30 as needed days. days. for 30 days. valproic valproic No 20mL BID valproic [facility] via acid (as acid (as acid (as Med ical sodium sodium sodium salt) 250 salt) 250 salt) 250 mg/5 mL mg/5 mL mg/5 mL oral oral oral solution solution solution Take 20 mL Take 20 mL Take 20 mL twice a day twice a day twice a by oral by oral day by route. route. oral route. zinc zinc No 1capsul Q1D zinc [facility] sulfate 50 sulfate 50 e(s) sulfate 50 Medical mg zinc mg zinc mg zinc (220 mg) (220 mg) (220 mg) capsule capsule capsule Take 1 Take 1 Take 1 capsule capsule capsule every day every day every day by oral by oral by oral route. route. route. acetaminoph acetaminoph No 20.3mL Q6H acetaminop [facility] en 650 en 650 hen 650 Medical mg/20.3 mL mg/20.3 mL mg/20.3 mL oral oral oral solution solution solution Take 20.3 Take 20.3 Take 20.3 mL every 6 mL every 6 mL every 6 hours by hours by hours by oral route oral route oral route as needed. as needed. as needed. Adult Low Adult Low No 1 Q1D Adult Low [facility] Dose Dose Dose Medical Aspirin 81 Aspirin 81 Aspirin 81 mg mg mg tablet,rukhsana tablet,rukhsana tablet,del yed release yed release ayed Take 1 Take 1 release tablet tablet Take 1 every day every day tablet by oral by oral every day route. route. by oral route. Adult Adult No 1 Q1D Adult [facility] Multivitami Multivitami Multivitam Medical n n in (w-lutein) (w-lutein) (w-lutein) 200 200 200 mcg-137.5 mcg-137.5 mcg-137.5 mcg mcg mcg chewable chewable chewable tablet Take tablet Take tablet 1 tablet 1 tablet Take 1 every day every day tablet by oral by oral every day route. route. by oral route. Arginaid Arginaid No 1packet Q1D Arginaid [facility] 4.5 4.5 (s) 4.5 Medical gram-156 gram-156 gram-156 mg/9.2 gram mg/9.2 gram mg/9.2 oral powder oral powder gram oral packet Take packet Take powder 1 packet 1 packet packet every day every day Take 1 by oral by oral packet route. route. every day by oral route. atorvastati atorvastati No 1 Q1D atorvastat [facility] n 40 mg n 40 mg in 40 mg Medic al tablet Take tablet Take tablet 1 tablet 1 tablet Take 1 every day every day tablet by oral by oral every day route for route for by oral 30 days. 30 days. route for 30 days. Calcium 600 Calcium 600 No 1 Q1D Calcium [facility] with with 600 with Medical Vitamin D3 Vitamin D3 Vitamin D3 600 mg-10 600 mg-10 600 mg-10 mcg (400 mcg (400 mcg (400 unit) unit) unit) chewable chewable chewable tablet Take tablet Take tablet 1 tablet 1 tablet Take 1 every day every day tablet by oral by oral every day route. route. by oral route. clindamycin clindamycin No 1capsul Q6H clindamyci [facility] HCl 150 mg HCl 150 mg e(s) n HCl 150 Medical capsule capsule mg capsule Take 1 Take 1 Take 1 capsule capsule capsule every 6 every 6 every 6 hours by hours by hours by oral route oral route oral route for 7 days. for 7 days. for 7 days. Eliquis 2.5 Eliquis 2.5 No Eliquis [facility] mg tablet mg tablet 2.5 mg Med ical Take 1 Take 1 tablet tablet tablet Take 1 twice a day twice a day tablet by oral by oral twice a route. route. day by oral route. famotidine famotidine No 1 Q1D famotidine [facility] 20 mg 20 mg 20 mg Medical tablet Take tablet Take tablet 1 tablet 1 tablet Take 1 every day every day tablet by oral by oral every day route. route. by oral route. fluoxetine fluoxetine No fluoxetine [facility] 40 mg 40 mg 40 mg [facility] capsule capsule capsule Take 1 Take 1 Take 1 capsule capsule capsule every day every day every day by oral by oral by oral route. route. route. gabapentin gabapentin No 1capsul TID gabapentin [facility] 100 mg 100 mg e(s) 100 mg [facility] capsule capsule capsule Take 1 Take 1 Take 1 capsule 3 capsule 3 capsule 3 times a day times a day times a by oral by oral day by route. route. oral route. levothyroxi levothyroxi No 1capsul Q1D levothyrox [facility] ne 150 mcg ne 150 mcg e(s) ine 150 Medical capsule capsule mcg Take 1 Take 1 capsule capsule capsule Take 1 every day every day capsule by oral by oral every day route. route. by oral route. nitroglycer nitroglycer No 1 nitroglyce [facility] in 0.4 mg in 0.4 mg rin 0.4 mg Medical sublingual sublingual sublingual tablet tablet tablet Place [address] 1 tablet by tablet by tablet by sublingual sublingual sublingual route as route as route as needed. needed. needed. phenytoin phenytoin No 2capsul BID phenytoin [facility] sodium sodium e(s) sodium Medical extended extended extended 100 mg 100 mg 100 mg capsule capsule capsule Take 2 Take 2 Take 2 capsules capsules capsules twice a day twice a day twice a by oral by oral day by route. route. oral route. Pro-Stat Pro-Stat No 30mL BID Pro-Stat [facility] via AWC 17 AWC 17 AWC 17 Medical gram-100 gram-100 gram-100 kcal/30 mL kcal/30 mL kcal/30 mL oral liquid oral liquid oral Take 30 mL Take 30 mL liquid twice a day twice a day Take 30 mL by oral by oral twice a route. route. day by oral route. Santyl 250 Santyl 250 No Santyl 250 [facility] unit/gram unit/gram unit/gram [facility] topical topical topical ointment ointment ointment tramadol 50 tramadol 50 No tramadol [facility] mg tablet mg tablet 50 mg Medi nilson Take 1 Take 1 tablet tablet tablet Take 1 every 12 every 12 tablet hours by hours by every 12 oral route oral route hours by as needed as needed oral route for 30 for 30 as needed days. days. for 30 days. valproic valproic No 20mL BID valproic [facility] via acid (as acid (as acid (as Med ical sodium sodium sodium salt) 250 salt) 250 salt) 250 mg/5 mL mg/5 mL mg/5 mL oral oral oral solution solution solution Take 20 mL Take 20 mL Take 20 mL twice a day twice a day twice a by oral by oral day by route. route. oral route. zinc zinc No 1capsul Q1D zinc [facility] sulfate 50 sulfate 50 e(s) sulfate 50 Medical mg zinc mg zinc mg zinc (220 mg) (220 mg) (220 mg) capsule capsule capsule Take 1 Take 1 Take 1 capsule capsule capsule every day every day every day by oral by oral by oral route. route. route. acetaminoph acetaminoph No 20.3mL Q6H acetaminop [facility] en 650 en 650 hen 650 Medical mg/20.3 mL mg/20.3 mL mg/20.3 mL oral oral oral solution solution solution Take 20.3 Take 20.3 Take 20.3 mL every 6 mL every 6 mL every 6 hours by hours by hours by oral route oral route oral route as needed. as needed. as needed. Adult Low Adult Low No 1 Q1D Adult Low [facility] Dose Dose Dose Medical Aspirin 81 Aspirin 81 Aspirin 81 mg mg mg tablet,rukhsana tablet,rukhsana tablet,del yed release yed release ayed Take 1 Take 1 release tablet tablet Take 1 every day every day tablet by oral by oral every day route. route. by oral route. Adult Adult No 1 Q1D Adult [facility] Multivitami Multivitami Multivitam Medical n n in (w-lutein) (w-lutein) (w-lutein) 200 200 200 mcg-137.5 mcg-137.5 mcg-137.5 mcg mcg mcg chewable chewable chewable tablet Take tablet Take tablet 1 tablet 1 tablet Take 1 every day every day tablet by oral by oral every day route. route. by oral route. Arginaid Arginaid No 1packet Q1D Arginaid [facility] 4.5 4.5 (s) 4.5 Medical gram-156 gram-156 gram-156 mg/9.2 gram mg/9.2 gram mg/9.2 oral powder oral powder gram oral packet Take packet Take powder 1 packet 1 packet packet every day every day Take 1 by oral by oral packet route. route. every day by oral route. atorvastati atorvastati No 1 Q1D atorvastat [facility] n 40 mg n 40 mg in 40 mg Medic al tablet Take tablet Take tablet 1 tablet 1 tablet Take 1 every day every day tablet by oral by oral every day route for route for by oral 30 days. 30 days. route for 30 days. Calcium 600 Calcium 600 No 1 Q1D Calcium [facility] with with 600 with Medical Vitamin D3 Vitamin D3 Vitamin D3 600 mg-10 600 mg-10 600 mg-10 mcg (400 mcg (400 mcg (400 unit) unit) unit) chewable chewable chewable tablet Take tablet Take tablet 1 tablet 1 tablet Take 1 every day every day tablet by oral by oral every day route. route. by oral route. clindamycin clindamycin No 1capsul Q6H clindamyci [facility] HCl 150 mg HCl 150 mg e(s) n HCl 150 Medical capsule capsule mg capsule Take 1 Take 1 Take 1 capsule capsule capsule every 6 every 6 every 6 hours by hours by hours by oral route oral route oral route for 7 days. for 7 days. for 7 days. Eliquis 2.5 Eliquis 2.5 No Eliquis [facility] mg tablet mg tablet 2.5 mg Med ical Take 1 Take 1 tablet tablet tablet Take 1 twice a day twice a day tablet by oral by oral twice a route. route. day by oral route. famotidine famotidine No 1 Q1D famotidine [facility] 20 mg 20 mg 20 mg [facility] tablet Take tablet Take tablet 1 tablet 1 tablet Take 1 every day every day tablet by oral by oral every day route. route. by oral route. fluoxetine fluoxetine No fluoxetine [facility] 40 mg 40 mg 40 mg [facility] capsule capsule capsule Take 1 Take 1 Take 1 capsule capsule capsule every day every day every day by oral by oral by oral route. route. route. gabapentin gabapentin No 1capsul TID gabapentin [facility] 100 mg 100 mg e(s) 100 mg [facility] capsule capsule capsule Take 1 Take 1 Take 1 capsule 3 capsule 3 capsule 3 times a day times a day times a by oral by oral day by route. route. oral route. levothyroxi levothyroxi No 1capsul Q1D levothyrox [facility] ne 150 mcg ne 150 mcg e(s) ine 150 Medical capsule capsule mcg Take 1 Take 1 capsule capsule capsule Take 1 every day every day capsule by oral by oral every day route. route. by oral route. nitroglycer nitroglycer No 1 nitroglyce [facility] in 0.4 mg in 0.4 mg rin 0.4 mg Medical sublingual sublingual sublingual tablet tablet tablet Place [address] 1 tablet by tablet by tablet by sublingual sublingual sublingual route as route as route as needed. needed. needed. phenytoin phenytoin No 2capsul BID phenytoin [facility] sodium sodium e(s) sodium Medical extended extended extended 100 mg 100 mg 100 mg capsule capsule capsule Take 2 Take 2 Take 2 capsules capsules capsules twice a day twice a day twice a by oral by oral day by route. route. oral route. Pro-Stat Pro-Stat No 30mL BID Pro-Stat [facility] via AWC 17 AWC 17 AWC 17 Medical gram-100 gram-100 gram-100 kcal/30 mL kcal/30 mL kcal/30 mL oral liquid oral liquid oral Take 30 mL Take 30 mL liquid twice a day twice a day Take 30 mL by oral by oral twice a route. route. day by oral route. Santyl 250 Santyl 250 No Santyl 250 [facility] unit/gram unit/gram unit/gram [facility] topical topical topical ointment ointment ointment tramadol 50 tramadol 50 No tramadol [facility] mg tablet mg tablet 50 mg Medi nilson Take 1 Take 1 tablet tablet tablet Take 1 every 12 every 12 tablet hours by hours by every 12 oral route oral route hours by as needed as needed oral route for 30 for 30 as needed days. days. for 30 days. valproic valproic No 20mL BID valproic [facility] via acid (as acid (as acid (as Med ical sodium sodium sodium salt) 250 salt) 250 salt) 250 mg/5 mL mg/5 mL mg/5 mL oral oral oral solution solution solution Take 20 mL Take 20 mL Take 20 mL twice a day twice a day twice a by oral by oral day by route. route. oral route. zinc zinc No 1capsul Q1D zinc [facility] sulfate 50 sulfate 50 e(s) sulfate 50 Medical mg zinc mg zinc mg zinc (220 mg) (220 mg) (220 mg) capsule capsule capsule Take 1 Take 1 Take 1 capsule capsule capsule every day every day every day by oral by oral by oral route. route. route. acetaminoph acetaminoph No 1 Q6H acetaminop [facility] en 300 en 300 hen 300 Medical mg-codeine mg-codeine mg-codeine 15 mg 15 mg 15 mg tablet Take tablet Take tablet 1 tablet 1 tablet Take 1 every 6 every 6 tablet hours by hours by every 6 oral route oral route hours by as needed. as needed. oral route as needed. acetaminoph acetaminoph No 20.3mL Q6H acetaminop [facility] en 650 en 650 hen 650 Medical mg/20.3 mL mg/20.3 mL mg/20.3 mL oral oral oral solution solution solution Take 20.3 Take 20.3 Take 20.3 mL every 6 mL every 6 mL every 6 hours by hours by hours by oral route oral route oral route as needed. as needed. as needed. Adult Low Adult Low No 1 Q1D Adult Low [facility] Dose Dose Dose [facility] Aspirin 81 Aspirin 81 Aspirin 81 mg mg mg tablet,rukhsana tablet,rukhsana tablet,del yed release yed release ayed Take 1 Take 1 release tablet tablet Take 1 every day every day tablet by oral by oral every day route. route. by oral route. Adult Adult No 1 Q1D Adult [facility] Multivitami Multivitami Multivitam Medical n n in (w-lutein) (w-lutein) (w-lutein) 200 200 200 mcg-137.5 mcg-137.5 mcg-137.5 mcg mcg mcg chewable chewable chewable tablet Take tablet Take tablet 1 tablet 1 tablet Take 1 every day every day tablet by oral by oral every day route. route. by oral route. Arginaid Arginaid No 1packet Q1D Arginaid [facility] 4.5 4.5 (s) 4.5 [facility] gram-156 gram-156 gram-156 mg/9.2 gram mg/9.2 gram mg/9.2 oral powder oral powder gram oral packet Take packet Take powder 1 packet 1 packet packet every day every day Take 1 by oral by oral packet route. route. every day by oral route. atorvastati atorvastati No 1 Q1D atorvastat [facility] n 40 mg n 40 mg in 40 mg [facility] al tablet Take tablet Take tablet 1 tablet 1 tablet Take 1 every day every day tablet by oral by oral every day route for route for by oral 30 days. 30 days. route for 30 days. Calcium 600 Calcium 600 No 1 Q1D Calcium [facility] with with 600 with Medical Vitamin D3 Vitamin D3 Vitamin D3 600 mg-10 600 mg-10 600 mg-10 mcg (400 mcg (400 mcg (400 unit) unit) unit) chewable chewable chewable tablet Take tablet Take tablet 1 tablet 1 tablet Take 1 every day every day tablet by oral by oral every day route. route. by oral route. Eliquis 2.5 Eliquis 2.5 No 1 BID Eliquis [facility] mg tablet mg tablet 2.5 mg Med ical Take 1 Take 1 tablet tablet tablet Take 1 twice a day twice a day tablet by oral by oral twice a route. route. day by oral route. famotidine famotidine No 1 Q1D famotidine [facility] 20 mg 20 mg 20 mg [facility] tablet Take tablet Take tablet 1 tablet 1 tablet Take 1 every day every day tablet by oral by oral every day route. route. by oral route. fluoxetine fluoxetine No 1capsul Q1D fluoxetine [facility] 40 mg 40 mg e(s) 40 mg [facility] capsule capsule capsule Take 1 Take 1 Take 1 capsule capsule capsule every day every day every day by oral by oral by oral route. route. route. gabapentin gabapentin No 1capsul TID gabapentin [facility] 100 mg 100 mg e(s) 100 mg [facility] capsule capsule capsule Take 1 Take 1 Take 1 capsule 3 capsule 3 capsule 3 times a day times a day times a by oral by oral day by route. route. oral route. levothyroxi levothyroxi No 1capsul Q1D levothyrox [facility] ne 150 mcg ne 150 mcg e(s) ine 150 Medical capsule capsule mcg Take 1 Take 1 capsule capsule capsule Take 1 every day every day capsule by oral by oral every day route. route. by oral route. megestrol megestrol No 10mL Q1D megestrol [facility] 400 mg/10 400 mg/10 400 mg/10 Medical mL (10 mL) mL (10 mL) mL (10 mL) oral oral oral suspension suspension suspension Take 10 mL Take 10 mL Take 10 mL every day every day every day by oral by oral by oral route. route. route. nitroglycer nitroglycer No 1 nitroglyce [facility] in 0.4 mg in 0.4 mg rin 0.4 mg Medical sublingual sublingual sublingual tablet tablet tablet Place [address] 1 tablet by tablet by tablet by sublingual sublingual sublingual route as route as route as needed. needed. needed. phenytoin phenytoin No 2capsul BID phenytoin [facility] sodium sodium e(s) sodium Medical extended extended extended 100 mg 100 mg 100 mg capsule capsule capsule Take 2 Take 2 Take 2 capsules capsules capsules twice a day twice a day twice a by oral by oral day by route. route. oral route. Pro-Stat Pro-Stat No 30mL BID Pro-Stat [facility] via AWC 17 AW 17 AW 17 Medical gram-100 gram-100 gram-100 kcal/30 mL kcal/30 mL kcal/30 mL oral liquid oral liquid oral Take 30 mL Take 30 mL liquid twice a day twice a day Take 30 mL by oral by oral twice a route. route. day by oral route. tramadol 50 tramadol 50 No 1 Q6H tramadol [facility] mg tablet mg tablet 50 mg Medi nilson Take 1 Take 1 tablet tablet tablet Take 1 every 6 every 6 tablet hours by hours by every 6 oral route oral route hours by as needed. as needed. oral route as needed. valproic valproic No 20mL BID valproic [facility] via acid (as acid (as acid (as Med ical sodium sodium sodium salt) 250 salt) 250 salt) 250 mg/5 mL mg/5 mL mg/5 mL oral oral oral solution solution solution Take 20 mL Take 20 mL Take 20 mL twice a day twice a day twice a by oral by oral day by route. route. oral route. acetaminoph acetaminoph No 1 Q6H acetaminop [facility] en 300 en 300 hen 300 Medical mg-codeine mg-codeine mg-codeine 15 mg 15 mg 15 mg tablet Take tablet Take tablet 1 tablet 1 tablet Take 1 every 6 every 6 tablet hours by hours by every 6 oral route oral route hours by as needed. as needed. oral route as needed. acetaminoph acetaminoph No 20.3mL Q6H acetaminop [facility] en 650 en 650 hen 650 Medical mg/20.3 mL mg/20.3 mL mg/20.3 mL oral oral oral solution solution solution Take 20.3 Take 20.3 Take 20.3 mL every 6 mL every 6 mL every 6 hours by hours by hours by oral route oral route oral route as needed. as needed. as needed. Adult Low Adult Low No 1 Q1D Adult Low [facility] Dose Dose Dose [facility] Aspirin 81 Aspirin 81 Aspirin 81 mg mg mg tablet,rukhsana tablet,rukhsana tablet,del yed release yed release ayed Take 1 Take 1 release tablet tablet Take 1 every day every day tablet by oral by oral every day route. route. by oral route. Adult Adult No 1 Q1D Adult [facility] Multivitami Multivitami Multivitam Medical n n in (w-lutein) (w-lutein) (w-lutein) 200 200 200 mcg-137.5 mcg-137.5 mcg-137.5 mcg mcg mcg chewable chewable chewable tablet Take tablet Take tablet 1 tablet 1 tablet Take 1 every day every day tablet by oral by oral every day route. route. by oral route. Arginaid Arginaid No 1packet Q1D Arginaid [facility] 4.5 4.5 (s) 4.5 [facility] gram-156 gram-156 gram-156 mg/9.2 gram mg/9.2 gram mg/9.2 oral powder oral powder gram oral packet Take packet Take powder 1 packet 1 packet packet every day every day Take 1 by oral by oral packet route. route. every day by oral route. atorvastati atorvastati No 1 Q1D atorvastat [facility] n 40 mg n 40 mg in 40 mg [facility] al tablet Take tablet Take tablet 1 tablet 1 tablet Take 1 every day every day tablet by oral by oral every day route for route for by oral 30 days. 30 days. route for 30 days. Calcium 600 Calcium 600 No 1 Q1D Calcium [facility] with with 600 with Medical Vitamin D3 Vitamin D3 Vitamin D3 600 mg-10 600 mg-10 600 mg-10 mcg (400 mcg (400 mcg (400 unit) unit) unit) chewable chewable chewable tablet Take tablet Take tablet 1 tablet 1 tablet Take 1 every day every day tablet by oral by oral every day route. route. by oral route. Eliquis 2.5 Eliquis 2.5 No 1 BID Eliquis [facility] mg tablet mg tablet 2.5 mg Med ical Take 1 Take 1 tablet tablet tablet Take 1 twice a day twice a day tablet by oral by oral twice a route. route. day by oral route. famotidine famotidine No 1 Q1D famotidine [facility] 20 mg 20 mg 20 mg [facility] tablet Take tablet Take tablet 1 tablet 1 tablet Take 1 every day every day tablet by oral by oral every day route. route. by oral route. fluoxetine fluoxetine No 1capsul Q1D fluoxetine [facility] 40 mg 40 mg e(s) 40 mg [facility] capsule capsule capsule Take 1 Take 1 Take 1 capsule capsule capsule every day every day every day by oral by oral by oral route. route. route. gabapentin gabapentin No 1capsul TID gabapentin [facility] 100 mg 100 mg e(s) 100 mg [facility] capsule capsule capsule Take 1 Take 1 Take 1 capsule 3 capsule 3 capsule 3 times a day times a day times a by oral by oral day by route. route. oral route. levothyroxi levothyroxi No 1capsul Q1D levothyrox [facility] ne 150 mcg ne 150 mcg e(s) ine 150 Medical capsule capsule mcg Take 1 Take 1 capsule capsule capsule Take 1 every day every day capsule by oral by oral every day route. route. by oral route. megestrol megestrol No 10mL Q1D megestrol [facility] 400 mg/10 400 mg/10 400 mg/10 Medical mL (10 mL) mL (10 mL) mL (10 mL) oral oral oral suspension suspension suspension Take 10 mL Take 10 mL Take 10 mL every day every day every day by oral by oral by oral route. route. route. nitroglycer nitroglycer No 1 nitroglyce [facility] in 0.4 mg in 0.4 mg rin 0.4 mg Medical sublingual sublingual sublingual tablet tablet tablet Place [address] 1 tablet by tablet by tablet by sublingual sublingual sublingual route as route as route as needed. needed. needed. phenytoin phenytoin No 2capsul BID phenytoin [facility] sodium sodium e(s) sodium Medical extended extended extended 100 mg 100 mg 100 mg capsule capsule capsule Take 2 Take 2 Take 2 capsules capsules capsules twice a day twice a day twice a by oral by oral day by route. route. oral route. Pro-Stat Pro-Stat No 30mL BID Pro-Stat [facility] via AWC 17 AWC 17 AWC 17 Medical gram-100 gram-100 gram-100 kcal/30 mL kcal/30 mL kcal/30 mL oral liquid oral liquid oral Take 30 mL Take 30 mL liquid twice a day twice a day Take 30 mL by oral by oral twice a route. route. day by oral route. tramadol 50 tramadol 50 No 1 Q6H tramadol [facility] mg tablet mg tablet 50 mg Medi nilson Take 1 Take 1 tablet tablet tablet Take 1 every 6 every 6 tablet hours by hours by every 6 oral route oral route hours by as needed. as needed. oral route as needed. valproic valproic No 20mL BID valproic [facility] via acid (as acid (as acid (as Med ical sodium sodium sodium salt) 250 salt) 250 salt) 250 mg/5 mL mg/5 mL mg/5 mL oral oral oral solution solution solution Take 20 mL Take 20 mL Take 20 mL twice a day twice a day twice a by oral by oral day by route. route. oral route. acetaminoph acetaminoph No 1 Q6H acetaminop [facility] en 300 en 300 hen 300 Medical mg-codeine mg-codeine mg-codeine 15 mg 15 mg 15 mg tablet Take tablet Take tablet 1 tablet 1 tablet Take 1 every 6 every 6 tablet hours by hours by every 6 oral route oral route hours by as needed. as needed. oral route as needed. acetaminoph acetaminoph No 20.3mL Q6H acetaminop [facility] en 650 en 650 hen 650 Medical mg/20.3 mL mg/20.3 mL mg/20.3 mL oral oral oral solution solution solution Take 20.3 Take 20.3 Take 20.3 mL every 6 mL every 6 mL every 6 hours by hours by hours by oral route oral route oral route as needed. as needed. as needed. Adult Adult No 1 Q1D Adult [facility] Multivitami Multivitami Multivitam Medical n n in (w-lutein) (w-lutein) (w-lutein) 200 200 200 mcg-137.5 mcg-137.5 mcg-137.5 mcg mcg mcg chewable chewable chewable tablet Take tablet Take tablet 1 tablet 1 tablet Take 1 every day every day tablet by oral by oral every day route. route. by oral route. Arginaid Arginaid No 1packet Q1D Arginaid [facility] 4.5 4.5 (s) 4.5 Medical gram-156 gram-156 gram-156 mg/9.2 gram mg/9.2 gram mg/9.2 oral powder oral powder gram oral packet Take packet Take powder 1 packet 1 packet packet every day every day Take 1 by oral by oral packet route. route. every day by oral route. Calcium 600 Calcium 600 No 1 Q1D Calcium [facility] with with 600 with Medical Vitamin D3 Vitamin D3 Vitamin D3 600 mg-10 600 mg-10 600 mg-10 mcg (400 mcg (400 mcg (400 unit) unit) unit) chewable chewable chewable tablet Take tablet Take tablet 1 tablet 1 tablet Take 1 every day every day tablet by oral by oral every day route. route. by oral route. DuoNeb 0.5 DuoNeb 0.5 No 3mL Q8H DuoNeb 0.5 [facility] mg-3 mg(2.5 mg-3 mg(2.5 mg-3 M edical mg base)/3 mg base)/3 mg(2.5 mg mL solution mL solution base)/3 mL for for solution nebulizatio nebulizatio for n Inhale 3 n Inhale 3 nebulizati mL every 8 mL every 8 on Inhale hours by hours by 3 mL every nebulizatio nebulizatio 8 hours by n route. n route. nebulizati on route. Eliquis 2.5 Eliquis 2.5 No 1 BID Eliquis [facility] mg tablet mg tablet 2.5 mg Med ical Take 1 Take 1 tablet tablet tablet Take 1 twice a day twice a day tablet by oral by oral twice a route. route. day by oral route. famotidine famotidine No 1 Q1D famotidine [facility] 20 mg 20 mg 20 mg [facility] tablet Take tablet Take tablet 1 tablet 1 tablet Take 1 every day every day tablet by oral by oral every day route. route. by oral route. fluoxetine fluoxetine No 1capsul Q1D fluoxetine [facility] 40 mg 40 mg e(s) 40 mg [facility] capsule capsule capsule Take 1 Take 1 Take 1 capsule capsule capsule every day every day every day by oral by oral by oral route. route. route. gabapentin gabapentin No 1capsul TID gabapentin [facility] 100 mg 100 mg e(s) 100 mg [facility] capsule capsule capsule Take 1 Take 1 Take 1 capsule 3 capsule 3 capsule 3 times a day times a day times a by oral by oral day by route. route. oral route. Hydrogel to Hydrogel to No Hydrogel [facility] left heel left heel to left Me dical daily daily heel daily levothyroxi levothyroxi No 1capsul Q1D levothyrox [facility] ne 150 mcg ne 150 mcg e(s) ine 150 Medical capsule capsule mcg Take 1 Take 1 capsule capsule capsule Take 1 every day every day capsule by oral by oral every day route. route. by oral route. megestrol megestrol No 10mL Q1D megestrol [facility] 400 mg/10 400 mg/10 400 mg/10 Medical mL (10 mL) mL (10 mL) mL (10 mL) oral oral oral suspension suspension suspension Take 10 mL Take 10 mL Take 10 mL every day every day every day by oral by oral by oral route. route. route. nitroglycer nitroglycer No 1 nitroglyce [facility] in 0.4 mg in 0.4 mg rin 0.4 mg Medical sublingual sublingual sublingual tablet tablet tablet Place [address] 1 tablet by tablet by tablet by sublingual sublingual sublingual route as route as route as needed. needed. needed. phenytoin phenytoin No 1capsul Q8H phenytoin [facility] sodium sodium e(s) sodium Medical extended extended extended 100 mg 100 mg 100 mg capsule capsule capsule Take 1 Take 1 Take 1 capsule capsule capsule every 8 every 8 every 8 hours by hours by hours by oral route. oral route. oral route. Pro-Stat Pro-Stat No 30mL BID Pro-Stat [facility] via AWC 17 AWC 17 AWC 17 Medical gram-100 gram-100 gram-100 kcal/30 mL kcal/30 mL kcal/30 mL oral liquid oral liquid oral Take 30 mL Take 30 mL liquid twice a day twice a day Take 30 mL by oral by oral twice a route. route. day by oral route. tramadol 50 tramadol 50 No 1 Q6H tramadol [facility] mg tablet mg tablet 50 mg Medi nilson Take 1 Take 1 tablet tablet tablet Take 1 every 6 every 6 tablet hours by hours by every 6 oral route oral route hours by as needed. as needed. oral route as needed. valproic valproic No 20mL BID valproic [facility] via acid (as acid (as acid (as Med ical sodium sodium sodium salt) 250 salt) 250 salt) 250 mg/5 mL mg/5 mL mg/5 mL oral oral oral solution solution solution Take 20 mL Take 20 mL Take 20 mL twice a day twice a day twice a by oral by oral day by route. route. oral route. acetaminoph acetaminoph No 1 Q6H acetaminop [facility] en 300 en 300 hen 300 Medical mg-codeine mg-codeine mg-codeine 15 mg 15 mg 15 mg tablet Take tablet Take tablet 1 tablet 1 tablet Take 1 every 6 every 6 tablet hours by hours by every 6 oral route oral route hours by as needed. as needed. oral route as needed. acetaminoph acetaminoph No 20.3mL Q6H acetaminop [facility] en 650 en 650 hen 650 Medical mg/20.3 mL mg/20.3 mL mg/20.3 mL oral oral oral solution solution solution Take 20.3 Take 20.3 Take 20.3 mL every 6 mL every 6 mL every 6 hours by hours by hours by oral route oral route oral route as needed. as needed. as needed. Adult Adult No 1 Q1D Adult [facility] Multivitami Multivitami Multivitam Medical n n in (w-lutein) (w-lutein) (w-lutein) 200 200 200 mcg-137.5 mcg-137.5 mcg-137.5 mcg mcg mcg chewable chewable chewable tablet Take tablet Take tablet 1 tablet 1 tablet Take 1 every day every day tablet by oral by oral every day route. route. by oral route. Arginaid Arginaid No 1packet Q1D Arginaid [facility] 4.5 4.5 (s) 4.5 [facility] gram-156 gram-156 gram-156 mg/9.2 gram mg/9.2 gram mg/9.2 oral powder oral powder gram oral packet Take packet Take powder 1 packet 1 packet packet every day every day Take 1 by oral by oral packet route. route. every day by oral route. Calcium 600 Calcium 600 No 1 Q1D Calcium [facility] with with 600 with Medical Vitamin D3 Vitamin D3 Vitamin D3 600 mg-10 600 mg-10 600 mg-10 mcg (400 mcg (400 mcg (400 unit) unit) unit) chewable chewable chewable tablet Take tablet Take tablet 1 tablet 1 tablet Take 1 every day every day tablet by oral by oral every day route. route. by oral route. Eliquis 2.5 Eliquis 2.5 No 1 BID Eliquis [facility] mg tablet mg tablet 2.5 mg Med ical Take 1 Take 1 tablet tablet tablet Take 1 twice a day twice a day tablet by oral by oral twice a route. route. day by oral route. famotidine famotidine No 1 Q1D famotidine [facility] 20 mg 20 mg 20 mg [facility] tablet Take tablet Take tablet 1 tablet 1 tablet Take 1 every day every day tablet by oral by oral every day route. route. by oral route. fluoxetine fluoxetine No 1capsul Q1D fluoxetine [facility] 40 mg 40 mg e(s) 40 mg [facility] capsule capsule capsule Take 1 Take 1 Take 1 capsule capsule capsule every day every day every day by oral by oral by oral route. route. route. gabapentin gabapentin No 1capsul TID gabapentin [facility] 100 mg 100 mg e(s) 100 mg [facility] capsule capsule capsule Take 1 Take 1 Take 1 capsule 3 capsule 3 capsule 3 times a day times a day times a by oral by oral day by route. route. oral route. levothyroxi levothyroxi No 1capsul Q1D levothyrox [facility] ne 150 mcg ne 150 mcg e(s) ine 150 Medical capsule capsule mcg Take 1 Take 1 capsule capsule capsule Take 1 every day every day capsule by oral by oral every day route. route. by oral route. megestrol megestrol No 10mL Q1D megestrol [facility] 400 mg/10 400 mg/10 400 mg/10 Medical mL (10 mL) mL (10 mL) mL (10 mL) oral oral oral suspension suspension suspension Take 10 mL Take 10 mL Take 10 mL every day every day every day by oral by oral by oral route. route. route. nitroglycer nitroglycer No 1 nitroglyce [facility] in 0.4 mg in 0.4 mg rin 0.4 mg Medical sublingual sublingual sublingual tablet tablet tablet Place [address] 1 tablet by tablet by tablet by sublingual sublingual sublingual route as route as route as needed. needed. needed. phenytoin phenytoin No 1capsul Q8H phenytoin [facility] sodium sodium e(s) sodium Medical extended extended extended 100 mg 100 mg 100 mg capsule capsule capsule Take 1 Take 1 Take 1 capsule capsule capsule every 8 every 8 every 8 hours by hours by hours by oral route. oral route. oral route. Pro-Stat Pro-Stat No 30mL BID Pro-Stat [facility] via AWC 17 AWC 17 AWC 17 Medical gram-100 gram-100 gram-100 kcal/30 mL kcal/30 mL kcal/30 mL oral liquid oral liquid oral Take 30 mL Take 30 mL liquid twice a day twice a day Take 30 mL by oral by oral twice a route. route. day by oral route. tramadol 50 tramadol 50 No 1 Q6H tramadol [facility] mg tablet mg tablet 50 mg Medi nilson Take 1 Take 1 tablet tablet tablet Take 1 every 6 every 6 tablet hours by hours by every 6 oral route oral route hours by as needed. as needed. oral route as needed. valproic valproic No 20mL BID valproic [facility] via acid (as acid (as acid (as Med ical sodium sodium sodium salt) 250 salt) 250 salt) 250 mg/5 mL mg/5 mL mg/5 mL oral oral oral solution solution solution Take 20 mL Take 20 mL Take 20 mL twice a day twice a day twice a by oral by oral day by route. route. oral route. acetaminoph acetaminoph No 1 Q6H acetaminop [facility] en 300 en 300 hen 300 Medical mg-codeine mg-codeine mg-codeine 15 mg 15 mg 15 mg tablet Take tablet Take tablet 1 tablet 1 tablet Take 1 every 6 every 6 tablet hours by hours by every 6 oral route oral route hours by as needed. as needed. oral route as needed. acetaminoph acetaminoph No 20.3mL Q6H acetaminop [facility] en 650 en 650 hen 650 Medical mg/20.3 mL mg/20.3 mL mg/20.3 mL oral oral oral solution solution solution Take 20.3 Take 20.3 Take 20.3 mL every 6 mL every 6 mL every 6 hours by hours by hours by oral route oral route oral route as needed. as needed. as needed. Adult Adult No 1 Q1D Adult [facility] Mult[facility]it[facility] Multivitam [facility] n n in (w-lutein) (w-lutein) (w-lutein) 200 200 200 mcg-137.5 mcg-137.5 mcg-137.5 mcg mcg mcg chewable chewable chewable tablet Take tablet Take tablet 1 tablet 1 tablet Take 1 every day every day tablet by oral by oral every day route. route. by oral route. Arginaid Arginaid No 1packet Q1D Arginaid [facility] 4.5 4.5 (s) 4.5 [facility] gram-156 gram-156 gram-156 mg/9.2 gram mg/9.2 gram mg/9.2 oral powder oral powder gram oral packet Take packet Take powder 1 packet 1 packet packet every day every day Take 1 by oral by oral packet route. route. every day by oral route. Calcium 600 Calcium 600 No 1 Q1D Calcium [facility] with with 600 with Medical Vitamin D3 Vitamin D3 Vitamin D3 600 mg-10 600 mg-10 600 mg-10 mcg (400 mcg (400 mcg (400 unit) unit) unit) chewable chewable chewable tablet Take tablet Take tablet 1 tablet 1 tablet Take 1 every day every day tablet by oral by oral every day route. route. by oral route. Eliquis 2.5 Eliquis 2.5 No 1 BID Eliquis [facility] mg tablet mg tablet 2.5 mg Med ical Take 1 Take 1 tablet tablet tablet Take 1 twice a day twice a day tablet by oral by oral twice a route. route. day by oral route. famotidine famotidine No 1 Q1D famotidine [facility] 20 mg 20 mg 20 mg [facility] tablet Take tablet Take tablet 1 tablet 1 tablet Take 1 every day every day tablet by oral by oral every day route. route. by oral route. fluoxetine fluoxetine No 1capsul Q1D fluoxetine [facility] 40 mg 40 mg e(s) 40 mg [facility] capsule capsule capsule Take 1 Take 1 Take 1 capsule capsule capsule every day every day every day by oral by oral by oral route. route. route. gabapentin gabapentin No 1capsul TID gabapentin [facility] 100 mg 100 mg e(s) 100 mg [facility] capsule capsule capsule Take 1 Take 1 Take 1 capsule 3 capsule 3 capsule 3 times a day times a day times a by oral by oral day by route. route. oral route. levothyroxi levothyroxi No 1capsul Q1D levothyrox [facility] ne 150 mcg ne 150 mcg e(s) ine 150 Medical capsule capsule mcg Take 1 Take 1 capsule capsule capsule Take 1 every day every day capsule by oral by oral every day route. route. by oral route. megestrol megestrol No 10mL Q1D megestrol [facility] 400 mg/10 400 mg/10 400 mg/10 Medical mL (10 mL) mL (10 mL) mL (10 mL) oral oral oral suspension suspension suspension Take 10 mL Take 10 mL Take 10 mL every day every day every day by oral by oral by oral route. route. route. nitroglycer nitroglycer No 1 nitroglyce [facility] in 0.4 mg in 0.4 mg rin 0.4 mg Medical sublingual sublingual sublingual tablet tablet tablet Place [address] 1 tablet by tablet by tablet by sublingual sublingual sublingual route as route as route as needed. needed. needed. phenytoin phenytoin No 1capsul Q8H phenytoin [facility] sodium sodium e(s) sodium Medical extended extended extended 100 mg 100 mg 100 mg capsule capsule capsule Take 1 Take 1 Take 1 capsule capsule capsule every 8 every 8 every 8 hours by hours by hours by oral route. oral route. oral route. Pro-Stat Pro-Stat No 30mL BID Pro-Stat [facility] via AWC 17 AWC 17 AWC 17 Medical gram-100 gram-100 gram-100 kcal/30 mL kcal/30 mL kcal/30 mL oral liquid oral liquid oral Take 30 mL Take 30 mL liquid twice a day twice a day Take 30 mL by oral by oral twice a route. route. day by oral route. tramadol 50 tramadol 50 No 1 Q6H tramadol [facility] mg tablet mg tablet 50 mg Medi nilson Take 1 Take 1 tablet tablet tablet Take 1 every 6 every 6 tablet hours by hours by every 6 oral route oral route hours by as needed. as needed. oral route as needed. valproic valproic No 20mL BID valproic [facility] via acid (as acid (as acid (as Med ical sodium sodium sodium salt) 250 salt) 250 salt) 250 mg/5 mL mg/5 mL mg/5 mL oral oral oral solution solution solution Take 20 mL Take 20 mL Take 20 mL twice a day twice a day twice a by oral by oral day by route. route. oral route. acetaminoph acetaminoph No 1 Q6H acetaminop [facility] en 300 en 300 hen 300 Medical mg-codeine mg-codeine mg-codeine 15 mg 15 mg 15 mg tablet Take tablet Take tablet 1 tablet 1 tablet Take 1 every 6 every 6 tablet hours by hours by every 6 oral route oral route hours by as needed. as needed. oral route as needed. acetaminoph acetaminoph No 20.3mL Q6H acetaminop [facility] en 650 en 650 hen 650 Medical mg/20.3 mL mg/20.3 mL mg/20.3 mL oral oral oral solution solution solution Take 20.3 Take 20.3 Take 20.3 mL every 6 mL every 6 mL every 6 hours by hours by hours by oral route oral route oral route as needed. as needed. as needed. Adult Low Adult Low No 1 Q1D Adult Low [facility] Dose Dose Dose [facility] Aspirin 81 Aspirin 81 Aspirin 81 mg mg mg tablet,rukhsana tablet,rukhsana tablet,del yed release yed release ayed Take 1 Take 1 release tablet tablet Take 1 every day every day tablet by oral by oral every day route. route. by oral route. Adult Adult No 1 Q1D Adult [facility] Mult[facility] Mult[facility]it[facility] n n in (w-lutein) (w-lutein) (w-lutein) 200 200 200 mcg-137.5 mcg-137.5 mcg-137.5 mcg mcg mcg chewable chewable chewable tablet Take tablet Take tablet 1 tablet 1 tablet Take 1 every day every day tablet by oral by oral every day route. route. by oral route. Arginaid Arginaid No 1packet Q1D Arginaid [facility] 4.5 4.5 (s) 4.5 [facility] gram-156 gram-156 gram-156 mg/9.2 gram mg/9.2 gram mg/9.2 oral powder oral powder gram oral packet Take packet Take powder 1 packet 1 packet packet every day every day Take 1 by oral by oral packet route. route. every day by oral route. atorvastati atorvastati No 1 Q1D atorvastat [facility] n 20 mg n 20 mg in 20 mg [facility] al tablet Take tablet Take tablet 1 tablet 1 tablet Take 1 every day every day tablet by oral by oral every day route at route at by oral dinner. dinner. route at dinner. Calcium 600 Calcium 600 No 1 Q1D Calcium [facility] with with 600 with Medical Vitamin D3 Vitamin D3 Vitamin D3 600 mg-10 600 mg-10 600 mg-10 mcg (400 mcg (400 mcg (400 unit) unit) unit) chewable chewable chewable tablet Take tablet Take tablet 1 tablet 1 tablet Take 1 every day every day tablet by oral by oral every day route. route. by oral route. Eliquis 2.5 Eliquis 2.5 No 1 BID Eliquis [facility] mg tablet mg tablet 2.5 mg Med ical Take 1 Take 1 tablet tablet tablet Take 1 twice a day twice a day tablet by oral by oral twice a route. route. day by oral route. famotidine famotidine No 1 Q1D famotidine [facility] 20 mg 20 mg 20 mg [facility] tablet Take tablet Take tablet 1 tablet 1 tablet Take 1 every day every day tablet by oral by oral every day route. route. by oral route. fluoxetine fluoxetine No 1capsul Q1D fluoxetine [facility] 40 mg 40 mg e(s) 40 mg [facility] capsule capsule capsule Take 1 Take 1 Take 1 capsule capsule capsule every day every day every day by oral by oral by oral route. route. route. gabapentin gabapentin No 1capsul TID gabapentin [facility] 100 mg 100 mg e(s) 100 mg [facility] capsule capsule capsule Take 1 Take 1 Take 1 capsule 3 capsule 3 capsule 3 times a day times a day times a by oral by oral day by route. route. oral route. levothyroxi levothyroxi No 1capsul Q1D levothyrox [facility] ne 150 mcg ne 150 mcg e(s) ine 150 Medical capsule capsule mcg Take 1 Take 1 capsule capsule capsule Take 1 every day every day capsule by oral by oral every day route. route. by oral route. megestrol megestrol No 10mL Q1D megestrol [facility] 400 mg/10 400 mg/10 400 mg/10 Medical mL (10 mL) mL (10 mL) mL (10 mL) oral oral oral suspension suspension suspension Take 10 mL Take 10 mL Take 10 mL every day every day every day by oral by oral by oral route. route. route. nitroglycer nitroglycer No 1 nitroglyce [facility] in 0.4 mg in 0.4 mg rin 0.4 mg [facility] sublingual sublingual sublingual tablet tablet tablet Place [address] 1 tablet by tablet by tablet by sublingual sublingual sublingual route as route as route as needed. needed. needed. phenytoin phenytoin No 2capsul BID phenytoin [facility] sodium sodium e(s) sodium Medical extended extended extended 100 mg 100 mg 100 mg capsule capsule capsule Take 2 Take 2 Take 2 capsules capsules capsules twice a day twice a day twice a by oral by oral day by route. route. oral route. Pro-Stat Pro-Stat No 30mL BID Pro-Stat [facility] via AWC 17 AWC 17 AWC 17 Medical gram-100 gram-100 gram-100 kcal/30 mL kcal/30 mL kcal/30 mL oral liquid oral liquid oral Take 30 mL Take 30 mL liquid twice a day twice a day Take 30 mL by oral by oral twice a route. route. day by oral route. tramadol 50 tramadol 50 No 1 Q6H tramadol [facility] mg tablet mg tablet 50 mg Medi nilson Take 1 Take 1 tablet tablet tablet Take 1 every 6 every 6 tablet hours by hours by every 6 oral route oral route hours by as needed. as needed. oral route as needed. valproic valproic No 20mL BID valproic [facility] via acid (as acid (as acid (as Med ical sodium sodium sodium salt) 250 salt) 250 salt) 250 mg/5 mL mg/5 mL mg/5 mL oral oral oral solution solution solution Take 20 mL Take 20 mL Take 20 mL twice a day twice a day twice a by oral by oral day by route. route. oral route. acetaminoph acetaminoph No 1 Q6H acetaminop [facility] en 300 en 300 hen 300 Medical mg-codeine mg-codeine mg-codeine 15 mg 15 mg 15 mg tablet Take tablet Take tablet 1 tablet 1 tablet Take 1 every 6 every 6 tablet hours by hours by every 6 oral route oral route hours by as needed. as needed. oral route as needed. acetaminoph acetaminoph No 20.3mL Q6H acetaminop [facility] en 650 en 650 hen 650 Medical mg/20.3 mL mg/20.3 mL mg/20.3 mL oral oral oral solution solution solution Take 20.3 Take 20.3 Take 20.3 mL every 6 mL every 6 mL every 6 hours by hours by hours by oral route oral route oral route as needed. as needed. as needed. Adult Low Adult Low No 1 Q1D Adult Low [facility] Dose Dose Dose [facility] Aspirin 81 Aspirin 81 Aspirin 81 mg mg mg tablet,rukhsana tablet,rukhsana tablet,del yed release yed release ayed Take 1 Take 1 release tablet tablet Take 1 every day every day tablet by oral by oral every day route. route. by oral route. Adult Adult No 1 Q1D Adult [facility] Multivitam [facility] n n in (w-lutein) (w-lutein) (w-lutein) 200 200 200 mcg-137.5 mcg-137.5 mcg-137.5 mcg mcg mcg chewable chewable chewable tablet Take tablet Take tablet 1 tablet 1 tablet Take 1 every day every day tablet by oral by oral every day route. route. by oral route. Arginaid Arginaid No 1packet Q1D Arginaid [facility] 4.5 4.5 (s) 4.5 [facility] gram-156 gram-156 gram-156 mg/9.2 gram mg/9.2 gram mg/9.2 oral powder oral powder gram oral packet Take packet Take powder 1 packet 1 packet packet every day every day Take 1 by oral by oral packet route. route. every day by oral route. atorvastati atorvastati No 1 Q1D atorvastat [facility] n 20 mg n 20 mg in 20 mg Medic al tablet Take tablet Take tablet 1 tablet 1 tablet Take 1 every day every day tablet by oral by oral every day route at route at by oral dinner. dinner. route at dinner. Calcium 600 Calcium 600 No 1 Q1D Calcium [facility] with with 600 with Medical Vitamin D3 Vitamin D3 Vitamin D3 600 mg-10 600 mg-10 600 mg-10 mcg (400 mcg (400 mcg (400 unit) unit) unit) chewable chewable chewable tablet Take tablet Take tablet 1 tablet 1 tablet Take 1 every day every day tablet by oral by oral every day route. route. by oral route. Eliquis 2.5 Eliquis 2.5 No 1 BID Eliquis [facility] mg tablet mg tablet 2.5 mg Med ical Take 1 Take 1 tablet tablet tablet Take 1 twice a day twice a day tablet by oral by oral twice a route. route. day by oral route. famotidine famotidine No 1 Q1D famotidine [facility] 20 mg 20 mg 20 mg [facility] tablet Take tablet Take tablet 1 tablet 1 tablet Take 1 every day every day tablet by oral by oral every day route. route. by oral route. fluoxetine fluoxetine No 1capsul Q1D fluoxetine [facility] 40 mg 40 mg e(s) 40 mg [facility] capsule capsule capsule Take 1 Take 1 Take 1 capsule capsule capsule every day every day every day by oral by oral by oral route. route. route. gabapentin gabapentin No 1capsul TID gabapentin [facility] 100 mg 100 mg e(s) 100 mg [facility] capsule capsule capsule Take 1 Take 1 Take 1 capsule 3 capsule 3 capsule 3 times a day times a day times a by oral by oral day by route. route. oral route. levothyroxi levothyroxi No 1capsul Q1D levothyrox [facility] ne 150 mcg ne 150 mcg e(s) ine 150 Medical capsule capsule mcg Take 1 Take 1 capsule capsule capsule Take 1 every day every day capsule by oral by oral every day route. route. by oral route. megestrol megestrol No 10mL Q1D megestrol [facility] 400 mg/10 400 mg/10 400 mg/10 Medical mL (10 mL) mL (10 mL) mL (10 mL) oral oral oral suspension suspension suspension Take 10 mL Take 10 mL Take 10 mL every day every day every day by oral by oral by oral route. route. route. nitroglycer nitroglycer No 1 nitroglyce [facility] in 0.4 mg in 0.4 mg rin 0.4 mg Medical sublingual sublingual sublingual tablet tablet tablet Place [address] 1 tablet by tablet by tablet by sublingual sublingual sublingual route as route as route as needed. needed. needed. phenytoin phenytoin No 2capsul BID phenytoin [facility] sodium sodium e(s) sodium Medical extended extended extended 100 mg 100 mg 100 mg capsule capsule capsule Take 2 Take 2 Take 2 capsules capsules capsules twice a day twice a day twice a by oral by oral day by route. route. oral route. Pro-Stat Pro-Stat No 30mL BID Pro-Stat [facility] via AWC 17 AWC 17 AWC 17 Medical gram-100 gram-100 gram-100 kcal/30 mL kcal/30 mL kcal/30 mL oral liquid oral liquid oral Take 30 mL Take 30 mL liquid twice a day twice a day Take 30 mL by oral by oral twice a route. route. day by oral route. tramadol 50 tramadol 50 No 1 Q6H tramadol [facility] mg tablet mg tablet 50 mg Medi nilson Take 1 Take 1 tablet tablet tablet Take 1 every 6 every 6 tablet hours by hours by every 6 oral route oral route hours by as needed. as needed. oral route as needed. valproic valproic No 20mL BID valproic [facility] via acid (as acid (as acid (as Med ical sodium sodium sodium salt) 250 salt) 250 salt) 250 mg/5 mL mg/5 mL mg/5 mL oral oral oral solution solution solution Take 20 mL Take 20 mL Take 20 mL twice a day twice a day twice a by oral by oral day by route. route. oral route. acetaminoph acetaminoph No 1 Q6H acetaminop [facility] en 300 en 300 hen 300 Medical mg-codeine mg-codeine mg-codeine 15 mg 15 mg 15 mg tablet Take tablet Take tablet 1 tablet 1 tablet Take 1 every 6 every 6 tablet hours by hours by every 6 oral route oral route hours by as needed. as needed. oral route as needed. acetaminoph acetaminoph No 20.3mL Q6H acetaminop [facility] en 650 en 650 hen 650 Medical mg/20.3 mL mg/20.3 mL mg/20.3 mL oral oral oral solution solution solution Take 20.3 Take 20.3 Take 20.3 mL every 6 mL every 6 mL every 6 hours by hours by hours by oral route oral route oral route as needed. as needed. as needed. Adult Low Adult Low No 1 Q1D Adult Low [facility] Dose Dose Dose [facility] Aspirin 81 Aspirin 81 Aspirin 81 mg mg mg tablet,rukhsana tablet,rukhsana tablet,del yed release yed release ayed Take 1 Take 1 release tablet tablet Take 1 every day every day tablet by oral by oral every day route. route. by oral route. Adult Adult No 1 Q1D Adult [facility] Mult[facility]it[facility] Multivitam [facility] n n in (w-lutein) (w-lutein) (w-lutein) 200 200 200 mcg-137.5 mcg-137.5 mcg-137.5 mcg mcg mcg chewable chewable chewable tablet Take tablet Take tablet 1 tablet 1 tablet Take 1 every day every day tablet by oral by oral every day route. route. by oral route. Arginaid Arginaid No 1packet Q1D Arginaid [facility] 4.5 4.5 (s) 4.5 Medical gram-156 gram-156 gram-156 mg/9.2 gram mg/9.2 gram mg/9.2 oral powder oral powder gram oral packet Take packet Take powder 1 packet 1 packet packet every day every day Take 1 by oral by oral packet route. route. every day by oral route. atorvastati atorvastati No 1 Q1D atorvastat [facility] n 20 mg n 20 mg in 20 mg [facility] al tablet Take tablet Take tablet 1 tablet 1 tablet Take 1 every day every day tablet by oral by oral every day route at route at by oral dinner. dinner. route at dinner. Calcium 600 Calcium 600 No 1 Q1D Calcium [facility] with with 600 with Medical Vitamin D3 Vitamin D3 Vitamin D3 600 mg-10 600 mg-10 600 mg-10 mcg (400 mcg (400 mcg (400 unit) unit) unit) chewable chewable chewable tablet Take tablet Take tablet 1 tablet 1 tablet Take 1 every day every day tablet by oral by oral every day route. route. by oral route. Eliquis 2.5 Eliquis 2.5 No 1 BID Eliquis [facility] mg tablet mg tablet 2.5 mg Med ical Take 1 Take 1 tablet tablet tablet Take 1 twice a day twice a day tablet by oral by oral twice a route. route. day by oral route. famotidine famotidine No 1 Q1D famotidine [facility] 20 mg 20 mg 20 mg [facility] tablet Take tablet Take tablet 1 tablet 1 tablet Take 1 every day every day tablet by oral by oral every day route. route. by oral route. fluoxetine fluoxetine No 1capsul Q1D fluoxetine [facility] 40 mg 40 mg e(s) 40 mg [facility] capsule capsule capsule Take 1 Take 1 Take 1 capsule capsule capsule every day every day every day by oral by oral by oral route. route. route. gabapentin gabapentin No 1capsul TID gabapentin [facility] 100 mg 100 mg e(s) 100 mg [facility] capsule capsule capsule Take 1 Take 1 Take 1 capsule 3 capsule 3 capsule 3 times a day times a day times a by oral by oral day by route. route. oral route. levothyroxi levothyroxi No 1capsul Q1D levothyrox [facility] ne 150 mcg ne 150 mcg e(s) ine 150 Medical capsule capsule mcg Take 1 Take 1 capsule capsule capsule Take 1 every day every day capsule by oral by oral every day route. route. by oral route. megestrol megestrol No 10mL Q1D megestrol [facility] 400 mg/10 400 mg/10 400 mg/10 Medical mL (10 mL) mL (10 mL) mL (10 mL) oral oral oral suspension suspension suspension Take 10 mL Take 10 mL Take 10 mL every day every day every day by oral by oral by oral route. route. route. nitroglycer nitroglycer No 1 nitroglyce [facility] in 0.4 mg in 0.4 mg rin 0.4 mg Medical sublingual sublingual sublingual tablet tablet tablet Place [address] 1 tablet by tablet by tablet by sublingual sublingual sublingual route as route as route as needed. needed. needed. phenytoin phenytoin No 2capsul BID phenytoin [facility] sodium sodium e(s) sodium Medical extended extended extended 100 mg 100 mg 100 mg capsule capsule capsule Take 2 Take 2 Take 2 capsules capsules capsules twice a day twice a day twice a by oral by oral day by route. route. oral route. Pro-Stat Pro-Stat No 30mL BID Pro-Stat [facility] via AWC 17 AWC 17 AWC 17 Medical gram-100 gram-100 gram-100 kcal/30 mL kcal/30 mL kcal/30 mL oral liquid oral liquid oral Take 30 mL Take 30 mL liquid twice a day twice a day Take 30 mL by oral by oral twice a route. route. day by oral route. tramadol 50 tramadol 50 No 1 Q6H tramadol [facility] mg tablet mg tablet 50 mg Medi nilson Take 1 Take 1 tablet tablet tablet Take 1 every 6 every 6 tablet hours by hours by every 6 oral route oral route hours by as needed. as needed. oral route as needed. valproic valproic No 20mL BID valproic [facility] via acid (as acid (as acid (as Med ical sodium sodium sodium salt) 250 salt) 250 salt) 250 mg/5 mL mg/5 mL mg/5 mL oral oral oral solution solution solution Take 20 mL Take 20 mL Take 20 mL twice a day twice a day twice a by oral by oral day by route. route. oral route. acetaminoph acetaminoph No 1 Q6H acetaminop [facility] en 300 en 300 hen 300 Medical mg-codeine mg-codeine mg-codeine 15 mg 15 mg 15 mg tablet Take tablet Take tablet 1 tablet 1 tablet Take 1 every 6 every 6 tablet hours by hours by every 6 oral route oral route hours by as needed. as needed. oral route as needed. acetaminoph acetaminoph No 20.3mL Q6H acetaminop [facility] en 650 en 650 hen 650 Medical mg/20.3 mL mg/20.3 mL mg/20.3 mL oral oral oral solution solution solution Take 20.3 Take 20.3 Take 20.3 mL every 6 mL every 6 mL every 6 hours by hours by hours by oral route oral route oral route as needed. as needed. as needed. Adult Low Adult Low No 1 Q1D Adult Low [facility] Dose Dose Dose [facility] Aspirin 81 Aspirin 81 Aspirin 81 mg mg mg tablet,rukhsana tablet,rukhsana tablet,del yed release yed release ayed Take 1 Take 1 release tablet tablet Take 1 every day every day tablet by oral by oral every day route. route. by oral route. Adult Adult No 1 Q1D Adult [facility] Mult[facility]it[facility] Multivitami Multivitam [facility] n n in (w-lutein) (w-lutein) (w-lutein) 200 200 200 mcg-137.5 mcg-137.5 mcg-137.5 mcg mcg mcg chewable chewable chewable tablet Take tablet Take tablet 1 tablet 1 tablet Take 1 every day every day tablet by oral by oral every day route. route. by oral route. Arginaid Arginaid No 1packet Q1D Arginaid [facility] 4.5 4.5 (s) 4.5 Medical gram-156 gram-156 gram-156 mg/9.2 gram mg/9.2 gram mg/9.2 oral powder oral powder gram oral packet Take packet Take powder 1 packet 1 packet packet every day every day Take 1 by oral by oral packet route. route. every day by oral route. atorvastati atorvastati No 1 Q1D atorvastat [facility] n 20 mg n 20 mg in 20 mg Medic al tablet Take tablet Take tablet 1 tablet 1 tablet Take 1 every day every day tablet by oral by oral every day route at route at by oral dinner. dinner. route at dinner. Calcium 600 Calcium 600 No 1 Q1D Calcium [facility] with with 600 with Medical Vitamin D3 Vitamin D3 Vitamin D3 600 mg-10 600 mg-10 600 mg-10 mcg (400 mcg (400 mcg (400 unit) unit) unit) chewable chewable chewable tablet Take tablet Take tablet 1 tablet 1 tablet Take 1 every day every day tablet by oral by oral every day route. route. by oral route. Eliquis 2.5 Eliquis 2.5 No 1 BID Eliquis [facility] mg tablet mg tablet 2.5 mg Med ical Take 1 Take 1 tablet tablet tablet Take 1 twice a day twice a day tablet by oral by oral twice a route. route. day by oral route. famotidine famotidine No 1 Q1D famotidine [facility] 20 mg 20 mg 20 mg [facility] tablet Take tablet Take tablet 1 tablet 1 tablet Take 1 every day every day tablet by oral by oral every day route. route. by oral route. fluoxetine fluoxetine No 1capsul Q1D fluoxetine [facility] 40 mg 40 mg e(s) 40 mg [facility] capsule capsule capsule Take 1 Take 1 Take 1 capsule capsule capsule every day every day every day by oral by oral by oral route. route. route. gabapentin gabapentin No 1capsul TID gabapentin [facility] 100 mg 100 mg e(s) 100 mg [facility] capsule capsule capsule Take 1 Take 1 Take 1 capsule 3 capsule 3 capsule 3 times a day times a day times a by oral by oral day by route. route. oral route. levothyroxi levothyroxi No 1capsul Q1D levothyrox [facility] ne 150 mcg ne 150 mcg e(s) ine 150 Medical capsule capsule mcg Take 1 Take 1 capsule capsule capsule Take 1 every day every day capsule by oral by oral every day route. route. by oral route. megestrol megestrol No 10mL Q1D megestrol [facility] 400 mg/10 400 mg/10 400 mg/10 Medical mL (10 mL) mL (10 mL) mL (10 mL) oral oral oral suspension suspension suspension Take 10 mL Take 10 mL Take 10 mL every day every day every day by oral by oral by oral route. route. route. nitroglycer nitroglycer No 1 nitroglyce [facility] in 0.4 mg in 0.4 mg rin 0.4 mg Medical sublingual sublingual sublingual tablet tablet tablet Place [address] 1 tablet by tablet by tablet by sublingual sublingual sublingual route as route as route as needed. needed. needed. phenytoin phenytoin No 2capsul BID phenytoin [facility] sodium sodium e(s) sodium Medical extended extended extended 100 mg 100 mg 100 mg capsule capsule capsule Take 2 Take 2 Take 2 capsules capsules capsules twice a day twice a day twice a by oral by oral day by route. route. oral route. Pro-Stat Pro-Stat No 30mL BID Pro-Stat [facility] via AWC 17 AWC 17 AWC 17 Medical gram-100 gram-100 gram-100 kcal/30 mL kcal/30 mL kcal/30 mL oral liquid oral liquid oral Take 30 mL Take 30 mL liquid twice a day twice a day Take 30 mL by oral by oral twice a route. route. day by oral route. tramadol 50 tramadol 50 No 1 Q6H tramadol [facility] mg tablet mg tablet 50 mg Medi nilson Take 1 Take 1 tablet tablet tablet Take 1 every 6 every 6 tablet hours by hours by every 6 oral route oral route hours by as needed. as needed. oral route as needed. valproic valproic No 20mL BID valproic [facility] via acid (as acid (as acid (as Med ical sodium sodium sodium salt) 250 salt) 250 salt) 250 mg/5 mL mg/5 mL mg/5 mL oral oral oral solution solution solution Take 20 mL Take 20 mL Take 20 mL twice a day twice a day twice a by oral by oral day by route. route. oral route. acetaminoph acetaminoph No 1 Q6H acetaminop [facility] en 300 en 300 hen 300 Medical mg-codeine mg-codeine mg-codeine 15 mg 15 mg 15 mg tablet Take tablet Take tablet 1 tablet 1 tablet Take 1 every 6 every 6 tablet hours by hours by every 6 oral route oral route hours by as needed. as needed. oral route as needed. acetaminoph acetaminoph No 20.3mL Q6H acetaminop [facility] en 650 en 650 hen 650 Medical mg/20.3 mL mg/20.3 mL mg/20.3 mL oral oral oral solution solution solution Take 20.3 Take 20.3 Take 20.3 mL every 6 mL every 6 mL every 6 hours by hours by hours by oral route oral route oral route as needed. as needed. as needed. Adult Low Adult Low No 1 Q1D Adult Low [facility] Dose Dose Dose [facility] Aspirin 81 Aspirin 81 Aspirin 81 mg mg mg tablet,rukhsana tablet,rukhsana tablet,del yed release yed release ayed Take 1 Take 1 release tablet tablet Take 1 every day every day tablet by oral by oral every day route. route. by oral route. Adult Adult No 1 Q1D Adult [facility] Multivitami Multivitami Multivitam Medical n n in (w-lutein) (w-lutein) (w-lutein) 200 200 200 mcg-137.5 mcg-137.5 mcg-137.5 mcg mcg mcg chewable chewable chewable tablet Take tablet Take tablet 1 tablet 1 tablet Take 1 every day every day tablet by oral by oral every day route. route. by oral route. Arginaid Arginaid No 1packet Q1D Arginaid [facility] 4.5 4.5 (s) 4.5 Medical gram-156 gram-156 gram-156 mg/9.2 gram mg/9.2 gram mg/9.2 oral powder oral powder gram oral packet Take packet Take powder 1 packet 1 packet packet every day every day Take 1 by oral by oral packet route. route. every day by oral route. atorvastati atorvastati No 1 Q1D atorvastat [facility] n 20 mg n 20 mg in 20 mg [facility] al tablet Take tablet Take tablet 1 tablet 1 tablet Take 1 every day every day tablet by oral by oral every day route at route at by oral dinner. dinner. route at dinner. Calcium 600 Calcium 600 No 1 Q1D Calcium [facility] with with 600 with Medical Vitamin D3 Vitamin D3 Vitamin D3 600 mg-10 600 mg-10 600 mg-10 mcg (400 mcg (400 mcg (400 unit) unit) unit) chewable chewable chewable tablet Take tablet Take tablet 1 tablet 1 tablet Take 1 every day every day tablet by oral by oral every day route. route. by oral route. Eliquis 2.5 Eliquis 2.5 No 1 BID Eliquis [facility] mg tablet mg tablet 2.5 mg Med ical Take 1 Take 1 tablet tablet tablet Take 1 twice a day twice a day tablet by oral by oral twice a route. route. day by oral route. famotidine famotidine No 1 Q1D famotidine [facility] 20 mg 20 mg 20 mg [facility] tablet Take tablet Take tablet 1 tablet 1 tablet Take 1 every day every day tablet by oral by oral every day route. route. by oral route. fluoxetine fluoxetine No 1capsul Q1D fluoxetine [facility] 40 mg 40 mg e(s) 40 mg [facility] capsule capsule capsule Take 1 Take 1 Take 1 capsule capsule capsule every day every day every day by oral by oral by oral route. route. route. gabapentin gabapentin No 1capsul TID gabapentin [facility] 100 mg 100 mg e(s) 100 mg [facility] capsule capsule capsule Take 1 Take 1 Take 1 capsule 3 capsule 3 capsule 3 times a day times a day times a by oral by oral day by route. route. oral route. levothyroxi levothyroxi No 1capsul Q1D levothyrox [facility] ne 150 mcg ne 150 mcg e(s) ine 150 Medical capsule capsule mcg Take 1 Take 1 capsule capsule capsule Take 1 every day every day capsule by oral by oral every day route. route. by oral route. megestrol megestrol No 10mL Q1D megestrol [facility] 400 mg/10 400 mg/10 400 mg/10 Medical mL (10 mL) mL (10 mL) mL (10 mL) oral oral oral suspension suspension suspension Take 10 mL Take 10 mL Take 10 mL every day every day every day by oral by oral by oral route. route. route. nitroglycer nitroglycer No 1 nitroglyce [facility] in 0.4 mg in 0.4 mg rin 0.4 mg Medical sublingual sublingual sublingual tablet tablet tablet Place [address] 1 tablet by tablet by tablet by sublingual sublingual sublingual route as route as route as needed. needed. needed. phenytoin phenytoin No 2capsul BID phenytoin [facility] sodium sodium e(s) sodium Medical extended extended extended 100 mg 100 mg 100 mg capsule capsule capsule Take 2 Take 2 Take 2 capsules capsules capsules twice a day twice a day twice a by oral by oral day by route. route. oral route. Pro-Stat Pro-Stat No 30mL BID Pro-Stat [facility] via AWC 17 AWC 17 AWC 17 Medical gram-100 gram-100 gram-100 kcal/30 mL kcal/30 mL kcal/30 mL oral liquid oral liquid oral Take 30 mL Take 30 mL liquid twice a day twice a day Take 30 mL by oral by oral twice a route. route. day by oral route. tramadol 50 tramadol 50 No 1 Q6H tramadol [facility] mg tablet mg tablet 50 mg Medi nilson Take 1 Take 1 tablet tablet tablet Take 1 every 6 every 6 tablet hours by hours by every 6 oral route oral route hours by as needed. as needed. oral route as needed. valproic valproic No 20mL BID valproic [facility] via acid (as acid (as acid (as Med ical sodium sodium sodium salt) 250 salt) 250 salt) 250 mg/5 mL mg/5 mL mg/5 mL oral oral oral solution solution solution Take 20 mL Take 20 mL Take 20 mL twice a day twice a day twice a by oral by oral day by route. route. oral route. acetaminoph acetaminoph No 1 Q6H acetaminop [facility] en 300 en 300 hen 300 Medical mg-codeine mg-codeine mg-codeine 15 mg 15 mg 15 mg tablet Take tablet Take tablet 1 tablet 1 tablet Take 1 every 6 every 6 tablet hours by hours by every 6 oral route oral route hours by as needed. as needed. oral route as needed. acetaminoph acetaminoph No 20.3mL Q6H acetaminop [facility] en 650 en 650 hen 650 Medical mg/20.3 mL mg/20.3 mL mg/20.3 mL oral oral oral solution solution solution Take 20.3 Take 20.3 Take 20.3 mL every 6 mL every 6 mL every 6 hours by hours by hours by oral route oral route oral route as needed. as needed. as needed. Adult Low Adult Low No 1 Q1D Adult Low [facility] Dose Dose Dose [facility] Aspirin 81 Aspirin 81 Aspirin 81 mg mg mg tablet,rukhsana tablet,rukhsana tablet,del yed release yed release ayed Take 1 Take 1 release tablet tablet Take 1 every day every day tablet by oral by oral every day route. route. by oral route. Adult Adult No 1 Q1D Adult [facility] Multivitami Multivitami Multivitam Medical n n in (w-lutein) (w-lutein) (w-lutein) 200 200 200 mcg-137.5 mcg-137.5 mcg-137.5 mcg mcg mcg chewable chewable chewable tablet Take tablet Take tablet 1 tablet 1 tablet Take 1 every day every day tablet by oral by oral every day route. route. by oral route. Arginaid Arginaid No 1packet Q1D Arginaid [facility] 4.5 4.5 (s) 4.5 Medical gram-156 gram-156 gram-156 mg/9.2 gram mg/9.2 gram mg/9.2 oral powder oral powder gram oral packet Take packet Take powder 1 packet 1 packet packet every day every day Take 1 by oral by oral packet route. route. every day by oral route. atorvastati atorvastati No 1 Q1D atorvastat [facility] n 20 mg n 20 mg in 20 mg [facility] al tablet Take tablet Take tablet 1 tablet 1 tablet Take 1 every day every day tablet by oral by oral every day route at route at by oral dinner. dinner. route at dinner. Calcium 600 Calcium 600 No 1 Q1D Calcium [facility] with with 600 with Medical Vitamin D3 Vitamin D3 Vitamin D3 600 mg-10 600 mg-10 600 mg-10 mcg (400 mcg (400 mcg (400 unit) unit) unit) chewable chewable chewable tablet Take tablet Take tablet 1 tablet 1 tablet Take 1 every day every day tablet by oral by oral every day route. route. by oral route. Eliquis 2.5 Eliquis 2.5 No 1 BID Eliquis [facility] mg tablet mg tablet 2.5 mg Med ical Take 1 Take 1 tablet tablet tablet Take 1 twice a day twice a day tablet by oral by oral twice a route. route. day by oral route. famotidine famotidine No 1 Q1D famotidine [facility] 20 mg 20 mg 20 mg [facility] tablet Take tablet Take tablet 1 tablet 1 tablet Take 1 every day every day tablet by oral by oral every day route. route. by oral route. fluoxetine fluoxetine No 1capsul Q1D fluoxetine [facility] 40 mg 40 mg e(s) 40 mg [facility] capsule capsule capsule Take 1 Take 1 Take 1 capsule capsule capsule every day every day every day by oral by oral by oral route. route. route. gabapentin gabapentin No 1capsul TID gabapentin [facility] 100 mg 100 mg e(s) 100 mg [facility] capsule capsule capsule Take 1 Take 1 Take 1 capsule 3 capsule 3 capsule 3 times a day times a day times a by oral by oral day by route. route. oral route. levothyroxi levothyroxi No 1capsul Q1D levothyrox [facility] ne 150 mcg ne 150 mcg e(s) ine 150 Medical capsule capsule mcg Take 1 Take 1 capsule capsule capsule Take 1 every day every day capsule by oral by oral every day route. route. by oral route. megestrol megestrol No 10mL Q1D megestrol [facility] 400 mg/10 400 mg/10 400 mg/10 Medical mL (10 mL) mL (10 mL) mL (10 mL) oral oral oral suspension suspension suspension Take 10 mL Take 10 mL Take 10 mL every day every day every day by oral by oral by oral route. route. route. nitroglycer nitroglycer No 1 nitroglyce [facility] in 0.4 mg in 0.4 mg rin 0.4 mg Medical sublingual sublingual sublingual tablet tablet tablet Place [address] 1 tablet by tablet by tablet by sublingual sublingual sublingual route as route as route as needed. needed. needed. phenytoin phenytoin No 2capsul BID phenytoin [facility] sodium sodium e(s) sodium Medical extended extended extended 100 mg 100 mg 100 mg capsule capsule capsule Take 2 Take 2 Take 2 capsules capsules capsules twice a day twice a day twice a by oral by oral day by route. route. oral route. Pro-Stat Pro-Stat No 30mL BID Pro-Stat [facility] via [facility]WC 17 AWC 17 AWC 17 Medical gram-100 gram-100 gram-100 kcal/30 mL kcal/30 mL kcal/30 mL oral liquid oral liquid oral Take 30 mL Take 30 mL liquid twice a day twice a day Take 30 mL by oral by oral twice a route. route. day by oral route. tramadol 50 tramadol 50 No 1 Q6H tramadol [facility] mg tablet mg tablet 50 mg Medi nilson Take 1 Take 1 tablet tablet tablet Take 1 every 6 every 6 tablet hours by hours by every 6 oral route oral route hours by as needed. as needed. oral route as needed. valproic valproic No 20mL BID valproic [facility] via acid (as acid (as acid (as Med ical sodium sodium sodium salt) 250 salt) 250 salt) 250 mg/5 mL mg/5 mL mg/5 mL oral oral oral solution solution solution Take 20 mL Take 20 mL Take 20 mL twice a day twice a day twice a by oral by oral day by route. route. oral route. acetaminoph acetaminoph No 1 Q6H acetaminop [facility] en 300 en 300 hen 300 Medical mg-codeine mg-codeine mg-codeine 15 mg 15 mg 15 mg tablet Take tablet Take tablet 1 tablet 1 tablet Take 1 every 6 every 6 tablet hours by hours by every 6 oral route oral route hours by as needed. as needed. oral route as needed. acetaminoph acetaminoph No 20.3mL Q6H acetaminop [facility] en 650 en 650 hen 650 Medical mg/20.3 mL mg/20.3 mL mg/20.3 mL oral oral oral solution solution solution Take 20.3 Take 20.3 Take 20.3 mL every 6 mL every 6 mL every 6 hours by hours by hours by oral route oral route oral route as needed. as needed. as needed. Adult Low Adult Low No 1 Q1D Adult Low [facility] Dose Dose Dose [facility] Aspirin 81 Aspirin 81 Aspirin 81 mg mg mg tablet,rukhsana tablet,rukhsana tablet,del yed release yed release ayed Take 1 Take 1 release tablet tablet Take 1 every day every day tablet by oral by oral every day route. route. by oral route. Adult Adult No 1 Q1D Adult [facility] Multivitami Multivitami Multivitam Medical n n in (w-lutein) (w-lutein) (w-lutein) 200 200 200 mcg-137.5 mcg-137.5 mcg-137.5 mcg mcg mcg chewable chewable chewable tablet Take tablet Take tablet 1 tablet 1 tablet Take 1 every day every day tablet by oral by oral every day route. route. by oral route. Arginaid Arginaid No 1packet Q1D Arginaid [facility] 4.5 4.5 (s) 4.5 Medical gram-156 gram-156 gram-156 mg/9.2 gram mg/9.2 gram mg/9.2 oral powder oral powder gram oral packet Take packet Take powder 1 packet 1 packet packet every day every day Take 1 by oral by oral packet route. route. every day by oral route. atorvastati atorvastati No 1 Q1D atorvastat [facility] n 20 mg n 20 mg in 20 mg [facility] al tablet Take tablet Take tablet 1 tablet 1 tablet Take 1 every day every day tablet by oral by oral every day route at route at by oral dinner. dinner. route at dinner. Calcium 600 Calcium 600 No 1 Q1D Calcium [facility] with with 600 with Medical Vitamin D3 Vitamin D3 Vitamin D3 600 mg-10 600 mg-10 600 mg-10 mcg (400 mcg (400 mcg (400 unit) unit) unit) chewable chewable chewable tablet Take tablet Take tablet 1 tablet 1 tablet Take 1 every day every day tablet by oral by oral every day route. route. by oral route. Eliquis 2.5 Eliquis 2.5 No 1 BID Eliquis [facility] mg tablet mg tablet 2.5 mg Med ical Take 1 Take 1 tablet tablet tablet Take 1 twice a day twice a day tablet by oral by oral twice a route. route. day by oral route. famotidine famotidine No 1 Q1D famotidine [facility] 20 mg 20 mg 20 mg [facility] tablet Take tablet Take tablet 1 tablet 1 tablet Take 1 every day every day tablet by oral by oral every day route. route. by oral route. fluoxetine fluoxetine No 1capsul Q1D fluoxetine [facility] 40 mg 40 mg e(s) 40 mg [facility] capsule capsule capsule Take 1 Take 1 Take 1 capsule capsule capsule every day every day every day by oral by oral by oral route. route. route. gabapentin gabapentin No 1capsul TID gabapentin [facility] 100 mg 100 mg e(s) 100 mg [facility] capsule capsule capsule Take 1 Take 1 Take 1 capsule 3 capsule 3 capsule 3 times a day times a day times a by oral by oral day by route. route. oral route. levothyroxi levothyroxi No 1capsul Q1D levothyrox [facility] ne 150 mcg ne 150 mcg e(s) ine 150 Medical capsule capsule mcg Take 1 Take 1 capsule capsule capsule Take 1 every day every day capsule by oral by oral every day route. route. by oral route. megestrol megestrol No 10mL Q1D megestrol [facility] 400 mg/10 400 mg/10 400 mg/10 Medical mL (10 mL) mL (10 mL) mL (10 mL) oral oral oral suspension suspension suspension Take 10 mL Take 10 mL Take 10 mL every day every day every day by oral by oral by oral route. route. route. nitroglycer nitroglycer No 1 nitroglyce [facility] in 0.4 mg in 0.4 mg rin 0.4 mg Medical sublingual sublingual sublingual tablet tablet tablet Place [address] 1 tablet by tablet by tablet by sublingual sublingual sublingual route as route as route as needed. needed. needed. phenytoin phenytoin No 2capsul BID phenytoin [facility] sodium sodium e(s) sodium Medical extended extended extended 100 mg 100 mg 100 mg capsule capsule capsule Take 2 Take 2 Take 2 capsules capsules capsules twice a day twice a day twice a by oral by oral day by route. route. oral route. Pro-Stat Pro-Stat No 30mL BID Pro-Stat [facility] via [facility]WC 17 AWC 17 AWC 17 Medical gram-100 gram-100 gram-100 kcal/30 mL kcal/30 mL kcal/30 mL oral liquid oral liquid oral Take 30 mL Take 30 mL liquid twice a day twice a day Take 30 mL by oral by oral twice a route. route. day by oral route. tramadol 50 tramadol 50 No 1 Q6H tramadol [facility] mg tablet mg tablet 50 mg [facility]i nilson Take 1 Take 1 tablet tablet tablet Take 1 every 6 every 6 tablet hours by hours by every 6 oral route oral route hours by as needed. as needed. oral route as needed. valproic valproic No 20mL BID valproic [facility] via acid (as acid (as acid (as Med ical sodium sodium sodium salt) 250 salt) 250 salt) 250 mg/5 mL mg/5 mL mg/5 mL oral oral oral solution solution solution Take 20 mL Take 20 mL Take 20 mL twice a day twice a day twice a by oral by oral day by route. route. oral route. acetaminoph acetaminoph No 1 Q6H acetaminop [facility] en 300 en 300 hen 300 Medical mg-codeine mg-codeine mg-codeine 15 mg 15 mg 15 mg tablet Take tablet Take tablet 1 tablet 1 tablet Take 1 every 6 every 6 tablet hours by hours by every 6 oral route oral route hours by as needed. as needed. oral route as needed. acetaminoph acetaminoph No 20.3mL Q6H acetaminop [facility] en 650 en 650 hen 650 Medical mg/20.3 mL mg/20.3 mL mg/20.3 mL oral oral oral solution solution solution Take 20.3 Take 20.3 Take 20.3 mL every 6 mL every 6 mL every 6 hours by hours by hours by oral route oral route oral route as needed. as needed. as needed. Adult Low Adult Low No 1 Q1D Adult Low [facility] Dose Dose Dose [facility] Aspirin 81 Aspirin 81 Aspirin 81 mg mg mg tablet,rukhsana tablet,rukhsana tablet,del yed release yed release ayed Take 1 Take 1 release tablet tablet Take 1 every day every day tablet by oral by oral every day route. route. by oral route. Adult Adult No 1 Q1D Adult [facility] Multivitami Multivitami Multivitam Medical n n in (w-lutein) (w-lutein) (w-lutein) 200 200 200 mcg-137.5 mcg-137.5 mcg-137.5 mcg mcg mcg chewable chewable chewable tablet Take tablet Take tablet 1 tablet 1 tablet Take 1 every day every day tablet by oral by oral every day route. route. by oral route. Arginaid Arginaid No 1packet Q1D Arginaid [facility] 4.5 4.5 (s) 4.5 Medical gram-156 gram-156 gram-156 mg/9.2 gram mg/9.2 gram mg/9.2 oral powder oral powder gram oral packet Take packet Take powder 1 packet 1 packet packet every day every day Take 1 by oral by oral packet route. route. every day by oral route. atorvastati atorvastati No 1 Q1D atorvastat [facility] n 20 mg n 20 mg in 20 mg [facility] al tablet Take tablet Take tablet 1 tablet 1 tablet Take 1 every day every day tablet by oral by oral every day route at route at by oral dinner. dinner. route at dinner. Calcium 600 Calcium 600 No 1 Q1D Calcium [facility] with with 600 with Medical Vitamin D3 Vitamin D3 Vitamin D3 600 mg-10 600 mg-10 600 mg-10 mcg (400 mcg (400 mcg (400 unit) unit) unit) chewable chewable chewable tablet Take tablet Take tablet 1 tablet 1 tablet Take 1 every day every day tablet by oral by oral every day route. route. by oral route. Eliquis 2.5 Eliquis 2.5 No 1 BID Eliquis [facility] mg tablet mg tablet 2.5 mg Med ical Take 1 Take 1 tablet tablet tablet Take 1 twice a day twice a day tablet by oral by oral twice a route. route. day by oral route. famotidine famotidine No 1 Q1D famotidine [facility] 20 mg 20 mg 20 mg [facility] tablet Take tablet Take tablet 1 tablet 1 tablet Take 1 every day every day tablet by oral by oral every day route. route. by oral route. fluoxetine fluoxetine No 1capsul Q1D fluoxetine [facility] 40 mg 40 mg e(s) 40 mg [facility] capsule capsule capsule Take 1 Take 1 Take 1 capsule capsule capsule every day every day every day by oral by oral by oral route. route. route. gabapentin gabapentin No 1capsul TID gabapentin [facility] 100 mg 100 mg e(s) 100 mg [facility] capsule capsule capsule Take 1 Take 1 Take 1 capsule 3 capsule 3 capsule 3 times a day times a day times a by oral by oral day by route. route. oral route. levothyroxi levothyroxi No 1capsul Q1D levothyrox [facility] ne 150 mcg ne 150 mcg e(s) ine 150 Medical capsule capsule mcg Take 1 Take 1 capsule capsule capsule Take 1 every day every day capsule by oral by oral every day route. route. by oral route. megestrol megestrol No 10mL Q1D megestrol [facility] 400 mg/10 400 mg/10 400 mg/10 Medical mL (10 mL) mL (10 mL) mL (10 mL) oral oral oral suspension suspension suspension Take 10 mL Take 10 mL Take 10 mL every day every day every day by oral by oral by oral route. route. route. nitroglycer nitroglycer No 1 nitroglyce [facility] in 0.4 mg in 0.4 mg rin 0.4 mg Medical sublingual sublingual sublingual tablet tablet tablet Place [address] 1 tablet by tablet by tablet by sublingual sublingual sublingual route as route as route as needed. needed. needed. phenytoin phenytoin No 2capsul BID phenytoin [facility] sodium sodium e(s) sodium Medical extended extended extended 100 mg 100 mg 100 mg capsule capsule capsule Take 2 Take 2 Take 2 capsules capsules capsules twice a day twice a day twice a by oral by oral day by route. route. oral route. Pro-Stat Pro-Stat No 30mL BID Pro-Stat [facility] via AWC 17 AWC 17 AWC 17 Medical gram-100 gram-100 gram-100 kcal/30 mL kcal/30 mL kcal/30 mL oral liquid oral liquid oral Take 30 mL Take 30 mL liquid twice a day twice a day Take 30 mL by oral by oral twice a route. route. day by oral route. tramadol 50 tramadol 50 No 1 Q6H tramadol [facility] mg tablet mg tablet 50 mg Medi nilson Take 1 Take 1 tablet tablet tablet Take 1 every 6 every 6 tablet hours by hours by every 6 oral route oral route hours by as needed. as needed. oral route as needed. valproic valproic No 20mL BID valproic [facility] via acid (as acid (as acid (as Med ical sodium sodium sodium salt) 250 salt) 250 salt) 250 mg/5 mL mg/5 mL mg/5 mL oral oral oral solution solution solution Take 20 mL Take 20 mL Take 20 mL twice a day twice a day twice a by oral by oral day by route. route. oral route. acetaminoph acetaminoph No 1 Q6H acetaminop [facility] en 300 en 300 hen 300 Medical mg-codeine mg-codeine mg-codeine 15 mg 15 mg 15 mg tablet Take tablet Take tablet 1 tablet 1 tablet Take 1 every 6 every 6 tablet hours by hours by every 6 oral route oral route hours by as needed. as needed. oral route as needed. acetaminoph acetaminoph No 20.3mL Q6H acetaminop [facility] en 650 en 650 hen 650 Medical mg/20.3 mL mg/20.3 mL mg/20.3 mL oral oral oral solution solution solution Take 20.3 Take 20.3 Take 20.3 mL every 6 mL every 6 mL every 6 hours by hours by hours by oral route oral route oral route as needed. as needed. as needed. Adult Low Adult Low No 1 Q1D Adult Low [facility] Dose Dose Dose [facility] Aspirin 81 Aspirin 81 Aspirin 81 mg mg mg tablet,rukhsana tablet,rukhsana tablet,del yed release yed release ayed Take 1 Take 1 release tablet tablet Take 1 every day every day tablet by oral by oral every day route. route. by oral route. Adult Adult No 1 Q1D Adult [facility] Multivitami Multivitami Multivitam Medical n n in (w-lutein) (w-lutein) (w-lutein) 200 200 200 mcg-137.5 mcg-137.5 mcg-137.5 mcg mcg mcg chewable chewable chewable tablet Take tablet Take tablet 1 tablet 1 tablet Take 1 every day every day tablet by oral by oral every day route. route. by oral route. Arginaid Arginaid No 1packet Q1D Arginaid [facility] 4.5 4.5 (s) 4.5 Medical gram-156 gram-156 gram-156 mg/9.2 gram mg/9.2 gram mg/9.2 oral powder oral powder gram oral packet Take packet Take powder 1 packet 1 packet packet every day every day Take 1 by oral by oral packet route. route. every day by oral route. atorvastati atorvastati No 1 Q1D atorvastat [facility] n 20 mg n 20 mg in 20 mg [facility] al tablet Take tablet Take tablet 1 tablet 1 tablet Take 1 every day every day tablet by oral by oral every day route at route at by oral dinner. dinner. route at dinner. Calcium 600 Calcium 600 No 1 Q1D Calcium [facility] with with 600 with Medical Vitamin D3 Vitamin D3 Vitamin D3 600 mg-10 600 mg-10 600 mg-10 mcg (400 mcg (400 mcg (400 unit) unit) unit) chewable chewable chewable tablet Take tablet Take tablet 1 tablet 1 tablet Take 1 every day every day tablet by oral by oral every day route. route. by oral route. Eliquis 2.5 Eliquis 2.5 No 1 BID Eliquis [facility] mg tablet mg tablet 2.5 mg Med ical Take 1 Take 1 tablet tablet tablet Take 1 twice a day twice a day tablet by oral by oral twice a route. route. day by oral route. famotidine famotidine No 1 Q1D famotidine [facility] 20 mg 20 mg 20 mg [facility] tablet Take tablet Take tablet 1 tablet 1 tablet Take 1 every day every day tablet by oral by oral every day route. route. by oral route. fluoxetine fluoxetine No 1capsul Q1D fluoxetine [facility] 40 mg 40 mg e(s) 40 mg [facility] capsule capsule capsule Take 1 Take 1 Take 1 capsule capsule capsule every day every day every day by oral by oral by oral route. route. route. gabapentin gabapentin No 1capsul TID gabapentin [facility] 100 mg 100 mg e(s) 100 mg [facility] capsule capsule capsule Take 1 Take 1 Take 1 capsule 3 capsule 3 capsule 3 times a day times a day times a by oral by oral day by route. route. oral route. levothyroxi levothyroxi No 1capsul Q1D levothyrox [facility] ne 150 mcg ne 150 mcg e(s) ine 150 Medical capsule capsule mcg Take 1 Take 1 capsule capsule capsule Take 1 every day every day capsule by oral by oral every day route. route. by oral route. megestrol megestrol No 10mL Q1D megestrol [facility] 400 mg/10 400 mg/10 400 mg/10 Medical mL (10 mL) mL (10 mL) mL (10 mL) oral oral oral suspension suspension suspension Take 10 mL Take 10 mL Take 10 mL every day every day every day by oral by oral by oral route. route. route. nitroglycer nitroglycer No 1 nitroglyce [facility] in 0.4 mg in 0.4 mg rin 0.4 mg Medical sublingual sublingual sublingual tablet tablet tablet [address] 1 tablet by tablet by tablet by sublingual sublingual sublingual route as route as route as needed. needed. needed. phenytoin phenytoin No 2capsul BID phenytoin [facility] sodium sodium e(s) sodium Medical extended extended extended 100 mg 100 mg 100 mg capsule capsule capsule Take 2 Take 2 Take 2 capsules capsules capsules twice a day twice a day twice a by oral by oral day by route. route. oral route. Pro-Stat Pro-Stat No 30mL BID Pro-Stat [facility] via AWC 17 AWC 17 AWC 17 Medical gram-100 gram-100 gram-100 kcal/30 mL kcal/30 mL kcal/30 mL oral liquid oral liquid oral Take 30 mL Take 30 mL liquid twice a day twice a day Take 30 mL by oral by oral twice a route. route. day by oral route. tramadol 50 tramadol 50 No 1 Q6H tramadol [facility] mg tablet mg tablet 50 mg Medi nilson Take 1 Take 1 tablet tablet tablet Take 1 every 6 every 6 tablet hours by hours by every 6 oral route oral route hours by as needed. as needed. oral route as needed. valproic valproic No 20mL BID valproic [facility] via acid (as acid (as acid (as Med ical sodium sodium sodium salt) 250 salt) 250 salt) 250 mg/5 mL mg/5 mL mg/5 mL oral oral oral solution solution solution Take 20 mL Take 20 mL Take 20 mL twice a day twice a day twice a by oral by oral day by route. route. oral route. acetaminoph acetaminoph No 1 Q6H acetaminop [facility] en 300 en 300 hen 300 Medical mg-codeine mg-codeine mg-codeine 15 mg 15 mg 15 mg tablet Take tablet Take tablet 1 tablet 1 tablet Take 1 every 6 every 6 tablet hours by hours by every 6 oral route oral route hours by as needed. as needed. oral route as needed. acetaminoph acetaminoph No 20.3mL Q6H acetaminop [facility] en 650 en 650 hen 650 Medical mg/20.3 mL mg/20.3 mL mg/20.3 mL oral oral oral solution solution solution Take 20.3 Take 20.3 Take 20.3 mL every 6 mL every 6 mL every 6 hours by hours by hours by oral route oral route oral route as needed. as needed. as needed. Adult Low Adult Low No 1 Q1D Adult Low [facility] Dose Dose Dose [facility] Aspirin 81 Aspirin 81 Aspirin 81 mg mg mg tablet,rukhsana tablet,rukhsana tablet,del yed release yed release ayed Take 1 Take 1 release tablet tablet Take 1 every day every day tablet by oral by oral every day route. route. by oral route. Adult Adult No 1 Q1D Adult [facility] Multivitami Multivitami Multivitam Medical n n in (w-lutein) (w-lutein) (w-lutein) 200 200 200 mcg-137.5 mcg-137.5 mcg-137.5 mcg mcg mcg chewable chewable chewable tablet Take tablet Take tablet 1 tablet 1 tablet Take 1 every day every day tablet by oral by oral every day route. route. by oral route. Arginaid Arginaid No 1packet Q1D Arginaid [facility] 4.5 4.5 (s) 4.5 Medical gram-156 gram-156 gram-156 mg/9.2 gram mg/9.2 gram mg/9.2 oral powder oral powder gram oral packet Take packet Take powder 1 packet 1 packet packet every day every day Take 1 by oral by oral packet route. route. every day by oral route. atorvastati atorvastati No 1 Q1D atorvastat [facility] n 40 mg n 40 mg in 40 mg Medic al tablet Take tablet Take tablet 1 tablet 1 tablet Take 1 every day every day tablet by oral by oral every day route for route for by oral 30 days. 30 days. route for 30 days. Calcium 600 Calcium 600 No 1 Q1D Calcium [facility] with with 600 with Medical Vitamin D3 Vitamin D3 Vitamin D3 600 mg-10 600 mg-10 600 mg-10 mcg (400 mcg (400 mcg (400 unit) unit) unit) chewable chewable chewable tablet Take tablet Take tablet 1 tablet 1 tablet Take 1 every day every day tablet by oral by oral every day route. route. by oral route. Eliquis 2.5 Eliquis 2.5 No 1 BID Eliquis [facility] mg tablet mg tablet 2.5 mg Med ical Take 1 Take 1 tablet tablet tablet Take 1 twice a day twice a day tablet by oral by oral twice a route. route. day by oral route. famotidine famotidine No 1 Q1D famotidine [facility] 20 mg 20 mg 20 mg [facility] tablet Take tablet Take tablet 1 tablet 1 tablet Take 1 every day every day tablet by oral by oral every day route. route. by oral route. fluoxetine fluoxetine No 1capsul Q1D fluoxetine [facility] 40 mg 40 mg e(s) 40 mg [facility] capsule capsule capsule Take 1 Take 1 Take 1 capsule capsule capsule every day every day every day by oral by oral by oral route. route. route. gabapentin gabapentin No 1capsul TID gabapentin [facility] 100 mg 100 mg e(s) 100 mg [facility] capsule capsule capsule Take 1 Take 1 Take 1 capsule 3 capsule 3 capsule 3 times a day times a day times a by oral by oral day by route. route. oral route. levothyroxi levothyroxi No 1capsul Q1D levothyrox [facility] ne 150 mcg ne 150 mcg e(s) ine 150 Medical capsule capsule mcg Take 1 Take 1 capsule capsule capsule Take 1 every day every day capsule by oral by oral every day route. route. by oral route. megestrol megestrol No 10mL Q1D megestrol [facility] 400 mg/10 400 mg/10 400 mg/10 Medical mL (10 mL) mL (10 mL) mL (10 mL) oral oral oral suspension suspension suspension Take 10 mL Take 10 mL Take 10 mL every day every day every day by oral by oral by oral route. route. route. nitroglycer nitroglycer No 1 nitroglyce [facility] in 0.4 mg in 0.4 mg rin 0.4 mg Medical sublingual sublingual sublingual tablet tablet tablet Place [address] 1 tablet by tablet by tablet by sublingual sublingual sublingual route as route as route as needed. needed. needed. phenytoin phenytoin No 2capsul BID phenytoin [facility] sodium sodium e(s) sodium Medical extended extended extended 100 mg 100 mg 100 mg capsule capsule capsule Take 2 Take 2 Take 2 capsules capsules capsules twice a day twice a day twice a by oral by oral day by route. route. oral route. Pro-Stat Pro-Stat No 30mL BID Pro-Stat [facility] via AWC 17 AWC 17 AWC 17 Medical gram-100 gram-100 gram-100 kcal/30 mL kcal/30 mL kcal/30 mL oral liquid oral liquid oral Take 30 mL Take 30 mL liquid twice a day twice a day Take 30 mL by oral by oral twice a route. route. day by oral route. tramadol 50 tramadol 50 No 1 Q6H tramadol [facility] mg tablet mg tablet 50 mg Medi nilson Take 1 Take 1 tablet tablet tablet Take 1 every 6 every 6 tablet hours by hours by every 6 oral route oral route hours by as needed. as needed. oral route as needed. valproic valproic No 20mL BID valproic [facility] via acid (as acid (as acid (as Med ical sodium sodium sodium salt) 250 salt) 250 salt) 250 mg/5 mL mg/5 mL mg/5 mL oral oral oral solution solution solution Take 20 mL Take 20 mL Take 20 mL twice a day twice a day twice a by oral by oral day by route. route. oral route. acetaminoph acetaminoph No 1 Q6H acetaminop [facility] en 300 en 300 hen 300 Medical mg-codeine mg-codeine mg-codeine 15 mg 15 mg 15 mg tablet Take tablet Take tablet 1 tablet 1 tablet Take 1 every 6 every 6 tablet hours by hours by every 6 oral route oral route hours by as needed. as needed. oral route as needed. acetaminoph acetaminoph No 20.3mL Q6H acetaminop [facility] en 650 en 650 hen 650 Medical mg/20.3 mL mg/20.3 mL mg/20.3 mL oral oral oral solution solution solution Take 20.3 Take 20.3 Take 20.3 mL every 6 mL every 6 mL every 6 hours by hours by hours by oral route oral route oral route as needed. as needed. as needed. Adult Low Adult Low No 1 Q1D Adult Low [facility] Dose Dose Dose [facility] Aspirin 81 Aspirin 81 Aspirin 81 mg mg mg tablet,rukhsana tablet,rukhsana tablet,del yed release yed release ayed Take 1 Take 1 release tablet tablet Take 1 every day every day tablet by oral by oral every day route. route. by oral route. Adult Adult No 1 Q1D Adult [facility] Multivitami Multivitami Multivitam Medical n n in (w-lutein) (w-lutein) (w-lutein) 200 200 200 mcg-137.5 mcg-137.5 mcg-137.5 mcg mcg mcg chewable chewable chewable tablet Take tablet Take tablet 1 tablet 1 tablet Take 1 every day every day tablet by oral by oral every day route. route. by oral route. Arginaid Arginaid No 1packet Q1D Arginaid [facility] 4.5 4.5 (s) 4.5 Medical gram-156 gram-156 gram-156 mg/9.2 gram mg/9.2 gram mg/9.2 oral powder oral powder gram oral packet Take packet Take powder 1 packet 1 packet packet every day every day Take 1 by oral by oral packet route. route. every day by oral route. atorvastati atorvastati No 1 Q1D atorvastat [facility] n 40 mg n 40 mg in 40 mg Medic al tablet Take tablet Take tablet 1 tablet 1 tablet Take 1 every day every day tablet by oral by oral every day route for route for by oral 30 days. 30 days. route for 30 days. Calcium 600 Calcium 600 No 1 Q1D Calcium [facility] with with 600 with Medical Vitamin D3 Vitamin D3 Vitamin D3 600 mg-10 600 mg-10 600 mg-10 mcg (400 mcg (400 mcg (400 unit) unit) unit) chewable chewable chewable tablet Take tablet Take tablet 1 tablet 1 tablet Take 1 every day every day tablet by oral by oral every day route. route. by oral route. Eliquis 2.5 Eliquis 2.5 No 1 BID Eliquis [facility] mg tablet mg tablet 2.5 mg Med ical Take 1 Take 1 tablet tablet tablet Take 1 twice a day twice a day tablet by oral by oral twice a route. route. day by oral route. famotidine famotidine No 1 Q1D famotidine [facility] 20 mg 20 mg 20 mg [facility] tablet Take tablet Take tablet 1 tablet 1 tablet Take 1 every day every day tablet by oral by oral every day route. route. by oral route. fluoxetine fluoxetine No 1capsul Q1D fluoxetine [facility] 40 mg 40 mg e(s) 40 mg [facility] capsule capsule capsule Take 1 Take 1 Take 1 capsule capsule capsule every day every day every day by oral by oral by oral route. route. route. gabapentin gabapentin No 1capsul TID gabapentin [facility] 100 mg 100 mg e(s) 100 mg [facility] capsule capsule capsule Take 1 Take 1 Take 1 capsule 3 capsule 3 capsule 3 times a day times a day times a by oral by oral day by route. route. oral route. levothyroxi levothyroxi No 1capsul Q1D levothyrox [facility] ne 150 mcg ne 150 mcg e(s) ine 150 Medical capsule capsule mcg Take 1 Take 1 capsule capsule capsule Take 1 every day every day capsule by oral by oral every day route. route. by oral route. nitroglycer nitroglycer No 1 nitroglyce [facility] in 0.4 mg in 0.4 mg rin 0.4 mg Medical sublingual sublingual sublingual tablet tablet tablet Place [address] 1 tablet by tablet by tablet by sublingual sublingual sublingual route as route as route as needed. needed. needed. phenytoin phenytoin No 2capsul BID phenytoin [facility] sodium sodium e(s) sodium Medical extended extended extended 100 mg 100 mg 100 mg capsule capsule capsule Take 2 Take 2 Take 2 capsules capsules capsules twice a day twice a day twice a by oral by oral day by route. route. oral route. Pro-Stat Pro-Stat No 30mL BID Pro-Stat [facility] via AWC 17 AWC 17 AWC 17 Medical gram-100 gram-100 gram-100 kcal/30 mL kcal/30 mL kcal/30 mL oral liquid oral liquid oral Take 30 mL Take 30 mL liquid twice a day twice a day Take 30 mL by oral by oral twice a route. route. day by oral route. tramadol 50 tramadol 50 No 1 Q6H tramadol [facility] mg tablet mg tablet 50 mg Medi nilson Take 1 Take 1 tablet tablet tablet Take 1 every 6 every 6 tablet hours by hours by every 6 oral route oral route hours by as needed. as needed. oral route as needed. valproic valproic No 20mL BID valproic [facility] via acid (as acid (as acid (as Med ical sodium sodium sodium salt) 250 salt) 250 salt) 250 mg/5 mL mg/5 mL mg/5 mL oral oral oral solution solution solution Take 20 mL Take 20 mL Take 20 mL twice a day twice a day twice a by oral by oral day by route. route. oral route. acetaminoph acetaminoph No 1 Q6H acetaminop [facility] en 300 en 300 hen 300 Medical mg-codeine mg-codeine mg-codeine 15 mg 15 mg 15 mg tablet Take tablet Take tablet 1 tablet 1 tablet Take 1 every 6 every 6 tablet hours by hours by every 6 oral route oral route hours by as needed. as needed. oral route as needed. acetaminoph acetaminoph No 20.3mL Q6H acetaminop [facility] en 650 en 650 hen 650 Medical mg/20.3 mL mg/20.3 mL mg/20.3 mL oral oral oral solution solution solution Take 20.3 Take 20.3 Take 20.3 mL every 6 mL every 6 mL every 6 hours by hours by hours by oral route oral route oral route as needed. as needed. as needed. Adult Low Adult Low No 1 Q1D Adult Low [facility] Dose Dose Dose Medical Aspirin 81 Aspirin 81 Aspirin 81 mg mg mg tablet,rukhsana tablet,rukhsana tablet,del yed release yed release ayed Take 1 Take 1 release tablet tablet Take 1 every day every day tablet by oral by oral every day route. route. by oral route. Adult Adult No 1 Q1D Adult [facility] Multivitami Multivitami Multivitam Medical n n in (w-lutein) (w-lutein) (w-lutein) 200 200 200 mcg-137.5 mcg-137.5 mcg-137.5 mcg mcg mcg chewable chewable chewable tablet Take tablet Take tablet 1 tablet 1 tablet Take 1 every day every day tablet by oral by oral every day route. route. by oral route. Arginaid Arginaid No 1packet Q1D Arginaid [facility] 4.5 4.5 (s) 4.5 Medical gram-156 gram-156 gram-156 mg/9.2 gram mg/9.2 gram mg/9.2 oral powder oral powder gram oral packet Take packet Take powder 1 packet 1 packet packet every day every day Take 1 by oral by oral packet route. route. every day by oral route. atorvastati atorvastati No 1 Q1D atorvastat [facility] n 40 mg n 40 mg in 40 mg Medic al tablet Take tablet Take tablet 1 tablet 1 tablet Take 1 every day every day tablet by oral by oral every day route for route for by oral 30 days. 30 days. route for 30 days. Calcium 600 Calcium 600 No 1 Q1D Calcium [facility] with with 600 with Medical Vitamin D3 Vitamin D3 Vitamin D3 600 mg-10 600 mg-10 600 mg-10 mcg (400 mcg (400 mcg (400 unit) unit) unit) chewable chewable chewable tablet Take tablet Take tablet 1 tablet 1 tablet Take 1 every day every day tablet by oral by oral every day route. route. by oral route. Eliquis 2.5 Eliquis 2.5 No 1 BID Eliquis [facility] mg tablet mg tablet 2.5 mg Med ical Take 1 Take 1 tablet tablet tablet Take 1 twice a day twice a day tablet by oral by oral twice a route. route. day by oral route. famotidine famotidine No 1 Q1D famotidine [facility] 20 mg 20 mg 20 mg [facility] tablet Take tablet Take tablet 1 tablet 1 tablet Take 1 every day every day tablet by oral by oral every day route. route. by oral route. fluoxetine fluoxetine No 1capsul Q1D fluoxetine [facility] 40 mg 40 mg e(s) 40 mg [facility] capsule capsule capsule Take 1 Take 1 Take 1 capsule capsule capsule every day every day every day by oral by oral by oral route. route. route. gabapentin gabapentin No 1capsul TID gabapentin [facility] 100 mg 100 mg e(s) 100 mg [facility] capsule capsule capsule Take 1 Take 1 Take 1 capsule 3 capsule 3 capsule 3 times a day times a day times a by oral by oral day by route. route. oral route. levothyroxi levothyroxi No 1capsul Q1D levothyrox [facility] ne 150 mcg ne 150 mcg e(s) ine 150 Medical capsule capsule mcg Take 1 Take 1 capsule capsule capsule Take 1 every day every day capsule by oral by oral every day route. route. by oral route. nitroglycer nitroglycer No 1 nitroglyce [facility] in 0.4 mg in 0.4 mg rin 0.4 mg Medical sublingual sublingual sublingual tablet tablet tablet Place [address] 1 tablet by tablet by tablet by sublingual sublingual sublingual route as route as route as needed. needed. needed. phenytoin phenytoin No 2capsul BID phenytoin [facility] sodium sodium e(s) sodium Medical extended extended extended 100 mg 100 mg 100 mg capsule capsule capsule Take 2 Take 2 Take 2 capsules capsules capsules twice a day twice a day twice a by oral by oral day by route. route. oral route. Pro-Stat Pro-Stat No 30mL BID Pro-Stat [facility] via AWC 17 AWC 17 AWC 17 Medical gram-100 gram-100 gram-100 kcal/30 mL kcal/30 mL kcal/30 mL oral liquid oral liquid oral Take 30 mL Take 30 mL liquid twice a day twice a day Take 30 mL by oral by oral twice a route. route. day by oral route. tramadol 50 tramadol 50 No 1 Q6H tramadol [facility] mg tablet mg tablet 50 mg Medi nilson Take 1 Take 1 tablet tablet tablet Take 1 every 6 every 6 tablet hours by hours by every 6 oral route oral route hours by as needed. as needed. oral route as needed. valproic valproic No 20mL BID valproic [facility] via acid (as acid (as acid (as Med ical sodium sodium sodium salt) 250 salt) 250 salt) 250 mg/5 mL mg/5 mL mg/5 mL oral oral oral solution solution solution Take 20 mL Take 20 mL Take 20 mL twice a day twice a day twice a by oral by oral day by route. route. oral route. acetaminoph acetaminoph No 1 Q6H acetaminop [facility] en 300 en 300 hen 300 Medical mg-codeine mg-codeine mg-codeine 15 mg 15 mg 15 mg tablet Take tablet Take tablet 1 tablet 1 tablet Take 1 every 6 every 6 tablet hours by hours by every 6 oral route oral route hours by as needed. as needed. oral route as needed. acetaminoph acetaminoph No 20.3mL Q6H acetaminop [facility] en 650 en 650 hen 650 Medical mg/20.3 mL mg/20.3 mL mg/20.3 mL oral oral oral solution solution solution Take 20.3 Take 20.3 Take 20.3 mL every 6 mL every 6 mL every 6 hours by hours by hours by oral route oral route oral route as needed. as needed. as needed. Adult Low Adult Low No 1 Q1D Adult Low [facility] Dose Dose Dose Medical Aspirin 81 Aspirin 81 Aspirin 81 mg mg mg tablet,rukhsana tablet,rukhsana tablet,del yed release yed release ayed Take 1 Take 1 release tablet tablet Take 1 every day every day tablet by oral by oral every day route. route. by oral route. Adult Adult No 1 Q1D Adult [facility] Multivitami Multivitami Multivitam Medical n n in (w-lutein) (w-lutein) (w-lutein) 200 200 200 mcg-137.5 mcg-137.5 mcg-137.5 mcg mcg mcg chewable chewable chewable tablet Take tablet Take tablet 1 tablet 1 tablet Take 1 every day every day tablet by oral by oral every day route. route. by oral route. Arginaid Arginaid No 1packet Q1D Arginaid [facility] 4.5 4.5 (s) 4.5 Medical gram-156 gram-156 gram-156 mg/9.2 gram mg/9.2 gram mg/9.2 oral powder oral powder gram oral packet Take packet Take powder 1 packet 1 packet packet every day every day Take 1 by oral by oral packet route. route. every day by oral route. atorvastati atorvastati No 1 Q1D atorvastat [facility] n 40 mg n 40 mg in 40 mg Medic al tablet Take tablet Take tablet 1 tablet 1 tablet Take 1 every day every day tablet by oral by oral every day route for route for by oral 30 days. 30 days. route for 30 days. Calcium 600 Calcium 600 No 1 Q1D Calcium [facility] with with 600 with Medical Vitamin D3 Vitamin D3 Vitamin D3 600 mg-10 600 mg-10 600 mg-10 mcg (400 mcg (400 mcg (400 unit) unit) unit) chewable chewable chewable tablet Take tablet Take tablet 1 tablet 1 tablet Take 1 every day every day tablet by oral by oral every day route. route. by oral route. Eliquis 2.5 Eliquis 2.5 No 1 BID Eliquis [facility] mg tablet mg tablet 2.5 mg Med ical Take 1 Take 1 tablet tablet tablet Take 1 twice a day twice a day tablet by oral by oral twice a route. route. day by oral route. famotidine famotidine No 1 Q1D famotidine [facility] 20 mg 20 mg 20 mg [facility] tablet Take tablet Take tablet 1 tablet 1 tablet Take 1 every day every day tablet by oral by oral every day route. route. by oral route. fluoxetine fluoxetine No 1capsul Q1D fluoxetine [facility] 40 mg 40 mg e(s) 40 mg [facility] capsule capsule capsule Take 1 Take 1 Take 1 capsule capsule capsule every day every day every day by oral by oral by oral route. route. route. gabapentin gabapentin No 1capsul TID gabapentin [facility] 100 mg 100 mg e(s) 100 mg [facility] capsule capsule capsule Take 1 Take 1 Take 1 capsule 3 capsule 3 capsule 3 times a day times a day times a by oral by oral day by route. route. oral route. levothyroxi levothyroxi No 1capsul Q1D levothyrox [facility] ne 150 mcg ne 150 mcg e(s) ine 150 Medical capsule capsule mcg Take 1 Take 1 capsule capsule capsule Take 1 every day every day capsule by oral by oral every day route. route. by oral route. nitroglycer nitroglycer No 1 nitroglyce [facility] in 0.4 mg in 0.4 mg rin 0.4 mg Medical sublingual sublingual sublingual tablet tablet tablet Place [address] 1 tablet by tablet by tablet by sublingual sublingual sublingual route as route as route as needed. needed. needed. phenytoin phenytoin No 2capsul BID phenytoin [facility] sodium sodium e(s) sodium Medical extended extended extended 100 mg 100 mg 100 mg capsule capsule capsule Take 2 Take 2 Take 2 capsules capsules capsules twice a day twice a day twice a by oral by oral day by route. route. oral route. Pro-Stat Pro-Stat No 30mL BID Pro-Stat [facility] via AWC 17 AWC 17 AWC 17 Medical gram-100 gram-100 gram-100 kcal/30 mL kcal/30 mL kcal/30 mL oral liquid oral liquid oral Take 30 mL Take 30 mL liquid twice a day twice a day Take 30 mL by oral by oral twice a route. route. day by oral route. tramadol 50 tramadol 50 No 1 Q6H tramadol [facility] mg tablet mg tablet 50 mg Medi nilson Take 1 Take 1 tablet tablet tablet Take 1 every 6 every 6 tablet hours by hours by every 6 oral route oral route hours by as needed. as needed. oral route as needed. valproic valproic No 20mL BID valproic [facility] via acid (as acid (as acid (as Med ical sodium sodium sodium salt) 250 salt) 250 salt) 250 mg/5 mL mg/5 mL mg/5 mL oral oral oral solution solution solution Take 20 mL Take 20 mL Take 20 mL twice a day twice a day twice a by oral by oral day by route. route. oral route. acetaminoph acetaminoph No 1 Q6H acetaminop [facility] en 300 en 300 hen 300 Medical mg-codeine mg-codeine mg-codeine 15 mg 15 mg 15 mg tablet Take tablet Take tablet 1 tablet 1 tablet Take 1 every 6 every 6 tablet hours by hours by every 6 oral route oral route hours by as needed. as needed. oral route as needed. acetaminoph acetaminoph No 20.3mL Q6H acetaminop [facility] en 650 en 650 hen 650 Medical mg/20.3 mL mg/20.3 mL mg/20.3 mL oral oral oral solution solution solution Take 20.3 Take 20.3 Take 20.3 mL every 6 mL every 6 mL every 6 hours by hours by hours by oral route oral route oral route as needed. as needed. as needed. Adult Low Adult Low No 1 Q1D Adult Low [facility] Dose Dose Dose Medical Aspirin 81 Aspirin 81 Aspirin 81 mg mg mg tablet,rukhsana tablet,rukhsana tablet,del yed release yed release ayed Take 1 Take 1 release tablet tablet Take 1 every day every day tablet by oral by oral every day route. route. by oral route. Adult Adult No 1 Q1D Adult [facility] Multivitami Multivitami Multivitam Medical n n in (w-lutein) (w-lutein) (w-lutein) 200 200 200 mcg-137.5 mcg-137.5 mcg-137.5 mcg mcg mcg chewable chewable chewable tablet Take tablet Take tablet 1 tablet 1 tablet Take 1 every day every day tablet by oral by oral every day route. route. by oral route. Arginaid Arginaid No 1packet Q1D Arginaid [facility] 4.5 4.5 (s) 4.5 Medical gram-156 gram-156 gram-156 mg/9.2 gram mg/9.2 gram mg/9.2 oral powder oral powder gram oral packet Take packet Take powder 1 packet 1 packet packet every day every day Take 1 by oral by oral packet route. route. every day by oral route. atorvastati atorvastati No 1 Q1D atorvastat [facility] n 40 mg n 40 mg in 40 mg Medic al tablet Take tablet Take tablet 1 tablet 1 tablet Take 1 every day every day tablet by oral by oral every day route for route for by oral 30 days. 30 days. route for 30 days. Calcium 600 Calcium 600 No 1 Q1D Calcium [facility] with with 600 with Medical Vitamin D3 Vitamin D3 Vitamin D3 600 mg-10 600 mg-10 600 mg-10 mcg (400 mcg (400 mcg (400 unit) unit) unit) chewable chewable chewable tablet Take tablet Take tablet 1 tablet 1 tablet Take 1 every day every day tablet by oral by oral every day route. route. by oral route. Eliquis 2.5 Eliquis 2.5 No 1 BID Eliquis [facility] mg tablet mg tablet 2.5 mg Med ical Take 1 Take 1 tablet tablet tablet Take 1 twice a day twice a day tablet by oral by oral twice a route. route. day by oral route. famotidine famotidine No 1 Q1D famotidine [facility] 20 mg 20 mg 20 mg [facility] tablet Take tablet Take tablet 1 tablet 1 tablet Take 1 every day every day tablet by oral by oral every day route. route. by oral route. fluoxetine fluoxetine No 1capsul Q1D fluoxetine [facility] 40 mg 40 mg e(s) 40 mg [facility] capsule capsule capsule Take 1 Take 1 Take 1 capsule capsule capsule every day every day every day by oral by oral by oral route. route. route. gabapentin gabapentin No 1capsul TID gabapentin [facility] 100 mg 100 mg e(s) 100 mg [facility] capsule capsule capsule Take 1 Take 1 Take 1 capsule 3 capsule 3 capsule 3 times a day times a day times a by oral by oral day by route. route. oral route. levothyroxi levothyroxi No 1capsul Q1D levothyrox [facility] ne 150 mcg ne 150 mcg e(s) ine 150 Medical capsule capsule mcg Take 1 Take 1 capsule capsule capsule Take 1 every day every day capsule by oral by oral every day route. route. by oral route. nitroglycer nitroglycer No 1 nitroglyce [facility] in 0.4 mg in 0.4 mg rin 0.4 mg Medical sublingual sublingual sublingual tablet tablet tablet Place [address] 1 tablet by tablet by tablet by sublingual sublingual sublingual route as route as route as needed. needed. needed. phenytoin phenytoin No 2capsul BID phenytoin [facility] sodium sodium e(s) sodium Medical extended extended extended 100 mg 100 mg 100 mg capsule capsule capsule Take 2 Take 2 Take 2 capsules capsules capsules twice a day twice a day twice a by oral by oral day by route. route. oral route. Pro-Stat Pro-Stat No 30mL BID Pro-Stat Mikaela via AWC 17 AWC 17 AWC 17 Medical gram-100 gram-100 gram-100 kcal/30 mL kcal/30 mL kcal/30 mL oral liquid oral liquid oral Take 30 mL Take 30 mL liquid twice a day twice a day Take 30 mL by oral by oral twice a route. route. day by oral route. tramadol 50 tramadol 50 No 1 Q6H tramadol [facility] mg tablet mg tablet 50 mg Medi nilson Take 1 Take 1 tablet tablet tablet Take 1 every 6 every 6 tablet hours by hours by every 6 oral route oral route hours by as needed. as needed. oral route as needed. valproic valproic No 20mL BID valproic Mikaela via acid (as acid (as acid (as Med ical sodium sodium sodium salt) 250 salt) 250 salt) 250 mg/5 mL mg/5 mL mg/5 mL oral oral oral solution solution solution Take 20 mL Take 20 mL Take 20 mL twice a day twice a day twice a by oral by oral day by route. route. oral route. acetaminoph acetaminoph No 1 Q6H acetaminop [facility] en 300 en 300 hen 300 Medical mg-codeine mg-codeine mg-codeine 15 mg 15 mg 15 mg tablet Take tablet Take tablet 1 tablet 1 tablet Take 1 every 6 every 6 tablet hours by hours by every 6 oral route oral route hours by as needed. as needed. oral route as needed. acetaminoph acetaminoph No 20.3mL Q6H acetaminop [facility] en 650 en 650 hen 650 Medical mg/20.3 mL mg/20.3 mL mg/20.3 mL oral oral oral solution solution solution Take 20.3 Take 20.3 Take 20.3 mL every 6 mL every 6 mL every 6 hours by hours by hours by oral route oral route oral route as needed. as needed. as needed. Adult Low Adult Low No 1 Q1D Adult Low [facility] Dose Dose Dose [facility] Aspirin 81 Aspirin 81 Aspirin 81 mg mg mg tablet,rukhsana tablet,rukhsana tablet,del yed release yed release ayed Take 1 Take 1 release tablet tablet Take 1 every day every day tablet by oral by oral every day route. route. by oral route. Adult Adult No 1 Q1D Adult [facility] Multivitami Multivitami Multivitam Medical n n in (w-lutein) (w-lutein) (w-lutein) 200 200 200 mcg-137.5 mcg-137.5 mcg-137.5 mcg mcg mcg chewable chewable chewable tablet Take tablet Take tablet 1 tablet 1 tablet Take 1 every day every day tablet by oral by oral every day route. route. by oral route. Arginaid Arginaid No 1packet Q1D Arginaid [facility] 4.5 4.5 (s) 4.5 Medical gram-156 gram-156 gram-156 mg/9.2 gram mg/9.2 gram mg/9.2 oral powder oral powder gram oral packet Take packet Take powder 1 packet 1 packet packet every day every day Take 1 by oral by oral packet route. route. every day by oral route. atorvastati atorvastati No 1 Q1D atorvastat [facility] n 40 mg n 40 mg in 40 mg Medic al tablet Take tablet Take tablet 1 tablet 1 tablet Take 1 every day every day tablet by oral by oral every day route for route for by oral 30 days. 30 days. route for 30 days. Calcium 600 Calcium 600 No 1 Q1D Calcium [facility] with with 600 with Medical Vitamin D3 Vitamin D3 Vitamin D3 600 mg-10 600 mg-10 600 mg-10 mcg (400 mcg (400 mcg (400 unit) unit) unit) chewable chewable chewable tablet Take tablet Take tablet 1 tablet 1 tablet Take 1 every day every day tablet by oral by oral every day route. route. by oral route. Eliquis 2.5 Eliquis 2.5 No 1 BID Eliquis [facility] mg tablet mg tablet 2.5 mg Med ical Take 1 Take 1 tablet tablet tablet Take 1 twice a day twice a day tablet by oral by oral twice a route. route. day by oral route. famotidine famotidine No 1 Q1D famotidine [facility] 20 mg 20 mg 20 mg Medical tablet Take tablet Take tablet 1 tablet 1 tablet Take 1 every day every day tablet by oral by oral every day route. route. by oral route. fluoxetine fluoxetine No 1capsul Q1D fluoxetine [facility] 40 mg 40 mg e(s) 40 mg Medical capsule capsule capsule Take 1 Take 1 Take 1 capsule capsule capsule every day every day every day by oral by oral by oral route. route. route. gabapentin gabapentin No 1capsul TID gabapentin [facility] 100 mg 100 mg e(s) 100 mg Medical capsule capsule capsule Take 1 Take 1 Take 1 capsule 3 capsule 3 capsule 3 times a day times a day times a by oral by oral day by route. route. oral route. levothyroxi levothyroxi No 1capsul Q1D levothyrox [facility] ne 150 mcg ne 150 mcg e(s) ine 150 Medical capsule capsule mcg Take 1 Take 1 capsule capsule capsule Take 1 every day every day capsule by oral by oral every day route. route. by oral route. nitroglycer nitroglycer No 1 nitroglyce [facility] in 0.4 mg in 0.4 mg rin 0.4 mg Medical sublingual sublingual sublingual tablet tablet tablet Place [address] 1 tablet by tablet by tablet by sublingual sublingual sublingual route as route as route as needed. needed. needed. phenytoin phenytoin No 2capsul BID phenytoin [facility] sodium sodium e(s) sodium Medical extended extended extended 100 mg 100 mg 100 mg capsule capsule capsule Take 2 Take 2 Take 2 capsules capsules capsules twice a day twice a day twice a by oral by oral day by route. route. oral route. Pro-Stat Pro-Stat No 30mL BID Pro-Stat Mikaela via AWC 17 AWC 17 AWC 17 Medical gram-100 gram-100 gram-100 kcal/30 mL kcal/30 mL kcal/30 mL oral liquid oral liquid oral Take 30 mL Take 30 mL liquid twice a day twice a day Take 30 mL by oral by oral twice a route. route. day by oral route. tramadol 50 tramadol 50 No 1 Q6H tramadol [facility] mg tablet mg tablet 50 mg Medi nilson Take 1 Take 1 tablet tablet tablet Take 1 every 6 every 6 tablet hours by hours by every 6 oral route oral route hours by as needed. as needed. oral route as needed. valproic valproic No 20mL BID valproic [facility] via acid (as acid (as acid (as Med ical sodium sodium sodium salt) 250 salt) 250 salt) 250 mg/5 mL mg/5 mL mg/5 mL oral oral oral solution solution solution Take 20 mL Take 20 mL Take 20 mL twice a day twice a day twice a by oral by oral day by route. route. oral route. acetaminoph acetaminoph No 20.3mL Q6H acetaminop [facility] en 650 en 650 hen 650 Medical mg/20.3 mL mg/20.3 mL mg/20.3 mL oral oral oral solution solution solution Take 20.3 Take 20.3 Take 20.3 mL every 6 mL every 6 mL every 6 hours by hours by hours by oral route oral route oral route as needed. as needed. as needed. Adult Low Adult Low No 1 Q1D Adult Low [facility] Dose Dose Dose [facility] Aspirin 81 Aspirin 81 Aspirin 81 mg mg mg tablet,rukhsana tablet,rukhsana tablet,del yed release yed release ayed Take 1 Take 1 release tablet tablet Take 1 every day every day tablet by oral by oral every day route. route. by oral route. Adult Adult No 1 Q1D Adult [facility] Multivitami Multivitami Multivitam Medical n n in (w-lutein) (w-lutein) (w-lutein) 200 200 200 mcg-137.5 mcg-137.5 mcg-137.5 mcg mcg mcg chewable chewable chewable tablet Take tablet Take tablet 1 tablet 1 tablet Take 1 every day every day tablet by oral by oral every day route. route. by oral route. Arginaid Arginaid No 1packet Q1D Arginaid [facility] 4.5 4.5 (s) 4.5 Medical gram-156 gram-156 gram-156 mg/9.2 gram mg/9.2 gram mg/9.2 oral powder oral powder gram oral packet Take packet Take powder 1 packet 1 packet packet every day every day Take 1 by oral by oral packet route. route. every day by oral route. atorvastati atorvastati No 1 Q1D atorvastat [facility] n 40 mg n 40 mg in 40 mg Medic al tablet Take tablet Take tablet 1 tablet 1 tablet Take 1 every day every day tablet by oral by oral every day route for route for by oral 30 days. 30 days. route for 30 days. Calcium 600 Calcium 600 No 1 Q1D Calcium [facility] with with 600 with Medical Vitamin D3 Vitamin D3 Vitamin D3 600 mg-10 600 mg-10 600 mg-10 mcg (400 mcg (400 mcg (400 unit) unit) unit) chewable chewable chewable tablet Take tablet Take tablet 1 tablet 1 tablet Take 1 every day every day tablet by oral by oral every day route. route. by oral route. Eliquis 2.5 Eliquis 2.5 No 1 BID Eliquis [facility] mg tablet mg tablet 2.5 mg Med ical Take 1 Take 1 tablet tablet tablet Take 1 twice a day twice a day tablet by oral by oral twice a route. route. day by oral route. famotidine famotidine No 1 Q1D famotidine [facility] 20 mg 20 mg 20 mg [facility] tablet Take tablet Take tablet 1 tablet 1 tablet Take 1 every day every day tablet by oral by oral every day route. route. by oral route. fluoxetine fluoxetine No 1capsul Q1D fluoxetine [facility] 40 mg 40 mg e(s) 40 mg Medical capsule capsule capsule Take 1 Take 1 Take 1 capsule capsule capsule every day every day every day by oral by oral by oral route. route. route. gabapentin gabapentin No 1capsul TID gabapentin [facility] 100 mg 100 mg e(s) 100 mg Medical capsule capsule capsule Take 1 Take 1 Take 1 capsule 3 capsule 3 capsule 3 times a day times a day times a by oral by oral day by route. route. oral route. levothyroxi levothyroxi No 1capsul Q1D levothyrox [facility] ne 150 mcg ne 150 mcg e(s) ine 150 Medical capsule capsule mcg Take 1 Take 1 capsule capsule capsule Take 1 every day every day capsule by oral by oral every day route. route. by oral route. nitroglycer nitroglycer No 1 nitroglyce [facility] in 0.4 mg in 0.4 mg rin 0.4 mg Medical sublingual sublingual sublingual tablet tablet tablet Place [address] 1 tablet by tablet by tablet by sublingual sublingual sublingual route as route as route as needed. needed. needed. phenytoin phenytoin No 2capsul BID phenytoin [facility] sodium sodium e(s) sodium Medical extended extended extended 100 mg 100 mg 100 mg capsule capsule capsule Take 2 Take 2 Take 2 capsules capsules capsules twice a day twice a day twice a by oral by oral day by route. route. oral route. Pro-Stat Pro-Stat No 30mL BID Pro-Stat Mikaela via AWC 17 AWC 17 AWC 17 Medical gram-100 gram-100 gram-100 kcal/30 mL kcal/30 mL kcal/30 mL oral liquid oral liquid oral Take 30 mL Take 30 mL liquid twice a day twice a day Take 30 mL by oral by oral twice a route. route. day by oral route. Vital Signs Vital Name Observation Time Observation Value Comments Source WEIGHT 2021-03-31 04:00:00 87.8 kg HEIGHT 2021-03-28 21:00:00 170.2 cm WEIGHT 2021-03-28 21:00:00 87.8 kg BP Diastolic 2022-11-20 00:00:00 78 mm[Hg] [facility] Height 2022-11-20 00:00:00 70 [in_i] [facility] BMI (Body Mass Index) 2022-11-20 00:00:00 26.5 kg/m2 [facility] BP Systolic 2022-11-20 00:00:00 133 mm[Hg] Ale[facility]andra [facility] Body Weight 2022-11-20 00:00:00 2960 [oz_av] [facility] BP Diastolic 2022-11-06 00:00:00 77 mm[Hg] [facility] Height 2022-11-06 00:00:00 70 [in_i] [facility] BMI (Body Mass Index) 2022-11-06 00:00:00 26.5 kg/m2 [facility] BP Systolic 2022-11-06 00:00:00 124 mm[Hg] [place] [facility] Body Weight 2022-11-06 00:00:00 2960 [oz_av] [place] [facility] BP Diastolic 2022-11-03 00:00:00 73 mm[Hg] [place] [facility] Height 2022-11-03 00:00:00 70 [in_i] [facility] BMI (Body Mass Index) 2022-11-03 00:00:00 26.5 kg/m2 [facility] BP Systolic 2022-11-03 00:00:00 103 mm[Hg] [place] [facility] Body Weight 2022-11-03 00:00:00 2960 [oz_av] [place] [facility] BP Diastolic 2022-10-23 00:00:00 73 mm[Hg] [place] [facility] Height 2022-10-23 00:00:00 70 [in_i] [place] [facility] BMI (Body Mass Index) 2022-10-23 00:00:00 26.3 kg/m2 [facility] BP Systolic 2022-10-23 00:00:00 103 mm[Hg] [place] [facility] Body Weight 2022-10-23 00:00:00 2930 [oz_av] [place] [facility] BP Diastolic 2022-09-18 00:00:00 60 mm[Hg] [place] [facility] Height 2022-09-18 00:00:00 70 [in_i] [facility] BMI (Body Mass Index) 2022-09-18 00:00:00 27.6 kg/m2 [facility] BP Systolic 2022-09-18 00:00:00 108 mm[Hg] [facility] Body Weight 2022-09-18 00:00:00 3075 [oz_av] [place] [facility] BP Diastolic 2022-09-05 00:00:00 67 mm[Hg] [place] [facility] Height 2022-09-05 00:00:00 70 [in_i] [place] [facility] BMI (Body Mass Index) 2022-09-05 00:00:00 27.6 kg/m2 [facility] BP Systolic 2022-09-05 00:00:00 124 mm[Hg] [place] [facility] Body Weight 2022-09-05 00:00:00 3075 [oz_av] [place] [facility] BP Diastolic 2022-07-28 00:00:00 65 mm[Hg] [place] [facility] Height 2022-07-28 00:00:00 70 [in_i] [place] [facility] BMI (Body Mass Index) 2022-07-28 00:00:00 27.6 kg/m2 [facility] BP Systolic 2022-07-28 00:00:00 103 mm[Hg] [place] [facility] Body Weight 2022-07-28 00:00:00 3075 [oz_av] [place] [facility] BP Diastolic 2022-07-24 00:00:00 60 mm[Hg] [place] [facility] Height 2022-07-24 00:00:00 70 [in_i] [place] [facility] BMI (Body Mass Index) 2022-07-24 00:00:00 27.9 kg/m2 [facility] BP Systolic 2022-07-24 00:00:00 123 mm[Hg] [place] [facility] Body Weight 2022-07-24 00:00:00 3110 [oz_av] [place] [facility] BP Diastolic 2022-07-17 00:00:00 61 mm[Hg] [place] [facility] Height 2022-07-17 00:00:00 70 [in_i] [place] [facility] BMI (Body Mass Index) 2022-07-17 00:00:00 27.9 kg/m2 [facility] BP Systolic 2022-07-17 00:00:00 127 mm[Hg] [place] [facility] Body Weight 2022-07-17 00:00:00 3110 [oz_av] [place] [facility] BP Diastolic 2022-07-07 00:00:00 65 mm[Hg] [place] [facility] Height 2022-07-07 00:00:00 70 [in_i] [place] [facility] BMI (Body Mass Index) 2022-07-07 00:00:00 27.9 kg/m2 [facility] BP Systolic 2022-07-07 00:00:00 129 mm[Hg] [place] [facility] Body Weight 2022-07-07 00:00:00 3110 [oz_av] [facility] BP Diastolic 2022-06-16 00:00:00 72 mm[Hg] [facility] Height 2022-06-16 00:00:00 70 [in_i] [facility] BMI (Body Mass Index) 2022-06-16 00:00:00 27.7 kg/m2 [facility] BP Systolic 2022-06-16 00:00:00 118 mm[Hg] [facility] Body Weight 2022-06-16 00:00:00 3088 [oz_av] [facility] BP Diastolic 2022-06-02 00:00:00 56 mm[Hg] [facility] Height 2022-06-02 00:00:00 70 [in_i] [facility] BMI (Body Mass Index) 2022-06-02 00:00:00 28 kg/m2 [facility] BP Systolic 2022-06-02 00:00:00 121 mm[Hg] [place] [facility] Body Weight 2022-06-02 00:00:00 3120 [oz_av] [place] [facility] BP Diastolic 2022-05-15 00:00:00 70 mm[Hg] [place] [facility] Height 2022-05-15 00:00:00 70 [in_i] [facility] BMI (Body Mass Index) 2022-05-15 00:00:00 28 kg/m2 [facility] BP Systolic 2022-05-15 00:00:00 128 mm[Hg] [facility] Body Weight 2022-05-15 00:00:00 3120 [oz_av] [place] [facility] BP Diastolic 2022-04-24 00:00:00 78 mm[Hg] [facility] Height 2022-04-24 00:00:00 70 [in_i] [facility] BP Systolic 2022-04-24 00:00:00 118 mm[Hg] [facility] Body Weight 2022-04-24 00:00:00 2992 [oz_av] [facility] BP Diastolic 2022-03-27 00:00:00 68 mm[Hg] [facility] Height 2022-03-27 00:00:00 70 [in_i] [facility] BMI (Body Mass Index) 2022-03-27 00:00:00 26.8 kg/m2 [facility] BP Systolic 2022-03-27 00:00:00 114 mm[Hg] [facility] Body Weight 2022-03-27 00:00:00 2985 [oz_av] [facility] BP Diastolic 2022-03-19 00:00:00 75 mm[Hg] [facility] Height 2022-03-19 00:00:00 70 [in_i] [facility] BMI (Body Mass Index) 2022-03-19 00:00:00 26.8 kg/m2 [facility] BP Systolic 2022-03-19 00:00:00 128 mm[Hg] [facility] Body Weight 2022-03-19 00:00:00 2985 [oz_av] [place] [facility] BP Diastolic 2022-03-03 00:00:00 69 mm[Hg] [facility] Height 2022-03-03 00:00:00 70 [in_i] [facility] BMI (Body Mass Index) 2022-03-03 00:00:00 26.8 kg/m2 [facility] BP Systolic 2022-03-03 00:00:00 128 mm[Hg] [facility] Body Weight 2022-03-03 00:00:00 2985 [oz_av] [place] [facility] BP Diastolic 2022-02-17 00:00:00 74 mm[Hg] [facility] Height 2022-02-17 00:00:00 70 [in_i] [facility] BMI (Body Mass Index) 2022-02-17 00:00:00 26.8 kg/m2 [facility] BP Systolic 2022-02-17 00:00:00 124 mm[Hg] [facility] Body Weight 2022-02-17 00:00:00 2985 [oz_av] [facility] BP Diastolic 2022-01-27 00:00:00 69 mm[Hg] [facility] Height 2022-01-27 00:00:00 70 [in_i] [facility] BMI (Body Mass Index) 2022-01-27 00:00:00 26.8 kg/m2 [facility] BP Systolic 2022-01-27 00:00:00 128 mm[Hg] [facility] Body Weight 2022-01-27 00:00:00 2985 [oz_av] [place] [facility] BP Diastolic 2022-01-22 00:00:00 78 mm[Hg] [place] [facility] Height 2022-01-22 00:00:00 70 [in_i] [facility] BMI (Body Mass Index) 2022-01-22 00:00:00 26.8 kg/m2 [facility] BP Systolic 2022-01-22 00:00:00 131 mm[Hg] [place] [facility] Body Weight 2022-01-22 00:00:00 2985 [oz_av] [place] [facility] BP Diastolic 2021-12-17 00:00:00 70 mm[Hg] [place] [facility] Height 2021-12-17 00:00:00 70 [in_i] [facility] BMI (Body Mass Index) 2021-12-17 00:00:00 26.9 kg/m2 [facility] BP Systolic 2021-12-17 00:00:00 136 mm[Hg] [place] [facility] Body Weight 2021-12-17 00:00:00 2995 [oz_av] [place] [facility] BP Diastolic 2021-11-28 00:00:00 83 mm[Hg] [place] [facility] Height 2021-11-28 00:00:00 70 [in_i] [facility] BMI (Body Mass Index) 2021-11-28 00:00:00 26.9 kg/m2 [facility] BP Systolic 2021-11-28 00:00:00 127 mm[Hg] [facility] Body Weight 2021-11-28 00:00:00 2995 [oz_av] [place] [facility] BP Diastolic 2021-11-20 00:00:00 72 mm[Hg] [place] [facility] Height 2021-11-20 00:00:00 70 [in_i] [facility] BMI (Body Mass Index) 2021-11-20 00:00:00 [facility] 2021-11-20 00:00:00 128 mm[Hg] [facility] Body Weight 2021-11-20 00:00:00 2976 [oz_av] [facility] BP Diastolic 2021-11-14 00:00:00 85 mm[Hg] [facility] BP Systolic 2021-11-14 00:00:00 129 mm[Hg] [facility] Body Weight 2021-11-14 00:00:00 2978 [oz_av] [facility] BP Diastolic 2021-11-06 00:00:00 66 mm[Hg] [facility] Height 2021-11-06 00:00:00 70 [in_i] [facility] BMI (Body Mass Index) 2021-11-06 00:00:00 26.7 [facility] 2021-11-06 00:00:00 110 mm[Hg] [facility] Body Weight 2021-11-06 00:00:00 2976 [oz_av] [facility] WEIGHT 2021-03-31 04:00:00 87.8 kg HEIGHT 2021-03-28 21:00:00 170.2 cm WEIGHT 2021-03-28 21:00:00 87.8 kg Systolic blood 2021-04-02 15:00:00 128 mm[Hg] [facility] Diastolic blood 2021-04-02 15:00:00 72 mm[Hg] [facility] Heart rate 2021-04-02 15:00:00 63 /min [facility] Body temperature 2021-04-02 15:00:00 35.94 Blaire [facility] Respiratory rate 2021-04-02 15:00:00 20 /min [facility] Oxygen saturation in 2021-04-02 15:00:00 95 /min [facility] Arterial blood by Medical Ce nter Pulse oximetry Body weight 2021-03-31 04:00:00 87.8 kg [facility] BMI 2021-03-31 04:00:00 30.32 kg/m2 [facility] Body height 2021-03-28 21:00:00 170.2 cm [facility] Height 2018-05-05 16:11:00 167.64 cm Keyana Foster Weight 2018-05-05 16:11:00 Keyana Foster BMI Calculated 2018-05-05 16:11:00 Terry Valdivia Systolic (mm Hg) 2018-05-05 16:11:00 Clive Foster Diastolic (mm Hg) 2018-05-05 16:11:00 Talib Kirkpatrickann Respitory Rate 2018-05-05 16:11:00 Terry marley Cristian Heart Rate 2018-05-05 16:11:00 [facility] Procedures Procedure Date / Time Performed Performing Clinician Sourc e D-DIMER 2021-04-02 13:51:00 Nelli [facility] LACTATE DEHYDROGENASE 2021-04-02 13:50:00 Nelli [facility] FERRITIN 2021-04-02 13:50:00 Nelli [facility] CBC W/PLT COUNT & AUTO 2021-04-02 13:50:[address] [facility] C-REACTIVE PROTEIN 2021-04-02 13:50:00 Nelli [facility] PROCALCITONIN 2021-04-02 13:50:00 Nelli [facility] COMPREHENSIVE METABOLIC 2021-04-02 13:50:00 Nelli [facility] MAGNESIUM 2021-04-02 13:50:00 Nelli [facility] CBC W/PLT COUNT & AUTO 2021-04-02 13:50:00 Nelli [facility] DIFFERENTIAL [facility] POCT-GLUCOSE METER 2021-04-02 01:52:00 Renata Diggs Manav [facility] POCT-GLUCOSE METER 2021-04-01 20:51:00 Caterina Renata [facility] POCT-GLUCOSE METER 2021-04-01 16:51:00 [facility] 2021-04-01 16:50:00 Diane Gallagher [facility] URINALYSIS W/ REFLEX 2021-04-01 16:50:00 Diane Gallagheramaya CHEN I [facility] URINE CULTURE [facility] SARS-COV2/INFLUENZA/RSV 2021-04-01 16:48:00 CaterinaTessie cornejokha Billie s [facility] RT-PCR [facility] BASIC METABOLIC PANEL (7) 2021-04-01 16:47:00 ElliottDiane esqueda Dwight morillo [facility] POCT-GLUCOSE METER 2021-04-01 11:43:00 Caterina, Renata Em [facility] VANCOMYCIN LEVEL, TROUGH 2021-04-01 10:34:00 Dakotah Figueredo [facility] POCT-GLUCOSE METER 2021-04-01 05:45:00 [facility]IC [facility]ABOLIC PANEL (7) 2021-04-01 05:26:00 Madison Newsome [facility] CBC W/PLT COUNT & AUTO 2021-04-01 05:26:00 Sersuma [facility] DIFFERENTIAL [facility] MAGNESIUM 2021-04-01 05:26:[address] [facility] PHOSPHORUS 2021-04-01 05:26:[facility] 2021-04-01 05:26:00 [facility] C-REACTIVE PROTEIN 2021-04-01 [facility] 2021-04-01 05:26:00 [facility] CALCIUM, IONIZED 2021-04-01 05:[facility] AUTO 2021-04-01 05:26:00 Sersuma [facility] DIFFERENTIAL [facility] POCT-GLUCOSE METER 2021-03-31 23:22:[address] [facility] POCT-GLUCOSE METER 2021-03-31 15:28:[address] [facility] CBC W/PLT COUNT & AUTO 2021-03-31 12:50:00 Sersuma Berny [facility] DIFFERENTIAL [facility] MAGNESIUM 2021-03-31 12:50:[address] [facility] PHOSPHORUS 2021-03-31 12:50:[address] [facility] HEPATIC FUNCTION PANEL 2021-03-31 12:50:00 Serenitye [facility] COMPREHENSIVE METABOLIC 2021-03-31 12:50:00 Lan Peraza [facility] VANCOMYCIN LEVEL, RANDOM 2021-03-31 12:50:00 Joanna Jolly [facility] CBC W/PLT COUNT & AUTO 2021-03-31 12:50:00 Serenitye [facility] DIFFERENTIAL [facility] CALCIUM, IONIZED 2021-03-31 12:49:00 Serenitye [facility] POCT-GLUCOSE METER 2021-03-31 12:08:00 [facility] PO[facility]-GLUCOSE METER 2021-03-31 09:59:00 [facility] BASIC METABOLIC PANEL (7) 2021-03-31 00:07:00 Madison Newsome [facility] XR ABDOMEN / KUB 1 VIEW 2021-03-30 21:31:00 Bola Naylor [facility] POCT-GLUCOSE METER 2021-03-30 21:31:00 [facility] POCT-GLUCOSE METER 2021-03-30 17:26:[address] [facility] XR ABDOMEN / KUB 1 VIEW 2021-03-30 17:03:00 Madison Newsome [facility] BASIC METABOLIC PANEL (7) 2021-03-30 16:42:00 Madison Newsome [facility] POCT-GLUCOSE METER 2021-03-30 12:50:00 [facility] US RENAL COMPLETE 2021-03-30 11:26:00 Lan Peraza [facility] 2D ECHO W/ DOPPLER 2021-03-30 10:31:37 Jd [facility] (CW/PW/COLOR) [facility] BASIC METABOLIC PANEL (7) 2021-03-30 09:53:00 David Reeves [facility] POCT-GLUCOSE METER 2021-03-30 05:02:00 [facility] BASIC METABOLIC PANEL (7) 2021-03-30 04:12:00 David Reeves [facility] CBC W/PLT COUNT & AUTO 2021-03-30 04:12:[address] [facility] MAGNESIUM 2021-03-30 04:12:[address] [facility] PHOSPHORUS 2021-03-30 [facility] 2021-03-30 04:12:00 [facility] C-REACTIVE PROTEIN 2021-03-30 [facility] 2021-03-30 04:12:00 [facility] 2021-03-30 04:12:00 Serenio [facility] CBC W/PLT COUNT & AUTO 2021-03-30 04:12:00 Sersophia [facility] DIFFERENTIAL [facility] POCT-GLUCOSE METER 2021-03-29 23:40:00 [facility] OSMOLAL[facility], URINE 2021-03-29 21:49:[address] [facility] OSMOLALITY, SERUM 2021-03-29 21:49:[address] [facility] SODIUM, RANDOM URINE 2021-03-29 21:49:00 Tye [facility] CREATININE, RANDOM URINE 2021-03-29 21:49:00 Tye [facility] BASIC METABOLIC PANEL (7) 2021-03-29 21:49:00 David Reeves CH I [facility] SODIUM, RANDOM URINE 2021-03-29 17:25:00 Stu [facility] PROTEIN, RANDOM URINE 2021-03-29 17:25:00 [facility] CREATININE, RANDOM URINE 2021-03-29 17:25:00 [facility] OSMOLALITY, URINE 2021-03-29 17:25:00 Peraza [facility] POCT-GLUCOSE METER 2021-03-29 17:21:00 [facility] BASIC METABOLIC PANEL (7) 2021-03-29 16:26:00 David Reeves CH, I [facility] VALPROIC ACID LEVEL, 2021-03-29 16:26:00 Jd [facility] PHENYTOIN LEVEL, TOTAL 2021-03-29 16:26:00 Jd Jefferson [facility] BASIC METABOLIC PANEL (7) 2021-03-29 12:51:00 David Reeves CH I [facility] POCT-GLUCOSE METER 2021-03-29 12:38:[address] [facility] BASIC METABOLIC PANEL (7) 2021-03-29 09:08:00 David Reeves CH, I [facility] VANCOMYCIN LEVEL, RANDOM 2021-03-29 09:08:00 Joanna Jolly [facility] B-TYPE NATRIURETIC FACTOR 2021-03-29 09:08:00 Jd Jefferson [facility] (BNP) [facility] BASIC METABOLIC PANEL (7) 2021-03-29 05:51:00 David Reeves CH [facility] TSH/FREE T4 IF INDICATED 2021-03-29 05:05:[address] [facility] CBC W/PLT COUNT & AUTO 2021-03-29 05:05:00 [facility] DIFFERENTIAL [facility] (CELLAVISION MANUAL DIFF) 2021-03-29 05:05:00 [facility] CBC W/PLT COUNT & AUTO 2021-03-29 05:05:00 [facility] DIFFERENTIAL [facility] URINE CULTURE 2021-03-29 02:53:00 [facility] URINALYSIS W/ REFLEX 2021-03-29 02:53:00 [facility] URINE CULTURE [facility] BLOOD CULTURE 2021-03-29 02:52:00 [facility] ECG 12-LEAD 2021-03-29 00:28:39 Unknown, H[facility] ECG 12-LEAD 2021-03-29 00:28:39 Unknown, [facility] BLOOD GAS, ARTERIAL 2021-03-28 23:03:[address] [facility] CBC (HEMOGRAM ONLY) 2021-03-28 23:02:[address] [facility] [facility] PT/APTT 2021-03-28 23:02:00 [facility] D-DIMER 2021-03-28 23:02:00 [facility] LACTIC ACID, VENOUS 2021-03-28 23:02:[address] [facility] [facility] CALCIUM, IONIZED 2021-03-28 23:02:00 K[facility] COMPREHENSIVE METABOLIC 2021-03-28 22:29:00 Kasey [facility] PANEL [facility] C-REACTIVE PROTEIN 2021-03-28 22:29:00 K[facility]y [facility] MAGNESIUM 2021-03-28 22:29:[address] [facility] PHOSPHORUS 2021-03-28 22:29:00 [facility] CREATINE KINASE (CK) 2021-03-28 22:29:00 [facility] XR ABDOMEN / KUB 1 VIEW 2021-03-28 22:07:00 [facility] XR CHEST 1 VIEW PORTABLE 2021-03-28 21:59:00 Kasey [facility] / BEDSIDE [facility] G[facility] Bypass [facility] Plan of Care Planned Activity Planned Date Details Comments Source Future Scheduled Test 2023-03-26 Influenza Vaccine [facility] 00:[facility]:00 (#1) [code = [facility] Influenza Vaccine (#1)] Future Scheduled Test 2022-07-[address] [facility] 00:00:00 (12+) [code = [facility] DEPRESSION SCREENING (12+)] Future Scheduled Test 2022-07-26 FALLS RISK SCREENING [facility] 00:00:00 [code = FALLS RISK Medical C enter SCREENING] Diagnostic Test 2021-11-06 drug screen, 14 drugs Mikaela via [facility] Pending 00:00:00 (detectimed), urine [code = drug screen, 14 drugs (detectimed), urine] Future Scheduled Test 2021-07-[address] [facility] 00:00:00 (12+) [code = [facility] DEPRESSION SCREENING (12+)] Future Scheduled Test 2021-07-26 FALLS RISK SCREENING [facility] 00:00:00 [code = FALLS RISK Medical C enter SCREENING] Future Scheduled Test 2021-07-[address] [facility] 00:00:00 (12+) [code = Medical Center DEPRESSION SCREENING (12+)] Future Scheduled Test 2021-07-26 FALLS RISK SCREENING [facility] 00:00:00 [code = FALLS RISK Medical C enter SCREENING] Future Scheduled Test 2021-03-[address] VACC[address] [facility] 00:00:00 (#1) [code = Medical Center INFLUENZA VACCINE (#1)] Future Scheduled Test 2021-03-26 INFLUENZA VACCINE [facility] 00:00:00 (#1) [code = Medical Center INFLUENZA VACCINE (#1)] Future Scheduled Test 2021-03-26 INFLUENZA VACCINE [facility] 00:00:00 (#1) [code = Medical Center INFLUENZA VACCINE (#1)] Future Scheduled Test 2021-03-26 INFLUENZA VACCINE [facility] 00:00:00 (#1) [code = Medical Center INFLUENZA VACCINE (#1)] Future Scheduled Test 2021-03-26 INFLUENZA VACCINE [facility] 00:00:00 (#1) [code = Medical Center INFLUENZA VACCINE (#1)] Future Scheduled Test 2021-03-26 INFLUENZA VACCINE [facility] 00:00:00 (#1) [code = Medical Center INFLUENZA VACCINE (#1)] Future Scheduled Test 2020-07-[address] [facility] 00:00:00 (12+) [code = Medical Center DEPRESSION SCREENING (12+)] Future Scheduled Test 2020-07-[address] [facility] 00:00:00 (12+) [code = Medical Center DEPRESSION SCREENING (12+)] Future Scheduled Test 2020-07-[address] [facility] 00:00:00 (12+) [code = Medical Center DEPRESSION SCREENING (12+)] Future Scheduled Test 2020-07-[address] [facility] 00:00:00 (12+) [code = Medical Center DEPRESSION SCREENING (12+)] Future Scheduled Test 2008 PNEUMOCOCCAL 65+ YRS [facility] 00:00:00 (1 of 1 - Medical Center [id number] PCV13) [code = PNEUMOCOCCAL 65+ YRS (1 of 1 - [id number]_[id number] PCV13)] Future Scheduled Test 2008 PNEUMOCOCCAL 65+ YRS [facility] 00:00:00 (1 of 1 - Medical Center [id number] PCV13) [code = PNEUMOCOCCAL 65+ YRS (1 of 1 - [id number]_Kvzmuzi PCV13)] Future Scheduled Test 2008 PNEUMOCOCCAL 65+ YRS [facility] 00:00:00 (1 of 1 - Medical Center [id number] PCV13) [code = PNEUMOCOCCAL 65+ YRS (1 of 1 - QGTW32_Foydljn PCV13)] Future Scheduled Test 2008 PNEUMOCOCCAL 65+ YRS [facility] 00:00:00 (1 of 1 - Medical Center [id number]_Hgchgcr PCV13) [code = PNEUMOCOCCAL 65+ YRS (1 of 1 - FLVN63_Zetnizc PCV13)] Future Scheduled Test 2008 PNEUMOCOCCAL 65+ YRS [facility] 00:00:00 (1 of 1 - Medical Center [id number]_Lezawek PCV13) [code = PNEUMOCOCCAL 65+ YRS (1 of 1 - [id number]_Yllddhu PCV13)] Future Scheduled Test 2008 PNEUMOCOCCAL 65+ YRS [facility] 00:00:00 (1 of 1 - Medical Center WKKY80_Nrsnztu PCV13) [code = PNEUMOCOCCAL 65+ YRS (1 of 1 - GUFP39_Ygijpeu PCV13)] Future Scheduled Test 2008 PNEUMOCOCCAL 65+ YRS [facility] 00:00:00 (1 - PCV) [code = Medical Ce nter PNEUMOCOCCAL 65+ YRS (1 - PCV)] Future Scheduled Test 2005-03-[address] [facility] 00:00:00 WELLNESS (YEAR 2 or Medical Center FIRST YEAR if no IPPE) [code = MEDICARE ANNUAL WELLNESS (YEAR 2 or FIRST YEAR if no IPPE)] Future Scheduled Test 2005-03-[address] [facility] 00:00:00 WELLNESS (YEAR 2 or Medical Center FIRST YEAR if no IPPE) [code = MEDICARE ANNUAL WELLNESS (YEAR 2 or FIRST YEAR if no IPPE)] Future Scheduled Test 2005-03-[address] [facility] 00:00:00 WELLNESS (YEAR 2 or Medical Center FIRST YEAR if no IPPE) [code = MEDICARE ANNUAL WELLNESS (YEAR 2 or FIRST YEAR if no IPPE)] Future Scheduled Test 2005-03-[address] [facility] 00:00:00 WELLNESS (YEAR 2 or Medical Center FIRST YEAR if no IPPE) [code = MEDICARE ANNUAL WELLNESS (YEAR 2 or FIRST YEAR if no IPPE)] Future Scheduled Test 2005-03-[address] [facility] 00:00:00 WELLNESS (YEAR 2 or Medical Center FIRST YEAR if no IPPE) [code = MEDICARE ANNUAL WELLNESS (YEAR 2 or FIRST YEAR if no IPPE)] Future Scheduled Test 2005-03-[address] [facility] 00:00:00 WELLNESS (YEAR 2 or Medical Center FIRST YEAR if no IPPE) [code = MEDICARE ANNUAL WELLNESS (YEAR 2 or FIRST YEAR if no IPPE)] Future Scheduled Test 2005-03-[address] [facility] 00:00:00 WELLNESS (YEAR 2 or Medical Center FIRST YEAR if no IPPE) [code = MEDICARE ANNUAL WELLNESS (YEAR 2 or FIRST YEAR if no IPPE)] Future Scheduled Test 1993 SHINGLES VACCINES ([address] [facility] 00:00:00 of 2) [code = Medical Center SHINGLES VACCINES (1 of 2)] Future Scheduled Test 1993 SHINGLES VACCINES ([address] [facility] 00:00:00 of 2) [code = Medical Center SHINGLES VACCINES (1 of 2)] Future Scheduled Test 1993 SHINGLES VACCINES ([address] [facility] 00:00:00 of 2) [code = Medical Center SHINGLES VACCINES (1 of 2)] Future Scheduled Test 1993 SHINGLES VACCINES ([address] [facility] 00:00:00 of 2) [code = Medical Center SHINGLES VACCINES (1 of 2)] Future Scheduled Test 1993 SHINGLES VACCINES ([address] [facility] 00:00:00 of 2) [code = Medical Center SHINGLES VACCINES (1 of 2)] Future Scheduled Test 1993 SHINGLES VACCINES ([address] [facility] 00:00:00 of 2) [code = Medical Center SHINGLES VACCINES (1 of 2)] Future Scheduled Test 1993 SHINGLES VACCINES ([address] [facility] 00:00:00 of 2) [code = Medical Center SHINGLES VACCINES (1 of 2)] Future Scheduled Test 1962 DTAP/TDAP/TD VACCINES [facility] 00:00:00 (1 - Tdap) [code = Medical [facility] DTAP/TDAP/TD VACCINES (1 - Tdap)] Future Scheduled Test 1962 DTAP/TDAP/TD VACCINES [facility] 00:00:00 (1 - Tdap) [code = Medical C enter DTAP/TDAP/TD VACCINES (1 - Tdap)] Future Scheduled Test 1962 DTAP/TDAP/TD VACCINES [facility] 00:00:00 (1 - Tdap) [code = Medical C enter DTAP/TDAP/TD VACCINES (1 - Tdap)] Future Scheduled Test 1962 DTAP/TDAP/TD VACCINES [facility] 00:00:00 (1 - Tdap) [code = Medical C enter DTAP/TDAP/TD VACCINES (1 - Tdap)] Future Scheduled Test 1962 DTAP/TDAP/TD VACCINES [facility] 00:00:00 (1 - Tdap) [code = Medical C enter DTAP/TDAP/TD VACCINES (1 - Tdap)] Future Scheduled Test 1962 DTAP/TDAP/TD VACCINES [facility] 00:00:00 (1 - Tdap) [code = Medical C enter DTAP/TDAP/TD VACCINES (1 - Tdap)] Future Scheduled Test 1962 DTAP/TDAP/TD VACCINES [facility] 00:00:00 (1 - Tdap) [code = Medical C enter DTAP/TDAP/TD VACCINES (1 - Tdap)] Future Scheduled Test 1961 HEPATITIS C SCREENING [facility] 00:00:00 [code = HEPATITIS C Medical Center SCREENING] Future Scheduled Test 1961 HEPATITIS C SCREENING [facility] 00:00:00 [code = HEPATITIS C Medical Center SCREENING] Future Scheduled Test 1961 HEPATITIS C SCREENING [facility] 00:00:00 [code = HEPATITIS C Medical Center SCREENING] Future Scheduled Test 1961 HEPATITIS C SCREENING [facility] 00:00:00 [code = HEPATITIS C Medical Center SCREENING] Future Scheduled Test 1961 HEPATITIS C SCREENING [facility] 00:00:00 [code = HEPATITIS C Medical Center SCREENING] Future Scheduled Test 1961 HEPATITIS C SCREENING [facility] 00:00:00 [code = HEPATITIS C Medical Center SCREENING] Future Scheduled Test 1961 HEPATITIS C SCREENING [facility] 00:00:00 [code = HEPATITIS C Medical Center SCREENING] Future Scheduled Test 1955 COVID-19 VACCINE (1) [facility] 00:00:00 [code = COVID-[address] VACCINE (1)] Future Scheduled Test 1955 COVID-19 VACCINE (1) [facility] 00:00:00 [code = COVID-[address] VACCINE (1)] Future Scheduled Test 1955 COVID-19 VACCINE (1) [facility] 00:00:00 [code = COVID-[address] VACCINE (1)] Future Scheduled Test 1955 COVID-19 VACCINE (1) [facility] 00:00:00 [code = COVID-[address] VACCINE (1)] Future Scheduled Test 1955 COVID-19 VACCINE (1) [facility] 00:00:00 [code = COVID-[address] VACCINE (1)] Future Scheduled Test 1955 COVID-19 VACCINE (1) [facility] 00:00:00 [code = COVID-[address] VACCINE (1)] Future Scheduled Test [address] [facility] 00:00:00 [facility] Cent[facility] r Screening (12+) [code = Tobacco Cessation Counseling and Screening (12+)] Future Scheduled Test 1943 COVID-19 VACCINE (#1) [facility] 00:00:00 [code = COVID-[address] VACCINE (#1)] Instructions [facility] Start End Encounter Admission Attending Care Care Encounter Source Date/Time Date/Time Type Type Clinicians Facility Department ID 2021-05-04 Inpatient ER HAYAT JIM, [facility] Pulmonology [id number] [facility] 11:17:29 JESSICA 2023-05-06 2023-05-06 Outpatient [facility]Tod PRIV PRIV [id number] [facility] 00:00:00 00:00:00 d_Kristine [id number] Medica l 2023-05-06 2023-05-06 Outpatient [facility]Tod PRIV PRIV [id number] [facility] 00:00:00 00:00:00 d_Kristine [id number] Medica l 2023-05-05 2023-05-05 Outpatient [facility]Tod PRIV PRIV [id number] [facility] 00:00:00 00:00:00 d_J [id number] Medica l 2023-04-30 2023-04-30 Outpatient [facility]Tod PRIV PRIV [id number] [facility] 00:00:00 00:00:00 d_J [id number] Medica l 2023-04-26 2023-04-26 Outpatient [facility]Tod PRIV PRIV 239 [id number] [facility] 00:00:00 00:00:00 d_J [id number] Medica l 2023-04-16 2023-04-16 Outpatient [facility]Tod PRIV PRIV [id number] [facility] 00:00:00 00:00:00 d_J [id number] Medica l 2023-04-16 2023-04-16 Outpatient [facility]Tod PRIV PRIV [id number] [facility] 00:00:00 00:00:00 d_J [id number] Medica l 2023-04-16 2023-04-16 Outpatient [facility]Tod PRIV PRIV 239 [id number] [facility] 00:00:00 00:00:00 d_J [id number] Medica l 2023-04-13 2023-04-13 Outpatient [facility]Tod PRIV PRIV 239 [id number] [facility] 00:00:00 00:00:00 d_J [id number] Medica l 2023-04-13 2023-04-13 Outpatient [facility]Tod PRIV PRIV 239 [id number] [facility] 00:00:00 00:00:00 d_J [id number] Medica l 2023-04-12 2023-04-12 Outpatient [facility]Tod PRIV PRIV 239 [id number] [facility] 00:00:00 00:00:00 d_J [id number] Medica l 2023-03-26 2023-03-26 Outpatient [facility]Tod PRIV PRIV 239 [id number] [facility] 00:00:00 00:00:00 d_J [id number] Medica l 2023-03-26 2023-03-26 Outpatient [facility]Tod PRIV PRIV 239 [id number] [facility] 00:00:00 00:00:00 d_J [id number] Medica l 2023-03-24 2023-03-24 Outpatient [facility]Tod PRIV PRIV 239 [id number] [facility] 00:00:00 00:00:00 d_J [id number] Medica l 2023-03-24 2023-03-24 Outpatient [facility]Tod PRIV PRIV 239 [id number] [facility] 00:00:00 00:00:00 d_J [id number] Medica l 2023-03-23 2023-03-23 Outpatient [facility]Tod PRIV PRIV 239 [id number] [facility] 00:00:00 00:00:00 d_J [id number] Medica l 2023-03-10 2023-03-10 Outpatient [facility]Tod PRIV PRIV 239 [id number] [facility] 00:00:00 00:00:00 d_J [id number] Medica l 2023-03-10 2023-03-10 Outpatient [facility]Tod PRIV PRIV 239 [id number] [facility] 00:00:00 00:00:00 d_J [id number] Medica l 2023-03-10 2023-03-10 Outpatient [facility]Tod PRIV PRIV 239 [id number] [facility] 00:00:00 00:00:00 d_J [id number] Medica l 2023-03-07 2023-03-07 Outpatient [facility]Tod PRIV PRIV 239 [id number] [facility] 00:00:00 00:00:00 d_J [id number] Medica l 2023-03-05 2023-03-05 Outpatient [facility]Tod PRIV PRIV 239 [id number] [facility] 00:00:00 00:00:00 d_J [id number] Medica l 2023-02-23 2023-02-23 Outpatient [facility]Tod PRIV PRIV 239 [id number] [facility] 00:00:00 00:00:00 d_J [id number] Medica l 2023-02-23 2023-02-23 Outpatient [facility]Tod PRIV PRIV 239 [id number] [facility] 00:00:00 00:00:00 d_J [id number] Medica l 2023-02-23 2023-02-23 Outpatient [facility]Tod PRIV PRIV 239 [id number] [facility] 00:00:00 00:00:00 d_J [id number] Medica l 2023-02-18 2023-02-18 Outpatient [facility]Tod PRIV PRIV 239 [id number] [facility] 00:00:00 00:00:00 d_J [id number] Medica l 2023-02-18 2023-02-18 Outpatient [facility]Tod PRIV PRIV 239 [id number] [facility] 00:00:00 00:00:00 d_J [id number] Medica l 2023-02-15 2023-02-15 Outpatient [facility]Tod PRIV PRIV 239 [id number] [facility] 00:00:00 00:00:00 d_J [id number] Medica l 2023-02-12 2023-02-12 Outpatient [facility]Tod PRIV PRIV 239 [id number] [facility] 00:00:00 00:00:00 d_J [id number] Medica l 2023-02-09 2023-02-09 Outpatient [facility]Tod PRIV PRIV 239 [id number] [facility] 00:00:00 00:00:00 d_J [id number] Medica l 2023-02-09 2023-02-09 Outpatient [facility]Tod PRIV PRIV 239 [id number] [facility] 00:00:00 00:00:00 d_J [id number] Medica l 2023-01-28 2023-01-28 Outpatient [facility]Tod PRIV PRIV 239 [id number] [facility] 00:00:00 00:00:00 d_J [id number] Medica l 2023-01-28 2023-01-28 Outpatient [facility]Tod PRIV PRIV 239 [id number] [facility] 00:00:00 00:00:00 d_J [id number] Medica l 2023-01-28 2023-01-28 Outpatient [facility]Tod PRIV PRIV 239 [id number] [facility] 00:00:00 00:00:00 d_J [id number] Medica l 2023-01-27 2023-01-27 Outpatient [facility]Tod PRIV PRIV 239 [id number] [facility] 00:00:00 00:00:00 d_J [id number] Medica l 2023-01-15 2023-01-15 Outpatient [facility]Tod PRIV PRIV 239 [id number] [facility] 00:00:00 00:00:00 d_J [id number] Medica l 2023-01-15 2023-01-15 Outpatient [facility]Tod PRIV PRIV 239 [id number] [facility] 00:00:00 00:00:00 d_J [id number] Medica l 2023-01-15 2023-01-15 Outpatient [facility]Tod PRIV PRIV 239 [id number] [facility] 00:00:00 00:00:00 d_J [id number] Medica l 2023-01-14 2023-01-14 Outpatient [facility]Tod PRIV PRIV 239 [id number] [facility] 00:00:00 00:00:00 d_J [id number] Medica l 2023-01-06 2023-01-06 Outpatient [facility]Tod PRIV PRIV 239 [id number] [facility] 00:00:00 00:00:00 d_J [id number] Medica l 2023-01-05 2023-01-05 Outpatient [facility]Tod PRIV PRIV 239 [id number] [facility] 00:00:00 00:00:00 d_J [id number] Medica l 2022-12-21 2022-12-21 Outpatient [facility]Tod PRIV PRIV 239 [id number] [facility] 00:00:00 00:00:00 d_J [id number] Medica l 2022-12-21 2022-12-21 Outpatient [facility]Tod PRIV PRIV 239 [id number] [facility] 00:00:00 00:00:00 d_J [id number] Medica l 2022-12-21 2022-12-21 Outpatient [facility]Tod PRIV PRIV 239 [id number] [facility] 00:00:00 00:00:00 d_J [id number] Medica l 2022-12-17 2022-12-17 Outpatient [facility]Tod PRIV PRIV 239 [id number] [facility] 00:00:00 00:00:00 d_J [id number] Medica l 2022-12-10 2022-12-10 Outpatient [facility]Tod PRIV PRIV 239 [id number] [facility] 00:00:00 00:00:00 d_J [id number] Medica l 2022-12-04 2022-12-04 Outpatient [facility]Tod PRIV PRIV 239 [id number] [facility] 00:00:00 00:00:00 d_J [id number] Medica l 2022-11-21 2022-11-21 Outpatient [facility]Tod PRIV PRIV 239 [id number] [facility] 00:00:00 00:00:00 d_J [id number] Medica l 2022-11-20 2022-11-20 Sarah [facility] [id number] [facility] 00:00:00 00:00:00 NELL Sanchez: Health - Med ical [address] [address] , Ph. 2022-11-06 2022-11-06 [facility] [id number] [facility] 00:00:00 00:00:00 NELL Sanchez: Health - Med ical [address] [place] [address] , Ph. 2022-11-04 2022-11-04 Outpatient [facility]Tod PRIV PRIV 239 [id number] [facility] 00:00:00 00:00:00 d_J [id number] Medica l 2022-11-04 2022-11-04 Outpatient [facility]Tod PRIV PRIV 239 [id number] [facility] 00:00:00 00:00:00 d_J [id number] Medica l 2022-11-04 2022-11-04 Outpatient [facility]Tod PRIV PRIV 239 [id number] [facility] 00:00:00 00:00:00 d_J [id number] Medica l 2022-11-03 2022-11-03 Geovanni Yin [facility] [id number] [facility] 00:00:00 00:00:[address] [facility] - Med ica MD: [address] [address] , Ph. 2022-10-29 2022-10-29 Outpatient [facility]Tod PRIV PRIV [id number] [facility] 00:00:00 00:00:00 d_J [id number] Medica l 2022-10-29 2022-10-29 Outpatient [facility]Tod PRIV PRIV [id number] [facility] 00:00:00 00:00:00 d_J [id number] Medica l 2022-10-27 2022-10-27 Outpatient [facility]Tod PRIV PRIV 239 [id number] [facility] 00:00:00 00:00:00 d_J [id number] Medica l 2022-10-23 2022-10-23 [facility] [id number] [facility] 00:00:00 00:00:00 NELL Sanchez: Health - Med ical [address] [address] , Ph. 2022-10-20 2022-10-20 Outpatient [facility]Tod PRIV PRIV 239 [id number] [facility] 00:00:00 00:00:00 d_J [id number] Medica l 2022-10-20 2022-10-20 Outpatient [facility]Tod PRIV PRIV 239 [id number] [facility] 00:00:00 00:00:00 d_J [id number] Medica l 2022-10-20 2022-10-20 Outpatient [facility]Tod PRIV PRIV 239 [id number] [facility] 00:00:00 00:00:00 d_J [id number] Medica l 2022-10-14 2022-10-14 Outpatient [facility]Tod PRIV PRIV 239 [id number] [facility] 00:00:00 00:00:00 d_J [id number] Medica l 2022-09-25 2022-09-25 Outpatient [facility]Tod PRIV PRIV 239 [id number] [facility] 00:00:00 00:00:00 d_J [id number] Medica l 2022-09-18 2022-09-18 Outpatient [facility]Tod PRIV PRIV 239 [id number] [facility] 00:00:00 00:00:00 d_J [id number] Medica l 2022-09-18 2022-09-18 Sarah [facility] 224 [facility] 00:00:00 00:00:00 NELL Sanchez: Health - Med ical [address] [address] , Ph. 2022-09-05 2022-09-05 Sarah [facility] 211 [facility] 00:00:00 00:00:00 NELL Sanchez: Health - Med ical [address] [place] [address] , Ph. 2022-09-04 2022-09-04 Outpatient [facility]Tod PRIV PRIV 239 [id number] [facility] 00:00:00 00:00:00 d_J [id number] Medica l 2022-09-04 2022-09-04 Outpatient [facility] PR[facility] PRIV [id number] [facility] 00:00:00 00:00:00 d_J [id number] Medica l 2022-08-07 2022-08-07 Outpatient [facility] PR[facility] PRIV [id number] [facility] 00:00:00 00:00:00 d_J [id number] Medica l 2022-07-28 2022-07-28 Outpatient [facility] PRIV PRIV [id number] [facility] 00:00:00 00:00:00 d_J [id number] Medica l 2022-07-28 2022-07-28 Outpatient [facility] PR[facility] PRIV 239 [id number] [facility] 00:00:00 00:00:00 d_J [id number] Medica l 2022-07-28 2022-07-28 Outpatient [facility] PR[facility] PRIV 239 [id number] [facility] 00:00:00 00:00:00 d_J [id number] Medica l 2022-07-28 2022-07-28 Sarah [facility] [id number] [facility] 00:00:00 00:00:00 NELL Sanchez: Health - Med ical [address] [address] , Ph. 2022-07-24 2022-07-24 Geovanni Yin [facility] 202 [id number] [facility] 00:00:00 00:00:00 [facility] - Med ical MD: [address] [address] , Ph. 2022-07-17 2022-07-17 Sarah [facility] 223 [facility] 00:00:00 00:00:00 NELL Sanchez: Health - Med ical [address] [address] , Ph. 2022-07-15 2022-07-15 Outpatient [facility] PRIV PRIV [id number] [facility] 00:00:00 00:00:00 d_J [id number] Medica l 2022-07-15 2022-07-15 Outpatient [facility] PRIV PRIV [id number] [facility] 00:00:00 00:00:00 d_J [id number] Medica l 2022-07-15 2022-07-15 Outpatient [facility] PRIV PRIV [id number] [facility] 00:00:00 00:00:00 d_J [id number] Medica l 2022-07-15 2022-07-15 Outpatient [facility] PRIV PRIV [id number] [facility] 00:00:00 00:00:00 d_J [id number] Medica l 2022-07-08 2022-07-08 Outpatient [facility] PR[facility] PRIV 239 [id number] [facility] 00:00:00 00:00:00 d_J [id number] Medica l 2022-07-07 2022-07-07 [facility] [id number] [facility] 00:00:00 00:00:00 NELL Sanchez: Health - Med ical [address] [address] , Ph. 2022-06-16 2022-06-16 Outpatient [facility] PRIV PRIV [id number] [facility] 00:00:00 00:00:00 d_J [id number] Medica l 2022-06-16 2022-06-16 Outpatient [facility] PRIV PRIV [id number] [facility] 00:00:00 00:00:00 d_J [id number] Medica l 2022-06-16 2022-06-16 Outpatient [facility] PRIV PRIV [id number] [facility] 00:00:00 00:00:00 d_J [id number] Medica l 2022-06-16 2022-06-16 [facility] [id number] [facility] 00:00:00 00:00:00 NELL Sanchez: Health - Med ical [address] [address] , Ph. 2022-06-12 2022-06-12 Outpatient [facility] PRIV PRIV [id number] [facility] 00:00:00 00:00:00 d_J [id number] Medica l 2022-06-11 2022-06-11 Outpatient [facility] PRIV PRIV [id number] [facility] 00:00:00 00:00:00 d_J [id number] Medica l 2022-06-02 2022-06-02 Outpatient [facility] PRIV PRIV [id number] [facility] 00:00:00 00:00:00 d_J [id number] Medica l 2022-06-02 2022-06-02 [facility] [id number] [facility] 00:00:00 00:00:00 NELL Sanchez: Health - Med ical [address] [address] , Ph. 2022-05-20 2022-05-20 Outpatient [facility] PRIV PRIV [id number] [facility] 00:00:00 00:00:00 d_J [id number] Medica l 2022-05-15 2022-05-15 [facility] 021 [facility] 00:00:00 00:00:00 NELL Sanchez: Health - Med ical [address] [address] , Ph. 2022-05-14 2022-05-14 Outpatient [facility] PRIV PRIV 239 [id number] [facility] 00:00:00 00:00:00 d_J [id number] Medica l 2022-05-12 2022-05-12 Outpatient [facility]Tod PRIV PRIV 239 [id number] [facility] 00:00:00 00:00:00 d_J [id number] Medica l 2022-05-08 2022-05-08 Outpatient [facility]Tod PRIV PRIV 239 [id number] [facility] 00:00:00 00:00:00 d_J [id number] Medica l 2022-05-01 2022-05-01 Outpatient [facility]_Tod PRIV PRIV 239 [id number] [facility] 00:00:00 00:00:00 d_J [id number] Medica l 2022-04-24 2022-04-24 Outpatient [facility]Tod PRIV PRIV 239 [id number] [facility] 00:00:00 00:00:00 d_J [id number] Medica l 2022-04-24 2022-04-24 [facility] 930 [facility] 00:00:00 00:00:00 NELL Sanchez: Health - Med ical [address] [place] [address] , Ph. 2022-04-06 2022-04-06 Outpatient [facility]Tod PRIV PRIV 239 [id number] [facility] 00:00:00 00:00:00 dAllyson [id number] Medica l 2022-03-27 2022-03-27 Outpatient Daniel PRIV PRIV [id number] 00:00:00 00:00:00 Sarah [id number] 2022-03-27 2022-03-27 Sarah [facility] [id number] [facility] 00:00:00 00:00:00 NELL Sanchez: Health - Med ical [address] [place] [address] , Ph. 2022-03-19 2022-03-19 Outpatient [facility]Tod PRIV PRIV 239 [id number] [facility] 00:00:00 00:00:00 Aleena [id number] Medica l 2022-03-19 2022-03-19 Geovannimode Edmondne [facility] [id number] [facility] 00:00[facility]00 00:00[facility] MD: [address] [place] [address] , Ph. 2022-03-19 2022-03-19 Outpatient Stacy [facility] PRIV [id number] 00:00:00 00:00:00 Geovanni iYn [id number] 2022-03-16 2022-03-16 Outpatient [facility]Tod PRIV PRIV 239 [id number] [facility] 00:00:00 00:00:00 dAllyson [id number] Medica l 2022-03-12 2022-03-12 Outpatient [facility]Tod PRIV PRIV 239 [id number] [facility] 00:00:00 00:00:00 dAllyson [id number] Medica l 2022-03-03 2022-03-03 Outpatient [facility]Tod PRIV PRIV 239 [id number] [facility] 00:00:00 00:00:00 d_J [id number] Medica l 2022-03-03 2022-03-03 Sarah [facility] [id number] [facility] 00:00:00 00:00:00 NELL Sanchez: Health - Med ical [address] [place] [address] , Ph. 2022-03-03 2022-03-03 Outpatient Daniel, PRIV PRIV [id number] 00:00:00 00:00:00 Sarah [id number] 2022-02-25 2022-02-25 Outpatient [facility]Tod PRIV PRIV 239 [id number] [facility] 00:00:00 00:00:00 d_J [id number] Medica l 2022-02-17 2022-02-17 Outpatient [facility]Tod PRIV PRIV 239 [id number] [facility] 00:00:00 00:00:00 d_J [id number] Medica l 2022-02-17 2022-02-17 [facility] [id number] [facility] 00:00:00 00:00:00 NELL Sanchez: Health - Med ical [address] [place] [address] , Ph. 2022-02-17 2022-02-17 Outpatient Daniel PRIV PRIV [id number] 00:00:00 00:00:00 Sarah [id number] 2022-02-16 2022-02-16 Outpatient [facility]Tod PRIV PRIV 239 [id number] [facility] 02:27:00 02:27:00 d_J [id number] Medica l 2022-02-06 2022-02-06 Outpatient [facility]Tod PRIV PRIV 239 [id number] [facility] 04:11:00 04:11:00 d_J [id number] Medica l 2022-02-06 2022-02-06 [facility] [id number] [facility] 00:00:00 00:00:00 NELL Sanchez: Health - Med ical [address] [place] [address] , Ph. 2022-02-06 2022-02-06 Outpatient Daniel PRIV PRIV [id number] [id number] 00:00:00 00:00:00 Sarah [id number] 2022-02-03 2022-02-03 Outpatient OZZY_MARBIN LERMA [facility] 782 [place] 12:48:00 12:48:00 _ANN 0712 [facility] Program 2022-01-30 2022-01-30 Outpatient [facility]Tod PRIV PRIV 239 [id number] [facility] 11:10:00 11:10:00 d_J [id number] Medica l 2022-01-28 2022-01-28 Outpatient [facility]Tod PRIV PRIV 239 [id number] [facility] 09:11:00 09:11:00 d_J [id number] Medica l 2022-01-27 2022-01-27 Outpatient [facility]Tod PRIV PRIV 239 [id number] [facility] 05:09:00 05:09:00 d_J [id number] Medica l 2022-01-27 2022-01-27 Sarah [facility] [id number] [facility] 00:00:00 00:00:00 NELL Sanchez: Health - Med ical [address] [place] [address] , Ph. 2022-01-27 2022-01-27 Outpatient Daniel PRIV PRIV [id number] 00:00:00 00:00:00 Sarah [id number] 2022-01-26 2022-01-26 Outpatient [facility]Tod PRIV PRIV 239 [id number] [facility] 10:52:00 10:52:00 d_J [id number] Medica l 2022-01-23 2022-01-23 Outpatient [facility]Tod PRIV PRIV 239 [id number] [facility] 05:33:00 05:33:00 d_J [id number] Medica l 2022-01-22 2022-01-22 Outpatient [facility]Tod PRIV PRIV 239 [id number] [facility] 07:45:00 07:45:00 d_J [id number] Medica l 2022-01-22 2022-01-22 Geovanni Yin [facility] 30 [facility] 00:00:00 00:00:[address] [facility] - Med ica MD: [address] [place] [address] , Ph. 2022-01-22 2022-01-22 Outpatient Stacy, PRIV PRIV [id number] 00:00:00 00:00:00 Geovanni Yin bed-11ec-a [id number] 2021-12-26 2021-12-26 Outpatient [facility]Tod PRIV PRIV 239 [id number] [facility] 02:08:00 02:08:00 d_J [id number] Medica l 2021-12-25 2021-12-25 Outpatient [facility]Tod PRIV PRIV 239 [id number] [facility] 02:07:00 02:07:00 d_J [id number] Medica l 2021-12-17 2021-12-17 Outpatient [facility]Tod PRIV PRIV 239 [id number] [facility] 05:21:00 05:21:00 d_J [id number] Medica l 2021-12-17 2021-12-17 Outpatient Daniel, PRIV PRIV [id number] 00:00:00 00:00:00 Sarah [id number] 2021-12-17 2021-12-17 Sarah [facility] [id number] [facility] 00:00:00 00:00:00 NELL Sanchez: Health - Med ical [address] [place] [address] , Ph. 2021-12-07 2021-12-07 Outpatient [facility]_Tod PRIV PRIV 239 [id number] [facility] 10:44:00 10:44:00 d_J [id number] Medica l 2021-12-04 2021-12-04 Outpatient [facility]Tod PRIV PRIV 239 [id number] [facility] 03:29:00 03:29:00 d_J [id number] Medica l 2021-11-28 2021-11-28 Outpatient [facility]Tod PRIV PRIV 239 [id number] [facility] 03:44:00 03:44:00 d_J [id number] Medica l 2021-11-28 2021-11-28 Outpatient Daniel, PRIV PRIV [id number] 00:00:00 00:00:00 Sarah [id number] 2021-11-28 2021-11-28 Sarah [facility] [id number] [facility] 00:00:00 00:00:00 NELL Sanchez: Health - Med ical [address] [place] [address] , Ph. 2021-11-27 2021-11-27 Outpatient [facility]Tod PRIV PRIV 239 [id number] [facility] 10:54:00 10:54:00 d_J [id number] Medica l 2021-11-26 2021-11-26 Outpatient [facility]_Tod PRIV PRIV 239 [id number] [facility] 05:21:00 05:21:00 d_J [id number] Medica l 2021-11-23 2021-11-23 Outpatient [facility]Tod PRIV PRIV 239 [id number] [facility] 10:43:00 10:43:00 d_J [id number] Medica l 2021-11-20 2021-11-20 Outpatient [facility]_Tod PRIV PRIV 239 [id number] [facility] 09:07:00 09:07:00 d_J [id number] Medica l 2021-11-20 2021-11-20 Outpatient Stacy, PRIV PRIV [id number] 00:00:00 00:00:00 Geovanni Yin [id number]-[id number] 2021-11-20 2021-11-20 Geovanni Yin [facility] [id number] [facility] 00:00:00 00:00:00 [facility] MD: [address] [place] [address] , Ph. 2021-11-18 2021-11-18 Outpatient [facility]_Tod PRIV PRIV 239 [id number] [facility] 08:39:00 08:39:00 d_J [id number] Medica l 2021-11-14 2021-11-14 Outpatient [facility]_Tod PRIV PRIV 239 [id number] [facility] 05:11:00 05:11:00 d_J [id number] Medica l 2021-11-14 2021-11-14 Outpatient Daniel, PRIV PRIV [id number] 00:00:00 00:00:00 Sarah [id number] 2021-11-14 2021-11-14 Sarah [facility] [id number] [facility] 00:00:00 00:00:00 NELL Sanchez: Health - Med ical [address] [place] [address] , Ph. 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 2021-11-06 2021-11-06 Outpatient Santos PRIV PRIV [id number] c-f 00:00:00 00:00:00 October [id number] 2021-11-05 2021-11-05 Outpatient [facility]_Tod PRIV PRIV 239 [id number] [facility] 12:42:00 12:42:00 Aleena [id number] Medica l 2021-11-03 2021-11-03 Outpatient [facility]_Spa PRIV PRIV 239 [id number] [facility] 10:13:00 10:13:00 Rachelle [id number] Medica l 2021-03-28 2021-04-02 [id number] 20:39[facility] 18:23:00 [facility] 2021-03-29 2021-03-[address] [facility] [id number] 00:00:00 00:00:00 Only [facility] 2021-03-29 2021-03-[address] [facility] [id number] [facility] 00[facility]00 [facility] 2018-07-15 2018-07-17 Outside nullFlavo MNA [id number] [facility] 16:15:00 05:59:59 Medical r Neurology 00 l Records Kristin Foster 2018-07-15 2018-07-16 Outpatient MHMISCHER MHMISCHER [id number] 10:15:00 23:59:59 00 2018-05-05 2018-05-06 Outpatient nullFlavo MNA [id number] [facility] 16:30:00 04:59:59 r Neurology 01 leanne Foster 2018-05-05 2018-05-05 Outpatient [id number] 11:30:00 23:59:59 Librado Apoorva Coy 2018-05-05 2018-05-05 Outpatient KRYSTA CHAPARRO [id number] [facility] 11:30:00 11:30:00 leanne Foster Results Test Description Test Time Test Comments Results Result Comments Source URINALYSIS COMPLETE 2022-11-15 20:30:00 Test Item Value Reference Range Interpretation Comme nts UA COLOR (test code = COLU) YELLOW YELLOW UA APPEARANCE (test code = Turbid CLEAR APPU) UA GLUCOSE DIPSTICK (test code NEGATIVE NEGATIVE = DGLUU) UA BILIRUBIN DIPSTICK (test NEGATIVE NEGATIVE code = BILU) UA KETONE DIPSTICK (test code = NEGATIVE NEGATIVE KETU) UA SPECIFIC GRAVITY (test code 1.014 1.001-1.030 = SGU) UA BLOOD DIPSTICK (test code = 2+ NEGATIVE GARRETT) UA PH DIPSTICK (test code = 6.0 5.0-9.0 CARMEL) UA PROTEIN DIPSTICK (test code 2+ NEGATIVE A = PROU) UA UROBILINOGEN DIPSTICK (test NEGATIVE See_Comment [Automated message] The code = URO) system which ge nerated this result transmit saulo reference range: <=1.0. T he reference range was not u sed to interpret this result as normal/abnormal . UA NITRITE DIPSTICK (test code NEGATIVE NEGATIVE = RANDI) UA ASCORBIC ACID DIPSTICK (test NEGATIVE code = AAU) UA LEUKOCYTE ESTERASE DIPSTICK 2+ NEGATIVE A (test code = LEUU) UA WBC (test code = WBCU) TNTC /HPF 0-5 A UA RBC (test code = RBCU) TNTC /HPF 0-5 A UA EPITHELIAL CELLS (test code None /LPF NONE-FEW = EPIU) UA BACTERIA (test code = BACU) 4+ /HPF NONE SEEN A [id number] 17:02:00 Test Item Value Reference Range Interpretation Comments AMMONIA (test code = AMM) 83 umol/L 11-35 H [id number] 20:22:00 Test Item Value Reference Range Interpretation Comments AMMONIA (test code = AMM) 104 umol/L 11-35 H COMPREHENSIVE METABOLIC [id number] 20:20:00 Test Item Value Reference Range Interpretation Comments SODIUM (test code = 138 mmol/L 135-145 N NA) POTASSIUM (test code 4.1 mmol/L 3.6-5.0 N = K) CHLORIDE (test code 104 mmol/L 101-111 N = CL) CARBON DIOXIDE (test 30 mmol/L 21-31 N code = CO2) GLUCOSE (test code = 92 mg/dl 70-100 N GLU) BLOOD UREA NITROGEN 20 mg/dl 6-20 N (test code = BUN) GLOMERULAR 40 >60 L The Glomerular FILTRATION RATE Filtration R ate is a (test code = GFR) calculated parameterbased on serum Creatinine, pat ient age and sex. GFR va luesless than 60 mL/min/ 1.73 square meters a re indicative ofCh ronic Kidney Disease. Values less than 15 mL/min/1.73squa re meters indicate Kidney failure. The calculation for GFR is based on the CK D-EPI (2020) calculat ion. This formulais race indifferent and is the recommended for shanna for GFRby the Natio nal Kidney Foundati on for Adults.The GFR will not calculate if th e sex is unknown or if thepatient's ag e is <18 years. CREATININE (test 1.71 mg/dL 0.64-1.27 H code = CREAT) TOTAL PROTEIN (test 6.8 g/dL 6.7-8.2 N code = PROT) ALBUMIN (test code = 2.5 g/dL 3.2-5.5 L ALB) CALCIUM (test code = 8.3 mg/dL 8.5-10.5 L CA) BILIRUBIN TOTAL 0.20 mg/dL 0.2-1.3 N (test code = BILT) SGOT/AST (test code 20 U/L 10-42 N = AST) SGPT/ALT (test code 9 U/L 10-60 L = ALT) ALKALINE PHOSPHATASE 112 U/L 42-121 N (test code = ALKP) COMPREHENSIVE METABOLIC [id number] 05:52:00 Test Item Value Reference Range Interpretation Comments SODIUM (test code = 136 mmol/L 135-145 N NA) POTASSIUM (test code 4.1 mmol/L 3.6-5.0 N = K) CHLORIDE (test code 104 mmol/L 101-111 N = CL) CARBON DIOXIDE (test 24 mmol/L 21-31 N code = CO2) GLUCOSE (test code = 77 mg/dl 70-100 N GLU) BLOOD UREA NITROGEN 15 mg/dl 6-20 N (test code = BUN) GLOMERULAR 43 >60 L The Glomerular FILTRATION RATE Filtration R ate is a (test code = GFR) calculated parameterbased on serum Creatinine, pat ient age and sex. GFR va luesless than 60 mL/min/ 1.73 square meters a re indicative ofCh ronic Kidney Disease. Values less than 15 mL/min/1.73squa re meters indicate Kidney failure. The calculation for GFR is based on the CK D-EPI (2020) calculat ion. This formulais race indifferent and is the recommended for shanna for GFRby the Nat nal Kidney Foundati on for Adults.The GFR will not calculate if th e sex is unknown or if thepatient's ag e is <18 years. CREATININE (test 1.63 mg/dL 0.64-1.27 H code = CREAT) TOTAL PROTEIN (test 6.5 g/dL 6.7-8.2 L code = PROT) ALBUMIN (test code = 2.4 g/dL 3.2-5.5 L ALB) CALCIUM (test code = 8.4 mg/dL 8.5-10.5 L CA) BILIRUBIN TOTAL 0.70 mg/dL 0.2-1.3 N (test code = BILT) SGOT/AST (test code 15 U/L 10-42 N = AST) SGPT/ALT (test code 8 U/L 10-60 L = ALT) ALKALINE PHOSPHATASE 108 U/L 42-121 N (test code = ALKP) CBC W/AUTO [id number] 05:34:00 Test Item Value Reference Range Interpretation Comments WHITE BLOOD CELL (test code = 10.8 x10 3/uL 3.2-11.5 N WBC) RED BLOOD CELL (test code = 3.90 x10(6)/m 4.20-5.70 L RBC) HEMOGLOBIN (test code = HGB) 11.9 g/dL 12.9-17.3 L HEMATOCRIT (test code = HCT) 36.9 % 38.7-51.0 L MEAN CELL VOLUME (test code = 95 fL 80-100 N MCV) MEAN CELL HGB (test code = MCH) 30.5 pg 26.7-33.3 N MEAN CELL HGB CONCENTRATION 32.2 g/dL 30.0-34.0 N (test code = MCHC) RED CELL DISTRIBUTION WIDTH 15.4 % 11.3-14.5 H (test code = RDW) PLATELET COUNT (test code = 211 x10 3/uL 130-408 N PLT) MEAN PLATELET VOLUME (test code 10.5 fL 8.6-12.6 N = MPV) NEUTROPHIL % (test code = NT%) 73.6 % 40.0-70.0 H LYMPHOCYTE % (test code = LY%) 13.2 % 20-40 L MONOCYTE % (test code = MO%) 11.0 % 1-10 H EOSINOPHIL % (test code = EO%) 1.2 % 0.0-5.0 N BASOPHIL % (test code = BA%) 0.5 % 0.0-1.0 N NUCLEATED RBC % (test code = 0.0 % 0.0-0.9 N NRBC%) NEUTROPHIL # (test code = NT#) 7.9 x10 3/uL 1.6-7.2 H LYMPHOCYTE # (test code = LY#) 1.42 x10 3/uL 1.1-2.7 N MONOCYTE # (test code = MO#) 1.2 x10 3/uL 0.3-0.8 H EOSINOPHIL # (test code = EO#) 0.1 x10 3/uL 0.0-0.5 N IMMATURE GRANULOCYTE % (test 0.5 % 0.0-2.0 N code = IG%) BASOPHIL # (test code = BA#) 0.1 x10 3/uL 0.0-0.1 N URINALYSIS [id number] 07:21:00 Test Item Value Reference Range Interpretation Comments UA COLOR (test code = YELLOW YELLOW COLU) UA APPEARANCE (test Cloudy CLEAR code = APPU) UA GLUCOSE DIPSTICK NEGATIVE NEGATIVE (test code = DGLUU) UA BILIRUBIN DIPSTICK NEGATIVE NEGATIVE (test code = BILU) UA KETONE DIPSTICK NEGATIVE NEGATIVE (test code = KETU) UA SPECIFIC GRAVITY 1.010 1.001-1.030 (test code = SGU) UA BLOOD DIPSTICK NEGATIVE NEGATIVE (test code = GARRETT) UA PH DIPSTICK (test 8.0 5.0-9.0 code = CARMEL) UA PROTEIN DIPSTICK 1+ NEGATIVE A (test code = PROU) UA UROBILINOGEN NEGATIVE See_Comment [Automated message] DIPSTICK (test code = The sy stem which URO) generated this result transmitted ref erence range: <=1.0. T he reference range was not used to int erpret this result as normal/abnormal . UA NITRITE DIPSTICK POSITIVE NEGATIVE A (test code = RANDI) UA ASCORBIC ACID NEGATIVE DIPSTICK (test code = AAU) UA LEUKOCYTE ESTERASE 3+ NEGATIVE A DIPSTICK (test code = LEUU) UA WBC (test code = 11-20 /HPF 0-5 WBCU) UA RBC (test code = 0-5 /HPF 0-5 RBCU) UA EPITHELIAL CELLS FEW /LPF NONE-FEW (test code = EPIU) UA BACTERIA (test code 2+ /HPF NONE SEEN A = BACU) Cholesterol in LDL [Mass/volume] in Serum or [id number] 00:00:00 Test Item Value Reference Range Interpretation Comments Cholesterol in LDL [Mass/volume] in 83 Serum or Plasma (test code = 9-1) [facility] LDL [Mass/volume] in Serum or [id number] 00:00:00 Test Item Value Reference Range Interpretation Comments Cholesterol in LDL [Mass/volume] in 83 Serum or Plasma (test code = 9-1) [facility] Medical[facility]olesterol in LDL [Mass/volume] in Serum or [id number] 00:00:00 Test Item Value Reference Range Interpretation Comments Cholesterol in LDL [Mass/volume] in 108 Serum or Plasma (test code = 9-1) [facility] Medical[facility]olesterol in LDL [Mass/volume] in Serum or [id number] 00:00:00 Test Item Value Reference Range Interpretation Comments Cholesterol in LDL [Mass/volume] in 122 Serum or Plasma (test code = 2089-1) [facility] Medical[facility]olesterol in LDL [Mass/volume] in Serum or [id number] 00:00:00 Test Item Value Reference Range Interpretation Comments Cholesterol in LDL [Mass/volume] in 122 Serum or Plasma (test code = 2089-1) [facility] MedicalCholesterol in LDL [Mass/volume] in Serum or [id number] 00:00:00 Test Item Value Reference Range Interpretation Comments Cholesterol in LDL [Mass/volume] in 122 Serum or Plasma (test code = 2089-1) [facility] [id number] 09:42:00 Test Item Value Reference Range Interpretation Comments Result (test code = 80-89,000 col/mL A 6463-4) Capri tropicalis Lab Interpretation (test Abnormal code = 73484-2) [facility]2021-09-09 09:42:00 Test Item Value Reference Range Interpretation Comments Result (test code = 80-89,000 col/mL A 6463-4) [facility] tropicalis Lab Interpretation (test Abnormal code = 04485-4) [facility]2021-09-09 09:42:00 Test Item Value Reference Range Interpretation Comments Result (test code = 80-89,000 col/mL A 6463-4) [facility] tropicalis Lab Interpretation (test Abnormal code = 74553-2) [facility]2021-09-09 09:42:00 Test Item Value Reference Range Interpretation Comments Result (test code = 80-89,000 col/mL A 6463-4) [facility] tropicalis Lab Interpretation (test Abnormal code = 23888-2) [facility]2021-09-09 09:42:00 Test Item Value Reference Range Interpretation Comments Result (test code = 80-89,000 col/mL A 6463-4) [facility] tropicalis Lab Interpretation (test Abnormal code = 83111-6) [facility]2021-09-09 09:42:00 Test Item Value Reference Range Interpretation Comments Result (test code = 80-89,000 col/mL A 6463-4) Capri tropicalis Lab Interpretation (test Abnormal code = 27431-0) [facility] Culture - Routine (Left Venipuncture)2021-04-03 04:01:00 Test Item Value Reference Range Interpretation Comments Result (test code = No growth in 5 days 6463-4) [facility] Culture - Routine (Left Venipuncture)2021-04-03 04:01:00 Test Item Value Reference Range Interpretation Comments Result (test code = No growth in 5 days 6463-4) [facility] Culture - Routine (Left Venipuncture)2021-04-03 04:01:00 Test Item Value Reference Range Interpretation Comments Result (test code = No growth in 5 days 6463-4) [facility] Culture - Routine (Left Venipuncture)2021-04-03 04:01:00 Test Item Value Reference Range Interpretation Comments Result (test code = No growth in 5 days 6463-4) [facility] Culture - Routine (Left Venipuncture)2021-04-03 04:01:00 Test Item Value Reference Range Interpretation Comments Result (test code = No growth in 5 days 6463-4) [facility] Culture - Routine (Left Venipuncture)2021-04-03 04:01:00 Test Item Value Reference Range Interpretation Comments Result (test code = No growth in 5 days 6463-4) [id number] 04:01:00 Test Item Value Reference Range Interpretation Comments CULTURE (BEAKER) (test No growth in 5 days code = 1095) BLOOD [id number] 04:01:00 Test Item Value Reference Range Interpretation Comments CULTURE (BEAKER) (test No growth in 5 days code = 1095) [id number] 14:50:00 Test Item Value Reference Range Interpretation Comments Ferritin (test code = 486.66 ng/mL 5-275 H 2276-4) STACY (test code = STACY) Construction Safety Manager ID - PIAYA L Lab Interpretation (test Abnormal code = 08453-8) [facility] 14:50[facility]00 Test Item Value Reference Range Interpretation Comments Ferritin (test code = 486.66 ng/mL 5.00-275.00 H 2276-4) STACY (test code = STACY) Construction Safety Manager ID - PIAYA L Lab Interpretation (test Abnormal code = 82635-0) [facility] 14:50:00 Test Item Value Reference Range Interpretation Comments Ferritin (test code = 486.66 ng/mL 5.00-275.00 H 2276-4) STACY (test code = STACY) Construction Safety Manager ID - PIAYA L Lab Interpretation (test Abnormal code = 27431-5) [facility] 14:50:00 Test Item Value Reference Range Interpretation Comments Ferritin (test code = 486.66 ng/mL 5.00-275.00 H 2276-4) STACY (test code = STACY) Construction Safety Manager ID - PIAYA L Lab Interpretation (test Abnormal code = 63338-7) [facility] 14:50:00 Test Item Value Reference Range Interpretation Comments Ferritin (test code = 486.66 ng/mL 5.00-275.00 H 2276-4) STACY (test code = STACY) Construction Safety Manager ID - PIAYA L Lab Interpretation (test Abnormal code = 04804-1) [facility]:00 Test Item Value Reference Range Interpretation Comments Ferritin (test code = 486.66 ng/mL 5.00-275.00 H 2276-4) STACY (test code = STACY) Construction Safety Manager ID - MERT L Lab Interpretation (test Abnormal code = 78333-9) [facility] 14:50:00 Test Item Value Reference Range Interpretation Comments FERRITIN (BEAKER) (test code = 486.66 ng/mL 5.00-275.00 H 361) Construction Safety Manager ID - MERT [id number] 14:43:00 Test Item Value Reference Range Interpretation Comments Procalcitonin (test <0.05 See_Comment [Automa saulo code = 59894-1) message] The system which generated this result transmit saulo reference range : <0.05 ng/mL. Th e reference range was not used to interpret this result as normal/abnormal . STACY (test code = STACY) SEPSIS RISK (ng/mL)Low: 0.05-0.50Inter mediate: 0.51-2.00High: >=2.01 Lab Interpretation Normal (test code = 95908-1) [facility] C[id number] 14:43:00 Test Item Value Reference Range Interpretation Comments Procalcitonin (test <0.05 See_Comment [Automa saulo code = 79326-9) message] The system which generated this result transmit saulo reference range : <0.05 ng/mL. Th e reference range was not used to interpret this result as normal/abnormal . STACY (test code = STACY) SEPSIS RISK (ng/mL)Low: 0.05-0.50Inter mediate: 0.51-2.00High: >=2.01 Lab Interpretation Normal (test code = 43485-3) [facility] Cen[id number] 14:43:00 Test Item Value Reference Range Interpretation Comments Procalcitonin (test <0.05 See_Comment [Automa saulo code = 80763-4) message] The system which generated this result transmit saulo reference range : <0.05 ng/mL. Th e reference range was not used to interpret this result as normal/abnormal . STACY (test code = STACY) SEPSIS RISK (ng/mL)Low: 0.05-0.50Inter mediate: 0.51-2.00High: >=2.01 Lab Interpretation Normal (test code = 55523-5) [facility] CenterLspujqNrehphpgmornh4861-53-78 14:43:00 Test Item Value Reference Range Interpretation Comments Procalcitonin (test <0.05 See_Comment [Automa saulo code = 05187-2) message] The system which generated this result transmit saulo reference range : <0.05 ng/mL. Th e reference range was not used to interpret this result as normal/abnormal . STACY (test code = STACY) SEPSIS RISK (ng/mL)Low: 0.05-0.50Inter mediate: 0.51-2.00High: >=2.01 Lab Interpretation Normal (test code = 69695-6) [facility] [facility]ajvjisbfuehd7990-19-72 14:43:00 Test Item Value Reference Range Interpretation Comments Procalcitonin (test <0.05 See_Comment [Automa saulo code = 94745-2) message] The system which generated this result transmit saulo reference range : <0.05 ng/mL. Th e reference range was not used to interpret this result as normal/abnormal . STACY (test code = STACY) SEPSIS RISK (ng/mL)Low: 0.05-0.50Inter mediate: 0.51-2.00High: >=2.01 Lab Interpretation Normal (test code = 45188-2) [facility]JxgldqKxcvzbvcjoibh2372-20-19 14:43:00 Test Item Value Reference Range Interpretation Comments Procalcitonin (test <0.05 See_Comment [Automa saulo code = 67860-8) message] The system which generated this result transmit saulo reference range : <0.05 ng/mL. Th e reference range was not used to interpret this result as normal/abnormal . STACY (test code = STACY) SEPSIS RISK (ng/mL)Low: 0.05-0.50Inter mediate: 0.51-2.00High: >=2.01 Lab Interpretation Normal (test code = 25836-1) [facility] CenterUqiwijRXIQCSMDMXXJT1219-92-14 14:43:00 Test Item Value Reference Range Interpretation Comments PROCALCITONIN (BEAKER) (test code = < ng/mL <0.05 3036) SEPSIS RISK (ng/mL)Low: 0.05-0.50Intermediate: 0.51-2.00High: >=2.01 Comprehensive metabolic [id number] 14:39:00 Test Item Value Reference Range Interpretation [...] 2.0 g/dL 3.5-5 L Specime n slightly 34040-9) hemolyzed Alkaline Phosphatase 65 U/L 40-150 (test code = 6768-6) Total Bilirubin (test 0.4 mg/dL 0.2-1.2 Specim en slightly code = 1975-2) hemolyzed Sodium (test code = 141 meq/L 190-307 7763-2) Potassium (test code 3.3 meq/L 3.5-5.1 L [...] (test code = 7.2 mg/dL 8.4-10.2 L 30984-3) AST (test code = 38 U/L 5-34 H Specimen sl ightly 1920-8) hemolyzed ALT (test code = 31 U/L 6-55 Specimen sl ightly 1742-6) hemolyzed EGFR (test code = 95 mL/min/1.[place] [address]-2) NOT ACCURATE CREATININE CLEARANCE IN PREDICTING GLOMERULAR FILTRATION RATE . ESTIMATED GFR I S NOT APPLICABLE FOR DIALYSIS PATIEN TS. STACY (test code = STACY) Construction Safety Manager ID - PIAYA L Lab Interpretation Abnormal (test code = 21808-9) [facility] ([facility])2021-04-02 14:39:00 Test Item Value Reference Range Interpretation Comments LDH (test code = 390 U/L 125-220 H Specimen 2532-0) slightly hemolyzed STACY (test code = STACY) Construction Safety Manager ID - PIAYA L Lab Interpretation Abnormal (test code = 69720-8) [facility]Com[facility] [id number] 14:39:00 Test Item Value Reference Range Interpretation [...] 2.0 g/dL 3.5-5.0 L Specime n slightly 56806-9) hemolyzed Alkaline Phosphatase 65 U/L 40-150 (test code = 6768-6) Total Bilirubin (test 0.4 mg/dL 0.2-1.2 Specim en slightly code = 1974-2) hemolyzed Sodium (test code = 141 meq/L 412-172 8269-2) Potassium (test code 3.3 meq/L 3.5-5.1 L [...] (test code = 7.2 mg/dL 8.4-10.2 L 99100-2) AST (test code = 38 U/L 5-34 H Specimen sl ightly 1920-8) hemolyzed ALT (test code = 31 U/L 6-55 Specimen sl ightly 1742-6) hemolyzed EGFR (test code = 95 mL/min/1.[place] [address]-9) NOT ACCURATE CREATININE CLEARANCE IN PREDICTING GLOMERULAR FILTRATION RATE . ESTIMATED GFR I S NOT APPLICABLE FOR DIALYSIS PATIEN TS. STACY (test code = STACY) Construction Safety Manager ID - PIAYA L Lab Interpretation Abnormal (test code = 60932-2) [facility])2021-04-02 14:39:00 Test Item Value Reference Range Interpretation Comments LDH (test code = 390 U/L 125-220 H Specimen 2532-0) slightly hemolyzed STACY (test code = STACY) Construction Safety Manager ID - PIAYA L Lab Interpretation Abnormal (test code = 18358-3) [facility] [id number] 14:39:00 Test Item Value Reference Range Interpretation Comments Protein, Total (test 6.0 See_Comment Specime n slightly code = 1215-2) hemolyzed [Automated message] The system which generated this result transmit saulo reference range : 6.0 - 8.3 gm/dL . The reference range was not u sed to interpret th is result as normal/abnormal . Albumin (test code = 2.0 g/dL 3.5-5.0 L Specime n slightly 71117-3) hemolyzed Alkaline Phosphatase 65 U/L 40-150 (test code = 6768-6) Total Bilirubin (test 0.4 mg/dL 0.2-1.2 Specim en slightly code = 1974-2) hemolyzed Sodium (test code = 141 meq/L 500-190 3190-2) Potassium (test code 3.3 meq/L 3.5-5.1 L [...] (test code = 7.2 mg/dL 8.4-10.2 L 87274-3) AST (test code = 38 U/L 5-34 H Specimen sl ightly 1920-8) hemolyzed ALT (test code = 31 U/L 6-55 Specimen sl ightly 1742-6) hemolyzed EGFR (test code = 95 mL/min/1.[place] [address]-1) NOT ACCURATE CREATININE CLEARANCE IN PREDICTING GLOMERULAR FILTRATION RATE . ESTIMATED GFR I S NOT APPLICABLE FOR DIALYSIS PATIEN TS. STACY (test code = STACY) Construction Safety Manager ID - PIAYA L Lab Interpretation Abnormal (test code = 11654-1) [facility])2021-04-02 14:39:00 Test Item Value Reference Range Interpretation Comments LDH (test code = 390 U/L 125-220 H Specimen 2532-0) slightly hemolyzed STACY (test code = STACY) Construction Safety Manager ID - PIAYA L Lab Interpretation Abnormal (test code = 27127-2) [facility] [id number] 14:39:00 Test Item Value Reference Range Interpretation [...] 2.0 g/dL 3.5-5.0 L Specime n slightly 48922-6) hemolyzed Alkaline Phosphatase 65 U/L 40-150 (test code = 6768-6) Total Bilirubin (test 0.4 mg/dL 0.2-1.2 Specim en slightly code = 1974-2) hemolyzed Sodium (test code = 141 meq/L 792-045 0922-2) Potassium (test code 3.3 meq/L 3.5-5.1 L [...] (test code = 7.2 mg/dL 8.4-10.2 L 07336-0) AST (test code = 38 U/L 5-34 H Specimen sl ightly 1920-8) hemolyzed ALT (test code = 31 U/L 6-55 Specimen sl ightly 1742-6) hemolyzed EGFR (test code = 95 mL/min/1.[place] [address]-5) NOT ACCURATE CREATININE CLEARANCE IN PREDICTING GLOMERULAR FILTRATION RATE . ESTIMATED GFR I S NOT APPLICABLE FOR DIALYSIS PATIEN TS. STACY (test code = STACY) Construction Safety Manager ID - PIAYA L Lab Interpretation Abnormal (test code = 54741-3) [facility]2021-04-02 14:39:00 Test Item Value Reference Range Interpretation Comments LDH (test code = 390 U/L 125-220 H Specimen 2532-0) slightly hemolyzed STACY (test code = STACY) Construction Safety Manager ID - PIAYA L Lab Interpretation Abnormal (test code = 92717-8) [facility] [id number] 14:39:00 Test Item Value Reference Range Interpretation [...] 2.0 g/dL 3.5-5.0 L Specime n slightly 40165-2) hemolyzed Alkaline Phosphatase 65 U/L 40-150 (test code = 6768-6) Total Bilirubin (test 0.4 mg/dL 0.2-1.2 Specim en slightly code = 1974-2) hemolyzed Sodium (test code = 141 meq/L 366-482 2061-2) Potassium (test code 3.3 meq/L 3.5-5.1 L [...] (test code = 7.2 mg/dL 8.4-10.2 L 37744-0) AST (test code = 38 U/L 5-34 H Specimen sl ightly 1920-8) hemolyzed ALT (test code = 31 U/L 6-55 Specimen sl ightly 1742-6) hemolyzed EGFR (test code = 95 mL/min/1.[place] [address]-8) NOT ACCURATE CREATININE CLEARANCE IN PREDICTING GLOMERULAR FILTRATION RATE . ESTIMATED GFR I S NOT APPLICABLE FOR DIALYSIS PATIEN TS. STACY (test code = STACY) Construction Safety Manager ID - PIAYA L Lab Interpretation Abnormal (test code = 26505-0) [facility]21-[facility]-02 14:39:00 Test Item Value Reference Range Interpretation Comments LDH (test code = 390 U/L 125-220 H Specimen 2532-0) slightly hemolyzed STACY (test code = STACY) Construction Safety Manager ID - PIAYA L Lab Interpretation Abnormal (test code = 81011-6) [facility] [id number] 14:39:00 Test Item Value Reference Range Interpretation [...] 2.0 g/dL 3.5-5.0 L Specime n slightly 20779-7) hemolyzed Alkaline Phosphatase 65 U/L 40-150 (test code = 6768-6) Total Bilirubin (test 0.4 mg/dL 0.2-1.2 Specim en slightly code = 1975-2) hemolyzed Sodium (test code = 141 meq/L 941-904 7475-2) Potassium (test code 3.3 meq/L 3.5-5.1 L [...] (test code = 7.2 mg/dL 8.4-10.2 L 37470-5) AST (test code = 38 U/L 5-34 H Specimen sl ightly 1920-8) hemolyzed ALT (test code = 31 U/L 6-55 Specimen sl ightly 1742-6) hemolyzed EGFR (test code = 95 mL/min/1.[place] [address]-4) NOT ACCURATE CREATININE CLEARANCE IN PREDICTING GLOMERULAR FILTRATION RATE . ESTIMATED GFR I S NOT APPLICABLE FOR DIALYSIS PATIEN TS. STACY (test code = STACY) Construction Safety Manager ID - PIAYA L Lab Interpretation Abnormal (test code = 13035-7) [facility]21-[facility] 14:39:00 Test Item Value Reference Range Interpretation Comments LDH (test code = 390 U/L 125-220 H Specimen 2532-0) slightly hemolyzed TSACY (test code = STACY) Construction Safety Manager ID - MERT L Lab Interpretation Abnormal (test code = 93804-0) [facility]-02 14:39:00 Test Item Value Reference Range Interpretation Comments LACTATE DEHYDROGENASE 390 U/L 125-220 H Specim en slightly (BEAKER) (test code = hemoly zed 635) Construction Safety Manager ID - MERT LCOMPREHENSIVE METABOLIC [id number] 14:39:00 Test Item Value Reference Range Interpretation [...] S NOT APPLICABLE FOR DIALYSIS PATIEN TS. Construction Safety Manager ID - PIAYA INvcqsgslp9678-31-71 14:35:00 Test Item Value Reference Range Interpretation Comments Magnesium (test code = 1.4 mg/dL 1.6-2.6 L Speci men 70876-4) slightly hemolyzed STACY (test code = STACY) Construction Safety Manager ID - PIAYA L Lab Interpretation Abnormal (test code = 21654-8) [facility] Ftkgyvz1399-99-61 14:35:00 Test Item Value Reference Range Interpretation Comments CRP (test code = 676) 2.68 mg/dL 0-0.5 H STACY (test code = STACY) Construction Safety Manager ID - PIAYA L Lab Interpretation (test Abnormal code = 83915-1) [facility] Center[facility]esium2021-[facility] 14:35:00 Test Item Value Reference Range Interpretation Comments Magnesium (test code = 1.4 mg/dL 1.6-2.6 L Speci men 16664-3) slightly hemolyzed STACY (test code = STACY) Construction Safety Manager ID - PIAYA L Lab Interpretation Abnormal (test code = 86902-9) [facility] Myyufzm7884-81-00 14:35:00 Test Item Value Reference Range Interpretation Comments CRP (test code = 676) 2.68 mg/dL 0.00-0.50 H STACY (test code = STACY) Construction Safety Manager ID - PIAYA L Lab Interpretation (test Abnormal code = 97786-1) [facility] 14:35:00 Test Item Value Reference Range Interpretation Comments Magnesium (test code = 1.4 mg/dL 1.6-2.6 L Speci men 65258-0) slightly hemolyzed STACY (test code = STACY) Construction Safety Manager ID - PIAYA L Lab Interpretation Abnormal (test code = 06836-7) [facility] Hejypvx6352-95-48 14:35:00 Test Item Value Reference Range Interpretation Comments CRP (test code = 676) 2.68 mg/dL 0.00-0.50 H STACY (test code = STACY) Construction Safety Manager ID - PIAYA L Lab Interpretation (test Abnormal code = 21797-9) [facility] 14:35:00 Test Item Value Reference Range Interpretation Comments Magnesium (test code = 1.4 mg/dL 1.6-2.6 L Speci men 96589-9) slightly hemolyzed STACY (test code = STACY) Construction Safety Manager ID - PIAYA L Lab Interpretation Abnormal (test code = 21936-7) [facility] Fdbhmdl0812-51-59 14:35:00 Test Item Value Reference Range Interpretation Comments CRP (test code = 676) 2.68 mg/dL 0.00-0.50 H STACY (test code = STACY) Construction Safety Manager ID - PIAYA L Lab Interpretation (test Abnormal code = 14488-1) [facility] 14:35:00 Test Item Value Reference Range Interpretation Comments Magnesium (test code = 1.4 mg/dL 1.6-2.6 L Speci men 35179-8) slightly hemolyzed STACY (test code = STACY) Construction Safety Manager ID - PIAYA L Lab Interpretation Abnormal (test code = 68355-8) [facility] Mzsubyu4543-14-41 14:35:00 Test Item Value Reference Range Interpretation Comments CRP (test code = 676) 2.68 mg/dL 0.00-0.50 H STACY (test code = STACY) Construction Safety Manager ID - PIAYA L Lab Interpretation (test Abnormal code = 70839-4) [facility] 14:35:00 Test Item Value Reference Range Interpretation Comments Magnesium (test code = 1.4 mg/dL 1.6-2.6 L Speci men 44470-2) slightly hemolyzed STACY (test code = STACY) Construction Safety Manager ID - PIAYA L Lab Interpretation Abnormal (test code = 62988-4) [facility] Aspylma8161-64-67 14:35:00 Test Item Value Reference Range Interpretation Comments CRP (test code = 676) 2.68 mg/dL 0.00-0.50 H STACY (test code = STACY) Construction Safety Manager ID - PIAYA L Lab Interpretation (test Abnormal code = 54070-5) [facility] 14:[facility] Test Item Value Reference Range Interpretation Comments MAGNESIUM (BEAKER) 1.4 mg/dL 1.6-2.6 L Specimen slightly (test code = 627) hemolyzed Construction Safety Manager [employer] [facility]-REACTIVE RXOQPAJ4954-80-11 14:35:00 Test Item Value Reference Range Interpretation Comments C-REACTIVE PROTEIN (BEAKER) (test 2.68 mg/dL 0.00-0.50 H code = 676) Construction Safety Manager [employer] LR-yibbp5248-46-08 14:24:00 Test Item Value Reference Range Interpretation Comments D-Dimer, Quant (test 1.25 See_Comment H [Autom ated code = 98675-6) message] The system which generated this result [...] range. Lab Interpretation Abnormal (test code = 68125-6) [facility] CenterD-nimyk9127-68-40 14:24:00 Test Item Value Reference Range Interpretation Comments D-Dimer, Quant (test 1.25 See_Comment H [Autom ated code = 43791-5) message] The system which generated this result [...] range. Lab Interpretation Abnormal (test code = 97819-2) [facility] CenterD-davfb1447-82-87 14:24:00 Test Item Value Reference Range Interpretation Comments D-Dimer, Quant (test 1.25 See_Comment H [Autom ated code = 20298-2) message] The system which generated this result [...] range. Lab Interpretation Abnormal (test code = 06780-2) [facility]61[facility] 14:24:00 Test Item Value Reference Range Interpretation Comments D-Dimer, Quant (test 1.25 See_Comment H [Autom ated code = 55211-8) message] The system which generated this result [...] range. Lab Interpretation Abnormal (test code = 99606-6) [facility]-apucg0259-34-54 14:24:00 Test Item Value Reference Range Interpretation Comments D-Dimer, Quant (test 1.25 See_Comment H [Autom ated code = 79608-1) message] The system which generated this result [...] range. Lab Interpretation Abnormal (test code = 85409-6) [facility]-rcbkt8274-79-13 14:24:00 Test Item Value Reference Range Interpretation Comments D-Dimer, Quant (test 1.25 See_Comment H [Autom ated code = 11284-6) message] The system which generated this result [...] range. Lab Interpretation Abnormal (test code = 01124-4) [facility]-UFOUN8719-73-25 14:24:00 Test Item Value Reference Range Interpretation [...] 95-100% range.CBC with platelet count + automated [id number] 14:17:00 Test Item Value Reference Range Interpretation Comments WBC (test code = 6690-2) 14.6 See_Comment H [A utomated message] The system [employer] generated this result transmitted ref erence range: 3.5 - 10 .5 K/L. The refe rence range was not u sed to interpret this result as normal/abnor mal. RBC (test code = 789-8) 4.03 See_Comment L [Au tomated message] The system [employer] generated this result transmitted ref erence range: 4.63 - 6 .08 M/L. The refe rence range was not u sed to interpret this result as normal/abnor mal. MCHC (test code = 786-4) 32.0 See_Comment L [A utomated message] The system [employer] generated this result transmitted ref erence range: [...] See_Comment [Aut omated message] 777-3) The system [employer] generated this result transmitted ref erence range: 150 - 45 0 K/CU MM. The referen ce range was not u sed to interpret this result as normal/abnor mal. MPV (test code = 11.2 fL 9.4-12.4 03037-7) nRBC (test code = 413) 1 See_Comment H [Aut omated message] The system [employer] generated this result transmitted ref erence range: [...] H [Aut omated message] 670) The system [employer] generated this result transmitted ref erence range: 1.78 - 5 .38 K/L. The refe rence range was not u sed to interpret this result as normal/abnor mal. # Lymphs (test code = 1.26 See_Comment L [Auto mated message] 414) The system [employer] generated this result transmitted ref erence range: 1.32 - 3 .57 K/L. The refe rence range was not u sed to interpret this result as normal/abnor mal. # Monos (test code = 0.76 See_Comment [Autom ated message] 415) The system [employer] generated this result transmitted ref erence range: 0.30 - 0 .82 K/L. The refe rence range was not u sed to interpret this result as normal/abnor mal. # Eos (test code = 416) 0.00 See_Comment L [Au tomated message] The system [employer] generated this result transmitted ref erence range: 0.04 - 0 .54 K/L. The refe rence range was not u sed to interpret this result as normal/abnor mal. # Baso (test code = 417) 0.03 See_Comment [A utomated message] The system [employer] generated this result transmitted ref erence range: 0.01 - 0 .08 K/L. The refe rence range was not u sed to interpret this result as normal/abnor mal. Immature 2 % 0-1 H Granulocytes-Relative (test code = 2801) Lab Interpretation (test Abnormal code = 67680-7) [facility] with platelet count + automated [id number] 14:17:00 Test Item Value Reference Range Interpretation Comments WBC (test code = 6690-2) 14.6 See_Comment H [A utomated message] The system [employer] generated this result transmitted ref erence range: 3.5 - 10 .5 K/L. The refe rence range was not u sed to interpret this result as normal/abnor mal. RBC (test code = 789-8) 4.03 See_Comment L [Au tomated message] The system [employer] generated this result transmitted ref erence range: 4.63 - 6 .08 M/L. The refe rence range was not u sed to interpret this result as normal/abnor mal. MCHC (test code = 786-4) 32.0 See_Comment L [A utomated message] The system [employer] generated this result transmitted ref erence range: [...] See_Comment [Aut omated message] 777-3) The system [employer] generated this result transmitted ref erence range: 150 - 45 0 K/CU MM. The referen ce range was not u sed to interpret this result as normal/abnor mal. MPV (test code = 11.2 fL 9.4-12.4 21560-5) nRBC (test code = 413) 1 See_Comment H [Aut omated message] The system [employer] generated this result transmitted ref erence range: [...] H [Aut omated message] 670) The system [employer] generated this result transmitted ref erence range: 1.78 - 5 .38 K/L. The refe rence range was not u sed to interpret this result as normal/abnor mal. # Lymphs (test code = 1.26 See_Comment L [Auto mated message] 414) The system [employer] generated this result transmitted ref erence range: 1.32 - 3 .57 K/L. The refe rence range was not u sed to interpret this result as normal/abnor mal. # Monos (test code = 0.76 See_Comment [Autom ated message] 415) The system [employer] generated this result transmitted ref erence range: 0.30 - 0 .82 K/L. The refe rence range was not u sed to interpret this result as normal/abnor mal. # Eos (test code = 416) 0.00 See_Comment L [Au tomated message] The system [employer] generated this result transmitted ref erence range: 0.04 - 0 .54 K/L. The refe rence range was not u sed to interpret this result as normal/abnor mal. # Baso (test code = 417) 0.03 See_Comment [A utomated message] The system [employer] generated this result transmitted ref erence range: 0.01 - 0 .08 K/L. The refe rence range was not u sed to interpret this result as normal/abnor mal. Immature 2 % 0-1 H Granulocytes-Relative (test code = 2801) Lab Interpretation (test Abnormal code = 51348-6) [facility] with platelet count + automated [id number] 14:17:00 Test Item Value Reference Range Interpretation Comments WBC (test code = 6690-2) 14.6 See_Comment H [A utomated message] The system [employer] generated this result transmitted ref erence range: 3.5 - 10 .5 K/L. The refe rence range was not u sed to interpret this result as normal/abnor mal. RBC (test code = 789-8) 4.03 See_Comment L [Au tomated message] The system [employer] generated this result transmitted ref erence range: 4.63 - 6 .08 M/L. The refe rence range was not u sed to interpret this result as normal/abnor mal. MCHC (test code = 786-4) 32.0 See_Comment L [A utomated message] The system [employer] generated this result transmitted ref erence range: [...] See_Comment [Aut omated message] 777-3) The system [employer] generated this result transmitted ref erence range: 150 - 45 0 K/CU MM. The referen ce range was not u sed to interpret this result as normal/abnor mal. MPV (test code = 11.2 fL 9.4-12.4 66590-8) nRBC (test code = 413) 1 See_Comment H [Aut omated message] The system [employer] generated this result transmitted ref erence range: [...] H [Aut omated message] 670) The system [employer] generated this result transmitted ref erence range: 1.78 - 5 .38 K/L. The refe rence range was not u sed to interpret this result as normal/abnor mal. # Lymphs (test code = 1.26 See_Comment L [Auto mated message] 414) The system [employer] generated this result transmitted ref erence range: 1.32 - 3 .57 K/L. The refe rence range was not u sed to interpret this result as normal/abnor mal. # Monos (test code = 0.76 See_Comment [Autom ated message] 415) The system [employer] generated this result transmitted ref erence range: 0.30 - 0 .82 K/L. The refe rence range was not u sed to interpret this result as normal/abnor mal. # Eos (test code = 416) 0.00 See_Comment L [Au tomated message] The system [employer] generated this result transmitted ref erence range: 0.04 - 0 .54 K/L. The refe rence range was not u sed to interpret this result as normal/abnor mal. # Baso (test code = 417) 0.03 See_Comment [A utomated message] The system [employer] generated this result transmitted ref erence range: 0.01 - 0 .08 K/L. The refe rence range was not u sed to interpret this result as normal/abnor mal. Immature 2 % 0-1 H Granulocytes-Relative (test code = 2801) Lab Interpretation (test Abnormal code = 20184-2) [facility] with platelet count + automated [id number] 14:17:00 Test Item Value Reference Range Interpretation Comments WBC (test code = 6690-2) 14.6 See_Comment H [A utomated message] The system [employer] generated this result transmitted ref erence range: 3.5 - 10 .5 K/L. The refe rence range was not u sed to interpret this result as normal/abnor mal. RBC (test code = 789-8) 4.03 See_Comment L [Au tomated message] The system [employer] generated this result transmitted ref erence range: 4.63 - 6 .08 M/L. The refe rence range was not u sed to interpret this result as normal/abnor mal. MCHC (test code = 786-4) 32.0 See_Comment L [A utomated message] The system [employer] generated this result transmitted ref erence range: [...] code = 264 See_Comment [Aut omated message] 457-3) The system [employer] generated this result transmitted ref erence range: 150 - 45 0 K/CU MM. The referen ce range was not u sed to interpret this result as normal/abnor mal. MPV (test code = 11.2 fL 9.4-12.4 91431-3) nRBC (test code = 413) 1 See_Comment H [Aut omated message] The system [employer] generated this result transmitted ref erence range: [...] H [Aut omated message] 670) The system [employer] generated this result transmitted ref erence range: 1.78 - 5 .38 K/L. The refe rence range was not u sed to interpret this result as normal/abnor mal. # Lymphs (test code = 1.26 See_Comment L [Auto mated message] 414) The system [employer] generated this result transmitted ref erence range: 1.32 - 3 .57 K/L. The refe rence range was not u sed to interpret this result as normal/abnor mal. # Monos (test code = 0.76 See_Comment [Autom ated message] 415) The system [employer] generated this result transmitted ref erence range: 0.30 - 0 .82 K/L. The refe rence range was not u sed to interpret this result as normal/abnor mal. # Eos (test code = 416) 0.00 See_Comment L [Au tomated message] The system [employer] generated this result transmitted ref erence range: 0.04 - 0 .54 K/L. The refe rence range was not u sed to interpret this result as normal/abnor mal. # Baso (test code = 417) 0.03 See_Comment [A utomated message] The system [employer] generated this result transmitted ref erence range: 0.01 - 0 .08 K/L. The refe rence range was not u sed to interpret this result as normal/abnor mal. Immature 2 % 0-1 H Granulocytes-Relative (test code = 2801) Lab Interpretation (test Abnormal code = 75948-5) [facility] with platelet count + automated [id number] 14:17:00 Test Item Value Reference Range Interpretation Comments WBC (test code = 6690-2) 14.6 See_Comment H [A utomated message] The system [employer] generated this result transmitted ref erence range: 3.5 - 10 .5 K/L. The refe rence range was not u sed to interpret this result as normal/abnor mal. RBC (test code = 789-8) 4.03 See_Comment L [Au tomated message] The system [employer] generated this result transmitted ref erence range: 4.63 - 6 .08 M/L. The refe rence range was not u sed to interpret this result as normal/abnor mal. MCHC (test code = 786-4) 32.0 See_Comment L [A utomated message] The system [employer] generated this result transmitted ref erence range: [...] See_Comment [Aut omated message] 777-3) The system [employer] generated this result transmitted ref erence range: 150 - 45 0 K/CU MM. The referen ce range was not u sed to interpret this result as normal/abnor mal. MPV (test code = 11.2 fL 9.4-12.4 25534-7) nRBC (test code = 413) 1 See_Comment H [Aut omated message] The system [employer] generated this result transmitted ref erence range: [...] H [Aut omated message] 670) The system [employer] generated this result transmitted ref erence range: 1.78 - 5 .38 K/L. The refe rence range was not u sed to interpret this result as normal/abnor mal. # Lymphs (test code = 1.26 See_Comment L [Auto mated message] 414) The system [employer] generated this result transmitted ref erence range: 1.32 - 3 .57 K/L. The refe rence range was not u sed to interpret this result as normal/abnor mal. # Monos (test code = 0.76 See_Comment [Autom ated message] 415) The system [employer] generated this result transmitted ref erence range: 0.30 - 0 .82 K/L. The refe rence range was not u sed to interpret this result as normal/abnor mal. # Eos (test code = 416) 0.00 See_Comment L [Au tomated message] The system [employer] generated this result transmitted ref erence range: 0.04 - 0 .54 K/L. The refe rence range was not u sed to interpret this result as normal/abnor mal. # Baso (test code = 417) 0.03 See_Comment [A utomated message] The system [employer] generated this result transmitted ref erence range: 0.01 - 0 .08 K/L. The refe rence range was not u sed to interpret this result as normal/abnor mal. Immature 2 % 0-1 H Granulocytes-Relative (test code = 2801) Lab Interpretation (test Abnormal code = 03812-3) [facility] with platelet count + automated [id number] 14:17:00 Test Item Value Reference Range Interpretation Comments WBC (test code = 6690-2) 14.6 See_Comment H [A utomated message] The system [employer] generated this result transmitted ref erence range: 3.5 - 10 .5 K/L. The refe rence range was not u sed to interpret this result as normal/abnor mal. RBC (test code = 789-8) 4.03 See_Comment L [Au tomated message] The system [employer], generated this result transmitted ref erence range: 4.63 - 6 .08 M/L. The refe rence range was not u sed to interpret this result as normal/abnor mal. MCHC (test code = 786-4) 32.0 See_Comment L [A utomated message] The system [employer], generated this result transmitted ref erence range: [...] See_Comment [Aut omated message] 777-3) The system [employer] generated this result transmitted ref erence range: 150 - 45 0 K/CU MM. The referen ce range was not u sed to interpret this result as normal/abnor mal. MPV (test code = 11.2 fL 9.4-12.4 07317-9) nRBC (test code = 413) 1 See_Comment H [Aut omated message] The system [employer], generated this result transmitted ref erence range: [...] H [Aut omated message] 670) The system [employer] generated this result transmitted ref erence range: 1.78 - 5 .38 K/L. The refe rence range was not u sed to interpret this result as normal/abnor mal. # Lymphs (test code = 1.26 See_Comment L [Auto mated message] 414) The system [employer] generated this result transmitted ref erence range: 1.32 - 3 .57 K/L. The refe rence range was not u sed to interpret this result as normal/abnor mal. # Monos (test code = 0.76 See_Comment [Autom ated message] 415) The system [employer] generated this result transmitted ref erence range: 0.30 - 0 .82 K/L. The refe rence range was not u sed to interpret this result as normal/abnor mal. # Eos (test code = 416) 0.00 See_Comment L [Au tomated message] The system [employer] generated this result transmitted ref erence range: 0.04 - 0 .54 K/L. The refe rence range was not u sed to interpret this result as normal/abnor mal. # Baso (test code = 417) 0.03 See_Comment [A utomated message] The system [employer] generated this result transmitted ref erence range: 0.01 - 0 .08 K/L. The refe rence range was not u sed to interpret this result as normal/abnor mal. Immature 2 % 0-1 H Granulocytes-Relative (test code = 2801) Lab Interpretation (test Abnormal code = 55915-4) [facility] W/PLT COUNT & AUTO [id number] 14:17:00 Test Item Value Reference Range Interpretation [...] PERCENT (BEAKER) (test code = 2801) POC-Glucose [id number] 02:03:00 Test Item Value Reference Range Interpretation Comments POC-Glucose Meter (test 115 mg/dL 70-110 H : TE STED AT [facility] code = 1538) [address] [facility], [address]: Construction Safety Manager/Techni tressa ID = [id number] for Allen (contract )Nhi Lab Interpretation (test Abnormal code = 48096-9) [facility]-Glucose [id number] 02:03:00 Test Item Value Reference Range Interpretation Comments POC-Glucose Meter (test 115 mg/dL 70-110 H : TE STED AT [facility] code = 1538) [address] [place] [address], [address]70 [address]: Construction Safety Manager/Techni tressa ID = [id number] for Desin (contract ), Nhi Lab Interpretation (test Abnormal code = 97887-0) [facility]-Glucose [id number] 02:03:00 Test Item Value Reference Range Interpretation Comments POC-Glucose Meter (test 115 mg/dL 70-110 H : TE STED AT [facility] code = 1538) [address] [place] [address], [address]: Construction Safety Manager/Techni tressa ID = [id number] for Desin (contract ), Nhi Lab Interpretation (test Abnormal code = 24213-5) [facility]-Glucose [id number] 02:03:00 Test Item Value Reference Range Interpretation Comments POC-Glucose Meter (test 115 mg/dL 70-110 H : TE STED AT [facility] code = 1538) [address] [place] [address], [address]: Construction Safety Manager/Techni tressa ID = [id number] for Desin (contract ), Nhi Lab Interpretation (test Abnormal code = 04161-8) [facility]-Glucose [id number] 02:03:00 Test Item Value Reference Range Interpretation Comments POC-Glucose Meter (test 115 mg/dL 70-110 H : TE STED AT [facility] code = 1538) [address] [place] [address], [address]: Construction Safety Manager/Techni tressa ID = [id number] for Desin (contract ), Nhi Lab Interpretation (test Abnormal code = 65812-7) [facility]-Glucose [id number] 02:03:00 Test Item Value Reference Range Interpretation Comments POC-Glucose Meter (test 115 mg/dL 70-110 H : TE STED AT [facility] code = 1538) [address] [place] [address], [address]70 30: Construction Safety Manager/Techni tressa ID = [id number] for Desin (contract ), Nhi Lab Interpretation (test Abnormal code = 97397-2) [facility]-GLUCOSE [id number] 02:03:00 Test Item Value Reference Range Interpretation Comments POC-GLUCOSE METER 115 mg/dL 70-110 H : TESTED A T [facility] 6720 ([employer]) (test code = ROMINA Payne [facility], 1538) [address]: Construction Safety Manager/Techni tressa ID = [id number] for Virgen (contract)[employer] POCT-GLUCOSE [id number] 21:04:00 Test Item Value Reference Range Interpretation Comments POC-GLUCOSE METER 143 mg/dL 70-110 H : TESTED A T [facility] 6720 ([employer]) (test code = ROMINA Payne [facility], 1538) [address]: Construction Safety Manager/Techni tressa ID = [id number] for NEHA OLSON SARS-CoV2/Influenza/RSV RT-PCR (Symptomatic ONLY)2021-04-01 19:00:00 Test Item Value Reference Interpretation Comments Range SARS-COV2/RT-PCR Positive Negative AA The SARS-Co V-2 (test code = target nucleic 76060-2) acids are detec saulo in this specime [...] (test code = [place] re [address]07-4) not detected in this specimen. Influenza B RT-PCR Negative Negative The Flu B target (test code = [place] [address]-1) not detected in this specimen. RSV by RT-PCR (test Negative Negative The RSV target code = 30779-0) nucleic acid s are not detected in [...] the Act. Fact Sheet for Healthcare Providers:https://w ww.[employer].com.[employer]ia/Docu ments/Xpert%20Xpres s%20SARS%20CoV-2/Fa ct%20Sheets/302-390 2%17OBMV-OHK-2%20HE ALTHCARE%20PROVIDER S%20FACT%20SHEET.pd f Fact Sheet for Healthcare Patients:https://cady w.[employer]/Docum ents/Xpert%20Xpress %20SARS%20Cov-2/Fac t%20Sheets/302-3801 %84PIPT-FRZ-6%20PAT IENT%20FACT%20SHEET .pdf Lab Interpretation Abnormal (test code = 16318-3) [facility]ptomatic ONLY[facility] 2021-04-01 19:00:00 Test Item Value Reference Interpretation Comments Range SARS-COV2/RT-PCR Positive Negative AA The SARS-Co V-2 (test code = target nucleic 55408-3) acids are detec saulo in this specime [...] (test code = [place] [address]-1) not detected in this specimen. Influenza B RT-PCR Negative Negative The Flu B target (test code = [place] 75[address]-5) not detected in this specimen. RSV by RT-PCR (test Negative Negative The RSV target code = 82740-5) nucleic acid s are not detected in [...] the Act. Fact Sheet for Healthcare Providers:https://w [employer]/Docu ments/Xpert%20Xpres s%20SARS%20CoV-2/Fa ct%20Sheets/302-390 2%64JIIL-UFP-7%20HE ALTHCARE%20PROVIDER S%20FACT%20SHEET.pd f Fact Sheet for Healthcare Patients:https://cady [employer]/Docum ents/Xpert%20Xpress %20SARS%20Cov-2/Fac t%20Sheets/302-3801 %96CRKZ-KIX-0%20PAT IENT%20FACT%20SHEET .pdf Lab Interpretation Abnormal (test code = 49796-1) [facility]Symptomatic ONLY) 2021-04-01 19:00:00 Test Item Value Reference Interpretation Comments Range SARS-COV2/RT-PCR Positive Negative AA The SARS-Co V-2 (test code = target nucleic 47369-7) acids are detec saulo in this specime [...] (test code = [place] [address]-5) not detected in this specimen. Influenza B RT-PCR Negative Negative The Flu B target (test code = [place] [address]-6) not detected in this specimen. RSV by RT-PCR (test Negative Negative The RSV target code = 44159-7) nucleic acid s are not detected in [...] the Act. Fact Sheet for Healthcare Providers:https://w [employer].com/Docu ments/Xpert%20Xpres s%20SARS%20CoV-2/Fa ct%20Sheets/302-390 2%79DQHL-OJU-7%20HE ALTHCARE%20PROVIDER S%20FACT%20SHEET.pd f Fact Sheet for Healthcare Patients:https://cady [employer]/Docum ents/Xpert%20Xpress %20SARS%20Cov-2/Fac t%20Sheets/302-3801 %81WTEI-ULR-7%20PAT IENT%20FACT%20SHEET .pdf Lab Interpretation Abnormal (test code = 26666-3) [facility] (Symptomatic ONLY) 2021-04-01 19:00:00 Test Item Value Reference Interpretation Comments Range SARS-COV2/RT-PCR Positive Negative AA The SARS-Co V-2 (test code = target nucleic 29563-8) acids are detec saulo in this specime [...] (test code = [place] 58149-2) not detected in this specimen. Influenza B RT-PCR Negative Negative The Flu B target (test code = nucleic acids a re 27720-7) not detected in this specimen. RSV by RT-PCR (test Negative Negative The RSV target code = 26543-4) nucleic acid s are not detected in [...] the Act. Fact Sheet for Healthcare Providers:https://loraine Laimoon.com/Docu ments/Xpert%20Xpres s%20SARS%20CoV-2/Fa ct%20Sheets/302-390 2%42DGEJ-OWC-4%20HE ALTHCARE%20PROVIDER S%20FACT%20SHEET.pd f Fact Sheet for Healthcare Patients:https://cady [employer]/Docum ents/Xpert%20Xpress %20SARS%20Cov-2/Fac t%20Sheets/302-3801 %12BGPM-YLN-3%20PAT IENT%20FACT%20SHEET .pdf Lab Interpretation Abnormal (test code = 96456-1) [facility] (Symptomatic ONLY) 2021-04-01 19:00:00 Test Item Value Reference Interpretation Comments Range SARS-COV2/RT-PCR Positive Negative AA The SARS-Co V-2 (test code = target nucleic 30768-5) acids are detec saulo in this specime [...] (test code = nucleic [place] re 23692-5) not detected in this specimen. Influenza B RT-PCR Negative Negative The Flu B target (test code = [place] 46906-0) not detected in this specimen. RSV by RT-PCR (test Negative Negative The RSV target code = 99526-7) nucleic acid s are not detected in [...] the Act. Fact Sheet for Healthcare Providers:https://w L[employer]oon.com/Docu ments/Xpert%20Xpres s%20SARS%20CoV-2/Fa ct%20Sheets/302-390 2%55MNOV-TXR-7%20HE ALTHCARE%20PROVIDER S%20FACT%20SHEET.pd f Fact Sheet for Healthcare Patients:https://DA [employer]/Docum ents/Xpert%20Xpress %20SARS%20Cov-2/Fac t%20Sheets/302-3801 %52ZPRS-FFZ-6%20PAT IENT%20FACT%20SHEET .pdf Lab Interpretation Abnormal (test code = 05204-4) [facility] (Symptomatic ONLY) 2021-04-01 19:00:00 Test Item Value Reference Interpretation Comments Range SARS-COV2/RT-PCR Positive Negative AA The SARS-Co V-2 (test code = target nucleic 44417-0) acids are detec saulo in this specime [...] (test code = [place] [address]98-9) not detected in this specimen. Influenza B RT-PCR Negative Negative The Flu B target (test code = [place] re 94544-6) not detected in this specimen. RSV by RT-PCR (test Negative Negative The RSV target code = 38855-8) nucleic acid s are not detected in [...] SARS-CoV-2/Flu/RSV by their healthcare provider. Results from [facility] Xpert Xpress SARS-CoV-2/Flu/RSV test should be [...] the Act. Fact Sheet for Healthcare Providers:https://w Laimoon.com/Docu ments/Xpert%20Xpres s%20SARS%20CoV-2/Fa ct%20Sheets/302-390 2%47BJNG-AXP-3%20HE ALTHCARE%20PROVIDER S%20FACT%20SHEET.pd f Fact Sheet for Healthcare Patients:https://DA [employer]/Docum ents/Xpert%20Xpress %20SARS%20Cov-2/Fac t%20Sheets/302-3801 %25WGNE-HCQ-2%20PAT IENT%20FACT%20SHEET .pdf Lab Interpretation Abnormal (test code = 05960-6) [facility]V [id number] 19:00:00 Test Item Value Reference Range Interpretation Comments SARS-COV2/RT-PCR Positive Negative AA The SARS-Co V-2 target (test code = nucleic acids a re 8076187) detected in thi s specimen. The p resence SARS-CoV-2 nucl eic acids cannot rule out [...] individuals teressa pected of COVID-19 by the [facility]. Results from Xpert Xpress SARS-CoV -2 test [...] RSV RT-PCR (test Negative Negative The RSV tar get nucleic code = 3302095) acids are no t detected in this [...] below the analytical limit of detection in thisspecimen.This Xpert Xpress SARS-CoV-2/Flu/RSV test is a rapid, real-time RT-PCR test intended for the qualitative detection of nucleic acid from Xpert Xpress SARS-CoV-2/Flu/RSV in a nasopharyngeal swabspecimen collected from individuals suspected of Xpert Xpress SARS-CoV-2/Flu/RSV by their healthcareprovider. Results from [facility] Xpert Xpress SARS-CoV-2/Flu/RSV test should be correlated with the clinical history, epidemiological data, and other data available to the clinician evaluating the patient. Viral nucleic acid may persist in vivo, independent of virus viability. Detection of analyte target(s)does not imply that the corresponding virus(es) are infectious or are the causative agents for clinical symptoms.This test has not been Food and Drug Administration (FDA) cleared or approved and has been authorized by FDA under an Emergency Use Authorization (EUA). This EUA will be effective until thedeclaration that circumstances exist justifying the authorization of the emergency use of in vitro diagnostic tests for detection and/or diagnosis of COVID-19 is terminated under Section 564(b)(2) of the Act or the EUA is revoked under Section 564(g) of the Act.Fact Sheet for Healthcare Providers:https ://www.[employer]/Documents/Xpert%20Xpress%20SARS%20CoV-2/Fact%20Sheets/302-390 2%31QLZE-MSI-7%20HEALTHCARE%20PROVIDERS%20FACT%20SHEET.pdfFact Sheet for Healthcare Patients:https://www.[employer]/Docum ents/Xpert%20Xpress%20SARS%20Cov-2/Fact%20Sheets/302-3801%41DALG-WQF-0%20PATIENT %20FACT%20SHEET.pdfUrinalysis w/Microscopic + Reflex to [id number] 17:43:00 Test Item Value Reference Range Interpretation Comments Color, UA (test code Yellow = 5778-6) Clarity, UA (test Hazy code = 5767-9) Specific [place], UA 1.031 1.001-1.035 (test code = 5811-5) pH, UA (test code = 6.0 5.0-8.0 5803-2) Protein, UA (test 70 mg/dL Negative A code = 06171-4) Glucose, UA (test Negative Negative code = 365) Ketones, UA (test Trace Negative A code = 2514-8) Bilirubin, UA (test Negative Negative code = 24973-3) Blood, UA (test code Moderate Negative A = 30444-1) Nitrite, UA (test Negative Negative code = 5802-4) Leukocytes, UA (test Small Negative A code = 5799-2) Urobilinogen, UA 0.2 mg/dL 0.2-1 (test code = 87842-2) RBC, UA (test code = 27 See_Comment [Autom ated 39228-8) message] The system which generated this result [...] Bacteria, UA (test None Seen code = 61645-6) Mucus (test code = Rare 8247-9) Squam Epithel, UA <1 See_Comment [Automate d (test code = 87428-6) messag e] The system which generated this result transmitted reference range : /HPF. The reference range was not used to interpret this result as normal/abnormal . Hyaline Casts, UA 3 See_Comment [Automate d (test code = 01947-8) messag e] The system which generated this result transmitted reference range : /LPF. The reference range was not used to interpret this result as normal/abnormal . Crystals, Urine (test None Seen code = 89076-3) Yeast (test code = Occasional 73718-7) Specimen Source (test code = 2795) STACY (test code = STACY) Construction Safety Manager ID - [auto]Construction Safety Manager ID - tech Lab Interpretation Abnormal (test code = 90914-6) [facility] Culture 2021-04-01 17:43:00 Test Item Value Reference Range Interpretation Comments Color, UA (test code Yellow = 5778-6) Clarity, UA (test Hazy code = 5767-9) Specific [place], UA 1.031 1.001-1.035 (test code = 5811-5) pH, UA (test code = 6.0 5.0-8.0 5803-2) Protein, UA (test 70 mg/dL Negative A code = 64593-1) Glucose, UA (test Negative Negative code = 365) Ketones, UA (test Trace Negative A code = 2514-8) Bilirubin, UA (test Negative Negative code = 11020-5) Blood, UA (test code Moderate Negative A = 99487-9) Nitrite, UA (test Negative Negative code = 5802-4) Leukocytes, UA (test Small Negative A code = 5799-2) Urobilinogen, UA 0.2 mg/dL 0.2-1.0 (test code = 13347-5) RBC, UA (test code = 27 See_Comment [Autom ated 36709-8) message] The system which generated this result [...] Bacteria, UA (test None Seen code = 88299-3) Mucus (test code = Rare 8247-9) Squam Epithel, UA <1 See_Comment [Automate d (test code = 53828-7) messag e] The system which generated this result transmitted reference range : /HPF. The reference range was not used to interpret this result as normal/abnormal . Hyaline Casts, UA 3 See_Comment [Automate d (test code = 34793-8) messag e] The system which generated this result transmitted reference range : /LPF. The reference range was not used to interpret this result as normal/abnormal . Crystals, Urine (test None Seen code = 73807-7) Yeast (test code = Occasional 94392-6) Specimen Source (test code = 2795) STACY (test code = STACY) Construction Safety Manager ID - [auto]Construction Safety Manager ID - tech Lab Interpretation Abnormal (test code = 68956-1) [facility] Reflex to Culture 2021-04-01 17:43:00 Test Item Value Reference Range Interpretation Comments Color, UA (test code Yellow = 5778-6) Clarity, UA (test Hazy code = 5767-9) Specific [place], UA 1.031 1.001-1.035 (test code = 5811-5) pH, UA (test code = 6.0 5.0-8.0 5803-2) Protein, UA (test 70 mg/dL Negative A code = 52008-9) Glucose, UA (test Negative Negative code = 365) Ketones, UA (test Trace Negative A code = 2514-8) Bilirubin, UA (test Negative Negative code = 75126-7) Blood, UA (test code Moderate Negative A = 04002-6) Nitrite, UA (test Negative Negative code = 5802-4) Leukocytes, UA (test Small Negative A code = 5799-2) Urobilinogen, UA 0.2 mg/dL 0.2-1.0 (test code = 03637-7) RBC, UA (test code = 27 See_Comment [Autom ated 62163-6) message] The system which generated this result [...] Bacteria, UA (test None Seen code = 53610-9) Mucus (test code = Rare 8247-9) Squam Epithel, UA <1 See_Comment [Automate d (test code = 44222-8) messag e] The system which generated this result transmitted reference range : /HPF. The reference range was not used to interpret this result as normal/abnormal . Hyaline Casts, UA 3 See_Comment [Automate d (test code = 75910-2) messag e] The system which generated this result transmitted reference range : /LPF. The reference range was not used to interpret this result as normal/abnormal . Crystals, Urine (test None Seen code = 45394-4) Yeast (test code = Occasional 91146-4) Specimen Source (test code = 2795) STACY (test code = STACY) Construction Safety Manager ID - [auto]Construction Safety Manager ID - tech Lab Interpretation Abnormal (test code = 54648-5) [facility] Reflex to Culture 2021-04-01 17:43:00 Test Item Value Reference Range Interpretation Comments Color, UA (test code Yellow = 5778-6) Clarity, UA (test Hazy code = 5767-9) Specific [place], UA 1.031 1.001-1.035 (test code = 5811-5) pH, UA (test code = 6.0 5.0-8.0 5803-2) Protein, UA (test 70 mg/dL Negative A code = 10948-9) Glucose, UA (test Negative Negative code = 365) Ketones, UA (test Trace Negative A code = 2514-8) Bilirubin, UA (test Negative Negative code = 00710-0) Blood, UA (test code Moderate Negative A = 43058-3) Nitrite, UA (test Negative Negative code = 5802-4) Leukocytes, UA (test Small Negative A code = 5799-2) Urobilinogen, UA 0.2 mg/dL 0.2-1.0 (test code = 56898-8) RBC, UA (test code = 27 See_Comment [Autom ated 98659-2) message] The system which generated this result [...] Bacteria, UA (test None Seen code = 49890-2) Mucus (test code = Rare 8247-9) Squam Epithel, UA <1 See_Comment [Automate d (test code = 69130-6) messag e] The system which generated this result transmitted reference range : /HPF. The reference range was not used to interpret this result as normal/abnormal . Hyaline Casts, UA 3 See_Comment [Automate d (test code = 33223-1) messag e] The system which generated this result transmitted reference range : /LPF. The reference range was not used to interpret this result as normal/abnormal . Crystals, Urine (test None Seen code = 12964-6) Yeast (test code = Occasional 24978-8) Specimen Source (test code = 2795) STACY (test code = STACY) Construction Safety Manager ID - [auto]Construction Safety Manager ID - tech Lab Interpretation Abnormal (test code = 61657-1) [facility] + Reflex to Culture 2021-04-01 17:43:00 Test Item Value Reference Range Interpretation Comments Color, UA (test code Yellow = 5778-6) Clarity, UA (test Hazy code = 5767-9) Specific [place], UA 1.031 1.001-1.035 (test code = 5811-5) pH, UA (test code = 6.0 5.0-8.0 5803-2) Protein, UA (test 70 mg/dL Negative A code = 35839-7) Glucose, UA (test Negative Negative code = 365) Ketones, UA (test Trace Negative A code = 2514-8) Bilirubin, UA (test Negative Negative code = 67031-1) Blood, UA (test code Moderate Negative A = 80955-1) Nitrite, UA (test Negative Negative code = 5802-4) Leukocytes, UA (test Small Negative A code = 5799-2) Urobilinogen, UA 0.2 mg/dL 0.2-1.0 (test code = 77106-7) RBC, UA (test code = 27 See_Comment [Autom ated 97063-7) message] The system which generated this result [...] Bacteria, UA (test None Seen code = 12913-7) Mucus (test code = Rare 8247-9) Squam Epithel, UA <1 See_Comment [Automate d (test code = 59005-8) messag e] The system which generated this result transmitted reference range : /HPF. The reference range was not used to interpret this result as normal/abnormal . Hyaline Casts, UA 3 See_Comment [Automate d (test code = 71921-1) messag e] The system which generated this result transmitted reference range : /LPF. The reference range was not used to interpret this result as normal/abnormal . Crystals, Urine (test None Seen code = 22250-5) Yeast (test code = Occasional 02827-7) Specimen Source (test code = 2795) STACY (test code = STACY) Construction Safety Manager ID - [auto]Construction Safety Manager ID - tech Lab Interpretation Abnormal (test code = 20494-1) [facility] + Reflex to Culture 2021-04-01 17:43:00 Test Item Value Reference Range Interpretation Comments Color, UA (test code Yellow = 5778-6) Clarity, UA (test Hazy code = 5767-9) Specific [place], UA 1.031 1.001-1.035 (test code = 5811-5) pH, UA (test code = 6.0 5.0-8.0 5803-2) Protein, UA (test 70 mg/dL Negative A code = 73064-9) Glucose, UA (test Negative Negative code = 365) Ketones, UA (test Trace Negative A code = 2514-8) Bilirubin, UA (test Negative Negative code = 20506-8) Blood, UA (test code Moderate Negative A = 08179-8) Nitrite, UA (test Negative Negative code = 5802-4) Leukocytes, UA (test Small Negative A code = 5799-2) Urobilinogen, UA 0.2 mg/dL 0.2-1.0 (test code = 38256-0) RBC, UA (test code = 27 See_Comment [Autom ated 75927-0) message] The system which generated this result [...] Bacteria, UA (test None Seen code = 88584-0) Mucus (test code = Rare 8247-9) Squam Epithel, UA <1 See_Comment [Automate d (test code = 78179-4) messag e] The system which generated this result transmitted reference range : /HPF. The reference range was not used to interpret this result as normal/abnormal . Hyaline Casts, UA 3 See_Comment [Automate d (test code = 28870-4) messag e] The system which generated this result transmitted reference range : /LPF. The reference range was not used to interpret this result as normal/abnormal . Crystals, Urine (test None Seen code = 65855-2) Yeast (test code = Occasional 75502-8) Specimen Source (test code = 2795) STACY (test code = STACY) Construction Safety Manager ID - [auto]Construction Safety Manager ID - tech Lab Interpretation Abnormal (test code = 09785-0) [facility]LEX URINE [id number] 17:43:00 Test Item Value Reference Range Interpretation [...] 1585) Occasional SOURCE(BEAKER) (test code = 2795) Construction Safety Manager ID - [auto]Construction Safety Manager ID - techBasic Metabolic [id number] 17:22:00 Test Item Value Reference Range Interpretation Comments Sodium (test code = 143 meq/L 691-262 9306-2) Potassium (test code = 3.3 meq/L 3.5-5.1 L 2823-3) Chloride (test code = 117 meq/L 98-107 H 2075-0) CO2 (test code = 18 meq/L 22-29 L 2028-9) BUN (test code = 44 mg/dL 7-21 H 3094-0) Creatinine (test code 0.87 mg/dL 0.57-1.25 = 2160-0) Glucose (test code = 170 mg/dL 70-105 H 2345-7) Calcium (test code = 7.4 mg/dL 8.4-10.2 L 57147-1) EGFR (test code = 85 mL/min/1.73 [place] [address]-6) NOT ACCURATE CREATININE CLEARANCE IN PREDICTING GLOMERULAR FILTRATION RATE . ESTIMATED GFR I S NOT APPLICABLE FOR DIALYSIS PATIENTS. STACY (test code = STACY) Construction Safety Manager ID - BS Lab Interpretation Abnormal (test code = 56852-7) [facility] Metabolic [id number] 17:22:00 Test Item Value Reference Range Interpretation Comments Sodium (test code = 143 meq/L 967-974 6447-2) Potassium (test code = 3.3 meq/L 3.5-5.1 L 2823-3) Chloride (test code = 117 meq/L 98-107 H 2075-0) CO2 (test code = 18 meq/L 22-29 L 2028-9) BUN (test code = 44 mg/dL 7-21 H 3094-0) Creatinine (test code 0.87 mg/dL 0.57-1.25 = 2160-0) Glucose (test code = 170 mg/dL 70-105 H 2345-7) Calcium (test code = 7.4 mg/dL 8.4-10.2 L 35876-6) EGFR (test code = 85 mL/min/1.73 [place] [address]-7) NOT ACCURATE CREATININE CLEARANCE IN PREDICTING GLOMERULAR FILTRATION RATE . ESTIMATED GFR I S NOT APPLICABLE FOR DIALYSIS PATIENTS. STACY (test code = STACY) Construction Safety Manager ID - BS Lab Interpretation Abnormal (test code = 08705-6) [facility] Metabolic [id number] 17:22:00 Test Item Value Reference Range Interpretation Comments Sodium (test code = 143 meq/L 316-897 5836-2) Potassium (test code = 3.3 meq/L 3.5-5.1 L 2823-3) Chloride (test code = 117 meq/L 98-107 H 2075-0) CO2 (test code = 18 meq/L 22-29 L 2028-9) BUN (test code = 44 mg/dL 7-21 H 3094-0) Creatinine (test code 0.87 mg/dL 0.57-1.25 = 2160-0) Glucose (test code = 170 mg/dL 70-105 H 2345-7) Calcium (test code = 7.4 mg/dL 8.4-10.2 L 90697-5) EGFR (test code = 85 mL/min/1.[place] [address]-5) NOT ACCURATE CREATININE CLEARANCE IN PREDICTING GLOMERULAR FILTRATION RATE . ESTIMATED GFR I S NOT APPLICABLE FOR DIALYSIS PATIENTS. STACY (test code = STACY) Construction Safety Manager ID - BS Lab Interpretation Abnormal (test code = 89594-1) [facility] Metabolic [id number] 17:22:00 Test Item Value Reference Range Interpretation Comments Sodium (test code = 143 meq/L 796-112 5483-2) Potassium (test code = 3.3 meq/L 3.5-5.1 L 2823-3) Chloride (test code = 117 meq/L 98-107 H 2075-0) CO2 (test code = 18 meq/L 22-29 L 2028-9) BUN (test code = 44 mg/dL 7-21 H 3094-0) Creatinine (test code 0.87 mg/dL 0.57-1.25 = 2160-0) Glucose (test code = 170 mg/dL 70-105 H 2345-7) Calcium (test code = 7.4 mg/dL 8.4-10.2 L 48202-9) EGFR (test code = 85 mL/min/1.[place] [address]-9) NOT ACCURATE CREATININE CLEARANCE IN PREDICTING GLOMERULAR FILTRATION RATE . ESTIMATED GFR I S NOT APPLICABLE FOR DIALYSIS PATIENTS. STACY (test code = STACY) Construction Safety Manager ID - BS Lab Interpretation Abnormal (test code = 68197-1) [facility] Metabolic [id number] 17:22:00 Test Item Value Reference Range Interpretation Comments Sodium (test code = 143 meq/L 472-339 7521-2) Potassium (test code = 3.3 meq/L 3.5-5.1 L 2823-3) Chloride (test code = 117 meq/L 98-107 H 2075-0) CO2 (test code = 18 meq/L 22-29 L 2028-9) BUN (test code = 44 mg/dL 7-21 H 3094-0) Creatinine (test code 0.87 mg/dL 0.57-1.25 = 2160-0) Glucose (test code = 170 mg/dL 70-105 H 2345-7) Calcium (test code = 7.4 mg/dL 8.4-10.2 L 22142-5) EGFR (test code = 85 mL/min/1.[place] [address]-4) NOT ACCURATE CREATININE CLEARANCE IN PREDICTING GLOMERULAR FILTRATION RATE . ESTIMATED GFR I S NOT APPLICABLE FOR DIALYSIS PATIENTS. STACY (test code = STACY) Construction Safety Manager ID - BS Lab Interpretation Abnormal (test code = 34733-5) [facility] Metabolic [id number] 17:22:00 Test Item Value Reference Range Interpretation Comments Sodium (test code = 143 meq/L 396-144 7817-2) Potassium (test code = 3.3 meq/L 3.5-5.1 L 2823-3) Chloride (test code = 117 meq/L 98-107 H 2075-0) CO2 (test code = 18 meq/L 22-29 L 2028-9) BUN (test code = 44 mg/dL 7-21 H 3094-0) Creatinine (test code 0.87 mg/dL 0.57-1.25 = 2160-0) Glucose (test code = 170 mg/dL 70-105 H 2345-7) Calcium (test code = 7.4 mg/dL 8.4-10.2 L 76363-1) EGFR (test code = 85 mL/min/1.[place] [address]-1) NOT ACCURATE CREATININE CLEARANCE IN PREDICTING GLOMERULAR FILTRATION RATE . ESTIMATED GFR I S NOT APPLICABLE FOR DIALYSIS PATIENTS. STACY (test code = STACY) Construction Safety Manager ID - BS Lab Interpretation Abnormal (test code = 22711-0) [facility] CenterBASIC METABOLIC [id number] 17:22:00 Test Item Value Reference Range Interpretation [...] S NOT APPLICABLE FOR DIALYSIS PATIEN TS. Construction Safety Manager ID - BSPOCT-GLUCOSE [id number] 17:03:00 Test Item Value Reference Range Interpretation Comments POC-GLUCOSE METER 161 mg/dL 70-110 H : TESTED A T [facility] 6720 (BEAKER) (test code = ROMINA Payne [facility], 1538) [address]1986: Construction Safety Manager/Techni tressa ID = [id number] for ASHLEY MATA POCT-GLUCOSE [id number] 11:55:00 Test Item Value Reference Range Interpretation Comments POC-GLUCOSE METER 171 mg/dL 70-110 H : TESTED A T [facility] 6720 (BEAKER) (test code = [facility], 1538) 31124: Construction Safety Manager/Techni tressa ID = [id number] for ASHLEY MATA Vancomycin level, [id number] 11:02:00 Test Item Value Reference Range Interpretation Comments Vancomycin Tr (test code = 19.1 ug/mL 05-142-3) STACY (test code = STACY) Construction Safety Manager ID - WINNIE C Lab Interpretation (test Normal code = 55630-3) [facility] CenterVanva hospitalycin level, [id number] 11:02:00 Test Item Value Reference Range Interpretation Comments Vancomycin Tr (test code = 19.1 ug/mL 10.0-20.0 4092-3) STACY (test code = STACY) Construction Safety Manager ID - WINNIE C Lab Interpretation (test Normal code = 20446-7) [facility] [id number] 11:02:00 Test Item Value Reference Range Interpretation Comments Vancomycin Tr (test code = 19.1 ug/mL 10.0-20.0 4092-3) STACY (test code = STACY) Construction Safety Manager ID - WINNIE C Lab Interpretation (test Normal code = 80340-1) [facility], [id number] 11:02:00 Test Item Value Reference Range Interpretation Comments Vancomycin Tr (test code = 19.1 ug/mL 10.0-20.0 4092-3) STACY (test code = STACY) Construction Safety Manager ID - WINNIE C Lab Interpretation (test Normal code = 92786-0) [facility], [id number] 11:02:00 Test Item Value Reference Range Interpretation Comments Vancomycin Tr (test code = 19.1 ug/mL 10.0-20.0 4092-3) STACY (test code = STACY) Construction Safety Manager ID - WINNIE C Lab Interpretation (test Normal code = 54504-5) [facility], [id number] 11:02:00 Test Item Value Reference Range Interpretation Comments Vancomycin Tr (test code = 19.1 ug/mL 10.0-20.0 4092-3) STACY (test code = STACY) Construction Safety Manager ID - WINNIE C Lab Interpretation (test Normal code = 41617-2) [facility], [id number] 11:02:00 Test Item Value Reference Range Interpretation Comments VANCOMYCIN TROUGH (BEAKER) (test 19.1 ug/mL 10.0-20.0 code = 522) Construction Safety Manager ID - WINNIE CCreatine Kinase (CK)2021-04-01 06:28:00 Test Item Value Reference Range Interpretation Comments Total CK (test code = 19 U/L 29-200 L 2157-6) STACY (test code = STACY) Construction Safety Manager ID - PIAYA L Lab Interpretation (test Abnormal code = 97193-6) [facility] CenterCreatine Kinase (CK)2021-04-01 06:28:00 Test Item Value Reference Range Interpretation Comments Total CK (test code = 19 U/L 29-200 L 2157-6) STACY (test code = STACY) Construction Safety Manager ID - PIAYA L Lab Interpretation (test Abnormal code = 58222-6) [facility] CenterCreatine Kinase (CK)2021-04-01 06:28:00 Test Item Value Reference Range Interpretation Comments Total CK (test code = 19 U/L 29-200 L 2157-6) STACY (test code = STACY) Construction Safety Manager ID - PIAYA L Lab Interpretation (test Abnormal code = 92463-5) [facility] CenterCreatine Kinase (CK)2021-04-01 06:28:00 Test Item Value Reference Range Interpretation Comments Total CK (test code = 19 U/L 29-200 L 2157-6) STACY (test code = STACY) Construction Safety Manager ID - PIAYA L Lab Interpretation (test Abnormal code = 38845-2) [facility] CenterCreatine Kinase (CK)2021-04-01 06:28:00 Test Item Value Reference Range Interpretation Comments Total CK (test code = 19 U/L 29-200 L 2157-6) STACY (test code = STACY) Construction Safety Manager ID - PIAYA L Lab Interpretation (test Abnormal code = 22716-6) [facility] CenterCreatine Kinase (CK)2021-04-01 06:28:00 Test Item Value Reference Range Interpretation Comments Total CK (test code = 19 U/L 29-200 L 2157-6) STACY (test code = STACY) Construction Safety Manager ID - PIAYA L Lab Interpretation (test Abnormal code = 61829-6) [facility] CenterBASIC METABOLIC [id number] 06:28:00 Test Item Value Reference Range Interpretation [...] S NOT APPLICABLE FOR DIALYSIS PATIEN TS. Construction Safety Manager ID - MERT LCREATINE KINASE (CK)2021-04-01 06:28:00 Test Item Value Reference Range Interpretation Comments CREATINE KINASE TOTAL (BEAKER) (test 19 U/L 29-200 L code = 380) Construction Safety Manager ID - MERT LHepatic function [id number] 06:09:00 Test Item Value Reference Range Interpretation [...] 2.1 g/dL 3.5-5 L Specime n slightly 04749-8) hemolyzed Total Bilirubin (test 0.4 mg/dL 0.2-1.2 [...] 1742-6) hemolyzed STACY (test code = STACY) Construction Safety Manager ID - MERT L Lab Interpretation Abnormal (test code = 71633-0) [facility] CenterPhosphorus2021-09-07 06:09:00 Test Item Value Reference Range Interpretation Comments Phosphorus (test code 2.9 mg/dL 2.3-4.7 Specim en = 2777-1) slightly hemolyzed STACY (test code = STACY) Construction Safety Manager ID - PIAYA L Lab Interpretation Normal (test code = 61104-1) [facility] CenterHepatic function [id number] 06:09:00 Test Item Value Reference Range Interpretation [...] 2.1 g/dL 3.5-5.0 L Specime n slightly 00136-4) hemolyzed Total Bilirubin (test 0.4 mg/dL 0.2-1.2 [...] 1742-6) hemolyzed STACY (test code = STACY) Construction Safety Manager ID - PIAYA L Lab Interpretation Abnormal (test code = 51820-9) [facility] CenterPhosphorus2021-09-07 06:09:00 Test Item Value Reference Range Interpretation Comments Phosphorus (test code 2.9 mg/dL 2.3-4.7 Specim en = 2777-1) slightly hemolyzed STACY (test code = STACY) Construction Safety Manager ID - PIAYA L Lab Interpretation Normal (test code = 79523-9) [facility] CenterHepatic function [id number] 06:09:00 Test Item Value Reference Range Interpretation [...] 2.1 g/dL 3.5-5.0 L Specime n slightly 11507-1) hemolyzed Total Bilirubin (test 0.4 mg/dL 0.2-1.2 [...] 1742-6) hemolyzed STACY (test code = STACY) Construction Safety Manager ID - PIAYA L Lab Interpretation Abnormal (test code = 94478-9) [facility] CenterPhosphorus2021-09-07 06:09:00 Test Item Value Reference Range Interpretation Comments Phosphorus (test code 2.9 mg/dL 2.3-4.7 Specim en = 2777-1) slightly hemolyzed STACY (test code = STACY) Construction Safety Manager ID - PIAYA L Lab Interpretation Normal (test code = 25467-0) [facility] CenterHepatic function [id number] 06:09:00 Test Item Value Reference Range Interpretation [...] 2.1 g/dL 3.5-5.0 L Specime n slightly 62320-6) hemolyzed Total Bilirubin (test 0.4 mg/dL 0.2-1.2 [...] 1742-6) hemolyzed STACY (test code = STACY) Construction Safety Manager ID - PIAYA L Lab Interpretation Abnormal (test code = 06022-5) [facility] CenterPhosphorus2021-09-07 06:09:00 Test Item Value Reference Range Interpretation Comments Phosphorus (test code 2.9 mg/dL 2.3-4.7 Specim en = 2777-1) slightly hemolyzed STACY (test code = STACY) Construction Safety Manager ID - PIAYA L Lab Interpretation Normal (test code = 80612-7) [facility] CenterHepatic function [id number] 06:09:00 Test Item Value Reference Range Interpretation [...] 2.1 g/dL 3.5-5.0 L Specime n slightly 84223-8) hemolyzed Total Bilirubin (test 0.4 mg/dL 0.2-1.2 [...] 1742-6) hemolyzed STACY (test code = STACY) Construction Safety Manager ID - PIAYA L Lab Interpretation Abnormal (test code = 80494-4) [facility] CenterPhosphorus2021-[facility]-07 06:09:00 Test Item Value Reference Range Interpretation Comments Phosphorus (test code 2.9 mg/dL 2.3-4.7 Specim en = 2777-1) slightly hemolyzed STACY (test code = STACY) Construction Safety Manager ID - PIAYA L Lab Interpretation Normal (test code = 68334-5) [facility] CenterHepatic function [id number] 06:09:00 Test Item Value Reference Range Interpretation [...] 2.1 g/dL 3.5-5.0 L Specime n slightly 21415-5) hemolyzed Total Bilirubin (test 0.4 mg/dL 0.2-1.2 [...] 1742-6) hemolyzed STACY (test code = STACY) Construction Safety Manager ID - PIAYA L Lab Interpretation Abnormal (test code = 79222-8) [facility] CenterPhosphorus2021-09-07 06:09:00 Test Item Value Reference Range Interpretation Comments Phosphorus (test code 2.9 mg/dL 2.3-4.7 Specim en = 2777-1) slightly hemolyzed STACY (test code = STACY) Construction Safety Manager ID - PIAYA L Lab Interpretation Normal (test code = 70652-2) [facility] CenterMAGNESIUM2021-09-07 06:09:00 Test Item Value Reference Range Interpretation Comments MAGNESIUM (BEAKER) 1.5 mg/dL 1.6-2.6 L Specimen slightly (test code = 627) hemolyzed Construction Safety Manager ID - PIAYA [id number] 06:09:00 Test Item Value Reference Range Interpretation Comments PHOSPHORUS (BEAKER) 2.9 mg/dL 2.3-4.7 Specimen slightly (test code = 604) hemolyzed Construction Safety Manager ID - PIAYA LHEPATIC FUNCTION [id number] 06:09:00 Test Item Value Reference Range Interpretation [...] Specimen slightly (test code = 347) hemolyzed Construction Safety Manager ID - PIAYA LC-REACTIVE [id number] 06:09:00 Test Item Value Reference Range Interpretation Comments C-REACTIVE PROTEIN (BEAKER) (test 2.48 mg/dL 0.00-0.50 H code = 676) Construction Safety Manager ID - PIAYA LCalcium, [id number] 06:05:00 Test Item Value Reference Range Interpretation Comments Calcium, Ion (test code = 1993-09) 1.11 mmol/L 1.12-1.27 L pH, Blood (test code = 45959-3) 7.37 Lab Interpretation (test code = Abnormal 91670-4) [facility] CenterCalcium, [id number] 06:05:00 Test Item Value Reference Range Interpretation Comments Calcium, Ion (test code = 1993-09) 1.11 mmol/L 1.12-1.27 L pH, Blood (test code = 02898-1) 7.37 Lab Interpretation (test code = Abnormal 45164-0) [facility] CenterCalcium, [id number] 06:05:00 Test Item Value Reference Range Interpretation Comments Calcium, Ion (test code = 1993-09) 1.11 mmol/L 1.12-1.27 L pH, Blood (test code = 04718-4) 7.37 Lab Interpretation (test code = Abnormal 16401-5) [facility] CenterCalcium, [id number] 06:05:00 Test Item Value Reference Range Interpretation Comments Calcium, Ion (test code = 1993-09) 1.11 mmol/L 1.12-1.27 L pH, Blood (test code = 85348-8) 7.37 Lab Interpretation (test code = Abnormal 17391-9) [facility] CenterCalcium, [id number] 06:05:00 Test Item Value Reference Range Interpretation Comments Calcium, Ion (test code = 1993-09) 1.11 mmol/L 1.12-1.27 L pH, Blood (test code = 92634-5) 7.37 Lab Interpretation (test code = Abnormal 19367-5) [facility] CenterCalcium, [id number] 06:05:00 Test Item Value Reference Range Interpretation Comments Calcium, Ion (test code = 1993-09) 1.11 mmol/L 1.12-1.27 L pH, Blood (test code = 47609-2) 7.37 Lab Interpretation (test code = Abnormal 04906-6) [facility] CenterCALCIUM, [id number] 06:05:00 Test Item Value Reference Range Interpretation Comments CALCIUM IONIZED (BEAKER) (test 1.11 mmol/L 1.12-1.27 L code = 698) PH, BLOOD (BEAKER) (test code = 7.37 1810) POCT-GLUCOSE [id number] 05:57:00 Test Item Value Reference Range Interpretation Comments POC-GLUCOSE METER 134 mg/dL 70-110 H : TESTED A T [facility] 67[address] (BEAKER) (test code = ROMINA GARNETT [place], 1538) 832[address]: Construction Safety Manager/Techni tressa ID = [id number] for KALPANA HANSEN CBC W/PLT COUNT & AUTO [id number] 05:52:00 Test Item Value Reference Range Interpretation [...] PERCENT (BEAKER) (test code = 2801) POCT-GLUCOSE [id number] 23:33:00 Test Item Value Reference Range Interpretation Comments POC-GLUCOSE METER 77 mg/dL 70-110 : TESTED A T [facility] 6720 (BEAKER) (test code = ROMINA GARNETT [place], 1538) 21791: Construction Safety Manager/Techni tressa ID = [id number] for Cart russ (agency)[facility] 2D Echo W/Doppler(CW/PW/Color)2021-03-31 17:56:10Ejection FractionSLEH ECHO HEARTLAB MKCKESSON CPACSInterface, External Ris In - 03/31/2021 5:56 PM CD TTransthoracic Echocardiography Report (TTE) Demographics Patient Name KEVIN HAMMOND Date of Study 03/30/2021 Gender Male Visit Number [id number] Race Unknown Room Number C628 Number Date of 1945 Referring Physician JD JEFFERSON Age 75 year(s) S onographer Mili Malagon, [facility] Regional Sales Associate Ger Hui Interpreting Doc Tolbert MD Physician Procedure Type of Study TTE procedure:2DECHO W DOPPLER(CW/PW/COLOR) (Routine) Indications:Initial evaluation of valvular or structural heart disease.Clinical HistoryHGB 11.3HCT 38.6 %Acute Cholecystitis, Severeanemia, Alzheimer, COVID 19+Height: 67 inches Weight: 87.54 kg (193 lbs) BSA: 1.99 m^2 BMI: 30.23 kg/m^2HR: 81 bpm BP: 137/68 mmHg Summary 1. The left ventricle is chamber size (by vol index) is normal. Normal LV wall thickness. All of the LV segments contract normally. Estimated LVEF by qualitative assessment is normal (55-60%). LA size is mildly enlarged. 2. Normal right ventricle structure and function. Right atrium dilated. Estimated peak systolic PA pressure is 30-35 mmHg (normal range). 3. Wusf-ug-pyqslrbp mitral regurgitation. Previous Study No prior exam available for comparison. Signature - Findings Left Ventricle The left ventricle is chamber size (by vol index) is normal (male - LVED vol - 34-74ml/m2). Normal LV wall thickness. All of the LV segments contract normally. Estimated LVEF by qualitative assessment is normal (55-60%) . Left Atrium LA size is mildly enlarged . Right Ventricle Normal right ventricle structure and function. Right Atrium Right atrium dilated. Aortic Valve Mild AoV cusp thickening. Mild aortic regurgitation. Mitral Valve Mild MV leaflet thick ening. Otji-ml-rfsbeser mitral regurgitation. Tricuspid Valve Trace tricuspid regurgitation. Estimated peak systolic PA pressure is 30-35 mmHg (normal range) . Pulmonic Valve Normal PV structure and function by limited views and Doppler. Aorta Aortic root size (SInus of Valsalva diameter) is normal . Pericardium No evidence of pericardial effusion. IVC/SVC/PA/PV/Pleural The estimated RA pressure byIVC dynamics indeterminate . Chambers/Structures Left Atrium LA Dimension: 4.33 cm LA Area: 23.88 cm^2 LA Volume: 78.25 ml LA Vol. Index: 39 ml/m^2 Left Ventricle LVIDd: 5.31 cm LV Septum Diastolic: 1.06 cm LV PW Diastolic: 1.07 cm [...] CO: 5.76 l/min LVOT CI: 2.89 l/min/m^2[facility]CW/PW/Color) 2021-03-31 17:56:10Ejection FractionSLEH ECHO HEARTLAB [facility] W/Doppler(CW/PW/Color)2021-03-31 17:56:10Ejection FractionSLEH ECHO [facility] W/Doppler(CW/PW/Color)2021-03-31 17:56:10Ejection FractionSLEH ECHO [facility] W/Doppler(CW/PW/Color) 2021-03-31 17:56:10[facility]/Doppler(CW/PW/Color)2021-03-31 17:56:10[facility]jection [facility]SLE [facility] [id number] 15:39:00 Test Item Value Reference Range Interpretation Comments POC-GLUCOSE METER 81 mg/dL 70-110 : Notified RN/MD: TESTED (BEAKER) (test code AT [facility] [address] = 1538) [facility], 770 30: Construction Safety Manager/Techni tressa ID = [id number] for Lux (contract)Shola [id number] 13:30:00 Test Item Value Reference Range Interpretation Comments MAGNESIUM (BEAKER) (test code = 1.4 mg/dL 1.6-2.6 L 627) Construction Safety Manager ID - ERWIN [id number] 13:30:00 Test Item Value Reference Range Interpretation Comments PHOSPHORUS (BEAKER) (test code = 2.3 mg/dL 2.3-4.7 604) Construction Safety Manager ID - ERWIN FHEPATIC FUNCTION [id number] 13:30:00 Test Item Value Reference Range Interpretation [...] (test code = 19 U/L 6-55 347) Construction Safety Manager [facility] - [facility] [id number] 13:30:00 Test Item Value Reference Range Interpretation [...] S NOT APPLICABLE FOR DIALYSIS PATIEN TS. Construction Safety Manager ID - [facility], [id number] 13:28:00 Test Item Value Reference Range Interpretation Comments Vancomycin Rm (test 43.6 ug/mL code = 60969-3) STACY (test code = Reference Range: No STACY) NormalsOperator ID - [facility], [id number] 13:28:00 Test Item Value Reference Range Interpretation Comments Vancomycin Rm (test 43.6 ug/mL code = 80482-5) STACY (test code = Reference Range: No STACY) NormalsOperator ID - [facility], [id number] 13:28:00 Test Item Value Reference Range Interpretation Comments Vancomycin Rm (test 43.6 ug/mL code = 57776-1) STACY (test code = Reference Range: No STACY) NormalsOperator ID - [facility], [id number] 13:28:00 Test Item Value Reference Range Interpretation Comments Vancomycin Rm (test 43.6 ug/mL code = 88385-4) STACY (test code = Reference Range: No STACY) NormalsOperator ID - ERWIN [facility] [place], [id number] 13:28:00 Test Item Value Reference Range Interpretation Comments Vancomycin Rm (test 43.6 ug/mL code = 26087-2) STACY (test code = Reference Range: No STACY) NormalsOperator ID - ERWIN [facility] [place], [id number] 13:28:00 Test Item Value Reference Range Interpretation Comments Vancomycin Rm (test 43.6 ug/mL code = 96320-7) STACY (test code = Reference Range: No STACY) NormalsOperator ID - [facility], [id number] 13:28:00 Test Item Value Reference Range Interpretation Comments VANCOMYCIN RANDOM (BEAKER) (test 43.6 ug/mL code = 523) Reference Range: No NormalsOperator ID - ERWIN ALCIUM, [id number] 13:24:00 Test Item Value Reference Range Interpretation Comments CALCIUM IONIZED (BEAKER) (test 1.09 mmol/L 1.12-1.27 L code = 698) PH, BLOOD (BEAKER) (test code = 7.38 1810) CBC W/PLT COUNT & AUTO [id number] 13:14:00 Test Item Value Reference Range Interpretation [...] PERCENT (BEAKER) (test code = 2801) POCT-GLUCOSE [id number] 12:20:00 Test Item Value Reference Range Interpretation Comments POC-GLUCOSE METER 81 mg/dL 70-110 : Notified RN/MD: TESTED (BEAKER) (test code AT [place] [address] [address] = 1538) [facility], [address] 30: Construction Safety Manager/Techni tressa ID = [id number] for Lux (contract), Shola oralia POCT-GLUCOSE [id number] 10:10:00 Test Item Value Reference Range Interpretation Comments POC-GLUCOSE METER 90 mg/dL 70-110 : Notified RN/MD: TESTED (BEAKER) (test code AT [place] [address] [address] = 1538) [facility], [facility] [address] 30: Construction Safety Manager/Techni tressa ID = [id number] for Lux (contract), Shola ny RAD, ABDOMEN/KUB, 1 VIEW [id number] 01:44:00For bedside G-tube study. Call radiology for KUB when gastroview, 60 cc syringe, and water for flushing are at the bedside and nursing is ready/Reason for exam:->G-tube studyShould this be performedat the bedside?->Yes [facility] 1945 Sex: MFINAL REPORT EXAM/TECHNIQUE: Supine radiograph of the abdomen. INDICATION: Abdominal radiography from 03/30/2021. COMPARISON: Abdominal radiography from 03/30/2021. FINDINGS: Gastrostomy tube ispresent there is contrast in the stomach and in the small bowel. No acute osseous process. Impression: Gastrostomy tube is in the stomach in the small bowel. Signed: Galileo Cuello Verified Date/Time: 03/31/2021 01:44:07 XR abdomen / KUB 1 view 2021-03-31 01:44:00Interface, External Ris In - 03/31/2021 1:47 AM CDTFINAL REPORT EXAM/TECHNIQUE:Supine radiograph of the abdomen. INDICATION: Abdominal radiography from 03/30/2021. COMPARISON: Abdominal radiography from 03/30/2021. FINDINGS: Gastrostomy tube is present there is contrast in the stomach and in the small bowel. No acute osseous process. Impression: Gastrostomy tube is in the stomach inthe small bowel. Signed: Galileo Cuello Verified Date/Time: 03/31/2021 01:44:07 [facility] BASIC METABOLIC [id number] 00:40:00 Test Item Value Reference Range Interpretation [...] S NOT APPLICABLE FOR DIALYSIS PATIEN TS. Construction Safety Manager ID - DBPOCT-GLUCOSE [id number] 21:42:00 Test Item Value Reference Range Interpretation Comments POC-GLUCOSE METER 117 mg/dL 70-110 H : TESTED A T [facility] 6720 (RENEA) (test code [facility], = 1538) [address]: Construction Safety Manager/Techni tressa ID = [id number] for Kelsie anthony (agency)Marlo POCT-GLUCOSE [id number] 17:39:00 Test Item Value Reference Range Interpretation Comments POC-GLUCOSE METER 140 mg/dL 70-110 H : TESTED A T [facility] 6720 (YUSUFNotorious) (test code = [facility], 1538) [address]: Construction Safety Manager/Techni tressa ID = [id number] for AG UILARJOSE RAD, ABDOMEN/KUB, 1 VIEW [id number] 17:36:00Reason for exam:->peg placementShould this be performed at the bedside?->Yes [facility] : 1945 Sex: MFINAL REPORT EXAM: KUB CLINICAL HISTORY: Feeding tube insertion COMPARISON: March 28, 2021 FINDINGS: A percutaneous gastrostomy tube is noted overlying the midline abdomen. The patient isalso status post lap band surgery with postoperative changes. There is nonobstructive bowel gas pattern. There is no evidence of pneumoperitoneum or pathological calcifications. The regional osseous structures are unremarkable. Signed: Jazmín Lee MDReport Verified Date/Time: 03/30/2021 17:36:33 Reading Location: [facility] C013W Consult Reading Room BASIC METABOLIC [id number] 17:12:00 Test Item Value Reference Range Interpretation [...] S NOT APPLICABLE FOR DIALYSIS PATIEN TS. Construction Safety Manager ID - DBPOCT-GLUCOSE [id number] 13:04:00 Test Item Value Reference Range Interpretation Comments POC-GLUCOSE METER 101 mg/dL 70-110 : [facility] (test code = [place], 1538) [address]: Construction Safety Manager/Techni tressa ID = [id number] for JOSE JOHNSON U/S, RENAL, [id number] 11:52:00Reason for exam:->akiShould this be performed at the bedside?->Yes [facility] : 1945 Sex: [...] region right kidney, a 1.6 x 1.2 x1.2 cm anechoic lesion is noted most compatible with a cyst. No perinephric fluid collection is seen. The bladder is contracted with a Gray catheter. Impression: 1. Small right renal cyst. 2. Elevatedrenal cortical echogenicity most compatible with medical renal disease. Signed: Jazmín Lee MDReport Verified Date/Time: 03/30/2021 11:52:42 Reading Location: [address] Consult Reading Room US renal [id number] 11:52:00Interface, External Ris In - 03/30/2021 11:54 [...] seen. The bladder is contracted with a Foleycatheter. Impression: 1. Small right renal cyst. 2. Elevated renal cortical echogenicity most compatible with medical renal disease. Signed: Jazmín Lee MDReport Verified Date/Time: 03/30/2021 11:52 :42 Reading Location: [facility] C013W Consult Reading Room [facility]OLIC [id number] 10:57:00 Test Item Value Reference Range Interpretation [...] S NOT APPLICABLE FOR DIALYSIS PATIEN TS. Construction Safety Manager [facility] - [facility] [id number] 05:59:00 Test Item Value Reference Range Interpretation [...] S NOT APPLICABLE FOR DIALYSIS PATIEN TS. Construction Safety Manager ID - DBCREATINE KINASE (CK)2021-03-30 05:40:00 Test Item Value Reference Range Interpretation Comments CREATINE KINASE TOTAL (BEAKER) (test 43 U/L 29-200 code = 380) Construction Safety Manager ID - [id number] 05:33:00 Test Item Value Reference Range Interpretation Comments PHOSPHORUS (BEAKER) (test code = 1.6 mg/dL 2.3-4.7 L 604) Construction Safety Manager ID - DBHEPATIC FUNCTION [id number] 05:33:00 Test Item Value Reference Range Interpretation [...] (test code = 8 U/L 6-55 347) Construction Safety Manager ID - DBCREATINE KINASE (CK)2021-03-30 05:33:00 Test Item Value Reference Range Interpretation Comments CREATINE KINASE TOTAL (BEAKER) (test 42 U/L 29-200 code = 380) Construction Safety Manager ID - DBC-REACTIVE [id number] 05:33:00 Test Item Value Reference Range Interpretation Comments C-REACTIVE PROTEIN (BEAKER) (test 10.11 mg/dL 0.00-0.50 H code = 676) Construction Safety Manager ID - [id number] 05:33:00 Test Item Value Reference Range Interpretation Comments MAGNESIUM (BEAKER) (test code = 1.4 mg/dL 1.6-2.6 L 627) Construction Safety Manager ID - DBCALCIUM, [id number] 05:19:00 Test Item Value Reference Range Interpretation Comments CALCIUM IONIZED (BEAKER) (test 1.08 mmol/L 1.12-1.27 L code = 698) PH, BLOOD (BEAKER) (test code = 7.38 1810) POCT-GLUCOSE [id number] 05:14:00 Test Item Value Reference Range Interpretation Comments POC-GLUCOSE METER 127 mg/dL 70-110 H : [facility] (test code [facility], = 1538) [address]: Construction Safety Manager/Techni tressa ID = [id number] for Kelsie anthony (agency)Marlo CBC W/PLT COUNT & AUTO [id number] 05:03:00 Test Item Value Reference Range Interpretation [...] PERCENT (BEAKER) (test code = 2801) POCT-GLUCOSE [id number] 23:51:00 Test Item Value Reference Range Interpretation Comments POC-GLUCOSE METER 135 mg/dL 70-110 H : TESTED A T [facility] 6720 (BEAKER) (test code [facility], = 1538) [address]: Construction Safety Manager/Techni tressa ID = [id number] for Kelsie anthony (agency)Marlo Creatinine, random [id number] 22:56:00 Test Item Value Reference Range Interpretation Comments Creatinine, Ur 88.5 mg/dL (test code = 2161-8) STACY (test code = Reference Range: No STACY) NormalsOperator ID - DB [facility], random [id number] 22:56:00 Test Item Value Reference Range Interpretation Comments Sodium Urine (test 80 meq/L code = 2955-3) STACY (test code = Reference Range: No STACY) NormalsOperator ID - DB [facility], random [id number] 22:56:00 Test Item Value Reference Range Interpretation Comments Creatinine, Ur 88.5 mg/dL (test code = 2161-8) STACY (test code = Reference Range: No STACY) NormalsOperator ID - DB [facility], random [id number] 22:56:00 Test Item Value Reference Range Interpretation Comments Sodium Urine (test 80 meq/L code = 2955-3) STACY (test code = Reference Range: No STACY) NormalsOperator ID - DB [facility] CenterCreat[facility], random [id number] 22:56:00 Test Item Value Reference Range Interpretation Comments Creatinine, Ur 88.5 mg/dL (test code = 2161-8) STACY (test code = Reference Range: No STACY) NormalsOperator ID - DB [facility], random [id number] 22:56:00 Test Item Value Reference Range Interpretation Comments Sodium Urine (test 80 meq/L code = 2955-3) STACY (test code = Reference Range: No STACY) NormalsOperator ID - DB [facility] CenterCreatinine, random [id number] 22:56:00 Test Item Value Reference Range Interpretation Comments Creatinine, Ur 88.5 mg/dL (test code = 2161-8) STACY (test code = Reference Range: No STACY) NormalsOperator ID - DB [facility], random [id number] 22:56:00 Test Item Value Reference Range Interpretation Comments Sodium Urine (test 80 meq/L code = 2955-3) STACY (test code = Reference Range: No STACY) NormalsOperator ID - DB [facility] CenterCreat[facility], random [id number] 22:56:00 Test Item Value Reference Range Interpretation Comments Creatinine, Ur 88.5 mg/dL (test code = 2161-8) STACY (test code = Reference Range: No STACY) NormalsOperator ID - [facility] [id number] 22:56:00 Test Item Value Reference Range Interpretation Comments Sodium Urine (test 80 meq/L code = 2955-3) STACY (test code = Reference Range: No STACY) NormalsOperator ID - DB [facility] CenterCreat[facility], random [id number] 22:56:00 Test Item Value Reference Range Interpretation Comments Creatinine, Ur 88.5 mg/dL (test code = 2161-8) STACY (test code = Reference Range: No STACY) NormalsOperator ID - DB [facility], random [id number] 22:56:00 Test Item Value Reference Range Interpretation Comments Sodium Urine (test 80 meq/L code = 2955-3) STACY (test code = Reference Range: No STACY) NormalsOperator ID - DB [facility] CenterCREATININE, RANDOM [id number] 22:56:00 Test Item Value Reference Range Interpretation Comments CREATININE URINE (BEAKER) (test 88.5 mg/dL code = 375) Reference Range: No NormalsOperator ID - DBSODIUM, RANDOM [id number] 22:56:00 Test Item Value Reference Range Interpretation Comments SODIUM URINE (BEAKER) (test code = 80 meq/L 243) Reference Range: No NormalsOperator ID - DBOsmolality, [id number] 22:15:00 Test Item Value Reference Range Interpretation Comments Osmolality Serum (test 344 See_Comment H [Aut omated message] code = 2692-2) The system [employer] generated this result transmitted ref erence range: 275 - 29 5 mOsm/kg. The reference range was not used to int erpret this result as normal/abnormal . Lab Interpretation (test Abnormal code = 74322-6) [facility] CenterOsmolality, [id number] 22:15:00 Test Item Value Reference Range Interpretation Comments Osmolality Serum (test 344 See_Comment H [Aut omated message] code = 2692-2) The system [employer] generated this result transmitted ref erence range: 275 - 29 5 mOsm/kg. The reference range was not used to int erpret this result as normal/abnormal . Lab Interpretation (test Abnormal code = 91904-6) [facility] CenterOsmolality, [id number] 22:15:00 Test Item Value Reference Range Interpretation Comments Osmolality Serum (test 344 See_Comment H [Aut omated message] code = 2692-2) The system [employer] generated this result transmitted ref erence range: 275 - 29 5 mOsm/kg. The reference range was not used to int erpret this result as normal/abnormal . Lab Interpretation (test Abnormal code = 99779-2) [facility] [id number] 22:15:00 Test Item Value Reference Range Interpretation Comments Osmolality Serum (test 344 See_Comment H [Aut omated message] code = 2692-2) The system [employer] generated this result transmitted ref erence range: 275 - 29 5 mOsm/kg. The reference range was not used to int erpret this result as normal/abnormal . Lab Interpretation (test Abnormal code = 34740-3) [facility] [id number] 22:15:00 Test Item Value Reference Range Interpretation Comments Osmolality Serum (test 344 See_Comment H [Aut omated message] code = 2692-2) The system [employer] generated this result transmitted ref erence range: 275 - 29 5 mOsm/kg. The reference range was not used to int erpret this result as normal/abnormal . Lab Interpretation (test Abnormal code = 42200-9) [facility] [id number] 22:15:00 Test Item Value Reference Range Interpretation Comments Osmolality Serum (test 344 See_Comment H [Aut omated message] code = 2692-2) The system [employer] generated this result transmitted ref erence range: 275 - 29 5 mOsm/kg. The reference range was not used to int erpret this result as normal/abnormal . Lab Interpretation (test Abnormal code = 63698-2) [facility], [id number] 22:15:00 Test Item Value Reference Range Interpretation Comments OSMOLALITY, SERUM (BEAKER) (test 344 mOsm/kg 275-295 H code = 615) BASIC METABOLIC [id number] 22:15:00 Test Item Value Reference Range Interpretation [...] S NOT APPLICABLE FOR DIALYSIS PATIEN TS. Construction Safety Manager ID - [facility]smcal[facility], [id number] 22:10:00 Test Item Value Reference Range Interpretation Comments Osmolality, Ur (test code 769 See_Comment [ Automated message] = 2695-5) The system [employer] generated this result transmitted ref erence range: 50-1,200 mOsm/kg mOsm/kg . The reference range was not used to int erpret this result as normal/abnormal . Lab Interpretation (test Normal code = 53768-0) [facility], [id number] 22:10:00 Test Item Value Reference Range Interpretation Comments Osmolality, Ur (test code 769 See_Comment [ Automated message] = 2695-5) The system [employer] generated this result transmitted ref erence range: 50-1,200 mOsm/kg mOsm/kg . The reference range was not used to int erpret this result as normal/abnormal . Lab Interpretation (test Normal code = 53691-1) [facility], [id number] 22:10:00 Test Item Value Reference Range Interpretation Comments Osmolality, Ur (test code 769 See_Comment [ Automated message] = 2695-5) The system [employer] generated this result transmitted ref erence range: 50-1,200 mOsm/kg mOsm/kg . The reference range was not used to int erpret this result as normal/abnormal . Lab Interpretation (test Normal code = 67241-2) [facility], [id number] 22:10:00 Test Item Value Reference Range Interpretation Comments Osmolality, Ur (test code 769 See_Comment [ Automated message] = 2695-5) The system [employer] generated this result transmitted ref erence range: 50-1,200 mOsm/kg mOsm/kg . The reference range was not used to int erpret this result as normal/abnormal . Lab Interpretation (test Normal code = 60633-2) [facility] CenterOsmolality, [id number] 22:10:00 Test Item Value Reference Range Interpretation Comments Osmolality, Ur (test code 769 See_Comment [ Automated message] = 2695-5) The system [employer] generated this result transmitted ref erence range: 50-1,200 mOsm/kg mOsm/kg . The reference range was not used to int erpret this result as normal/abnormal . Lab Interpretation (test Normal code = 49031-5) [facility] CenterOsmolality, [id number] 22:10:00 Test Item Value Reference Range Interpretation Comments Osmolality, Ur (test code 769 See_Comment [ Automated message] = 2695-5) The system [employer] generated this result transmitted ref erence range: 50-1,200 mOsm/kg mOsm/kg . The reference range was not used to int erpret this result as normal/abnormal . Lab Interpretation (test Normal code = 45335-5) [facility] CenterOSMOLALITY, [id number] 22:10:00 Test Item Value Reference Range Interpretation Comments OSMOLALITY URINE 769 mOsm/kg See_Comment [Automated message] (BEAKER) (test code = The sy stem which 614) generated this result transmitted ref erence range: 50-1,200 mOsm/kg. The reference range was not used to int erpret this result as normal/abnormal . Protein, random [id number] 18:44:00 Test Item Value Reference Range Interpretation Comments Protein, Urine (test code = <68 0-14 H 2888-6) STACY (test code = STACY) Construction Safety Manager ID - DB Lab Interpretation (test Abnormal code = 58858-0) [facility] CenterProtein, random [id number] 18:44:00 Test Item Value Reference Range Interpretation Comments Protein, Urine (test code = <68 0-14 H 2888-6) STACY (test code = STACY) Construction Safety Manager ID - DB Lab Interpretation (test Abnormal code = 12318-5) [facility] CenterProtein, random [id number] 18:44:00 Test Item Value Reference Range Interpretation Comments Protein, Urine (test code = <68 0-14 H 2888-6) STACY (test code = STACY) Construction Safety Manager ID - DB Lab Interpretation (test Abnormal code = 14832-2) [facility] CenterProtein, random [id number] 18:44:00 Test Item Value Reference Range Interpretation Comments Protein, Urine (test code = <68 0-14 H 2888-6) STACY (test code = STACY) Construction Safety Manager ID - DB Lab Interpretation (test Abnormal code = 26400-8) [facility] CenterProtein, random [id number] 18:44:00 Test Item Value Reference Range Interpretation Comments Protein, Urine (test code = <68 0-14 H 2888-6) STACY (test code = STACY) Construction Safety Manager ID - DB Lab Interpretation (test Abnormal code = 55612-1) [facility] CenterProtein, random [id number] 18:44:00 Test Item Value Reference Range Interpretation Comments Protein, Urine (test code = <68 0-14 H 2888-6) STACY (test code = STACY) Construction Safety Manager ID - DB Lab Interpretation (test Abnormal code = 56814-5) [facility] CenterPROTEIN, RANDOM [id number] 18:44:00 Test Item Value Reference Range Interpretation Comments PROTEIN, URINE (BEAKER) (test code = < mg/dL 0-14 H 1569) Construction Safety Manager ID - DBCREATININE, RANDOM [id number] 18:22:00 Test Item Value Reference Range Interpretation Comments CREATININE URINE (BEAKER) (test 105.0 mg/dL code = 375) Reference Range: No NormalsOperator ID - DBSODIUM, RANDOM [id number] 18:22:00 Test Item Value Reference Range Interpretation Comments SODIUM URINE (BEAKER) (test code = 47 meq/L 243) Reference Range: No NormalsOperator ID - DBOSMOLALITY, [id number] 18:03:00 Test Item Value Reference Range Interpretation Comments OSMOLALITY URINE 662 mOsm/kg See_Comment [Automated message] (BEAKER) (test code = The sy stem which 614) generated this result transmitted ref erence range: 50-1,200 mOsm/kg. The reference range was not used to int erpret this result as normal/abnormal . POCT-GLUCOSE [id number] 17:36:00 Test Item Value Reference Range Interpretation Comments POC-GLUCOSE METER 146 mg/dL 70-110 H : TESTED A T [facility] 6720 (BEAKER) (test code = [place], 1538) [address]: Construction Safety Manager/Techni tressa ID = [id number] for Analisa monroy (contract)Yulis BASIC METABOLIC [id number] 17:08:00 Test Item Value Reference Range Interpretation [...] S NOT APPLICABLE FOR DIALYSIS PATIEN TS. Construction Safety Manager ID - AAHAMIDValproic acid level, [id number] 17:07:00 Test Item Value Reference Range Interpretation Comments Valproic Acid, Total <2 50-100 L (test code = 4086-5) STACY (test code = STACY) Therapeutic range for some clinical conditions may be >100 ug/mLOperator ID - AAHAMID Lab Interpretation (test Abnormal code = 19034-0) [facility] CenterPhenytoin level, [id number] 17:07:00 Test Item Value Reference Range Interpretation Comments Phenytoin (test code = <0.5 10-20 L 3968-5) STACY (test code = STACY) Construction Safety Manager ID - AAHAMID Lab Interpretation (test Abnormal code = 41538-6) [facility] CenterValproic acid level, [id number] 17:07:00 Test Item Value Reference Range Interpretation Comments Valproic Acid, Total <2 50-100 L (test code = 4086-5) STACY (test code = STACY) Therapeutic range for some clinical conditions may be >100 ug/mLOperator ID - AAHAMID Lab Interpretation (test Abnormal code = 11836-1) [facility] CenterPhenytoin level, [id number] 17:07:00 Test Item Value Reference Range Interpretation Comments Phenytoin (test code = <0.5 10.0-20.0 L 3968-5) STACY (test code = STACY) Construction Safety Manager ID - AAHAMID Lab Interpretation (test Abnormal code = 79917-2) [facility] CenterValproic acid level, [id number] 17:07:00 Test Item Value Reference Range Interpretation Comments Valproic Acid, Total <2 50-100 L (test code = 4086-5) STACY (test code = STACY) Therapeutic range for some clinical conditions may be >100 ug/mLOperator ID - AAHAMID Lab Interpretation (test Abnormal code = 53101-6) [facility] CenterPhenytoin level, [id number] 17:07:00 Test Item Value Reference Range Interpretation Comments Phenytoin (test code = <0.5 10.0-20.0 L 3968-5) STACY (test code = STACY) Construction Safety Manager ID - AAHAMID Lab Interpretation (test Abnormal code = 43999-8) [facility] CenterValproic acid level, [id number] 17:07:00 Test Item Value Reference Range Interpretation Comments Valproic Acid, Total <2 50-100 L (test code = 4086-5) STACY (test code = STACY) Therapeutic range for some clinical conditions may be >100 ug/mLOperator ID - AAHAMID Lab Interpretation (test Abnormal code = 02544-9) [facility] CenterPhenytoin level, [id number] 17:07:00 Test Item Value Reference Range Interpretation Comments Phenytoin (test code = <0.5 10.0-20.0 L 3968-5) STACY (test code = STACY) Construction Safety Manager ID - AAHAMID Lab Interpretation (test Abnormal code = 05548-3) [facility] CenterValproic acid level, [id number] 17:07:00 Test Item Value Reference Range Interpretation Comments Valproic Acid, Total <2 50-100 L (test code = 4086-5) STACY (test code = STACY) Therapeutic range for some clinical conditions may be >100 ug/mLOperator ID - AAHAMID Lab Interpretation (test Abnormal code = 60695-0) [facility] CenterPhenytoin level, [id number] 17:07:00 Test Item Value Reference Range Interpretation Comments Phenytoin (test code = <0.5 10.0-20.0 L 3968-5) STACY (test code = STACY) Construction Safety Manager ID - AAHAMID Lab Interpretation (test Abnormal code = 73854-4) [facility] CenterValpro[facility] level, [id number] 17:07:00 Test Item Value Reference Range Interpretation Comments Valproic Acid, Total <2 50-100 L (test code = 4086-5) STACY (test code = STACY) Therapeutic range for some clinical conditions may be >100 ug/mLOperator ID - AAHAMID Lab Interpretation (test Abnormal code = 32940-9) [facility] CenterPhenytoin level, [id number] 17:07:00 Test Item Value Reference Range Interpretation Comments Phenytoin (test code = <0.5 10.0-20.0 L 3968-5) STACY (test code = STACY) Construction Safety Manager ID - AAHAMID Lab Interpretation (test Abnormal code = 02200-3) [facility] CenterVALPROIC ACID LEVEL, [id number] 17:07:00 Test Item Value Reference Range Interpretation Comments VALPROIC ACID TOTAL (BEAKER) (test < ug/mL 50-100 L code = 924) Therapeutic range for some clinical conditions may be >100 ug/mLOperator ID - AAHAMIDPHENYTOIN LEVEL, [id number] 17:07:00 Test Item Value Reference Range Interpretation Comments PHENYTOIN (DILANTIN) (BEAKER) (test < ug/mL 10.0-20.0 L code = 605) Construction Safety Manager ID - AAHAMIDBASIC METABOLIC [id number] 13:35:00 Test Item Value Reference Range Interpretation [...] S NOT APPLICABLE FOR DIALYSIS PATIEN TS. Construction Safety Manager ID - AAHAMIDPOCT-GLUCOSE [id number] 12:55:00 Test Item Value Reference Range Interpretation Comments POC-GLUCOSE METER 113 mg/dL 70-110 H : TESTED A T [facility] 6720 (BEAKER) (test code = [facility], 1538) [address]8045: Construction Safety Manager/Techni tressa ID = [id number] for Analisa monroy (contract), Yuli lisa BASIC METABOLIC [id number] 10:00:00 Test Item Value Reference Range Interpretation [...] S NOT APPLICABLE FOR DIALYSIS PATIEN TS. Construction Safety Manager ID - AAHAMIDB-type Natriuretic Factor (BNP)2021-03-29 09:49:00 Test Item Value Reference Range Interpretation Comments BNP (test code = 58320-5) 315 pg/mL 0-100 H STACY (test code = STACY) Construction Safety Manager ID - AAHAMID Lab Interpretation (test Abnormal code = 28045-1) [facility] Center[facility] Factor (BNP)2021-03-29 09:49:00 Test Item Value Reference Range Interpretation Comments BNP (test code = 52728-0) 315 pg/mL 0-100 H STACY (test code = STACY) Construction Safety Manager ID - AAHAMID Lab Interpretation (test Abnormal code = 13857-6) [facility] CenterB[facility] Nat[facility] Factor (BNP)2021-03-29 09:49:00 Test Item Value Reference Range Interpretation Comments BNP (test code = 44516-0) 315 pg/mL 0-100 H STACY (test code = STACY) Construction Safety Manager ID - AAHAMID Lab Interpretation (test Abnormal code = 18266-1) [facility] CenterB[facility] Factor (BNP)2021-03-29 09:49:00 Test Item Value Reference Range Interpretation Comments BNP (test code = 36172-1) 315 pg/mL 0-100 H STACY (test code = STACY) Construction Safety Manager ID - AAHAMID Lab Interpretation (test Abnormal code = 58430-9) [facility] CenterB[facility] Factor (BNP)2021-03-29 09:49:00 Test Item Value Reference Range Interpretation Comments BNP (test code = 62497-1) 315 pg/mL 0-100 H STACY (test code = STACY) Construction Safety Manager ID - AAHAMID Lab Interpretation (test Abnormal code = 06074-4) [facility] CenterB[facility] Factor (BNP)2021-03-29 09:49:00 Test Item Value Reference Range Interpretation Comments BNP (test code = 89407-4) 315 pg/mL 0-100 H STACY (test code = STACY) Construction Safety Manager ID - AAHAMID Lab Interpretation (test Abnormal code = 05538-3) [facility] CenterB-TYPE NATRIURETIC FACTOR (BNP)2021-03-29 09:49:00 Test Item Value Reference Range Interpretation Comments B-TYPE NATRIURETIC PEPTIDE (BEAKER) 315 pg/mL 0-100 H (test code = 700) Construction Safety Manager ID - SHAUNNACOMYCIN LEVEL, [id number] 09:45:00 Test Item Value Reference Range Interpretation Comments VANCOMYCIN RANDOM (BEAKER) (test 6.7 ug/mL code = 523) Reference Range: No NormalsOperator ID - AAHAMIDManual Voeoobxfppja1344-38-44 07:17:00 Test Item Value Reference Range Interpretation [...] = 3438) STACY (test code = STACY) Construction Safety Manager ID - Daisy Franklin comments: Slide comments: Lab Interpretation Abnormal (test code = 94769-3) [facility] CenterManual Kqazrzibfpvp5240-17-98 07:17:00 Test Item Value Reference Range Interpretation [...] = 3438) STACY (test code = STACY) Construction Safety Manager ID - Daisy Franklin comments: Slide comments: Lab Interpretation Abnormal (test code = 39125-3) [facility] Cvdtifwvfgew1534-17-78 07:17:00 Test Item Value Reference Range Interpretation [...] = 3438) STACY (test code = STACY) Construction Safety Manager ID - Daisy Franklin comments: Slide comments: Lab Interpretation Abnormal (test code = 36290-9) [facility] Ojhdbttxhhvv9216-37-50 07:17:00 Test Item Value Reference Range Interpretation [...] = 3438) STACY (test code = STACY) Construction Safety Manager ID - Daisy Franklin comments: Slide comments: Lab Interpretation Abnormal (test code = 03336-5) [facility] CenterManual Cefuqvvrsrgr8706-79-05 07:17:00 Test Item Value Reference Range Interpretation [...] = 3438) STACY (test code = STACY) Construction Safety Manager ID - Daisy Franklin comments: Slide comments: Lab Interpretation Abnormal (test code = 50447-5) [facility] CenterManual Mgrsjzbzodsu3337-81-10 07:17:00 Test Item Value Reference Range Interpretation [...] = 3438) STACY (test code = STACY) Construction Safety Manager ID - Daisy Franklin comments: Slide comments: Lab Interpretation Abnormal (test code = 68910-9) [facility] CenterCBC W/PLT COUNT & AUTO [id number] 07:17:00 Test Item Value Reference Range Interpretation [...] CONCENTRATION Adequate (CELLAVISION)(BEAKER) (test code = 3438) Construction Safety Manager ID - Daisy DaiKranthielmer comments: Slide comments:TSH/Free T4 If Kkntllwbn7405-00-00 06:43:00 Test Item Value Reference Range Interpretation Comments TSH (test code = 1.408 See_Comment [Automated 30138-7) message] The system which generated this result transmit saulo reference range : 0.350 - 4.940 uIU/mL. The reference range was not used to interpret this result as normal/abnormal . STACY (test code = STACY) Construction Safety Manager ID - AME White Lab Interpretation Normal (test code = 56142-9) [facility]/Free T4 If Wjyaajcpt0366-08-82 06:43:00 Test Item Value Reference Range Interpretation Comments TSH (test code = 1.408 See_Comment [Automated 89735-6) message] The system which generated this result transmit saulo reference range : 0.350 - 4.940 uIU/mL. The reference range was not used to interpret this result as normal/abnormal . STACY (test code = STACY) Construction Safety Manager ID - AME White Lab Interpretation Normal (test code = 68319-9) [facility] CenterTSH/Free T4 If Ujeirgspi0568-76-57 06:43:00 Test Item Value Reference Range Interpretation Comments TSH (test code = 1.408 See_Comment [Automated 24951-7) message] The system which generated this result transmit saulo reference range : 0.350 - 4.940 uIU/mL. The reference range was not used to interpret this result as normal/abnormal . STACY (test code = STACY) Construction Safety Manager ID - AME M Lab Interpretation Normal (test code = 63422-4) [facility] CenterTS/Free T4 If Waefcrzph3648-10-18 06:43:00 Test Item Value Reference Range Interpretation Comments TSH (test code = 1.408 See_Comment [Automated 82987-2) message] The system which generated this result transmit saulo reference range : 0.350 - 4.940 uIU/mL. The reference range was not used to interpret this result as normal/abnormal . STACY (test code = STACY) Construction Safety Manager ID - AME M Lab Interpretation Normal (test code = 45433-4) [facility]/Free T4 If Mkdpqzpzy3828-64-62 06:43:00 Test Item Value Reference Range Interpretation Comments TSH (test code = 1.408 See_Comment [Automated 97865-0) message] The system which generated this result transmit saulo reference range : 0.350 - 4.940 uIU/mL. The reference range was not used to interpret this result as normal/abnormal . STACY (test code = STACY) Construction Safety Manager ID - AME Lab Interpretation Normal (test code = 48552-0) [facility]/Free T4 If Oqemybldh4823-85-41 06:43:00 Test Item Value Reference Range Interpretation Comments TSH (test code = 1.408 See_Comment [Automated 35325-4) message] The system which generated this result transmit saulo reference range : 0.350 - 4.940 uIU/mL. The reference range was not used to interpret this result as normal/abnormal . STACY (test code = STACY) Construction Safety Manager ID - AME Lab Interpretation Normal (test code = 41648-3) [facility]/FREE T4 IF [id number] 06:43:00 Test Item Value Reference Range Interpretation Comments THYROID STIMULATING HORMONE 1.408 uIU/mL 0.350-4.940 (BEAKER) (test code = 772) Construction Safety Manager ID - AME MBASIC METABOLIC [id number] 06:03:00 Test Item Value Reference Range Interpretation [...] S NOT APPLICABLE FOR DIALYSIS PATIEN TS. Construction Safety Manager ID - DBURINALYSIS W/ REFLEX URINE GRQKZEI2404-40-57 03:52:00 Test Item Value Reference Range Interpretation [...] = 1521) SOURCE(BEAKER) (test code = 2795) Construction Safety Manager ID - [auto]Construction Safety Manager ID - techLactic acid, xvoazk2535-67-96 23:23:00 Test Item Value Reference Range Interpretation Comments Lactate, Venous (test code = 1.97 mmol/L 0.50-2.20 2872) STACY (test code = STACY) Construction Safety Manager ID - DB Lab Interpretation (test Normal code = 94710-9) [facility] CenterLactic acid, lgctnm7252-68-86 23:23:00 Test Item Value Reference Range Interpretation Comments Lactate, Venous (test code = 1.97 mmol/L 0.50-2.20 2872) STACY (test code = STACY) Construction Safety Manager ID - DB Lab Interpretation (test Normal code = 05359-9) [facility], fdjerc7775-00-25 23:23:00 Test Item Value Reference Range Interpretation Comments Lactate, Venous (test code = 1.97 mmol/L 0.50-2.20 2872) STACY (test code = STACY) Construction Safety Manager ID - DB Lab Interpretation (test Normal code = 97213-8) [facility]ctic [facility], fuvawn7747-67-63 23:23:00 Test Item Value Reference Range Interpretation Comments Lactate, Venous (test code = 1.97 mmol/L 0.50-2.20 2872) STACY (test code = STACY) Construction Safety Manager ID - DB Lab Interpretation (test Normal code = 47646-0) [facility]ctic [facility], [id number] 23:23:00 Test Item Value Reference Range Interpretation Comments Lactate, Venous (test code = 1.97 mmol/L 0.5-2.2 2872) STACY (test code = STACY) Construction Safety Manager ID - DB Lab Interpretation (test Normal code = 89125-6) [facility]ctic [facility], yvgxws5272-52-92 23:23:00 Test Item Value Reference Range Interpretation Comments Lactate, Venous (test code = 1.97 mmol/L 0.50-2.20 2872) STACY (test code = STACY) Construction Safety Manager ID - DB Lab Interpretation (test Normal code = 40579-1) [facility] CenterLACTIC ACID, [id number] 23:23:00 Test Item Value Reference Range Interpretation Comments LACTATE BLOOD VENOUS (2) (BEAKER) 1.97 mmol/L 0.50-2.20 (test code = 2872) Construction Safety Manager ID - XAN-JMDLR9204-68-03 23:21:00 Test Item Value Reference Range Interpretation [...] exclusion of thrombosis is within 95-100% range. PT/[id number] 23:19:00 Test Item Value Reference Interpretation Comments Range Protime (test code = 17.6 See_Comment H [Autom ated 5902-2) message] The system which generated this result transmitted reference range : 11.9 - 14.2 seconds. The reference range was not used to interpret this result as normal/abnormal . INR (test code = 1.47 See_Comment [Automated 8511-6) message] The system which generated this result transmitted reference range : <=5.90. The reference range was not used to interpret this result as normal/abnormal . PTT (test code = 35.1 See_Comment [Automated 49281-4) message] The system which generated this result [...] valves. Lab Interpretation Abnormal (test code = 39442-8) [facility] CenterPT/sRHA4216-59-61 23:19:00 Test Item Value Reference Interpretation Comments Range Protime (test code = 17.6 See_Comment H [Autom ated 5902-2) message] The system which generated this result transmitted reference range : 11.9 - 14.2 seconds. The reference range was not used to interpret this result as normal/abnormal . INR (test code = 1.47 See_Comment [Automated 9961-6) message] The system which generated this result transmitted reference range : <=5.90. The reference range was not used to interpret this result as normal/abnormal . PTT (test code = 35.1 See_Comment [Automated 19077-9) message] The system which generated this result [...] valves. Lab Interpretation Abnormal (test code = 67121-8) [facility] CenterPT/jGDU9637-11-39 23:19:00 Test Item Value Reference Interpretation Comments Range Protime (test code = 17.6 See_Comment H [Autom ated 5902-2) message] The system which generated this result transmitted reference range : 11.9 - 14.2 seconds. The reference range was not used to interpret this result as normal/abnormal . INR (test code = 1.47 See_Comment [Automated 3621-6) message] The system which generated this result transmitted reference range : <=5.90. The reference range was not used to interpret this result as normal/abnormal . PTT (test code = 35.1 See_Comment [Automated 66872-2) message] The system which generated this result [...] valves. Lab Interpretation Abnormal (test code = 05175-1) [facility] CenterPT/eHWY0613-33-30 23:19:00 Test Item Value Reference Interpretation Comments [...] PTT (test code = 35.1 See_Comment [Automated 78891-0) message] The system which generated this result [...] valves. Lab Interpretation Abnormal (test code = 48904-8) [facility] CenterPT/iMOQ7764-41-49 23:19:00 Test Item Value Reference Interpretation Comments [...] PTT (test code = 35.1 See_Comment [Automated 29267-4) message] The system which generated this result [...] valves. Lab Interpretation Abnormal (test code = 22718-4) [facility] CenterPT/oSVZ3620-28-29 23:19:00 Test Item Value Reference Interpretation Comments Range Protime (test code = 17.6 See_Comment H [Autom ated 5902-2) message] The system which generated this result transmitted reference range : 11.9 - 14.2 seconds. The reference range was not used to interpret this result as normal/abnormal . INR (test code = 1.47 See_Comment [Automated 5261-6) message] The system which generated this result transmitted reference range : <=5.90. The reference range was not used to interpret this result as normal/abnormal . PTT (test code = 35.1 See_Comment [Automated 11481-9) message] The system which generated this result [...] valves. Lab Interpretation Abnormal (test code = 03043-7) [facility] CenterPT/LQXZ1672-40-92 23:19:00 Test Item Value Reference Range Interpretation [...] for patients with mechanical heart valves.COMPREHENSIVE METABOLIC PANEL 2021-03-28 23:14:00 Test Item Value Reference Range Interpretation [...] S NOT APPLICABLE FOR DIALYSIS PATIEN TS. Construction Safety Manager ID - DBBlood gas, uqaztpmt8998-41-27 23:12:00 Test Item Value Reference Range Interpretation Comments pH, Arterial (test code 7.52 7.35-7.45 H = 2744-1) pCO2, Arterial (test 28 See_Comment L [Autom ated message] code = 2019-8) The system [employer] generated this result transmit saulo reference range : 35 - 45 mm Hg. The reference range was not used to interpret this result as normal/abnormal . pO2, Arterial (test 186 See_Comment H [Automa saulo message] code = 2703-7) The system [employer] generated this result transmit saulo reference range [...] 44 Lab Interpretation Abnormal (test code = 13530-3) [facility]Bl[facility], [id number] 23:12:00 Test Item Value Reference Range Interpretation Comments pH, Arterial (test code 7.52 7.35-7.45 H = 2744-1) pCO2, Arterial (test 28 See_Comment L [Autom ated message] code = 2019-) The system [employer] generated this result transmit saulo reference range : 35 - 45 mm Hg. The reference range was not used to interpret this result as normal/abnormal . pO2, Arterial (test 186 See_Comment H [Automa saulo message] code = 2703-7) The system [employer] generated this result transmit saulo reference range [...] 44 Lab Interpretation Abnormal (test code = 28324-0) [facility] gas, lmoyrzcx5160-42-91 23:12:00 Test Item Value Reference Range Interpretation Comments pH, Arterial (test code 7.52 7.35-7.45 H = 2744-1) pCO2, Arterial (test 28 See_Comment L [Autom ated message] code = 2019-8) The system [employer] generated this result transmit saulo reference range : 35 - 45 mm Hg. The reference range was not used to interpret this result as normal/abnormal . pO2, Arterial (test 186 See_Comment H [Automa saulo message] code = 2703-7) The system [employer] generated this result transmit saulo reference range [...] 44 Lab Interpretation Abnormal (test code = 36583-9) [facility] gas, ynqzikxv3970-28-01 23:12:00 Test Item Value Reference Range Interpretation Comments pH, Arterial (test code 7.52 7.35-7.45 H = 2744-1) pCO2, Arterial (test 28 See_Comment L [Autom ated message] code = 2019-02) The system [employer] generated this result transmit saulo reference range : 35 - 45 mm Hg. The reference range was not used to interpret this result as normal/abnormal . pO2, Arterial (test 186 See_Comment H [Automa saulo message] code = 2703-7) The system [employer] generated this result transmit saulo reference range [...] 44 Lab Interpretation Abnormal (test code = 70614-1) [facility] CenterBlood gas, ousrhqlv6878-21-68 23:12:00 Test Item Value Reference Range Interpretation Comments pH, Arterial (test code 7.52 7.35-7.45 H = 2744-1) pCO2, Arterial (test 28 See_Comment L [Autom ated message] code = 2019-02) The system [employer] generated this result transmit saulo reference range : 35 - 45 mm Hg. The reference range was not used to interpret this result as normal/abnormal . pO2, Arterial (test 186 See_Comment H [Automa saulo message] code = 2703-7) The system [employer] generated this result transmit saulo reference range [...] 44 Lab Interpretation Abnormal (test code = 35675-9) [facility] CenterBlood gas, ncquthuq4405-68-96 23:12:00 Test Item Value Reference Range Interpretation Comments pH, Arterial (test code 7.52 7.35-7.45 H = 2744-1) pCO2, Arterial (test 28 See_Comment L [Autom ated message] code = 2019-8) The system [employer] generated this result transmit saulo reference range : 35 - 45 mm Hg. The reference range was not used to interpret this result as normal/abnormal . pO2, Arterial (test 186 See_Comment H [Automa saulo message] code = 2703-7) The system [employer] generated this result transmit saulo reference range [...] 44 Lab Interpretation Abnormal (test code = 24969-8) [facility] CenterBLOOD GAS, [id number] 23:12:00 Test Item Value Reference Range Interpretation [...] (BEAKER) (test code = 1819) 44.0 CALCIUM, [id number] 23:12:00 Test Item Value Reference Range Interpretation Comments CALCIUM IONIZED (BEAKER) (test 1.08 mmol/L 1.12-1.27 L code = 698) PH, BLOOD (BEAKER) (test code = 7.51 1810) [id number] 23:10:00 Test Item Value Reference Range Interpretation Comments MAGNESIUM (BEAKER) 1.8 mg/dL 1.6-2.6 Specimen slightly (test code = 627) hemolyzed Construction Safety Manager ID - ALXZJEOOQSKX3373-73-76 23:10:00 Test Item Value Reference Range Interpretation Comments PHOSPHORUS (BEAKER) 2.8 mg/dL 2.3-4.7 Specimen slightly (test code = 604) hemolyzed Construction Safety Manager ID - DBCREATINE KINASE (CK)2021-03-28 23:10:00 Test Item Value Reference Range Interpretation Comments CREATINE KINASE TOTAL (BEAKER) (test 23 U/L 29-200 L code = 380) Construction Safety Manager ID - DBC-REACTIVE [id number] 23:10:00 Test Item Value Reference Range Interpretation Comments C-REACTIVE PROTEIN (BEAKER) (test 14.35 mg/dL 0.00-0.50 H code = 676) Construction Safety Manager ID - DBCBC (Hemogram only)2021-03-28 23:08:00 Test Item Value Reference Range Interpretation Comments WBC (test code = 6690-2) 11.6 See_Comment H [A utomated message] The system [employer] generated this result transmitted ref erence range: 3.5 - 10 .5 K/L. The refe rence range was not u sed to interpret this result as normal/abnor mal. RBC (test code = 789-8) 3.69 See_Comment L [Au tomated message] The system [employer] generated this result transmitted ref erence range: 4.63 - 6 .08 M/L. The refe rence range was not u sed to interpret this result as normal/abnor mal. MCHC (test code = 786-4) 29.6 See_Comment L [A utomated message] The system [employer] generated this result transmitted ref erence range: [...] See_Comment [Aut omated message] 777-3) The system [employer] generated this result transmitted ref erence range: 150 - 45 0 K/CU MM. The referen ce range was not u sed to interpret this result as normal/abnor mal. MPV (test code = 10.5 fL 9.4-12.4 97653-8) nRBC (test code = 413) 0 See_Comment [Aut omated message] The system [employer] generated this result transmitted ref erence range: 0 - 0 /1 00 WBC. The refere nce range was not u sed to interpret this result as normal/abnor mal. Lab Interpretation (test Abnormal code = 08930-8) [facility] (Hemogram only)2021-03-28 23:08:00 Test Item Value Reference Range Interpretation Comments WBC (test code = 6690-2) 11.6 See_Comment H [A utomated message] The system [employer] generated this result transmitted ref erence range: 3.5 - 10 .5 K/L. The refe rence range was not u sed to interpret this result as normal/abnor mal. RBC (test code = 789-8) 3.69 See_Comment L [Au tomated message] The system [employer] generated this result transmitted ref erence range: 4.63 - 6 .08 M/L. The refe rence range was not u sed to interpret this result as normal/abnor mal. MCHC (test code = 786-4) 29.6 See_Comment L [A utomated message] The system [employer] generated this result transmitted ref erence range: [...] See_Comment [Aut omated message] 777-3) The system [employer] generated this result transmitted ref erence range: 150 - 45 0 K/CU MM. The referen ce range was not u sed to interpret this result as normal/abnor mal. MPV (test code = 10.5 fL 9.4-12.4 97943-3) nRBC (test code = 413) 0 See_Comment [Aut omated message] The system [employer] generated this result transmitted ref erence range: 0 - 0 /1 00 WBC. The refere nce range was not u sed to interpret this result as normal/abnor mal. Lab Interpretation (test Abnormal code = 07436-8) [facility] (Hemogram only)2021-03-28 23:08:00 Test Item Value Reference Range Interpretation Comments WBC (test code = 6690-2) 11.6 See_Comment H [A utomated message] The system [employer] generated this result transmitted ref erence range: 3.5 - 10 .5 K/L. The refe rence range was not u sed to interpret this result as normal/abnor mal. RBC (test code = 789-8) 3.69 See_Comment L [Au tomated message] The system [employer] generated this result transmitted ref erence range: 4.63 - 6 .08 M/L. The refe rence range was not u sed to interpret this result as normal/abnor mal. MCHC (test code = 786-4) 29.6 See_Comment L [A utomated message] The system [employer] generated this result transmitted ref erence range: [...] See_Comment [Aut omated message] 777-3) The system [employer] generated this result transmitted ref erence range: 150 - 45 0 K/CU MM. The referen ce range was not u sed to interpret this result as normal/abnor mal. MPV (test code = 10.5 fL 9.4-12.4 33541-6) nRBC (test code = 413) 0 See_Comment [Aut omated message] The system [employer] generated this result transmitted ref erence range: 0 - 0 /1 00 WBC. The refere nce range was not u sed to interpret this result as normal/abnor mal. Lab Interpretation (test Abnormal code = 61840-3) [facility] (Hemogram only)2021-03-28 23:08:00 Test Item Value Reference Range Interpretation Comments WBC (test code = 6690-2) 11.6 See_Comment H [A utomated message] The system [employer] generated this result transmitted ref erence range: 3.5 - 10 .5 K/L. The refe rence range was not u sed to interpret this result as normal/abnor mal. RBC (test code = 789-8) 3.69 See_Comment L [Au tomated message] The system [employer] generated this result transmitted ref erence range: 4.63 - 6 .08 M/L. The refe rence range was not u sed to interpret this result as normal/abnor mal. MCHC (test code = 786-4) 29.6 See_Comment L [A utomated message] The system [employer] generated this result transmitted ref erence range: [...] See_Comment [Aut omated message] 777-3) The system [employer] generated this result transmitted ref erence range: 150 - 45 0 K/CU MM. The referen ce range was not u sed to interpret this result as normal/abnor mal. MPV (test code = 10.5 fL 9.4-12.4 79433-1) nRBC (test code = 413) 0 See_Comment [Aut omated message] The system [employer] generated this result transmitted ref erence range: 0 - 0 /1 00 WBC. The refere nce range was not u sed to interpret this result as normal/abnor mal. Lab Interpretation (test Abnormal code = 17990-0) [facility] (Hemogram only)2021-03-28 23:08:00 Test Item Value Reference Range Interpretation Comments WBC (test code = 6690-2) 11.6 See_Comment H [A utomated message] The system [employer] generated this result transmitted ref erence range: 3.5 - 10 .5 K/L. The refe rence range was not u sed to interpret this result as normal/abnor mal. RBC (test code = 789-8) 3.69 See_Comment L [Au tomated message] The system [employer] generated this result transmitted ref erence range: 4.63 - 6 .08 M/L. The refe rence range was not u sed to interpret this result as normal/abnor mal. MCHC (test code = 786-4) 29.6 See_Comment L [A utomated message] The system [employer] generated this result transmitted ref erence range: [...] See_Comment [Aut omated message] 777-3) The system [employer] generated this result transmitted ref erence range: 150 - 45 0 K/CU MM. The referen ce range was not u sed to interpret this result as normal/abnor mal. MPV (test code = 10.5 fL 9.4-12.4 36191-3) nRBC (test code = 413) 0 See_Comment [Aut omated message] The system [employer] generated this result transmitted ref erence range: 0 - 0 /1 00 WBC. The refere nce range was not u sed to interpret this result as normal/abnor mal. Lab Interpretation (test Abnormal code = 16143-3) [facility] (Hemogram only)2021-03-28 23:08:00 Test Item Value Reference Range Interpretation Comments WBC (test code = 6690-2) 11.6 See_Comment H [A utomated message] The system [employer] generated this result transmitted ref erence range: 3.5 - 10 .5 K/L. The refe rence range was not u sed to interpret this result as normal/abnor mal. RBC (test code = 789-8) 3.69 See_Comment L [Au tomated message] The system [employer] generated this result transmitted ref erence range: 4.63 - 6 .08 M/L. The refe rence range was not u sed to interpret this result as normal/abnor mal. MCHC (test code = 786-4) 29.6 See_Comment L [A utomated message] The system [employer] generated this result transmitted ref erence range: [...] See_Comment [Aut omated message] 777-3) The system [employer] generated this result transmitted ref erence range: 150 - 45 0 K/CU MM. The referen ce range was not u sed to interpret this result as normal/abnor mal. MPV (test code = 10.5 fL 9.4-12.4 95761-6) nRBC (test code = 413) 0 See_Comment [Aut omated message] The system [employer] generated this result transmitted ref erence range: 0 - 0 /1 00 WBC. The refere nce range was not u sed to interpret this result as normal/abnor mal. Lab Interpretation (test Abnormal code = 13748-0) [facility] (HEMOGRAM ONLY)2021-03-28 23:08:00 Test Item Value [...] code = 413) RAD, ABDOMEN/KUB, 1 VIEW [id number] 22:32:00Reason for exam:->PEG tubeReason for exam:->Distended abdomen [facility] : 1945 Sex: [...] Date/Time: 03/28/2021 22:32:51 Reading Location: [facility] Consult Reading Room RAD, CHEST, 1 VIEW, NON [id number] 22:25:00Reason for exam:->COVID PNA [facility] : 1945 Sex: MFINAL REPORT INDICATION: COVID PNA COMPARISON: None TECHNIQUE: Single frontal view of thechest. IMPRESSION: Lungs and pleura: Hypoinflated lungs with mild bibasilar hazy lung opacities thatare nonspecific but compatible with multifocal atypical pneumonia. No effusion.Heart and mediastinum: Normal heart size. Unremarkable mediastinal contours.Osseous structures: No acute abnormality. Partially imaged left humerus fixation hardware.Other: There is a gastric band present. Cholecystectomy clips present within the right upper quadrant. Signed: Sasha Wongort Verified Date/Time: 03/28/2021 22:25:25 XR chest 1 view portable / [id number] 22:25:00Interface, External Ris In - 03/28/2021 10:27 PM CDTFINAL REPORT INDICATION: COVID PNA COMPARISON: None TECHNIQUE: Single frontal view of the chest. IMPRESSION: Lungs and pleura: Hypoinflated lungs with mild bibasilar hazy lung opacities that are nonspecific but compatible with multifocal atypical pneumonia. No effusion.Heart and mediastinum: Normal heart size. Unremarkable mediastinal contours.Osseous structures: No acute abnormality. Partially imaged left humerus fixation hardw are.Other: There is a gastric band present. Cholecystectomy clips present within the right upper quadrant. Signed: Sasha Wong Verified Date/Time: 03/28/2021 22:25:25 [facility]
[2023-05-11] MEDS ORDERED: NOREPINEPHRINE BITARTRATE/D5W 4 MG/250 ML BAG IV ONE (10:25)
--- NOTE | 2023-05-11 11:06 | ER ---
Nurse's Notes [facility] Name: Zbigniew Mitchell Age: 77 yrs Sex: Male : 1945 Arrival Date: 05/11/2023 Time: 10:04 Bed 2 Private MD: Diagnosis: Cardiac arrest, cause unspecified;Shortness of breath Presentation: 05/11 10:55 Chief complaint: EMS states: SOB AMS. 60%RA. 90% with NRB. 80's systolic BP. Dyspnea ll1 rate 20. Unresponsive. Chief complaint: Patient states: SOB for 2 days. Coronavirus screen: Client denies travel out of the [place] in the last 14 days. At this time, the client does not indicate any symptoms associated with coronavirus-19. Ebola Screen: Patient denies travel to an Ebola-affected area in the 21 days before illness onset. Initial Sepsis Screen: Does the patient meet any 2 criteria? Systolic BP < 90 mmHg. Altered Mental Status. HR > 90 bpm. No. Patient's initial sepsis screen is negative. Risk Assessment: Do you want to hurt yourself or someone else? Patient reports no desire to harm self or others. Onset of symptoms was May 10, 2023. 10:55 Method Of Arrival: EMS: [facility] ll1 10:55 Acuity: ANDRE 1 ll1 13:19 Care prior to arrival: None. Compressions began at 10:17. ll1 13:21 Initial Sepsis Screen: Does the patient have a suspected source of infection? No. ll1 Patient's initial sepsis screen is negative. Triage Assessment: 10:10 General: Appears uncomfortable, ill. General: Behavior is unresponsive. Pain: Denies ll1 pain. Neuro: No deficits noted. Cardiovascular: Rhythm is atrial fibrillation. Respiratory: Airway is patent Trachea midline Respiratory effort is gasping, shallow, weak, Respiratory pattern is Kussmaul gasping Breath sounds are diminished bilaterally. 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 - Social history:: Smoking status: unknown. Screenin:19 [facility] ED Fall Risk Assessment (Adult) Score/Fall Risk Level 0 - 2 = Low Risk ll1 Oriented to surroundings, Maintained a safe environment, Educated pt \T\ family on fall prevention, incl call for assistance when getting out of bed, Hourly rounding (assess needs \T\ fall precautionary measures) done. Abuse screen: Denies threats or abuse. Nutritional screening: No deficits noted. Tuberculosis screening: No symptoms or risk factors identified. Assessment: 10:17 Reassessment: See CPR flow sheet for CODE details. ll1 10:17 CPR assessment: unresponsive, pulses present w/ compressions. ll1 11:27 Reassessment: [employer] contacted. Not a candidate for donation. ll1 Vital Signs: 10:16 BP 76 / 65; Pulse 124; Resp 18; ll1 10:48 BP 0 / 0; Pulse 0; Resp 0; Temp 96.7; ll1 10:55 BP 65 / 29; Pulse 115; Resp 20; Pulse Ox 94% on Non-rebreather mask; FiO2 100 %; Weight ll1 86.18 kg; Pain 0/10; 10:55 Pain Scale: Adult [facility] [place] ED Course: 10:11 Patient arrived in ED. ld1 10:11 Arm band placed on Patient placed in an exam room, on a stretcher. ll1 10:11 Client placed on continuous cardiac and pulse oximetry monitoring. NIBP monitoring ll1 applied. football pad repairer on. 10:17 Jean Gomez DO is Attending Physician. rn 10:58 Triage completed. ll1 11:00 Accessed I\T\O L tib/fib. ll1 11:03 Jean Gomez DO is Pronouncing Provider. ms3 11:[address] [place] [address] to have tribal judge come to er. bd 13:19 No provider procedures requiring assistance completed. Patient admitted, IV remains in ll1 place. 13:21 Provided Education on: n/a. ll1 13:21 Patient has correct armband on for positive identification. Bed in low position. Call 1 light in reach. 13:23 Sheba Tavera, RN is Primary Nurse. ll1 Administered Medications: No medications were administered Medication: 13:21 VIS not applicable for this client. ll1 Outcome: 13:19 Patient : Time of 10:48 Pronounced by Jean Elliott MD notified ll1 13:19 Condition: 13:19 Instructed on expiration paperwork completed 13:21 Outcome Patient ll1 14:28 Patient left the ED. 1 Signatures: Belén Lewis Roman, MD MD rn Lewis, NOEL Scruggs RN ll1 Jean Gomez DO DO ms3 Marisol Gomez RN RN ld1 Corrections: (The following items were deleted from the chart) 11:03 10:16 BP 76 / 65; Pulse 124bpm; Resp 18bpm; No pulse, PEA. CPR started; 1 ll1 13:22 10:48 BP 0 / 0; Pulse 0bpm; Resp 0bpm; ll1 ll1
--- NOTE | 2023-05-11 14:29 | EDPHYS ---
Physician Documentation [facility] Name: Zbigniew Mitchell Age: 77 yrs Sex: Male : 1945 Arrival Date: 05/11/2023 Time: 10:04 Bed 2 Private MD: ED Physician Jean Gomez HPI: 05/11 11:06 This 77 yrs old Male presents to ER via EMS with complaints of shortness of breath. ms3 11:06 77-year-old male with unknown past medical history presents via [facility] for ms3 shortness of breath that began yesterday. EMS noted patient to be hypotensive on their arrival. EMS states patient has a history of COPD and atrial fibrillation. EMS was unable to obtain IV access.. 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 - Social history:: Smoking status: unknown. ROS: 11:06 Unable to obtain ROS due to Unresponsive, ms3 Exam: 11:06 Constitutional: The patient appears in obvious distress, obviously ill, pale, ms3 11:06 Head/face: Exam is negative for obvious evidence of injury or deformity, 11:06 Eyes: Periorbital structures: appear normal, Pupils: dilated, bilaterally, Conjunctiva: normal, 11:06 Neck: External neck: is normal, no acute changes, 11:06 Chest/axilla: Inspection: normal, no acute changes, 11:06 Cardiovascular: Rate: tachycardic, Rhythm: Atrial fibrillation, Pulses: weak, Vital Signs: 10:16 BP 76 / 65; Pulse 124; Resp 18; ll1 10:48 BP 0 / 0; Pulse 0; Resp 0; Temp 96.7; ll1 10:55 BP 65 / 29; Pulse 115; Resp 20; Pulse Ox 94% on Non-rebreather mask; FiO2 100 %; Weight ll1 86.18 kg; Pain 0/10; 10:55 Pain Scale: Adult ll1 Procedures: 11:19 CPR: See CPR flow sheet. Initial patient assessment: unresponsive, cyanotic, pale, The ms3 presenting cardiac rhythm is Atrial fibrillation with RVR. Compressions: began at 10:17. Meds given: See Meds list. Epinephrine Amiodarone, Defibrillation: 200 joules X 4. despite ED evaluation and treatment, the patient . CPR was stopped at 10:48. Intubation: Intubated orally using 4 Glidescope blade with 7.5 mm ETT. was successful on first attempt. Ventilated with Ambu bag. Tube secured with ETT carrasquillo Placement verified by CO2 detector with (+) color change, auscultating bilateral breath sounds. 12:00 Central Line: the site was prepped with in sterile fashion, chlorhexidine, a triple rn lumen catheter was inserted, in the right femoral vein, in 1 attempts. placement was verified, by blood return, the site was dressed with Tegaderm, using sterile technique, the patient tolerated the procedure, well. MDM: 11:03 Patient medically screened. ms3 11:16 Differential diagnosis: arrythmia, cardiac arrest, respiratory arrest. Data reviewed: ms3 vital signs, nurses notes. I considered the following discharge prescriptions or medication management in the emergency department Medications were administered in the Emergency Department. See MAR. Independent interpretation of the following test(s) in the Emergency Department vc++ developer: Initial rhythm A fib with RVR. Please see code sheet for rhythm changes through code blue. Historians other than the Patient: EMS: [facility]. Care significantly affected by the following chronic conditions: Chronic Obstructive Pulmonary Disease. ED course: On arrival patient unresponsive, diminished breath sounds bilaterally, hypotensive. IO access was established in the left proximal tibia and Levophed was started. Shortly after starting Levophed patient lost pulses and ACLS was started. Patient received a total of 4 mg epinephrine, 1 g calcium chloride, 300 mg amiodarone during code. Discussed case with Albin Mitchell, patient's older brother, who states patient does not have family in the [place] area. Patient's brother can be reached by phone number [phone].. 05/11 10:48 Order name: Cardiac monitoring; Complete Time: 11:38 ll1 05/11 10:48 Order name: Labs collected and sent; Complete Time: 11:37 ll1 05/11 10:48 Order name: O2 Per Protocol; Complete Time: 11:37 ll1 05/11 10:48 Order name: O2 Sat Monitoring; Complete Time: 11:37 ll1 Administered Medications: No medications were administered Disposition: 15:30 Chart complete. ms3 Disposition Summary: 05/11/23 11:05 Patient Notes: Location: [employer] Developer ms3 Pronouncing Physician: Jean Gomez ms3 Time of : 10:48 05/11/2023 ms3 Diagnosis - Cardiac arrest, cause unspecified ms3 - Shortness of breath ms3 Signatures: Dispatcher [employer] EDMS Rio Oconnor MD MD rn Lewis, Lynsay, RN RN [facility] Jean Gomez, DO ms3 Corrections: (The following items were deleted from the chart) 10:54 10:49 Chest Single View+RAD.RAD.BRZ ordered. [facility] 11:38 10:48 EKG - Nurse/Tech ordered. [place] [id number] 11:38 10:48 IV Saline Lock ordered. [place] [id number] 12:01 11:19 Intubation: Intubated orally using 4 Glidescope blade with 7.5 mm ETT. was ms3 successful on first attempt. Ventilated with Ambu bag. Tube secured with ETT carrasquillo ms3
[2023-05-11 14:50] VITALS: TEMP 96.7
[2023-05-11 14:52] VITALS: BP 65/29; O2SAT 94
== END 2023-05-11 14:28 ==
LOC: ER 10:04
PROC: 5A1935Z Respiratory Ventilation, Less than 24 Consecutive Hours (ICD-10-PCS; principal; 2023-05-11)
PROC: 06HM33Z Insertion of Infusion Device into Right Femoral Vein, Percutaneous Approach (ICD-10-PCS; 2023-05-11)
DX: I46.9 Cardiac arrest, cause unspecified (principal); J44.9 Chronic obstructive pulmonary disease, unspecified; F31.9 Bipolar disorder, unspecified; Z88.0 Allergy status to penicillin
CPT/HCPCS: 31500; 92950; 99291; 94002; 36556; J0282; J0171; J7030